=== PATIENT | female | born 1940 | race Two or more races ===

== ENCOUNTER 2017-09-11 16:42 | Inpatient (IN) | payer MEDICARE, MEDICAID ==
[~2017-09-11] VITALS: Ht 162.6 cm; Wt 35.4 kg
[2017-09-11] VITALS (7 sets, daily range): BP systolic 103–128; BP diastolic 43–58
[~2017-09-11 16:42] MED LIST: ATENOLOL50 MG ORAL; DOK100 M1 PO; FOLIC ACID1 MG ORAL; FOSAMAX70 MG ORAL; GLUCOSAMINE SU500 M2 PO; LOSARTAN POTAS100 MG ORAL; MAPAP500 M2 PO; METHOTREXATE2.5 MG PO; OMEPRAZOLE20 M2 ORAL; OYSTER SHELL C1 EA11 PO; PLAQUENIL200 MG ORAL; TRAMADOL HCL50 MG ORAL; VITAMIN B-12250 MCG PO; VITAMIN D1000 UNI1 ORAL
[2017-09-11] MEDS ORDERED: Nitroglycerin 2% oint pkt TOPIC ONE (17:00)
[2017-09-11 17:10] LABS: HEMATOCRIT 25.5 % (37.0-47.0); HEMOGLOBIN 8.4 G/DL (12.0-16.0); MEAN CORPUSCULAR VOLUME 99 FL (80-99); MONOCYTES % (AUTO) 6.6 % (1.0-10.0); NEUTROPHILS % (AUTO) 90.1 % (45.0-75.0); PLATELET COUNT 198 K/UL (150-450); RED BLOOD COUNT 2.56 M/UL (4.20-5.40); RED CELL DISTRIBUTION WIDTH 12.4 % (11.6-14.8); WHITE BLOOD COUNT 17.8 K/UL (4.8-10.8)
[2017-09-11 17:11] LABS: BASOPHILS % (AUTO) 0.3 % (0.0-2.0)
[2017-09-11 17:20] LABS: INR 1.1 (0.9-1.1)
[2017-09-11 17:24] LABS: ANION GAP 8 mmol/L (5-15); BLOOD UREA NITROGEN 38 mg/dL (7-18); CALCIUM 9.3 MG/DL (8.5-10.1); CARBON DIOXIDE 23 MMOL/L (21-32); CHLORIDE 98 MMOL/L (98-107); CREATININE 1.1 MG/DL (0.55-1.30); POTASSIUM 4.8 MMOL/L (3.5-5.1); SODIUM 129 MMOL/L (136-145)
[2017-09-11 17:35] LABS: ALANINE AMINOTRANSFERASE 122 U/L (12-78); ALBUMIN 2.4 G/DL (3.4-5.0); ALBUMIN/GLOBULIN RATIO 0.5 (1.0-2.7); ALKALINE PHOSPHATASE 547 U/L (46-116); ASPARTATE AMINO TRANSFERASE 118 U/L (15-37); BILIRUBIN,TOTAL 0.8 MG/DL (0.2-1.0); CKMB 3.4 NG/ML (0.0-3.6); CREATINE KINASE 45 U/L (26-308)
[2017-09-11 23:06] LABS: APPEARANCE,URINE SLIGHTLY CLOUDY; BILIRUBIN, URINE NEGATIVE (NEGATIVE); GLUCOSE, URINE (UA) NEGATIVE (NEGATIVE); KETONES,URINE NEGATIVE (NEGATIVE); LEUKOCYTE ESTERASE ,URINE 2+ (NEGATIVE); NITRITE,URINE POSITIVE (NEGATIVE); PH,URINE 5 (4.5-8.0); PROTEIN,URINE 1+ (NEGATIVE); UROBILINOGEN,URINE NORMAL MG/DL (0.0-1.0)
[2017-09-11 23:07] LABS: COLOR,URINE YELLOW
[2017-09-11] MEDS: Albuterol/Ipratropium 3ml neb HHN SCH (23:15)
[2017-09-11] MEDS ORDERED: Vancomycin 1 GM in D5W 275 ML IVPB ONE (23:15)
[2017-09-11] MEDS ORDERED: Albuterol/Ipratropium 3ml neb HHN PRN (23:15)
[2017-09-12] VITALS (24 sets, daily range): BP systolic 95–145; BP diastolic 41–68
--- NOTE | 2017-09-12 00:12 | Emergency Room Report ---
History of Present Illness General Chief Complaint: Dyspnea/Respdistress Source: Patient, EMS Present Illness HPI This patient presents with shortness of breath. She states that her symptoms started this morning. She denies chest pain. She denies abdominal pain. She denies recent illness. She denies cough or congestion. She had a recently been started on different psychiatric medications for some auditory hallucinations and depression. She has been seen at [facility] for this and underwent a thorough evaluation. She also had some recent development of swelling in her skin. She denies fever or chills. She denies nausea or vomiting. She denies headache or neck pain. She is brought in by EMS and per report she had oxygen saturations in the mid-80s in the field. She did have improvement on nonrebreather mask. She has no other complaints. Allergies: Coded Allergies: No Known Allergies (Verified , 11/18/08) Patient History Past Medical History: see triage record, HTN, GERD, psych hx, other - arthritis Social History: Denies: smoking, alcohol use, drug use Reviewed Nursing Documentation: PMH: Agreed, PSxH: Agreed Nursing Documentation-PMH Past Medical History: No History, Except For Hx Cardiac Problems: Yes Hx Hypertension: Yes Hx Diabetes: Yes Hx Cancer: No Hx Gastrointestinal Problems: Yes History Of Psychiatric Problem: Yes Hx Neurological Problems: No Review of Systems All Other Systems: negative except mentioned in HPI Physical Exam Vital Signs Date Time Temp Pulse Resp B/P (MAP) Pulse Ox O2 Delivery O2 Flow Rate FiO2 09/11/17 16:40 96.4 65 24 118/57 94 Non-Rebreather 15.0 96.4 09/11/17 17:06 97 Sp02 EP Interpretation: reviewed, abnormal General Appearance: no apparent distress, alert, GCS 15, non-toxic Head: normocephalic, atraumatic Eyes: bilateral eye normal inspection, bilateral eye PERRL ENT: hearing grossly normal, normal pharynx, no angioedema, normal voice Neck: full range of motion, supple/symm/no masses Respiratory: no accessory muscle use, respiratory distress, rales, rhonchi, speaking full sentences Cardiovascular #1: regular rate, rhythm, no edema Gastrointestinal: normal bowel sounds, non tender, soft, non-distended, no guarding, no rebound Rectal: deferred Musculoskeletal: back normal, normal range of motion, non-tender Neurologic: alert, responsive, motor strength/tone normal, sensory intact, speech normal Psychiatric: judgement/insight normal, memory normal, mood/affect normal, no suicidal/homicidal ideation Skin: normal color, no rash, warm/dry, well hydrated Medical Decision Making Diagnostic Impression: Primary Impression: ARDS (adult respiratory distress syndrome) Additional Impressions: Pulmonary edema Transaminitis Anemia UTI (urinary tract infection) ER Course This patient presented in respiratory distress. Chest x-ray was consistent with ARDS. She has had an elevated white blood cell count so I am concerned that she could have an underlying pneumonia. Therefore, she was given broad- spectrum antibiotics. She's also placed on BiPAP to improve her work of breathing. She had an excellent response to the BiPAP. Urinalysis is consistent with a urinary tract infection. Unsure of the etiology of the patient's ARDS. It could be influenza. The patient is admitted to the ICU. This patient is critically ill. This patient required complex medical decision- making, aggressive intervention, extensive laboratory workup and monitoring. Critical care time: 40 minutes. Laboratory Tests Test 09/11/17 16:50 09/11/17 18:06 09/11/17 22:46 White Blood Count 17.8 K/UL (4.8-10.8) H Red Blood Count 2.56 M/UL (4.20-5.40) L Hemoglobin 8.4 G/DL (12.0-16.0) L Hematocrit 25.5 % (37.0-47.0) L Mean Corpuscular Volume 99 FL (80-99) Mean Corpuscular Hemoglobin 32.8 PG (27.0-31.0) H Mean Corpuscular Hemoglobin Concent 33.0 G/DL (32.0-36.0) Red Cell Distribution Width 12.4 % (11.6-14.8) Platelet Count 198 K/UL (150-450) Mean Platelet Volume 8.5 FL (6.5-10.1) Neutrophils (%) (Auto) 90.1 % (45.0-75.0) H Lymphocytes (%) (Auto) 3.0 % (20.0-45.0) L Monocytes (%) (Auto) 6.6 % (1.0-10.0) Eosinophils (%) (Auto) 0.0 % (0.0-3.0) Basophils (%) (Auto) 0.3 % (0.0-2.0) Prothrombin Time 11.2 SEC (9.30-11.50) Prothrombin Time INR 1.1 (0.9-1.1) PTT 27 SEC (23-33) Sodium Level 129 MMOL/L (136-145) L Potassium Level 4.8 MMOL/L (3.5-5.1) Chloride Level 98 MMOL/L (98-107) Carbon Dioxide Level 23 MMOL/L (21-32) Anion Gap 8 mmol/L (5-15) Blood Urea Nitrogen 38 mg/dL (7-18) H Creatinine 1.1 MG/DL (0.55-1.30) Estimate Glomerular Filtration Rate mL/min (>60) Glucose Level 259 MG/DL (74-106) H Lactic Acid Level 1.60 mmol/L (0.66-2.22) Calcium Level 9.3 MG/DL (8.5-10.1) Total Bilirubin 0.8 MG/DL (0.2-1.0) Aspartate Amino Transferase (AST) 118 U/L (15-37) H Alanine Aminotransferase (ALT) 122 U/L (12-78) H Alkaline Phosphatase 547 U/L (46-116) H Total Creatine Kinase 45 U/L (26-308) Creatine Kinase MB 3.4 NG/ML (0.0-3.6) Creatine Kinase MB Relative Index 7.5 Troponin I 0.000 ng/mL (0.000-0.056) Pro-B-Type Natriuretic Peptide 6971 pg/mL (0-125) H Total Protein 7.0 G/DL (6.4-8.2) Albumin 2.4 G/DL (3.4-5.0) L Globulin 4.6 g/dL Albumin/Globulin Ratio 0.5 (1.0-2.7) L Arterial Blood pH 7.373 (7.350-7.450) Arterial Blood Partial Pressure CO2 35.7 mmHg (35.0-45.0) Arterial Blood Partial Pressure O2 112.0 mmHg (75.0-100.0) H Arterial Blood HCO3 20.3 mmol/L (22.0-26.0) L Arterial Blood Oxygen Saturation 97.4 % (92.0-98.0) Arterial Blood Base Excess -4.4 Luis A Test Positive Urine Color Yellow Urine Appearance Slightly cloudy Urine pH 5 (4.5-8.0) Urine Specific [place] 1.010 (1.005-1.035) Urine Protein 1+ (NEGATIVE) H Urine Glucose (UA) Negative (NEGATIVE) Urine Ketones Negative (NEGATIVE) Urine Occult Blood 3+ (NEGATIVE) H Urine Nitrite Positive (NEGATIVE) H Urine Bilirubin Negative (NEGATIVE) Urine Urobilinogen Normal MG/DL (0.0-1.0) Urine Leukocyte Esterase 2+ (NEGATIVE) H Urine RBC 2-4 /HPF (0 - 2) H Urine WBC 5-10 /HPF (0 - 2) H Urine Squamous Epithelial Cells Occasional /LPF Urine Bacteria Many /HPF (NONE) H Microbiology Date/Time Source Procedure Growth Status 09/11/17 17:30 Nasal Nares Influenza Types A,B Antigen (MOOKIE) - Final Complete EKG Diagnostic Results Rate: normal Rhythm: NSR ST Segments: no acute changes Rhythm Strip Diag. Results EP Interpretation: yes Rate: 60's Rhythm: NSR, no PVC's, no ectopy Chest X-Ray Diagnostic Results Chest X-Ray Diagnostic Results : Chest X-Ray Ordered: Yes # of Views/Limited/Complete: 1 View Indication: Shortness of Breath EP Interpretation: Yes Interpretation: other - diffuse opacities Last Vital Signs Date Time Temp Pulse Resp B/P (MAP) Pulse Ox O2 Delivery O2 Flow Rate FiO2 09/11/17 23:35 96.9 69 20 128/48 96 Bi-pap 15.0 100 96.9 Disposition: ADMITTED INPATIENT Condition: Critical Referrals: PRABHU BULL (PCP) CHRISTY SANCHEZ D.O. Sep 12, 2017 00:12
[2017-09-12] MEDS ORDERED: Vancomycin 1gm inj IVPB ONE (00:48)
[2017-09-12] MEDS ORDERED: Zosyn 3.375gm inj ONE (00:48)
[2017-09-12] MEDS: Piperacillin/Tazobactam 3.375 GM in NS 110 ML IVPB SCH ×3 (01:04→15:04)
[2017-09-12] MEDS: D5NS 1,000 ML IV SCH ×3 (01:04→20:00)
[2017-09-12 05:28] LABS: HEMATOCRIT 24.7 % (37.0-47.0); HEMOGLOBIN 8.5 G/DL (12.0-16.0); MEAN CORPUSCULAR VOLUME 100 FL (80-99); PLATELET COUNT 164 K/UL (150-450); RED BLOOD COUNT 2.47 M/UL (4.20-5.40); RED CELL DISTRIBUTION WIDTH 12.1 % (11.6-14.8); WHITE BLOOD COUNT 21.5 K/UL (4.8-10.8)
[2017-09-12] MEDS ORDERED: Heparin 5000 units/ml inj SUBQ SCH (06:00)
[2017-09-12 06:18] LABS: ALANINE AMINOTRANSFERASE 91 U/L (12-78); ALBUMIN 2.1 G/DL (3.4-5.0); ALBUMIN/GLOBULIN RATIO 0.5 (1.0-2.7); ALKALINE PHOSPHATASE 427 U/L (46-116); ANION GAP 13 mmol/L (5-15); ASPARTATE AMINO TRANSFERASE 62 U/L (15-37); BILIRUBIN,TOTAL 0.6 MG/DL (0.2-1.0); BLOOD UREA NITROGEN 33 mg/dL (7-18); CALCIUM 9.1 MG/DL (8.5-10.1); CARBON DIOXIDE 20 MMOL/L (21-32); CHLORIDE 101 MMOL/L (98-107); PHOSPHORUS 4.6 MG/DL (2.5-4.9); POTASSIUM 4.8 MMOL/L (3.5-5.1); SODIUM 134 MMOL/L (136-145)
[2017-09-12] MEDS: Albuterol/Ipratropium 3ml neb HHN SCH ×3 (07:48→22:36)
[2017-09-12] MEDS: Heparin 5000 units/ml inj SUBQ SCH ×2 (08:12→17:00)
--- NOTE | 2017-09-12 10:14 | History & Physical ---
History and Physical History & Physicial Jesus Barahona MD Sep 12, 2017 10:14
--- NOTE | 2017-09-12 10:18 | Cardiac Electrophysiology PN ---
Subjective Subjective [id number]. Cardiology Consult dictated and DW CHIEF INFORMATICS OFFICER and Jun Objective Last 24 Hour Vital Signs Date Time Temp Pulse Resp B/P (MAP) Pulse Ox O2 Delivery O2 Flow Rate FiO2 09/12/17 09:00 69 09/12/17 09:00 72 35 107/52 95 Bi-pap 100 09/12/17 08:00 100 09/12/17 08:00 98.8 71 33 114/42 97 Bi-pap 100 98.8 09/12/17 07:51 68 35 97 Bi-pap 100 09/12/17 07:01 72 34 96 Facial 100 09/12/17 07:00 68 33 108/46 98 Bi-pap 100 09/12/17 06:00 68 33 118/42 98 Bi-pap 100 09/12/17 05:30 64 39 99 Facial 100 09/12/17 05:00 65 32 98/55 99 Bi-pap 100 09/12/17 04:00 98.1 67 25 95/55 97 Bi-pap 100 98.1 09/12/17 04:00 69 09/12/17 03:31 66 40 99 Facial 100 09/12/17 03:00 68 27 100/54 98 Bi-pap 100 09/12/17 02:00 67 27 116/44 100 Bi-pap 100 09/12/17 01:23 67 38 97 Facial 100 09/12/17 01:00 97.9 67 32 123/49 99 Bi-pap 100 97.9 09/12/17 01:00 100 09/12/17 01:00 100 09/12/17 00:35 96.9 63 20 113/68 95 Bi-pap 15.0 100 96.9 09/12/17 00:31 96.9 63 20 113/68 95 Bi-pap 15.0 100 96.9 09/12/17 00:30 70 09/11/17 23:35 96.9 69 20 128/48 96 Bi-pap 15.0 100 96.9 09/11/17 23:01 60 40 100 Facial 100 09/11/17 22:18 96.9 62 33 117/58 98 Bi-pap 15.0 100 96.9 09/11/17 21:30 96.9 62 31 126/45 100 Bi-pap 15.0 100 96.9 09/11/17 21:30 62 30 100 Facial 100 09/11/17 20:30 96.9 62 33 125/45 99 Bi-pap 15.0 100 96.9 09/11/17 19:30 15.0 100 09/11/17 19:29 96.9 60 31 122/53 100 Bi-pap 15.0 100 96.9 09/11/17 18:32 60 25 100 Facial 100 09/11/17 18:29 96.4 61 24 103/48 99 Bi-pap 15.0 100 96.4 09/11/17 17:06 96.4 71 35 121/43 97 Non-Rebreather 15.0 96.4 09/11/17 17:06 71 35 Non-Rebreather 15.0 97 09/11/17 16:40 96.4 65 24 118/57 94 Non-Rebreather 15.0 96.4 Intake and Output 09/11/17 09/12/17 19:00 07:00 Intake Total 532.5 ml Balance 532.5 ml Intake IV Total 532.5 ml # Voids 1 Laboratory Tests Test 09/11/17 16:50 09/11/17 18:06 09/11/17 22:46 09/12/17 04:45 White Blood Count 17.8 K/UL (4.8-10.8) H 21.5 K/UL (4.8-10.8) H Red Blood Count 2.56 M/UL (4.20-5.40) L 2.47 M/UL (4.20-5.40) L Hemoglobin 8.4 G/DL (12.0-16.0) L 8.5 G/DL (12.0-16.0) L Hematocrit 25.5 % (37.0-47.0) L 24.7 % (37.0-47.0) L Mean Corpuscular Volume 99 FL (80-99) 100 FL (80-99) H Mean Corpuscular Hemoglobin 32.8 PG (27.0-31.0) H 34.4 PG (27.0-31.0) H Mean Corpuscular Hemoglobin Concent 33.0 G/DL (32.0-36.0) 34.4 G/DL (32.0-36.0) Red Cell Distribution Width 12.4 % (11.6-14.8) 12.1 % (11.6-14.8) Platelet Count 198 K/UL (150-450) 164 K/UL (150-450) Mean Platelet Volume 8.5 FL (6.5-10.1) 8.8 FL (6.5-10.1) Neutrophils (%) (Auto) 90.1 % (45.0-75.0) H % (45.0-75.0) Lymphocytes (%) (Auto) 3.0 % (20.0-45.0) L % (20.0-45.0) Monocytes (%) (Auto) 6.6 % (1.0-10.0) % (1.0-10.0) Eosinophils (%) (Auto) 0.0 % (0.0-3.0) % (0.0-3.0) Basophils (%) (Auto) 0.3 % (0.0-2.0) % (0.0-2.0) Prothrombin Time 11.2 SEC (9.30-11.50) Prothromb Time International Ratio 1.1 (0.9-1.1) Activated Partial Thromboplast Time 27 SEC (23-33) Sodium Level 129 MMOL/L (136-145) L 134 MMOL/L (136-145) L Potassium Level 4.8 MMOL/L (3.5-5.1) 4.8 MMOL/L (3.5-5.1) Chloride Level 98 MMOL/L (98-107) 101 MMOL/L (98-107) Carbon Dioxide Level 23 MMOL/L (21-32) 20 MMOL/L (21-32) L Anion Gap 8 mmol/L (5-15) 13 mmol/L (5-15) Blood Urea Nitrogen 38 mg/dL (7-18) H 33 mg/dL (7-18) H Creatinine 1.1 MG/DL (0.55-1.30) 1.0 MG/DL (0.55-1.30) Estimat Glomerular Filtration Rate mL/min (>60) mL/min (>60) Glucose Level 259 MG/DL (74-106) H 153 MG/DL (74-106) #H Lactic Acid Level 1.60 mmol/L (0.66-2.22) Calcium Level 9.3 MG/DL (8.5-10.1) 9.1 MG/DL (8.5-10.1) Total Bilirubin 0.8 MG/DL (0.2-1.0) 0.6 MG/DL (0.2-1.0) Aspartate Amino Transf (AST/SGOT) 118 U/L (15-37) H 62 U/L (15-37) H Alanine Aminotransferase (ALT/SGPT) 122 U/L (12-78) H 91 U/L (12-78) H Alkaline Phosphatase 547 U/L (46-116) H 427 U/L (46-116) H Total Creatine Kinase 45 U/L (26-308) Creatine Kinase MB 3.4 NG/ML (0.0-3.6) Creatine Kinase MB Relative Index 7.5 Troponin I 0.000 ng/mL (0.000-0.056) 0.000 ng/mL (0.000-0.056) Pro-B-Type Natriuretic Peptide 6971 pg/mL (0-125) H Total Protein 7.0 G/DL (6.4-8.2) 6.4 G/DL (6.4-8.2) Albumin 2.4 G/DL (3.4-5.0) L 2.1 G/DL (3.4-5.0) L Globulin 4.6 g/dL 4.3 g/dL Albumin/Globulin Ratio 0.5 (1.0-2.7) L 0.5 (1.0-2.7) L Arterial Blood pH 7.373 (7.350-7.450) Arterial Blood Partial Pressure CO2 35.7 mmHg (35.0-45.0) Arterial Blood Partial Pressure O2 112.0 mmHg (75.0-100.0) H Arterial Blood HCO3 20.3 mmol/L (22.0-26.0) L Arterial Blood Oxygen Saturation 97.4 % (92.0-98.0) Arterial Blood Base Excess -4.4 Luis A Test Positive Urine Color Yellow Urine Appearance Slightly cloudy Urine pH 5 (4.5-8.0) Urine Specific [place] 1.010 (1.005-1.035) Urine Protein 1+ (NEGATIVE) H Urine Glucose (UA) Negative (NEGATIVE) Urine Ketones Negative (NEGATIVE) Urine Occult Blood 3+ (NEGATIVE) H Urine Nitrite Positive (NEGATIVE) H Urine Bilirubin Negative (NEGATIVE) Urine Urobilinogen Normal MG/DL (0.0-1.0) Urine Leukocyte Esterase 2+ (NEGATIVE) H Urine RBC 2-4 /HPF (0 - 2) H Urine WBC 5-10 /HPF (0 - 2) H Urine Squamous Epithelial Cells Occasional /LPF Urine Bacteria Many /HPF (NONE) H Differential Total Cells Counted 100 Neutrophils % (Manual) 94 % (45-75) H Lymphocytes % (Manual) 2 % (20-45) L Monocytes % (Manual) 4 % (1-10) Eosinophils % (Manual) 0 % (0-3) Basophils % (Manual) 0 % (0-2) Band Neutrophils 0 % (0-8) Platelet Estimate Adequate Platelet Morphology Normal Hypochromasia 1+ Macrocytosis 1+ Phosphorus Level 4.6 MG/DL (2.5-4.9) Magnesium Level 1.8 MG/DL (1.8-2.4) Test 09/12/17 06:00 Arterial Blood pH 7.374 (7.350-7.450) Arterial Blood Partial Pressure CO2 35.5 mmHg (35.0-45.0) Arterial Blood Partial Pressure O2 72.5 mmHg (75.0-100.0) L Arterial Blood HCO3 20.2 mmol/L (22.0-26.0) L Arterial Blood Oxygen Saturation 93.4 % (92.0-98.0) Arterial Blood Base Excess -4.4 Luis A Test Positive Microbiology Date/Time Source Procedure Growth Status 09/11/17 17:30 Nasal Nares Influenza Types A,B Antigen (MOOKIE) - Final Complete 09/11/17 22:46 Urine,Clean Catch Urine Culture - Preliminary Gram Negative Bacillus 1 Resulted ROLF OLIVIA Sep 12, 2017 10:18
--- NOTE | 2017-09-12 10:40 | Pulmonolgy Critical Care Note ---
Critical Care - Asmt/Plan Problems: (1) ARDS (adult respiratory distress syndrome) (2) Aspiration pneumonia (3) Protein-calorie malnutrition, severe (4) Diabetes mellitus (5) Anemia Respiratory: monitor respiratory rate, adjust FIO2, CXR, other - titrate bipap Cardiac: continue to monitor HR/BP Renal: F/U I&O, check electrolytes Infectious Disease: check cultures, continue antibiotics Gastrointestinal: hold feedings, other - NGtube feeding, Nutrition consult Endocrine: monitor blood sugar, continue sliding scale insulin Hematologic: monitor H/H, transfuse if hgb<8.5 Neurologic: PRN Ativan Affect: PRN ativan Prophylaxis: Protonix Time Spent (Minutes): 40 Notes Reviewed: tax intern Discussed with: nurses, consultants, complex case managerrecreation facility manager - Objective Last 24 Hour Vital Signs Date Time Temp Pulse Resp B/P (MAP) Pulse Ox O2 Delivery O2 Flow Rate FiO2 09/12/17 09:00 69 09/12/17 09:00 72 35 107/52 95 Bi-pap 100 09/12/17 08:00 100 09/12/17 08:00 98.8 71 33 114/42 97 Bi-pap 100 98.8 09/12/17 07:51 68 35 97 Bi-pap 100 09/12/17 07:01 72 34 96 Facial 100 09/12/17 07:00 68 33 108/46 98 Bi-pap 100 09/12/17 06:00 68 33 118/42 98 Bi-pap 100 09/12/17 05:30 64 39 99 Facial 100 09/12/17 05:00 65 32 98/55 99 Bi-pap 100 09/12/17 04:00 98.1 67 25 95/55 97 Bi-pap 100 98.1 09/12/17 04:00 69 09/12/17 03:31 66 40 99 Facial 100 09/12/17 03:00 68 27 100/54 98 Bi-pap 100 09/12/17 02:00 67 27 116/44 100 Bi-pap 100 09/12/17 01:23 67 38 97 Facial 100 09/12/17 01:00 97.9 67 32 123/49 99 Bi-pap 100 97.9 09/12/17 01:00 100 09/12/17 01:00 100 09/12/17 00:35 96.9 63 20 113/68 95 Bi-pap 15.0 100 96.9 09/12/17 00:31 96.9 63 20 113/68 95 Bi-pap 15.0 100 96.9 09/12/17 00:30 70 09/11/17 23:35 96.9 69 20 128/48 96 Bi-pap 15.0 100 96.9 09/11/17 23:01 60 40 100 Facial 100 09/11/17 22:18 96.9 62 33 117/58 98 Bi-pap 15.0 100 96.9 09/11/17 21:30 96.9 62 31 126/45 100 Bi-pap 15.0 100 96.9 09/11/17 21:30 62 30 100 Facial 100 09/11/17 20:30 96.9 62 33 125/45 99 Bi-pap 15.0 100 96.9 09/11/17 19:30 15.0 100 09/11/17 19:29 96.9 60 31 122/53 100 Bi-pap 15.0 100 96.9 09/11/17 18:32 60 25 100 Facial 100 09/11/17 18:29 96.4 61 24 103/48 99 Bi-pap 15.0 100 96.4 09/11/17 17:06 96.4 71 35 121/43 97 Non-Rebreather 15.0 96.4 09/11/17 17:06 71 35 Non-Rebreather 15.0 97 09/11/17 16:40 96.4 65 24 118/57 94 Non-Rebreather 15.0 96.4 Status: awake Condition: critical HEENT: atraumatic Lungs: clear Heart: HR/BP stable Abdomen: soft, active bowel sounds Extremities: no C/C/E, edema Decubiti: location Micro: Microbiology Date/Time Source Procedure Growth Status 09/11/17 17:30 Nasal Nares Influenza Types A,B Antigen (MOOKIE) - Final Complete 09/11/17 22:46 Urine,Clean Catch Urine Culture - Preliminary Gram Negative Bacillus 1 Resulted Critical Care - Subjective ROS Limited/Unobtainable: Yes ICU Day: 1 Interval Events: 76 year old female with hx of DM, presented from home with shortness of breath. She states that her symptoms started this morning. She denies cough or congestion. She had a recently been started on different psychiatric medications for some auditory hallucinations and depression. She is brought in by EMS and per report she had oxygen saturations in the mid-80s in the field. She did have improvement on nonrebreather mask. Her CXR in er showed extensive infiltrate. She was put on BIPAP and sent to ICU. Condition: critical EKG Rhythm: Sinus Rhythm FI02: 100 Vent Support Mode: BiLevel Fluids: d5 NS 75 cc/hour I&O: Intake and Output 09/11/17 09/12/17 19:00 07:00 Intake Total 532.5 ml Balance 532.5 ml Intake IV Total 532.5 ml # Voids 1 CXR: extensive patchy multi-nodular infiltrate Labs: Laboratory Tests Test 09/11/17 16:50 09/11/17 18:06 09/11/17 22:46 09/12/17 04:45 White Blood Count 17.8 K/UL (4.8-10.8) H 21.5 K/UL (4.8-10.8) H Red Blood Count 2.56 M/UL (4.20-5.40) L 2.47 M/UL (4.20-5.40) L Hemoglobin 8.4 G/DL (12.0-16.0) L 8.5 G/DL (12.0-16.0) L Hematocrit 25.5 % (37.0-47.0) L 24.7 % (37.0-47.0) L Mean Corpuscular Volume 99 FL (80-99) 100 FL (80-99) H Mean Corpuscular Hemoglobin 32.8 PG (27.0-31.0) H 34.4 PG (27.0-31.0) H Mean Corpuscular Hemoglobin Concent 33.0 G/DL (32.0-36.0) 34.4 G/DL (32.0-36.0) Red Cell Distribution Width 12.4 % (11.6-14.8) 12.1 % (11.6-14.8) Platelet Count 198 K/UL (150-450) 164 K/UL (150-450) Mean Platelet Volume 8.5 FL (6.5-10.1) 8.8 FL (6.5-10.1) Neutrophils (%) (Auto) 90.1 % (45.0-75.0) H % (45.0-75.0) Lymphocytes (%) (Auto) 3.0 % (20.0-45.0) L % (20.0-45.0) Monocytes (%) (Auto) 6.6 % (1.0-10.0) % (1.0-10.0) Eosinophils (%) (Auto) 0.0 % (0.0-3.0) % (0.0-3.0) Basophils (%) (Auto) 0.3 % (0.0-2.0) % (0.0-2.0) Prothrombin Time 11.2 SEC (9.30-11.50) Prothromb Time International Ratio 1.1 (0.9-1.1) Activated Partial Thromboplast Time 27 SEC (23-33) Sodium Level 129 MMOL/L (136-145) L 134 MMOL/L (136-145) L Potassium Level 4.8 MMOL/L (3.5-5.1) 4.8 MMOL/L (3.5-5.1) Chloride Level 98 MMOL/L (98-107) 101 MMOL/L (98-107) Carbon Dioxide Level 23 MMOL/L (21-32) 20 MMOL/L (21-32) L Anion Gap 8 mmol/L (5-15) 13 mmol/L (5-15) Blood Urea Nitrogen 38 mg/dL (7-18) H 33 mg/dL (7-18) H Creatinine 1.1 MG/DL (0.55-1.30) 1.0 MG/DL (0.55-1.30) Estimat Glomerular Filtration Rate mL/min (>60) mL/min (>60) Glucose Level 259 MG/DL (74-106) H 153 MG/DL (74-106) #H Lactic Acid Level 1.60 mmol/L (0.66-2.22) Calcium Level 9.3 MG/DL (8.5-10.1) 9.1 MG/DL (8.5-10.1) Total Bilirubin 0.8 MG/DL (0.2-1.0) 0.6 MG/DL (0.2-1.0) Aspartate Amino Transf (AST/SGOT) 118 U/L (15-37) H 62 U/L (15-37) H Alanine Aminotransferase (ALT/SGPT) 122 U/L (12-78) H 91 U/L (12-78) H Alkaline Phosphatase 547 U/L (46-116) H 427 U/L (46-116) H Total Creatine Kinase 45 U/L (26-308) Creatine Kinase MB 3.4 NG/ML (0.0-3.6) Creatine Kinase MB Relative Index 7.5 Troponin I 0.000 ng/mL (0.000-0.056) 0.000 ng/mL (0.000-0.056) Pro-B-Type Natriuretic Peptide 6971 pg/mL (0-125) H Total Protein 7.0 G/DL (6.4-8.2) 6.4 G/DL (6.4-8.2) Albumin 2.4 G/DL (3.4-5.0) L 2.1 G/DL (3.4-5.0) L Globulin 4.6 g/dL 4.3 g/dL Albumin/Globulin Ratio 0.5 (1.0-2.7) L 0.5 (1.0-2.7) L Arterial Blood pH 7.373 (7.350-7.450) Arterial Blood Partial Pressure CO2 35.7 mmHg (35.0-45.0) Arterial Blood Partial Pressure O2 112.0 mmHg (75.0-100.0) H Arterial Blood HCO3 20.3 mmol/L (22.0-26.0) L Arterial Blood Oxygen Saturation 97.4 % (92.0-98.0) Arterial Blood Base Excess -4.4 Luis A Test Positive Urine Color Yellow Urine Appearance Slightly cloudy Urine pH 5 (4.5-8.0) Urine Specific [place] 1.010 (1.005-1.035) Urine Protein 1+ (NEGATIVE) H Urine Glucose (UA) Negative (NEGATIVE) Urine Ketones Negative (NEGATIVE) Urine Occult Blood 3+ (NEGATIVE) H Urine Nitrite Positive (NEGATIVE) H Urine Bilirubin Negative (NEGATIVE) Urine Urobilinogen Normal MG/DL (0.0-1.0) Urine Leukocyte Esterase 2+ (NEGATIVE) H Urine RBC 2-4 /HPF (0 - 2) H Urine WBC 5-10 /HPF (0 - 2) H Urine Squamous Epithelial Cells Occasional /LPF Urine Bacteria Many /HPF (NONE) H Differential Total Cells Counted 100 Neutrophils % (Manual) 94 % (45-75) H Lymphocytes % (Manual) 2 % (20-45) L Monocytes % (Manual) 4 % (1-10) Eosinophils % (Manual) 0 % (0-3) Basophils % (Manual) 0 % (0-2) Band Neutrophils 0 % (0-8) Platelet Estimate Adequate Platelet Morphology Normal Hypochromasia 1+ Macrocytosis 1+ Phosphorus Level 4.6 MG/DL (2.5-4.9) Magnesium Level 1.8 MG/DL (1.8-2.4) Test 09/12/17 06:00 Arterial Blood pH 7.374 (7.350-7.450) Arterial Blood Partial Pressure CO2 35.5 mmHg (35.0-45.0) Arterial Blood Partial Pressure O2 72.5 mmHg (75.0-100.0) L Arterial Blood HCO3 20.2 mmol/L (22.0-26.0) L Arterial Blood Oxygen Saturation 93.4 % (92.0-98.0) Arterial Blood Base Excess -4.4 Luis A Test Positive ARUNA VANEGAS Sep 12, 2017 10:40
[2017-09-12] MEDS ORDERED: LORazepam Inj 2mg/ml 1ml IV PRN (10:45)
--- NOTE | 2017-09-12 11:15 | Diagnostic Imaging Report ---
Indication: Dyspnea Comparison: 11/08/2008 A single view chest radiograph was obtained. Findings: Extensive airspace disease demonstrated within the lungs bilaterally with air bronchograms. Heart is enlarged. Bones are osteopenic. No pleural effusion identified. IMPRESSION: Extensive bilateral airspace disease. Pulmonary edema versus infiltrates. Please correlate clinically.
--- NOTE | 2017-09-12 11:55 | Diagnostic Imaging Report ---
Indication: Dyspnea Comparison: 09/11/2017 A single view chest radiograph was obtained. Findings: Extensive bilateral infiltrates versus pulmonary edema demonstrated. Heart is mildly enlarged. The bones are slightly osteopenic. IMPRESSION: No significant global climate change researcher one day
--- NOTE | 2017-09-12 13:21 | Diagnostic Imaging Report ---
Indication: NG tube placement Comparison: None Single view of the abdomen obtained Findings: NG tube is in good position well situated in the stomach. There is relative absence of bowel gas. Extensive opacities within the lungs demonstrated bilaterally. Bones are osteopenic. There is abnormality of the right ilium not well characterized on this examination but probably fundraising sale representative of an old fracture. IMPRESSION: NG tube in good position. Other findings as above
--- NOTE | 2017-09-12 14:47 | General Progress Note ---
Assessment/Plan Assessment/Plan Assessment - Resp failure / ARDS - Abnormal LFT - Anemia - Malnutrition Recommendations - Begin NGT feeds, advance slowly - check abd u/s - check CPK - Elevate HOB - Vent care - Monitor H&H - PPI - Check OB Thank You Yair Encinas MD Subjective Allergies: Coded Allergies: No Known Allergies (Verified , 11/18/08) Objective Last 24 Hour Vital Signs Date Time Temp Pulse Resp B/P (MAP) Pulse Ox O2 Delivery O2 Flow Rate FiO2 09/12/17 13:11 72 34 97 Facial 90 09/12/17 12:00 98.6 70 26 110/44 97 Bi-pap 100 98.6 09/12/17 12:00 100 09/12/17 11:00 71 29 118/41 97 Bi-pap 100 09/12/17 10:48 76 33 99 Facial 100 09/12/17 10:00 72 31 110/60 96 Bi-pap 100 09/12/17 09:00 69 09/12/17 09:00 72 35 107/52 95 Bi-pap 100 09/12/17 08:00 100 09/12/17 08:00 98.8 71 33 114/42 97 Bi-pap 100 98.8 09/12/17 07:51 68 35 97 Bi-pap 100 09/12/17 07:01 72 34 96 Facial 100 09/12/17 07:00 68 33 108/46 98 Bi-pap 100 09/12/17 06:00 68 33 118/42 98 Bi-pap 100 09/12/17 05:30 64 39 99 Facial 100 09/12/17 05:00 65 32 98/55 99 Bi-pap 100 09/12/17 04:00 98.1 67 25 95/55 97 Bi-pap 100 98.1 09/12/17 04:00 69 09/12/17 03:31 66 40 99 Facial 100 09/12/17 03:00 68 27 100/54 98 Bi-pap 100 09/12/17 02:00 67 27 116/44 100 Bi-pap 100 09/12/17 01:23 67 38 97 Facial 100 09/12/17 01:00 97.9 67 32 123/49 99 Bi-pap 100 97.9 09/12/17 01:00 100 09/12/17 01:00 100 09/12/17 00:35 96.9 63 20 113/68 95 Bi-pap 15.0 100 96.9 09/12/17 00:31 96.9 63 20 113/68 95 Bi-pap 15.0 100 96.9 09/12/17 00:30 70 09/11/17 23:35 96.9 69 20 128/48 96 Bi-pap 15.0 100 96.9 09/11/17 23:01 60 40 100 Facial 100 09/11/17 22:18 96.9 62 33 117/58 98 Bi-pap 15.0 100 96.9 09/11/17 21:30 96.9 62 31 126/45 100 Bi-pap 15.0 100 96.9 09/11/17 21:30 62 30 100 Facial 100 09/11/17 20:30 96.9 62 33 125/45 99 Bi-pap 15.0 100 96.9 09/11/17 19:30 15.0 100 09/11/17 19:29 96.9 60 31 122/53 100 Bi-pap 15.0 100 96.9 09/11/17 18:32 60 25 100 Facial 100 09/11/17 18:29 96.4 61 24 103/48 99 Bi-pap 15.0 100 96.4 09/11/17 17:06 96.4 71 35 121/43 97 Non-Rebreather 15.0 96.4 09/11/17 17:06 71 35 Non-Rebreather 15.0 97 09/11/17 16:40 96.4 65 24 118/57 94 Non-Rebreather 15.0 96.4 Intake and Output 09/11/17 09/12/17 19:00 07:00 Intake Total 532.5 ml Balance 532.5 ml Intake IV Total 532.5 ml # Voids 1 Laboratory Tests 09/11/17 16:50: White Blood Count 17.8H, Red Blood Count 2.56L, Hemoglobin 8.4L, Hematocrit 25.5L, Mean Corpuscular Volume 99, Mean Corpuscular Hemoglobin 32.8H, Mean Corpuscular Hemoglobin Concent 33.0, Red Cell Distribution Width 12.4, Platelet Count 198, Mean Platelet Volume 8.5, Neutrophils (%) (Auto) 90.1H, Lymphocytes ( %) (Auto) 3.0L, Monocytes (%) (Auto) 6.6, Eosinophils (%) (Auto) 0.0, Basophils (%) (Auto) 0.3, Prothrombin Time 11.2, Prothromb Time International Ratio 1.1, Activated Partial Thromboplast Time 27, Sodium Level 129L, Potassium Level 4.8, Chloride Level 98, Carbon Dioxide Level 23, Anion Gap 8, Blood Urea Nitrogen 38H , Creatinine 1.1, Estimat Glomerular Filtration Rate , Glucose Level 259H, Lactic Acid Level 1.60, Calcium Level 9.3, Total Bilirubin 0.8, Aspartate Amino Transf (AST/SGOT) 118H, Alanine Aminotransferase (ALT/SGPT) 122H, Alkaline Phosphatase 547H, Total Creatine Kinase 45, Creatine Kinase MB 3.4, Creatine Kinase MB Relative Index 7.5, Troponin I 0.000, Pro-B-Type Natriuretic Peptide 6971H, Total Protein 7.0, Albumin 2.4L, Globulin 4.6, Albumin/Globulin Ratio 0.5L 09/11/17 18:06: Arterial Blood pH 7.373, Arterial Blood Partial Pressure CO2 35.7, Arterial Blood Partial Pressure O2 112.0H, Arterial Blood HCO3 20.3L, Arterial Blood Oxygen Saturation 97.4, Arterial Blood Base Excess -4.4, Luis A Test Positive 09/11/17 22:46: Urine Color Yellow, Urine Appearance Slightly cloudy, Urine pH 5, Urine Specific Lesage 1.010, Urine Protein 1+H, Urine Glucose (UA) Negative, Urine Ketones Negative, Urine Occult Blood 3+H, Urine Nitrite PositiveH, Urine Bilirubin Negative, Urine Urobilinogen Normal, Urine Leukocyte Esterase 2+H, Urine RBC 2-4H, Urine WBC 5-10H, Urine Squamous Epithelial Cells Occasional, Urine Bacteria ManyH 09/12/17 04:45: White Blood Count 21.5H, Red Blood Count 2.47L, Hemoglobin 8.5L, Hematocrit 24.7L, Mean Corpuscular Volume 100H, Mean Corpuscular Hemoglobin 34.4H, Mean Corpuscular Hemoglobin Concent 34.4, Red Cell Distribution Width 12.1, Platelet Count 164, Mean Platelet Volume 8.8, Neutrophils (%) (Auto) , Lymphocytes (%) ( Auto) , Monocytes (%) (Auto) , Eosinophils (%) (Auto) , Basophils (%) (Auto) , Sodium Level 134L, Potassium Level 4.8, Chloride Level 101, Carbon Dioxide Level 20L, Anion Gap 13, Blood Urea Nitrogen 33H, Creatinine 1.0, Estimat Glomerular Filtration Rate , Glucose Level 153#H, Calcium Level 9.1, Total Bilirubin 0.6, Aspartate Amino Transf (AST/SGOT) 62H, Alanine Aminotransferase ( ALT/SGPT) 91H, Alkaline Phosphatase 427H, Troponin I 0.000, Total Protein 6.4, Albumin 2.1L, Globulin 4.3, Albumin/Globulin Ratio 0.5L, Differential Total Cells Counted 100, Neutrophils % (Manual) 94H, Lymphocytes % (Manual) 2L, Monocytes % (Manual) 4, Eosinophils % (Manual) 0, Basophils % (Manual) 0, Band Neutrophils 0, Platelet Estimate Adequate, Platelet Morphology Normal, Hypochromasia 1+, Macrocytosis 1+, Phosphorus Level 4.6, Magnesium Level 1.8 09/12/17 06:00: Arterial Blood pH 7.374, Arterial Blood Partial Pressure CO2 35.5, Arterial Blood Partial Pressure O2 72.5L, Arterial Blood HCO3 20.2L, Arterial Blood Oxygen Saturation 93.4, Arterial Blood Base Excess -4.4, Luis A Test Positive Height (Feet): 5 Height (Inches): 0.00 Weight (Pounds): 77 YAIR ENCINAS Sep 12, 2017 14:47
--- NOTE | 2017-09-12 17:45 | History and Physical Report ---
DATE OF ADMISSION: 09/11/2017 CHIEF COMPLAINT: Respiratory distress, failure. HISTORY OF PRESENT ILLNESS: This is a 76-year-old, very delightful Slov[place] female with past medical history significant for rheumatoid arthritis, osteoporosis, hypertension, Anaplastic anemia, depression, and Parkinson disease, who was presented to the hospital from home after it was noted to have shortness of breath progressively worsening over the past 24 hours. The patient was recently residing at the half-way prior to that was at [facility] due to the hallucination, was started on the medication and she was stable for the hallucination. She denies any chest pain or abdominal pain, occasional cough, complained about chest congestion. Denies any suicidal or homicidal ideation. She had a history of auditory hallucination and depression. Shortly after initial evaluation in the emergency, the patient was noted in the respiratory failure and BiPAP was started. The patient was noted to have oxygen saturation of 80% on the field and improving with non-rebreather mask. After initial evaluation in the ER, the patient was admitted to the ICU with acute hypoxemic respiratory failure. PAST MEDICAL HISTORY AND PAST SURGICAL HISTORY: As above, history of hypertension, GERD, history of auditory hallucination with depression, Anaplastic anemia and rheumatoid arthritis. MEDICATIONS: Medications at home, please refer to medication reconciliation list including acetaminophen, Fosamax, atenolol, calcium with vitamin D, vitamin B12, docusate, folic acid, glucosamine, Plaquenil, losartan, methotrexate, omeprazole and tramadol. ALLERGIES: No known drug allergies. SOCIAL HISTORY: Denies any smoking, alcohol, or drugs. She lives with a sister and a brother very hands-on involved with the care of the patient. FAMILY HISTORY: Noncontributory. REVIEW OF SYSTEMS: Mostly as above. Denies any dysuria, frequency, or hematuria. Denies any hemoptysis or hematochezia. Denies any suicidal or homicidal ideation. Occasional auditory hallucination. Denies any loss of consciousness. Denies any double vision. Denies any hemoptysis. Denies any bright red blood per rectum. PHYSICAL EXAMINATION: VITAL SIGNS: On admission, temperature 96.4 degrees, pulse of 65, respirations 24, and blood pressure 118/57. GENERAL: The patient is awake, responsive, no acute distress on the BiPAP. HEENT: Pupils are reactive to light. Anicteric. NECK: Supple. No JVD. LUNGS: Good air entry. No wheezing or rales, but the patient has crackles on the lower baseline. ABDOMEN: Soft, nondistended, and nontender. Positive bowel sounds. EXTREMITIES: No cyanosis or clubbing. There is 1+ edema of bilateral lower extremity. NEUROLOGIC: Cranial nerves II through XII grossly intact. Motor is 5/5 in all extremities. Gait was not assessed due to the patient's status. LABORATORY AND DIAGNOSTIC DATA: On admission from ER is significant for WBC of 17.8, hemoglobin 8.4, hematocrit 25 and platelet is 198,000. ABG, pH 7.37, pCO2 of 35, pO2 of 112, bicarbonate is 20, and saturation is 97%. Sodium 129, potassium 4.8, chloride 98, bicarbonate 23, BUN 38, creatinine 1.1, and glucose is 259. Calcium is 9.3. Total bilirubin of 0.8. AST of 118, ALT of 122 and alkaline phosphatase is 547. Total creatinine is 45. First troponin less than 0.00. BNP of 6971. Total protein is 7.0. Albumin is 2.4. Globulin is 4.6. PT of 11, INR 1.1 and PTT of 27. UA is +1 protein, +3 occult blood, positive nitrate, +2 leukocytes, 5 to 10 WBC, and many bacteria. The patient's urine culture shows gram-negative bacilli. Chest x-ray, still pending official report. EKG shows a sinus rhythm with premature supraventricular complex, ventricular rate of 68, low voltage QRS, and left bundle branch block. ASSESSMENT: 1. Acute respiratory failure, possible early acute respiratory distress syndrome. 2. Sepsis secondary to respiratory failure as well as gram-negative bacilli urinary tract infection. 3. Hyponatremia. 4. Fluid overload. 5. History of hypertension. 6. Rheumatoid arthritis. 7. Osteoporosis. 8. Anaplastic anemia. 9. Depression. 10. Abnormal liver function. PLAN: Admit the patient to ICU. We will follow up laboratory, ABG and 2D echo. Follow up with chest x-ray. Monitor culture. Broad-spectrum antibiotic with vancomycin and Zosyn. Discussed with the family member, brother at the bedside. We will monitor laboratory closely as well as culture. Discussed with Dr. Liu, Pulmonary Critical Care, Dr. Darnell from Cardiology Electrophysiology, Dr. Yair Encinas from Gastroenterology and Dr. Edis Hunter from ID. We will follow up with the nephew, who is the physician as well. Jesus Barahona M.D. DR: AUGUSTINE JOB#: [id number] CC: ROMEO
--- NOTE | 2017-09-12 17:45 | Consultation ---
DATE OF CONSULTATION: 09/12/2017 CARDIOLOGY CONSULTATION REFERRING PHYSICIAN: Jesus Barahona M.D. REASON FOR CONSULTATION: hypertension and possible congestive heart failure in a patient with left bundle-branch block. HISTORY OF PRESENT ILLNESS: The patient is a 76-year-old Kos[place] lady with history of hypertension, gastroesophageal reflux disease as well as arthritis, who was brought to the emergency room for her increasing shortness of breath. The patient did not have any chest pain or any recent illnesses or cough. The patient has been on different psychiatric medications recently for auditory hallucination and depression and was recently at [facility], had evaluation. The patient also had recent in her skin. The patient was brought to the EMS and noted that saturation was in the 80s in the field and so had some improvement under nonrebreather mask. Her EKG showed sinus tachycardia with left bundle-branch block. Cardiology consultation was obtained for further evaluation and management. PAST MEDICAL HISTORY: 1. Hypertension. 2. Diabetes. 3. History of cardiac problem, it is not clear at this time. 4. Psychiatric issue. SOCIAL HISTORY: Does not smoke or drink alcohol. FAMILY HISTORY: Noncontributory. REVIEW OF SYSTEMS: Review of systems was negative other than what was mentioned in history of present illness, even though it is limited, as the patient is on BiPAP in ICU, but she can answer yes or no to questions. PHYSICAL EXAMINATION: VITAL SIGNS: Blood pressure of 107/52, pulse 69, and respiration is 35. HEAD AND NECK: No JVD. LUNGS: Coarse rhonchi bilaterally, is on BiPAP. CARDIOVASCULAR: Regular S1 and S2. Not tachycardic. ABDOMEN: Soft. EXTREMITIES: There is 1+ pitting edema. LABORATORY AND DIAGNOSTIC DATA: White count of 21.5, hemoglobin 8.5, hematocrit 24.7, and platelet count of 164,000. Sodium 134, potassium 4.8, BUN of 32, creatinine 1, and glucose of 153. AST, ALT and alkaline phosphatase is elevated. Troponin negative x2. BNP is 7000. ASSESSMENT AND PLAN: 1. Acute shortness of breath, this is likely due to underlying acute respiratory distress syndrome versus pneumonia, even though the BNP is elevated at almost 7000, I do not think this is clinically congestive heart failure, but we will get an echocardiogram to rule out for ejection fraction and wall motion abnormality. She already ruled out for myocardial infarction which troponins that are negative. 2. Left bundle-branch block. We will watch the patient on telemetry. No evidence of advanced heart block. 3. History of psychiatric disorder. 4. Hyponatremia. 5. Pneumonia and sepsis. The patient is on IV antibiotics. Further evaluation by Dr. Hunter. Thank you very much, Dr. Barahona, for allowing me to participate in the care of this patient. Please do not hesitate to contact me for any questions regarding my evaluation. The case was discussed with the patient's brother at bedside. Charlie Darnell M.D. DR: OLE JOB#: [id number] CC:
--- NOTE | 2017-09-12 19:21 | Consultation ---
Consult Note Consult Note [id number] DEBBIE MURRY M.D. Sep 12, 2017 19:20
[2017-09-12] MEDS ORDERED: Dyna-Hex 2% Top Sol 2oz TOPIC SCH (20:00)
--- NOTE | 2017-09-12 20:45 | Consultation ---
DATE OF CONSULTATION: 09/12/2017 CONSULTING PHYSICIAN: Dary Nixon M.D. HISTORY OF PRESENT ILLNESS: This is a 76-year-old female with a history of multiple medical problems including hypertension, gastroesophageal reflux disease, and arthritis, who has been admitted to the hospital due to shortness of breath. The patient also had a history of depression and agitation as well as auditory hallucinations. The patient is well known to me. I have been seeing the patient in the senior care. I was unable to participate during the evaluation. The patient was asleep, BiPAP on, having hallucinations, and was a poor historian. PAST PSYCHIATRIC HISTORY: Has a psychotic disorder, auditory hallucination, and agitation. PAST MEDICAL HISTORY: Diabetic mellitus, shortness of breath, and chronic obstructive pulmonary disease on BiPAP. ALLERGIES: No known drug allergies. SUBSTANCE ABUSE HISTORY: No history of illicit drug use or alcohol. MENTAL STATUS EXAMINATION: The patient is asleep and at times agitated. There is cognitive impairment. Insight and judgment non-existent. Cognition is impaired. ASSESSMENT: Buckley I Encephalopathy, agitation, psychotic disorder. Buckley II Deferred. Buckley III Shortness of breath. Buckley IV Low. Buckley V Global assessment of functioning is 20. PLAN: 1. The patient will be continued on lorazepam intravenous q.4 hours as needed for anxiety and agitation. 2. We will continue to follow and readjust the medications. Dary Nixon M.D. DR: SINDY JOB#: [id number] CC:
--- NOTE | 2017-09-12 21:51 | Emergency Room Report ---
History of Present Illness General Chief Complaint: Dyspnea/Respdistress Source: Patient, EMS Present Illness Allergies: Coded Allergies: No Known Allergies (Verified , 11/18/08) Nursing Documentation-[facility] Past Medical History: No History, Except For Hx Cardiac Problems: Yes Hx Hypertension: Yes Hx Diabetes: Yes Hx Cancer: No Hx Gastrointestinal Problems: Yes History Of Psychiatric Problem: Yes Hx Neurological Problems: No Procedures Intubation Intubation : Consent: Emergent Intubation Method: orotracheal Tube Size (cm): 7.5 Medications: Etomidate, Rocuronium Breath Sounds after Intubation: equal Intubation Complications: no complications Attempts: Other - 2 Patient Tolerated: Well Complications: None Medical Decision Making Diagnostic Impression: Primary Impression: ARDS (adult respiratory distress syndrome) Additional Impressions: Anemia Transaminitis Pulmonary edema UTI (urinary tract infection) ER Course I was asked to evaluate the patient by ICU physician Dr. Liu. I arrived to find the patient tachypnea Tachycardic and showing evidence of respiratory distress. Patient was on a BiPAP but did not appear to be improving. Patient appeared as if she will tired and go into respiratory failure. I listened patient's lungs and dose decreased breath sounds bilaterally. Mild respiratory wheezing. Therefore I decided to intubate the patient. I discussed this case briefly with patient's nephew who was also a physician and consented to the intubation. I informed Dr. Liu who is going to intubate the patient. Then I proceeded to intubate the patient. Patient was intubated without difficulty. O2 saturation improved to 100%. Patient tolerated the procedure without difficulty. Case was signed out back to Dr. Liu for further disposition and treatment. Last Vital Signs Date Time Temp Pulse Resp B/P (MAP) Pulse Ox O2 Delivery O2 Flow Rate FiO2 09/12/17 21:05 86 34 91 Facial 100 09/12/17 20:00 98.3 130/47 98.3 09/12/17 00:35 15.0 Disposition: ADMITTED INPATIENT Condition: Critical Referrals: PRABHU BULL (PCP) CRISTIANO MONTANO M.D. Sep 12, 2017 21:51
[2017-09-12] MEDS ORDERED: Vancomycin 1gm in D5W 275ml IVPB SCH (23:00)
[2017-09-13] VITALS (24 sets, daily range): BP systolic 85–168; BP diastolic 35–69
--- NOTE | 2017-09-13 00:30 | Consultation ---
DATE OF CONSULTATION: 09/12/2017 INFECTIOUS DISEASES CONSULTATION REQUESTING PHYSICIAN: Jesus Barahona M.D. REASON FOR CONSULTATION: Evaluation of the patient for pneumonia and antibiotic management. HISTORY OF PRESENT ILLNESS: The patient is a 76-year-old female with multiple medical problems as listed below, who was admitted to this medical center due to progressive shortness of breath. The patient has been admitted to ICU and was on BiPAP. Infectious Disease consultation has been requested for evaluation of the patient for antibiotic management. PAST MEDICAL HISTORY: 1. Hypertension. 2. GERD. 3. History of auditory hallucination. 4. Depression. 5. Anemia. 6. Rheumatoid arthritis. 7. History of gastritis. ALLERGIES: No known drug allergies. SOCIAL HISTORY: Negative for alcohol, drug abuse, or smoking. REVIEW OF SYSTEMS: Difficult to obtain detailed information since the patient is on BiPAP, however, the patient mentioned that the patient has been coughing recently with some sputum production. PHYSICAL EXAMINATION: VITAL SIGNS: Temperature 98 degrees, blood pressure 125/50, pulse 86, and respiratory rate 18. HEENT: No pale conjunctivae. No icterus. NECK: No lymphadenopathy. CHEST: Clear. HEART: S1 and S2. ABDOMEN: Soft and nontender. EXTREMITIES: No cyanosis at this time. NEUROLOGIC: Awake and alert. LABORATORY AND DIAGNOSTIC DATA: WBC of 21, hemoglobin 8.5 and platelets 164,000. UA overall unremarkable. BUN 33 and creatinine 1. ALT and AST elevated 52 and 91. Alkaline phosphatase 427. Urine culture is growing gram-negative rods, more than 100,000 colonies. Rapid influenza A/B negative. Abdominal x-ray unremarkable. Chest x-ray, extensive bilateral infiltrates versus pulmonary edema. ASSESSMENT: The patient is a 76-year-old female who came to the hospital with progressive shortness of breath and pneumonia. The patient has: 1. Community-acquired/healthcare-associated pneumonia (the patient has been recently hospitalized in [facility]). 2. Probable influenza despite of negative influenza screening test. 3. Abnormal liver function tests, rule out biliary disease. 4. Probable urinary tract infection. Urine culture is growing gram-negative rods. PLAN: 1. We will continue the patient on vancomycin, add Levaquin and Tamiflu, hold Zosyn. 2. Monitor CBC. 3. Monitor BMP. 4. Monitor cultures (blood, urine and sputum). 5. Monitor chest x-ray. 6. Ultrasound of the abdomen. 7. Based on the patient's clinical course and laboratories, we will do further recommendations. Thank you, Dr. Barahona, for allowing me to participate in the care of this patient. I will follow the patient with you during this hospitalization. Edis Hunter M.D. DR: Estefany JOB#: [id number] CC:
[2017-09-13] MEDS: Heparin 5000 units/ml inj SUBQ SCH ×3 (01:00→17:56)
[2017-09-13] MEDS: Vancomycin 500mg in D5W 275ml IVPB SCH (01:02)
--- NOTE | 2017-09-13 02:15 | Consultation ---
DATE OF CONSULTATION: 09/12/2017 GASTROENTEROLOGY CONSULTATION CONSULTING PHYSICIAN: Yair Encinas M.D. CHIEF COMPLAINT: I was asked this patient by Dr. Jesus Barahona for evaluation of her feeding and abnormal liver tests. HISTORY OF PRESENT ILLNESS: The patient is an unfortunate 76-year-old white woman, who was admitted to the hospital with respiratory failure and shortness of breath. She is on a BiPAP mask. It is difficult for her to communicate. She lives in a senior care and previous to that she was in [facility] due to altered mental status and hallucination. She is unable to continue her BiPAP mask, but she does have a nasogastric tube placed. There have been no reports of nausea and vomiting, but her chest x-ray showed ARDS with poor oxygen saturation. PAST MEDICAL HISTORY: History of hypertension, gastroesophageal reflux disease, auditory hallucinations, depression, rheumatoid arthritis, Parkinson disease, and osteoporosis. MEDICATIONS: See the chart list for details. ALLERGIES: None. FAMILY HISTORY: Noncontributory. SOCIAL HISTORY: The patient does not smoke, drink alcohol, or use drugs. She lives in a senior care and she also has a sister and a brother who are very involved with her care. REVIEW OF SYSTEMS: Otherwise negative. PHYSICAL EXAMINATION: GENERAL: Debilitated, thin white woman, seen in the intensive care unit. HEENT: Normocephalic and atraumatic. There is some temporal wasting. BiPAP mask and nasogastric tubes were in. NECK: Supple. CHEST: Reveals scattered rhonchi and wheezes. CARDIOVASCULAR: Revealed regular rate. ABDOMEN: Soft and flat. Good bowel sounds. EXTREMITIES: Revealed no edema. LABORATORY DATA: Laboratory data were noted. ASSESSMENT: This patient presents with respiratory failure due to acute respiratory distress syndrome, which is being appropriately treated. The patient is unable to eat for some time, therefore nasogastric tube feeding was started and advanced slowly. Residulals should be checked frequently. The patient does have a significant degree of anemia of unclear etiology. I will check stool occult blood to see if there is any blood in the stools. The patient does have some abnormal liver function and subsequent measurements appear slightly decline in the interim. I will continue evaluation since total CPK is normal and therefore imaging studies, abdominal ultrasound should be done to evaluate the liver. RECOMMENDATIONS: Per above discussion and per orders written in the chart. Thank you for asking me to participate in the care of this patient. Yair Encinas M.D. DR: BRENDA JOB#: [id number] CC: ROMEO
[2017-09-13] MEDS: LORazepam Inj 2mg/ml 1ml IV PRN (02:29)
[2017-09-13] MEDS: D5NS 1,000 ML IV SCH ×2 (03:01→15:24)
[2017-09-13 04:15] LABS: HEMATOCRIT 23.7 % (37.0-47.0); HEMOGLOBIN 7.7 G/DL (12.0-16.0); MEAN CORPUSCULAR VOLUME 101 FL (80-99); PLATELET COUNT 138 K/UL (150-450); RED BLOOD COUNT 2.35 M/UL (4.20-5.40); RED CELL DISTRIBUTION WIDTH 12.5 % (11.6-14.8); WHITE BLOOD COUNT 12.2 K/UL (4.8-10.8)
[2017-09-13 04:55] LABS: ALANINE AMINOTRANSFERASE 52 U/L (12-78); ALBUMIN 1.7 G/DL (3.4-5.0); ALBUMIN/GLOBULIN RATIO 0.4 (1.0-2.7); ALKALINE PHOSPHATASE 284 U/L (46-116); ANION GAP 11 mmol/L (5-15); ASPARTATE AMINO TRANSFERASE 34 U/L (15-37); BILIRUBIN,TOTAL 0.5 MG/DL (0.2-1.0); BLOOD UREA NITROGEN 28 mg/dL (7-18); CALCIUM 8.2 MG/DL (8.5-10.1); CARBON DIOXIDE 20 MMOL/L (21-32); CHLORIDE 103 MMOL/L (98-107); POTASSIUM 3.7 MMOL/L (3.5-5.1); SODIUM 134 MMOL/L (136-145)
[2017-09-13 05:17] LABS: PHOSPHORUS 2.6 MG/DL (2.5-4.9)
[2017-09-13] MEDS: Albuterol/Ipratropium 3ml neb HHN SCH ×3 (07:02→23:54)
--- NOTE | 2017-09-13 07:07 | Pulmonolgy Critical Care Note ---
Critical Care - Asmt/Plan Assessment/Plan: ASSESSMENT Acute hypoxemic RF requiring intubation ARDS severe sepsis Aspiration PNA UTI with GNB hypo Na Abnormal LFT anemia HTN moderate AI moderate pulmonary HTN RA LBBB severe protein calorie malnutrition PLAN OF CARE ICU vent support, pulm toilet daily CXR and ABG , titrate settings as needed AC decreased to 18 cardio follows per cardio not clinically in CHF ECHO with EF 55 and RVSP of 49, moderate AI Abx urine cx+ GNB ,influenza negative droplet precautions empiric Tamiflu cooling measures NGT feeding strict aspiration precautions DVT GI prophylaxis Na better, monitor lytes and correct as needed anemia w/up , montior counts transfuse today discussed with noah Guaman over the phone the patient condition case discussed and evaluated by supervising physician Critical Care - Objective Last 24 Hour Vital Signs Date Time Temp Pulse Resp B/P (MAP) Pulse Ox O2 Delivery O2 Flow Rate FiO2 09/13/17 07:06 91 28 99 Mechanical Ventilator 80 09/13/17 07:03 92 28 80 09/13/17 07:00 77 20 100 Mechanical Ventilator 100 09/13/17 06:00 79 22 119/43 97 Mechanical Ventilator 80 09/13/17 05:30 77 23 80 09/13/17 05:00 78 24 121/50 98 Mechanical Ventilator 80 09/13/17 04:00 79 09/13/17 04:00 98.4 77 18 115/43 97 Mechanical Ventilator 80 98.4 09/13/17 04:00 80 09/13/17 03:05 81 24 80 09/13/17 03:00 79 21 122/49 97 Mechanical Ventilator 80 09/13/17 02:00 75 23 115/43 97 Mechanical Ventilator 80 09/13/17 01:24 84 21 80 09/13/17 01:00 75 20 121/49 97 Mechanical Ventilator 80 09/13/17 00:00 85 09/13/17 00:00 98.3 84 18 131/57 95 Mechanical Ventilator 80 98.3 09/13/17 00:00 80 09/12/17 23:00 81 20 145/58 96 Mechanical Ventilator 80 09/12/17 22:47 73 20 80 09/12/17 22:47 73 20 100 Mechanical Ventilator 80 09/12/17 22:36 69 20 100 Mechanical Ventilator 100 09/12/17 22:00 73 20 128/50 100 Mechanical Ventilator 100 09/12/17 21:56 84 20 100 09/12/17 21:05 86 34 91 Facial 100 09/12/17 21:00 88 33 127/51 90 Bi-pap 100 09/12/17 20:00 98.3 83 36 130/47 92 Bi-pap 100 98.3 09/12/17 20:00 77 09/12/17 20:00 100 09/12/17 19:10 82 38 93 Facial 90 09/12/17 19:00 77 34 127/51 92 Bi-pap 100 09/12/17 18:00 92 31 128/51 93 Bi-pap 90 09/12/17 17:00 72 36 122/50 93 Bi-pap 90 09/12/17 16:56 73 37 92 Facial 90 09/12/17 16:00 80 09/12/17 16:00 98.6 73 33 122/50 97 Bi-pap 80 98.6 09/12/17 16:00 75 09/12/17 15:16 76 36 94 Bi-pap 80 09/12/17 15:16 80 09/12/17 15:06 76 36 94 Bi-pap 80 09/12/17 15:05 76 36 94 Facial 80 09/12/17 15:00 74 34 132/51 97 Bi-pap 80 09/12/17 14:00 74 33 127/48 97 Bi-pap 100 09/12/17 13:11 72 34 97 Facial 90 09/12/17 13:00 73 36 127/49 97 Bi-pap 100 09/12/17 12:00 98.6 70 26 110/44 97 Bi-pap 100 98.6 09/12/17 12:00 100 09/12/17 12:00 72 09/12/17 11:00 71 29 118/41 97 Bi-pap 100 09/12/17 10:48 76 33 99 Facial 100 09/12/17 10:00 72 31 110/60 96 Bi-pap 100 09/12/17 09:00 69 09/12/17 09:00 72 35 107/52 95 Bi-pap 100 09/12/17 08:00 100 09/12/17 08:00 98.8 71 33 114/42 97 Bi-pap 100 98.8 09/12/17 07:51 68 35 97 Bi-pap 100 Status: sedated Condition: critical HEENT: atraumatic, normocephalic, other - OP with ET in place, intact, NGT Lungs: rhonchi - scattered Heart: HR/BP stable Abdomen: soft Extremities: no C/C/E Micro: Microbiology Date/Time Source Procedure Growth Status 09/11/17 17:30 Nasal Nares Influenza Types A,B Antigen (MOOKIE) - Final Complete 09/11/17 22:46 Urine,Clean Catch Urine Culture - Preliminary Gram Negative Bacillus 1 Resulted Critical Care - Subjective ROS Limited/Unobtainable: Yes Interval Events: intubated last night leucocytosis trending down, febrile 102.8 tachycardic, ST on tele anemic, worse Condition: critical IV Access: peripheral EKG Rhythm: Sinus Tachycardia FI02: 80 Vent Support Breath Rate: 20 Vent Support Mode: AC Vent Tidal Volume: 500 Sputum Amount: Scant PEEP: 5.0 PIP: 33 Fluids: D54NS at 75 Tube Feeding Amount: 35 I&O: Intake and Output 09/12/17 09/13/17 19:00 07:00 Intake Total 1155.0 ml 1360 ml Output Total 350 ml 415 ml Balance 805.0 ml 945 ml Intake Free Water 50 ml IV Total 1065.0 ml 1050 ml Tube Feeding 90 ml 260 ml Output Urine Total 350 ml 415 ml # Voids 2 ET-Tube: 7.5 ET Position: 21 [place] (MercedesHuma isaacs NP Sep 13, 2017 07:07
[2017-09-13] MEDS: Pantoprazole Inj IV SCH (10:12)
[2017-09-13] MEDS: Morphine Sulfate 4mg/ml Inj IVP PRN (10:17)
--- NOTE | 2017-09-13 11:11 | Diagnostic Imaging Report ---
Indication: Dyspnea. COMPARISON: 09/12/2017 22:12 FINDINGS: Single view chest obtained. Endotracheal tube and nasogastric tubes are in good position. There are extensive bilateral infiltrates versus edema. Borderline cardiomegaly noted. IMPRESSION: No significant change from the earlier film.
--- NOTE | 2017-09-13 11:13 | Diagnostic Imaging Report ---
Indication: Abnormal breath sounds Comparison: 07:19 A single view chest radiograph was obtained. Findings: Study done 22:12. Endotracheal tube is 3 cm above the ludmila in good position. Nasogastric tube is well situated in the stomach. Mixed interstitial and alveolar infiltrates are present bilaterally, quite extensive in degree but may be slightly improved since the previous study. The heart is borderline enlarged. IMPRESSION: Extensive lung disease, marginally improved. Endotracheal tube and nasogastric tubes satisfactory in position
[2017-09-13 12:23] LABS: FERRITIN 507 NG/ML (8-388)
[2017-09-13 13:12] LABS: % IRON SATURATION 11 % (15-50); IRON 14 ug/dL (50-175); TOTAL IRON BINDING CAPACITY 129 ug/dL (250-450)
--- NOTE | 2017-09-13 14:17 | Internal Med Progress Note ---
Subjective Date of Service: Sep 13, 2017 Physician Name Sina Bowens Attending Physician Jesus Barahona MD Current Medications Medications (Trade) Dose Ordered Sig/Hermes Route PRN Reason Start Time Stop Time Status Last Admin Dose Admin Albuterol/ Ipratropium (Albuterol/ Ipratropium) 3 ml Q4H PRN HHN Shortness of Breath 09/11/17 23:15 09/16/17 23:14 Albuterol/ Ipratropium (Albuterol/ Ipratropium) 3 ml Q8HR HHN 09/11/17 23:15 09/16/17 23:14 09/13/17 07:02 Dextrose/Sodium Chloride 1,000 ml @ 75 mls/hr [id number] IV 09/11/17 23:15 10/11/17 23:14 09/13/17 03:01 Heparin Sodium (Porcine) (Heparin 5000 units/ml) 5,000 units Q8H SUBQ 09/12/17 09:00 10/12/17 08:59 09/13/17 01:00 Levofloxacin 100 ml @ 100 mls/hr Q24H IVPB 09/12/17 20:00 09/19/17 19:59 09/12/17 20:27 Lorazepam (Ativan 2mg/ml 1ml) 2 mg Q2HR PRN IV For Anxiety 09/12/17 22:00 09/19/17 21:59 09/13/17 02:29 Morphine Sulfate (Morphine Sulfate) 4 mg Q4H PRN IVP For Pain 09/12/17 10:45 09/19/17 10:44 09/13/17 10:17 Oseltamivir Phosphate (Tamiflu) 30 mg BID ORAL 09/12/17 20:00 09/17/17 19:59 09/13/17 10:12 Pantoprazole (Protonix) 40 mg DAILY IV 09/13/17 09:00 10/13/17 08:59 09/13/17 10:12 Vancomycin HCl (Vanco rx to dose) 1 ea DAILY PRN MISC Per rx protocol 09/11/17 23:15 10/11/17 23:14 Vancomycin HCl 500 mg/Dextrose 275 ml @ 275 mls/hr Q24H IVPB 09/13/17 01:00 09/18/17 00:59 09/13/17 01:02 Allergies: Coded Allergies: No Known Allergies (Verified , 11/18/08) Objective Last Vital Signs Date Time Temp Pulse Resp B/P (MAP) Pulse Ox O2 Delivery O2 Flow Rate FiO2 09/13/17 12:51 79 24 80 09/13/17 10:17 102.8 09/13/17 07:06 99 Mechanical Ventilator 09/13/17 07:00 145/53 09/12/17 00:35 15.0 Laboratory Tests Test 09/12/17 22:21 09/13/17 04:00 Arterial Blood pH 7.438 (7.350-7.450) 7.449 (7.350-7.450) Arterial Blood Partial Pressure CO2 30.1 mmHg (35.0-45.0) L 28.2 mmHg (35.0-45.0) L Arterial Blood Partial Pressure O2 183.1 mmHg (75.0-100.0) H 70.2 mmHg (75.0-100.0) L Arterial Blood HCO3 19.9 mmol/L (22.0-26.0) L 19.1 mmol/L (22.0-26.0) L Arterial Blood Oxygen Saturation 98.9 % (92.0-98.0) H 95.2 % (92.0-98.0) Arterial Blood Base Excess -3.6 -4.5 Luis A Test Positive Positive White Blood Count 12.2 K/UL (4.8-10.8) H Red Blood Count 2.35 M/UL (4.20-5.40) L Hemoglobin 7.7 G/DL (12.0-16.0) L Hematocrit 23.7 % (37.0-47.0) L Mean Corpuscular Volume 101 FL (80-99) H Mean Corpuscular Hemoglobin 32.9 PG (27.0-31.0) H Mean Corpuscular Hemoglobin Concent 32.6 G/DL (32.0-36.0) Red Cell Distribution Width 12.5 % (11.6-14.8) Platelet Count 138 K/UL (150-450) L Mean Platelet Volume 8.2 FL (6.5-10.1) Neutrophils (%) (Auto) % (45.0-75.0) Lymphocytes (%) (Auto) % (20.0-45.0) Monocytes (%) (Auto) % (1.0-10.0) Eosinophils (%) (Auto) % (0.0-3.0) Basophils (%) (Auto) % (0.0-2.0) Differential Total Cells Counted 100 Neutrophils % (Manual) 90 % (45-75) H Lymphocytes % (Manual) 5 % (20-45) L Monocytes % (Manual) 5 % (1-10) Eosinophils % (Manual) 0 % (0-3) Basophils % (Manual) 0 % (0-2) Band Neutrophils 0 % (0-8) Platelet Estimate Decreased L Platelet Morphology Normal Hypochromasia 3+ Anisocytosis 1+ Macrocytosis 1+ Spherocytes 2+ Sodium Level 134 MMOL/L (136-145) L Potassium Level 3.7 MMOL/L (3.5-5.1) Chloride Level 103 MMOL/L (98-107) Carbon Dioxide Level 20 MMOL/L (21-32) L Anion Gap 11 mmol/L (5-15) Blood Urea Nitrogen 28 mg/dL (7-18) H Creatinine 1.0 MG/DL (0.55-1.30) Estimat Glomerular Filtration Rate mL/min (>60) Glucose Level 354 MG/DL (74-106) #H Hemoglobin A1c 6.3 % (4.3-6.0) H Calcium Level 8.2 MG/DL (8.5-10.1) L Phosphorus Level 2.6 MG/DL (2.5-4.9) Magnesium Level 1.9 MG/DL (1.8-2.4) Iron Level 14 ug/dL (50-175) L Total Iron Binding Capacity 129 ug/dL (250-450) L Percent Iron Saturation 11 % (15-50) L Unsaturated Iron Binding 115 ug/dL (112-346) Ferritin 507 NG/ML (8-388) H Total Bilirubin 0.5 MG/DL (0.2-1.0) Aspartate Amino Transf (AST/SGOT) 34 U/L (15-37) Alanine Aminotransferase (ALT/SGPT) 52 U/L (12-78) Alkaline Phosphatase 284 U/L (46-116) H Troponin I 0.000 ng/mL (0.000-0.056) Pro-B-Type Natriuretic Peptide 4346 pg/mL (0-125) H Total Protein 5.7 G/DL (6.4-8.2) L Albumin 1.7 G/DL (3.4-5.0) L Globulin 4.0 g/dL Albumin/Globulin Ratio 0.4 (1.0-2.7) L Vitamin B12 Level > 2000 PG/ML (193-986) H RBC Folate Hemolysate Pending Red Blood Cell Folate Pending Free Thyroxine 1.25 NG/DL (0.76-1.46) Hepatitis A IgM Antibody Pending Hepatitis B Surface Antigen Pending Hepatitis B Core IgM Antibody Pending Hepatitis C Antibody Pending Microbiology Date/Time Source Procedure Growth Status 09/11/17 16:50 Blood Blood Culture - Preliminary NO GROWTH AFTER 24 HOURS Resulted 09/11/17 16:40 Blood Blood Culture - Preliminary NO GROWTH AFTER 24 HOURS Resulted 09/11/17 17:30 Nasal Nares Influenza Types A,B Antigen (MOOKIE) - Final Complete 09/11/17 22:46 Urine,Clean Catch Urine Culture - Final Escherichia Coli Complete Intake and Output 09/12/17 09/13/17 19:00 07:00 Intake Total 1155.0 ml 1470 ml Output Total 350 ml 440 ml Balance 805.0 ml 1030 ml Intake Free Water 50 ml IV Total 1065.0 ml 1125 ml Tube Feeding 90 ml 295 ml Output Urine Total 350 ml 440 ml # Voids 2 SINA BOWENS Sep 13, 2017 14:17
--- NOTE | 2017-09-13 14:46 | Cardiac Electrophysiology PN ---
Assessment/Plan Assessment/Plan 1. Respiratory failure, likely due to underlying acute respiratory distress syndrome versus pneumonia, even though the BNP is elevated at almost 7000. Now intubated on the vent. She already ruled out for myocardial infarction. 2. Left bundle-branch block. No evidence of advanced heart block. 3. History of psychiatric disorder. 4. Hyponatremia. 5. Pneumonia and sepsis on IV antibiotics by Dr. Hunter. Subjective Subjective Intubated overnight. On Vent in ICU. Did not need pressors. Objective Last 24 Hour Vital Signs Date Time Temp Pulse Resp B/P (MAP) Pulse Ox O2 Delivery O2 Flow Rate FiO2 09/13/17 14:00 91 122/55 98 Mechanical Ventilator 09/13/17 13:00 83 23 96/42 99 Mechanical Ventilator 09/13/17 12:51 79 24 80 09/13/17 12:00 87 09/13/17 12:00 80 09/13/17 12:00 84 22 95/35 100 Mechanical Ventilator 09/13/17 11:08 96 25 80 09/13/17 11:00 90 24 89/36 100 Mechanical Ventilator 09/13/17 10:47 102.3 09/13/17 10:17 102.8 09/13/17 10:00 126 31 168/69 98 Mechanical Ventilator 09/13/17 09:29 112 33 80 09/13/17 09:00 125 33 160/61 99 Mechanical Ventilator 09/13/17 08:00 112 31 149/60 99 Mechanical Ventilator 09/13/17 08:00 80 09/13/17 08:00 96 09/13/17 07:06 91 28 99 Mechanical Ventilator 80 09/13/17 07:03 92 28 80 09/13/17 07:00 99 21 145/53 97 Mechanical Ventilator 80 09/13/17 07:00 77 20 100 Mechanical Ventilator 100 09/13/17 06:00 79 22 119/43 97 Mechanical Ventilator 80 09/13/17 05:30 77 23 80 09/13/17 05:00 78 24 121/50 98 Mechanical Ventilator 80 09/13/17 04:00 79 09/13/17 04:00 98.4 77 18 115/43 97 Mechanical Ventilator 80 98.4 09/13/17 04:00 80 09/13/17 03:05 81 24 80 09/13/17 03:00 79 21 122/49 97 Mechanical Ventilator 80 09/13/17 02:00 75 23 115/43 97 Mechanical Ventilator 80 09/13/17 01:24 84 21 80 09/13/17 01:00 75 20 121/49 97 Mechanical Ventilator 80 09/13/17 00:00 85 09/13/17 00:00 98.3 84 18 131/57 95 Mechanical Ventilator 80 98.3 09/13/17 00:00 80 09/12/17 23:00 81 20 145/58 96 Mechanical Ventilator 80 09/12/17 22:47 73 20 80 09/12/17 22:47 73 20 100 Mechanical Ventilator 80 09/12/17 22:36 69 20 100 Mechanical Ventilator 100 09/12/17 22:00 73 20 128/50 100 Mechanical Ventilator 100 09/12/17 21:56 84 20 100 09/12/17 21:05 86 34 91 Facial 100 09/12/17 21:00 88 33 127/51 90 Bi-pap 100 09/12/17 20:00 98.3 83 36 130/47 92 Bi-pap 100 98.3 09/12/17 20:00 77 09/12/17 20:00 100 09/12/17 19:10 82 38 93 Facial 90 09/12/17 19:00 77 34 127/51 92 Bi-pap 100 09/12/17 18:00 92 31 128/51 93 Bi-pap 90 09/12/17 17:00 72 36 122/50 93 Bi-pap 90 09/12/17 16:56 73 37 92 Facial 90 09/12/17 16:00 80 09/12/17 16:00 98.6 73 33 122/50 97 Bi-pap 80 98.6 09/12/17 16:00 75 09/12/17 15:16 76 36 94 Bi-pap 80 09/12/17 15:16 80 09/12/17 15:06 76 36 94 Bi-pap 80 09/12/17 15:05 76 36 94 Facial 80 09/12/17 15:00 74 34 132/51 97 Bi-pap 80 Intake and Output 09/12/17 09/13/17 19:00 07:00 Intake Total 1155.0 ml 1470 ml Output Total 350 ml 440 ml Balance 805.0 ml 1030 ml Intake Free Water 50 ml IV Total 1065.0 ml 1125 ml Tube Feeding 90 ml 295 ml Output Urine Total 350 ml 440 ml # Voids 2 Laboratory Tests Test 09/12/17 22:21 09/13/17 04:00 Arterial Blood pH 7.438 (7.350-7.450) 7.449 (7.350-7.450) Arterial Blood Partial Pressure CO2 30.1 mmHg (35.0-45.0) L 28.2 mmHg (35.0-45.0) L Arterial Blood Partial Pressure O2 183.1 mmHg (75.0-100.0) H 70.2 mmHg (75.0-100.0) L Arterial Blood HCO3 19.9 mmol/L (22.0-26.0) L 19.1 mmol/L (22.0-26.0) L Arterial Blood Oxygen Saturation 98.9 % (92.0-98.0) H 95.2 % (92.0-98.0) Arterial Blood Base Excess -3.6 -4.5 Luis A Test Positive Positive White Blood Count 12.2 K/UL (4.8-10.8) H Red Blood Count 2.35 M/UL (4.20-5.40) L Hemoglobin 7.7 G/DL (12.0-16.0) L Hematocrit 23.7 % (37.0-47.0) L Mean Corpuscular Volume 101 FL (80-99) H Mean Corpuscular Hemoglobin 32.9 PG (27.0-31.0) H Mean Corpuscular Hemoglobin Concent 32.6 G/DL (32.0-36.0) Red Cell Distribution Width 12.5 % (11.6-14.8) Platelet Count 138 K/UL (150-450) L Mean Platelet Volume 8.2 FL (6.5-10.1) Neutrophils (%) (Auto) % (45.0-75.0) Lymphocytes (%) (Auto) % (20.0-45.0) Monocytes (%) (Auto) % (1.0-10.0) Eosinophils (%) (Auto) % (0.0-3.0) Basophils (%) (Auto) % (0.0-2.0) Differential Total Cells Counted 100 Neutrophils % (Manual) 90 % (45-75) H Lymphocytes % (Manual) 5 % (20-45) L Monocytes % (Manual) 5 % (1-10) Eosinophils % (Manual) 0 % (0-3) Basophils % (Manual) 0 % (0-2) Band Neutrophils 0 % (0-8) Platelet Estimate Decreased L Platelet Morphology Normal Hypochromasia 3+ Anisocytosis 1+ Macrocytosis 1+ Spherocytes 2+ Sodium Level 134 MMOL/L (136-145) L Potassium Level 3.7 MMOL/L (3.5-5.1) Chloride Level 103 MMOL/L (98-107) Carbon Dioxide Level 20 MMOL/L (21-32) L Anion Gap 11 mmol/L (5-15) Blood Urea Nitrogen 28 mg/dL (7-18) H Creatinine 1.0 MG/DL (0.55-1.30) Estimat Glomerular Filtration Rate mL/min (>60) Glucose Level 354 MG/DL (74-106) #H Hemoglobin A1c 6.3 % (4.3-6.0) H Calcium Level 8.2 MG/DL (8.5-10.1) L Phosphorus Level 2.6 MG/DL (2.5-4.9) Magnesium Level 1.9 MG/DL (1.8-2.4) Iron Level 14 ug/dL (50-175) L Total Iron Binding Capacity 129 ug/dL (250-450) L Percent Iron Saturation 11 % (15-50) L Unsaturated Iron Binding 115 ug/dL (112-346) Ferritin 507 NG/ML (8-388) H Total Bilirubin 0.5 MG/DL (0.2-1.0) Aspartate Amino Transf (AST/SGOT) 34 U/L (15-37) Alanine Aminotransferase (ALT/SGPT) 52 U/L (12-78) Alkaline Phosphatase 284 U/L (46-116) H Troponin I 0.000 ng/mL (0.000-0.056) Pro-B-Type Natriuretic Peptide 4346 pg/mL (0-125) H Total Protein 5.7 G/DL (6.4-8.2) L Albumin 1.7 G/DL (3.4-5.0) L Globulin 4.0 g/dL Albumin/Globulin Ratio 0.4 (1.0-2.7) L Vitamin B12 Level > 2000 PG/ML (193-986) H RBC Folate Hemolysate Pending Red Blood Cell Folate Pending Free Thyroxine 1.25 NG/DL (0.76-1.46) Hepatitis A IgM Antibody Pending Hepatitis B Surface Antigen Pending Hepatitis B Core IgM Antibody Pending Hepatitis C Antibody Pending Microbiology Date/Time Source Procedure Growth Status 09/11/17 16:50 Blood Blood Culture - Preliminary NO GROWTH AFTER 24 HOURS Resulted 09/11/17 16:40 Blood Blood Culture - Preliminary NO GROWTH AFTER 24 HOURS Resulted 09/11/17 17:30 Nasal Nares Influenza Types A,B Antigen (MOOKIE) - Final Complete 09/11/17 22:46 Urine,Clean Catch Urine Culture - Final Escherichia Coli Complete Objective HEAD AND NECK: No JVD. Orally intubated. LUNGS: Coarse rhonchi bilaterally, is on BiPAP. CARDIOVASCULAR: Regular S1 and S2. Not tachycardic. ABDOMEN: Soft. EXTREMITIES: 1+ pitting edema. ROLF OLIVIA Sep 13, 2017 14:45
--- NOTE | 2017-09-13 14:48 | General Progress Note ---
Assessment/Plan Problem List: (1) Transaminitis ICD Codes: R74.0 - Nonspecific elevation of levels of transaminase and lactic acid dehydrogenase [LDH] SNOMED: 266825290, 880029430 (2) Anemia ICD Codes: D64.9 - Anemia, unspecified SNOMED: 051857753 (3) Diabetes mellitus ICD Codes: E11.9 - Type 2 diabetes mellitus without complications SNOMED: 52931800 (4) Respiratory failure ICD Codes: J96.90 - Respiratory failure, unspecified, unspecified whether with hypoxia or hypercapnia SNOMED: 859909355 Assessment/Plan TF iv iron ppi fu labs supportive care Subjective ROS Limited/Unobtainable: No Allergies: Coded Allergies: No Known Allergies (Verified , 11/18/08) Subjective intubated in the ICU Objective Last 24 Hour Vital Signs Date Time Temp Pulse Resp B/P (MAP) Pulse Ox O2 Delivery O2 Flow Rate FiO2 09/13/17 14:43 93 22 98 Mechanical Ventilator 80 09/13/17 14:37 85 18 80 09/13/17 14:36 83 18 97 Mechanical Ventilator 80 09/13/17 14:00 91 122/55 98 Mechanical Ventilator 09/13/17 13:00 83 23 96/42 99 Mechanical Ventilator 09/13/17 12:51 79 24 80 09/13/17 12:00 87 09/13/17 12:00 80 09/13/17 12:00 84 22 95/35 100 Mechanical Ventilator 09/13/17 11:08 96 25 80 09/13/17 11:00 90 24 89/36 100 Mechanical Ventilator 09/13/17 10:47 102.3 09/13/17 10:17 102.8 09/13/17 10:00 126 31 168/69 98 Mechanical Ventilator 09/13/17 09:29 112 33 80 09/13/17 09:00 125 33 160/61 99 Mechanical Ventilator 09/13/17 08:00 112 31 149/60 99 Mechanical Ventilator 09/13/17 08:00 80 09/13/17 08:00 96 09/13/17 07:06 91 28 99 Mechanical Ventilator 80 09/13/17 07:03 92 28 80 09/13/17 07:00 99 21 145/53 97 Mechanical Ventilator 80 09/13/17 07:00 77 20 100 Mechanical Ventilator 100 09/13/17 06:00 79 22 119/43 97 Mechanical Ventilator 80 09/13/17 05:30 77 23 80 09/13/17 05:00 78 24 121/50 98 Mechanical Ventilator 80 09/13/17 04:00 79 09/13/17 04:00 98.4 77 18 115/43 97 Mechanical Ventilator 80 98.4 09/13/17 04:00 80 09/13/17 03:05 81 24 80 09/13/17 03:00 79 21 122/49 97 Mechanical Ventilator 80 09/13/17 02:00 75 23 115/43 97 Mechanical Ventilator 80 09/13/17 01:24 84 21 80 09/13/17 01:00 75 20 121/49 97 Mechanical Ventilator 80 09/13/17 00:00 85 09/13/17 00:00 98.3 84 18 131/57 95 Mechanical Ventilator 80 98.3 09/13/17 00:00 80 09/12/17 23:00 81 20 145/58 96 Mechanical Ventilator 80 09/12/17 22:47 73 20 80 09/12/17 22:47 73 20 100 Mechanical Ventilator 80 09/12/17 22:36 69 20 100 Mechanical Ventilator 100 09/12/17 22:00 73 20 128/50 100 Mechanical Ventilator 100 09/12/17 21:56 84 20 100 09/12/17 21:05 86 34 91 Facial 100 09/12/17 21:00 88 33 127/51 90 Bi-pap 100 09/12/17 20:00 98.3 83 36 130/47 92 Bi-pap 100 98.3 09/12/17 20:00 77 09/12/17 20:00 100 09/12/17 19:10 82 38 93 Facial 90 09/12/17 19:00 77 34 127/51 92 Bi-pap 100 18 18:00 92 31 128/51 93 Bi-pap 90 18 17:00 72 36 122/50 93 Bi-pap 90 18 16:56 73 37 92 Facial 90 18 16:00 80 18 16:00 98.6 73 33 122/50 97 Bi-pap 80 98.6 18 16:00 75 09/12/17 15:16 76 36 94 Bi-pap 80 18 15:16 80 09/12/17 15:06 76 36 94 Bi-pap 80 09/12/17 15:05 76 36 94 Facial 80 09/12/17 15:00 74 34 132/51 97 Bi-pap 80 Intake and Output 09/12/17 09/13/17 19:00 07:00 Intake Total 1155.0 ml 1470 ml Output Total 350 ml 440 ml Balance 805.0 ml 1030 ml Intake Free Water 50 ml IV Total 1065.0 ml 1125 ml Tube Feeding 90 ml 295 ml Output Urine Total 350 ml 440 ml # Voids 2 Laboratory Tests 09/12/17 22:21: Arterial Blood pH 7.438, Arterial Blood Partial Pressure CO2 30.1L, Arterial Blood Partial Pressure O2 183.1H, Arterial Blood HCO3 19.9L, Arterial Blood Oxygen Saturation 98.9H, Arterial Blood Base Excess -3.6, Luis A Test Positive 09/13/17 04:00: Arterial Blood pH 7.449, Arterial Blood Partial Pressure CO2 28.2L, Arterial Blood Partial Pressure O2 70.2L, Arterial Blood HCO3 19.1L, Arterial Blood Oxygen Saturation 95.2, Arterial Blood Base Excess -4.5, Luis A Test Positive, White Blood Count 12.2H, Red Blood Count 2.35L, Hemoglobin 7.7L, Hematocrit 23.7L, Mean Corpuscular Volume 101H, Mean Corpuscular Hemoglobin 32.9H, Mean Corpuscular Hemoglobin Concent 32.6, Red Cell Distribution Width 12.5, Platelet Count 138L, Mean Platelet Volume 8.2, Neutrophils (%) (Auto) , Lymphocytes (%) ( Auto) , Monocytes (%) (Auto) , Eosinophils (%) (Auto) , Basophils (%) (Auto) , Differential Total Cells Counted 100, Neutrophils % (Manual) 90H, Lymphocytes % (Manual) 5L, Monocytes % (Manual) 5, Eosinophils % (Manual) 0, Basophils % ( Manual) 0, Band Neutrophils 0, Platelet Estimate DecreasedL, Platelet Morphology Normal, Hypochromasia 3+, Anisocytosis 1+, Macrocytosis 1+, Spherocytes 2+, Sodium Level 134L, Potassium Level 3.7, Chloride Level 103, Carbon Dioxide Level 20L, Anion Gap 11, Blood Urea Nitrogen 28H, Creatinine 1.0 , Estimat Glomerular Filtration Rate , Glucose Level 354#H, Hemoglobin A1c 6.3H , Calcium Level 8.2L, Phosphorus Level 2.6, Magnesium Level 1.9, Iron Level 14L , Total Iron Binding Capacity 129L, Percent Iron Saturation 11L, Unsaturated Iron Binding 115, Ferritin 507H, Total Bilirubin 0.5, Aspartate Amino Transf ( AST/SGOT) 34, Alanine Aminotransferase (ALT/SGPT) 52, Alkaline Phosphatase 284H , Troponin I 0.000, Pro-B-Type Natriuretic Peptide 4346H, Total Protein 5.7L, Albumin 1.7L, Globulin 4.0, Albumin/Globulin Ratio 0.4L, Vitamin B12 Level > 2000H, RBC Folate Hemolysate [Pending], Red Blood Cell Folate [Pending], Free Thyroxine 1.25, Hepatitis A IgM Antibody [Pending], Hepatitis B Surface Antigen [Pending], Hepatitis B Core IgM Antibody [Pending], Hepatitis C Antibody [ Pending] Height (Feet): 5 Height (Inches): 0.00 Weight (Pounds): 84 General Appearance: no apparent distress EENT: normal ENT inspection Neck: supple Cardiovascular: normal rate Respiratory/Chest: decreased breath sounds Abdomen: normal bowel sounds, non tender, soft Extremities: non-tender KIT GONZALEZ Sep 13, 2017 14:48
--- NOTE | 2017-09-13 14:51 | Internal Med Progress Note ---
Subjective Date of Service: Sep 13, 2017 Physician Name Sina Bowens Attending Physician Jesus Barahona MD Current Medications Medications (Trade) Dose Ordered Sig/Hermes Route PRN Reason Start Time Stop Time Status Last Admin Dose Admin Albuterol/ Ipratropium (Albuterol/ Ipratropium) 3 ml Q4H PRN HHN Shortness of Breath 09/11/17 23:15 09/16/17 23:14 Albuterol/ Ipratropium (Albuterol/ Ipratropium) 3 ml Q8HR HHN 09/11/17 23:15 09/16/17 23:14 09/13/17 07:02 Dextrose/Sodium Chloride 1,000 ml @ 75 mls/hr [id number] IV 09/11/17 23:15 10/11/17 23:14 09/13/17 03:01 Heparin Sodium (Porcine) (Heparin 5000 units/ml) 5,000 units Q8H SUBQ 09/12/17 09:00 10/12/17 08:59 09/13/17 01:00 Levofloxacin 100 ml @ 100 mls/hr Q24H IVPB 09/12/17 20:00 09/19/17 19:59 09/12/17 20:27 Lorazepam (Ativan 2mg/ml 1ml) 2 mg Q2HR PRN IV For Anxiety 09/12/17 22:00 09/19/17 21:59 09/13/17 02:29 Morphine Sulfate (Morphine Sulfate) 4 mg Q4H PRN IVP For Pain 09/12/17 10:45 09/19/17 10:44 09/13/17 10:17 Oseltamivir Phosphate (Tamiflu) 30 mg BID ORAL 09/12/17 20:00 09/17/17 19:59 09/13/17 10:12 Pantoprazole (Protonix) 40 mg DAILY IV 09/13/17 09:00 10/13/17 08:59 09/13/17 10:12 Vancomycin HCl (Vanco rx to dose) 1 ea DAILY PRN MISC Per rx protocol 09/11/17 23:15 10/11/17 23:14 Vancomycin HCl 500 mg/Dextrose 275 ml @ 275 mls/hr Q24H IVPB 09/13/17 01:00 09/18/17 00:59 09/13/17 01:02 Allergies: Coded Allergies: No Known Allergies (Verified , 11/18/08) ROS Limited/Unobtainable: Yes Subjective 76 YO F admitted with Shortness of breath, now respiratory failure. Intubated and sedated. Cover for Internal Med-Dr. Barahona. ICU Objective Last Vital Signs Date Time Temp Pulse Resp B/P (MAP) Pulse Ox O2 Delivery O2 Flow Rate FiO2 09/13/17 12:51 79 24 80 09/13/17 10:17 102.8 09/13/17 07:06 99 Mechanical Ventilator 09/13/17 07:00 145/53 09/12/17 00:35 15.0 General Appearance: WD/WN, moderate distress EENT: PERRL/EOMI, normal ENT inspection Neck: non-tender, normal alignment, supple, normal inspection Cardiovascular: normal peripheral pulses, normal rate, regular rhythm, no gallop/murmur, no JVD Respiratory/Chest: respiratory distress, crackles/rales, rhonchi - bilaterally , expiratory wheezing Abdomen: normal bowel sounds, non tender, soft, no organomegaly, no mass Extremities: normal range of motion, non-tender Skin: normal pigmentation, warm/dry Laboratory Tests Test 09/12/17 22:21 09/13/17 04:00 Arterial Blood pH 7.438 (7.350-7.450) 7.449 (7.350-7.450) Arterial Blood Partial Pressure CO2 30.1 mmHg (35.0-45.0) L 28.2 mmHg (35.0-45.0) L Arterial Blood Partial Pressure O2 183.1 mmHg (75.0-100.0) H 70.2 mmHg (75.0-100.0) L Arterial Blood HCO3 19.9 mmol/L (22.0-26.0) L 19.1 mmol/L (22.0-26.0) L Arterial Blood Oxygen Saturation 98.9 % (92.0-98.0) H 95.2 % (92.0-98.0) Arterial Blood Base Excess -3.6 -4.5 Luis A Test Positive Positive White Blood Count 12.2 K/UL (4.8-10.8) H Red Blood Count 2.35 M/UL (4.20-5.40) L Hemoglobin 7.7 G/DL (12.0-16.0) L Hematocrit 23.7 % (37.0-47.0) L Mean Corpuscular Volume 101 FL (80-99) H Mean Corpuscular Hemoglobin 32.9 PG (27.0-31.0) H Mean Corpuscular Hemoglobin Concent 32.6 G/DL (32.0-36.0) Red Cell Distribution Width 12.5 % (11.6-14.8) Platelet Count 138 K/UL (150-450) L Mean Platelet Volume 8.2 FL (6.5-10.1) Neutrophils (%) (Auto) % (45.0-75.0) Lymphocytes (%) (Auto) % (20.0-45.0) Monocytes (%) (Auto) % (1.0-10.0) Eosinophils (%) (Auto) % (0.0-3.0) Basophils (%) (Auto) % (0.0-2.0) Differential Total Cells Counted 100 Neutrophils % (Manual) 90 % (45-75) H Lymphocytes % (Manual) 5 % (20-45) L Monocytes % (Manual) 5 % (1-10) Eosinophils % (Manual) 0 % (0-3) Basophils % (Manual) 0 % (0-2) Band Neutrophils 0 % (0-8) Platelet Estimate Decreased L Platelet Morphology Normal Hypochromasia 3+ Anisocytosis 1+ Macrocytosis 1+ Spherocytes 2+ Sodium Level 134 MMOL/L (136-145) L Potassium Level 3.7 MMOL/L (3.5-5.1) Chloride Level 103 MMOL/L (98-107) Carbon Dioxide Level 20 MMOL/L (21-32) L Anion Gap 11 mmol/L (5-15) Blood Urea Nitrogen 28 mg/dL (7-18) H Creatinine 1.0 MG/DL (0.55-1.30) Estimat Glomerular Filtration Rate mL/min (>60) Glucose Level 354 MG/DL (74-106) #H Hemoglobin A1c 6.3 % (4.3-6.0) H Calcium Level 8.2 MG/DL (8.5-10.1) L Phosphorus Level 2.6 MG/DL (2.5-4.9) Magnesium Level 1.9 MG/DL (1.8-2.4) Iron Level 14 ug/dL (50-175) L Total Iron Binding Capacity 129 ug/dL (250-450) L Percent Iron Saturation 11 % (15-50) L Unsaturated Iron Binding 115 ug/dL (112-346) Ferritin 507 NG/ML (8-388) H Total Bilirubin 0.5 MG/DL (0.2-1.0) Aspartate Amino Transf (AST/SGOT) 34 U/L (15-37) Alanine Aminotransferase (ALT/SGPT) 52 U/L (12-78) Alkaline Phosphatase 284 U/L (46-116) H Troponin I 0.000 ng/mL (0.000-0.056) Pro-B-Type Natriuretic Peptide 4346 pg/mL (0-125) H Total Protein 5.7 G/DL (6.4-8.2) L Albumin 1.7 G/DL (3.4-5.0) L Globulin 4.0 g/dL Albumin/Globulin Ratio 0.4 (1.0-2.7) L Vitamin B12 Level > 2000 PG/ML (193-986) H RBC Folate Hemolysate Pending Red Blood Cell Folate Pending Free Thyroxine 1.25 NG/DL (0.76-1.46) Hepatitis A IgM Antibody Pending Hepatitis B Surface Antigen Pending Hepatitis B Core IgM Antibody Pending Hepatitis C Antibody Pending Microbiology Date/Time Source Procedure Growth Status 09/11/17 16:50 Blood Blood Culture - Preliminary NO GROWTH AFTER 24 HOURS Resulted 09/11/17 16:40 Blood Blood Culture - Preliminary NO GROWTH AFTER 24 HOURS Resulted 09/11/17 17:30 Nasal Nares Influenza Types A,B Antigen (MOOKIE) - Final Complete 09/11/17 22:46 Urine,Clean Catch Urine Culture - Final Escherichia Coli Complete Intake and Output 09/12/17 09/13/17 19:00 07:00 Intake Total 1155.0 ml 1470 ml Output Total 350 ml 440 ml Balance 805.0 ml 1030 ml Intake Free Water 50 ml IV Total 1065.0 ml 1125 ml Tube Feeding 90 ml 295 ml Output Urine Total 350 ml 440 ml # Voids 2 Assessment/Plan Problem List: (1) HTN (hypertension) Assessment & Plan: Currently hypotensive. (2) Arthritis, rheumatoid (3) Parkinsons disease (4) Aplastic anemia (5) GERD (gastroesophageal reflux disease) (6) Respiratory failure Assessment & Plan: Cont vent per pulmonary (7) Pneumonia (8) Dyspnea (9) Sepsis Assessment & Plan: Blood culture neg. Continue antibiotics per ID (10) ARDS (adult respiratory distress syndrome) (11) UTI (urinary tract infection) Assessment & Plan: E.Coli. Continue zosyn Status: not improved Assessment/Plan Discussed with To Hernandez MD nephew at bedside. SINA BOWENS Sep 13, 2017 14:51
[2017-09-13] MEDS: NovoLOG Insulin Flexpen SUBQ SCH (18:40)
[2017-09-13] MEDS: Iron Sucrose 100 MG in NS 55 ML IV SCH (20:41)
[2017-09-13] MEDS: Acetaminophen 650mg/20.3ml NG PRN (20:48)
[2017-09-14] VITALS (27 sets, daily range): BP systolic 75–129; BP diastolic 37–60
[2017-09-14] MEDS: NovoLOG Insulin Flexpen SUBQ SCH ×5 (00:18→23:48)
[2017-09-14] MEDS: Vancomycin 500mg in D5W 275ml IVPB SCH (01:29)
[2017-09-14] MEDS: Heparin 5000 units/ml inj SUBQ SCH ×2 (05:50→18:00)
[2017-09-14] MEDS: Albuterol/Ipratropium 3ml neb HHN SCH ×3 (06:47→23:07)
[2017-09-14 07:05] LABS: HEMATOCRIT 19.1 % (37.0-47.0); MEAN CORPUSCULAR VOLUME 102 FL (80-99); PLATELET COUNT 120 K/UL (150-450); RED BLOOD COUNT 1.88 M/UL (4.20-5.40); RED CELL DISTRIBUTION WIDTH 12.6 % (11.6-14.8); WHITE BLOOD COUNT 10.2 K/UL (4.8-10.8)
[2017-09-14 07:14] LABS: HEMOGLOBIN 6.3 G/DL (12.0-16.0)
[2017-09-14 07:16] LABS: ANION GAP 8 mmol/L (5-15); BLOOD UREA NITROGEN 34 mg/dL (7-18); CALCIUM 7.8 MG/DL (8.5-10.1); CARBON DIOXIDE 21 MMOL/L (21-32); CHLORIDE 111 MMOL/L (98-107); CREATININE 1.1 MG/DL (0.55-1.30); POTASSIUM 3.5 MMOL/L (3.5-5.1); SODIUM 140 MMOL/L (136-145)
[2017-09-14] MEDS: Pantoprazole Inj IV SCH (08:53)
--- NOTE | 2017-09-14 10:19 | General Progress Note ---
Assessment/Plan Problem List: (1) Transaminitis ICD Codes: R74.0 - Nonspecific elevation of levels of transaminase and lactic acid dehydrogenase [LDH] SNOMED: 538479495, 555997937 (2) Anemia ICD Codes: D64.9 - Anemia, unspecified SNOMED: 761498291 (3) Diabetes mellitus ICD Codes: E11.9 - Type 2 diabetes mellitus without complications SNOMED: 74994993 (4) Respiratory failure ICD Codes: J96.90 - Respiratory failure, unspecified, unspecified whether with hypoxia or hypercapnia SNOMED: 020386198 Assessment/Plan TF iv iron ppi fu labs add colace and miralax supportive care Subjective ROS Limited/Unobtainable: No Allergies: Coded Allergies: No Known Allergies (Verified , 11/18/08) Subjective intubated in the ICU Objective Last 24 Hour Vital Signs Date Time Temp Pulse Resp B/P (MAP) Pulse Ox O2 Delivery O2 Flow Rate FiO2 09/14/17 09:26 93 28 100 09/14/17 07:05 100 09/14/17 07:05 81 18 100 Mechanical Ventilator 100 09/14/17 07:00 81 18 103/40 100 Mechanical Ventilator 100 09/14/17 06:47 79 23 100 09/14/17 06:47 79 24 100 Mechanical Ventilator 100 09/14/17 06:00 82 23 109/38 100 Mechanical Ventilator 100 09/14/17 05:00 89 29 122/54 97 Mechanical Ventilator 100 09/14/17 04:55 80 26 100 09/14/17 04:00 98.1 80 26 109/54 99 Mechanical Ventilator 100 98.1 09/14/17 04:00 100 09/14/17 04:00 80 09/14/17 03:01 83 28 100 09/14/17 03:00 85 28 97/42 95 Mechanical Ventilator 100 09/14/17 02:30 82 27 92/46 97 Mechanical Ventilator 100 09/14/17 02:00 99.2 82 31 90/45 81 Mechanical Ventilator 100 99.2 09/14/17 01:30 84 27 94/42 97 Mechanical Ventilator 100 09/14/17 01:00 83 25 88/45 100 Mechanical Ventilator 100 09/14/17 00:46 82 23 100 09/14/17 00:30 82 22 84/40 98 Mechanical Ventilator 100 3/4/18 00:13 85 26 97 Mechanical Ventilator 80 09/14/17 00:00 99.8 79 18 75/37 100 Mechanical Ventilator 100 99.8 09/14/17 00:00 100 09/13/17 23:55 100 09/13/17 23:55 83 26 97 Mechanical Ventilator 100 09/13/17 23:23 85 09/13/17 23:00 87 27 85/41 97 Mechanical Ventilator 100 09/13/17 22:56 88 28 100 09/13/17 22:00 100.6 105 30 92/36 97 Mechanical Ventilator 100 100.6 09/13/17 21:18 100.9 09/13/17 21:16 129 34 100 09/13/17 21:00 134 29 115/50 89 Mechanical Ventilator 100 09/13/17 20:48 100.9 09/13/17 20:00 100.9 134 31 148/53 81 Mechanical Ventilator 80 100.9 09/13/17 20:00 80 09/13/17 19:26 130 34 80 09/13/17 19:18 129 09/13/17 19:00 90 30 122/47 99 Mechanical Ventilator 09/13/17 18:00 82 28 112/40 97 Mechanical Ventilator 09/13/17 17:00 84 27 120/47 97 Mechanical Ventilator 09/13/17 16:45 80 26 80 09/13/17 16:00 81 25 104/50 97 Mechanical Ventilator 09/13/17 16:00 80 09/13/17 16:00 87 09/13/17 15:00 82 23 99/40 95 Mechanical Ventilator 09/13/17 14:43 93 22 98 Mechanical Ventilator 80 09/13/17 14:37 85 18 80 09/13/17 14:36 83 18 97 Mechanical Ventilator 80 09/13/17 14:00 91 23 122/55 98 Mechanical Ventilator 09/13/17 13:00 83 23 96/42 99 Mechanical Ventilator 09/13/17 12:51 79 24 80 09/13/17 12:00 87 09/13/17 12:00 80 09/13/17 12:00 84 22 95/35 100 Mechanical Ventilator 09/13/17 11:08 96 25 80 09/13/17 11:00 90 24 89/36 100 Mechanical Ventilator 09/13/17 10:47 102.3 Intake and Output 09/13/17 09/14/17 19:00 07:00 Intake Total 1207.5 ml 1755 ml Output Total 310 ml 345 ml Balance 897.5 ml 1410 ml IV Total 787.5 ml 1335 ml Tube Feeding 420 ml 420 ml Output Urine Total 310 ml 345 ml Laboratory Tests 09/14/17 04:00: Arterial Blood pH 7.385, Arterial Blood Partial Pressure CO2 31.4L, Arterial Blood Partial Pressure O2 212.2H, Arterial Blood HCO3 18.4L, Arterial Blood Oxygen Saturation 99.0H, Arterial Blood Base Excess -6.1, Luis A Test Positive 09/14/17 04:40: White Blood Count 10.2, Red Blood Count 1.88L, Hemoglobin 6.3*L, Hematocrit 19.1L, Mean Corpuscular Volume 102H, Mean Corpuscular Hemoglobin 33.6H, Mean Corpuscular Hemoglobin Concent 33.0, Red Cell Distribution Width 12.6, Platelet Count 120L, Mean Platelet Volume 7.9, Neutrophils (%) (Auto) , Lymphocytes (%) ( Auto) , Monocytes (%) (Auto) , Eosinophils (%) (Auto) , Basophils (%) (Auto) , Differential Total Cells Counted 100, Neutrophils % (Manual) 86H, Lymphocytes % (Manual) 9L, Monocytes % (Manual) 5, Eosinophils % (Manual) 0, Basophils % ( Manual) 0, Band Neutrophils 0, Platelet Estimate DecreasedL, Platelet Morphology Normal, Polychromasia 1+, Hypochromasia 1+, Macrocytosis 1+, Sodium Level 140, Potassium Level 3.5, Chloride Level 111H, Carbon Dioxide Level 21, Anion Gap 8, Blood Urea Nitrogen 34H, Creatinine 1.1, Estimat Glomerular Filtration Rate , Glucose Level 152#H, Calcium Level 7.8L Height (Feet): 5 Height (Inches): 0.00 Weight (Pounds): 91 General Appearance: no apparent distress EENT: normal ENT inspection Neck: supple Cardiovascular: normal rate Respiratory/Chest: decreased breath sounds Abdomen: normal bowel sounds, non tender, soft Extremities: non-tender KIT GONZALEZ Sep 14, 2017 10:19
--- NOTE | 2017-09-14 11:07 | Pulmonolgy Critical Care Note ---
Critical Care - Asmt/Plan Assessment/Plan: ASSESSMENT Acute hypoxemic RF requiring intubation ARDS severe sepsis Aspiration PNA UTI with GNB hypo Na Abnormal LFT anemia of chronci disese HTN moderate AI moderate pulmonary HTN RA LBBB severe protein calorie malnutrition PLAN OF CARE ICU vent support, pulm toilet daily CXR and ABG , titrate settings as needed stable ABG this am cardio follows per cardio not clinically in CHF ECHO with EF 55 and RVSP of 49, moderate AI Abx urine cx+ E coli ,influenza negative droplet precautions empiric Tamiflu cooling measures NGT feeding strict aspiration precautions DVT GI prophylaxis monitor lytes and correct as needed anemia w/up c/w anemia of chronci disease transfuse today stool OB + GI follows , monitor counts case discussed and evaluated by supervising physician Critical Care - Objective Last 24 Hour Vital Signs Date Time Temp Pulse Resp B/P (MAP) Pulse Ox O2 Delivery O2 Flow Rate FiO2 09/14/17 10:39 95 27 100 09/14/17 09:26 93 28 100 09/14/17 07:05 100 09/14/17 07:05 81 18 100 Mechanical Ventilator 100 09/14/17 07:00 81 18 103/40 100 Mechanical Ventilator 100 09/14/17 06:47 79 23 100 09/14/17 06:47 79 24 100 Mechanical Ventilator 100 09/14/17 06:00 82 23 109/38 100 Mechanical Ventilator 100 09/14/17 05:00 89 29 122/54 97 Mechanical Ventilator 100 09/14/17 04:55 80 26 100 09/14/17 04:00 98.1 80 26 109/54 99 Mechanical Ventilator 100 98.1 09/14/17 04:00 100 09/14/17 04:00 80 09/14/17 03:01 83 28 100 09/14/17 03:00 85 28 97/42 95 Mechanical Ventilator 100 09/14/17 02:30 82 27 92/46 97 Mechanical Ventilator 100 09/14/17 02:00 99.2 82 31 90/45 81 Mechanical Ventilator 100 99.2 09/14/17 01:30 84 27 94/42 97 Mechanical Ventilator 100 09/14/17 01:00 83 25 88/45 100 Mechanical Ventilator 100 09/14/17 00:46 82 23 100 09/14/17 00:30 82 22 84/40 98 Mechanical Ventilator 100 09/14/17 00:13 85 26 97 Mechanical Ventilator 80 09/14/17 00:00 99.8 79 18 75/37 100 Mechanical Ventilator 100 99.8 09/14/17 00:00 100 09/13/17 23:55 100 09/13/17 23:55 83 26 97 Mechanical Ventilator 100 09/13/17 23:23 85 09/13/17 23:00 87 27 85/41 97 Mechanical Ventilator 100 09/13/17 22:56 88 28 100 09/13/17 22:00 100.6 105 30 92/36 97 Mechanical Ventilator 100 100.6 09/13/17 21:18 100.9 09/13/17 21:16 129 34 100 09/13/17 21:00 134 29 115/50 89 Mechanical Ventilator 100 09/13/17 20:48 100.9 09/13/17 20:00 100.9 134 31 148/53 81 Mechanical Ventilator 80 100.9 09/13/17 20:00 80 09/13/17 19:26 130 34 80 09/13/17 19:18 129 09/13/17 19:00 90 30 122/47 99 Mechanical Ventilator 09/13/17 18:00 82 28 112/40 97 Mechanical Ventilator 09/13/17 17:00 84 27 120/47 97 Mechanical Ventilator 09/13/17 16:45 80 26 80 09/13/17 16:00 81 25 104/50 97 Mechanical Ventilator 09/13/17 16:00 80 09/13/17 16:00 87 09/13/17 15:00 82 23 99/40 95 Mechanical Ventilator 09/13/17 14:43 93 22 98 Mechanical Ventilator 80 09/13/17 14:37 85 18 80 09/13/17 14:36 83 18 97 Mechanical Ventilator 80 09/13/17 14:00 91 23 122/55 98 Mechanical Ventilator 09/13/17 13:00 83 23 96/42 99 Mechanical Ventilator 09/13/17 12:51 79 24 80 09/13/17 12:00 87 09/13/17 12:00 80 09/13/17 12:00 84 22 95/35 100 Mechanical Ventilator 09/13/17 11:08 96 25 80 Objective: Status: sedated Condition: critical HEENT: atraumatic, normocephalic, other - OP with ET in place, intact, NGT Lungs: few scattered rhonchi Heart: HR/BP stable Abdomen: soft Extremities: no C/C/E Micro: Microbiology Date/Time Source Procedure Growth Status 09/11/17 16:50 Blood Blood Culture - Preliminary NO GROWTH AFTER 48 HOURS Resulted 09/11/17 16:40 Blood Blood Culture - Preliminary NO GROWTH AFTER 48 HOURS Resulted 09/13/17 01:30 Sputum Gram Stain - Final Resulted 09/13/17 01:30 Sputum Sputum Culture - Preliminary Resulted 09/11/17 20:00 Nasal Nares MRSA Culture - Final NO METHICILLIN RESISTANT STAPH AUREUS... Complete 09/11/17 17:30 Nasal Nares Influenza Types A,B Antigen (MOOKIE) - Final Complete 09/11/17 22:46 Urine,Clean Catch Urine Culture - Final Escherichia Coli Complete 09/11/17 20:00 Rectum VRE Culture - Final NO VANCOMYCIN RESISTANT ENTEROCOCCUS ... Complete Accucheck: 195 Critical Care - Subjective Interval Events: remains intubated no signs of resp distress on current settings, ABG stable leuk and fever resolved today HH down, Hgb-6.3 Condition: critical IV Access: peripheral EKG Rhythm: Sinus Rhythm FI02: 100 Vent Support Breath Rate: 18 Vent Support Mode: AC Vent Tidal Volume: 500 Sputum Amount: Small PEEP: 5.0 PIP: 45 Fluids: NS at 75 Tube Feeding Amount: 35 I&O: Intake and Output 09/13/17 09/14/17 19:00 07:00 Intake Total 1207.5 ml 1755 ml Output Total 310 ml 345 ml Balance 897.5 ml 1410 ml IV Total 787.5 ml 1335 ml Tube Feeding 420 ml 420 ml Output Urine Total 310 ml 345 ml CXR: Extensive bilateral infiltrates versus edema again noted unchanged. ET-Tube: 7.5 ET Position: 21 [place] (MercedesHuma isaacs NP Sep 14, 2017 11:07
--- NOTE | 2017-09-14 12:13 | Diagnostic Imaging Report ---
Indication: Dyspnea Comparison: 09/13/2017 A single view chest radiograph was obtained. Findings: Extensive bilateral infiltrates versus edema again noted unchanged. IMPRESSION: No change
--- NOTE | 2017-09-14 14:34 | Internal Med Progress Note ---
Subjective Date of Service: Sep 14, 2017 Physician Name Sina Bowens Attending Physician Jesus Barahona MD Current Medications Medications (Trade) Dose Ordered Sig/Hermes Route PRN Reason Start Time Stop Time Status Last Admin Dose Admin Acetaminophen (Tylenol) 650 mg EVERY 6 HOURS PRN NG Fever/Headache/Mild Pain 09/13/17 20:45 10/13/17 20:44 09/13/17 20:48 Albuterol/ Ipratropium (Albuterol/ Ipratropium) 3 ml Q4H PRN HHN Shortness of Breath 09/11/17 23:15 09/16/17 23:14 Albuterol/ Ipratropium (Albuterol/ Ipratropium) 3 ml Q8HR HHN 09/11/17 23:15 09/16/17 23:14 09/14/17 06:47 Dextrose (Dextrose 50%) STAT PRN IV Hypoglycemia 09/13/17 15:00 10/13/17 14:59 Docusate Sodium (Colace) 100 mg TWICE A DAY ORAL 09/14/17 18:00 10/14/17 17:59 Heparin Sodium (Porcine) (Heparin 5000 units/ml) 5,000 units Q12H SUBQ 09/13/17 18:00 10/13/17 17:59 Insulin Aspart (NovoLOG) EVERY 6 HOURS SUBQ 09/13/17 18:00 10/13/17 17:59 09/14/17 11:16 Iron Sucrose 100 mg/Sodium Chloride 60 ml @ 240 mls/hr BEDTIME IV 09/13/17 21:00 09/17/17 21:14 09/13/17 20:41 Levofloxacin 100 ml @ 100 mls/hr Q24H IVPB 09/12/17 20:00 09/19/17 19:59 09/13/17 20:06 Lorazepam (Ativan 2mg/ml 1ml) 2 mg Q2HR PRN IV For Anxiety 09/12/17 22:00 09/19/17 21:59 09/13/17 02:29 Morphine Sulfate (Morphine Sulfate) 4 mg Q4H PRN IVP For Pain 09/12/17 10:45 09/19/17 10:44 09/13/17 10:17 Oseltamivir Phosphate (Tamiflu) 30 mg BID ORAL 09/12/17 20:00 09/17/17 19:59 09/14/17 08:53 Pantoprazole (Protonix) 40 mg DAILY IV 09/13/17 09:00 10/13/17 08:59 09/14/17 08:53 Polyethylene Glycol (Miralax) 17 gm BEDTIME ORAL 09/14/17 21:00 10/14/17 20:59 Sodium Chloride 1,000 ml @ 75 mls/hr [id number] IV 09/13/17 19:50 10/13/17 19:49 09/14/17 11:08 Vancomycin HCl (Vanco rx to dose) 1 ea DAILY PRN MISC Per rx protocol 09/11/17 23:15 10/11/17 23:14 Vancomycin HCl 500 mg/Dextrose 275 ml @ 275 mls/hr Q24H IVPB 09/13/17 01:00 09/18/17 00:59 09/14/17 01:29 Allergies: Coded Allergies: No Known Allergies (Verified , 11/18/08) ROS Limited/Unobtainable: Yes Subjective 76 YO F admitted with Shortness of breath, now respiratory failure. Intubated and sedated. Cover for Internal Med-Dr. Barahona. ICU Objective Last Vital Signs Date Time Temp Pulse Resp B/P (MAP) Pulse Ox O2 Delivery O2 Flow Rate FiO2 09/14/17 14:00 85 23 120/60 100 Mechanical Ventilator 100 09/14/17 12:00 98.8 98.8 09/12/17 00:35 15.0 General Appearance: lethargic, thin EENT: normal ENT inspection Neck: non-tender, normal alignment, supple Cardiovascular: normal peripheral pulses, normal rate, regular rhythm, no gallop/murmur, no JVD Respiratory/Chest: respiratory distress, crackles/rales, rhonchi - bilaterally , expiratory wheezing Abdomen: normal bowel sounds, non tender, soft, no organomegaly, no mass Skin: normal pigmentation, warm/dry Laboratory Tests Test 09/14/17 04:00 09/14/17 04:40 Arterial Blood pH 7.385 (7.350-7.450) Arterial Blood Partial Pressure CO2 31.4 mmHg (35.0-45.0) L Arterial Blood Partial Pressure O2 212.2 mmHg (75.0-100.0) H Arterial Blood HCO3 18.4 mmol/L (22.0-26.0) L Arterial Blood Oxygen Saturation 99.0 % (92.0-98.0) H Arterial Blood Base Excess -6.1 Luis A Test Positive White Blood Count 10.2 K/UL (4.8-10.8) Red Blood Count 1.88 M/UL (4.20-5.40) L Hemoglobin 6.3 G/DL (12.0-16.0) *L Hematocrit 19.1 % (37.0-47.0) L Mean Corpuscular Volume 102 FL (80-99) H Mean Corpuscular Hemoglobin 33.6 PG (27.0-31.0) H Mean Corpuscular Hemoglobin Concent 33.0 G/DL (32.0-36.0) Red Cell Distribution Width 12.6 % (11.6-14.8) Platelet Count 120 K/UL (150-450) L Mean Platelet Volume 7.9 FL (6.5-10.1) Neutrophils (%) (Auto) % (45.0-75.0) Lymphocytes (%) (Auto) % (20.0-45.0) Monocytes (%) (Auto) % (1.0-10.0) Eosinophils (%) (Auto) % (0.0-3.0) Basophils (%) (Auto) % (0.0-2.0) Differential Total Cells Counted 100 Neutrophils % (Manual) 86 % (45-75) H Lymphocytes % (Manual) 9 % (20-45) L Monocytes % (Manual) 5 % (1-10) Eosinophils % (Manual) 0 % (0-3) Basophils % (Manual) 0 % (0-2) Band Neutrophils 0 % (0-8) Platelet Estimate Decreased L Platelet Morphology Normal Polychromasia 1+ Hypochromasia 1+ Macrocytosis 1+ Sodium Level 140 MMOL/L (136-145) Potassium Level 3.5 MMOL/L (3.5-5.1) Chloride Level 111 MMOL/L (98-107) H Carbon Dioxide Level 21 MMOL/L (21-32) Anion Gap 8 mmol/L (5-15) Blood Urea Nitrogen 34 mg/dL (7-18) H Creatinine 1.1 MG/DL (0.55-1.30) Estimat Glomerular Filtration Rate mL/min (>60) Glucose Level 152 MG/DL (74-106) #H Calcium Level 7.8 MG/DL (8.5-10.1) L Microbiology Date/Time Source Procedure Growth Status 09/11/17 16:50 Blood Blood Culture - Preliminary NO GROWTH AFTER 48 HOURS Resulted 09/11/17 16:40 Blood Blood Culture - Preliminary NO GROWTH AFTER 48 HOURS Resulted 09/13/17 01:30 Sputum Gram Stain - Final Resulted 09/13/17 01:30 Sputum Sputum Culture - Preliminary Resulted 09/11/17 20:00 Nasal Nares MRSA Culture - Final NO METHICILLIN RESISTANT STAPH AUREUS... Complete 09/11/17 17:30 Nasal Nares Influenza Types A,B Antigen (MOOKIE) - Final Complete 09/11/17 22:46 Urine,Clean Catch Urine Culture - Final Escherichia Coli Complete 09/11/17 20:00 Rectum VRE Culture - Final NO VANCOMYCIN RESISTANT ENTEROCOCCUS ... Complete Intake and Output 09/13/17 09/14/17 19:00 07:00 Intake Total 1207.5 ml 1755 ml Output Total 310 ml 345 ml Balance 897.5 ml 1410 ml IV Total 787.5 ml 1335 ml Tube Feeding 420 ml 420 ml Output Urine Total 310 ml 345 ml Assessment/Plan Problem List: (1) HTN (hypertension) Assessment & Plan: Currently hypotensive. (2) Arthritis, rheumatoid (3) Parkinsons disease (4) Aplastic anemia (5) GERD (gastroesophageal reflux disease) (6) Respiratory failure Assessment & Plan: Cont vent per pulmonary (7) Pneumonia (8) Dyspnea (9) Sepsis Assessment & Plan: Blood culture neg. Continue antibiotics per ID (10) ARDS (adult respiratory distress syndrome) (11) UTI (urinary tract infection) Assessment & Plan: E.Coli. Continue zosyn (12) Anemia Assessment & Plan: Transfuse 2 units PRBC today Status: not improved Assessment/Plan Discussed with To Hernandez MD nephew at bedside. SINA BOWENS Sep 14, 2017 14:34
--- NOTE | 2017-09-14 15:00 | Cardiology Report ---
APPROVED REPORT EXAM: Two-dimensional and M-mode echocardiogram with Doppler and color Doppler. INDICATION Congestive Heart Failure M-Mode DIMENSIONS IVSd1.0 (0.7-1.1cm)Left Atrium (MM)2.9 (1.6-4.0cm) LVDd3.5 (3.5-5.6cm)Aortic Root2.7 (2.0-3.7cm) PWd0.9 (0.7-1.1cm)Aortic Cusp Exc.1.9 (1.5-2.0cm) LVDs2.4 (2.5-4.0cm) PWs1.3 cm Technically difficult study due to patient on ventilator. Study quality precludes accurate assessment of regional wall motion. Normal left ventricular chamber size, systolic function and wall motion. Left ventricular ejection fraction estimated to be 55 %. No evidence of left ventricular hypertrophy. Trivial pericardial effusion. All other cardiac chamber sizes are within normal limits. Focal aortic valve sclerosis with adequate cusp excursion. Thickened mitral valve leaflets with normal excursion. Mild mitral annulus and aortic root calcification. Pulmonic valve not visualized. Normal tricuspid valve structure. IVC is normal in size with physiological collapase. A color flow and spectral Doppler study was performed and revealed: Moderate aortic insufficiency. Trace mitral regurgitation. reduced left ventricular relaxation c/w impaired relaxation diastolic dysfunction. Mild tricuspid regurgitation. Tricuspid systolic velocities suggests peak right ventricular systolic pressure of 49 mmHg, consistent with moderate pulmonary hypertension.
[2017-09-14] MEDS: LORazepam Inj 2mg/ml 1ml IV PRN (15:24)
--- NOTE | 2017-09-14 16:12 | Cardiology Report ---
APPROVED REPORT EKG Measurement Heart [id number] Sinus rhythm with premature supraventricular complexes Low voltage QRS Septal infarct, age undetermined Abnormal ECG
[2017-09-14 16:13] LABS: HEMATOCRIT 30.3 % (37.0-47.0); HEMOGLOBIN 10.1 G/DL (12.0-16.0); MEAN CORPUSCULAR VOLUME 97 FL (80-99); PLATELET COUNT 146 K/UL (150-450); RED BLOOD COUNT 3.12 M/UL (4.20-5.40); RED CELL DISTRIBUTION WIDTH 14.2 % (11.6-14.8)
[2017-09-14] MEDS ORDERED: Tubing Blood Filter IV ONE (16:51)
[2017-09-14] MEDS ORDERED: NS 275ml ONE (16:51)
[2017-09-14] MEDS ORDERED: Tubing IV Secondary IV ONE ×4 (16:51→18:31)
--- NOTE | 2017-09-14 17:07 | Infectious Diseases Prog Note ---
Assessment/Plan Assessment/Plan ASSESSMENT: The patient is a 76-year-old female w Leukocytosis Community-acquired vs healthcare-associated pneumonia (the patient has been recently hospitalized in [facility]). Probable influenza despite of negative influenza screening test. Abnormal liver function tests, rule out biliary disease Hep panel : neg Probable UCx : E coli Chest x-ray, extensive bilateral infiltrates versus pulmonary edema. HTN GERD History of auditory hallucination. Depression. Anemia. Rheumatoid arthritis. History of gastritis. PLAN: continue the patient on vancomycin and Levaquin and Tamiflu d# 3 Monitor CBC. Monitor BMP. Monitor cultures (blood, urine and sputum). Monitor chest x-ray. Ultrasound of the abdomen. Subjective Allergies: Coded Allergies: No Known Allergies (Verified , 11/18/08) Subjective afebrile Objective Vital Signs Last 24 Hour Vital Signs Date Time Temp Pulse Resp B/P (MAP) Pulse Ox O2 Delivery O2 Flow Rate FiO2 09/14/17 16:00 80 09/14/17 16:00 100 09/14/17 16:00 97.8 81 26 97/58 100 Mechanical Ventilator 100 97.8 09/14/17 15:20 85 26 97 Mechanical Ventilator 80 09/14/17 15:20 100 09/14/17 15:01 93 22 100 Mechanical Ventilator 100 09/14/17 15:00 97 29 129/50 100 Mechanical Ventilator 100 09/14/17 14:58 93 22 100 09/14/17 14:00 85 23 120/60 100 Mechanical Ventilator 100 09/14/17 13:37 77 21 100 09/14/17 13:00 82 24 121/60 100 Mechanical Ventilator 100 09/14/17 12:00 98.8 86 24 116/42 100 Mechanical Ventilator 100 98.8 09/14/17 12:00 100 09/14/17 12:00 80 09/14/17 11:00 86 25 121/51 100 Mechanical Ventilator 100 09/14/17 10:39 95 27 100 09/14/17 10:00 94 25 123/47 100 Mechanical Ventilator 100 09/14/17 09:26 93 28 100 09/14/17 09:00 89 25 121/44 100 Mechanical Ventilator 100 09/14/17 08:00 80 09/14/17 08:00 99.3 81 25 128/44 100 Mechanical Ventilator 100 99.3 09/14/17 08:00 100 09/14/17 07:05 100 09/14/17 07:05 81 18 100 Mechanical Ventilator 100 09/14/17 07:00 81 18 103/40 100 Mechanical Ventilator 100 09/14/17 06:47 79 23 100 09/14/17 06:47 79 24 100 Mechanical Ventilator 100 09/14/17 06:00 82 23 109/38 100 Mechanical Ventilator 100 09/14/17 05:00 89 29 122/54 97 Mechanical Ventilator 100 09/14/17 04:55 80 26 100 09/14/17 04:00 98.1 80 26 109/54 99 Mechanical Ventilator 100 98.1 09/14/17 04:00 100 09/14/17 04:00 80 09/14/17 03:01 83 28 100 09/14/17 03:00 85 28 97/42 95 Mechanical Ventilator 100 09/14/17 02:30 82 27 92/46 97 Mechanical Ventilator 100 09/14/17 02:00 99.2 82 31 90/45 81 Mechanical Ventilator 100 99.2 09/14/17 01:30 84 27 94/42 97 Mechanical Ventilator 100 09/14/17 01:00 83 25 88/45 100 Mechanical Ventilator 100 09/14/17 00:46 82 23 100 09/14/17 00:30 82 22 84/40 98 Mechanical Ventilator 100 09/14/17 00:13 85 26 97 Mechanical Ventilator 80 09/14/17 00:00 99.8 79 18 75/37 100 Mechanical Ventilator 100 99.8 09/14/17 00:00 100 09/13/17 23:55 100 09/13/17 23:55 83 26 97 Mechanical Ventilator 100 09/13/17 23:23 85 09/13/17 23:00 87 27 85/41 97 Mechanical Ventilator 100 09/13/17 22:56 88 28 100 09/13/17 22:00 100.6 105 30 92/36 97 Mechanical Ventilator 100 100.6 09/13/17 21:18 100.9 09/13/17 21:16 129 34 100 09/13/17 21:00 134 29 115/50 89 Mechanical Ventilator 100 09/13/17 20:48 100.9 09/13/17 20:00 100.9 134 31 148/53 81 Mechanical Ventilator 80 100.9 09/13/17 20:00 80 09/13/17 19:26 130 34 80 3/3/18 19:18 129 09/13/17 19:00 90 30 122/47 99 Mechanical Ventilator 09/13/17 18:00 82 28 112/40 97 Mechanical Ventilator 09/13/17 17:00 84 27 120/47 97 Mechanical Ventilator Height (Feet): 5 Height (Inches): 0.00 Weight (Pounds): 91 HEENT: anicteric Respiratory/Chest: normal breath sounds, rhonchi - bilaterally Cardiovascular: regular rhythm Abdomen: no organomegaly Microbiology Date/Time Source Procedure Growth Status 09/13/17 01:30 Sputum Gram Stain - Final Resulted 09/13/17 01:30 Sputum Sputum Culture - Preliminary Resulted 09/11/17 20:00 Nasal Nares MRSA Culture - Final NO METHICILLIN RESISTANT STAPH AUREUS... Complete 09/11/17 17:30 Nasal Nares Influenza Types A,B Antigen (MOOKIE) - Final Complete 09/11/17 22:46 Urine,Clean Catch Urine Culture - Final Escherichia Coli Complete 09/11/17 20:00 Rectum VRE Culture - Final NO VANCOMYCIN RESISTANT ENTEROCOCCUS ... Complete Laboratory Tests Test 09/14/17 04:00 09/14/17 04:40 09/14/17 11:00 09/14/17 15:48 Arterial Blood pH 7.385 (7.350-7.450) Arterial Blood Partial Pressure CO2 31.4 mmHg (35.0-45.0) L Arterial Blood Partial Pressure O2 212.2 mmHg (75.0-100.0) H Arterial Blood HCO3 18.4 mmol/L (22.0-26.0) L Arterial Blood Oxygen Saturation 99.0 % (92.0-98.0) H Arterial Blood Base Excess -6.1 Luis A Test Positive White Blood Count 10.2 K/UL (4.8-10.8) 17.0 K/UL (4.8-10.8) #H Red Blood Count 1.88 M/UL (4.20-5.40) L 3.12 M/UL (4.20-5.40) L Hemoglobin 6.3 G/DL (12.0-16.0) *L 10.1 G/DL (12.0-16.0) #L Hematocrit 19.1 % (37.0-47.0) L 30.3 % (37.0-47.0) #L Mean Corpuscular Volume 102 FL (80-99) H 97 FL (80-99) Mean Corpuscular Hemoglobin 33.6 PG (27.0-31.0) H 32.3 PG (27.0-31.0) H Mean Corpuscular Hemoglobin Concent 33.0 G/DL (32.0-36.0) 33.3 G/DL (32.0-36.0) Red Cell Distribution Width 12.6 % (11.6-14.8) 14.2 % (11.6-14.8) Platelet Count 120 K/UL (150-450) L 146 K/UL (150-450) L Mean Platelet Volume 7.9 FL (6.5-10.1) 8.5 FL (6.5-10.1) Neutrophils (%) (Auto) % (45.0-75.0) % (45.0-75.0) Lymphocytes (%) (Auto) % (20.0-45.0) % (20.0-45.0) Monocytes (%) (Auto) % (1.0-10.0) % (1.0-10.0) Eosinophils (%) (Auto) % (0.0-3.0) % (0.0-3.0) Basophils (%) (Auto) % (0.0-2.0) % (0.0-2.0) Differential Total Cells Counted 100 Neutrophils % (Manual) 86 % (45-75) H Pending Lymphocytes % (Manual) 9 % (20-45) L Pending Monocytes % (Manual) 5 % (1-10) Eosinophils % (Manual) 0 % (0-3) Basophils % (Manual) 0 % (0-2) Band Neutrophils 0 % (0-8) Platelet Estimate Decreased L Pending Platelet Morphology Normal Pending Polychromasia 1+ Hypochromasia 1+ Macrocytosis 1+ Sodium Level 140 MMOL/L (136-145) Potassium Level 3.5 MMOL/L (3.5-5.1) Chloride Level 111 MMOL/L (98-107) H Carbon Dioxide Level 21 MMOL/L (21-32) Anion Gap 8 mmol/L (5-15) Blood Urea Nitrogen 34 mg/dL (7-18) H Creatinine 1.1 MG/DL (0.55-1.30) Estimat Glomerular Filtration Rate mL/min (>60) Glucose Level 152 MG/DL (74-106) #H Calcium Level 7.8 MG/DL (8.5-10.1) L Stool Occult Blood Pending Current Medications Medications (Trade) Dose Ordered Sig/Hermes Route PRN Reason Start Time Stop Time Status Last Admin Dose Admin Acetaminophen (Tylenol) 650 mg EVERY 6 HOURS PRN NG Fever/Headache/Mild Pain 09/13/17 20:45 10/13/17 20:44 09/13/17 20:48 Albuterol/ Ipratropium (Albuterol/ Ipratropium) 3 ml Q4H PRN HHN Shortness of Breath 09/11/17 23:15 09/16/17 23:14 Albuterol/ Ipratropium (Albuterol/ Ipratropium) 3 ml Q8HR HHN 09/11/17 23:15 09/16/17 23:14 09/14/17 15:01 Dextrose (Dextrose 50%) STAT PRN IV Hypoglycemia 09/13/17 15:00 10/13/17 14:59 Docusate Sodium (Colace) 100 mg TWICE A DAY ORAL 09/14/17 18:00 10/14/17 17:59 Heparin Sodium (Porcine) (Heparin 5000 units/ml) 5,000 units Q12H SUBQ 09/13/17 18:00 10/13/17 17:59 Insulin Aspart (NovoLOG) EVERY 6 HOURS SUBQ 09/13/17 18:00 10/13/17 17:59 09/14/17 11:16 Iron Sucrose 100 mg/Sodium Chloride 60 ml @ 240 mls/hr BEDTIME IV 09/13/17 21:00 09/17/17 21:14 09/13/17 20:41 Levofloxacin 100 ml @ 100 mls/hr Q24H IVPB 09/12/17 20:00 09/19/17 19:59 09/13/17 20:06 Lorazepam (Ativan 2mg/ml 1ml) 2 mg Q2HR PRN IV For Anxiety 09/12/17 22:00 09/19/17 21:59 09/14/17 15:24 Morphine Sulfate (Morphine Sulfate) 4 mg Q4H PRN IVP For Pain 09/12/17 10:45 09/19/17 10:44 09/13/17 10:17 Oseltamivir Phosphate (Tamiflu) 30 mg BID ORAL 09/12/17 20:00 09/17/17 19:59 09/14/17 08:53 Pantoprazole (Protonix) 40 mg DAILY IV 09/13/17 09:00 10/13/17 08:59 09/14/17 08:53 Polyethylene Glycol (Miralax) 17 gm BEDTIME ORAL 09/14/17 21:00 10/14/17 20:59 Sodium Chloride 1,000 ml @ 75 mls/hr [id number] IV 09/13/17 19:50 10/13/17 19:49 09/14/17 11:08 Vancomycin HCl (Vanco rx to dose) 1 ea DAILY PRN MISC Per rx protocol 09/11/17 23:15 10/11/17 23:14 Vancomycin HCl 500 mg/Dextrose 275 ml @ 275 mls/hr Q24H IVPB 09/13/17 01:00 09/18/17 00:59 09/14/17 01:29 DEBBIE MURRY M.D. Sep 14, 2017 17:07
[2017-09-14] MEDS ORDERED: D5NS 1000ml IV ONE ×2 (17:17→18:23)
[2017-09-14] MEDS ORDERED: D5W 275ml ONE (17:17)
[2017-09-14] MEDS: Docusate 100mg cap ORAL SCH (18:00)
[2017-09-14] MEDS: Miralax 17gm pkt ORAL SCH (21:21)
[2017-09-14] MEDS: Iron Sucrose 100 MG in NS 55 ML IV SCH (21:22)
[2017-09-15] VITALS (24 sets, daily range): BP systolic 101–176; BP diastolic 43–74
[2017-09-15] MEDS: Acetaminophen 650mg/20.3ml NG PRN ×4 (00:06→20:53)
[2017-09-15] MEDS: Vancomycin 500mg in D5W 275ml IVPB SCH ×2 (02:37→13:23)
[2017-09-15] MEDS: NovoLOG Insulin Flexpen SUBQ SCH ×4 (05:44→23:50)
[2017-09-15] MEDS: Heparin 5000 units/ml inj SUBQ SCH ×2 (05:44→17:17)
[2017-09-15 07:49] LABS: HEMATOCRIT 26.5 % (37.0-47.0); HEMOGLOBIN 8.7 G/DL (12.0-16.0); MEAN CORPUSCULAR VOLUME 97 FL (80-99); PLATELET COUNT 105 K/UL (150-450); RED BLOOD COUNT 2.73 M/UL (4.20-5.40); RED CELL DISTRIBUTION WIDTH 14.9 % (11.6-14.8); WHITE BLOOD COUNT 12.6 K/UL (4.8-10.8)
[2017-09-15] MEDS: Albuterol/Ipratropium 3ml neb HHN SCH ×3 (08:06→22:00)
[2017-09-15 08:25] LABS: ANION GAP 12 mmol/L (5-15); BLOOD UREA NITROGEN 29 mg/dL (7-18); CALCIUM 7.7 MG/DL (8.5-10.1); CARBON DIOXIDE 19 MMOL/L (21-32); CHLORIDE 112 MMOL/L (98-107); POTASSIUM 3.2 MMOL/L (3.5-5.1); SODIUM 143 MMOL/L (136-145)
[2017-09-15] MEDS: Docusate 100mg cap ORAL SCH ×2 (09:00→19:23)
[2017-09-15] MEDS: Pantoprazole Inj IV SCH (09:28)
--- NOTE | 2017-09-15 10:40 | Pulmonolgy Critical Care Note ---
Critical Care - Asmt/Plan Problems: (1) ARDS (adult respiratory distress syndrome) (2) Aspiration pneumonia (3) Protein-calorie malnutrition, severe (4) Diabetes mellitus (5) Anemia Respiratory: monitor respiratory rate, adjust FIO2, CXR Cardiac: continue to monitor HR/BP Renal: F/U I&O, keep IV fluid Infectious Disease: check cultures Gastrointestinal: continue feedings/current rate Endocrine: monitor blood sugar, check TSH, check HgA1C, continue sliding scale insulin Hematologic: monitor H/H, transfuse if hgb<8.5 Neurologic: PRN Ativan, PRN Morphine, keep patient comfortable Affect: PRN ativan Prophylaxis: Protonix, Heparin Notes Reviewed: core inspector, cardio Discussed with: nurses, consultants, bilingual patient support caseworker, family member Critical Care - Objective Last 24 Hour Vital Signs Date Time Temp Pulse Resp B/P (MAP) Pulse Ox O2 Delivery O2 Flow Rate FiO2 09/15/17 10:00 98 26 129/53 100 Mechanical Ventilator 90 09/15/17 09:00 102 23 120/45 100 Mechanical Ventilator 90 09/15/17 08:16 116 31 99 Mechanical Ventilator 09/15/17 08:06 117 31 98 Mechanical Ventilator 90 09/15/17 08:00 100.1 106 24 137/56 100 Mechanical Ventilator 90 100.1 09/15/17 08:00 69 09/15/17 08:00 90 09/15/17 07:06 117 31 90 09/15/17 07:00 120 33 139/55 99 Mechanical Ventilator 80 09/15/17 06:00 119 32 140/58 98 Mechanical Ventilator 80 09/15/17 05:30 106 28 90 09/15/17 05:00 100 28 139/61 98 Mechanical Ventilator 80 09/15/17 04:00 80 09/15/17 04:00 98.6 102 29 123/43 96 Mechanical Ventilator 80 98.6 09/15/17 03:36 89 09/15/17 03:04 87 22 90 09/15/17 03:00 87 28 112/52 96 Mechanical Ventilator 80 09/15/17 02:00 98.4 87 28 109/45 98 Mechanical Ventilator 80 98.4 09/15/17 01:23 95 29 80 09/15/17 01:00 96 29 116/50 98 Mechanical Ventilator 80 09/15/17 00:36 100.8 3/5/18 00:06 101.0 18 00:00 80 318 00:00 101.0 119 33 131/55 98 Mechanical Ventilator 80 101.0 18 23:54 119 /18 23:30 105 28 99 Mechanical Ventilator 80 3//18 23:10 80 3//18 23:09 103 27 99 Mechanical Ventilator 90 18 23:07 103 27 80 3//18 23:00 104 26 125/48 99 Mechanical Ventilator 80 318 22:00 99 30 124/56 99 Mechanical Ventilator 80 3/18 21:00 84 28 109/48 99 Mechanical Ventilator 90 18 20:57 85 28 90 18 20:04 81 18 20:00 100 18 20:00 79 27 116/56 100 Mechanical Ventilator 100 18 19:10 82 27 100 18 19:00 72 24 105/42 100 Mechanical Ventilator 100 18 18:00 80 23 117/52 100 Mechanical Ventilator 100 18 17:25 85 23 100 09/14/18 17:00 82 23 118/51 100 Mechanical Ventilator 100 18 16:00 80 18 16:00 100 18 16:00 97.8 81 26 97/58 100 Mechanical Ventilator 100 97.8 18 15:20 85 26 97 Mechanical Ventilator 80 18 15:20 100 //18 15:01 93 22 100 Mechanical Ventilator 100 18 15:00 97 29 129/50 100 Mechanical Ventilator 100 18 14:58 93 22 100 //18 14:00 85 23 120/60 100 Mechanical Ventilator 100 09/14/18 13:37 77 21 100 3//18 13:00 82 24 121/60 100 Mechanical Ventilator 100 18 12:00 98.8 86 24 116/42 100 Mechanical Ventilator 100 98.8 //18 12:00 100 3//18 12:00 80 3//18 11:00 86 25 121/51 100 Mechanical Ventilator 100 18 10:39 95 27 100 Status: awake Condition: critical HEENT: atraumatic, normocephalic Lungs: clear Heart: HR/BP stable, HR/BP unstable Abdomen: non-tender, active bowel sounds, feeding tube Extremities: no C/C/E Decubiti: location Micro: Microbiology Date/Time Source Procedure Growth Status 09/13/17 01:30 Sputum Gram Stain - Final Complete 09/13/17 01:30 Sputum Culture - Final Laila Albicans Usual Upper Respiratory Sapphire Complete Accucheck: 264 Critical Care - Subjective ROS Limited/Unobtainable: Yes ICU Day: 4 Intubation Day: 4 Condition: critical EKG Rhythm: Sinus Rhythm FI02: 90 Vent Support Breath Rate: 18 Vent Support Mode: AC Vent Tidal Volume: 500 Sputum Amount: Scant PEEP: 5.0 PIP: 32 Tube Feeding Amount: 35 I&O: Intake and Output 09/14/17 09/15/17 19:00 07:00 Intake Total 1545 ml 1655 ml Output Total 735 ml 470 ml Balance 810 ml 1185 ml Intake Free Water 50 ml 0 ml IV Total 825 ml 1135 ml Tube Feeding 420 ml 420 ml Blood Product 250 ml Other 100 ml Output Urine Total 735 ml 470 ml # Bowel Movements 2 4 CXR: extensive infiltrate, ET in good position ET-Tube: 7.0 ET Position: 21 Labs: Laboratory Tests Test 09/14/17 11:00 09/14/17 15:48 09/15/17 00:35 09/15/17 05:30 Stool Occult Blood Positive (NEGATIVE) White Blood Count 17.0 K/UL (4.8-10.8) #H 12.6 K/UL (4.8-10.8) H Red Blood Count 3.12 M/UL (4.20-5.40) L 2.73 M/UL (4.20-5.40) L Hemoglobin 10.1 G/DL (12.0-16.0) #L 8.7 G/DL (12.0-16.0) L Hematocrit 30.3 % (37.0-47.0) #L 26.5 % (37.0-47.0) L Mean Corpuscular Volume 97 FL (80-99) 97 FL (80-99) Mean Corpuscular Hemoglobin 32.3 PG (27.0-31.0) H 31.8 PG (27.0-31.0) H Mean Corpuscular Hemoglobin Concent 33.3 G/DL (32.0-36.0) 32.9 G/DL (32.0-36.0) Red Cell Distribution Width 14.2 % (11.6-14.8) 14.9 % (11.6-14.8) H Platelet Count 146 K/UL (150-450) L 105 K/UL (150-450) L Mean Platelet Volume 8.5 FL (6.5-10.1) 8.3 FL (6.5-10.1) Neutrophils (%) (Auto) % (45.0-75.0) % (45.0-75.0) Lymphocytes (%) (Auto) % (20.0-45.0) % (20.0-45.0) Monocytes (%) (Auto) % (1.0-10.0) % (1.0-10.0) Eosinophils (%) (Auto) % (0.0-3.0) % (0.0-3.0) Basophils (%) (Auto) % (0.0-2.0) % (0.0-2.0) Differential Total Cells Counted 100 100 Neutrophils % (Manual) 85 % (45-75) H 87 % (45-75) H Lymphocytes % (Manual) 10 % (20-45) L 7 % (20-45) L Monocytes % (Manual) 5 % (1-10) 6 % (1-10) Eosinophils % (Manual) 0 % (0-3) 0 % (0-3) Basophils % (Manual) 0 % (0-2) 0 % (0-2) Band Neutrophils 0 % (0-8) 0 % (0-8) Platelet Estimate Adequate Decreased L Platelet Morphology Normal Normal Polychromasia Occasional Vancomycin Level Trough 5.3 ug/mL (5.0-12.0) Anisocytosis 1+ Sodium Level 143 MMOL/L (136-145) Potassium Level 3.2 MMOL/L (3.5-5.1) L Chloride Level 112 MMOL/L (98-107) H Carbon Dioxide Level 19 MMOL/L (21-32) L Anion Gap 12 mmol/L (5-15) Blood Urea Nitrogen 29 mg/dL (7-18) H Creatinine 1.0 MG/DL (0.55-1.30) Estimat Glomerular Filtration Rate mL/min (>60) Glucose Level 254 MG/DL (74-106) #H Calcium Level 7.7 MG/DL (8.5-10.1) L Test 09/15/17 08:16 Arterial Blood pH 7.380 (7.350-7.450) Arterial Blood Partial Pressure CO2 31.8 mmHg (35.0-45.0) L Arterial Blood Partial Pressure O2 104.8 mmHg (75.0-100.0) H Arterial Blood HCO3 18.4 mmol/L (22.0-26.0) L Arterial Blood Oxygen Saturation 96.9 % (92.0-98.0) Arterial Blood Base Excess -5.9 Luis A Test Positive ARUNA VANEGAS Sep 15, 2017 10:40
--- NOTE | 2017-09-15 11:15 | Diagnostic Imaging Report ---
Indication: Shortness of breath Technique: One view of the chest Comparison: 09/14/2017 Findings: Again demonstrated is extensive bilateral diffuse interstitial and airspace disease. Stable satisfactory positions of endotracheal and nasogastric tube. There may be decreased pleural fluid on the right. Impression: Decreased possibly decreased right pleural fluid, over one day. Otherwise stable, with extensive diffuse bilateral parenchymal disease as described
[2017-09-15] MEDS: LORazepam Inj 2mg/ml 1ml IV PRN (11:22)
--- NOTE | 2017-09-15 12:47 | Internal Med Progress Note ---
Subjective Date of Service: Sep 15, 2017 Physician Name Sina Bowens Attending Physician Jesus Barahona MD Current Medications Medications (Trade) Dose Ordered Sig/Hermes Route PRN Reason Start Time Stop Time Status Last Admin Dose Admin Acetaminophen (Tylenol) 650 mg EVERY 6 HOURS PRN NG Fever/Headache/Mild Pain 09/13/17 20:45 10/13/17 20:44 09/15/17 11:22 Albuterol/ Ipratropium (Albuterol/ Ipratropium) 3 ml Q4H PRN HHN Shortness of Breath 09/11/17 23:15 09/16/17 23:14 Albuterol/ Ipratropium (Albuterol/ Ipratropium) 3 ml Q8HR HHN 09/11/17 23:15 09/16/17 23:14 09/15/17 08:06 Dextrose (Dextrose 50%) STAT PRN IV Hypoglycemia 09/13/17 15:00 10/13/17 14:59 Docusate Sodium (Colace) 100 mg TWICE A DAY ORAL 09/14/17 18:00 10/14/17 17:59 Heparin Sodium (Porcine) (Heparin 5000 units/ml) 5,000 units Q12H SUBQ 09/13/17 18:00 10/13/17 17:59 Insulin Aspart (NovoLOG) EVERY 6 HOURS SUBQ 09/13/17 18:00 10/13/17 17:59 09/15/17 11:30 Iron Sucrose 100 mg/Sodium Chloride 60 ml @ 240 mls/hr BEDTIME IV 09/13/17 21:00 09/17/17 21:14 09/14/17 21:22 Levofloxacin 100 ml @ 100 mls/hr Q24H IVPB 09/12/17 20:00 09/19/17 19:59 09/14/17 19:38 Lorazepam (Ativan 2mg/ml 1ml) 2 mg Q2HR PRN IV For Anxiety 09/12/17 22:00 09/19/17 21:59 09/15/17 11:22 Morphine Sulfate (Morphine Sulfate) 4 mg Q4H PRN IVP For Pain 09/12/17 10:45 09/19/17 10:44 09/13/17 10:17 Oseltamivir Phosphate (Tamiflu) 30 mg BID ORAL 09/12/17 20:00 09/17/17 19:59 09/15/17 09:29 Pantoprazole (Protonix) 40 mg DAILY IV 09/13/17 09:00 10/13/17 08:59 09/15/17 09:28 Polyethylene Glycol (Miralax) 17 gm BEDTIME ORAL 09/14/17 21:00 10/14/17 20:59 09/14/17 21:21 Sodium Chloride 1,000 ml @ 75 mls/hr [id number] IV 09/13/17 19:50 10/13/17 19:49 09/15/17 11:28 Vancomycin HCl (Vanco rx to dose) 1 ea DAILY PRN MISC Per rx protocol 09/11/17 23:15 10/11/17 23:14 Vancomycin HCl 500 mg/Dextrose 275 ml @ 275 mls/hr Q12H IVPB 09/15/17 13:00 09/20/17 12:59 Allergies: Coded Allergies: No Known Allergies (Verified , 11/18/08) ROS Limited/Unobtainable: Yes Subjective 76 YO F admitted with Shortness of breath, now respiratory failure. Intubated and sedated. Cover for Internal Med-Dr. Barahona. ICU Low Grade fever overnight Objective Last Vital Signs Date Time Temp Pulse Resp B/P (MAP) Pulse Ox O2 Delivery O2 Flow Rate FiO2 09/15/17 12:00 113 25 149/66 99 Mechanical Ventilator 80 09/15/17 11:52 99.9 09/12/17 00:35 15.0 Laboratory Tests Test 09/14/17 15:48 09/15/17 00:35 09/15/17 05:30 09/15/17 08:16 White Blood Count 17.0 K/UL (4.8-10.8) #H 12.6 K/UL (4.8-10.8) H Red Blood Count 3.12 M/UL (4.20-5.40) L 2.73 M/UL (4.20-5.40) L Hemoglobin 10.1 G/DL (12.0-16.0) #L 8.7 G/DL (12.0-16.0) L Hematocrit 30.3 % (37.0-47.0) #L 26.5 % (37.0-47.0) L Mean Corpuscular Volume 97 FL (80-99) 97 FL (80-99) Mean Corpuscular Hemoglobin 32.3 PG (27.0-31.0) H 31.8 PG (27.0-31.0) H Mean Corpuscular Hemoglobin Concent 33.3 G/DL (32.0-36.0) 32.9 G/DL (32.0-36.0) Red Cell Distribution Width 14.2 % (11.6-14.8) 14.9 % (11.6-14.8) H Platelet Count 146 K/UL (150-450) L 105 K/UL (150-450) L Mean Platelet Volume 8.5 FL (6.5-10.1) 8.3 FL (6.5-10.1) Neutrophils (%) (Auto) % (45.0-75.0) % (45.0-75.0) Lymphocytes (%) (Auto) % (20.0-45.0) % (20.0-45.0) Monocytes (%) (Auto) % (1.0-10.0) % (1.0-10.0) Eosinophils (%) (Auto) % (0.0-3.0) % (0.0-3.0) Basophils (%) (Auto) % (0.0-2.0) % (0.0-2.0) Differential Total Cells Counted 100 100 Neutrophils % (Manual) 85 % (45-75) H 87 % (45-75) H Lymphocytes % (Manual) 10 % (20-45) L 7 % (20-45) L Monocytes % (Manual) 5 % (1-10) 6 % (1-10) Eosinophils % (Manual) 0 % (0-3) 0 % (0-3) Basophils % (Manual) 0 % (0-2) 0 % (0-2) Band Neutrophils 0 % (0-8) 0 % (0-8) Platelet Estimate Adequate Decreased L Platelet Morphology Normal Normal Polychromasia Occasional Vancomycin Level Trough 5.3 ug/mL (5.0-12.0) Anisocytosis 1+ Sodium Level 143 MMOL/L (136-145) Potassium Level 3.2 MMOL/L (3.5-5.1) L Chloride Level 112 MMOL/L (98-107) H Carbon Dioxide Level 19 MMOL/L (21-32) L Anion Gap 12 mmol/L (5-15) Blood Urea Nitrogen 29 mg/dL (7-18) H Creatinine 1.0 MG/DL (0.55-1.30) Estimat Glomerular Filtration Rate mL/min (>60) Glucose Level 254 MG/DL (74-106) #H Calcium Level 7.7 MG/DL (8.5-10.1) L Arterial Blood pH 7.380 (7.350-7.450) Arterial Blood Partial Pressure CO2 31.8 mmHg (35.0-45.0) L Arterial Blood Partial Pressure O2 104.8 mmHg (75.0-100.0) H Arterial Blood HCO3 18.4 mmol/L (22.0-26.0) L Arterial Blood Oxygen Saturation 96.9 % (92.0-98.0) Arterial Blood Base Excess -5.9 Luis A Test Positive Microbiology Date/Time Source Procedure Growth Status 09/13/17 01:30 Sputum Gram Stain - Final Complete 09/13/17 01:30 Sputum Culture - Final Laila Albicans Usual Upper Respiratory Sapphire Complete Intake and Output 09/14/17 09/15/17 19:00 07:00 Intake Total 1545 ml 1655 ml Output Total 735 ml 470 ml Balance 810 ml 1185 ml Intake Free Water 50 ml 0 ml IV Total 825 ml 1135 ml Tube Feeding 420 ml 420 ml Blood Product 250 ml Other 100 ml Output Urine Total 735 ml 470 ml # Bowel Movements 2 4 Objective General Appearance: lethargic, thin EENT: normal ENT inspection Neck: non-tender, normal alignment, supple Cardiovascular: normal peripheral pulses, normal rate, regular rhythm, no gallop/murmur, no JVD Respiratory/Chest: Mechanical vent; respiratory distress, crackles/rales, rhonchi - bilaterally, expiratory wheezing Abdomen: normal bowel sounds, non tender, soft, no organomegaly, no mass Skin: normal pigmentation, warm/dry Assessment/Plan Problem List: (1) HTN (hypertension) Assessment & Plan: Currently hypotensive. (2) Arthritis, rheumatoid (3) Parkinsons disease (4) Aplastic anemia (5) GERD (gastroesophageal reflux disease) (6) Respiratory failure Assessment & Plan: Cont vent per pulmonary (7) Pneumonia (8) Dyspnea (9) Sepsis Assessment & Plan: Blood culture neg. Continue vanco and levaquin per ID (10) ARDS (adult respiratory distress syndrome) (11) UTI (urinary tract infection) Assessment & Plan: E.Coli. Continue levaquin (12) Anemia Assessment & Plan: S/P Transfusion 2 units PRBC Status: not improved SINA BOWENS Sep 15, 2017 12:47
--- NOTE | 2017-09-15 14:57 | Cardiac Electrophysiology PN ---
Assessment/Plan Assessment/Plan 1. Respiratory failure, likely due to underlying acute respiratory distress syndrome versus pneumonia, even though the BNP is elevated at almost 7000. Intubated on the vent. She already ruled out for myocardial infarction. 2. Left bundle-branch block. No evidence of advanced heart block. 3. HTN Add Norvasc 5 and Hydralazine iv prn 3. History of psychiatric disorder. 4. Hyponatremia. 5. Pneumonia and sepsis on IV antibiotics by Dr. Hunter. Subjective Subjective Intubated on Vent in ICU unresponsive. Never started on pressors. Objective Last 24 Hour Vital Signs Date Time Temp Pulse Resp B/P (MAP) Pulse Ox O2 Delivery O2 Flow Rate FiO2 09/15/17 13:00 99.9 120 30 152/66 99 Mechanical Ventilator 80 99.9 09/15/17 12:00 113 25 149/66 99 Mechanical Ventilator 80 09/15/17 12:00 123 09/15/17 11:52 99.9 09/15/17 11:36 80 09/15/17 11:34 80 09/15/17 11:22 100.1 09/15/17 11:16 114 30 90 09/15/17 11:00 118 30 157/69 99 Mechanical Ventilator 90 09/15/17 10:00 98 26 129/53 100 Mechanical Ventilator 90 09/15/17 09:12 102 25 90 09/15/17 09:00 102 23 120/45 100 Mechanical Ventilator 90 09/15/17 08:16 116 31 99 Mechanical Ventilator 09/15/17 08:06 117 31 98 Mechanical Ventilator 90 09/15/17 08:00 100.1 106 24 137/56 100 Mechanical Ventilator 90 100.1 09/15/17 08:00 69 09/15/17 08:00 90 09/15/17 07:06 117 31 90 09/15/17 07:00 120 33 139/55 99 Mechanical Ventilator 80 09/15/17 06:00 119 32 140/58 98 Mechanical Ventilator 80 09/15/17 05:30 106 28 90 09/15/17 05:00 100 28 139/61 98 Mechanical Ventilator 80 09/15/17 04:00 80 09/15/17 04:00 98.6 102 29 123/43 96 Mechanical Ventilator 80 98.6 09/15/17 03:36 89 09/15/17 03:04 87 22 90 09/15/17 03:00 87 28 112/52 96 Mechanical Ventilator 80 09/15/17 02:00 98.4 87 28 109/45 98 Mechanical Ventilator 80 98.4 09/15/17 01:23 95 29 80 09/15/17 01:00 96 29 116/50 98 Mechanical Ventilator 80 09/15/17 00:06 101.0 09/15/17 00:00 80 09/15/17 00:00 101.0 119 33 131/55 98 Mechanical Ventilator 80 101.0 09/14/17 23:54 119 09/14/17 23:30 105 28 99 Mechanical Ventilator 80 09/14/17 23:10 80 09/14/17 23:09 103 27 99 Mechanical Ventilator 90 09/14/17 23:07 103 27 80 09/14/17 23:00 104 26 125/48 99 Mechanical Ventilator 80 09/14/17 22:00 99 30 124/56 99 Mechanical Ventilator 80 09/14/17 21:00 84 28 109/48 99 Mechanical Ventilator 90 09/14/17 20:57 85 28 90 09/14/17 20:04 81 09/14/17 20:00 100 09/14/17 20:00 79 27 116/56 100 Mechanical Ventilator 100 09/14/17 19:10 82 27 100 09/14/17 19:00 72 24 105/42 100 Mechanical Ventilator 100 09/14/17 18:00 80 23 117/52 100 Mechanical Ventilator 100 09/14/17 17:25 85 23 100 09/14/17 17:00 82 23 118/51 100 Mechanical Ventilator 100 09/14/17 16:00 80 09/14/17 16:00 100 09/14/17 16:00 97.8 81 26 97/58 100 Mechanical Ventilator 100 97.8 09/14/17 15:20 85 26 97 Mechanical Ventilator 80 09/14/17 15:20 100 09/14/17 15:01 93 22 100 Mechanical Ventilator 100 09/14/17 15:00 97 29 129/50 100 Mechanical Ventilator 100 09/14/17 14:58 93 22 100 Intake and Output 18 09/15/17 19:00 07:00 Intake Total 1545 ml 1655 ml Output Total 735 ml 470 ml Balance 810 ml 1185 ml Intake Free Water 50 ml 0 ml IV Total 825 ml 1135 ml Tube Feeding 420 ml 420 ml Blood Product 250 ml Other 100 ml Output Urine Total 735 ml 470 ml # Bowel Movements 2 4 Laboratory Tests Test 09/14/17 15:48 09/15/17 00:35 09/15/17 05:30 09/15/17 08:16 White Blood Count 17.0 K/UL (4.8-10.8) #H 12.6 K/UL (4.8-10.8) H Red Blood Count 3.12 M/UL (4.20-5.40) L 2.73 M/UL (4.20-5.40) L Hemoglobin 10.1 G/DL (12.0-16.0) #L 8.7 G/DL (12.0-16.0) L Hematocrit 30.3 % (37.0-47.0) #L 26.5 % (37.0-47.0) L Mean Corpuscular Volume 97 FL (80-99) 97 FL (80-99) Mean Corpuscular Hemoglobin 32.3 PG (27.0-31.0) H 31.8 PG (27.0-31.0) H Mean Corpuscular Hemoglobin Concent 33.3 G/DL (32.0-36.0) 32.9 G/DL (32.0-36.0) Red Cell Distribution Width 14.2 % (11.6-14.8) 14.9 % (11.6-14.8) H Platelet Count 146 K/UL (150-450) L 105 K/UL (150-450) L Mean Platelet Volume 8.5 FL (6.5-10.1) 8.3 FL (6.5-10.1) Neutrophils (%) (Auto) % (45.0-75.0) % (45.0-75.0) Lymphocytes (%) (Auto) % (20.0-45.0) % (20.0-45.0) Monocytes (%) (Auto) % (1.0-10.0) % (1.0-10.0) Eosinophils (%) (Auto) % (0.0-3.0) % (0.0-3.0) Basophils (%) (Auto) % (0.0-2.0) % (0.0-2.0) Differential Total Cells Counted 100 100 Neutrophils % (Manual) 85 % (45-75) H 87 % (45-75) H Lymphocytes % (Manual) 10 % (20-45) L 7 % (20-45) L Monocytes % (Manual) 5 % (1-10) 6 % (1-10) Eosinophils % (Manual) 0 % (0-3) 0 % (0-3) Basophils % (Manual) 0 % (0-2) 0 % (0-2) Band Neutrophils 0 % (0-8) 0 % (0-8) Platelet Estimate Adequate Decreased L Platelet Morphology Normal Normal Polychromasia Occasional Vancomycin Level Trough 5.3 ug/mL (5.0-12.0) Anisocytosis 1+ Sodium Level 143 MMOL/L (136-145) Potassium Level 3.2 MMOL/L (3.5-5.1) L Chloride Level 112 MMOL/L (98-107) H Carbon Dioxide Level 19 MMOL/L (21-32) L Anion Gap 12 mmol/L (5-15) Blood Urea Nitrogen 29 mg/dL (7-18) H Creatinine 1.0 MG/DL (0.55-1.30) Estimat Glomerular Filtration Rate mL/min (>60) Glucose Level 254 MG/DL (74-106) #H Calcium Level 7.7 MG/DL (8.5-10.1) L Arterial Blood pH 7.380 (7.350-7.450) Arterial Blood Partial Pressure CO2 31.8 mmHg (35.0-45.0) L Arterial Blood Partial Pressure O2 104.8 mmHg (75.0-100.0) H Arterial Blood HCO3 18.4 mmol/L (22.0-26.0) L Arterial Blood Oxygen Saturation 96.9 % (92.0-98.0) Arterial Blood Base Excess -5.9 Luis A Test Positive Microbiology Date/Time Source Procedure Growth Status 09/13/17 01:30 Sputum Gram Stain - Final Complete 09/13/17 01:30 Sputum Culture - Final Laila Albicans Usual Upper Respiratory Sapphire Complete Objective HEAD AND NECK: No JVD. Orally intubated. LUNGS: Coarse rhonchi bilaterally, is on BiPAP. CARDIOVASCULAR: Regular S1 and S2. Not tachycardic. ABDOMEN: Soft. EXTREMITIES: 1+ pitting edema. ROLF OLIVIA Sep 15, 2017 14:57
[2017-09-15] MEDS: Morphine Sulfate 4mg/ml Inj IVP PRN (15:41)
[2017-09-15] MEDS: Iron Sucrose 100 MG in NS 55 ML IV SCH (20:53)
[2017-09-15] MEDS: Miralax 17gm pkt ORAL SCH (21:00)
--- NOTE | 2017-09-15 22:12 | Infectious Diseases Prog Note ---
Assessment/Plan Assessment/Plan ASSESSMENT: The patient is a 76-year-old female w Fever Leukocytosis improving Community-acquired vs healthcare-associated pneumonia (the patient has been recently hospitalized in [facility]). Probable influenza despite of negative influenza screening test. Abnormal liver function tests, rule out biliary disease Hep panel : neg Probable UCx : E coli Chest x-ray, extensive bilateral infiltrates versus pulmonary edema. HTN GERD History of auditory hallucination. Depression. Anemia. Rheumatoid arthritis. History of gastritis. PLAN: continue the patient on vancomycin and Levaquin and Tamiflu d# 4 Monitor CBC. Monitor BMP. Monitor cultures (blood, urine and sputum). Monitor chest x-ray. Ultrasound of the abdomen. Subjective Constitutional: Denies: no symptoms, fever, chills, fatigue, anorexia, drenching sweats, other Allergies: Coded Allergies: No Known Allergies (Verified , 11/18/08) Subjective febrile Objective Vital Signs Last 24 Hour Vital Signs Date Time Temp Pulse Resp B/P (MAP) Pulse Ox O2 Delivery O2 Flow Rate FiO2 09/15/17 21:37 102.5 09/15/17 21:09 128 35 90 09/15/17 20:53 103.0 09/15/17 19:21 145 34 90 09/15/17 19:00 138 30 151/50 98 Mechanical Ventilator 80 09/15/17 18:00 100.1 149 30 153/54 98 Mechanical Ventilator 90 100.1 09/15/17 17:16 90 09/15/17 17:12 124 35 90 09/15/17 17:00 140 147/62 09/15/17 17:00 150 30 140/51 98 Mechanical Ventilator 80 09/15/17 16:00 125 09/15/17 16:00 80 09/15/17 16:00 154 34 176/70 98 Mechanical Ventilator 80 09/15/17 15:41 171/74 09/15/17 15:03 Mechanical Ventilator 09/15/17 15:01 Mechanical Ventilator 09/15/17 15:00 126 34 171/74 99 Mechanical Ventilator 80 09/15/17 14:42 126 34 80 09/15/17 14:00 121 32 163/69 99 Mechanical Ventilator 80 09/15/17 13:00 99.9 120 30 152/66 99 Mechanical Ventilator 80 99.9 09/15/17 12:58 128 34 80 09/15/17 12:00 113 25 149/66 99 Mechanical Ventilator 80 09/15/17 12:00 123 09/15/17 11:36 80 09/15/17 11:34 80 09/15/17 11:22 100.1 09/15/17 11:16 114 30 90 09/15/17 11:00 118 30 157/69 99 Mechanical Ventilator 90 09/15/17 10:00 98 26 129/53 100 Mechanical Ventilator 90 09/15/17 09:12 102 25 90 09/15/17 09:00 102 23 120/45 100 Mechanical Ventilator 90 09/15/17 08:16 116 31 99 Mechanical Ventilator 09/15/17 08:06 117 31 98 Mechanical Ventilator 90 09/15/17 08:00 100.1 106 24 137/56 100 Mechanical Ventilator 90 100.1 09/15/17 08:00 69 09/15/17 08:00 90 09/15/17 07:06 117 31 90 09/15/17 07:00 120 33 139/55 99 Mechanical Ventilator 80 09/15/17 06:00 119 32 140/58 98 Mechanical Ventilator 80 09/15/17 05:30 106 28 90 09/15/17 05:00 100 28 139/61 98 Mechanical Ventilator 80 09/15/17 04:00 80 09/15/17 04:00 98.6 102 29 123/43 96 Mechanical Ventilator 80 98.6 09/15/17 03:36 89 09/15/17 03:04 87 22 90 09/15/17 03:00 87 28 112/52 96 Mechanical Ventilator 80 09/15/17 02:00 98.4 87 28 109/45 98 Mechanical Ventilator 80 98.4 09/15/17 01:23 95 29 80 09/15/17 01:00 96 29 116/50 98 Mechanical Ventilator 80 09/15/17 00:06 101.0 09/15/17 00:00 80 09/15/17 00:00 101.0 119 33 131/55 98 Mechanical Ventilator 80 101.0 09/14/17 23:54 119 09/14/17 23:30 105 28 99 Mechanical Ventilator 80 09/14/17 23:10 80 09/14/17 23:09 103 27 99 Mechanical Ventilator 90 09/14/17 23:07 103 27 80 09/14/17 23:00 104 26 125/48 99 Mechanical Ventilator 80 Height (Feet): 5 Height (Inches): 0.00 Weight (Pounds): 90 HEENT: mucous membranes moist Respiratory/Chest: no accessory muscle use Cardiovascular: no gallop/murmur Microbiology Date/Time Source Procedure Growth Status 09/13/17 01:30 Sputum Gram Stain - Final Complete 09/13/17 01:30 Sputum Culture - Final Laila Albicans Usual Upper Respiratory Sapphire Complete Laboratory Tests Test 09/15/17 00:35 09/15/17 05:30 09/15/17 08:16 Vancomycin Level Trough 5.3 ug/mL (5.0-12.0) White Blood Count 12.6 K/UL (4.8-10.8) H Red Blood Count 2.73 M/UL (4.20-5.40) L Hemoglobin 8.7 G/DL (12.0-16.0) L Hematocrit 26.5 % (37.0-47.0) L Mean Corpuscular Volume 97 FL (80-99) Mean Corpuscular Hemoglobin 31.8 PG (27.0-31.0) H Mean Corpuscular Hemoglobin Concent 32.9 G/DL (32.0-36.0) Red Cell Distribution Width 14.9 % (11.6-14.8) H Platelet Count 105 K/UL (150-450) L Mean Platelet Volume 8.3 FL (6.5-10.1) Neutrophils (%) (Auto) % (45.0-75.0) Lymphocytes (%) (Auto) % (20.0-45.0) Monocytes (%) (Auto) % (1.0-10.0) Eosinophils (%) (Auto) % (0.0-3.0) Basophils (%) (Auto) % (0.0-2.0) Differential Total Cells Counted 100 Neutrophils % (Manual) 87 % (45-75) H Lymphocytes % (Manual) 7 % (20-45) L Monocytes % (Manual) 6 % (1-10) Eosinophils % (Manual) 0 % (0-3) Basophils % (Manual) 0 % (0-2) Band Neutrophils 0 % (0-8) Platelet Estimate Decreased L Platelet Morphology Normal Anisocytosis 1+ Sodium Level 143 MMOL/L (136-145) Potassium Level 3.2 MMOL/L (3.5-5.1) L Chloride Level 112 MMOL/L (98-107) H Carbon Dioxide Level 19 MMOL/L (21-32) L Anion Gap 12 mmol/L (5-15) Blood Urea Nitrogen 29 mg/dL (7-18) H Creatinine 1.0 MG/DL (0.55-1.30) Estimat Glomerular Filtration Rate mL/min (>60) Glucose Level 254 MG/DL (74-106) #H Calcium Level 7.7 MG/DL (8.5-10.1) L Arterial Blood pH 7.380 (7.350-7.450) Arterial Blood Partial Pressure CO2 31.8 mmHg (35.0-45.0) L Arterial Blood Partial Pressure O2 104.8 mmHg (75.0-100.0) H Arterial Blood HCO3 18.4 mmol/L (22.0-26.0) L Arterial Blood Oxygen Saturation 96.9 % (92.0-98.0) Arterial Blood Base Excess -5.9 Lius A Test Positive Current Medications Medications (Trade) Dose Ordered Sig/Hermes Route PRN Reason Start Time Stop Time Status Last Admin Dose Admin Acetaminophen (Tylenol) 650 mg EVERY 6 HOURS PRN NG Fever/Headache/Mild Pain 09/13/17 20:45 10/13/17 20:44 09/15/17 20:53 Albuterol/ Ipratropium (Albuterol/ Ipratropium) 3 ml Q4H PRN HHN Shortness of Breath 09/11/17 23:15 09/16/17 23:14 Albuterol/ Ipratropium (Albuterol/ Ipratropium) 3 ml Q8HR HHN 09/11/17 23:15 09/16/17 23:14 09/15/17 08:06 Amlodipine Besylate (Norvasc) 5 mg DAILY ORAL 09/16/17 09:00 10/16/17 08:59 Clonidine HCl (Catapres Tab) 0.1 mg Q2H PRN ORAL SBP > 170 09/15/17 17:15 10/15/17 16:59 Dextrose (Dextrose 50%) STAT PRN IV Hypoglycemia 09/13/17 15:00 10/13/17 14:59 Docusate Sodium (Colace) 100 mg TWICE A DAY ORAL 09/14/17 18:00 10/14/17 17:59 09/15/17 19:23 Heparin Sodium (Porcine) (Heparin 5000 units/ml) 5,000 units Q12H SUBQ 09/13/17 18:00 10/13/17 17:59 Hydralazine HCl (Apresoline) 10 mg Q2H PRN IV SBP > 170 09/15/17 15:00 10/15/17 14:59 Future hold 09/15/17 15:41 Insulin Aspart (NovoLOG) EVERY 6 HOURS SUBQ 09/13/17 18:00 10/13/17 17:59 09/15/17 19:25 Iron Sucrose 100 mg/Sodium Chloride 60 ml @ 240 mls/hr BEDTIME IV 09/13/17 21:00 09/17/17 21:14 09/15/17 20:53 Levofloxacin 100 ml @ 100 mls/hr Q24H IVPB 09/12/17 20:00 09/19/17 19:59 09/15/17 19:57 Lorazepam (Ativan 2mg/ml 1ml) 2 mg Q2HR PRN IV For Anxiety 09/12/17 22:00 09/19/17 21:59 09/15/17 11:22 Morphine Sulfate (Morphine Sulfate) 4 mg Q4H PRN IVP For Pain 09/12/17 10:45 09/19/17 10:44 09/15/17 15:41 Oseltamivir Phosphate (Tamiflu) 30 mg BID ORAL 09/12/17 20:00 09/17/17 19:59 09/15/17 19:23 Pantoprazole (Protonix) 40 mg DAILY IV 09/13/17 09:00 10/13/17 08:59 09/15/17 09:28 Polyethylene Glycol (Miralax) 17 gm BEDTIME ORAL 09/14/17 21:00 10/14/17 20:59 09/14/17 21:21 Sodium Chloride 1,000 ml @ 75 mls/hr [id number] IV 09/13/17 19:50 10/13/17 19:49 09/15/17 11:28 Vancomycin HCl (Vanco rx to dose) 1 ea DAILY PRN MISC Per rx protocol 09/11/17 23:15 10/11/17 23:14 Vancomycin HCl 500 mg/Dextrose 275 ml @ 275 mls/hr Q12H IVPB 09/15/17 13:00 09/20/17 12:59 09/15/17 13:23 DEBBIE MURRY M.D. Sep 15, 2017 22:12
--- NOTE | 2017-09-15 22:15 | General Progress Note ---
Assessment/Plan Assessment/Plan Assessment - Resp failure / ARDS - Abnormal LFT with rapid resolution - Anemia with OB (+) stools - Malnutrition Recommendations - NGT feeds - check abd u/s - pending - Elevate HOB - Vent care - Monitor H&H - PPI Subjective Allergies: Coded Allergies: No Known Allergies (Verified , 11/18/08) Objective Last 24 Hour Vital Signs Date Time Temp Pulse Resp B/P (MAP) Pulse Ox O2 Delivery O2 Flow Rate FiO2 09/15/17 21:37 102.5 09/15/17 21:09 128 35 90 09/15/17 20:53 103.0 09/15/17 19:21 145 34 90 09/15/17 19:00 138 30 151/50 98 Mechanical Ventilator 80 09/15/17 18:00 100.1 149 30 153/54 98 Mechanical Ventilator 90 100.1 09/15/17 17:16 90 09/15/17 17:12 124 35 90 09/15/17 17:00 140 147/62 09/15/17 17:00 150 30 140/51 98 Mechanical Ventilator 80 09/15/17 16:00 125 09/15/17 16:00 80 09/15/17 16:00 154 34 176/70 98 Mechanical Ventilator 80 09/15/17 15:41 171/74 09/15/17 15:03 Mechanical Ventilator 09/15/17 15:01 Mechanical Ventilator 09/15/17 15:00 126 34 171/74 99 Mechanical Ventilator 80 09/15/17 14:42 126 34 80 09/15/17 14:00 121 32 163/69 99 Mechanical Ventilator 80 09/15/17 13:00 99.9 120 30 152/66 99 Mechanical Ventilator 80 99.9 09/15/17 12:58 128 34 80 09/15/17 12:00 113 25 149/66 99 Mechanical Ventilator 80 09/15/17 12:00 123 09/15/17 11:36 80 09/15/17 11:34 80 09/15/17 11:22 100.1 09/15/17 11:16 114 30 90 09/15/17 11:00 118 30 157/69 99 Mechanical Ventilator 90 09/15/17 10:00 98 26 129/53 100 Mechanical Ventilator 90 09/15/17 09:12 102 25 90 09/15/17 09:00 102 23 120/45 100 Mechanical Ventilator 90 09/15/17 08:16 116 31 99 Mechanical Ventilator 09/15/17 08:06 117 31 98 Mechanical Ventilator 90 09/15/17 08:00 100.1 106 24 137/56 100 Mechanical Ventilator 90 100.1 09/15/17 08:00 69 09/15/17 08:00 90 09/15/17 07:06 117 31 90 09/15/17 07:00 120 33 139/55 99 Mechanical Ventilator 80 09/15/17 06:00 119 32 140/58 98 Mechanical Ventilator 80 09/15/17 05:30 106 28 90 09/15/17 05:00 100 28 139/61 98 Mechanical Ventilator 80 09/15/17 04:00 80 09/15/17 04:00 98.6 102 29 123/43 96 Mechanical Ventilator 80 98.6 09/15/17 03:36 89 09/15/17 03:04 87 22 90 09/15/17 03:00 87 28 112/52 96 Mechanical Ventilator 80 09/15/17 02:00 98.4 87 28 109/45 98 Mechanical Ventilator 80 98.4 09/15/17 01:23 95 29 80 09/15/17 01:00 96 29 116/50 98 Mechanical Ventilator 80 09/15/17 00:06 101.0 09/15/17 00:00 80 09/15/17 00:00 101.0 119 33 131/55 98 Mechanical Ventilator 80 101.0 09/14/17 23:54 119 09/14/17 23:30 105 28 99 Mechanical Ventilator 80 09/14/17 23:10 80 09/14/17 23:09 103 27 99 Mechanical Ventilator 90 09/14/17 23:07 103 27 80 09/14/17 23:00 104 26 125/48 99 Mechanical Ventilator 80 Intake and Output 09/14/17 09/15/17 19:00 07:00 Intake Total 1545 ml 1655 ml Output Total 735 ml 470 ml Balance 810 ml 1185 ml Intake Free Water 50 ml 0 ml IV Total 825 ml 1135 ml Tube Feeding 420 ml 420 ml Blood Product 250 ml Other 100 ml Output Urine Total 735 ml 470 ml # Bowel Movements 2 4 Laboratory Tests 09/15/17 00:35: Vancomycin Level Trough 5.3 09/15/17 05:30: White Blood Count 12.6H, Red Blood Count 2.73L, Hemoglobin 8.7L, Hematocrit 26.5L, Mean Corpuscular Volume 97, Mean Corpuscular Hemoglobin 31.8H, Mean Corpuscular Hemoglobin Concent 32.9, Red Cell Distribution Width 14.9H, Platelet Count 105L, Mean Platelet Volume 8.3, Neutrophils (%) (Auto) , Lymphocytes (%) (Auto) , Monocytes (%) (Auto) , Eosinophils (%) (Auto) , Basophils (%) (Auto) , Differential Total Cells Counted 100, Neutrophils % ( Manual) 87H, Lymphocytes % (Manual) 7L, Monocytes % (Manual) 6, Eosinophils % ( Manual) 0, Basophils % (Manual) 0, Band Neutrophils 0, Platelet Estimate DecreasedL, Platelet Morphology Normal, Anisocytosis 1+, Sodium Level 143, Potassium Level 3.2L, Chloride Level 112H, Carbon Dioxide Level 19L, Anion Gap 12, Blood Urea Nitrogen 29H, Creatinine 1.0, Estimat Glomerular Filtration Rate , Glucose Level 254#H, Calcium Level 7.7L 09/15/17 08:16: Arterial Blood pH 7.380, Arterial Blood Partial Pressure CO2 31.8L, Arterial Blood Partial Pressure O2 104.8H, Arterial Blood HCO3 18.4L, Arterial Blood Oxygen Saturation 96.9, Arterial Blood Base Excess -5.9, Luis A Test Positive Height (Feet): 5 Height (Inches): 0.00 Weight (Pounds): 90 KEKEARNULFO FOFANA Sep 15, 2017 22:14
[2017-09-16] VITALS (24 sets, daily range): BP systolic 112–152; BP diastolic 45–74
[2017-09-16] MEDS: Vancomycin 500mg in D5W 275ml IVPB SCH ×2 (00:43→13:10)
[2017-09-16 04:53] LABS: HEMATOCRIT 29.5 % (37.0-47.0); HEMOGLOBIN 9.6 G/DL (12.0-16.0); MEAN CORPUSCULAR VOLUME 99 FL (80-99); PLATELET COUNT 68 K/UL (150-450); RED BLOOD COUNT 2.97 M/UL (4.20-5.40); RED CELL DISTRIBUTION WIDTH 15.5 % (11.6-14.8); WHITE BLOOD COUNT 17.7 K/UL (4.8-10.8)
[2017-09-16 05:13] LABS: ALANINE AMINOTRANSFERASE 75 U/L (12-78); ALBUMIN 1.4 G/DL (3.4-5.0); ALBUMIN/GLOBULIN RATIO 0.4 (1.0-2.7); ALKALINE PHOSPHATASE 460 U/L (46-116); ANION GAP 16 mmol/L (5-15); ASPARTATE AMINO TRANSFERASE 94 U/L (15-37); BILIRUBIN,TOTAL 1.1 MG/DL (0.2-1.0); BLOOD UREA NITROGEN 28 mg/dL (7-18); CALCIUM 7.2 MG/DL (8.5-10.1); CARBON DIOXIDE 16 MMOL/L (21-32); CHLORIDE 116 MMOL/L (98-107); CREATININE 0.6 MG/DL (0.55-1.30); PHOSPHORUS 1.8 MG/DL (2.5-4.9); POTASSIUM 3.3 MMOL/L (3.5-5.1); SODIUM 148 MMOL/L (136-145)
[2017-09-16] MEDS: NovoLOG Insulin Flexpen SUBQ SCH ×3 (05:36→18:23)
[2017-09-16] MEDS: Heparin 5000 units/ml inj SUBQ SCH ×2 (05:37→16:29)
[2017-09-16 05:40] LABS: BILIRUBIN,DIRECT 0.6 MG/DL (0.0-0.3)
--- NOTE | 2017-09-16 06:38 | Pulmonolgy Critical Care Note ---
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 cleanermanager bar - Objective Last 24 Hour Vital Signs Date Time Temp Pulse Resp B/P (MAP) Pulse Ox O2 Delivery O2 Flow Rate FiO2 09/16/17 06:00 118 27 145/56 99 Mechanical Ventilator 100 09/16/17 05:00 116 27 139/57 93 Mechanical Ventilator 100 09/16/17 04:46 110 26 100 09/16/17 04:00 113 09/16/17 04:00 98.7 114 27 136/54 93 Mechanical Ventilator 100 98.7 09/16/17 04:00 100 09/16/17 03:28 114 29 100 09/16/17 03:00 115 29 129/54 92 Mechanical Ventilator 100 09/16/17 02:00 100 09/16/17 02:00 114 29 125/53 90 Mechanical Ventilator 100 09/16/17 01:28 112 28 100 09/16/17 01:00 97.5 112 29 127/52 90 Mechanical Ventilator 90 97.5 09/16/17 00:00 97.8 112 29 129/74 95 Mechanical Ventilator 90 97.8 09/16/17 00:00 111 09/16/17 00:00 90 09/15/17 23:24 112 30 90 09/15/17 23:05 Mechanical Ventilator 90 09/15/17 23:05 Mechanical Ventilator 90 09/15/17 23:00 98.8 112 29 124/50 95 Mechanical Ventilator 90 98.8 09/15/17 22:00 100.0 113 28 107/46 97 Mechanical Ventilator 90 100.0 09/15/17 21:37 102.5 09/15/17 21:09 128 35 90 09/15/17 21:00 103.0 125 31 101/44 98 Mechanical Ventilator 90 103.0 09/15/17 20:53 103.0 09/15/17 20:00 143 09/15/17 20:00 90 09/15/17 20:00 102.0 143 33 146/48 99 Mechanical Ventilator 90 102.0 09/15/17 19:21 145 34 90 09/15/17 19:00 138 30 151/50 98 Mechanical Ventilator 80 09/15/17 18:00 100.1 149 30 153/54 98 Mechanical Ventilator 90 100.1 09/15/17 17:16 90 09/15/17 17:12 124 35 90 09/15/17 17:00 140 147/62 09/15/17 17:00 150 30 140/51 98 Mechanical Ventilator 80 09/15/17 16:00 125 09/15/17 16:00 80 09/15/17 16:00 154 34 176/70 98 Mechanical Ventilator 80 09/15/17 15:41 171/74 09/15/17 15:03 Mechanical Ventilator 09/15/17 15:01 Mechanical Ventilator 09/15/17 15:00 126 34 171/74 99 Mechanical Ventilator 80 09/15/17 14:42 126 34 80 09/15/17 14:00 121 32 163/69 99 Mechanical Ventilator 80 09/15/17 13:00 99.9 120 30 152/66 99 Mechanical Ventilator 80 99.9 09/15/17 12:58 128 34 80 09/15/17 12:00 113 25 149/66 99 Mechanical Ventilator 80 09/15/17 12:00 123 09/15/17 11:36 80 09/15/17 11:34 80 09/15/17 11:22 100.1 09/15/17 11:16 114 30 90 09/15/17 11:00 118 30 157/69 99 Mechanical Ventilator 90 09/15/17 10:00 98 26 129/53 100 Mechanical Ventilator 90 09/15/17 09:12 102 25 90 09/15/17 09:00 102 23 120/45 100 Mechanical Ventilator 90 09/15/17 08:16 116 31 99 Mechanical Ventilator 09/15/17 08:06 117 31 98 Mechanical Ventilator 90 09/15/17 08:00 100.1 106 24 137/56 100 Mechanical Ventilator 90 100.1 09/15/17 08:00 69 09/15/17 08:00 90 09/15/17 07:06 117 31 90 09/15/17 07:00 120 33 139/55 99 Mechanical Ventilator 80 Status: awake Condition: critical HEENT: atraumatic Neck: full ROM Lungs: clear Heart: HR/BP stable, HR/BP unstable Abdomen: soft, non-tender, active bowel sounds, feeding tube Extremities: no C/C/E, edema Decubiti: location Accucheck: 219 Critical Care - Subjective ROS Limited/Unobtainable: Yes ICU Day: 5 Intubation Day: 5 Condition: critical EKG Rhythm: Sinus Rhythm FI02: 100 Vent Support Breath Rate: 18 Vent Support Mode: AC Vent Tidal Volume: 500 Sputum Amount: Scant PEEP: 5.0 PIP: 36 Tube Feeding Amount: 45 I&O: Intake and Output 09/15/17 09/16/17 19:00 07:00 Intake Total 1520 ml 1825 ml Output Total 570 ml 610 ml Balance 950 ml 1215 ml Intake Free Water 50 ml IV Total 1100 ml 1260 ml Tube Feeding 420 ml 465 ml Other 50 ml Output Urine Total 570 ml 610 ml # Bowel Movements 9 2 CXR: slight improvement ET-Tube: 7.5 ET Position: 21 Labs: Laboratory Tests Test 09/15/17 08:16 09/16/17 03:35 Arterial Blood pH 7.380 (7.350-7.450) Arterial Blood Partial Pressure CO2 31.8 mmHg (35.0-45.0) L Arterial Blood Partial Pressure O2 104.8 mmHg (75.0-100.0) H Arterial Blood HCO3 18.4 mmol/L (22.0-26.0) L Arterial Blood Oxygen Saturation 96.9 % (92.0-98.0) Arterial Blood Base Excess -5.9 Luis A Test Positive White Blood Count 17.7 K/UL (4.8-10.8) H Red Blood Count 2.97 M/UL (4.20-5.40) L Hemoglobin 9.6 G/DL (12.0-16.0) L Hematocrit 29.5 % (37.0-47.0) L Mean Corpuscular Volume 99 FL (80-99) Mean Corpuscular Hemoglobin 32.3 PG (27.0-31.0) H Mean Corpuscular Hemoglobin Concent 32.5 G/DL (32.0-36.0) Red Cell Distribution Width 15.5 % (11.6-14.8) H Platelet Count 68 K/UL (150-450) L Mean Platelet Volume 9.3 FL (6.5-10.1) Neutrophils (%) (Auto) % (45.0-75.0) Lymphocytes (%) (Auto) % (20.0-45.0) Monocytes (%) (Auto) % (1.0-10.0) Eosinophils (%) (Auto) % (0.0-3.0) Basophils (%) (Auto) % (0.0-2.0) Neutrophils % (Manual) Pending Lymphocytes % (Manual) Pending Platelet Estimate Pending Platelet Morphology Pending Sodium Level 148 MMOL/L (136-145) H Potassium Level 3.3 MMOL/L (3.5-5.1) L Chloride Level 116 MMOL/L (98-107) H Carbon Dioxide Level 16 MMOL/L (21-32) L Anion Gap 16 mmol/L (5-15) H Blood Urea Nitrogen 28 mg/dL (7-18) H Creatinine 0.6 MG/DL (0.55-1.30) Estimat Glomerular Filtration Rate mL/min (>60) Glucose Level 239 MG/DL (74-106) H Calcium Level 7.2 MG/DL (8.5-10.1) L Phosphorus Level 1.8 MG/DL (2.5-4.9) L Magnesium Level 2.0 MG/DL (1.8-2.4) Total Bilirubin 1.1 MG/DL (0.2-1.0) H Direct Bilirubin 0.6 MG/DL (0.0-0.3) H Aspartate Amino Transf (AST/SGOT) 94 U/L (15-37) H Alanine Aminotransferase (ALT/SGPT) 75 U/L (12-78) Alkaline Phosphatase 460 U/L (46-116) H Total Protein 5.1 G/DL (6.4-8.2) L Albumin 1.4 G/DL (3.4-5.0) L Globulin 3.7 g/dL Albumin/Globulin Ratio 0.4 (1.0-2.7) L ARUNA VANEGAS Sep 16, 2017 06:38
[2017-09-16] MEDS: Albuterol/Ipratropium 3ml neb HHN SCH ×3 (07:11→22:00)
[2017-09-16] MEDS ORDERED: Potassium Phosphate 30 MM in Sodium Chloride 500ML 550 ML IV ONE ×3 (07:45→09:00)
[2017-09-16] MEDS: Docusate 100mg cap ORAL SCH ×2 (08:15→17:55)
[2017-09-16] MEDS: Pantoprazole Inj IV SCH (09:05)
--- NOTE | 2017-09-16 11:24 | Diagnostic Imaging Report ---
Indication: Dyspnea Comparison: 09/15/2017 A single view chest radiograph was obtained. Findings: Tubes and lines are stable. Extensive lung disease with mixed interstitial and alveolar opacities throughout both lung plata demonstrated once again without change. Heart is enlarged but stable. IMPRESSION: Stable appearance over the last 24 hours
--- NOTE | 2017-09-16 12:01 | Infectious Diseases Prog Note ---
Assessment/Plan Assessment/Plan ASSESSMENT: The patient is a 76-year-old female w Fever, low grade Leukocytosis improving Community-acquired vs healthcare-associated pneumonia (the patient has been recently hospitalized in [facility]). Probable influenza despite of negative influenza screening test. Abnormal liver function tests, improving rule out biliary disease Hep panel : neg Probable UCx : E coli Chest x-ray, extensive bilateral infiltrates versus pulmonary edema. HTN GERD History of auditory hallucination. Depression. Anemia. Rheumatoid arthritis. History of gastritis. PLAN: continue the patient on vancomycin and Levaquin and Tamiflu d# 5/ Monitor CBC. Monitor BMP. Monitor cultures (blood, urine and sputum). Monitor chest x-ray. Ultrasound of the abdomen. Subjective Constitutional: Denies: no symptoms, fever, chills, fatigue, anorexia, drenching sweats, other Allergies: Coded Allergies: No Known Allergies (Verified , 11/18/08) Subjective febrile Objective Vital Signs Last 24 Hour Vital Signs Date Time Temp Pulse Resp B/P (MAP) Pulse Ox O2 Delivery O2 Flow Rate FiO2 09/16/17 11:10 98.3 116 26 117/54 100 Mechanical Ventilator 90 98.3 09/16/17 11:04 114 22 80 09/16/17 10:00 99.0 117 28 145/50 100 Mechanical Ventilator 90 99.0 09/16/17 09:06 117 135/57 09/16/17 09:00 99.8 117 28 139/55 99 Mechanical Ventilator 90 99.8 09/16/17 08:42 119 25 80 09/16/17 08:00 90 09/16/17 08:00 100.2 119 25 139/58 99 Mechanical Ventilator 90 100.2 09/16/17 08:00 118 09/16/17 07:20 90 09/16/17 07:20 124 27 97 Mechanical Ventilator 90 09/16/17 07:15 118 25 98 Mechanical Ventilator 90 09/16/17 07:11 122 26 90 09/16/17 07:00 123 27 139/57 97 Mechanical Ventilator 100 09/16/17 06:00 118 27 145/56 99 Mechanical Ventilator 100 09/16/17 05:00 116 27 139/57 93 Mechanical Ventilator 100 09/16/17 04:46 110 26 100 09/16/17 04:00 113 09/16/17 04:00 98.7 114 27 136/54 93 Mechanical Ventilator 100 98.7 09/16/17 04:00 100 09/16/17 03:28 114 29 100 09/16/17 03:00 115 29 129/54 92 Mechanical Ventilator 100 09/16/17 02:00 100 09/16/17 02:00 114 29 125/53 90 Mechanical Ventilator 100 09/16/17 01:28 112 28 100 09/16/17 01:00 97.5 112 29 127/52 90 Mechanical Ventilator 90 97.5 09/16/17 00:00 97.8 112 29 129/74 95 Mechanical Ventilator 90 97.8 09/16/17 00:00 111 09/16/17 00:00 90 09/15/17 23:24 112 30 90 09/15/17 23:05 Mechanical Ventilator 90 09/15/17 23:05 Mechanical Ventilator 90 09/15/17 23:00 98.8 112 29 124/50 95 Mechanical Ventilator 90 98.8 09/15/17 22:00 100.0 113 28 107/46 97 Mechanical Ventilator 90 100.0 09/15/17 21:37 102.5 09/15/17 21:09 128 35 90 09/15/17 21:00 103.0 125 31 101/44 98 Mechanical Ventilator 90 103.0 09/15/17 20:53 103.0 09/15/17 20:00 143 09/15/17 20:00 90 09/15/17 20:00 102.0 143 33 146/48 99 Mechanical Ventilator 90 102.0 09/15/17 19:21 145 34 90 09/15/17 19:00 138 30 151/50 98 Mechanical Ventilator 80 09/15/17 18:00 100.1 149 30 153/54 98 Mechanical Ventilator 90 100.1 09/15/17 17:16 90 09/15/17 17:12 124 35 90 09/15/17 17:00 140 147/62 09/15/17 17:00 150 30 140/51 98 Mechanical Ventilator 80 09/15/17 16:00 125 09/15/17 16:00 80 09/15/17 16:00 154 34 176/70 98 Mechanical Ventilator 80 09/15/17 15:41 171/74 09/15/17 15:03 Mechanical Ventilator 09/15/17 15:01 Mechanical Ventilator 09/15/17 15:00 126 34 171/74 99 Mechanical Ventilator 80 09/15/17 14:42 126 34 80 09/15/17 14:00 121 32 163/69 99 Mechanical Ventilator 80 09/15/17 13:00 99.9 120 30 152/66 99 Mechanical Ventilator 80 99.9 09/15/17 12:58 128 34 80 09/15/17 12:00 113 25 149/66 99 Mechanical Ventilator 80 09/15/17 12:00 123 Height (Feet): 5 Height (Inches): 0.00 Weight (Pounds): 96 HEENT: anicteric Respiratory/Chest: no respiratory distress Cardiovascular: regular rhythm Abdomen: no organomegaly Laboratory Tests Test 09/16/17 03:35 White Blood Count 17.7 K/UL (4.8-10.8) H Red Blood Count 2.97 M/UL (4.20-5.40) L Hemoglobin 9.6 G/DL (12.0-16.0) L Hematocrit 29.5 % (37.0-47.0) L Mean Corpuscular Volume 99 FL (80-99) Mean Corpuscular Hemoglobin 32.3 PG (27.0-31.0) H Mean Corpuscular Hemoglobin Concent 32.5 G/DL (32.0-36.0) Red Cell Distribution Width 15.5 % (11.6-14.8) H Platelet Count 68 K/UL (150-450) L Mean Platelet Volume 9.3 FL (6.5-10.1) Neutrophils (%) (Auto) % (45.0-75.0) Lymphocytes (%) (Auto) % (20.0-45.0) Monocytes (%) (Auto) % (1.0-10.0) Eosinophils (%) (Auto) % (0.0-3.0) Basophils (%) (Auto) % (0.0-2.0) Differential Total Cells Counted 100 Neutrophils % (Manual) 90 % (45-75) H Lymphocytes % (Manual) 6 % (20-45) L Monocytes % (Manual) 3 % (1-10) Eosinophils % (Manual) 0 % (0-3) Basophils % (Manual) 0 % (0-2) Metamyelocytes % 1 % (0-0) H Band Neutrophils 0 % (0-8) Platelet Estimate Decreased L Platelet Morphology Normal Hypochromasia 2+ Anisocytosis 1+ Spherocytes 1+ Sodium Level 148 MMOL/L (136-145) H Potassium Level 3.3 MMOL/L (3.5-5.1) L Chloride Level 116 MMOL/L (98-107) H Carbon Dioxide Level 16 MMOL/L (21-32) L Anion Gap 16 mmol/L (5-15) H Blood Urea Nitrogen 28 mg/dL (7-18) H Creatinine 0.6 MG/DL (0.55-1.30) Estimat Glomerular Filtration Rate mL/min (>60) Glucose Level 239 MG/DL (74-106) H Calcium Level 7.2 MG/DL (8.5-10.1) L Phosphorus Level 1.8 MG/DL (2.5-4.9) L Magnesium Level 2.0 MG/DL (1.8-2.4) Total Bilirubin 1.1 MG/DL (0.2-1.0) H Direct Bilirubin 0.6 MG/DL (0.0-0.3) H Aspartate Amino Transf (AST/SGOT) 94 U/L (15-37) H Alanine Aminotransferase (ALT/SGPT) 75 U/L (12-78) Alkaline Phosphatase 460 U/L (46-116) H Total Protein 5.1 G/DL (6.4-8.2) L Albumin 1.4 G/DL (3.4-5.0) L Globulin 3.7 g/dL Albumin/Globulin Ratio 0.4 (1.0-2.7) L Current Medications Medications (Trade) Dose Ordered Sig/Hermes Route PRN Reason Start Time Stop Time Status Last Admin Dose Admin Acetaminophen (Tylenol) 650 mg EVERY 6 HOURS PRN NG Fever/Headache/Mild Pain 09/13/17 20:45 10/13/17 20:44 09/15/17 20:53 Albuterol/ Ipratropium (Albuterol/ Ipratropium) 3 ml Q4H PRN HHN Shortness of Breath 09/11/17 23:15 09/16/17 23:14 Albuterol/ Ipratropium (Albuterol/ Ipratropium) 3 ml Q8HR HHN 09/11/17 23:15 09/16/17 23:14 3/6/18 07:11 Amlodipine Besylate (Norvasc) 5 mg DAILY ORAL 09/16/17 09:00 10/16/17 08:59 09/16/17 09:06 Clonidine HCl (Catapres Tab) 0.1 mg Q2H PRN ORAL SBP > 170 09/15/17 17:15 10/15/17 16:59 Dextrose (Dextrose 50%) STAT PRN IV Hypoglycemia 09/13/17 15:00 10/13/17 14:59 Docusate Sodium (Colace) 100 mg TWICE A DAY ORAL 09/14/17 18:00 10/14/17 17:59 09/15/17 19:23 Heparin Sodium (Porcine) (Heparin 5000 units/ml) 5,000 units Q12H SUBQ 09/13/17 18:00 10/13/17 17:59 Hydralazine HCl (Apresoline) 10 mg Q2H PRN IV SBP > 170 09/15/17 15:00 10/15/17 14:59 Future hold 09/15/17 15:41 Insulin Aspart (NovoLOG) EVERY 6 HOURS SUBQ 09/13/17 18:00 10/13/17 17:59 09/16/17 05:36 Iron Sucrose 100 mg/Sodium Chloride 60 ml @ 240 mls/hr BEDTIME IV 09/13/17 21:00 09/17/17 21:14 09/15/17 20:53 Levofloxacin 100 ml @ 100 mls/hr Q24H IVPB 09/12/17 20:00 09/19/17 19:59 09/15/17 19:57 Lorazepam (Ativan 2mg/ml 1ml) 2 mg Q2HR PRN IV For Anxiety 09/12/17 22:00 09/19/17 21:59 09/15/17 11:22 Morphine Sulfate (Morphine Sulfate) 4 mg Q4H PRN IVP For Pain 09/12/17 10:45 09/19/17 10:44 09/15/17 15:41 Oseltamivir Phosphate (Tamiflu) 30 mg BID ORAL 09/12/17 20:00 09/17/17 19:59 09/16/17 09:05 Pantoprazole (Protonix) 40 mg DAILY IV 09/13/17 09:00 10/13/17 08:59 09/16/17 09:05 Polyethylene Glycol (Miralax) 17 gm BEDTIME ORAL 09/14/17 21:00 10/14/17 20:59 09/14/17 21:21 Potassium Phosphate 30 mm/ Sodium Chloride 560 ml @ 93.3 mls/hr ONCE ONCE IV 09/16/17 09:00 09/16/17 15:00 09/16/17 08:59 Vancomycin HCl (Vanco rx to dose) 1 ea DAILY PRN MISC Per rx protocol 09/11/17 23:15 10/11/17 23:14 Vancomycin HCl 500 mg/Dextrose 275 ml @ 275 mls/hr Q12H IVPB 09/15/17 13:00 09/20/17 12:59 09/16/17 00:43 DEBBIE MURRY M.D. Sep 16, 2017 12:01
--- NOTE | 2017-09-16 15:32 | Cardiac Electrophysiology PN ---
Assessment/Plan Assessment/Plan 1. Respiratory failure, due to underlying acute respiratory distress syndrome versus pneumonia,. Intubated on the vent. Already ruled out for myocardial infarction. 2. Left bundle-branch block. No evidence of advanced heart block. 3. HTN and diastolic dysfunction. On Norvasc 5 mg daily 4. Hyponatremia. 5. Pneumonia and sepsis on IV antibiotics by Dr. Hunter. 6. History of psychiatric disorder. Subjective Subjective Intubated on Vent in ICU unresponsive. Sinus tach but no SVT or VT. Being weaned off Vent 100% Fio2 now down to 60% Objective Last 24 Hour Vital Signs Date Time Temp Pulse Resp B/P (MAP) Pulse Ox O2 Delivery O2 Flow Rate FiO2 09/16/17 14:00 98.7 116 29 135/57 100 Mechanical Ventilator 70 98.7 09/16/17 13:16 117 26 60 09/16/17 13:00 99.2 115 27 125/56 100 Mechanical Ventilator 70 99.2 09/16/17 12:00 70 09/16/17 12:00 98.1 112 25 122/55 100 Mechanical Ventilator 70 98.1 09/16/17 12:00 117 09/16/17 11:10 98.3 116 26 117/54 100 Mechanical Ventilator 90 98.3 09/16/17 11:04 114 22 80 09/16/17 11:00 70 09/16/17 10:00 80 09/16/17 10:00 99.0 117 28 145/50 100 Mechanical Ventilator 90 99.0 09/16/17 09:06 117 135/57 09/16/17 09:00 99.8 117 28 139/55 99 Mechanical Ventilator 90 99.8 09/16/17 08:42 119 25 80 09/16/17 08:00 90 09/16/17 08:00 100.2 119 25 139/58 99 Mechanical Ventilator 90 100.2 09/16/17 08:00 118 09/16/17 07:20 90 09/16/17 07:20 124 27 97 Mechanical Ventilator 90 09/16/17 07:15 118 25 98 Mechanical Ventilator 90 09/16/17 07:11 122 26 90 09/16/17 07:00 123 27 139/57 97 Mechanical Ventilator 100 09/16/17 06:00 118 27 145/56 99 Mechanical Ventilator 100 09/16/17 05:00 116 27 139/57 93 Mechanical Ventilator 100 09/16/17 04:46 110 26 100 09/16/17 04:00 113 09/16/17 04:00 98.7 114 27 136/54 93 Mechanical Ventilator 100 98.7 09/16/17 04:00 100 09/16/17 03:28 114 29 100 09/16/17 03:00 115 29 129/54 92 Mechanical Ventilator 100 09/16/17 02:00 100 09/16/17 02:00 114 29 125/53 90 Mechanical Ventilator 100 09/16/17 01:28 112 28 100 09/16/17 01:00 97.5 112 29 127/52 90 Mechanical Ventilator 90 97.5 09/16/17 00:00 97.8 112 29 129/74 95 Mechanical Ventilator 90 97.8 09/16/17 00:00 111 09/16/17 00:00 90 09/15/17 23:24 112 30 90 09/15/17 23:05 Mechanical Ventilator 90 09/15/17 23:05 Mechanical Ventilator 90 09/15/17 23:00 98.8 112 29 124/50 95 Mechanical Ventilator 90 98.8 09/15/17 22:00 100.0 113 28 107/46 97 Mechanical Ventilator 90 100.0 09/15/17 21:37 102.5 09/15/17 21:09 128 35 90 09/15/17 21:00 103.0 125 31 101/44 98 Mechanical Ventilator 90 103.0 09/15/17 20:53 103.0 09/15/17 20:00 143 09/15/17 20:00 90 09/15/17 20:00 102.0 143 33 146/48 99 Mechanical Ventilator 90 102.0 09/15/17 19:21 145 34 90 09/15/17 19:00 138 30 151/50 98 Mechanical Ventilator 80 09/15/17 18:00 100.1 149 30 153/54 98 Mechanical Ventilator 90 100.1 09/15/17 17:16 90 09/15/17 17:12 124 35 90 09/15/17 17:00 140 147/62 09/15/17 17:00 150 30 140/51 98 Mechanical Ventilator 80 09/15/17 16:00 125 09/15/17 16:00 80 09/15/17 16:00 154 34 176/70 98 Mechanical Ventilator 80 09/15/17 15:41 171/74 Intake and Output 09/15/17 09/16/17 19:00 07:00 Intake Total 1520 ml 1945 ml Output Total 570 ml 710 ml Balance 950 ml 1235 ml Intake Free Water 50 ml IV Total 1100 ml 1335 ml Tube Feeding 420 ml 510 ml Other 50 ml Output Urine Total 570 ml 710 ml # Bowel Movements 9 2 Laboratory Tests Test 09/16/17 03:35 09/16/17 12:30 White Blood Count 17.7 K/UL (4.8-10.8) H Red Blood Count 2.97 M/UL (4.20-5.40) L Hemoglobin 9.6 G/DL (12.0-16.0) L Hematocrit 29.5 % (37.0-47.0) L Mean Corpuscular Volume 99 FL (80-99) Mean Corpuscular Hemoglobin 32.3 PG (27.0-31.0) H Mean Corpuscular Hemoglobin Concent 32.5 G/DL (32.0-36.0) Red Cell Distribution Width 15.5 % (11.6-14.8) H Platelet Count 68 K/UL (150-450) L Mean Platelet Volume 9.3 FL (6.5-10.1) Neutrophils (%) (Auto) % (45.0-75.0) Lymphocytes (%) (Auto) % (20.0-45.0) Monocytes (%) (Auto) % (1.0-10.0) Eosinophils (%) (Auto) % (0.0-3.0) Basophils (%) (Auto) % (0.0-2.0) Differential Total Cells Counted 100 Neutrophils % (Manual) 90 % (45-75) H Lymphocytes % (Manual) 6 % (20-45) L Monocytes % (Manual) 3 % (1-10) Eosinophils % (Manual) 0 % (0-3) Basophils % (Manual) 0 % (0-2) Metamyelocytes % 1 % (0-0) H Band Neutrophils 0 % (0-8) Platelet Estimate Decreased L Platelet Morphology Normal Hypochromasia 2+ Anisocytosis 1+ Spherocytes 1+ Sodium Level 148 MMOL/L (136-145) H Potassium Level 3.3 MMOL/L (3.5-5.1) L Chloride Level 116 MMOL/L (98-107) H Carbon Dioxide Level 16 MMOL/L (21-32) L Anion Gap 16 mmol/L (5-15) H Blood Urea Nitrogen 28 mg/dL (7-18) H Creatinine 0.6 MG/DL (0.55-1.30) Estimat Glomerular Filtration Rate mL/min (>60) Glucose Level 239 MG/DL (74-106) H Calcium Level 7.2 MG/DL (8.5-10.1) L Phosphorus Level 1.8 MG/DL (2.5-4.9) L Magnesium Level 2.0 MG/DL (1.8-2.4) Total Bilirubin 1.1 MG/DL (0.2-1.0) H Direct Bilirubin 0.6 MG/DL (0.0-0.3) H Aspartate Amino Transf (AST/SGOT) 94 U/L (15-37) H Alanine Aminotransferase (ALT/SGPT) 75 U/L (12-78) Alkaline Phosphatase 460 U/L (46-116) H Total Protein 5.1 G/DL (6.4-8.2) L Albumin 1.4 G/DL (3.4-5.0) L Globulin 3.7 g/dL Albumin/Globulin Ratio 0.4 (1.0-2.7) L Vancomycin Level Trough 12.0 ug/mL (5.0-12.0) Objective HEAD AND NECK: No JVD. Orally intubated. LUNGS: Coarse rhonchi bilaterally, is on BiPAP. CARDIOVASCULAR: Regular S1 and S2. Not tachycardic. ABDOMEN: Soft. EXTREMITIES: 1+ pitting edema. ROLF OLIVIA Sep 16, 2017 15:32
--- NOTE | 2017-09-16 16:39 | Consultation ---
Consult Note Consult Note asked to eval for electrolyte imbalance and decrease urine out put admitted 4 days ago in ICU and intubated Examined Discussed with RN Data reviewed Assessment/Plan (1) ARDS (adult respiratory distress syndrome) (2) Aspiration pneumonia (3) Protein-calorie malnutrition, severe (4) Diabetes mellitus (5) Anemia , aplastic by history (6) DM (7) UTI (8) Electrolyte imbalance (9) HTN (10) Depression (11) RA Left ventricular ejection fraction estimated to be 55 %. Plan: Adjust BP meds K and Phos supplement Monitor renal parameters and urine output avoid nephrotoxics per orders YAEL HANSEN Sep 16, 2017 16:39
--- NOTE | 2017-09-16 18:39 | General Progress Note ---
Assessment/Plan Status: stable Subjective Date patient seen: Sep 16, 2017 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: Reports: anxiety, depressed, emotional problems Allergies: Coded Allergies: No Known Allergies (Verified , 11/18/08) Objective Last 24 Hour Vital Signs Date Time Temp Pulse Resp B/P (MAP) Pulse Ox O2 Delivery O2 Flow Rate FiO2 09/16/17 18:00 98.7 121 32 146/57 93 Mechanical Ventilator 60 98.7 09/16/17 17:00 99.2 119 29 130/45 93 Mechanical Ventilator 60 99.2 09/16/17 16:46 112 29 50 09/16/17 16:00 98.7 109 28 131/47 93 Mechanical Ventilator 60 98.7 09/16/17 16:00 116 09/16/17 16:00 60 09/16/17 15:35 113 29 93 Mechanical Ventilator 50 09/16/17 15:35 50 09/16/17 15:25 116 26 100 Mechanical Ventilator 60 09/16/17 15:25 116 26 60 09/16/17 15:00 98.1 113 22 138/52 100 Mechanical Ventilator 60 98.1 09/16/17 14:00 98.7 116 29 135/57 100 Mechanical Ventilator 60 98.7 09/16/17 13:16 117 26 60 09/16/17 13:00 60 09/16/17 13:00 99.2 115 27 125/56 100 Mechanical Ventilator 60 99.2 09/16/17 12:00 70 09/16/17 12:00 98.1 112 25 122/55 100 Mechanical Ventilator 70 98.1 09/16/17 12:00 117 09/16/17 11:10 98.3 116 26 117/54 100 Mechanical Ventilator 90 98.3 09/16/17 11:04 114 22 80 09/16/17 11:00 70 09/16/17 10:00 80 09/16/17 10:00 99.0 117 28 145/50 100 Mechanical Ventilator 90 99.0 09/16/17 09:06 117 135/57 09/16/17 09:00 99.8 117 28 139/55 99 Mechanical Ventilator 90 99.8 09/16/17 08:42 119 25 80 09/16/17 08:00 90 09/16/17 08:00 100.2 119 25 139/58 99 Mechanical Ventilator 90 100.2 09/16/17 08:00 118 3/6/18 07:20 90 09/16/17 07:20 124 27 97 Mechanical Ventilator 90 09/16/17 07:15 118 25 98 Mechanical Ventilator 90 09/16/17 07:11 122 26 90 09/16/17 07:00 123 27 139/57 97 Mechanical Ventilator 100 09/16/17 06:00 118 27 145/56 99 Mechanical Ventilator 100 09/16/17 05:00 116 27 139/57 93 Mechanical Ventilator 100 09/16/17 04:46 110 26 100 09/16/17 04:00 113 09/16/17 04:00 98.7 114 27 136/54 93 Mechanical Ventilator 100 98.7 09/16/17 04:00 100 09/16/17 03:28 114 29 100 09/16/17 03:00 115 29 129/54 92 Mechanical Ventilator 100 09/16/17 02:00 100 09/16/17 02:00 114 29 125/53 90 Mechanical Ventilator 100 09/16/17 01:28 112 28 100 09/16/17 01:00 97.5 112 29 127/52 90 Mechanical Ventilator 90 97.5 09/16/17 00:00 97.8 112 29 129/74 95 Mechanical Ventilator 90 97.8 09/16/17 00:00 111 09/16/17 00:00 90 09/15/17 23:24 112 30 90 09/15/17 23:05 Mechanical Ventilator 90 09/15/17 23:05 Mechanical Ventilator 90 09/15/17 23:00 98.8 112 29 124/50 95 Mechanical Ventilator 90 98.8 09/15/17 22:00 100.0 113 28 107/46 97 Mechanical Ventilator 90 100.0 09/15/17 21:37 102.5 09/15/17 21:09 128 35 90 09/15/17 21:00 103.0 125 31 101/44 98 Mechanical Ventilator 90 103.0 09/15/17 20:53 103.0 09/15/17 20:00 143 09/15/17 20:00 90 09/15/17 20:00 102.0 143 33 146/48 99 Mechanical Ventilator 90 102.0 09/15/17 19:21 145 34 90 09/15/17 19:00 138 30 151/50 98 Mechanical Ventilator 80 Intake and Output 09/15/17 09/16/17 19:00 07:00 Intake Total 1520 ml 1945 ml Output Total 570 ml 710 ml Balance 950 ml 1235 ml Intake Free Water 50 ml IV Total 1100 ml 1335 ml Tube Feeding 420 ml 510 ml Other 50 ml Output Urine Total 570 ml 710 ml # Bowel Movements 9 2 Laboratory Tests 09/16/17 03:35: White Blood Count 17.7H, Red Blood Count 2.97L, Hemoglobin 9.6L, Hematocrit 29.5L, Mean Corpuscular Volume 99, Mean Corpuscular Hemoglobin 32.3H, Mean Corpuscular Hemoglobin Concent 32.5, Red Cell Distribution Width 15.5H, Platelet Count 68L, Mean Platelet Volume 9.3, Neutrophils (%) (Auto) , Lymphocytes (%) (Auto) , Monocytes (%) (Auto) , Eosinophils (%) (Auto) , Basophils (%) (Auto) , Differential Total Cells Counted 100, Neutrophils % ( Manual) 90H, Lymphocytes % (Manual) 6L, Monocytes % (Manual) 3, Eosinophils % ( Manual) 0, Basophils % (Manual) 0, Metamyelocytes % 1H, Band Neutrophils 0, Platelet Estimate DecreasedL, Platelet Morphology Normal, Hypochromasia 2+, Anisocytosis 1+, Spherocytes 1+, Sodium Level 148H, Potassium Level 3.3L, Chloride Level 116H, Carbon Dioxide Level 16L, Anion Gap 16H, Blood Urea Nitrogen 28H, Creatinine 0.6, Estimat Glomerular Filtration Rate , Glucose Level 239H, Calcium Level 7.2L, Phosphorus Level 1.8L, Magnesium Level 2.0, Total Bilirubin 1.1H, Direct Bilirubin 0.6H, Aspartate Amino Transf (AST/SGOT) 94H, Alanine Aminotransferase (ALT/SGPT) 75, Alkaline Phosphatase 460H, Total Protein 5.1L, Albumin 1.4L, Globulin 3.7, Albumin/Globulin Ratio 0.4L 09/16/17 12:30: Vancomycin Level Trough 12.0 Height (Feet): 5 Height (Inches): 0.00 Weight (Pounds): 96 General Appearance: no apparent distress, lethargic, confused, agitated Dary Nixon M.D. Sep 16, 2017 18:39
--- NOTE | 2017-09-16 18:41 | Psych Consult Progress Note ---
Psych Consult Progress Note Consult 09/15/17 Vital Signs Last 24 Hour Vital Signs Date Time Temp Pulse Resp B/P (MAP) Pulse Ox O2 Delivery O2 Flow Rate FiO2 09/16/17 18:00 98.7 121 32 146/57 93 Mechanical Ventilator 60 98.7 09/16/17 17:00 99.2 119 29 130/45 93 Mechanical Ventilator 60 99.2 09/16/17 16:46 112 29 50 09/16/17 16:00 98.7 109 28 131/47 93 Mechanical Ventilator 60 98.7 09/16/17 16:00 116 09/16/17 16:00 60 09/16/17 15:35 113 29 93 Mechanical Ventilator 50 09/16/17 15:35 50 09/16/17 15:25 116 26 100 Mechanical Ventilator 60 09/16/17 15:25 116 26 60 09/16/17 15:00 98.1 113 22 138/52 100 Mechanical Ventilator 60 98.1 09/16/17 14:00 98.7 116 29 135/57 100 Mechanical Ventilator 60 98.7 09/16/17 13:16 117 26 60 09/16/17 13:00 60 09/16/17 13:00 99.2 115 27 125/56 100 Mechanical Ventilator 60 99.2 09/16/17 12:00 70 09/16/17 12:00 98.1 112 25 122/55 100 Mechanical Ventilator 70 98.1 09/16/17 12:00 117 09/16/17 11:10 98.3 116 26 117/54 100 Mechanical Ventilator 90 98.3 09/16/17 11:04 114 22 80 09/16/17 11:00 70 09/16/17 10:00 80 09/16/17 10:00 99.0 117 28 145/50 100 Mechanical Ventilator 90 99.0 09/16/17 09:06 117 135/57 09/16/17 09:00 99.8 117 28 139/55 99 Mechanical Ventilator 90 99.8 09/16/17 08:42 119 25 80 09/16/17 08:00 90 09/16/17 08:00 100.2 119 25 139/58 99 Mechanical Ventilator 90 100.2 09/16/17 08:00 118 09/16/17 07:20 90 09/16/17 07:20 124 27 97 Mechanical Ventilator 90 09/16/17 07:15 118 25 98 Mechanical Ventilator 90 09/16/17 07:11 122 26 90 09/16/17 07:00 123 27 139/57 97 Mechanical Ventilator 100 09/16/17 06:00 118 27 145/56 99 Mechanical Ventilator 100 09/16/17 05:00 116 27 139/57 93 Mechanical Ventilator 100 09/16/17 04:46 110 26 100 09/16/17 04:00 113 09/16/17 04:00 98.7 114 27 136/54 93 Mechanical Ventilator 100 98.7 09/16/17 04:00 100 09/16/17 03:28 114 29 100 09/16/17 03:00 115 29 129/54 92 Mechanical Ventilator 100 09/16/17 02:00 100 09/16/17 02:00 114 29 125/53 90 Mechanical Ventilator 100 09/16/17 01:28 112 28 100 09/16/17 01:00 97.5 112 29 127/52 90 Mechanical Ventilator 90 97.5 09/16/17 00:00 97.8 112 29 129/74 95 Mechanical Ventilator 90 97.8 09/16/17 00:00 111 09/16/17 00:00 90 09/15/17 23:24 112 30 90 09/15/17 23:05 Mechanical Ventilator 90 09/15/17 23:05 Mechanical Ventilator 90 09/15/17 23:00 98.8 112 29 124/50 95 Mechanical Ventilator 90 98.8 09/15/17 22:00 100.0 113 28 107/46 97 Mechanical Ventilator 90 100.0 09/15/17 21:37 102.5 09/15/17 21:09 128 35 90 09/15/17 21:00 103.0 125 31 101/44 98 Mechanical Ventilator 90 103.0 09/15/17 20:53 103.0 09/15/17 20:00 143 09/15/17 20:00 90 09/15/17 20:00 102.0 143 33 146/48 99 Mechanical Ventilator 90 102.0 09/15/17 19:21 145 34 90 09/15/17 19:00 138 30 151/50 98 Mechanical Ventilator 80 Labs Laboratory Tests Test 09/16/17 03:35 09/16/17 12:30 White Blood Count 17.7 K/UL (4.8-10.8) H Red Blood Count 2.97 M/UL (4.20-5.40) L Hemoglobin 9.6 G/DL (12.0-16.0) L Hematocrit 29.5 % (37.0-47.0) L Mean Corpuscular Volume 99 FL (80-99) Mean Corpuscular Hemoglobin 32.3 PG (27.0-31.0) H Mean Corpuscular Hemoglobin Concent 32.5 G/DL (32.0-36.0) Red Cell Distribution Width 15.5 % (11.6-14.8) H Platelet Count 68 K/UL (150-450) L Mean Platelet Volume 9.3 FL (6.5-10.1) Neutrophils (%) (Auto) % (45.0-75.0) Lymphocytes (%) (Auto) % (20.0-45.0) Monocytes (%) (Auto) % (1.0-10.0) Eosinophils (%) (Auto) % (0.0-3.0) Basophils (%) (Auto) % (0.0-2.0) Differential Total Cells Counted 100 Neutrophils % (Manual) 90 % (45-75) H Lymphocytes % (Manual) 6 % (20-45) L Monocytes % (Manual) 3 % (1-10) Eosinophils % (Manual) 0 % (0-3) Basophils % (Manual) 0 % (0-2) Metamyelocytes % 1 % (0-0) H Band Neutrophils 0 % (0-8) Platelet Estimate Decreased L Platelet Morphology Normal Hypochromasia 2+ Anisocytosis 1+ Spherocytes 1+ Sodium Level 148 MMOL/L (136-145) H Potassium Level 3.3 MMOL/L (3.5-5.1) L Chloride Level 116 MMOL/L (98-107) H Carbon Dioxide Level 16 MMOL/L (21-32) L Anion Gap 16 mmol/L (5-15) H Blood Urea Nitrogen 28 mg/dL (7-18) H Creatinine 0.6 MG/DL (0.55-1.30) Estimat Glomerular Filtration Rate mL/min (>60) Glucose Level 239 MG/DL (74-106) H Calcium Level 7.2 MG/DL (8.5-10.1) L Phosphorus Level 1.8 MG/DL (2.5-4.9) L Magnesium Level 2.0 MG/DL (1.8-2.4) Total Bilirubin 1.1 MG/DL (0.2-1.0) H Direct Bilirubin 0.6 MG/DL (0.0-0.3) H Aspartate Amino Transf (AST/SGOT) 94 U/L (15-37) H Alanine Aminotransferase (ALT/SGPT) 75 U/L (12-78) Alkaline Phosphatase 460 U/L (46-116) H Total Protein 5.1 G/DL (6.4-8.2) L Albumin 1.4 G/DL (3.4-5.0) L Globulin 3.7 g/dL Albumin/Globulin Ratio 0.4 (1.0-2.7) L Vancomycin Level Trough 12.0 ug/mL (5.0-12.0) Medications Current Medications Medications (Trade) Dose Ordered Sig/Hermes Route PRN Reason Start Time Stop Time Status Last Admin Dose Admin Acetaminophen (Tylenol) 650 mg EVERY 6 HOURS PRN NG Fever/Headache/Mild Pain 09/13/17 20:45 10/13/17 20:44 09/15/17 20:53 Albuterol/ Ipratropium (Albuterol/ Ipratropium) 3 ml Q4H PRN HHN Shortness of Breath 09/11/17 23:15 09/16/17 23:14 Albuterol/ Ipratropium (Albuterol/ Ipratropium) 3 ml Q8HR HHN 09/11/17 23:15 09/16/17 23:14 09/16/17 15:24 Amlodipine Besylate (Norvasc) 5 mg DAILY ORAL 09/16/17 09:00 10/16/17 08:59 09/16/17 09:06 Clonidine HCl (Catapres Tab) 0.1 mg Q4H PRN ORAL SBP>160 UNRELIEVED BY HYDRALAZ 09/16/17 16:45 10/15/17 16:59 Dextrose (Dextrose 50%) STAT PRN IV Hypoglycemia 09/13/17 15:00 10/13/17 14:59 Docusate Sodium (Colace) 100 mg TWICE A DAY ORAL 09/14/17 18:00 10/14/17 17:59 09/15/17 19:23 Heparin Sodium (Porcine) (Heparin 5000 units/ml) 5,000 units Q12H SUBQ 09/13/17 18:00 10/13/17 17:59 Insulin Aspart (NovoLOG) EVERY 6 HOURS SUBQ 09/13/17 18:00 10/13/17 17:59 09/16/17 18:23 Iron Sucrose 100 mg/Sodium Chloride 60 ml @ 240 mls/hr BEDTIME IV 09/13/17 21:00 09/17/17 21:14 09/15/17 20:53 Levofloxacin 100 ml @ 100 mls/hr Q24H IVPB 09/12/17 20:00 09/19/17 19:59 09/15/17 19:57 Lorazepam (Ativan 2mg/ml 1ml) 2 mg Q2HR PRN IV For Anxiety 09/12/17 22:00 09/19/17 21:59 09/15/17 11:22 Morphine Sulfate (Morphine Sulfate) 4 mg Q4H PRN IVP For Pain 09/12/17 10:45 09/19/17 10:44 09/15/17 15:41 Oseltamivir Phosphate (Tamiflu) 30 mg BID ORAL 09/12/17 20:00 09/17/17 19:59 09/16/17 18:20 Pantoprazole (Protonix) 40 mg DAILY IV 09/13/17 09:00 10/13/17 08:59 09/16/17 09:05 Polyethylene Glycol (Miralax) 17 gm BEDTIME ORAL 09/14/17 21:00 10/14/17 20:59 09/14/17 21:21 Vancomycin HCl (Vanco rx to dose) 1 ea DAILY PRN MISC Per rx protocol 09/11/17 23:15 10/11/17 23:14 Vancomycin/Sodium Chloride 250 ml @ 166.667 mls/hr Q12HR@0100,1300 IVPB 09/17/17 01:00 09/22/17 00:59 Problems: (1) Aspiration pneumonia (2) Protein-calorie malnutrition, severe (3) Diabetes mellitus (4) ARDS (adult respiratory distress syndrome) (5) Anemia Status: Acute (6) Pulmonary edema (7) UTI (urinary tract infection) Status: Acute (8) Transaminitis Status: Acute (9) Respiratory failure (10) Arthritis, rheumatoid (11) Dyspnea (12) Parkinsons disease (13) Sepsis (14) GERD (gastroesophageal reflux disease) (15) Aplastic anemia (16) Pneumonia (17) HTN (hypertension) Assessment/Plan Status: stable Assessment/Plan Encephalopathy, agitation, psychotic disorder. PLAN: 1. The patient will be continued on lorazepam intravenous q.4 hours as needed for anxiety and agitation. 2. We will continue to follow and readjust the medications. Dary Nixon M.D. Sep 16, 2017 18:41
--- NOTE | 2017-09-16 20:01 | Internal Med Progress Note ---
Subjective Date of Service: Sep 16, 2017 Physician Name Noah Bowens Attending Physician Jesus Barahona MD Current Medications Medications (Trade) Dose Ordered Sig/Hermes Route PRN Reason Start Time Stop Time Status Last Admin Dose Admin Acetaminophen (Tylenol) 650 mg EVERY 6 HOURS PRN NG Fever/Headache/Mild Pain 09/13/17 20:45 10/13/17 20:44 09/15/17 20:53 Albuterol/ Ipratropium (Albuterol/ Ipratropium) 3 ml Q4H PRN HHN Shortness of Breath 09/11/17 23:15 09/16/17 23:14 Albuterol/ Ipratropium (Albuterol/ Ipratropium) 3 ml Q8HR HHN 09/11/17 23:15 09/16/17 23:14 09/16/17 15:24 Amlodipine Besylate (Norvasc) 5 mg DAILY ORAL 09/16/17 09:00 10/16/17 08:59 09/16/17 09:06 Clonidine HCl (Catapres Tab) 0.1 mg Q4H PRN ORAL SBP>160 UNRELIEVED BY HYDRALAZ 09/16/17 16:45 10/15/17 16:59 Dextrose (Dextrose 50%) STAT PRN IV Hypoglycemia 09/13/17 15:00 10/13/17 14:59 Docusate Sodium (Colace) 100 mg TWICE A DAY ORAL 09/14/17 18:00 10/14/17 17:59 09/15/17 19:23 Heparin Sodium (Porcine) (Heparin 5000 units/ml) 5,000 units Q12H SUBQ 09/13/17 18:00 10/13/17 17:59 Insulin Aspart (NovoLOG) EVERY 6 HOURS SUBQ 09/13/17 18:00 10/13/17 17:59 09/16/17 18:23 Iron Sucrose 100 mg/Sodium Chloride 60 ml @ 240 mls/hr BEDTIME IV 09/13/17 21:00 09/17/17 21:14 09/15/17 20:53 Levofloxacin 100 ml @ 100 mls/hr Q24H IVPB 09/12/17 20:00 09/19/17 19:59 09/15/17 19:57 Lorazepam (Ativan 2mg/ml 1ml) 2 mg Q2HR PRN IV For Anxiety 09/12/17 22:00 09/19/17 21:59 09/15/17 11:22 Morphine Sulfate (Morphine Sulfate) 4 mg Q4H PRN IVP For Pain 09/12/17 10:45 09/19/17 10:44 09/15/17 15:41 Oseltamivir Phosphate (Tamiflu) 30 mg BID ORAL 09/12/17 20:00 09/17/17 19:59 09/16/17 18:20 Pantoprazole (Protonix) 40 mg DAILY IV 09/13/17 09:00 10/13/17 08:59 09/16/17 09:05 Polyethylene Glycol (Miralax) 17 gm BEDTIME ORAL 09/14/17 21:00 10/14/17 20:59 09/14/17 21:21 Vancomycin HCl (Vanco rx to dose) 1 ea DAILY PRN MISC Per rx protocol 09/11/17 23:15 10/11/17 23:14 Vancomycin/Sodium Chloride 250 ml @ 166.667 mls/hr Q12HR@0100,1300 IVPB 09/17/17 01:00 09/22/17 00:59 Allergies: Coded Allergies: No Known Allergies (Verified , 11/18/08) ROS Limited/Unobtainable: Yes Subjective 76 YO F admitted with Shortness of breath, now respiratory failure. Intubated and sedated. Cover for Internal Med-Dr. Barahona. ICU Low Grade fever overnight Objective Last Vital Signs Date Time Temp Pulse Resp B/P (MAP) Pulse Ox O2 Delivery O2 Flow Rate FiO2 09/16/17 19:00 120 31 152/61 93 Mechanical Ventilator 60 09/16/17 18:00 98.7 98.7 09/12/17 00:35 15.0 Laboratory Tests Test 09/16/17 03:35 09/16/17 12:30 White Blood Count 17.7 K/UL (4.8-10.8) H Red Blood Count 2.97 M/UL (4.20-5.40) L Hemoglobin 9.6 G/DL (12.0-16.0) L Hematocrit 29.5 % (37.0-47.0) L Mean Corpuscular Volume 99 FL (80-99) Mean Corpuscular Hemoglobin 32.3 PG (27.0-31.0) H Mean Corpuscular Hemoglobin Concent 32.5 G/DL (32.0-36.0) Red Cell Distribution Width 15.5 % (11.6-14.8) H Platelet Count 68 K/UL (150-450) L Mean Platelet Volume 9.3 FL (6.5-10.1) Neutrophils (%) (Auto) % (45.0-75.0) Lymphocytes (%) (Auto) % (20.0-45.0) Monocytes (%) (Auto) % (1.0-10.0) Eosinophils (%) (Auto) % (0.0-3.0) Basophils (%) (Auto) % (0.0-2.0) Differential Total Cells Counted 100 Neutrophils % (Manual) 90 % (45-75) H Lymphocytes % (Manual) 6 % (20-45) L Monocytes % (Manual) 3 % (1-10) Eosinophils % (Manual) 0 % (0-3) Basophils % (Manual) 0 % (0-2) Metamyelocytes % 1 % (0-0) H Band Neutrophils 0 % (0-8) Platelet Estimate Decreased L Platelet Morphology Normal Hypochromasia 2+ Anisocytosis 1+ Spherocytes 1+ Sodium Level 148 MMOL/L (136-145) H Potassium Level 3.3 MMOL/L (3.5-5.1) L Chloride Level 116 MMOL/L (98-107) H Carbon Dioxide Level 16 MMOL/L (21-32) L Anion Gap 16 mmol/L (5-15) H Blood Urea Nitrogen 28 mg/dL (7-18) H Creatinine 0.6 MG/DL (0.55-1.30) Estimat Glomerular Filtration Rate mL/min (>60) Glucose Level 239 MG/DL (74-106) H Calcium Level 7.2 MG/DL (8.5-10.1) L Phosphorus Level 1.8 MG/DL (2.5-4.9) L Magnesium Level 2.0 MG/DL (1.8-2.4) Total Bilirubin 1.1 MG/DL (0.2-1.0) H Direct Bilirubin 0.6 MG/DL (0.0-0.3) H Aspartate Amino Transf (AST/SGOT) 94 U/L (15-37) H Alanine Aminotransferase (ALT/SGPT) 75 U/L (12-78) Alkaline Phosphatase 460 U/L (46-116) H Total Protein 5.1 G/DL (6.4-8.2) L Albumin 1.4 G/DL (3.4-5.0) L Globulin 3.7 g/dL Albumin/Globulin Ratio 0.4 (1.0-2.7) L C-Reactive Protein, Quantitative > 70.0 mg/dL (0.00-0.90) H Vancomycin Level Trough 12.0 ug/mL (5.0-12.0) Intake and Output 09/15/17 09/16/17 19:00 07:00 Intake Total 1520 ml 1945 ml Output Total 570 ml 710 ml Balance 950 ml 1235 ml Intake Free Water 50 ml IV Total 1100 ml 1335 ml Tube Feeding 420 ml 510 ml Other 50 ml Output Urine Total 570 ml 710 ml # Bowel Movements 9 2 Objective General Appearance: lethargic, thin EENT: normal ENT inspection Neck: non-tender, normal alignment, supple Cardiovascular: normal peripheral pulses, normal rate, regular rhythm, no gallop/murmur, no JVD Respiratory/Chest: Mechanical vent; respiratory distress, crackles/rales, rhonchi - bilaterally, expiratory wheezing Abdomen: normal bowel sounds, non tender, soft, no organomegaly, no mass Skin: normal pigmentation, warm/dry Assessment/Plan Problem List: (1) HTN (hypertension) Assessment & Plan: Currently hypotensive. (2) Arthritis, rheumatoid (3) Parkinsons disease (4) Aplastic anemia (5) GERD (gastroesophageal reflux disease) (6) Respiratory failure Assessment & Plan: Cont vent per pulmonary (7) Pneumonia (8) Dyspnea (9) Sepsis Assessment & Plan: Blood culture neg. Continue vanco and levaquin per ID (10) ARDS (adult respiratory distress syndrome) (11) UTI (urinary tract infection) Assessment & Plan: E.Coli. Continue levaquin (12) Anemia Assessment & Plan: S/P Transfusion 2 units PRBC Status: not improved NOAH BOWENS Sep 16, 2017 20:01
[2017-09-16] MEDS ORDERED: Sterile Water Irrig 1000ml IRRIG ONE (20:24)
[2017-09-16] MEDS ORDERED: NS 275ml ONE (20:24)
[2017-09-16] MEDS: Miralax 17gm pkt ORAL SCH (21:00)
[2017-09-16] MEDS: Iron Sucrose 100 MG in NS 55 ML IV SCH (21:26)
--- NOTE | 2017-09-16 22:16 | General Progress Note ---
Assessment/Plan Assessment/Plan Assessment - Resp failure / ARDS - Abnormal LFT with rapid resolution - Anemia with OB (+) stools - Malnutrition Recommendations - NGT feeds - check abd u/s - pending - Elevate HOB - Vent care - Monitor H&H - PPI Subjective Allergies: Coded Allergies: No Known Allergies (Verified , 11/18/08) Subjective on Vent in ICU poorly communicative feeds d/w staff counsel Objective Last 24 Hour Vital Signs Date Time Temp Pulse Resp B/P (MAP) Pulse Ox O2 Delivery O2 Flow Rate FiO2 09/16/17 20:43 120 39 60 09/16/17 20:00 98.8 125 28 121/48 94 Mechanical Ventilator 60 98.8 09/16/17 20:00 60 09/16/17 19:30 122 30 60 09/16/17 19:00 120 31 152/61 93 Mechanical Ventilator 60 09/16/17 18:00 98.7 121 32 146/57 93 Mechanical Ventilator 60 98.7 09/16/17 17:00 99.2 119 29 130/45 93 Mechanical Ventilator 60 99.2 09/16/17 16:46 112 29 50 09/16/17 16:00 98.7 109 28 131/47 93 Mechanical Ventilator 60 98.7 09/16/17 16:00 116 09/16/17 16:00 60 09/16/17 15:35 113 29 93 Mechanical Ventilator 50 09/16/17 15:35 50 09/16/17 15:25 116 26 100 Mechanical Ventilator 60 09/16/17 15:25 116 26 60 09/16/17 15:00 98.1 113 22 138/52 100 Mechanical Ventilator 60 98.1 09/16/17 14:00 98.7 116 29 135/57 100 Mechanical Ventilator 60 98.7 09/16/17 13:16 117 26 60 09/16/17 13:00 60 09/16/17 13:00 99.2 115 27 125/56 100 Mechanical Ventilator 60 99.2 09/16/17 12:00 70 09/16/17 12:00 98.1 112 25 122/55 100 Mechanical Ventilator 70 98.1 09/16/17 12:00 117 09/16/17 11:10 98.3 116 26 117/54 100 Mechanical Ventilator 90 98.3 09/16/17 11:04 114 22 80 09/16/17 11:00 70 09/16/17 10:00 80 09/16/17 10:00 99.0 117 28 145/50 100 Mechanical Ventilator 90 99.0 09/16/17 09:06 117 135/57 09/16/17 09:00 99.8 117 28 139/55 99 Mechanical Ventilator 90 99.8 09/16/17 08:42 119 25 80 09/16/17 08:00 90 09/16/17 08:00 100.2 119 25 139/58 99 Mechanical Ventilator 90 100.2 09/16/17 08:00 118 09/16/17 07:20 90 09/16/17 07:20 124 27 97 Mechanical Ventilator 90 09/16/17 07:15 118 25 98 Mechanical Ventilator 90 09/16/17 07:11 122 26 90 09/16/17 07:00 123 27 139/57 97 Mechanical Ventilator 100 09/16/17 06:00 118 27 145/56 99 Mechanical Ventilator 100 09/16/17 05:00 116 27 139/57 93 Mechanical Ventilator 100 09/16/17 04:46 110 26 100 09/16/17 04:00 113 09/16/17 04:00 98.7 114 27 136/54 93 Mechanical Ventilator 100 98.7 09/16/17 04:00 100 09/16/17 03:28 114 29 100 09/16/17 03:00 115 29 129/54 92 Mechanical Ventilator 100 09/16/17 02:00 100 09/16/17 02:00 114 29 125/53 90 Mechanical Ventilator 100 09/16/17 01:28 112 28 100 09/16/17 01:00 97.5 112 29 127/52 90 Mechanical Ventilator 90 97.5 09/16/17 00:00 97.8 112 29 129/74 95 Mechanical Ventilator 90 97.8 09/16/17 00:00 111 09/16/17 00:00 90 09/15/17 23:24 112 30 90 09/15/17 23:05 Mechanical Ventilator 90 09/15/17 23:05 Mechanical Ventilator 90 09/15/17 23:00 98.8 112 29 124/50 95 Mechanical Ventilator 90 98.8 Intake and Output 09/15/17 09/16/17 19:00 07:00 Intake Total 1520 ml 1945 ml Output Total 570 ml 710 ml Balance 950 ml 1235 ml Intake Free Water 50 ml IV Total 1100 ml 1335 ml Tube Feeding 420 ml 510 ml Other 50 ml Output Urine Total 570 ml 710 ml # Bowel Movements 9 2 Laboratory Tests 09/16/17 03:35: White Blood Count 17.7H, Red Blood Count 2.97L, Hemoglobin 9.6L, Hematocrit 29.5L, Mean Corpuscular Volume 99, Mean Corpuscular Hemoglobin 32.3H, Mean Corpuscular Hemoglobin Concent 32.5, Red Cell Distribution Width 15.5H, Platelet Count 68L, Mean Platelet Volume 9.3, Neutrophils (%) (Auto) , Lymphocytes (%) (Auto) , Monocytes (%) (Auto) , Eosinophils (%) (Auto) , Basophils (%) (Auto) , Differential Total Cells Counted 100, Neutrophils % ( Manual) 90H, Lymphocytes % (Manual) 6L, Monocytes % (Manual) 3, Eosinophils % ( Manual) 0, Basophils % (Manual) 0, Metamyelocytes % 1H, Band Neutrophils 0, Platelet Estimate DecreasedL, Platelet Morphology Normal, Hypochromasia 2+, Anisocytosis 1+, Spherocytes 1+, Sodium Level 148H, Potassium Level 3.3L, Chloride Level 116H, Carbon Dioxide Level 16L, Anion Gap 16H, Blood Urea Nitrogen 28H, Creatinine 0.6, Estimat Glomerular Filtration Rate , Glucose Level 239H, Calcium Level 7.2L, Phosphorus Level 1.8L, Magnesium Level 2.0, Total Bilirubin 1.1H, Direct Bilirubin 0.6H, Aspartate Amino Transf (AST/SGOT) 94H, Alanine Aminotransferase (ALT/SGPT) 75, Alkaline Phosphatase 460H, Total Protein 5.1L, Albumin 1.4L, Globulin 3.7, Albumin/Globulin Ratio 0.4L 09/16/17 12:30: C-Reactive Protein, Quantitative > 70.0H, Vancomycin Level Trough 12.0 Height (Feet): 5 Height (Inches): 0.00 Weight (Pounds): 96 Objective WDWN NCAT supple CTA RRR abd soft confused KEKECTARNULFO Sep 16, 2017 22:16
[2017-09-17] VITALS (24 sets, daily range): BP systolic 109–145; BP diastolic 49–125
[2017-09-17] MEDS: NovoLOG Insulin Flexpen SUBQ SCH ×5 (00:09→23:57)
[2017-09-17] MEDS ORDERED: Vancomycin 1.5gm/D5W 250ml 250 ML IVPB SCH (01:00)
[2017-09-17] MEDS: Vancomycin 750mg/NS 250ml 250 ML IVPB SCH ×2 (01:09→14:10)
[2017-09-17] MEDS: Heparin 5000 units/ml inj SUBQ SCH ×2 (06:00→17:20)
--- NOTE | 2017-09-17 06:48 | Pulmonolgy Critical Care Note ---
Critical Care - Asmt/Plan Problems: (1) ARDS (adult respiratory distress syndrome) (2) Aspiration pneumonia (3) Protein-calorie malnutrition, severe (4) Diabetes mellitus (5) Anemia Respiratory: monitor respiratory rate, adjust FIO2, CXR Cardiac: continue pressors Renal: F/U I&O, keep IV fluid Infectious Disease: check cultures Gastrointestinal: continue feedings/current rate Endocrine: check TSH, check HgA1C, continue sliding scale insulin Hematologic: transfuse if hgb<8.5 Neurologic: PRN Ativan, keep patient comfortable Affect: PRN ativan Prophylaxis: Protonix Disposition: keep in ICU Time Spent (Minutes): 30 Notes Reviewed: cardio, renal Discussed with: nurses, consultants, case assistantcasino cashier manager - Objective Last 24 Hour Vital Signs Date Time Temp Pulse Resp B/P (MAP) Pulse Ox O2 Delivery O2 Flow Rate FiO2 09/17/17 06:19 90 09/17/17 05:27 135 26 100 09/17/17 04:25 100 09/17/17 04:00 98.1 127 29 128/60 93 Mechanical Ventilator 80 98.1 09/17/17 04:00 80 09/17/17 03:11 121 25 80 09/17/17 03:00 124 29 138/64 93 Mechanical Ventilator 80 09/17/17 02:00 116 30 126/61 93 Mechanical Ventilator 80 09/17/17 01:00 131 30 141/58 95 Mechanical Ventilator 80 09/17/17 00:59 126 29 80 09/17/17 00:00 138 09/17/17 00:00 80 09/17/17 00:00 99.8 135 30 135/54 97 Mechanical Ventilator 80 99.8 09/16/17 23:21 130 33 60 09/16/17 23:17 Mechanical Ventilator 09/16/17 23:16 130 Mechanical Ventilator 09/16/17 23:00 133 30 142/56 94 Mechanical Ventilator 60 09/16/17 22:00 121 30 120/53 94 Mechanical Ventilator 60 09/16/17 21:00 128 31 112/48 94 Mechanical Ventilator 60 09/16/17 20:43 120 39 60 09/16/17 20:00 98.8 125 28 121/48 94 Mechanical Ventilator 60 98.8 09/16/17 20:00 60 09/16/17 20:00 121 09/16/17 19:30 122 30 60 09/16/17 19:00 120 31 152/61 93 Mechanical Ventilator 60 09/16/17 18:00 98.7 121 32 146/57 93 Mechanical Ventilator 60 98.7 09/16/17 17:00 99.2 119 29 130/45 93 Mechanical Ventilator 60 99.2 09/16/17 16:46 112 29 50 09/16/17 16:00 98.7 109 28 131/47 93 Mechanical Ventilator 60 98.7 09/16/17 16:00 116 09/16/17 16:00 60 09/16/17 15:35 113 29 93 Mechanical Ventilator 50 09/16/17 15:35 50 09/16/17 15:25 116 26 100 Mechanical Ventilator 60 09/16/17 15:25 116 26 60 09/16/17 15:00 98.1 113 22 138/52 100 Mechanical Ventilator 60 98.1 09/16/17 14:00 98.7 116 29 135/57 100 Mechanical Ventilator 60 98.7 09/16/17 13:16 117 26 60 09/16/17 13:00 60 09/16/17 13:00 99.2 115 27 125/56 100 Mechanical Ventilator 60 99.2 09/16/17 12:00 70 09/16/17 12:00 98.1 112 25 122/55 100 Mechanical Ventilator 70 98.1 09/16/17 12:00 117 09/16/17 11:10 98.3 116 26 117/54 100 Mechanical Ventilator 90 98.3 09/16/17 11:04 114 22 80 09/16/17 11:00 70 09/16/17 10:00 80 09/16/17 10:00 99.0 117 28 145/50 100 Mechanical Ventilator 90 99.0 09/16/17 09:06 117 135/57 09/16/17 09:00 99.8 117 28 139/55 99 Mechanical Ventilator 90 99.8 09/16/17 08:42 119 25 80 09/16/17 08:00 90 09/16/17 08:00 100.2 119 25 139/58 99 Mechanical Ventilator 90 100.2 09/16/17 08:00 118 09/16/17 07:20 90 09/16/17 07:20 124 27 97 Mechanical Ventilator 90 09/16/17 07:15 118 25 98 Mechanical Ventilator 90 09/16/17 07:11 122 26 90 3/6/18 07:00 123 27 139/57 97 Mechanical Ventilator 100 Status: awake Condition: critical HEENT: atraumatic Neck: full ROM Lungs: chest wall tender Heart: HR/BP stable, HR/BP unstable, regular Abdomen: non-tender, active bowel sounds Extremities: no C/C/E, edema Decubiti: stage Accucheck: 217 Critical Care - Subjective ROS Limited/Unobtainable: No ICU Day: 6 Intubation Day: 6 Condition: critical EKG Rhythm: Sinus Rhythm FI02: 90 Vent Support Breath Rate: 18 Vent Support Mode: AC Vent Tidal Volume: 500 Sputum Amount: Small PEEP: 7.0 PIP: 48 Tube Feeding Amount: 45 I&O: Intake and Output 09/16/17 09/17/17 19:00 07:00 Intake Total 1568.1 ml 955.000 ml Output Total 795 ml 570 ml Balance 773.1 ml 385.000 ml Intake Free Water 50 ml IV Total 928.1 ml 410.000 ml Tube Feeding 540 ml 495 ml Other 100 ml Output Urine Total 795 ml 570 ml # Bowel Movements 1 3 CXR: extensive infiltrate, ET in good position ET-Tube: 7.5 ET Position: 21 Labs: Laboratory Tests Test 09/16/17 12:30 09/17/17 06:00 C-Reactive Protein, Quantitative > 70.0 mg/dL (0.00-0.90) H Vancomycin Level Trough 12.0 ug/mL (5.0-12.0) White Blood Count Pending Red Blood Count Pending Hemoglobin Pending Hematocrit Pending Mean Corpuscular Volume Pending Mean Corpuscular Hemoglobin Pending Mean Corpuscular Hemoglobin Concent Pending Red Cell Distribution Width Pending Platelet Count Pending Mean Platelet Volume Pending Neutrophils (%) (Auto) Pending Lymphocytes (%) (Auto) Pending Monocytes (%) (Auto) Pending Eosinophils (%) (Auto) Pending Basophils (%) (Auto) Pending Sodium Level Pending Potassium Level Pending Chloride Level Pending Carbon Dioxide Level Pending Blood Urea Nitrogen Pending Creatinine Pending Estimat Glomerular Filtration Rate Pending Glucose Level Pending Hemoglobin A1c Pending Uric Acid Pending Calcium Level Pending Phosphorus Level Pending Magnesium Level Pending Total Bilirubin Pending Gamma Glutamyl Transpeptidase Pending Aspartate Amino Transf (AST/SGOT) Pending Alanine Aminotransferase (ALT/SGPT) Pending Alkaline Phosphatase Pending Total Creatine Kinase Pending Troponin I Pending Pro-B-Type Natriuretic Peptide Pending Total Protein Pending Albumin Pending Globulin Pending Triglycerides Level Pending Cholesterol Level Pending LDL Cholesterol Pending HDL Cholesterol Pending Cholesterol/HDL Ratio Pending Thyroid Stimulating Hormone (TSH) Pending ARUNA VANEGAS Sep 17, 2017 06:48
[2017-09-17 07:01] LABS: HEMATOCRIT 30.1 % (37.0-47.0); HEMOGLOBIN 9.8 G/DL (12.0-16.0); MEAN CORPUSCULAR VOLUME 99 FL (80-99); PLATELET COUNT 32 K/UL (150-450); RED BLOOD COUNT 3.04 M/UL (4.20-5.40); RED CELL DISTRIBUTION WIDTH 15.6 % (11.6-14.8)
[2017-09-17 07:10] LABS: WHITE BLOOD COUNT 22.3 K/UL (4.8-10.8)
[2017-09-17 07:24] LABS: CREATINE KINASE 51 U/L (26-308); GAMMA GLUTAMYL TRANSPEPTIDASE 387 U/L (5-85)
[2017-09-17 08:14] LABS: ALANINE AMINOTRANSFERASE 74 U/L (12-78); ALBUMIN 1.3 G/DL (3.4-5.0); ALBUMIN/GLOBULIN RATIO 0.3 (1.0-2.7); ALKALINE PHOSPHATASE 422 U/L (46-116); ANION GAP 15 mmol/L (5-15); ASPARTATE AMINO TRANSFERASE 74 U/L (15-37); BILIRUBIN,TOTAL 0.9 MG/DL (0.2-1.0); BLOOD UREA NITROGEN 37 mg/dL (7-18); CALCIUM 7.5 MG/DL (8.5-10.1); CARBON DIOXIDE 18 MMOL/L (21-32); CHLORIDE 120 MMOL/L (98-107); CHOLESTEROL 127 MG/DL (< 200); CREATININE 0.8 MG/DL (0.55-1.30); HDL CHOLESTEROL 23 MG/DL (40-60); PHOSPHORUS 2.6 MG/DL (2.5-4.9); POTASSIUM 3.6 MMOL/L (3.5-5.1); SODIUM 153 MMOL/L (136-145); TRIGLYCERIDES 87 MG/DL (30-150)
[2017-09-17] MEDS: Docusate 100mg cap ORAL SCH (08:15)
[2017-09-17] MEDS: Pantoprazole Inj IV SCH (08:15)
--- NOTE | 2017-09-17 09:54 | Nephrology Progress Note ---
Assessment/Plan Problem List: (1) ARDS (adult respiratory distress syndrome) (2) Electrolyte imbalance Assessment (1) ARDS (adult respiratory distress syndrome) (2) Aspiration pneumonia (3) Protein-calorie malnutrition, severe (4) Diabetes mellitus (5) Anemia , aplastic by history (6) DM (7) UTI (8) Electrolyte imbalance (9) HTN (10) Depression (11) RA Plan change Norvasc to cardiazem 1000 cc D5w Adjust BP meds K and Phos supplement as needed Monitor renal parameters and urine output avoid nephrotoxics per orders discussed with RN Left ventricular ejection fraction estimated to be 55 %. Objective Objective Last 24 Hour Vital Signs Date Time Temp Pulse Resp B/P (MAP) Pulse Ox O2 Delivery O2 Flow Rate FiO2 09/17/17 08:55 126 32 90 09/17/17 08:15 131 131/68 09/17/17 08:00 90 09/17/17 08:00 97.9 124 32 136/67 99 Mechanical Ventilator 90 97.9 09/17/17 07:28 132 27 90 09/17/17 07:00 90 09/17/17 07:00 133 29 139/67 94 Mechanical Ventilator 90 09/17/17 06:19 90 09/17/17 06:00 100 09/17/17 06:00 133 29 145/63 94 Mechanical Ventilator 100 09/17/17 05:27 135 26 100 09/17/17 05:00 133 29 137/65 95 Mechanical Ventilator 80 09/17/17 04:25 100 09/17/17 04:00 125 09/17/17 04:00 98.1 127 29 128/60 93 Mechanical Ventilator 80 98.1 09/17/17 04:00 80 09/17/17 03:11 121 25 80 09/17/17 03:00 124 29 138/64 93 Mechanical Ventilator 80 09/17/17 02:00 116 30 126/61 93 Mechanical Ventilator 80 09/17/17 01:00 131 30 141/58 95 Mechanical Ventilator 80 09/17/17 00:59 126 29 80 09/17/17 00:00 138 09/17/17 00:00 80 09/17/17 00:00 99.8 135 30 135/54 97 Mechanical Ventilator 80 99.8 09/16/17 23:21 130 33 60 09/16/17 23:17 Mechanical Ventilator 09/16/17 23:16 130 Mechanical Ventilator 09/16/17 23:00 133 30 142/56 94 Mechanical Ventilator 60 09/16/17 22:00 121 30 120/53 94 Mechanical Ventilator 60 09/16/17 21:00 128 31 112/48 94 Mechanical Ventilator 60 09/16/17 20:43 120 39 60 09/16/17 20:00 98.8 125 28 121/48 94 Mechanical Ventilator 60 98.8 09/16/17 20:00 60 09/16/17 20:00 121 09/16/17 19:30 122 30 60 09/16/17 19:00 120 31 152/61 93 Mechanical Ventilator 60 09/16/17 18:00 98.7 121 32 146/57 93 Mechanical Ventilator 60 98.7 09/16/17 17:00 99.2 119 29 130/45 93 Mechanical Ventilator 60 99.2 09/16/17 16:46 112 29 50 09/16/17 16:00 98.7 109 28 131/47 93 Mechanical Ventilator 60 98.7 09/16/17 16:00 116 09/16/17 16:00 60 09/16/17 15:35 113 29 93 Mechanical Ventilator 50 09/16/17 15:35 50 09/16/17 15:25 116 26 100 Mechanical Ventilator 60 09/16/17 15:25 116 26 60 09/16/17 15:00 98.1 113 22 138/52 100 Mechanical Ventilator 60 98.1 09/16/17 14:00 98.7 116 29 135/57 100 Mechanical Ventilator 60 98.7 09/16/17 13:16 117 26 60 09/16/17 13:00 60 09/16/17 13:00 99.2 115 27 125/56 100 Mechanical Ventilator 60 99.2 09/16/17 12:00 70 09/16/17 12:00 98.1 112 25 122/55 100 Mechanical Ventilator 70 98.1 09/16/17 12:00 117 09/16/17 11:10 98.3 116 26 117/54 100 Mechanical Ventilator 90 98.3 09/16/17 11:04 114 22 80 09/16/17 11:00 70 09/16/17 10:00 80 09/16/17 10:00 99.0 117 28 145/50 100 Mechanical Ventilator 90 99.0 Intake and Output 09/16/17 09/17/17 19:00 07:00 Intake Total 1568.1 ml 1000.000 ml Output Total 795 ml 620 ml Balance 773.1 ml 380.000 ml Intake Free Water 50 ml IV Total 928.1 ml 410.000 ml Tube Feeding 540 ml 540 ml Other 100 ml Output Urine Total 795 ml 620 ml # Bowel Movements 1 3 Laboratory Tests 09/16/17 12:30: C-Reactive Protein, Quantitative > 70.0H, Vancomycin Level Trough 12.0 09/17/17 06:00: White Blood Count 22.3*H, Red Blood Count 3.04L, Hemoglobin 9.8L, Hematocrit 30.1L, Mean Corpuscular Volume 99, Mean Corpuscular Hemoglobin 32.3H, Mean Corpuscular Hemoglobin Concent 32.7, Red Cell Distribution Width 15.6H, Platelet Count 32#L, Mean Platelet Volume 9.5, Neutrophils (%) (Auto) , Lymphocytes (%) (Auto) , Monocytes (%) (Auto) , Eosinophils (%) (Auto) , Basophils (%) (Auto) , Differential Total Cells Counted 100, Neutrophils % ( Manual) 85H, Lymphocytes % (Manual) 3L, Monocytes % (Manual) 12H, Eosinophils % (Manual) 0, Basophils % (Manual) 0, Band Neutrophils 0, Platelet Estimate DecreasedL, Platelet Morphology Normal, Hypochromasia 2+, Anisocytosis 1+, Spherocytes 1+, Sodium Level 153H, Potassium Level 3.6, Chloride Level 120H, Carbon Dioxide Level 18L, Anion Gap 15, Blood Urea Nitrogen 37H, Creatinine 0.8 , Estimat Glomerular Filtration Rate , Glucose Level 220H, Hemoglobin A1c 5.4, Uric Acid 3.5, Calcium Level 7.5L, Phosphorus Level 2.6, Magnesium Level 2.0, Total Bilirubin 0.9, Gamma Glutamyl Transpeptidase 387H, Aspartate Amino Transf (AST/SGOT) 74H, Alanine Aminotransferase (ALT/SGPT) 74, Alkaline Phosphatase 422H, Total Creatine Kinase 51, Troponin I 0.132H, Pro-B-Type Natriuretic Peptide 28144G, Total Protein 5.9L, Albumin 1.3L, Globulin 4.6, Albumin/ Globulin Ratio 0.3L, Triglycerides Level 87, Cholesterol Level 127, LDL Cholesterol 51, HDL Cholesterol 23L, Cholesterol/HDL Ratio 5.5H, Thyroid Stimulating Hormone (TSH) 0.802 09/17/17 09:10: Arterial Blood pH 7.315L, Arterial Blood Partial Pressure CO2 39.6, Arterial Blood Partial Pressure O2 76.6, Arterial Blood HCO3 19.7L, Arterial Blood Oxygen Saturation 94.3, Arterial Blood Base Excess -6.0, Luis A Test Positive Height (Feet): 5 Height (Inches): 0.00 Weight (Pounds): 96 General Appearance: other - nad EENT: other - on vent Cardiovascular: tachycardia Respiratory/Chest: decreased breath sounds Abdomen: distended YAEL HANSEN Sep 17, 2017 09:54
--- NOTE | 2017-09-17 11:14 | Diagnostic Imaging Report ---
Indication: Dyspnea Comparison: 09/16/2017 A single view chest radiograph was obtained. Findings: Fairly extensive patchy airspace disease noted bilaterally. Findings relatively stable. Tubes and lines are stable. IMPRESSION: No pattern changer and repairer the last day
--- NOTE | 2017-09-17 12:28 | Internal Med Progress Note ---
Subjective Date of Service: Sep 17, 2017 Physician Name Sina Bowens Attending Physician Jesus Barahona MD Current Medications Medications (Trade) Dose Ordered Sig/Hermes Route PRN Reason Start Time Stop Time Status Last Admin Dose Admin Acetaminophen (Tylenol) 650 mg EVERY 6 HOURS PRN NG Fever/Headache/Mild Pain 09/13/17 20:45 10/13/17 20:44 09/15/17 20:53 Clonidine HCl (Catapres Tab) 0.1 mg Q4H PRN ORAL SBP>160 UNRELIEVED BY HYDRALAZ 09/16/17 16:45 10/15/17 16:59 Dextrose 1,000 ml @ 100 mls/hr Q10H ONCE IV 09/17/17 10:00 09/17/17 19:59 09/17/17 10:19 Dextrose (Dextrose 50%) STAT PRN IV Hypoglycemia 09/13/17 15:00 10/13/17 14:59 Diltiazem HCl (Cardizem) 30 mg EVERY 8 HOURS NG 09/17/17 14:00 10/17/17 13:59 Heparin Sodium (Porcine) (Heparin 5000 units/ml) 5,000 units Q12H SUBQ 09/13/17 18:00 10/13/17 17:59 Insulin Aspart (NovoLOG) EVERY 6 HOURS SUBQ 09/17/17 12:00 10/17/17 11:59 Iron Sucrose 100 mg/Sodium Chloride 60 ml @ 240 mls/hr BEDTIME IV 09/13/17 21:00 09/17/17 21:14 09/16/17 21:26 Levofloxacin 100 ml @ 100 mls/hr Q24H IVPB 09/12/17 20:00 09/19/17 19:59 09/16/17 20:13 Lorazepam (Ativan 2mg/ml 1ml) 2 mg Q2HR PRN IV For Anxiety 09/12/17 22:00 09/19/17 21:59 09/15/17 11:22 Morphine Sulfate (Morphine Sulfate) 4 mg Q4H PRN IVP For Pain 09/12/17 10:45 09/19/17 10:44 09/15/17 15:41 Oseltamivir Phosphate (Tamiflu) 30 mg BID ORAL 09/12/17 20:00 09/17/17 19:59 09/17/17 08:15 Pantoprazole (Protonix) 40 mg DAILY IV 09/13/17 09:00 10/13/17 08:59 09/17/17 08:15 Polyethylene Glycol (Miralax) 17 gm BEDTIME ORAL 09/14/17 21:00 10/14/17 20:59 09/14/17 21:21 Vancomycin HCl (Vanco rx to dose) 1 ea DAILY PRN MISC Per rx protocol 09/11/17 23:15 10/11/17 23:14 Vancomycin/Sodium Chloride 250 ml @ 166.667 mls/hr Q12HR@0100,1300 IVPB 09/17/17 01:00 09/22/17 00:59 09/17/17 01:09 Allergies: Coded Allergies: No Known Allergies (Verified , 11/18/08) ROS Limited/Unobtainable: Yes Subjective 76 YO F admitted with Shortness of breath, now respiratory failure. Intubated and sedated. Cover for Internal Med-Dr. Barahona. ICU Objective Last Vital Signs Date Time Temp Pulse Resp B/P (MAP) Pulse Ox O2 Delivery O2 Flow Rate FiO2 09/17/17 11:29 131 29 90 09/17/17 11:00 129/56 100 Mechanical Ventilator 09/17/17 08:00 97.9 97.9 09/12/17 00:35 15.0 Laboratory Tests Test 09/16/17 12:30 09/17/17 06:00 09/17/17 09:10 C-Reactive Protein, Quantitative > 70.0 mg/dL (0.00-0.90) H Vancomycin Level Trough 12.0 ug/mL (5.0-12.0) White Blood Count 22.3 K/UL (4.8-10.8) *H Red Blood Count 3.04 M/UL (4.20-5.40) L Hemoglobin 9.8 G/DL (12.0-16.0) L Hematocrit 30.1 % (37.0-47.0) L Mean Corpuscular Volume 99 FL (80-99) Mean Corpuscular Hemoglobin 32.3 PG (27.0-31.0) H Mean Corpuscular Hemoglobin Concent 32.7 G/DL (32.0-36.0) Red Cell Distribution Width 15.6 % (11.6-14.8) H Platelet Count 32 K/UL (150-450) #L Mean Platelet Volume 9.5 FL (6.5-10.1) Neutrophils (%) (Auto) % (45.0-75.0) Lymphocytes (%) (Auto) % (20.0-45.0) Monocytes (%) (Auto) % (1.0-10.0) Eosinophils (%) (Auto) % (0.0-3.0) Basophils (%) (Auto) % (0.0-2.0) Differential Total Cells Counted 100 Neutrophils % (Manual) 85 % (45-75) H Lymphocytes % (Manual) 3 % (20-45) L Monocytes % (Manual) 12 % (1-10) H Eosinophils % (Manual) 0 % (0-3) Basophils % (Manual) 0 % (0-2) Band Neutrophils 0 % (0-8) Platelet Estimate Decreased L Platelet Morphology Normal Hypochromasia 2+ Anisocytosis 1+ Spherocytes 1+ Sodium Level 153 MMOL/L (136-145) H Potassium Level 3.6 MMOL/L (3.5-5.1) Chloride Level 120 MMOL/L (98-107) H Carbon Dioxide Level 18 MMOL/L (21-32) L Anion Gap 15 mmol/L (5-15) Blood Urea Nitrogen 37 mg/dL (7-18) H Creatinine 0.8 MG/DL (0.55-1.30) Estimat Glomerular Filtration Rate mL/min (>60) Glucose Level 220 MG/DL (74-106) H Hemoglobin A1c 5.4 % (4.3-6.0) Uric Acid 3.5 MG/DL (2.6-7.2) Calcium Level 7.5 MG/DL (8.5-10.1) L Phosphorus Level 2.6 MG/DL (2.5-4.9) Magnesium Level 2.0 MG/DL (1.8-2.4) Total Bilirubin 0.9 MG/DL (0.2-1.0) Gamma Glutamyl Transpeptidase 387 U/L (5-85) H Aspartate Amino Transf (AST/SGOT) 74 U/L (15-37) H Alanine Aminotransferase (ALT/SGPT) 74 U/L (12-78) Alkaline Phosphatase 422 U/L (46-116) H Total Creatine Kinase 51 U/L (26-308) Troponin I 0.132 ng/mL (0.000-0.056) Pro-B-Type Natriuretic Peptide 14370 pg/mL (0-125) H Total Protein 5.9 G/DL (6.4-8.2) L Albumin 1.3 G/DL (3.4-5.0) L Globulin 4.6 g/dL Albumin/Globulin Ratio 0.3 (1.0-2.7) L Triglycerides Level 87 MG/DL (30-150) Cholesterol Level 127 MG/DL (< 200) LDL Cholesterol 51 mg/dL (<100) HDL Cholesterol 23 MG/DL (40-60) L Cholesterol/HDL Ratio 5.5 (3.3-4.4) H Thyroid Stimulating Hormone (TSH) 0.802 uiU/mL (0.358-3.740) Arterial Blood pH 7.315 (7.350-7.450) Arterial Blood Partial Pressure CO2 39.6 mmHg (35.0-45.0) Arterial Blood Partial Pressure O2 76.6 mmHg (75.0-100.0) Arterial Blood HCO3 19.7 mmol/L (22.0-26.0) L Arterial Blood Oxygen Saturation 94.3 % (92.0-98.0) Arterial Blood Base Excess -6.0 Luis A Test Positive Intake and Output 09/16/17 09/17/17 19:00 07:00 Intake Total 1568.1 ml 1000.000 ml Output Total 795 ml 620 ml Balance 773.1 ml 380.000 ml Intake Free Water 50 ml IV Total 928.1 ml 410.000 ml Tube Feeding 540 ml 540 ml Other 100 ml Output Urine Total 795 ml 620 ml # Bowel Movements 1 3 Objective General Appearance: lethargic, thin EENT: normal ENT inspection Neck: non-tender, normal alignment, supple Cardiovascular: normal peripheral pulses, normal rate, regular rhythm, no gallop/murmur, no JVD Respiratory/Chest: Mechanical vent; respiratory distress, crackles/rales, rhonchi - bilaterally, expiratory wheezing Abdomen: normal bowel sounds, non tender, soft, no organomegaly, no mass Skin: normal pigmentation, warm/dry Assessment/Plan Problem List: (1) HTN (hypertension) Assessment & Plan: Currently hypotensive. (2) Arthritis, rheumatoid (3) Parkinsons disease (4) Aplastic anemia (5) GERD (gastroesophageal reflux disease) (6) Respiratory failure Assessment & Plan: Cont vent per pulmonary (7) Pneumonia (8) Dyspnea (9) Sepsis Assessment & Plan: Blood culture neg. Continue vanco and levaquin per ID (10) ARDS (adult respiratory distress syndrome) Assessment & Plan: See pulmonary note (11) UTI (urinary tract infection) Assessment & Plan: E.Coli. Continue levaquin (12) Anemia Assessment & Plan: S/P Transfusion 2 units PRBC Status: not improved SINA BOWENS Sep 17, 2017 12:28
[2017-09-17] MEDS: dilTIAZem HCl 30mg tab NG SCH ×2 (14:10→22:15)
[2017-09-17] MEDS ORDERED: NS 275ml ONE (17:17)
--- NOTE | 2017-09-17 18:16 | Cardiac Electrophysiology PN ---
Assessment/Plan Assessment/Plan 1. Respiratory failure, due to underlying acute respiratory distress syndrome versus pneumonia,. Intubated on the vent. Already ruled out for myocardial infarction. 2. Left bundle-branch block. No evidence of advanced heart block. 3. HTN and diastolic dysfunction.Change Norvasc to Cardizem. Add Lasix 20 iv bid 4. Hyponatremia. 5. Pneumonia and sepsis on IV antibiotics by Dr. Hunter. 6. History of psychiatric disorder. 7. Anasarca. Add Missy MARTINEZ RN Subjective Subjective Intubated on Vent in ICU unresponsive. Sinus tach but no SVT or VT. Still on 85 % Fio2 Objective Last 24 Hour Vital Signs Date Time Temp Pulse Resp B/P (MAP) Pulse Ox O2 Delivery O2 Flow Rate FiO2 09/17/17 18:00 113 35 126/51 98 Mechanical Ventilator 85 09/17/17 17:24 115 28 85 09/17/17 17:00 109 30 119/59 100 Mechanical Ventilator 85 09/17/17 16:00 85 09/17/17 16:00 112 09/17/17 16:00 98.4 114 31 114/49 99 Mechanical Ventilator 85 98.4 09/17/17 15:28 109 27 85 09/17/17 15:00 114 30 132/59 100 Mechanical Ventilator 85 09/17/17 14:10 121 139/60 09/17/17 14:00 122 32 139/60 100 Mechanical Ventilator 90 09/17/17 13:22 126 33 85 09/17/17 13:00 126 31 131/52 100 Mechanical Ventilator 90 09/17/17 12:00 98.7 128 31 127/55 100 Mechanical Ventilator 90 98.7 09/17/17 12:00 90 09/17/17 12:00 131 09/17/17 11:29 131 29 90 09/17/17 11:00 128 27 129/56 100 Mechanical Ventilator 90 09/17/17 10:00 133 31 141/125 100 Mechanical Ventilator 90 09/17/17 09:00 122 27 123/65 100 Mechanical Ventilator 90 09/17/17 08:55 126 32 90 09/17/17 08:15 131 131/68 09/17/17 08:00 129 09/17/17 08:00 90 09/17/17 08:00 97.9 124 32 136/67 99 Mechanical Ventilator 90 97.9 09/17/17 07:28 132 27 90 09/17/17 07:00 90 09/17/17 07:00 133 29 139/67 94 Mechanical Ventilator 90 09/17/17 06:19 90 09/17/17 06:00 100 09/17/17 06:00 133 29 145/63 94 Mechanical Ventilator 100 09/17/17 05:27 135 26 100 09/17/17 05:00 133 29 137/65 95 Mechanical Ventilator 80 09/17/17 04:25 100 09/17/17 04:00 125 09/17/17 04:00 98.1 127 29 128/60 93 Mechanical Ventilator 80 98.1 09/17/17 04:00 80 09/17/17 03:11 121 25 80 09/17/17 03:00 124 29 138/64 93 Mechanical Ventilator 80 09/17/17 02:00 116 30 126/61 93 Mechanical Ventilator 80 09/17/17 01:00 131 30 141/58 95 Mechanical Ventilator 80 09/17/17 00:59 126 29 80 09/17/17 00:00 138 09/17/17 00:00 80 09/17/17 00:00 99.8 135 30 135/54 97 Mechanical Ventilator 80 99.8 09/16/17 23:21 130 33 60 09/16/17 23:17 Mechanical Ventilator 09/16/17 23:16 130 Mechanical Ventilator 09/16/17 23:00 133 30 142/56 94 Mechanical Ventilator 60 09/16/17 22:00 121 30 120/53 94 Mechanical Ventilator 60 09/16/17 21:00 128 31 112/48 94 Mechanical Ventilator 60 09/16/17 20:43 120 39 60 09/16/17 20:00 98.8 125 28 121/48 94 Mechanical Ventilator 60 98.8 09/16/17 20:00 60 09/16/17 20:00 121 09/16/17 19:30 122 30 60 09/16/17 19:00 120 31 152/61 93 Mechanical Ventilator 60 Intake and Output 09/16/17 09/17/17 19:00 07:00 Intake Total 1568.1 ml 1000.000 ml Output Total 795 ml 620 ml Balance 773.1 ml 380.000 ml Intake Free Water 50 ml IV Total 928.1 ml 410.000 ml Tube Feeding 540 ml 540 ml Other 100 ml Output Urine Total 795 ml 620 ml # Bowel Movements 1 3 Laboratory Tests Test 09/17/17 06:00 09/17/17 09:10 White Blood Count 22.3 K/UL (4.8-10.8) *H Red Blood Count 3.04 M/UL (4.20-5.40) L Hemoglobin 9.8 G/DL (12.0-16.0) L Hematocrit 30.1 % (37.0-47.0) L Mean Corpuscular Volume 99 FL (80-99) Mean Corpuscular Hemoglobin 32.3 PG (27.0-31.0) H Mean Corpuscular Hemoglobin Concent 32.7 G/DL (32.0-36.0) Red Cell Distribution Width 15.6 % (11.6-14.8) H Platelet Count 32 K/UL (150-450) #L Mean Platelet Volume 9.5 FL (6.5-10.1) Neutrophils (%) (Auto) % (45.0-75.0) Lymphocytes (%) (Auto) % (20.0-45.0) Monocytes (%) (Auto) % (1.0-10.0) Eosinophils (%) (Auto) % (0.0-3.0) Basophils (%) (Auto) % (0.0-2.0) Differential Total Cells Counted 100 Neutrophils % (Manual) 85 % (45-75) H Lymphocytes % (Manual) 3 % (20-45) L Monocytes % (Manual) 12 % (1-10) H Eosinophils % (Manual) 0 % (0-3) Basophils % (Manual) 0 % (0-2) Band Neutrophils 0 % (0-8) Platelet Estimate Decreased L Platelet Morphology Normal Hypochromasia 2+ Anisocytosis 1+ Spherocytes 1+ Sodium Level 153 MMOL/L (136-145) H Potassium Level 3.6 MMOL/L (3.5-5.1) Chloride Level 120 MMOL/L (98-107) H Carbon Dioxide Level 18 MMOL/L (21-32) L Anion Gap 15 mmol/L (5-15) Blood Urea Nitrogen 37 mg/dL (7-18) H Creatinine 0.8 MG/DL (0.55-1.30) Estimat Glomerular Filtration Rate mL/min (>60) Glucose Level 220 MG/DL (74-106) H Hemoglobin A1c 5.4 % (4.3-6.0) Uric Acid 3.5 MG/DL (2.6-7.2) Calcium Level 7.5 MG/DL (8.5-10.1) L Phosphorus Level 2.6 MG/DL (2.5-4.9) Magnesium Level 2.0 MG/DL (1.8-2.4) Total Bilirubin 0.9 MG/DL (0.2-1.0) Gamma Glutamyl Transpeptidase 387 U/L (5-85) H Aspartate Amino Transf (AST/SGOT) 74 U/L (15-37) H Alanine Aminotransferase (ALT/SGPT) 74 U/L (12-78) Alkaline Phosphatase 422 U/L (46-116) H Total Creatine Kinase 51 U/L (26-308) Troponin I 0.132 ng/mL (0.000-0.056) Pro-B-Type Natriuretic Peptide 10987 pg/mL (0-125) H Total Protein 5.9 G/DL (6.4-8.2) L Albumin 1.3 G/DL (3.4-5.0) L Globulin 4.6 g/dL Albumin/Globulin Ratio 0.3 (1.0-2.7) L Triglycerides Level 87 MG/DL (30-150) Cholesterol Level 127 MG/DL (< 200) LDL Cholesterol 51 mg/dL (<100) HDL Cholesterol 23 MG/DL (40-60) L Cholesterol/HDL Ratio 5.5 (3.3-4.4) H Thyroid Stimulating Hormone (TSH) 0.802 uiU/mL (0.358-3.740) Arterial Blood pH 7.315 (7.350-7.450) Arterial Blood Partial Pressure CO2 39.6 mmHg (35.0-45.0) Arterial Blood Partial Pressure O2 76.6 mmHg (75.0-100.0) Arterial Blood HCO3 19.7 mmol/L (22.0-26.0) L Arterial Blood Oxygen Saturation 94.3 % (92.0-98.0) Arterial Blood Base Excess -6.0 Luis A Test Positive Objective HEAD AND NECK: No JVD. Orally intubated. LUNGS: Coarse rhonchi bilaterally, is on BiPAP. CARDIOVASCULAR: Regular S1 and S2. Not tachycardic. ABDOMEN: Soft. EXTREMITIES: 1+ pitting edema. ROLF OLIVIA Sep 17, 2017 18:16
--- NOTE | 2017-09-17 18:37 | Infectious Diseases Prog Note ---
Assessment/Plan Assessment/Plan ASSESSMENT: The patient is a 76-year-old female w Fever, low grade Leukocytosis improving Community-acquired vs healthcare-associated pneumonia (the patient has been recently hospitalized in [facility]). Probable influenza despite of negative influenza screening test. Abnormal liver function tests, improving rule out biliary disease Hep panel : neg Probable UCx : E coli Chest x-ray, Fairly extensive patchy airspace disease noted bilaterally. HTN GERD History of auditory hallucination. Depression. Anemia. Rheumatoid arthritis. History of gastritis. PLAN: continue the patient on vancomycin and Levaquin and Tamiflu d# - Monitor CBC. Monitor BMP. Monitor chest x-ray. Ultrasound of the abdomen. Subjective Allergies: Coded Allergies: No Known Allergies (Verified , 11/18/08) Subjective afebrile Objective Vital Signs Last 24 Hour Vital Signs Date Time Temp Pulse Resp B/P (MAP) Pulse Ox O2 Delivery O2 Flow Rate FiO2 09/17/17 18:00 113 35 126/51 98 Mechanical Ventilator 85 09/17/17 17:24 115 28 85 09/17/17 17:00 109 30 119/59 100 Mechanical Ventilator 85 09/17/17 16:00 85 09/17/17 16:00 112 09/17/17 16:00 98.4 114 31 114/49 99 Mechanical Ventilator 85 98.4 09/17/17 15:28 109 27 85 09/17/17 15:00 114 30 132/59 100 Mechanical Ventilator 85 09/17/17 14:10 121 139/60 09/17/17 14:00 122 32 139/60 100 Mechanical Ventilator 90 09/17/17 13:22 126 33 85 09/17/17 13:00 126 31 131/52 100 Mechanical Ventilator 90 09/17/17 12:00 98.7 128 31 127/55 100 Mechanical Ventilator 90 98.7 09/17/17 12:00 90 09/17/17 12:00 131 09/17/17 11:29 131 29 90 09/17/17 11:00 128 27 129/56 100 Mechanical Ventilator 90 09/17/17 10:00 133 31 141/125 100 Mechanical Ventilator 90 09/17/17 09:00 122 27 123/65 100 Mechanical Ventilator 90 09/17/17 08:55 126 32 90 09/17/17 08:15 131 131/68 09/17/17 08:00 129 3/7/18 08:00 90 09/17/17 08:00 97.9 124 32 136/67 99 Mechanical Ventilator 90 97.9 09/17/17 07:28 132 27 90 09/17/17 07:00 90 09/17/17 07:00 133 29 139/67 94 Mechanical Ventilator 90 09/17/17 06:19 90 09/17/17 06:00 100 09/17/17 06:00 133 29 145/63 94 Mechanical Ventilator 100 09/17/17 05:27 135 26 100 09/17/17 05:00 133 29 137/65 95 Mechanical Ventilator 80 09/17/17 04:25 100 09/17/17 04:00 125 09/17/17 04:00 98.1 127 29 128/60 93 Mechanical Ventilator 80 98.1 09/17/17 04:00 80 09/17/17 03:11 121 25 80 09/17/17 03:00 124 29 138/64 93 Mechanical Ventilator 80 09/17/17 02:00 116 30 126/61 93 Mechanical Ventilator 80 09/17/17 01:00 131 30 141/58 95 Mechanical Ventilator 80 09/17/17 00:59 126 29 80 09/17/17 00:00 138 09/17/17 00:00 80 09/17/17 00:00 99.8 135 30 135/54 97 Mechanical Ventilator 80 99.8 09/16/17 23:21 130 33 60 09/16/17 23:17 Mechanical Ventilator 09/16/17 23:16 130 Mechanical Ventilator 09/16/17 23:00 133 30 142/56 94 Mechanical Ventilator 60 09/16/17 22:00 121 30 120/53 94 Mechanical Ventilator 60 09/16/17 21:00 128 31 112/48 94 Mechanical Ventilator 60 09/16/17 20:43 120 39 60 09/16/17 20:00 98.8 125 28 121/48 94 Mechanical Ventilator 60 98.8 09/16/17 20:00 60 09/16/17 20:00 121 09/16/17 19:30 122 30 60 09/16/17 19:00 120 31 152/61 93 Mechanical Ventilator 60 Height (Feet): 5 Height (Inches): 0.00 Weight (Pounds): 96 HEENT: atraumatic Respiratory/Chest: respiratory distress Cardiovascular: regular rhythm Abdomen: no organomegaly Laboratory Tests Test 09/17/17 06:00 09/17/17 09:10 White Blood Count 22.3 K/UL (4.8-10.8) *H Red Blood Count 3.04 M/UL (4.20-5.40) L Hemoglobin 9.8 G/DL (12.0-16.0) L Hematocrit 30.1 % (37.0-47.0) L Mean Corpuscular Volume 99 FL (80-99) Mean Corpuscular Hemoglobin 32.3 PG (27.0-31.0) H Mean Corpuscular Hemoglobin Concent 32.7 G/DL (32.0-36.0) Red Cell Distribution Width 15.6 % (11.6-14.8) H Platelet Count 32 K/UL (150-450) #L Mean Platelet Volume 9.5 FL (6.5-10.1) Neutrophils (%) (Auto) % (45.0-75.0) Lymphocytes (%) (Auto) % (20.0-45.0) Monocytes (%) (Auto) % (1.0-10.0) Eosinophils (%) (Auto) % (0.0-3.0) Basophils (%) (Auto) % (0.0-2.0) Differential Total Cells Counted 100 Neutrophils % (Manual) 85 % (45-75) H Lymphocytes % (Manual) 3 % (20-45) L Monocytes % (Manual) 12 % (1-10) H Eosinophils % (Manual) 0 % (0-3) Basophils % (Manual) 0 % (0-2) Band Neutrophils 0 % (0-8) Platelet Estimate Decreased L Platelet Morphology Normal Hypochromasia 2+ Anisocytosis 1+ Spherocytes 1+ Sodium Level 153 MMOL/L (136-145) H Potassium Level 3.6 MMOL/L (3.5-5.1) Chloride Level 120 MMOL/L (98-107) H Carbon Dioxide Level 18 MMOL/L (21-32) L Anion Gap 15 mmol/L (5-15) Blood Urea Nitrogen 37 mg/dL (7-18) H Creatinine 0.8 MG/DL (0.55-1.30) Estimat Glomerular Filtration Rate mL/min (>60) Glucose Level 220 MG/DL (74-106) H Hemoglobin A1c 5.4 % (4.3-6.0) Uric Acid 3.5 MG/DL (2.6-7.2) Calcium Level 7.5 MG/DL (8.5-10.1) L Phosphorus Level 2.6 MG/DL (2.5-4.9) Magnesium Level 2.0 MG/DL (1.8-2.4) Total Bilirubin 0.9 MG/DL (0.2-1.0) Gamma Glutamyl Transpeptidase 387 U/L (5-85) H Aspartate Amino Transf (AST/SGOT) 74 U/L (15-37) H Alanine Aminotransferase (ALT/SGPT) 74 U/L (12-78) Alkaline Phosphatase 422 U/L (46-116) H Total Creatine Kinase 51 U/L (26-308) Troponin I 0.132 ng/mL (0.000-0.056) Pro-B-Type Natriuretic Peptide 40580 pg/mL (0-125) H Total Protein 5.9 G/DL (6.4-8.2) L Albumin 1.3 G/DL (3.4-5.0) L Globulin 4.6 g/dL Albumin/Globulin Ratio 0.3 (1.0-2.7) L Triglycerides Level 87 MG/DL (30-150) Cholesterol Level 127 MG/DL (< 200) LDL Cholesterol 51 mg/dL (<100) HDL Cholesterol 23 MG/DL (40-60) L Cholesterol/HDL Ratio 5.5 (3.3-4.4) H Thyroid Stimulating Hormone (TSH) 0.802 uiU/mL (0.358-3.740) Arterial Blood pH 7.315 (7.350-7.450) Arterial Blood Partial Pressure CO2 39.6 mmHg (35.0-45.0) Arterial Blood Partial Pressure O2 76.6 mmHg (75.0-100.0) Arterial Blood HCO3 19.7 mmol/L (22.0-26.0) L Arterial Blood Oxygen Saturation 94.3 % (92.0-98.0) Arterial Blood Base Excess -6.0 Luis A Test Positive Current Medications Medications (Trade) Dose Ordered Sig/Hermes Route PRN Reason Start Time Stop Time Status Last Admin Dose Admin Acetaminophen (Tylenol) 650 mg EVERY 6 HOURS PRN NG Fever/Headache/Mild Pain 09/13/17 20:45 4/2/18 20:44 09/15/17 20:53 Clonidine HCl (Catapres Tab) 0.1 mg Q4H PRN ORAL SBP>160 UNRELIEVED BY HYDRALAZ 09/16/17 16:45 10/15/17 16:59 Dextrose 1,000 ml @ 100 mls/hr Q10H ONCE IV 09/17/17 10:00 09/17/17 19:59 09/17/17 10:19 Dextrose (Dextrose 50%) STAT PRN IV Hypoglycemia 09/13/17 15:00 10/13/17 14:59 Diltiazem HCl (Cardizem) 30 mg EVERY 8 HOURS NG 09/17/17 14:00 10/17/17 13:59 09/17/17 14:10 Furosemide (Lasix) 20 mg EVERY 12 HOURS IV 09/17/17 21:00 10/17/17 20:59 Heparin Sodium (Porcine) (Heparin 5000 units/ml) 5,000 units Q12H SUBQ 09/13/17 18:00 10/13/17 17:59 Insulin Aspart (NovoLOG) EVERY 6 HOURS SUBQ 09/17/17 12:00 10/17/17 11:59 09/17/17 18:11 Iron Sucrose 100 mg/Sodium Chloride 60 ml @ 240 mls/hr BEDTIME IV 09/13/17 21:00 09/17/17 21:14 09/16/17 21:26 Levofloxacin 100 ml @ 100 mls/hr Q24H IVPB 09/12/17 20:00 09/19/17 19:59 09/16/17 20:13 Lorazepam (Ativan 2mg/ml 1ml) 2 mg Q2HR PRN IV For Anxiety 09/12/17 22:00 09/19/17 21:59 09/15/17 11:22 Morphine Sulfate (Morphine Sulfate) 4 mg Q4H PRN IVP For Pain 09/12/17 10:45 09/19/17 10:44 09/15/17 15:41 Pantoprazole (Protonix) 40 mg DAILY IV 09/13/17 09:00 10/13/17 08:59 09/17/17 08:15 Polyethylene Glycol (Miralax) 17 gm BEDTIME ORAL 09/14/17 21:00 10/14/17 20:59 09/14/17 21:21 Vancomycin HCl (Vanco rx to dose) 1 ea DAILY PRN MISC Per rx protocol 09/11/17 23:15 10/11/17 23:14 Vancomycin/Sodium Chloride 250 ml @ 166.667 mls/hr Q12HR@0100,1300 IVPB 09/17/17 01:00 09/22/17 00:59 09/17/17 14:10 DEBBIE MURRY M.D. Sep 17, 2017 18:37
--- NOTE | 2017-09-17 19:23 | General Progress Note ---
Assessment/Plan Problem List: (1) Aspiration pneumonia ICD Codes: J69.0 - Pneumonitis due to inhalation of food and vomit SNOMED: 416056426 (2) Protein-calorie malnutrition, severe ICD Codes: E43 - Unspecified severe protein-calorie malnutrition SNOMED: 513619844 (3) Diabetes mellitus ICD Codes: E11.9 - Type 2 diabetes mellitus without complications SNOMED: 86455710 (4) ARDS (adult respiratory distress syndrome) ICD Codes: J80 - Acute respiratory distress syndrome SNOMED: 37012081 (5) Anemia ICD Codes: D64.9 - Anemia, unspecified SNOMED: 494745755 (6) Pulmonary edema ICD Codes: J81.1 - Chronic pulmonary edema SNOMED: 42018981 (7) UTI (urinary tract infection) ICD Codes: N39.0 - Urinary tract infection, site not specified SNOMED: 80627684, 946023047 (8) Transaminitis ICD Codes: R74.0 - Nonspecific elevation of levels of transaminase and lactic acid dehydrogenase [LDH] SNOMED: 841196396, 197218174 (9) Respiratory failure ICD Codes: J96.90 - Respiratory failure, unspecified, unspecified whether with hypoxia or hypercapnia SNOMED: 222189050 (10) Arthritis, rheumatoid ICD Codes: M06.9 - Rheumatoid arthritis, unspecified SNOMED: 56179568 (11) Dyspnea ICD Codes: R06.00 - Dyspnea, unspecified SNOMED: 185335132 (12) Parkinsons disease ICD Codes: G20 - Parkinson's disease SNOMED: 94281093 (13) Sepsis ICD Codes: A41.9 - Sepsis, unspecified organism SNOMED: 84554360 (14) GERD (gastroesophageal reflux disease) ICD Codes: K21.9 - Gastro-esophageal reflux disease without esophagitis SNOMED: 190852877 (15) Aplastic anemia ICD Codes: D61.9 - Aplastic anemia, unspecified SNOMED: 806616937 (16) Pneumonia ICD Codes: J18.9 - Pneumonia, unspecified organism SNOMED: 521477460 (17) HTN (hypertension) ICD Codes: I10 - Essential (primary) hypertension SNOMED: 87325264 Status: stable Subjective Date patient seen: Sep 17, 2017 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: Reports: anxiety, depressed Allergies: Coded Allergies: No Known Allergies (Verified , 11/18/08) Objective Last 24 Hour Vital Signs Date Time Temp Pulse Resp B/P (MAP) Pulse Ox O2 Delivery O2 Flow Rate FiO2 09/17/17 19:10 112 32 80 09/17/17 19:00 112 31 125/61 100 Mechanical Ventilator 85 09/17/17 18:00 113 35 126/51 98 Mechanical Ventilator 85 09/17/17 17:24 115 28 85 09/17/17 17:00 109 30 119/59 100 Mechanical Ventilator 85 09/17/17 16:00 85 09/17/17 16:00 112 09/17/17 16:00 98.4 114 31 114/49 99 Mechanical Ventilator 85 98.4 09/17/17 15:28 109 27 85 09/17/17 15:00 114 30 132/59 100 Mechanical Ventilator 85 09/17/17 14:10 121 139/60 09/17/17 14:00 122 32 139/60 100 Mechanical Ventilator 90 09/17/17 13:22 126 33 85 09/17/17 13:00 126 31 131/52 100 Mechanical Ventilator 90 09/17/17 12:00 98.7 128 31 127/55 100 Mechanical Ventilator 90 98.7 09/17/17 12:00 90 09/17/17 12:00 131 09/17/17 11:29 131 29 90 09/17/17 11:00 128 27 129/56 100 Mechanical Ventilator 90 09/17/17 10:00 133 31 141/125 100 Mechanical Ventilator 90 09/17/17 09:00 122 27 123/65 100 Mechanical Ventilator 90 09/17/17 08:55 126 32 90 09/17/17 08:15 131 131/68 09/17/17 08:00 129 09/17/17 08:00 90 09/17/17 08:00 97.9 124 32 136/67 99 Mechanical Ventilator 90 97.9 09/17/17 07:28 132 27 90 09/17/17 07:00 90 09/17/17 07:00 133 29 139/67 94 Mechanical Ventilator 90 09/17/17 06:19 90 09/17/17 06:00 100 09/17/17 06:00 133 29 145/63 94 Mechanical Ventilator 100 09/17/17 05:27 135 26 100 09/17/17 05:00 133 29 137/65 95 Mechanical Ventilator 80 09/17/17 04:25 100 3/7/18 04:00 125 09/17/17 04:00 98.1 127 29 128/60 93 Mechanical Ventilator 80 98.1 09/17/17 04:00 80 09/17/17 03:11 121 25 80 09/17/17 03:00 124 29 138/64 93 Mechanical Ventilator 80 09/17/17 02:00 116 30 126/61 93 Mechanical Ventilator 80 09/17/17 01:00 131 30 141/58 95 Mechanical Ventilator 80 09/17/17 00:59 126 29 80 09/17/17 00:00 138 09/17/17 00:00 80 09/17/17 00:00 99.8 135 30 135/54 97 Mechanical Ventilator 80 99.8 09/16/17 23:21 130 33 60 09/16/17 23:17 Mechanical Ventilator 09/16/17 23:16 130 Mechanical Ventilator 09/16/17 23:00 133 30 142/56 94 Mechanical Ventilator 60 09/16/17 22:00 121 30 120/53 94 Mechanical Ventilator 60 09/16/17 21:00 128 31 112/48 94 Mechanical Ventilator 60 09/16/17 20:43 120 39 60 09/16/17 20:00 98.8 125 28 121/48 94 Mechanical Ventilator 60 98.8 09/16/17 20:00 60 09/16/17 20:00 121 09/16/17 19:30 122 30 60 Intake and Output 09/16/17 09/17/17 19:00 07:00 Intake Total 1568.1 ml 1000.000 ml Output Total 795 ml 620 ml Balance 773.1 ml 380.000 ml Intake Free Water 50 ml IV Total 928.1 ml 410.000 ml Tube Feeding 540 ml 540 ml Other 100 ml Output Urine Total 795 ml 620 ml # Bowel Movements 1 3 Laboratory Tests 09/17/17 06:00: White Blood Count 22.3*H, Red Blood Count 3.04L, Hemoglobin 9.8L, Hematocrit 30.1L, Mean Corpuscular Volume 99, Mean Corpuscular Hemoglobin 32.3H, Mean Corpuscular Hemoglobin Concent 32.7, Red Cell Distribution Width 15.6H, Platelet Count 32#L, Mean Platelet Volume 9.5, Neutrophils (%) (Auto) , Lymphocytes (%) (Auto) , Monocytes (%) (Auto) , Eosinophils (%) (Auto) , Basophils (%) (Auto) , Differential Total Cells Counted 100, Neutrophils % ( Manual) 85H, Lymphocytes % (Manual) 3L, Monocytes % (Manual) 12H, Eosinophils % (Manual) 0, Basophils % (Manual) 0, Band Neutrophils 0, Platelet Estimate DecreasedL, Platelet Morphology Normal, Hypochromasia 2+, Anisocytosis 1+, Spherocytes 1+, Sodium Level 153H, Potassium Level 3.6, Chloride Level 120H, Carbon Dioxide Level 18L, Anion Gap 15, Blood Urea Nitrogen 37H, Creatinine 0.8 , Estimat Glomerular Filtration Rate , Glucose Level 220H, Hemoglobin A1c 5.4, Uric Acid 3.5, Calcium Level 7.5L, Phosphorus Level 2.6, Magnesium Level 2.0, Total Bilirubin 0.9, Gamma Glutamyl Transpeptidase 387H, Aspartate Amino Transf (AST/SGOT) 74H, Alanine Aminotransferase (ALT/SGPT) 74, Alkaline Phosphatase 422H, Total Creatine Kinase 51, Troponin I 0.132H, Pro-B-Type Natriuretic Peptide 57398D, Total Protein 5.9L, Albumin 1.3L, Globulin 4.6, Albumin/ Globulin Ratio 0.3L, Triglycerides Level 87, Cholesterol Level 127, LDL Cholesterol 51, HDL Cholesterol 23L, Cholesterol/HDL Ratio 5.5H, Thyroid Stimulating Hormone (TSH) 0.802 09/17/17 09:10: Arterial Blood pH 7.315L, Arterial Blood Partial Pressure CO2 39.6, Arterial Blood Partial Pressure O2 76.6, Arterial Blood HCO3 19.7L, Arterial Blood Oxygen Saturation 94.3, Arterial Blood Base Excess -6.0, Luis A Test Positive Height (Feet): 5 Height (Inches): 0.00 Weight (Pounds): 96 General Appearance: no apparent distress, confused, agitated Dary Nixon M.D. Sep 17, 2017 19:23
[2017-09-17] MEDS: Miralax 17gm pkt ORAL SCH (21:00)
--- NOTE | 2017-09-17 21:17 | General Progress Note ---
Assessment/Plan Assessment/Plan Assessment - Resp failure / ARDS - Abnormal LFT with rapid resolution - Anemia with OB (+) stools - Malnutrition Recommendations - NGT feeds - check abd u/s - pending - Elevate HOB - Vent care - Monitor H&H - PPI Subjective Allergies: Coded Allergies: No Known Allergies (Verified , 11/18/08) Subjective on Vent in ICU poorly communicative feeds d/w staffing manager Objective Last 24 Hour Vital Signs Date Time Temp Pulse Resp B/P (MAP) Pulse Ox O2 Delivery O2 Flow Rate FiO2 09/17/17 21:12 116 30 75 09/17/17 20:00 96.3 115 31 120/52 100 Mechanical Ventilator 80 96.3 09/17/17 20:00 80 09/17/17 19:10 112 32 80 09/17/17 19:00 112 31 125/61 100 Mechanical Ventilator 85 09/17/17 18:00 113 35 126/51 98 Mechanical Ventilator 85 09/17/17 17:24 115 28 85 09/17/17 17:00 109 30 119/59 100 Mechanical Ventilator 85 09/17/17 16:00 85 09/17/17 16:00 112 09/17/17 16:00 98.4 114 31 114/49 99 Mechanical Ventilator 85 98.4 09/17/17 15:28 109 27 85 09/17/17 15:00 114 30 132/59 100 Mechanical Ventilator 85 09/17/17 14:10 121 139/60 09/17/17 14:00 122 32 139/60 100 Mechanical Ventilator 90 09/17/17 13:22 126 33 85 09/17/17 13:00 126 31 131/52 100 Mechanical Ventilator 90 09/17/17 12:00 98.7 128 31 127/55 100 Mechanical Ventilator 90 98.7 09/17/17 12:00 90 09/17/17 12:00 131 09/17/17 11:29 131 29 90 09/17/17 11:00 128 27 129/56 100 Mechanical Ventilator 90 09/17/17 10:00 133 31 141/125 100 Mechanical Ventilator 90 09/17/17 09:00 122 27 123/65 100 Mechanical Ventilator 90 09/17/17 08:55 126 32 90 09/17/17 08:15 131 131/68 09/17/17 08:00 129 09/17/17 08:00 90 09/17/17 08:00 97.9 124 32 136/67 99 Mechanical Ventilator 90 97.9 09/17/17 07:28 132 27 90 09/17/17 07:00 90 09/17/17 07:00 133 29 139/67 94 Mechanical Ventilator 90 09/17/17 06:19 90 09/17/17 06:00 100 09/17/17 06:00 133 29 145/63 94 Mechanical Ventilator 100 09/17/17 05:27 135 26 100 09/17/17 05:00 133 29 137/65 95 Mechanical Ventilator 80 09/17/17 04:25 100 09/17/17 04:00 125 09/17/17 04:00 98.1 127 29 128/60 93 Mechanical Ventilator 80 98.1 09/17/17 04:00 80 09/17/17 03:11 121 25 80 09/17/17 03:00 124 29 138/64 93 Mechanical Ventilator 80 09/17/17 02:00 116 30 126/61 93 Mechanical Ventilator 80 09/17/17 01:00 131 30 141/58 95 Mechanical Ventilator 80 09/17/17 00:59 126 29 80 09/17/17 00:00 138 09/17/17 00:00 80 09/17/17 00:00 99.8 135 30 135/54 97 Mechanical Ventilator 80 99.8 09/16/17 23:21 130 33 60 09/16/17 23:17 Mechanical Ventilator 09/16/17 23:16 130 Mechanical Ventilator 09/16/17 23:00 133 30 142/56 94 Mechanical Ventilator 60 09/16/17 22:00 121 30 120/53 94 Mechanical Ventilator 60 Intake and Output 09/16/17 09/17/17 19:00 07:00 Intake Total 1568.1 ml 1000.000 ml Output Total 795 ml 620 ml Balance 773.1 ml 380.000 ml Intake Free Water 50 ml IV Total 928.1 ml 410.000 ml Tube Feeding 540 ml 540 ml Other 100 ml Output Urine Total 795 ml 620 ml # Bowel Movements 1 3 Laboratory Tests 09/17/17 06:00: White Blood Count 22.3*H, Red Blood Count 3.04L, Hemoglobin 9.8L, Hematocrit 30.1L, Mean Corpuscular Volume 99, Mean Corpuscular Hemoglobin 32.3H, Mean Corpuscular Hemoglobin Concent 32.7, Red Cell Distribution Width 15.6H, Platelet Count 32#L, Mean Platelet Volume 9.5, Neutrophils (%) (Auto) , Lymphocytes (%) (Auto) , Monocytes (%) (Auto) , Eosinophils (%) (Auto) , Basophils (%) (Auto) , Differential Total Cells Counted 100, Neutrophils % ( Manual) 85H, Lymphocytes % (Manual) 3L, Monocytes % (Manual) 12H, Eosinophils % (Manual) 0, Basophils % (Manual) 0, Band Neutrophils 0, Platelet Estimate DecreasedL, Platelet Morphology Normal, Hypochromasia 2+, Anisocytosis 1+, Spherocytes 1+, Sodium Level 153H, Potassium Level 3.6, Chloride Level 120H, Carbon Dioxide Level 18L, Anion Gap 15, Blood Urea Nitrogen 37H, Creatinine 0.8 , Estimat Glomerular Filtration Rate , Glucose Level 220H, Hemoglobin A1c 5.4, Uric Acid 3.5, Calcium Level 7.5L, Phosphorus Level 2.6, Magnesium Level 2.0, Total Bilirubin 0.9, Gamma Glutamyl Transpeptidase 387H, Aspartate Amino Transf (AST/SGOT) 74H, Alanine Aminotransferase (ALT/SGPT) 74, Alkaline Phosphatase 422H, Total Creatine Kinase 51, Troponin I 0.132H, Pro-B-Type Natriuretic Peptide 90074Z, Total Protein 5.9L, Albumin 1.3L, Globulin 4.6, Albumin/ Globulin Ratio 0.3L, Triglycerides Level 87, Cholesterol Level 127, LDL Cholesterol 51, HDL Cholesterol 23L, Cholesterol/HDL Ratio 5.5H, Thyroid Stimulating Hormone (TSH) 0.802 09/17/17 09:10: Arterial Blood pH 7.315L, Arterial Blood Partial Pressure CO2 39.6, Arterial Blood Partial Pressure O2 76.6, Arterial Blood HCO3 19.7L, Arterial Blood Oxygen Saturation 94.3, Arterial Blood Base Excess -6.0, Luis A Test Positive Height (Feet): 5 Height (Inches): 0.00 Weight (Pounds): 96 Objective WDWN NCAT supple CTA RRR abd soft confused ARNULFO DURON Sep 17, 2017 21:17
[2017-09-17] MEDS: Iron Sucrose 100 MG in NS 55 ML IV SCH (21:29)
[2017-09-18] VITALS (25 sets, daily range): BP systolic 96–125; BP diastolic 42–68
[2017-09-18] MEDS: Vancomycin 750mg/NS 250ml 250 ML IVPB SCH ×2 (00:49→13:54)
[2017-09-18] MEDS: Heparin 5000 units/ml inj SUBQ SCH ×2 (06:00→17:43)
[2017-09-18 06:21] LABS: HEMATOCRIT 29.2 % (37.0-47.0); HEMOGLOBIN 9.6 G/DL (12.0-16.0); MEAN CORPUSCULAR VOLUME 99 FL (80-99); PLATELET COUNT 16 K/UL (150-450); RED BLOOD COUNT 2.94 M/UL (4.20-5.40); WHITE BLOOD COUNT 20.1 K/UL (4.8-10.8)
[2017-09-18] MEDS: NovoLOG Insulin Flexpen SUBQ SCH ×3 (06:21→17:46)
[2017-09-18] MEDS: dilTIAZem HCl 30mg tab NG SCH ×3 (06:27→21:45)
[2017-09-18 07:09] LABS: ALANINE AMINOTRANSFERASE 75 U/L (12-78); ALBUMIN 1.2 G/DL (3.4-5.0); ALBUMIN/GLOBULIN RATIO 0.3 (1.0-2.7); ALKALINE PHOSPHATASE 473 U/L (46-116); ANION GAP 10 mmol/L (5-15); ASPARTATE AMINO TRANSFERASE 87 U/L (15-37); BLOOD UREA NITROGEN 41 mg/dL (7-18); CALCIUM 7.8 MG/DL (8.5-10.1); CARBON DIOXIDE 22 MMOL/L (21-32); CHLORIDE 119 MMOL/L (98-107); CREATININE 0.8 MG/DL (0.55-1.30); PHOSPHORUS 2.5 MG/DL (2.5-4.9); POTASSIUM 3.4 MMOL/L (3.5-5.1); SODIUM 151 MMOL/L (136-145)
[2017-09-18] MEDS: Pantoprazole Inj IV SCH (08:27)
[2017-09-18] MEDS ORDERED: Potassium Chloride 40 MEQ in Sodium Chloride 500ML 550 ML IVPB ONE (09:45)
--- NOTE | 2017-09-18 10:46 | Pulmonolgy Critical Care Note ---
Critical Care - Asmt/Plan Problems: (1) ARDS (adult respiratory distress syndrome) (2) Aspiration pneumonia (3) Protein-calorie malnutrition, severe (4) Diabetes mellitus (5) Anemia Respiratory: monitor respiratory rate, adjust FIO2, CXR, other Cardiac: d/c wood fuel pelletizer Renal: F/U I&O, check electrolytes Infectious Disease: check cultures, continue antibiotics Gastrointestinal: continue feedings/current rate Endocrine: monitor blood sugar, check TSH, continue sliding scale insulin Hematologic: monitor H/H, transfuse if hgb<8.5 Neurologic: PRN Ativan, keep patient comfortable Prophylaxis: Protonix, Heparin Time Spent (Minutes): 40 Notes Reviewed: cardio, renal Discussed with: nurses, consultants, casework supervisormanager research and development - Objective Last 24 Hour Vital Signs Date Time Temp Pulse Resp B/P (MAP) Pulse Ox O2 Delivery O2 Flow Rate FiO2 09/18/17 10:01 121 32 75 09/18/17 10:00 122 25 104/45 97 Mechanical Ventilator 75 09/18/17 09:00 97.1 116 25 106/48 96 Mechanical Ventilator 75 97.1 09/18/17 08:00 102 09/18/17 08:00 96.7 112 25 117/48 95 Mechanical Ventilator 75 96.7 09/18/17 08:00 75 09/18/17 07:12 105 30 75 09/18/17 07:00 102 25 114/42 92 Mechanical Ventilator 75 09/18/17 06:27 106 104/54 09/18/17 06:00 109 25 105/47 92 Mechanical Ventilator 75 09/18/17 05:22 105 36 75 09/18/17 05:00 109 24 105/52 100 Mechanical Ventilator 75 09/18/17 04:00 112 09/18/17 04:00 97.0 110 28 105/52 91 Mechanical Ventilator 75 97.0 09/18/17 04:00 75 09/18/17 03:30 107 24 125/52 100 Mechanical Ventilator 75 09/18/17 03:27 109 34 75 09/18/17 03:00 109 25 114/53 91 Mechanical Ventilator 75 09/18/17 02:00 108 28 116/55 93 Mechanical Ventilator 75 09/18/17 01:08 108 31 75 09/18/17 01:00 107 28 116/50 91 Mechanical Ventilator 75 09/18/17 00:00 75 09/18/17 00:00 109 09/18/17 00:00 96.5 107 29 111/54 92 Mechanical Ventilator 75 96.5 09/17/17 23:24 110 29 75 09/17/17 23:00 111 32 109/53 92 Mechanical Ventilator 75 09/17/17 22:15 116 134/56 09/17/17 22:00 115 29 134/56 95 75 09/17/17 21:12 116 30 75 09/17/17 21:00 114 31 127/54 95 75 09/17/17 20:00 113 09/17/17 20:00 96.3 115 31 120/52 100 Mechanical Ventilator 80 96.3 09/17/17 20:00 80 09/17/17 19:10 112 32 80 09/17/17 19:00 112 31 125/61 100 Mechanical Ventilator 85 09/17/17 18:00 113 35 126/51 98 Mechanical Ventilator 85 09/17/17 17:24 115 28 85 09/17/17 17:00 109 30 119/59 100 Mechanical Ventilator 85 09/17/17 16:00 85 09/17/17 16:00 112 09/17/17 16:00 98.4 114 31 114/49 99 Mechanical Ventilator 85 98.4 09/17/17 15:28 109 27 85 09/17/17 15:00 114 30 132/59 100 Mechanical Ventilator 85 09/17/17 14:10 121 139/60 09/17/17 14:00 122 32 139/60 100 Mechanical Ventilator 90 09/17/17 13:22 126 33 85 09/17/17 13:00 126 31 131/52 100 Mechanical Ventilator 90 09/17/17 12:00 98.7 128 31 127/55 100 Mechanical Ventilator 90 98.7 09/17/17 12:00 90 09/17/17 12:00 131 09/17/17 11:29 131 29 90 09/17/17 11:00 128 27 129/56 100 Mechanical Ventilator 90 Status: sedated Condition: critical HEENT: atraumatic, normocephalic Lungs: clear Heart: HR/BP stable, HR/BP unstable Abdomen: soft, non-tender, feeding tube Extremities: edema Decubiti: location Accucheck: 186 Critical Care - Subjective ROS Limited/Unobtainable: Yes ICU Day: 7 Intubation Day: 7 Condition: critical EKG Rhythm: Sinus Rhythm FI02: 75 Vent Support Breath Rate: 18 Vent Support Mode: AC Vent Tidal Volume: 500 Sputum Amount: Scant PEEP: 7.0 PIP: 39 Tube Feeding Amount: 45 I&O: Intake and Output 09/17/17 09/18/17 19:00 07:00 Intake Total 1670.000 ml 940.000 ml Output Total 720 ml 825 ml Balance 950.000 ml 115.000 ml Intake Free Water 30 ml 50 ml IV Total 1050.000 ml 350.000 ml Tube Feeding 540 ml 540 ml Other 50 ml Output Urine Total 720 ml 825 ml # Bowel Movements 1 1 CXR: extensive infiltrate ET-Tube: 7.5 ET Position: 21 Labs: Laboratory Tests Test 09/18/17 05:50 09/18/17 09:35 White Blood Count 20.1 K/UL (4.8-10.8) H Red Blood Count 2.94 M/UL (4.20-5.40) L Hemoglobin 9.6 G/DL (12.0-16.0) L Hematocrit 29.2 % (37.0-47.0) L Mean Corpuscular Volume 99 FL (80-99) Mean Corpuscular Hemoglobin 32.6 PG (27.0-31.0) H Mean Corpuscular Hemoglobin Concent 32.8 G/DL (32.0-36.0) Red Cell Distribution Width 16.0 % (11.6-14.8) H Platelet Count 16 K/UL (150-450) L Mean Platelet Volume FL (6.5-10.1) Neutrophils (%) (Auto) % (45.0-75.0) Lymphocytes (%) (Auto) % (20.0-45.0) Monocytes (%) (Auto) % (1.0-10.0) Eosinophils (%) (Auto) % (0.0-3.0) Basophils (%) (Auto) % (0.0-2.0) Neutrophils % (Manual) Pending Lymphocytes % (Manual) Pending Platelet Estimate Pending Platelet Morphology Pending Sodium Level 151 MMOL/L (136-145) H Potassium Level 3.4 MMOL/L (3.5-5.1) L Chloride Level 119 MMOL/L (98-107) H Carbon Dioxide Level 22 MMOL/L (21-32) Anion Gap 10 mmol/L (5-15) Blood Urea Nitrogen 41 mg/dL (7-18) H Creatinine 0.8 MG/DL (0.55-1.30) Estimat Glomerular Filtration Rate mL/min (>60) Glucose Level 182 MG/DL (74-106) H Calcium Level 7.8 MG/DL (8.5-10.1) L Phosphorus Level 2.5 MG/DL (2.5-4.9) Magnesium Level 1.9 MG/DL (1.8-2.4) Total Bilirubin 1.0 MG/DL (0.2-1.0) Aspartate Amino Transf (AST/SGOT) 87 U/L (15-37) H Alanine Aminotransferase (ALT/SGPT) 75 U/L (12-78) Alkaline Phosphatase 473 U/L (46-116) H Total Protein 5.4 G/DL (6.4-8.2) L Albumin 1.2 G/DL (3.4-5.0) L Globulin 4.2 g/dL Albumin/Globulin Ratio 0.3 (1.0-2.7) L Arterial Blood pH 7.337 (7.350-7.450) Arterial Blood Partial Pressure CO2 39.3 mmHg (35.0-45.0) Arterial Blood Partial Pressure O2 65.0 mmHg (75.0-100.0) L Arterial Blood HCO3 20.6 mmol/L (22.0-26.0) L Arterial Blood Oxygen Saturation 92.4 % (92.0-98.0) Arterial Blood Base Excess -4.8 Luis A Test Positive ARUNA VANEGAS Sep 18, 2017 10:46
--- NOTE | 2017-09-18 10:50 | Diagnostic Imaging Report ---
Indication: Dyspnea Comparison: 09/17/2017 A single view chest radiograph was obtained. 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 Tubes and lines are unchanged. IMPRESSION: Improved interstitial edema with considerable residual disease within the lungs bilaterally.
--- NOTE | 2017-09-18 11:00 | Nephrology Progress Note ---
Assessment/Plan Problem List: (1) ARDS (adult respiratory distress syndrome) (2) Electrolyte imbalance Assessment (1) ARDS (adult respiratory distress syndrome) (2) Aspiration pneumonia (3) Protein-calorie malnutrition, severe (4) Diabetes mellitus (5) Anemia , aplastic by history (6) DM (7) UTI (8) Electrolyte imbalance (9) HTN (10) Depression (11) RA Plan on cardiazem water via NGT Adjust BP meds K and Phos supplement as needed Monitor renal parameters and urine output avoid nephrotoxics per orders discussed with RN Left ventricular ejection fraction estimated to be 55 %. Subjective ROS Limited/Unobtainable: Yes Objective Objective Last 24 Hour Vital Signs Date Time Temp Pulse Resp B/P (MAP) Pulse Ox O2 Delivery O2 Flow Rate FiO2 09/18/17 10:01 121 32 75 09/18/17 10:00 122 25 104/45 97 Mechanical Ventilator 75 09/18/17 09:00 97.1 116 25 106/48 96 Mechanical Ventilator 75 97.1 09/18/17 08:00 102 09/18/17 08:00 96.7 112 25 117/48 95 Mechanical Ventilator 75 96.7 09/18/17 08:00 75 09/18/17 07:12 105 30 75 09/18/17 07:00 102 25 114/42 92 Mechanical Ventilator 75 09/18/17 06:27 106 104/54 09/18/17 06:00 109 25 105/47 92 Mechanical Ventilator 75 09/18/17 05:22 105 36 75 09/18/17 05:00 109 24 105/52 100 Mechanical Ventilator 75 09/18/17 04:00 112 09/18/17 04:00 97.0 110 28 105/52 91 Mechanical Ventilator 75 97.0 09/18/17 04:00 75 09/18/17 03:30 107 24 125/52 100 Mechanical Ventilator 75 09/18/17 03:27 109 34 75 09/18/17 03:00 109 25 114/53 91 Mechanical Ventilator 75 09/18/17 02:00 108 28 116/55 93 Mechanical Ventilator 75 09/18/17 01:08 108 31 75 09/18/17 01:00 107 28 116/50 91 Mechanical Ventilator 75 09/18/17 00:00 75 09/18/17 00:00 109 09/18/17 00:00 96.5 107 29 111/54 92 Mechanical Ventilator 75 96.5 09/17/17 23:24 110 29 75 09/17/17 23:00 111 32 109/53 92 Mechanical Ventilator 75 09/17/17 22:15 116 134/56 09/17/17 22:00 115 29 134/56 95 75 09/17/17 21:12 116 30 75 09/17/17 21:00 114 31 127/54 95 75 09/17/17 20:00 113 09/17/17 20:00 96.3 115 31 120/52 100 Mechanical Ventilator 80 96.3 09/17/17 20:00 80 09/17/17 19:10 112 32 80 09/17/17 19:00 112 31 125/61 100 Mechanical Ventilator 85 09/17/17 18:00 113 35 126/51 98 Mechanical Ventilator 85 09/17/17 17:24 115 28 85 09/17/17 17:00 109 30 119/59 100 Mechanical Ventilator 85 09/17/17 16:00 85 09/17/17 16:00 112 09/17/17 16:00 98.4 114 31 114/49 99 Mechanical Ventilator 85 98.4 09/17/17 15:28 109 27 85 09/17/17 15:00 114 30 132/59 100 Mechanical Ventilator 85 09/17/17 14:10 121 139/60 09/17/17 14:00 122 32 139/60 100 Mechanical Ventilator 90 09/17/17 13:22 126 33 85 09/17/17 13:00 126 31 131/52 100 Mechanical Ventilator 90 09/17/17 12:00 98.7 128 31 127/55 100 Mechanical Ventilator 90 98.7 09/17/17 12:00 90 09/17/17 12:00 131 09/17/17 11:29 131 29 90 09/17/17 11:00 128 27 129/56 100 Mechanical Ventilator 90 Intake and Output 09/17/17 09/18/17 19:00 07:00 Intake Total 1670.000 ml 940.000 ml Output Total 720 ml 825 ml Balance 950.000 ml 115.000 ml Intake Free Water 30 ml 50 ml IV Total 1050.000 ml 350.000 ml Tube Feeding 540 ml 540 ml Other 50 ml Output Urine Total 720 ml 825 ml # Bowel Movements 1 1 Laboratory Tests 09/18/17 05:50: White Blood Count 20.1H, Red Blood Count 2.94L, Hemoglobin 9.6L, Hematocrit 29.2L, Mean Corpuscular Volume 99, Mean Corpuscular Hemoglobin 32.6H, Mean Corpuscular Hemoglobin Concent 32.8, Red Cell Distribution Width 16.0H, Platelet Count 16L, Mean Platelet Volume , Neutrophils (%) (Auto) , Lymphocytes (%) (Auto) , Monocytes (%) (Auto) , Eosinophils (%) (Auto) , Basophils (%) (Auto ) , Neutrophils % (Manual) [Pending], Lymphocytes % (Manual) [Pending], Platelet Estimate [Pending], Platelet Morphology [Pending], Sodium Level 151H, Potassium Level 3.4L, Chloride Level 119H, Carbon Dioxide Level 22, Anion Gap 10 , Blood Urea Nitrogen 41H, Creatinine 0.8, Estimat Glomerular Filtration Rate , Glucose Level 182H, Calcium Level 7.8L, Phosphorus Level 2.5, Magnesium Level 1.9, Total Bilirubin 1.0, Aspartate Amino Transf (AST/SGOT) 87H, Alanine Aminotransferase (ALT/SGPT) 75, Alkaline Phosphatase 473H, Total Protein 5.4L, Albumin 1.2L, Globulin 4.2, Albumin/Globulin Ratio 0.3L 09/18/17 09:35: Arterial Blood pH 7.337L, Arterial Blood Partial Pressure CO2 39.3, Arterial Blood Partial Pressure O2 65.0L, Arterial Blood HCO3 20.6L, Arterial Blood Oxygen Saturation 92.4, Arterial Blood Base Excess -4.8, Luis A Test Positive Height (Feet): 5 Height (Inches): 0.00 Weight (Pounds): 94 General Appearance: no apparent distress EENT: other - remains intubated Respiratory/Chest: decreased breath sounds YAEL HANSEN Sep 18, 2017 10:59
--- NOTE | 2017-09-18 16:15 | Cardiac Electrophysiology PN ---
Assessment/Plan Assessment/Plan 1. Respiratory failure, due to underlying acute respiratory distress syndrome versus pneumonia,. Intubated on the vent. Already ruled out for myocardial infarction.on 75% Fio2 2. Left bundle-branch block. No evidence of advanced heart block. 3. HTN and diastolic dysfunction.On Cardizem 30 tid and Lasix 20 iv bid 4. Hyponatremia. 5. Pneumonia and sepsis on IV antibiotics by Dr. Hunter. 6. History of psychiatric disorder. 7. Anasarca. On LAsix DW RN Subjective Subjective Intubated on Vent in ICU unresponsive. Sinus tach. Still on 75% Fio2. RN at bedside. Objective Last 24 Hour Vital Signs Date Time Temp Pulse Resp B/P (MAP) Pulse Ox O2 Delivery O2 Flow Rate FiO2 09/18/17 15:18 130 35 75 09/18/17 15:00 130 31 115/46 96 Mechanical Ventilator 75 09/18/17 14:00 99.5 108 25 104/45 96 Mechanical Ventilator 75 99.5 09/18/17 13:33 136 100/43 09/18/17 13:00 99.4 108 25 104/45 96 Mechanical Ventilator 75 99.4 09/18/17 12:41 131 34 75 09/18/17 12:00 127 09/18/17 12:00 108 25 96/43 96 Mechanical Ventilator 75 09/18/17 12:00 75 09/18/17 11:14 127 31 75 09/18/17 11:00 98.4 108 25 106/45 96 Mechanical Ventilator 75 98.4 09/18/17 10:01 121 32 75 09/18/17 10:00 122 25 104/45 97 Mechanical Ventilator 75 09/18/17 09:00 97.1 116 25 106/48 96 Mechanical Ventilator 75 97.1 09/18/17 08:00 102 09/18/17 08:00 96.7 112 25 117/48 95 Mechanical Ventilator 75 96.7 09/18/17 08:00 75 09/18/17 07:12 105 30 75 09/18/17 07:00 102 25 114/42 92 Mechanical Ventilator 75 09/18/17 06:27 106 104/54 09/18/17 06:00 109 25 105/47 92 Mechanical Ventilator 75 09/18/17 05:22 105 36 75 09/18/17 05:00 109 24 105/52 100 Mechanical Ventilator 75 09/18/17 04:00 112 09/18/17 04:00 97.0 110 28 105/52 91 Mechanical Ventilator 75 97.0 09/18/17 04:00 75 09/18/17 03:30 107 24 125/52 100 Mechanical Ventilator 75 09/18/17 03:27 109 34 75 09/18/17 03:00 109 25 114/53 91 Mechanical Ventilator 75 09/18/17 02:00 108 28 116/55 93 Mechanical Ventilator 75 09/18/17 01:08 108 31 75 09/18/17 01:00 107 28 116/50 91 Mechanical Ventilator 75 09/18/17 00:00 75 09/18/17 00:00 109 09/18/17 00:00 96.5 107 29 111/54 92 Mechanical Ventilator 75 96.5 09/17/17 23:24 110 29 75 09/17/17 23:00 111 32 109/53 92 Mechanical Ventilator 75 09/17/17 22:15 116 134/56 09/17/17 22:00 115 29 134/56 95 75 09/17/17 21:12 116 30 75 09/17/17 21:00 114 31 127/54 95 75 09/17/17 20:00 113 09/17/17 20:00 96.3 115 31 120/52 100 Mechanical Ventilator 80 96.3 09/17/17 20:00 80 09/17/17 19:10 112 32 80 09/17/17 19:00 112 31 125/61 100 Mechanical Ventilator 85 09/17/17 18:00 113 35 126/51 98 Mechanical Ventilator 85 09/17/17 17:24 115 28 85 09/17/17 17:00 109 30 119/59 100 Mechanical Ventilator 85 Intake and Output 09/17/17 09/18/17 19:00 07:00 Intake Total 1670.000 ml 940.000 ml Output Total 720 ml 825 ml Balance 950.000 ml 115.000 ml Intake Free Water 30 ml 50 ml IV Total 1050.000 ml 350.000 ml Tube Feeding 540 ml 540 ml Other 50 ml Output Urine Total 720 ml 825 ml # Bowel Movements 1 1 Laboratory Tests Test 09/18/17 05:50 09/18/17 09:35 White Blood Count 20.1 K/UL (4.8-10.8) H Red Blood Count 2.94 M/UL (4.20-5.40) L Hemoglobin 9.6 G/DL (12.0-16.0) L Hematocrit 29.2 % (37.0-47.0) L Mean Corpuscular Volume 99 FL (80-99) Mean Corpuscular Hemoglobin 32.6 PG (27.0-31.0) H Mean Corpuscular Hemoglobin Concent 32.8 G/DL (32.0-36.0) Red Cell Distribution Width 16.0 % (11.6-14.8) H Platelet Count 16 K/UL (150-450) L Mean Platelet Volume FL (6.5-10.1) Neutrophils (%) (Auto) % (45.0-75.0) Lymphocytes (%) (Auto) % (20.0-45.0) Monocytes (%) (Auto) % (1.0-10.0) Eosinophils (%) (Auto) % (0.0-3.0) Basophils (%) (Auto) % (0.0-2.0) Differential Total Cells Counted 100 Neutrophils % (Manual) 89 % (45-75) H Lymphocytes % (Manual) 3 % (20-45) L Monocytes % (Manual) 2 % (1-10) Eosinophils % (Manual) 0 % (0-3) Basophils % (Manual) 0 % (0-2) Metamyelocytes % 1 % (0-0) H Band Neutrophils 5 % (0-8) Nucleated Red Blood Cells 2 /100 WBC Platelet Estimate Decreased L Platelet Morphology Normal Anisocytosis 1+ Macrocytosis 1+ Sodium Level 151 MMOL/L (136-145) H Potassium Level 3.4 MMOL/L (3.5-5.1) L Chloride Level 119 MMOL/L (98-107) H Carbon Dioxide Level 22 MMOL/L (21-32) Anion Gap 10 mmol/L (5-15) Blood Urea Nitrogen 41 mg/dL (7-18) H Creatinine 0.8 MG/DL (0.55-1.30) Estimat Glomerular Filtration Rate mL/min (>60) Glucose Level 182 MG/DL (74-106) H Calcium Level 7.8 MG/DL (8.5-10.1) L Phosphorus Level 2.5 MG/DL (2.5-4.9) Magnesium Level 1.9 MG/DL (1.8-2.4) Total Bilirubin 1.0 MG/DL (0.2-1.0) Aspartate Amino Transf (AST/SGOT) 87 U/L (15-37) H Alanine Aminotransferase (ALT/SGPT) 75 U/L (12-78) Alkaline Phosphatase 473 U/L (46-116) H Total Protein 5.4 G/DL (6.4-8.2) L Albumin 1.2 G/DL (3.4-5.0) L Globulin 4.2 g/dL Albumin/Globulin Ratio 0.3 (1.0-2.7) L Arterial Blood pH 7.337 (7.350-7.450) Arterial Blood Partial Pressure CO2 39.3 mmHg (35.0-45.0) Arterial Blood Partial Pressure O2 65.0 mmHg (75.0-100.0) L Arterial Blood HCO3 20.6 mmol/L (22.0-26.0) L Arterial Blood Oxygen Saturation 92.4 % (92.0-98.0) Arterial Blood Base Excess -4.8 Luis A Test Positive Objective HEAD AND NECK: No JVD. Orally intubated. LUNGS: Coarse rhonchi bilaterally on BiPAP. CARDIOVASCULAR: Tachy S1 and S2. ABDOMEN: Soft. EXTREMITIES: 1+ pitting edema. ROLF OLIVIA Sep 18, 2017 16:15
--- NOTE | 2017-09-18 16:21 | General Progress Note ---
Assessment/Plan Problem List: (1) Aspiration pneumonia ICD Codes: J69.0 - Pneumonitis due to inhalation of food and vomit SNOMED: 996876676 (2) Protein-calorie malnutrition, severe ICD Codes: E43 - Unspecified severe protein-calorie malnutrition SNOMED: 208337492 (3) Diabetes mellitus ICD Codes: E11.9 - Type 2 diabetes mellitus without complications SNOMED: 40081747 (4) ARDS (adult respiratory distress syndrome) ICD Codes: J80 - Acute respiratory distress syndrome SNOMED: 13296183 (5) Anemia ICD Codes: D64.9 - Anemia, unspecified SNOMED: 486986717 (6) Pulmonary edema ICD Codes: J81.1 - Chronic pulmonary edema SNOMED: 90037378 (7) UTI (urinary tract infection) ICD Codes: N39.0 - Urinary tract infection, site not specified SNOMED: 77263142, 933294678 (8) Transaminitis ICD Codes: R74.0 - Nonspecific elevation of levels of transaminase and lactic acid dehydrogenase [LDH] SNOMED: 309860288, 124388680 (9) Respiratory failure ICD Codes: J96.90 - Respiratory failure, unspecified, unspecified whether with hypoxia or hypercapnia SNOMED: 032161386 (10) Arthritis, rheumatoid ICD Codes: M06.9 - Rheumatoid arthritis, unspecified SNOMED: 35121145 (11) Dyspnea ICD Codes: R06.00 - Dyspnea, unspecified SNOMED: 751557045 (12) Parkinsons disease ICD Codes: G20 - Parkinson's disease SNOMED: 27570553 (13) Sepsis ICD Codes: A41.9 - Sepsis, unspecified organism SNOMED: 65290292 (14) GERD (gastroesophageal reflux disease) ICD Codes: K21.9 - Gastro-esophageal reflux disease without esophagitis SNOMED: 887992009 (15) Aplastic anemia ICD Codes: D61.9 - Aplastic anemia, unspecified SNOMED: 078535530 (16) Pneumonia ICD Codes: J18.9 - Pneumonia, unspecified organism SNOMED: 815660132 (17) HTN (hypertension) ICD Codes: I10 - Essential (primary) hypertension SNOMED: 32982928 Status: unchanged Assessment/Plan encephalopathy -cont current meds Subjective Date patient seen: Sep 18, 2017 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: Reports: anxiety, depressed, emotional problems Allergies: Coded Allergies: No Known Allergies (Verified , 11/18/08) Objective Last 24 Hour Vital Signs Date Time Temp Pulse Resp B/P (MAP) Pulse Ox O2 Delivery O2 Flow Rate FiO2 09/18/17 15:18 130 35 75 09/18/17 15:00 130 31 115/46 96 Mechanical Ventilator 75 09/18/17 14:00 99.5 108 25 104/45 96 Mechanical Ventilator 75 99.5 09/18/17 13:33 136 100/43 09/18/17 13:00 99.4 108 25 104/45 96 Mechanical Ventilator 75 99.4 09/18/17 12:41 131 34 75 09/18/17 12:00 127 09/18/17 12:00 108 25 96/43 96 Mechanical Ventilator 75 09/18/17 12:00 75 09/18/17 11:14 127 31 75 09/18/17 11:00 98.4 108 25 106/45 96 Mechanical Ventilator 75 98.4 09/18/17 10:01 121 32 75 09/18/17 10:00 122 25 104/45 97 Mechanical Ventilator 75 09/18/17 09:00 97.1 116 25 106/48 96 Mechanical Ventilator 75 97.1 09/18/17 08:00 102 09/18/17 08:00 96.7 112 25 117/48 95 Mechanical Ventilator 75 96.7 09/18/17 08:00 75 09/18/17 07:12 105 30 75 09/18/17 07:00 102 25 114/42 92 Mechanical Ventilator 75 09/18/17 06:27 106 104/54 09/18/17 06:00 109 25 105/47 92 Mechanical Ventilator 75 09/18/17 05:22 105 36 75 09/18/17 05:00 109 24 105/52 100 Mechanical Ventilator 75 09/18/17 04:00 112 09/18/17 04:00 97.0 110 28 105/52 91 Mechanical Ventilator 75 97.0 09/18/17 04:00 75 09/18/17 03:30 107 24 125/52 100 Mechanical Ventilator 75 09/18/17 03:27 109 34 75 09/18/17 03:00 109 25 114/53 91 Mechanical Ventilator 75 09/18/17 02:00 108 28 116/55 93 Mechanical Ventilator 75 09/18/17 01:08 108 31 75 09/18/17 01:00 107 28 116/50 91 Mechanical Ventilator 75 09/18/17 00:00 75 09/18/17 00:00 109 09/18/17 00:00 96.5 107 29 111/54 92 Mechanical Ventilator 75 96.5 09/17/17 23:24 110 29 75 09/17/17 23:00 111 32 109/53 92 Mechanical Ventilator 75 09/17/17 22:15 116 134/56 09/17/17 22:00 115 29 134/56 95 75 09/17/17 21:12 116 30 75 09/17/17 21:00 114 31 127/54 95 75 09/17/17 20:00 113 09/17/17 20:00 96.3 115 31 120/52 100 Mechanical Ventilator 80 96.3 09/17/17 20:00 80 09/17/17 19:10 112 32 80 09/17/17 19:00 112 31 125/61 100 Mechanical Ventilator 85 09/17/17 18:00 113 35 126/51 98 Mechanical Ventilator 85 09/17/17 17:24 115 28 85 09/17/17 17:00 109 30 119/59 100 Mechanical Ventilator 85 Intake and Output 09/17/17 09/18/17 19:00 07:00 Intake Total 1670.000 ml 940.000 ml Output Total 720 ml 825 ml Balance 950.000 ml 115.000 ml Intake Free Water 30 ml 50 ml IV Total 1050.000 ml 350.000 ml Tube Feeding 540 ml 540 ml Other 50 ml Output Urine Total 720 ml 825 ml # Bowel Movements 1 1 Laboratory Tests 09/18/17 05:50: White Blood Count 20.1H, Red Blood Count 2.94L, Hemoglobin 9.6L, Hematocrit 29.2L, Mean Corpuscular Volume 99, Mean Corpuscular Hemoglobin 32.6H, Mean Corpuscular Hemoglobin Concent 32.8, Red Cell Distribution Width 16.0H, Platelet Count 16L, Mean Platelet Volume , Neutrophils (%) (Auto) , Lymphocytes (%) (Auto) , Monocytes (%) (Auto) , Eosinophils (%) (Auto) , Basophils (%) (Auto ) , Differential Total Cells Counted 100, Neutrophils % (Manual) 89H, Lymphocytes % (Manual) 3L, Monocytes % (Manual) 2, Eosinophils % (Manual) 0, Basophils % (Manual) 0, Metamyelocytes % 1H, Band Neutrophils 5, Nucleated Red Blood Cells 2, Platelet Estimate DecreasedL, Platelet Morphology Normal, Anisocytosis 1+, Macrocytosis 1+, Sodium Level 151H, Potassium Level 3.4L, Chloride Level 119H, Carbon Dioxide Level 22, Anion Gap 10, Blood Urea Nitrogen 41H, Creatinine 0.8, Estimat Glomerular Filtration Rate , Glucose Level 182H, Calcium Level 7.8L, Phosphorus Level 2.5, Magnesium Level 1.9, Total Bilirubin 1.0, Aspartate Amino Transf (AST/SGOT) 87H, Alanine Aminotransferase (ALT/SGPT) 75, Alkaline Phosphatase 473H, Total Protein 5.4L, Albumin 1.2L, Globulin 4.2, Albumin/Globulin Ratio 0.3L 09/18/17 09:35: Arterial Blood pH 7.337L, Arterial Blood Partial Pressure CO2 39.3, Arterial Blood Partial Pressure O2 65.0L, Arterial Blood HCO3 20.6L, Arterial Blood Oxygen Saturation 92.4, Arterial Blood Base Excess -4.8, Luis A Test Positive Height (Feet): 5 Height (Inches): 0.00 Weight (Pounds): 94 General Appearance: no apparent distress, lethargic, confused Dary Nixon M.D. Sep 18, 2017 16:20
--- NOTE | 2017-09-18 19:54 | Internal Med Progress Note ---
Subjective Date of Service: Sep 18, 2017 Physician Name Sina Bowens Attending Physician Jesus Barahona MD Current Medications Medications (Trade) Dose Ordered Sig/Hermes Route PRN Reason Start Time Stop Time Status Last Admin Dose Admin Acetaminophen (Tylenol) 650 mg EVERY 6 HOURS PRN NG Fever/Headache/Mild Pain 09/13/17 20:45 10/13/17 20:44 09/15/17 20:53 Clonidine HCl (Catapres Tab) 0.1 mg Q4H PRN ORAL SBP>160 UNRELIEVED BY HYDRALAZ 09/16/17 16:45 10/15/17 16:59 Dextrose (Dextrose 50%) STAT PRN IV Hypoglycemia 09/13/17 15:00 10/13/17 14:59 Diltiazem HCl (Cardizem) 30 mg EVERY 8 HOURS NG 09/18/17 22:00 10/18/17 21:59 Furosemide (Lasix) 20 mg EVERY 12 HOURS IV 09/17/17 21:00 10/17/17 20:59 09/18/17 08:31 Insulin Aspart (NovoLOG) EVERY 6 HOURS SUBQ 09/17/17 12:00 10/17/17 11:59 09/18/17 17:46 Levofloxacin 100 ml @ 100 mls/hr Q24H IVPB 09/12/17 20:00 09/19/17 19:59 09/17/17 19:53 Lorazepam (Ativan 2mg/ml 1ml) 2 mg Q2HR PRN IV For Anxiety 09/12/17 22:00 09/19/17 21:59 09/15/17 11:22 Morphine Sulfate (Morphine Sulfate) 4 mg Q4H PRN IVP For Pain 09/12/17 10:45 09/19/17 10:44 09/15/17 15:41 Oseltamivir Phosphate (Tamiflu) 30 mg Q12HR ORAL 09/17/17 21:00 09/22/17 14:00 09/18/17 08:33 Pantoprazole (Protonix) 40 mg DAILY IV 09/13/17 09:00 10/13/17 08:59 09/18/17 08:27 Polyethylene Glycol (Miralax) 17 gm BEDTIME ORAL 09/14/17 21:00 10/14/17 20:59 09/14/17 21:21 Vancomycin HCl (Vanco rx to dose) 1 ea DAILY PRN MISC Per rx protocol 09/11/17 23:15 10/11/17 23:14 Vancomycin/Sodium Chloride 250 ml @ 166.667 mls/hr Q12HR@0100,1300 IVPB 09/17/17 01:00 09/22/17 00:59 09/18/17 13:54 Allergies: Coded Allergies: No Known Allergies (Verified , 11/18/08) ROS Limited/Unobtainable: Yes Subjective 76 YO F admitted with Shortness of breath, now respiratory failure. Intubated and sedated. Cover for Internal Med-Dr. Barahona. ICU Objective Last Vital Signs Date Time Temp Pulse Resp B/P (MAP) Pulse Ox O2 Delivery O2 Flow Rate FiO2 09/18/17 19:07 132 37 70 09/18/17 19:00 99.2 109/54 97 Mechanical Ventilator 99.2 09/12/17 00:35 15.0 Laboratory Tests Test 09/18/17 05:50 09/18/17 09:35 White Blood Count 20.1 K/UL (4.8-10.8) H Red Blood Count 2.94 M/UL (4.20-5.40) L Hemoglobin 9.6 G/DL (12.0-16.0) L Hematocrit 29.2 % (37.0-47.0) L Mean Corpuscular Volume 99 FL (80-99) Mean Corpuscular Hemoglobin 32.6 PG (27.0-31.0) H Mean Corpuscular Hemoglobin Concent 32.8 G/DL (32.0-36.0) Red Cell Distribution Width 16.0 % (11.6-14.8) H Platelet Count 16 K/UL (150-450) L Mean Platelet Volume FL (6.5-10.1) Neutrophils (%) (Auto) % (45.0-75.0) Lymphocytes (%) (Auto) % (20.0-45.0) Monocytes (%) (Auto) % (1.0-10.0) Eosinophils (%) (Auto) % (0.0-3.0) Basophils (%) (Auto) % (0.0-2.0) Differential Total Cells Counted 100 Neutrophils % (Manual) 89 % (45-75) H Lymphocytes % (Manual) 3 % (20-45) L Monocytes % (Manual) 2 % (1-10) Eosinophils % (Manual) 0 % (0-3) Basophils % (Manual) 0 % (0-2) Metamyelocytes % 1 % (0-0) H Band Neutrophils 5 % (0-8) Nucleated Red Blood Cells 2 /100 WBC Platelet Estimate Decreased L Platelet Morphology Normal Anisocytosis 1+ Macrocytosis 1+ Sodium Level 151 MMOL/L (136-145) H Potassium Level 3.4 MMOL/L (3.5-5.1) L Chloride Level 119 MMOL/L (98-107) H Carbon Dioxide Level 22 MMOL/L (21-32) Anion Gap 10 mmol/L (5-15) Blood Urea Nitrogen 41 mg/dL (7-18) H Creatinine 0.8 MG/DL (0.55-1.30) Estimat Glomerular Filtration Rate mL/min (>60) Glucose Level 182 MG/DL (74-106) H Calcium Level 7.8 MG/DL (8.5-10.1) L Phosphorus Level 2.5 MG/DL (2.5-4.9) Magnesium Level 1.9 MG/DL (1.8-2.4) Total Bilirubin 1.0 MG/DL (0.2-1.0) Aspartate Amino Transf (AST/SGOT) 87 U/L (15-37) H Alanine Aminotransferase (ALT/SGPT) 75 U/L (12-78) Alkaline Phosphatase 473 U/L (46-116) H Total Protein 5.4 G/DL (6.4-8.2) L Albumin 1.2 G/DL (3.4-5.0) L Globulin 4.2 g/dL Albumin/Globulin Ratio 0.3 (1.0-2.7) L Arterial Blood pH 7.337 (7.350-7.450) Arterial Blood Partial Pressure CO2 39.3 mmHg (35.0-45.0) Arterial Blood Partial Pressure O2 65.0 mmHg (75.0-100.0) L Arterial Blood HCO3 20.6 mmol/L (22.0-26.0) L Arterial Blood Oxygen Saturation 92.4 % (92.0-98.0) Arterial Blood Base Excess -4.8 Luis A Test Positive Intake and Output 09/17/17 09/18/17 19:00 07:00 Intake Total 1670.000 ml 940.000 ml Output Total 720 ml 825 ml Balance 950.000 ml 115.000 ml Intake Free Water 30 ml 50 ml IV Total 1050.000 ml 350.000 ml Tube Feeding 540 ml 540 ml Other 50 ml Output Urine Total 720 ml 825 ml # Bowel Movements 1 1 Objective General Appearance: lethargic, thin EENT: normal ENT inspection Neck: non-tender, normal alignment, supple Cardiovascular: normal peripheral pulses, normal rate, regular rhythm, no gallop/murmur, no JVD Respiratory/Chest: Mechanical vent; respiratory distress, crackles/rales, rhonchi - bilaterally, expiratory wheezing Abdomen: normal bowel sounds, non tender, soft, no organomegaly, no mass Skin: normal pigmentation, warm/dry Assessment/Plan Problem List: (1) HTN (hypertension) Assessment & Plan: Currently hypotensive. (2) Arthritis, rheumatoid (3) Parkinsons disease (4) Aplastic anemia (5) GERD (gastroesophageal reflux disease) (6) Respiratory failure Assessment & Plan: Cont vent per pulmonary (7) Pneumonia (8) Dyspnea (9) Sepsis Assessment & Plan: Blood culture neg. Continue vanco and levaquin per ID (10) ARDS (adult respiratory distress syndrome) Assessment & Plan: See pulmonary note (11) UTI (urinary tract infection) Assessment & Plan: E.Coli. Continue levaquin (12) Anemia Assessment & Plan: S/P Transfusion 2 units PRBC Status: not improved SINA BOWENS Sep 18, 2017 19:54
[2017-09-18] MEDS: Miralax 17gm pkt ORAL SCH (20:42)
[2017-09-18 21:31] LABS: FERRITIN 1081 NG/ML (8-388)
--- NOTE | 2017-09-18 21:44 | Infectious Diseases Prog Note ---
Assessment/Plan Assessment/Plan ASSESSMENT: The patient is a 76-year-old female w Fever, low grade Leukocytosis improving Community-acquired vs healthcare-associated pneumonia (the patient has been recently hospitalized in [facility]). Probable influenza despite of negative influenza screening test. Abnormal liver function tests, improving rule out biliary disease Hep panel : neg Probable UCx : E coli Chest x-ray, Fairly extensive patchy airspace disease noted bilaterally. HTN GERD History of auditory hallucination. Depression. Anemia. Rheumatoid arthritis. History of gastritis. PLAN: continue the patient on vancomycin and Levaquin and Tamiflu d# - Monitor CBC. Monitor BMP. Monitor chest x-ray. Ultrasound of the abdomen. Subjective Allergies: Coded Allergies: No Known Allergies (Verified , 11/18/08) Subjective afebrile Objective Vital Signs Last 24 Hour Vital Signs Date Time Temp Pulse Resp B/P (MAP) Pulse Ox O2 Delivery O2 Flow Rate FiO2 09/18/17 21:00 114 27 118/58 98 Mechanical Ventilator 75 09/18/17 20:48 126 34 70 09/18/17 20:00 115 31 108/68 97 Mechanical Ventilator 75 09/18/17 20:00 70 09/18/17 20:00 128 09/18/17 19:07 132 37 70 09/18/17 19:00 99.2 130 31 109/54 97 Mechanical Ventilator 75 99.2 09/18/17 18:00 99.1 130 31 107/52 97 Mechanical Ventilator 75 99.1 09/18/17 17:29 126 33 75 09/18/17 17:00 131 31 121/54 97 Mechanical Ventilator 75 09/18/17 16:00 129 09/18/17 16:00 75 09/18/17 16:00 98.6 124 25 107/53 96 Mechanical Ventilator 75 98.6 09/18/17 15:18 130 35 75 09/18/17 15:00 130 31 115/46 96 Mechanical Ventilator 75 09/18/17 14:00 99.5 108 25 104/45 96 Mechanical Ventilator 75 99.5 09/18/17 13:33 136 100/43 09/18/17 13:00 99.4 108 25 104/45 96 Mechanical Ventilator 75 99.4 09/18/17 12:41 131 34 75 09/18/17 12:00 127 09/18/17 12:00 108 25 96/43 96 Mechanical Ventilator 75 09/18/17 12:00 75 09/18/17 11:14 127 31 75 09/18/17 11:00 98.4 108 25 106/45 96 Mechanical Ventilator 75 98.4 09/18/17 10:01 121 32 75 09/18/17 10:00 122 25 104/45 97 Mechanical Ventilator 75 09/18/17 09:00 97.1 116 25 106/48 96 Mechanical Ventilator 75 97.1 09/18/17 08:00 102 09/18/17 08:00 96.7 112 25 117/48 95 Mechanical Ventilator 75 96.7 09/18/17 08:00 75 09/18/17 07:12 105 30 75 09/18/17 07:00 102 25 114/42 92 Mechanical Ventilator 75 09/18/17 06:27 106 104/54 09/18/17 06:00 109 25 105/47 92 Mechanical Ventilator 75 09/18/17 05:22 105 36 75 09/18/17 05:00 109 24 105/52 100 Mechanical Ventilator 75 09/18/17 04:00 112 09/18/17 04:00 97.0 110 28 105/52 91 Mechanical Ventilator 75 97.0 09/18/17 04:00 75 09/18/17 03:30 107 24 125/52 100 Mechanical Ventilator 75 09/18/17 03:27 109 34 75 09/18/17 03:00 109 25 114/53 91 Mechanical Ventilator 75 09/18/17 02:00 108 28 116/55 93 Mechanical Ventilator 75 09/18/17 01:08 108 31 75 09/18/17 01:00 107 28 116/50 91 Mechanical Ventilator 75 09/18/17 00:00 75 09/18/17 00:00 109 09/18/17 00:00 96.5 107 29 111/54 92 Mechanical Ventilator 75 96.5 09/17/17 23:24 110 29 75 09/17/17 23:00 111 32 109/53 92 Mechanical Ventilator 75 09/17/17 22:15 116 134/56 09/17/17 22:00 115 29 134/56 95 75 Height (Feet): 5 Height (Inches): 0.00 Weight (Pounds): 94 HEENT: mucous membranes moist Respiratory/Chest: no accessory muscle use Cardiovascular: regularly irregular Abdomen: no organomegaly Laboratory Tests Test 09/18/17 05:50 09/18/17 09:35 White Blood Count 20.1 K/UL (4.8-10.8) H Red Blood Count 2.94 M/UL (4.20-5.40) L Hemoglobin 9.6 G/DL (12.0-16.0) L Hematocrit 29.2 % (37.0-47.0) L Mean Corpuscular Volume 99 FL (80-99) Mean Corpuscular Hemoglobin 32.6 PG (27.0-31.0) H Mean Corpuscular Hemoglobin Concent 32.8 G/DL (32.0-36.0) Red Cell Distribution Width 16.0 % (11.6-14.8) H Platelet Count 16 K/UL (150-450) L Mean Platelet Volume FL (6.5-10.1) Neutrophils (%) (Auto) % (45.0-75.0) Lymphocytes (%) (Auto) % (20.0-45.0) Monocytes (%) (Auto) % (1.0-10.0) Eosinophils (%) (Auto) % (0.0-3.0) Basophils (%) (Auto) % (0.0-2.0) Differential Total Cells Counted 100 Neutrophils % (Manual) 89 % (45-75) H Lymphocytes % (Manual) 3 % (20-45) L Monocytes % (Manual) 2 % (1-10) Eosinophils % (Manual) 0 % (0-3) Basophils % (Manual) 0 % (0-2) Metamyelocytes % 1 % (0-0) H Band Neutrophils 5 % (0-8) Nucleated Red Blood Cells 2 /100 WBC Platelet Estimate Decreased L Platelet Morphology Normal Anisocytosis 1+ Macrocytosis 1+ Sodium Level 151 MMOL/L (136-145) H Potassium Level 3.4 MMOL/L (3.5-5.1) L Chloride Level 119 MMOL/L (98-107) H Carbon Dioxide Level 22 MMOL/L (21-32) Anion Gap 10 mmol/L (5-15) Blood Urea Nitrogen 41 mg/dL (7-18) H Creatinine 0.8 MG/DL (0.55-1.30) Estimat Glomerular Filtration Rate mL/min (>60) Glucose Level 182 MG/DL (74-106) H Calcium Level 7.8 MG/DL (8.5-10.1) L Phosphorus Level 2.5 MG/DL (2.5-4.9) Magnesium Level 1.9 MG/DL (1.8-2.4) Iron Level Pending Unsaturated Iron Binding Pending Ferritin 1081 NG/ML (8-388) H Total Bilirubin 1.0 MG/DL (0.2-1.0) Aspartate Amino Transf (AST/SGOT) 87 U/L (15-37) H Alanine Aminotransferase (ALT/SGPT) 75 U/L (12-78) Alkaline Phosphatase 473 U/L (46-116) H Total Protein 5.4 G/DL (6.4-8.2) L Albumin 1.2 G/DL (3.4-5.0) L Globulin 4.2 g/dL Albumin/Globulin Ratio 0.3 (1.0-2.7) L Vitamin B12 Level Pending Folate Pending Arterial Blood pH 7.337 (7.350-7.450) Arterial Blood Partial Pressure CO2 39.3 mmHg (35.0-45.0) Arterial Blood Partial Pressure O2 65.0 mmHg (75.0-100.0) L Arterial Blood HCO3 20.6 mmol/L (22.0-26.0) L Arterial Blood Oxygen Saturation 92.4 % (92.0-98.0) Arterial Blood Base Excess -4.8 Luis A Test Positive Current Medications Medications (Trade) Dose Ordered Sig/Hermes Route PRN Reason Start Time Stop Time Status Last Admin Dose Admin Acetaminophen (Tylenol) 650 mg EVERY 6 HOURS PRN NG Fever/Headache/Mild Pain 09/13/17 20:45 10/13/17 20:44 09/15/17 20:53 Clonidine HCl (Catapres Tab) 0.1 mg Q4H PRN ORAL SBP>160 UNRELIEVED BY HYDRALAZ 09/16/17 16:45 10/15/17 16:59 Dextrose (Dextrose 50%) STAT PRN IV Hypoglycemia 09/13/17 15:00 10/13/17 14:59 Diltiazem HCl (Cardizem) 30 mg EVERY 8 HOURS NG 09/18/17 22:00 10/18/17 21:59 Furosemide (Lasix) 20 mg EVERY 12 HOURS IV 09/17/17 21:00 10/17/17 20:59 09/18/17 20:42 Insulin Aspart (NovoLOG) EVERY 6 HOURS SUBQ 09/17/17 12:00 10/17/17 11:59 09/18/17 17:46 Levofloxacin 100 ml @ 100 mls/hr Q24H IVPB 09/12/17 20:00 09/19/17 19:59 09/18/17 20:13 Lorazepam (Ativan 2mg/ml 1ml) 2 mg Q2HR PRN IV For Anxiety 09/12/17 22:00 09/19/17 21:59 09/15/17 11:22 Morphine Sulfate (Morphine Sulfate) 4 mg Q4H PRN IVP For Pain 09/12/17 10:45 09/19/17 10:44 09/15/17 15:41 Oseltamivir Phosphate (Tamiflu) 30 mg Q12HR ORAL 09/17/17 21:00 09/22/17 14:00 09/18/17 20:42 Pantoprazole (Protonix) 40 mg DAILY IV 09/13/17 09:00 10/13/17 08:59 09/18/17 08:27 Polyethylene Glycol (Miralax) 17 gm BEDTIME ORAL 09/14/17 21:00 10/14/17 20:59 09/18/17 20:42 Vancomycin HCl (Vanco rx to dose) 1 ea DAILY PRN MISC Per rx protocol 09/11/17 23:15 10/11/17 23:14 Vancomycin/Sodium Chloride 250 ml @ 166.667 mls/hr Q12HR@0100,1300 IVPB 09/17/17 01:00 09/22/17 00:59 09/18/17 13:54 DEBBIE MURRY M.D. Sep 18, 2017 21:43
[2017-09-18 21:51] LABS: % IRON SATURATION 99 % (15-50); IRON 149 ug/dL (50-175); TOTAL IRON BINDING CAPACITY 150 ug/dL (250-450)
--- NOTE | 2017-09-18 22:45 | General Progress Note ---
Assessment/Plan Assessment/Plan Assessment - Resp failure / ARDS - Abnormal LFT with rapid resolution - Anemia with OB (+) stools - Malnutrition Recommendations - NGT feeds - check abd u/s - pending - Elevate HOB - Vent care - Monitor H&H - PPI Subjective Allergies: Coded Allergies: No Known Allergies (Verified , 11/18/08) Subjective on Vent poorly communicative feeds d/w medical staff specialist Objective Last 24 Hour Vital Signs Date Time Temp Pulse Resp B/P (MAP) Pulse Ox O2 Delivery O2 Flow Rate FiO2 09/18/17 22:00 116 26 105/48 95 Mechanical Ventilator 75 09/18/17 21:45 122 113/54 09/18/17 21:00 114 27 118/58 98 Mechanical Ventilator 75 09/18/17 20:48 126 34 70 09/18/17 20:00 115 31 108/68 97 Mechanical Ventilator 75 09/18/17 20:00 70 09/18/17 20:00 128 09/18/17 19:07 132 37 70 09/18/17 19:00 99.2 130 31 109/54 97 Mechanical Ventilator 75 99.2 09/18/17 18:00 99.1 130 31 107/52 97 Mechanical Ventilator 75 99.1 09/18/17 17:29 126 33 75 09/18/17 17:00 131 31 121/54 97 Mechanical Ventilator 75 09/18/17 16:00 129 09/18/17 16:00 75 09/18/17 16:00 98.6 124 25 107/53 96 Mechanical Ventilator 75 98.6 09/18/17 15:18 130 35 75 09/18/17 15:00 130 31 115/46 96 Mechanical Ventilator 75 09/18/17 14:00 99.5 108 25 104/45 96 Mechanical Ventilator 75 99.5 09/18/17 13:33 136 100/43 09/18/17 13:00 99.4 108 25 104/45 96 Mechanical Ventilator 75 99.4 09/18/17 12:41 131 34 75 09/18/17 12:00 127 09/18/17 12:00 108 25 96/43 96 Mechanical Ventilator 75 09/18/17 12:00 75 09/18/17 11:14 127 31 75 09/18/17 11:00 98.4 108 25 106/45 96 Mechanical Ventilator 75 98.4 09/18/17 10:01 121 32 75 3/8/18 10:00 122 25 104/45 97 Mechanical Ventilator 75 09/18/17 09:00 97.1 116 25 106/48 96 Mechanical Ventilator 75 97.1 09/18/17 08:00 102 09/18/17 08:00 96.7 112 25 117/48 95 Mechanical Ventilator 75 96.7 09/18/17 08:00 75 09/18/17 07:12 105 30 75 09/18/17 07:00 102 25 114/42 92 Mechanical Ventilator 75 09/18/17 06:27 106 104/54 09/18/17 06:00 109 25 105/47 92 Mechanical Ventilator 75 09/18/17 05:22 105 36 75 09/18/17 05:00 109 24 105/52 100 Mechanical Ventilator 75 09/18/17 04:00 112 09/18/17 04:00 97.0 110 28 105/52 91 Mechanical Ventilator 75 97.0 09/18/17 04:00 75 09/18/17 03:30 107 24 125/52 100 Mechanical Ventilator 75 09/18/17 03:27 109 34 75 09/18/17 03:00 109 25 114/53 91 Mechanical Ventilator 75 09/18/17 02:00 108 28 116/55 93 Mechanical Ventilator 75 09/18/17 01:08 108 31 75 09/18/17 01:00 107 28 116/50 91 Mechanical Ventilator 75 09/18/17 00:00 75 09/18/17 00:00 109 09/18/17 00:00 96.5 107 29 111/54 92 Mechanical Ventilator 75 96.5 09/17/17 23:24 110 29 75 09/17/17 23:00 111 32 109/53 92 Mechanical Ventilator 75 Intake and Output 09/17/17 09/18/17 19:00 07:00 Intake Total 1670.000 ml 940.000 ml Output Total 720 ml 825 ml Balance 950.000 ml 115.000 ml Intake Free Water 30 ml 50 ml IV Total 1050.000 ml 350.000 ml Tube Feeding 540 ml 540 ml Other 50 ml Output Urine Total 720 ml 825 ml # Bowel Movements 1 1 Laboratory Tests 09/18/17 05:50: White Blood Count 20.1H, Red Blood Count 2.94L, Hemoglobin 9.6L, Hematocrit 29.2L, Mean Corpuscular Volume 99, Mean Corpuscular Hemoglobin 32.6H, Mean Corpuscular Hemoglobin Concent 32.8, Red Cell Distribution Width 16.0H, Platelet Count 16L, Mean Platelet Volume , Neutrophils (%) (Auto) , Lymphocytes (%) (Auto) , Monocytes (%) (Auto) , Eosinophils (%) (Auto) , Basophils (%) (Auto ) , Differential Total Cells Counted 100, Neutrophils % (Manual) 89H, Lymphocytes % (Manual) 3L, Monocytes % (Manual) 2, Eosinophils % (Manual) 0, Basophils % (Manual) 0, Metamyelocytes % 1H, Band Neutrophils 5, Nucleated Red Blood Cells 2, Platelet Estimate DecreasedL, Platelet Morphology Normal, Anisocytosis 1+, Macrocytosis 1+, Sodium Level 151H, Potassium Level 3.4L, Chloride Level 119H, Carbon Dioxide Level 22, Anion Gap 10, Blood Urea Nitrogen 41H, Creatinine 0.8, Estimat Glomerular Filtration Rate , Glucose Level 182H, Calcium Level 7.8L, Phosphorus Level 2.5, Magnesium Level 1.9, Iron Level 149, Total Iron Binding Capacity 150L, Percent Iron Saturation 99H, Unsaturated Iron Binding 1L, Ferritin 1081H, Total Bilirubin 1.0, Aspartate Amino Transf (AST/ SGOT) 87H, Alanine Aminotransferase (ALT/SGPT) 75, Alkaline Phosphatase 473H, Total Protein 5.4L, Albumin 1.2L, Globulin 4.2, Albumin/Globulin Ratio 0.3L, Vitamin B12 Level 1642H, Folate 15.2 09/18/17 09:35: Arterial Blood pH 7.337L, Arterial Blood Partial Pressure CO2 39.3, Arterial Blood Partial Pressure O2 65.0L, Arterial Blood HCO3 20.6L, Arterial Blood Oxygen Saturation 92.4, Arterial Blood Base Excess -4.8, Luis A Test Positive 09/18/17 21:25: Haptoglobin [Pending], PTT Mixing Study [Pending], APTT Patient/Control Mix [ Pending], Mix PTT Incubation Time [Pending], Mix PTT Normal/Saline 1:1 Immediate [Pending], Thrombin Time Normal Plasma [Pending], Fibrinogen [Pending] , Homocystine [Pending], Heparin-PF4 Antibody Screen [Pending] Height (Feet): 5 Height (Inches): 0.00 Weight (Pounds): 94 Objective WDWN NCAT supple CTA RRR abd soft confused ARNULFO DURON Sep 18, 2017 22:45
[2017-09-19] VITALS (25 sets, daily range): BP systolic 94–134; BP diastolic 35–90
[2017-09-19] MEDS: NovoLOG Insulin Flexpen SUBQ SCH ×4 (00:08→18:13)
[2017-09-19] MEDS: Vancomycin 750mg/NS 250ml 250 ML IVPB SCH ×2 (00:35→13:13)
[2017-09-19] MEDS: dilTIAZem HCl 30mg tab NG SCH ×3 (05:35→21:08)
[2017-09-19 06:36] LABS: HEMATOCRIT 26.4 % (37.0-47.0); HEMOGLOBIN 8.5 G/DL (12.0-16.0); MEAN CORPUSCULAR VOLUME 99 FL (80-99); PLATELET COUNT 14 K/UL (150-450); RED BLOOD COUNT 2.66 M/UL (4.20-5.40); WHITE BLOOD COUNT 19.1 K/UL (4.8-10.8)
[2017-09-19 07:10] LABS: ALANINE AMINOTRANSFERASE 68 U/L (12-78); ALBUMIN 1.2 G/DL (3.4-5.0); ALBUMIN/GLOBULIN RATIO 0.3 (1.0-2.7); ALKALINE PHOSPHATASE 457 U/L (46-116); ANION GAP 6 mmol/L (5-15); ASPARTATE AMINO TRANSFERASE 70 U/L (15-37); BLOOD UREA NITROGEN 62 mg/dL (7-18); CARBON DIOXIDE 22 MMOL/L (21-32); CHLORIDE 122 MMOL/L (98-107); POTASSIUM 4.4 MMOL/L (3.5-5.1); SODIUM 150 MMOL/L (136-145)
[2017-09-19] MEDS: Pantoprazole Inj IV SCH (09:12)
--- NOTE | 2017-09-19 10:24 | Nephrology Progress Note ---
Assessment/Plan Problem List: (1) ARDS (adult respiratory distress syndrome) (2) Electrolyte imbalance (3) Thrombocytopenia Assessment Platelets 42016 (1) ARDS (adult respiratory distress syndrome) (2) Aspiration pneumonia (3) Protein-calorie malnutrition, severe (4) Diabetes mellitus (5) Anemia , aplastic by history (6) DM (7) UTI (8) Electrolyte imbalance (9) HTN (10) Depression (11) RA . Plan on cardiazem water via NGT Adjust BP meds K and Phos supplement as needed Monitor renal parameters and urine output avoid nephrotoxics per orders discussed with RN Left ventricular ejection fraction estimated to be 55 %. Subjective ROS Limited/Unobtainable: Yes Objective Objective Last 24 Hour Vital Signs Date Time Temp Pulse Resp B/P (MAP) Pulse Ox O2 Delivery O2 Flow Rate FiO2 09/19/17 09:15 123 33 70 09/19/17 09:00 119 31 97/37 100 Mechanical Ventilator 70 09/19/17 09:00 70 09/19/17 08:00 98.5 119 31 122/90 100 Mechanical Ventilator 70 98.5 09/19/17 07:12 111 25 70 09/19/17 07:00 109 31 101/35 98 Mechanical Ventilator 70 09/19/17 06:00 109 32 94/42 98 Mechanical Ventilator 70 09/19/17 05:35 114 111/44 09/19/17 05:20 117 30 70 09/19/17 05:00 118 32 111/44 99 Mechanical Ventilator 70 09/19/17 04:00 98.9 126 31 112/47 95 Mechanical Ventilator 70 98.9 09/19/17 04:00 127 09/19/17 04:00 70 09/19/17 03:18 127 36 70 09/19/17 03:00 128 37 103/46 96 Mechanical Ventilator 70 09/19/17 02:00 98.4 126 31 100/43 96 Mechanical Ventilator 70 98.4 09/19/17 01:20 125 35 70 09/19/17 01:00 98.4 123 31 114/50 96 Mechanical Ventilator 70 98.4 09/19/17 00:00 70 09/19/17 00:00 98.0 122 25 105/55 96 Mechanical Ventilator 70 98.0 09/19/17 00:00 111 09/18/17 23:00 120 26 109/56 95 Mechanical Ventilator 70 09/18/17 22:56 114 31 70 09/18/17 22:00 116 26 105/48 95 Mechanical Ventilator 70 09/18/17 21:45 122 113/54 09/18/17 21:00 114 27 118/58 98 Mechanical Ventilator 70 09/18/17 20:48 126 34 70 09/18/17 20:00 115 31 108/68 97 Mechanical Ventilator 70 09/18/17 20:00 70 09/18/17 20:00 128 09/18/17 19:07 132 37 70 09/18/17 19:00 99.2 130 31 109/54 97 Mechanical Ventilator 75 99.2 09/18/17 18:00 99.1 130 31 107/52 97 Mechanical Ventilator 75 99.1 09/18/17 17:29 126 33 75 09/18/17 17:00 131 31 121/54 97 Mechanical Ventilator 75 09/18/17 16:00 129 09/18/17 16:00 75 09/18/17 16:00 98.6 124 25 107/53 96 Mechanical Ventilator 75 98.6 09/18/17 15:18 130 35 75 09/18/17 15:00 130 31 115/46 96 Mechanical Ventilator 75 09/18/17 14:00 99.5 108 25 104/45 96 Mechanical Ventilator 75 99.5 09/18/17 13:33 136 100/43 09/18/17 13:00 99.4 108 25 104/45 96 Mechanical Ventilator 75 99.4 09/18/17 12:41 131 34 75 09/18/17 12:00 127 09/18/17 12:00 108 25 96/43 96 Mechanical Ventilator 75 09/18/17 12:00 75 09/18/17 11:14 127 31 75 09/18/17 11:00 98.4 108 25 106/45 96 Mechanical Ventilator 75 98.4 Intake and Output 09/18/17 09/19/17 19:00 07:00 Intake Total 1060.00 ml 1066.667 ml Output Total 495 ml 670 ml Balance 565.00 ml 396.667 ml Intake Free Water 270 ml 200 ml IV Total 250.00 ml 266.667 ml Tube Feeding 540 ml 540 ml Other 60 ml Output Urine Total 495 ml 670 ml # Bowel Movements 1 Laboratory Tests 09/18/17 21:25: Haptoglobin [Pending], PTT Mixing Study [Pending], APTT Patient/Control Mix [ Pending], Mix PTT Incubation Time [Pending], Mix PTT Normal/Saline 1:1 Immediate [Pending], Thrombin Time Normal Plasma [Pending], Fibrinogen 473H, Homocystine [Pending], Heparin-PF4 Antibody Screen [Pending] 09/19/17 04:00: Arterial Blood pH 7.287L, Arterial Blood Partial Pressure CO2 42.2, Arterial Blood Partial Pressure O2 69.8L, Arterial Blood HCO3 19.7L, Arterial Blood Oxygen Saturation 92.1, Arterial Blood Base Excess -6.5, Luis A Test Positive 09/19/17 06:10: White Blood Count 19.1H, Red Blood Count 2.66L, Hemoglobin 8.5L, Hematocrit 26.4L, Mean Corpuscular Volume 99, Mean Corpuscular Hemoglobin 32.2H, Mean Corpuscular Hemoglobin Concent 32.4, Red Cell Distribution Width 17.0H, Platelet Count 14L, Mean Platelet Volume 15.5H, Neutrophils (%) (Auto) , Lymphocytes (%) (Auto) , Monocytes (%) (Auto) , Eosinophils (%) (Auto) , Basophils (%) (Auto) , Differential Total Cells Counted 100, Neutrophils % ( Manual) 88H, Lymphocytes % (Manual) 3L, Monocytes % (Manual) 8, Eosinophils % ( Manual) 1, Basophils % (Manual) 0, Band Neutrophils 0, Nucleated Red Blood Cells 3, Platelet Estimate DecreasedL, Platelet Morphology Normal, Polychromasia 1+, Hypochromasia 1+, Anisocytosis 1+, Sodium Level 150H, Potassium Level 4.4, Chloride Level 122H, Carbon Dioxide Level 22, Anion Gap 6, Blood Urea Nitrogen 62H, Creatinine 1.0, Estimat Glomerular Filtration Rate , Glucose Level 187H, Calcium Level 8.0L, Phosphorus Level 3.0, Magnesium Level 2.1, Total Bilirubin 1.0, Aspartate Amino Transf (AST/SGOT) 70H, Alanine Aminotransferase (ALT/SGPT) 68, Alkaline Phosphatase 457H, Total Protein 5.0L, Albumin 1.2L, Globulin 3.8, Albumin/Globulin Ratio 0.3L Height (Feet): 5 Height (Inches): 0.00 Weight (Pounds): 95 General Appearance: no apparent distress Cardiovascular: tachycardia Respiratory/Chest: decreased breath sounds Abdomen: soft YAEL HANSEN Sep 19, 2017 10:24
--- NOTE | 2017-09-19 10:33 | Pulmonolgy Critical Care Note ---
Critical Care - Asmt/Plan Problems: (1) ARDS (adult respiratory distress syndrome) (2) Aspiration pneumonia (3) Protein-calorie malnutrition, severe (4) Diabetes mellitus (5) Anemia Assessment/Plan: improving overall Respiratory: monitor respiratory rate, adjust FIO2, CXR Cardiac: continue to monitor HR/BP Renal: F/U I&O, keep IV fluid Infectious Disease: check cultures Gastrointestinal: continue feedings/current rate, hold feedings Endocrine: monitor blood sugar, check TSH Hematologic: monitor H/H, transfuse if hgb<8.5 Neurologic: PRN Ativan, keep patient comfortable Prophylaxis: Protonix Disposition: keep in ICU Time Spent (Minutes): 40 Notes Reviewed: cardio Discussed with: nurses, consultants, upper caseralteration manager - Objective Last 24 Hour Vital Signs Date Time Temp Pulse Resp B/P (MAP) Pulse Ox O2 Delivery O2 Flow Rate FiO2 09/19/17 09:15 123 33 70 09/19/17 09:00 119 31 97/37 100 Mechanical Ventilator 70 09/19/17 09:00 70 09/19/17 08:00 98.5 119 31 122/90 100 Mechanical Ventilator 70 98.5 09/19/17 07:12 111 25 70 09/19/17 07:00 109 31 101/35 98 Mechanical Ventilator 70 09/19/17 06:00 109 32 94/42 98 Mechanical Ventilator 70 09/19/17 05:35 114 111/44 09/19/17 05:20 117 30 70 09/19/17 05:00 118 32 111/44 99 Mechanical Ventilator 70 09/19/17 04:00 98.9 126 31 112/47 95 Mechanical Ventilator 70 98.9 09/19/17 04:00 127 09/19/17 04:00 70 09/19/17 03:18 127 36 70 09/19/17 03:00 128 37 103/46 96 Mechanical Ventilator 70 09/19/17 02:00 98.4 126 31 100/43 96 Mechanical Ventilator 70 98.4 09/19/17 01:20 125 35 70 09/19/17 01:00 98.4 123 31 114/50 96 Mechanical Ventilator 70 98.4 09/19/17 00:00 70 09/19/17 00:00 98.0 122 25 105/55 96 Mechanical Ventilator 70 98.0 09/19/17 00:00 111 09/18/17 23:00 120 26 109/56 95 Mechanical Ventilator 70 09/18/17 22:56 114 31 70 09/18/17 22:00 116 26 105/48 95 Mechanical Ventilator 70 09/18/17 21:45 122 113/54 09/18/17 21:00 114 27 118/58 98 Mechanical Ventilator 70 09/18/17 20:48 126 34 70 09/18/17 20:00 115 31 108/68 97 Mechanical Ventilator 70 09/18/17 20:00 70 09/18/17 20:00 128 09/18/17 19:07 132 37 70 09/18/17 19:00 99.2 130 31 109/54 97 Mechanical Ventilator 75 99.2 09/18/17 18:00 99.1 130 31 107/52 97 Mechanical Ventilator 75 99.1 09/18/17 17:29 126 33 75 09/18/17 17:00 131 31 121/54 97 Mechanical Ventilator 75 09/18/17 16:00 129 09/18/17 16:00 75 09/18/17 16:00 98.6 124 25 107/53 96 Mechanical Ventilator 75 98.6 09/18/17 15:18 130 35 75 09/18/17 15:00 130 31 115/46 96 Mechanical Ventilator 75 09/18/17 14:00 99.5 108 25 104/45 96 Mechanical Ventilator 75 99.5 09/18/17 13:33 136 100/43 09/18/17 13:00 99.4 108 25 104/45 96 Mechanical Ventilator 75 99.4 09/18/17 12:41 131 34 75 09/18/17 12:00 127 09/18/17 12:00 108 25 96/43 96 Mechanical Ventilator 75 09/18/17 12:00 75 09/18/17 11:14 127 31 75 09/18/17 11:00 98.4 108 25 106/45 96 Mechanical Ventilator 75 98.4 Status: awake Condition: critical HEENT: atraumatic Neck: full ROM Lungs: chest wall tender Heart: HR/BP stable, regular Abdomen: soft, active bowel sounds, feeding tube Extremities: edema Decubiti: location Accucheck: 182 Critical Care - Subjective ROS Limited/Unobtainable: Yes ICU Day: 8 Intubation Day: 8 Condition: critical EKG Rhythm: Sinus Rhythm FI02: 70 Vent Support Breath Rate: 18 Vent Support Mode: AC Vent Tidal Volume: 500 Sputum Amount: Small PEEP: 7.0 PIP: 45 Tube Feeding Amount: 45 I&O: Intake and Output 09/18/17 09/19/17 19:00 07:00 Intake Total 1060.00 ml 1066.667 ml Output Total 495 ml 670 ml Balance 565.00 ml 396.667 ml Intake Free Water 270 ml 200 ml IV Total 250.00 ml 266.667 ml Tube Feeding 540 ml 540 ml Other 60 ml Output Urine Total 495 ml 670 ml # Bowel Movements 1 CXR: improving, ET in good place ET-Tube: 7.5 ET Position: 21 Labs: Laboratory Tests Test 09/18/17 21:25 09/19/17 04:00 09/19/17 06:10 Haptoglobin Pending PTT Mixing Study Pending APTT Patient/Control Mix Pending Mix PTT Incubation Time Pending Mix PTT Normal/Saline 1:1 Immediate Pending Thrombin Time Normal Plasma Pending Fibrinogen 473 mg/dL (200-400) H Homocystine Pending Heparin-PF4 Antibody Screen Pending Arterial Blood pH 7.287 (7.350-7.450) Arterial Blood Partial Pressure CO2 42.2 mmHg (35.0-45.0) Arterial Blood Partial Pressure O2 69.8 mmHg (75.0-100.0) L Arterial Blood HCO3 19.7 mmol/L (22.0-26.0) L Arterial Blood Oxygen Saturation 92.1 % (92.0-98.0) Arterial Blood Base Excess -6.5 Luis A Test Positive White Blood Count 19.1 K/UL (4.8-10.8) H Red Blood Count 2.66 M/UL (4.20-5.40) L Hemoglobin 8.5 G/DL (12.0-16.0) L Hematocrit 26.4 % (37.0-47.0) L Mean Corpuscular Volume 99 FL (80-99) Mean Corpuscular Hemoglobin 32.2 PG (27.0-31.0) H Mean Corpuscular Hemoglobin Concent 32.4 G/DL (32.0-36.0) Red Cell Distribution Width 17.0 % (11.6-14.8) H Platelet Count 14 K/UL (150-450) L Mean Platelet Volume 15.5 FL (6.5-10.1) H Neutrophils (%) (Auto) % (45.0-75.0) Lymphocytes (%) (Auto) % (20.0-45.0) Monocytes (%) (Auto) % (1.0-10.0) Eosinophils (%) (Auto) % (0.0-3.0) Basophils (%) (Auto) % (0.0-2.0) Differential Total Cells Counted 100 Neutrophils % (Manual) 88 % (45-75) H Lymphocytes % (Manual) 3 % (20-45) L Monocytes % (Manual) 8 % (1-10) Eosinophils % (Manual) 1 % (0-3) Basophils % (Manual) 0 % (0-2) Band Neutrophils 0 % (0-8) Nucleated Red Blood Cells 3 /100 WBC Platelet Estimate Decreased L Platelet Morphology Normal Polychromasia 1+ Hypochromasia 1+ Anisocytosis 1+ Sodium Level 150 MMOL/L (136-145) H Potassium Level 4.4 MMOL/L (3.5-5.1) Chloride Level 122 MMOL/L (98-107) H Carbon Dioxide Level 22 MMOL/L (21-32) Anion Gap 6 mmol/L (5-15) Blood Urea Nitrogen 62 mg/dL (7-18) H Creatinine 1.0 MG/DL (0.55-1.30) Estimat Glomerular Filtration Rate mL/min (>60) Glucose Level 187 MG/DL (74-106) H Calcium Level 8.0 MG/DL (8.5-10.1) L Phosphorus Level 3.0 MG/DL (2.5-4.9) Magnesium Level 2.1 MG/DL (1.8-2.4) Total Bilirubin 1.0 MG/DL (0.2-1.0) Aspartate Amino Transf (AST/SGOT) 70 U/L (15-37) H Alanine Aminotransferase (ALT/SGPT) 68 U/L (12-78) Alkaline Phosphatase 457 U/L (46-116) H Total Protein 5.0 G/DL (6.4-8.2) L Albumin 1.2 G/DL (3.4-5.0) L Globulin 3.8 g/dL Albumin/Globulin Ratio 0.3 (1.0-2.7) L ARUNA VANEGAS Sep 19, 2017 10:33
--- NOTE | 2017-09-19 11:01 | Diagnostic Imaging Report ---
Indication: Dyspnea Technique: One view of the chest Comparison: 09/18/2017 Findings: Stable satisfactory positions of endotracheal and nasogastric tubes. Bilateral diffuse interstitial and airspace disease persists, unchanged. Normal heart size. There is suggestion of new or increased bilateral pleural effusion Impression: Unchanged diffuse interstitial and airspace edema, over one day New or increased small bilateral pleural effusions
--- NOTE | 2017-09-19 11:58 | Diagnostic Imaging Report ---
APPROVED REPORT CPT Code: 63452 Present Symptoms Shortness of breath BILATERAL: Imaging reveals a patent deep venous system bilaterally. There is no evidence of thrombus within the femoral, popliteal or tibial segments. The greater saphenous veins are also within normal limits. Doppler indicates normal spontaneous flow within these segments.
--- NOTE | 2017-09-19 16:01 | Cardiac Electrophysiology PN ---
Assessment/Plan Assessment/Plan 1. Respiratory failure, due to underlying acute respiratory distress syndrome versus pneumonia,. Intubated on the vent. Already ruled out for myocardial infarction. Still on 70% Fio2 2. Left bundle-branch block. No evidence of advanced heart block. 3. HTN and diastolic dysfunction.On Cardizem 30 tid. DC Adam 4. Hyponatremia. 5. Pneumonia and sepsis on IV antibiotics by Dr. Hunter. 6. History of psychiatric disorder. 7. Anasarca. 3rd spacing 8. Azotemia. DC LAsix DW RN Subjective Subjective Intubated on Vent in ICU unresponsive in sinus tach. Still on 70% Fio2. RN at bedside. Objective Last 24 Hour Vital Signs Date Time Temp Pulse Resp B/P (MAP) Pulse Ox O2 Delivery O2 Flow Rate FiO2 09/19/17 15:00 27 119/44 100 Mechanical Ventilator 70 09/19/17 14:00 98.6 115 28 110/39 100 Mechanical Ventilator 70 98.6 09/19/17 13:16 121 100/42 09/19/17 13:00 111 22 108/43 100 Mechanical Ventilator 70 09/19/17 12:50 118 24 70 09/19/17 12:00 70 09/19/17 12:00 124 09/19/17 12:00 98.8 123 27 100/45 100 Mechanical Ventilator 70 98.8 09/19/17 11:02 124 30 70 09/19/17 11:00 121 30 96/43 100 Mechanical Ventilator 70 09/19/17 10:00 118 27 102/43 100 Mechanical Ventilator 70 09/19/17 09:15 123 33 70 09/19/17 09:00 119 31 97/37 100 Mechanical Ventilator 70 09/19/17 09:00 70 09/19/17 08:00 111 09/19/17 08:00 98.5 119 31 122/90 100 Mechanical Ventilator 70 98.5 09/19/17 07:12 111 25 70 09/19/17 07:00 109 31 101/35 98 Mechanical Ventilator 70 09/19/17 06:00 109 32 94/42 98 Mechanical Ventilator 70 09/19/17 05:35 114 111/44 09/19/17 05:20 117 30 70 09/19/17 05:00 118 32 111/44 99 Mechanical Ventilator 70 09/19/17 04:00 98.9 126 31 112/47 95 Mechanical Ventilator 70 98.9 09/19/17 04:00 127 09/19/17 04:00 70 09/19/17 03:18 127 36 70 09/19/17 03:00 128 37 103/46 96 Mechanical Ventilator 70 09/19/17 02:00 98.4 126 31 100/43 96 Mechanical Ventilator 70 98.4 09/19/17 01:20 125 35 70 09/19/17 01:00 98.4 123 31 114/50 96 Mechanical Ventilator 70 98.4 09/19/17 00:00 70 09/19/17 00:00 98.0 122 25 105/55 96 Mechanical Ventilator 70 98.0 09/19/17 00:00 111 09/18/17 23:00 120 26 109/56 95 Mechanical Ventilator 70 09/18/17 22:56 114 31 70 09/18/17 22:00 116 26 105/48 95 Mechanical Ventilator 70 09/18/17 21:45 122 113/54 09/18/17 21:00 114 27 118/58 98 Mechanical Ventilator 70 09/18/17 20:48 126 34 70 09/18/17 20:00 115 31 108/68 97 Mechanical Ventilator 70 09/18/17 20:00 70 09/18/17 20:00 128 09/18/17 19:07 132 37 70 09/18/17 19:00 99.2 130 31 109/54 97 Mechanical Ventilator 75 99.2 09/18/17 18:00 99.1 130 31 107/52 97 Mechanical Ventilator 75 99.1 09/18/17 17:29 126 33 75 09/18/17 17:00 131 31 121/54 97 Mechanical Ventilator 75 09/18/17 16:00 129 09/18/17 16:00 75 09/18/17 16:00 98.6 124 25 107/53 96 Mechanical Ventilator 75 98.6 Intake and Output 09/18/17 09/19/17 19:00 07:00 Intake Total 1060.00 ml 1066.667 ml Output Total 495 ml 670 ml Balance 565.00 ml 396.667 ml Intake Free Water 270 ml 200 ml IV Total 250.00 ml 266.667 ml Tube Feeding 540 ml 540 ml Other 60 ml Output Urine Total 495 ml 670 ml # Bowel Movements 1 Laboratory Tests Test 09/18/17 21:25 09/19/17 04:00 3/9/18 06:10 Haptoglobin Pending PTT Mixing Study Pending APTT Patient/Control Mix Pending Mix PTT Incubation Time Pending Mix PTT Normal/Saline 1:1 Immediate Pending Thrombin Time Normal Plasma Pending Fibrinogen 473 mg/dL (200-400) H Homocystine Pending Heparin-PF4 Antibody Screen Pending Arterial Blood pH 7.287 (7.350-7.450) Arterial Blood Partial Pressure CO2 42.2 mmHg (35.0-45.0) Arterial Blood Partial Pressure O2 69.8 mmHg (75.0-100.0) L Arterial Blood HCO3 19.7 mmol/L (22.0-26.0) L Arterial Blood Oxygen Saturation 92.1 % (92.0-98.0) Arterial Blood Base Excess -6.5 Luis A Test Positive White Blood Count 19.1 K/UL (4.8-10.8) H Red Blood Count 2.66 M/UL (4.20-5.40) L Hemoglobin 8.5 G/DL (12.0-16.0) L Hematocrit 26.4 % (37.0-47.0) L Mean Corpuscular Volume 99 FL (80-99) Mean Corpuscular Hemoglobin 32.2 PG (27.0-31.0) H Mean Corpuscular Hemoglobin Concent 32.4 G/DL (32.0-36.0) Red Cell Distribution Width 17.0 % (11.6-14.8) H Platelet Count 14 K/UL (150-450) L Mean Platelet Volume 15.5 FL (6.5-10.1) H Neutrophils (%) (Auto) % (45.0-75.0) Lymphocytes (%) (Auto) % (20.0-45.0) Monocytes (%) (Auto) % (1.0-10.0) Eosinophils (%) (Auto) % (0.0-3.0) Basophils (%) (Auto) % (0.0-2.0) Differential Total Cells Counted 100 Neutrophils % (Manual) 88 % (45-75) H Lymphocytes % (Manual) 3 % (20-45) L Monocytes % (Manual) 8 % (1-10) Eosinophils % (Manual) 1 % (0-3) Basophils % (Manual) 0 % (0-2) Band Neutrophils 0 % (0-8) Nucleated Red Blood Cells 3 /100 WBC Platelet Estimate Decreased L Platelet Morphology Normal Polychromasia 1+ Hypochromasia 1+ Anisocytosis 1+ Sodium Level 150 MMOL/L (136-145) H Potassium Level 4.4 MMOL/L (3.5-5.1) Chloride Level 122 MMOL/L (98-107) H Carbon Dioxide Level 22 MMOL/L (21-32) Anion Gap 6 mmol/L (5-15) Blood Urea Nitrogen 62 mg/dL (7-18) H Creatinine 1.0 MG/DL (0.55-1.30) Estimat Glomerular Filtration Rate mL/min (>60) Glucose Level 187 MG/DL (74-106) H Calcium Level 8.0 MG/DL (8.5-10.1) L Phosphorus Level 3.0 MG/DL (2.5-4.9) Magnesium Level 2.1 MG/DL (1.8-2.4) Total Bilirubin 1.0 MG/DL (0.2-1.0) Aspartate Amino Transf (AST/SGOT) 70 U/L (15-37) H Alanine Aminotransferase (ALT/SGPT) 68 U/L (12-78) Alkaline Phosphatase 457 U/L (46-116) H C-Reactive Protein, Quantitative 67.2 mg/dL (0.00-0.90) H Total Protein 5.0 G/DL (6.4-8.2) L Albumin 1.2 G/DL (3.4-5.0) L Globulin 3.8 g/dL Albumin/Globulin Ratio 0.3 (1.0-2.7) L Objective HEAD AND NECK: No JVD. Orally intubated. LUNGS: Coarse rhonchi bilaterally CARDIOVASCULAR: Tachy S1 and S2. ABDOMEN: Soft. EXTREMITIES: 1+ pitting edema. ROLF OLIVIA Sep 19, 2017 16:01
--- NOTE | 2017-09-19 18:09 | Diagnostic Imaging Report ---
Indication: Abnormal liver function tests function tests Technique: Tejeda-scale and duplex images of the upper abdomen were obtained Comparison: none Findings: There are bilateral pleural effusions Gallbladder demonstrates sludge. No definite stones or pericholecystic fluid. Gallbladder wall is thickened. Common bile duct measures 7 mm in diameter. No intrahepatic biliary ductal dilatation. Liver demonstrates coarsened echogenicity. No focal abnormality Portal vein and hepatic veins are patent. Pancreas is unremarkable. Spleen is unremarkable. Left kidney measures 9.2 cm in length. Right kidney measures 9.8 cm length. Both kidneys demonstrate normal echogenicity. There is no hydronephrosis. Left kidney demonstrates a small lower pole cyst and a small upper pole cyst . Non-aneurysmal abdominal aorta . Impression: Bilateral pleural effusions Gallbladder sludge. No definite stones. Bladder wall thickening may be edema due to whatever process is causing the bilateral pleural effusions, but acute acalculous cholecystitis is also a possibility. Correlate with clinical findings, consider nuclear medicine hepatobiliary scan if there is high clinical suspicion Negative for dilated ducts Coarsened heterogeneous hepatic echogenicity, consistent with hepatocellular disease, otherwise nonspecific Incidental finding left renal cysts
--- NOTE | 2017-09-19 19:38 | Infectious Diseases Prog Note ---
Assessment/Plan Assessment/Plan ASSESSMENT: The patient is a 76-year-old female w Fever, low grade Leukocytosis increased Community-acquired vs healthcare-associated pneumonia (the patient has been recently hospitalized in [facility]). 09/19 xray : Unchanged diffuse interstitial and airspace edema, Probable influenza despite of negative influenza screening test. Abnormal liver function tests, rule out biliary disease Ultrasound of the abdomen : Gallbladder sludge. No definite stones. Bladder wall thickening may be edema due to whatever process is causing the bilateral pleural effusions, but acute acalculous cholecystitis is also a possibilit US : Hep panel : neg Probable UTI UCx : E coli TCP VDRF / ARDS HTN GERD History of auditory hallucination. Depression. Anemia. Rheumatoid arthritis. History of gastritis. PLAN: continue the patient on Tamiflu d# 8 / 7 -10 , start Merrem d# 1 09/19 SP vancomycin and Levaquin d# 18 Monitor CBC. Monitor BMP. Monitor chest x-ray HIDA Subjective Allergies: Coded Allergies: No Known Allergies (Verified , 11/18/08) Subjective on vent Objective Vital Signs Last 24 Hour Vital Signs Date Time Temp Pulse Resp B/P (MAP) Pulse Ox O2 Delivery O2 Flow Rate FiO2 09/19/17 18:57 112 32 70 09/19/17 18:00 110 32 106/40 100 Mechanical Ventilator 70 09/19/17 17:16 111 29 70 09/19/17 17:00 110 30 124/53 100 Mechanical Ventilator 70 09/19/17 16:30 119 09/19/17 16:00 98.9 120 30 109/48 100 Mechanical Ventilator 70 98.9 09/19/17 16:00 70 09/19/17 15:22 100 24 70 09/19/17 15:00 27 119/44 100 Mechanical Ventilator 70 09/19/17 14:00 98.6 115 28 110/39 100 Mechanical Ventilator 70 98.6 09/19/17 13:16 121 100/42 09/19/17 13:00 111 22 108/43 100 Mechanical Ventilator 70 09/19/17 12:50 118 24 70 09/19/17 12:00 70 09/19/17 12:00 124 09/19/17 12:00 98.8 123 27 100/45 100 Mechanical Ventilator 70 98.8 09/19/17 11:02 124 30 70 09/19/17 11:00 121 30 96/43 100 Mechanical Ventilator 70 09/19/17 10:00 118 27 102/43 100 Mechanical Ventilator 70 09/19/17 09:15 123 33 70 09/19/17 09:00 119 31 97/37 100 Mechanical Ventilator 70 09/19/17 09:00 70 09/19/17 08:00 111 09/19/17 08:00 98.5 119 31 122/90 100 Mechanical Ventilator 70 98.5 09/19/17 07:12 111 25 70 09/19/17 07:00 109 31 101/35 98 Mechanical Ventilator 70 09/19/17 06:00 109 32 94/42 98 Mechanical Ventilator 70 09/19/17 05:35 114 111/44 09/19/17 05:20 117 30 70 09/19/17 05:00 118 32 111/44 99 Mechanical Ventilator 70 09/19/17 04:00 98.9 126 31 112/47 95 Mechanical Ventilator 70 98.9 09/19/17 04:00 127 09/19/17 04:00 70 09/19/17 03:18 127 36 70 09/19/17 03:00 128 37 103/46 96 Mechanical Ventilator 70 09/19/17 02:00 98.4 126 31 100/43 96 Mechanical Ventilator 70 98.4 09/19/17 01:20 125 35 70 09/19/17 01:00 98.4 123 31 114/50 96 Mechanical Ventilator 70 98.4 09/19/17 00:00 70 09/19/17 00:00 98.0 122 25 105/55 96 Mechanical Ventilator 70 98.0 09/19/17 00:00 111 09/18/17 23:00 120 26 109/56 95 Mechanical Ventilator 70 09/18/17 22:56 114 31 70 09/18/17 22:00 116 26 105/48 95 Mechanical Ventilator 70 09/18/17 21:45 122 113/54 09/18/17 21:00 114 27 118/58 98 Mechanical Ventilator 70 09/18/17 20:48 126 34 70 09/18/17 20:00 115 31 108/68 97 Mechanical Ventilator 70 09/18/17 20:00 70 09/18/17 20:00 128 Height (Feet): 5 Height (Inches): 0.00 Weight (Pounds): 95 HEENT: atraumatic Respiratory/Chest: accessory muscle use Cardiovascular: regularly irregular Abdomen: non distended Laboratory Tests Test 09/18/17 21:25 09/19/17 04:00 09/19/17 06:10 Haptoglobin Pending PTT Mixing Study Pending APTT Patient/Control Mix Pending Mix PTT Incubation Time Pending Mix PTT Normal/Saline 1:1 Immediate Pending Thrombin Time Normal Plasma Pending Fibrinogen 473 mg/dL (200-400) H Homocystine Pending Heparin-PF4 Antibody Screen Pending Arterial Blood pH 7.287 (7.350-7.450) Arterial Blood Partial Pressure CO2 42.2 mmHg (35.0-45.0) Arterial Blood Partial Pressure O2 69.8 mmHg (75.0-100.0) L Arterial Blood HCO3 19.7 mmol/L (22.0-26.0) L Arterial Blood Oxygen Saturation 92.1 % (92.0-98.0) Arterial Blood Base Excess -6.5 Luis A Test Positive White Blood Count 19.1 K/UL (4.8-10.8) H Red Blood Count 2.66 M/UL (4.20-5.40) L Hemoglobin 8.5 G/DL (12.0-16.0) L Hematocrit 26.4 % (37.0-47.0) L Mean Corpuscular Volume 99 FL (80-99) Mean Corpuscular Hemoglobin 32.2 PG (27.0-31.0) H Mean Corpuscular Hemoglobin Concent 32.4 G/DL (32.0-36.0) Red Cell Distribution Width 17.0 % (11.6-14.8) H Platelet Count 14 K/UL (150-450) L Mean Platelet Volume 15.5 FL (6.5-10.1) H Neutrophils (%) (Auto) % (45.0-75.0) Lymphocytes (%) (Auto) % (20.0-45.0) Monocytes (%) (Auto) % (1.0-10.0) Eosinophils (%) (Auto) % (0.0-3.0) Basophils (%) (Auto) % (0.0-2.0) Differential Total Cells Counted 100 Neutrophils % (Manual) 88 % (45-75) H Lymphocytes % (Manual) 3 % (20-45) L Monocytes % (Manual) 8 % (1-10) Eosinophils % (Manual) 1 % (0-3) Basophils % (Manual) 0 % (0-2) Band Neutrophils 0 % (0-8) Nucleated Red Blood Cells 3 /100 WBC Platelet Estimate Decreased L Platelet Morphology Normal Polychromasia 1+ Hypochromasia 1+ Anisocytosis 1+ Sodium Level 150 MMOL/L (136-145) H Potassium Level 4.4 MMOL/L (3.5-5.1) Chloride Level 122 MMOL/L (98-107) H Carbon Dioxide Level 22 MMOL/L (21-32) Anion Gap 6 mmol/L (5-15) Blood Urea Nitrogen 62 mg/dL (7-18) H Creatinine 1.0 MG/DL (0.55-1.30) Estimat Glomerular Filtration Rate mL/min (>60) Glucose Level 187 MG/DL (74-106) H Calcium Level 8.0 MG/DL (8.5-10.1) L Phosphorus Level 3.0 MG/DL (2.5-4.9) Magnesium Level 2.1 MG/DL (1.8-2.4) Total Bilirubin 1.0 MG/DL (0.2-1.0) Aspartate Amino Transf (AST/SGOT) 70 U/L (15-37) H Alanine Aminotransferase (ALT/SGPT) 68 U/L (12-78) Alkaline Phosphatase 457 U/L (46-116) H C-Reactive Protein, Quantitative 67.2 mg/dL (0.00-0.90) H Total Protein 5.0 G/DL (6.4-8.2) L Albumin 1.2 G/DL (3.4-5.0) L Globulin 3.8 g/dL Albumin/Globulin Ratio 0.3 (1.0-2.7) L Current Medications Medications (Trade) Dose Ordered Sig/Hermes Route PRN Reason Start Time Stop Time Status Last Admin Dose Admin Acetaminophen (Tylenol) 650 mg EVERY 6 HOURS PRN NG Fever/Headache/Mild Pain 09/13/17 20:45 10/13/17 20:44 09/15/17 20:53 Clonidine HCl (Catapres Tab) 0.1 mg Q4H PRN ORAL SBP>160 UNRELIEVED BY HYDRALAZ 09/16/17 16:45 10/15/17 16:59 Dextrose (Dextrose 50%) STAT PRN IV Hypoglycemia 09/13/17 15:00 10/13/17 14:59 Diltiazem HCl (Cardizem) 30 mg EVERY 8 HOURS NG 09/18/17 22:00 10/18/17 21:59 09/19/17 13:16 Insulin Aspart (NovoLOG) EVERY 6 HOURS SUBQ 09/17/17 12:00 10/17/17 11:59 09/19/17 18:13 Levofloxacin 50 ml @ 50 mls/hr QHS IVPB 09/19/17 21:00 09/21/17 21:59 Lorazepam (Ativan 2mg/ml 1ml) 2 mg Q2HR PRN IV For Anxiety 09/12/17 22:00 09/19/17 21:59 09/15/17 11:22 Oseltamivir Phosphate (Tamiflu) 30 mg Q12HR ORAL 09/17/17 21:00 09/22/17 14:00 09/19/17 09:12 Pantoprazole (Protonix) 40 mg DAILY IV 09/13/17 09:00 10/13/17 08:59 09/19/17 09:12 Polyethylene Glycol (Miralax) 17 gm BEDTIME ORAL 09/14/17 21:00 10/14/17 20:59 09/18/17 20:42 Vancomycin HCl (Vanco rx to dose) 1 ea DAILY PRN MISC Per rx protocol 09/11/17 23:15 10/11/17 23:14 Vancomycin/Sodium Chloride 250 ml @ 166.667 mls/hr Q12HR@0100,1300 IVPB 09/17/17 01:00 09/22/17 00:59 09/19/17 13:13 DEBBIE MURRY M.D. Sep 19, 2017 19:38
--- NOTE | 2017-09-19 19:42 | General Progress Note ---
Assessment/Plan Assessment/Plan Assessment - Resp failure / ARDS - Abnormal LFT with rapid resolution - Anemia with OB (+) stools - thrombocytopenia - Malnutrition Recommendations - NGT feeds - Elevate HOB - Vent care - Monitor H&H - PPI Subjective Allergies: Coded Allergies: No Known Allergies (Verified , 11/18/08) Subjective on Vent poorly communicative U/S noted no splenomegaly Objective Last 24 Hour Vital Signs Date Time Temp Pulse Resp B/P (MAP) Pulse Ox O2 Delivery O2 Flow Rate FiO2 09/19/17 18:57 112 32 70 09/19/17 18:00 110 32 106/40 100 Mechanical Ventilator 70 09/19/17 17:16 111 29 70 09/19/17 17:00 110 30 124/53 100 Mechanical Ventilator 70 09/19/17 16:30 119 09/19/17 16:00 98.9 120 30 109/48 100 Mechanical Ventilator 70 98.9 09/19/17 16:00 70 09/19/17 15:22 100 24 70 09/19/17 15:00 27 119/44 100 Mechanical Ventilator 70 09/19/17 14:00 98.6 115 28 110/39 100 Mechanical Ventilator 70 98.6 09/19/17 13:16 121 100/42 09/19/17 13:00 111 22 108/43 100 Mechanical Ventilator 70 09/19/17 12:50 118 24 70 09/19/17 12:00 70 09/19/17 12:00 124 09/19/17 12:00 98.8 123 27 100/45 100 Mechanical Ventilator 70 98.8 09/19/17 11:02 124 30 70 09/19/17 11:00 121 30 96/43 100 Mechanical Ventilator 70 09/19/17 10:00 118 27 102/43 100 Mechanical Ventilator 70 09/19/17 09:15 123 33 70 09/19/17 09:00 119 31 97/37 100 Mechanical Ventilator 70 09/19/17 09:00 70 09/19/17 08:00 111 09/19/17 08:00 98.5 119 31 122/90 100 Mechanical Ventilator 70 98.5 09/19/17 07:12 111 25 70 09/19/17 07:00 109 31 101/35 98 Mechanical Ventilator 70 09/19/17 06:00 109 32 94/42 98 Mechanical Ventilator 70 09/19/17 05:35 114 111/44 09/19/17 05:20 117 30 70 09/19/17 05:00 118 32 111/44 99 Mechanical Ventilator 70 09/19/17 04:00 98.9 126 31 112/47 95 Mechanical Ventilator 70 98.9 09/19/17 04:00 127 09/19/17 04:00 70 09/19/17 03:18 127 36 70 09/19/17 03:00 128 37 103/46 96 Mechanical Ventilator 70 09/19/17 02:00 98.4 126 31 100/43 96 Mechanical Ventilator 70 98.4 09/19/17 01:20 125 35 70 09/19/17 01:00 98.4 123 31 114/50 96 Mechanical Ventilator 70 98.4 09/19/17 00:00 70 09/19/17 00:00 98.0 122 25 105/55 96 Mechanical Ventilator 70 98.0 09/19/17 00:00 111 09/18/17 23:00 120 26 109/56 95 Mechanical Ventilator 70 09/18/17 22:56 114 31 70 09/18/17 22:00 116 26 105/48 95 Mechanical Ventilator 70 09/18/17 21:45 122 113/54 09/18/17 21:00 114 27 118/58 98 Mechanical Ventilator 70 09/18/17 20:48 126 34 70 09/18/17 20:00 115 31 108/68 97 Mechanical Ventilator 70 09/18/17 20:00 70 09/18/17 20:00 128 Intake and Output 09/18/17 09/19/17 19:00 07:00 Intake Total 1060.00 ml 1066.667 ml Output Total 495 ml 670 ml Balance 565.00 ml 396.667 ml Intake Free Water 270 ml 200 ml IV Total 250.00 ml 266.667 ml Tube Feeding 540 ml 540 ml Other 60 ml Output Urine Total 495 ml 670 ml # Bowel Movements 1 Laboratory Tests 09/18/17 21:25: Haptoglobin [Pending], PTT Mixing Study [Pending], APTT Patient/Control Mix [ Pending], Mix PTT Incubation Time [Pending], Mix PTT Normal/Saline 1:1 Immediate [Pending], Thrombin Time Normal Plasma [Pending], Fibrinogen 473H, Homocystine [Pending], Heparin-PF4 Antibody Screen [Pending] 09/19/17 04:00: Arterial Blood pH 7.287L, Arterial Blood Partial Pressure CO2 42.2, Arterial Blood Partial Pressure O2 69.8L, Arterial Blood HCO3 19.7L, Arterial Blood Oxygen Saturation 92.1, Arterial Blood Base Excess -6.5, Luis A Test Positive 09/19/17 06:10: White Blood Count 19.1H, Red Blood Count 2.66L, Hemoglobin 8.5L, Hematocrit 26.4L, Mean Corpuscular Volume 99, Mean Corpuscular Hemoglobin 32.2H, Mean Corpuscular Hemoglobin Concent 32.4, Red Cell Distribution Width 17.0H, Platelet Count 14L, Mean Platelet Volume 15.5H, Neutrophils (%) (Auto) , Lymphocytes (%) (Auto) , Monocytes (%) (Auto) , Eosinophils (%) (Auto) , Basophils (%) (Auto) , Differential Total Cells Counted 100, Neutrophils % ( Manual) 88H, Lymphocytes % (Manual) 3L, Monocytes % (Manual) 8, Eosinophils % ( Manual) 1, Basophils % (Manual) 0, Band Neutrophils 0, Nucleated Red Blood Cells 3, Platelet Estimate DecreasedL, Platelet Morphology Normal, Polychromasia 1+, Hypochromasia 1+, Anisocytosis 1+, Sodium Level 150H, Potassium Level 4.4, Chloride Level 122H, Carbon Dioxide Level 22, Anion Gap 6, Blood Urea Nitrogen 62H, Creatinine 1.0, Estimat Glomerular Filtration Rate , Glucose Level 187H, Calcium Level 8.0L, Phosphorus Level 3.0, Magnesium Level 2.1, Total Bilirubin 1.0, Aspartate Amino Transf (AST/SGOT) 70H, Alanine Aminotransferase (ALT/SGPT) 68, Alkaline Phosphatase 457H, C-Reactive Protein, Quantitative 67.2H, Total Protein 5.0L, Albumin 1.2L, Globulin 3.8, Albumin/ Globulin Ratio 0.3L Height (Feet): 5 Height (Inches): 0.00 Weight (Pounds): 95 Objective WDWN NCAT supple CTA RRR abd soft confused KEKEARNULFO FOFANA Sep 19, 2017 19:42
--- NOTE | 2017-09-19 20:01 | Internal Med Progress Note ---
Subjective Date of Service: Sep 19, 2017 Physician Name Sina Bowens Attending Physician Jesus Barahona MD Current Medications Medications (Trade) Dose Ordered Sig/Hermes Route PRN Reason Start Time Stop Time Status Last Admin Dose Admin Acetaminophen (Tylenol) 650 mg EVERY 6 HOURS PRN NG Fever/Headache/Mild Pain 09/13/17 20:45 10/13/17 20:44 09/15/17 20:53 Clonidine HCl (Catapres Tab) 0.1 mg Q4H PRN ORAL SBP>160 UNRELIEVED BY HYDRALAZ 09/16/17 16:45 10/15/17 16:59 Dextrose (Dextrose 50%) STAT PRN IV Hypoglycemia 09/13/17 15:00 10/13/17 14:59 Diltiazem HCl (Cardizem) 30 mg EVERY 8 HOURS NG 09/18/17 22:00 10/18/17 21:59 09/19/17 13:16 Insulin Aspart (NovoLOG) EVERY 6 HOURS SUBQ 09/17/17 12:00 10/17/17 11:59 09/19/17 18:13 Lorazepam (Ativan 2mg/ml 1ml) 2 mg Q2HR PRN IV For Anxiety 09/12/17 22:00 09/19/17 21:59 09/15/17 11:22 Meropenem 1 gm/ Sodium Chloride 55 ml @ 110 mls/hr Q12HR IVPB 09/19/17 21:00 09/24/17 20:59 Oseltamivir Phosphate (Tamiflu) 30 mg Q12HR ORAL 09/17/17 21:00 09/22/17 14:00 09/19/17 09:12 Pantoprazole (Protonix) 40 mg DAILY IV 09/13/17 09:00 10/13/17 08:59 09/19/17 09:12 Polyethylene Glycol (Miralax) 17 gm BEDTIME ORAL 09/14/17 21:00 10/14/17 20:59 09/18/17 20:42 Allergies: Coded Allergies: No Known Allergies (Verified , 11/18/08) ROS Limited/Unobtainable: Yes Subjective 76 YO F admitted with Shortness of breath, now respiratory failure. Intubated and sedated. Cover for Internal Med-Dr. Barahona. ICU Objective Last Vital Signs Date Time Temp Pulse Resp B/P (MAP) Pulse Ox O2 Delivery O2 Flow Rate FiO2 09/19/17 19:00 111 24 126/43 100 Mechanical Ventilator 70 09/19/17 16:00 98.9 98.9 09/12/17 00:35 15.0 Laboratory Tests Test 09/18/17 21:25 09/19/17 04:00 09/19/17 06:10 Haptoglobin Pending PTT Mixing Study Pending APTT Patient/Control Mix Pending Mix PTT Incubation Time Pending Mix PTT Normal/Saline 1:1 Immediate Pending Thrombin Time Normal Plasma Pending Fibrinogen 473 mg/dL (200-400) H Homocystine Pending Heparin-PF4 Antibody Screen Pending Arterial Blood pH 7.287 (7.350-7.450) Arterial Blood Partial Pressure CO2 42.2 mmHg (35.0-45.0) Arterial Blood Partial Pressure O2 69.8 mmHg (75.0-100.0) L Arterial Blood HCO3 19.7 mmol/L (22.0-26.0) L Arterial Blood Oxygen Saturation 92.1 % (92.0-98.0) Arterial Blood Base Excess -6.5 Luis A Test Positive White Blood Count 19.1 K/UL (4.8-10.8) H Red Blood Count 2.66 M/UL (4.20-5.40) L Hemoglobin 8.5 G/DL (12.0-16.0) L Hematocrit 26.4 % (37.0-47.0) L Mean Corpuscular Volume 99 FL (80-99) Mean Corpuscular Hemoglobin 32.2 PG (27.0-31.0) H Mean Corpuscular Hemoglobin Concent 32.4 G/DL (32.0-36.0) Red Cell Distribution Width 17.0 % (11.6-14.8) H Platelet Count 14 K/UL (150-450) L Mean Platelet Volume 15.5 FL (6.5-10.1) H Neutrophils (%) (Auto) % (45.0-75.0) Lymphocytes (%) (Auto) % (20.0-45.0) Monocytes (%) (Auto) % (1.0-10.0) Eosinophils (%) (Auto) % (0.0-3.0) Basophils (%) (Auto) % (0.0-2.0) Differential Total Cells Counted 100 Neutrophils % (Manual) 88 % (45-75) H Lymphocytes % (Manual) 3 % (20-45) L Monocytes % (Manual) 8 % (1-10) Eosinophils % (Manual) 1 % (0-3) Basophils % (Manual) 0 % (0-2) Band Neutrophils 0 % (0-8) Nucleated Red Blood Cells 3 /100 WBC Platelet Estimate Decreased L Platelet Morphology Normal Polychromasia 1+ Hypochromasia 1+ Anisocytosis 1+ Sodium Level 150 MMOL/L (136-145) H Potassium Level 4.4 MMOL/L (3.5-5.1) Chloride Level 122 MMOL/L (98-107) H Carbon Dioxide Level 22 MMOL/L (21-32) Anion Gap 6 mmol/L (5-15) Blood Urea Nitrogen 62 mg/dL (7-18) H Creatinine 1.0 MG/DL (0.55-1.30) Estimat Glomerular Filtration Rate mL/min (>60) Glucose Level 187 MG/DL (74-106) H Calcium Level 8.0 MG/DL (8.5-10.1) L Phosphorus Level 3.0 MG/DL (2.5-4.9) Magnesium Level 2.1 MG/DL (1.8-2.4) Total Bilirubin 1.0 MG/DL (0.2-1.0) Aspartate Amino Transf (AST/SGOT) 70 U/L (15-37) H Alanine Aminotransferase (ALT/SGPT) 68 U/L (12-78) Alkaline Phosphatase 457 U/L (46-116) H C-Reactive Protein, Quantitative 67.2 mg/dL (0.00-0.90) H Total Protein 5.0 G/DL (6.4-8.2) L Albumin 1.2 G/DL (3.4-5.0) L Globulin 3.8 g/dL Albumin/Globulin Ratio 0.3 (1.0-2.7) L Intake and Output 09/18/17 09/19/17 19:00 07:00 Intake Total 1060.00 ml 1066.667 ml Output Total 495 ml 670 ml Balance 565.00 ml 396.667 ml Intake Free Water 270 ml 200 ml IV Total 250.00 ml 266.667 ml Tube Feeding 540 ml 540 ml Other 60 ml Output Urine Total 495 ml 670 ml # Bowel Movements 1 Objective General Appearance: lethargic, thin EENT: normal ENT inspection Neck: non-tender, normal alignment, supple Cardiovascular: normal peripheral pulses, normal rate, regular rhythm, no gallop/murmur, no JVD Respiratory/Chest: Mechanical vent; respiratory distress, crackles/rales, rhonchi - bilaterally, expiratory wheezing Abdomen: normal bowel sounds, non tender, soft, no organomegaly, no mass Skin: normal pigmentation, warm/dry Assessment/Plan Problem List: (1) HTN (hypertension) Assessment & Plan: Currently hypotensive. (2) Arthritis, rheumatoid (3) Parkinsons disease (4) Aplastic anemia (5) GERD (gastroesophageal reflux disease) (6) Respiratory failure Assessment & Plan: Cont vent per pulmonary (7) Pneumonia (8) Dyspnea (9) Sepsis Assessment & Plan: Blood culture neg. Continue vanco and levaquin per ID (10) ARDS (adult respiratory distress syndrome) Assessment & Plan: See pulmonary note (11) UTI (urinary tract infection) Assessment & Plan: E.Coli. Continue levaquin (12) Anemia Assessment & Plan: S/P Transfusion 2 units PRBC Status: not improved SINA BOWENS Sep 19, 2017 20:00
[2017-09-19] MEDS: Miralax 17gm pkt ORAL SCH (21:00)
[2017-09-19] MEDS: Meropenem 1 GM in NS 55 ML IVPB SCH (21:07)
--- NOTE | 2017-09-19 21:54 | General Progress Note ---
Assessment/Plan Problem List: (1) Aspiration pneumonia ICD Codes: J69.0 - Pneumonitis due to inhalation of food and vomit SNOMED: 452855714 (2) Protein-calorie malnutrition, severe ICD Codes: E43 - Unspecified severe protein-calorie malnutrition SNOMED: 161598763 (3) Diabetes mellitus ICD Codes: E11.9 - Type 2 diabetes mellitus without complications SNOMED: 69420734 (4) ARDS (adult respiratory distress syndrome) ICD Codes: J80 - Acute respiratory distress syndrome SNOMED: 56900360 (5) Anemia ICD Codes: D64.9 - Anemia, unspecified SNOMED: 015251363 (6) Pulmonary edema ICD Codes: J81.1 - Chronic pulmonary edema SNOMED: 36655470 (7) UTI (urinary tract infection) ICD Codes: N39.0 - Urinary tract infection, site not specified SNOMED: 15770050, 797384236 (8) Transaminitis ICD Codes: R74.0 - Nonspecific elevation of levels of transaminase and lactic acid dehydrogenase [LDH] SNOMED: 139420940, 900311528 (9) Respiratory failure ICD Codes: J96.90 - Respiratory failure, unspecified, unspecified whether with hypoxia or hypercapnia SNOMED: 850839725 (10) Arthritis, rheumatoid ICD Codes: M06.9 - Rheumatoid arthritis, unspecified SNOMED: 13023233 (11) Dyspnea ICD Codes: R06.00 - Dyspnea, unspecified SNOMED: 191869900 (12) Parkinsons disease ICD Codes: G20 - Parkinson's disease SNOMED: 39789289 (13) Sepsis ICD Codes: A41.9 - Sepsis, unspecified organism SNOMED: 13682178 (14) GERD (gastroesophageal reflux disease) ICD Codes: K21.9 - Gastro-esophageal reflux disease without esophagitis SNOMED: 728714177 (15) Aplastic anemia ICD Codes: D61.9 - Aplastic anemia, unspecified SNOMED: 654654884 (16) Pneumonia ICD Codes: J18.9 - Pneumonia, unspecified organism SNOMED: 560233625 (17) HTN (hypertension) ICD Codes: I10 - Essential (primary) hypertension SNOMED: 48251977 Assessment/Plan encephalopathy -cont current meds Subjective Allergies: Coded Allergies: No Known Allergies (Verified , 11/18/08) Objective Last 24 Hour Vital Signs Date Time Temp Pulse Resp B/P (MAP) Pulse Ox O2 Delivery O2 Flow Rate FiO2 09/19/17 21:08 108 120/45 09/19/17 21:01 108 25 70 09/19/17 20:00 70 09/19/17 20:00 98.2 109 26 120/54 99 Mechanical Ventilator 70 98.2 09/19/17 19:00 111 24 126/43 100 Mechanical Ventilator 70 09/19/17 18:57 112 32 70 09/19/17 18:00 110 32 106/40 100 Mechanical Ventilator 70 09/19/17 17:16 111 29 70 09/19/17 17:00 110 30 124/53 100 Mechanical Ventilator 70 09/19/17 16:30 119 09/19/17 16:00 98.9 120 30 109/48 100 Mechanical Ventilator 70 98.9 09/19/17 16:00 70 09/19/17 15:22 100 24 70 09/19/17 15:00 27 119/44 100 Mechanical Ventilator 70 09/19/17 14:00 98.6 115 28 110/39 100 Mechanical Ventilator 70 98.6 09/19/17 13:16 121 100/42 09/19/17 13:00 111 22 108/43 100 Mechanical Ventilator 70 09/19/17 12:50 118 24 70 09/19/17 12:00 70 09/19/17 12:00 124 09/19/17 12:00 98.8 123 27 100/45 100 Mechanical Ventilator 70 98.8 09/19/17 11:02 124 30 70 09/19/17 11:00 121 30 96/43 100 Mechanical Ventilator 70 09/19/17 10:00 118 27 102/43 100 Mechanical Ventilator 70 09/19/17 09:15 123 33 70 09/19/17 09:00 119 31 97/37 100 Mechanical Ventilator 70 09/19/17 09:00 70 09/19/17 08:00 111 09/19/17 08:00 98.5 119 31 122/90 100 Mechanical Ventilator 70 98.5 09/19/17 07:12 111 25 70 09/19/17 07:00 109 31 101/35 98 Mechanical Ventilator 70 09/19/17 06:00 109 32 94/42 98 Mechanical Ventilator 70 09/19/17 05:35 114 111/44 09/19/17 05:20 117 30 70 09/19/17 05:00 118 32 111/44 99 Mechanical Ventilator 70 09/19/17 04:00 98.9 126 31 112/47 95 Mechanical Ventilator 70 98.9 09/19/17 04:00 127 09/19/17 04:00 70 09/19/17 03:18 127 36 70 09/19/17 03:00 128 37 103/46 96 Mechanical Ventilator 70 09/19/17 02:00 98.4 126 31 100/43 96 Mechanical Ventilator 70 98.4 09/19/17 01:20 125 35 70 09/19/17 01:00 98.4 123 31 114/50 96 Mechanical Ventilator 70 98.4 09/19/17 00:00 70 09/19/17 00:00 98.0 122 25 105/55 96 Mechanical Ventilator 70 98.0 09/19/17 00:00 111 09/18/17 23:00 120 26 109/56 95 Mechanical Ventilator 70 09/18/17 22:56 114 31 70 09/18/17 22:00 116 26 105/48 95 Mechanical Ventilator 70 Intake and Output 09/18/17 09/19/17 19:00 07:00 Intake Total 1060.00 ml 1066.667 ml Output Total 495 ml 670 ml Balance 565.00 ml 396.667 ml Intake Free Water 270 ml 200 ml IV Total 250.00 ml 266.667 ml Tube Feeding 540 ml 540 ml Other 60 ml Output Urine Total 495 ml 670 ml # Bowel Movements 1 Laboratory Tests 09/19/17 04:00: Arterial Blood pH 7.287L, Arterial Blood Partial Pressure CO2 42.2, Arterial Blood Partial Pressure O2 69.8L, Arterial Blood HCO3 19.7L, Arterial Blood Oxygen Saturation 92.1, Arterial Blood Base Excess -6.5, Luis A Test Positive 09/19/17 06:10: White Blood Count 19.1H, Red Blood Count 2.66L, Hemoglobin 8.5L, Hematocrit 26.4L, Mean Corpuscular Volume 99, Mean Corpuscular Hemoglobin 32.2H, Mean Corpuscular Hemoglobin Concent 32.4, Red Cell Distribution Width 17.0H, Platelet Count 14L, Mean Platelet Volume 15.5H, Neutrophils (%) (Auto) , Lymphocytes (%) (Auto) , Monocytes (%) (Auto) , Eosinophils (%) (Auto) , Basophils (%) (Auto) , Differential Total Cells Counted 100, Neutrophils % ( Manual) 88H, Lymphocytes % (Manual) 3L, Monocytes % (Manual) 8, Eosinophils % ( Manual) 1, Basophils % (Manual) 0, Band Neutrophils 0, Nucleated Red Blood Cells 3, Platelet Estimate DecreasedL, Platelet Morphology Normal, Polychromasia 1+, Hypochromasia 1+, Anisocytosis 1+, Sodium Level 150H, Potassium Level 4.4, Chloride Level 122H, Carbon Dioxide Level 22, Anion Gap 6, Blood Urea Nitrogen 62H, Creatinine 1.0, Estimat Glomerular Filtration Rate , Glucose Level 187H, Calcium Level 8.0L, Phosphorus Level 3.0, Magnesium Level 2.1, Total Bilirubin 1.0, Aspartate Amino Transf (AST/SGOT) 70H, Alanine Aminotransferase (ALT/SGPT) 68, Alkaline Phosphatase 457H, C-Reactive Protein, Quantitative 67.2H, Total Protein 5.0L, Albumin 1.2L, Globulin 3.8, Albumin/ Globulin Ratio 0.3L Height (Feet): 5 Height (Inches): 0.00 Weight (Pounds): 95 Dary Nixon M.D. Sep 19, 2017 21:53
[2017-09-20] VITALS (24 sets, daily range): BP systolic 96–123; BP diastolic 35–68
[2017-09-20] MEDS: NovoLOG Insulin Flexpen SUBQ SCH ×5 (00:06→23:32)
--- NOTE | 2017-09-20 00:30 | Consultation ---
DATE OF CONSULTATION: 09/19/2017 HEMATOLOGY/ONCOLOGY CONSULTATION CONSULTING PHYSICIAN: Johnny iSnha M.D. REQUESTING PHYSICIAN: Jesus Barahona M.D. and Tayler Liu M.D. REASON FOR CONSULTATION: Evaluation of severe thrombocytopenia, leukocytosis, and anemia. IDENTIFICATION DATA: Dear Dr. Barahona, The patient is a pleasant 76-year-old female with past medical history, which is significant for psychiatric disorder, auditory hallucinations, GERD, depression, rheumatoid arthritis, and gastritis, at this time presents to the hospital, admitted to the ICU with progressive shortness of breath, put on BiPAP. ID Service consulted. The patient has been on antibiotics. At this time, the patient with ARDS, monitoring respiratory rate. It has been slowly improving, however, the patient noted to have a severe thrombocytopenia that has progressed over the past several days without heparin, which has been discontinued. Hematology Service was consulted for further evaluation and underlying treatment. Hepatitis panel currently negative. HIT antibody test pending as well as duplex of lower extremities. However, duplex of the lower extremities actually resulted in patent deep vein system. No evidence of DVT. PAST MEDICAL HISTORY: Hypertension, GERD, auditory hallucinations, depression, rheumatoid arthritis, , and osteoporosis. MEDICATIONS: Reviewed. ALLERGIES: No known drug allergies. FAMILY HISTORY: Noncontributory. SOCIAL HISTORY: No alcohol, tobacco, or illicit drug use. REVIEW OF SYSTEMS: Otherwise negative. PHYSICAL EXAMINATION: GENERAL: No distress. PULMONARY: Decreased breath sounds. CARDIOVASCULAR: Regular rate. No S3 or S4. ABDOMEN: Soft, nontender, and nondistended. EXTREMITIES: No cyanosis, swelling, or edema noted. LABORATORY DATA: WBC 21,000, hemoglobin 8.5, hematocrit 26, and platelet count 14,000. Haptoglobin is pending. BUN of 62 and creatinine of 1. Ferritin 1000. Unsaturating iron binding less than 1. TIBC 150. Vitamin B12 1500. ASSESSMENT AND RECOMMENDATIONS: 1. Thrombocytopenia, severe and progressive, acute onset, likely secondary to underlying infection, aspiration pneumonia versus HIT. Antibody test is pending. Heparin has been discontinued on 09/18/2017. Duplex of the lower extremities is negative, therefore less likely HIT and other causes are more likely such as underlying infection. 2. Anemia due to underlying chronic disease. Continue to closely monitor. Hemoglobin goal is above 7. Anemia workup has been reviewed at this point. Transfuse if hemoglobin less than 7. 3. Community-acquired pneumonia versus hospital-acquired. The patient on broad-spectrum antibiotics. Urine culture growing E. coli. Continue to closely monitor. 4. transaminitis. She has been seen by GI Service. Continue to closely monitor. 5. Low-grade fever. Closely observe. I appreciate the consultation. Johnny Sinha M.D. DR: NIESHA JOB#: [id number] CC:
[2017-09-20] MEDS: dilTIAZem HCl 30mg tab NG SCH ×3 (05:14→22:16)
[2017-09-20 05:18] LABS: HEMATOCRIT 25.9 % (37.0-47.0); HEMOGLOBIN 8.4 G/DL (12.0-16.0); MEAN CORPUSCULAR VOLUME 100 FL (80-99); PLATELET COUNT 83 K/UL (150-450); RED BLOOD COUNT 2.58 M/UL (4.20-5.40); RED CELL DISTRIBUTION WIDTH 16.8 % (11.6-14.8); WHITE BLOOD COUNT 18.2 K/UL (4.8-10.8)
[2017-09-20 06:00] LABS: PHOSPHORUS 3.6 MG/DL (2.5-4.9)
[2017-09-20 06:11] LABS: ALANINE AMINOTRANSFERASE 64 U/L (12-78); ALBUMIN 1.6 G/DL (3.4-5.0); ALBUMIN/GLOBULIN RATIO 0.4 (1.0-2.7); ALKALINE PHOSPHATASE 541 U/L (46-116); ANION GAP 11 mmol/L (5-15); ASPARTATE AMINO TRANSFERASE 73 U/L (15-37); BILIRUBIN,TOTAL 1.2 MG/DL (0.2-1.0); BLOOD UREA NITROGEN 59 mg/dL (7-18); CALCIUM 8.5 MG/DL (8.5-10.1); CARBON DIOXIDE 23 MMOL/L (21-32); CHLORIDE 118 MMOL/L (98-107); CREATININE 1.1 MG/DL (0.55-1.30); POTASSIUM 4.3 MMOL/L (3.5-5.1); SODIUM 152 MMOL/L (136-145)
[2017-09-20 06:12] LABS: BILIRUBIN,DIRECT 0.7 MG/DL (0.0-0.3)
--- NOTE | 2017-09-20 07:42 | Pulmonolgy Critical Care Note ---
Critical Care - Asmt/Plan Problems: (1) ARDS (adult respiratory distress syndrome) (2) Aspiration pneumonia (3) Protein-calorie malnutrition, severe (4) Diabetes mellitus (5) Anemia Assessment/Plan: improving overall Respiratory: monitor respiratory rate, adjust FIO2, CXR Cardiac: continue to monitor HR/BP Renal: F/U I&O, keep IV fluid, check electrolytes Infectious Disease: check cultures, continue antibiotics Gastrointestinal: continue feedings/current rate Endocrine: monitor blood sugar Hematologic: monitor H/H, transfuse if hgb<8.5 Neurologic: PRN Ativan, keep patient comfortable Affect: PRN ativan Time Spent (Minutes): 40 Notes Reviewed: cardio Discussed with: nurses, consultants, employment evaluator/case managerbartender manager - Objective Last 24 Hour Vital Signs Date Time Temp Pulse Resp B/P (MAP) Pulse Ox O2 Delivery O2 Flow Rate FiO2 09/20/17 07:00 105 27 116/42 100 Mechanical Ventilator 70 09/20/17 06:56 116 27 70 09/20/17 06:00 107 26 107/37 100 Mechanical Ventilator 70 09/20/17 05:14 108 111/35 09/20/17 05:10 104 27 70 09/20/17 05:00 109 25 107/36 100 Mechanical Ventilator 70 09/20/17 04:00 70 09/20/17 04:00 104 09/20/17 04:00 96.9 102 26 105/35 100 Mechanical Ventilator 70 96.9 09/20/17 03:05 109 24 70 09/20/17 03:00 104 28 98/68 100 Mechanical Ventilator 70 09/20/17 02:00 104 26 108/62 100 Mechanical Ventilator 70 09/20/17 01:27 106 29 70 09/20/17 01:00 106 28 113/43 99 Mechanical Ventilator 70 09/20/17 00:00 115 09/20/17 00:00 70 09/20/17 00:00 98.0 110 27 120/44 100 Mechanical Ventilator 70 98.0 09/19/17 23:17 114 28 70 09/19/17 23:00 112 28 112/44 99 Mechanical Ventilator 70 09/19/17 22:00 116 30 134/50 98 Mechanical Ventilator 70 09/19/17 21:08 108 120/45 09/19/17 21:01 108 25 70 09/19/17 21:00 117 26 119/47 98 Mechanical Ventilator 70 09/19/17 20:00 70 09/19/17 20:00 116 09/19/17 20:00 98.2 109 26 120/54 99 Mechanical Ventilator 70 98.2 09/19/17 19:00 111 24 126/43 100 Mechanical Ventilator 70 09/19/17 18:57 112 32 70 09/19/17 18:00 110 32 106/40 100 Mechanical Ventilator 70 09/19/17 17:16 111 29 70 09/19/17 17:00 110 30 124/53 100 Mechanical Ventilator 70 09/19/17 16:30 119 09/19/17 16:00 98.9 120 30 109/48 100 Mechanical Ventilator 70 98.9 09/19/17 16:00 70 09/19/17 15:22 100 24 70 09/19/17 15:00 27 119/44 100 Mechanical Ventilator 70 09/19/17 14:00 98.6 115 28 110/39 100 Mechanical Ventilator 70 98.6 09/19/17 13:16 121 100/42 09/19/17 13:00 111 22 108/43 100 Mechanical Ventilator 70 09/19/17 12:50 118 24 70 09/19/17 12:00 70 09/19/17 12:00 124 09/19/17 12:00 98.8 123 27 100/45 100 Mechanical Ventilator 70 98.8 09/19/17 11:02 124 30 70 09/19/17 11:00 121 30 96/43 100 Mechanical Ventilator 70 09/19/17 10:00 118 27 102/43 100 Mechanical Ventilator 70 09/19/17 09:15 123 33 70 09/19/17 09:00 119 31 97/37 100 Mechanical Ventilator 70 09/19/17 09:00 70 09/19/17 08:00 111 09/19/17 08:00 98.5 119 31 122/90 100 Mechanical Ventilator 70 98.5 Status: awake Condition: grave HEENT: atraumatic Neck: full ROM Lungs: chest wall tender Heart: HR/BP stable, HR/BP unstable Abdomen: soft, non-tender, feeding tube Extremities: no C/C/E, edema Accucheck: 181 Critical Care - Subjective ROS Limited/Unobtainable: No Condition: critical EKG Rhythm: Sinus Rhythm FI02: 70 Vent Support Breath Rate: 18 Vent Support Mode: AC Vent Tidal Volume: 500 Sputum Amount: None PEEP: 7.0 PIP: 53 Tube Feeding Amount: 45 I&O: Intake and Output 09/19/17 09/20/17 19:00 07:00 Intake Total 525 ml 1145 ml Output Total 495 ml 660 ml Balance 30 ml 485 ml Intake Free Water 300 ml 300 ml IV Total 305 ml Tube Feeding 225 ml 540 ml Output Urine Total 495 ml 660 ml # Bowel Movements 3 3 CXR: improving, ET in good position ET-Tube: 7.5 ET Position: 21 Labs: Laboratory Tests Test 09/20/17 00:25 09/20/17 04:00 Vancomycin Level Trough 36.8 ug/mL (5.0-12.0) H White Blood Count 18.2 K/UL (4.8-10.8) H Red Blood Count 2.58 M/UL (4.20-5.40) L Hemoglobin 8.4 G/DL (12.0-16.0) L Hematocrit 25.9 % (37.0-47.0) L Mean Corpuscular Volume 100 FL (80-99) H Mean Corpuscular Hemoglobin 32.6 PG (27.0-31.0) H Mean Corpuscular Hemoglobin Concent 32.5 G/DL (32.0-36.0) Red Cell Distribution Width 16.8 % (11.6-14.8) H Platelet Count 83 K/UL (150-450) #L Mean Platelet Volume 7.3 FL (6.5-10.1) Neutrophils (%) (Auto) % (45.0-75.0) Lymphocytes (%) (Auto) % (20.0-45.0) Monocytes (%) (Auto) % (1.0-10.0) Eosinophils (%) (Auto) % (0.0-3.0) Basophils (%) (Auto) % (0.0-2.0) Neutrophils % (Manual) Pending Lymphocytes % (Manual) Pending Platelet Estimate Pending Platelet Morphology Pending Sodium Level 152 MMOL/L (136-145) H Potassium Level 4.3 MMOL/L (3.5-5.1) Chloride Level 118 MMOL/L (98-107) H Carbon Dioxide Level 23 MMOL/L (21-32) Anion Gap 11 mmol/L (5-15) Blood Urea Nitrogen 59 mg/dL (7-18) H Creatinine 1.1 MG/DL (0.55-1.30) Estimat Glomerular Filtration Rate mL/min (>60) Glucose Level 216 MG/DL (74-106) H Uric Acid 5.7 MG/DL (2.6-7.2) Calcium Level 8.5 MG/DL (8.5-10.1) Phosphorus Level 3.6 MG/DL (2.5-4.9) Magnesium Level 2.2 MG/DL (1.8-2.4) Total Bilirubin 1.2 MG/DL (0.2-1.0) H Direct Bilirubin 0.7 MG/DL (0.0-0.3) H Aspartate Amino Transf (AST/SGOT) 73 U/L (15-37) H Alanine Aminotransferase (ALT/SGPT) 64 U/L (12-78) Alkaline Phosphatase 541 U/L (46-116) H Pro-B-Type Natriuretic Peptide 8430 pg/mL (0-125) H Total Protein 5.7 G/DL (6.4-8.2) L Albumin 1.6 G/DL (3.4-5.0) L Globulin 4.1 g/dL Albumin/Globulin Ratio 0.4 (1.0-2.7) L ARUNA VANEGAS Sep 20, 2017 07:42
--- NOTE | 2017-09-20 07:49 | Nephrology Progress Note ---
Assessment/Plan Problem List: (1) ARDS (adult respiratory distress syndrome) (2) Electrolyte imbalance (3) Thrombocytopenia Assessment Na 152 Platelets [address]2825 (1) ARDS (adult respiratory distress syndrome) (2) Aspiration pneumonia (3) Protein-calorie malnutrition, severe (4) Diabetes mellitus (5) Anemia , aplastic by history (6) DM (7) UTI (8) Electrolyte imbalance (9) HTN (10) Depression (11) RA . Plan on cardiazem water via NGT Adjust BP meds K and Phos supplement as needed Monitor renal parameters and urine output avoid nephrotoxics per orders discussed with RN Left ventricular ejection fraction estimated to be 55 %. Subjective ROS Limited/Unobtainable: Yes Objective Objective Last 24 Hour Vital Signs Date Time Temp Pulse Resp B/P (MAP) Pulse Ox O2 Delivery O2 Flow Rate FiO2 09/20/17 07:00 105 27 116/42 100 Mechanical Ventilator 70 09/20/17 06:56 116 27 70 09/20/17 06:00 107 26 107/37 100 Mechanical Ventilator 70 09/20/17 05:14 108 111/35 09/20/17 05:10 104 27 70 09/20/17 05:00 109 25 107/36 100 Mechanical Ventilator 70 09/20/17 04:00 70 09/20/17 04:00 104 09/20/17 04:00 96.9 102 26 105/35 100 Mechanical Ventilator 70 96.9 09/20/17 03:05 109 24 70 09/20/17 03:00 104 28 98/68 100 Mechanical Ventilator 70 09/20/17 02:00 104 26 108/62 100 Mechanical Ventilator 70 09/20/17 01:27 106 29 70 09/20/17 01:00 106 28 113/43 99 Mechanical Ventilator 70 09/20/17 00:00 115 09/20/17 00:00 70 09/20/17 00:00 98.0 110 27 120/44 100 Mechanical Ventilator 70 98.0 09/19/17 23:17 114 28 70 09/19/17 23:00 112 28 112/44 99 Mechanical Ventilator 70 09/19/17 22:00 116 30 134/50 98 Mechanical Ventilator 70 09/19/17 21:08 108 120/45 09/19/17 21:01 108 25 70 09/19/17 21:00 117 26 119/47 98 Mechanical Ventilator 70 09/19/17 20:00 70 09/19/17 20:00 116 09/19/17 20:00 98.2 109 26 120/54 99 Mechanical Ventilator 70 98.2 09/19/17 19:00 111 24 126/43 100 Mechanical Ventilator 70 09/19/17 18:57 112 32 70 09/19/17 18:00 110 32 106/40 100 Mechanical Ventilator 70 09/19/17 17:16 111 29 70 09/19/17 17:00 110 30 124/53 100 Mechanical Ventilator 70 09/19/17 16:30 119 09/19/17 16:00 98.9 120 30 109/48 100 Mechanical Ventilator 70 98.9 09/19/17 16:00 70 09/19/17 15:22 100 24 70 09/19/17 15:00 27 119/44 100 Mechanical Ventilator 70 09/19/17 14:00 98.6 115 28 110/39 100 Mechanical Ventilator 70 98.6 09/19/17 13:16 121 100/42 09/19/17 13:00 111 22 108/43 100 Mechanical Ventilator 70 09/19/17 12:50 118 24 70 09/19/17 12:00 70 09/19/17 12:00 124 09/19/17 12:00 98.8 123 27 100/45 100 Mechanical Ventilator 70 98.8 09/19/17 11:02 124 30 70 09/19/17 11:00 121 30 96/43 100 Mechanical Ventilator 70 09/19/17 10:00 118 27 102/43 100 Mechanical Ventilator 70 09/19/17 09:15 123 33 70 09/19/17 09:00 119 31 97/37 100 Mechanical Ventilator 70 09/19/17 09:00 70 09/19/17 08:00 111 09/19/17 08:00 98.5 119 31 122/90 100 Mechanical Ventilator 70 98.5 Intake and Output 09/19/17 09/20/17 19:00 07:00 Intake Total 525 ml 1145 ml Output Total 495 ml 660 ml Balance 30 ml 485 ml Intake Free Water 300 ml 300 ml IV Total 305 ml Tube Feeding 225 ml 540 ml Output Urine Total 495 ml 660 ml # Bowel Movements 3 3 Laboratory Tests 09/20/17 00:25: Vancomycin Level Trough 36.8H 09/20/17 04:00: White Blood Count 18.2H, Red Blood Count 2.58L, Hemoglobin 8.4L, Hematocrit 25.9L, Mean Corpuscular Volume 100H, Mean Corpuscular Hemoglobin 32.6H, Mean Corpuscular Hemoglobin Concent 32.5, Red Cell Distribution Width 16.8H, Platelet Count 83#L, Mean Platelet Volume 7.3, Neutrophils (%) (Auto) , Lymphocytes (%) (Auto) , Monocytes (%) (Auto) , Eosinophils (%) (Auto) , Basophils (%) (Auto) , Neutrophils % (Manual) [Pending], Lymphocytes % (Manual) [Pending], Platelet Estimate [Pending], Platelet Morphology [Pending], Sodium Level 152H, Potassium Level 4.3, Chloride Level 118H, Carbon Dioxide Level 23, Anion Gap 11, Blood Urea Nitrogen 59H, Creatinine 1.1, Estimat Glomerular Filtration Rate , Glucose Level 216H, Uric Acid 5.7, Calcium Level 8.5, Phosphorus Level 3.6, Magnesium Level 2.2, Total Bilirubin 1.2H, Direct Bilirubin 0.7H, Aspartate Amino Transf (AST/SGOT) 73H, Alanine Aminotransferase (ALT/SGPT) 64, Alkaline Phosphatase 541H, Pro-B-Type Natriuretic Peptide 8430H, Total Protein 5.7L, Albumin 1.6L, Globulin 4.1, Albumin/Globulin Ratio 0.4L Height (Feet): 5 Height (Inches): 0.00 Weight (Pounds): 99 EENT: other - intubated Cardiovascular: tachycardia Respiratory/Chest: decreased breath sounds YAEL HANSEN Sep 20, 2017 07:49
[2017-09-20] MEDS: Pantoprazole Inj IV SCH (09:12)
[2017-09-20] MEDS: Meropenem 1 GM in NS 55 ML IVPB SCH ×2 (09:12→20:37)
--- NOTE | 2017-09-20 10:31 | Diagnostic Imaging Report ---
Indication: Shortness of breath Technique: XRAY Chest 1v Comparison: 09/19/2017 Findings: Endotracheal tube and nasogastric tube are unchanged. Cardiomediastinal silhouette is stable. Interstitial and airspace edema/infiltrates are unchanged. Impression: No significant change from 09/19/2017.
--- NOTE | 2017-09-20 15:20 | Cardiac Electrophysiology PN ---
Assessment/Plan Assessment/Plan 1. Respiratory failure, due to underlying ARDS versus pneumonia,. Intubated on the vent. Already ruled out for myocardial infarction. Still on 70% Fio2 with PEEP of 7 2. Left bundle-branch block. No evidence of advanced heart block. 3. HTN and diastolic dysfunction.On Cardizem 30 tid. 4. Hypernatremia and azotemia. Off Lasix now. 5. Pneumonia and sepsis on IV antibiotics by Dr. Hunter. 6. History of psychiatric disorder. 7. Anasarca. 3rd spacing DW RN Subjective Subjective Intubated on Vent in ICU unresponsive in sinus tach on 70% Fio2 and PEEP of 7 Objective Last 24 Hour Vital Signs Date Time Temp Pulse Resp B/P (MAP) Pulse Ox O2 Delivery O2 Flow Rate FiO2 09/20/17 14:04 103 119/38 09/20/17 13:00 103 24 119/38 100 Mechanical Ventilator 70 09/20/17 12:34 103 30 70 09/20/17 12:00 70 09/20/17 12:00 101 09/20/17 12:00 104 23 113/38 100 Mechanical Ventilator 70 09/20/17 11:00 111 25 123/43 100 Mechanical Ventilator 70 09/20/17 10:39 110 28 70 09/20/17 10:00 113 27 120/42 100 Mechanical Ventilator 70 09/20/17 09:00 116 28 109/44 100 Mechanical Ventilator 70 09/20/17 08:55 116 29 70 09/20/17 08:00 70 09/20/17 08:00 99.3 113 29 116/39 100 Mechanical Ventilator 70 99.3 09/20/17 08:00 108 09/20/17 07:00 105 27 116/42 100 Mechanical Ventilator 70 09/20/17 06:56 116 27 70 09/20/17 06:00 107 26 107/37 100 Mechanical Ventilator 70 09/20/17 05:14 108 111/35 09/20/17 05:10 104 27 70 09/20/17 05:00 109 25 107/36 100 Mechanical Ventilator 70 09/20/17 04:00 70 09/20/17 04:00 104 09/20/17 04:00 96.9 102 26 105/35 100 Mechanical Ventilator 70 96.9 09/20/17 03:05 109 24 70 09/20/17 03:00 104 28 98/68 100 Mechanical Ventilator 70 09/20/17 02:00 104 26 108/62 100 Mechanical Ventilator 70 09/20/17 01:27 106 29 70 09/20/17 01:00 106 28 113/43 99 Mechanical Ventilator 70 09/20/17 00:00 115 09/20/17 00:00 70 09/20/17 00:00 98.0 110 27 120/44 100 Mechanical Ventilator 70 98.0 09/19/17 23:17 114 28 70 09/19/17 23:00 112 28 112/44 99 Mechanical Ventilator 70 09/19/17 22:00 116 30 134/50 98 Mechanical Ventilator 70 09/19/17 21:08 108 120/45 09/19/17 21:01 108 25 70 09/19/17 21:00 117 26 119/47 98 Mechanical Ventilator 70 09/19/17 20:00 70 09/19/17 20:00 116 09/19/17 20:00 98.2 109 26 120/54 99 Mechanical Ventilator 70 98.2 09/19/17 19:00 111 24 126/43 100 Mechanical Ventilator 70 09/19/17 18:57 112 32 70 09/19/17 18:00 110 32 106/40 100 Mechanical Ventilator 70 09/19/17 17:16 111 29 70 09/19/17 17:00 110 30 124/53 100 Mechanical Ventilator 70 09/19/17 16:30 119 09/19/17 16:00 98.9 120 30 109/48 100 Mechanical Ventilator 70 98.9 09/19/17 16:00 70 09/19/17 15:22 100 24 70 Intake and Output 09/19/17 09/20/17 19:00 07:00 Intake Total 525 ml 1145 ml Output Total 495 ml 660 ml Balance 30 ml 485 ml Intake Free Water 300 ml 300 ml IV Total 305 ml Tube Feeding 225 ml 540 ml Output Urine Total 495 ml 660 ml # Bowel Movements 3 3 Laboratory Tests Test 09/20/17 00:25 09/20/17 04:00 Vancomycin Level Trough 36.8 ug/mL (5.0-12.0) H White Blood Count 18.2 K/UL (4.8-10.8) H Red Blood Count 2.58 M/UL (4.20-5.40) L Hemoglobin 8.4 G/DL (12.0-16.0) L Hematocrit 25.9 % (37.0-47.0) L Mean Corpuscular Volume 100 FL (80-99) H Mean Corpuscular Hemoglobin 32.6 PG (27.0-31.0) H Mean Corpuscular Hemoglobin Concent 32.5 G/DL (32.0-36.0) Red Cell Distribution Width 16.8 % (11.6-14.8) H Platelet Count 83 K/UL (150-450) #L Mean Platelet Volume 7.3 FL (6.5-10.1) Neutrophils (%) (Auto) % (45.0-75.0) Lymphocytes (%) (Auto) % (20.0-45.0) Monocytes (%) (Auto) % (1.0-10.0) Eosinophils (%) (Auto) % (0.0-3.0) Basophils (%) (Auto) % (0.0-2.0) Differential Total Cells Counted 100 Neutrophils % (Manual) 88 % (45-75) H Lymphocytes % (Manual) 6 % (20-45) L Monocytes % (Manual) 6 % (1-10) Eosinophils % (Manual) 0 % (0-3) Basophils % (Manual) 0 % (0-2) Band Neutrophils 0 % (0-8) Nucleated Red Blood Cells 3 /100 WBC Platelet Estimate Decreased L Platelet Morphology Normal Polychromasia 1+ Hypochromasia 1+ Anisocytosis 1+ Macrocytosis 1+ Sodium Level 152 MMOL/L (136-145) H Potassium Level 4.3 MMOL/L (3.5-5.1) Chloride Level 118 MMOL/L (98-107) H Carbon Dioxide Level 23 MMOL/L (21-32) Anion Gap 11 mmol/L (5-15) Blood Urea Nitrogen 59 mg/dL (7-18) H Creatinine 1.1 MG/DL (0.55-1.30) Estimat Glomerular Filtration Rate mL/min (>60) Glucose Level 216 MG/DL (74-106) H Uric Acid 5.7 MG/DL (2.6-7.2) Calcium Level 8.5 MG/DL (8.5-10.1) Phosphorus Level 3.6 MG/DL (2.5-4.9) Magnesium Level 2.2 MG/DL (1.8-2.4) Total Bilirubin 1.2 MG/DL (0.2-1.0) H Direct Bilirubin 0.7 MG/DL (0.0-0.3) H Aspartate Amino Transf (AST/SGOT) 73 U/L (15-37) H Alanine Aminotransferase (ALT/SGPT) 64 U/L (12-78) Alkaline Phosphatase 541 U/L (46-116) H Pro-B-Type Natriuretic Peptide 8430 pg/mL (0-125) H Total Protein 5.7 G/DL (6.4-8.2) L Albumin 1.6 G/DL (3.4-5.0) L Globulin 4.1 g/dL Albumin/Globulin Ratio 0.4 (1.0-2.7) L Objective HEAD AND NECK: Orally intubated. LUNGS: Coarse rhonchi bilaterally CARDIOVASCULAR: Tachy S1 and S2.no murmur ABDOMEN: Soft. EXTREMITIES: 1+ pitting edema. ROLF OLIVIA Sep 20, 2017 15:20
--- NOTE | 2017-09-20 16:53 | Internal Med Progress Note ---
Subjective Date of Service: Sep 20, 2017 Physician Name Noah Bowens Attending Physician Jesus Barahona MD Current Medications Medications (Trade) Dose Ordered Sig/Hermes Route PRN Reason Start Time Stop Time Status Last Admin Dose Admin Acetaminophen (Tylenol) 650 mg EVERY 6 HOURS PRN NG Fever/Headache/Mild Pain 09/13/17 20:45 10/13/17 20:44 09/15/17 20:53 Clonidine HCl (Catapres Tab) 0.1 mg Q4H PRN ORAL SBP>160 UNRELIEVED BY HYDRALAZ 09/16/17 16:45 10/15/17 16:59 Dextrose (Dextrose 50%) STAT PRN IV Hypoglycemia 09/13/17 15:00 10/13/17 14:59 Diltiazem HCl (Cardizem) 30 mg EVERY 8 HOURS NG 09/18/17 22:00 10/18/17 21:59 09/20/17 14:04 Insulin Aspart (NovoLOG) EVERY 6 HOURS SUBQ 09/17/17 12:00 10/17/17 11:59 09/20/17 11:31 Meropenem 1 gm/ Sodium Chloride 55 ml @ 110 mls/hr Q12HR IVPB 09/19/17 21:00 09/24/17 20:59 09/20/17 09:12 Oseltamivir Phosphate (Tamiflu) 30 mg Q12HR ORAL 09/17/17 21:00 09/22/17 14:00 09/20/17 09:03 Pantoprazole (Protonix) 40 mg DAILY IV 09/13/17 09:00 10/13/17 08:59 09/20/17 09:12 Polyethylene Glycol (Miralax) 17 gm BEDTIME ORAL 09/14/17 21:00 10/14/17 20:59 09/18/17 20:42 Allergies: Coded Allergies: No Known Allergies (Verified , 11/18/08) ROS Limited/Unobtainable: Yes Subjective 76 YO F admitted with Shortness of breath, now respiratory failure. Intubated and sedated. Cover for Internal Med-Dr. Barahona. ICU Objective Last Vital Signs Date Time Temp Pulse Resp B/P (MAP) Pulse Ox O2 Delivery O2 Flow Rate FiO2 09/20/17 16:00 106 09/20/17 15:17 27 70 09/20/17 15:00 117/45 100 Mechanical Ventilator 09/20/17 08:00 99.3 99.3 09/12/17 00:35 15.0 Laboratory Tests Test 09/20/17 00:25 09/20/17 04:00 Vancomycin Level Trough 36.8 ug/mL (5.0-12.0) H White Blood Count 18.2 K/UL (4.8-10.8) H Red Blood Count 2.58 M/UL (4.20-5.40) L Hemoglobin 8.4 G/DL (12.0-16.0) L Hematocrit 25.9 % (37.0-47.0) L Mean Corpuscular Volume 100 FL (80-99) H Mean Corpuscular Hemoglobin 32.6 PG (27.0-31.0) H Mean Corpuscular Hemoglobin Concent 32.5 G/DL (32.0-36.0) Red Cell Distribution Width 16.8 % (11.6-14.8) H Platelet Count 83 K/UL (150-450) #L Mean Platelet Volume 7.3 FL (6.5-10.1) Neutrophils (%) (Auto) % (45.0-75.0) Lymphocytes (%) (Auto) % (20.0-45.0) Monocytes (%) (Auto) % (1.0-10.0) Eosinophils (%) (Auto) % (0.0-3.0) Basophils (%) (Auto) % (0.0-2.0) Differential Total Cells Counted 100 Neutrophils % (Manual) 88 % (45-75) H Lymphocytes % (Manual) 6 % (20-45) L Monocytes % (Manual) 6 % (1-10) Eosinophils % (Manual) 0 % (0-3) Basophils % (Manual) 0 % (0-2) Band Neutrophils 0 % (0-8) Nucleated Red Blood Cells 3 /100 WBC Platelet Estimate Decreased L Platelet Morphology Normal Polychromasia 1+ Hypochromasia 1+ Anisocytosis 1+ Macrocytosis 1+ Sodium Level 152 MMOL/L (136-145) H Potassium Level 4.3 MMOL/L (3.5-5.1) Chloride Level 118 MMOL/L (98-107) H Carbon Dioxide Level 23 MMOL/L (21-32) Anion Gap 11 mmol/L (5-15) Blood Urea Nitrogen 59 mg/dL (7-18) H Creatinine 1.1 MG/DL (0.55-1.30) Estimat Glomerular Filtration Rate mL/min (>60) Glucose Level 216 MG/DL (74-106) H Uric Acid 5.7 MG/DL (2.6-7.2) Calcium Level 8.5 MG/DL (8.5-10.1) Phosphorus Level 3.6 MG/DL (2.5-4.9) Magnesium Level 2.2 MG/DL (1.8-2.4) Total Bilirubin 1.2 MG/DL (0.2-1.0) H Direct Bilirubin 0.7 MG/DL (0.0-0.3) H Aspartate Amino Transf (AST/SGOT) 73 U/L (15-37) H Alanine Aminotransferase (ALT/SGPT) 64 U/L (12-78) Alkaline Phosphatase 541 U/L (46-116) H Pro-B-Type Natriuretic Peptide 8430 pg/mL (0-125) H Total Protein 5.7 G/DL (6.4-8.2) L Albumin 1.6 G/DL (3.4-5.0) L Globulin 4.1 g/dL Albumin/Globulin Ratio 0.4 (1.0-2.7) L Intake and Output 09/19/17 09/20/17 19:00 07:00 Intake Total 525 ml 1145 ml Output Total 495 ml 660 ml Balance 30 ml 485 ml Intake Free Water 300 ml 300 ml IV Total 305 ml Tube Feeding 225 ml 540 ml Output Urine Total 495 ml 660 ml # Bowel Movements 3 3 Objective General Appearance: lethargic, thin EENT: normal ENT inspection Neck: non-tender, normal alignment, supple Cardiovascular: normal peripheral pulses, normal rate, regular rhythm, no gallop/murmur, no JVD Respiratory/Chest: Mechanical vent; respiratory distress, crackles/rales, rhonchi - bilaterally, expiratory wheezing Abdomen: normal bowel sounds, non tender, soft, no organomegaly, no mass Skin: normal pigmentation, warm/dry Assessment/Plan Problem List: (1) HTN (hypertension) Assessment & Plan: Currently hypotensive. (2) Arthritis, rheumatoid (3) Parkinsons disease (4) Aplastic anemia (5) GERD (gastroesophageal reflux disease) (6) Respiratory failure Assessment & Plan: Cont vent per pulmonary (7) Pneumonia (8) Dyspnea (9) Sepsis Assessment & Plan: Blood culture neg. Continue vanco and levaquin per ID (10) ARDS (adult respiratory distress syndrome) Assessment & Plan: See pulmonary note (11) UTI (urinary tract infection) Assessment & Plan: E.Coli. Continue levaquin (12) Anemia Assessment & Plan: S/P Transfusion 2 units PRBC Status: not improved NOAH BOWENS Sep 20, 2017 16:53
--- NOTE | 2017-09-20 17:31 | Infectious Diseases Prog Note ---
Assessment/Plan Assessment/Plan ASSESSMENT: The patient is a 76-year-old female w Fever, SP Leukocytosis improving Community-acquired vs healthcare-associated pneumonia (the patient has been recently hospitalized in [facility]). 09/19 xray : Unchanged diffuse interstitial and airspace edema, Probable influenza despite of negative influenza screening test. Abnormal liver function tests, rule out biliary disease Ultrasound of the abdomen : Gallbladder sludge. No definite stones. Bladder wall thickening may be edema due to whatever process is causing the bilateral pleural effusions, but acute acalculous cholecystitis is also a possibility Hep panel : neg Probable UTI UCx : E coli TCP VDRF / ARDS HTN GERD History of auditory hallucination. Depression. Anemia. Rheumatoid arthritis. History of gastritis. PLAN: continue the patient on Tamiflu d# / 7 -10 , cont Merrem d# / ( empirically ) 09/19 SP vancomycin and Levaquin d# 18 Monitor CBC. Monitor BMP. Monitor chest x-ray Sputum CX HIDA Subjective Allergies: Coded Allergies: No Known Allergies (Verified , 11/18/08) Subjective on vent Objective Vital Signs Last 24 Hour Vital Signs Date Time Temp Pulse Resp B/P (MAP) Pulse Ox O2 Delivery O2 Flow Rate FiO2 09/20/17 16:55 107 24 70 09/20/17 16:00 106 09/20/17 15:17 112 27 70 09/20/17 15:00 108 27 117/45 100 Mechanical Ventilator 70 09/20/17 14:04 103 119/38 09/20/17 14:00 112 27 119/43 100 Mechanical Ventilator 70 09/20/17 13:00 103 24 119/38 100 Mechanical Ventilator 70 09/20/17 12:34 103 30 70 09/20/17 12:00 70 09/20/17 12:00 101 09/20/17 12:00 104 23 113/38 100 Mechanical Ventilator 70 09/20/17 11:00 111 25 123/43 100 Mechanical Ventilator 70 09/20/17 10:39 110 28 70 09/20/17 10:00 113 27 120/42 100 Mechanical Ventilator 70 09/20/17 09:00 116 28 109/44 100 Mechanical Ventilator 70 09/20/17 08:55 116 29 70 09/20/17 08:00 70 09/20/17 08:00 99.3 113 29 116/39 100 Mechanical Ventilator 70 99.3 09/20/17 08:00 108 09/20/17 07:00 105 27 116/42 100 Mechanical Ventilator 70 09/20/17 06:56 116 27 70 09/20/17 06:00 107 26 107/37 100 Mechanical Ventilator 70 09/20/17 05:14 108 111/35 09/20/17 05:10 104 27 70 09/20/17 05:00 109 25 107/36 100 Mechanical Ventilator 70 09/20/17 04:00 70 09/20/17 04:00 104 09/20/17 04:00 96.9 102 26 105/35 100 Mechanical Ventilator 70 96.9 09/20/17 03:05 109 24 70 09/20/17 03:00 104 28 98/68 100 Mechanical Ventilator 70 09/20/17 02:00 104 26 108/62 100 Mechanical Ventilator 70 09/20/17 01:27 106 29 70 09/20/17 01:00 106 28 113/43 99 Mechanical Ventilator 70 09/20/17 00:00 115 09/20/17 00:00 70 09/20/17 00:00 98.0 110 27 120/44 100 Mechanical Ventilator 70 98.0 09/19/17 23:17 114 28 70 09/19/17 23:00 112 28 112/44 99 Mechanical Ventilator 70 09/19/17 22:00 116 30 134/50 98 Mechanical Ventilator 70 09/19/17 21:08 108 120/45 09/19/17 21:01 108 25 70 09/19/17 21:00 117 26 119/47 98 Mechanical Ventilator 70 09/19/17 20:00 70 09/19/17 20:00 116 09/19/17 20:00 98.2 109 26 120/54 99 Mechanical Ventilator 70 98.2 09/19/17 19:00 111 24 126/43 100 Mechanical Ventilator 70 09/19/17 18:57 112 32 70 09/19/17 18:00 110 32 106/40 100 Mechanical Ventilator 70 Height (Feet): 5 Height (Inches): 0.00 Weight (Pounds): 99 HEENT: atraumatic Respiratory/Chest: decreased breath sounds Cardiovascular: normal rate Abdomen: soft, non tender Laboratory Tests Test 09/20/17 00:25 09/20/17 04:00 Vancomycin Level Trough 36.8 ug/mL (5.0-12.0) H White Blood Count 18.2 K/UL (4.8-10.8) H Red Blood Count 2.58 M/UL (4.20-5.40) L Hemoglobin 8.4 G/DL (12.0-16.0) L Hematocrit 25.9 % (37.0-47.0) L Mean Corpuscular Volume 100 FL (80-99) H Mean Corpuscular Hemoglobin 32.6 PG (27.0-31.0) H Mean Corpuscular Hemoglobin Concent 32.5 G/DL (32.0-36.0) Red Cell Distribution Width 16.8 % (11.6-14.8) H Platelet Count 83 K/UL (150-450) #L Mean Platelet Volume 7.3 FL (6.5-10.1) Neutrophils (%) (Auto) % (45.0-75.0) Lymphocytes (%) (Auto) % (20.0-45.0) Monocytes (%) (Auto) % (1.0-10.0) Eosinophils (%) (Auto) % (0.0-3.0) Basophils (%) (Auto) % (0.0-2.0) Differential Total Cells Counted 100 Neutrophils % (Manual) 88 % (45-75) H Lymphocytes % (Manual) 6 % (20-45) L Monocytes % (Manual) 6 % (1-10) Eosinophils % (Manual) 0 % (0-3) Basophils % (Manual) 0 % (0-2) Band Neutrophils 0 % (0-8) Nucleated Red Blood Cells 3 /100 WBC Platelet Estimate Decreased L Platelet Morphology Normal Polychromasia 1+ Hypochromasia 1+ Anisocytosis 1+ Macrocytosis 1+ Sodium Level 152 MMOL/L (136-145) H Potassium Level 4.3 MMOL/L (3.5-5.1) Chloride Level 118 MMOL/L (98-107) H Carbon Dioxide Level 23 MMOL/L (21-32) Anion Gap 11 mmol/L (5-15) Blood Urea Nitrogen 59 mg/dL (7-18) H Creatinine 1.1 MG/DL (0.55-1.30) Estimat Glomerular Filtration Rate mL/min (>60) Glucose Level 216 MG/DL (74-106) H Uric Acid 5.7 MG/DL (2.6-7.2) Calcium Level 8.5 MG/DL (8.5-10.1) Phosphorus Level 3.6 MG/DL (2.5-4.9) Magnesium Level 2.2 MG/DL (1.8-2.4) Total Bilirubin 1.2 MG/DL (0.2-1.0) H Direct Bilirubin 0.7 MG/DL (0.0-0.3) H Aspartate Amino Transf (AST/SGOT) 73 U/L (15-37) H Alanine Aminotransferase (ALT/SGPT) 64 U/L (12-78) Alkaline Phosphatase 541 U/L (46-116) H Pro-B-Type Natriuretic Peptide 8430 pg/mL (0-125) H Total Protein 5.7 G/DL (6.4-8.2) L Albumin 1.6 G/DL (3.4-5.0) L Globulin 4.1 g/dL Albumin/Globulin Ratio 0.4 (1.0-2.7) L Current Medications Medications (Trade) Dose Ordered Sig/Hermes Route PRN Reason Start Time Stop Time Status Last Admin Dose Admin Acetaminophen (Tylenol) 650 mg EVERY 6 HOURS PRN NG Fever/Headache/Mild Pain 09/13/17 20:45 10/13/17 20:44 09/15/17 20:53 Clonidine HCl (Catapres Tab) 0.1 mg Q4H PRN ORAL SBP>160 UNRELIEVED BY HYDRALAZ 09/16/17 16:45 10/15/17 16:59 Dextrose (Dextrose 50%) STAT PRN IV Hypoglycemia 09/13/17 15:00 10/13/17 14:59 Diltiazem HCl (Cardizem) 30 mg EVERY 8 HOURS NG 09/18/17 22:00 10/18/17 21:59 09/20/17 14:04 Insulin Aspart (NovoLOG) EVERY 6 HOURS SUBQ 09/17/17 12:00 10/17/17 11:59 09/20/17 11:31 Meropenem 1 gm/ Sodium Chloride 55 ml @ 110 mls/hr Q12HR IVPB 09/19/17 21:00 09/24/17 20:59 09/20/17 09:12 Oseltamivir Phosphate (Tamiflu) 30 mg Q12HR ORAL 09/17/17 21:00 09/22/17 14:00 09/20/17 09:03 Pantoprazole (Protonix) 40 mg DAILY IV 09/13/17 09:00 10/13/17 08:59 09/20/17 09:12 Polyethylene Glycol (Miralax) 17 gm BEDTIME ORAL 09/14/17 21:00 10/14/17 20:59 09/18/17 20:42 DEBBIE MURRY M.D. Sep 20, 2017 17:31
--- NOTE | 2017-09-20 18:12 | General Progress Note ---
Assessment/Plan Assessment/Plan Assessment - Resp failure / ARDS - Abnormal LFT with rapid resolution - Anemia with OB (+) stools - thrombocytopenia - Malnutrition Recommendations - NGT feeds - Elevate HOB - Vent care - Monitor H&H - PPI Subjective Allergies: Coded Allergies: No Known Allergies (Verified , 11/18/08) Subjective on Vent poorly communicative Objective Last 24 Hour Vital Signs Date Time Temp Pulse Resp B/P (MAP) Pulse Ox O2 Delivery O2 Flow Rate FiO2 09/20/17 16:55 107 24 70 09/20/17 16:00 70 09/20/17 16:00 106 09/20/17 15:17 112 27 70 09/20/17 15:00 108 27 117/45 100 Mechanical Ventilator 70 09/20/17 14:04 103 119/38 09/20/17 14:00 112 27 119/43 100 Mechanical Ventilator 70 09/20/17 13:00 103 24 119/38 100 Mechanical Ventilator 70 09/20/17 12:34 103 30 70 09/20/17 12:00 70 09/20/17 12:00 101 09/20/17 12:00 104 23 113/38 100 Mechanical Ventilator 70 09/20/17 11:00 111 25 123/43 100 Mechanical Ventilator 70 09/20/17 10:39 110 28 70 09/20/17 10:00 113 27 120/42 100 Mechanical Ventilator 70 09/20/17 09:00 116 28 109/44 100 Mechanical Ventilator 70 09/20/17 08:55 116 29 70 09/20/17 08:00 70 09/20/17 08:00 99.3 113 29 116/39 100 Mechanical Ventilator 70 99.3 09/20/17 08:00 108 09/20/17 07:00 105 27 116/42 100 Mechanical Ventilator 70 09/20/17 06:56 116 27 70 09/20/17 06:00 107 26 107/37 100 Mechanical Ventilator 70 09/20/17 05:14 108 111/35 09/20/17 05:10 104 27 70 09/20/17 05:00 109 25 107/36 100 Mechanical Ventilator 70 09/20/17 04:00 70 09/20/17 04:00 104 09/20/17 04:00 96.9 102 26 105/35 100 Mechanical Ventilator 70 96.9 09/20/17 03:05 109 24 70 09/20/17 03:00 104 28 98/68 100 Mechanical Ventilator 70 09/20/17 02:00 104 26 108/62 100 Mechanical Ventilator 70 09/20/17 01:27 106 29 70 09/20/17 01:00 106 28 113/43 99 Mechanical Ventilator 70 09/20/17 00:00 115 09/20/17 00:00 70 09/20/17 00:00 98.0 110 27 120/44 100 Mechanical Ventilator 70 98.0 09/19/17 23:17 114 28 70 09/19/17 23:00 112 28 112/44 99 Mechanical Ventilator 70 09/19/17 22:00 116 30 134/50 98 Mechanical Ventilator 70 09/19/17 21:08 108 120/45 09/19/17 21:01 108 25 70 09/19/17 21:00 117 26 119/47 98 Mechanical Ventilator 70 09/19/17 20:00 70 09/19/17 20:00 116 09/19/17 20:00 98.2 109 26 120/54 99 Mechanical Ventilator 70 98.2 09/19/17 19:00 111 24 126/43 100 Mechanical Ventilator 70 09/19/17 18:57 112 32 70 Intake and Output 09/19/17 09/20/17 19:00 07:00 Intake Total 525 ml 1145 ml Output Total 495 ml 660 ml Balance 30 ml 485 ml Intake Free Water 300 ml 300 ml IV Total 305 ml Tube Feeding 225 ml 540 ml Output Urine Total 495 ml 660 ml # Bowel Movements 3 3 Laboratory Tests 09/20/17 00:25: Vancomycin Level Trough 36.8H 09/20/17 04:00: White Blood Count 18.2H, Red Blood Count 2.58L, Hemoglobin 8.4L, Hematocrit 25.9L, Mean Corpuscular Volume 100H, Mean Corpuscular Hemoglobin 32.6H, Mean Corpuscular Hemoglobin Concent 32.5, Red Cell Distribution Width 16.8H, Platelet Count 83#L, Mean Platelet Volume 7.3, Neutrophils (%) (Auto) , Lymphocytes (%) (Auto) , Monocytes (%) (Auto) , Eosinophils (%) (Auto) , Basophils (%) (Auto) , Differential Total Cells Counted 100, Neutrophils % ( Manual) 88H, Lymphocytes % (Manual) 6L, Monocytes % (Manual) 6, Eosinophils % ( Manual) 0, Basophils % (Manual) 0, Band Neutrophils 0, Nucleated Red Blood Cells 3, Platelet Estimate DecreasedL, Platelet Morphology Normal, Polychromasia 1+, Hypochromasia 1+, Anisocytosis 1+, Macrocytosis 1+, Sodium Level 152H, Potassium Level 4.3, Chloride Level 118H, Carbon Dioxide Level 23, Anion Gap 11, Blood Urea Nitrogen 59H, Creatinine 1.1, Estimat Glomerular Filtration Rate , Glucose Level 216H, Uric Acid 5.7, Calcium Level 8.5, Phosphorus Level 3.6, Magnesium Level 2.2, Total Bilirubin 1.2H, Direct Bilirubin 0.7H, Aspartate Amino Transf (AST/SGOT) 73H, Alanine Aminotransferase (ALT/SGPT) 64, Alkaline Phosphatase 541H, Pro-B-Type Natriuretic Peptide 8430H, Total Protein 5.7L, Albumin 1.6L, Globulin 4.1, Albumin/Globulin Ratio 0.4L Height (Feet): 5 Height (Inches): 0.00 Weight (Pounds): 99 Objective WDWN NCAT supple CTA RRR abd soft confused ARNULFO DURON Sep 20, 2017 18:12
[2017-09-20] MEDS: Miralax 17gm pkt ORAL SCH (20:38)
--- NOTE | 2017-09-20 23:57 | General Progress Note ---
Assessment/Plan Problem List: (1) Aspiration pneumonia ICD Codes: J69.0 - Pneumonitis due to inhalation of food and vomit SNOMED: 791475826 (2) Protein-calorie malnutrition, severe ICD Codes: E43 - Unspecified severe protein-calorie malnutrition SNOMED: 531886099 (3) Diabetes mellitus ICD Codes: E11.9 - Type 2 diabetes mellitus without complications SNOMED: 12802363 (4) ARDS (adult respiratory distress syndrome) ICD Codes: J80 - Acute respiratory distress syndrome SNOMED: 64994173 (5) Anemia ICD Codes: D64.9 - Anemia, unspecified SNOMED: 643363209 (6) Pulmonary edema ICD Codes: J81.1 - Chronic pulmonary edema SNOMED: 61526629 (7) UTI (urinary tract infection) ICD Codes: N39.0 - Urinary tract infection, site not specified SNOMED: 75292854, 307035026 (8) Transaminitis ICD Codes: R74.0 - Nonspecific elevation of levels of transaminase and lactic acid dehydrogenase [LDH] SNOMED: 969048441, 544480371 (9) Respiratory failure ICD Codes: J96.90 - Respiratory failure, unspecified, unspecified whether with hypoxia or hypercapnia SNOMED: 826655084 (10) Arthritis, rheumatoid ICD Codes: M06.9 - Rheumatoid arthritis, unspecified SNOMED: 37001790 (11) Dyspnea ICD Codes: R06.00 - Dyspnea, unspecified SNOMED: 003333849 (12) Parkinsons disease ICD Codes: G20 - Parkinson's disease SNOMED: 67060311 (13) Sepsis ICD Codes: A41.9 - Sepsis, unspecified organism SNOMED: 29213317 (14) GERD (gastroesophageal reflux disease) ICD Codes: K21.9 - Gastro-esophageal reflux disease without esophagitis SNOMED: 806893781 (15) Aplastic anemia ICD Codes: D61.9 - Aplastic anemia, unspecified SNOMED: 903644576 (16) Pneumonia ICD Codes: J18.9 - Pneumonia, unspecified organism SNOMED: 324812845 (17) HTN (hypertension) ICD Codes: I10 - Essential (primary) hypertension SNOMED: 41084247 Assessment/Plan encephalopathy -cont current meds Subjective 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: Reports: anxiety, depressed, emotional problems Allergies: Coded Allergies: No Known Allergies (Verified , 11/18/08) Objective Last 24 Hour Vital Signs Date Time Temp Pulse Resp B/P (MAP) Pulse Ox O2 Delivery O2 Flow Rate FiO2 09/20/17 23:22 109 30 70 09/20/17 22:16 113 126/50 09/20/17 21:02 104 30 70 09/20/17 19:00 106 26 96/39 100 09/20/17 18:46 114 22 70 09/20/17 18:00 101 25 109/38 100 Mechanical Ventilator 70 09/20/17 17:00 109 24 114/45 100 Mechanical Ventilator 70 09/20/17 16:55 107 24 70 09/20/17 16:00 70 09/20/17 16:00 98.6 111 26 111/50 100 Mechanical Ventilator 70 98.6 09/20/17 16:00 106 09/20/17 15:17 112 27 70 09/20/17 15:00 108 27 117/45 100 Mechanical Ventilator 70 09/20/17 14:04 103 119/38 09/20/17 14:00 112 27 119/43 100 Mechanical Ventilator 70 09/20/17 13:00 103 24 119/38 100 Mechanical Ventilator 70 09/20/17 12:34 103 30 70 09/20/17 12:00 70 09/20/17 12:00 101 09/20/17 12:00 104 23 113/38 100 Mechanical Ventilator 70 09/20/17 11:00 111 25 123/43 100 Mechanical Ventilator 70 09/20/17 10:39 110 28 70 09/20/17 10:00 113 27 120/42 100 Mechanical Ventilator 70 09/20/17 09:00 116 28 109/44 100 Mechanical Ventilator 70 09/20/17 08:55 116 29 70 09/20/17 08:00 70 09/20/17 08:00 99.3 113 29 116/39 100 Mechanical Ventilator 70 99.3 09/20/17 08:00 108 09/20/17 07:00 105 27 116/42 100 Mechanical Ventilator 70 09/20/17 06:56 116 27 70 09/20/17 06:00 107 26 107/37 100 Mechanical Ventilator 70 09/20/17 05:14 108 111/35 09/20/17 05:10 104 27 70 09/20/17 05:00 109 25 107/36 100 Mechanical Ventilator 70 09/20/17 04:00 70 09/20/17 04:00 104 09/20/17 04:00 96.9 102 26 105/35 100 Mechanical Ventilator 70 96.9 09/20/17 03:05 109 24 70 09/20/17 03:00 104 28 98/68 100 Mechanical Ventilator 70 09/20/17 02:00 104 26 108/62 100 Mechanical Ventilator 70 09/20/17 01:27 106 29 70 09/20/17 01:00 106 28 113/43 99 Mechanical Ventilator 70 09/20/17 00:00 115 09/20/17 00:00 70 09/20/17 00:00 98.0 110 27 120/44 100 Mechanical Ventilator 70 98.0 Intake and Output 09/19/17 09/20/17 19:00 07:00 Intake Total 525 ml 1145 ml Output Total 495 ml 660 ml Balance 30 ml 485 ml Intake Free Water 300 ml 300 ml IV Total 305 ml Tube Feeding 225 ml 540 ml Output Urine Total 495 ml 660 ml # Bowel Movements 3 3 Laboratory Tests 09/20/17 00:25: Vancomycin Level Trough 36.8H 09/20/17 04:00: White Blood Count 18.2H, Red Blood Count 2.58L, Hemoglobin 8.4L, Hematocrit 25.9L, Mean Corpuscular Volume 100H, Mean Corpuscular Hemoglobin 32.6H, Mean Corpuscular Hemoglobin Concent 32.5, Red Cell Distribution Width 16.8H, Platelet Count 83#L, Mean Platelet Volume 7.3, Neutrophils (%) (Auto) , Lymphocytes (%) (Auto) , Monocytes (%) (Auto) , Eosinophils (%) (Auto) , Basophils (%) (Auto) , Differential Total Cells Counted 100, Neutrophils % ( Manual) 88H, Lymphocytes % (Manual) 6L, Monocytes % (Manual) 6, Eosinophils % ( Manual) 0, Basophils % (Manual) 0, Band Neutrophils 0, Nucleated Red Blood Cells 3, Platelet Estimate DecreasedL, Platelet Morphology Normal, Polychromasia 1+, Hypochromasia 1+, Anisocytosis 1+, Macrocytosis 1+, Sodium Level 152H, Potassium Level 4.3, Chloride Level 118H, Carbon Dioxide Level 23, Anion Gap 11, Blood Urea Nitrogen 59H, Creatinine 1.1, Estimat Glomerular Filtration Rate , Glucose Level 216H, Uric Acid 5.7, Calcium Level 8.5, Phosphorus Level 3.6, Magnesium Level 2.2, Total Bilirubin 1.2H, Direct Bilirubin 0.7H, Aspartate Amino Transf (AST/SGOT) 73H, Alanine Aminotransferase (ALT/SGPT) 64, Alkaline Phosphatase 541H, Pro-B-Type Natriuretic Peptide 8430H, Total Protein 5.7L, Albumin 1.6L, Globulin 4.1, Albumin/Globulin Ratio 0.4L Height (Feet): 5 Height (Inches): 0.00 Weight (Pounds): 99 General Appearance: no apparent distress, lethargic, confused Dary Nixon M.D. Sep 20, 2017 23:57
[2017-09-21] VITALS (24 sets, daily range): BP systolic 93–138; BP diastolic 36–59
[2017-09-21 05:25] LABS: HEMATOCRIT 22.2 % (37.0-47.0); HEMOGLOBIN 7.4 G/DL (12.0-16.0); MEAN CORPUSCULAR VOLUME 101 FL (80-99); PLATELET COUNT 14 K/UL (150-450); RED BLOOD COUNT 2.21 M/UL (4.20-5.40); RED CELL DISTRIBUTION WIDTH 17.4 % (11.6-14.8); WHITE BLOOD COUNT 19.1 K/UL (4.8-10.8)
[2017-09-21] MEDS: Acetaminophen 650mg/20.3ml NG PRN (06:04)
[2017-09-21] MEDS: dilTIAZem HCl 30mg tab NG SCH ×3 (06:04→21:34)
[2017-09-21] MEDS: NovoLOG Insulin Flexpen SUBQ SCH ×3 (06:05→17:36)
[2017-09-21 06:26] LABS: ALANINE AMINOTRANSFERASE 50 U/L (12-78); ALBUMIN 1.3 G/DL (3.4-5.0); ALBUMIN/GLOBULIN RATIO 0.3 (1.0-2.7); ALKALINE PHOSPHATASE 594 U/L (46-116); ANION GAP 9 mmol/L (5-15); ASPARTATE AMINO TRANSFERASE 72 U/L (15-37); BLOOD UREA NITROGEN 60 mg/dL (7-18); CALCIUM 8.7 MG/DL (8.5-10.1); CARBON DIOXIDE 24 MMOL/L (21-32); CHLORIDE 121 MMOL/L (98-107); CREATININE 1.1 MG/DL (0.55-1.30); PHOSPHORUS 4.7 MG/DL (2.5-4.9); POTASSIUM 4.5 MMOL/L (3.5-5.1); SODIUM 154 MMOL/L (136-145)
[2017-09-21] MEDS: Pantoprazole Inj IV SCH (09:53)
[2017-09-21] MEDS: Meropenem 1 GM in NS 55 ML IVPB SCH ×2 (09:53→20:44)
--- NOTE | 2017-09-21 10:00 | Pulmonolgy Critical Care Note ---
Critical Care - Asmt/Plan Problems: (1) ARDS (adult respiratory distress syndrome) (2) Aspiration pneumonia (3) Protein-calorie malnutrition, severe (4) Diabetes mellitus (5) Anemia Assessment/Plan: improving overall Respiratory: monitor respiratory rate, adjust FIO2, CXR Cardiac: continue to monitor HR/BP Renal: F/U I&O Infectious Disease: check cultures, continue antibiotics Gastrointestinal: continue feedings/current rate Endocrine: check HgA1C Neurologic: PRN Ativan, PRN Morphine Prophylaxis: Protonix, Heparin Disposition: keep in ICU Notes Reviewed: tube bender hand Discussed with: nurses Critical Care - Objective Last 24 Hour Vital Signs Date Time Temp Pulse Resp B/P (MAP) Pulse Ox O2 Delivery O2 Flow Rate FiO2 09/21/17 09:13 97 23 70 09/21/17 08:00 70 09/21/17 08:00 99.2 101 26 109/36 100 Mechanical Ventilator 70 99.2 09/21/17 07:03 110 31 70 09/21/17 07:00 99.3 102 31 93/36 99 Mechanical Ventilator 70 99.3 09/21/17 06:34 99.3 09/21/17 06:04 106 118/49 09/21/17 06:04 100.4 09/21/17 06:00 109 31 108/37 99 Mechanical Ventilator 70 09/21/17 05:34 116 30 70 09/21/17 05:00 116 31 138/59 99 Mechanical Ventilator 70 09/21/17 04:00 123 09/21/17 04:00 100.2 123 31 135/42 99 Mechanical Ventilator 70 100.2 09/21/17 04:00 70 09/21/17 03:29 118 29 70 09/21/17 03:00 120 31 107/36 99 Mechanical Ventilator 70 09/21/17 02:00 115 31 106/50 99 Mechanical Ventilator 70 09/21/17 01:49 117 31 70 09/21/17 01:00 110 31 105/42 99 Mechanical Ventilator 70 09/21/17 00:00 99.0 111 31 111/46 99 Mechanical Ventilator 70 99.0 09/21/17 00:00 70 09/21/17 00:00 108 09/20/17 23:22 109 30 70 09/20/17 23:00 110 31 117/46 98 Mechanical Ventilator 70 09/20/17 22:16 113 126/50 09/20/17 22:00 113 31 123/48 98 Mechanical Ventilator 70 09/20/17 21:02 104 30 70 09/20/17 21:00 106 28 108/39 100 Mechanical Ventilator 70 09/20/17 20:00 70 09/20/17 20:00 98.4 107 26 108/39 100 Mechanical Ventilator 70 98.4 09/20/17 20:00 105 09/20/17 19:00 106 26 96/39 100 09/20/17 18:46 114 22 70 09/20/17 18:00 101 25 109/38 100 Mechanical Ventilator 70 09/20/17 17:00 109 24 114/45 100 Mechanical Ventilator 70 09/20/17 16:55 107 24 70 09/20/17 16:00 70 09/20/17 16:00 98.6 111 26 111/50 100 Mechanical Ventilator 70 98.6 09/20/17 16:00 106 09/20/17 15:17 112 27 70 09/20/17 15:00 108 27 117/45 100 Mechanical Ventilator 70 09/20/17 14:04 103 119/38 09/20/17 14:00 112 27 119/43 100 Mechanical Ventilator 70 09/20/17 13:00 103 24 119/38 100 Mechanical Ventilator 70 09/20/17 12:34 103 30 70 09/20/17 12:00 70 09/20/17 12:00 101 09/20/17 12:00 104 23 113/38 100 Mechanical Ventilator 70 09/20/17 11:00 111 25 123/43 100 Mechanical Ventilator 70 09/20/17 10:39 110 28 70 09/20/17 10:00 113 27 120/42 100 Mechanical Ventilator 70 Status: awake Condition: critical HEENT: atraumatic Neck: full ROM Lungs: clear Heart: HR/BP stable, HR/BP unstable Abdomen: non-tender, active bowel sounds Extremities: edema Decubiti: location, stage Accucheck: 221 Critical Care - Subjective Condition: critical EKG Rhythm: Sinus Rhythm FI02: 70 Vent Support Breath Rate: 18 Vent Support Mode: AC Vent Tidal Volume: 500 Sputum Amount: Small PEEP: 7.0 PIP: 43 Tube Feeding Amount: 45 I&O: Intake and Output 09/20/17 09/21/17 19:00 07:00 Intake Total 795 ml 750 ml Output Total 420 ml 650 ml Balance 375 ml 100 ml Intake Free Water 200 ml 210 ml IV Total 55 ml Tube Feeding 540 ml 540 ml Output Urine Total 420 ml 650 ml # Bowel Movements 2 5 CXR: improving ET-Tube: 7.5 ET Position: 21 Labs: Laboratory Tests Test 09/21/17 04:25 09/21/17 09:15 White Blood Count 19.1 K/UL (4.8-10.8) H Red Blood Count 2.21 M/UL (4.20-5.40) L Hemoglobin 7.4 G/DL (12.0-16.0) L Hematocrit 22.2 % (37.0-47.0) L Mean Corpuscular Volume 101 FL (80-99) H Mean Corpuscular Hemoglobin 33.2 PG (27.0-31.0) H Mean Corpuscular Hemoglobin Concent 33.1 G/DL (32.0-36.0) Red Cell Distribution Width 17.4 % (11.6-14.8) H Platelet Count 14 K/UL (150-450) #L Mean Platelet Volume 12.4 FL (6.5-10.1) H Neutrophils (%) (Auto) % (45.0-75.0) Lymphocytes (%) (Auto) % (20.0-45.0) Monocytes (%) (Auto) % (1.0-10.0) Eosinophils (%) (Auto) % (0.0-3.0) Basophils (%) (Auto) % (0.0-2.0) Neutrophils % (Manual) Pending Lymphocytes % (Manual) Pending Platelet Estimate Pending Platelet Morphology Pending Sodium Level 154 MMOL/L (136-145) H Potassium Level 4.5 MMOL/L (3.5-5.1) Chloride Level 121 MMOL/L (98-107) H Carbon Dioxide Level 24 MMOL/L (21-32) Anion Gap 9 mmol/L (5-15) Blood Urea Nitrogen 60 mg/dL (7-18) H Creatinine 1.1 MG/DL (0.55-1.30) Estimat Glomerular Filtration Rate mL/min (>60) Glucose Level 183 MG/DL (74-106) H Calcium Level 8.7 MG/DL (8.5-10.1) Phosphorus Level 4.7 MG/DL (2.5-4.9) Magnesium Level 2.3 MG/DL (1.8-2.4) Total Bilirubin 1.0 MG/DL (0.2-1.0) Aspartate Amino Transf (AST/SGOT) 72 U/L (15-37) H Alanine Aminotransferase (ALT/SGPT) 50 U/L (12-78) Alkaline Phosphatase 594 U/L (46-116) H Total Protein 5.2 G/DL (6.4-8.2) L Albumin 1.3 G/DL (3.4-5.0) L Globulin 3.9 g/dL Albumin/Globulin Ratio 0.3 (1.0-2.7) L Arterial Blood pH 7.385 (7.350-7.450) Arterial Blood Partial Pressure CO2 37.5 mmHg (35.0-45.0) Arterial Blood Partial Pressure O2 91.5 mmHg (75.0-100.0) Arterial Blood HCO3 21.9 mmol/L (22.0-26.0) L Arterial Blood Oxygen Saturation 96.2 % (92.0-98.0) Arterial Blood Base Excess -2.8 Luis A Test Positive ARUNA VANEGAS Sep 21, 2017 10:00
--- NOTE | 2017-09-21 10:42 | Diagnostic Imaging Report ---
Indication: Shortness of breath Technique: XRAY Chest 1v Comparison: 09/20/2017 Findings: Endotracheal tube and nasogastric tube are unchanged. Bilateral interstitial and airspace opacities are unchanged. Osseous structures are stable. Impression: No significant change from 09/20/2017.
--- NOTE | 2017-09-21 12:18 | General Progress Note ---
Assessment/Plan Assessment/Plan 1. Thrombocytopenia, severe and progressive, acute onset, likely secondary to underlying infection, aspiration pneumonia versus HIT. --> Antibody test is pending. Heparin has been discontinued on 09/18/2017. --> Duplex of the lower extremities is negative, therefore less likely HIT and other causes are more likely such as underlying infection. 2. Anemia due to underlying chronic disease. Continue to closely monitor. --> Hemoglobin goal is above 7. --> Anemia workup has been reviewed at this point. --> Transfuse if hemoglobin less than 7. 3. Community-acquired pneumonia versus hospital-acquired. --> The patient on broad-spectrum antibiotics. --> Urine culture growing E. coli. Continue to closely monitor. 4. Transaminitis. She has been seen by GI Service. Continue to closely monitor. 5. Low-grade fever. Closely observe. 6. Leukocytosis. --> On abx Subjective Date patient seen: Sep 20, 2017 Constitutional: Denies: no symptoms, chills, diaphoresis, fever, malaise, weakness, other HEENT: Denies: no symptoms, eye pain, blurred vision, tearing, double vision, ear pain, ear discharge, nose pain, nose congestion, throat pain, throat swelling, mouth pain, mouth swelling, other Cardiovascular: Denies: no symptoms, chest pain, edema, irregular heart rate, lightheadedness, palpitations, syncope, other Respiratory: Denies: no symptoms, cough, orthopnea, shortness of breath, SOB with excertion, SOB at rest, sputum, stridor, wheezing, other Gastrointestinal/Abdominal: Denies: no symptoms, abdomen distended, abdominal pain, black stools, tarry stools, blood in stool, constipated, diarrhea, difficulty swallowing, nausea, poor appetite, poor fluid intake, rectal bleeding , vomiting, other Genitourinary: Denies: no symptoms, burning, discharge, frequency, flank pain, hematuria, incontinence, pain, urgency, other 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: Denies: no symptoms, anxiety, depressed, emotional problems, headache, numbness, paresthesia, pre-existing deficit, seizure, tingling, tremors, weakness, other Hematologic/Lymphatic: Reports: anemia Allergies: Coded Allergies: No Known Allergies (Verified , 11/18/08) Subjective Leukocytosis improving. Pt in ICU. Objective VS - Last 72 Hours, by Label Date Time Temp Pulse Resp B/P (MAP) Pulse Ox O2 Delivery O2 Flow Rate FiO2 09/21/17 12:00 60 09/21/17 11:18 102 29 60 09/21/17 11:00 60 09/21/17 11:00 104 27 118/46 99 Mechanical Ventilator 70 09/21/17 10:00 97.6 104 26 115/40 100 Mechanical Ventilator 70 97.6 09/21/17 09:13 97 23 70 09/21/17 09:00 98.6 100 23 115/45 100 Mechanical Ventilator 70 98.6 09/21/17 08:00 70 09/21/17 08:00 99.2 101 26 109/36 100 Mechanical Ventilator 70 99.2 09/21/17 08:00 97 09/21/17 07:03 110 31 70 09/21/17 07:00 99.3 102 31 93/36 99 Mechanical Ventilator 70 99.3 09/21/17 06:34 99.3 09/21/17 06:04 106 118/49 09/21/17 06:04 100.4 09/21/17 06:00 109 31 108/37 99 Mechanical Ventilator 70 09/21/17 05:34 116 30 70 09/21/17 05:00 116 31 138/59 99 Mechanical Ventilator 70 09/21/17 04:00 123 09/21/17 04:00 100.2 123 31 135/42 99 Mechanical Ventilator 70 100.2 09/21/17 04:00 70 09/21/17 03:29 118 29 70 09/21/17 03:00 120 31 107/36 99 Mechanical Ventilator 70 09/21/17 02:00 115 31 106/50 99 Mechanical Ventilator 70 09/21/17 01:49 117 31 70 09/21/17 01:00 110 31 105/42 99 Mechanical Ventilator 70 09/21/17 00:00 99.0 111 31 111/46 99 Mechanical Ventilator 70 99.0 09/21/17 00:00 70 09/21/17 00:00 108 09/20/17 23:22 109 30 70 09/20/17 23:00 110 31 117/46 98 Mechanical Ventilator 70 09/20/17 22:16 113 126/50 09/20/17 22:00 113 31 123/48 98 Mechanical Ventilator 70 09/20/17 21:02 104 30 70 3/10/18 21:00 106 28 108/39 100 Mechanical Ventilator 70 09/20/17 20:00 70 09/20/17 20:00 98.4 107 26 108/39 100 Mechanical Ventilator 70 98.4 09/20/17 20:00 105 09/20/17 19:00 106 26 96/39 100 09/20/17 18:46 114 22 70 09/20/17 18:00 101 25 109/38 100 Mechanical Ventilator 70 09/20/17 17:00 109 24 114/45 100 Mechanical Ventilator 70 09/20/17 16:55 107 24 70 09/20/17 16:00 70 09/20/17 16:00 98.6 111 26 111/50 100 Mechanical Ventilator 70 98.6 09/20/17 16:00 106 09/20/17 15:17 112 27 70 09/20/17 15:00 108 27 117/45 100 Mechanical Ventilator 70 09/20/17 14:04 103 119/38 09/20/17 14:00 112 27 119/43 100 Mechanical Ventilator 70 09/20/17 13:00 103 24 119/38 100 Mechanical Ventilator 70 09/20/17 12:34 103 30 70 09/20/17 12:00 70 09/20/17 12:00 101 09/20/17 12:00 104 23 113/38 100 Mechanical Ventilator 70 09/20/17 11:00 111 25 123/43 100 Mechanical Ventilator 70 09/20/17 10:39 110 28 70 09/20/17 10:00 113 27 120/42 100 Mechanical Ventilator 70 09/20/17 09:00 116 28 109/44 100 Mechanical Ventilator 70 09/20/17 08:55 116 29 70 09/20/17 08:00 70 09/20/17 08:00 99.3 113 29 116/39 100 Mechanical Ventilator 70 99.3 09/20/17 08:00 108 09/20/17 07:00 105 27 116/42 100 Mechanical Ventilator 70 09/20/17 06:56 116 27 70 09/20/17 06:00 107 26 107/37 100 Mechanical Ventilator 70 09/20/17 05:14 108 111/35 09/20/17 05:10 104 27 70 09/20/17 05:00 109 25 107/36 100 Mechanical Ventilator 70 09/20/17 04:00 70 09/20/17 04:00 104 09/20/17 04:00 96.9 102 26 105/35 100 Mechanical Ventilator 70 96.9 09/20/17 03:05 109 24 70 09/20/17 03:00 104 28 98/68 100 Mechanical Ventilator 70 09/20/17 02:00 104 26 108/62 100 Mechanical Ventilator 70 09/20/17 01:27 106 29 70 09/20/17 01:00 106 28 113/43 99 Mechanical Ventilator 70 09/20/17 00:00 115 09/20/17 00:00 70 09/20/17 00:00 98.0 110 27 120/44 100 Mechanical Ventilator 70 98.0 09/19/17 23:17 114 28 70 09/19/17 23:00 112 28 112/44 99 Mechanical Ventilator 70 09/19/17 22:00 116 30 134/50 98 Mechanical Ventilator 70 09/19/17 21:08 108 120/45 09/19/17 21:01 108 25 70 09/19/17 21:00 117 26 119/47 98 Mechanical Ventilator 70 09/19/17 20:00 70 09/19/17 20:00 116 09/19/17 20:00 98.2 109 26 120/54 99 Mechanical Ventilator 70 98.2 09/19/17 19:00 111 24 126/43 100 Mechanical Ventilator 70 09/19/17 18:57 112 32 70 09/19/17 18:00 110 32 106/40 100 Mechanical Ventilator 70 09/19/17 17:16 111 29 70 09/19/17 17:00 110 30 124/53 100 Mechanical Ventilator 70 09/19/17 16:30 119 09/19/17 16:00 98.9 120 30 109/48 100 Mechanical Ventilator 70 98.9 09/19/17 16:00 70 09/19/17 15:22 100 24 70 09/19/17 15:00 27 119/44 100 Mechanical Ventilator 70 09/19/17 14:00 98.6 115 28 110/39 100 Mechanical Ventilator 70 98.6 09/19/17 13:16 121 100/42 09/19/17 13:00 111 22 108/43 100 Mechanical Ventilator 70 09/19/17 12:50 118 24 70 09/19/17 12:00 70 09/19/17 12:00 124 09/19/17 12:00 98.8 123 27 100/45 100 Mechanical Ventilator 70 98.8 09/19/17 11:02 124 30 70 09/19/17 11:00 121 30 96/43 100 Mechanical Ventilator 70 09/19/17 10:00 118 27 102/43 100 Mechanical Ventilator 70 09/19/17 09:15 123 33 70 09/19/17 09:00 119 31 97/37 100 Mechanical Ventilator 70 09/19/17 09:00 70 09/19/17 08:00 111 09/19/17 08:00 98.5 119 31 122/90 100 Mechanical Ventilator 70 98.5 09/19/17 07:12 111 25 70 09/19/17 07:00 109 31 101/35 98 Mechanical Ventilator 70 09/19/17 06:00 109 32 94/42 98 Mechanical Ventilator 70 09/19/17 05:35 114 111/44 09/19/17 05:20 117 30 70 09/19/17 05:00 118 32 111/44 99 Mechanical Ventilator 70 09/19/17 04:00 98.9 126 31 112/47 95 Mechanical Ventilator 70 98.9 09/19/17 04:00 127 09/19/17 04:00 70 09/19/17 03:18 127 36 70 09/19/17 03:00 128 37 103/46 96 Mechanical Ventilator 70 09/19/17 02:00 98.4 126 31 100/43 96 Mechanical Ventilator 70 98.4 09/19/17 01:20 125 35 70 09/19/17 01:00 98.4 123 31 114/50 96 Mechanical Ventilator 70 98.4 09/19/17 00:00 70 09/19/17 00:00 98.0 122 25 105/55 96 Mechanical Ventilator 70 98.0 09/19/17 00:00 111 09/18/17 23:00 120 26 109/56 95 Mechanical Ventilator 70 09/18/17 22:56 114 31 70 09/18/17 22:00 116 26 105/48 95 Mechanical Ventilator 70 09/18/17 21:45 122 113/54 09/18/17 21:00 114 27 118/58 98 Mechanical Ventilator 70 09/18/17 20:48 126 34 70 09/18/17 20:00 115 31 108/68 97 Mechanical Ventilator 70 09/18/17 20:00 70 09/18/17 20:00 128 3/8/18 19:07 132 37 70 09/18/17 19:00 99.2 130 31 109/54 97 Mechanical Ventilator 75 99.2 09/18/17 18:00 99.1 130 31 107/52 97 Mechanical Ventilator 75 99.1 09/18/17 17:29 126 33 75 09/18/17 17:00 131 31 121/54 97 Mechanical Ventilator 75 09/18/17 16:00 129 09/18/17 16:00 75 09/18/17 16:00 98.6 124 25 107/53 96 Mechanical Ventilator 75 98.6 09/18/17 15:18 130 35 75 09/18/17 15:00 130 31 115/46 96 Mechanical Ventilator 75 09/18/17 14:00 99.5 108 25 104/45 96 Mechanical Ventilator 75 99.5 09/18/17 13:33 136 100/43 09/18/17 13:00 99.4 108 25 104/45 96 Mechanical Ventilator 75 99.4 09/18/17 12:41 131 34 75 09/18/17 12:00 127 09/18/17 12:00 108 25 96/43 96 Mechanical Ventilator 75 09/18/17 12:00 75 Last 24 Hour Vital Signs Date Time Temp Pulse Resp B/P (MAP) Pulse Ox O2 Delivery O2 Flow Rate FiO2 09/21/17 12:00 60 09/21/17 11:18 102 29 60 09/21/17 11:00 60 09/21/17 11:00 104 27 118/46 99 Mechanical Ventilator 70 09/21/17 10:00 97.6 104 26 115/40 100 Mechanical Ventilator 70 97.6 09/21/17 09:13 97 23 70 09/21/17 09:00 98.6 100 23 115/45 100 Mechanical Ventilator 70 98.6 09/21/17 08:00 70 09/21/17 08:00 99.2 101 26 109/36 100 Mechanical Ventilator 70 99.2 09/21/17 08:00 97 09/21/17 07:03 110 31 70 09/21/17 07:00 99.3 102 31 93/36 99 Mechanical Ventilator 70 99.3 09/21/17 06:34 99.3 09/21/17 06:04 106 118/49 09/21/17 06:04 100.4 09/21/17 06:00 109 31 108/37 99 Mechanical Ventilator 70 09/21/17 05:34 116 30 70 09/21/17 05:00 116 31 138/59 99 Mechanical Ventilator 70 09/21/17 04:00 123 09/21/17 04:00 100.2 123 31 135/42 99 Mechanical Ventilator 70 100.2 09/21/17 04:00 70 09/21/17 03:29 118 29 70 09/21/17 03:00 120 31 107/36 99 Mechanical Ventilator 70 09/21/17 02:00 115 31 106/50 99 Mechanical Ventilator 70 09/21/17 01:49 117 31 70 09/21/17 01:00 110 31 105/42 99 Mechanical Ventilator 70 09/21/17 00:00 99.0 111 31 111/46 99 Mechanical Ventilator 70 99.0 09/21/17 00:00 70 09/21/17 00:00 108 09/20/17 23:22 109 30 70 09/20/17 23:00 110 31 117/46 98 Mechanical Ventilator 70 09/20/17 22:16 113 126/50 09/20/17 22:00 113 31 123/48 98 Mechanical Ventilator 70 09/20/17 21:02 104 30 70 09/20/17 21:00 106 28 108/39 100 Mechanical Ventilator 70 09/20/17 20:00 70 09/20/17 20:00 98.4 107 26 108/39 100 Mechanical Ventilator 70 98.4 09/20/17 20:00 105 09/20/17 19:00 106 26 96/39 100 09/20/17 18:46 114 22 70 09/20/17 18:00 101 25 109/38 100 Mechanical Ventilator 70 09/20/17 17:00 109 24 114/45 100 Mechanical Ventilator 70 09/20/17 16:55 107 24 70 09/20/17 16:00 70 09/20/17 16:00 98.6 111 26 111/50 100 Mechanical Ventilator 70 98.6 09/20/17 16:00 106 09/20/17 15:17 112 27 70 09/20/17 15:00 108 27 117/45 100 Mechanical Ventilator 70 09/20/17 14:04 103 119/38 09/20/17 14:00 112 27 119/43 100 Mechanical Ventilator 70 09/20/17 13:00 103 24 119/38 100 Mechanical Ventilator 70 09/20/17 12:34 103 30 70 09/20/17 12:00 70 09/20/17 12:00 101 09/20/17 12:00 104 23 113/38 100 Mechanical Ventilator 70 Intake and Output 09/20/17 09/21/17 20:00 08:00 Intake Total 825 ml 870 ml Output Total 450 ml 670 ml Balance 375 ml 200 ml Intake Free Water 230 ml 280 ml IV Total 55 ml Tube Feeding 540 ml 540 ml Other 50 ml Output Urine Total 450 ml 670 ml # Bowel Movements 3 4 Labs Test 09/18/17 21:25 09/19/17 04:00 09/19/17 06:10 09/20/17 00:25 Fibrinogen 473 mg/dL (200-400) Homocystine 3.9 umol/L (0.0-15.0) Arterial Blood pH 7.287 (7.350-7.450) Arterial Blood Partial Pressure CO2 42.2 mmHg (35.0-45.0) Arterial Blood Partial Pressure O2 69.8 mmHg (75.0-100.0) Arterial Blood HCO3 19.7 mmol/L (22.0-26.0) Arterial Blood Oxygen Saturation 92.1 % (92.0-98.0) Arterial Blood Base Excess -6.5 Luis A Test Positive White Blood Count 19.1 K/UL (4.8-10.8) Red Blood Count 2.66 M/UL (4.20-5.40) Hemoglobin 8.5 G/DL (12.0-16.0) Hematocrit 26.4 % (37.0-47.0) Mean Corpuscular Volume 99 FL (80-99) Mean Corpuscular Hemoglobin 32.2 PG (27.0-31.0) Mean Corpuscular Hemoglobin Concent 32.4 G/DL (32.0-36.0) Red Cell Distribution Width 17.0 % (11.6-14.8) Platelet Count 14 K/UL (150-450) Mean Platelet Volume 15.5 FL (6.5-10.1) Neutrophils (%) (Auto) % (45.0-75.0) Lymphocytes (%) (Auto) % (20.0-45.0) Monocytes (%) (Auto) % (1.0-10.0) Eosinophils (%) (Auto) % (0.0-3.0) Basophils (%) (Auto) % (0.0-2.0) Differential Total Cells Counted 100 Neutrophils % (Manual) 88 % (45-75) Lymphocytes % (Manual) 3 % (20-45) Monocytes % (Manual) 8 % (1-10) Eosinophils % (Manual) 1 % (0-3) Basophils % (Manual) 0 % (0-2) Band Neutrophils 0 % (0-8) Nucleated Red Blood Cells 3 /100 WBC Platelet Estimate Decreased Platelet Morphology Normal Polychromasia 1+ Hypochromasia 1+ Anisocytosis 1+ Sodium Level 150 MMOL/L (136-145) Potassium Level 4.4 MMOL/L (3.5-5.1) Chloride Level 122 MMOL/L (98-107) Carbon Dioxide Level 22 MMOL/L (21-32) Anion Gap 6 mmol/L (5-15) Blood Urea Nitrogen 62 mg/dL (7-18) Creatinine 1.0 MG/DL (0.55-1.30) Estimat Glomerular Filtration Rate mL/min (>60) Glucose Level 187 MG/DL (74-106) Calcium Level 8.0 MG/DL (8.5-10.1) Phosphorus Level 3.0 MG/DL (2.5-4.9) Magnesium Level 2.1 MG/DL (1.8-2.4) Total Bilirubin 1.0 MG/DL (0.2-1.0) Aspartate Amino Transf (AST/SGOT) 70 U/L (15-37) Alanine Aminotransferase (ALT/SGPT) 68 U/L (12-78) Alkaline Phosphatase 457 U/L (46-116) C-Reactive Protein, Quantitative 67.2 mg/dL (0.00-0.90) Total Protein 5.0 G/DL (6.4-8.2) Albumin 1.2 G/DL (3.4-5.0) Globulin 3.8 g/dL Albumin/Globulin Ratio 0.3 (1.0-2.7) Vancomycin Level Trough 36.8 ug/mL (5.0-12.0) Test 09/20/17 04:00 09/21/17 04:25 09/21/17 09:15 White Blood Count 18.2 K/UL (4.8-10.8) 19.1 K/UL (4.8-10.8) Red Blood Count 2.58 M/UL (4.20-5.40) 2.21 M/UL (4.20-5.40) Hemoglobin 8.4 G/DL (12.0-16.0) 7.4 G/DL (12.0-16.0) Hematocrit 25.9 % (37.0-47.0) 22.2 % (37.0-47.0) Mean Corpuscular Volume 100 FL (80-99) 101 FL (80-99) Mean Corpuscular Hemoglobin 32.6 PG (27.0-31.0) 33.2 PG (27.0-31.0) Mean Corpuscular Hemoglobin Concent 32.5 G/DL (32.0-36.0) 33.1 G/DL (32.0-36.0) Red Cell Distribution Width 16.8 % (11.6-14.8) 17.4 % (11.6-14.8) Platelet Count 83 K/UL (150-450) 14 K/UL (150-450) Mean Platelet Volume 7.3 FL (6.5-10.1) 12.4 FL (6.5-10.1) Neutrophils (%) (Auto) % (45.0-75.0) % (45.0-75.0) Lymphocytes (%) (Auto) % (20.0-45.0) % (20.0-45.0) Monocytes (%) (Auto) % (1.0-10.0) % (1.0-10.0) Eosinophils (%) (Auto) % (0.0-3.0) % (0.0-3.0) Basophils (%) (Auto) % (0.0-2.0) % (0.0-2.0) Differential Total Cells Counted 100 100 Neutrophils % (Manual) 88 % (45-75) 72 % (45-75) Lymphocytes % (Manual) 6 % (20-45) 16 % (20-45) Monocytes % (Manual) 6 % (1-10) 11 % (1-10) Eosinophils % (Manual) 0 % (0-3) 1 % (0-3) Basophils % (Manual) 0 % (0-2) 0 % (0-2) Band Neutrophils 0 % (0-8) 0 % (0-8) Nucleated Red Blood Cells 3 /100 WBC 12 /100 WBC Platelet Estimate Decreased Decreased Platelet Morphology Normal Normal Polychromasia 1+ 1+ Hypochromasia 1+ Anisocytosis 1+ 1+ Macrocytosis 1+ 1+ Sodium Level 152 MMOL/L (136-145) 154 MMOL/L (136-145) Potassium Level 4.3 MMOL/L (3.5-5.1) 4.5 MMOL/L (3.5-5.1) Chloride Level 118 MMOL/L (98-107) 121 MMOL/L (98-107) Carbon Dioxide Level 23 MMOL/L (21-32) 24 MMOL/L (21-32) Anion Gap 11 mmol/L (5-15) 9 mmol/L (5-15) Blood Urea Nitrogen 59 mg/dL (7-18) 60 mg/dL (7-18) Creatinine 1.1 MG/DL (0.55-1.30) 1.1 MG/DL (0.55-1.30) Estimat Glomerular Filtration Rate mL/min (>60) mL/min (>60) Glucose Level 216 MG/DL (74-106) 183 MG/DL (74-106) Uric Acid 5.7 MG/DL (2.6-7.2) Calcium Level 8.5 MG/DL (8.5-10.1) 8.7 MG/DL (8.5-10.1) Phosphorus Level 3.6 MG/DL (2.5-4.9) 4.7 MG/DL (2.5-4.9) Magnesium Level 2.2 MG/DL (1.8-2.4) 2.3 MG/DL (1.8-2.4) Total Bilirubin 1.2 MG/DL (0.2-1.0) 1.0 MG/DL (0.2-1.0) Direct Bilirubin 0.7 MG/DL (0.0-0.3) Aspartate Amino Transf (AST/SGOT) 73 U/L (15-37) 72 U/L (15-37) Alanine Aminotransferase (ALT/SGPT) 64 U/L (12-78) 50 U/L (12-78) Alkaline Phosphatase 541 U/L (46-116) 594 U/L (46-116) Pro-B-Type Natriuretic Peptide 8430 pg/mL (0-125) Total Protein 5.7 G/DL (6.4-8.2) 5.2 G/DL (6.4-8.2) Albumin 1.6 G/DL (3.4-5.0) 1.3 G/DL (3.4-5.0) Globulin 4.1 g/dL 3.9 g/dL Albumin/Globulin Ratio 0.4 (1.0-2.7) 0.3 (1.0-2.7) Spherocytes 1+ Arterial Blood pH 7.385 (7.350-7.450) Arterial Blood Partial Pressure CO2 37.5 mmHg (35.0-45.0) Arterial Blood Partial Pressure O2 91.5 mmHg (75.0-100.0) Arterial Blood HCO3 21.9 mmol/L (22.0-26.0) Arterial Blood Oxygen Saturation 96.2 % (92.0-98.0) Arterial Blood Base Excess -2.8 Luis A Test Positive Laboratory Tests 09/21/17 04:25: White Blood Count 19.1H, Red Blood Count 2.21L, Hemoglobin 7.4L, Hematocrit 22.2L, Mean Corpuscular Volume 101H, Mean Corpuscular Hemoglobin 33.2H, Mean Corpuscular Hemoglobin Concent 33.1, Red Cell Distribution Width 17.4H, Platelet Count 14#L, Mean Platelet Volume 12.4H, Neutrophils (%) (Auto) , Lymphocytes (%) (Auto) , Monocytes (%) (Auto) , Eosinophils (%) (Auto) , Basophils (%) (Auto) , Differential Total Cells Counted 100, Neutrophils % ( Manual) 72, Lymphocytes % (Manual) 16L, Monocytes % (Manual) 11H, Eosinophils % (Manual) 1, Basophils % (Manual) 0, Band Neutrophils 0, Nucleated Red Blood Cells 12, Platelet Estimate DecreasedL, Platelet Morphology Normal, Polychromasia 1+, Anisocytosis 1+, Macrocytosis 1+, Spherocytes 1+, Sodium Level 154H, Potassium Level 4.5, Chloride Level 121H, Carbon Dioxide Level 24, Anion Gap 9, Blood Urea Nitrogen 60H, Creatinine 1.1, Estimat Glomerular Filtration Rate , Glucose Level 183H, Calcium Level 8.7, Phosphorus Level 4.7, Magnesium Level 2.3, Total Bilirubin 1.0, Aspartate Amino Transf (AST/SGOT) 72H , Alanine Aminotransferase (ALT/SGPT) 50, Alkaline Phosphatase 594H, Total Protein 5.2L, Albumin 1.3L, Globulin 3.9, Albumin/Globulin Ratio 0.3L 09/21/17 09:15: Arterial Blood pH 7.385, Arterial Blood Partial Pressure CO2 37.5, Arterial Blood Partial Pressure O2 91.5, Arterial Blood HCO3 21.9L, Arterial Blood Oxygen Saturation 96.2, Arterial Blood Base Excess -2.8, Luis A Test Positive Height (Feet): 5 Height (Inches): 0.00 Weight (Pounds): 102 General Appearance: lethargic Respiratory/Chest: decreased breath sounds Abdomen: non tender, soft Johnny Sinha Sep 21, 2017 12:18
--- NOTE | 2017-09-21 15:29 | General Progress Note ---
Assessment/Plan Assessment/Plan Assessment - Resp failure / ARDS - Abnormal LFT with rapid resolution - Anemia with OB (+) stools - thrombocytopenia - Malnutrition - Diarrhea Recommendations - NGT feeds - Elevate HOB - Vent care - Monitor H&H - PPI - check C Diff Subjective Allergies: Coded Allergies: No Known Allergies (Verified , 11/18/08) Subjective on Vent poorly communicative d/w RN some diarrhea noted Objective Last 24 Hour Vital Signs Date Time Temp Pulse Resp B/P (MAP) Pulse Ox O2 Delivery O2 Flow Rate FiO2 09/21/17 15:11 121 112/50 09/21/17 15:00 99.4 119 34 112/50 95 Mechanical Ventilator 70 99.4 09/21/17 14:00 117 26 112/45 95 Mechanical Ventilator 70 09/21/17 13:00 97.8 110 27 110/44 99 Mechanical Ventilator 70 97.8 09/21/17 12:47 112 29 60 09/21/17 12:00 60 09/21/17 12:00 97.8 105 27 119/51 99 Mechanical Ventilator 70 97.8 09/21/17 12:00 105 09/21/17 11:18 102 29 60 09/21/17 11:00 60 09/21/17 11:00 104 27 118/46 99 Mechanical Ventilator 70 09/21/17 10:00 97.6 104 26 115/40 100 Mechanical Ventilator 70 97.6 09/21/17 09:13 97 23 70 09/21/17 09:00 98.6 100 23 115/45 100 Mechanical Ventilator 70 98.6 09/21/17 08:00 70 09/21/17 08:00 99.2 101 26 109/36 100 Mechanical Ventilator 70 99.2 09/21/17 08:00 97 09/21/17 07:03 110 31 70 09/21/17 07:00 99.3 102 31 93/36 99 Mechanical Ventilator 70 99.3 09/21/17 06:34 99.3 09/21/17 06:04 106 118/49 09/21/17 06:04 100.4 09/21/17 06:00 109 31 108/37 99 Mechanical Ventilator 70 09/21/17 05:34 116 30 70 09/21/17 05:00 116 31 138/59 99 Mechanical Ventilator 70 09/21/17 04:00 123 09/21/17 04:00 100.2 123 31 135/42 99 Mechanical Ventilator 70 100.2 09/21/17 04:00 70 09/21/17 03:29 118 29 70 09/21/17 03:00 120 31 107/36 99 Mechanical Ventilator 70 09/21/17 02:00 115 31 106/50 99 Mechanical Ventilator 70 09/21/17 01:49 117 31 70 09/21/17 01:00 110 31 105/42 99 Mechanical Ventilator 70 09/21/17 00:00 99.0 111 31 111/46 99 Mechanical Ventilator 70 99.0 09/21/17 00:00 70 09/21/17 00:00 108 09/20/17 23:22 109 30 70 09/20/17 23:00 110 31 117/46 98 Mechanical Ventilator 70 09/20/17 22:16 113 126/50 09/20/17 22:00 113 31 123/48 98 Mechanical Ventilator 70 09/20/17 21:02 104 30 70 09/20/17 21:00 106 28 108/39 100 Mechanical Ventilator 70 09/20/17 20:00 70 09/20/17 20:00 98.4 107 26 108/39 100 Mechanical Ventilator 70 98.4 09/20/17 20:00 105 09/20/17 19:00 106 26 96/39 100 09/20/17 18:46 114 22 70 09/20/17 18:00 101 25 109/38 100 Mechanical Ventilator 70 09/20/17 17:00 109 24 114/45 100 Mechanical Ventilator 70 09/20/17 16:55 107 24 70 09/20/17 16:00 70 09/20/17 16:00 98.6 111 26 111/50 100 Mechanical Ventilator 70 98.6 09/20/17 16:00 106 Intake and Output 09/20/17 09/21/17 19:00 07:00 Intake Total 795 ml 750 ml Output Total 420 ml 650 ml Balance 375 ml 100 ml Intake Free Water 200 ml 210 ml IV Total 55 ml Tube Feeding 540 ml 540 ml Output Urine Total 420 ml 650 ml # Bowel Movements 2 5 Laboratory Tests 09/21/17 04:25: White Blood Count 19.1H, Red Blood Count 2.21L, Hemoglobin 7.4L, Hematocrit 22.2L, Mean Corpuscular Volume 101H, Mean Corpuscular Hemoglobin 33.2H, Mean Corpuscular Hemoglobin Concent 33.1, Red Cell Distribution Width 17.4H, Platelet Count 14#L, Mean Platelet Volume 12.4H, Neutrophils (%) (Auto) , Lymphocytes (%) (Auto) , Monocytes (%) (Auto) , Eosinophils (%) (Auto) , Basophils (%) (Auto) , Differential Total Cells Counted 100, Neutrophils % ( Manual) 72, Lymphocytes % (Manual) 16L, Monocytes % (Manual) 11H, Eosinophils % (Manual) 1, Basophils % (Manual) 0, Band Neutrophils 0, Nucleated Red Blood Cells 12, Platelet Estimate DecreasedL, Platelet Morphology Normal, Polychromasia 1+, Anisocytosis 1+, Macrocytosis 1+, Spherocytes 1+, Sodium Level 154H, Potassium Level 4.5, Chloride Level 121H, Carbon Dioxide Level 24, Anion Gap 9, Blood Urea Nitrogen 60H, Creatinine 1.1, Estimat Glomerular Filtration Rate , Glucose Level 183H, Calcium Level 8.7, Phosphorus Level 4.7, Magnesium Level 2.3, Total Bilirubin 1.0, Aspartate Amino Transf (AST/SGOT) 72H , Alanine Aminotransferase (ALT/SGPT) 50, Alkaline Phosphatase 594H, Total Protein 5.2L, Albumin 1.3L, Globulin 3.9, Albumin/Globulin Ratio 0.3L 09/21/17 09:15: Arterial Blood pH 7.385, Arterial Blood Partial Pressure CO2 37.5, Arterial Blood Partial Pressure O2 91.5, Arterial Blood HCO3 21.9L, Arterial Blood Oxygen Saturation 96.2, Arterial Blood Base Excess -2.8, Luis A Test Positive Height (Feet): 5 Height (Inches): 0.00 Weight (Pounds): 102 Objective WDWN NCAT supple CTA RRR abd soft confused ARNULFO DURON Sep 21, 2017 15:29
--- NOTE | 2017-09-21 16:02 | Nephrology Progress Note ---
Assessment/Plan Problem List: (1) ARDS (adult respiratory distress syndrome) (2) Electrolyte imbalance (3) Thrombocytopenia Assessment Na 154 Platelets [address]809 (1) ARDS (adult respiratory distress syndrome) (2) Aspiration pneumonia (3) Protein-calorie malnutrition, severe (4) Diabetes mellitus (5) Anemia , aplastic by history (6) DM (7) UTI (8) Electrolyte imbalance (9) HTN (10) Depression (11) RA . Plan on cardiazem water via NGT Adjust BP meds K and Phos supplement as needed Monitor renal parameters and urine output avoid nephrotoxics per orders discussed with RN Left ventricular ejection fraction estimated to be 55 %. Subjective ROS Limited/Unobtainable: Yes Objective Objective Last 24 Hour Vital Signs Date Time Temp Pulse Resp B/P (MAP) Pulse Ox O2 Delivery O2 Flow Rate FiO2 09/21/17 15:31 113 32 60 09/21/17 15:11 121 112/50 09/21/17 15:00 99.4 119 34 112/50 95 Mechanical Ventilator 70 99.4 09/21/17 14:00 117 26 112/45 95 Mechanical Ventilator 70 09/21/17 13:00 97.8 110 27 110/44 99 Mechanical Ventilator 70 97.8 09/21/17 12:47 112 29 60 09/21/17 12:00 60 09/21/17 12:00 97.8 105 27 119/51 99 Mechanical Ventilator 70 97.8 09/21/17 12:00 105 09/21/17 11:18 102 29 60 09/21/17 11:00 60 09/21/17 11:00 104 27 118/46 99 Mechanical Ventilator 70 09/21/17 10:00 97.6 104 26 115/40 100 Mechanical Ventilator 70 97.6 09/21/17 09:13 97 23 70 09/21/17 09:00 98.6 100 23 115/45 100 Mechanical Ventilator 70 98.6 09/21/17 08:00 70 09/21/17 08:00 99.2 101 26 109/36 100 Mechanical Ventilator 70 99.2 09/21/17 08:00 97 09/21/17 07:03 110 31 70 09/21/17 07:00 99.3 102 31 93/36 99 Mechanical Ventilator 70 99.3 09/21/17 06:34 99.3 09/21/17 06:04 106 118/49 09/21/17 06:04 100.4 09/21/17 06:00 109 31 108/37 99 Mechanical Ventilator 70 09/21/17 05:34 116 30 70 09/21/17 05:00 116 31 138/59 99 Mechanical Ventilator 70 09/21/17 04:00 123 09/21/17 04:00 100.2 123 31 135/42 99 Mechanical Ventilator 70 100.2 09/21/17 04:00 70 09/21/17 03:29 118 29 70 09/21/17 03:00 120 31 107/36 99 Mechanical Ventilator 70 09/21/17 02:00 115 31 106/50 99 Mechanical Ventilator 70 09/21/17 01:49 117 31 70 09/21/17 01:00 110 31 105/42 99 Mechanical Ventilator 70 09/21/17 00:00 99.0 111 31 111/46 99 Mechanical Ventilator 70 99.0 09/21/17 00:00 70 09/21/17 00:00 108 09/20/17 23:22 109 30 70 09/20/17 23:00 110 31 117/46 98 Mechanical Ventilator 70 09/20/17 22:16 113 126/50 09/20/17 22:00 113 31 123/48 98 Mechanical Ventilator 70 09/20/17 21:02 104 30 70 09/20/17 21:00 106 28 108/39 100 Mechanical Ventilator 70 09/20/17 20:00 70 09/20/17 20:00 98.4 107 26 108/39 100 Mechanical Ventilator 70 98.4 09/20/17 20:00 105 09/20/17 19:00 106 26 96/39 100 09/20/17 18:46 114 22 70 09/20/17 18:00 101 25 109/38 100 Mechanical Ventilator 70 09/20/17 17:00 109 24 114/45 100 Mechanical Ventilator 70 09/20/17 16:55 107 24 70 Intake and Output 09/20/17 09/21/17 19:00 07:00 Intake Total 795 ml 750 ml Output Total 420 ml 650 ml Balance 375 ml 100 ml Intake Free Water 200 ml 210 ml IV Total 55 ml Tube Feeding 540 ml 540 ml Output Urine Total 420 ml 650 ml # Bowel Movements 2 5 Laboratory Tests 09/21/17 04:25: White Blood Count 19.1H, Red Blood Count 2.21L, Hemoglobin 7.4L, Hematocrit 22.2L, Mean Corpuscular Volume 101H, Mean Corpuscular Hemoglobin 33.2H, Mean Corpuscular Hemoglobin Concent 33.1, Red Cell Distribution Width 17.4H, Platelet Count 14#L, Mean Platelet Volume 12.4H, Neutrophils (%) (Auto) , Lymphocytes (%) (Auto) , Monocytes (%) (Auto) , Eosinophils (%) (Auto) , Basophils (%) (Auto) , Differential Total Cells Counted 100, Neutrophils % ( Manual) 72, Lymphocytes % (Manual) 16L, Monocytes % (Manual) 11H, Eosinophils % (Manual) 1, Basophils % (Manual) 0, Band Neutrophils 0, Nucleated Red Blood Cells 12, Platelet Estimate DecreasedL, Platelet Morphology Normal, Polychromasia 1+, Anisocytosis 1+, Macrocytosis 1+, Spherocytes 1+, Sodium Level 154H, Potassium Level 4.5, Chloride Level 121H, Carbon Dioxide Level 24, Anion Gap 9, Blood Urea Nitrogen 60H, Creatinine 1.1, Estimat Glomerular Filtration Rate , Glucose Level 183H, Calcium Level 8.7, Phosphorus Level 4.7, Magnesium Level 2.3, Total Bilirubin 1.0, Aspartate Amino Transf (AST/SGOT) 72H , Alanine Aminotransferase (ALT/SGPT) 50, Alkaline Phosphatase 594H, Total Protein 5.2L, Albumin 1.3L, Globulin 3.9, Albumin/Globulin Ratio 0.3L 09/21/17 09:15: Arterial Blood pH 7.385, Arterial Blood Partial Pressure CO2 37.5, Arterial Blood Partial Pressure O2 91.5, Arterial Blood HCO3 21.9L, Arterial Blood Oxygen Saturation 96.2, Arterial Blood Base Excess -2.8, Luis A Test Positive Height (Feet): 5 Height (Inches): 0.00 Weight (Pounds): 102 General Appearance: no apparent distress Cardiovascular: tachycardia Respiratory/Chest: decreased breath sounds Abdomen: distended YAEL HANSEN Sep 21, 2017 16:02
--- NOTE | 2017-09-21 17:23 | Internal Med Progress Note ---
Subjective Date of Service: Sep 21, 2017 Physician Name Sina Bowens Attending Physician Jesus Barahona MD Current Medications Medications (Trade) Dose Ordered Sig/Hermes Route PRN Reason Start Time Stop Time Status Last Admin Dose Admin Acetaminophen (Tylenol) 650 mg EVERY 6 HOURS PRN NG Fever/Headache/Mild Pain 09/13/17 20:45 10/13/17 20:44 09/21/17 06:04 Clonidine HCl (Catapres Tab) 0.1 mg Q4H PRN ORAL SBP>160 UNRELIEVED BY HYDRALAZ 09/16/17 16:45 10/15/17 16:59 Dextrose (Dextrose 50%) STAT PRN IV Hypoglycemia 09/13/17 15:00 10/13/17 14:59 Diltiazem HCl (Cardizem) 30 mg EVERY 8 HOURS NG 09/18/17 22:00 10/18/17 21:59 09/21/17 15:11 Insulin Aspart (NovoLOG) EVERY 6 HOURS SUBQ 09/17/17 12:00 10/17/17 11:59 09/21/17 12:13 Meropenem 1 gm/ Sodium Chloride 55 ml @ 110 mls/hr Q12HR IVPB 09/19/17 21:00 09/24/17 20:59 09/21/17 09:53 Oseltamivir Phosphate (Tamiflu) 30 mg Q12HR ORAL 09/17/17 21:00 09/21/17 23:59 09/21/17 09:53 Pantoprazole (Protonix) 40 mg DAILY IV 09/13/17 09:00 10/13/17 08:59 09/21/17 09:53 Polyethylene Glycol (Miralax) 17 gm BEDTIME ORAL 09/14/17 21:00 10/14/17 20:59 09/18/17 20:42 Allergies: Coded Allergies: No Known Allergies (Verified , 11/18/08) ROS Limited/Unobtainable: Yes Subjective 76 YO F admitted with Shortness of breath, now respiratory failure. Intubated and sedated. Cover for Internal Med-Dr. Barahona. ICU Objective Last Vital Signs Date Time Temp Pulse Resp B/P (MAP) Pulse Ox O2 Delivery O2 Flow Rate FiO2 09/21/17 17:00 98.6 112 30 113/40 91 Mechanical Ventilator 70 98.6 Laboratory Tests Test 09/21/17 04:25 09/21/17 09:15 White Blood Count 19.1 K/UL (4.8-10.8) H Red Blood Count 2.21 M/UL (4.20-5.40) L Hemoglobin 7.4 G/DL (12.0-16.0) L Hematocrit 22.2 % (37.0-47.0) L Mean Corpuscular Volume 101 FL (80-99) H Mean Corpuscular Hemoglobin 33.2 PG (27.0-31.0) H Mean Corpuscular Hemoglobin Concent 33.1 G/DL (32.0-36.0) Red Cell Distribution Width 17.4 % (11.6-14.8) H Platelet Count 14 K/UL (150-450) #L Mean Platelet Volume 12.4 FL (6.5-10.1) H Neutrophils (%) (Auto) % (45.0-75.0) Lymphocytes (%) (Auto) % (20.0-45.0) Monocytes (%) (Auto) % (1.0-10.0) Eosinophils (%) (Auto) % (0.0-3.0) Basophils (%) (Auto) % (0.0-2.0) Differential Total Cells Counted 100 Neutrophils % (Manual) 72 % (45-75) Lymphocytes % (Manual) 16 % (20-45) L Monocytes % (Manual) 11 % (1-10) H Eosinophils % (Manual) 1 % (0-3) Basophils % (Manual) 0 % (0-2) Band Neutrophils 0 % (0-8) Nucleated Red Blood Cells 12 /100 WBC Platelet Estimate Decreased L Platelet Morphology Normal Polychromasia 1+ Anisocytosis 1+ Macrocytosis 1+ Spherocytes 1+ Sodium Level 154 MMOL/L (136-145) H Potassium Level 4.5 MMOL/L (3.5-5.1) Chloride Level 121 MMOL/L (98-107) H Carbon Dioxide Level 24 MMOL/L (21-32) Anion Gap 9 mmol/L (5-15) Blood Urea Nitrogen 60 mg/dL (7-18) H Creatinine 1.1 MG/DL (0.55-1.30) Estimat Glomerular Filtration Rate mL/min (>60) Glucose Level 183 MG/DL (74-106) H Calcium Level 8.7 MG/DL (8.5-10.1) Phosphorus Level 4.7 MG/DL (2.5-4.9) Magnesium Level 2.3 MG/DL (1.8-2.4) Total Bilirubin 1.0 MG/DL (0.2-1.0) Aspartate Amino Transf (AST/SGOT) 72 U/L (15-37) H Alanine Aminotransferase (ALT/SGPT) 50 U/L (12-78) Alkaline Phosphatase 594 U/L (46-116) H Total Protein 5.2 G/DL (6.4-8.2) L Albumin 1.3 G/DL (3.4-5.0) L Globulin 3.9 g/dL Albumin/Globulin Ratio 0.3 (1.0-2.7) L Arterial Blood pH 7.385 (7.350-7.450) Arterial Blood Partial Pressure CO2 37.5 mmHg (35.0-45.0) Arterial Blood Partial Pressure O2 91.5 mmHg (75.0-100.0) Arterial Blood HCO3 21.9 mmol/L (22.0-26.0) L Arterial Blood Oxygen Saturation 96.2 % (92.0-98.0) Arterial Blood Base Excess -2.8 Luis A Test Positive Intake and Output 09/20/17 09/21/17 19:00 07:00 Intake Total 795 ml 750 ml Output Total 420 ml 650 ml Balance 375 ml 100 ml Intake Free Water 200 ml 210 ml IV Total 55 ml Tube Feeding 540 ml 540 ml Output Urine Total 420 ml 650 ml # Bowel Movements 2 5 Objective General Appearance: lethargic, thin EENT: normal ENT inspection Neck: non-tender, normal alignment, supple Cardiovascular: normal peripheral pulses, normal rate, regular rhythm, no gallop/murmur, no JVD Respiratory/Chest: Mechanical vent; respiratory distress, crackles/rales, rhonchi - bilaterally, expiratory wheezing Abdomen: normal bowel sounds, non tender, soft, no organomegaly, no mass Skin: normal pigmentation, warm/dry Assessment/Plan Problem List: (1) HTN (hypertension) Assessment & Plan: Currently hypotensive. (2) Arthritis, rheumatoid (3) Parkinsons disease (4) Aplastic anemia (5) GERD (gastroesophageal reflux disease) (6) Respiratory failure Assessment & Plan: Cont vent per pulmonary (7) Pneumonia (8) Dyspnea (9) Sepsis Assessment & Plan: Blood culture neg. Continue vanco and levaquin per ID (10) ARDS (adult respiratory distress syndrome) Assessment & Plan: See pulmonary note (11) UTI (urinary tract infection) Assessment & Plan: E.Coli. Continue levaquin (12) Anemia Assessment & Plan: S/P Transfusion 2 units PRBC Status: not improved SINA BOWENS Sep 21, 2017 17:23
[2017-09-21] MEDS: Miralax 17gm pkt ORAL SCH (20:44)
[2017-09-22] VITALS (24 sets, daily range): BP systolic 100–129; BP diastolic 2–59
[2017-09-22] MEDS: NovoLOG Insulin Flexpen SUBQ SCH ×4 (00:11→18:10)
[2017-09-22 06:06] LABS: HEMATOCRIT 24.4 % (37.0-47.0); HEMOGLOBIN 7.7 G/DL (12.0-16.0); MEAN CORPUSCULAR VOLUME 102 FL (80-99); RED BLOOD COUNT 2.38 M/UL (4.20-5.40); RED CELL DISTRIBUTION WIDTH 20.1 % (11.6-14.8)
[2017-09-22 06:27] LABS: PLATELET COUNT 9 K/UL (150-450); WHITE BLOOD COUNT 24.1 K/UL (4.8-10.8)
[2017-09-22] MEDS: dilTIAZem HCl 30mg tab NG SCH ×3 (06:29→21:56)
[2017-09-22 06:35] LABS: ALANINE AMINOTRANSFERASE 41 U/L (12-78); ALBUMIN 1.4 G/DL (3.4-5.0); ALBUMIN/GLOBULIN RATIO 0.3 (1.0-2.7); ALKALINE PHOSPHATASE 549 U/L (46-116); ANION GAP 10 mmol/L (5-15); ASPARTATE AMINO TRANSFERASE 70 U/L (15-37); BILIRUBIN,TOTAL 0.9 MG/DL (0.2-1.0); BLOOD UREA NITROGEN 58 mg/dL (7-18); CARBON DIOXIDE 26 MMOL/L (21-32); CHLORIDE 121 MMOL/L (98-107); CREATININE 1.1 MG/DL (0.55-1.30); PHOSPHORUS 5.1 MG/DL (2.5-4.9); POTASSIUM 3.9 MMOL/L (3.5-5.1); SODIUM 157 MMOL/L (136-145)
[2017-09-22] MEDS: Pantoprazole Inj IV SCH (08:20)
[2017-09-22] MEDS: Meropenem 1 GM in NS 55 ML IVPB SCH ×2 (09:28→20:47)
--- NOTE | 2017-09-22 10:31 | Infectious Diseases Prog Note ---
Assessment/Plan Assessment/Plan ASSESSMENT: The patient is a 76-year-old female w Fever, SP Leukocytosis worsening- r/o Cdiff, new infection, JOSETTE, bacteremia Community-acquired vs healthcare-associated pneumonia (the patient has been recently hospitalized in [facility]). 09/19 xray : Unchanged diffuse interstitial and airspace edema, Probable influenza despite of negative influenza screening test. Abnormal liver function tests, rule out biliary disease Ultrasound of the abdomen : Gallbladder sludge. No definite stones. Bladder wall thickening may be edema due to whatever process is causing the bilateral pleural effusions, but acute acalculous cholecystitis is also a possibility Hep panel : neg Probable UTI UCx : E coli TCP VDRF / ARDS HTN GERD History of auditory hallucination. Depression. Anemia. Rheumatoid arthritis. History of gastritis. PLAN: Cont Merrem d# 4 / 7 ( empirically ) and add PO Vancomcyin empiric pending Cdiff. 09/21 SP tamiflu #10 09/19 SP vancomycin and Levaquin d# 18 Repeat cultures and U./a Monitor CBC.; Trend WBC Monitor BMP.; Trend LFTs Monitor chest x-ray f/u HIDA Subjective Allergies: Coded Allergies: No Known Allergies (Verified , 11/18/08) Subjective afebrile in 24hrs leukocytosis increased Cdiff pending Objective Vital Signs Last 24 Hour Vital Signs Date Time Temp Pulse Resp B/P (MAP) Pulse Ox O2 Delivery O2 Flow Rate FiO2 09/22/17 10:00 108 31 109/35 99 Mechanical Ventilator 80 09/22/17 09:00 108 30 112/39 97 Mechanical Ventilator 80 09/22/17 08:59 111 25 80 09/22/17 08:00 90 09/22/17 08:00 110 09/22/17 08:00 98.7 113 26 124/45 94 Mechanical Ventilator 90 98.7 09/22/17 07:22 90 09/22/17 07:00 111 26 118/40 93 Mechanical Ventilator 80 09/22/17 06:42 116 27 80 09/22/17 06:29 110 108/41 09/22/17 06:00 116 26 129/51 97 Mechanical Ventilator 80 09/22/17 05:24 101 32 80 09/22/17 05:00 105 26 115/52 95 Mechanical Ventilator 80 09/22/17 04:00 111 09/22/17 04:00 80 09/22/17 04:00 97.8 110 26 127/54 98 Mechanical Ventilator 80 97.8 09/22/17 03:00 112 20 109/42 98 Mechanical Ventilator 80 09/22/17 03:00 124 32 80 09/22/17 02:00 112 20 109/42 98 Mechanical Ventilator 80 09/22/17 01:21 123 36 80 09/22/17 01:00 107 20 124/44 97 Mechanical Ventilator 80 09/22/17 00:00 97.0 102 23 113/38 96 Mechanical Ventilator 80 97.0 09/22/17 00:00 80 09/22/17 00:00 106 09/21/17 23:11 118 32 80 09/21/17 23:00 80 09/21/17 23:00 104 20 126/50 98 Mechanical Ventilator 80 09/21/17 22:00 110 18 109/38 92 Mechanical Ventilator 60 09/21/17 21:34 110 113/40 09/21/17 21:00 111 17 115/44 92 Mechanical Ventilator 60 09/21/17 20:45 111 28 60 09/21/17 20:00 114 09/21/17 20:00 98.6 115 14 116/42 90 Mechanical Ventilator 60 98.6 09/21/17 20:00 60 09/21/17 19:07 114 26 60 09/21/17 19:00 98.7 106 31 111/40 90 Mechanical Ventilator 60 98.7 09/21/17 18:00 98.0 108 29 113/41 91 Mechanical Ventilator 60 98.0 09/21/17 17:00 98.6 112 30 113/40 91 Mechanical Ventilator 60 98.6 09/21/17 17:00 110 25 60 09/21/17 16:00 112 09/21/17 16:00 99.0 110 35 110/40 91 Mechanical Ventilator 60 99.0 09/21/17 16:00 60 09/21/17 15:31 113 32 60 09/21/17 15:11 121 112/50 09/21/17 15:00 99.4 119 34 112/50 95 Mechanical Ventilator 60 99.4 09/21/17 14:00 117 26 112/45 95 Mechanical Ventilator 70 09/21/17 13:00 97.8 110 27 110/44 99 Mechanical Ventilator 60 97.8 09/21/17 12:47 112 29 60 09/21/17 12:00 60 09/21/17 12:00 97.8 105 27 119/51 99 Mechanical Ventilator 60 97.8 09/21/17 12:00 105 09/21/17 11:18 102 29 60 09/21/17 11:00 60 09/21/17 11:00 104 27 118/46 99 Mechanical Ventilator 70 Height (Feet): 5 Height (Inches): 0.00 Weight (Pounds): 105 Objective General Appearance: lethargic, thin EENT: normal ENT inspection Neck: non-tender, normal alignment, supple Cardiovascular: normal peripheral pulses, normal rate, regular rhythm, no gallop/murmur, no JVD Respiratory/Chest: Mechanical vent; respiratory distress, crackles/rales, rhonchi - bilaterally, expiratory wheezing Abdomen: normal bowel sounds, non tender, soft, no organomegaly, no mass Skin: normal pigmentation, warm/dry Laboratory Tests Test 09/22/17 04:00 09/22/17 04:30 Arterial Blood pH 7.370 (7.350-7.450) Arterial Blood Partial Pressure CO2 44.1 mmHg (35.0-45.0) Arterial Blood Partial Pressure O2 69.1 mmHg (75.0-100.0) L Arterial Blood HCO3 25.3 mmol/L (22.0-26.0) Arterial Blood Oxygen Saturation 91.2 % (92.0-98.0) L Arterial Blood Base Excess 0.1 Luis A Test Positive White Blood Count 24.1 K/UL (4.8-10.8) *H Red Blood Count 2.38 M/UL (4.20-5.40) L Hemoglobin 7.7 G/DL (12.0-16.0) L Hematocrit 24.4 % (37.0-47.0) L Mean Corpuscular Volume 102 FL (80-99) H Mean Corpuscular Hemoglobin 32.4 PG (27.0-31.0) H Mean Corpuscular Hemoglobin Concent 31.7 G/DL (32.0-36.0) L Red Cell Distribution Width 20.1 % (11.6-14.8) H Platelet Count 9 K/UL (150-450) *L Mean Platelet Volume 11.8 FL (6.5-10.1) H Neutrophils (%) (Auto) % (45.0-75.0) Lymphocytes (%) (Auto) % (20.0-45.0) Monocytes (%) (Auto) % (1.0-10.0) Eosinophils (%) (Auto) % (0.0-3.0) Basophils (%) (Auto) % (0.0-2.0) Differential Total Cells Counted 100 Neutrophils % (Manual) 76 % (45-75) H Lymphocytes % (Manual) 11 % (20-45) L Monocytes % (Manual) 9 % (1-10) Eosinophils % (Manual) 0 % (0-3) Basophils % (Manual) 0 % (0-2) Band Neutrophils 4 % (0-8) Nucleated Red Blood Cells 9 /100 WBC Platelet Estimate Decreased L Platelet Morphology Normal Polychromasia 2+ Hypochromasia 1+ Anisocytosis 1+ Sodium Level 157 MMOL/L (136-145) H Potassium Level 3.9 MMOL/L (3.5-5.1) Chloride Level 121 MMOL/L (98-107) H Carbon Dioxide Level 26 MMOL/L (21-32) Anion Gap 10 mmol/L (5-15) Blood Urea Nitrogen 58 mg/dL (7-18) H Creatinine 1.1 MG/DL (0.55-1.30) Estimat Glomerular Filtration Rate mL/min (>60) Glucose Level 128 MG/DL (74-106) H Calcium Level 9.0 MG/DL (8.5-10.1) Phosphorus Level 5.1 MG/DL (2.5-4.9) H Magnesium Level 2.2 MG/DL (1.8-2.4) Total Bilirubin 0.9 MG/DL (0.2-1.0) Aspartate Amino Transf (AST/SGOT) 70 U/L (15-37) H Alanine Aminotransferase (ALT/SGPT) 41 U/L (12-78) Alkaline Phosphatase 549 U/L (46-116) H Total Protein 5.5 G/DL (6.4-8.2) L Albumin 1.4 G/DL (3.4-5.0) L Globulin 4.1 g/dL Albumin/Globulin Ratio 0.3 (1.0-2.7) L Current Medications Medications (Trade) Dose Ordered Sig/Hermes Route PRN Reason Start Time Stop Time Status Last Admin Dose Admin Acetaminophen (Tylenol) 650 mg EVERY 6 HOURS PRN NG Fever/Headache/Mild Pain 09/13/17 20:45 10/13/17 20:44 09/21/17 06:04 Clonidine HCl (Catapres Tab) 0.1 mg Q4H PRN ORAL SBP>160 UNRELIEVED BY HYDRALAZ 09/16/17 16:45 10/15/17 16:59 Dextrose (Dextrose 50%) STAT PRN IV Hypoglycemia 09/13/17 15:00 10/13/17 14:59 Diltiazem HCl (Cardizem) 30 mg EVERY 8 HOURS NG 09/18/17 22:00 10/18/17 21:59 09/22/17 06:29 Insulin Aspart (NovoLOG) EVERY 6 HOURS SUBQ 09/17/17 12:00 10/17/17 11:59 09/22/17 06:32 Meropenem 1 gm/ Sodium Chloride 55 ml @ 110 mls/hr Q12HR IVPB 09/19/17 21:00 09/24/17 20:59 09/22/17 09:28 Pantoprazole (Protonix) 40 mg DAILY IV 09/13/17 09:00 10/13/17 08:59 09/22/17 08:20 Polyethylene Glycol (Miralax) 17 gm BEDTIME ORAL 09/14/17 21:00 10/14/17 20:59 09/18/17 20:42 Madelyn Frey M.D. Sep 22, 2017 10:31
--- NOTE | 2017-09-22 10:39 | General Progress Note ---
Assessment/Plan Assessment/Plan 1. Thrombocytopenia, severe and progressive, acute onset, likely secondary to underlying infection, aspiration pneumonia versus HIT. --> Antibody test is pending. Heparin has been discontinued on 09/18/2017. --> Duplex of the lower extremities is negative, therefore less likely HIT and other causes are more likely such as underlying infection. 2. Anemia due to underlying chronic disease. Continue to closely monitor. --> Hemoglobin goal is above 7. --> Hgb level downtrended from yesterday, will need blood if levels continue to drop. --> Anemia workup has been reviewed at this point. --> Transfuse if hemoglobin less than 7. 3. Community-acquired pneumonia versus hospital-acquired. --> The patient on broad-spectrum antibiotics. --> Urine culture growing E. coli. Continue to closely monitor. 4. Transaminitis. She has been seen by GI Service. Continue to closely monitor. 5. Low-grade fever. Closely observe. 6. Leukocytosis likely related to underlying pneumonia infection. --> On abx. --> Wbc count worsened. Subjective Date patient seen: Sep 21, 2017 Constitutional: Denies: no symptoms, chills, diaphoresis, fever, malaise, weakness, other HEENT: Denies: no symptoms, eye pain, blurred vision, tearing, double vision, ear pain, ear discharge, nose pain, nose congestion, throat pain, throat swelling, mouth pain, mouth swelling, other Cardiovascular: Denies: no symptoms, chest pain, edema, irregular heart rate, lightheadedness, palpitations, syncope, other Respiratory: Denies: no symptoms, cough, orthopnea, shortness of breath, SOB with excertion, SOB at rest, sputum, stridor, wheezing, other Gastrointestinal/Abdominal: Denies: no symptoms, abdomen distended, abdominal pain, black stools, tarry stools, blood in stool, constipated, diarrhea, difficulty swallowing, nausea, poor appetite, poor fluid intake, rectal bleeding , vomiting, other Genitourinary: Denies: no symptoms, burning, discharge, frequency, flank pain, hematuria, incontinence, pain, urgency, other 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: Denies: no symptoms, anxiety, depressed, emotional problems, headache, numbness, paresthesia, pre-existing deficit, seizure, tingling, tremors, weakness, other Hematologic/Lymphatic: Reports: anemia Allergies: Coded Allergies: No Known Allergies (Verified , 11/18/08) Subjective Leukocytosis and hemoglobin levels worsened. Nonresponsive. Objective Last 24 Hour Vital Signs Date Time Temp Pulse Resp B/P (MAP) Pulse Ox O2 Delivery O2 Flow Rate FiO2 09/22/17 10:00 108 31 109/35 99 Mechanical Ventilator 80 09/22/17 09:00 108 30 112/39 97 Mechanical Ventilator 80 09/22/17 08:59 111 25 80 09/22/17 08:00 90 09/22/17 08:00 110 09/22/17 08:00 98.7 113 26 124/45 94 Mechanical Ventilator 90 98.7 09/22/17 07:22 90 09/22/17 07:00 111 26 118/40 93 Mechanical Ventilator 80 09/22/17 06:42 116 27 80 09/22/17 06:29 110 108/41 09/22/17 06:00 116 26 129/51 97 Mechanical Ventilator 80 09/22/17 05:24 101 32 80 09/22/17 05:00 105 26 115/52 95 Mechanical Ventilator 80 09/22/17 04:00 111 09/22/17 04:00 80 09/22/17 04:00 97.8 110 26 127/54 98 Mechanical Ventilator 80 97.8 09/22/17 03:00 112 20 109/42 98 Mechanical Ventilator 80 09/22/17 03:00 124 32 80 09/22/17 02:00 112 20 109/42 98 Mechanical Ventilator 80 09/22/17 01:21 123 36 80 09/22/17 01:00 107 20 124/44 97 Mechanical Ventilator 80 09/22/17 00:00 97.0 102 23 113/38 96 Mechanical Ventilator 80 97.0 09/22/17 00:00 80 09/22/17 00:00 106 09/21/17 23:11 118 32 80 09/21/17 23:00 80 09/21/17 23:00 104 20 126/50 98 Mechanical Ventilator 80 09/21/17 22:00 110 18 109/38 92 Mechanical Ventilator 60 09/21/17 21:34 110 113/40 09/21/17 21:00 111 17 115/44 92 Mechanical Ventilator 60 09/21/17 20:45 111 28 60 3/11/18 20:00 114 09/21/17 20:00 98.6 115 14 116/42 90 Mechanical Ventilator 60 98.6 09/21/17 20:00 60 09/21/17 19:07 114 26 60 09/21/17 19:00 98.7 106 31 111/40 90 Mechanical Ventilator 60 98.7 09/21/17 18:00 98.0 108 29 113/41 91 Mechanical Ventilator 60 98.0 09/21/17 17:00 98.6 112 30 113/40 91 Mechanical Ventilator 60 98.6 09/21/17 17:00 110 25 60 09/21/17 16:00 112 09/21/17 16:00 99.0 110 35 110/40 91 Mechanical Ventilator 60 99.0 09/21/17 16:00 60 09/21/17 15:31 113 32 60 09/21/17 15:11 121 112/50 09/21/17 15:00 99.4 119 34 112/50 95 Mechanical Ventilator 60 99.4 09/21/17 14:00 117 26 112/45 95 Mechanical Ventilator 70 09/21/17 13:00 97.8 110 27 110/44 99 Mechanical Ventilator 60 97.8 09/21/17 12:47 112 29 60 09/21/17 12:00 60 09/21/17 12:00 97.8 105 27 119/51 99 Mechanical Ventilator 60 97.8 09/21/17 12:00 105 09/21/17 11:18 102 29 60 09/21/17 11:00 60 09/21/17 11:00 104 27 118/46 99 Mechanical Ventilator 70 Intake and Output 09/21/17 09/22/17 19:00 07:00 Intake Total 2095 ml 745 ml Output Total 1160 ml 700 ml Balance 935 ml 45 ml Intake Free Water 1200 ml 100 ml IV Total 55 ml 55 ml Tube Feeding 540 ml 540 ml Other 300 ml 50 ml Output Urine Total 1160 ml 700 ml # Bowel Movements 1 Laboratory Tests 09/22/17 04:00: Arterial Blood pH 7.370, Arterial Blood Partial Pressure CO2 44.1, Arterial Blood Partial Pressure O2 69.1L, Arterial Blood HCO3 25.3, Arterial Blood Oxygen Saturation 91.2L, Arterial Blood Base Excess 0.1, Luis A Test Positive 09/22/17 04:30: White Blood Count 24.1*H, Red Blood Count 2.38L, Hemoglobin 7.7L, Hematocrit 24.4L, Mean Corpuscular Volume 102H, Mean Corpuscular Hemoglobin 32.4H, Mean Corpuscular Hemoglobin Concent 31.7L, Red Cell Distribution Width 20.1H, Platelet Count 9*L, Mean Platelet Volume 11.8H, Neutrophils (%) (Auto) , Lymphocytes (%) (Auto) , Monocytes (%) (Auto) , Eosinophils (%) (Auto) , Basophils (%) (Auto) , Differential Total Cells Counted 100, Neutrophils % ( Manual) 76H, Lymphocytes % (Manual) 11L, Monocytes % (Manual) 9, Eosinophils % ( Manual) 0, Basophils % (Manual) 0, Band Neutrophils 4, Nucleated Red Blood Cells 9, Platelet Estimate DecreasedL, Platelet Morphology Normal, Polychromasia 2+, Hypochromasia 1+, Anisocytosis 1+, Sodium Level 157H, Potassium Level 3.9, Chloride Level 121H, Carbon Dioxide Level 26, Anion Gap 10 , Blood Urea Nitrogen 58H, Creatinine 1.1, Estimat Glomerular Filtration Rate , Glucose Level 128H, Calcium Level 9.0, Phosphorus Level 5.1H, Magnesium Level 2.2, Total Bilirubin 0.9, Aspartate Amino Transf (AST/SGOT) 70H, Alanine Aminotransferase (ALT/SGPT) 41, Alkaline Phosphatase 549H, Total Protein 5.5L, Albumin 1.4L, Globulin 4.1, Albumin/Globulin Ratio 0.3L Height (Feet): 5 Height (Inches): 0.00 Weight (Pounds): 105 General Appearance: confused Respiratory/Chest: decreased breath sounds Johnny Sinha Sep 22, 2017 10:39
[2017-09-22 11:09] LABS: APPEARANCE,URINE CLEAR; BILIRUBIN, URINE NEGATIVE (NEGATIVE); GLUCOSE, URINE (UA) NEGATIVE (NEGATIVE); KETONES,URINE NEGATIVE (NEGATIVE); LEUKOCYTE ESTERASE ,URINE 2+ (NEGATIVE); NITRITE,URINE NEGATIVE (NEGATIVE); PH,URINE 5 (4.5-8.0); PROTEIN,URINE 1+ (NEGATIVE); UROBILINOGEN,URINE NORMAL MG/DL (0.0-1.0)
[2017-09-22] MEDS: Vancomycin oral 125mg/2.5ml ORAL SCH ×3 (11:22→20:47)
[2017-09-22 11:29] LABS: COLOR,URINE YELLOW
--- NOTE | 2017-09-22 11:47 | Diagnostic Imaging Report ---
Indication: Dyspnea Technique: One view of the chest Comparison: 09/21/2017 Findings: Stable satisfactory positions of endotracheal and nasogastric tubes. Diffuse interstitial and airspace disease bilaterally is unchanged. There are likely bilateral pleural effusions, probably not significantly changed Impression: Unchanged, over one day, findings as above.
--- NOTE | 2017-09-22 11:48 | Pulmonolgy Critical Care Note ---
Critical Care - Asmt/Plan Problems: (1) ARDS (adult respiratory distress syndrome) (2) Aspiration pneumonia (3) Protein-calorie malnutrition, severe (4) Diabetes mellitus (5) Anemia Assessment/Plan: improving overall Respiratory: monitor respiratory rate, adjust FIO2, CXR Cardiac: continue to monitor HR/BP Renal: F/U I&O, keep IV fluid, check electrolytes Infectious Disease: check cultures, continue antibiotics Gastrointestinal: continue feedings/current rate Endocrine: monitor blood sugar, check HgA1C, continue sliding scale insulin Hematologic: transfuse if hgb<8.5 Neurologic: PRN Ativan, PRN Morphine, keep patient comfortable Disposition: keep in ICU Notes Reviewed: annual giving officer, cardio Discussed with: nurses, consultants, case management rnfood and beverage outlets manager - Objective Last 24 Hour Vital Signs Date Time Temp Pulse Resp B/P (MAP) Pulse Ox O2 Delivery O2 Flow Rate FiO2 09/22/17 11:00 114 31 109/46 95 Mechanical Ventilator 80 09/22/17 10:55 107 31 70 09/22/17 10:00 108 31 109/35 99 Mechanical Ventilator 80 09/22/17 09:00 108 30 112/39 97 Mechanical Ventilator 80 09/22/17 08:59 111 25 80 09/22/17 08:00 90 09/22/17 08:00 110 09/22/17 08:00 98.7 113 26 124/45 94 Mechanical Ventilator 90 98.7 09/22/17 07:22 90 09/22/17 07:00 111 26 118/40 93 Mechanical Ventilator 80 09/22/17 06:42 116 27 80 09/22/17 06:29 110 108/41 09/22/17 06:00 116 26 129/51 97 Mechanical Ventilator 80 09/22/17 05:24 101 32 80 09/22/17 05:00 105 26 115/52 95 Mechanical Ventilator 80 09/22/17 04:00 111 09/22/17 04:00 80 09/22/17 04:00 97.8 110 26 127/54 98 Mechanical Ventilator 80 97.8 09/22/17 03:00 112 20 109/42 98 Mechanical Ventilator 80 09/22/17 03:00 124 32 80 09/22/17 02:00 112 20 109/42 98 Mechanical Ventilator 80 09/22/17 01:21 123 36 80 09/22/17 01:00 107 20 124/44 97 Mechanical Ventilator 80 09/22/17 00:00 97.0 102 23 113/38 96 Mechanical Ventilator 80 97.0 09/22/17 00:00 80 09/22/17 00:00 106 09/21/17 23:11 118 32 80 09/21/17 23:00 80 09/21/17 23:00 104 20 126/50 98 Mechanical Ventilator 80 09/21/17 22:00 110 18 109/38 92 Mechanical Ventilator 60 09/21/17 21:34 110 113/40 09/21/17 21:00 111 17 115/44 92 Mechanical Ventilator 60 09/21/17 20:45 111 28 60 09/21/17 20:00 114 09/21/17 20:00 98.6 115 14 116/42 90 Mechanical Ventilator 60 98.6 09/21/17 20:00 60 09/21/17 19:07 114 26 60 09/21/17 19:00 98.7 106 31 111/40 90 Mechanical Ventilator 60 98.7 09/21/17 18:00 98.0 108 29 113/41 91 Mechanical Ventilator 60 98.0 09/21/17 17:00 98.6 112 30 113/40 91 Mechanical Ventilator 60 98.6 09/21/17 17:00 110 25 60 09/21/17 16:00 112 09/21/17 16:00 99.0 110 35 110/40 91 Mechanical Ventilator 60 99.0 09/21/17 16:00 60 09/21/17 15:31 113 32 60 09/21/17 15:11 121 112/50 09/21/17 15:00 99.4 119 34 112/50 95 Mechanical Ventilator 60 99.4 09/21/17 14:00 117 26 112/45 95 Mechanical Ventilator 70 09/21/17 13:00 97.8 110 27 110/44 99 Mechanical Ventilator 60 97.8 09/21/17 12:47 112 29 60 09/21/17 12:00 60 09/21/17 12:00 97.8 105 27 119/51 99 Mechanical Ventilator 60 97.8 09/21/17 12:00 105 Status: awake Condition: critical HEENT: atraumatic Neck: full ROM Lungs: rales, rhonchi Heart: HR/BP stable, regular Abdomen: soft, non-tender Extremities: no C/C/E, edema Decubiti: stage Accucheck: 217 Critical Care - Subjective ROS Limited/Unobtainable: No Condition: critical EKG Rhythm: Sinus Rhythm FI02: 80 Vent Support Breath Rate: 18 Vent Support Mode: AC Vent Tidal Volume: 500 Sputum Amount: Small PEEP: 7.0 PIP: 39 Tube Feeding Amount: 45 I&O: Intake and Output 09/21/17 09/22/17 19:00 07:00 Intake Total 2095 ml 745 ml Output Total 1160 ml 700 ml Balance 935 ml 45 ml Intake Free Water 1200 ml 100 ml IV Total 55 ml 55 ml Tube Feeding 540 ml 540 ml Other 300 ml 50 ml Output Urine Total 1160 ml 700 ml # Bowel Movements 1 CXR: slightly improving ET-Tube: 7.5 ET Position: 21 Labs: Laboratory Tests Test 09/22/17 04:00 09/22/17 04:30 09/22/17 10:30 Arterial Blood pH 7.370 (7.350-7.450) Arterial Blood Partial Pressure CO2 44.1 mmHg (35.0-45.0) Arterial Blood Partial Pressure O2 69.1 mmHg (75.0-100.0) L Arterial Blood HCO3 25.3 mmol/L (22.0-26.0) Arterial Blood Oxygen Saturation 91.2 % (92.0-98.0) L Arterial Blood Base Excess 0.1 Luis A Test Positive White Blood Count 24.1 K/UL (4.8-10.8) *H Red Blood Count 2.38 M/UL (4.20-5.40) L Hemoglobin 7.7 G/DL (12.0-16.0) L Hematocrit 24.4 % (37.0-47.0) L Mean Corpuscular Volume 102 FL (80-99) H Mean Corpuscular Hemoglobin 32.4 PG (27.0-31.0) H Mean Corpuscular Hemoglobin Concent 31.7 G/DL (32.0-36.0) L Red Cell Distribution Width 20.1 % (11.6-14.8) H Platelet Count 9 K/UL (150-450) *L Mean Platelet Volume 11.8 FL (6.5-10.1) H Neutrophils (%) (Auto) % (45.0-75.0) Lymphocytes (%) (Auto) % (20.0-45.0) Monocytes (%) (Auto) % (1.0-10.0) Eosinophils (%) (Auto) % (0.0-3.0) Basophils (%) (Auto) % (0.0-2.0) Differential Total Cells Counted 100 Neutrophils % (Manual) 76 % (45-75) H Lymphocytes % (Manual) 11 % (20-45) L Monocytes % (Manual) 9 % (1-10) Eosinophils % (Manual) 0 % (0-3) Basophils % (Manual) 0 % (0-2) Band Neutrophils 4 % (0-8) Nucleated Red Blood Cells 9 /100 WBC Platelet Estimate Decreased L Platelet Morphology Normal Polychromasia 2+ Hypochromasia 1+ Anisocytosis 1+ Sodium Level 157 MMOL/L (136-145) H Potassium Level 3.9 MMOL/L (3.5-5.1) Chloride Level 121 MMOL/L (98-107) H Carbon Dioxide Level 26 MMOL/L (21-32) Anion Gap 10 mmol/L (5-15) Blood Urea Nitrogen 58 mg/dL (7-18) H Creatinine 1.1 MG/DL (0.55-1.30) Estimat Glomerular Filtration Rate mL/min (>60) Glucose Level 128 MG/DL (74-106) H Calcium Level 9.0 MG/DL (8.5-10.1) Phosphorus Level 5.1 MG/DL (2.5-4.9) H Magnesium Level 2.2 MG/DL (1.8-2.4) Total Bilirubin 0.9 MG/DL (0.2-1.0) Aspartate Amino Transf (AST/SGOT) 70 U/L (15-37) H Alanine Aminotransferase (ALT/SGPT) 41 U/L (12-78) Alkaline Phosphatase 549 U/L (46-116) H Total Protein 5.5 G/DL (6.4-8.2) L Albumin 1.4 G/DL (3.4-5.0) L Globulin 4.1 g/dL Albumin/Globulin Ratio 0.3 (1.0-2.7) L Urine Color Yellow Urine Appearance Clear Urine pH 5 (4.5-8.0) Urine Specific [place] 1.015 (1.005-1.035) Urine Protein 1+ (NEGATIVE) H Urine Glucose (UA) Negative (NEGATIVE) Urine Ketones Negative (NEGATIVE) Urine Occult Blood 2+ (NEGATIVE) H Urine Nitrite Negative (NEGATIVE) Urine Bilirubin Negative (NEGATIVE) Urine Urobilinogen Normal MG/DL (0.0-1.0) Urine Leukocyte Esterase 2+ (NEGATIVE) H Urine RBC 2-4 /HPF (0 - 2) H Urine WBC 10-15 /HPF (0 - 2) H Urine Squamous Epithelial Cells Few /LPF (NONE/OCC) Urine Bacteria Few /HPF (NONE) ARUNA VANEGAS Sep 22, 2017 11:48
[2017-09-22 13:54] LABS: HEMATOCRIT 24.2 % (37.0-47.0); HEMOGLOBIN 7.7 G/DL (12.0-16.0); MEAN CORPUSCULAR VOLUME 103 FL (80-99); PLATELET COUNT 44 K/UL (150-450); RED BLOOD COUNT 2.35 M/UL (4.20-5.40); RED CELL DISTRIBUTION WIDTH 19.6 % (11.6-14.8)
[2017-09-22 13:55] LABS: WHITE BLOOD COUNT 26.4 K/UL (4.8-10.8)
[2017-09-22 14:16] LABS: ALANINE AMINOTRANSFERASE 40 U/L (12-78); ALBUMIN 1.6 G/DL (3.4-5.0); ALBUMIN/GLOBULIN RATIO 0.4 (1.0-2.7); ALKALINE PHOSPHATASE 490 U/L (46-116); ANION GAP 8 mmol/L (5-15); ASPARTATE AMINO TRANSFERASE 65 U/L (15-37); BLOOD UREA NITROGEN 59 mg/dL (7-18); CARBON DIOXIDE 27 MMOL/L (21-32); CHLORIDE 122 MMOL/L (98-107); POTASSIUM 4.2 MMOL/L (3.5-5.1); SODIUM 157 MMOL/L (136-145)
--- NOTE | 2017-09-22 15:13 | Cardiac Electrophysiology PN ---
Assessment/Plan Assessment/Plan 1. Respiratory failure, due to underlying ARDS , pneumonia,. Intubated on the vent. Already ruled out for myocardial infarction. Still on 70% Fio2 with PEEP of 7 2. Left bundle-branch block. No evidence of advanced heart block. 3. HTN and diastolic dysfunction.Continue Cardizem 30 q8 hr. 4. Hypernatremia and azotemia. 5. Pneumonia and sepsis on IV antibiotics by Dr. Hunter. WBC increased to 26K 6. History of psychiatric disorder. 7. Anasarca. 3rd spacing DW RN Subjective Subjective Intubated on Vent in ICU in sinus tach. Still on 70% Fio2 and PEEP of 7. Objective Last 24 Hour Vital Signs Date Time Temp Pulse Resp B/P (MAP) Pulse Ox O2 Delivery O2 Flow Rate FiO2 09/22/17 14:58 110 28 70 09/22/17 14:00 110 36 115/43 95 Mechanical Ventilator 70 09/22/17 13:25 117 116/44 09/22/17 13:00 116 30 116/44 95 Mechanical Ventilator 70 09/22/17 12:49 114 34 70 09/22/17 12:34 110 09/22/17 12:00 70 09/22/17 12:00 98.8 114 32 105/43 94 Mechanical Ventilator 70 98.8 09/22/17 12:00 115 09/22/17 11:00 114 31 109/46 95 Mechanical Ventilator 80 09/22/17 10:55 107 31 70 09/22/17 10:00 108 31 109/35 99 Mechanical Ventilator 80 09/22/17 09:00 108 30 112/39 97 Mechanical Ventilator 80 09/22/17 08:59 111 25 80 09/22/17 08:00 90 09/22/17 08:00 110 09/22/17 08:00 98.7 113 26 124/45 94 Mechanical Ventilator 90 98.7 09/22/17 07:22 90 09/22/17 07:00 111 26 118/40 93 Mechanical Ventilator 80 09/22/17 06:42 116 27 80 09/22/17 06:29 110 108/41 09/22/17 06:00 116 26 129/51 97 Mechanical Ventilator 80 09/22/17 05:24 101 32 80 09/22/17 05:00 105 26 115/52 95 Mechanical Ventilator 80 09/22/17 04:00 111 09/22/17 04:00 80 09/22/17 04:00 97.8 110 26 127/54 98 Mechanical Ventilator 80 97.8 09/22/17 03:00 112 20 109/42 98 Mechanical Ventilator 80 09/22/17 03:00 124 32 80 09/22/17 02:00 112 20 109/42 98 Mechanical Ventilator 80 09/22/17 01:21 123 36 80 09/22/17 01:00 107 20 124/44 97 Mechanical Ventilator 80 09/22/17 00:00 97.0 102 23 113/38 96 Mechanical Ventilator 80 97.0 09/22/17 00:00 80 09/22/17 00:00 106 09/21/17 23:11 118 32 80 09/21/17 23:00 80 09/21/17 23:00 104 20 126/50 98 Mechanical Ventilator 80 09/21/17 22:00 110 18 109/38 92 Mechanical Ventilator 60 09/21/17 21:34 110 113/40 09/21/17 21:00 111 17 115/44 92 Mechanical Ventilator 60 09/21/17 20:45 111 28 60 09/21/17 20:00 114 09/21/17 20:00 98.6 115 14 116/42 90 Mechanical Ventilator 60 98.6 09/21/17 20:00 60 09/21/17 19:07 114 26 60 09/21/17 19:00 98.7 106 31 111/40 90 Mechanical Ventilator 60 98.7 09/21/17 18:00 98.0 108 29 113/41 91 Mechanical Ventilator 60 98.0 09/21/17 17:00 98.6 112 30 113/40 91 Mechanical Ventilator 60 98.6 09/21/17 17:00 110 25 60 09/21/17 16:00 112 09/21/17 16:00 99.0 110 35 110/40 91 Mechanical Ventilator 60 99.0 09/21/17 16:00 60 09/21/17 15:31 113 32 60 09/21/17 15:11 121 112/50 Intake and Output 09/21/17 09/22/17 19:00 07:00 Intake Total 2095 ml 745 ml Output Total 1160 ml 700 ml Balance 935 ml 45 ml Intake Free Water 1200 ml 100 ml IV Total 55 ml 55 ml Tube Feeding 540 ml 540 ml Other 300 ml 50 ml Output Urine Total 1160 ml 700 ml # Bowel Movements 1 Laboratory Tests Test 09/22/17 04:00 09/22/17 04:30 09/22/17 10:30 09/22/17 12:45 Arterial Blood pH 7.370 (7.350-7.450) Arterial Blood Partial Pressure CO2 44.1 mmHg (35.0-45.0) Arterial Blood Partial Pressure O2 69.1 mmHg (75.0-100.0) L Arterial Blood HCO3 25.3 mmol/L (22.0-26.0) Arterial Blood Oxygen Saturation 91.2 % (92.0-98.0) L Arterial Blood Base Excess 0.1 Luis A Test Positive White Blood Count 24.1 K/UL (4.8-10.8) *H 26.4 K/UL (4.8-10.8) *H Red Blood Count 2.38 M/UL (4.20-5.40) L 2.35 M/UL (4.20-5.40) L Hemoglobin 7.7 G/DL (12.0-16.0) L 7.7 G/DL (12.0-16.0) L Hematocrit 24.4 % (37.0-47.0) L 24.2 % (37.0-47.0) L Mean Corpuscular Volume 102 FL (80-99) H 103 FL (80-99) H Mean Corpuscular Hemoglobin 32.4 PG (27.0-31.0) H 32.6 PG (27.0-31.0) H Mean Corpuscular Hemoglobin Concent 31.7 G/DL (32.0-36.0) L 31.8 G/DL (32.0-36.0) L Red Cell Distribution Width 20.1 % (11.6-14.8) H 19.6 % (11.6-14.8) H Platelet Count 9 K/UL (150-450) *L 44 K/UL (150-450) #L Mean Platelet Volume 11.8 FL (6.5-10.1) H 6.1 FL (6.5-10.1) L Neutrophils (%) (Auto) % (45.0-75.0) % (45.0-75.0) Lymphocytes (%) (Auto) % (20.0-45.0) % (20.0-45.0) Monocytes (%) (Auto) % (1.0-10.0) % (1.0-10.0) Eosinophils (%) (Auto) % (0.0-3.0) % (0.0-3.0) Basophils (%) (Auto) % (0.0-2.0) % (0.0-2.0) Differential Total Cells Counted 100 100 Neutrophils % (Manual) 76 % (45-75) H 78 % (45-75) H Lymphocytes % (Manual) 11 % (20-45) L 7 % (20-45) L Monocytes % (Manual) 9 % (1-10) 4 % (1-10) Eosinophils % (Manual) 0 % (0-3) 1 % (0-3) Basophils % (Manual) 0 % (0-2) 0 % (0-2) Band Neutrophils 4 % (0-8) 7 % (0-8) Nucleated Red Blood Cells 9 /100 WBC 9 /100 WBC Platelet Estimate Decreased L Decreased L Platelet Morphology Normal Normal Polychromasia 2+ 2+ Hypochromasia 1+ 1+ Anisocytosis 1+ 2+ Sodium Level 157 MMOL/L (136-145) H 157 MMOL/L (136-145) H Potassium Level 3.9 MMOL/L (3.5-5.1) 4.2 MMOL/L (3.5-5.1) Chloride Level 121 MMOL/L (98-107) H 122 MMOL/L (98-107) H Carbon Dioxide Level 26 MMOL/L (21-32) 27 MMOL/L (21-32) Anion Gap 10 mmol/L (5-15) 8 mmol/L (5-15) Blood Urea Nitrogen 58 mg/dL (7-18) H 59 mg/dL (7-18) H Creatinine 1.1 MG/DL (0.55-1.30) 1.0 MG/DL (0.55-1.30) Estimat Glomerular Filtration Rate mL/min (>60) mL/min (>60) Glucose Level 128 MG/DL (74-106) H 190 MG/DL (74-106) H Calcium Level 9.0 MG/DL (8.5-10.1) 9.0 MG/DL (8.5-10.1) Phosphorus Level 5.1 MG/DL (2.5-4.9) H Magnesium Level 2.2 MG/DL (1.8-2.4) Total Bilirubin 0.9 MG/DL (0.2-1.0) 1.0 MG/DL (0.2-1.0) Aspartate Amino Transf (AST/SGOT) 70 U/L (15-37) H 65 U/L (15-37) H Alanine Aminotransferase (ALT/SGPT) 41 U/L (12-78) 40 U/L (12-78) Alkaline Phosphatase 549 U/L (46-116) H 490 U/L (46-116) H Total Protein 5.5 G/DL (6.4-8.2) L 5.6 G/DL (6.4-8.2) L Albumin 1.4 G/DL (3.4-5.0) L 1.6 G/DL (3.4-5.0) L Globulin 4.1 g/dL 4.0 g/dL Albumin/Globulin Ratio 0.3 (1.0-2.7) L 0.4 (1.0-2.7) L Urine Color Yellow Urine Appearance Clear Urine pH 5 (4.5-8.0) Urine Specific [place] 1.015 (1.005-1.035) Urine Protein 1+ (NEGATIVE) H Urine Glucose (UA) Negative (NEGATIVE) Urine Ketones Negative (NEGATIVE) Urine Occult Blood 2+ (NEGATIVE) H Urine Nitrite Negative (NEGATIVE) Urine Bilirubin Negative (NEGATIVE) Urine Urobilinogen Normal MG/DL (0.0-1.0) Urine Leukocyte Esterase 2+ (NEGATIVE) H Urine RBC 2-4 /HPF (0 - 2) H Urine WBC 10-15 /HPF (0 - 2) H Urine Squamous Epithelial Cells Few /LPF (NONE/OCC) Urine Bacteria Few /HPF (NONE) Myelocytes % 3 % (0-0) H Macrocytosis 1+ C-Reactive Protein, Quantitative 30.5 mg/dL (0.00-0.90) H Objective HEAD AND NECK: Orally intubated. LUNGS: Coarse rhonchi bilaterally CARDIOVASCULAR: Tachy S1 and S2.No murmur ABDOMEN: Soft. EXTREMITIES: 1+ pitting edema. ROLF OLIVIA Sep 22, 2017 15:13
--- NOTE | 2017-09-22 16:57 | Nephrology Progress Note ---
Assessment/Plan Problem List: (1) ARDS (adult respiratory distress syndrome) (2) Electrolyte imbalance (3) Thrombocytopenia Assessment Na 155 Platelets [id number] (1) ARDS (adult respiratory distress syndrome) (2) Aspiration pneumonia (3) Protein-calorie malnutrition, severe (4) Diabetes mellitus (5) Anemia , aplastic by history (6) DM (7) UTI (8) Electrolyte imbalance (9) HTN (10) Depression (11) RA . Plan doing poorly water via NGT Adjust BP meds K and Phos supplement as needed Monitor renal parameters and urine output avoid nephrotoxics per orders discussed with RN Left ventricular ejection fraction estimated to be 55 %. Subjective ROS Limited/Unobtainable: Yes Objective Objective Last 24 Hour Vital Signs Date Time Temp Pulse Resp B/P (MAP) Pulse Ox O2 Delivery O2 Flow Rate FiO2 09/22/17 16:45 108 29 85 09/22/17 16:00 109 09/22/17 16:00 98.7 109 31 110/45 98 Mechanical Ventilator 70 98.7 09/22/17 16:00 70 09/22/17 15:00 110 27 109/42 94 Mechanical Ventilator 70 09/22/17 15:00 110 36 113/49 95 Mechanical Ventilator 70 09/22/17 14:58 110 28 70 09/22/17 14:00 110 36 115/43 95 Mechanical Ventilator 70 09/22/17 13:25 117 116/44 09/22/17 13:00 116 30 116/44 95 Mechanical Ventilator 70 09/22/17 12:49 114 34 70 09/22/17 12:34 110 09/22/17 12:00 70 09/22/17 12:00 98.8 114 32 105/43 94 Mechanical Ventilator 70 98.8 09/22/17 12:00 115 09/22/17 11:00 114 31 109/46 95 Mechanical Ventilator 80 09/22/17 10:55 107 31 70 09/22/17 10:00 108 31 109/35 99 Mechanical Ventilator 80 09/22/17 09:00 108 30 112/39 97 Mechanical Ventilator 80 09/22/17 08:59 111 25 80 09/22/17 08:00 90 09/22/17 08:00 110 09/22/17 08:00 98.7 113 26 124/45 94 Mechanical Ventilator 90 98.7 09/22/17 07:22 90 09/22/17 07:00 111 26 118/40 93 Mechanical Ventilator 80 09/22/17 06:42 116 27 80 09/22/17 06:29 110 108/41 09/22/17 06:00 116 26 129/51 97 Mechanical Ventilator 80 09/22/17 05:24 101 32 80 09/22/17 05:00 105 26 115/52 95 Mechanical Ventilator 80 09/22/17 04:00 111 09/22/17 04:00 80 09/22/17 04:00 97.8 110 26 127/54 98 Mechanical Ventilator 80 97.8 09/22/17 03:00 112 20 109/42 98 Mechanical Ventilator 80 09/22/17 03:00 124 32 80 09/22/17 02:00 112 20 109/42 98 Mechanical Ventilator 80 09/22/17 01:21 123 36 80 09/22/17 01:00 107 20 124/44 97 Mechanical Ventilator 80 09/22/17 00:00 97.0 102 23 113/38 96 Mechanical Ventilator 80 97.0 09/22/17 00:00 80 09/22/17 00:00 106 09/21/17 23:11 118 32 80 09/21/17 23:00 80 09/21/17 23:00 104 20 126/50 98 Mechanical Ventilator 80 09/21/17 22:00 110 18 109/38 92 Mechanical Ventilator 60 09/21/17 21:34 110 113/40 09/21/17 21:00 111 17 115/44 92 Mechanical Ventilator 60 09/21/17 20:45 111 28 60 09/21/17 20:00 114 09/21/17 20:00 98.6 115 14 116/42 90 Mechanical Ventilator 60 98.6 09/21/17 20:00 60 09/21/17 19:07 114 26 60 09/21/17 19:00 98.7 106 31 111/40 90 Mechanical Ventilator 60 98.7 09/21/17 18:00 98.0 108 29 113/41 91 Mechanical Ventilator 60 98.0 09/21/17 17:00 98.6 112 30 113/40 91 Mechanical Ventilator 60 98.6 09/21/17 17:00 110 25 60 Intake and Output 09/21/17 09/22/17 19:00 07:00 Intake Total 2095 ml 745 ml Output Total 1160 ml 700 ml Balance 935 ml 45 ml Intake Free Water 1200 ml 100 ml IV Total 55 ml 55 ml Tube Feeding 540 ml 540 ml Other 300 ml 50 ml Output Urine Total 1160 ml 700 ml # Bowel Movements 1 Laboratory Tests 09/22/17 04:00: Arterial Blood pH 7.370, Arterial Blood Partial Pressure CO2 44.1, Arterial Blood Partial Pressure O2 69.1L, Arterial Blood HCO3 25.3, Arterial Blood Oxygen Saturation 91.2L, Arterial Blood Base Excess 0.1, Luis A Test Positive 09/22/17 04:30: White Blood Count 24.1*H, Red Blood Count 2.38L, Hemoglobin 7.7L, Hematocrit 24.4L, Mean Corpuscular Volume 102H, Mean Corpuscular Hemoglobin 32.4H, Mean Corpuscular Hemoglobin Concent 31.7L, Red Cell Distribution Width 20.1H, Platelet Count 9*L, Mean Platelet Volume 11.8H, Neutrophils (%) (Auto) , Lymphocytes (%) (Auto) , Monocytes (%) (Auto) , Eosinophils (%) (Auto) , Basophils (%) (Auto) , Differential Total Cells Counted 100, Neutrophils % ( Manual) 76H, Lymphocytes % (Manual) 11L, Monocytes % (Manual) 9, Eosinophils % ( Manual) 0, Basophils % (Manual) 0, Band Neutrophils 4, Nucleated Red Blood Cells 9, Platelet Estimate DecreasedL, Platelet Morphology Normal, Polychromasia 2+, Hypochromasia 1+, Anisocytosis 1+, Sodium Level 157H, Potassium Level 3.9, Chloride Level 121H, Carbon Dioxide Level 26, Anion Gap 10 , Blood Urea Nitrogen 58H, Creatinine 1.1, Estimat Glomerular Filtration Rate , Glucose Level 128H, Calcium Level 9.0, Phosphorus Level 5.1H, Magnesium Level 2.2, Total Bilirubin 0.9, Aspartate Amino Transf (AST/SGOT) 70H, Alanine Aminotransferase (ALT/SGPT) 41, Alkaline Phosphatase 549H, Total Protein 5.5L, Albumin 1.4L, Globulin 4.1, Albumin/Globulin Ratio 0.3L 09/22/17 10:30: Urine Color Yellow, Urine Appearance Clear, Urine pH 5, Urine Specific [place] 1.015, Urine Protein 1+H, Urine Glucose (UA) Negative, Urine Ketones Negative, Urine Occult Blood 2+H, Urine Nitrite Negative, Urine Bilirubin Negative, Urine Urobilinogen Normal, Urine Leukocyte Esterase 2+H, Urine RBC 2-4H, Urine WBC 10- 15H, Urine Squamous Epithelial Cells Few, Urine Bacteria Few 09/22/17 12:45: White Blood Count 26.4*H, Red Blood Count 2.35L, Hemoglobin 7.7L, Hematocrit 24.2L, Mean Corpuscular Volume 103H, Mean Corpuscular Hemoglobin 32.6H, Mean Corpuscular Hemoglobin Concent 31.8L, Red Cell Distribution Width 19.6H, Platelet Count 44#L, Mean Platelet Volume 6.1L, Neutrophils (%) (Auto) , Lymphocytes (%) (Auto) , Monocytes (%) (Auto) , Eosinophils (%) (Auto) , Basophils (%) (Auto) , Differential Total Cells Counted 100, Neutrophils % ( Manual) 78H, Lymphocytes % (Manual) 7L, Monocytes % (Manual) 4, Eosinophils % ( Manual) 1, Basophils % (Manual) 0, Band Neutrophils 7, Nucleated Red Blood Cells 9, Platelet Estimate DecreasedL, Platelet Morphology Normal, Polychromasia 2+, Hypochromasia 1+, Anisocytosis 2+, Sodium Level 157H, Potassium Level 4.2, Chloride Level 122H, Carbon Dioxide Level 27, Anion Gap 8, Blood Urea Nitrogen 59H, Creatinine 1.0, Estimat Glomerular Filtration Rate , Glucose Level 190H, Calcium Level 9.0, Total Bilirubin 1.0, Aspartate Amino Transf (AST/SGOT) 65H, Alanine Aminotransferase (ALT/SGPT) 40, Alkaline Phosphatase 490H, Total Protein 5.6L, Albumin 1.6L, Globulin 4.0, Albumin/ Globulin Ratio 0.4L, Myelocytes % 3H, Macrocytosis 1+, C-Reactive Protein, Quantitative 30.5H Height (Feet): 5 Height (Inches): 0.00 Weight (Pounds): 105 General Appearance: mild distress EENT: other - intubated on Vent Cardiovascular: tachycardia Respiratory/Chest: decreased breath sounds Abdomen: distended YAEL HANSEN Sep 22, 2017 16:57
[2017-09-22] MEDS ORDERED: Morphine Sulfate 2mg/ml Inj IVP PRN (17:00)
--- NOTE | 2017-09-22 19:03 | Internal Med Progress Note ---
Subjective Date of Service: Sep 22, 2017 Physician Name Sina Bowens Attending Physician Jesus Barahona MD Current Medications Medications (Trade) Dose Ordered Sig/Hermes Route PRN Reason Start Time Stop Time Status Last Admin Dose Admin Acetaminophen (Tylenol) 650 mg EVERY 6 HOURS PRN NG Fever/Headache/Mild Pain 09/13/17 20:45 10/13/17 20:44 09/21/17 06:04 Clonidine HCl (Catapres Tab) 0.1 mg Q4H PRN ORAL SBP>160 UNRELIEVED BY HYDRALAZ 09/16/17 16:45 10/15/17 16:59 Dextrose (Dextrose 50%) STAT PRN IV Hypoglycemia 09/13/17 15:00 10/13/17 14:59 Diltiazem HCl (Cardizem) 30 mg EVERY 8 HOURS NG 09/18/17 22:00 10/18/17 21:59 09/22/17 13:25 Insulin Aspart (NovoLOG) EVERY 6 HOURS SUBQ 09/17/17 12:00 10/17/17 11:59 09/22/17 18:10 Meropenem 1 gm/ Sodium Chloride 55 ml @ 110 mls/hr Q12HR IVPB 09/19/17 21:00 09/24/17 20:59 09/22/17 09:28 Morphine Sulfate (Morphine Sulfate) 2 mg ONCE PRN IVP PRIOR TO HIDA SCAN 09/22/17 17:00 09/23/17 23:59 Pantoprazole (Protonix) 40 mg DAILY IV 09/13/17 09:00 10/13/17 08:59 09/22/17 08:20 Polyethylene Glycol (Miralax) 17 gm BEDTIME ORAL 09/14/17 21:00 10/14/17 20:59 09/18/17 20:42 Vancomycin HCl (Vancomycin) 125 mg FOUR TIMES A DAY ORAL 09/22/17 12:00 09/29/17 11:59 09/22/17 18:10 Allergies: Coded Allergies: No Known Allergies (Verified , 11/18/08) ROS Limited/Unobtainable: Yes Subjective 76 YO F admitted with Shortness of breath, now respiratory failure. Intubated and sedated. Cover for Internal Med-Dr. Barahona. ICU Objective Last Vital Signs Date Time Temp Pulse Resp B/P (MAP) Pulse Ox O2 Delivery O2 Flow Rate FiO2 09/22/17 18:00 106 31 100/59 100 Mechanical Ventilator 85 09/22/17 16:00 98.7 98.7 Laboratory Tests Test 09/22/17 04:00 09/22/17 04:30 09/22/17 10:30 09/22/17 12:45 Arterial Blood pH 7.370 (7.350-7.450) Arterial Blood Partial Pressure CO2 44.1 mmHg (35.0-45.0) Arterial Blood Partial Pressure O2 69.1 mmHg (75.0-100.0) L Arterial Blood HCO3 25.3 mmol/L (22.0-26.0) Arterial Blood Oxygen Saturation 91.2 % (92.0-98.0) L Arterial Blood Base Excess 0.1 Luis A Test Positive White Blood Count 24.1 K/UL (4.8-10.8) *H 26.4 K/UL (4.8-10.8) *H Red Blood Count 2.38 M/UL (4.20-5.40) L 2.35 M/UL (4.20-5.40) L Hemoglobin 7.7 G/DL (12.0-16.0) L 7.7 G/DL (12.0-16.0) L Hematocrit 24.4 % (37.0-47.0) L 24.2 % (37.0-47.0) L Mean Corpuscular Volume 102 FL (80-99) H 103 FL (80-99) H Mean Corpuscular Hemoglobin 32.4 PG (27.0-31.0) H 32.6 PG (27.0-31.0) H Mean Corpuscular Hemoglobin Concent 31.7 G/DL (32.0-36.0) L 31.8 G/DL (32.0-36.0) L Red Cell Distribution Width 20.1 % (11.6-14.8) H 19.6 % (11.6-14.8) H Platelet Count 9 K/UL (150-450) *L 44 K/UL (150-450) #L Mean Platelet Volume 11.8 FL (6.5-10.1) H 6.1 FL (6.5-10.1) L Neutrophils (%) (Auto) % (45.0-75.0) % (45.0-75.0) Lymphocytes (%) (Auto) % (20.0-45.0) % (20.0-45.0) Monocytes (%) (Auto) % (1.0-10.0) % (1.0-10.0) Eosinophils (%) (Auto) % (0.0-3.0) % (0.0-3.0) Basophils (%) (Auto) % (0.0-2.0) % (0.0-2.0) Differential Total Cells Counted 100 100 Neutrophils % (Manual) 76 % (45-75) H 78 % (45-75) H Lymphocytes % (Manual) 11 % (20-45) L 7 % (20-45) L Monocytes % (Manual) 9 % (1-10) 4 % (1-10) Eosinophils % (Manual) 0 % (0-3) 1 % (0-3) Basophils % (Manual) 0 % (0-2) 0 % (0-2) Band Neutrophils 4 % (0-8) 7 % (0-8) Nucleated Red Blood Cells 9 /100 WBC 9 /100 WBC Platelet Estimate Decreased L Decreased L Platelet Morphology Normal Normal Polychromasia 2+ 2+ Hypochromasia 1+ 1+ Anisocytosis 1+ 2+ Sodium Level 157 MMOL/L (136-145) H 157 MMOL/L (136-145) H Potassium Level 3.9 MMOL/L (3.5-5.1) 4.2 MMOL/L (3.5-5.1) Chloride Level 121 MMOL/L (98-107) H 122 MMOL/L (98-107) H Carbon Dioxide Level 26 MMOL/L (21-32) 27 MMOL/L (21-32) Anion Gap 10 mmol/L (5-15) 8 mmol/L (5-15) Blood Urea Nitrogen 58 mg/dL (7-18) H 59 mg/dL (7-18) H Creatinine 1.1 MG/DL (0.55-1.30) 1.0 MG/DL (0.55-1.30) Estimat Glomerular Filtration Rate mL/min (>60) mL/min (>60) Glucose Level 128 MG/DL (74-106) H 190 MG/DL (74-106) H Calcium Level 9.0 MG/DL (8.5-10.1) 9.0 MG/DL (8.5-10.1) Phosphorus Level 5.1 MG/DL (2.5-4.9) H Magnesium Level 2.2 MG/DL (1.8-2.4) Total Bilirubin 0.9 MG/DL (0.2-1.0) 1.0 MG/DL (0.2-1.0) Aspartate Amino Transf (AST/SGOT) 70 U/L (15-37) H 65 U/L (15-37) H Alanine Aminotransferase (ALT/SGPT) 41 U/L (12-78) 40 U/L (12-78) Alkaline Phosphatase 549 U/L (46-116) H 490 U/L (46-116) H Total Protein 5.5 G/DL (6.4-8.2) L 5.6 G/DL (6.4-8.2) L Albumin 1.4 G/DL (3.4-5.0) L 1.6 G/DL (3.4-5.0) L Globulin 4.1 g/dL 4.0 g/dL Albumin/Globulin Ratio 0.3 (1.0-2.7) L 0.4 (1.0-2.7) L Urine Color Yellow Urine Appearance Clear Urine pH 5 (4.5-8.0) Urine Specific [place] 1.015 (1.005-1.035) Urine Protein 1+ (NEGATIVE) H Urine Glucose (UA) Negative (NEGATIVE) Urine Ketones Negative (NEGATIVE) Urine Occult Blood 2+ (NEGATIVE) H Urine Nitrite Negative (NEGATIVE) Urine Bilirubin Negative (NEGATIVE) Urine Urobilinogen Normal MG/DL (0.0-1.0) Urine Leukocyte Esterase 2+ (NEGATIVE) H Urine RBC 2-4 /HPF (0 - 2) H Urine WBC 10-15 /HPF (0 - 2) H Urine Squamous Epithelial Cells Few /LPF (NONE/OCC) Urine Bacteria Few /HPF (NONE) Myelocytes % 3 % (0-0) H Macrocytosis 1+ C-Reactive Protein, Quantitative 30.5 mg/dL (0.00-0.90) H Intake and Output 09/21/17 09/22/17 19:00 07:00 Intake Total 2095 ml 745 ml Output Total 1160 ml 700 ml Balance 935 ml 45 ml Intake Free Water 1200 ml 100 ml IV Total 55 ml 55 ml Tube Feeding 540 ml 540 ml Other 300 ml 50 ml Output Urine Total 1160 ml 700 ml # Bowel Movements 1 Objective General Appearance: lethargic, thin EENT: normal ENT inspection Neck: non-tender, normal alignment, supple Cardiovascular: normal peripheral pulses, normal rate, regular rhythm, no gallop/murmur, no JVD Respiratory/Chest: Mechanical vent; respiratory distress, crackles/rales, rhonchi - bilaterally, expiratory wheezing Abdomen: normal bowel sounds, non tender, soft, no organomegaly, no mass Skin: normal pigmentation, warm/dry Assessment/Plan Problem List: (1) HTN (hypertension) Assessment & Plan: Currently hypotensive. (2) Arthritis, rheumatoid (3) Parkinsons disease (4) Aplastic anemia (5) GERD (gastroesophageal reflux disease) (6) Respiratory failure Assessment & Plan: Cont vent per pulmonary (7) Pneumonia (8) Dyspnea (9) Sepsis Assessment & Plan: Blood culture neg. Continue vanco and levaquin per ID (10) ARDS (adult respiratory distress syndrome) Assessment & Plan: See pulmonary note (11) UTI (urinary tract infection) Assessment & Plan: E.Coli. Continue levaquin (12) Anemia Assessment & Plan: S/P Transfusion 2 units PRBC (13) Diabetes mellitus, type II Assessment & Plan: Continue novolog sliding scale Status: not improved SINA BOWENS Sep 22, 2017 19:03
--- NOTE | 2017-09-22 19:26 | General Progress Note ---
Assessment/Plan Assessment/Plan Assessment - Resp failure / ARDS - Abnormal LFT , ? due to sepsis, ? caprice - Anemia with OB (+) stools - thrombocytopenia - Malnutrition - Diarrhea - hypernatremia Recommendations - Agree with HIDA scan - Hold feeds overnight - Elevate HOB - Vent care - Monitor H&H and WBC - PPI - check C Diff - increase free water Subjective Allergies: Coded Allergies: No Known Allergies (Verified , 11/18/08) Subjective on Vent non communicative WBC higher Stool sent for C diff by RN Objective Last 24 Hour Vital Signs Date Time Temp Pulse Resp B/P (MAP) Pulse Ox O2 Delivery O2 Flow Rate FiO2 09/22/17 19:00 105 30 112/55 100 Mechanical Ventilator 85 09/22/17 18:00 106 31 100/59 100 Mechanical Ventilator 85 09/22/17 17:00 109 30 118/42 100 Mechanical Ventilator 85 09/22/17 16:45 108 29 85 09/22/17 16:00 109 09/22/17 16:00 98.7 109 31 110/45 98 Mechanical Ventilator 70 98.7 09/22/17 16:00 70 09/22/17 15:00 110 27 109/42 94 Mechanical Ventilator 70 09/22/17 15:00 110 36 113/49 95 Mechanical Ventilator 70 09/22/17 14:58 110 28 70 09/22/17 14:00 110 36 115/43 95 Mechanical Ventilator 70 09/22/17 13:25 117 116/44 09/22/17 13:00 116 30 116/44 95 Mechanical Ventilator 70 09/22/17 12:49 114 34 70 09/22/17 12:34 110 09/22/17 12:00 70 09/22/17 12:00 98.8 114 32 105/43 94 Mechanical Ventilator 70 98.8 09/22/17 12:00 115 09/22/17 11:00 114 31 109/46 95 Mechanical Ventilator 80 09/22/17 10:55 107 31 70 09/22/17 10:00 108 31 109/35 99 Mechanical Ventilator 80 09/22/17 09:00 108 30 112/39 97 Mechanical Ventilator 80 09/22/17 08:59 111 25 80 09/22/17 08:00 90 09/22/17 08:00 110 09/22/17 08:00 98.7 113 26 124/45 94 Mechanical Ventilator 90 98.7 09/22/17 07:22 90 09/22/17 07:00 111 26 118/40 93 Mechanical Ventilator 80 09/22/17 06:42 116 27 80 09/22/17 06:29 110 108/41 09/22/17 06:00 116 26 129/51 97 Mechanical Ventilator 80 09/22/17 05:24 101 32 80 09/22/17 05:00 105 26 115/52 95 Mechanical Ventilator 80 09/22/17 04:00 111 09/22/17 04:00 80 09/22/17 04:00 97.8 110 26 127/54 98 Mechanical Ventilator 80 97.8 09/22/17 03:00 112 20 109/42 98 Mechanical Ventilator 80 09/22/17 03:00 124 32 80 09/22/17 02:00 112 20 109/42 98 Mechanical Ventilator 80 09/22/17 01:21 123 36 80 09/22/17 01:00 107 20 124/44 97 Mechanical Ventilator 80 09/22/17 00:00 97.0 102 23 113/38 96 Mechanical Ventilator 80 97.0 09/22/17 00:00 80 09/22/17 00:00 106 09/21/17 23:11 118 32 80 09/21/17 23:00 80 09/21/17 23:00 104 20 126/50 98 Mechanical Ventilator 80 09/21/17 22:00 110 18 109/38 92 Mechanical Ventilator 60 09/21/17 21:34 110 113/40 09/21/17 21:00 111 17 115/44 92 Mechanical Ventilator 60 09/21/17 20:45 111 28 60 09/21/17 20:00 114 09/21/17 20:00 98.6 115 14 116/42 90 Mechanical Ventilator 60 98.6 09/21/17 20:00 60 Intake and Output 09/21/17 09/22/17 19:00 07:00 Intake Total 2095 ml 745 ml Output Total 1160 ml 700 ml Balance 935 ml 45 ml Intake Free Water 1200 ml 100 ml IV Total 55 ml 55 ml Tube Feeding 540 ml 540 ml Other 300 ml 50 ml Output Urine Total 1160 ml 700 ml # Bowel Movements 1 Laboratory Tests 09/22/17 04:00: Arterial Blood pH 7.370, Arterial Blood Partial Pressure CO2 44.1, Arterial Blood Partial Pressure O2 69.1L, Arterial Blood HCO3 25.3, Arterial Blood Oxygen Saturation 91.2L, Arterial Blood Base Excess 0.1, Luis A Test Positive 09/22/17 04:30: White Blood Count 24.1*H, Red Blood Count 2.38L, Hemoglobin 7.7L, Hematocrit 24.4L, Mean Corpuscular Volume 102H, Mean Corpuscular Hemoglobin 32.4H, Mean Corpuscular Hemoglobin Concent 31.7L, Red Cell Distribution Width 20.1H, Platelet Count 9*L, Mean Platelet Volume 11.8H, Neutrophils (%) (Auto) , Lymphocytes (%) (Auto) , Monocytes (%) (Auto) , Eosinophils (%) (Auto) , Basophils (%) (Auto) , Differential Total Cells Counted 100, Neutrophils % ( Manual) 76H, Lymphocytes % (Manual) 11L, Monocytes % (Manual) 9, Eosinophils % ( Manual) 0, Basophils % (Manual) 0, Band Neutrophils 4, Nucleated Red Blood Cells 9, Platelet Estimate DecreasedL, Platelet Morphology Normal, Polychromasia 2+, Hypochromasia 1+, Anisocytosis 1+, Sodium Level 157H, Potassium Level 3.9, Chloride Level 121H, Carbon Dioxide Level 26, Anion Gap 10 , Blood Urea Nitrogen 58H, Creatinine 1.1, Estimat Glomerular Filtration Rate , Glucose Level 128H, Calcium Level 9.0, Phosphorus Level 5.1H, Magnesium Level 2.2, Total Bilirubin 0.9, Aspartate Amino Transf (AST/SGOT) 70H, Alanine Aminotransferase (ALT/SGPT) 41, Alkaline Phosphatase 549H, Total Protein 5.5L, Albumin 1.4L, Globulin 4.1, Albumin/Globulin Ratio 0.3L 09/22/17 10:30: Urine Color Yellow, Urine Appearance Clear, Urine pH 5, Urine Specific [place] 1.015, Urine Protein 1+H, Urine Glucose (UA) Negative, Urine Ketones Negative, Urine Occult Blood 2+H, Urine Nitrite Negative, Urine Bilirubin Negative, Urine Urobilinogen Normal, Urine Leukocyte Esterase 2+H, Urine RBC 2-4H, Urine WBC 10- 15H, Urine Squamous Epithelial Cells Few, Urine Bacteria Few 09/22/17 12:45: White Blood Count 26.4*H, Red Blood Count 2.35L, Hemoglobin 7.7L, Hematocrit 24.2L, Mean Corpuscular Volume 103H, Mean Corpuscular Hemoglobin 32.6H, Mean Corpuscular Hemoglobin Concent 31.8L, Red Cell Distribution Width 19.6H, Platelet Count 44#L, Mean Platelet Volume 6.1L, Neutrophils (%) (Auto) , Lymphocytes (%) (Auto) , Monocytes (%) (Auto) , Eosinophils (%) (Auto) , Basophils (%) (Auto) , Differential Total Cells Counted 100, Neutrophils % ( Manual) 78H, Lymphocytes % (Manual) 7L, Monocytes % (Manual) 4, Eosinophils % ( Manual) 1, Basophils % (Manual) 0, Band Neutrophils 7, Nucleated Red Blood Cells 9, Platelet Estimate DecreasedL, Platelet Morphology Normal, Polychromasia 2+, Hypochromasia 1+, Anisocytosis 2+, Sodium Level 157H, Potassium Level 4.2, Chloride Level 122H, Carbon Dioxide Level 27, Anion Gap 8, Blood Urea Nitrogen 59H, Creatinine 1.0, Estimat Glomerular Filtration Rate , Glucose Level 190H, Calcium Level 9.0, Total Bilirubin 1.0, Aspartate Amino Transf (AST/SGOT) 65H, Alanine Aminotransferase (ALT/SGPT) 40, Alkaline Phosphatase 490H, Total Protein 5.6L, Albumin 1.6L, Globulin 4.0, Albumin/ Globulin Ratio 0.4L, Myelocytes % 3H, Macrocytosis 1+, C-Reactive Protein, Quantitative 30.5H Height (Feet): 5 Height (Inches): 0.00 Weight (Pounds): 105 Objective WDWN NCAT , (+) ETT supple CTA RRR abd soft (+) trace edema non verbal ARNULFO DURON Sep 22, 2017 19:26
[2017-09-22] MEDS: D5 1/2NS w/KCL 10meq 1,000 ML IV SCH (20:46)
[2017-09-22] MEDS: Miralax 17gm pkt ORAL SCH (20:47)
--- NOTE | 2017-09-22 22:58 | General Progress Note ---
Assessment/Plan Problem List: (1) Arthritis, rheumatoid ICD Codes: M06.9 - Rheumatoid arthritis, unspecified SNOMED: 22859199 (2) Aspiration pneumonia ICD Codes: J69.0 - Pneumonitis due to inhalation of food and vomit SNOMED: 678489723 (3) Diabetes mellitus ICD Codes: E11.9 - Type 2 diabetes mellitus without complications SNOMED: 02355695 (4) ARDS (adult respiratory distress syndrome) ICD Codes: J80 - Acute respiratory distress syndrome SNOMED: 06699241 (5) Transaminitis ICD Codes: R74.0 - Nonspecific elevation of levels of transaminase and lactic acid dehydrogenase [LDH] SNOMED: 808601458, 608972375 (6) Dyspnea ICD Codes: R06.00 - Dyspnea, unspecified SNOMED: 608871132 (7) Parkinsons disease ICD Codes: G20 - Parkinson's disease SNOMED: 72931702 (8) Sepsis ICD Codes: A41.9 - Sepsis, unspecified organism SNOMED: 20551258 (9) GERD (gastroesophageal reflux disease) ICD Codes: K21.9 - Gastro-esophageal reflux disease without esophagitis SNOMED: 968467872 (10) Aplastic anemia ICD Codes: D61.9 - Aplastic anemia, unspecified SNOMED: 244283751 (11) Pneumonia ICD Codes: J18.9 - Pneumonia, unspecified organism SNOMED: 993747523 (12) HTN (hypertension) ICD Codes: I10 - Essential (primary) hypertension SNOMED: 15380759 Assessment/Plan Encephalopathy, agitation, psychotic disorder. -cont current meds -ativan prn Subjective Date patient seen: Sep 22, 2017 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: Reports: anxiety Allergies: Coded Allergies: No Known Allergies (Verified , 11/18/08) Objective Last 24 Hour Vital Signs Date Time Temp Pulse Resp B/P (MAP) Pulse Ox O2 Delivery O2 Flow Rate FiO2 09/22/17 21:56 104 113/44 09/22/17 21:28 102 30 85 09/22/17 20:00 85 09/22/17 19:22 109 32 85 09/22/17 19:00 105 30 112/55 100 Mechanical Ventilator 85 09/22/17 18:00 106 31 100/59 100 Mechanical Ventilator 85 09/22/17 17:00 109 30 118/42 100 Mechanical Ventilator 85 09/22/17 16:45 108 29 85 09/22/17 16:00 109 09/22/17 16:00 98.7 109 31 110/45 98 Mechanical Ventilator 70 98.7 09/22/17 16:00 70 09/22/17 15:00 110 27 109/42 94 Mechanical Ventilator 70 09/22/17 15:00 110 36 113/49 95 Mechanical Ventilator 70 09/22/17 14:58 110 28 70 09/22/17 14:00 110 36 115/43 95 Mechanical Ventilator 70 09/22/17 13:25 117 116/44 09/22/17 13:00 116 30 116/44 95 Mechanical Ventilator 70 09/22/17 12:49 114 34 70 09/22/17 12:34 110 09/22/17 12:00 70 09/22/17 12:00 98.8 114 32 105/43 94 Mechanical Ventilator 70 98.8 09/22/17 12:00 115 09/22/17 11:00 114 31 109/46 95 Mechanical Ventilator 80 09/22/17 10:55 107 31 70 09/22/17 10:00 108 31 109/35 99 Mechanical Ventilator 80 09/22/17 09:00 108 30 112/39 97 Mechanical Ventilator 80 09/22/17 08:59 111 25 80 09/22/17 08:00 90 09/22/17 08:00 110 09/22/17 08:00 98.7 113 26 124/45 94 Mechanical Ventilator 90 98.7 09/22/17 07:22 90 09/22/17 07:00 111 26 118/40 93 Mechanical Ventilator 80 09/22/17 06:42 116 27 80 09/22/17 06:29 110 108/41 09/22/17 06:00 116 26 129/51 97 Mechanical Ventilator 80 09/22/17 05:24 101 32 80 09/22/17 05:00 105 26 115/52 95 Mechanical Ventilator 80 09/22/17 04:00 111 09/22/17 04:00 80 09/22/17 04:00 97.8 110 26 127/54 98 Mechanical Ventilator 80 97.8 09/22/17 03:00 112 20 109/42 98 Mechanical Ventilator 80 09/22/17 03:00 124 32 80 09/22/17 02:00 112 20 109/42 98 Mechanical Ventilator 80 09/22/17 01:21 123 36 80 09/22/17 01:00 107 20 124/44 97 Mechanical Ventilator 80 09/22/17 00:00 97.0 102 23 113/38 96 Mechanical Ventilator 80 97.0 09/22/17 00:00 80 09/22/17 00:00 106 09/21/17 23:11 118 32 80 09/21/17 23:00 80 09/21/17 23:00 104 20 126/50 98 Mechanical Ventilator 80 Intake and Output 09/21/17 09/22/17 19:00 07:00 Intake Total 2095 ml 745 ml Output Total 1160 ml 700 ml Balance 935 ml 45 ml Intake Free Water 1200 ml 100 ml IV Total 55 ml 55 ml Tube Feeding 540 ml 540 ml Other 300 ml 50 ml Output Urine Total 1160 ml 700 ml # Bowel Movements 1 Laboratory Tests 09/22/17 04:00: Arterial Blood pH 7.370, Arterial Blood Partial Pressure CO2 44.1, Arterial Blood Partial Pressure O2 69.1L, Arterial Blood HCO3 25.3, Arterial Blood Oxygen Saturation 91.2L, Arterial Blood Base Excess 0.1, Luis A Test Positive 09/22/17 04:30: White Blood Count 24.1*H, Red Blood Count 2.38L, Hemoglobin 7.7L, Hematocrit 24.4L, Mean Corpuscular Volume 102H, Mean Corpuscular Hemoglobin 32.4H, Mean Corpuscular Hemoglobin Concent 31.7L, Red Cell Distribution Width 20.1H, Platelet Count 9*L, Mean Platelet Volume 11.8H, Neutrophils (%) (Auto) , Lymphocytes (%) (Auto) , Monocytes (%) (Auto) , Eosinophils (%) (Auto) , Basophils (%) (Auto) , Differential Total Cells Counted 100, Neutrophils % ( Manual) 76H, Lymphocytes % (Manual) 11L, Monocytes % (Manual) 9, Eosinophils % ( Manual) 0, Basophils % (Manual) 0, Band Neutrophils 4, Nucleated Red Blood Cells 9, Platelet Estimate DecreasedL, Platelet Morphology Normal, Polychromasia 2+, Hypochromasia 1+, Anisocytosis 1+, Sodium Level 157H, Potassium Level 3.9, Chloride Level 121H, Carbon Dioxide Level 26, Anion Gap 10 , Blood Urea Nitrogen 58H, Creatinine 1.1, Estimat Glomerular Filtration Rate , Glucose Level 128H, Calcium Level 9.0, Phosphorus Level 5.1H, Magnesium Level 2.2, Total Bilirubin 0.9, Aspartate Amino Transf (AST/SGOT) 70H, Alanine Aminotransferase (ALT/SGPT) 41, Alkaline Phosphatase 549H, Total Protein 5.5L, Albumin 1.4L, Globulin 4.1, Albumin/Globulin Ratio 0.3L 09/22/17 10:30: Urine Color Yellow, Urine Appearance Clear, Urine pH 5, Urine Specific [place] 1.015, Urine Protein 1+H, Urine Glucose (UA) Negative, Urine Ketones Negative, Urine Occult Blood 2+H, Urine Nitrite Negative, Urine Bilirubin Negative, Urine Urobilinogen Normal, Urine Leukocyte Esterase 2+H, Urine RBC 2-4H, Urine WBC 10- 15H, Urine Squamous Epithelial Cells Few, Urine Bacteria Few 09/22/17 12:45: White Blood Count 26.4*H, Red Blood Count 2.35L, Hemoglobin 7.7L, Hematocrit 24.2L, Mean Corpuscular Volume 103H, Mean Corpuscular Hemoglobin 32.6H, Mean Corpuscular Hemoglobin Concent 31.8L, Red Cell Distribution Width 19.6H, Platelet Count 44#L, Mean Platelet Volume 6.1L, Neutrophils (%) (Auto) , Lymphocytes (%) (Auto) , Monocytes (%) (Auto) , Eosinophils (%) (Auto) , Basophils (%) (Auto) , Differential Total Cells Counted 100, Neutrophils % ( Manual) 78H, Lymphocytes % (Manual) 7L, Monocytes % (Manual) 4, Eosinophils % ( Manual) 1, Basophils % (Manual) 0, Band Neutrophils 7, Nucleated Red Blood Cells 9, Platelet Estimate DecreasedL, Platelet Morphology Normal, Polychromasia 2+, Hypochromasia 1+, Anisocytosis 2+, Sodium Level 157H, Potassium Level 4.2, Chloride Level 122H, Carbon Dioxide Level 27, Anion Gap 8, Blood Urea Nitrogen 59H, Creatinine 1.0, Estimat Glomerular Filtration Rate , Glucose Level 190H, Calcium Level 9.0, Total Bilirubin 1.0, Aspartate Amino Transf (AST/SGOT) 65H, Alanine Aminotransferase (ALT/SGPT) 40, Alkaline Phosphatase 490H, Total Protein 5.6L, Albumin 1.6L, Globulin 4.0, Albumin/ Globulin Ratio 0.4L, Myelocytes % 3H, Macrocytosis 1+, C-Reactive Protein, Quantitative 30.5H Height (Feet): 5 Height (Inches): 0.00 Weight (Pounds): 105 General Appearance: WD/WN, no apparent distress, lethargic, confused, agitated Dary Nixon M.D. Sep 22, 2017 22:58
--- NOTE | 2017-09-22 22:59 | Geriatric Progress Note ---
Assessment/Plan Assessment/Plan Encephalopathy, agitation, psychotic disorder. PLAN: 1. The patient will be continued on lorazepam intravenous q.4 hours as needed for anxiety and agitation. 2. We will continue to follow and readjust the medications. Discussed with: patient, hospital staff Subjective Interval Events 09/21/17 Mood/Memory: Reports: prior hx, anxiety, depressed feelings Geriatric Geriatric Last 24 Hour Vital Signs Date Time Temp Pulse Resp B/P (MAP) Pulse Ox O2 Delivery O2 Flow Rate FiO2 09/22/17 21:56 104 113/44 09/22/17 21:28 102 30 85 09/22/17 20:00 85 09/22/17 19:22 109 32 85 09/22/17 19:00 105 30 112/55 100 Mechanical Ventilator 85 09/22/17 18:00 106 31 100/59 100 Mechanical Ventilator 85 09/22/17 17:00 109 30 118/42 100 Mechanical Ventilator 85 09/22/17 16:45 108 29 85 09/22/17 16:00 109 09/22/17 16:00 98.7 109 31 110/45 98 Mechanical Ventilator 70 98.7 09/22/17 16:00 70 09/22/17 15:00 110 27 109/42 94 Mechanical Ventilator 70 09/22/17 15:00 110 36 113/49 95 Mechanical Ventilator 70 09/22/17 14:58 110 28 70 09/22/17 14:00 110 36 115/43 95 Mechanical Ventilator 70 09/22/17 13:25 117 116/44 09/22/17 13:00 116 30 116/44 95 Mechanical Ventilator 70 09/22/17 12:49 114 34 70 09/22/17 12:34 110 09/22/17 12:00 70 09/22/17 12:00 98.8 114 32 105/43 94 Mechanical Ventilator 70 98.8 09/22/17 12:00 115 09/22/17 11:00 114 31 109/46 95 Mechanical Ventilator 80 09/22/17 10:55 107 31 70 09/22/17 10:00 108 31 109/35 99 Mechanical Ventilator 80 09/22/17 09:00 108 30 112/39 97 Mechanical Ventilator 80 09/22/17 08:59 111 25 80 09/22/17 08:00 90 09/22/17 08:00 110 09/22/17 08:00 98.7 113 26 124/45 94 Mechanical Ventilator 90 98.7 09/22/17 07:22 90 09/22/17 07:00 111 26 118/40 93 Mechanical Ventilator 80 09/22/17 06:42 116 27 80 09/22/17 06:29 110 108/41 09/22/17 06:00 116 26 129/51 97 Mechanical Ventilator 80 09/22/17 05:24 101 32 80 09/22/17 05:00 105 26 115/52 95 Mechanical Ventilator 80 09/22/17 04:00 111 09/22/17 04:00 80 09/22/17 04:00 97.8 110 26 127/54 98 Mechanical Ventilator 80 97.8 09/22/17 03:00 112 20 109/42 98 Mechanical Ventilator 80 09/22/17 03:00 124 32 80 09/22/17 02:00 112 20 109/42 98 Mechanical Ventilator 80 09/22/17 01:21 123 36 80 09/22/17 01:00 107 20 124/44 97 Mechanical Ventilator 80 09/22/17 00:00 97.0 102 23 113/38 96 Mechanical Ventilator 80 97.0 09/22/17 00:00 80 09/22/17 00:00 106 09/21/17 23:11 118 32 80 09/21/17 23:00 80 09/21/17 23:00 104 20 126/50 98 Mechanical Ventilator 80 Intake and Output 09/21/17 09/22/17 19:00 07:00 Intake Total 2095 ml 745 ml Output Total 1160 ml 700 ml Balance 935 ml 45 ml Intake Free Water 1200 ml 100 ml IV Total 55 ml 55 ml Tube Feeding 540 ml 540 ml Other 300 ml 50 ml Output Urine Total 1160 ml 700 ml # Bowel Movements 1 Laboratory Tests Test 09/22/17 04:00 09/22/17 04:30 09/22/17 10:30 09/22/17 12:45 Arterial Blood pH 7.370 (7.350-7.450) Arterial Blood Partial Pressure CO2 44.1 mmHg (35.0-45.0) Arterial Blood Partial Pressure O2 69.1 mmHg (75.0-100.0) L Arterial Blood HCO3 25.3 mmol/L (22.0-26.0) Arterial Blood Oxygen Saturation 91.2 % (92.0-98.0) L Arterial Blood Base Excess 0.1 Luis A Test Positive White Blood Count 24.1 K/UL (4.8-10.8) *H 26.4 K/UL (4.8-10.8) *H Red Blood Count 2.38 M/UL (4.20-5.40) L 2.35 M/UL (4.20-5.40) L Hemoglobin 7.7 G/DL (12.0-16.0) L 7.7 G/DL (12.0-16.0) L Hematocrit 24.4 % (37.0-47.0) L 24.2 % (37.0-47.0) L Mean Corpuscular Volume 102 FL (80-99) H 103 FL (80-99) H Mean Corpuscular Hemoglobin 32.4 PG (27.0-31.0) H 32.6 PG (27.0-31.0) H Mean Corpuscular Hemoglobin Concent 31.7 G/DL (32.0-36.0) L 31.8 G/DL (32.0-36.0) L Red Cell Distribution Width 20.1 % (11.6-14.8) H 19.6 % (11.6-14.8) H Platelet Count 9 K/UL (150-450) *L 44 K/UL (150-450) #L Mean Platelet Volume 11.8 FL (6.5-10.1) H 6.1 FL (6.5-10.1) L Neutrophils (%) (Auto) % (45.0-75.0) % (45.0-75.0) Lymphocytes (%) (Auto) % (20.0-45.0) % (20.0-45.0) Monocytes (%) (Auto) % (1.0-10.0) % (1.0-10.0) Eosinophils (%) (Auto) % (0.0-3.0) % (0.0-3.0) Basophils (%) (Auto) % (0.0-2.0) % (0.0-2.0) Differential Total Cells Counted 100 100 Neutrophils % (Manual) 76 % (45-75) H 78 % (45-75) H Lymphocytes % (Manual) 11 % (20-45) L 7 % (20-45) L Monocytes % (Manual) 9 % (1-10) 4 % (1-10) Eosinophils % (Manual) 0 % (0-3) 1 % (0-3) Basophils % (Manual) 0 % (0-2) 0 % (0-2) Band Neutrophils 4 % (0-8) 7 % (0-8) Nucleated Red Blood Cells 9 /100 WBC 9 /100 WBC Platelet Estimate Decreased L Decreased L Platelet Morphology Normal Normal Polychromasia 2+ 2+ Hypochromasia 1+ 1+ Anisocytosis 1+ 2+ Sodium Level 157 MMOL/L (136-145) H 157 MMOL/L (136-145) H Potassium Level 3.9 MMOL/L (3.5-5.1) 4.2 MMOL/L (3.5-5.1) Chloride Level 121 MMOL/L (98-107) H 122 MMOL/L (98-107) H Carbon Dioxide Level 26 MMOL/L (21-32) 27 MMOL/L (21-32) Anion Gap 10 mmol/L (5-15) 8 mmol/L (5-15) Blood Urea Nitrogen 58 mg/dL (7-18) H 59 mg/dL (7-18) H Creatinine 1.1 MG/DL (0.55-1.30) 1.0 MG/DL (0.55-1.30) Estimat Glomerular Filtration Rate mL/min (>60) mL/min (>60) Glucose Level 128 MG/DL (74-106) H 190 MG/DL (74-106) H Calcium Level 9.0 MG/DL (8.5-10.1) 9.0 MG/DL (8.5-10.1) Phosphorus Level 5.1 MG/DL (2.5-4.9) H Magnesium Level 2.2 MG/DL (1.8-2.4) Total Bilirubin 0.9 MG/DL (0.2-1.0) 1.0 MG/DL (0.2-1.0) Aspartate Amino Transf (AST/SGOT) 70 U/L (15-37) H 65 U/L (15-37) H Alanine Aminotransferase (ALT/SGPT) 41 U/L (12-78) 40 U/L (12-78) Alkaline Phosphatase 549 U/L (46-116) H 490 U/L (46-116) H Total Protein 5.5 G/DL (6.4-8.2) L 5.6 G/DL (6.4-8.2) L Albumin 1.4 G/DL (3.4-5.0) L 1.6 G/DL (3.4-5.0) L Globulin 4.1 g/dL 4.0 g/dL Albumin/Globulin Ratio 0.3 (1.0-2.7) L 0.4 (1.0-2.7) L Urine Color Yellow Urine Appearance Clear Urine pH 5 (4.5-8.0) Urine Specific [place] 1.015 (1.005-1.035) Urine Protein 1+ (NEGATIVE) H Urine Glucose (UA) Negative (NEGATIVE) Urine Ketones Negative (NEGATIVE) Urine Occult Blood 2+ (NEGATIVE) H Urine Nitrite Negative (NEGATIVE) Urine Bilirubin Negative (NEGATIVE) Urine Urobilinogen Normal MG/DL (0.0-1.0) Urine Leukocyte Esterase 2+ (NEGATIVE) H Urine RBC 2-4 /HPF (0 - 2) H Urine WBC 10-15 /HPF (0 - 2) H Urine Squamous Epithelial Cells Few /LPF (NONE/OCC) Urine Bacteria Few /HPF (NONE) Myelocytes % 3 % (0-0) H Macrocytosis 1+ C-Reactive Protein, Quantitative 30.5 mg/dL (0.00-0.90) H Current Medications Medications (Trade) Dose Ordered Sig/Hermes Route PRN Reason Start Time Stop Time Status Last Admin Dose Admin Acetaminophen (Tylenol) 650 mg EVERY 6 HOURS PRN NG Fever/Headache/Mild Pain 09/13/17 20:45 10/13/17 20:44 09/21/17 06:04 Clonidine HCl (Catapres Tab) 0.1 mg Q4H PRN ORAL SBP>160 UNRELIEVED BY HYDRALAZ 09/16/17 16:45 10/15/17 16:59 Dextrose (Dextrose 50%) STAT PRN IV Hypoglycemia 09/13/17 15:00 10/13/17 14:59 Dextrose/ Electrolytes 1,000 ml @ 125 mls/hr Q8H IV 09/22/17 20:30 10/22/17 20:29 09/22/17 20:46 Diltiazem HCl (Cardizem) 30 mg EVERY 8 HOURS NG 09/18/17 22:00 10/18/17 21:59 09/22/17 21:56 Insulin Aspart (NovoLOG) EVERY 6 HOURS SUBQ 09/17/17 12:00 10/17/17 11:59 09/22/17 18:10 Meropenem 1 gm/ Sodium Chloride 55 ml @ 110 mls/hr Q12HR IVPB 09/19/17 21:00 09/24/17 20:59 09/22/17 20:47 Morphine Sulfate (Morphine Sulfate) 2 mg ONCE PRN IVP PRIOR TO HIDA SCAN 09/22/17 17:00 09/23/17 23:59 Pantoprazole (Protonix) 40 mg DAILY IV 09/13/17 09:00 10/13/17 08:59 09/22/17 08:20 Polyethylene Glycol (Miralax) 17 gm BEDTIME ORAL 09/14/17 21:00 10/14/17 20:59 09/18/17 20:42 Vancomycin HCl (Vancomycin) 125 mg FOUR TIMES A DAY ORAL 09/22/17 12:00 09/29/17 11:59 09/22/17 20:47 Height (Feet): 5 Height (Inches): 0.00 Weight (Pounds): 105 General Appearance: no apparent distress Psychiatric Language/Speech: slow Orientation: disoriented Affect: flat Insight: Dary Hidalgo M.D. Sep 22, 2017 22:59
[2017-09-23] VITALS (24 sets, daily range): BP systolic 103–135; BP diastolic 43–100
[2017-09-23] MEDS: NovoLOG Insulin Flexpen SUBQ SCH ×4 (01:21→18:09)
[2017-09-23 04:41] LABS: HEMATOCRIT 20.9 % (37.0-47.0); MEAN CORPUSCULAR VOLUME 104 FL (80-99); PLATELET COUNT 18 K/UL (150-450); RED CELL DISTRIBUTION WIDTH 21.3 % (11.6-14.8)
[2017-09-23 04:53] LABS: HEMOGLOBIN 6.6 G/DL (12.0-16.0); WHITE BLOOD COUNT 22.5 K/UL (4.8-10.8)
[2017-09-23 04:59] LABS: ALANINE AMINOTRANSFERASE 33 U/L (12-78); ALBUMIN 1.5 G/DL (3.4-5.0); ALBUMIN/GLOBULIN RATIO 0.4 (1.0-2.7); ALKALINE PHOSPHATASE 404 U/L (46-116); ANION GAP 8 mmol/L (5-15); ASPARTATE AMINO TRANSFERASE 56 U/L (15-37); BILIRUBIN,TOTAL 0.8 MG/DL (0.2-1.0); BLOOD UREA NITROGEN 50 mg/dL (7-18); CALCIUM 8.6 MG/DL (8.5-10.1); CARBON DIOXIDE 28 MMOL/L (21-32); CHLORIDE 122 MMOL/L (98-107); POTASSIUM 3.9 MMOL/L (3.5-5.1); SODIUM 158 MMOL/L (136-145)
[2017-09-23] MEDS: D5 1/2NS w/KCL 10meq 1,000 ML IV SCH ×3 (05:55→20:42)
[2017-09-23] MEDS: dilTIAZem HCl 30mg tab NG SCH ×3 (06:25→21:45)
[2017-09-23 07:09] LABS: APTT 1:1 MIX SALINE 54.7 sec (Not Estab.); APTT 1:1 NORMAL PLASMA 26.6 sec (22.9-30.2)
--- NOTE | 2017-09-23 09:33 | General Progress Note ---
Assessment/Plan Assessment/Plan Assessment - Resp failure / ARDS - Abnormal LFT - HIDA pending - Anemia with OB (+) stools - getting transfusion - thrombocytopenia - getting transfusin - Malnutrition - TF held overnight - Diarrhea- C Diff Pending - hypernatremia - Leukocytosis / sepsis - on abx Recommendations - Await HIDA scan - will check CT abd/pelvis if HIDA neg - transfuse PRN - Elevate HOB - Vent care - Monitor H&H and WBC - PPI - f/u C Diff - IVF and follow Na Subjective Allergies: Coded Allergies: No Known Allergies (Verified , 11/18/08) Subjective on Vent d/w staffing clerk loose stools overnight Asked to re-send for C Diff HIDA scheduled for this am Objective Last 24 Hour Vital Signs Date Time Temp Pulse Resp B/P (MAP) Pulse Ox O2 Delivery O2 Flow Rate FiO2 09/23/17 09:01 85 26 85 09/23/17 07:04 87 28 85 09/23/17 07:00 90 20 114/100 100 Mechanical Ventilator 85 09/23/17 06:25 97 125/48 09/23/17 06:00 95 20 125/48 100 Mechanical Ventilator 85 09/23/17 05:18 103 36 85 09/23/17 05:00 98 25 113/48 100 Mechanical Ventilator 85 09/23/17 04:00 98 09/23/17 04:00 97.2 98 26 116/48 100 Mechanical Ventilator 85 97.2 09/23/17 04:00 85 09/23/17 03:29 99 34 85 09/23/17 03:00 98 26 111/48 100 Mechanical Ventilator 85 09/23/17 02:00 97 26 115/47 100 Mechanical Ventilator 85 09/23/17 01:23 101 34 85 09/23/17 01:00 95 27 117/44 100 Mechanical Ventilator 85 09/23/17 00:00 98 09/23/17 00:00 97.2 96 27 113/44 99 Mechanical Ventilator 85 97.2 09/23/17 00:00 85 09/22/17 23:14 97 27 85 09/22/17 23:00 96 28 110/37 100 Mechanical Ventilator 85 09/22/17 22:00 99 27 110/41 100 Mechanical Ventilator 85 09/22/17 21:56 104 113/44 09/22/17 21:28 102 30 85 09/22/17 21:00 105 27 114/42 100 Mechanical Ventilator 85 09/22/17 20:00 98.4 100 27 114/49 100 Mechanical Ventilator 85 98.4 09/22/17 20:00 85 09/22/17 20:00 106 09/22/17 19:22 109 32 85 09/22/17 19:00 105 30 112/55 100 Mechanical Ventilator 85 09/22/17 18:00 106 31 100/59 100 Mechanical Ventilator 85 09/22/17 17:00 109 30 118/42 100 Mechanical Ventilator 85 09/22/17 16:45 108 29 85 09/22/17 16:00 109 09/22/17 16:00 98.7 109 31 110/45 98 Mechanical Ventilator 70 98.7 09/22/17 16:00 70 09/22/17 15:00 110 27 109/42 94 Mechanical Ventilator 70 09/22/17 15:00 110 36 113/49 95 Mechanical Ventilator 70 09/22/17 14:58 110 28 70 09/22/17 14:00 110 36 115/43 95 Mechanical Ventilator 70 09/22/17 13:25 117 116/44 09/22/17 13:00 116 30 116/44 95 Mechanical Ventilator 70 09/22/17 12:49 114 34 70 09/22/17 12:34 110 09/22/17 12:00 70 09/22/17 12:00 98.8 114 32 105/43 94 Mechanical Ventilator 70 98.8 09/22/17 12:00 115 09/22/17 11:00 114 31 109/46 95 Mechanical Ventilator 80 09/22/17 10:55 107 31 70 09/22/17 10:00 108 31 109/35 99 Mechanical Ventilator 80 Intake and Output 09/22/17 09/23/17 19:00 07:00 Intake Total 925 ml 1270 ml Output Total 730 ml 660 ml Balance 195 ml 610 ml Intake Free Water 130 ml IV Total 55 ml 1180 ml Tube Feeding 540 ml 90 ml Blood Product 200 ml Output Urine Total 730 ml 660 ml # Bowel Movements 3 Laboratory Tests 09/22/17 10:30: Urine Color Yellow, Urine Appearance Clear, Urine pH 5, Urine Specific [place] 1.015, Urine Protein 1+H, Urine Glucose (UA) Negative, Urine Ketones Negative, Urine Occult Blood 2+H, Urine Nitrite Negative, Urine Bilirubin Negative, Urine Urobilinogen Normal, Urine Leukocyte Esterase 2+H, Urine RBC 2-4H, Urine WBC 10- 15H, Urine Squamous Epithelial Cells Few, Urine Bacteria Few 09/22/17 12:45: White Blood Count 26.4*H, Red Blood Count 2.35L, Hemoglobin 7.7L, Hematocrit 24.2L, Mean Corpuscular Volume 103H, Mean Corpuscular Hemoglobin 32.6H, Mean Corpuscular Hemoglobin Concent 31.8L, Red Cell Distribution Width 19.6H, Platelet Count 44#L, Mean Platelet Volume 6.1L, Neutrophils (%) (Auto) , Lymphocytes (%) (Auto) , Monocytes (%) (Auto) , Eosinophils (%) (Auto) , Basophils (%) (Auto) , Differential Total Cells Counted 100, Neutrophils % ( Manual) 78H, Lymphocytes % (Manual) 7L, Monocytes % (Manual) 4, Eosinophils % ( Manual) 1, Basophils % (Manual) 0, Myelocytes % 3H, Band Neutrophils 7, Nucleated Red Blood Cells 9, Platelet Estimate DecreasedL, Platelet Morphology Normal, Polychromasia 2+, Hypochromasia 1+, Anisocytosis 2+, Macrocytosis 1+, Sodium Level 157H, Potassium Level 4.2, Chloride Level 122H, Carbon Dioxide Level 27, Anion Gap 8, Blood Urea Nitrogen 59H, Creatinine 1.0, Estimat Glomerular Filtration Rate , Glucose Level 190H, Calcium Level 9.0, Total Bilirubin 1.0, Aspartate Amino Transf (AST/SGOT) 65H, Alanine Aminotransferase ( ALT/SGPT) 40, Alkaline Phosphatase 490H, C-Reactive Protein, Quantitative 30.5H , Total Protein 5.6L, Albumin 1.6L, Globulin 4.0, Albumin/Globulin Ratio 0.4L, Lipase 78 09/23/17 04:20: White Blood Count 22.5*H, Red Blood Count 2.00L, Hemoglobin 6.6*L, Hematocrit 20.9L, Mean Corpuscular Volume 104H, Mean Corpuscular Hemoglobin 33.1H, Mean Corpuscular Hemoglobin Concent 31.7L, Red Cell Distribution Width 21.3H, Platelet Count 18#L, Mean Platelet Volume 10.0, Neutrophils (%) (Auto) , Lymphocytes (%) (Auto) , Monocytes (%) (Auto) , Eosinophils (%) (Auto) , Basophils (%) (Auto) , Differential Total Cells Counted 100, Neutrophils % ( Manual) 75, Lymphocytes % (Manual) 6L, Monocytes % (Manual) 6, Eosinophils % ( Manual) 1, Basophils % (Manual) 0, Band Neutrophils 9H, Nucleated Red Blood Cells 7, Platelet Estimate DecreasedL, Platelet Morphology Normal, Polychromasia 2+, Hypochromasia 1+, Anisocytosis 2+, Macrocytosis 2+, Sodium Level 158H, Potassium Level 3.9, Chloride Level 122H, Carbon Dioxide Level 28, Anion Gap 8, Blood Urea Nitrogen 50H, Creatinine 1.0, Estimat Glomerular Filtration Rate , Glucose Level 189H, Calcium Level 8.6, Total Bilirubin 0.8, Aspartate Amino Transf (AST/SGOT) 56H, Alanine Aminotransferase (ALT/SGPT) 33, Alkaline Phosphatase 404H, Total Protein 5.5L, Albumin 1.5L, Globulin 4.0, Albumin/Globulin Ratio 0.4L, Lipase 65L, Metamyelocytes % 3H, Pro-B-Type Natriuretic Peptide 40775Q Height (Feet): 5 Height (Inches): 0.00 Weight (Pounds): 105 Objective WDWN NCAT , (+) ETT supple CTA RRR abd soft (+) edema non verbal ARNULFO DURON Sep 23, 2017 09:33
--- NOTE | 2017-09-23 10:18 | Pulmonolgy Critical Care Note ---
Critical Care - Asmt/Plan Problems: (1) ARDS (adult respiratory distress syndrome) (2) Aspiration pneumonia (3) Anemia (4) Thrombocytopenia (5) Diabetes mellitus (6) Protein-calorie malnutrition, severe Assessment/Plan: improving overall Respiratory: monitor respiratory rate, adjust FIO2, CXR, weaning trial Cardiac: continue to monitor HR/BP Renal: F/U I&O Infectious Disease: check cultures Gastrointestinal: continue feedings/current rate Endocrine: monitor blood sugar Hematologic: other - plt and prbc transfusion Neurologic: PRN Ativan, PRN Morphine Prophylaxis: Protonix Disposition: keep in ICU Time Spent (Minutes): 30 Notes Reviewed: drafter civil, cardio Critical Care - Objective Last 24 Hour Vital Signs Date Time Temp Pulse Resp B/P (MAP) Pulse Ox O2 Delivery O2 Flow Rate FiO2 09/23/17 09:01 85 26 85 09/23/17 08:00 98.2 96 22 111/52 98 Mechanical Ventilator 85 98.2 09/23/17 08:00 85 09/23/17 07:04 87 28 85 09/23/17 07:00 90 20 114/100 100 Mechanical Ventilator 85 09/23/17 06:25 97 125/48 09/23/17 06:00 95 20 125/48 100 Mechanical Ventilator 85 09/23/17 05:18 103 36 85 09/23/17 05:00 98 25 113/48 100 Mechanical Ventilator 85 09/23/17 04:00 98 09/23/17 04:00 97.2 98 26 116/48 100 Mechanical Ventilator 85 97.2 09/23/17 04:00 85 09/23/17 03:29 99 34 85 09/23/17 03:00 98 26 111/48 100 Mechanical Ventilator 85 09/23/17 02:00 97 26 115/47 100 Mechanical Ventilator 85 09/23/17 01:23 101 34 85 09/23/17 01:00 95 27 117/44 100 Mechanical Ventilator 85 09/23/17 00:00 98 09/23/17 00:00 97.2 96 27 113/44 99 Mechanical Ventilator 85 97.2 09/23/17 00:00 85 09/22/17 23:14 97 27 85 09/22/17 23:00 96 28 110/37 100 Mechanical Ventilator 85 09/22/17 22:00 99 27 110/41 100 Mechanical Ventilator 85 09/22/17 21:56 104 113/44 09/22/17 21:28 102 30 85 09/22/17 21:00 105 27 114/42 100 Mechanical Ventilator 85 09/22/17 20:00 98.4 100 27 114/49 100 Mechanical Ventilator 85 98.4 09/22/17 20:00 85 09/22/17 20:00 106 09/22/17 19:22 109 32 85 09/22/17 19:00 105 30 112/55 100 Mechanical Ventilator 85 09/22/17 18:00 106 31 100/59 100 Mechanical Ventilator 85 09/22/17 17:00 109 30 118/42 100 Mechanical Ventilator 85 09/22/17 16:45 108 29 85 09/22/17 16:00 109 09/22/17 16:00 98.7 109 31 110/45 98 Mechanical Ventilator 70 98.7 09/22/17 16:00 70 09/22/17 15:00 110 27 109/42 94 Mechanical Ventilator 70 09/22/17 15:00 110 36 113/49 95 Mechanical Ventilator 70 09/22/17 14:58 110 28 70 09/22/17 14:00 110 36 115/43 95 Mechanical Ventilator 70 09/22/17 13:25 117 116/44 09/22/17 13:00 116 30 116/44 95 Mechanical Ventilator 70 09/22/17 12:49 114 34 70 09/22/17 12:34 110 09/22/17 12:00 70 09/22/17 12:00 98.8 114 32 105/43 94 Mechanical Ventilator 70 98.8 09/22/17 12:00 115 09/22/17 11:00 114 31 109/46 95 Mechanical Ventilator 80 09/22/17 10:55 107 31 70 Status: awake Neck: full ROM Lungs: clear Heart: HR/BP stable Abdomen: soft, active bowel sounds, feeding tube Extremities: edema Decubiti: location, stage Micro: Microbiology Date/Time Source Procedure Growth Status 09/22/17 15:00 Stool Clostridium difficile Toxin Assay - Final Complete 09/22/17 10:30 Urine,Clean Catch Urine Culture - Preliminary Resulted Accucheck: 164 Critical Care - Subjective ROS Limited/Unobtainable: No ICU Day: 12 Intubation Day: 12 Condition: critical EKG Rhythm: Sinus Rhythm FI02: 85 Vent Support Breath Rate: 18 Vent Support Mode: AC Vent Tidal Volume: 500 Sputum Amount: Moderate PEEP: 7.0 PIP: 39 Tube Feeding Amount: 0 I&O: Intake and Output 09/22/17 09/23/17 19:00 07:00 Intake Total 925 ml 1270 ml Output Total 730 ml 660 ml Balance 195 ml 610 ml Intake Free Water 130 ml IV Total 55 ml 1180 ml Tube Feeding 540 ml 90 ml Blood Product 200 ml Output Urine Total 730 ml 660 ml # Bowel Movements 3 CXR: no change ET-Tube: 7.5 ET Position: 21 Labs: Laboratory Tests Test 09/22/17 10:30 09/22/17 12:45 09/23/17 04:20 Urine Color Yellow Urine Appearance Clear Urine pH 5 (4.5-8.0) Urine Specific [place] 1.015 (1.005-1.035) Urine Protein 1+ (NEGATIVE) H Urine Glucose (UA) Negative (NEGATIVE) Urine Ketones Negative (NEGATIVE) Urine Occult Blood 2+ (NEGATIVE) H Urine Nitrite Negative (NEGATIVE) Urine Bilirubin Negative (NEGATIVE) Urine Urobilinogen Normal MG/DL (0.0-1.0) Urine Leukocyte Esterase 2+ (NEGATIVE) H Urine RBC 2-4 /HPF (0 - 2) H Urine WBC 10-15 /HPF (0 - 2) H Urine Squamous Epithelial Cells Few /LPF (NONE/OCC) Urine Bacteria Few /HPF (NONE) White Blood Count 26.4 K/UL (4.8-10.8) *H 22.5 K/UL (4.8-10.8) *H Red Blood Count 2.35 M/UL (4.20-5.40) L 2.00 M/UL (4.20-5.40) L Hemoglobin 7.7 G/DL (12.0-16.0) L 6.6 G/DL (12.0-16.0) *L Hematocrit 24.2 % (37.0-47.0) L 20.9 % (37.0-47.0) L Mean Corpuscular Volume 103 FL (80-99) H 104 FL (80-99) H Mean Corpuscular Hemoglobin 32.6 PG (27.0-31.0) H 33.1 PG (27.0-31.0) H Mean Corpuscular Hemoglobin Concent 31.8 G/DL (32.0-36.0) L 31.7 G/DL (32.0-36.0) L Red Cell Distribution Width 19.6 % (11.6-14.8) H 21.3 % (11.6-14.8) H Platelet Count 44 K/UL (150-450) #L 18 K/UL (150-450) #L Mean Platelet Volume 6.1 FL (6.5-10.1) L 10.0 FL (6.5-10.1) Neutrophils (%) (Auto) % (45.0-75.0) % (45.0-75.0) Lymphocytes (%) (Auto) % (20.0-45.0) % (20.0-45.0) Monocytes (%) (Auto) % (1.0-10.0) % (1.0-10.0) Eosinophils (%) (Auto) % (0.0-3.0) % (0.0-3.0) Basophils (%) (Auto) % (0.0-2.0) % (0.0-2.0) Differential Total Cells Counted 100 100 Neutrophils % (Manual) 78 % (45-75) H 75 % (45-75) Lymphocytes % (Manual) 7 % (20-45) L 6 % (20-45) L Monocytes % (Manual) 4 % (1-10) 6 % (1-10) Eosinophils % (Manual) 1 % (0-3) 1 % (0-3) Basophils % (Manual) 0 % (0-2) 0 % (0-2) Myelocytes % 3 % (0-0) H Band Neutrophils 7 % (0-8) 9 % (0-8) H Nucleated Red Blood Cells 9 /100 WBC 7 /100 WBC Platelet Estimate Decreased L Decreased L Platelet Morphology Normal Normal Polychromasia 2+ 2+ Hypochromasia 1+ 1+ Anisocytosis 2+ 2+ Macrocytosis 1+ 2+ Sodium Level 157 MMOL/L (136-145) H 158 MMOL/L (136-145) H Potassium Level 4.2 MMOL/L (3.5-5.1) 3.9 MMOL/L (3.5-5.1) Chloride Level 122 MMOL/L (98-107) H 122 MMOL/L (98-107) H Carbon Dioxide Level 27 MMOL/L (21-32) 28 MMOL/L (21-32) Anion Gap 8 mmol/L (5-15) 8 mmol/L (5-15) Blood Urea Nitrogen 59 mg/dL (7-18) H 50 mg/dL (7-18) H Creatinine 1.0 MG/DL (0.55-1.30) 1.0 MG/DL (0.55-1.30) Estimat Glomerular Filtration Rate mL/min (>60) mL/min (>60) Glucose Level 190 MG/DL (74-106) H 189 MG/DL (74-106) H Calcium Level 9.0 MG/DL (8.5-10.1) 8.6 MG/DL (8.5-10.1) Total Bilirubin 1.0 MG/DL (0.2-1.0) 0.8 MG/DL (0.2-1.0) Aspartate Amino Transf (AST/SGOT) 65 U/L (15-37) H 56 U/L (15-37) H Alanine Aminotransferase (ALT/SGPT) 40 U/L (12-78) 33 U/L (12-78) Alkaline Phosphatase 490 U/L (46-116) H 404 U/L (46-116) H C-Reactive Protein, Quantitative 30.5 mg/dL (0.00-0.90) H Total Protein 5.6 G/DL (6.4-8.2) L 5.5 G/DL (6.4-8.2) L Albumin 1.6 G/DL (3.4-5.0) L 1.5 G/DL (3.4-5.0) L Globulin 4.0 g/dL 4.0 g/dL Albumin/Globulin Ratio 0.4 (1.0-2.7) L 0.4 (1.0-2.7) L Lipase 78 U/L (73-393) 65 U/L (73-393) L Metamyelocytes % 3 % (0-0) H Pro-B-Type Natriuretic Peptide 08052 pg/mL (0-125) H ARUNA VANEGAS Sep 23, 2017 10:18
[2017-09-23] MEDS ORDERED: Amikacin Rx to dose MISC PRN (11:45)
--- NOTE | 2017-09-23 11:47 | Diagnostic Imaging Report ---
Indications: Abnormal liver function tests, abnormal gallbladder on recent ultrasound Technique: IV administration 5.3 mCi 99 M technetium Choletec. Serial images obtained over the abdomen for 2 hrs Comparison: None Findings: Prompt tracer uptake within the liver. Extrahepatic bile ducts are seen at 13 minutes. Gallbladder visualized at 22 minutes. Prominent tracer retention in the common bile duct is noted, with duodenal activity not visualized until 120 minutes post injection. Impression: Negative for evidence of cystic duct obstruction/acute cholecystitis Common bile duct is demonstrated be patent, but emptying into the duodenum is delayed, not seen until 2 hours. Significance of this is uncertain. MRCP or CT scanning may be useful to clarify Findings discussed by phone with Dr. Encinas at the time of interpretation
--- NOTE | 2017-09-23 11:57 | Infectious Diseases Prog Note ---
Assessment/Plan Assessment/Plan ASSESSMENT: The patient is a 76-year-old female w Fever, SP Leukocytosis worsening- r/o new infection, JOSETTE, bacteremia, cholecystitis -Cdiff neg -3/ sp cx, Bcx p -u/a wbc 10-15, nit neg, leuk +2; ucx p Community-acquired vs healthcare-associated pneumonia (the patient has been recently hospitalized in [facility]). -? ARDS- r/o fungal PNA 09/19 xray : Unchanged diffuse interstitial and airspace edema, Probable influenza despite of negative influenza screening test. Abnormal liver function tests, rule out biliary disease Ultrasound of the abdomen : Gallbladder sludge. No definite stones. Bladder wall thickening may be edema due to whatever process is causing the bilateral pleural effusions, but acute acalculous cholecystitis is also a possibility Hep panel : neg Probable UTI UCx : E coli , s/p Rx TCP , worsening- probably multifactorial- suspect mainly driven by underlying infection. -R/o HIT. Abx and protonix could be also be contributors. VDRF / ARDS HTN GERD History of auditory hallucination. Depression. Anemia. Rheumatoid arthritis. History of gastritis. PLAN: -Given worsening thrombocytopenia, will switch Meropenem #5 to Amikacin for now while awaiting cx; however believed thrombocytopenia is probably multifactorial and mainly driven by underlying sepsis/infection; and add Metronidazole for anaerobic coverage -Will add empiric Fluconazole pending fungal serologies --monitor closely LFTs- if worsening, will d/c -d/c empiric PO Vancomcyin #2 / SP tamiflu #10 / SP vancomycin and Levaquin d# 18 -f/u repeat cx -f/u HIDA scan- if negative and persistent leukocytosis, will obtain CT chest/ abd/p to further evaluate given persistent leukocytosis Monitor CBC.; Trend WBC Monitor BMP.; Trend LFTs Monitor chest x-ray -Asp ag, fungitell, CrAg, Cocci ab, fungal sp cx Discussed with Dr Liu. Subjective Allergies: Coded Allergies: No Known Allergies (Verified , 11/18/08) Subjective afebrile in 48 hrs leukocytosis slightly improved worsening thrombocytopenia remains on High Fio2 Cdiff neg awaiting repeat cx Objective Vital Signs Last 24 Hour Vital Signs Date Time Temp Pulse Resp B/P (MAP) Pulse Ox O2 Delivery O2 Flow Rate FiO2 09/23/17 11:00 106 20 135/48 100 Mechanical Ventilator 85 09/23/17 10:00 90 20 116/49 100 Mechanical Ventilator 85 09/23/17 09:01 85 26 85 09/23/17 09:00 100 24 104/45 100 Mechanical Ventilator 85 09/23/17 08:00 98.2 96 22 111/52 98 Mechanical Ventilator 85 98.2 09/23/17 08:00 85 09/23/17 07:04 87 28 85 09/23/17 07:00 90 20 114/100 100 Mechanical Ventilator 85 09/23/17 06:25 97 125/48 09/23/17 06:00 95 20 125/48 100 Mechanical Ventilator 85 09/23/17 05:18 103 36 85 09/23/17 05:00 98 25 113/48 100 Mechanical Ventilator 85 09/23/17 04:00 98 09/23/17 04:00 97.2 98 26 116/48 100 Mechanical Ventilator 85 97.2 09/23/17 04:00 85 09/23/17 03:29 99 34 85 09/23/17 03:00 98 26 111/48 100 Mechanical Ventilator 85 09/23/17 02:00 97 26 115/47 100 Mechanical Ventilator 85 09/23/17 01:23 101 34 85 09/23/17 01:00 95 27 117/44 100 Mechanical Ventilator 85 09/23/17 00:00 98 09/23/17 00:00 97.2 96 27 113/44 99 Mechanical Ventilator 85 97.2 09/23/17 00:00 85 09/22/17 23:14 97 27 85 09/22/17 23:00 96 28 110/37 100 Mechanical Ventilator 85 09/22/17 22:00 99 27 110/41 100 Mechanical Ventilator 85 09/22/17 21:56 104 113/44 09/22/17 21:28 102 30 85 09/22/17 21:00 105 27 114/42 100 Mechanical Ventilator 85 09/22/17 20:00 98.4 100 27 114/49 100 Mechanical Ventilator 85 98.4 09/22/17 20:00 85 09/22/17 20:00 106 09/22/17 19:22 109 32 85 09/22/17 19:00 105 30 112/55 100 Mechanical Ventilator 85 09/22/17 18:00 106 31 100/59 100 Mechanical Ventilator 85 09/22/17 17:00 109 30 118/42 100 Mechanical Ventilator 85 09/22/17 16:45 108 29 85 09/22/17 16:00 109 09/22/17 16:00 98.7 109 31 110/45 98 Mechanical Ventilator 70 98.7 09/22/17 16:00 70 09/22/17 15:00 110 27 109/42 94 Mechanical Ventilator 70 09/22/17 15:00 110 36 113/49 95 Mechanical Ventilator 70 09/22/17 14:58 110 28 70 09/22/17 14:00 110 36 115/43 95 Mechanical Ventilator 70 09/22/17 13:25 117 116/44 09/22/17 13:00 116 30 116/44 95 Mechanical Ventilator 70 09/22/17 12:49 114 34 70 09/22/17 12:34 110 09/22/17 12:00 70 09/22/17 12:00 98.8 114 32 105/43 94 Mechanical Ventilator 70 98.8 09/22/17 12:00 115 Height (Feet): 5 Height (Inches): 0.00 Weight (Pounds): 105 Objective General Appearance: lethargic, thin EENT: normal ENT inspection Neck: non-tender, normal alignment, supple Cardiovascular: normal peripheral pulses, normal rate, regular rhythm, no gallop/murmur, no JVD Respiratory/Chest: Mechanical vent; respiratory distress, crackles/rales, rhonchi - bilaterally, expiratory wheezing Abdomen: normal bowel sounds, non tender, soft, no organomegaly, no mass Skin: normal pigmentation, warm/dry Microbiology Date/Time Source Procedure Growth Status 09/22/17 15:00 Stool Clostridium difficile Toxin Assay - Final Complete 09/22/17 10:30 Urine,Clean Catch Urine Culture - Preliminary Resulted Laboratory Tests Test 09/22/17 12:45 09/23/17 04:20 White Blood Count 26.4 K/UL (4.8-10.8) *H 22.5 K/UL (4.8-10.8) *H Red Blood Count 2.35 M/UL (4.20-5.40) L 2.00 M/UL (4.20-5.40) L Hemoglobin 7.7 G/DL (12.0-16.0) L 6.6 G/DL (12.0-16.0) *L Hematocrit 24.2 % (37.0-47.0) L 20.9 % (37.0-47.0) L Mean Corpuscular Volume 103 FL (80-99) H 104 FL (80-99) H Mean Corpuscular Hemoglobin 32.6 PG (27.0-31.0) H 33.1 PG (27.0-31.0) H Mean Corpuscular Hemoglobin Concent 31.8 G/DL (32.0-36.0) L 31.7 G/DL (32.0-36.0) L Red Cell Distribution Width 19.6 % (11.6-14.8) H 21.3 % (11.6-14.8) H Platelet Count 44 K/UL (150-450) #L 18 K/UL (150-450) #L Mean Platelet Volume 6.1 FL (6.5-10.1) L 10.0 FL (6.5-10.1) Neutrophils (%) (Auto) % (45.0-75.0) % (45.0-75.0) Lymphocytes (%) (Auto) % (20.0-45.0) % (20.0-45.0) Monocytes (%) (Auto) % (1.0-10.0) % (1.0-10.0) Eosinophils (%) (Auto) % (0.0-3.0) % (0.0-3.0) Basophils (%) (Auto) % (0.0-2.0) % (0.0-2.0) Differential Total Cells Counted 100 100 Neutrophils % (Manual) 78 % (45-75) H 75 % (45-75) Lymphocytes % (Manual) 7 % (20-45) L 6 % (20-45) L Monocytes % (Manual) 4 % (1-10) 6 % (1-10) Eosinophils % (Manual) 1 % (0-3) 1 % (0-3) Basophils % (Manual) 0 % (0-2) 0 % (0-2) Myelocytes % 3 % (0-0) H Band Neutrophils 7 % (0-8) 9 % (0-8) H Nucleated Red Blood Cells 9 /100 WBC 7 /100 WBC Platelet Estimate Decreased L Decreased L Platelet Morphology Normal Normal Polychromasia 2+ 2+ Hypochromasia 1+ 1+ Anisocytosis 2+ 2+ Macrocytosis 1+ 2+ Sodium Level 157 MMOL/L (136-145) H 158 MMOL/L (136-145) H Potassium Level 4.2 MMOL/L (3.5-5.1) 3.9 MMOL/L (3.5-5.1) Chloride Level 122 MMOL/L (98-107) H 122 MMOL/L (98-107) H Carbon Dioxide Level 27 MMOL/L (21-32) 28 MMOL/L (21-32) Anion Gap 8 mmol/L (5-15) 8 mmol/L (5-15) Blood Urea Nitrogen 59 mg/dL (7-18) H 50 mg/dL (7-18) H Creatinine 1.0 MG/DL (0.55-1.30) 1.0 MG/DL (0.55-1.30) Estimat Glomerular Filtration Rate mL/min (>60) mL/min (>60) Glucose Level 190 MG/DL (74-106) H 189 MG/DL (74-106) H Calcium Level 9.0 MG/DL (8.5-10.1) 8.6 MG/DL (8.5-10.1) Total Bilirubin 1.0 MG/DL (0.2-1.0) 0.8 MG/DL (0.2-1.0) Aspartate Amino Transf (AST/SGOT) 65 U/L (15-37) H 56 U/L (15-37) H Alanine Aminotransferase (ALT/SGPT) 40 U/L (12-78) 33 U/L (12-78) Alkaline Phosphatase 490 U/L (46-116) H 404 U/L (46-116) H C-Reactive Protein, Quantitative 30.5 mg/dL (0.00-0.90) H Total Protein 5.6 G/DL (6.4-8.2) L 5.5 G/DL (6.4-8.2) L Albumin 1.6 G/DL (3.4-5.0) L 1.5 G/DL (3.4-5.0) L Globulin 4.0 g/dL 4.0 g/dL Albumin/Globulin Ratio 0.4 (1.0-2.7) L 0.4 (1.0-2.7) L Lipase 78 U/L (73-393) 65 U/L (73-393) L Metamyelocytes % 3 % (0-0) H Pro-B-Type Natriuretic Peptide 99345 pg/mL (0-125) H Current Medications Medications (Trade) Dose Ordered Sig/Hermes Route PRN Reason Start Time Stop Time Status Last Admin Dose Admin Acetaminophen (Tylenol) 650 mg EVERY 6 HOURS PRN NG Fever/Headache/Mild Pain 09/13/17 20:45 10/13/17 20:44 09/21/17 06:04 Clonidine HCl (Catapres Tab) 0.1 mg Q4H PRN ORAL SBP>160 UNRELIEVED BY HYDRALAZ 09/16/17 16:45 10/15/17 16:59 Dextrose (Dextrose 50%) STAT PRN IV Hypoglycemia 09/13/17 15:00 10/13/17 14:59 Dextrose/ Electrolytes 1,000 ml @ 125 mls/hr Q8H IV 09/22/17 20:30 10/22/17 20:29 09/23/17 05:55 Diltiazem HCl (Cardizem) 30 mg EVERY 8 HOURS NG 09/18/17 22:00 10/18/17 21:59 09/23/17 06:25 Insulin Aspart (NovoLOG) EVERY 6 HOURS SUBQ 09/17/17 12:00 10/17/17 11:59 09/23/17 05:56 Meropenem 1 gm/ Sodium Chloride 55 ml @ 110 mls/hr Q12HR IVPB 09/19/17 21:00 09/24/17 20:59 09/22/17 20:47 Morphine Sulfate (Morphine Sulfate) 2 mg ONCE PRN IVP PRIOR TO HIDA SCAN 09/22/17 17:00 09/23/17 23:59 Pantoprazole (Protonix) 40 mg DAILY IV 09/13/17 09:00 10/13/17 08:59 09/22/17 08:20 Polyethylene Glycol (Miralax) 17 gm BEDTIME ORAL 09/14/17 21:00 10/14/17 20:59 09/18/17 20:42 Vancomycin HCl (Vancomycin) 125 mg FOUR TIMES A DAY ORAL 09/22/17 12:00 09/29/17 11:59 09/22/17 20:47 Madelyn Frey M.D. Sep 23, 2017 11:57
[2017-09-23] MEDS: Pantoprazole Inj IV SCH (12:03)
[2017-09-23] MEDS: Fluconazole 100mg tab ORAL SCH (12:10)
--- NOTE | 2017-09-23 12:13 | Diagnostic Imaging Report ---
Indication: Dyspnea Technique: One view of the chest Comparison: 09/22/2017 Findings: Bilateral diffuse interstitial and airspace disease persists, probably unchanged. Stable satisfactory positions of endotracheal and nasogastric tubes. Heart size is normal Impression: Unchanged, over one day, findings as above.
--- NOTE | 2017-09-23 12:28 | General Progress Note ---
Assessment/Plan Assessment/Plan 1. Thrombocytopenia, severe and progressive, acute onset, likely secondary to underlying infection, aspiration pneumonia versus HIT. --> Antibody test is pending. Heparin has been discontinued on 09/18/2017. --> Duplex of the lower extremities is negative, therefore less likely HIT and other causes are more likely such as underlying infection. 2. Anemia due to underlying chronic disease. Continue to closely monitor. --> Hemoglobin goal is above 7. --> Hgb level downtrended from yesterday, will need blood if levels continue to drop. --> Anemia workup has been reviewed at this point. --> Transfuse if hemoglobin less than 7. 3. Community-acquired pneumonia versus hospital-acquired. --> The patient on broad-spectrum antibiotics. --> Urine culture growing E. coli. Continue to closely monitor. 4. Transaminitis. She has been seen by GI Service. Continue to closely monitor. 5. Low-grade fever. Closely observe. 6. Leukocytosis likely related to underlying pneumonia infection. --> On abx. --> Wbc count worsened. Subjective Date patient seen: Sep 22, 2017 Constitutional: Denies: no symptoms, chills, diaphoresis, fever, malaise, weakness, other HEENT: Denies: no symptoms, eye pain, blurred vision, tearing, double vision, ear pain, ear discharge, nose pain, nose congestion, throat pain, throat swelling, mouth pain, mouth swelling, other Cardiovascular: Denies: no symptoms, chest pain, edema, irregular heart rate, lightheadedness, palpitations, syncope, other Respiratory: Denies: no symptoms, cough, orthopnea, shortness of breath, SOB with excertion, SOB at rest, sputum, stridor, wheezing, other Gastrointestinal/Abdominal: Denies: no symptoms, abdomen distended, abdominal pain, black stools, tarry stools, blood in stool, constipated, diarrhea, difficulty swallowing, nausea, poor appetite, poor fluid intake, rectal bleeding , vomiting, other Genitourinary: Denies: no symptoms, burning, discharge, frequency, flank pain, hematuria, incontinence, pain, urgency, other 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: Denies: no symptoms, anxiety, depressed, emotional problems, headache, numbness, paresthesia, pre-existing deficit, seizure, tingling, tremors, weakness, other Hematologic/Lymphatic: Reports: anemia Allergies: Coded Allergies: No Known Allergies (Verified , 11/18/08) Subjective Leukocytosis worsened. Ongoing abx treatment. Objective Last 24 Hour Vital Signs Date Time Temp Pulse Resp B/P (MAP) Pulse Ox O2 Delivery O2 Flow Rate FiO2 09/23/17 12:00 98.0 100 20 116/45 100 Mechanical Ventilator 85 98.0 09/23/17 12:00 85 09/23/17 11:29 111 24 85 09/23/17 11:00 106 20 135/48 100 Mechanical Ventilator 85 09/23/17 10:00 90 20 116/49 100 Mechanical Ventilator 85 09/23/17 09:01 85 26 85 09/23/17 09:00 100 24 104/45 100 Mechanical Ventilator 85 09/23/17 08:00 98.2 96 22 111/52 98 Mechanical Ventilator 85 98.2 09/23/17 08:00 85 09/23/17 07:04 87 28 85 09/23/17 07:00 90 20 114/100 100 Mechanical Ventilator 85 09/23/17 06:25 97 125/48 09/23/17 06:00 95 20 125/48 100 Mechanical Ventilator 85 09/23/17 05:18 103 36 85 09/23/17 05:00 98 25 113/48 100 Mechanical Ventilator 85 09/23/17 04:00 98 09/23/17 04:00 97.2 98 26 116/48 100 Mechanical Ventilator 85 97.2 09/23/17 04:00 85 09/23/17 03:29 99 34 85 09/23/17 03:00 98 26 111/48 100 Mechanical Ventilator 85 09/23/17 02:00 97 26 115/47 100 Mechanical Ventilator 85 09/23/17 01:23 101 34 85 09/23/17 01:00 95 27 117/44 100 Mechanical Ventilator 85 09/23/17 00:00 98 09/23/17 00:00 97.2 96 27 113/44 99 Mechanical Ventilator 85 97.2 09/23/17 00:00 85 09/22/17 23:14 97 27 85 09/22/17 23:00 96 28 110/37 100 Mechanical Ventilator 85 09/22/17 22:00 99 27 110/41 100 Mechanical Ventilator 85 09/22/17 21:56 104 113/44 09/22/17 21:28 102 30 85 09/22/17 21:00 105 27 114/42 100 Mechanical Ventilator 85 09/22/17 20:00 98.4 100 27 114/49 100 Mechanical Ventilator 85 98.4 09/22/17 20:00 85 09/22/17 20:00 106 09/22/17 19:22 109 32 85 09/22/17 19:00 105 30 112/55 100 Mechanical Ventilator 85 09/22/17 18:00 106 31 100/59 100 Mechanical Ventilator 85 09/22/17 17:00 109 30 118/42 100 Mechanical Ventilator 85 09/22/17 16:45 108 29 85 09/22/17 16:00 109 09/22/17 16:00 98.7 109 31 110/45 98 Mechanical Ventilator 70 98.7 09/22/17 16:00 70 09/22/17 15:00 110 27 109/42 94 Mechanical Ventilator 70 09/22/17 15:00 110 36 113/49 95 Mechanical Ventilator 70 09/22/17 14:58 110 28 70 09/22/17 14:00 110 36 115/43 95 Mechanical Ventilator 70 09/22/17 13:25 117 116/44 09/22/17 13:00 116 30 116/44 95 Mechanical Ventilator 70 09/22/17 12:49 114 34 70 09/22/17 12:34 110 Intake and Output 09/22/17 09/23/17 19:00 07:00 Intake Total 925 ml 1270 ml Output Total 730 ml 660 ml Balance 195 ml 610 ml Intake Free Water 130 ml IV Total 55 ml 1180 ml Tube Feeding 540 ml 90 ml Blood Product 200 ml Output Urine Total 730 ml 660 ml # Bowel Movements 3 Laboratory Tests 09/22/17 12:45: White Blood Count 26.4*H, Red Blood Count 2.35L, Hemoglobin 7.7L, Hematocrit 24.2L, Mean Corpuscular Volume 103H, Mean Corpuscular Hemoglobin 32.6H, Mean Corpuscular Hemoglobin Concent 31.8L, Red Cell Distribution Width 19.6H, Platelet Count 44#L, Mean Platelet Volume 6.1L, Neutrophils (%) (Auto) , Lymphocytes (%) (Auto) , Monocytes (%) (Auto) , Eosinophils (%) (Auto) , Basophils (%) (Auto) , Differential Total Cells Counted 100, Neutrophils % ( Manual) 78H, Lymphocytes % (Manual) 7L, Monocytes % (Manual) 4, Eosinophils % ( Manual) 1, Basophils % (Manual) 0, Myelocytes % 3H, Band Neutrophils 7, Nucleated Red Blood Cells 9, Platelet Estimate DecreasedL, Platelet Morphology Normal, Polychromasia 2+, Hypochromasia 1+, Anisocytosis 2+, Macrocytosis 1+, Sodium Level 157H, Potassium Level 4.2, Chloride Level 122H, Carbon Dioxide Level 27, Anion Gap 8, Blood Urea Nitrogen 59H, Creatinine 1.0, Estimat Glomerular Filtration Rate , Glucose Level 190H, Calcium Level 9.0, Total Bilirubin 1.0, Aspartate Amino Transf (AST/SGOT) 65H, Alanine Aminotransferase ( ALT/SGPT) 40, Alkaline Phosphatase 490H, C-Reactive Protein, Quantitative 30.5H , Total Protein 5.6L, Albumin 1.6L, Globulin 4.0, Albumin/Globulin Ratio 0.4L, Lipase 78 09/23/17 04:20: White Blood Count 22.5*H, Red Blood Count 2.00L, Hemoglobin 6.6*L, Hematocrit 20.9L, Mean Corpuscular Volume 104H, Mean Corpuscular Hemoglobin 33.1H, Mean Corpuscular Hemoglobin Concent 31.7L, Red Cell Distribution Width 21.3H, Platelet Count 18#L, Mean Platelet Volume 10.0, Neutrophils (%) (Auto) , Lymphocytes (%) (Auto) , Monocytes (%) (Auto) , Eosinophils (%) (Auto) , Basophils (%) (Auto) , Differential Total Cells Counted 100, Neutrophils % ( Manual) 75, Lymphocytes % (Manual) 6L, Monocytes % (Manual) 6, Eosinophils % ( Manual) 1, Basophils % (Manual) 0, Band Neutrophils 9H, Nucleated Red Blood Cells 7, Platelet Estimate DecreasedL, Platelet Morphology Normal, Polychromasia 2+, Hypochromasia 1+, Anisocytosis 2+, Macrocytosis 2+, Sodium Level 158H, Potassium Level 3.9, Chloride Level 122H, Carbon Dioxide Level 28, Anion Gap 8, Blood Urea Nitrogen 50H, Creatinine 1.0, Estimat Glomerular Filtration Rate , Glucose Level 189H, Calcium Level 8.6, Total Bilirubin 0.8, Aspartate Amino Transf (AST/SGOT) 56H, Alanine Aminotransferase (ALT/SGPT) 33, Alkaline Phosphatase 404H, Total Protein 5.5L, Albumin 1.5L, Globulin 4.0, Albumin/Globulin Ratio 0.4L, Lipase 65L, Metamyelocytes % 3H, Pro-B-Type Natriuretic Peptide 71962D Height (Feet): 5 Height (Inches): 0.00 Weight (Pounds): 105 Respiratory/Chest: decreased breath sounds Abdomen: soft Johnny Sinha Sep 23, 2017 12:28
[2017-09-23] MEDS ORDERED: Amikacin 700 MG in NS 110 ML IV ONE (14:00)
[2017-09-23] MEDS: metroNIDAZOLE 500mg tab ORAL SCH ×2 (14:59→21:45)
--- NOTE | 2017-09-23 16:01 | Cardiac Electrophysiology PN ---
Assessment/Plan Assessment/Plan 1. Respiratory failure, due to underlying ARDS , pneumonia,. Intubated on the vent. Already ruled out for myocardial infarction. Still on 70% Fio2 with PEEP of 7 2. Left bundle-branch block. No evidence of advanced heart block. 3. HTN and diastolic dysfunction. On Cardizem 30 q8 hr. 4. Hypernatremia and azotemia. 5. Pneumonia and sepsis on IV antibiotics by Dr. Hunter. 6. History of psychiatric disorder. 7. Anasarca. 3rd spacing 8. Anemia with Hb 6.[address] chest abdomen and pelvis pending 9. Severe thrombocytopenia. Getting platelet transfusion DW RN Subjective Subjective Intubated on Vent in ICU in sinus tach. Getting PRBC. Already got 2 Platelet transfusions. Objective Last 24 Hour Vital Signs Date Time Temp Pulse Resp B/P (MAP) Pulse Ox O2 Delivery O2 Flow Rate FiO2 09/23/17 15:29 101 28 85 09/23/17 14:59 107 115/71 09/23/17 13:08 96 28 85 09/23/17 13:00 98.2 95 20 106/48 100 Mechanical Ventilator 85 98.2 09/23/17 12:00 98.0 100 20 116/45 100 Mechanical Ventilator 85 98.0 09/23/17 12:00 85 09/23/17 11:29 111 24 85 09/23/17 11:00 106 20 135/48 100 Mechanical Ventilator 85 09/23/17 10:00 90 20 116/49 100 Mechanical Ventilator 85 09/23/17 09:01 85 26 85 09/23/17 09:00 100 24 104/45 100 Mechanical Ventilator 85 09/23/17 08:00 98.2 96 22 111/52 98 Mechanical Ventilator 85 98.2 09/23/17 08:00 85 09/23/17 07:04 87 28 85 09/23/17 07:00 90 20 114/100 100 Mechanical Ventilator 85 09/23/17 06:25 97 125/48 09/23/17 06:00 95 20 125/48 100 Mechanical Ventilator 85 09/23/17 05:18 103 36 85 09/23/17 05:00 98 25 113/48 100 Mechanical Ventilator 85 09/23/17 04:00 98 09/23/17 04:00 97.2 98 26 116/48 100 Mechanical Ventilator 85 97.2 09/23/17 04:00 85 09/23/17 03:29 99 34 85 09/23/17 03:00 98 26 111/48 100 Mechanical Ventilator 85 09/23/17 02:00 97 26 115/47 100 Mechanical Ventilator 85 09/23/17 01:23 101 34 85 09/23/17 01:00 95 27 117/44 100 Mechanical Ventilator 85 09/23/17 00:00 98 09/23/17 00:00 97.2 96 27 113/44 99 Mechanical Ventilator 85 97.2 09/23/17 00:00 85 09/22/17 23:14 97 27 85 09/22/17 23:00 96 28 110/37 100 Mechanical Ventilator 85 09/22/17 22:00 99 27 110/41 100 Mechanical Ventilator 85 09/22/17 21:56 104 113/44 09/22/17 21:28 102 30 85 09/22/17 21:00 105 27 114/42 100 Mechanical Ventilator 85 09/22/17 20:00 98.4 100 27 114/49 100 Mechanical Ventilator 85 98.4 09/22/17 20:00 85 09/22/17 20:00 106 09/22/17 19:22 109 32 85 09/22/17 19:00 105 30 112/55 100 Mechanical Ventilator 85 09/22/17 18:00 106 31 100/59 100 Mechanical Ventilator 85 09/22/17 17:00 109 30 118/42 100 Mechanical Ventilator 85 09/22/17 16:45 108 29 85 09/22/17 16:00 109 09/22/17 16:00 98.7 109 31 110/45 98 Mechanical Ventilator 70 98.7 09/22/17 16:00 70 Intake and Output 09/22/17 09/23/17 19:00 07:00 Intake Total 925 ml 1395 ml Output Total 730 ml 660 ml Balance 195 ml 735 ml Intake Free Water 130 ml IV Total 55 ml 1305 ml Tube Feeding 540 ml 90 ml Blood Product 200 ml Output Urine Total 730 ml 660 ml # Bowel Movements 3 Laboratory Tests Test 09/23/17 04:20 White Blood Count 22.5 K/UL (4.8-10.8) *H Red Blood Count 2.00 M/UL (4.20-5.40) L Hemoglobin 6.6 G/DL (12.0-16.0) *L Hematocrit 20.9 % (37.0-47.0) L Mean Corpuscular Volume 104 FL (80-99) H Mean Corpuscular Hemoglobin 33.1 PG (27.0-31.0) H Mean Corpuscular Hemoglobin Concent 31.7 G/DL (32.0-36.0) L Red Cell Distribution Width 21.3 % (11.6-14.8) H Platelet Count 18 K/UL (150-450) #L Mean Platelet Volume 10.0 FL (6.5-10.1) Neutrophils (%) (Auto) % (45.0-75.0) Lymphocytes (%) (Auto) % (20.0-45.0) Monocytes (%) (Auto) % (1.0-10.0) Eosinophils (%) (Auto) % (0.0-3.0) Basophils (%) (Auto) % (0.0-2.0) Differential Total Cells Counted 100 Neutrophils % (Manual) 75 % (45-75) Lymphocytes % (Manual) 6 % (20-45) L Monocytes % (Manual) 6 % (1-10) Eosinophils % (Manual) 1 % (0-3) Basophils % (Manual) 0 % (0-2) Metamyelocytes % 3 % (0-0) H Band Neutrophils 9 % (0-8) H Nucleated Red Blood Cells 7 /100 WBC Platelet Estimate Decreased L Platelet Morphology Normal Polychromasia 2+ Hypochromasia 1+ Anisocytosis 2+ Macrocytosis 2+ Sodium Level 158 MMOL/L (136-145) H Potassium Level 3.9 MMOL/L (3.5-5.1) Chloride Level 122 MMOL/L (98-107) H Carbon Dioxide Level 28 MMOL/L (21-32) Anion Gap 8 mmol/L (5-15) Blood Urea Nitrogen 50 mg/dL (7-18) H Creatinine 1.0 MG/DL (0.55-1.30) Estimat Glomerular Filtration Rate mL/min (>60) Glucose Level 189 MG/DL (74-106) H Calcium Level 8.6 MG/DL (8.5-10.1) Total Bilirubin 0.8 MG/DL (0.2-1.0) Aspartate Amino Transf (AST/SGOT) 56 U/L (15-37) H Alanine Aminotransferase (ALT/SGPT) 33 U/L (12-78) Alkaline Phosphatase 404 U/L (46-116) H Pro-B-Type Natriuretic Peptide 11377 pg/mL (0-125) H Total Protein 5.5 G/DL (6.4-8.2) L Albumin 1.5 G/DL (3.4-5.0) L Globulin 4.0 g/dL Albumin/Globulin Ratio 0.4 (1.0-2.7) L Lipase 65 U/L (73-393) L Microbiology Date/Time Source Procedure Growth Status 09/22/17 15:00 Stool Clostridium difficile Toxin Assay - Final Complete 09/22/17 10:30 Urine,Clean Catch Urine Culture - Preliminary Resulted Objective HEAD AND NECK: Orally intubated. LUNGS: Coarse rhonchi bilaterally CARDIOVASCULAR: Tachy S1 and S2.No murmur ABDOMEN: Soft. EXTREMITIES: 1+ pitting edema. ROLF OLIVIA Sep 23, 2017 16:01
--- NOTE | 2017-09-23 16:26 | Nephrology Progress Note ---
Assessment/Plan Problem List: (1) ARDS (adult respiratory distress syndrome) (2) Electrolyte imbalance (3) Thrombocytopenia Assessment Na 158 Platelets [address]95 (1) ARDS (adult respiratory distress syndrome) (2) Aspiration pneumonia (3) Protein-calorie malnutrition, severe (4) Diabetes mellitus (5) Anemia , aplastic by history (6) DM (7) UTI (8) Electrolyte imbalance (9) HTN (10) Depression (11) RA . Plan doing poorly water via NGT Adjust BP meds K and Phos supplement as needed Monitor renal parameters and urine output avoid nephrotoxics per orders discussed with RN Left ventricular ejection fraction estimated to be 55 %. Subjective ROS Limited/Unobtainable: Yes Objective Objective Last 24 Hour Vital Signs Date Time Temp Pulse Resp B/P (MAP) Pulse Ox O2 Delivery O2 Flow Rate FiO2 09/23/17 16:00 85 09/23/17 16:00 106 20 103/43 100 Mechanical Ventilator 85 09/23/17 15:29 101 28 85 09/23/17 15:00 101 20 112/45 100 Mechanical Ventilator 85 09/23/17 14:59 107 115/71 09/23/17 14:00 102 22 113/46 100 Mechanical Ventilator 85 09/23/17 13:08 96 28 85 09/23/17 13:00 98.2 95 20 106/48 100 Mechanical Ventilator 85 98.2 09/23/17 12:00 98.0 100 20 116/45 100 Mechanical Ventilator 85 98.0 09/23/17 12:00 85 09/23/17 12:00 101 09/23/17 11:29 111 24 85 09/23/17 11:00 106 20 135/48 100 Mechanical Ventilator 85 09/23/17 10:00 90 20 116/49 100 Mechanical Ventilator 85 09/23/17 09:01 85 26 85 09/23/17 09:00 100 24 104/45 100 Mechanical Ventilator 85 09/23/17 08:00 98.2 96 22 111/52 98 Mechanical Ventilator 85 98.2 09/23/17 08:00 85 09/23/17 08:00 90 09/23/17 07:04 87 28 85 09/23/17 07:00 90 20 114/100 100 Mechanical Ventilator 85 09/23/17 06:25 97 125/48 09/23/17 06:00 95 20 125/48 100 Mechanical Ventilator 85 09/23/17 05:18 103 36 85 09/23/17 05:00 98 25 113/48 100 Mechanical Ventilator 85 09/23/17 04:00 98 09/23/17 04:00 97.2 98 26 116/48 100 Mechanical Ventilator 85 97.2 09/23/17 04:00 85 09/23/17 03:29 99 34 85 09/23/17 03:00 98 26 111/48 100 Mechanical Ventilator 85 09/23/17 02:00 97 26 115/47 100 Mechanical Ventilator 85 09/23/17 01:23 101 34 85 09/23/17 01:00 95 27 117/44 100 Mechanical Ventilator 85 09/23/17 00:00 98 09/23/17 00:00 97.2 96 27 113/44 99 Mechanical Ventilator 85 97.2 09/23/17 00:00 85 09/22/17 23:14 97 27 85 09/22/17 23:00 96 28 110/37 100 Mechanical Ventilator 85 09/22/17 22:00 99 27 110/41 100 Mechanical Ventilator 85 09/22/17 21:56 104 113/44 09/22/17 21:28 102 30 85 09/22/17 21:00 105 27 114/42 100 Mechanical Ventilator 85 09/22/17 20:00 98.4 100 27 114/49 100 Mechanical Ventilator 85 98.4 09/22/17 20:00 85 09/22/17 20:00 106 09/22/17 19:22 109 32 85 09/22/17 19:00 105 30 112/55 100 Mechanical Ventilator 85 09/22/17 18:00 106 31 100/59 100 Mechanical Ventilator 85 09/22/17 17:00 109 30 118/42 100 Mechanical Ventilator 85 09/22/17 16:45 108 29 85 Intake and Output 09/22/17 09/23/17 19:00 07:00 Intake Total 925 ml 1395 ml Output Total 730 ml 660 ml Balance 195 ml 735 ml Intake Free Water 130 ml IV Total 55 ml 1305 ml Tube Feeding 540 ml 90 ml Blood Product 200 ml Output Urine Total 730 ml 660 ml # Bowel Movements 3 Laboratory Tests 09/23/17 04:20: White Blood Count 22.5*H, Red Blood Count 2.00L, Hemoglobin 6.6*L, Hematocrit 20.9L, Mean Corpuscular Volume 104H, Mean Corpuscular Hemoglobin 33.1H, Mean Corpuscular Hemoglobin Concent 31.7L, Red Cell Distribution Width 21.3H, Platelet Count 18#L, Mean Platelet Volume 10.0, Neutrophils (%) (Auto) , Lymphocytes (%) (Auto) , Monocytes (%) (Auto) , Eosinophils (%) (Auto) , Basophils (%) (Auto) , Differential Total Cells Counted 100, Neutrophils % ( Manual) 75, Lymphocytes % (Manual) 6L, Monocytes % (Manual) 6, Eosinophils % ( Manual) 1, Basophils % (Manual) 0, Metamyelocytes % 3H, Band Neutrophils 9H, Nucleated Red Blood Cells 7, Platelet Estimate DecreasedL, Platelet Morphology Normal, Polychromasia 2+, Hypochromasia 1+, Anisocytosis 2+, Macrocytosis 2+, Sodium Level 158H, Potassium Level 3.9, Chloride Level 122H, Carbon Dioxide Level 28, Anion Gap 8, Blood Urea Nitrogen 50H, Creatinine 1.0, Estimat Glomerular Filtration Rate , Glucose Level 189H, Calcium Level 8.6, Total Bilirubin 0.8, Aspartate Amino Transf (AST/SGOT) 56H, Alanine Aminotransferase ( ALT/SGPT) 33, Alkaline Phosphatase 404H, Pro-B-Type Natriuretic Peptide 62912U, Total Protein 5.5L, Albumin 1.5L, Globulin 4.0, Albumin/Globulin Ratio 0.4L, Lipase 65L Height (Feet): 5 Height (Inches): 0.00 Weight (Pounds): 105 General Appearance: no apparent distress EENT: other - intubated - on 85% FIO2 Respiratory/Chest: decreased breath sounds Abdomen: distended Objective no change YAEL HANSEN Sep 23, 2017 16:26
--- NOTE | 2017-09-23 19:23 | Internal Med Progress Note ---
Subjective Date of Service: Sep 23, 2017 Physician Name Noah Bowens Attending Physician Jesus Barahona MD Current Medications Medications (Trade) Dose Ordered Sig/Hermes Route PRN Reason Start Time Stop Time Status Last Admin Dose Admin Acetaminophen (Tylenol) 650 mg EVERY 6 HOURS PRN NG Fever/Headache/Mild Pain 09/13/17 20:45 10/13/17 20:44 09/21/17 06:04 Amikacin Protocol (Amikacin pharmacy to dose) 1 ea DAILY PRN MISC Per rx protocol 09/23/17 11:45 10/23/17 11:44 Clonidine HCl (Catapres Tab) 0.1 mg Q4H PRN ORAL SBP>160 UNRELIEVED BY HYDRALAZ 09/16/17 16:45 10/15/17 16:59 Dextrose (Dextrose 50%) STAT PRN IV Hypoglycemia 09/13/17 15:00 10/13/17 14:59 Dextrose/ Electrolytes 1,000 ml @ 125 mls/hr Q8H IV 09/22/17 20:30 10/22/17 20:29 09/23/17 12:10 Diltiazem HCl (Cardizem) 30 mg EVERY 8 HOURS NG 09/18/17 22:00 10/18/17 21:59 09/23/17 14:59 Fluconazole (Diflucan) 200 mg DAILY ORAL 09/23/17 12:30 09/30/17 12:29 09/23/17 12:10 Insulin Aspart (NovoLOG) EVERY 6 HOURS SUBQ 09/17/17 12:00 10/17/17 11:59 09/23/17 18:09 Metronidazole (Flagyl) 500 mg Q8HR ORAL 09/23/17 14:00 09/30/17 13:59 09/23/17 14:59 Morphine Sulfate (Morphine Sulfate) 2 mg ONCE PRN IVP PRIOR TO HIDA SCAN 09/22/17 17:00 09/23/17 23:59 Polyethylene Glycol (Miralax) 17 gm BEDTIME ORAL 09/14/17 21:00 10/14/17 20:59 09/18/17 20:42 Allergies: Coded Allergies: No Known Allergies (Verified , 11/18/08) ROS Limited/Unobtainable: Yes Subjective 76 YO F admitted with Shortness of breath, now respiratory failure. Intubated and sedated. Cover for Internal Med-Dr. Barahona. ICU Objective Last Vital Signs Date Time Temp Pulse Resp B/P (MAP) Pulse Ox O2 Delivery O2 Flow Rate FiO2 09/23/17 17:03 65 25 85 09/23/17 16:00 103/43 100 Mechanical Ventilator 09/23/17 13:00 98.2 98.2 Laboratory Tests Test 09/23/17 04:20 White Blood Count 22.5 K/UL (4.8-10.8) *H Red Blood Count 2.00 M/UL (4.20-5.40) L Hemoglobin 6.6 G/DL (12.0-16.0) *L Hematocrit 20.9 % (37.0-47.0) L Mean Corpuscular Volume 104 FL (80-99) H Mean Corpuscular Hemoglobin 33.1 PG (27.0-31.0) H Mean Corpuscular Hemoglobin Concent 31.7 G/DL (32.0-36.0) L Red Cell Distribution Width 21.3 % (11.6-14.8) H Platelet Count 18 K/UL (150-450) #L Mean Platelet Volume 10.0 FL (6.5-10.1) Neutrophils (%) (Auto) % (45.0-75.0) Lymphocytes (%) (Auto) % (20.0-45.0) Monocytes (%) (Auto) % (1.0-10.0) Eosinophils (%) (Auto) % (0.0-3.0) Basophils (%) (Auto) % (0.0-2.0) Differential Total Cells Counted 100 Neutrophils % (Manual) 75 % (45-75) Lymphocytes % (Manual) 6 % (20-45) L Monocytes % (Manual) 6 % (1-10) Eosinophils % (Manual) 1 % (0-3) Basophils % (Manual) 0 % (0-2) Metamyelocytes % 3 % (0-0) H Band Neutrophils 9 % (0-8) H Nucleated Red Blood Cells 7 /100 WBC Platelet Estimate Decreased L Platelet Morphology Normal Polychromasia 2+ Hypochromasia 1+ Anisocytosis 2+ Macrocytosis 2+ Sodium Level 158 MMOL/L (136-145) H Potassium Level 3.9 MMOL/L (3.5-5.1) Chloride Level 122 MMOL/L (98-107) H Carbon Dioxide Level 28 MMOL/L (21-32) Anion Gap 8 mmol/L (5-15) Blood Urea Nitrogen 50 mg/dL (7-18) H Creatinine 1.0 MG/DL (0.55-1.30) Estimat Glomerular Filtration Rate mL/min (>60) Glucose Level 189 MG/DL (74-106) H Calcium Level 8.6 MG/DL (8.5-10.1) Total Bilirubin 0.8 MG/DL (0.2-1.0) Aspartate Amino Transf (AST/SGOT) 56 U/L (15-37) H Alanine Aminotransferase (ALT/SGPT) 33 U/L (12-78) Alkaline Phosphatase 404 U/L (46-116) H Pro-B-Type Natriuretic Peptide 22220 pg/mL (0-125) H Total Protein 5.5 G/DL (6.4-8.2) L Albumin 1.5 G/DL (3.4-5.0) L Globulin 4.0 g/dL Albumin/Globulin Ratio 0.4 (1.0-2.7) L Lipase 65 U/L (73-393) L Microbiology Date/Time Source Procedure Growth Status 09/22/17 15:00 Stool Clostridium difficile Toxin Assay - Final Complete 09/22/17 10:30 Urine,Clean Catch Urine Culture - Preliminary Resulted Intake and Output 09/22/17 09/23/17 19:00 07:00 Intake Total 925 ml 1395 ml Output Total 730 ml 660 ml Balance 195 ml 735 ml Intake Free Water 130 ml IV Total 55 ml 1305 ml Tube Feeding 540 ml 90 ml Blood Product 200 ml Output Urine Total 730 ml 660 ml # Bowel Movements 3 Objective General Appearance: lethargic, thin EENT: normal ENT inspection Neck: non-tender, normal alignment, supple Cardiovascular: normal peripheral pulses, normal rate, regular rhythm, no gallop/murmur, no JVD Respiratory/Chest: Mechanical vent; respiratory distress, crackles/rales, rhonchi - bilaterally, expiratory wheezing Abdomen: normal bowel sounds, non tender, soft, no organomegaly, no mass Skin: normal pigmentation, warm/dry Assessment/Plan Problem List: (1) HTN (hypertension) Assessment & Plan: Currently hypotensive. (2) Arthritis, rheumatoid (3) Parkinsons disease (4) Aplastic anemia (5) GERD (gastroesophageal reflux disease) (6) Respiratory failure Assessment & Plan: Cont vent per pulmonary (7) Pneumonia (8) Dyspnea (9) Sepsis Assessment & Plan: Blood culture neg. Continue Amikacin and fluconazole per ID (10) ARDS (adult respiratory distress syndrome) Assessment & Plan: See pulmonary note (11) UTI (urinary tract infection) Assessment & Plan: E.Coli. Continue levaquin (12) Anemia Assessment & Plan: S/P Transfusion 2 units PRBC (13) Diabetes mellitus, type II Assessment & Plan: Continue novolog sliding scale (14) Leukocytosis Assessment & Plan: Worsening. See ID note. Start amikacin and fluconazole (15) Thrombocytopenia Status: not improved NOAH BOWENS Sep 23, 2017 19:23
[2017-09-23] MEDS: Miralax 17gm pkt ORAL SCH (20:43)
[2017-09-24] VITALS (24 sets, daily range): BP systolic 100–129; BP diastolic 47–64
[2017-09-24] MEDS: NovoLOG Insulin Flexpen SUBQ SCH ×5 (00:24→23:39)
[2017-09-24] MEDS: D5 1/2NS w/KCL 10meq 1,000 ML IV SCH ×3 (03:06→23:37)
[2017-09-24 04:16] LABS: HEMATOCRIT 27.1 % (37.0-47.0); HEMOGLOBIN 8.9 G/DL (12.0-16.0); MEAN CORPUSCULAR VOLUME 96 FL (80-99); PLATELET COUNT 25 K/UL (150-450); RED BLOOD COUNT 2.81 M/UL (4.20-5.40); WHITE BLOOD COUNT 19.7 K/UL (4.8-10.8)
[2017-09-24 04:24] LABS: INR 1.1 (0.9-1.1)
[2017-09-24 04:34] LABS: ALANINE AMINOTRANSFERASE 28 U/L (12-78); ALBUMIN 1.6 G/DL (3.4-5.0); ALBUMIN/GLOBULIN RATIO 0.4 (1.0-2.7); ALKALINE PHOSPHATASE 350 U/L (46-116); ANION GAP 10 mmol/L (5-15); ASPARTATE AMINO TRANSFERASE 55 U/L (15-37); BILIRUBIN,TOTAL 1.1 MG/DL (0.2-1.0); BLOOD UREA NITROGEN 39 mg/dL (7-18); CALCIUM 8.1 MG/DL (8.5-10.1); CARBON DIOXIDE 26 MMOL/L (21-32); CHLORIDE 119 MMOL/L (98-107); PHOSPHORUS 3.9 MG/DL (2.5-4.9); POTASSIUM 3.7 MMOL/L (3.5-5.1); SODIUM 155 MMOL/L (136-145)
[2017-09-24 04:44] LABS: BILIRUBIN,DIRECT 0.5 MG/DL (0.0-0.3)
[2017-09-24] MEDS: metroNIDAZOLE 500mg tab ORAL SCH ×3 (06:03→22:30)
[2017-09-24] MEDS: dilTIAZem HCl 30mg tab NG SCH ×3 (06:03→22:30)
--- NOTE | 2017-09-24 08:22 | Diagnostic Imaging Report ---
Indication: Altered mental status and weakness Technique: spiral acquisitions obtained through the brain. Angled axial and coronal 5 x 5 mm slices were reconstructed. No IV contrast utilized. Radiation dose was minimized using automated exposure control Total dose length product 1344.42 mGycm. CTDIvol(s) 70.38 mGy Comparison: none FINDINGS: No acute hemorrhage or edema. No mass effect or midline shift. There is age-related enlargement of the ventricles and extra axial CSF spaces. There is periventricular deep white matter ischemic change. Normal campuzano-white differentiation. There is evidence of prior bilateral cataract surgery. There is ethmoid, sphenoid, and left maxillary sinus disease. There is bilateral mastoid opacification, possibly also involving the bilateral middle ears. Intact calvarium. IMPRESSION: Chronic and age-related changes. Negative for acute intracranial bleed or mass effect Sinus disease Mastoid disease This agrees with the preliminary interpretation provided overnight by [facility] service. The CT scanner at [facility] is accredited by the [employer] and the scans are performed using protocols designed to limit radiation exposure to as low as reasonably achievable to attain images of sufficient resolution adequate for diagnostic evaluation
--- NOTE | 2017-09-24 08:34 | Diagnostic Imaging Report ---
Indication: Abdominal pain Technique: Spiral acquisitions obtained through the abdomen and pelvis. Patient given enteric contrast. No IV contrast utilized, per referring physician request.. Multiplanar reconstructions were generated. Total dose length product 1028.17 mGycm. CTDIvol(s) 12.92,14.79 mGy, inclusive of chest CT performed the same time. Dose reduction achieved using automated exposure control Comparison: None. Reference made to recent nuclear medicine hepatobiliary scan and ultrasound Findings: There is some image degradation due to motion artifact. There is anasarca, with diffuse edema of the subcutaneous and mesenteric fat, in addition to bilateral pleural effusions and pulmonary edema and trace ascites. The appendix is not definitely identified, but no findings to suggest acute appendicitis are evident. No small bowel distention or small bowel wall thickening. Contrast is seen throughout the entirety of the small bowel and throughout the entirety of the colon. There is equivocal wall thickening of the distal sigmoid, but this is probably an artifact of under distention. There is a nasogastric tube, tip in the gastric antrum. No free intraperitoneal air. Lack of IV contrast limits assessment of the solid organs. Small densities dependently in the gallbladder may reflect small gallstones, although gallstones are not identified on recent ultrasound. The gallbladder wall appears to be edematous. No definite biliary ductal dilatation. There is a small duodenal diverticulum. The liver is unremarkable. The pancreas, spleen, adrenals, kidneys are unremarkable. No retroperitoneal or mesenteric mass or adenopathy. No pelvic mass or adenopathy. The bladder contains a Davidson catheter, is nondistended. Small amount of air within the bladder presumably related to the Davidson catheterization. There is a rectal tube. Increased fat in the right hip region is noted. Uncertain as to whether this represents asymmetric fat deposition or a lipoma. Old ununited fracture deformities of the right anterior pubic ramus and the right iliac wing are noted. Dislocation, presumably chronic, of both hips is noted. Findings of the lung bases are discussed in separate chest CT report Impression: Evidence of anasarca, with diffuse edema subcutaneous and mesenteric fat, bilateral pleural effusions, possible pulmonary edema, trace ascites Nasogastric tube in good position Densities within the gallbladder, probably reflecting tiny gallstones, although these are not identifiable on recent ultrasound. Gallbladder wall edema is probably a manifestation of anasarca, as recent hepatobiliary scan was negative for acute cholecystitis Old ununited fracture deformities of the right pelvis. Bilateral chronic appearing hip dislocations Other findings as noted, include in right hip asymmetric fat or lipoma, Davidson catheter within the bladder, rectal tube. This agrees with the preliminary interpretation provided overnight by [facility]. The CT scanner at [facility] is accredited by the [employer] and the scans are performed using protocols designed to limit radiation exposure to as low as reasonably achievable to attain images of sufficient resolution adequate for diagnostic evaluation.
--- NOTE | 2017-09-24 08:42 | Diagnostic Imaging Report ---
Clinical Indication: Chest pain Technique: Spiral acquisitions obtained through the chest. No IV contrast utilized, reason not stated. Multiplanar reconstructions generated. Total dose length product 1028.17 mGycm. CTDIvol(s) 12.92,14.79 mGy. Dose reduction achieved using automated exposure control Comparison: none Findings: Extensive bilateral groundglass opacities interspersed with dense consolidation are seen throughout the entirety of both lungs. There are bilateral pleural effusions, somewhat larger on the left than on the right. There is an endotracheal tube in place, tip in good position 3 cm above the ludmila. There is a nasogastric tube in place, demonstrated on abdomen and pelvis CT to have the tip in the gastric antrum. Lack of IV contrast limits assessment of the needles final structures. Calcified prominent but not frankly enlarged mediastinal nodes are demonstrated. The heart size is upper limits of normal. No pericardial effusion. The thyroid demonstrates multiple nodules, none definitely over 1 cm diameter. No axillary or chest wall mass or adenopathy. There is diffuse edema of the subcutaneous fat, particularly more inferiorly. There are degenerative changes of both shoulders, worse on the right than on the left. There are mild degenerative changes of the thoracic spine. Impression: Diffuse extensive pulmonary parenchymal disease, with dense consolidation interspersed with groundglass opacities. Appearance nonspecific, possibilities include pulmonary edema, pneumonia, ARDS, hemorrhage Bilateral pleural effusions, left greater than right Diffuse edema of the subcutaneous fat Satisfactory endotracheal and enteric tube placement Multiple small thyroid nodules. All apparently under 1 cm, no further follow-up necessary Degenerative changes of the shoulders This agrees with the preliminary interpretation provided overnight by [facility]. The CT scanner at [facility] is accredited by the [employer] and the scans are performed using protocols designed to limit radiation exposure to as low as reasonably achievable to attain images of sufficient resolution adequate for diagnostic evaluation.
[2017-09-24] MEDS: Fluconazole 100mg tab ORAL SCH (09:21)
--- NOTE | 2017-09-24 09:37 | Infectious Diseases Prog Note ---
Assessment/Plan Assessment/Plan ASSESSMENT: The patient is a 76-year-old female w Fever, SP Leukocytosis , improving- r/o new infection, JOSETTE, bacteremia -Cdiff neg -09/22 sp cx C.a lbicans, Bcx NTD -u/a wbc 10-15, nit neg, leuk +2; ucx p -Fungal sp cx p Community-acquired vs healthcare-associated pneumonia (the patient has been recently hospitalized in [facility]). -now ARDS- r/o fungal PNA -CT chest 09/23: Diffuse extensive pulmonary parenchymal disease, with dense consolidation interspersed with groundglass opacities. Appearance nonspecific, possibilities include pulmonary edema, pneumonia, ARDS, hemorrhage. Bilateral pleural effusions, left greater than right. Diffuse edema of the subcutaneous fat, Multiple small thyroid nodules. All apparently under 1 cm, no further follow-up necessary. Degenerative changes of the shoulders 09/19 xray : Unchanged diffuse interstitial and airspace edema, Probable influenza despite of negative influenza screening test, s/p Rx Abnormal liver function tests, ALP>>> AST -?cholangitis, obstruction on CBD -HIDA scan: Negative for evidence of cystic duct obstruction/acute cholecystitis. Common bile duct is demonstrated be patent, but emptying into the duodenum is delayed, not seen until 2 hours. Significance of this is uncertain. MRCP or CT scanning may be useful to clarify -CT abd/p 09/23: Evidence of anasarca, with diffuse edema subcutaneous and mesenteric fat, bilateral pleural effusions, possible pulmonary edema, trace ascites. Densities within the gallbladder, probably reflecting tiny gallstones, although these are not identifiable on recent ultrasound. Gallbladder wall edema is probably a manifestation of anasarca, as recent hepatobiliary scan was negative for acute cholecystitis. Old ununited fracture deformities of the right pelvis. Bilateral chronic appearing hip dislocations Ultrasound of the abdomen : Gallbladder sludge. No definite stones. 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 -R/o HIT. Abx and protonix could be also be contributors. VDRF / ARDS HTN GERD History of auditory hallucination. Depression. Anemia. Rheumatoid arthritis. History of gastritis. PLAN: -Continue Amikacin #2 (abx d#6) for now while awaiting cx and flagyl #2 -Continue empiric Fluconazole #2 pending fungal serologies --monitor closely LFTs- if worsening, will d/c 09/23 SP Meropenem #5, PO Vanco #2 3/ SP tamiflu #10 09/19 SP vancomycin and Levaquin d# 18 -f/u repeat cx -f/u Asp ag, fungitell, CrAg, Cocci ab, fungal sp cx Monitor CBC.; Trend WBC Monitor BMP.; Trend LFTs Monitor chest x-ray -GI, heme onc f/u Discussed with RN Subjective Allergies: Coded Allergies: No Known Allergies (Verified , 11/18/08) Subjective Tm 99.5 Leukocytosis improving Fio2 85% repeat Bcx NTD Objective Vital Signs Last 24 Hour Vital Signs Date Time Temp Pulse Resp B/P (MAP) Pulse Ox O2 Delivery O2 Flow Rate FiO2 09/24/17 09:11 90 27 85 09/24/17 08:00 90 09/24/17 08:00 99.5 90 18 122/54 100 Mechanical Ventilator 85 99.5 09/24/17 08:00 80 09/24/17 07:29 98 31 85 09/24/17 07:00 87 18 104/56 100 Mechanical Ventilator 85 09/24/17 06:03 100 116/48 09/24/17 06:00 98 18 120/55 100 Mechanical Ventilator 85 09/24/17 05:30 88 28 85 09/24/17 05:00 94 18 116/48 100 Mechanical Ventilator 85 09/24/17 04:00 85 09/24/17 04:00 91 09/24/17 04:00 99.4 91 18 105/54 100 Mechanical Ventilator 85 99.4 09/24/17 03:30 92 22 85 09/24/17 03:00 94 19 119/56 100 Mechanical Ventilator 85 09/24/17 02:00 99 29 115/50 100 Mechanical Ventilator 85 09/24/17 01:30 101 34 85 09/24/17 01:00 104 32 124/49 100 Mechanical Ventilator 85 09/24/17 00:00 105 09/24/17 00:00 85 09/24/17 00:00 99.4 105 30 121/52 100 Mechanical Ventilator 85 99.4 09/23/17 23:10 102 27 85 3/13/18 23:00 104 25 112/50 100 Mechanical Ventilator 85 09/23/17 22:00 98 25 122/55 100 Mechanical Ventilator 85 09/23/17 21:45 96 124/52 09/23/17 21:23 94 26 85 09/23/17 21:00 96 25 124/52 100 Mechanical Ventilator 85 09/23/17 20:00 97 09/23/17 20:00 85 09/23/17 20:00 98.3 91 23 108/84 100 Mechanical Ventilator 85 98.3 09/23/17 19:30 95 22 85 09/23/17 19:00 98.2 91 22 118/61 100 Mechanical Ventilator 85 98.2 09/23/17 18:00 92 20 122/63 100 Mechanical Ventilator 85 09/23/17 17:03 65 25 85 09/23/17 17:00 98.3 95 21 123/59 100 Mechanical Ventilator 85 98.3 09/23/17 16:00 95 09/23/17 16:00 85 09/23/17 16:00 106 20 103/43 100 Mechanical Ventilator 85 09/23/17 15:29 101 28 85 09/23/17 15:00 101 20 112/45 100 Mechanical Ventilator 85 09/23/17 14:59 107 115/71 09/23/17 14:00 102 22 113/46 100 Mechanical Ventilator 85 09/23/17 13:08 96 28 85 09/23/17 13:00 98.2 95 20 106/48 100 Mechanical Ventilator 85 98.2 09/23/17 12:00 98.0 100 20 116/45 100 Mechanical Ventilator 85 98.0 09/23/17 12:00 85 09/23/17 12:00 101 09/23/17 11:29 111 24 85 09/23/17 11:00 106 20 135/48 100 Mechanical Ventilator 85 09/23/17 10:00 90 20 116/49 100 Mechanical Ventilator 85 Height (Feet): 5 Height (Inches): 0.00 Weight (Pounds): 105 Objective General Appearance: lethargic, thin EENT: normal ENT inspection Neck: non-tender, normal alignment, supple Cardiovascular: normal peripheral pulses, normal rate, regular rhythm, no gallop/murmur, no JVD Respiratory/Chest: Mechanical vent; respiratory distress, crackles/rales, rhonchi - bilaterally, expiratory wheezing Abdomen: normal bowel sounds, non tender, soft, no organomegaly, no mass Skin: normal pigmentation, warm/dry Microbiology Date/Time Source Procedure Growth Status 09/22/17 12:50 Blood Blood Culture - Preliminary NO GROWTH AFTER 24 HOURS Resulted 09/22/17 12:45 Blood Blood Culture - Preliminary NO GROWTH AFTER 24 HOURS Resulted 09/22/17 10:30 Sputum Gram Stain - Final Complete 09/22/17 10:30 Sputum Culture - Final Laila Albicans Complete 09/22/17 15:00 Stool Clostridium difficile Toxin Assay - Final Complete 09/22/17 10:30 Urine,Clean Catch Urine Culture - Preliminary YEAST Resulted Laboratory Tests Test 09/24/17 03:10 09/24/17 06:00 White Blood Count 19.7 K/UL (4.8-10.8) H Red Blood Count 2.81 M/UL (4.20-5.40) L Hemoglobin 8.9 G/DL (12.0-16.0) #L Hematocrit 27.1 % (37.0-47.0) L Mean Corpuscular Volume 96 FL (80-99) Mean Corpuscular Hemoglobin 31.8 PG (27.0-31.0) H Mean Corpuscular Hemoglobin Concent 33.1 G/DL (32.0-36.0) Red Cell Distribution Width 23.0 % (11.6-14.8) H Platelet Count 25 K/UL (150-450) L Mean Platelet Volume 10.1 FL (6.5-10.1) Neutrophils (%) (Auto) % (45.0-75.0) Lymphocytes (%) (Auto) % (20.0-45.0) Monocytes (%) (Auto) % (1.0-10.0) Eosinophils (%) (Auto) % (0.0-3.0) Basophils (%) (Auto) % (0.0-2.0) Differential Total Cells Counted 100 Neutrophils % (Manual) 83 % (45-75) H Lymphocytes % (Manual) 5 % (20-45) L Monocytes % (Manual) 12 % (1-10) H Eosinophils % (Manual) 0 % (0-3) Basophils % (Manual) 0 % (0-2) Band Neutrophils 0 % (0-8) Nucleated Red Blood Cells 5 /100 WBC Platelet Estimate Decreased L Platelet Morphology Normal Polychromasia 2+ Hypochromasia 1+ Anisocytosis 2+ Prothrombin Time 11.3 SEC (9.30-11.50) Prothromb Time International Ratio 1.1 (0.9-1.1) Sodium Level 155 MMOL/L (136-145) H Potassium Level 3.7 MMOL/L (3.5-5.1) Chloride Level 119 MMOL/L (98-107) H Carbon Dioxide Level 26 MMOL/L (21-32) Anion Gap 10 mmol/L (5-15) Blood Urea Nitrogen 39 mg/dL (7-18) H Creatinine 1.0 MG/DL (0.55-1.30) Estimat Glomerular Filtration Rate mL/min (>60) Glucose Level 144 MG/DL (74-106) H Calcium Level 8.1 MG/DL (8.5-10.1) L Phosphorus Level 3.9 MG/DL (2.5-4.9) Magnesium Level 2.0 MG/DL (1.8-2.4) Total Bilirubin 1.1 MG/DL (0.2-1.0) H Direct Bilirubin 0.5 MG/DL (0.0-0.3) H Aspartate Amino Transf (AST/SGOT) 55 U/L (15-37) H Alanine Aminotransferase (ALT/SGPT) 28 U/L (12-78) Alkaline Phosphatase 350 U/L (46-116) H Total Protein 5.6 G/DL (6.4-8.2) L Albumin 1.6 G/DL (3.4-5.0) L Globulin 4.0 g/dL Albumin/Globulin Ratio 0.4 (1.0-2.7) L Random Amikacin Level Pending Cryptococcus Antigen Pending Urine Legionella Antigen Pending Current Medications Medications (Trade) Dose Ordered Sig/Hermes Route PRN Reason Start Time Stop Time Status Last Admin Dose Admin Acetaminophen (Tylenol) 650 mg EVERY 6 HOURS PRN NG Fever/Headache/Mild Pain 09/13/17 20:45 10/13/17 20:44 09/21/17 06:04 Amikacin Protocol (Amikacin pharmacy to dose) 1 ea DAILY PRN MISC Per rx protocol 09/23/17 11:45 10/23/17 11:44 Clonidine HCl (Catapres Tab) 0.1 mg Q4H PRN ORAL SBP>160 UNRELIEVED BY HYDRALAZ 09/16/17 16:45 10/15/17 16:59 Dextrose (Dextrose 50%) STAT PRN IV Hypoglycemia 09/13/17 15:00 10/13/17 14:59 Dextrose/ Electrolytes 1,000 ml @ 125 mls/hr Q8H IV 09/22/17 20:30 10/22/17 20:29 09/24/17 03:06 Diltiazem HCl (Cardizem) 30 mg EVERY 8 HOURS NG 09/18/17 22:00 10/18/17 21:59 09/24/17 06:03 Fluconazole (Diflucan) 200 mg DAILY ORAL 09/23/17 12:30 09/30/17 12:29 09/24/17 09:21 Insulin Aspart (NovoLOG) EVERY 6 HOURS SUBQ 09/17/17 12:00 10/17/17 11:59 09/24/17 06:07 Metronidazole (Flagyl) 500 mg Q8HR ORAL 09/23/17 14:00 09/30/17 13:59 09/24/17 06:03 Polyethylene Glycol (Miralax) 17 gm BEDTIME ORAL 09/14/17 21:00 10/14/17 20:59 09/18/17 20:42 Madelyn Frey M.D. Sep 24, 2017 09:37
--- NOTE | 2017-09-24 09:48 | General Progress Note ---
Assessment/Plan Assessment/Plan 1. Thrombocytopenia, severe and progressive, acute onset, likely secondary to underlying infection, aspiration pneumonia versus HIT. --> Antibody test is pending. Heparin has been discontinued on 09/18/2017. --> Duplex of the lower extremities is negative, therefore less likely HIT and other causes are more likely such as underlying infection. 2. Anemia due to underlying chronic disease. Continue to closely monitor. --> Hemoglobin goal is above 7. --> S/P PRBC. No acute events. --> Anemia workup has been reviewed at this point. --> Transfuse if hemoglobin less than 7. 3. Community-acquired pneumonia versus hospital-acquired. --> The patient on broad-spectrum antibiotics. --> Improved. --> Urine culture growing E. coli. Continue to closely monitor. 4. Transaminitis. She has been seen by GI Service. Continue to closely monitor. 5. Low-grade fever. Closely observe. 6. Leukocytosis likely related to underlying pneumonia infection. --> On abx. --> Wbc count improving. Subjective Date patient seen: Sep 23, 2017 Constitutional: Denies: no symptoms, chills, diaphoresis, fever, malaise, weakness, other HEENT: Denies: no symptoms, eye pain, blurred vision, tearing, double vision, ear pain, ear discharge, nose pain, nose congestion, throat pain, throat swelling, mouth pain, mouth swelling, other Cardiovascular: Denies: no symptoms, chest pain, edema, irregular heart rate, lightheadedness, palpitations, syncope, other Respiratory: Denies: no symptoms, cough, orthopnea, shortness of breath, SOB with excertion, SOB at rest, sputum, stridor, wheezing, other Gastrointestinal/Abdominal: Denies: no symptoms, abdomen distended, abdominal pain, black stools, tarry stools, blood in stool, constipated, diarrhea, difficulty swallowing, nausea, poor appetite, poor fluid intake, rectal bleeding , vomiting, other Genitourinary: Denies: no symptoms, burning, discharge, frequency, flank pain, hematuria, incontinence, pain, urgency, other 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: Denies: no symptoms, anxiety, depressed, emotional problems, headache, numbness, paresthesia, pre-existing deficit, seizure, tingling, tremors, weakness, other Hematologic/Lymphatic: Reports: anemia Allergies: Coded Allergies: No Known Allergies (Verified , 11/18/08) Subjective On antibiotics. S/P blood transfusion. No acute events. Objective Last 24 Hour Vital Signs Date Time Temp Pulse Resp B/P (MAP) Pulse Ox O2 Delivery O2 Flow Rate FiO2 09/24/17 09:11 90 27 85 09/24/17 08:00 90 09/24/17 08:00 99.5 90 18 122/54 100 Mechanical Ventilator 85 99.5 09/24/17 08:00 80 09/24/17 07:29 98 31 85 09/24/17 07:00 87 18 104/56 100 Mechanical Ventilator 85 09/24/17 06:03 100 116/48 09/24/17 06:00 98 18 120/55 100 Mechanical Ventilator 85 09/24/17 05:30 88 28 85 09/24/17 05:00 94 18 116/48 100 Mechanical Ventilator 85 09/24/17 04:00 85 09/24/17 04:00 91 09/24/17 04:00 99.4 91 18 105/54 100 Mechanical Ventilator 85 99.4 09/24/17 03:30 92 22 85 09/24/17 03:00 94 19 119/56 100 Mechanical Ventilator 85 09/24/17 02:00 99 29 115/50 100 Mechanical Ventilator 85 09/24/17 01:30 101 34 85 09/24/17 01:00 104 32 124/49 100 Mechanical Ventilator 85 09/24/17 00:00 105 09/24/17 00:00 85 09/24/17 00:00 99.4 105 30 121/52 100 Mechanical Ventilator 85 99.4 09/23/17 23:10 102 27 85 09/23/17 23:00 104 25 112/50 100 Mechanical Ventilator 85 09/23/17 22:00 98 25 122/55 100 Mechanical Ventilator 85 09/23/17 21:45 96 124/52 09/23/17 21:23 94 26 85 09/23/17 21:00 96 25 124/52 100 Mechanical Ventilator 85 09/23/17 20:00 97 09/23/17 20:00 85 09/23/17 20:00 98.3 91 23 108/84 100 Mechanical Ventilator 85 98.3 09/23/17 19:30 95 22 85 09/23/17 19:00 98.2 91 22 118/61 100 Mechanical Ventilator 85 98.2 09/23/17 18:00 92 20 122/63 100 Mechanical Ventilator 85 09/23/17 17:03 65 25 85 09/23/17 17:00 98.3 95 21 123/59 100 Mechanical Ventilator 85 98.3 09/23/17 16:00 95 09/23/17 16:00 85 09/23/17 16:00 106 20 103/43 100 Mechanical Ventilator 85 09/23/17 15:29 101 28 85 09/23/17 15:00 101 20 112/45 100 Mechanical Ventilator 85 09/23/17 14:59 107 115/71 09/23/17 14:00 102 22 113/46 100 Mechanical Ventilator 85 09/23/17 13:08 96 28 85 09/23/17 13:00 98.2 95 20 106/48 100 Mechanical Ventilator 85 98.2 09/23/17 12:00 98.0 100 20 116/45 100 Mechanical Ventilator 85 98.0 09/23/17 12:00 85 09/23/17 12:00 101 09/23/17 11:29 111 24 85 09/23/17 11:00 106 20 135/48 100 Mechanical Ventilator 85 09/23/17 10:00 90 20 116/49 100 Mechanical Ventilator 85 Intake and Output 09/23/17 09/24/17 19:00 07:00 Intake Total 1629 ml 1593 ml Output Total 575 ml 610 ml Balance 1054 ml 983 ml IV Total 1125 ml 1000 ml Blood Product 504 ml 593 ml Output Urine Total 575 ml 610 ml # Bowel Movements 4 Laboratory Tests 09/24/17 03:10: White Blood Count 19.7H, Red Blood Count 2.81L, Hemoglobin 8.9#L, Hematocrit 27.1L, Mean Corpuscular Volume 96, Mean Corpuscular Hemoglobin 31.8H, Mean Corpuscular Hemoglobin Concent 33.1, Red Cell Distribution Width 23.0H, Platelet Count 25L, Mean Platelet Volume 10.1, Neutrophils (%) (Auto) , Lymphocytes (%) (Auto) , Monocytes (%) (Auto) , Eosinophils (%) (Auto) , Basophils (%) (Auto) , Differential Total Cells Counted 100, Neutrophils % ( Manual) 83H, Lymphocytes % (Manual) 5L, Monocytes % (Manual) 12H, Eosinophils % (Manual) 0, Basophils % (Manual) 0, Band Neutrophils 0, Nucleated Red Blood Cells 5, Platelet Estimate DecreasedL, Platelet Morphology Normal, Polychromasia 2+, Hypochromasia 1+, Anisocytosis 2+, Prothrombin Time 11.3, Prothromb Time International Ratio 1.1, Sodium Level 155H, Potassium Level 3.7, Chloride Level 119H, Carbon Dioxide Level 26, Anion Gap 10, Blood Urea Nitrogen 39H, Creatinine 1.0, Estimat Glomerular Filtration Rate , Glucose Level 144H, Calcium Level 8.1L, Phosphorus Level 3.9, Magnesium Level 2.0, Total Bilirubin 1.1H, Direct Bilirubin 0.5H, Aspartate Amino Transf (AST/SGOT) 55H, Alanine Aminotransferase (ALT/SGPT) 28, Alkaline Phosphatase 350H, Total Protein 5.6L, Albumin 1.6L, Globulin 4.0, Albumin/Globulin Ratio 0.4L, Random Amikacin Level [ Pending] 09/24/17 06:00: Cryptococcus Antigen [Pending], Urine Legionella Antigen [Pending] Height (Feet): 5 Height (Inches): 0.00 Weight (Pounds): 105 General Appearance: confused Respiratory/Chest: decreased breath sounds Abdomen: soft Edema: trace edema Johnny Sinha Sep 24, 2017 09:48
[2017-09-24] MEDS ORDERED: Tubing IV Secondary IV ONE ×4 (10:49→14:57)
[2017-09-24] MEDS ORDERED: NS 275ml ONE ×3 (10:49→14:57)
[2017-09-24] MEDS ORDERED: D5W 275ml ONE (10:49)
--- NOTE | 2017-09-24 11:17 | Nephrology Progress Note ---
Assessment/Plan Problem List: (1) ARDS (adult respiratory distress syndrome) (2) Electrolyte imbalance (3) Thrombocytopenia Assessment Na 155 Platelets [id number] (1) ARDS (adult respiratory distress syndrome) (2) Aspiration pneumonia (3) Protein-calorie malnutrition, severe (4) Diabetes mellitus (5) Anemia , aplastic by history (6) DM (7) UTI (8) Electrolyte imbalance (9) HTN (10) Depression (11) RA . Plan doing poorly water via NGT Adjust BP meds K and Phos supplement as needed Monitor renal parameters and urine output avoid nephrotoxics per orders discussed with RN Left ventricular ejection fraction estimated to be 55 %. Subjective ROS Limited/Unobtainable: Yes Objective Objective Last 24 Hour Vital Signs Date Time Temp Pulse Resp B/P (MAP) Pulse Ox O2 Delivery O2 Flow Rate FiO2 09/24/17 10:31 99 26 75 09/24/17 10:00 93 16 115/57 100 Mechanical Ventilator 85 09/24/17 09:11 90 27 85 09/24/17 09:00 94 25 113/48 100 Mechanical Ventilator 85 09/24/17 08:00 90 09/24/17 08:00 99.5 90 18 122/54 100 Mechanical Ventilator 85 99.5 09/24/17 08:00 80 09/24/17 07:29 98 31 85 09/24/17 07:00 87 18 104/56 100 Mechanical Ventilator 85 09/24/17 06:03 100 116/48 09/24/17 06:00 98 18 120/55 100 Mechanical Ventilator 85 09/24/17 05:30 88 28 85 09/24/17 05:00 94 18 116/48 100 Mechanical Ventilator 85 09/24/17 04:00 85 09/24/17 04:00 91 09/24/17 04:00 99.4 91 18 105/54 100 Mechanical Ventilator 85 99.4 09/24/17 03:30 92 22 85 09/24/17 03:00 94 19 119/56 100 Mechanical Ventilator 85 09/24/17 02:00 99 29 115/50 100 Mechanical Ventilator 85 09/24/17 01:30 101 34 85 09/24/17 01:00 104 32 124/49 100 Mechanical Ventilator 85 09/24/17 00:00 105 09/24/17 00:00 85 09/24/17 00:00 99.4 105 30 121/52 100 Mechanical Ventilator 85 99.4 09/23/17 23:10 102 27 85 09/23/17 23:00 104 25 112/50 100 Mechanical Ventilator 85 09/23/17 22:00 98 25 122/55 100 Mechanical Ventilator 85 09/23/17 21:45 96 124/52 09/23/17 21:23 94 26 85 09/23/17 21:00 96 25 124/52 100 Mechanical Ventilator 85 09/23/17 20:00 97 09/23/17 20:00 85 09/23/17 20:00 98.3 91 23 108/84 100 Mechanical Ventilator 85 98.3 09/23/17 19:30 95 22 85 09/23/17 19:00 98.2 91 22 118/61 100 Mechanical Ventilator 85 98.2 09/23/17 18:00 92 20 122/63 100 Mechanical Ventilator 85 09/23/17 17:03 65 25 85 09/23/17 17:00 98.3 95 21 123/59 100 Mechanical Ventilator 85 98.3 09/23/17 16:00 95 09/23/17 16:00 85 09/23/17 16:00 106 20 103/43 100 Mechanical Ventilator 85 09/23/17 15:29 101 28 85 09/23/17 15:00 101 20 112/45 100 Mechanical Ventilator 85 09/23/17 14:59 107 115/71 09/23/17 14:00 102 22 113/46 100 Mechanical Ventilator 85 09/23/17 13:08 96 28 85 09/23/17 13:00 98.2 95 20 106/48 100 Mechanical Ventilator 85 98.2 09/23/17 12:00 98.0 100 20 116/45 100 Mechanical Ventilator 85 98.0 09/23/17 12:00 85 09/23/17 12:00 101 09/23/17 11:29 111 24 85 Intake and Output 09/23/17 09/24/17 19:00 07:00 Intake Total 1629 ml 1593 ml Output Total 575 ml 610 ml Balance 1054 ml 983 ml IV Total 1125 ml 1000 ml Blood Product 504 ml 593 ml Output Urine Total 575 ml 610 ml # Bowel Movements 4 Laboratory Tests 09/24/17 03:10: White Blood Count 19.7H, Red Blood Count 2.81L, Hemoglobin 8.9#L, Hematocrit 27.1L, Mean Corpuscular Volume 96, Mean Corpuscular Hemoglobin 31.8H, Mean Corpuscular Hemoglobin Concent 33.1, Red Cell Distribution Width 23.0H, Platelet Count 25L, Mean Platelet Volume 10.1, Neutrophils (%) (Auto) , Lymphocytes (%) (Auto) , Monocytes (%) (Auto) , Eosinophils (%) (Auto) , Basophils (%) (Auto) , Differential Total Cells Counted 100, Neutrophils % ( Manual) 83H, Lymphocytes % (Manual) 5L, Monocytes % (Manual) 12H, Eosinophils % (Manual) 0, Basophils % (Manual) 0, Band Neutrophils 0, Nucleated Red Blood Cells 5, Platelet Estimate DecreasedL, Platelet Morphology Normal, Polychromasia 2+, Hypochromasia 1+, Anisocytosis 2+, Prothrombin Time 11.3, Prothromb Time International Ratio 1.1, Sodium Level 155H, Potassium Level 3.7, Chloride Level 119H, Carbon Dioxide Level 26, Anion Gap 10, Blood Urea Nitrogen 39H, Creatinine 1.0, Estimat Glomerular Filtration Rate , Glucose Level 144H, Calcium Level 8.1L, Phosphorus Level 3.9, Magnesium Level 2.0, Total Bilirubin 1.1H, Direct Bilirubin 0.5H, Aspartate Amino Transf (AST/SGOT) 55H, Alanine Aminotransferase (ALT/SGPT) 28, Alkaline Phosphatase 350H, Total Protein 5.6L, Albumin 1.6L, Globulin 4.0, Albumin/Globulin Ratio 0.4L, Random Amikacin Level [ Pending] 09/24/17 06:00: Cryptococcus Antigen [Pending], Urine Legionella Antigen [Pending] 09/24/17 09:40: Coccidioides Antibody (Comp Fix) [Pending] Height (Feet): 5 Height (Inches): 0.00 Weight (Pounds): 105 General Appearance: no apparent distress Objective no change YAEL HANSEN Sep 24, 2017 11:17
--- NOTE | 2017-09-24 13:21 | Wound Care Consultation ---
Wound Assessment Wound Assessment #1: Wound Present on Admission: No New Wound: Yes Status Change of Wound: No Wound Location Body Site: perineal area Wound Type: chemical burn Gray Test: Does not Gray Percent of Wound Milburn/Red: 100 Wound Drainage Amount: None Wound Drainage Odor: None/Absent Tissue Surrounding Wound: Erythemic Wound General Appearance: Reddened Wound Assessment #2: Wound Number: 2 Wound Present on Admission: No New Wound: Yes Status Change of Wound: No Wound Location Body Site Modif: left, plantar Wound Location Body Site: metatarsal head - 1st Wound Type: scab Gray Test: Does not Gray Wound Thickness: Full Thickness Wound Length: 0.5 Wound Width: 0.5 Wound Depth: utd Percent of Wound Bed Yellow/Wh: 100 - dry Wound Drainage Amount: None Wound Drainage Odor: None/Absent Tissue Surrounding Wound: Erythemic Wound General Appearance: Reddened Wound Comment #1 Chemical burn on perineal area #2 Left plantar 1st metatarsal head dry scab Recommendation -Local wound care per protocol -Keep clean and dry -Optimize nutrition -Heel protector on both heels -Offload both heels -Low air loss mattress -Turn and reposition -Assess and f/u accordingly for any changes TANK FRANCES RN Sep 24, 2017 13:21
--- NOTE | 2017-09-24 13:43 | Internal Med Progress Note ---
Subjective Date of Service: Sep 24, 2017 Physician Name Sina Bowens Attending Physician Jesus Barahona MD Current Medications Medications (Trade) Dose Ordered Sig/Hermes Route PRN Reason Start Time Stop Time Status Last Admin Dose Admin Acetaminophen (Tylenol) 650 mg EVERY 6 HOURS PRN NG Fever/Headache/Mild Pain 09/13/17 20:45 10/13/17 20:44 09/21/17 06:04 Amikacin Protocol (Amikacin pharmacy to dose) 1 ea DAILY PRN MISC Per rx protocol 09/23/17 11:45 10/23/17 11:44 Clonidine HCl (Catapres Tab) 0.1 mg Q4H PRN ORAL SBP>160 UNRELIEVED BY HYDRALAZ 09/16/17 16:45 10/15/17 16:59 Dextrose (Dextrose 50%) STAT PRN IV Hypoglycemia 09/13/17 15:00 10/13/17 14:59 Dextrose/ Electrolytes 1,000 ml @ 125 mls/hr Q8H IV 09/22/17 20:30 10/22/17 20:29 09/24/17 12:38 Diltiazem HCl (Cardizem) 30 mg EVERY 8 HOURS NG 09/18/17 22:00 10/18/17 21:59 09/24/17 06:03 Fluconazole (Diflucan) 200 mg DAILY ORAL 09/23/17 12:30 09/30/17 12:29 09/24/17 09:21 Insulin Aspart (NovoLOG) EVERY 6 HOURS SUBQ 09/17/17 12:00 10/17/17 11:59 09/24/17 12:39 Metronidazole (Flagyl) 500 mg Q8HR ORAL 09/23/17 14:00 09/30/17 13:59 09/24/17 06:03 Polyethylene Glycol (Miralax) 17 gm BEDTIME ORAL 09/14/17 21:00 10/14/17 20:59 09/18/17 20:42 Allergies: Coded Allergies: No Known Allergies (Verified , 11/18/08) ROS Limited/Unobtainable: Yes Subjective 76 YO F admitted with Shortness of breath, now respiratory failure. Intubated and sedated. Cover for Internal Med-Dr. Barahona. ICU Objective Last Vital Signs Date Time Temp Pulse Resp B/P (MAP) Pulse Ox O2 Delivery O2 Flow Rate FiO2 09/24/17 13:00 105 18 127/58 95 Mechanical Ventilator 65 09/24/17 12:00 98.9 98.9 Laboratory Tests Test 09/24/17 03:10 09/24/17 06:00 09/24/17 09:40 White Blood Count 19.7 K/UL (4.8-10.8) H Red Blood Count 2.81 M/UL (4.20-5.40) L Hemoglobin 8.9 G/DL (12.0-16.0) #L Hematocrit 27.1 % (37.0-47.0) L Mean Corpuscular Volume 96 FL (80-99) Mean Corpuscular Hemoglobin 31.8 PG (27.0-31.0) H Mean Corpuscular Hemoglobin Concent 33.1 G/DL (32.0-36.0) Red Cell Distribution Width 23.0 % (11.6-14.8) H Platelet Count 25 K/UL (150-450) L Mean Platelet Volume 10.1 FL (6.5-10.1) Neutrophils (%) (Auto) % (45.0-75.0) Lymphocytes (%) (Auto) % (20.0-45.0) Monocytes (%) (Auto) % (1.0-10.0) Eosinophils (%) (Auto) % (0.0-3.0) Basophils (%) (Auto) % (0.0-2.0) Differential Total Cells Counted 100 Neutrophils % (Manual) 83 % (45-75) H Lymphocytes % (Manual) 5 % (20-45) L Monocytes % (Manual) 12 % (1-10) H Eosinophils % (Manual) 0 % (0-3) Basophils % (Manual) 0 % (0-2) Band Neutrophils 0 % (0-8) Nucleated Red Blood Cells 5 /100 WBC Platelet Estimate Decreased L Platelet Morphology Normal Polychromasia 2+ Hypochromasia 1+ Anisocytosis 2+ Prothrombin Time 11.3 SEC (9.30-11.50) Prothromb Time International Ratio 1.1 (0.9-1.1) Sodium Level 155 MMOL/L (136-145) H Potassium Level 3.7 MMOL/L (3.5-5.1) Chloride Level 119 MMOL/L (98-107) H Carbon Dioxide Level 26 MMOL/L (21-32) Anion Gap 10 mmol/L (5-15) Blood Urea Nitrogen 39 mg/dL (7-18) H Creatinine 1.0 MG/DL (0.55-1.30) Estimat Glomerular Filtration Rate mL/min (>60) Glucose Level 144 MG/DL (74-106) H Calcium Level 8.1 MG/DL (8.5-10.1) L Phosphorus Level 3.9 MG/DL (2.5-4.9) Magnesium Level 2.0 MG/DL (1.8-2.4) Total Bilirubin 1.1 MG/DL (0.2-1.0) H Direct Bilirubin 0.5 MG/DL (0.0-0.3) H Aspartate Amino Transf (AST/SGOT) 55 U/L (15-37) H Alanine Aminotransferase (ALT/SGPT) 28 U/L (12-78) Alkaline Phosphatase 350 U/L (46-116) H Total Protein 5.6 G/DL (6.4-8.2) L Albumin 1.6 G/DL (3.4-5.0) L Globulin 4.0 g/dL Albumin/Globulin Ratio 0.4 (1.0-2.7) L Random Amikacin Level 16.4 MG/L Cryptococcus Antigen Pending Urine Legionella Antigen Pending Coccidioides Antibody (Comp Fix) Pending Aspergillus galactomannan Antigen Pending Microbiology Date/Time Source Procedure Growth Status 09/22/17 12:50 Blood Blood Culture - Preliminary NO GROWTH AFTER 24 HOURS Resulted 09/22/17 12:45 Blood Blood Culture - Preliminary NO GROWTH AFTER 24 HOURS Resulted 09/22/17 10:30 Sputum Gram Stain - Final Complete 09/22/17 10:30 Sputum Culture - Final Laila Albicans Complete 09/22/17 15:00 Stool Clostridium difficile Toxin Assay - Final Complete 09/22/17 10:30 Urine,Clean Catch Urine Culture - Preliminary YEAST Resulted Intake and Output 09/23/17 09/24/17 19:00 07:00 Intake Total 1629 ml 1718 ml Output Total 575 ml 610 ml Balance 1054 ml 1108 ml IV Total 1125 ml 1125 ml Blood Product 504 ml 593 ml Output Urine Total 575 ml 610 ml # Bowel Movements 4 Objective General Appearance: lethargic, thin EENT: normal ENT inspection Neck: non-tender, normal alignment, supple Cardiovascular: normal peripheral pulses, normal rate, regular rhythm, no gallop/murmur, no JVD Respiratory/Chest: Mechanical vent; respiratory distress, crackles/rales, rhonchi - bilaterally, expiratory wheezing Abdomen: normal bowel sounds, non tender, soft, no organomegaly, no mass Skin: normal pigmentation, warm/dry Assessment/Plan Problem List: (1) HTN (hypertension) Assessment & Plan: Currently hypotensive. (2) Arthritis, rheumatoid (3) Parkinsons disease (4) Aplastic anemia (5) GERD (gastroesophageal reflux disease) (6) Respiratory failure Assessment & Plan: Cont vent per pulmonary (7) Pneumonia (8) Dyspnea (9) Sepsis Assessment & Plan: Blood culture neg. Continue Amikacin and fluconazole per ID (10) ARDS (adult respiratory distress syndrome) Assessment & Plan: See pulmonary note (11) UTI (urinary tract infection) Assessment & Plan: E.Coli. Continue levaquin (12) Anemia Assessment & Plan: S/P Transfusion 2 units PRBC (13) Diabetes mellitus, type II Assessment & Plan: Continue novolog sliding scale (14) Leukocytosis Assessment & Plan: Worsening. See ID note. Start amikacin and fluconazole (15) Thrombocytopenia Status: not improved SINA BOWENS Sep 24, 2017 13:43
[2017-09-24] MEDS ORDERED: Sterile Water For Irrig 2000ml IRRIG ONE ×2 (14:23→15:03)
[2017-09-24] MEDS ORDERED: Tubing Blood Filter IV ONE ×2 (14:23→14:57)
[2017-09-24] MEDS ORDERED: D5NS 1000ml IV ONE (14:57)
[2017-09-24] MEDS ORDERED: Sterile Water Irrig 1000ml IRRIG ONE (14:57)
[2017-09-24] MEDS: Acetaminophen 650mg/20.3ml NG PRN (16:42)
--- NOTE | 2017-09-24 16:46 | Cardiology Report ---
APPROVED REPORT EKG Measurement Heart [id number] Normal sinus rhythm Left bundle branch block Abnormal ECG
[2017-09-24] MEDS: Miralax 17gm pkt ORAL SCH (21:00)
--- NOTE | 2017-09-24 22:51 | General Progress Note ---
Assessment/Plan Problem List: (1) Arthritis, rheumatoid ICD Codes: M06.9 - Rheumatoid arthritis, unspecified SNOMED: 82695800 (2) Aspiration pneumonia ICD Codes: J69.0 - Pneumonitis due to inhalation of food and vomit SNOMED: 243156190 (3) Diabetes mellitus ICD Codes: E11.9 - Type 2 diabetes mellitus without complications SNOMED: 52420530 (4) ARDS (adult respiratory distress syndrome) ICD Codes: J80 - Acute respiratory distress syndrome SNOMED: 81005447 (5) Transaminitis ICD Codes: R74.0 - Nonspecific elevation of levels of transaminase and lactic acid dehydrogenase [LDH] SNOMED: 475419335, 511870461 (6) Dyspnea ICD Codes: R06.00 - Dyspnea, unspecified SNOMED: 040388579 (7) Parkinsons disease ICD Codes: G20 - Parkinson's disease SNOMED: 00589733 (8) Sepsis ICD Codes: A41.9 - Sepsis, unspecified organism SNOMED: 49394285 (9) GERD (gastroesophageal reflux disease) ICD Codes: K21.9 - Gastro-esophageal reflux disease without esophagitis SNOMED: 276767615 (10) Aplastic anemia ICD Codes: D61.9 - Aplastic anemia, unspecified SNOMED: 374978713 (11) Pneumonia ICD Codes: J18.9 - Pneumonia, unspecified organism SNOMED: 476958600 (12) HTN (hypertension) ICD Codes: I10 - Essential (primary) hypertension SNOMED: 36027744 Assessment/Plan Encephalopathy, agitation, psychotic disorder. -cont current meds -ativan prn Subjective Date patient seen: Sep 24, 2017 Allergies: Coded Allergies: No Known Allergies (Verified , 11/18/08) Objective Last 24 Hour Vital Signs Date Time Temp Pulse Resp B/P (MAP) Pulse Ox O2 Delivery O2 Flow Rate FiO2 09/24/17 22:30 101 104/47 09/24/17 20:57 104 34 65 09/24/17 19:00 98.4 98 25 104/49 99 Mechanical Ventilator 65 98.4 09/24/17 18:50 99 28 65 09/24/17 18:00 97 25 107/55 99 Mechanical Ventilator 65 09/24/17 17:12 98.4 09/24/17 17:00 101 26 110/50 98 Mechanical Ventilator 65 3/14/18 16:57 110 30 65 18 16:42 100.0 18 16:00 100.0 110 25 129/57 97 Mechanical Ventilator 65 100.0 18 16:00 65 18 16:00 110 18 15:00 110 26 100/63 98 Mechanical Ventilator 65 09/24/18 14:57 112 32 65 18 14:32 108 128/64 09/24/17 14:00 108 18 128/64 98 Mechanical Ventilator 65 09/24/17 13:00 105 18 127/58 95 Mechanical Ventilator 65 09/24/17 12:32 103 30 65 09/24/17 12:00 98.9 96 16 119/63 98 Mechanical Ventilator 75 98.9 09/24/17 12:00 98 09/24/17 12:00 75 09/24/17 11:00 100 16 113/51 98 Mechanical Ventilator 75 09/24/17 10:31 99 26 75 09/24/17 10:00 93 16 115/57 100 Mechanical Ventilator 85 09/24/17 09:11 90 27 85 09/24/17 09:00 94 25 113/48 100 Mechanical Ventilator 85 09/24/17 08:00 90 09/24/17 08:00 99.5 90 18 122/54 100 Mechanical Ventilator 85 99.5 09/24/17 08:00 80 09/24/17 07:29 98 31 85 09/24/17 07:00 87 18 104/56 100 Mechanical Ventilator 85 09/24/17 06:03 100 116/48 09/24/17 06:00 98 18 120/55 100 Mechanical Ventilator 85 09/24/17 05:30 88 28 85 18 05:00 94 18 116/48 100 Mechanical Ventilator 85 09/24/17 04:00 85 09/24/17 04:00 91 09/24/17 04:00 99.4 91 18 105/54 100 Mechanical Ventilator 85 99.4 09/24/17 03:30 92 22 85 18 03:00 94 19 119/56 100 Mechanical Ventilator 85 09/24/17 02:00 99 29 115/50 100 Mechanical Ventilator 85 09/24/17 01:30 101 34 85 18 01:00 104 32 124/49 100 Mechanical Ventilator 85 09/24/17 00:00 105 09/24/17 00:00 85 09/24/17 00:00 99.4 105 30 121/52 100 Mechanical Ventilator 85 99.4 09/23/17 23:10 102 27 85 09/23/17 23:00 104 25 112/50 100 Mechanical Ventilator 85 Intake and Output 09/23/17 09/24/17 19:00 07:00 Intake Total 1629 ml 1718 ml Output Total 575 ml 610 ml Balance 1054 ml 1108 ml IV Total 1125 ml 1125 ml Blood Product 504 ml 593 ml Output Urine Total 575 ml 610 ml # Bowel Movements 4 Laboratory Tests 09/24/17 03:10: White Blood Count 19.7H, Red Blood Count 2.81L, Hemoglobin 8.9#L, Hematocrit 27.1L, Mean Corpuscular Volume 96, Mean Corpuscular Hemoglobin 31.8H, Mean Corpuscular Hemoglobin Concent 33.1, Red Cell Distribution Width 23.0H, Platelet Count 25L, Mean Platelet Volume 10.1, Neutrophils (%) (Auto) , Lymphocytes (%) (Auto) , Monocytes (%) (Auto) , Eosinophils (%) (Auto) , Basophils (%) (Auto) , Differential Total Cells Counted 100, Neutrophils % ( Manual) 83H, Lymphocytes % (Manual) 5L, Monocytes % (Manual) 12H, Eosinophils % (Manual) 0, Basophils % (Manual) 0, Band Neutrophils 0, Nucleated Red Blood Cells 5, Platelet Estimate DecreasedL, Platelet Morphology Normal, Polychromasia 2+, Hypochromasia 1+, Anisocytosis 2+, Prothrombin Time 11.3, Prothromb Time International Ratio 1.1, Sodium Level 155H, Potassium Level 3.7, Chloride Level 119H, Carbon Dioxide Level 26, Anion Gap 10, Blood Urea Nitrogen 39H, Creatinine 1.0, Estimat Glomerular Filtration Rate , Glucose Level 144H, Calcium Level 8.1L, Phosphorus Level 3.9, Magnesium Level 2.0, Total Bilirubin 1.1H, Direct Bilirubin 0.5H, Aspartate Amino Transf (AST/SGOT) 55H, Alanine Aminotransferase (ALT/SGPT) 28, Alkaline Phosphatase 350H, Total Protein 5.6L, Albumin 1.6L, Globulin 4.0, Albumin/Globulin Ratio 0.4L, Random Amikacin Level 16.4 09/24/17 06:00: Cryptococcus Antigen [Pending], Urine Legionella Antigen [Pending] 09/24/17 09:40: Coccidioides Antibody (Comp Fix) [Pending], Aspergillus galactomannan Antigen [ Pending] Height (Feet): 5 Height (Inches): 0.00 Weight (Pounds): 105 Dary Nixon M.D. Sep 24, 2017 22:51
--- NOTE | 2017-09-24 22:51 | General Progress Note ---
Assessment/Plan Problem List: (1) Arthritis, rheumatoid ICD Codes: M06.9 - Rheumatoid arthritis, unspecified SNOMED: 90554730 (2) Aspiration pneumonia ICD Codes: J69.0 - Pneumonitis due to inhalation of food and vomit SNOMED: 514471487 (3) Diabetes mellitus ICD Codes: E11.9 - Type 2 diabetes mellitus without complications SNOMED: 85794766 (4) ARDS (adult respiratory distress syndrome) ICD Codes: J80 - Acute respiratory distress syndrome SNOMED: 50858236 (5) Transaminitis ICD Codes: R74.0 - Nonspecific elevation of levels of transaminase and lactic acid dehydrogenase [LDH] SNOMED: 154524111, 137340220 (6) Dyspnea ICD Codes: R06.00 - Dyspnea, unspecified SNOMED: 750871070 (7) Parkinsons disease ICD Codes: G20 - Parkinson's disease SNOMED: 78874850 (8) Sepsis ICD Codes: A41.9 - Sepsis, unspecified organism SNOMED: 65417625 (9) GERD (gastroesophageal reflux disease) ICD Codes: K21.9 - Gastro-esophageal reflux disease without esophagitis SNOMED: 716597232 (10) Aplastic anemia ICD Codes: D61.9 - Aplastic anemia, unspecified SNOMED: 801107383 (11) Pneumonia ICD Codes: J18.9 - Pneumonia, unspecified organism SNOMED: 117645056 (12) HTN (hypertension) ICD Codes: I10 - Essential (primary) hypertension SNOMED: 50260808 Assessment/Plan Encephalopathy, agitation, psychotic disorder. -cont current meds -ativan prn Subjective Date patient seen: Sep 23, 2017 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: Reports: anxiety Allergies: Coded Allergies: No Known Allergies (Verified , 11/18/08) Objective Last 24 Hour Vital Signs Date Time Temp Pulse Resp B/P (MAP) Pulse Ox O2 Delivery O2 Flow Rate FiO2 09/24/17 22:30 101 104/47 09/24/17 20:57 104 34 65 09/24/17 19:00 98.4 98 25 104/49 99 Mechanical Ventilator 65 98.4 09/24/17 18:50 99 28 65 09/24/17 18:00 97 25 107/55 99 Mechanical Ventilator 65 09/24/17 17:12 98.4 09/24/17 17:00 101 26 110/50 98 Mechanical Ventilator 65 18 16:57 110 30 65 18 16:42 100.0 18 16:00 100.0 110 25 129/57 97 Mechanical Ventilator 65 100.0 18 16:00 65 18 16:00 110 09/24/17 15:00 110 26 100/63 98 Mechanical Ventilator 65 18 14:57 112 32 65 18 14:32 108 128/64 09/24/17 14:00 108 18 128/64 98 Mechanical Ventilator 65 09/24/17 13:00 105 18 127/58 95 Mechanical Ventilator 65 09/24/17 12:32 103 30 65 09/24/17 12:00 98.9 96 16 119/63 98 Mechanical Ventilator 75 98.9 09/24/17 12:00 98 09/24/17 12:00 75 09/24/17 11:00 100 16 113/51 98 Mechanical Ventilator 75 09/24/17 10:31 99 26 75 09/24/17 10:00 93 16 115/57 100 Mechanical Ventilator 85 09/24/17 09:11 90 27 85 09/24/17 09:00 94 25 113/48 100 Mechanical Ventilator 85 09/24/17 08:00 90 09/24/17 08:00 99.5 90 18 122/54 100 Mechanical Ventilator 85 99.5 09/24/17 08:00 80 09/24/17 07:29 98 31 85 09/24/17 07:00 87 18 104/56 100 Mechanical Ventilator 85 09/24/17 06:03 100 116/48 09/24/17 06:00 98 18 120/55 100 Mechanical Ventilator 85 09/24/17 05:30 88 28 85 09/24/17 05:00 94 18 116/48 100 Mechanical Ventilator 85 09/24/17 04:00 85 09/24/17 04:00 91 09/24/17 04:00 99.4 91 18 105/54 100 Mechanical Ventilator 85 99.4 09/24/17 03:30 92 22 85 18 03:00 94 19 119/56 100 Mechanical Ventilator 85 09/24/17 02:00 99 29 115/50 100 Mechanical Ventilator 85 09/24/17 01:30 101 34 85 18 01:00 104 32 124/49 100 Mechanical Ventilator 85 09/24/17 00:00 105 09/24/17 00:00 85 09/24/17 00:00 99.4 105 30 121/52 100 Mechanical Ventilator 85 99.4 09/23/17 23:10 102 27 85 09/23/17 23:00 104 25 112/50 100 Mechanical Ventilator 85 Intake and Output 09/23/17 09/24/17 19:00 07:00 Intake Total 1629 ml 1718 ml Output Total 575 ml 610 ml Balance 1054 ml 1108 ml IV Total 1125 ml 1125 ml Blood Product 504 ml 593 ml Output Urine Total 575 ml 610 ml # Bowel Movements 4 Laboratory Tests 09/24/17 03:10: White Blood Count 19.7H, Red Blood Count 2.81L, Hemoglobin 8.9#L, Hematocrit 27.1L, Mean Corpuscular Volume 96, Mean Corpuscular Hemoglobin 31.8H, Mean Corpuscular Hemoglobin Concent 33.1, Red Cell Distribution Width 23.0H, Platelet Count 25L, Mean Platelet Volume 10.1, Neutrophils (%) (Auto) , Lymphocytes (%) (Auto) , Monocytes (%) (Auto) , Eosinophils (%) (Auto) , Basophils (%) (Auto) , Differential Total Cells Counted 100, Neutrophils % ( Manual) 83H, Lymphocytes % (Manual) 5L, Monocytes % (Manual) 12H, Eosinophils % (Manual) 0, Basophils % (Manual) 0, Band Neutrophils 0, Nucleated Red Blood Cells 5, Platelet Estimate DecreasedL, Platelet Morphology Normal, Polychromasia 2+, Hypochromasia 1+, Anisocytosis 2+, Prothrombin Time 11.3, Prothromb Time International Ratio 1.1, Sodium Level 155H, Potassium Level 3.7, Chloride Level 119H, Carbon Dioxide Level 26, Anion Gap 10, Blood Urea Nitrogen 39H, Creatinine 1.0, Estimat Glomerular Filtration Rate , Glucose Level 144H, Calcium Level 8.1L, Phosphorus Level 3.9, Magnesium Level 2.0, Total Bilirubin 1.1H, Direct Bilirubin 0.5H, Aspartate Amino Transf (AST/SGOT) 55H, Alanine Aminotransferase (ALT/SGPT) 28, Alkaline Phosphatase 350H, Total Protein 5.6L, Albumin 1.6L, Globulin 4.0, Albumin/Globulin Ratio 0.4L, Random Amikacin Level 16.4 09/24/17 06:00: Cryptococcus Antigen [Pending], Urine Legionella Antigen [Pending] 09/24/17 09:40: Coccidioides Antibody (Comp Fix) [Pending], Aspergillus galactomannan Antigen [ Pending] Height (Feet): 5 Height (Inches): 0.00 Weight (Pounds): 105 Dary Nixon M.D. Sep 24, 2017 22:51
[2017-09-25] VITALS (28 sets, daily range): BP systolic 107–138; BP diastolic 43–76
[2017-09-25 04:39] LABS: HEMATOCRIT 24.4 % (37.0-47.0); MEAN CORPUSCULAR VOLUME 99 FL (80-99); PLATELET COUNT 45 K/UL (150-450); RED BLOOD COUNT 2.47 M/UL (4.20-5.40); RED CELL DISTRIBUTION WIDTH 24.3 % (11.6-14.8); WHITE BLOOD COUNT 13.5 K/UL (4.8-10.8)
[2017-09-25 05:07] LABS: ALANINE AMINOTRANSFERASE 37 U/L (12-78); ALBUMIN 1.5 G/DL (3.4-5.0); ALBUMIN/GLOBULIN RATIO 0.4 (1.0-2.7); ALKALINE PHOSPHATASE 950 U/L (46-116); ANION GAP 8 mmol/L (5-15); ASPARTATE AMINO TRANSFERASE 72 U/L (15-37); BILIRUBIN,TOTAL 1.2 MG/DL (0.2-1.0); BLOOD UREA NITROGEN 42 mg/dL (7-18); CALCIUM 7.9 MG/DL (8.5-10.1); CARBON DIOXIDE 25 MMOL/L (21-32); CHLORIDE 119 MMOL/L (98-107); PHOSPHORUS 4.4 MG/DL (2.5-4.9); POTASSIUM 4.2 MMOL/L (3.5-5.1); SODIUM 152 MMOL/L (136-145)
[2017-09-25 05:11] LABS: BILIRUBIN,DIRECT 0.5 MG/DL (0.0-0.3)
--- NOTE | 2017-09-25 06:00 | Progress Note ---
DATE: 09/24/2017 SUBJECTIVE: The patient was seen in the morning in the ICU. She remains intubated and obtunded. Imaging studies were all reviewed from yesterday with the radiologist. The results were related to the patient's physician relative, Pramod. The options for further workup were discussed. An order for MRI with MRCP was placed last night, but this morning I was notified by Radiology staff that this examination was not feasible due to the patient's poor respiratory status and inability for the respiratory therapist to hand bag the patient in the MRI scanner for that duration of time. This was explained to the patient's relative and the option of repeating the CT scan with IV contrast was offered and orders were written. The family subsequently decided not to give consent for the IV contrast study. OBJECTIVE: GENERAL: A thin elderly white woman in the ICU on the ventilator. HEENT: Normocephalic and atraumatic. Endotracheal and feeding tube were in place. CHEST: Revealed coarse breath sounds and scattered rhonchi. CARDIOVASCULAR: Revealed a regular rate. ABDOMEN: Soft and without masses. EXTREMITIES: Revealed edema in all four extremities. NEUROLOGIC: Notable for obtunded mental status. LABORATORY AND DIAGNOSTIC DATA: Laboratory data were noted. Imaging studies were noted. ASSESSMENT: 1. Respiratory failure with acute respiratory distress syndrome. 2. Mild elevation in alkaline phosphatase and AST with slightly declining pattern in the last few days. 3. Cholelithiasis seen on CT scan. 4. Anemia with heme-positive stools. 5. Thrombocytopenia. 6. Malnutrition, need for nasogastric tube feeding. 7. Diarrhea with Clostridium difficile negative stools. 8. Hypernatremia. 9. Sepsis and leukocytosis. 10. Low albumin. RECOMMENDATIONS: The possibility of choledocholithiasis was discussed with the patient's family and the option of CT with contrast was offered, which was declined. Given the near normal bilirubin level, the likelihood of cholangitis is low. At this point, I would continue current management with the IV antibiotics and resume tube feedings. Her laboratory parameters will be followed closely and the patient can be transfused as necessary. Yair Encinas M.D. DR: Drew JOB#: [id number] CC:
[2017-09-25] MEDS: D5 1/2NS w/KCL 10meq 1,000 ML IV SCH (06:12)
[2017-09-25] MEDS: metroNIDAZOLE 500mg tab ORAL SCH ×3 (06:13→22:14)
[2017-09-25] MEDS: dilTIAZem HCl 30mg tab NG SCH ×3 (06:13→22:14)
[2017-09-25] MEDS: NovoLOG Insulin Flexpen SUBQ SCH ×3 (06:14→18:30)
[2017-09-25] MEDS: Fluconazole 100mg tab ORAL SCH (08:38)
[2017-09-25] MEDS: Acetaminophen 650mg/20.3ml NG PRN (08:38)
[2017-09-25] MEDS ORDERED: Ketotifen Fumarate 0.035% 5ml BOTH EYES SCH (09:00)
--- NOTE | 2017-09-25 09:35 | Diagnostic Imaging Report ---
Indication: Dyspnea Technique: One view of the chest Comparison: 09/23/2017 Findings: Stable satisfactory positions of endotracheal and nasogastric tubes. Bilateral diffuse interstitial and airspace disease persists, unchanged Impression: Unchanged, over 2 days, findings as above.
--- NOTE | 2017-09-25 10:24 | General Progress Note ---
Assessment/Plan Assessment/Plan Assessment - Resp failure / ARDS / PNA - Abnormal LFT, r/o CBD stone and biliary infection - Anemia with OB (+) stools - thrombocytopenia - better today - Malnutrition - Diarrhea- C Diff negative - hypernatremia - Na better today - Leukocytosis / sepsis - on abx, WBC better today Recommendations - Await family decision re CT with IV contrast +/- ERCP - transfuse PRN - Elevate HOB - Vent care - Monitor H&H and WBC - Follow Na Subjective Allergies: Coded Allergies: No Known Allergies (Verified , 11/18/08) Subjective on Vent tolerating TF (+) BM, loose Alk phos and bili higher today Family declined CT with IV contrast yesterday extensively d/w Nephew, Dr. Hernandez again this am advised pt may have CBD stone, with possible biliary infection Offered CT with contrast again advised information could be used to decide on possible ERCP He will discuss with father and let me know if they agree Objective Last 24 Hour Vital Signs Date Time Temp Pulse Resp B/P (MAP) Pulse Ox O2 Delivery O2 Flow Rate FiO2 09/25/17 09:08 99.4 09/25/17 09:00 111 30 127/50 94 Mechanical Ventilator 65 09/25/17 08:38 100.3 09/25/17 08:00 115 09/25/17 08:00 65 09/25/17 08:00 100.3 118 30 131/53 96 Mechanical Ventilator 65 100.3 09/25/17 07:10 108 28 65 09/25/17 07:00 106 30 127/54 98 Mechanical Ventilator 65 09/25/17 06:20 98.6 103 34 124/58 96 Mechanical Ventilator 65 98.6 09/25/17 06:13 108 119/54 09/25/17 06:00 105 32 119/54 96 Mechanical Ventilator 65 09/25/17 05:05 104 31 65 09/25/17 05:00 100 32 118/54 96 Mechanical Ventilator 65 09/25/17 04:00 65 09/25/17 04:00 102 09/25/17 04:00 103 09/25/17 04:00 98.6 103 34 124/58 96 Mechanical Ventilator 65 98.6 09/25/17 03:11 95 31 65 09/25/17 03:00 95 30 138/61 96 Mechanical Ventilator 65 09/25/17 02:00 102 34 114/50 96 Mechanical Ventilator 65 09/25/17 01:00 96 34 108/54 96 Mechanical Ventilator 65 09/25/17 00:59 101 35 65 09/25/17 00:00 98.5 96 30 130/76 97 Mechanical Ventilator 65 98.5 09/25/17 00:00 98 09/24/17 23:00 97 32 65 09/24/17 23:00 96 30 110/51 97 Mechanical Ventilator 65 09/24/17 22:30 101 104/47 09/24/17 22:00 97 30 100/60 97 Mechanical Ventilator 65 09/24/17 21:00 99 30 104/47 97 Mechanical Ventilator 65 09/24/17 20:57 104 34 65 09/24/17 20:00 102 09/24/17 20:00 98.0 102 33 110/51 97 Mechanical Ventilator 65 98.0 09/24/17 20:00 65 09/24/17 19:00 98.4 98 25 104/49 99 Mechanical Ventilator 65 98.4 09/24/17 18:50 99 28 65 09/24/17 18:00 97 25 107/55 99 Mechanical Ventilator 65 09/24/17 17:00 101 26 110/50 98 Mechanical Ventilator 65 09/24/17 16:57 110 30 65 09/24/17 16:42 100.0 09/24/17 16:00 100.0 110 25 129/57 97 Mechanical Ventilator 65 100.0 09/24/17 16:00 65 09/24/17 16:00 110 09/24/17 15:00 110 26 100/63 98 Mechanical Ventilator 65 09/24/17 14:57 112 32 65 09/24/17 14:32 108 128/64 09/24/17 14:00 108 18 128/64 98 Mechanical Ventilator 65 09/24/17 13:00 105 18 127/58 95 Mechanical Ventilator 65 09/24/17 12:32 103 30 65 09/24/17 12:00 98.9 96 16 119/63 98 Mechanical Ventilator 75 98.9 09/24/17 12:00 98 09/24/17 12:00 75 09/24/17 11:00 100 16 113/51 98 Mechanical Ventilator 75 09/24/17 10:31 99 26 75 Intake and Output 09/24/17 09/25/17 19:00 07:00 Intake Total 2225 ml 2440 ml Output Total 710 ml 550 ml Balance 1515 ml 1890 ml Intake Free Water 150 ml 160 ml IV Total 1375 ml 1500 ml Tube Feeding 600 ml 780 ml Other 100 ml Output Urine Total 710 ml 550 ml # Bowel Movements 2 3 Laboratory Tests 09/25/17 04:00: White Blood Count 13.5H, Red Blood Count 2.47L, Hemoglobin 8.0L, Hematocrit 24.4L, Mean Corpuscular Volume 99, Mean Corpuscular Hemoglobin 32.3H, Mean Corpuscular Hemoglobin Concent 32.6, Red Cell Distribution Width 24.3H, Platelet Count 45#L, Mean Platelet Volume 9.7, Neutrophils (%) (Auto) , Lymphocytes (%) (Auto) , Monocytes (%) (Auto) , Eosinophils (%) (Auto) , Basophils (%) (Auto) , Differential Total Cells Counted 100, Neutrophils % ( Manual) 83H, Lymphocytes % (Manual) 8L, Monocytes % (Manual) 9, Eosinophils % ( Manual) 0, Basophils % (Manual) 0, Band Neutrophils 0, Nucleated Red Blood Cells 3, Platelet Estimate DecreasedL, Platelet Morphology Normal, Polychromasia 2+, Hypochromasia 1+, Anisocytosis 2+, Sodium Level 152H, Potassium Level 4.2, Chloride Level 119H, Carbon Dioxide Level 25, Anion Gap 8, Blood Urea Nitrogen 42H, Creatinine 1.0, Estimat Glomerular Filtration Rate , Glucose Level 209H, Calcium Level 7.9L, Phosphorus Level 4.4, Magnesium Level 2.1, Total Bilirubin 1.2H, Direct Bilirubin 0.5H, Aspartate Amino Transf (AST/ SGOT) 72H, Alanine Aminotransferase (ALT/SGPT) 37, Alkaline Phosphatase 950H, Total Protein 5.4L, Albumin 1.5L, Globulin 3.9, Albumin/Globulin Ratio 0.4L 09/25/17 07:10: Arterial Blood pH 7.456H, Arterial Blood Partial Pressure CO2 30.3L, Arterial Blood Partial Pressure O2 71.1L, Arterial Blood HCO3 20.9L, Arterial Blood Oxygen Saturation 93.1, Arterial Blood Base Excess -2.4, Luis A Test Positive Height (Feet): 5 Height (Inches): 0.00 Weight (Pounds): 109 Objective WDWN NCAT , (+) ETT supple CTA RRR abd soft (+) edema non verbal ARNULFO DURON Sep 25, 2017 10:24
--- NOTE | 2017-09-25 10:59 | Pulmonolgy Critical Care Note ---
Critical Care - Asmt/Plan Problems: (1) ARDS (adult respiratory distress syndrome) (2) Aspiration pneumonia (3) Anemia (4) Thrombocytopenia (5) Diabetes mellitus (6) Protein-calorie malnutrition, severe Assessment/Plan: improving overall Respiratory: monitor respiratory rate, adjust FIO2, CXR Cardiac: continue to monitor HR/BP Renal: F/U I&O Infectious Disease: check cultures, continue antibiotics Gastrointestinal: continue feedings/current rate Endocrine: monitor blood sugar Hematologic: monitor H/H, other - PLT better Neurologic: PRN Morphine Prophylaxis: Protonix, Heparin Notes Reviewed: distance learning program coordinator, cardio, renal, ID, GI Discussed with: nurses, consultants, family member, other - pt will need a tracheostomy Critical Care - Objective Last 24 Hour Vital Signs Date Time Temp Pulse Resp B/P (MAP) Pulse Ox O2 Delivery O2 Flow Rate FiO2 09/25/17 10:00 102 30 118/52 94 Mechanical Ventilator 65 09/25/17 09:08 99.4 09/25/17 09:00 111 30 127/50 94 Mechanical Ventilator 65 09/25/17 08:38 100.3 09/25/17 08:00 115 09/25/17 08:00 65 09/25/17 08:00 100.3 118 30 131/53 96 Mechanical Ventilator 65 100.3 09/25/17 07:10 108 28 65 09/25/17 07:00 106 30 127/54 98 Mechanical Ventilator 65 09/25/17 06:20 98.6 103 34 124/58 96 Mechanical Ventilator 65 98.6 09/25/17 06:13 108 119/54 09/25/17 06:00 105 32 119/54 96 Mechanical Ventilator 65 09/25/17 05:05 104 31 65 09/25/17 05:00 100 32 118/54 96 Mechanical Ventilator 65 09/25/17 04:00 65 09/25/17 04:00 102 09/25/17 04:00 103 09/25/17 04:00 98.6 103 34 124/58 96 Mechanical Ventilator 65 98.6 09/25/17 03:11 95 31 65 09/25/17 03:00 95 30 138/61 96 Mechanical Ventilator 65 09/25/17 02:00 102 34 114/50 96 Mechanical Ventilator 65 09/25/17 01:00 96 34 108/54 96 Mechanical Ventilator 65 09/25/17 00:59 101 35 65 09/25/17 00:00 98.5 96 30 130/76 97 Mechanical Ventilator 65 98.5 09/25/17 00:00 98 09/24/17 23:00 97 32 65 09/24/17 23:00 96 30 110/51 97 Mechanical Ventilator 65 09/24/17 22:30 101 104/47 09/24/17 22:00 97 30 100/60 97 Mechanical Ventilator 65 09/24/17 21:00 99 30 104/47 97 Mechanical Ventilator 65 09/24/17 20:57 104 34 65 09/24/17 20:00 102 09/24/17 20:00 98.0 102 33 110/51 97 Mechanical Ventilator 65 98.0 09/24/17 20:00 65 09/24/17 19:00 98.4 98 25 104/49 99 Mechanical Ventilator 65 98.4 09/24/17 18:50 99 28 65 09/24/17 18:00 97 25 107/55 99 Mechanical Ventilator 65 09/24/17 17:00 101 26 110/50 98 Mechanical Ventilator 65 09/24/17 16:57 110 30 65 09/24/17 16:42 100.0 09/24/17 16:00 100.0 110 25 129/57 97 Mechanical Ventilator 65 100.0 09/24/17 16:00 65 09/24/17 16:00 110 09/24/17 15:00 110 26 100/63 98 Mechanical Ventilator 65 09/24/17 14:57 112 32 65 09/24/17 14:32 108 128/64 09/24/17 14:00 108 18 128/64 98 Mechanical Ventilator 65 09/24/17 13:00 105 18 127/58 95 Mechanical Ventilator 65 09/24/17 12:32 103 30 65 09/24/17 12:00 98.9 96 16 119/63 98 Mechanical Ventilator 75 98.9 09/24/17 12:00 98 09/24/17 12:00 75 09/24/17 11:00 100 16 113/51 98 Mechanical Ventilator 75 Status: awake Condition: critical HEENT: atraumatic Lungs: rales, rhonchi Heart: HR/BP stable, regular Abdomen: soft, active bowel sounds Extremities: no C/C/E Decubiti: location Micro: Microbiology Date/Time Source Procedure Growth Status 09/22/17 12:50 Blood Blood Culture - Preliminary NO GROWTH AFTER 48 HOURS Resulted 09/22/17 12:45 Blood Blood Culture - Preliminary NO GROWTH AFTER 48 HOURS Resulted 09/22/17 15:00 Stool Clostridium difficile Toxin Assay - Final Complete Accucheck: 219 Critical Care - Subjective ROS Limited/Unobtainable: No ICU Day: 14 Condition: critical EKG Rhythm: Sinus Rhythm FI02: 65 Vent Support Breath Rate: 18 Vent Support Mode: AC Vent Tidal Volume: 500 Sputum Amount: Small PEEP: 7.0 PIP: 41 Tube Feeding Amount: 45 I&O: Intake and Output 09/24/17 09/25/17 19:00 07:00 Intake Total 2225 ml 2440 ml Output Total 710 ml 550 ml Balance 1515 ml 1890 ml Intake Free Water 150 ml 160 ml IV Total 1375 ml 1500 ml Tube Feeding 600 ml 780 ml Other 100 ml Output Urine Total 710 ml 550 ml # Bowel Movements 2 3 CXR: no major changes ET-Tube: 7.5 ET Position: 20 Labs: Laboratory Tests Test 09/25/17 04:00 09/25/17 07:10 White Blood Count 13.5 K/UL (4.8-10.8) H Red Blood Count 2.47 M/UL (4.20-5.40) L Hemoglobin 8.0 G/DL (12.0-16.0) L Hematocrit 24.4 % (37.0-47.0) L Mean Corpuscular Volume 99 FL (80-99) Mean Corpuscular Hemoglobin 32.3 PG (27.0-31.0) H Mean Corpuscular Hemoglobin Concent 32.6 G/DL (32.0-36.0) Red Cell Distribution Width 24.3 % (11.6-14.8) H Platelet Count 45 K/UL (150-450) #L Mean Platelet Volume 9.7 FL (6.5-10.1) Neutrophils (%) (Auto) % (45.0-75.0) Lymphocytes (%) (Auto) % (20.0-45.0) Monocytes (%) (Auto) % (1.0-10.0) Eosinophils (%) (Auto) % (0.0-3.0) Basophils (%) (Auto) % (0.0-2.0) Differential Total Cells Counted 100 Neutrophils % (Manual) 83 % (45-75) H Lymphocytes % (Manual) 8 % (20-45) L Monocytes % (Manual) 9 % (1-10) Eosinophils % (Manual) 0 % (0-3) Basophils % (Manual) 0 % (0-2) Band Neutrophils 0 % (0-8) Nucleated Red Blood Cells 3 /100 WBC Platelet Estimate Decreased L Platelet Morphology Normal Polychromasia 2+ Hypochromasia 1+ Anisocytosis 2+ Sodium Level 152 MMOL/L (136-145) H Potassium Level 4.2 MMOL/L (3.5-5.1) Chloride Level 119 MMOL/L (98-107) H Carbon Dioxide Level 25 MMOL/L (21-32) Anion Gap 8 mmol/L (5-15) Blood Urea Nitrogen 42 mg/dL (7-18) H Creatinine 1.0 MG/DL (0.55-1.30) Estimat Glomerular Filtration Rate mL/min (>60) Glucose Level 209 MG/DL (74-106) H Calcium Level 7.9 MG/DL (8.5-10.1) L Phosphorus Level 4.4 MG/DL (2.5-4.9) Magnesium Level 2.1 MG/DL (1.8-2.4) Total Bilirubin 1.2 MG/DL (0.2-1.0) H Direct Bilirubin 0.5 MG/DL (0.0-0.3) H Aspartate Amino Transf (AST/SGOT) 72 U/L (15-37) H Alanine Aminotransferase (ALT/SGPT) 37 U/L (12-78) Alkaline Phosphatase 950 U/L (46-116) H Total Protein 5.4 G/DL (6.4-8.2) L Albumin 1.5 G/DL (3.4-5.0) L Globulin 3.9 g/dL Albumin/Globulin Ratio 0.4 (1.0-2.7) L Arterial Blood pH 7.456 (7.350-7.450) Arterial Blood Partial Pressure CO2 30.3 mmHg (35.0-45.0) L Arterial Blood Partial Pressure O2 71.1 mmHg (75.0-100.0) L Arterial Blood HCO3 20.9 mmol/L (22.0-26.0) L Arterial Blood Oxygen Saturation 93.1 % (92.0-98.0) Arterial Blood Base Excess -2.4 Luis A Test Positive Tayler Liu MD Sep 25, 2017 10:59
--- NOTE | 2017-09-25 11:10 | General Progress Note ---
Assessment/Plan Assessment/Plan #. Leukocytosis likely related to underlying pneumonia infection. --> On abx. --> Wbc count improving. #. Thrombocytopenia, severe and progressive, acute onset, likely secondary to underlying infection, aspiration pneumonia versus HIT. --> Antibody test is pending. Heparin has been discontinued on 09/18/2017. --> Duplex of the lower extremities is negative, therefore less likely HIT and other causes are more likely such as underlying infection. --> Platelets goal >20k, transfuse if necessary. #. Anemia due to underlying chronic disease. Continue to closely monitor. --> Hemoglobin goal is above 7. --> S/P PRBC. No acute events. --> Anemia workup has been reviewed at this point. --> Transfuse if hemoglobin less than 7. #. Community-acquired pneumonia versus hospital-acquired. --> The patient on broad-spectrum antibiotics. --> Improved. --> Urine culture growing E. coli. Continue to closely monitor. #. Transaminitis. She has been seen by GI Service. Continue to closely monitor. #. Low-grade fever. Closely observe. Subjective Date patient seen: Sep 24, 2017 Constitutional: Denies: no symptoms, chills, diaphoresis, fever, malaise, weakness, other HEENT: Denies: no symptoms, eye pain, blurred vision, tearing, double vision, ear pain, ear discharge, nose pain, nose congestion, throat pain, throat swelling, mouth pain, mouth swelling, other Cardiovascular: Denies: no symptoms, chest pain, edema, irregular heart rate, lightheadedness, palpitations, syncope, other Respiratory: Denies: no symptoms, cough, orthopnea, shortness of breath, SOB with excertion, SOB at rest, sputum, stridor, wheezing, other Gastrointestinal/Abdominal: Denies: no symptoms, abdomen distended, abdominal pain, black stools, tarry stools, blood in stool, constipated, diarrhea, difficulty swallowing, nausea, poor appetite, poor fluid intake, rectal bleeding , vomiting, other Genitourinary: Denies: no symptoms, burning, discharge, frequency, flank pain, hematuria, incontinence, pain, urgency, other 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: Denies: no symptoms, anxiety, depressed, emotional problems, headache, numbness, paresthesia, pre-existing deficit, seizure, tingling, tremors, weakness, other Hematologic/Lymphatic: Reports: anemia Allergies: Coded Allergies: No Known Allergies (Verified , 11/18/08) Subjective Platelets low, wbc improved. Objective Last 24 Hour Vital Signs Date Time Temp Pulse Resp B/P (MAP) Pulse Ox O2 Delivery O2 Flow Rate FiO2 09/25/17 10:00 102 30 118/52 94 Mechanical Ventilator 65 09/25/17 09:08 99.4 09/25/17 09:00 111 30 127/50 94 Mechanical Ventilator 65 09/25/17 08:38 100.3 09/25/17 08:00 115 09/25/17 08:00 65 09/25/17 08:00 100.3 118 30 131/53 96 Mechanical Ventilator 65 100.3 09/25/17 07:10 108 28 65 09/25/17 07:00 106 30 127/54 98 Mechanical Ventilator 65 09/25/17 06:20 98.6 103 34 124/58 96 Mechanical Ventilator 65 98.6 09/25/17 06:13 108 119/54 09/25/17 06:00 105 32 119/54 96 Mechanical Ventilator 65 09/25/17 05:05 104 31 65 09/25/17 05:00 100 32 118/54 96 Mechanical Ventilator 65 09/25/17 04:00 65 09/25/17 04:00 102 09/25/17 04:00 103 09/25/17 04:00 98.6 103 34 124/58 96 Mechanical Ventilator 65 98.6 09/25/17 03:11 95 31 65 09/25/17 03:00 95 30 138/61 96 Mechanical Ventilator 65 09/25/17 02:00 102 34 114/50 96 Mechanical Ventilator 65 09/25/17 01:00 96 34 108/54 96 Mechanical Ventilator 65 09/25/17 00:59 101 35 65 09/25/17 00:00 98.5 96 30 130/76 97 Mechanical Ventilator 65 98.5 09/25/17 00:00 98 09/24/17 23:00 97 32 65 09/24/17 23:00 96 30 110/51 97 Mechanical Ventilator 65 09/24/17 22:30 101 104/47 09/24/17 22:00 97 30 100/60 97 Mechanical Ventilator 65 09/24/17 21:00 99 30 104/47 97 Mechanical Ventilator 65 09/24/17 20:57 104 34 65 09/24/17 20:00 102 09/24/17 20:00 98.0 102 33 110/51 97 Mechanical Ventilator 65 98.0 09/24/17 20:00 65 09/24/17 19:00 98.4 98 25 104/49 99 Mechanical Ventilator 65 98.4 09/24/17 18:50 99 28 65 09/24/17 18:00 97 25 107/55 99 Mechanical Ventilator 65 09/24/17 17:00 101 26 110/50 98 Mechanical Ventilator 65 09/24/17 16:57 110 30 65 09/24/17 16:42 100.0 09/24/17 16:00 100.0 110 25 129/57 97 Mechanical Ventilator 65 100.0 09/24/17 16:00 65 09/24/17 16:00 110 09/24/17 15:00 110 26 100/63 98 Mechanical Ventilator 65 09/24/17 14:57 112 32 65 09/24/17 14:32 108 128/64 09/24/17 14:00 108 18 128/64 98 Mechanical Ventilator 65 09/24/17 13:00 105 18 127/58 95 Mechanical Ventilator 65 09/24/17 12:32 103 30 65 09/24/17 12:00 98.9 96 16 119/63 98 Mechanical Ventilator 75 98.9 09/24/17 12:00 98 09/24/17 12:00 75 09/24/17 11:00 100 16 113/51 98 Mechanical Ventilator 75 Intake and Output 09/24/17 09/25/17 19:00 07:00 Intake Total 2225 ml 2440 ml Output Total 710 ml 550 ml Balance 1515 ml 1890 ml Intake Free Water 150 ml 160 ml IV Total 1375 ml 1500 ml Tube Feeding 600 ml 780 ml Other 100 ml Output Urine Total 710 ml 550 ml # Bowel Movements 2 3 Laboratory Tests 09/25/17 04:00: White Blood Count 13.5H, Red Blood Count 2.47L, Hemoglobin 8.0L, Hematocrit 24.4L, Mean Corpuscular Volume 99, Mean Corpuscular Hemoglobin 32.3H, Mean Corpuscular Hemoglobin Concent 32.6, Red Cell Distribution Width 24.3H, Platelet Count 45#L, Mean Platelet Volume 9.7, Neutrophils (%) (Auto) , Lymphocytes (%) (Auto) , Monocytes (%) (Auto) , Eosinophils (%) (Auto) , Basophils (%) (Auto) , Differential Total Cells Counted 100, Neutrophils % ( Manual) 83H, Lymphocytes % (Manual) 8L, Monocytes % (Manual) 9, Eosinophils % ( Manual) 0, Basophils % (Manual) 0, Band Neutrophils 0, Nucleated Red Blood Cells 3, Platelet Estimate DecreasedL, Platelet Morphology Normal, Polychromasia 2+, Hypochromasia 1+, Anisocytosis 2+, Sodium Level 152H, Potassium Level 4.2, Chloride Level 119H, Carbon Dioxide Level 25, Anion Gap 8, Blood Urea Nitrogen 42H, Creatinine 1.0, Estimat Glomerular Filtration Rate , Glucose Level 209H, Calcium Level 7.9L, Phosphorus Level 4.4, Magnesium Level 2.1, Total Bilirubin 1.2H, Direct Bilirubin 0.5H, Aspartate Amino Transf (AST/ SGOT) 72H, Alanine Aminotransferase (ALT/SGPT) 37, Alkaline Phosphatase 950H, Total Protein 5.4L, Albumin 1.5L, Globulin 3.9, Albumin/Globulin Ratio 0.4L 09/25/17 07:10: Arterial Blood pH 7.456H, Arterial Blood Partial Pressure CO2 30.3L, Arterial Blood Partial Pressure O2 71.1L, Arterial Blood HCO3 20.9L, Arterial Blood Oxygen Saturation 93.1, Arterial Blood Base Excess -2.4, Luis A Test Positive Height (Feet): 5 Height (Inches): 0.00 Weight (Pounds): 109 Johnny Sinha Sep 25, 2017 11:09
--- NOTE | 2017-09-25 11:24 | Infectious Diseases Prog Note ---
Assessment/Plan Assessment/Plan ASSESSMENT: The patient is a 76-year-old female w Fever, SP Leukocytosis , improving- r/o new infection, JOSETTE, bacteremia -Cdiff neg -09/22 sp cx C.a lbicans, Bcx NTD -u/a wbc 10-15, nit neg, leuk +2; ucx >100k C. albicans -Fungal sp cx p Community-acquired vs healthcare-associated pneumonia (the patient has been recently hospitalized in [facility]). -now ARDS- r/o fungal PNA -CT chest 09/23: Diffuse extensive pulmonary parenchymal disease, with dense consolidation interspersed with groundglass opacities. Appearance nonspecific, possibilities include pulmonary edema, pneumonia, ARDS, hemorrhage. Bilateral pleural effusions, left greater than right. Diffuse edema of the subcutaneous fat, Multiple small thyroid nodules. All apparently under 1 cm, no further follow-up necessary. Degenerative changes of the shoulders 09/19 xray : Unchanged diffuse interstitial and airspace edema, Probable influenza despite of negative influenza screening test, s/p Rx Abnormal liver function tests, ALP>>> AST -?cholangitis, obstruction on CBD; AST and ALP had improved, now worsenign again -HIDA scan: Negative for evidence of cystic duct obstruction/acute cholecystitis. Common bile duct is demonstrated be patent, but emptying into the duodenum is delayed, not seen until 2 hours. Significance of this is uncertain. MRCP or CT scanning may be useful to clarify -CT abd/p 09/23: Evidence of anasarca, with diffuse edema subcutaneous and mesenteric fat, bilateral pleural effusions, possible pulmonary edema, trace ascites. Densities within the gallbladder, probably reflecting tiny gallstones, although these are not identifiable on recent ultrasound. Gallbladder wall edema is probably a manifestation of anasarca, as recent hepatobiliary scan was negative for acute cholecystitis. Old ununited fracture deformities of the right pelvis. Bilateral chronic appearing hip dislocations Ultrasound of the abdomen : Gallbladder sludge. No definite stones. 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 -R/o HIT. Abx and protonix could be also be contributors. VDRF / ARDS HTN GERD History of auditory hallucination. Depression. Anemia. Rheumatoid arthritis. History of gastritis. PLAN: -Continue Amikacin #3 (abx d#7) and flagyl #3 for now while awaiting cx and possible CT abd/w +/- ERCP- patient's WBC improving with current regimen -will hold Fluconazole #3 for now as raise in AST and ALP -f/u fungal serologies 09/23 SP Meropenem #5, PO Vanco #2 09/21 SP tamiflu #10 09/19 SP vancomycin and Levaquin d# 18 -f/u repeat cx -f/u Asp ag, fungitell, CrAg, Cocci ab, fungal sp cx Monitor CBC.; Trend WBC Monitor BMP.; Trend LFTs Monitor chest x-ray -GI, heme onc f/u Discussed with RN Subjective Allergies: Coded Allergies: No Known Allergies (Verified , 11/18/08) Subjective low grade fevers, Tm 100.3 leukocytosis improving ALP and AST increased Bcx NTD fungal serologies pending Objective Vital Signs Last 24 Hour Vital Signs Date Time Temp Pulse Resp B/P (MAP) Pulse Ox O2 Delivery O2 Flow Rate FiO2 09/25/17 11:04 98 29 65 09/25/17 10:00 102 30 118/52 94 Mechanical Ventilator 65 09/25/17 09:20 99 27 65 09/25/17 09:08 99.4 09/25/17 09:00 111 30 127/50 94 Mechanical Ventilator 65 09/25/17 08:38 100.3 09/25/17 08:00 115 09/25/17 08:00 65 09/25/17 08:00 100.3 118 30 131/53 96 Mechanical Ventilator 65 100.3 09/25/17 07:10 108 28 65 09/25/17 07:00 106 30 127/54 98 Mechanical Ventilator 65 09/25/17 06:20 98.6 103 34 124/58 96 Mechanical Ventilator 65 98.6 09/25/17 06:13 108 119/54 09/25/17 06:00 105 32 119/54 96 Mechanical Ventilator 65 09/25/17 05:05 104 31 65 09/25/17 05:00 100 32 118/54 96 Mechanical Ventilator 65 09/25/17 04:00 65 09/25/17 04:00 102 09/25/17 04:00 103 09/25/17 04:00 98.6 103 34 124/58 96 Mechanical Ventilator 65 98.6 09/25/17 03:11 95 31 65 09/25/17 03:00 95 30 138/61 96 Mechanical Ventilator 65 09/25/17 02:00 102 34 114/50 96 Mechanical Ventilator 65 09/25/17 01:00 96 34 108/54 96 Mechanical Ventilator 65 09/25/17 00:59 101 35 65 09/25/17 00:00 98.5 96 30 130/76 97 Mechanical Ventilator 65 98.5 09/25/17 00:00 98 09/24/17 23:00 97 32 65 09/24/17 23:00 96 30 110/51 97 Mechanical Ventilator 65 09/24/17 22:30 101 104/47 09/24/17 22:00 97 30 100/60 97 Mechanical Ventilator 65 09/24/17 21:00 99 30 104/47 97 Mechanical Ventilator 65 09/24/17 20:57 104 34 65 09/24/17 20:00 102 09/24/17 20:00 98.0 102 33 110/51 97 Mechanical Ventilator 65 98.0 09/24/17 20:00 65 09/24/17 19:00 98.4 98 25 104/49 99 Mechanical Ventilator 65 98.4 09/24/17 18:50 99 28 65 09/24/17 18:00 97 25 107/55 99 Mechanical Ventilator 65 09/24/17 17:00 101 26 110/50 98 Mechanical Ventilator 65 09/24/17 16:57 110 30 65 09/24/17 16:42 100.0 09/24/17 16:00 100.0 110 25 129/57 97 Mechanical Ventilator 65 100.0 09/24/17 16:00 65 18 16:00 110 09/24/17 15:00 110 26 100/63 98 Mechanical Ventilator 65 09/24/17 14:57 112 32 65 18 14:32 108 128/64 09/24/17 14:00 108 18 128/64 98 Mechanical Ventilator 65 09/24/17 13:00 105 18 127/58 95 Mechanical Ventilator 65 09/24/17 12:32 103 30 65 09/24/17 12:00 98.9 96 16 119/63 98 Mechanical Ventilator 75 98.9 09/24/17 12:00 98 09/24/17 12:00 75 Height (Feet): 5 Height (Inches): 0.00 Weight (Pounds): 109 Objective General Appearance: lethargic, thin EENT: normal ENT inspection Neck: non-tender, normal alignment, supple Cardiovascular: normal peripheral pulses, normal rate, regular rhythm, no gallop/murmur, no JVD Respiratory/Chest: Mechanical vent; respiratory distress, crackles/rales, rhonchi - bilaterally, expiratory wheezing Abdomen: normal bowel sounds, non tender, soft, no organomegaly, no mass Skin: normal pigmentation, warm/dry Microbiology Date/Time Source Procedure Growth Status 09/22/17 12:50 Blood Blood Culture - Preliminary NO GROWTH AFTER 48 HOURS Resulted 09/22/17 12:45 Blood Blood Culture - Preliminary NO GROWTH AFTER 48 HOURS Resulted 09/22/17 15:00 Stool Clostridium difficile Toxin Assay - Final Complete Laboratory Tests Test 09/25/17 04:00 09/25/17 07:10 White Blood Count 13.5 K/UL (4.8-10.8) H Red Blood Count 2.47 M/UL (4.20-5.40) L Hemoglobin 8.0 G/DL (12.0-16.0) L Hematocrit 24.4 % (37.0-47.0) L Mean Corpuscular Volume 99 FL (80-99) Mean Corpuscular Hemoglobin 32.3 PG (27.0-31.0) H Mean Corpuscular Hemoglobin Concent 32.6 G/DL (32.0-36.0) Red Cell Distribution Width 24.3 % (11.6-14.8) H Platelet Count 45 K/UL (150-450) #L Mean Platelet Volume 9.7 FL (6.5-10.1) Neutrophils (%) (Auto) % (45.0-75.0) Lymphocytes (%) (Auto) % (20.0-45.0) Monocytes (%) (Auto) % (1.0-10.0) Eosinophils (%) (Auto) % (0.0-3.0) Basophils (%) (Auto) % (0.0-2.0) Differential Total Cells Counted 100 Neutrophils % (Manual) 83 % (45-75) H Lymphocytes % (Manual) 8 % (20-45) L Monocytes % (Manual) 9 % (1-10) Eosinophils % (Manual) 0 % (0-3) Basophils % (Manual) 0 % (0-2) Band Neutrophils 0 % (0-8) Nucleated Red Blood Cells 3 /100 WBC Platelet Estimate Decreased L Platelet Morphology Normal Polychromasia 2+ Hypochromasia 1+ Anisocytosis 2+ Sodium Level 152 MMOL/L (136-145) H Potassium Level 4.2 MMOL/L (3.5-5.1) Chloride Level 119 MMOL/L (98-107) H Carbon Dioxide Level 25 MMOL/L (21-32) Anion Gap 8 mmol/L (5-15) Blood Urea Nitrogen 42 mg/dL (7-18) H Creatinine 1.0 MG/DL (0.55-1.30) Estimat Glomerular Filtration Rate mL/min (>60) Glucose Level 209 MG/DL (74-106) H Calcium Level 7.9 MG/DL (8.5-10.1) L Phosphorus Level 4.4 MG/DL (2.5-4.9) Magnesium Level 2.1 MG/DL (1.8-2.4) Total Bilirubin 1.2 MG/DL (0.2-1.0) H Direct Bilirubin 0.5 MG/DL (0.0-0.3) H Aspartate Amino Transf (AST/SGOT) 72 U/L (15-37) H Alanine Aminotransferase (ALT/SGPT) 37 U/L (12-78) Alkaline Phosphatase 950 U/L (46-116) H Total Protein 5.4 G/DL (6.4-8.2) L Albumin 1.5 G/DL (3.4-5.0) L Globulin 3.9 g/dL Albumin/Globulin Ratio 0.4 (1.0-2.7) L Arterial Blood pH 7.456 (7.350-7.450) Arterial Blood Partial Pressure CO2 30.3 mmHg (35.0-45.0) L Arterial Blood Partial Pressure O2 71.1 mmHg (75.0-100.0) L Arterial Blood HCO3 20.9 mmol/L (22.0-26.0) L Arterial Blood Oxygen Saturation 93.1 % (92.0-98.0) Arterial Blood Base Excess -2.4 Luis A Test Positive Current Medications Medications (Trade) Dose Ordered Sig/Hermes Route PRN Reason Start Time Stop Time Status Last Admin Dose Admin Acetaminophen (Tylenol) 650 mg EVERY 6 HOURS PRN NG Fever/Headache/Mild Pain 09/13/17 20:45 10/13/17 20:44 09/25/17 08:38 Amikacin Protocol (Amikacin pharmacy to dose) 1 ea DAILY PRN MISC Per rx protocol 09/23/17 11:45 10/23/17 11:44 Amikacin Sulfate 500 mg/Sodium Chloride 112 ml @ 112 mls/hr Q36H IV 09/25/17 11:30 10/02/17 11:29 Clonidine HCl (Catapres Tab) 0.1 mg Q4H PRN ORAL SBP>160 UNRELIEVED BY HYDRALAZ 09/16/17 16:45 10/15/17 16:59 Dextrose (Dextrose 50%) STAT PRN IV Hypoglycemia 09/13/17 15:00 10/13/17 14:59 Diltiazem HCl (Cardizem) 30 mg EVERY 8 HOURS NG 09/18/17 22:00 10/18/17 21:59 09/25/17 06:13 Fluconazole (Diflucan) 200 mg DAILY ORAL 09/23/17 12:30 09/30/17 12:29 09/25/17 08:38 Insulin Aspart (NovoLOG) EVERY 6 HOURS SUBQ 09/17/17 12:00 10/17/17 11:59 09/25/17 06:14 Ketotifen Fumarate (Zatidor) 1 drop DAILY BOTH EYES 09/26/17 09:00 10/25/17 08:59 Metronidazole (Flagyl) 500 mg Q8HR ORAL 09/23/17 14:00 09/30/17 13:59 09/25/17 06:13 Polyethylene Glycol (Miralax) 17 gm BEDTIME ORAL 09/14/17 21:00 10/14/17 20:59 09/18/17 20:42 Madelyn Frey M.D. Sep 25, 2017 11:24
[2017-09-25] MEDS: Amikacin 500 MG in NS 110 ML IV SCH (11:50)
--- NOTE | 2017-09-25 11:58 | Consultation ---
History of Present Illness General Date patient seen: Sep 25, 2017 Chief Complaint: Dyspnea/Respdistress Reason for Consultation: respiratory failure requiring prolonged vent Present Illness HPI 76-year-old female with past medical history significant for rheumatoid arthritis, osteoporosis, hypertension, Anaplastic anemia, depression, and Parkinson disease, who was presented to the hospital from home after it was noted to have shortness of breath progressively worsening day of admission. The patient was recently residing at the longterm prior to that was at [facility] due to the hallucination. Once stable she was discharged but then began to have SOB which prompted ED visit. Diagnosis with pneumonia and since has developed ARDS. Was previously intubated and on ventilatory support since. Prognosis is guarded but she is slowly improving with improved leukocytosis and decreased ventilatory support. Surgery called to evaluate for possible tracheostomy. patient seen, chart reviewed, case discussed. Allergies: Coded Allergies: No Known Allergies (Verified , 11/18/08) Medication History Scheduled Acetaminophen (Mapap), 500 MG PO BID, (Reported) Alendronate Sodium* (Fosamax*), 70 MG ORAL ONCE A WEEK, (Reported) Atenolol* (Tenormin*), 25 MG ORAL DAILY, (Reported) Calcium Carbonate/Vitamin D3 (Oyster Shell Calcium Tablet), 1 EACH PO DAILY, ( Reported) Cholecalciferol (Vitamin D3)* (Vitamin D*), 2,000 UNITS ORAL DAILY, (Reported) Cyanocobalamin (Vitamin B-12) (Vitamin B-12), 250 MCG PO DAILY, (Reported) Docusate Sodium (Dok), 100 MG PO BID, (Reported) Folic Acid* (Folic Acid*), 1 MG ORAL DAILY, (Reported) Glucosamine Sulfate 2KCL (Glucosamine Sulfate), 500 MG PO DAILY, (Reported) Hydroxychloroquine Sulfate* (Plaquenil*), 200 MG ORAL DAILY, (Reported) Losartan Potassium (Losartan Potassium), 100 MG ORAL BID, (Reported) Methotrexate Sodium* (Methotrexate*), 2.5 MG PO TID, (Reported) Omeprazole (Omeprazole), 20 MG ORAL DAILY, (Reported) Scheduled PRN Tramadol Hcl* (Ultram*), 50 MG ORAL BID PRN for For Pain, (Reported) Patient History Limited by: medical condition History Provided By: Family Member, Medical Record, PMD Healthcare decision maker Resuscitation status Full Code Advanced Directive on File Past Medical/Surgical History Past Medical/Surgical History: (1) Aspiration pneumonia (2) Protein-calorie malnutrition, severe (3) Diabetes mellitus (4) ARDS (adult respiratory distress syndrome) (5) Anemia (6) UTI (urinary tract infection) (7) Transaminitis (8) Respiratory failure (9) Arthritis, rheumatoid (10) Dyspnea (11) Parkinsons disease (12) Sepsis (13) GERD (gastroesophageal reflux disease) (14) Aplastic anemia (15) Pneumonia (16) HTN (hypertension) (17) Pulmonary edema (18) Electrolyte imbalance (19) Thrombocytopenia (20) Diabetes mellitus, type II (21) Leukocytosis Review of Systems ROS Narrative cannot obtain given patients current medical condition Physical Exam General Appearance: no apparent distress Lines, tubes and drains: peripheral HEENT: mucous membranes moist Neck: other - ET tube in place on vent Respiratory/Chest: on vent Cardiovascular/Chest: tachycardia Abdomen: soft, no organomegaly, no mass Extremities: normal inspection Skin Exam: warm/dry Neurologic: unresponsiveness, other - opens eyes with stimulation Last 24 Hour Vital Signs Date Time Temp Pulse Resp B/P (MAP) Pulse Ox O2 Delivery O2 Flow Rate FiO2 09/25/17 11:04 98 29 65 09/25/17 11:00 98 31 110/53 96 Mechanical Ventilator 65 09/25/17 10:00 102 30 118/52 94 Mechanical Ventilator 65 09/25/17 09:20 99 27 65 09/25/17 09:08 99.4 09/25/17 09:00 111 30 127/50 94 Mechanical Ventilator 65 09/25/17 08:38 100.3 09/25/17 08:00 115 09/25/17 08:00 65 09/25/17 08:00 100.3 118 30 131/53 96 Mechanical Ventilator 65 100.3 09/25/17 07:10 108 28 65 09/25/17 07:00 106 30 127/54 98 Mechanical Ventilator 65 09/25/17 06:20 98.6 103 34 124/58 96 Mechanical Ventilator 65 98.6 09/25/17 06:13 108 119/54 09/25/17 06:00 105 32 119/54 96 Mechanical Ventilator 65 09/25/17 05:05 104 31 65 09/25/17 05:00 100 32 118/54 96 Mechanical Ventilator 65 09/25/17 04:00 65 09/25/17 04:00 102 09/25/17 04:00 103 09/25/17 04:00 98.6 103 34 124/58 96 Mechanical Ventilator 65 98.6 09/25/17 03:11 95 31 65 18 03:00 95 30 138/61 96 Mechanical Ventilator 65 09/25/17 02:00 102 34 114/50 96 Mechanical Ventilator 65 09/25/17 01:00 96 34 108/54 96 Mechanical Ventilator 65 09/25/17 00:59 101 35 65 09/25/17 00:00 98.5 96 30 130/76 97 Mechanical Ventilator 65 98.5 09/25/17 00:00 98 09/24/17 23:00 97 32 65 09/24/17 23:00 96 30 110/51 97 Mechanical Ventilator 65 09/24/17 22:30 101 104/47 09/24/17 22:00 97 30 100/60 97 Mechanical Ventilator 65 09/24/17 21:00 99 30 104/47 97 Mechanical Ventilator 65 09/24/17 20:57 104 34 65 09/24/17 20:00 102 09/24/17 20:00 98.0 102 33 110/51 97 Mechanical Ventilator 65 98.0 09/24/17 20:00 65 09/24/17 19:00 98.4 98 25 104/49 99 Mechanical Ventilator 65 98.4 18 18:50 99 28 65 09/24/17 18:00 97 25 107/55 99 Mechanical Ventilator 65 09/24/17 17:00 101 26 110/50 98 Mechanical Ventilator 65 09/24/17 16:57 110 30 65 18 16:42 100.0 18 16:00 100.0 110 25 129/57 97 Mechanical Ventilator 65 100.0 18 16:00 65 18 16:00 110 18 15:00 110 26 100/63 98 Mechanical Ventilator 65 18 14:57 112 32 65 14/18 14:32 108 128/64 18 14:00 108 18 128/64 98 Mechanical Ventilator 65 09/24/18 13:00 105 18 127/58 95 Mechanical Ventilator 65 09/24/18 12:32 103 30 65 3/14/18 12:00 98.9 96 16 119/63 98 Mechanical Ventilator 75 98.9 09/24/17 12:00 98 09/24/17 12:00 75 Intake and Output 09/24/17 09/25/17 19:00 07:00 Intake Total 2225 ml 2440 ml Output Total 710 ml 550 ml Balance 1515 ml 1890 ml Intake Free Water 150 ml 160 ml IV Total 1375 ml 1500 ml Tube Feeding 600 ml 780 ml Other 100 ml Output Urine Total 710 ml 550 ml # Bowel Movements 2 3 Laboratory Tests Test 09/25/17 04:00 09/25/17 07:10 White Blood Count 13.5 K/UL (4.8-10.8) H Red Blood Count 2.47 M/UL (4.20-5.40) L Hemoglobin 8.0 G/DL (12.0-16.0) L Hematocrit 24.4 % (37.0-47.0) L Mean Corpuscular Volume 99 FL (80-99) Mean Corpuscular Hemoglobin 32.3 PG (27.0-31.0) H Mean Corpuscular Hemoglobin Concent 32.6 G/DL (32.0-36.0) Red Cell Distribution Width 24.3 % (11.6-14.8) H Platelet Count 45 K/UL (150-450) #L Mean Platelet Volume 9.7 FL (6.5-10.1) Neutrophils (%) (Auto) % (45.0-75.0) Lymphocytes (%) (Auto) % (20.0-45.0) Monocytes (%) (Auto) % (1.0-10.0) Eosinophils (%) (Auto) % (0.0-3.0) Basophils (%) (Auto) % (0.0-2.0) Differential Total Cells Counted 100 Neutrophils % (Manual) 83 % (45-75) H Lymphocytes % (Manual) 8 % (20-45) L Monocytes % (Manual) 9 % (1-10) Eosinophils % (Manual) 0 % (0-3) Basophils % (Manual) 0 % (0-2) Band Neutrophils 0 % (0-8) Nucleated Red Blood Cells 3 /100 WBC Platelet Estimate Decreased L Platelet Morphology Normal Polychromasia 2+ Hypochromasia 1+ Anisocytosis 2+ Sodium Level 152 MMOL/L (136-145) H Potassium Level 4.2 MMOL/L (3.5-5.1) Chloride Level 119 MMOL/L (98-107) H Carbon Dioxide Level 25 MMOL/L (21-32) Anion Gap 8 mmol/L (5-15) Blood Urea Nitrogen 42 mg/dL (7-18) H Creatinine 1.0 MG/DL (0.55-1.30) Estimat Glomerular Filtration Rate mL/min (>60) Glucose Level 209 MG/DL (74-106) H Calcium Level 7.9 MG/DL (8.5-10.1) L Phosphorus Level 4.4 MG/DL (2.5-4.9) Magnesium Level 2.1 MG/DL (1.8-2.4) Total Bilirubin 1.2 MG/DL (0.2-1.0) H Direct Bilirubin 0.5 MG/DL (0.0-0.3) H Aspartate Amino Transf (AST/SGOT) 72 U/L (15-37) H Alanine Aminotransferase (ALT/SGPT) 37 U/L (12-78) Alkaline Phosphatase 950 U/L (46-116) H Total Protein 5.4 G/DL (6.4-8.2) L Albumin 1.5 G/DL (3.4-5.0) L Globulin 3.9 g/dL Albumin/Globulin Ratio 0.4 (1.0-2.7) L Arterial Blood pH 7.456 (7.350-7.450) Arterial Blood Partial Pressure CO2 30.3 mmHg (35.0-45.0) L Arterial Blood Partial Pressure O2 71.1 mmHg (75.0-100.0) L Arterial Blood HCO3 20.9 mmol/L (22.0-26.0) L Arterial Blood Oxygen Saturation 93.1 % (92.0-98.0) Arterial Blood Base Excess -2.4 Luis A Test Positive Height (Feet): 5 Height (Inches): 0.00 Weight (Pounds): 109 Medications Current Medications Medications (Trade) Dose Ordered Sig/Hermes Route PRN Reason Start Time Stop Time Status Last Admin Dose Admin Acetaminophen (Tylenol) 650 mg EVERY 6 HOURS PRN NG Fever/Headache/Mild Pain 09/13/17 20:45 10/13/17 20:44 09/25/17 08:38 Amikacin Protocol (Amikacin pharmacy to dose) 1 ea DAILY PRN MISC Per rx protocol 09/23/17 11:45 10/23/17 11:44 Amikacin Sulfate 500 mg/Sodium Chloride 112 ml @ 112 mls/hr Q36H IV 09/25/17 11:30 10/02/17 11:29 Clonidine HCl (Catapres Tab) 0.1 mg Q4H PRN ORAL SBP>160 UNRELIEVED BY HYDRALAZ 09/16/17 16:45 10/15/17 16:59 Dextrose (Dextrose 50%) STAT PRN IV Hypoglycemia 09/13/17 15:00 10/13/17 14:59 Diltiazem HCl (Cardizem) 30 mg EVERY 8 HOURS NG 09/18/17 22:00 10/18/17 21:59 09/25/17 06:13 Insulin Aspart (NovoLOG) EVERY 6 HOURS SUBQ 09/17/17 12:00 10/17/17 11:59 09/25/17 06:14 Ketotifen Fumarate (Zatidor) 1 drop DAILY BOTH EYES 09/26/17 09:00 10/25/17 08:59 Metronidazole (Flagyl) 500 mg Q8HR ORAL 09/23/17 14:00 09/30/17 13:59 09/25/17 06:13 Polyethylene Glycol (Miralax) 17 gm BEDTIME ORAL 09/14/17 21:00 10/14/17 20:59 09/18/17 20:42 Assessment/Plan Problem List: (1) Respiratory failure Assessment & Plan: 76F multiple medical problems currently under care for suspected pneumonia/ARDS. respiratory failure with likely prolonged ventilatory requirement. she is candidate for trach. seems like she is turning the corner with improving leukocytosis, opening eyes, labs improved. CT/US/HIDA reviewed as well. Vent settings and ABG reviewed. will monitor for a few days. if continues to show signs of improvement would recommend trach given likely needing vent support for some time. thank you and will follow with recs. ICD Codes: J96.90 - Respiratory failure, unspecified, unspecified whether with hypoxia or hypercapnia SNOMED: [id number] Qualifiers: Qualified Codes: J96.00 - Acute respiratory failure, unspecified whether with hypoxia or hypercapnia Status: unchanged Adryan Echevarria Sep 25, 2017 11:57
--- NOTE | 2017-09-25 12:14 | Nephrology Progress Note ---
Assessment/Plan Problem List: (1) ARDS (adult respiratory distress syndrome) (2) Electrolyte imbalance (3) Thrombocytopenia Assessment Na 152 Platelets 45 K (1) ARDS (adult respiratory distress syndrome) (2) Aspiration pneumonia (3) Protein-calorie malnutrition, severe (4) Diabetes mellitus (5) Anemia , aplastic by history (6) DM (7) UTI (8) Electrolyte imbalance (9) HTN (10) Depression (11) RA . Plan doing poorly water via NGT Adjust BP meds K and Phos supplement as needed Monitor renal parameters and urine output avoid nephrotoxics per orders discussed with RN Left ventricular ejection fraction estimated to be 55 %. Subjective ROS Limited/Unobtainable: Yes Objective Objective Last 24 Hour Vital Signs Date Time Temp Pulse Resp B/P (MAP) Pulse Ox O2 Delivery O2 Flow Rate FiO2 09/25/17 12:00 98.9 96 31 116/52 95 Mechanical Ventilator 65 98.9 09/25/17 11:04 98 29 65 09/25/17 11:00 98 31 110/53 96 Mechanical Ventilator 65 09/25/17 10:00 102 30 118/52 94 Mechanical Ventilator 65 09/25/17 09:20 99 27 65 09/25/17 09:08 99.4 09/25/17 09:00 111 30 127/50 94 Mechanical Ventilator 65 09/25/17 08:38 100.3 09/25/17 08:00 115 09/25/17 08:00 65 09/25/17 08:00 100.3 118 30 131/53 96 Mechanical Ventilator 65 100.3 09/25/17 07:10 108 28 65 09/25/17 07:00 106 30 127/54 98 Mechanical Ventilator 65 09/25/17 06:20 98.6 103 34 124/58 96 Mechanical Ventilator 65 98.6 09/25/17 06:13 108 119/54 09/25/17 06:00 105 32 119/54 96 Mechanical Ventilator 65 09/25/17 05:05 104 31 65 09/25/17 05:00 100 32 118/54 96 Mechanical Ventilator 65 09/25/17 04:00 65 09/25/17 04:00 102 09/25/17 04:00 103 09/25/17 04:00 98.6 103 34 124/58 96 Mechanical Ventilator 65 98.6 09/25/17 03:11 95 31 65 09/25/17 03:00 95 30 138/61 96 Mechanical Ventilator 65 09/25/17 02:00 102 34 114/50 96 Mechanical Ventilator 65 09/25/17 01:00 96 34 108/54 96 Mechanical Ventilator 65 09/25/17 00:59 101 35 65 09/25/17 00:00 98.5 96 30 130/76 97 Mechanical Ventilator 65 98.5 09/25/17 00:00 98 09/24/17 23:00 97 32 65 09/24/17 23:00 96 30 110/51 97 Mechanical Ventilator 65 09/24/17 22:30 101 104/47 09/24/17 22:00 97 30 100/60 97 Mechanical Ventilator 65 09/24/17 21:00 99 30 104/47 97 Mechanical Ventilator 65 09/24/17 20:57 104 34 65 09/24/17 20:00 102 09/24/17 20:00 98.0 102 33 110/51 97 Mechanical Ventilator 65 98.0 09/24/17 20:00 65 09/24/17 19:00 98.4 98 25 104/49 99 Mechanical Ventilator 65 98.4 09/24/17 18:50 99 28 65 09/24/17 18:00 97 25 107/55 99 Mechanical Ventilator 65 09/24/17 17:00 101 26 110/50 98 Mechanical Ventilator 65 09/24/17 16:57 110 30 65 09/24/17 16:42 100.0 09/24/17 16:00 100.0 110 25 129/57 97 Mechanical Ventilator 65 100.0 09/24/17 16:00 65 09/24/17 16:00 110 09/24/17 15:00 110 26 100/63 98 Mechanical Ventilator 65 09/24/17 14:57 112 32 65 09/24/17 14:32 108 128/64 09/24/17 14:00 108 18 128/64 98 Mechanical Ventilator 65 09/24/17 13:00 105 18 127/58 95 Mechanical Ventilator 65 09/24/17 12:32 103 30 65 Intake and Output 09/24/17 09/25/17 19:00 07:00 Intake Total 2225 ml 2440 ml Output Total 710 ml 550 ml Balance 1515 ml 1890 ml Intake Free Water 150 ml 160 ml IV Total 1375 ml 1500 ml Tube Feeding 600 ml 780 ml Other 100 ml Output Urine Total 710 ml 550 ml # Bowel Movements 2 3 Laboratory Tests 09/25/17 04:00: White Blood Count 13.5H, Red Blood Count 2.47L, Hemoglobin 8.0L, Hematocrit 24.4L, Mean Corpuscular Volume 99, Mean Corpuscular Hemoglobin 32.3H, Mean Corpuscular Hemoglobin Concent 32.6, Red Cell Distribution Width 24.3H, Platelet Count 45#L, Mean Platelet Volume 9.7, Neutrophils (%) (Auto) , Lymphocytes (%) (Auto) , Monocytes (%) (Auto) , Eosinophils (%) (Auto) , Basophils (%) (Auto) , Differential Total Cells Counted 100, Neutrophils % ( Manual) 83H, Lymphocytes % (Manual) 8L, Monocytes % (Manual) 9, Eosinophils % ( Manual) 0, Basophils % (Manual) 0, Band Neutrophils 0, Nucleated Red Blood Cells 3, Platelet Estimate DecreasedL, Platelet Morphology Normal, Polychromasia 2+, Hypochromasia 1+, Anisocytosis 2+, Sodium Level 152H, Potassium Level 4.2, Chloride Level 119H, Carbon Dioxide Level 25, Anion Gap 8, Blood Urea Nitrogen 42H, Creatinine 1.0, Estimat Glomerular Filtration Rate , Glucose Level 209H, Calcium Level 7.9L, Phosphorus Level 4.4, Magnesium Level 2.1, Total Bilirubin 1.2H, Direct Bilirubin 0.5H, Aspartate Amino Transf (AST/ SGOT) 72H, Alanine Aminotransferase (ALT/SGPT) 37, Alkaline Phosphatase 950H, Total Protein 5.4L, Albumin 1.5L, Globulin 3.9, Albumin/Globulin Ratio 0.4L 09/25/17 07:10: Arterial Blood pH 7.456H, Arterial Blood Partial Pressure CO2 30.3L, Arterial Blood Partial Pressure O2 71.1L, Arterial Blood HCO3 20.9L, Arterial Blood Oxygen Saturation 93.1, Arterial Blood Base Excess -2.4, Luis A Test Positive Height (Feet): 5 Height (Inches): 0.00 Weight (Pounds): 109 General Appearance: lethargic, mild distress Cardiovascular: tachycardia Respiratory/Chest: decreased breath sounds Abdomen: distended Objective no change YAEL HANSEN Sep 25, 2017 12:14
--- NOTE | 2017-09-25 15:21 | Cardiac Electrophysiology PN ---
Assessment/Plan Assessment/Plan 1. Respiratory failure, due to underlying ARDS , pneumonia,. Intubated on the vent. Already ruled out for myocardial infarction. Now on 60% Fio2 with PEEP of 5 Possible tracheostomy on Friday 2. Left bundle-branch block. No evidence of advanced heart block. 3. HTN and diastolic dysfunction. On Cardizem 30 q8 hr. Echo EF 55% 4. Hypernatremia and azotemia. Off Lasix. Fluids per Dr Mayer 5. Pneumonia and sepsis on IV antibiotics by Dr. Hunter. 6. Psychiatric disorder. 7. Anasarca. 3rd spacing. Lasix when OK with Dr Mayer 8. Anemia with Hb 6.6 s/p PRBC. CT chest abdomen and pelvis without contrast no acute finding 9. Severe thrombocytopenia. S/P platelet transfusion DW RN Subjective Subjective Intubated on Vent in ICU in sinus tach. Got @ platelet and One PRBC 2 days ago. On 60% Fio2 and PEEP of 5 Objective Last 24 Hour Vital Signs Date Time Temp Pulse Resp B/P (MAP) Pulse Ox O2 Delivery O2 Flow Rate FiO2 09/25/17 14:27 104 127/54 09/25/17 14:00 104 32 127/54 93 Mechanical Ventilator 60 09/25/17 13:06 97 31 65 09/25/17 13:00 94 31 124/54 93 Mechanical Ventilator 60 09/25/17 12:00 65 09/25/17 12:00 98 09/25/17 12:00 98.9 96 31 116/52 95 Mechanical Ventilator 65 98.9 09/25/17 11:04 98 29 65 09/25/17 11:00 98 31 110/53 96 Mechanical Ventilator 65 09/25/17 10:00 102 30 118/52 94 Mechanical Ventilator 65 09/25/17 09:20 99 27 65 09/25/17 09:08 99.4 09/25/17 09:00 111 30 127/50 94 Mechanical Ventilator 65 09/25/17 08:38 100.3 09/25/17 08:00 115 09/25/17 08:00 65 09/25/17 08:00 100.3 118 30 131/53 96 Mechanical Ventilator 65 100.3 09/25/17 07:10 108 28 65 09/25/17 07:00 106 30 127/54 98 Mechanical Ventilator 65 09/25/17 06:20 98.6 103 34 124/58 96 Mechanical Ventilator 65 98.6 09/25/17 06:13 108 119/54 09/25/17 06:00 105 32 119/54 96 Mechanical Ventilator 65 09/25/17 05:05 104 31 65 09/25/17 05:00 100 32 118/54 96 Mechanical Ventilator 65 09/25/17 04:00 65 09/25/17 04:00 102 09/25/17 04:00 103 09/25/17 04:00 98.6 103 34 124/58 96 Mechanical Ventilator 65 98.6 09/25/17 03:11 95 31 65 09/25/17 03:00 95 30 138/61 96 Mechanical Ventilator 65 09/25/17 02:00 102 34 114/50 96 Mechanical Ventilator 65 09/25/17 01:00 96 34 108/54 96 Mechanical Ventilator 65 09/25/17 00:59 101 35 65 09/25/17 00:00 98.5 96 30 130/76 97 Mechanical Ventilator 65 98.5 09/25/17 00:00 98 09/24/17 23:00 97 32 65 09/24/17 23:00 96 30 110/51 97 Mechanical Ventilator 65 09/24/17 22:30 101 104/47 09/24/17 22:00 97 30 100/60 97 Mechanical Ventilator 65 09/24/17 21:00 99 30 104/47 97 Mechanical Ventilator 65 09/24/17 20:57 104 34 65 09/24/17 20:00 102 09/24/17 20:00 98.0 102 33 110/51 97 Mechanical Ventilator 65 98.0 09/24/17 20:00 65 09/24/17 19:00 98.4 98 25 104/49 99 Mechanical Ventilator 65 98.4 09/24/17 18:50 99 28 65 09/24/17 18:00 97 25 107/55 99 Mechanical Ventilator 65 09/24/17 17:00 101 26 110/50 98 Mechanical Ventilator 65 09/24/17 16:57 110 30 65 09/24/17 16:42 100.0 09/24/17 16:00 100.0 110 25 129/57 97 Mechanical Ventilator 65 100.0 09/24/17 16:00 65 09/24/17 16:00 110 Intake and Output 09/24/17 09/25/17 19:00 07:00 Intake Total 2225 ml 2440 ml Output Total 710 ml 550 ml Balance 1515 ml 1890 ml Intake Free Water 150 ml 160 ml IV Total 1375 ml 1500 ml Tube Feeding 600 ml 780 ml Other 100 ml Output Urine Total 710 ml 550 ml # Bowel Movements 2 3 Laboratory Tests Test 09/25/17 04:00 09/25/17 07:10 White Blood Count 13.5 K/UL (4.8-10.8) H Red Blood Count 2.47 M/UL (4.20-5.40) L Hemoglobin 8.0 G/DL (12.0-16.0) L Hematocrit 24.4 % (37.0-47.0) L Mean Corpuscular Volume 99 FL (80-99) Mean Corpuscular Hemoglobin 32.3 PG (27.0-31.0) H Mean Corpuscular Hemoglobin Concent 32.6 G/DL (32.0-36.0) Red Cell Distribution Width 24.3 % (11.6-14.8) H Platelet Count 45 K/UL (150-450) #L Mean Platelet Volume 9.7 FL (6.5-10.1) Neutrophils (%) (Auto) % (45.0-75.0) Lymphocytes (%) (Auto) % (20.0-45.0) Monocytes (%) (Auto) % (1.0-10.0) Eosinophils (%) (Auto) % (0.0-3.0) Basophils (%) (Auto) % (0.0-2.0) Differential Total Cells Counted 100 Neutrophils % (Manual) 83 % (45-75) H Lymphocytes % (Manual) 8 % (20-45) L Monocytes % (Manual) 9 % (1-10) Eosinophils % (Manual) 0 % (0-3) Basophils % (Manual) 0 % (0-2) Band Neutrophils 0 % (0-8) Nucleated Red Blood Cells 3 /100 WBC Platelet Estimate Decreased L Platelet Morphology Normal Polychromasia 2+ Hypochromasia 1+ Anisocytosis 2+ Sodium Level 152 MMOL/L (136-145) H Potassium Level 4.2 MMOL/L (3.5-5.1) Chloride Level 119 MMOL/L (98-107) H Carbon Dioxide Level 25 MMOL/L (21-32) Anion Gap 8 mmol/L (5-15) Blood Urea Nitrogen 42 mg/dL (7-18) H Creatinine 1.0 MG/DL (0.55-1.30) Estimat Glomerular Filtration Rate mL/min (>60) Glucose Level 209 MG/DL (74-106) H Calcium Level 7.9 MG/DL (8.5-10.1) L Phosphorus Level 4.4 MG/DL (2.5-4.9) Magnesium Level 2.1 MG/DL (1.8-2.4) Total Bilirubin 1.2 MG/DL (0.2-1.0) H Direct Bilirubin 0.5 MG/DL (0.0-0.3) H Aspartate Amino Transf (AST/SGOT) 72 U/L (15-37) H Alanine Aminotransferase (ALT/SGPT) 37 U/L (12-78) Alkaline Phosphatase 950 U/L (46-116) H Total Protein 5.4 G/DL (6.4-8.2) L Albumin 1.5 G/DL (3.4-5.0) L Globulin 3.9 g/dL Albumin/Globulin Ratio 0.4 (1.0-2.7) L Arterial Blood pH 7.456 (7.350-7.450) Arterial Blood Partial Pressure CO2 30.3 mmHg (35.0-45.0) L Arterial Blood Partial Pressure O2 71.1 mmHg (75.0-100.0) L Arterial Blood HCO3 20.9 mmol/L (22.0-26.0) L Arterial Blood Oxygen Saturation 93.1 % (92.0-98.0) Arterial Blood Base Excess -2.4 Luis A Test Positive Objective HEAD AND NECK: Orally intubated. NG tube LUNGS: Coarse rhonchi bilaterally CARDIOVASCULAR: Tachy S1 and S2.No murmur ABDOMEN: Soft. EXTREMITIES: 1+ pitting edema. ROLF OLIVIA Sep 25, 2017 15:20
--- NOTE | 2017-09-25 17:31 | Internal Med Progress Note ---
Subjective Date of Service: Sep 25, 2017 Physician Name Sina Bowens Attending Physician Jesus Barahoan MD Current Medications Medications (Trade) Dose Ordered Sig/Hermes Route PRN Reason Start Time Stop Time Status Last Admin Dose Admin Acetaminophen (Tylenol) 650 mg EVERY 6 HOURS PRN NG Fever/Headache/Mild Pain 09/13/17 20:45 10/13/17 20:44 09/25/17 08:38 Amikacin Protocol (Amikacin pharmacy to dose) 1 ea DAILY PRN MISC Per rx protocol 09/23/17 11:45 10/23/17 11:44 Amikacin Sulfate 500 mg/Sodium Chloride 112 ml @ 112 mls/hr Q36H IV 09/25/17 11:30 10/02/17 11:29 09/25/17 11:50 Clonidine HCl (Catapres Tab) 0.1 mg Q4H PRN ORAL SBP>160 UNRELIEVED BY HYDRALAZ 09/16/17 16:45 10/15/17 16:59 Dextrose (Dextrose 50%) STAT PRN IV Hypoglycemia 09/13/17 15:00 10/13/17 14:59 Diltiazem HCl (Cardizem) 30 mg EVERY 8 HOURS NG 09/18/17 22:00 10/18/17 21:59 09/25/17 14:27 Insulin Aspart (NovoLOG) EVERY 6 HOURS SUBQ 09/17/17 12:00 10/17/17 11:59 09/25/17 12:07 Ketotifen Fumarate (Zatidor) 1 drop DAILY BOTH EYES 09/26/17 09:00 10/25/17 08:59 Metronidazole (Flagyl) 500 mg Q8HR ORAL 09/23/17 14:00 09/30/17 13:59 09/25/17 14:27 Polyethylene Glycol (Miralax) 17 gm BEDTIME ORAL 09/14/17 21:00 10/14/17 20:59 09/18/17 20:42 Allergies: Coded Allergies: No Known Allergies (Verified , 11/18/08) ROS Limited/Unobtainable: Yes Subjective 76 YO F admitted with Shortness of breath, now respiratory failure. Intubated and sedated. Cover for Internal Med-Dr. Barahona. ICU Objective Last Vital Signs Date Time Temp Pulse Resp B/P (MAP) Pulse Ox O2 Delivery O2 Flow Rate FiO2 09/25/17 17:00 98 28 108/60 96 Mechanical Ventilator 60 09/25/17 16:25 98.6 98.6 Laboratory Tests Test 09/25/17 04:00 09/25/17 07:10 White Blood Count 13.5 K/UL (4.8-10.8) H Red Blood Count 2.47 M/UL (4.20-5.40) L Hemoglobin 8.0 G/DL (12.0-16.0) L Hematocrit 24.4 % (37.0-47.0) L Mean Corpuscular Volume 99 FL (80-99) Mean Corpuscular Hemoglobin 32.3 PG (27.0-31.0) H Mean Corpuscular Hemoglobin Concent 32.6 G/DL (32.0-36.0) Red Cell Distribution Width 24.3 % (11.6-14.8) H Platelet Count 45 K/UL (150-450) #L Mean Platelet Volume 9.7 FL (6.5-10.1) Neutrophils (%) (Auto) % (45.0-75.0) Lymphocytes (%) (Auto) % (20.0-45.0) Monocytes (%) (Auto) % (1.0-10.0) Eosinophils (%) (Auto) % (0.0-3.0) Basophils (%) (Auto) % (0.0-2.0) Differential Total Cells Counted 100 Neutrophils % (Manual) 83 % (45-75) H Lymphocytes % (Manual) 8 % (20-45) L Monocytes % (Manual) 9 % (1-10) Eosinophils % (Manual) 0 % (0-3) Basophils % (Manual) 0 % (0-2) Band Neutrophils 0 % (0-8) Nucleated Red Blood Cells 3 /100 WBC Platelet Estimate Decreased L Platelet Morphology Normal Polychromasia 2+ Hypochromasia 1+ Anisocytosis 2+ Sodium Level 152 MMOL/L (136-145) H Potassium Level 4.2 MMOL/L (3.5-5.1) Chloride Level 119 MMOL/L (98-107) H Carbon Dioxide Level 25 MMOL/L (21-32) Anion Gap 8 mmol/L (5-15) Blood Urea Nitrogen 42 mg/dL (7-18) H Creatinine 1.0 MG/DL (0.55-1.30) Estimat Glomerular Filtration Rate mL/min (>60) Glucose Level 209 MG/DL (74-106) H Calcium Level 7.9 MG/DL (8.5-10.1) L Phosphorus Level 4.4 MG/DL (2.5-4.9) Magnesium Level 2.1 MG/DL (1.8-2.4) Total Bilirubin 1.2 MG/DL (0.2-1.0) H Direct Bilirubin 0.5 MG/DL (0.0-0.3) H Aspartate Amino Transf (AST/SGOT) 72 U/L (15-37) H Alanine Aminotransferase (ALT/SGPT) 37 U/L (12-78) Alkaline Phosphatase 950 U/L (46-116) H Total Protein 5.4 G/DL (6.4-8.2) L Albumin 1.5 G/DL (3.4-5.0) L Globulin 3.9 g/dL Albumin/Globulin Ratio 0.4 (1.0-2.7) L Arterial Blood pH 7.456 (7.350-7.450) Arterial Blood Partial Pressure CO2 30.3 mmHg (35.0-45.0) L Arterial Blood Partial Pressure O2 71.1 mmHg (75.0-100.0) L Arterial Blood HCO3 20.9 mmol/L (22.0-26.0) L Arterial Blood Oxygen Saturation 93.1 % (92.0-98.0) Arterial Blood Base Excess -2.4 Luis A Test Positive Intake and Output 09/24/17 09/25/17 19:00 07:00 Intake Total 2225 ml 2440 ml Output Total 710 ml 550 ml Balance 1515 ml 1890 ml Intake Free Water 150 ml 160 ml IV Total 1375 ml 1500 ml Tube Feeding 600 ml 780 ml Other 100 ml Output Urine Total 710 ml 550 ml # Bowel Movements 2 3 Objective General Appearance: lethargic, thin EENT: normal ENT inspection Neck: non-tender, normal alignment, supple Cardiovascular: normal peripheral pulses, normal rate, regular rhythm, no gallop/murmur, no JVD Respiratory/Chest: Mechanical vent; respiratory distress, crackles/rales, rhonchi - bilaterally, expiratory wheezing Abdomen: normal bowel sounds, non tender, soft, no organomegaly, no mass Skin: normal pigmentation, warm/dry Assessment/Plan Problem List: (1) HTN (hypertension) Assessment & Plan: Currently hypotensive. (2) Arthritis, rheumatoid (3) Parkinsons disease (4) Aplastic anemia (5) GERD (gastroesophageal reflux disease) (6) Respiratory failure Assessment & Plan: Cont vent per pulmonary (7) Pneumonia (8) Dyspnea (9) Sepsis Assessment & Plan: Blood culture neg. Continue Amikacin and fluconazole per ID (10) ARDS (adult respiratory distress syndrome) Assessment & Plan: See pulmonary note (11) UTI (urinary tract infection) Assessment & Plan: E.Coli. Continue levaquin (12) Anemia Assessment & Plan: S/P Transfusion 2 units PRBC (13) Diabetes mellitus, type II Assessment & Plan: Continue novolog sliding scale (14) Leukocytosis Assessment & Plan: Worsening. See ID note. Start amikacin and fluconazole (15) Thrombocytopenia Status: not improved SINA BOWENS Sep 25, 2017 17:31
[2017-09-25] MEDS: Miralax 17gm pkt ORAL SCH (20:55)
--- NOTE | 2017-09-25 22:44 | General Progress Note ---
Assessment/Plan Problem List: (1) Arthritis, rheumatoid ICD Codes: M06.9 - Rheumatoid arthritis, unspecified SNOMED: 35843834 (2) Aspiration pneumonia ICD Codes: J69.0 - Pneumonitis due to inhalation of food and vomit SNOMED: 863159986 (3) Diabetes mellitus ICD Codes: E11.9 - Type 2 diabetes mellitus without complications SNOMED: 97725428 (4) ARDS (adult respiratory distress syndrome) ICD Codes: J80 - Acute respiratory distress syndrome SNOMED: 94492069 (5) Transaminitis ICD Codes: R74.0 - Nonspecific elevation of levels of transaminase and lactic acid dehydrogenase [LDH] SNOMED: 552633510, 038071209 (6) Dyspnea ICD Codes: R06.00 - Dyspnea, unspecified SNOMED: 605294853 (7) Parkinsons disease ICD Codes: G20 - Parkinson's disease SNOMED: 35791672 (8) Sepsis ICD Codes: A41.9 - Sepsis, unspecified organism SNOMED: 74364489 (9) GERD (gastroesophageal reflux disease) ICD Codes: K21.9 - Gastro-esophageal reflux disease without esophagitis SNOMED: 955361980 (10) Aplastic anemia ICD Codes: D61.9 - Aplastic anemia, unspecified SNOMED: 631954008 (11) Pneumonia ICD Codes: J18.9 - Pneumonia, unspecified organism SNOMED: 922657522 (12) HTN (hypertension) ICD Codes: I10 - Essential (primary) hypertension SNOMED: 25220270 Assessment/Plan Encephalopathy, agitation, psychotic disorder. -cont current meds -ativan prn Subjective Date patient seen: Sep 25, 2017 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: Reports: anxiety, depressed Allergies: Coded Allergies: No Known Allergies (Verified , 11/18/08) Objective Last 24 Hour Vital Signs Date Time Temp Pulse Resp B/P (MAP) Pulse Ox O2 Delivery O2 Flow Rate FiO2 09/25/17 22:14 91 115/57 09/25/17 20:51 99 29 60 09/25/17 19:30 98 30 60 09/25/17 19:00 95 28 118/54 96 Mechanical Ventilator 60 09/25/17 18:00 96 28 127/57 96 Mechanical Ventilator 60 09/25/17 17:26 99 32 65 09/25/17 17:00 98 28 108/60 96 Mechanical Ventilator 60 09/25/17 16:25 98.6 98.6 09/25/17 16:00 95 09/25/17 16:00 65 09/25/17 16:00 98.6 95 28 112/43 94 Mechanical Ventilator 60 98.6 09/25/17 15:00 98 32 107/48 94 Mechanical Ventilator 60 09/25/17 14:27 104 127/54 09/25/17 14:00 104 32 127/54 93 Mechanical Ventilator 60 09/25/17 13:06 97 31 65 09/25/17 13:00 94 31 124/54 93 Mechanical Ventilator 60 09/25/17 12:00 65 09/25/17 12:00 98 09/25/17 12:00 98.9 96 31 116/52 95 Mechanical Ventilator 65 98.9 09/25/17 11:04 98 29 65 09/25/17 11:00 98 31 110/53 96 Mechanical Ventilator 65 09/25/17 10:00 102 30 118/52 94 Mechanical Ventilator 65 09/25/17 09:20 99 27 65 09/25/17 09:08 99.4 09/25/17 09:00 111 30 127/50 94 Mechanical Ventilator 65 09/25/17 08:38 100.3 09/25/17 08:00 115 09/25/17 08:00 65 09/25/17 08:00 100.3 118 30 131/53 96 Mechanical Ventilator 65 100.3 09/25/17 07:10 108 28 65 09/25/17 07:00 106 30 127/54 98 Mechanical Ventilator 65 09/25/17 06:20 98.6 103 34 124/58 96 Mechanical Ventilator 65 98.6 09/25/17 06:13 108 119/54 09/25/17 06:00 105 32 119/54 96 Mechanical Ventilator 65 09/25/17 05:05 104 31 65 09/25/17 05:00 100 32 118/54 96 Mechanical Ventilator 65 09/25/17 04:00 65 09/25/17 04:00 102 09/25/17 04:00 103 09/25/17 04:00 98.6 103 34 124/58 96 Mechanical Ventilator 65 98.6 09/25/17 03:11 95 31 65 09/25/17 03:00 95 30 138/61 96 Mechanical Ventilator 65 09/25/17 02:00 102 34 114/50 96 Mechanical Ventilator 65 09/25/17 01:00 96 34 108/54 96 Mechanical Ventilator 65 09/25/17 00:59 101 35 65 09/25/17 00:00 98.5 96 30 130/76 97 Mechanical Ventilator 65 98.5 09/25/17 00:00 98 09/24/17 23:00 97 32 65 09/24/17 23:00 96 30 110/51 97 Mechanical Ventilator 65 Intake and Output 09/24/17 09/25/17 19:00 07:00 Intake Total 2225 ml 2440 ml Output Total 710 ml 550 ml Balance 1515 ml 1890 ml Intake Free Water 150 ml 160 ml IV Total 1375 ml 1500 ml Tube Feeding 600 ml 780 ml Other 100 ml Output Urine Total 710 ml 550 ml # Bowel Movements 2 3 Laboratory Tests 09/25/17 04:00: White Blood Count 13.5H, Red Blood Count 2.47L, Hemoglobin 8.0L, Hematocrit 24.4L, Mean Corpuscular Volume 99, Mean Corpuscular Hemoglobin 32.3H, Mean Corpuscular Hemoglobin Concent 32.6, Red Cell Distribution Width 24.3H, Platelet Count 45#L, Mean Platelet Volume 9.7, Neutrophils (%) (Auto) , Lymphocytes (%) (Auto) , Monocytes (%) (Auto) , Eosinophils (%) (Auto) , Basophils (%) (Auto) , Differential Total Cells Counted 100, Neutrophils % ( Manual) 83H, Lymphocytes % (Manual) 8L, Monocytes % (Manual) 9, Eosinophils % ( Manual) 0, Basophils % (Manual) 0, Band Neutrophils 0, Nucleated Red Blood Cells 3, Platelet Estimate DecreasedL, Platelet Morphology Normal, Polychromasia 2+, Hypochromasia 1+, Anisocytosis 2+, Sodium Level 152H, Potassium Level 4.2, Chloride Level 119H, Carbon Dioxide Level 25, Anion Gap 8, Blood Urea Nitrogen 42H, Creatinine 1.0, Estimat Glomerular Filtration Rate , Glucose Level 209H, Calcium Level 7.9L, Phosphorus Level 4.4, Magnesium Level 2.1, Total Bilirubin 1.2H, Direct Bilirubin 0.5H, Aspartate Amino Transf (AST/ SGOT) 72H, Alanine Aminotransferase (ALT/SGPT) 37, Alkaline Phosphatase 950H, Total Protein 5.4L, Albumin 1.5L, Globulin 3.9, Albumin/Globulin Ratio 0.4L 09/25/17 07:10: Arterial Blood pH 7.456H, Arterial Blood Partial Pressure CO2 30.3L, Arterial Blood Partial Pressure O2 71.1L, Arterial Blood HCO3 20.9L, Arterial Blood Oxygen Saturation 93.1, Arterial Blood Base Excess -2.4, Luis A Test Positive Height (Feet): 5 Height (Inches): 0.00 Weight (Pounds): 109 General Appearance: no apparent distress, lethargic, confused, agitated Dary Nixon M.D. Sep 25, 2017 22:44
[2017-09-26] VITALS (25 sets, daily range): BP systolic 101–132; BP diastolic 26–63
[2017-09-26] MEDS: NovoLOG Insulin Flexpen SUBQ SCH ×4 (00:27→23:32)
[2017-09-26] MEDS: metroNIDAZOLE 500mg tab ORAL SCH ×3 (06:01→21:44)
[2017-09-26] MEDS: dilTIAZem HCl 30mg tab NG SCH ×3 (06:01→21:44)
[2017-09-26 06:02] LABS: HEMATOCRIT 26.8 % (37.0-47.0); HEMOGLOBIN 8.6 G/DL (12.0-16.0); MEAN CORPUSCULAR VOLUME 102 FL (80-99); PLATELET COUNT 26 K/UL (150-450); RED BLOOD COUNT 2.63 M/UL (4.20-5.40); RED CELL DISTRIBUTION WIDTH 24.9 % (11.6-14.8); WHITE BLOOD COUNT 13.9 K/UL (4.8-10.8)
[2017-09-26 06:29] LABS: PHOSPHORUS 5.3 MG/DL (2.5-4.9)
[2017-09-26 06:52] LABS: ALANINE AMINOTRANSFERASE 29 U/L (12-78); ALBUMIN 1.5 G/DL (3.4-5.0); ALBUMIN/GLOBULIN RATIO 0.4 (1.0-2.7); ALKALINE PHOSPHATASE 830 U/L (46-116); ANION GAP 9 mmol/L (5-15); ASPARTATE AMINO TRANSFERASE 42 U/L (15-37); BILIRUBIN,TOTAL 1.2 MG/DL (0.2-1.0); BLOOD UREA NITROGEN 45 mg/dL (7-18); CALCIUM 8.1 MG/DL (8.5-10.1); CARBON DIOXIDE 26 MMOL/L (21-32); CHLORIDE 120 MMOL/L (98-107); POTASSIUM 4.3 MMOL/L (3.5-5.1); SODIUM 155 MMOL/L (136-145)
[2017-09-26 06:54] LABS: BILIRUBIN,DIRECT 0.6 MG/DL (0.0-0.3)
[2017-09-26] MEDS: Ketotifen Fumarate 0.035% 5ml BOTH EYES SCH (09:00)
--- NOTE | 2017-09-26 11:24 | Pulmonolgy Critical Care Note ---
Critical Care - Asmt/Plan Problems: (1) ARDS (adult respiratory distress syndrome) (2) Aspiration pneumonia (3) Anemia (4) Thrombocytopenia (5) Diabetes mellitus (6) Protein-calorie malnutrition, severe Assessment/Plan: improving overall Respiratory: monitor respiratory rate, adjust FIO2, CXR, other - fio2 is down to 60% Cardiac: continue to monitor HR/BP Renal: F/U I&O, keep IV fluid Infectious Disease: check cultures Gastrointestinal: continue feedings/current rate Endocrine: monitor blood sugar, check TSH, continue sliding scale insulin Hematologic: monitor H/H, transfuse if hgb<8.5 Neurologic: PRN Morphine, keep patient comfortable Prophylaxis: Protonix Notes Reviewed: cardio Discussed with: nurses, case monitor, other - pt will need trach, Critical Care - Objective Last 24 Hour Vital Signs Date Time Temp Pulse Resp B/P (MAP) Pulse Ox O2 Delivery O2 Flow Rate FiO2 09/26/17 11:03 95 27 60 09/26/17 10:00 98.8 102 22 118/45 94 98.8 09/26/17 09:00 98 25 110/52 95 Mechanical Ventilator 60 09/26/17 08:46 100 33 60 09/26/17 08:00 95 09/26/17 08:00 98.9 104 27 119/53 93 Mechanical Ventilator 60 98.9 09/26/17 08:00 60 09/26/17 07:17 100 32 60 09/26/17 07:00 101 33 117/49 93 Mechanical Ventilator 60 09/26/17 06:01 100 122/52 09/26/17 06:00 105 33 120/60 93 Mechanical Ventilator 60 09/26/17 05:00 101 33 125/63 93 Mechanical Ventilator 60 09/26/17 04:56 100 31 60 09/26/17 04:00 60 09/26/17 04:00 95 09/26/17 04:00 99.4 97 32 107/47 96 Mechanical Ventilator 60 99.4 09/26/17 03:00 97 32 107/47 96 Mechanical Ventilator 60 09/26/17 02:57 99 28 60 09/26/17 02:00 99 34 107/47 96 Mechanical Ventilator 60 09/26/17 01:00 98 29 121/57 98 Mechanical Ventilator 60 09/26/17 00:51 97 27 60 09/26/17 00:00 96 09/26/17 00:00 98.8 95 29 112/50 98 Mechanical Ventilator 60 98.8 09/26/17 00:00 65 09/25/17 23:00 95 29 115/50 98 Mechanical Ventilator 60 09/25/17 22:47 94 30 60 09/25/17 22:14 91 115/57 09/25/17 22:00 95 29 125/57 97 Mechanical Ventilator 60 09/25/17 21:00 92 26 115/57 96 Mechanical Ventilator 60 09/25/17 20:51 99 29 60 09/25/17 20:00 65 09/25/17 20:00 99.0 96 28 116/54 96 Mechanical Ventilator 60 99.0 09/25/17 19:30 98 30 60 09/25/17 19:00 95 28 118/54 96 Mechanical Ventilator 60 09/25/17 18:00 96 28 127/57 96 Mechanical Ventilator 60 09/25/17 17:26 99 32 65 09/25/17 17:00 98 28 108/60 96 Mechanical Ventilator 60 09/25/17 16:25 98.6 98.6 09/25/17 16:00 95 09/25/17 16:00 65 09/25/17 16:00 98.6 95 28 112/43 94 Mechanical Ventilator 60 98.6 09/25/17 15:00 98 32 107/48 94 Mechanical Ventilator 60 09/25/17 14:27 104 127/54 09/25/17 14:00 104 32 127/54 93 Mechanical Ventilator 60 09/25/17 13:06 97 31 65 09/25/17 13:00 94 31 124/54 93 Mechanical Ventilator 60 09/25/17 12:00 65 09/25/17 12:00 98 09/25/17 12:00 98.9 96 31 116/52 95 Mechanical Ventilator 65 98.9 Status: awake Condition: critical HEENT: atraumatic Neck: full ROM Lungs: chest wall tender Heart: HR/BP unstable, regular Abdomen: active bowel sounds, feeding tube Extremities: edema Decubiti: location Accucheck: 106 Critical Care - Subjective ROS Limited/Unobtainable: No ICU Day: 15 Condition: critical EKG Rhythm: Sinus Rhythm FI02: 60 Vent Support Breath Rate: 18 Vent Support Mode: AC Vent Tidal Volume: 500 Sputum Amount: Small PEEP: 5.0 PIP: 42 Tube Feeding Amount: 45 I&O: Intake and Output 09/25/17 09/26/17 18:59 06:59 Intake Total 1082 ml 720 ml Output Total 490 ml 520 ml Balance 592 ml 200 ml Intake Free Water 100 ml 180 ml IV Total 237 ml Tube Feeding 645 ml 540 ml Other 100 ml Output Urine Total 490 ml 520 ml # Bowel Movements 2 6 CXR: no change ET-Tube: 7.5 ET Position: 21 Labs: Laboratory Tests Test 09/26/17 04:50 White Blood Count 13.9 K/UL (4.8-10.8) H Red Blood Count 2.63 M/UL (4.20-5.40) L Hemoglobin 8.6 G/DL (12.0-16.0) L Hematocrit 26.8 % (37.0-47.0) L Mean Corpuscular Volume 102 FL (80-99) H Mean Corpuscular Hemoglobin 32.6 PG (27.0-31.0) H Mean Corpuscular Hemoglobin Concent 31.9 G/DL (32.0-36.0) L Red Cell Distribution Width 24.9 % (11.6-14.8) H Platelet Count 26 K/UL (150-450) L Mean Platelet Volume 14.9 FL (6.5-10.1) H Neutrophils (%) (Auto) % (45.0-75.0) Lymphocytes (%) (Auto) % (20.0-45.0) Monocytes (%) (Auto) % (1.0-10.0) Eosinophils (%) (Auto) % (0.0-3.0) Basophils (%) (Auto) % (0.0-2.0) Differential Total Cells Counted 100 Neutrophils % (Manual) 90 % (45-75) H Lymphocytes % (Manual) 3 % (20-45) L Monocytes % (Manual) 4 % (1-10) Eosinophils % (Manual) 2 % (0-3) Basophils % (Manual) 0 % (0-2) Band Neutrophils 1 % (0-8) Platelet Estimate Decreased L Platelet Morphology Normal Polychromasia 1+ Hypochromasia 1+ Anisocytosis 3+ Macrocytosis 1+ Sodium Level 155 MMOL/L (136-145) H Potassium Level 4.3 MMOL/L (3.5-5.1) Chloride Level 120 MMOL/L (98-107) H Carbon Dioxide Level 26 MMOL/L (21-32) Anion Gap 9 mmol/L (5-15) Blood Urea Nitrogen 45 mg/dL (7-18) H Creatinine 1.0 MG/DL (0.55-1.30) Estimat Glomerular Filtration Rate mL/min (>60) Glucose Level 106 MG/DL (74-106) # Calcium Level 8.1 MG/DL (8.5-10.1) L Phosphorus Level 5.3 MG/DL (2.5-4.9) H Magnesium Level 2.1 MG/DL (1.8-2.4) Total Bilirubin 1.2 MG/DL (0.2-1.0) H Direct Bilirubin 0.6 MG/DL (0.0-0.3) H Aspartate Amino Transf (AST/SGOT) 42 U/L (15-37) H Alanine Aminotransferase (ALT/SGPT) 29 U/L (12-78) Alkaline Phosphatase 830 U/L (46-116) H Total Protein 5.0 G/DL (6.4-8.2) L Albumin 1.5 G/DL (3.4-5.0) L Globulin 3.5 g/dL Albumin/Globulin Ratio 0.4 (1.0-2.7) L Tayler Liu MD Sep 26, 2017 11:23
--- NOTE | 2017-09-26 11:55 | Infectious Diseases Prog Note ---
Assessment/Plan Assessment/Plan ASSESSMENT: The patient is a 76-year-old female w Fever, SP Leukocytosis , improving- r/o new infection, JOSETTE, bacteremia -Cdiff neg -09/22 sp cx C.a lbicans, Bcx NTD -u/a wbc 10-15, nit neg, leuk +2; ucx >100k C. albicans -Fungal sp cx p Community-acquired vs healthcare-associated pneumonia (the patient has been recently hospitalized in [facility]). -now ARDS- r/o fungal PNA -CT chest 09/23: Diffuse extensive pulmonary parenchymal disease, with dense consolidation interspersed with groundglass opacities. Appearance nonspecific, possibilities include pulmonary edema, pneumonia, ARDS, hemorrhage. Bilateral pleural effusions, left greater than right. Diffuse edema of the subcutaneous fat, Multiple small thyroid nodules. All apparently under 1 cm, no further follow-up necessary. Degenerative changes of the shoulders 09/19 xray : Unchanged diffuse interstitial and airspace edema, Probable influenza despite of negative influenza screening test, s/p Rx Abnormal liver function tests, ALP>>> AST -?cholangitis, obstruction on CBD; AST and ALP had improved, now worsenign again -HIDA scan: Negative for evidence of cystic duct obstruction/acute cholecystitis. Common bile duct is demonstrated be patent, but emptying into the duodenum is delayed, not seen until 2 hours. Significance of this is uncertain. MRCP or CT scanning may be useful to clarify -CT abd/p 09/23: Evidence of anasarca, with diffuse edema subcutaneous and mesenteric fat, bilateral pleural effusions, possible pulmonary edema, trace ascites. Densities within the gallbladder, probably reflecting tiny gallstones, although these are not identifiable on recent ultrasound. Gallbladder wall edema is probably a manifestation of anasarca, as recent hepatobiliary scan was negative for acute cholecystitis. Old ununited fracture deformities of the right pelvis. Bilateral chronic appearing hip dislocations Ultrasound of the abdomen : Gallbladder sludge. No definite stones. 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 -R/o HIT. Abx and protonix could be also be contributors. VDRF / ARDS HTN GERD History of auditory hallucination. Depression. Anemia. Rheumatoid arthritis. History of gastritis. PLAN: -Continue Amikacin #4 (abx d#8) and flagyl #4 for now while awaiting cx and possible CT abd/w +/- ERCP- patient's WBC improving with current regimen 09/25 sp Fluconazole #3 (held due to rise ALP) 09/23 SP Meropenem #5, PO Vanco #2 09/21 SP tamiflu #10 09/19 SP vancomycin and Levaquin d# 18 -f/u repeat cx -f/u Asp ag, fungitell, CrAg, Cocci ab, fungal sp cx Monitor CBC.; Trend WBC Monitor BMP.; Trend LFTs Monitor chest x-ray -GI, heme onc f/u Discussed with RN Subjective Allergies: Coded Allergies: No Known Allergies (Verified , 11/18/08) Subjective low grade fevers, Tm 100.3 leukocytosis improving ALP and AST increased Bcx NTD fungal serologies pending Objective Vital Signs Last 24 Hour Vital Signs Date Time Temp Pulse Resp B/P (MAP) Pulse Ox O2 Delivery O2 Flow Rate FiO2 09/26/17 11:03 95 27 60 09/26/17 10:00 98.8 102 22 118/45 94 98.8 09/26/17 09:00 98 25 110/52 95 Mechanical Ventilator 60 09/26/17 08:46 100 33 60 09/26/17 08:00 95 09/26/17 08:00 98.9 104 27 119/53 93 Mechanical Ventilator 60 98.9 09/26/17 08:00 60 09/26/17 07:17 100 32 60 09/26/17 07:00 101 33 117/49 93 Mechanical Ventilator 60 09/26/17 06:01 100 122/52 09/26/17 06:00 105 33 120/60 93 Mechanical Ventilator 60 09/26/17 05:00 101 33 125/63 93 Mechanical Ventilator 60 09/26/17 04:56 100 31 60 09/26/17 04:00 60 09/26/17 04:00 95 09/26/17 04:00 99.4 97 32 107/47 96 Mechanical Ventilator 60 99.4 09/26/17 03:00 97 32 107/47 96 Mechanical Ventilator 60 09/26/17 02:57 99 28 60 09/26/17 02:00 99 34 107/47 96 Mechanical Ventilator 60 09/26/17 01:00 98 29 121/57 98 Mechanical Ventilator 60 09/26/17 00:51 97 27 60 09/26/17 00:00 96 09/26/17 00:00 98.8 95 29 112/50 98 Mechanical Ventilator 60 98.8 09/26/17 00:00 65 09/25/17 23:00 95 29 115/50 98 Mechanical Ventilator 60 09/25/17 22:47 94 30 60 09/25/17 22:14 91 115/57 09/25/17 22:00 95 29 125/57 97 Mechanical Ventilator 60 09/25/17 21:00 92 26 115/57 96 Mechanical Ventilator 60 09/25/17 20:51 99 29 60 09/25/17 20:00 65 09/25/17 20:00 99.0 96 28 116/54 96 Mechanical Ventilator 60 99.0 09/25/17 19:30 98 30 60 09/25/17 19:00 95 28 118/54 96 Mechanical Ventilator 60 09/25/17 18:00 96 28 127/57 96 Mechanical Ventilator 60 09/25/17 17:26 99 32 65 09/25/17 17:00 98 28 108/60 96 Mechanical Ventilator 60 09/25/17 16:25 98.6 98.6 09/25/17 16:00 95 09/25/17 16:00 65 09/25/17 16:00 98.6 95 28 112/43 94 Mechanical Ventilator 60 98.6 09/25/17 15:00 98 32 107/48 94 Mechanical Ventilator 60 09/25/17 14:27 104 127/54 09/25/17 14:00 104 32 127/54 93 Mechanical Ventilator 60 09/25/17 13:06 97 31 65 09/25/17 13:00 94 31 124/54 93 Mechanical Ventilator 60 09/25/17 12:00 65 09/25/17 12:00 98 09/25/17 12:00 98.9 96 31 116/52 95 Mechanical Ventilator 65 98.9 Height (Feet): 5 Height (Inches): 0.00 Weight (Pounds): 108 Objective General Appearance: lethargic, thin EENT: normal ENT inspection Neck: non-tender, normal alignment, supple Cardiovascular: normal peripheral pulses, normal rate, regular rhythm, no gallop/murmur, no JVD Respiratory/Chest: Mechanical vent; respiratory distress, crackles/rales, rhonchi - bilaterally, expiratory wheezing Abdomen: normal bowel sounds, non tender, soft, no organomegaly, no mass Skin: normal pigmentation, warm/dry Laboratory Tests Test 09/26/17 04:50 White Blood Count 13.9 K/UL (4.8-10.8) H Red Blood Count 2.63 M/UL (4.20-5.40) L Hemoglobin 8.6 G/DL (12.0-16.0) L Hematocrit 26.8 % (37.0-47.0) L Mean Corpuscular Volume 102 FL (80-99) H Mean Corpuscular Hemoglobin 32.6 PG (27.0-31.0) H Mean Corpuscular Hemoglobin Concent 31.9 G/DL (32.0-36.0) L Red Cell Distribution Width 24.9 % (11.6-14.8) H Platelet Count 26 K/UL (150-450) L Mean Platelet Volume 14.9 FL (6.5-10.1) H Neutrophils (%) (Auto) % (45.0-75.0) Lymphocytes (%) (Auto) % (20.0-45.0) Monocytes (%) (Auto) % (1.0-10.0) Eosinophils (%) (Auto) % (0.0-3.0) Basophils (%) (Auto) % (0.0-2.0) Differential Total Cells Counted 100 Neutrophils % (Manual) 90 % (45-75) H Lymphocytes % (Manual) 3 % (20-45) L Monocytes % (Manual) 4 % (1-10) Eosinophils % (Manual) 2 % (0-3) Basophils % (Manual) 0 % (0-2) Band Neutrophils 1 % (0-8) Platelet Estimate Decreased L Platelet Morphology Normal Polychromasia 1+ Hypochromasia 1+ Anisocytosis 3+ Macrocytosis 1+ Sodium Level 155 MMOL/L (136-145) H Potassium Level 4.3 MMOL/L (3.5-5.1) Chloride Level 120 MMOL/L (98-107) H Carbon Dioxide Level 26 MMOL/L (21-32) Anion Gap 9 mmol/L (5-15) Blood Urea Nitrogen 45 mg/dL (7-18) H Creatinine 1.0 MG/DL (0.55-1.30) Estimat Glomerular Filtration Rate mL/min (>60) Glucose Level 106 MG/DL (74-106) # Calcium Level 8.1 MG/DL (8.5-10.1) L Phosphorus Level 5.3 MG/DL (2.5-4.9) H Magnesium Level 2.1 MG/DL (1.8-2.4) Total Bilirubin 1.2 MG/DL (0.2-1.0) H Direct Bilirubin 0.6 MG/DL (0.0-0.3) H Aspartate Amino Transf (AST/SGOT) 42 U/L (15-37) H Alanine Aminotransferase (ALT/SGPT) 29 U/L (12-78) Alkaline Phosphatase 830 U/L (46-116) H Total Protein 5.0 G/DL (6.4-8.2) L Albumin 1.5 G/DL (3.4-5.0) L Globulin 3.5 g/dL Albumin/Globulin Ratio 0.4 (1.0-2.7) L Current Medications Medications (Trade) Dose Ordered Sig/Hermes Route PRN Reason Start Time Stop Time Status Last Admin Dose Admin Acetaminophen (Tylenol) 650 mg EVERY 6 HOURS PRN NG Fever/Headache/Mild Pain 09/13/17 20:45 10/13/17 20:44 09/25/17 08:38 Amikacin Protocol (Amikacin pharmacy to dose) 1 ea DAILY PRN MISC Per rx protocol 09/23/17 11:45 10/23/17 11:44 Amikacin Sulfate 500 mg/Sodium Chloride 112 ml @ 112 mls/hr Q36H IV 09/25/17 11:30 10/02/17 11:29 09/25/17 11:50 Clonidine HCl (Catapres Tab) 0.1 mg Q4H PRN ORAL SBP>160 UNRELIEVED BY HYDRALAZ 09/16/17 16:45 10/15/17 16:59 Dextrose (Dextrose 50%) STAT PRN IV Hypoglycemia 09/13/17 15:00 10/13/17 14:59 Diltiazem HCl (Cardizem) 30 mg EVERY 8 HOURS NG 09/18/17 22:00 10/18/17 21:59 09/26/17 06:01 Insulin Aspart (NovoLOG) EVERY 6 HOURS SUBQ 09/17/17 12:00 10/17/17 11:59 09/26/17 00:27 Ketotifen Fumarate (Zatidor) 1 drop DAILY BOTH EYES 09/26/17 09:00 10/25/17 08:59 09/26/17 09:00 Metronidazole (Flagyl) 500 mg Q8HR ORAL 09/23/17 14:00 09/30/17 13:59 09/26/17 06:01 Polyethylene Glycol (Miralax) 17 gm BEDTIME ORAL 09/14/17 21:00 10/14/17 20:59 09/18/17 20:42 Madelyn Frey M.D. Sep 26, 2017 11:55
--- NOTE | 2017-09-26 12:06 | General Progress Note ---
Assessment/Plan Assessment/Plan #. Leukocytosis likely related to underlying pneumonia infection. --> On antibiotic treatment. --> Wbc count downtrended from yesterday. #. Thrombocytopenia, severe and progressive, acute onset, likely secondary to underlying infection, aspiration pneumonia versus HIT. --> Antibody test is pending. Heparin has been discontinued on 09/18/2017. --> Duplex of the lower extremities is negative, therefore less likely HIT and other causes are more likely such as underlying infection. --> Platelets goal >20k, transfuse if necessary. #. Anemia due to underlying chronic disease. Continue to closely monitor. --> Hemoglobin goal is above 7. --> S/P PRBC. No acute events. --> Anemia workup has been reviewed at this point. --> Transfuse if hemoglobin less than 7. Hemoglobin currently downtrended. Monitor closely. #. Community-acquired pneumonia versus hospital-acquired. --> The patient on broad-spectrum antibiotics. --> Improved. --> Urine culture growing E. coli. Continue to closely monitor. #. Transaminitis. She has been seen by GI Service. Continue to closely monitor. #. Low-grade fever. Closely observe. #. Encephalopathy. Subjective Date patient seen: Sep 25, 2017 Constitutional: Denies: no symptoms, chills, diaphoresis, fever, malaise, weakness, other HEENT: Denies: no symptoms, eye pain, blurred vision, tearing, double vision, ear pain, ear discharge, nose pain, nose congestion, throat pain, throat swelling, mouth pain, mouth swelling, other Cardiovascular: Denies: no symptoms, chest pain, edema, irregular heart rate, lightheadedness, palpitations, syncope, other Respiratory: Denies: no symptoms, cough, orthopnea, shortness of breath, SOB with excertion, SOB at rest, sputum, stridor, wheezing, other Gastrointestinal/Abdominal: Denies: no symptoms, abdomen distended, abdominal pain, black stools, tarry stools, blood in stool, constipated, diarrhea, difficulty swallowing, nausea, poor appetite, poor fluid intake, rectal bleeding , vomiting, other Genitourinary: Denies: no symptoms, burning, discharge, frequency, flank pain, hematuria, incontinence, pain, urgency, other 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: Denies: no symptoms, anxiety, depressed, emotional problems, headache, numbness, paresthesia, pre-existing deficit, seizure, tingling, tremors, weakness, other Hematologic/Lymphatic: Reports: anemia Allergies: Coded Allergies: No Known Allergies (Verified , 11/18/08) Subjective Platelets remain low. Leukocytosis improved. Encephalopathic. Objective Last 24 Hour Vital Signs Date Time Temp Pulse Resp B/P (MAP) Pulse Ox O2 Delivery O2 Flow Rate FiO2 09/26/17 11:03 95 27 60 09/26/17 11:00 105 22 115/52 94 09/26/17 10:00 98.8 102 22 118/45 94 98.8 09/26/17 09:00 98 25 110/52 95 Mechanical Ventilator 60 09/26/17 08:46 100 33 60 09/26/17 08:00 95 09/26/17 08:00 98.9 104 27 119/53 93 Mechanical Ventilator 60 98.9 09/26/17 08:00 60 09/26/17 07:17 100 32 60 09/26/17 07:00 101 33 117/49 93 Mechanical Ventilator 60 09/26/17 06:01 100 122/52 09/26/17 06:00 105 33 120/60 93 Mechanical Ventilator 60 09/26/17 05:00 101 33 125/63 93 Mechanical Ventilator 60 09/26/17 04:56 100 31 60 09/26/17 04:00 60 09/26/17 04:00 95 09/26/17 04:00 99.4 97 32 107/47 96 Mechanical Ventilator 60 99.4 09/26/17 03:00 97 32 107/47 96 Mechanical Ventilator 60 09/26/17 02:57 99 28 60 09/26/17 02:00 99 34 107/47 96 Mechanical Ventilator 60 09/26/17 01:00 98 29 121/57 98 Mechanical Ventilator 60 09/26/17 00:51 97 27 60 09/26/17 00:00 96 09/26/17 00:00 98.8 95 29 112/50 98 Mechanical Ventilator 60 98.8 09/26/17 00:00 65 09/25/17 23:00 95 29 115/50 98 Mechanical Ventilator 60 09/25/17 22:47 94 30 60 09/25/17 22:14 91 115/57 09/25/17 22:00 95 29 125/57 97 Mechanical Ventilator 60 09/25/17 21:00 92 26 115/57 96 Mechanical Ventilator 60 09/25/17 20:51 99 29 60 09/25/17 20:00 65 09/25/17 20:00 99.0 96 28 116/54 96 Mechanical Ventilator 60 99.0 09/25/17 19:30 98 30 60 09/25/17 19:00 95 28 118/54 96 Mechanical Ventilator 60 09/25/17 18:00 96 28 127/57 96 Mechanical Ventilator 60 09/25/17 17:26 99 32 65 09/25/17 17:00 98 28 108/60 96 Mechanical Ventilator 60 09/25/17 16:25 98.6 98.6 09/25/17 16:00 95 09/25/17 16:00 65 09/25/17 16:00 98.6 95 28 112/43 94 Mechanical Ventilator 60 98.6 09/25/17 15:00 98 32 107/48 94 Mechanical Ventilator 60 09/25/17 14:27 104 127/54 09/25/17 14:00 104 32 127/54 93 Mechanical Ventilator 60 09/25/17 13:06 97 31 65 09/25/17 13:00 94 31 124/54 93 Mechanical Ventilator 60 Intake and Output 09/25/17 09/26/17 19:00 07:00 Intake Total 882 ml 720 ml Output Total 450 ml 550 ml Balance 432 ml 170 ml Intake Free Water 100 ml 180 ml IV Total 112 ml Tube Feeding 570 ml 540 ml Other 100 ml Output Urine Total 450 ml 550 ml # Bowel Movements 2 6 Laboratory Tests 09/26/17 04:50: White Blood Count 13.9H, Red Blood Count 2.63L, Hemoglobin 8.6L, Hematocrit 26.8L, Mean Corpuscular Volume 102H, Mean Corpuscular Hemoglobin 32.6H, Mean Corpuscular Hemoglobin Concent 31.9L, Red Cell Distribution Width 24.9H, Platelet Count 26L, Mean Platelet Volume 14.9H, Neutrophils (%) (Auto) , Lymphocytes (%) (Auto) , Monocytes (%) (Auto) , Eosinophils (%) (Auto) , Basophils (%) (Auto) , Differential Total Cells Counted 100, Neutrophils % ( Manual) 90H, Lymphocytes % (Manual) 3L, Monocytes % (Manual) 4, Eosinophils % ( Manual) 2, Basophils % (Manual) 0, Band Neutrophils 1, Platelet Estimate DecreasedL, Platelet Morphology Normal, Polychromasia 1+, Hypochromasia 1+, Anisocytosis 3+, Macrocytosis 1+, Sodium Level 155H, Potassium Level 4.3, Chloride Level 120H, Carbon Dioxide Level 26, Anion Gap 9, Blood Urea Nitrogen 45H, Creatinine 1.0, Estimat Glomerular Filtration Rate , Glucose Level 106#, Calcium Level 8.1L, Phosphorus Level 5.3H, Magnesium Level 2.1, Total Bilirubin 1.2H, Direct Bilirubin 0.6H, Aspartate Amino Transf (AST/SGOT) 42H, Alanine Aminotransferase (ALT/SGPT) 29, Alkaline Phosphatase 830H, Total Protein 5.0L, Albumin 1.5L, Globulin 3.5, Albumin/Globulin Ratio 0.4L Height (Feet): 5 Height (Inches): 0.00 Weight (Pounds): 108 General Appearance: confused Respiratory/Chest: decreased breath sounds Abdomen: soft Johnny Sinha MD Sep 26, 2017 12:06
--- NOTE | 2017-09-26 12:12 | Nephrology Progress Note ---
Assessment/Plan Problem List: (1) ARDS (adult respiratory distress syndrome) (2) Electrolyte imbalance (3) Thrombocytopenia Assessment Na 152 Platelets 45 K (1) ARDS (adult respiratory distress syndrome) (2) Aspiration pneumonia (3) Protein-calorie malnutrition, severe (4) Diabetes mellitus (5) Anemia , aplastic by history (6) DM (7) UTI (8) Electrolyte imbalance (9) HTN (10) Depression (11) RA . Plan doing poorly water via NGT Adjust BP meds K and Phos supplement as needed Monitor renal parameters and urine output avoid nephrotoxics per orders discussed with RN Left ventricular ejection fraction estimated to be 55 %. Subjective ROS Limited/Unobtainable: Yes Objective Objective Last 24 Hour Vital Signs Date Time Temp Pulse Resp B/P (MAP) Pulse Ox O2 Delivery O2 Flow Rate FiO2 09/26/17 11:03 95 27 60 09/26/17 11:00 105 22 115/52 94 09/26/17 10:00 98.8 102 22 118/45 94 98.8 09/26/17 09:00 98 25 110/52 95 Mechanical Ventilator 60 09/26/17 08:46 100 33 60 09/26/17 08:00 95 09/26/17 08:00 98.9 104 27 119/53 93 Mechanical Ventilator 60 98.9 09/26/17 08:00 60 09/26/17 07:17 100 32 60 09/26/17 07:00 101 33 117/49 93 Mechanical Ventilator 60 09/26/17 06:01 100 122/52 09/26/17 06:00 105 33 120/60 93 Mechanical Ventilator 60 09/26/17 05:00 101 33 125/63 93 Mechanical Ventilator 60 09/26/17 04:56 100 31 60 09/26/17 04:00 60 09/26/17 04:00 95 09/26/17 04:00 99.4 97 32 107/47 96 Mechanical Ventilator 60 99.4 09/26/17 03:00 97 32 107/47 96 Mechanical Ventilator 60 09/26/17 02:57 99 28 60 09/26/17 02:00 99 34 107/47 96 Mechanical Ventilator 60 09/26/17 01:00 98 29 121/57 98 Mechanical Ventilator 60 09/26/17 00:51 97 27 60 09/26/17 00:00 96 09/26/17 00:00 98.8 95 29 112/50 98 Mechanical Ventilator 60 98.8 09/26/17 00:00 65 09/25/17 23:00 95 29 115/50 98 Mechanical Ventilator 60 09/25/17 22:47 94 30 60 09/25/17 22:14 91 115/57 09/25/17 22:00 95 29 125/57 97 Mechanical Ventilator 60 09/25/17 21:00 92 26 115/57 96 Mechanical Ventilator 60 09/25/17 20:51 99 29 60 09/25/17 20:00 65 09/25/17 20:00 99.0 96 28 116/54 96 Mechanical Ventilator 60 99.0 09/25/17 19:30 98 30 60 09/25/17 19:00 95 28 118/54 96 Mechanical Ventilator 60 09/25/17 18:00 96 28 127/57 96 Mechanical Ventilator 60 09/25/17 17:26 99 32 65 09/25/17 17:00 98 28 108/60 96 Mechanical Ventilator 60 09/25/17 16:25 98.6 98.6 09/25/17 16:00 95 09/25/17 16:00 65 09/25/17 16:00 98.6 95 28 112/43 94 Mechanical Ventilator 60 98.6 09/25/17 15:00 98 32 107/48 94 Mechanical Ventilator 60 09/25/17 14:27 104 127/54 09/25/17 14:00 104 32 127/54 93 Mechanical Ventilator 60 09/25/17 13:06 97 31 65 09/25/17 13:00 94 31 124/54 93 Mechanical Ventilator 60 Intake and Output 09/25/17 09/26/17 19:00 07:00 Intake Total 882 ml 720 ml Output Total 450 ml 550 ml Balance 432 ml 170 ml Intake Free Water 100 ml 180 ml IV Total 112 ml Tube Feeding 570 ml 540 ml Other 100 ml Output Urine Total 450 ml 550 ml # Bowel Movements 2 6 Laboratory Tests 09/26/17 04:50: White Blood Count 13.9H, Red Blood Count 2.63L, Hemoglobin 8.6L, Hematocrit 26.8L, Mean Corpuscular Volume 102H, Mean Corpuscular Hemoglobin 32.6H, Mean Corpuscular Hemoglobin Concent 31.9L, Red Cell Distribution Width 24.9H, Platelet Count 26L, Mean Platelet Volume 14.9H, Neutrophils (%) (Auto) , Lymphocytes (%) (Auto) , Monocytes (%) (Auto) , Eosinophils (%) (Auto) , Basophils (%) (Auto) , Differential Total Cells Counted 100, Neutrophils % ( Manual) 90H, Lymphocytes % (Manual) 3L, Monocytes % (Manual) 4, Eosinophils % ( Manual) 2, Basophils % (Manual) 0, Band Neutrophils 1, Platelet Estimate DecreasedL, Platelet Morphology Normal, Polychromasia 1+, Hypochromasia 1+, Anisocytosis 3+, Macrocytosis 1+, Sodium Level 155H, Potassium Level 4.3, Chloride Level 120H, Carbon Dioxide Level 26, Anion Gap 9, Blood Urea Nitrogen 45H, Creatinine 1.0, Estimat Glomerular Filtration Rate , Glucose Level 106#, Calcium Level 8.1L, Phosphorus Level 5.3H, Magnesium Level 2.1, Total Bilirubin 1.2H, Direct Bilirubin 0.6H, Aspartate Amino Transf (AST/SGOT) 42H, Alanine Aminotransferase (ALT/SGPT) 29, Alkaline Phosphatase 830H, Total Protein 5.0L, Albumin 1.5L, Globulin 3.5, Albumin/Globulin Ratio 0.4L Height (Feet): 5 Height (Inches): 0.00 Weight (Pounds): 108 EENT: other - vented Cardiovascular: tachycardia Respiratory/Chest: decreased breath sounds Abdomen: distended Objective no change YAEL HANSEN Sep 26, 2017 12:12
--- NOTE | 2017-09-26 16:08 | Cardiac Electrophysiology PN ---
Assessment/Plan Assessment/Plan 1. Respiratory failure, due to underlying ARDS , pneumonia. Intubated on the vent. Already ruled out for myocardial infarction. Now on 60% Fio2 with PEEP of 5. Possible tracheostomy on Friday 2. Left bundle-branch block. No evidence of advanced heart block. 3. HTN and diastolic dysfunction. On Cardizem 30 q8 hr. Echo EF 55% 4. Hypernatremia and azotemia. Off Lasix. Fluids per Dr Mayer 5. Pneumonia and sepsis on IV antibiotics by Dr. Hunter. 6. Psychiatric disorder. 7. Anasarca. 3rd spacing. Lasix when OK with Dr Mayer 8. Anemia with Hb 6.6 s/p PRBC. CT chest abdomen and pelvis without contrast no acute finding 9. Severe thrombocytopenia. S/P platelet transfusion DW pharmacist in charge Subjective Subjective Intubated on Vent in ICU. On 60% Fio2 and PEEP of 5. In sinus tach Objective Last 24 Hour Vital Signs Date Time Temp Pulse Resp B/P (MAP) Pulse Ox O2 Delivery O2 Flow Rate FiO2 09/26/17 14:41 101 26 60 09/26/17 14:36 104 114/26 09/26/17 14:00 102 33 117/55 96 Mechanical Ventilator 60 09/26/17 13:00 104 33 114/26 96 09/26/17 12:56 105 29 60 09/26/17 12:00 99.1 100 22 114/26 94 Mechanical Ventilator 60 99.1 09/26/17 12:00 60 09/26/17 12:00 100 09/26/17 11:03 95 27 60 09/26/17 11:00 105 22 115/52 94 09/26/17 10:00 98.8 102 22 118/45 94 98.8 09/26/17 09:00 98 25 110/52 95 Mechanical Ventilator 60 09/26/17 08:46 100 33 60 09/26/17 08:00 95 09/26/17 08:00 98.9 104 27 119/53 93 Mechanical Ventilator 60 98.9 09/26/17 08:00 60 09/26/17 07:17 100 32 60 09/26/17 07:00 101 33 117/49 93 Mechanical Ventilator 60 09/26/17 06:01 100 122/52 09/26/17 06:00 105 33 120/60 93 Mechanical Ventilator 60 09/26/17 05:00 101 33 125/63 93 Mechanical Ventilator 60 09/26/17 05:00 105 36 122/52 94 18 04:56 100 31 60 09/26/17 04:00 60 18 04:00 100 32 117/54 96 18 04:00 95 09/26/17 04:00 99.4 97 32 107/47 96 Mechanical Ventilator 60 99.4 09/26/17 03:00 97 32 107/47 96 Mechanical Ventilator 60 09/26/17 03:00 97 35 107/47 96 09/26/17 02:57 99 28 60 09/26/17 02:00 99 34 107/47 96 Mechanical Ventilator 60 09/26/17 02:00 96 34 111/53 96 09/26/17 01:00 98 29 121/57 98 Mechanical Ventilator 60 09/26/17 01:00 94 30 121/57 99 09/26/17 00:51 97 27 60 09/26/17 00:00 96 09/26/17 00:00 98.8 95 29 112/50 98 Mechanical Ventilator 60 98.8 09/26/17 00:00 65 09/26/17 00:00 96 33 117/47 94 09/25/17 23:02 94 26 115/50 96 09/25/17 23:00 95 29 115/50 98 Mechanical Ventilator 60 09/25/17 23:00 96 29 96 09/25/17 22:54 98 33 122/53 96 18 22:50 98 24 125/57 94 18 22:47 94 30 60 09/25/17 22:14 91 115/57 09/25/17 22:00 97 28 115/57 97 18 22:00 95 29 125/57 97 Mechanical Ventilator 60 09/25/17 21:00 92 26 115/57 96 Mechanical Ventilator 60 09/25/17 21:00 92 19 113/47 97 18 20:51 99 29 60 18 20:00 65 18 20:00 101 30 122/56 96 09/25/17 20:00 99.0 96 28 116/54 96 Mechanical Ventilator 60 99.0 09/25/17 19:30 98 30 60 09/25/17 19:00 95 28 118/54 96 Mechanical Ventilator 60 09/25/17 19:00 96 22 118/54 96 09/25/17 18:00 101 28 127/57 95 18 18:00 96 28 127/57 96 Mechanical Ventilator 60 09/25/17 17:26 99 32 65 09/25/17 17:00 90 27 108/60 96 09/25/17 17:00 98 28 108/60 96 Mechanical Ventilator 60 09/25/17 16:25 98.6 98.6 Intake and Output 09/25/17 09/26/17 19:00 07:00 Intake Total 882 ml 720 ml Output Total 450 ml 550 ml Balance 432 ml 170 ml Intake Free Water 100 ml 180 ml IV Total 112 ml Tube Feeding 570 ml 540 ml Other 100 ml Output Urine Total 450 ml 550 ml # Bowel Movements 2 6 Laboratory Tests Test 09/26/17 04:50 White Blood Count 13.9 K/UL (4.8-10.8) H Red Blood Count 2.63 M/UL (4.20-5.40) L Hemoglobin 8.6 G/DL (12.0-16.0) L Hematocrit 26.8 % (37.0-47.0) L Mean Corpuscular Volume 102 FL (80-99) H Mean Corpuscular Hemoglobin 32.6 PG (27.0-31.0) H Mean Corpuscular Hemoglobin Concent 31.9 G/DL (32.0-36.0) L Red Cell Distribution Width 24.9 % (11.6-14.8) H Platelet Count 26 K/UL (150-450) L Mean Platelet Volume 14.9 FL (6.5-10.1) H Neutrophils (%) (Auto) % (45.0-75.0) Lymphocytes (%) (Auto) % (20.0-45.0) Monocytes (%) (Auto) % (1.0-10.0) Eosinophils (%) (Auto) % (0.0-3.0) Basophils (%) (Auto) % (0.0-2.0) Differential Total Cells Counted 100 Neutrophils % (Manual) 90 % (45-75) H Lymphocytes % (Manual) 3 % (20-45) L Monocytes % (Manual) 4 % (1-10) Eosinophils % (Manual) 2 % (0-3) Basophils % (Manual) 0 % (0-2) Band Neutrophils 1 % (0-8) Platelet Estimate Decreased L Platelet Morphology Normal Polychromasia 1+ Hypochromasia 1+ Anisocytosis 3+ Macrocytosis 1+ Sodium Level 155 MMOL/L (136-145) H Potassium Level 4.3 MMOL/L (3.5-5.1) Chloride Level 120 MMOL/L (98-107) H Carbon Dioxide Level 26 MMOL/L (21-32) Anion Gap 9 mmol/L (5-15) Blood Urea Nitrogen 45 mg/dL (7-18) H Creatinine 1.0 MG/DL (0.55-1.30) Estimat Glomerular Filtration Rate mL/min (>60) Glucose Level 106 MG/DL (74-106) # Calcium Level 8.1 MG/DL (8.5-10.1) L Phosphorus Level 5.3 MG/DL (2.5-4.9) H Magnesium Level 2.1 MG/DL (1.8-2.4) Total Bilirubin 1.2 MG/DL (0.2-1.0) H Direct Bilirubin 0.6 MG/DL (0.0-0.3) H Aspartate Amino Transf (AST/SGOT) 42 U/L (15-37) H Alanine Aminotransferase (ALT/SGPT) 29 U/L (12-78) Alkaline Phosphatase 830 U/L (46-116) H Total Protein 5.0 G/DL (6.4-8.2) L Albumin 1.5 G/DL (3.4-5.0) L Globulin 3.5 g/dL Albumin/Globulin Ratio 0.4 (1.0-2.7) L Objective HEAD AND NECK: Orally intubated. NG tube LUNGS: Coarse rhonchi bilaterally CARDIOVASCULAR: Tachy S1 and S2.No murmur ABDOMEN: Soft. EXTREMITIES: 1+ pitting edema. ROLF OLIVIA Sep 26, 2017 16:08
--- NOTE | 2017-09-26 17:25 | Internal Med Progress Note ---
Subjective Date of Service: Sep 26, 2017 Physician Name Noah Bowens Attending Physician Jesus Barahona MD Current Medications Medications (Trade) Dose Ordered Sig/Hermes Route PRN Reason Start Time Stop Time Status Last Admin Dose Admin Acetaminophen (Tylenol) 650 mg EVERY 6 HOURS PRN NG Fever/Headache/Mild Pain 09/13/17 20:45 10/13/17 20:44 09/25/17 08:38 Amikacin Protocol (Amikacin pharmacy to dose) 1 ea DAILY PRN MISC Per rx protocol 09/23/17 11:45 10/23/17 11:44 Amikacin Sulfate 500 mg/Sodium Chloride 112 ml @ 112 mls/hr Q36H IV 09/25/17 11:30 10/02/17 11:29 09/25/17 11:50 Clonidine HCl (Catapres Tab) 0.1 mg Q4H PRN ORAL SBP>160 UNRELIEVED BY HYDRALAZ 09/16/17 16:45 10/15/17 16:59 Dextrose (Dextrose 50%) STAT PRN IV Hypoglycemia 09/13/17 15:00 10/13/17 14:59 Diltiazem HCl (Cardizem) 30 mg EVERY 8 HOURS NG 09/18/17 22:00 10/18/17 21:59 09/26/17 14:36 Insulin Aspart (NovoLOG) EVERY 6 HOURS SUBQ 09/17/17 12:00 10/17/17 11:59 09/26/17 12:46 Ketotifen Fumarate (Zatidor) 1 drop DAILY BOTH EYES 09/26/17 09:00 10/25/17 08:59 09/26/17 09:00 Metronidazole (Flagyl) 500 mg Q8HR ORAL 09/23/17 14:00 09/30/17 13:59 09/26/17 14:36 Polyethylene Glycol (Miralax) 17 gm BEDTIME ORAL 09/14/17 21:00 10/14/17 20:59 09/18/17 20:42 Allergies: Coded Allergies: No Known Allergies (Verified , 11/18/08) ROS Limited/Unobtainable: Yes Subjective 76 YO F admitted with Shortness of breath, now respiratory failure. Intubated and sedated. Cover for Internal Med-Dr. Barahona. ICU Objective Last Vital Signs Date Time Temp Pulse Resp B/P (MAP) Pulse Ox O2 Delivery O2 Flow Rate FiO2 09/26/17 17:02 99 24 60 09/26/17 17:00 98.7 109/47 94 Mechanical Ventilator 98.7 Laboratory Tests Test 09/26/17 04:50 White Blood Count 13.9 K/UL (4.8-10.8) H Red Blood Count 2.63 M/UL (4.20-5.40) L Hemoglobin 8.6 G/DL (12.0-16.0) L Hematocrit 26.8 % (37.0-47.0) L Mean Corpuscular Volume 102 FL (80-99) H Mean Corpuscular Hemoglobin 32.6 PG (27.0-31.0) H Mean Corpuscular Hemoglobin Concent 31.9 G/DL (32.0-36.0) L Red Cell Distribution Width 24.9 % (11.6-14.8) H Platelet Count 26 K/UL (150-450) L Mean Platelet Volume 14.9 FL (6.5-10.1) H Neutrophils (%) (Auto) % (45.0-75.0) Lymphocytes (%) (Auto) % (20.0-45.0) Monocytes (%) (Auto) % (1.0-10.0) Eosinophils (%) (Auto) % (0.0-3.0) Basophils (%) (Auto) % (0.0-2.0) Differential Total Cells Counted 100 Neutrophils % (Manual) 90 % (45-75) H Lymphocytes % (Manual) 3 % (20-45) L Monocytes % (Manual) 4 % (1-10) Eosinophils % (Manual) 2 % (0-3) Basophils % (Manual) 0 % (0-2) Band Neutrophils 1 % (0-8) Platelet Estimate Decreased L Platelet Morphology Normal Polychromasia 1+ Hypochromasia 1+ Anisocytosis 3+ Macrocytosis 1+ Sodium Level 155 MMOL/L (136-145) H Potassium Level 4.3 MMOL/L (3.5-5.1) Chloride Level 120 MMOL/L (98-107) H Carbon Dioxide Level 26 MMOL/L (21-32) Anion Gap 9 mmol/L (5-15) Blood Urea Nitrogen 45 mg/dL (7-18) H Creatinine 1.0 MG/DL (0.55-1.30) Estimat Glomerular Filtration Rate mL/min (>60) Glucose Level 106 MG/DL (74-106) # Calcium Level 8.1 MG/DL (8.5-10.1) L Phosphorus Level 5.3 MG/DL (2.5-4.9) H Magnesium Level 2.1 MG/DL (1.8-2.4) Total Bilirubin 1.2 MG/DL (0.2-1.0) H Direct Bilirubin 0.6 MG/DL (0.0-0.3) H Aspartate Amino Transf (AST/SGOT) 42 U/L (15-37) H Alanine Aminotransferase (ALT/SGPT) 29 U/L (12-78) Alkaline Phosphatase 830 U/L (46-116) H Total Protein 5.0 G/DL (6.4-8.2) L Albumin 1.5 G/DL (3.4-5.0) L Globulin 3.5 g/dL Albumin/Globulin Ratio 0.4 (1.0-2.7) L Intake and Output 09/25/17 09/26/17 19:00 07:00 Intake Total 882 ml 720 ml Output Total 450 ml 550 ml Balance 432 ml 170 ml Intake Free Water 100 ml 180 ml IV Total 112 ml Tube Feeding 570 ml 540 ml Other 100 ml Output Urine Total 450 ml 550 ml # Bowel Movements 2 6 Objective General Appearance: lethargic, thin EENT: normal ENT inspection Neck: non-tender, normal alignment, supple Cardiovascular: normal peripheral pulses, normal rate, regular rhythm, no gallop/murmur, no JVD Respiratory/Chest: Mechanical vent; respiratory distress, crackles/rales, rhonchi - bilaterally, expiratory wheezing Abdomen: normal bowel sounds, non tender, soft, no organomegaly, no mass Skin: normal pigmentation, warm/dry Assessment/Plan Problem List: (1) HTN (hypertension) Assessment & Plan: Currently hypotensive. (2) Arthritis, rheumatoid (3) Parkinsons disease (4) Aplastic anemia (5) GERD (gastroesophageal reflux disease) (6) Respiratory failure Assessment & Plan: Cont vent per pulmonary (7) Pneumonia (8) Dyspnea (9) Sepsis Assessment & Plan: Blood culture neg. Continue Amikacin and flagyl per ID (10) ARDS (adult respiratory distress syndrome) Assessment & Plan: See pulmonary note (11) UTI (urinary tract infection) Assessment & Plan: E.Coli. Continue levaquin (12) Anemia Assessment & Plan: S/P Transfusion 2 units PRBC (13) Diabetes mellitus, type II Assessment & Plan: Continue novolog sliding scale (14) Leukocytosis Assessment & Plan: Worsening. See ID note. Start amikacin and fluconazole (15) Thrombocytopenia Status: not improved NOAH BOWENS Sep 26, 2017 17:25
--- NOTE | 2017-09-26 17:48 | General Progress Note ---
Assessment/Plan Assessment/Plan Assessment - Resp failure / ARDS / PNA - Abnormal LFT, r/o CBD stone and biliary sepsis - Anemia with OB (+) stools - thrombocytopenia - Malnutrition - on NGT feeds - Diarrhea - C Diff negative - hypernatremia - will increase GT flushes - Leukocytosis / sepsis - on abx Recommendations - Continue supportive care, per family directive - will ask for second op GI eval re ERCP or EUS - transfuse PRN - Elevate HOB - Vent care - Monitor H&H, WBC, LFT, Na Subjective Allergies: Coded Allergies: No Known Allergies (Verified , 11/18/08) Subjective on Vent tolerating TF no significant events overnight Discussed with physician nephew again at length yesterday even had a 3 way phone call with nephew and patient's outpatient MD, Dr. Alexander advised re concern for possible CBD stone and/or cholangitis advised CT with IV contrast could potentially give info needed to decide if ERCP indicated Family still refused IV contrast CT, citing risks of potential contrast nephropathy Family want to continue current supportive only management Objective Last 24 Hour Vital Signs Date Time Temp Pulse Resp B/P (MAP) Pulse Ox O2 Delivery O2 Flow Rate FiO2 09/26/17 17:02 99 24 60 09/26/17 17:00 98.7 98 30 109/47 94 Mechanical Ventilator 60 98.7 09/26/17 16:00 98 30 110/50 94 Mechanical Ventilator 60 09/26/17 15:00 98 28 104/45 95 Mechanical Ventilator 60 09/26/17 14:41 101 26 60 09/26/17 14:36 104 114/26 09/26/17 14:00 102 33 117/55 96 Mechanical Ventilator 60 09/26/17 13:00 104 33 114/26 96 09/26/17 12:56 105 29 60 09/26/17 12:00 99.1 100 22 114/26 94 Mechanical Ventilator 60 99.1 09/26/17 12:00 60 09/26/17 12:00 100 09/26/17 11:03 95 27 60 09/26/17 11:00 105 22 115/52 94 09/26/17 10:00 98.8 102 22 118/45 94 98.8 09/26/17 09:00 98 25 110/52 95 Mechanical Ventilator 60 09/26/17 08:46 100 33 60 09/26/17 08:00 95 3/16/18 08:00 98.9 104 27 119/53 93 Mechanical Ventilator 60 98.9 09/26/17 08:00 60 09/26/17 07:17 100 32 60 09/26/17 07:00 101 33 117/49 93 Mechanical Ventilator 60 09/26/17 06:01 100 122/52 09/26/17 06:00 105 33 120/60 93 Mechanical Ventilator 60 09/26/17 05:00 101 33 125/63 93 Mechanical Ventilator 60 09/26/17 05:00 105 36 122/52 94 09/26/17 04:56 100 31 60 09/26/17 04:00 60 09/26/17 04:00 100 32 117/54 96 09/26/17 04:00 95 09/26/17 04:00 99.4 97 32 107/47 96 Mechanical Ventilator 60 99.4 09/26/17 03:00 97 32 107/47 96 Mechanical Ventilator 60 09/26/17 03:00 97 35 107/47 96 09/26/17 02:57 99 28 60 09/26/17 02:00 99 34 107/47 96 Mechanical Ventilator 60 09/26/17 02:00 96 34 111/53 96 09/26/17 01:00 98 29 121/57 98 Mechanical Ventilator 60 09/26/17 01:00 94 30 121/57 99 09/26/17 00:51 97 27 60 09/26/17 00:00 96 09/26/17 00:00 98.8 95 29 112/50 98 Mechanical Ventilator 60 98.8 09/26/17 00:00 65 09/26/17 00:00 96 33 117/47 94 09/25/17 23:02 94 26 115/50 96 09/25/17 23:00 95 29 115/50 98 Mechanical Ventilator 60 09/25/17 23:00 96 29 96 09/25/17 22:54 98 33 122/53 96 09/25/17 22:50 98 24 125/57 94 18 22:47 94 30 60 09/25/17 22:14 91 115/57 09/25/17 22:00 97 28 115/57 97 09/25/17 22:00 95 29 125/57 97 Mechanical Ventilator 60 09/25/17 21:00 92 26 115/57 96 Mechanical Ventilator 60 09/25/17 21:00 92 19 113/47 97 09/25/17 20:51 99 29 60 09/25/17 20:00 65 09/25/17 20:00 101 30 122/56 96 09/25/17 20:00 99.0 96 28 116/54 96 Mechanical Ventilator 60 99.0 09/25/17 19:30 98 30 60 09/25/17 19:00 95 28 118/54 96 Mechanical Ventilator 60 09/25/17 19:00 96 22 118/54 96 09/25/17 18:00 101 28 127/57 95 09/25/17 18:00 96 28 127/57 96 Mechanical Ventilator 60 Intake and Output 09/25/17 09/26/17 19:00 07:00 Intake Total 882 ml 720 ml Output Total 450 ml 550 ml Balance 432 ml 170 ml Intake Free Water 100 ml 180 ml IV Total 112 ml Tube Feeding 570 ml 540 ml Other 100 ml Output Urine Total 450 ml 550 ml # Bowel Movements 2 6 Laboratory Tests 09/26/17 04:50: White Blood Count 13.9H, Red Blood Count 2.63L, Hemoglobin 8.6L, Hematocrit 26.8L, Mean Corpuscular Volume 102H, Mean Corpuscular Hemoglobin 32.6H, Mean Corpuscular Hemoglobin Concent 31.9L, Red Cell Distribution Width 24.9H, Platelet Count 26L, Mean Platelet Volume 14.9H, Neutrophils (%) (Auto) , Lymphocytes (%) (Auto) , Monocytes (%) (Auto) , Eosinophils (%) (Auto) , Basophils (%) (Auto) , Differential Total Cells Counted 100, Neutrophils % ( Manual) 90H, Lymphocytes % (Manual) 3L, Monocytes % (Manual) 4, Eosinophils % ( Manual) 2, Basophils % (Manual) 0, Band Neutrophils 1, Platelet Estimate DecreasedL, Platelet Morphology Normal, Polychromasia 1+, Hypochromasia 1+, Anisocytosis 3+, Macrocytosis 1+, Sodium Level 155H, Potassium Level 4.3, Chloride Level 120H, Carbon Dioxide Level 26, Anion Gap 9, Blood Urea Nitrogen 45H, Creatinine 1.0, Estimat Glomerular Filtration Rate , Glucose Level 106#, Calcium Level 8.1L, Phosphorus Level 5.3H, Magnesium Level 2.1, Total Bilirubin 1.2H, Direct Bilirubin 0.6H, Aspartate Amino Transf (AST/SGOT) 42H, Alanine Aminotransferase (ALT/SGPT) 29, Alkaline Phosphatase 830H, Total Protein 5.0L, Albumin 1.5L, Globulin 3.5, Albumin/Globulin Ratio 0.4L Height (Feet): 5 Height (Inches): 0.00 Weight (Pounds): 108 Objective WDWN NCAT , (+) ETT supple CTA RRR abd soft (+) edema non verbal ARNULFO DURON Sep 26, 2017 17:48
--- NOTE | 2017-09-26 20:48 | General Progress Note ---
Assessment/Plan Problem List: (1) Arthritis, rheumatoid ICD Codes: M06.9 - Rheumatoid arthritis, unspecified SNOMED: 15828433 (2) Aspiration pneumonia ICD Codes: J69.0 - Pneumonitis due to inhalation of food and vomit SNOMED: 042152448 (3) Diabetes mellitus ICD Codes: E11.9 - Type 2 diabetes mellitus without complications SNOMED: 44990352 (4) ARDS (adult respiratory distress syndrome) ICD Codes: J80 - Acute respiratory distress syndrome SNOMED: 06797821 (5) Transaminitis ICD Codes: R74.0 - Nonspecific elevation of levels of transaminase and lactic acid dehydrogenase [LDH] SNOMED: 805582101, 778834768 (6) Dyspnea ICD Codes: R06.00 - Dyspnea, unspecified SNOMED: 785468187 (7) Parkinsons disease ICD Codes: G20 - Parkinson's disease SNOMED: 43072176 (8) Sepsis ICD Codes: A41.9 - Sepsis, unspecified organism SNOMED: 68766226 (9) GERD (gastroesophageal reflux disease) ICD Codes: K21.9 - Gastro-esophageal reflux disease without esophagitis SNOMED: 170958158 (10) Aplastic anemia ICD Codes: D61.9 - Aplastic anemia, unspecified SNOMED: 733389217 (11) Pneumonia ICD Codes: J18.9 - Pneumonia, unspecified organism SNOMED: 917967668 (12) HTN (hypertension) ICD Codes: I10 - Essential (primary) hypertension SNOMED: 46176314 Assessment/Plan Encephalopathy, agitation, psychotic disorder. -cont current meds -ativan prn Subjective Date patient seen: Sep 26, 2017 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: Reports: anxiety, depressed, emotional problems Allergies: Coded Allergies: No Known Allergies (Verified , 11/18/08) Objective Last 24 Hour Vital Signs Date Time Temp Pulse Resp B/P (MAP) Pulse Ox O2 Delivery O2 Flow Rate FiO2 09/26/17 19:15 92 60 09/26/17 19:00 97 26 108/49 96 Mechanical Ventilator 60 09/26/17 18:00 94 26 101/49 94 Mechanical Ventilator 60 09/26/17 17:02 99 24 60 09/26/17 17:00 98.7 98 30 109/47 94 Mechanical Ventilator 60 98.7 09/26/17 16:00 60 3/16/18 16:00 98 30 110/50 94 Mechanical Ventilator 60 16/18 16:00 97 16/18 16:00 60 1618 16:00 97 18 15:00 98 28 104/45 95 Mechanical Ventilator 60 09/26/18 14:41 101 26 60 3/16/18 14:36 104 114/26 16/18 14:00 102 33 117/55 96 Mechanical Ventilator 60 09/26/18 13:00 104 33 114/26 96 16/18 12:56 105 29 60 16/18 12:00 99.1 100 22 114/26 94 Mechanical Ventilator 60 99.1 18 12:00 60 18 12:00 100 18 11:03 95 27 60 18 11:00 105 22 115/52 94 18 10:00 98.8 102 22 118/45 94 98.8 09/26/17 09:00 98 25 110/52 95 Mechanical Ventilator 60 09/26/17 08:46 100 33 60 18 08:00 95 18 08:00 98.9 104 27 119/53 93 Mechanical Ventilator 60 98.9 18 08:00 60 18 07:17 100 32 60 18 07:00 101 33 117/49 93 Mechanical Ventilator 60 09/26/17 06:01 100 122/52 18 06:00 105 33 120/60 93 Mechanical Ventilator 60 09/26/17 05:00 101 33 125/63 93 Mechanical Ventilator 60 09/26/17 05:00 105 36 122/52 94 18 04:56 100 31 60 18 04:00 60 18 04:00 100 32 117/54 96 16/18 04:00 95 18 04:00 99.4 97 32 107/47 96 Mechanical Ventilator 60 99.4 18 03:00 97 32 107/47 96 Mechanical Ventilator 60 1618 03:00 97 35 107/47 96 16/18 02:57 99 28 60 1618 02:00 99 34 107/47 96 Mechanical Ventilator 60 18 02:00 96 34 111/53 96 09/26/17 01:00 98 29 121/57 98 Mechanical Ventilator 60 09/26/17 01:00 94 30 121/57 99 09/26/17 00:51 97 27 60 09/26/17 00:00 96 09/26/17 00:00 98.8 95 29 112/50 98 Mechanical Ventilator 60 98.8 09/26/17 00:00 65 09/26/17 00:00 96 33 117/47 94 09/25/17 23:02 94 26 115/50 96 09/25/17 23:00 95 29 115/50 98 Mechanical Ventilator 60 09/25/17 23:00 96 29 96 09/25/17 22:54 98 33 122/53 96 09/25/17 22:50 98 24 125/57 94 09/25/17 22:47 94 30 60 09/25/17 22:14 91 115/57 09/25/17 22:00 97 28 115/57 97 09/25/17 22:00 95 29 125/57 97 Mechanical Ventilator 60 09/25/17 21:00 92 26 115/57 96 Mechanical Ventilator 60 09/25/17 21:00 92 19 113/47 97 09/25/17 20:51 99 29 60 Intake and Output 09/25/17 09/26/17 19:00 07:00 Intake Total 882 ml 720 ml Output Total 450 ml 550 ml Balance 432 ml 170 ml Intake Free Water 100 ml 180 ml IV Total 112 ml Tube Feeding 570 ml 540 ml Other 100 ml Output Urine Total 450 ml 550 ml # Bowel Movements 2 6 Laboratory Tests 09/26/17 04:50: White Blood Count 13.9H, Red Blood Count 2.63L, Hemoglobin 8.6L, Hematocrit 26.8L, Mean Corpuscular Volume 102H, Mean Corpuscular Hemoglobin 32.6H, Mean Corpuscular Hemoglobin Concent 31.9L, Red Cell Distribution Width 24.9H, Platelet Count 26L, Mean Platelet Volume 14.9H, Neutrophils (%) (Auto) , Lymphocytes (%) (Auto) , Monocytes (%) (Auto) , Eosinophils (%) (Auto) , Basophils (%) (Auto) , Differential Total Cells Counted 100, Neutrophils % ( Manual) 90H, Lymphocytes % (Manual) 3L, Monocytes % (Manual) 4, Eosinophils % ( Manual) 2, Basophils % (Manual) 0, Band Neutrophils 1, Platelet Estimate DecreasedL, Platelet Morphology Normal, Polychromasia 1+, Hypochromasia 1+, Anisocytosis 3+, Macrocytosis 1+, Sodium Level 155H, Potassium Level 4.3, Chloride Level 120H, Carbon Dioxide Level 26, Anion Gap 9, Blood Urea Nitrogen 45H, Creatinine 1.0, Estimat Glomerular Filtration Rate , Glucose Level 106#, Calcium Level 8.1L, Phosphorus Level 5.3H, Magnesium Level 2.1, Total Bilirubin 1.2H, Direct Bilirubin 0.6H, Aspartate Amino Transf (AST/SGOT) 42H, Alanine Aminotransferase (ALT/SGPT) 29, Alkaline Phosphatase 830H, Total Protein 5.0L, Albumin 1.5L, Globulin 3.5, Albumin/Globulin Ratio 0.4L Height (Feet): 5 Height (Inches): 0.00 Weight (Pounds): 108 General Appearance: no apparent distress, lethargic, confused Dary Nixon M.D. Sep 26, 2017 20:48
[2017-09-26] MEDS: Miralax 17gm pkt ORAL SCH (20:53)
[2017-09-26] MEDS: Amikacin 500 MG in NS 110 ML IV SCH (23:28)
[2017-09-27] VITALS (25 sets, daily range): BP systolic 101–139; BP diastolic 45–61
[2017-09-27] MEDS: metroNIDAZOLE 500mg tab ORAL SCH ×3 (05:45→21:48)
[2017-09-27] MEDS: NovoLOG Insulin Flexpen SUBQ SCH ×3 (05:46→18:15)
[2017-09-27] MEDS: dilTIAZem HCl 30mg tab NG SCH ×3 (05:47→21:48)
[2017-09-27 06:17] LABS: MEAN CORPUSCULAR VOLUME 104 FL (80-99); PLATELET COUNT 36 K/UL (150-450); RED CELL DISTRIBUTION WIDTH 24.2 % (11.6-14.8); WHITE BLOOD COUNT 12.6 K/UL (4.8-10.8)
[2017-09-27 06:39] LABS: ALANINE AMINOTRANSFERASE 19 U/L (12-78); ALBUMIN 1.4 G/DL (3.4-5.0); ALBUMIN/GLOBULIN RATIO 0.4 (1.0-2.7); ALKALINE PHOSPHATASE 758 U/L (46-116); ANION GAP 8 mmol/L (5-15); ASPARTATE AMINO TRANSFERASE 36 U/L (15-37); BILIRUBIN,TOTAL 1.1 MG/DL (0.2-1.0); BLOOD UREA NITROGEN 58 mg/dL (7-18); CALCIUM 8.5 MG/DL (8.5-10.1); CARBON DIOXIDE 26 MMOL/L (21-32); CHLORIDE 121 MMOL/L (98-107); POTASSIUM 4.3 MMOL/L (3.5-5.1); SODIUM 155 MMOL/L (136-145)
[2017-09-27 06:41] LABS: BILIRUBIN,DIRECT 0.4 MG/DL (0.0-0.3)
--- NOTE | 2017-09-27 09:21 | Pulmonolgy Critical Care Note ---
Critical Care - Asmt/Plan Problems: (1) ARDS (adult respiratory distress syndrome) (2) Aspiration pneumonia (3) Anemia (4) Thrombocytopenia (5) Diabetes mellitus (6) Protein-calorie malnutrition, severe Assessment/Plan: improving overall Respiratory: monitor respiratory rate, adjust FIO2 Cardiac: continue pressors Renal: F/U I&O Infectious Disease: check cultures Gastrointestinal: continue feedings/current rate, hold feedings Endocrine: monitor blood sugar, check TSH, check HgA1C Neurologic: PRN Ativan Affect: PRN ativan Prophylaxis: Heparin Disposition: keep in ICU Critical Care - Objective Last 24 Hour Vital Signs Date Time Temp Pulse Resp B/P (MAP) Pulse Ox O2 Delivery O2 Flow Rate FiO2 09/27/17 09:00 100 27 116/55 95 Mechanical Ventilator 70 09/27/17 08:00 101 09/27/17 08:00 70 09/27/17 08:00 98.4 96 27 109/49 96 Mechanical Ventilator 70 98.4 09/27/17 07:17 100 24 70 09/27/17 07:00 98 27 119/59 96 Mechanical Ventilator 70 09/27/17 06:00 100 33 120/55 93 Mechanical Ventilator 70 09/27/17 05:47 95 110/55 09/27/17 05:38 93 28 110/55 94 Mechanical Ventilator 70 09/27/17 05:17 92 25 70 09/27/17 05:00 94 25 101/53 97 Mechanical Ventilator 70 09/27/17 04:00 70 09/27/17 04:00 96 29 109/48 98 Mechanical Ventilator 70 09/27/17 03:42 99 30 70 09/27/17 03:04 97 09/27/17 03:00 84 26 104/59 96 Mechanical Ventilator 70 09/27/17 02:00 97 29 112/51 95 Mechanical Ventilator 70 09/27/17 01:00 100 27 108/55 94 Mechanical Ventilator 70 09/27/17 00:49 98 28 70 09/27/17 00:49 60 09/27/17 00:00 80 09/27/17 00:00 98.2 98 23 110/51 100 Mechanical Ventilator 80 98.2 09/26/17 23:23 102 09/26/17 23:07 100 09/26/17 23:07 96 35 60 09/26/17 23:00 99 27 132/60 99 Mechanical Ventilator 60 09/26/17 22:00 101 29 126/53 98 Mechanical Ventilator 60 09/26/17 21:44 98 118/59 09/26/17 21:37 98 33 118/59 97 Mechanical Ventilator 60 09/26/17 21:07 99 25 60 09/26/17 21:00 94 29 121/59 99 Mechanical Ventilator 60 09/26/17 20:00 98.6 98 30 121/50 98 Mechanical Ventilator 60 98.6 09/26/17 20:00 60 09/26/17 19:24 103 09/26/17 19:15 92 60 09/26/17 19:00 97 26 108/49 96 Mechanical Ventilator 60 09/26/17 18:00 94 26 101/49 94 Mechanical Ventilator 60 09/26/17 17:02 99 24 60 09/26/17 17:00 98.7 98 30 109/47 94 Mechanical Ventilator 60 98.7 09/26/17 16:00 60 09/26/17 16:00 98 30 110/50 94 Mechanical Ventilator 60 09/26/17 16:00 97 09/26/17 16:00 60 09/26/17 16:00 97 09/26/17 15:00 98 28 104/45 95 Mechanical Ventilator 60 09/26/17 14:41 101 26 60 09/26/17 14:36 104 114/26 09/26/17 14:00 102 33 117/55 96 Mechanical Ventilator 60 09/26/17 13:00 104 33 114/26 96 09/26/17 12:56 105 29 60 09/26/17 12:00 99.1 100 22 114/26 94 Mechanical Ventilator 60 99.1 09/26/17 12:00 60 09/26/17 12:00 100 09/26/17 11:03 95 27 60 09/26/17 11:00 105 22 115/52 94 09/26/17 10:00 98.8 102 22 118/45 94 98.8 Status: awake Condition: critical Neck: full ROM Lungs: clear Heart: HR/BP unstable Abdomen: feeding tube Extremities: no C/C/E Decubiti: stage Accucheck: 150 Critical Care - Subjective ROS Limited/Unobtainable: Yes ICU Day: 16 Condition: critical EKG Rhythm: Sinus Rhythm FI02: 70 Vent Support Breath Rate: 18 Vent Support Mode: AC Vent Tidal Volume: 500 Sputum Amount: Small PEEP: 5.0 PIP: 38 Secretions: small Tube Feeding Amount: 45 I&O: Intake and Output 09/26/17 09/27/17 19:00 07:00 Intake Total 640 ml 1122 ml Output Total 420 ml 605 ml Balance 220 ml 517 ml Intake Free Water 100 ml 200 ml IV Total 112 ml Tube Feeding 540 ml 540 ml Other 270 ml Output Urine Total 420 ml 605 ml # Bowel Movements 3 4 CXR: no change ET-Tube: 7.5 ET Position: 20 Labs: Laboratory Tests Test 09/27/17 04:30 White Blood Count 12.6 K/UL (4.8-10.8) H Red Blood Count 2.50 M/UL (4.20-5.40) L Hemoglobin 8.0 G/DL (12.0-16.0) L Hematocrit 26.0 % (37.0-47.0) L Mean Corpuscular Volume 104 FL (80-99) H Mean Corpuscular Hemoglobin 32.0 PG (27.0-31.0) H Mean Corpuscular Hemoglobin Concent 30.8 G/DL (32.0-36.0) L Red Cell Distribution Width 24.2 % (11.6-14.8) H Platelet Count 36 K/UL (150-450) L Mean Platelet Volume 14.1 FL (6.5-10.1) H Neutrophils (%) (Auto) % (45.0-75.0) Lymphocytes (%) (Auto) % (20.0-45.0) Monocytes (%) (Auto) % (1.0-10.0) Eosinophils (%) (Auto) % (0.0-3.0) Basophils (%) (Auto) % (0.0-2.0) Differential Total Cells Counted 100 Neutrophils % (Manual) 91 % (45-75) H Lymphocytes % (Manual) 5 % (20-45) L Monocytes % (Manual) 3 % (1-10) Eosinophils % (Manual) 1 % (0-3) Basophils % (Manual) 0 % (0-2) Band Neutrophils 0 % (0-8) Platelet Estimate Decreased L Platelet Morphology Normal Polychromasia 1+ Hypochromasia 1+ Anisocytosis 2+ Macrocytosis 1+ Sodium Level 155 MMOL/L (136-145) H Potassium Level 4.3 MMOL/L (3.5-5.1) Chloride Level 121 MMOL/L (98-107) H Carbon Dioxide Level 26 MMOL/L (21-32) Anion Gap 8 mmol/L (5-15) Blood Urea Nitrogen 58 mg/dL (7-18) H Creatinine 1.0 MG/DL (0.55-1.30) Estimat Glomerular Filtration Rate mL/min (>60) Glucose Level 128 MG/DL (74-106) H Calcium Level 8.5 MG/DL (8.5-10.1) Total Bilirubin 1.1 MG/DL (0.2-1.0) H Direct Bilirubin 0.4 MG/DL (0.0-0.3) H Aspartate Amino Transf (AST/SGOT) 36 U/L (15-37) Alanine Aminotransferase (ALT/SGPT) 19 U/L (12-78) Alkaline Phosphatase 758 U/L (46-116) H Pro-B-Type Natriuretic Peptide 5207 pg/mL (0-125) H Total Protein 5.2 G/DL (6.4-8.2) L Albumin 1.4 G/DL (3.4-5.0) L Globulin 3.8 g/dL Albumin/Globulin Ratio 0.4 (1.0-2.7) L Tayler Liu MD Sep 27, 2017 09:21
[2017-09-27] MEDS: Ketotifen Fumarate 0.035% 5ml BOTH EYES SCH (09:45)
[2017-09-27] MEDS: Acetaminophen 650mg/20.3ml NG PRN ×2 (10:26→16:49)
--- NOTE | 2017-09-27 10:55 | Diagnostic Imaging Report ---
Indication: Dyspnea Technique: Portable AP view of the chest Comparison: 09/25/2017 Findings: Endotracheal and NG tube unchanged in position. Heart size and mediastinal contours are unchanged. There is persistent lateral interstitial and patchy airspace opacities. No appreciable pneumothorax. Since structures are stable Impression: Extensive interstitial and bilateral airspace opacities without significant interval change compared to exam 2 days prior.
[2017-09-27] MEDS ORDERED: Tubing Blood Filter IV ONE (11:19)
[2017-09-27] MEDS ORDERED: NS 275ml ONE (11:19)
--- NOTE | 2017-09-27 11:40 | General Progress Note ---
Assessment/Plan Assessment/Plan #. Leukocytosis likely related to underlying pneumonia infection. --> On antibiotic treatment. --> Wbc count downtrended from yesterday. #. Thrombocytopenia, severe and progressive, acute onset, likely secondary to underlying infection, aspiration pneumonia versus HIT. --> Antibody test is pending. Heparin has been discontinued on 09/18/2017. --> Duplex of the lower extremities is negative, therefore less likely HIT and other causes are more likely such as underlying infection. --> Platelets goal >20k, transfuse if necessary. --> Has Remained low past few days. On antibiotic treatment. #. Anemia due to underlying chronic disease. Continue to closely monitor. --> Hemoglobin goal is above 7. --> Transfuse as necessary --> Anemia workup has been reviewed at this point. #. Community-acquired pneumonia versus hospital-acquired. --> The patient on broad-spectrum antibiotics. --> Improved. --> Urine culture growing E. coli. Continue to closely monitor. #. Transaminitis. She has been seen by GI Service. Continue to closely monitor. #. Low-grade fever. Closely observe. #. Encephalopathy. Subjective Date patient seen: Sep 26, 2017 Constitutional: Denies: no symptoms, chills, diaphoresis, fever, malaise, weakness, other HEENT: Denies: no symptoms, eye pain, blurred vision, tearing, double vision, ear pain, ear discharge, nose pain, nose congestion, throat pain, throat swelling, mouth pain, mouth swelling, other Cardiovascular: Denies: no symptoms, chest pain, edema, irregular heart rate, lightheadedness, palpitations, syncope, other Respiratory: Denies: no symptoms, cough, orthopnea, shortness of breath, SOB with excertion, SOB at rest, sputum, stridor, wheezing, other Gastrointestinal/Abdominal: Denies: no symptoms, abdomen distended, abdominal pain, black stools, tarry stools, blood in stool, constipated, diarrhea, difficulty swallowing, nausea, poor appetite, poor fluid intake, rectal bleeding , vomiting, other Genitourinary: Denies: no symptoms, burning, discharge, frequency, flank pain, hematuria, incontinence, pain, urgency, other 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: Denies: no symptoms, anxiety, depressed, emotional problems, headache, numbness, paresthesia, pre-existing deficit, seizure, tingling, tremors, weakness, other Hematologic/Lymphatic: Reports: anemia Allergies: Coded Allergies: No Known Allergies (Verified , 11/18/08) Subjective Refused IV contrast CT. Encephalopathic. Platelets remain low. Objective Last 24 Hour Vital Signs Date Time Temp Pulse Resp B/P (MAP) Pulse Ox O2 Delivery O2 Flow Rate FiO2 09/27/17 10:45 105 29 70 09/27/17 10:26 98.4 09/27/17 10:00 106 27 128/58 96 Mechanical Ventilator 70 09/27/17 09:22 99 26 70 09/27/17 09:00 100 27 116/55 95 Mechanical Ventilator 70 09/27/17 08:00 101 09/27/17 08:00 70 09/27/17 08:00 98.4 96 27 109/49 96 Mechanical Ventilator 70 98.4 09/27/17 07:17 100 24 70 09/27/17 07:00 98 27 119/59 96 Mechanical Ventilator 70 09/27/17 06:00 100 33 120/55 93 Mechanical Ventilator 70 09/27/17 05:47 95 110/55 09/27/17 05:38 93 28 110/55 94 Mechanical Ventilator 70 09/27/17 05:17 92 25 70 09/27/17 05:00 94 25 101/53 97 Mechanical Ventilator 70 09/27/17 04:00 70 09/27/17 04:00 96 29 109/48 98 Mechanical Ventilator 70 09/27/17 03:42 99 30 70 09/27/17 03:04 97 09/27/17 03:00 84 26 104/59 96 Mechanical Ventilator 70 09/27/17 02:00 97 29 112/51 95 Mechanical Ventilator 70 09/27/17 01:00 100 27 108/55 94 Mechanical Ventilator 70 09/27/17 00:49 98 28 70 09/27/17 00:49 60 09/27/17 00:00 80 09/27/17 00:00 98.2 98 23 110/51 100 Mechanical Ventilator 80 98.2 09/26/17 23:23 102 09/26/17 23:07 100 09/26/17 23:07 96 35 60 09/26/17 23:00 99 27 132/60 99 Mechanical Ventilator 60 09/26/17 22:00 101 29 126/53 98 Mechanical Ventilator 60 09/26/17 21:44 98 118/59 09/26/17 21:37 98 33 118/59 97 Mechanical Ventilator 60 09/26/17 21:07 99 25 60 09/26/17 21:00 94 29 121/59 99 Mechanical Ventilator 60 09/26/17 20:00 98.6 98 30 121/50 98 Mechanical Ventilator 60 98.6 09/26/17 20:00 60 09/26/17 19:24 103 09/26/17 19:15 92 60 09/26/17 19:00 97 26 108/49 96 Mechanical Ventilator 60 09/26/17 18:00 94 26 101/49 94 Mechanical Ventilator 60 09/26/17 17:02 99 24 60 09/26/17 17:00 98.7 98 30 109/47 94 Mechanical Ventilator 60 98.7 09/26/17 16:00 60 09/26/17 16:00 98 30 110/50 94 Mechanical Ventilator 60 09/26/17 16:00 97 09/26/17 16:00 60 09/26/17 16:00 97 09/26/17 15:00 98 28 104/45 95 Mechanical Ventilator 60 09/26/17 14:41 101 26 60 09/26/17 14:36 104 114/26 09/26/17 14:00 102 33 117/55 96 Mechanical Ventilator 60 09/26/17 13:00 104 33 114/26 96 09/26/17 12:56 105 29 60 09/26/17 12:00 99.1 100 22 114/26 94 Mechanical Ventilator 60 99.1 09/26/17 12:00 60 09/26/17 12:00 100 Intake and Output 09/26/17 09/27/17 19:00 07:00 Intake Total 640 ml 1122 ml Output Total 420 ml 605 ml Balance 220 ml 517 ml Intake Free Water 100 ml 200 ml IV Total 112 ml Tube Feeding 540 ml 540 ml Other 270 ml Output Urine Total 420 ml 605 ml # Bowel Movements 3 4 Laboratory Tests 09/27/17 04:30: White Blood Count 12.6H, Red Blood Count 2.50L, Hemoglobin 8.0L, Hematocrit 26.0L, Mean Corpuscular Volume 104H, Mean Corpuscular Hemoglobin 32.0H, Mean Corpuscular Hemoglobin Concent 30.8L, Red Cell Distribution Width 24.2H, Platelet Count 36L, Mean Platelet Volume 14.1H, Neutrophils (%) (Auto) , Lymphocytes (%) (Auto) , Monocytes (%) (Auto) , Eosinophils (%) (Auto) , Basophils (%) (Auto) , Differential Total Cells Counted 100, Neutrophils % ( Manual) 91H, Lymphocytes % (Manual) 5L, Monocytes % (Manual) 3, Eosinophils % ( Manual) 1, Basophils % (Manual) 0, Band Neutrophils 0, Platelet Estimate DecreasedL, Platelet Morphology Normal, Polychromasia 1+, Hypochromasia 1+, Anisocytosis 2+, Macrocytosis 1+, Sodium Level 155H, Potassium Level 4.3, Chloride Level 121H, Carbon Dioxide Level 26, Anion Gap 8, Blood Urea Nitrogen 58H, Creatinine 1.0, Estimat Glomerular Filtration Rate , Glucose Level 128H, Calcium Level 8.5, Total Bilirubin 1.1H, Direct Bilirubin 0.4H, Aspartate Amino Transf (AST/SGOT) 36, Alanine Aminotransferase (ALT/SGPT) 19, Alkaline Phosphatase 758H, Pro-B-Type Natriuretic Peptide 5207H, Total Protein 5.2L, Albumin 1.4L, Globulin 3.8, Albumin/Globulin Ratio 0.4L Height (Feet): 5 Height (Inches): 0.00 Weight (Pounds): 111 General Appearance: agitated Respiratory/Chest: decreased breath sounds Abdomen: soft Johnny Sinha MD Sep 27, 2017 11:40
--- NOTE | 2017-09-27 13:07 | Infectious Diseases Prog Note ---
Assessment/Plan Assessment/Plan ASSESSMENT: The patient is a 76-year-old female w Fever, SP Leukocytosis , improving- r/o new infection, JOSETTE, bacteremia -Cdiff neg -09/22 sp cx C.a lbicans, Bcx NTD -u/a wbc 10-15, nit neg, leuk +2; ucx >100k C. albicans -Fungal sp cx p Community-acquired vs healthcare-associated pneumonia (the patient has been recently hospitalized in [facility]). -now ARDS- r/o fungal PNA - cxray 09/26 : no changes -CT chest 09/23: Diffuse extensive pulmonary parenchymal disease, with dense consolidation interspersed with groundglass opacities. Appearance nonspecific, possibilities include pulmonary edema, pneumonia, ARDS, hemorrhage. Bilateral pleural effusions, left greater than right. Diffuse edema of the subcutaneous fat, Multiple small thyroid nodules. All apparently under 1 cm, no further follow-up necessary. Degenerative changes of the shoulders 09/19 xray : Unchanged diffuse interstitial and airspace edema, Probable influenza despite of negative influenza screening test, s/p Rx Abnormal liver function tests, ALP>>> AST -?cholangitis, obstruction on CBD; AST and ALP had improved, now worsenign again -HIDA scan: Negative for evidence of cystic duct obstruction/acute cholecystitis. Common bile duct is demonstrated be patent, but emptying into the duodenum is delayed, not seen until 2 hours. Significance of this is uncertain. MRCP or CT scanning may be useful to clarify -CT abd/p 09/23: Evidence of anasarca, with diffuse edema subcutaneous and mesenteric fat, bilateral pleural effusions, possible pulmonary edema, trace ascites. Densities within the gallbladder, probably reflecting tiny gallstones, although these are not identifiable on recent ultrasound. Gallbladder wall edema is probably a manifestation of anasarca, as recent hepatobiliary scan was negative for acute cholecystitis. Old ununited fracture deformities of the right pelvis. Bilateral chronic appearing hip dislocations Ultrasound of the abdomen : Gallbladder sludge. No definite stones. 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 -R/o HIT. Abx and protonix could be also be contributors. VDRF / ARDS HTN GERD History of auditory hallucination. Depression. Anemia. Rheumatoid arthritis. History of gastritis. PLAN: -Continue Amikacin # 5 (abx d#9) and flagyl # 5 for now while awaiting cx and possible CT abd/w +/- ERCP- patient's WBC improving with current regimen 09/25 sp Fluconazole #3 (held due to rise ALP) 09/23 SP Meropenem #5, PO Vanco #2 09/21 SP tamiflu #10 09/19 SP vancomycin and Levaquin d# 18 -f/u repeat cx -f/u Asp ag, fungitell, Cocci ab, fungal sp cx Monitor CBC.; Trend WBC Monitor BMP.; Trend LFTs Monitor chest x-ray -GI, heme onc f/u Subjective Allergies: Coded Allergies: No Known Allergies (Verified , 11/18/08) Subjective afebrile Objective Vital Signs Last 24 Hour Vital Signs Date Time Temp Pulse Resp B/P (MAP) Pulse Ox O2 Delivery O2 Flow Rate FiO2 09/27/17 12:00 70 09/27/17 12:00 112 09/27/17 11:00 111 29 139/61 95 Mechanical Ventilator 70 09/27/17 10:45 105 29 70 09/27/17 10:26 98.4 09/27/17 10:00 106 27 128/58 96 Mechanical Ventilator 70 09/27/17 09:22 99 26 70 09/27/17 09:00 100 27 116/55 95 Mechanical Ventilator 70 09/27/17 08:00 101 09/27/17 08:00 70 09/27/17 08:00 98.4 96 27 109/49 96 Mechanical Ventilator 70 98.4 09/27/17 07:17 100 24 70 09/27/17 07:00 98 27 119/59 96 Mechanical Ventilator 70 09/27/17 06:00 100 33 120/55 93 Mechanical Ventilator 70 09/27/17 05:47 95 110/55 09/27/17 05:38 93 28 110/55 94 Mechanical Ventilator 70 09/27/17 05:17 92 25 70 09/27/17 05:00 94 25 101/53 97 Mechanical Ventilator 70 09/27/17 04:00 70 09/27/17 04:00 96 29 109/48 98 Mechanical Ventilator 70 09/27/17 03:42 99 30 70 18 03:04 97 18 03:00 84 26 104/59 96 Mechanical Ventilator 70 18 02:00 97 29 112/51 95 Mechanical Ventilator 70 18 01:00 100 27 108/55 94 Mechanical Ventilator 70 18 00:49 98 28 70 18 00:49 60 18 00:00 80 09/27/17 00:00 98.2 98 23 110/51 100 Mechanical Ventilator 80 98.2 18 23:23 102 18 23:07 100 18 23:07 96 35 60 18 23:00 99 27 132/60 99 Mechanical Ventilator 60 09/26/17 22:00 101 29 126/53 98 Mechanical Ventilator 60 18 21:44 98 118/59 18 21:37 98 33 118/59 97 Mechanical Ventilator 60 18 21:07 99 25 60 18 21:00 94 29 121/59 99 Mechanical Ventilator 60 18 20:00 98.6 98 30 121/50 98 Mechanical Ventilator 60 98.6 1618 20:00 60 1618 19:24 103 1618 19:15 92 60 18 19:00 97 26 108/49 96 Mechanical Ventilator 60 18 18:00 94 26 101/49 94 Mechanical Ventilator 60 18 17:02 99 24 60 18 17:00 98.7 98 30 109/47 94 Mechanical Ventilator 60 98.7 18 16:00 60 1618 16:00 98 30 110/50 94 Mechanical Ventilator 60 1618 16:00 97 16/18 16:00 60 1618 16:00 97 1618 15:00 98 28 104/45 95 Mechanical Ventilator 60 1618 14:41 101 26 60 16/18 14:36 104 114/26 16/18 14:00 102 33 117/55 96 Mechanical Ventilator 60 Height (Feet): 5 Height (Inches): 0.00 Weight (Pounds): 111 HEENT: anicteric Respiratory/Chest: lungs clear Cardiovascular: regular rhythm Abdomen: soft, non tender Laboratory Tests Test 09/27/17 04:30 White Blood Count 12.6 K/UL (4.8-10.8) H Red Blood Count 2.50 M/UL (4.20-5.40) L Hemoglobin 8.0 G/DL (12.0-16.0) L Hematocrit 26.0 % (37.0-47.0) L Mean Corpuscular Volume 104 FL (80-99) H Mean Corpuscular Hemoglobin 32.0 PG (27.0-31.0) H Mean Corpuscular Hemoglobin Concent 30.8 G/DL (32.0-36.0) L Red Cell Distribution Width 24.2 % (11.6-14.8) H Platelet Count 36 K/UL (150-450) L Mean Platelet Volume 14.1 FL (6.5-10.1) H Neutrophils (%) (Auto) % (45.0-75.0) Lymphocytes (%) (Auto) % (20.0-45.0) Monocytes (%) (Auto) % (1.0-10.0) Eosinophils (%) (Auto) % (0.0-3.0) Basophils (%) (Auto) % (0.0-2.0) Differential Total Cells Counted 100 Neutrophils % (Manual) 91 % (45-75) H Lymphocytes % (Manual) 5 % (20-45) L Monocytes % (Manual) 3 % (1-10) Eosinophils % (Manual) 1 % (0-3) Basophils % (Manual) 0 % (0-2) Band Neutrophils 0 % (0-8) Platelet Estimate Decreased L Platelet Morphology Normal Polychromasia 1+ Hypochromasia 1+ Anisocytosis 2+ Macrocytosis 1+ Sodium Level 155 MMOL/L (136-145) H Potassium Level 4.3 MMOL/L (3.5-5.1) Chloride Level 121 MMOL/L (98-107) H Carbon Dioxide Level 26 MMOL/L (21-32) Anion Gap 8 mmol/L (5-15) Blood Urea Nitrogen 58 mg/dL (7-18) H Creatinine 1.0 MG/DL (0.55-1.30) Estimat Glomerular Filtration Rate mL/min (>60) Glucose Level 128 MG/DL (74-106) H Calcium Level 8.5 MG/DL (8.5-10.1) Total Bilirubin 1.1 MG/DL (0.2-1.0) H Direct Bilirubin 0.4 MG/DL (0.0-0.3) H Aspartate Amino Transf (AST/SGOT) 36 U/L (15-37) Alanine Aminotransferase (ALT/SGPT) 19 U/L (12-78) Alkaline Phosphatase 758 U/L (46-116) H Pro-B-Type Natriuretic Peptide 5207 pg/mL (0-125) H Total Protein 5.2 G/DL (6.4-8.2) L Albumin 1.4 G/DL (3.4-5.0) L Globulin 3.8 g/dL Albumin/Globulin Ratio 0.4 (1.0-2.7) L Current Medications Medications (Trade) Dose Ordered Sig/Hermes Route PRN Reason Start Time Stop Time Status Last Admin Dose Admin Acetaminophen (Tylenol) 650 mg EVERY 6 HOURS PRN NG Fever/Headache/Mild Pain 09/13/17 20:45 10/13/17 20:44 09/27/17 10:26 Amikacin Protocol (Amikacin pharmacy to dose) 1 ea DAILY PRN MISC Per rx protocol 09/23/17 11:45 10/23/17 11:44 Amikacin Sulfate 500 mg/Sodium Chloride 112 ml @ 112 mls/hr Q36H IV 09/25/17 11:30 10/02/17 11:29 09/26/17 23:28 Clonidine HCl (Catapres Tab) 0.1 mg Q4H PRN ORAL SBP>160 UNRELIEVED BY HYDRALAZ 09/16/17 16:45 10/15/17 16:59 Dextrose (Dextrose 50%) STAT PRN IV Hypoglycemia 09/13/17 15:00 10/13/17 14:59 Diltiazem HCl (Cardizem) 30 mg EVERY 8 HOURS NG 09/18/17 22:00 10/18/17 21:59 09/27/17 05:47 Insulin Aspart (NovoLOG) EVERY 6 HOURS SUBQ 09/17/17 12:00 10/17/17 11:59 09/27/17 05:46 Ketotifen Fumarate (Zatidor) 1 drop DAILY BOTH EYES 09/26/17 09:00 10/25/17 08:59 09/27/17 09:45 Metronidazole (Flagyl) 500 mg Q8HR ORAL 09/23/17 14:00 09/30/17 13:59 09/27/17 05:45 Polyethylene Glycol (Miralax) 17 gm BEDTIME ORAL 09/14/17 21:00 10/14/17 20:59 09/26/17 20:53 DEBBIE MURRY M.D. Sep 27, 2017 13:07
--- NOTE | 2017-09-27 13:11 | Nephrology Progress Note ---
Assessment/Plan Problem List: (1) ARDS (adult respiratory distress syndrome) (2) Electrolyte imbalance (3) Thrombocytopenia Assessment Na 155 Platelets 45 K (1) ARDS (adult respiratory distress syndrome) (2) Aspiration pneumonia (3) Protein-calorie malnutrition, severe (4) Diabetes mellitus (5) Anemia , aplastic by history (6) DM (7) UTI (8) Electrolyte imbalance (9) HTN (10) Depression (11) RA . Plan doing poorly water via NGT Adjust BP meds K and Phos supplement as needed Monitor renal parameters and urine output avoid nephrotoxics per orders discussed with RN Left ventricular ejection fraction estimated to be 55 %. Subjective ROS Limited/Unobtainable: Yes Objective Objective Last 24 Hour Vital Signs Date Time Temp Pulse Resp B/P (MAP) Pulse Ox O2 Delivery O2 Flow Rate FiO2 09/27/17 12:00 70 09/27/17 12:00 112 09/27/17 11:00 111 29 139/61 95 Mechanical Ventilator 70 09/27/17 10:45 105 29 70 09/27/17 10:26 98.4 09/27/17 10:00 106 27 128/58 96 Mechanical Ventilator 70 09/27/17 09:22 99 26 70 09/27/17 09:00 100 27 116/55 95 Mechanical Ventilator 70 09/27/17 08:00 101 09/27/17 08:00 70 09/27/17 08:00 98.4 96 27 109/49 96 Mechanical Ventilator 70 98.4 09/27/17 07:17 100 24 70 09/27/17 07:00 98 27 119/59 96 Mechanical Ventilator 70 09/27/17 06:00 100 33 120/55 93 Mechanical Ventilator 70 09/27/17 05:47 95 110/55 09/27/17 05:38 93 28 110/55 94 Mechanical Ventilator 70 09/27/17 05:17 92 25 70 09/27/17 05:00 94 25 101/53 97 Mechanical Ventilator 70 09/27/17 04:00 70 09/27/17 04:00 96 29 109/48 98 Mechanical Ventilator 70 09/27/17 03:42 99 30 70 09/27/17 03:04 97 09/27/17 03:00 84 26 104/59 96 Mechanical Ventilator 70 09/27/17 02:00 97 29 112/51 95 Mechanical Ventilator 70 09/27/17 01:00 100 27 108/55 94 Mechanical Ventilator 70 09/27/17 00:49 98 28 70 09/27/17 00:49 60 09/27/17 00:00 80 09/27/17 00:00 98.2 98 23 110/51 100 Mechanical Ventilator 80 98.2 09/26/17 23:23 102 09/26/17 23:07 100 09/26/17 23:07 96 35 60 09/26/17 23:00 99 27 132/60 99 Mechanical Ventilator 60 09/26/17 22:00 101 29 126/53 98 Mechanical Ventilator 60 09/26/17 21:44 98 118/59 09/26/17 21:37 98 33 118/59 97 Mechanical Ventilator 60 09/26/17 21:07 99 25 60 09/26/17 21:00 94 29 121/59 99 Mechanical Ventilator 60 09/26/17 20:00 98.6 98 30 121/50 98 Mechanical Ventilator 60 98.6 09/26/17 20:00 60 09/26/17 19:24 103 09/26/17 19:15 92 60 09/26/17 19:00 97 26 108/49 96 Mechanical Ventilator 60 09/26/17 18:00 94 26 101/49 94 Mechanical Ventilator 60 09/26/17 17:02 99 24 60 09/26/17 17:00 98.7 98 30 109/47 94 Mechanical Ventilator 60 98.7 09/26/17 16:00 60 09/26/17 16:00 98 30 110/50 94 Mechanical Ventilator 60 09/26/17 16:00 97 09/26/17 16:00 60 09/26/17 16:00 97 09/26/17 15:00 98 28 104/45 95 Mechanical Ventilator 60 09/26/17 14:41 101 26 60 09/26/17 14:36 104 114/26 09/26/17 14:00 102 33 117/55 96 Mechanical Ventilator 60 Intake and Output 09/26/17 09/27/17 19:00 07:00 Intake Total 640 ml 1122 ml Output Total 420 ml 605 ml Balance 220 ml 517 ml Intake Free Water 100 ml 200 ml IV Total 112 ml Tube Feeding 540 ml 540 ml Other 270 ml Output Urine Total 420 ml 605 ml # Bowel Movements 3 4 Laboratory Tests 09/27/17 04:30: White Blood Count 12.6H, Red Blood Count 2.50L, Hemoglobin 8.0L, Hematocrit 26.0L, Mean Corpuscular Volume 104H, Mean Corpuscular Hemoglobin 32.0H, Mean Corpuscular Hemoglobin Concent 30.8L, Red Cell Distribution Width 24.2H, Platelet Count 36L, Mean Platelet Volume 14.1H, Neutrophils (%) (Auto) , Lymphocytes (%) (Auto) , Monocytes (%) (Auto) , Eosinophils (%) (Auto) , Basophils (%) (Auto) , Differential Total Cells Counted 100, Neutrophils % ( Manual) 91H, Lymphocytes % (Manual) 5L, Monocytes % (Manual) 3, Eosinophils % ( Manual) 1, Basophils % (Manual) 0, Band Neutrophils 0, Platelet Estimate DecreasedL, Platelet Morphology Normal, Polychromasia 1+, Hypochromasia 1+, Anisocytosis 2+, Macrocytosis 1+, Sodium Level 155H, Potassium Level 4.3, Chloride Level 121H, Carbon Dioxide Level 26, Anion Gap 8, Blood Urea Nitrogen 58H, Creatinine 1.0, Estimat Glomerular Filtration Rate , Glucose Level 128H, Calcium Level 8.5, Total Bilirubin 1.1H, Direct Bilirubin 0.4H, Aspartate Amino Transf (AST/SGOT) 36, Alanine Aminotransferase (ALT/SGPT) 19, Alkaline Phosphatase 758H, Pro-B-Type Natriuretic Peptide 5207H, Total Protein 5.2L, Albumin 1.4L, Globulin 3.8, Albumin/Globulin Ratio 0.4L Height (Feet): 5 Height (Inches): 0.00 Weight (Pounds): 111 General Appearance: no apparent distress Objective no change YAEL HANSEN Sep 27, 2017 13:11
--- NOTE | 2017-09-27 16:59 | Cardiac Electrophysiology PN ---
Assessment/Plan Assessment/Plan 1. Respiratory failure, due to underlying ARDS , pneumonia. Intubated on the vent. Already ruled out for myocardial infarction. Now on 70% Fio2 with PEEP of 5. Possible tracheostomy on Friday if Platelets OK and if family consents 2. Left bundle-branch block. No evidence of advanced heart block. 3. HTN and diastolic dysfunction. On Cardizem 30 q8 hr. Echo EF 55% 4. Hypernatremia and azotemia. Off Lasix per Dr Mayer 5. Pneumonia and sepsis on IV antibiotics by Dr. Hunter. 6. Psychiatric disorder. 7. Anasarca. 3rd spacing. Lasix when OK with Dr Mayer 8. Anemia with Hb 6.6 s/p PRBC. CT chest abdomen and pelvis without contrast no acute finding 9. Severe thrombocytopenia. 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 Back on 70% Fio2 and PEEP of 5. In sinus tach 110. RN at bedside Objective Last 24 Hour Vital Signs Date Time Temp Pulse Resp B/P (MAP) Pulse Ox O2 Delivery O2 Flow Rate FiO2 09/27/17 16:49 100.7 09/27/17 15:01 109 29 70 09/27/17 15:00 108 32 120/50 97 Mechanical Ventilator 70 09/27/17 14:00 106 33 116/60 95 Mechanical Ventilator 70 09/27/17 13:38 110 125/57 09/27/17 13:28 107 28 70 09/27/17 13:00 110 28 125/57 95 Mechanical Ventilator 70 09/27/17 12:00 98.5 111 28 127/54 96 Mechanical Ventilator 70 98.5 09/27/17 12:00 70 09/27/17 12:00 112 09/27/17 11:00 111 29 139/61 95 Mechanical Ventilator 70 09/27/17 10:45 105 29 70 09/27/17 10:26 98.4 09/27/17 10:00 106 27 128/58 96 Mechanical Ventilator 70 09/27/17 09:22 99 26 70 09/27/17 09:00 100 27 116/55 95 Mechanical Ventilator 70 09/27/17 08:00 101 09/27/17 08:00 70 09/27/17 08:00 98.4 96 27 109/49 96 Mechanical Ventilator 70 98.4 3/17/18 07:17 100 24 70 17/18 07:00 98 27 119/59 96 Mechanical Ventilator 70 17/18 06:00 100 33 120/55 93 Mechanical Ventilator 70 17/18 05:47 95 110/55 17/18 05:38 93 28 110/55 94 Mechanical Ventilator 70 17/18 05:17 92 25 70 17/18 05:00 94 25 101/53 97 Mechanical Ventilator 70 17/18 04:00 70 17/18 04:00 96 29 109/48 98 Mechanical Ventilator 70 17/18 03:42 99 30 70 17/18 03:04 97 17/18 03:00 84 26 104/59 96 Mechanical Ventilator 70 09/27/18 02:00 97 29 112/51 95 Mechanical Ventilator 70 17/18 01:00 100 27 108/55 94 Mechanical Ventilator 70 17/18 00:49 98 28 70 09/27/18 00:49 60 09/27/18 00:00 80 09/27/18 00:00 98.2 98 23 110/51 100 Mechanical Ventilator 80 98.2 16/18 23:23 102 16/18 23:07 100 16/18 23:07 96 35 60 16/18 23:00 99 27 132/60 99 Mechanical Ventilator 60 09/26/18 22:00 101 29 126/53 98 Mechanical Ventilator 60 09/26/18 21:44 98 118/59 16/18 21:37 98 33 118/59 97 Mechanical Ventilator 60 16/18 21:07 99 25 60 16/18 21:00 94 29 121/59 99 Mechanical Ventilator 60 16/18 20:00 98.6 98 30 121/50 98 Mechanical Ventilator 60 98.6 16/18 20:00 60 16/18 19:24 103 16/18 19:15 92 60 16/18 19:00 97 26 108/49 96 Mechanical Ventilator 60 16/18 18:00 94 26 101/49 94 Mechanical Ventilator 60 16/18 17:02 99 24 60 16/18 17:00 98.7 98 30 109/47 94 Mechanical Ventilator 60 98.7 Intake and Output 16/18 3/17/18 19:00 07:00 Intake Total 640 ml 1122 ml Output Total 420 ml 605 ml Balance 220 ml 517 ml Intake Free Water 100 ml 200 ml IV Total 112 ml Tube Feeding 540 ml 540 ml Other 270 ml Output Urine Total 420 ml 605 ml # Bowel Movements 3 4 Laboratory Tests Test 09/27/17 04:30 White Blood Count 12.6 K/UL (4.8-10.8) H Red Blood Count 2.50 M/UL (4.20-5.40) L Hemoglobin 8.0 G/DL (12.0-16.0) L Hematocrit 26.0 % (37.0-47.0) L Mean Corpuscular Volume 104 FL (80-99) H Mean Corpuscular Hemoglobin 32.0 PG (27.0-31.0) H Mean Corpuscular Hemoglobin Concent 30.8 G/DL (32.0-36.0) L Red Cell Distribution Width 24.2 % (11.6-14.8) H Platelet Count 36 K/UL (150-450) L Mean Platelet Volume 14.1 FL (6.5-10.1) H Neutrophils (%) (Auto) % (45.0-75.0) Lymphocytes (%) (Auto) % (20.0-45.0) Monocytes (%) (Auto) % (1.0-10.0) Eosinophils (%) (Auto) % (0.0-3.0) Basophils (%) (Auto) % (0.0-2.0) Differential Total Cells Counted 100 Neutrophils % (Manual) 91 % (45-75) H Lymphocytes % (Manual) 5 % (20-45) L Monocytes % (Manual) 3 % (1-10) Eosinophils % (Manual) 1 % (0-3) Basophils % (Manual) 0 % (0-2) Band Neutrophils 0 % (0-8) Platelet Estimate Decreased L Platelet Morphology Normal Polychromasia 1+ Hypochromasia 1+ Anisocytosis 2+ Macrocytosis 1+ Sodium Level 155 MMOL/L (136-145) H Potassium Level 4.3 MMOL/L (3.5-5.1) Chloride Level 121 MMOL/L (98-107) H Carbon Dioxide Level 26 MMOL/L (21-32) Anion Gap 8 mmol/L (5-15) Blood Urea Nitrogen 58 mg/dL (7-18) H Creatinine 1.0 MG/DL (0.55-1.30) Estimat Glomerular Filtration Rate mL/min (>60) Glucose Level 128 MG/DL (74-106) H Calcium Level 8.5 MG/DL (8.5-10.1) Total Bilirubin 1.1 MG/DL (0.2-1.0) H Direct Bilirubin 0.4 MG/DL (0.0-0.3) H Aspartate Amino Transf (AST/SGOT) 36 U/L (15-37) Alanine Aminotransferase (ALT/SGPT) 19 U/L (12-78) Alkaline Phosphatase 758 U/L (46-116) H Pro-B-Type Natriuretic Peptide 5207 pg/mL (0-125) H Total Protein 5.2 G/DL (6.4-8.2) L Albumin 1.4 G/DL (3.4-5.0) L Globulin 3.8 g/dL Albumin/Globulin Ratio 0.4 (1.0-2.7) L Objective HEAD AND NECK: Orally intubated. NG tube LUNGS: Coarse rhonchi bilaterally CARDIOVASCULAR: Tachy S1 and S2.No murmur ABDOMEN: Soft. EXTREMITIES: 1+ pitting edema. ROLF OLIVIA Sep 27, 2017 16:59
--- NOTE | 2017-09-27 17:38 | Internal Med Progress Note ---
Subjective Date of Service: Sep 27, 2017 Physician Name Sina Bowens Attending Physician Jesus Barahona MD Current Medications Medications (Trade) Dose Ordered Sig/Hermes Route PRN Reason Start Time Stop Time Status Last Admin Dose Admin Acetaminophen (Tylenol) 650 mg EVERY 6 HOURS PRN NG Fever/Headache/Mild Pain 09/13/17 20:45 10/13/17 20:44 09/27/17 16:49 Amikacin Protocol (Amikacin pharmacy to dose) 1 ea DAILY PRN MISC Per rx protocol 09/23/17 11:45 10/23/17 11:44 Amikacin Sulfate 500 mg/Sodium Chloride 112 ml @ 112 mls/hr Q36H IV 09/25/17 11:30 10/02/17 11:29 09/26/17 23:28 Clonidine HCl (Catapres Tab) 0.1 mg Q4H PRN ORAL SBP>160 UNRELIEVED BY HYDRALAZ 09/16/17 16:45 10/15/17 16:59 Dextrose (Dextrose 50%) STAT PRN IV Hypoglycemia 09/13/17 15:00 10/13/17 14:59 Diltiazem HCl (Cardizem) 30 mg EVERY 8 HOURS NG 09/18/17 22:00 10/18/17 21:59 09/27/17 13:38 Insulin Aspart (NovoLOG) EVERY 6 HOURS SUBQ 09/17/17 12:00 10/17/17 11:59 09/27/17 13:08 Ketotifen Fumarate (Zatidor) 1 drop DAILY BOTH EYES 09/26/17 09:00 10/25/17 08:59 09/27/17 09:45 Metronidazole (Flagyl) 500 mg Q8HR ORAL 09/23/17 14:00 09/30/17 13:59 09/27/17 13:38 Pantoprazole (Protonix) 40 mg DAILY ORAL 09/28/17 09:00 10/28/17 08:59 Polyethylene Glycol (Miralax) 17 gm BEDTIME ORAL 09/14/17 21:00 10/14/17 20:59 09/26/17 20:53 Allergies: Coded Allergies: No Known Allergies (Verified , 11/18/08) ROS Limited/Unobtainable: Yes Subjective 76 YO F admitted with Shortness of breath, now respiratory failure. Intubated and sedated. Cover for Internal Med-Dr. Jun. ICU . Low Grade fever Objective Last Vital Signs Date Time Temp Pulse Resp B/P (MAP) Pulse Ox O2 Delivery O2 Flow Rate FiO2 09/27/17 17:27 96 26 70 09/27/17 16:49 100.7 09/27/17 15:00 120/50 97 Mechanical Ventilator Laboratory Tests Test 09/27/17 04:30 White Blood Count 12.6 K/UL (4.8-10.8) H Red Blood Count 2.50 M/UL (4.20-5.40) L Hemoglobin 8.0 G/DL (12.0-16.0) L Hematocrit 26.0 % (37.0-47.0) L Mean Corpuscular Volume 104 FL (80-99) H Mean Corpuscular Hemoglobin 32.0 PG (27.0-31.0) H Mean Corpuscular Hemoglobin Concent 30.8 G/DL (32.0-36.0) L Red Cell Distribution Width 24.2 % (11.6-14.8) H Platelet Count 36 K/UL (150-450) L Mean Platelet Volume 14.1 FL (6.5-10.1) H Neutrophils (%) (Auto) % (45.0-75.0) Lymphocytes (%) (Auto) % (20.0-45.0) Monocytes (%) (Auto) % (1.0-10.0) Eosinophils (%) (Auto) % (0.0-3.0) Basophils (%) (Auto) % (0.0-2.0) Differential Total Cells Counted 100 Neutrophils % (Manual) 91 % (45-75) H Lymphocytes % (Manual) 5 % (20-45) L Monocytes % (Manual) 3 % (1-10) Eosinophils % (Manual) 1 % (0-3) Basophils % (Manual) 0 % (0-2) Band Neutrophils 0 % (0-8) Platelet Estimate Decreased L Platelet Morphology Normal Polychromasia 1+ Hypochromasia 1+ Anisocytosis 2+ Macrocytosis 1+ Sodium Level 155 MMOL/L (136-145) H Potassium Level 4.3 MMOL/L (3.5-5.1) Chloride Level 121 MMOL/L (98-107) H Carbon Dioxide Level 26 MMOL/L (21-32) Anion Gap 8 mmol/L (5-15) Blood Urea Nitrogen 58 mg/dL (7-18) H Creatinine 1.0 MG/DL (0.55-1.30) Estimat Glomerular Filtration Rate mL/min (>60) Glucose Level 128 MG/DL (74-106) H Calcium Level 8.5 MG/DL (8.5-10.1) Total Bilirubin 1.1 MG/DL (0.2-1.0) H Direct Bilirubin 0.4 MG/DL (0.0-0.3) H Aspartate Amino Transf (AST/SGOT) 36 U/L (15-37) Alanine Aminotransferase (ALT/SGPT) 19 U/L (12-78) Alkaline Phosphatase 758 U/L (46-116) H Pro-B-Type Natriuretic Peptide 5207 pg/mL (0-125) H Total Protein 5.2 G/DL (6.4-8.2) L Albumin 1.4 G/DL (3.4-5.0) L Globulin 3.8 g/dL Albumin/Globulin Ratio 0.4 (1.0-2.7) L Intake and Output 09/26/17 09/27/17 19:00 07:00 Intake Total 640 ml 1122 ml Output Total 420 ml 605 ml Balance 220 ml 517 ml Intake Free Water 100 ml 200 ml IV Total 112 ml Tube Feeding 540 ml 540 ml Other 270 ml Output Urine Total 420 ml 605 ml # Bowel Movements 3 4 Objective General Appearance: lethargic, thin EENT: normal ENT inspection Neck: non-tender, normal alignment, supple Cardiovascular: normal peripheral pulses, normal rate, regular rhythm, no gallop/murmur, no JVD Respiratory/Chest: Mechanical vent; respiratory distress, crackles/rales, rhonchi - bilaterally, expiratory wheezing Abdomen: normal bowel sounds, non tender, soft, no organomegaly, no mass Skin: normal pigmentation, warm/dry Assessment/Plan Problem List: (1) HTN (hypertension) Assessment & Plan: Currently hypotensive. (2) Arthritis, rheumatoid (3) Parkinsons disease (4) Aplastic anemia (5) GERD (gastroesophageal reflux disease) (6) Respiratory failure Assessment & Plan: Cont vent per pulmonary (7) Pneumonia (8) Dyspnea (9) Sepsis Assessment & Plan: Blood culture neg. Continue Amikacin and flagyl per ID (10) ARDS (adult respiratory distress syndrome) Assessment & Plan: See pulmonary note (11) UTI (urinary tract infection) Assessment & Plan: E.Coli. Continue levaquin (12) Anemia Assessment & Plan: S/P Transfusion 2 units PRBC (13) Diabetes mellitus, type II Assessment & Plan: Continue novolog sliding scale (14) Leukocytosis Assessment & Plan: Worsening. See ID note. Start amikacin and fluconazole (15) Thrombocytopenia Status: not improved SINA BOWENS Sep 27, 2017 17:38
[2017-09-27] MEDS: Miralax 17gm pkt ORAL SCH (21:00)
[2017-09-28] VITALS (24 sets, daily range): BP systolic 106–147; BP diastolic 45–57
[2017-09-28] MEDS: NovoLOG Insulin Flexpen SUBQ SCH ×4 (00:01→17:30)
[2017-09-28 04:27] LABS: HEMATOCRIT 25.8 % (37.0-47.0); MEAN CORPUSCULAR VOLUME 104 FL (80-99); PLATELET COUNT 47 K/UL (150-450); RED BLOOD COUNT 2.48 M/UL (4.20-5.40); RED CELL DISTRIBUTION WIDTH 24.3 % (11.6-14.8)
--- NOTE | 2017-09-28 04:30 | Consultation ---
DATE OF CONSULTATION: 09/27/2017 GASTROENTEROLOGY CONSULTATION CONSULTING PHYSICIAN: Franklin Walton M.D. CHIEF COMPLAINT: Abnormal liver function tests. HISTORY OF PRESENT ILLNESS: Most of history per chart. The patient is a 76-year-old Ethiopian female, intubated in ICU with ARDS. GI consult requested for further evaluation of abnormal liver function tests, stool OB positive, anemia, nutrition, and hypoalbuminemia. The patient has been admitted to the hospital and he has been here for a while. She has been admitted actually to be exactly for about 16 days now. She has respiratory failure, thrombocytopenia, hypoalbuminemia, and dysphagia. PAST MEDICAL HISTORY: 1. History of hypertension. 2. Esophagitis. 3. Gastritis. 4. History of colonic polyps. 5. GERD. 6. Arthritis. 7. Diabetes. 8. Anemia. PAST SURGICAL HISTORY: Unknown. MEDICATIONS: Please see medication reconciliation list. ALLERGIES: No known drug allergies. SOCIAL HISTORY: No history of tobacco, alcohol, or drug abuse. FAMILY HISTORY: Noncontributory. REVIEW OF SYSTEMS: Unable to obtain. PHYSICAL EXAMINATION: VITAL SIGNS: Temperature is 98.4 degrees, pulse is 112, respirations 29, and blood pressure is 139/61. HEENT: Normocephalic and atraumatic. Pale conjunctivae. NECK: Supple. No evidence of obvious lymphadenopathy. CARDIOVASCULAR: Tachy, regular rate plus S1 and S2. LUNGS: Decreased breath sounds bilaterally and diffusely. ABDOMEN: Soft and nontender. No rebound. No guarding. No peritoneal sign. EXTREMITIES: There is both upper and lower extremity anasarca. LABORATORY AND DIAGNOSTIC DATA: Sodium is 165, potassium 3.4, BUN is 41, and creatinine is 0.8. Alkaline phosphatase is 473, AST of 87, and ALT of 75. Bilirubin is 1.1 and direct bilirubin is 0.4. is 758. ASSESSMENT AND PLAN: The patient is a 76-year-old female with current gastrointestinal problems. 1. Microcytic anemia. 2. Stool OB positive. 3. Dysphagia with NG tube feeding. 4. Abnormal liver function tests. 5. Questionable gallstones. PLAN: Increase the tube feeding to 55 mL an hour. We are going to plan to increase her tube feeding to 60 mL an hour. We will give her a dose of albumin and with Lasix to diurese a little bit better because she has anasarca. We are going to start on Protonix once a day daily for GI prophylaxis. Monitor hemoglobin and hematocrit. Check stool for OB, again, another one. In terms of abnormal liver function tests, this is most probably secondary to other systemic problem including ARDS, sepsis, doubt the patient has a biliary stone. Consider repeating a liver function test on daily basis. If continues to rise, we will recommend either repeat abdominal ultrasound over endoscopic ultrasound. At this time, I doubt the patient is stable for endoscopic ultrasound. We will follow. I want to thank, Dr. Encinas, for this kind referral. Franklin Walton M.D. DR: MISTY JOB#: [id number] CC: Yair Encinas M.D.; Fax#: [phone]
[2017-09-28 04:34] LABS: INR 1.5 (0.9-1.1)
[2017-09-28 04:41] LABS: ALANINE AMINOTRANSFERASE 18 U/L (12-78); ALBUMIN/GLOBULIN RATIO 0.5 (1.0-2.7); ALKALINE PHOSPHATASE 860 U/L (46-116); ANION GAP 6 mmol/L (5-15); ASPARTATE AMINO TRANSFERASE 40 U/L (15-37); BILIRUBIN,TOTAL 1.6 MG/DL (0.2-1.0); BLOOD UREA NITROGEN 69 mg/dL (7-18); CALCIUM 9.3 MG/DL (8.5-10.1); CARBON DIOXIDE 30 MMOL/L (21-32); CHLORIDE 122 MMOL/L (98-107); CREATININE 1.1 MG/DL (0.55-1.30); PHOSPHORUS 5.2 MG/DL (2.5-4.9); POTASSIUM 4.1 MMOL/L (3.5-5.1); SODIUM 157 MMOL/L (136-145)
[2017-09-28 04:48] LABS: BILIRUBIN,DIRECT 1.1 MG/DL (0.0-0.3)
[2017-09-28] MEDS: dilTIAZem HCl 30mg tab NG SCH ×3 (05:32→22:10)
[2017-09-28] MEDS: metroNIDAZOLE 500mg tab ORAL SCH ×3 (05:32→22:10)
[2017-09-28] MEDS: Ketotifen Fumarate 0.035% 5ml BOTH EYES SCH (08:54)
--- NOTE | 2017-09-28 09:43 | General Progress Note ---
Assessment/Plan Problem List: (1) Transaminitis ICD Codes: R74.0 - Nonspecific elevation of levels of transaminase and lactic acid dehydrogenase [LDH] SNOMED: 076537548, 349944481 (2) Anemia ICD Codes: D64.9 - Anemia, unspecified SNOMED: 582856354 (3) Diabetes mellitus ICD Codes: E11.9 - Type 2 diabetes mellitus without complications SNOMED: 90956755 (4) Respiratory failure ICD Codes: J96.90 - Respiratory failure, unspecified, unspecified whether with hypoxia or hypercapnia SNOMED: 347124753 Qualifiers: Qualified Codes: J96.00 - Acute respiratory failure, unspecified whether with hypoxia or hypercapnia Assessment/Plan TF tolerated at 60 cc fu LFTS +/- EUS when patient is more stable albumin with lasix derek repeat labs in am Subjective ROS Limited/Unobtainable: No Allergies: Coded Allergies: No Known Allergies (Verified , 11/18/08) Subjective intubated in the ICU Objective Last 24 Hour Vital Signs Date Time Temp Pulse Resp B/P (MAP) Pulse Ox O2 Delivery O2 Flow Rate FiO2 09/28/17 08:36 89 22 70 09/28/17 08:00 70 09/28/17 08:00 99.0 95 26 122/51 98 Mechanical Ventilator 70 99.0 09/28/17 07:00 100 17 118/48 96 Mechanical Ventilator 70 09/28/17 06:58 92 21 70 09/28/17 06:00 103 24 110/48 98 Mechanical Ventilator 70 09/28/17 05:34 95 25 70 09/28/17 05:32 112 112/50 09/28/17 05:00 99 24 112/50 98 Mechanical Ventilator 70 09/28/17 04:09 95 25 70 09/28/17 04:00 98.1 101 17 123/55 98 Mechanical Ventilator 70 98.1 09/28/17 04:00 70 09/28/17 03:24 99 09/28/17 03:00 95 25 110/50 99 Mechanical Ventilator 70 09/28/17 02:00 98 26 111/50 100 Mechanical Ventilator 70 09/28/17 01:00 104 29 124/53 96 Mechanical Ventilator 70 09/28/17 00:40 97 35 70 09/28/17 00:00 70 09/28/17 00:00 98.6 100 35 110/55 93 Mechanical Ventilator 70 98.6 317/18 23:05 97 3/17/18 23:00 97 34 112/54 95 Mechanical Ventilator 70 3/17/18 22:08 94 23 70 3/17/18 22:00 97 34 115/54 98 Mechanical Ventilator 70 3/17/18 21:48 94 111/56 3/17/18 21:00 92 23 110/45 100 Mechanical Ventilator 70 3/17/18 20:00 98.1 93 8 111/55 100 Mechanical Ventilator 70 98.1 317/18 20:00 70 3/17/18 19:08 94 317/18 19:00 92 22 111/53 98 Mechanical Ventilator 70 317/18 18:49 95 26 70 3/17/18 18:00 95 22 106/50 98 Mechanical Ventilator 70 317/18 17:53 70 317/18 17:27 96 26 70 317/18 17:19 97.9 317/18 17:00 97.9 97.9 317/18 17:00 94 22 130/57 98 Mechanical Ventilator 70 317/18 16:49 100.7 3/17/18 16:00 100.7 110 28 125/56 96 Mechanical Ventilator 70 100.7 317/18 16:00 112 17/18 15:01 109 29 70 317/18 15:00 108 32 120/50 97 Mechanical Ventilator 70 317/18 14:00 106 33 116/60 95 Mechanical Ventilator 70 317/18 13:38 110 125/57 317/18 13:28 107 28 70 317/18 13:00 110 28 125/57 95 Mechanical Ventilator 70 317/18 12:00 98.5 111 28 127/54 96 Mechanical Ventilator 70 98.5 17/18 12:00 70 317/18 12:00 112 17/18 11:00 111 29 139/61 95 Mechanical Ventilator 70 317/18 10:45 105 29 70 317/18 10:26 98.4 317/18 10:00 106 27 128/58 96 Mechanical Ventilator 70 Intake and Output 317/18 3/18/18 19:00 07:00 Intake Total 1085 ml 1220 ml Output Total 1410 ml 1455 ml Balance -325 ml -235 ml Intake Free Water 450 ml 300 ml Tube Feeding 635 ml 720 ml Other 200 ml Output Urine Total 1410 ml 1455 ml # Bowel Movements 1 3 Laboratory Tests 09/27/17 17:00: Stool Occult Blood [Pending] 09/28/17 03:55: White Blood Count 15.0H, Red Blood Count 2.48L, Hemoglobin 8.0L, Hematocrit 25.8L, Mean Corpuscular Volume 104H, Mean Corpuscular Hemoglobin 32.4H, Mean Corpuscular Hemoglobin Concent 31.0L, Red Cell Distribution Width 24.3H, Platelet Count 47L, Mean Platelet Volume 11.3H, Neutrophils (%) (Auto) , Lymphocytes (%) (Auto) , Monocytes (%) (Auto) , Eosinophils (%) (Auto) , Basophils (%) (Auto) , Differential Total Cells Counted 100, Neutrophils % ( Manual) 80H, Lymphocytes % (Manual) 7L, Monocytes % (Manual) 10, Eosinophils % ( Manual) 3, Basophils % (Manual) 0, Band Neutrophils 0, Platelet Estimate DecreasedL, Platelet Morphology Normal, Polychromasia 2+, Hypochromasia 1+, Anisocytosis 2+, Macrocytosis 2+, Prothrombin Time 15.8H, Prothromb Time International Ratio 1.5H, Sodium Level 157H, Potassium Level 4.1, Chloride Level 122H, Carbon Dioxide Level 30, Anion Gap 6, Blood Urea Nitrogen 69H, Creatinine 1.1, Estimat Glomerular Filtration Rate , Glucose Level 150H, Calcium Level 9.3, Phosphorus Level 5.2H, Magnesium Level 2.3, Total Bilirubin 1.6H, Direct Bilirubin 1.1H, Aspartate Amino Transf (AST/SGOT) 40H, Alanine Aminotransferase (ALT/SGPT) 18, Alkaline Phosphatase 860H, Total Protein 5.7L, Albumin 2.0L, Globulin 3.7, Albumin/Globulin Ratio 0.5L 09/28/17 07:02: Arterial Blood pH 7.470H, Arterial Blood Partial Pressure CO2 38.0, Arterial Blood Partial Pressure O2 77.9, Arterial Blood HCO3 27.5H, Arterial Blood Oxygen Saturation 94.2, Arterial Blood Base Excess 3.7, Luis A Test Positive Height (Feet): 5 Height (Inches): 0.00 Weight (Pounds): 109 General Appearance: lethargic EENT: normal ENT inspection Neck: supple Cardiovascular: tachycardia Respiratory/Chest: accessory muscle use Abdomen: non tender, soft Extremities: swelling KIT GONZALEZ Sep 28, 2017 09:43
[2017-09-28] MEDS ORDERED: Albuterol/Ipratropium 3ml neb HHN PRN (10:15)
--- NOTE | 2017-09-28 11:15 | Pulmonolgy Critical Care Note ---
Critical Care - Asmt/Plan Problems: (1) ARDS (adult respiratory distress syndrome) (2) Aspiration pneumonia (3) Anemia (4) Thrombocytopenia (5) Diabetes mellitus (6) Protein-calorie malnutrition, severe Assessment/Plan: improving overall, still on fio2 70%. Once the fio2 is less than 40 we start weaning. Respiratory: monitor respiratory rate, adjust FIO2, CXR Cardiac: continue to monitor HR/BP Renal: F/U I&O Infectious Disease: check cultures Gastrointestinal: continue feedings/current rate, hold feedings Endocrine: monitor blood sugar, check TSH Prophylaxis: Protonix Notes Reviewed: hosiery operator Discussed with: nurses, consultants, telephonic case managermultimedia project manager - Objective Last 24 Hour Vital Signs Date Time Temp Pulse Resp B/P (MAP) Pulse Ox O2 Delivery O2 Flow Rate FiO2 09/28/17 10:00 86 28 115/45 99 Mechanical Ventilator 70 09/28/17 09:00 98.9 102 26 121/52 98 Mechanical Ventilator 70 98.9 09/28/17 08:36 89 22 70 09/28/17 08:00 70 09/28/17 08:00 99.0 95 26 122/51 98 Mechanical Ventilator 70 99.0 09/28/17 08:00 92 09/28/17 07:00 100 17 118/48 96 Mechanical Ventilator 70 09/28/17 06:58 92 21 70 09/28/17 06:00 103 24 110/48 98 Mechanical Ventilator 70 09/28/17 05:34 95 25 70 09/28/17 05:32 112 112/50 09/28/17 05:00 99 24 112/50 98 Mechanical Ventilator 70 09/28/17 04:09 95 25 70 09/28/17 04:00 98.1 101 17 123/55 98 Mechanical Ventilator 70 98.1 09/28/17 04:00 70 09/28/17 03:24 99 09/28/17 03:00 95 25 110/50 99 Mechanical Ventilator 70 09/28/17 02:00 98 26 111/50 100 Mechanical Ventilator 70 09/28/17 01:00 104 29 124/53 96 Mechanical Ventilator 70 09/28/17 00:40 97 35 70 09/28/17 00:00 70 09/28/17 00:00 98.6 100 35 110/55 93 Mechanical Ventilator 70 98.6 09/27/17 23:05 97 09/27/17 23:00 97 34 112/54 95 Mechanical Ventilator 70 18 22:08 94 23 70 18 22:00 97 34 115/54 98 Mechanical Ventilator 70 18 21:48 94 111/56 18 21:00 92 23 110/45 100 Mechanical Ventilator 70 18 20:00 98.1 93 8 111/55 100 Mechanical Ventilator 70 98.1 09/27/17 20:00 70 18 19:08 94 18 19:00 92 22 111/53 98 Mechanical Ventilator 70 18 18:49 95 26 70 18 18:00 95 22 106/50 98 Mechanical Ventilator 70 09/27/17 17:53 70 09/27/17 17:27 96 26 70 18 17:19 97.9 09/27/17 17:00 97.9 97.9 09/27/17 17:00 94 22 130/57 98 Mechanical Ventilator 70 09/27/17 16:49 100.7 18 16:00 100.7 110 28 125/56 96 Mechanical Ventilator 70 100.7 18 16:00 112 18 15:01 109 29 70 18 15:00 108 32 120/50 97 Mechanical Ventilator 70 09/27/17 14:00 106 33 116/60 95 Mechanical Ventilator 70 18 13:38 110 125/57 18 13:28 107 28 70 18 13:00 110 28 125/57 95 Mechanical Ventilator 70 09/27/17 12:00 98.5 111 28 127/54 96 Mechanical Ventilator 70 98.5 09/27/17 12:00 70 09/27/17 12:00 112 Status: awake Condition: critical Neck: full ROM Lungs: chest wall tender Heart: HR/BP unstable Abdomen: active bowel sounds Extremities: no C/C/E, edema Decubiti: stage Accucheck: 169 Critical Care - Subjective ROS Limited/Unobtainable: No FI02: 70 Vent Support Breath Rate: 18 Vent Support Mode: AC Vent Tidal Volume: 500 Sputum Amount: Small PEEP: 5.0 PIP: 49 Tube Feeding Amount: 60 I&O: Intake and Output 09/27/17 09/28/17 19:00 07:00 Intake Total 1085 ml 1220 ml Output Total 1410 ml 1455 ml Balance -325 ml -235 ml Intake Free Water 450 ml 300 ml Tube Feeding 635 ml 720 ml Other 200 ml Output Urine Total 1410 ml 1455 ml # Bowel Movements 1 3 CXR: slight improvement ET-Tube: 7.5 ET Position: 20 Labs: Laboratory Tests Test 09/27/17 17:00 09/28/17 03:55 09/28/17 07:02 Stool Occult Blood Pending White Blood Count 15.0 K/UL (4.8-10.8) H Red Blood Count 2.48 M/UL (4.20-5.40) L Hemoglobin 8.0 G/DL (12.0-16.0) L Hematocrit 25.8 % (37.0-47.0) L Mean Corpuscular Volume 104 FL (80-99) H Mean Corpuscular Hemoglobin 32.4 PG (27.0-31.0) H Mean Corpuscular Hemoglobin Concent 31.0 G/DL (32.0-36.0) L Red Cell Distribution Width 24.3 % (11.6-14.8) H Platelet Count 47 K/UL (150-450) L Mean Platelet Volume 11.3 FL (6.5-10.1) H Neutrophils (%) (Auto) % (45.0-75.0) Lymphocytes (%) (Auto) % (20.0-45.0) Monocytes (%) (Auto) % (1.0-10.0) Eosinophils (%) (Auto) % (0.0-3.0) Basophils (%) (Auto) % (0.0-2.0) Differential Total Cells Counted 100 Neutrophils % (Manual) 80 % (45-75) H Lymphocytes % (Manual) 7 % (20-45) L Monocytes % (Manual) 10 % (1-10) Eosinophils % (Manual) 3 % (0-3) Basophils % (Manual) 0 % (0-2) Band Neutrophils 0 % (0-8) Platelet Estimate Decreased L Platelet Morphology Normal Polychromasia 2+ Hypochromasia 1+ Anisocytosis 2+ Macrocytosis 2+ Prothrombin Time 15.8 SEC (9.30-11.50) H Prothromb Time International Ratio 1.5 (0.9-1.1) H Sodium Level 157 MMOL/L (136-145) H Potassium Level 4.1 MMOL/L (3.5-5.1) Chloride Level 122 MMOL/L (98-107) H Carbon Dioxide Level 30 MMOL/L (21-32) Anion Gap 6 mmol/L (5-15) Blood Urea Nitrogen 69 mg/dL (7-18) H Creatinine 1.1 MG/DL (0.55-1.30) Estimat Glomerular Filtration Rate mL/min (>60) Glucose Level 150 MG/DL (74-106) H Calcium Level 9.3 MG/DL (8.5-10.1) Phosphorus Level 5.2 MG/DL (2.5-4.9) H Magnesium Level 2.3 MG/DL (1.8-2.4) Total Bilirubin 1.6 MG/DL (0.2-1.0) H Direct Bilirubin 1.1 MG/DL (0.0-0.3) H Aspartate Amino Transf (AST/SGOT) 40 U/L (15-37) H Alanine Aminotransferase (ALT/SGPT) 18 U/L (12-78) Alkaline Phosphatase 860 U/L (46-116) H Total Protein 5.7 G/DL (6.4-8.2) L Albumin 2.0 G/DL (3.4-5.0) L Globulin 3.7 g/dL Albumin/Globulin Ratio 0.5 (1.0-2.7) L Arterial Blood pH 7.470 (7.350-7.450) Arterial Blood Partial Pressure CO2 38.0 mmHg (35.0-45.0) Arterial Blood Partial Pressure O2 77.9 mmHg (75.0-100.0) Arterial Blood HCO3 27.5 mmol/L (22.0-26.0) H Arterial Blood Oxygen Saturation 94.2 % (92.0-98.0) Arterial Blood Base Excess 3.7 Luis A Test Positive Tayler Liu MD Sep 28, 2017 11:15
[2017-09-28] MEDS: Amikacin 500 MG in NS 110 ML IV SCH (12:04)
--- NOTE | 2017-09-28 12:15 | Diagnostic Imaging Report ---
Indication: Reason For Exam: DYSPNEA Technique: Portable AP view of the chest Comparison: 09/27/2017 Findings: Endotracheal tube tip above the level of the ludmila. Enteric tube tip in the stomach. Heart size and mediastinal contours are stable. Extensive bilateral interstitial and airspace disease without significant interval change. No appreciable pneumothorax. Osseous structures are stable. Impression: No significant interval change compared to one day prior.
--- NOTE | 2017-09-28 12:49 | General Progress Note ---
Assessment/Plan Assessment/Plan #. Leukocytosis likely related to underlying pneumonia infection. --> On antibiotic treatment. --> Wbc count downtrended from yesterday. #. Thrombocytopenia, severe and progressive, acute onset, likely secondary to underlying infection, aspiration pneumonia versus HIT. --> Antibody test is pending. Heparin has been discontinued on 09/18/2017. --> Duplex of the lower extremities is negative, therefore less likely HIT and other causes are more likely such as underlying infection. --> Platelets goal >20k, transfuse if necessary. --> Has Remained low past few days. On antibiotic treatment. #. Anemia due to underlying chronic disease. Continue to closely monitor. --> Hemoglobin goal is above 7. --> Transfuse as necessary --> Anemia workup has been reviewed at this point. --> hemoglobin levels downtrended from yesterday. Remains above goal, but monitor closely. #. Community-acquired pneumonia versus hospital-acquired. --> The patient on broad-spectrum antibiotics. --> Improved. --> Urine culture growing E. coli. Continue to closely monitor. #. Transaminitis. She has been seen by GI Service. Continue to closely monitor. #. Low-grade fever. Closely observe. #. Encephalopathy. Subjective Date patient seen: Sep 27, 2017 Constitutional: Denies: no symptoms, chills, diaphoresis, fever, malaise, weakness, other HEENT: Denies: no symptoms, eye pain, blurred vision, tearing, double vision, ear pain, ear discharge, nose pain, nose congestion, throat pain, throat swelling, mouth pain, mouth swelling, other Cardiovascular: Denies: no symptoms, chest pain, edema, irregular heart rate, lightheadedness, palpitations, syncope, other Respiratory: Denies: no symptoms, cough, orthopnea, shortness of breath, SOB with excertion, SOB at rest, sputum, stridor, wheezing, other Gastrointestinal/Abdominal: Denies: no symptoms, abdomen distended, abdominal pain, black stools, tarry stools, blood in stool, constipated, diarrhea, difficulty swallowing, nausea, poor appetite, poor fluid intake, rectal bleeding , vomiting, other Genitourinary: Denies: no symptoms, burning, discharge, frequency, flank pain, hematuria, incontinence, pain, urgency, other 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: Denies: no symptoms, anxiety, depressed, emotional problems, headache, numbness, paresthesia, pre-existing deficit, seizure, tingling, tremors, weakness, other Hematologic/Lymphatic: Reports: anemia Allergies: Coded Allergies: No Known Allergies (Verified , 11/18/08) Subjective Intubated in ICU. Low platelets. Hemoglobin downtrended. Objective Last 24 Hour Vital Signs Date Time Temp Pulse Resp B/P (MAP) Pulse Ox O2 Delivery O2 Flow Rate FiO2 09/28/17 12:00 70 09/28/17 12:00 99.7 105 26 117/52 100 Mechanical Ventilator 70 99.7 09/28/17 11:10 102 24 70 09/28/17 11:00 105 28 114/48 100 Mechanical Ventilator 70 09/28/17 10:00 86 28 115/45 99 Mechanical Ventilator 70 09/28/17 09:00 98.9 102 26 121/52 98 Mechanical Ventilator 70 98.9 09/28/17 08:36 89 22 70 09/28/17 08:00 70 09/28/17 08:00 99.0 95 26 122/51 98 Mechanical Ventilator 70 99.0 09/28/17 08:00 92 09/28/17 07:00 100 17 118/48 96 Mechanical Ventilator 70 09/28/17 06:58 92 21 70 09/28/17 06:00 103 24 110/48 98 Mechanical Ventilator 70 09/28/17 05:34 95 25 70 09/28/17 05:32 112 112/50 09/28/17 05:00 99 24 112/50 98 Mechanical Ventilator 70 09/28/17 04:09 95 25 70 09/28/17 04:00 98.1 101 17 123/55 98 Mechanical Ventilator 70 98.1 09/28/17 04:00 70 09/28/17 03:24 99 09/28/17 03:00 95 25 110/50 99 Mechanical Ventilator 70 09/28/17 02:00 98 26 111/50 100 Mechanical Ventilator 70 09/28/17 01:00 104 29 124/53 96 Mechanical Ventilator 70 09/28/17 00:40 97 35 70 09/28/17 00:00 70 09/28/17 00:00 98.6 100 35 110/55 93 Mechanical Ventilator 70 98.6 09/27/17 23:05 97 09/27/17 23:00 97 34 112/54 95 Mechanical Ventilator 70 18 22:08 94 23 70 18 22:00 97 34 115/54 98 Mechanical Ventilator 70 18 21:48 94 111/56 18 21:00 92 23 110/45 100 Mechanical Ventilator 70 18 20:00 98.1 93 8 111/55 100 Mechanical Ventilator 70 98.1 09/27/17 20:00 70 18 19:08 94 18 19:00 92 22 111/53 98 Mechanical Ventilator 70 18 18:49 95 26 70 18 18:00 95 22 106/50 98 Mechanical Ventilator 70 18 17:53 70 18 17:27 96 26 70 18 17:19 97.9 09/27/17 17:00 97.9 97.9 09/27/17 17:00 94 22 130/57 98 Mechanical Ventilator 70 09/27/17 16:49 100.7 18 16:00 100.7 110 28 125/56 96 Mechanical Ventilator 70 100.7 18 16:00 112 18 15:01 109 29 70 18 15:00 108 32 120/50 97 Mechanical Ventilator 70 09/27/17 14:00 106 33 116/60 95 Mechanical Ventilator 70 18 13:38 110 125/57 18 13:28 107 28 70 18 13:00 110 28 125/57 95 Mechanical Ventilator 70 Intake and Output 09/27/17 09/28/17 19:00 07:00 Intake Total 1085 ml 1220 ml Output Total 1410 ml 1455 ml Balance -325 ml -235 ml Intake Free Water 450 ml 300 ml Tube Feeding 635 ml 720 ml Other 200 ml Output Urine Total 1410 ml 1455 ml # Bowel Movements 1 3 Laboratory Tests 09/27/17 17:00: Stool Occult Blood Positive 09/28/17 03:55: White Blood Count 15.0H, Red Blood Count 2.48L, Hemoglobin 8.0L, Hematocrit 25.8L, Mean Corpuscular Volume 104H, Mean Corpuscular Hemoglobin 32.4H, Mean Corpuscular Hemoglobin Concent 31.0L, Red Cell Distribution Width 24.3H, Platelet Count 47L, Mean Platelet Volume 11.3H, Neutrophils (%) (Auto) , Lymphocytes (%) (Auto) , Monocytes (%) (Auto) , Eosinophils (%) (Auto) , Basophils (%) (Auto) , Differential Total Cells Counted 100, Neutrophils % ( Manual) 80H, Lymphocytes % (Manual) 7L, Monocytes % (Manual) 10, Eosinophils % ( Manual) 3, Basophils % (Manual) 0, Band Neutrophils 0, Platelet Estimate DecreasedL, Platelet Morphology Normal, Polychromasia 2+, Hypochromasia 1+, Anisocytosis 2+, Macrocytosis 2+, Prothrombin Time 15.8H, Prothromb Time International Ratio 1.5H, Sodium Level 157H, Potassium Level 4.1, Chloride Level 122H, Carbon Dioxide Level 30, Anion Gap 6, Blood Urea Nitrogen 69H, Creatinine 1.1, Estimat Glomerular Filtration Rate , Glucose Level 150H, Calcium Level 9.3, Phosphorus Level 5.2H, Magnesium Level 2.3, Total Bilirubin 1.6H, Direct Bilirubin 1.1H, Aspartate Amino Transf (AST/SGOT) 40H, Alanine Aminotransferase (ALT/SGPT) 18, Alkaline Phosphatase 860H, Total Protein 5.7L, Albumin 2.0L, Globulin 3.7, Albumin/Globulin Ratio 0.5L 09/28/17 07:02: Arterial Blood pH 7.470H, Arterial Blood Partial Pressure CO2 38.0, Arterial Blood Partial Pressure O2 77.9, Arterial Blood HCO3 27.5H, Arterial Blood Oxygen Saturation 94.2, Arterial Blood Base Excess 3.7, Luis A Test Positive Height (Feet): 5 Height (Inches): 0.00 Weight (Pounds): 109 General Appearance: confused Respiratory/Chest: decreased breath sounds Abdomen: soft Johnny Sinha MD Sep 28, 2017 12:48
--- NOTE | 2017-09-28 15:35 | Internal Med Progress Note ---
Subjective Date of Service: Sep 28, 2017 Physician Name Sina Bowens Attending Physician Jesus Barahona MD Current Medications Medications (Trade) Dose Ordered Sig/Hermes Route PRN Reason Start Time Stop Time Status Last Admin Dose Admin Acetaminophen (Tylenol) 650 mg EVERY 6 HOURS PRN NG Fever/Headache/Mild Pain 09/13/17 20:45 10/13/17 20:44 09/27/17 16:49 Albuterol/ Ipratropium (Albuterol/ Ipratropium) 3 ml Q4H PRN HHN Shortness of Breath 09/28/17 10:15 10/03/17 10:14 09/28/17 13:00 Amikacin Protocol (Amikacin pharmacy to dose) 1 ea DAILY PRN MISC Per rx protocol 09/23/17 11:45 10/23/17 11:44 Amikacin Sulfate 500 mg/Sodium Chloride 112 ml @ 112 mls/hr Q36H IV 09/25/17 11:30 10/02/17 11:29 09/28/17 12:04 Clonidine HCl (Catapres Tab) 0.1 mg Q4H PRN ORAL SBP>160 UNRELIEVED BY HYDRALAZ 09/16/17 16:45 10/15/17 16:59 Dextrose (Dextrose 50%) STAT PRN IV Hypoglycemia 09/13/17 15:00 10/13/17 14:59 Diltiazem HCl (Cardizem) 30 mg EVERY 8 HOURS NG 09/18/17 22:00 10/18/17 21:59 09/28/17 14:53 Insulin Aspart (NovoLOG) EVERY 6 HOURS SUBQ 09/17/17 12:00 10/17/17 11:59 09/28/17 12:04 Ketotifen Fumarate (Zatidor) 1 drop DAILY BOTH EYES 09/26/17 09:00 10/25/17 08:59 09/28/17 08:54 Metronidazole (Flagyl) 500 mg Q8HR ORAL 09/23/17 14:00 09/30/17 13:59 09/28/17 14:53 Pantoprazole (Protonix) 40 mg DAILY ORAL 09/28/17 09:00 10/28/17 08:59 09/28/17 08:54 Polyethylene Glycol (Miralax) 17 gm BEDTIME ORAL 09/14/17 21:00 10/14/17 20:59 09/26/17 20:53 Allergies: Coded Allergies: No Known Allergies (Verified , 11/18/08) ROS Limited/Unobtainable: Yes Subjective 76 YO F admitted with Shortness of breath, now respiratory failure. Intubated and sedated. Cover for Internal Med-Dr. Barahona. ICU . Low Grade fever Objective Last Vital Signs Date Time Temp Pulse Resp B/P (MAP) Pulse Ox O2 Delivery O2 Flow Rate FiO2 09/28/17 15:25 94 24 70 09/28/17 14:53 110/50 09/28/17 14:00 98 Mechanical Ventilator 09/28/17 13:00 98.9 98.9 Laboratory Tests Test 09/27/17 17:00 09/28/17 03:55 09/28/17 07:02 Stool Occult Blood Positive (NEGATIVE) White Blood Count 15.0 K/UL (4.8-10.8) H Red Blood Count 2.48 M/UL (4.20-5.40) L Hemoglobin 8.0 G/DL (12.0-16.0) L Hematocrit 25.8 % (37.0-47.0) L Mean Corpuscular Volume 104 FL (80-99) H Mean Corpuscular Hemoglobin 32.4 PG (27.0-31.0) H Mean Corpuscular Hemoglobin Concent 31.0 G/DL (32.0-36.0) L Red Cell Distribution Width 24.3 % (11.6-14.8) H Platelet Count 47 K/UL (150-450) L Mean Platelet Volume 11.3 FL (6.5-10.1) H Neutrophils (%) (Auto) % (45.0-75.0) Lymphocytes (%) (Auto) % (20.0-45.0) Monocytes (%) (Auto) % (1.0-10.0) Eosinophils (%) (Auto) % (0.0-3.0) Basophils (%) (Auto) % (0.0-2.0) Differential Total Cells Counted 100 Neutrophils % (Manual) 80 % (45-75) H Lymphocytes % (Manual) 7 % (20-45) L Monocytes % (Manual) 10 % (1-10) Eosinophils % (Manual) 3 % (0-3) Basophils % (Manual) 0 % (0-2) Band Neutrophils 0 % (0-8) Platelet Estimate Decreased L Platelet Morphology Normal Polychromasia 2+ Hypochromasia 1+ Anisocytosis 2+ Macrocytosis 2+ Prothrombin Time 15.8 SEC (9.30-11.50) H Prothromb Time International Ratio 1.5 (0.9-1.1) H Sodium Level 157 MMOL/L (136-145) H Potassium Level 4.1 MMOL/L (3.5-5.1) Chloride Level 122 MMOL/L (98-107) H Carbon Dioxide Level 30 MMOL/L (21-32) Anion Gap 6 mmol/L (5-15) Blood Urea Nitrogen 69 mg/dL (7-18) H Creatinine 1.1 MG/DL (0.55-1.30) Estimat Glomerular Filtration Rate mL/min (>60) Glucose Level 150 MG/DL (74-106) H Calcium Level 9.3 MG/DL (8.5-10.1) Phosphorus Level 5.2 MG/DL (2.5-4.9) H Magnesium Level 2.3 MG/DL (1.8-2.4) Total Bilirubin 1.6 MG/DL (0.2-1.0) H Direct Bilirubin 1.1 MG/DL (0.0-0.3) H Aspartate Amino Transf (AST/SGOT) 40 U/L (15-37) H Alanine Aminotransferase (ALT/SGPT) 18 U/L (12-78) Alkaline Phosphatase 860 U/L (46-116) H Total Protein 5.7 G/DL (6.4-8.2) L Albumin 2.0 G/DL (3.4-5.0) L Globulin 3.7 g/dL Albumin/Globulin Ratio 0.5 (1.0-2.7) L Arterial Blood pH 7.470 (7.350-7.450) Arterial Blood Partial Pressure CO2 38.0 mmHg (35.0-45.0) Arterial Blood Partial Pressure O2 77.9 mmHg (75.0-100.0) Arterial Blood HCO3 27.5 mmol/L (22.0-26.0) H Arterial Blood Oxygen Saturation 94.2 % (92.0-98.0) Arterial Blood Base Excess 3.7 Luis A Test Positive Intake and Output 09/27/17 09/28/17 19:00 07:00 Intake Total 1085 ml 1220 ml Output Total 1410 ml 1455 ml Balance -325 ml -235 ml Intake Free Water 450 ml 300 ml Tube Feeding 635 ml 720 ml Other 200 ml Output Urine Total 1410 ml 1455 ml # Bowel Movements 1 3 Objective General Appearance: lethargic, thin EENT: normal ENT inspection Neck: non-tender, normal alignment, supple Cardiovascular: normal peripheral pulses, normal rate, regular rhythm, no gallop/murmur, no JVD Respiratory/Chest: Mechanical vent; respiratory distress, crackles/rales, rhonchi - bilaterally, expiratory wheezing Abdomen: normal bowel sounds, non tender, soft, no organomegaly, no mass Skin: normal pigmentation, warm/dry Assessment/Plan Problem List: (1) HTN (hypertension) Assessment & Plan: Currently hypotensive. (2) Arthritis, rheumatoid (3) Parkinsons disease (4) Aplastic anemia (5) GERD (gastroesophageal reflux disease) (6) Respiratory failure Assessment & Plan: Cont vent per pulmonary (7) Pneumonia (8) Dyspnea (9) Sepsis Assessment & Plan: Blood culture neg. Continue Amikacin and flagyl per ID (10) ARDS (adult respiratory distress syndrome) Assessment & Plan: See pulmonary note (11) UTI (urinary tract infection) Assessment & Plan: E.Coli. Continue levaquin (12) Anemia Assessment & Plan: S/P Transfusion 2 units PRBC (13) Diabetes mellitus, type II Assessment & Plan: Continue novolog sliding scale (14) Leukocytosis Assessment & Plan: Worsening. See ID note. Start amikacin and fluconazole (15) Thrombocytopenia Status: not improved SINA BOWENS Sep 28, 2017 15:35
[2017-09-28] MEDS ORDERED: Sterile Water Irrig 1000ml IRRIG ONE ×2 (16:18→16:28)
[2017-09-28] MEDS ORDERED: Tubing IV Secondary IV ONE (16:28)
[2017-09-28] MEDS ORDERED: NS 275ml ONE (16:28)
--- NOTE | 2017-09-28 16:35 | Cardiac Electrophysiology PN ---
Assessment/Plan Assessment/Plan 1. Respiratory failure, due to underlying ARDS , pneumonia. Intubated on the vent. Already ruled out for myocardial infarction. Now on 70% Fio2 with PEEP of 5. Possible tracheostomy on Friday if Platelets OK and if family consents No orders yet. Dr Zenia love. 2. Left bundle-branch block. No evidence of advanced heart block. 3. HTN and diastolic dysfunction. On Cardizem 30 q8 hr. Echo EF 55% 4. Hypernatremia and azotemia. F/U per Dr Mayer 5. Pneumonia and sepsis on IV antibiotics by Dr. Hunter. 6. Psychiatric disorder. 7. Anasarca. 3rd spacing. Lasix when OK with Dr Mayer 8. Anemia with Hb 6.6 s/p PRBC. CT chest abdomen and pelvis without contrast no acute finding 9. Severe thrombocytopenia. S/P platelet transfusion DW RN Subjective Subjective Intubated on Vent in ICU.On 70% Fio2 and PEEP of 5. In sinus tach 110. Objective Last 24 Hour Vital Signs Date Time Temp Pulse Resp B/P (MAP) Pulse Ox O2 Delivery O2 Flow Rate FiO2 09/28/17 16:00 70 09/28/17 16:00 98.9 89 22 108/45 100 Mechanical Ventilator 70 98.9 09/28/17 15:25 94 24 70 09/28/17 15:00 95 24 106/52 97 Mechanical Ventilator 70 09/28/17 14:53 97 110/50 09/28/17 14:00 99 24 110/50 98 Mechanical Ventilator 70 09/28/17 13:18 103 21 99 Mechanical Ventilator 09/28/17 13:01 103 26 100 Mechanical Ventilator 70 09/28/17 13:00 98.9 103 22 126/52 98 Mechanical Ventilator 70 98.9 09/28/17 12:51 92 22 70 09/28/17 12:00 70 09/28/17 12:00 99.7 105 26 117/52 100 Mechanical Ventilator 70 99.7 09/28/17 12:00 102 09/28/17 11:10 102 24 70 09/28/17 11:00 105 28 114/48 100 Mechanical Ventilator 70 09/28/17 10:00 86 28 115/45 99 Mechanical Ventilator 70 09/28/17 09:00 98.9 102 26 121/52 98 Mechanical Ventilator 70 98.9 3/18/18 08:36 89 22 70 3/18/18 08:00 70 3/18/18 08:00 99.0 95 26 122/51 98 Mechanical Ventilator 70 99.0 3/18/18 08:00 92 3/18/18 07:00 100 17 118/48 96 Mechanical Ventilator 70 3/18/18 06:58 92 21 70 3/18/18 06:00 103 24 110/48 98 Mechanical Ventilator 70 3/18/18 05:34 95 25 70 3/18/18 05:32 112 112/50 3/18/18 05:00 99 24 112/50 98 Mechanical Ventilator 70 3/18/18 04:09 95 25 70 3/18/18 04:00 98.1 101 17 123/55 98 Mechanical Ventilator 70 98.1 3/18/18 04:00 70 3/18/18 03:24 99 3/18/18 03:00 95 25 110/50 99 Mechanical Ventilator 70 3/18/18 02:00 98 26 111/50 100 Mechanical Ventilator 70 3/18/18 01:00 104 29 124/53 96 Mechanical Ventilator 70 3/18/18 00:40 97 35 70 3/18/18 00:00 70 3/18/18 00:00 98.6 100 35 110/55 93 Mechanical Ventilator 70 98.6 3/17/18 23:05 97 3/17/18 23:00 97 34 112/54 95 Mechanical Ventilator 70 3/17/18 22:08 94 23 70 3/17/18 22:00 97 34 115/54 98 Mechanical Ventilator 70 3/17/18 21:48 94 111/56 3/17/18 21:00 92 23 110/45 100 Mechanical Ventilator 70 3/17/18 20:00 98.1 93 8 111/55 100 Mechanical Ventilator 70 98.1 3/17/18 20:00 70 3/17/18 19:08 94 3/17/18 19:00 92 22 111/53 98 Mechanical Ventilator 70 3/17/18 18:49 95 26 70 3/17/18 18:00 95 22 106/50 98 Mechanical Ventilator 70 3/17/18 17:53 70 3/17/18 17:27 96 26 70 3/17/18 17:19 97.9 3/17/18 17:00 97.9 97.9 3/17/18 17:00 94 22 130/57 98 Mechanical Ventilator 70 09/27/17 16:49 100.7 Intake and Output 09/27/17 09/28/17 19:00 07:00 Intake Total 1085 ml 1220 ml Output Total 1410 ml 1455 ml Balance -325 ml -235 ml Intake Free Water 450 ml 300 ml Tube Feeding 635 ml 720 ml Other 200 ml Output Urine Total 1410 ml 1455 ml # Bowel Movements 1 3 Laboratory Tests Test 09/27/17 17:00 09/28/17 03:55 09/28/17 07:02 Stool Occult Blood Positive (NEGATIVE) White Blood Count 15.0 K/UL (4.8-10.8) H Red Blood Count 2.48 M/UL (4.20-5.40) L Hemoglobin 8.0 G/DL (12.0-16.0) L Hematocrit 25.8 % (37.0-47.0) L Mean Corpuscular Volume 104 FL (80-99) H Mean Corpuscular Hemoglobin 32.4 PG (27.0-31.0) H Mean Corpuscular Hemoglobin Concent 31.0 G/DL (32.0-36.0) L Red Cell Distribution Width 24.3 % (11.6-14.8) H Platelet Count 47 K/UL (150-450) L Mean Platelet Volume 11.3 FL (6.5-10.1) H Neutrophils (%) (Auto) % (45.0-75.0) Lymphocytes (%) (Auto) % (20.0-45.0) Monocytes (%) (Auto) % (1.0-10.0) Eosinophils (%) (Auto) % (0.0-3.0) Basophils (%) (Auto) % (0.0-2.0) Differential Total Cells Counted 100 Neutrophils % (Manual) 80 % (45-75) H Lymphocytes % (Manual) 7 % (20-45) L Monocytes % (Manual) 10 % (1-10) Eosinophils % (Manual) 3 % (0-3) Basophils % (Manual) 0 % (0-2) Band Neutrophils 0 % (0-8) Platelet Estimate Decreased L Platelet Morphology Normal Polychromasia 2+ Hypochromasia 1+ Anisocytosis 2+ Macrocytosis 2+ Prothrombin Time 15.8 SEC (9.30-11.50) H Prothromb Time International Ratio 1.5 (0.9-1.1) H Sodium Level 157 MMOL/L (136-145) H Potassium Level 4.1 MMOL/L (3.5-5.1) Chloride Level 122 MMOL/L (98-107) H Carbon Dioxide Level 30 MMOL/L (21-32) Anion Gap 6 mmol/L (5-15) Blood Urea Nitrogen 69 mg/dL (7-18) H Creatinine 1.1 MG/DL (0.55-1.30) Estimat Glomerular Filtration Rate mL/min (>60) Glucose Level 150 MG/DL (74-106) H Calcium Level 9.3 MG/DL (8.5-10.1) Phosphorus Level 5.2 MG/DL (2.5-4.9) H Magnesium Level 2.3 MG/DL (1.8-2.4) Total Bilirubin 1.6 MG/DL (0.2-1.0) H Direct Bilirubin 1.1 MG/DL (0.0-0.3) H Aspartate Amino Transf (AST/SGOT) 40 U/L (15-37) H Alanine Aminotransferase (ALT/SGPT) 18 U/L (12-78) Alkaline Phosphatase 860 U/L (46-116) H Total Protein 5.7 G/DL (6.4-8.2) L Albumin 2.0 G/DL (3.4-5.0) L Globulin 3.7 g/dL Albumin/Globulin Ratio 0.5 (1.0-2.7) L Arterial Blood pH 7.470 (7.350-7.450) Arterial Blood Partial Pressure CO2 38.0 mmHg (35.0-45.0) Arterial Blood Partial Pressure O2 77.9 mmHg (75.0-100.0) Arterial Blood HCO3 27.5 mmol/L (22.0-26.0) H Arterial Blood Oxygen Saturation 94.2 % (92.0-98.0) Arterial Blood Base Excess 3.7 Luis A Test Positive Objective HEAD AND NECK: Orally intubated. NG tube LUNGS: Coarse rhonchi bilaterally CARDIOVASCULAR: Tachy S1 and S2.No murmur ABDOMEN: Soft. EXTREMITIES: 1+ pitting edema. ROLF OLIVIA Sep 28, 2017 16:35
--- NOTE | 2017-09-28 18:17 | Nephrology Progress Note ---
Assessment/Plan Problem List: (1) ARDS (adult respiratory distress syndrome) (2) Electrolyte imbalance (3) Thrombocytopenia Assessment Na 155 Platelets 47 K (1) ARDS (adult respiratory distress syndrome) (2) Aspiration pneumonia (3) Protein-calorie malnutrition, severe (4) Diabetes mellitus (5) Anemia , aplastic by history (6) DM (7) UTI (8) Electrolyte imbalance (9) HTN (10) Depression (11) RA . Plan doing poorly water via NGT Adjust BP meds K and Phos supplement as needed Monitor renal parameters and urine output avoid nephrotoxics per orders discussed with RN Left ventricular ejection fraction estimated to be 55 %. Subjective ROS Limited/Unobtainable: No Constitutional: Reports: malaise Objective Objective Last 24 Hour Vital Signs Date Time Temp Pulse Resp B/P (MAP) Pulse Ox O2 Delivery O2 Flow Rate FiO2 09/28/17 17:17 95 31 70 09/28/17 17:00 93 23 117/51 100 Mechanical Ventilator 70 09/28/17 16:00 97 09/28/17 16:00 70 09/28/17 16:00 98.9 89 22 108/45 100 Mechanical Ventilator 70 98.9 09/28/17 15:25 94 24 70 09/28/17 15:00 95 24 106/52 97 Mechanical Ventilator 70 09/28/17 14:53 97 110/50 09/28/17 14:00 99 24 110/50 98 Mechanical Ventilator 70 09/28/17 13:18 103 21 99 Mechanical Ventilator 09/28/17 13:01 103 26 100 Mechanical Ventilator 70 09/28/17 13:00 98.9 103 22 126/52 98 Mechanical Ventilator 70 98.9 09/28/17 12:51 92 22 70 09/28/17 12:00 70 09/28/17 12:00 99.7 105 26 117/52 100 Mechanical Ventilator 70 99.7 09/28/17 12:00 102 09/28/17 11:10 102 24 70 09/28/17 11:00 105 28 114/48 100 Mechanical Ventilator 70 09/28/17 10:00 86 28 115/45 99 Mechanical Ventilator 70 09/28/17 09:00 98.9 102 26 121/52 98 Mechanical Ventilator 70 98.9 09/28/17 08:36 89 22 70 09/28/17 08:00 70 09/28/17 08:00 99.0 95 26 122/51 98 Mechanical Ventilator 70 99.0 09/28/17 08:00 92 18 07:00 100 17 118/48 96 Mechanical Ventilator 70 09/28/17 06:58 92 21 70 09/28/17 06:00 103 24 110/48 98 Mechanical Ventilator 70 09/28/17 05:34 95 25 70 18 05:32 112 112/50 09/28/17 05:00 99 24 112/50 98 Mechanical Ventilator 70 09/28/17 04:09 95 25 70 09/28/17 04:00 98.1 101 17 123/55 98 Mechanical Ventilator 70 98.1 09/28/17 04:00 70 09/28/17 03:24 99 09/28/17 03:00 95 25 110/50 99 Mechanical Ventilator 70 09/28/17 02:00 98 26 111/50 100 Mechanical Ventilator 70 09/28/17 01:00 104 29 124/53 96 Mechanical Ventilator 70 09/28/17 00:40 97 35 70 09/28/17 00:00 70 09/28/17 00:00 98.6 100 35 110/55 93 Mechanical Ventilator 70 98.6 09/27/17 23:05 97 09/27/17 23:00 97 34 112/54 95 Mechanical Ventilator 70 09/27/17 22:08 94 23 70 09/27/17 22:00 97 34 115/54 98 Mechanical Ventilator 70 18 21:48 94 111/56 18 21:00 92 23 110/45 100 Mechanical Ventilator 70 09/27/17 20:00 98.1 93 8 111/55 100 Mechanical Ventilator 70 98.1 18 20:00 70 18 19:08 94 18 19:00 92 22 111/53 98 Mechanical Ventilator 70 18 18:49 95 26 70 Intake and Output 09/27/17 09/28/17 19:00 07:00 Intake Total 1085 ml 1220 ml Output Total 1410 ml 1455 ml Balance -325 ml -235 ml Intake Free Water 450 ml 300 ml Tube Feeding 635 ml 720 ml Other 200 ml Output Urine Total 1410 ml 1455 ml # Bowel Movements 1 3 Laboratory Tests 09/28/17 03:55: White Blood Count 15.0H, Red Blood Count 2.48L, Hemoglobin 8.0L, Hematocrit 25.8L, Mean Corpuscular Volume 104H, Mean Corpuscular Hemoglobin 32.4H, Mean Corpuscular Hemoglobin Concent 31.0L, Red Cell Distribution Width 24.3H, Platelet Count 47L, Mean Platelet Volume 11.3H, Neutrophils (%) (Auto) , Lymphocytes (%) (Auto) , Monocytes (%) (Auto) , Eosinophils (%) (Auto) , Basophils (%) (Auto) , Differential Total Cells Counted 100, Neutrophils % ( Manual) 80H, Lymphocytes % (Manual) 7L, Monocytes % (Manual) 10, Eosinophils % ( Manual) 3, Basophils % (Manual) 0, Band Neutrophils 0, Platelet Estimate DecreasedL, Platelet Morphology Normal, Polychromasia 2+, Hypochromasia 1+, Anisocytosis 2+, Macrocytosis 2+, Prothrombin Time 15.8H, Prothromb Time International Ratio 1.5H, Sodium Level 157H, Potassium Level 4.1, Chloride Level 122H, Carbon Dioxide Level 30, Anion Gap 6, Blood Urea Nitrogen 69H, Creatinine 1.1, Estimat Glomerular Filtration Rate , Glucose Level 150H, Calcium Level 9.3, Phosphorus Level 5.2H, Magnesium Level 2.3, Total Bilirubin 1.6H, Direct Bilirubin 1.1H, Aspartate Amino Transf (AST/SGOT) 40H, Alanine Aminotransferase (ALT/SGPT) 18, Alkaline Phosphatase 860H, Total Protein 5.7L, Albumin 2.0L, Globulin 3.7, Albumin/Globulin Ratio 0.5L 09/28/17 07:02: Arterial Blood pH 7.470H, Arterial Blood Partial Pressure CO2 38.0, Arterial Blood Partial Pressure O2 77.9, Arterial Blood HCO3 27.5H, Arterial Blood Oxygen Saturation 94.2, Arterial Blood Base Excess 3.7, Luis A Test Positive Height (Feet): 5 Height (Inches): 0.00 Weight (Pounds): 109 Objective no change YAEL HANSEN 18, 2018 18:17
[2017-09-28] MEDS: Miralax 17gm pkt ORAL SCH (21:18)
--- NOTE | 2017-09-28 22:14 | General Progress Note ---
Assessment/Plan Problem List: (1) Arthritis, rheumatoid ICD Codes: M06.9 - Rheumatoid arthritis, unspecified SNOMED: 36567599 (2) Aspiration pneumonia ICD Codes: J69.0 - Pneumonitis due to inhalation of food and vomit SNOMED: 920967902 (3) Diabetes mellitus ICD Codes: E11.9 - Type 2 diabetes mellitus without complications SNOMED: 14495901 (4) ARDS (adult respiratory distress syndrome) ICD Codes: J80 - Acute respiratory distress syndrome SNOMED: 71326030 (5) Transaminitis ICD Codes: R74.0 - Nonspecific elevation of levels of transaminase and lactic acid dehydrogenase [LDH] SNOMED: 833214363, 488055295 (6) Dyspnea ICD Codes: R06.00 - Dyspnea, unspecified SNOMED: 880751183 (7) Parkinsons disease ICD Codes: G20 - Parkinson's disease SNOMED: 83428103 (8) Sepsis ICD Codes: A41.9 - Sepsis, unspecified organism SNOMED: 81668454 (9) GERD (gastroesophageal reflux disease) ICD Codes: K21.9 - Gastro-esophageal reflux disease without esophagitis SNOMED: 727155880 (10) Aplastic anemia ICD Codes: D61.9 - Aplastic anemia, unspecified SNOMED: 907613135 (11) Pneumonia ICD Codes: J18.9 - Pneumonia, unspecified organism SNOMED: 573377685 (12) HTN (hypertension) ICD Codes: I10 - Essential (primary) hypertension SNOMED: 22236168 Assessment/Plan Encephalopathy, agitation, psychotic disorder. -cont current meds -ativan prn Subjective Date patient seen: Sep 28, 2017 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: Reports: anxiety, depressed Allergies: Coded Allergies: No Known Allergies (Verified , 11/18/08) Objective Last 24 Hour Vital Signs Date Time Temp Pulse Resp B/P (MAP) Pulse Ox O2 Delivery O2 Flow Rate FiO2 09/28/17 22:10 115 125/50 09/28/17 21:21 115 25 60 09/28/17 19:00 102 24 122/50 97 Mechanical Ventilator 70 09/28/17 18:56 102 25 60 09/28/17 18:00 101 23 117/46 97 Mechanical Ventilator 70 09/28/17 17:17 95 31 70 09/28/17 17:00 93 23 117/51 100 Mechanical Ventilator 70 3/18/18 16:00 97 3/18/18 16:00 70 3/18/18 16:00 98.9 89 22 108/45 100 Mechanical Ventilator 70 98.9 3/18/18 15:25 94 24 70 3/18/18 15:00 95 24 106/52 97 Mechanical Ventilator 70 3/18/18 14:53 97 110/50 3/18/18 14:00 99 24 110/50 98 Mechanical Ventilator 70 3/18/18 13:18 103 21 99 Mechanical Ventilator 3/18/18 13:01 103 26 100 Mechanical Ventilator 70 3/18/18 13:00 98.9 103 22 126/52 98 Mechanical Ventilator 70 98.9 3/18/18 12:51 92 22 70 3/18/18 12:00 70 3/18/18 12:00 99.7 105 26 117/52 100 Mechanical Ventilator 70 99.7 3/18/18 12:00 102 3/18/18 11:10 102 24 70 3/18/18 11:00 105 28 114/48 100 Mechanical Ventilator 70 3/18/18 10:00 86 28 115/45 99 Mechanical Ventilator 70 3/18/18 09:00 98.9 102 26 121/52 98 Mechanical Ventilator 70 98.9 3/18/18 08:36 89 22 70 3/18/18 08:00 70 3/18/18 08:00 99.0 95 26 122/51 98 Mechanical Ventilator 70 99.0 3/18/18 08:00 92 3/18/18 07:00 100 17 118/48 96 Mechanical Ventilator 70 3/18/18 06:58 92 21 70 3/18/18 06:00 103 24 110/48 98 Mechanical Ventilator 70 3/18/18 05:34 95 25 70 3/18/18 05:32 112 112/50 3/18/18 05:00 99 24 112/50 98 Mechanical Ventilator 70 3/18/18 04:09 95 25 70 3/18/18 04:00 98.1 101 17 123/55 98 Mechanical Ventilator 70 98.1 3/18/18 04:00 70 3/18/18 03:24 99 3/18/18 03:00 95 25 110/50 99 Mechanical Ventilator 70 3/18/18 02:00 98 26 111/50 100 Mechanical Ventilator 70 3/18/18 01:00 104 29 124/53 96 Mechanical Ventilator 70 09/28/17 00:40 97 35 70 09/28/17 00:00 70 09/28/17 00:00 98.6 100 35 110/55 93 Mechanical Ventilator 70 98.6 09/27/17 23:05 97 09/27/17 23:00 97 34 112/54 95 Mechanical Ventilator 70 Intake and Output 09/27/17 09/28/17 19:00 07:00 Intake Total 1085 ml 1220 ml Output Total 1410 ml 1455 ml Balance -325 ml -235 ml Intake Free Water 450 ml 300 ml Tube Feeding 635 ml 720 ml Other 200 ml Output Urine Total 1410 ml 1455 ml # Bowel Movements 1 3 Laboratory Tests 09/28/17 03:55: White Blood Count 15.0H, Red Blood Count 2.48L, Hemoglobin 8.0L, Hematocrit 25.8L, Mean Corpuscular Volume 104H, Mean Corpuscular Hemoglobin 32.4H, Mean Corpuscular Hemoglobin Concent 31.0L, Red Cell Distribution Width 24.3H, Platelet Count 47L, Mean Platelet Volume 11.3H, Neutrophils (%) (Auto) , Lymphocytes (%) (Auto) , Monocytes (%) (Auto) , Eosinophils (%) (Auto) , Basophils (%) (Auto) , Differential Total Cells Counted 100, Neutrophils % ( Manual) 80H, Lymphocytes % (Manual) 7L, Monocytes % (Manual) 10, Eosinophils % ( Manual) 3, Basophils % (Manual) 0, Band Neutrophils 0, Platelet Estimate DecreasedL, Platelet Morphology Normal, Polychromasia 2+, Hypochromasia 1+, Anisocytosis 2+, Macrocytosis 2+, Prothrombin Time 15.8H, Prothromb Time International Ratio 1.5H, Sodium Level 157H, Potassium Level 4.1, Chloride Level 122H, Carbon Dioxide Level 30, Anion Gap 6, Blood Urea Nitrogen 69H, Creatinine 1.1, Estimat Glomerular Filtration Rate , Glucose Level 150H, Calcium Level 9.3, Phosphorus Level 5.2H, Magnesium Level 2.3, Total Bilirubin 1.6H, Direct Bilirubin 1.1H, Aspartate Amino Transf (AST/SGOT) 40H, Alanine Aminotransferase (ALT/SGPT) 18, Alkaline Phosphatase 860H, Total Protein 5.7L, Albumin 2.0L, Globulin 3.7, Albumin/Globulin Ratio 0.5L 09/28/17 07:02: Arterial Blood pH 7.470H, Arterial Blood Partial Pressure CO2 38.0, Arterial Blood Partial Pressure O2 77.9, Arterial Blood HCO3 27.5H, Arterial Blood Oxygen Saturation 94.2, Arterial Blood Base Excess 3.7, Luis A Test Positive Height (Feet): 5 Height (Inches): 0.00 Weight (Pounds): 109 Dary Nixon M.D. Sep 28, 2017 22:14
--- NOTE | 2017-09-28 22:15 | Psych Consult Progress Note ---
Psych Consult Progress Note Consult 09/27/17 Encephalopathy, agitation, psychotic disorder. -cont current meds -ativan prn Vital Signs Last 24 Hour Vital Signs Date Time Temp Pulse Resp B/P (MAP) Pulse Ox O2 Delivery O2 Flow Rate FiO2 09/28/17 22:10 115 125/50 09/28/17 21:21 115 25 60 09/28/17 19:00 102 24 122/50 97 Mechanical Ventilator 70 09/28/17 18:56 102 25 60 09/28/17 18:00 101 23 117/46 97 Mechanical Ventilator 70 09/28/17 17:17 95 31 70 09/28/17 17:00 93 23 117/51 100 Mechanical Ventilator 70 09/28/17 16:00 97 09/28/17 16:00 70 09/28/17 16:00 98.9 89 22 108/45 100 Mechanical Ventilator 70 98.9 09/28/17 15:25 94 24 70 09/28/17 15:00 95 24 106/52 97 Mechanical Ventilator 70 09/28/17 14:53 97 110/50 09/28/17 14:00 99 24 110/50 98 Mechanical Ventilator 70 09/28/17 13:18 103 21 99 Mechanical Ventilator 09/28/17 13:01 103 26 100 Mechanical Ventilator 70 09/28/17 13:00 98.9 103 22 126/52 98 Mechanical Ventilator 70 98.9 09/28/17 12:51 92 22 70 09/28/17 12:00 70 09/28/17 12:00 99.7 105 26 117/52 100 Mechanical Ventilator 70 99.7 09/28/17 12:00 102 09/28/17 11:10 102 24 70 09/28/17 11:00 105 28 114/48 100 Mechanical Ventilator 70 09/28/17 10:00 86 28 115/45 99 Mechanical Ventilator 70 09/28/17 09:00 98.9 102 26 121/52 98 Mechanical Ventilator 70 98.9 09/28/17 08:36 89 22 70 09/28/17 08:00 70 09/28/17 08:00 99.0 95 26 122/51 98 Mechanical Ventilator 70 99.0 09/28/17 08:00 92 09/28/17 07:00 100 17 118/48 96 Mechanical Ventilator 70 09/28/17 06:58 92 21 70 09/28/17 06:00 103 24 110/48 98 Mechanical Ventilator 70 09/28/17 05:34 95 25 70 09/28/17 05:32 112 112/50 09/28/17 05:00 99 24 112/50 98 Mechanical Ventilator 70 09/28/17 04:09 95 25 70 09/28/17 04:00 98.1 101 17 123/55 98 Mechanical Ventilator 70 98.1 09/28/17 04:00 70 09/28/17 03:24 99 09/28/17 03:00 95 25 110/50 99 Mechanical Ventilator 70 09/28/17 02:00 98 26 111/50 100 Mechanical Ventilator 70 09/28/17 01:00 104 29 124/53 96 Mechanical Ventilator 70 09/28/17 00:40 97 35 70 09/28/17 00:00 70 09/28/17 00:00 98.6 100 35 110/55 93 Mechanical Ventilator 70 98.6 09/27/17 23:05 97 09/27/17 23:00 97 34 112/54 95 Mechanical Ventilator 70 Labs Laboratory Tests Test 09/28/17 03:55 09/28/17 07:02 White Blood Count 15.0 K/UL (4.8-10.8) H Red Blood Count 2.48 M/UL (4.20-5.40) L Hemoglobin 8.0 G/DL (12.0-16.0) L Hematocrit 25.8 % (37.0-47.0) L Mean Corpuscular Volume 104 FL (80-99) H Mean Corpuscular Hemoglobin 32.4 PG (27.0-31.0) H Mean Corpuscular Hemoglobin Concent 31.0 G/DL (32.0-36.0) L Red Cell Distribution Width 24.3 % (11.6-14.8) H Platelet Count 47 K/UL (150-450) L Mean Platelet Volume 11.3 FL (6.5-10.1) H Neutrophils (%) (Auto) % (45.0-75.0) Lymphocytes (%) (Auto) % (20.0-45.0) Monocytes (%) (Auto) % (1.0-10.0) Eosinophils (%) (Auto) % (0.0-3.0) Basophils (%) (Auto) % (0.0-2.0) Differential Total Cells Counted 100 Neutrophils % (Manual) 80 % (45-75) H Lymphocytes % (Manual) 7 % (20-45) L Monocytes % (Manual) 10 % (1-10) Eosinophils % (Manual) 3 % (0-3) Basophils % (Manual) 0 % (0-2) Band Neutrophils 0 % (0-8) Platelet Estimate Decreased L Platelet Morphology Normal Polychromasia 2+ Hypochromasia 1+ Anisocytosis 2+ Macrocytosis 2+ Prothrombin Time 15.8 SEC (9.30-11.50) H Prothromb Time International Ratio 1.5 (0.9-1.1) H Sodium Level 157 MMOL/L (136-145) H Potassium Level 4.1 MMOL/L (3.5-5.1) Chloride Level 122 MMOL/L (98-107) H Carbon Dioxide Level 30 MMOL/L (21-32) Anion Gap 6 mmol/L (5-15) Blood Urea Nitrogen 69 mg/dL (7-18) H Creatinine 1.1 MG/DL (0.55-1.30) Estimat Glomerular Filtration Rate mL/min (>60) Glucose Level 150 MG/DL (74-106) H Calcium Level 9.3 MG/DL (8.5-10.1) Phosphorus Level 5.2 MG/DL (2.5-4.9) H Magnesium Level 2.3 MG/DL (1.8-2.4) Total Bilirubin 1.6 MG/DL (0.2-1.0) H Direct Bilirubin 1.1 MG/DL (0.0-0.3) H Aspartate Amino Transf (AST/SGOT) 40 U/L (15-37) H Alanine Aminotransferase (ALT/SGPT) 18 U/L (12-78) Alkaline Phosphatase 860 U/L (46-116) H Total Protein 5.7 G/DL (6.4-8.2) L Albumin 2.0 G/DL (3.4-5.0) L Globulin 3.7 g/dL Albumin/Globulin Ratio 0.5 (1.0-2.7) L Arterial Blood pH 7.470 (7.350-7.450) Arterial Blood Partial Pressure CO2 38.0 mmHg (35.0-45.0) Arterial Blood Partial Pressure O2 77.9 mmHg (75.0-100.0) Arterial Blood HCO3 27.5 mmol/L (22.0-26.0) H Arterial Blood Oxygen Saturation 94.2 % (92.0-98.0) Arterial Blood Base Excess 3.7 Luis A Test Positive Medications Current Medications Medications (Trade) Dose Ordered Sig/Hermes Route PRN Reason Start Time Stop Time Status Last Admin Dose Admin Acetaminophen (Tylenol) 650 mg EVERY 6 HOURS PRN NG Fever/Headache/Mild Pain 09/13/17 20:45 10/13/17 20:44 09/27/17 16:49 Albuterol/ Ipratropium (Albuterol/ Ipratropium) 3 ml Q4H PRN HHN Shortness of Breath 09/28/17 10:15 10/03/17 10:14 09/28/17 13:00 Amikacin Protocol (Amikacin pharmacy to dose) 1 ea DAILY PRN MISC Per rx protocol 09/23/17 11:45 10/23/17 11:44 Amikacin Sulfate 500 mg/Sodium Chloride 112 ml @ 112 mls/hr Q36H IV 09/25/17 11:30 10/02/17 11:29 09/28/17 12:04 Clonidine HCl (Catapres Tab) 0.1 mg Q4H PRN ORAL SBP>160 UNRELIEVED BY HYDRALAZ 09/16/17 16:45 10/15/17 16:59 Dextrose (Dextrose 50%) STAT PRN IV Hypoglycemia 09/13/17 15:00 10/13/17 14:59 Diltiazem HCl (Cardizem) 30 mg EVERY 8 HOURS NG 09/18/17 22:00 10/18/17 21:59 09/28/17 22:10 Insulin Aspart (NovoLOG) EVERY 6 HOURS SUBQ 09/17/17 12:00 10/17/17 11:59 09/28/17 17:30 Ketotifen Fumarate (Zatidor) 1 drop DAILY BOTH EYES 09/26/17 09:00 10/25/17 08:59 09/28/17 08:54 Metronidazole (Flagyl) 500 mg Q8HR ORAL 09/23/17 14:00 09/30/17 13:59 09/28/17 22:10 Pantoprazole (Protonix) 40 mg DAILY ORAL 09/28/17 09:00 10/28/17 08:59 09/28/17 08:54 Polyethylene Glycol (Miralax) 17 gm BEDTIME ORAL 09/14/17 21:00 10/14/17 20:59 09/28/17 21:18 Problems: (1) Arthritis, rheumatoid (2) Aspiration pneumonia (3) Diabetes mellitus (4) ARDS (adult respiratory distress syndrome) (5) Transaminitis Status: Acute (6) Dyspnea (7) Parkinsons disease (8) Sepsis (9) GERD (gastroesophageal reflux disease) (10) Aplastic anemia (11) Pneumonia (12) HTN (hypertension) Dary Nixon M.D. Sep 28, 2017 22:15
[2017-09-28] MEDS: D5 1/2NS 1,000 ML IV SCH (23:00)
--- NOTE | 2017-09-28 23:00 | General Progress Note ---
Assessment/Plan Assessment/Plan #. Leukocytosis likely related to underlying pneumonia infection. --> On antibiotic treatment. --> Wbc count worsened from yesterday. --> Cont to monitor and trend daily. #. Thrombocytopenia, severe and progressive, acute onset, likely secondary to underlying infection, aspiration pneumonia versus HIT. --> Antibody test is pending. Heparin has been discontinued on 09/18/2017. --> Duplex of the lower extremities is negative, therefore less likely HIT and other causes are more likely such as underlying infection. --> Platelets goal >20k, transfuse if necessary. --> Has Remained low past few days. On antibiotic treatment. --> Improved slightly today. #. Anemia due to underlying chronic disease. Continue to closely monitor. --> Hemoglobin goal is above 7. --> Transfuse as necessary --> Anemia workup has been reviewed at this point. --> hemoglobin levels downtrended from yesterday. Remains above goal, but monitor closely. #. Community-acquired pneumonia versus hospital-acquired. --> The patient on broad-spectrum antibiotics. --> Improved. --> Urine culture growing E. coli. Continue to closely monitor. #. Transaminitis. She has been seen by GI Service. Continue to closely monitor. #. Low-grade fever. Closely observe. #. Encephalopathy. Subjective Date patient seen: Sep 28, 2017 Constitutional: Denies: no symptoms, chills, diaphoresis, fever, malaise, weakness, other HEENT: Denies: no symptoms, eye pain, blurred vision, tearing, double vision, ear pain, ear discharge, nose pain, nose congestion, throat pain, throat swelling, mouth pain, mouth swelling, other Cardiovascular: Denies: no symptoms, chest pain, edema, irregular heart rate, lightheadedness, palpitations, syncope, other Respiratory: Denies: no symptoms, cough, orthopnea, shortness of breath, SOB with excertion, SOB at rest, sputum, stridor, wheezing, other Gastrointestinal/Abdominal: Denies: no symptoms, abdomen distended, abdominal pain, black stools, tarry stools, blood in stool, constipated, diarrhea, difficulty swallowing, nausea, poor appetite, poor fluid intake, rectal bleeding , vomiting, other Genitourinary: Denies: no symptoms, burning, discharge, frequency, flank pain, hematuria, incontinence, pain, urgency, other 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: Denies: no symptoms, anxiety, depressed, emotional problems, headache, numbness, paresthesia, pre-existing deficit, seizure, tingling, tremors, weakness, other Hematologic/Lymphatic: Reports: anemia Allergies: Coded Allergies: No Known Allergies (Verified , 11/18/08) Subjective Intubated in ICU. Platelets improving. Leukocytosis. Objective Last 24 Hour Vital Signs Date Time Temp Pulse Resp B/P (MAP) Pulse Ox O2 Delivery O2 Flow Rate FiO2 09/28/17 22:10 115 125/50 09/28/17 22:00 70 09/28/17 22:00 118 24 125/50 97 Mechanical Ventilator 70 09/28/17 21:21 115 25 60 09/28/17 21:00 121 25 147/57 97 Mechanical Ventilator 70 09/28/17 20:00 121 09/28/17 20:00 98.2 118 22 147/57 97 Mechanical Ventilator 70 98.2 09/28/17 19:00 102 24 122/50 97 Mechanical Ventilator 70 09/28/17 18:56 102 25 60 09/28/17 18:00 101 23 117/46 97 Mechanical Ventilator 70 09/28/17 17:17 95 31 70 09/28/17 17:00 93 23 117/51 100 Mechanical Ventilator 70 09/28/17 16:00 97 09/28/17 16:00 70 09/28/17 16:00 98.9 89 22 108/45 100 Mechanical Ventilator 70 98.9 09/28/17 15:25 94 24 70 09/28/17 15:00 95 24 106/52 97 Mechanical Ventilator 70 09/28/17 14:53 97 110/50 09/28/17 14:00 99 24 110/50 98 Mechanical Ventilator 70 09/28/17 13:18 103 21 99 Mechanical Ventilator 09/28/17 13:01 103 26 100 Mechanical Ventilator 70 09/28/17 13:00 98.9 103 22 126/52 98 Mechanical Ventilator 70 98.9 18 12:51 92 22 70 09/28/17 12:00 70 09/28/17 12:00 99.7 105 26 117/52 100 Mechanical Ventilator 70 99.7 09/28/17 12:00 102 09/28/17 11:10 102 24 70 09/28/17 11:00 105 28 114/48 100 Mechanical Ventilator 70 09/28/17 10:00 86 28 115/45 99 Mechanical Ventilator 70 09/28/17 09:00 98.9 102 26 121/52 98 Mechanical Ventilator 70 98.9 09/28/17 08:36 89 22 70 09/28/17 08:00 70 09/28/17 08:00 99.0 95 26 122/51 98 Mechanical Ventilator 70 99.0 09/28/17 08:00 92 09/28/17 07:00 100 17 118/48 96 Mechanical Ventilator 70 09/28/17 06:58 92 21 70 09/28/17 06:00 103 24 110/48 98 Mechanical Ventilator 70 09/28/17 05:34 95 25 70 09/28/17 05:32 112 112/50 09/28/17 05:00 99 24 112/50 98 Mechanical Ventilator 70 09/28/17 04:09 95 25 70 09/28/17 04:00 98.1 101 17 123/55 98 Mechanical Ventilator 70 98.1 09/28/17 04:00 70 09/28/17 03:24 99 09/28/17 03:00 95 25 110/50 99 Mechanical Ventilator 70 09/28/17 02:00 98 26 111/50 100 Mechanical Ventilator 70 09/28/17 01:00 104 29 124/53 96 Mechanical Ventilator 70 09/28/17 00:40 97 35 70 09/28/17 00:00 70 09/28/17 00:00 98.6 100 35 110/55 93 Mechanical Ventilator 70 98.6 09/27/17 23:05 97 09/27/17 23:00 97 34 112/54 95 Mechanical Ventilator 70 Intake and Output 09/27/17 09/28/17 19:00 07:00 Intake Total 1085 ml 1220 ml Output Total 1410 ml 1455 ml Balance -325 ml -235 ml Intake Free Water 450 ml 300 ml Tube Feeding 635 ml 720 ml Other 200 ml Output Urine Total 1410 ml 1455 ml # Bowel Movements 1 3 Laboratory Tests 09/28/17 03:55: White Blood Count 15.0H, Red Blood Count 2.48L, Hemoglobin 8.0L, Hematocrit 25.8L, Mean Corpuscular Volume 104H, Mean Corpuscular Hemoglobin 32.4H, Mean Corpuscular Hemoglobin Concent 31.0L, Red Cell Distribution Width 24.3H, Platelet Count 47L, Mean Platelet Volume 11.3H, Neutrophils (%) (Auto) , Lymphocytes (%) (Auto) , Monocytes (%) (Auto) , Eosinophils (%) (Auto) , Basophils (%) (Auto) , Differential Total Cells Counted 100, Neutrophils % ( Manual) 80H, Lymphocytes % (Manual) 7L, Monocytes % (Manual) 10, Eosinophils % ( Manual) 3, Basophils % (Manual) 0, Band Neutrophils 0, Platelet Estimate DecreasedL, Platelet Morphology Normal, Polychromasia 2+, Hypochromasia 1+, Anisocytosis 2+, Macrocytosis 2+, Prothrombin Time 15.8H, Prothromb Time International Ratio 1.5H, Sodium Level 157H, Potassium Level 4.1, Chloride Level 122H, Carbon Dioxide Level 30, Anion Gap 6, Blood Urea Nitrogen 69H, Creatinine 1.1, Estimat Glomerular Filtration Rate , Glucose Level 150H, Calcium Level 9.3, Phosphorus Level 5.2H, Magnesium Level 2.3, Total Bilirubin 1.6H, Direct Bilirubin 1.1H, Aspartate Amino Transf (AST/SGOT) 40H, Alanine Aminotransferase (ALT/SGPT) 18, Alkaline Phosphatase 860H, Total Protein 5.7L, Albumin 2.0L, Globulin 3.7, Albumin/Globulin Ratio 0.5L 09/28/17 07:02: Arterial Blood pH 7.470H, Arterial Blood Partial Pressure CO2 38.0, Arterial Blood Partial Pressure O2 77.9, Arterial Blood HCO3 27.5H, Arterial Blood Oxygen Saturation 94.2, Arterial Blood Base Excess 3.7, Luis A Test Positive Height (Feet): 5 Height (Inches): 0.00 Weight (Pounds): 109 General Appearance: confused Respiratory/Chest: decreased breath sounds Abdomen: soft Johnny Sinha MD Sep 28, 2017 23:00
[2017-09-29] VITALS (24 sets, daily range): BP systolic 111–132; BP diastolic 48–66
[2017-09-29] MEDS: NovoLOG Insulin Flexpen SUBQ SCH ×5 (00:48→23:22)
[2017-09-29 01:05] LABS: INR 1.5 (0.9-1.1)
[2017-09-29 06:01] LABS: HEMATOCRIT 23.2 % (37.0-47.0); MEAN CORPUSCULAR VOLUME 105 FL (80-99); PLATELET COUNT 52 K/UL (150-450); RED BLOOD COUNT 2.21 M/UL (4.20-5.40); RED CELL DISTRIBUTION WIDTH 22.9 % (11.6-14.8); WHITE BLOOD COUNT 11.2 K/UL (4.8-10.8)
[2017-09-29] MEDS: dilTIAZem HCl 30mg tab NG SCH ×3 (06:10→22:05)
[2017-09-29] MEDS: metroNIDAZOLE 500mg tab ORAL SCH ×3 (06:15→22:05)
[2017-09-29 06:19] LABS: PHOSPHORUS 4.5 MG/DL (2.5-4.9)
[2017-09-29 06:27] LABS: ALANINE AMINOTRANSFERASE 14 U/L (12-78); ALBUMIN 2.1 G/DL (3.4-5.0); ALBUMIN/GLOBULIN RATIO 0.6 (1.0-2.7); ALKALINE PHOSPHATASE 812 U/L (46-116); ANION GAP 4 mmol/L (5-15); ASPARTATE AMINO TRANSFERASE 35 U/L (15-37); BILIRUBIN,TOTAL 2.1 MG/DL (0.2-1.0); BLOOD UREA NITROGEN 62 mg/dL (7-18); CALCIUM 9.1 MG/DL (8.5-10.1); CARBON DIOXIDE 31 MMOL/L (21-32); CHLORIDE 121 MMOL/L (98-107); CREATININE 1.1 MG/DL (0.55-1.30); POTASSIUM 3.8 MMOL/L (3.5-5.1); SODIUM 156 MMOL/L (136-145)
[2017-09-29 06:28] LABS: BILIRUBIN,DIRECT 1.1 MG/DL (0.0-0.3)
[2017-09-29] MEDS: Ketotifen Fumarate 0.035% 5ml BOTH EYES SCH (09:06)
[2017-09-29] MEDS: D5 1/2NS 1,000 ML IV SCH ×2 (09:06→19:32)
[2017-09-29 09:56] LABS: HEMATOCRIT 23.3 % (37.0-47.0); MEAN CORPUSCULAR VOLUME 105 FL (80-99); PLATELET COUNT 59 K/UL (150-450); RED BLOOD COUNT 2.22 M/UL (4.20-5.40); RED CELL DISTRIBUTION WIDTH 23.3 % (11.6-14.8); WHITE BLOOD COUNT 11.8 K/UL (4.8-10.8)
--- NOTE | 2017-09-29 10:23 | General Progress Note ---
Assessment/Plan Assessment/Plan Assessment - Resp failure / ARDS / PNA - Abnormal LFT, Biliary dilation, r/o CBD stone and biliary sepsis - Anemia with OB (+) stools - thrombocytopenia - Malnutrition - on NGT feeds - Diarrhea - C Diff negative - hypernatremia - Leukocytosis / sepsis - on abx Recommendations - Continue supportive care, per family directive - will d/w family re EUS/ERCP - transfuse PRN - Elevate HOB - Vent care - Monitor H&H, WBC, LFT, Na Subjective Allergies: Coded Allergies: No Known Allergies (Verified , 11/18/08) Subjective on Vent Bili up to 2.1 today d/w Dr. Walton - patient poor candidate for EUS Decided to re-discuss after ultrasound results available abd u/s - Prelim: (+) gallstones, CBD 10 mm (last u/s 7 mm) Objective Last 24 Hour Vital Signs Date Time Temp Pulse Resp B/P (MAP) Pulse Ox O2 Delivery O2 Flow Rate FiO2 09/29/17 09:21 99 26 60 09/29/17 07:25 100 24 60 09/29/17 07:00 101 25 115/57 97 Mechanical Ventilator 70 09/29/17 06:10 104 129/59 09/29/17 06:00 103 25 129/59 97 Mechanical Ventilator 70 09/29/17 05:06 105 23 60 09/29/17 05:00 104 32 130/57 96 Mechanical Ventilator 70 09/29/17 04:00 70 09/29/17 04:00 99.0 103 25 115/53 97 Mechanical Ventilator 70 99.0 09/29/17 04:00 103 09/29/17 03:00 99 25 120/50 97 Mechanical Ventilator 70 09/29/17 02:41 110 25 60 09/29/17 02:00 99 24 116/48 97 Mechanical Ventilator 70 09/29/17 01:06 107 25 60 09/29/17 01:00 118 24 116/48 97 Mechanical Ventilator 70 09/29/17 00:00 70 09/29/17 00:00 124 51 124/51 97 Mechanical Ventilator 70 09/28/17 23:14 110 26 60 09/28/17 23:00 118 24 125/50 97 Mechanical Ventilator 70 09/28/17 22:10 115 125/50 09/28/17 22:00 70 09/28/17 22:00 118 24 125/50 97 Mechanical Ventilator 70 18 21:21 115 25 60 18 21:00 121 25 147/57 97 Mechanical Ventilator 70 18 20:00 121 18 20:00 70 18 20:00 98.2 118 22 147/57 97 Mechanical Ventilator 70 98.2 09/28/17 19:00 102 24 122/50 97 Mechanical Ventilator 70 18 18:56 102 25 60 18 18:00 101 23 117/46 97 Mechanical Ventilator 70 18 17:17 95 31 70 18 17:00 93 23 117/51 100 Mechanical Ventilator 70 09/28/17 16:00 97 09/28/17 16:00 70 09/28/17 16:00 98.9 89 22 108/45 100 Mechanical Ventilator 70 98.9 09/28/17 15:25 94 24 70 09/28/17 15:00 95 24 106/52 97 Mechanical Ventilator 70 09/28/17 14:53 97 110/50 09/28/17 14:00 99 24 110/50 98 Mechanical Ventilator 70 18 13:18 103 21 99 Mechanical Ventilator 18 13:01 103 26 100 Mechanical Ventilator 70 09/28/17 13:00 98.9 103 22 126/52 98 Mechanical Ventilator 70 98.9 18 12:51 92 22 70 18 12:00 70 18 12:00 99.7 105 26 117/52 100 Mechanical Ventilator 70 99.7 09/28/17 12:00 102 09/28/17 11:10 102 24 70 18 11:00 105 28 114/48 100 Mechanical Ventilator 70 Intake and Output 09/28/17 09/29/17 19:00 07:00 Intake Total 1132 ml 1060 ml Output Total 2345 ml 765 ml Balance -1213 ml 295 ml Intake Free Water 400 ml 400 ml IV Total 112 ml 500 ml Tube Feeding 620 ml 160 ml Output Urine Total 2345 ml 765 ml # Bowel Movements 1 Laboratory Tests 09/29/17 00:40: Prothrombin Time 15.7H, Prothromb Time International Ratio 1.5H, Activated Partial Thromboplast Time 33 09/29/17 04:30: White Blood Count 11.2H, Red Blood Count 2.21L, Hemoglobin 7.0L, Hematocrit 23.2L, Mean Corpuscular Volume 105H, Mean Corpuscular Hemoglobin 31.6H, Mean Corpuscular Hemoglobin Concent 30.1L, Red Cell Distribution Width 22.9H, Platelet Count 52L, Mean Platelet Volume 11.3H, Neutrophils (%) (Auto) , Lymphocytes (%) (Auto) , Monocytes (%) (Auto) , Eosinophils (%) (Auto) , Basophils (%) (Auto) , Differential Total Cells Counted 100, Neutrophils % ( Manual) 83H, Lymphocytes % (Manual) 12L, Monocytes % (Manual) 5, Eosinophils % ( Manual) 0, Basophils % (Manual) 0, Band Neutrophils 0, Platelet Estimate DecreasedL, Platelet Morphology Normal, Polychromasia 1+, Hypochromasia 1+, Anisocytosis 2+, Macrocytosis 1+, Sodium Level 156H, Potassium Level 3.8, Chloride Level 121H, Carbon Dioxide Level 31, Anion Gap 4L, Blood Urea Nitrogen 62H, Creatinine 1.1, Estimat Glomerular Filtration Rate , Glucose Level 120H, Calcium Level 9.1, Phosphorus Level 4.5, Magnesium Level 2.3, Total Bilirubin 2.1H, Direct Bilirubin 1.1H, Aspartate Amino Transf (AST/SGOT) 35, Alanine Aminotransferase (ALT/SGPT) 14, Alkaline Phosphatase 812H, Total Protein 5.4L, Albumin 2.1L, Globulin 3.3, Albumin/Globulin Ratio 0.6L 09/29/17 09:05: White Blood Count 11.8H, Red Blood Count 2.22L, Hemoglobin 7.0L, Hematocrit 23.3L, Mean Corpuscular Volume 105H, Mean Corpuscular Hemoglobin 31.5H, Mean Corpuscular Hemoglobin Concent 29.9L, Red Cell Distribution Width 23.3H, Platelet Count 59L, Mean Platelet Volume 12.2H, Neutrophils (%) (Auto) , Lymphocytes (%) (Auto) , Monocytes (%) (Auto) , Eosinophils (%) (Auto) , Basophils (%) (Auto) , Neutrophils % (Manual) [Pending], Lymphocytes % (Manual) [Pending], Platelet Estimate [Pending], Platelet Morphology [Pending] Height (Feet): 5 Height (Inches): 0.00 Weight (Pounds): 110 Objective WDWN NCAT , (+) ETT supple CTA RRR abd soft (+) edema non verbal ARNULFO DURON Sep 29, 2017 10:23
--- NOTE | 2017-09-29 10:37 | Pulmonolgy Critical Care Note ---
Critical Care - Asmt/Plan Problems: (1) ARDS (adult respiratory distress syndrome) (2) Aspiration pneumonia (3) Anemia (4) Thrombocytopenia (5) Diabetes mellitus (6) Protein-calorie malnutrition, severe Assessment/Plan: improving overall, still on fio2 70%. Once the fio2 is less than 40 we start weaning. 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 Discussed with: nurses, consultants, lead case managermanager flight - Objective Last 24 Hour Vital Signs Date Time Temp Pulse Resp B/P (MAP) Pulse Ox O2 Delivery O2 Flow Rate FiO2 09/29/17 09:21 99 26 60 09/29/17 07:25 100 24 60 09/29/17 07:00 101 25 115/57 97 Mechanical Ventilator 70 09/29/17 06:10 104 129/59 09/29/17 06:00 103 25 129/59 97 Mechanical Ventilator 70 09/29/17 05:06 105 23 60 09/29/17 05:00 104 32 130/57 96 Mechanical Ventilator 70 09/29/17 04:00 70 09/29/17 04:00 99.0 103 25 115/53 97 Mechanical Ventilator 70 99.0 09/29/17 04:00 103 09/29/17 03:00 99 25 120/50 97 Mechanical Ventilator 70 09/29/17 02:41 110 25 60 09/29/17 02:00 99 24 116/48 97 Mechanical Ventilator 70 09/29/17 01:06 107 25 60 09/29/17 01:00 118 24 116/48 97 Mechanical Ventilator 70 09/29/17 00:00 70 09/29/17 00:00 124 51 124/51 97 Mechanical Ventilator 70 09/28/17 23:14 110 26 60 09/28/17 23:00 118 24 125/50 97 Mechanical Ventilator 70 09/28/17 22:10 115 125/50 09/28/17 22:00 70 09/28/17 22:00 118 24 125/50 97 Mechanical Ventilator 70 09/28/17 21:21 115 25 60 3/18/18 21:00 121 25 147/57 97 Mechanical Ventilator 70 09/28/17 20:00 121 09/28/17 20:00 70 09/28/17 20:00 98.2 118 22 147/57 97 Mechanical Ventilator 70 98.2 09/28/17 19:00 102 24 122/50 97 Mechanical Ventilator 70 09/28/17 18:56 102 25 60 09/28/17 18:00 101 23 117/46 97 Mechanical Ventilator 70 09/28/17 17:17 95 31 70 09/28/17 17:00 93 23 117/51 100 Mechanical Ventilator 70 09/28/17 16:00 97 09/28/17 16:00 70 09/28/17 16:00 98.9 89 22 108/45 100 Mechanical Ventilator 70 98.9 09/28/17 15:25 94 24 70 09/28/17 15:00 95 24 106/52 97 Mechanical Ventilator 70 09/28/17 14:53 97 110/50 09/28/17 14:00 99 24 110/50 98 Mechanical Ventilator 70 09/28/17 13:18 103 21 99 Mechanical Ventilator 09/28/17 13:01 103 26 100 Mechanical Ventilator 70 09/28/17 13:00 98.9 103 22 126/52 98 Mechanical Ventilator 70 98.9 09/28/17 12:51 92 22 70 09/28/17 12:00 70 09/28/17 12:00 99.7 105 26 117/52 100 Mechanical Ventilator 70 99.7 09/28/17 12:00 102 09/28/17 11:10 102 24 70 09/28/17 11:00 105 28 114/48 100 Mechanical Ventilator 70 Status: awake Condition: critical HEENT: atraumatic Neck: full ROM Lungs: rales, rhonchi Heart: HR/BP stable, HR/BP unstable Abdomen: active bowel sounds, feeding tube Decubiti: location, stage Accucheck: 165 Critical Care - Subjective ROS Limited/Unobtainable: Yes ICU Day: 12 Intubation Day: 12 Condition: critical EKG Rhythm: Sinus Rhythm FI02: 60 Vent Support Breath Rate: 18 Vent Support Mode: AC Vent Tidal Volume: 500 Sputum Amount: Moderate PEEP: 5.0 PIP: 39 Tube Feeding Amount: 0 I&O: Intake and Output 09/28/17 09/29/17 19:00 07:00 Intake Total 1132 ml 1060 ml Output Total 2345 ml 765 ml Balance -1213 ml 295 ml Intake Free Water 400 ml 400 ml IV Total 112 ml 500 ml Tube Feeding 620 ml 160 ml Output Urine Total 2345 ml 765 ml # Bowel Movements 1 CXR: ARDS like infiltrate ET-Tube: 7.5 ET Position: 20 Labs: Laboratory Tests Test 09/29/17 00:40 09/29/17 04:30 09/29/17 09:05 09/29/17 10:05 Prothrombin Time 15.7 SEC (9.30-11.50) H Prothromb Time International Ratio 1.5 (0.9-1.1) H Activated Partial Thromboplast Time 33 SEC (23-33) White Blood Count 11.2 K/UL (4.8-10.8) H 11.8 K/UL (4.8-10.8) H Red Blood Count 2.21 M/UL (4.20-5.40) L 2.22 M/UL (4.20-5.40) L Hemoglobin 7.0 G/DL (12.0-16.0) L 7.0 G/DL (12.0-16.0) L Hematocrit 23.2 % (37.0-47.0) L 23.3 % (37.0-47.0) L Mean Corpuscular Volume 105 FL (80-99) H 105 FL (80-99) H Mean Corpuscular Hemoglobin 31.6 PG (27.0-31.0) H 31.5 PG (27.0-31.0) H Mean Corpuscular Hemoglobin Concent 30.1 G/DL (32.0-36.0) L 29.9 G/DL (32.0-36.0) L Red Cell Distribution Width 22.9 % (11.6-14.8) H 23.3 % (11.6-14.8) H Platelet Count 52 K/UL (150-450) L 59 K/UL (150-450) L Mean Platelet Volume 11.3 FL (6.5-10.1) H 12.2 FL (6.5-10.1) H Neutrophils (%) (Auto) % (45.0-75.0) % (45.0-75.0) Lymphocytes (%) (Auto) % (20.0-45.0) % (20.0-45.0) Monocytes (%) (Auto) % (1.0-10.0) % (1.0-10.0) Eosinophils (%) (Auto) % (0.0-3.0) % (0.0-3.0) Basophils (%) (Auto) % (0.0-2.0) % (0.0-2.0) Differential Total Cells Counted 100 Neutrophils % (Manual) 83 % (45-75) H Pending Lymphocytes % (Manual) 12 % (20-45) L Pending Monocytes % (Manual) 5 % (1-10) Eosinophils % (Manual) 0 % (0-3) Basophils % (Manual) 0 % (0-2) Band Neutrophils 0 % (0-8) Platelet Estimate Decreased L Pending Platelet Morphology Normal Pending Polychromasia 1+ Hypochromasia 1+ Anisocytosis 2+ Macrocytosis 1+ Sodium Level 156 MMOL/L (136-145) H Potassium Level 3.8 MMOL/L (3.5-5.1) Chloride Level 121 MMOL/L (98-107) H Carbon Dioxide Level 31 MMOL/L (21-32) Anion Gap 4 mmol/L (5-15) L Blood Urea Nitrogen 62 mg/dL (7-18) H Creatinine 1.1 MG/DL (0.55-1.30) Estimat Glomerular Filtration Rate mL/min (>60) Glucose Level 120 MG/DL (74-106) H Calcium Level 9.1 MG/DL (8.5-10.1) Phosphorus Level 4.5 MG/DL (2.5-4.9) Magnesium Level 2.3 MG/DL (1.8-2.4) Total Bilirubin 2.1 MG/DL (0.2-1.0) H Direct Bilirubin 1.1 MG/DL (0.0-0.3) H Aspartate Amino Transf (AST/SGOT) 35 U/L (15-37) Alanine Aminotransferase (ALT/SGPT) 14 U/L (12-78) Alkaline Phosphatase 812 U/L (46-116) H Total Protein 5.4 G/DL (6.4-8.2) L Albumin 2.1 G/DL (3.4-5.0) L Globulin 3.3 g/dL Albumin/Globulin Ratio 0.6 (1.0-2.7) L Arterial Blood pH 7.507 (7.350-7.450) Arterial Blood Partial Pressure CO2 37.8 mmHg (35.0-45.0) Arterial Blood Partial Pressure O2 111.7 mmHg (75.0-100.0) H Arterial Blood HCO3 29.3 mmol/L (22.0-26.0) H Arterial Blood Oxygen Saturation 97.3 % (92.0-98.0) Arterial Blood Base Excess 5.8 Luis A Test Positive Tayler iLu MD Sep 29, 2017 10:37
--- NOTE | 2017-09-29 11:10 | Diagnostic Imaging Report ---
Indication: Dyspnea Technique: One view of the chest Comparison: 09/28/2017 Findings: Stable satisfactory positions of endotracheal and nasogastric tube. Diffuse bilateral interstitial and airspace disease persists, unchanged on the right and perhaps minimally improved on the left. The heart size is normal Impression: Possible slight improvement of parenchymal disease on the left. Otherwise little chart changer one day, findings as described
--- NOTE | 2017-09-29 11:11 | Infectious Diseases Prog Note ---
Assessment/Plan Assessment/Plan The patient is a 76-year-old female w Fever, SP Leukocytosis , improving- r/o new infection, JOSETTE, bacteremia -Cdiff neg -09/22 sp cx C.a lbicans, Bcx NTD -u/a wbc 10-15, nit neg, leuk +2; ucx >100k C. albicans -Fungal sp cx p Community-acquired vs healthcare-associated pneumonia (the patient has been recently hospitalized in [facility]). -now ARDS- r/o fungal PNA - cxray 09/26 : no changes -CT chest 09/23: Diffuse extensive pulmonary parenchymal disease, with dense consolidation interspersed with groundglass opacities. Appearance nonspecific, possibilities include pulmonary edema, pneumonia, ARDS, hemorrhage. Bilateral pleural effusions, left greater than right. Diffuse edema of the subcutaneous fat, Multiple small thyroid nodules. All apparently under 1 cm, no further follow-up necessary. Degenerative changes of the shoulders 09/19 xray : Unchanged diffuse interstitial and airspace edema, Probable influenza despite of negative influenza screening test, s/p Rx Abnormal liver function tests, ALP>>> AST -?cholangitis, obstruction on CBD; AST and ALP had improved, now worsenign again -HIDA scan: Negative for evidence of cystic duct obstruction/acute cholecystitis. Common bile duct is demonstrated be patent, but emptying into the duodenum is delayed, not seen until 2 hours. Significance of this is uncertain. MRCP or CT scanning may be useful to clarify -CT abd/p 09/23: Evidence of anasarca, with diffuse edema subcutaneous and mesenteric fat, bilateral pleural effusions, possible pulmonary edema, trace ascites. Densities within the gallbladder, probably reflecting tiny gallstones, although these are not identifiable on recent ultrasound. Gallbladder wall edema is probably a manifestation of anasarca, as recent hepatobiliary scan was negative for acute cholecystitis. Old ununited fracture deformities of the right pelvis. Bilateral chronic appearing hip dislocations Ultrasound of the abdomen : Gallbladder sludge. No definite stones. 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 -R/o HIT. Abx and protonix could be also be contributors. VDRF / ARDS HTN GERD History of auditory hallucination. Depression. Anemia. Rheumatoid arthritis. History of gastritis. PLAN: -Continue Amikacin # 01/20- (abx d#11) and flagyl # 01/20- for now while awaiting cx and possible CT abd/w +/- ERCP- patient's WBC improving with current regimen 09/25 sp Fluconazole #3 (held due to rise ALP) 09/23 SP Meropenem #5, PO Vanco #2 09/21 SP tamiflu #10 09/19 SP vancomycin and Levaquin d# 18 -f/u repeat cx -f/u Asp ag, fungitell, Cocci ab, fungal sp cx Monitor CBC.; Trend WBC Monitor BMP.; Trend LFTs Monitor chest x-ray -GI, heme onc f/u Subjective Allergies: Coded Allergies: No Known Allergies (Verified , 11/18/08) Subjective afebrile in 36 hrs cx neg leukocytosis improved Objective Vital Signs Last 24 Hour Vital Signs Date Time Temp Pulse Resp B/P (MAP) Pulse Ox O2 Delivery O2 Flow Rate FiO2 09/29/17 10:45 107 27 60 09/29/17 09:21 99 26 60 09/29/17 07:25 100 24 60 09/29/17 07:00 101 25 115/57 97 Mechanical Ventilator 70 09/29/17 06:10 104 129/59 09/29/17 06:00 103 25 129/59 97 Mechanical Ventilator 70 09/29/17 05:06 105 23 60 09/29/17 05:00 104 32 130/57 96 Mechanical Ventilator 70 09/29/17 04:00 70 09/29/17 04:00 99.0 103 25 115/53 97 Mechanical Ventilator 70 99.0 09/29/17 04:00 103 09/29/17 03:00 99 25 120/50 97 Mechanical Ventilator 70 09/29/17 02:41 110 25 60 09/29/17 02:00 99 24 116/48 97 Mechanical Ventilator 70 09/29/17 01:06 107 25 60 09/29/17 01:00 118 24 116/48 97 Mechanical Ventilator 70 09/29/17 00:00 70 09/29/17 00:00 124 51 124/51 97 Mechanical Ventilator 70 09/28/17 23:14 110 26 60 3/18/18 23:00 118 24 125/50 97 Mechanical Ventilator 70 18 22:10 115 125/50 18 22:00 70 18 22:00 118 24 125/50 97 Mechanical Ventilator 70 18 21:21 115 25 60 18 21:00 121 25 147/57 97 Mechanical Ventilator 70 18 20:00 121 18 20:00 70 18 20:00 98.2 118 22 147/57 97 Mechanical Ventilator 70 98.2 09/28/17 19:00 102 24 122/50 97 Mechanical Ventilator 70 18 18:56 102 25 60 18 18:00 101 23 117/46 97 Mechanical Ventilator 70 18 17:17 95 31 70 18 17:00 93 23 117/51 100 Mechanical Ventilator 70 18 16:00 97 18 16:00 70 09/28/17 16:00 98.9 89 22 108/45 100 Mechanical Ventilator 70 98.9 18 15:25 94 24 70 18 15:00 95 24 106/52 97 Mechanical Ventilator 70 18 14:53 97 110/50 18 14:00 99 24 110/50 98 Mechanical Ventilator 70 18 13:18 103 21 99 Mechanical Ventilator 18 13:01 103 26 100 Mechanical Ventilator 70 18 13:00 98.9 103 22 126/52 98 Mechanical Ventilator 70 98.9 18 12:51 92 22 70 18 12:00 70 18 12:00 99.7 105 26 117/52 100 Mechanical Ventilator 70 99.7 18 12:00 102 18 11:10 102 24 70 Height (Feet): 5 Height (Inches): 0.00 Weight (Pounds): 110 Objective General Appearance: lethargic, thin EENT: normal ENT inspection Neck: non-tender, normal alignment, supple Cardiovascular: normal peripheral pulses, normal rate, regular rhythm, no gallop/murmur, no JVD Respiratory/Chest: Mechanical vent; respiratory distress, crackles/rales, rhonchi - bilaterally, expiratory wheezing Abdomen: normal bowel sounds, non tender, soft, no organomegaly, no mass Skin: normal pigmentation, warm/dry Laboratory Tests Test 09/29/17 00:40 09/29/17 04:30 09/29/17 09:05 09/29/17 10:05 Prothrombin Time 15.7 SEC (9.30-11.50) H Prothromb Time International Ratio 1.5 (0.9-1.1) H Activated Partial Thromboplast Time 33 SEC (23-33) White Blood Count 11.2 K/UL (4.8-10.8) H 11.8 K/UL (4.8-10.8) H Red Blood Count 2.21 M/UL (4.20-5.40) L 2.22 M/UL (4.20-5.40) L Hemoglobin 7.0 G/DL (12.0-16.0) L 7.0 G/DL (12.0-16.0) L Hematocrit 23.2 % (37.0-47.0) L 23.3 % (37.0-47.0) L Mean Corpuscular Volume 105 FL (80-99) H 105 FL (80-99) H Mean Corpuscular Hemoglobin 31.6 PG (27.0-31.0) H 31.5 PG (27.0-31.0) H Mean Corpuscular Hemoglobin Concent 30.1 G/DL (32.0-36.0) L 29.9 G/DL (32.0-36.0) L Red Cell Distribution Width 22.9 % (11.6-14.8) H 23.3 % (11.6-14.8) H Platelet Count 52 K/UL (150-450) L 59 K/UL (150-450) L Mean Platelet Volume 11.3 FL (6.5-10.1) H 12.2 FL (6.5-10.1) H Neutrophils (%) (Auto) % (45.0-75.0) % (45.0-75.0) Lymphocytes (%) (Auto) % (20.0-45.0) % (20.0-45.0) Monocytes (%) (Auto) % (1.0-10.0) % (1.0-10.0) Eosinophils (%) (Auto) % (0.0-3.0) % (0.0-3.0) Basophils (%) (Auto) % (0.0-2.0) % (0.0-2.0) Differential Total Cells Counted 100 100 Neutrophils % (Manual) 83 % (45-75) H 86 % (45-75) H Lymphocytes % (Manual) 12 % (20-45) L 4 % (20-45) L Monocytes % (Manual) 5 % (1-10) 9 % (1-10) Eosinophils % (Manual) 0 % (0-3) 1 % (0-3) Basophils % (Manual) 0 % (0-2) 0 % (0-2) Band Neutrophils 0 % (0-8) 0 % (0-8) Platelet Estimate Decreased L Decreased L Platelet Morphology Normal Normal Polychromasia 1+ 2+ Hypochromasia 1+ 1+ Anisocytosis 2+ 2+ Macrocytosis 1+ 1+ Sodium Level 156 MMOL/L (136-145) H Potassium Level 3.8 MMOL/L (3.5-5.1) Chloride Level 121 MMOL/L (98-107) H Carbon Dioxide Level 31 MMOL/L (21-32) Anion Gap 4 mmol/L (5-15) L Blood Urea Nitrogen 62 mg/dL (7-18) H Creatinine 1.1 MG/DL (0.55-1.30) Estimat Glomerular Filtration Rate mL/min (>60) Glucose Level 120 MG/DL (74-106) H Calcium Level 9.1 MG/DL (8.5-10.1) Phosphorus Level 4.5 MG/DL (2.5-4.9) Magnesium Level 2.3 MG/DL (1.8-2.4) Total Bilirubin 2.1 MG/DL (0.2-1.0) H Direct Bilirubin 1.1 MG/DL (0.0-0.3) H Aspartate Amino Transf (AST/SGOT) 35 U/L (15-37) Alanine Aminotransferase (ALT/SGPT) 14 U/L (12-78) Alkaline Phosphatase 812 U/L (46-116) H Total Protein 5.4 G/DL (6.4-8.2) L Albumin 2.1 G/DL (3.4-5.0) L Globulin 3.3 g/dL Albumin/Globulin Ratio 0.6 (1.0-2.7) L Arterial Blood pH 7.507 (7.350-7.450) Arterial Blood Partial Pressure CO2 37.8 mmHg (35.0-45.0) Arterial Blood Partial Pressure O2 111.7 mmHg (75.0-100.0) H Arterial Blood HCO3 29.3 mmol/L (22.0-26.0) H Arterial Blood Oxygen Saturation 97.3 % (92.0-98.0) Arterial Blood Base Excess 5.8 Luis A Test Positive Current Medications Medications (Trade) Dose Ordered Sig/Hermes Route PRN Reason Start Time Stop Time Status Last Admin Dose Admin Acetaminophen (Tylenol) 650 mg EVERY 6 HOURS PRN NG Fever/Headache/Mild Pain 09/13/17 20:45 10/13/17 20:44 09/27/17 16:49 Albuterol/ Ipratropium (Albuterol/ Ipratropium) 3 ml Q4H PRN HHN Shortness of Breath 09/28/17 10:15 10/03/17 10:14 09/28/17 13:00 Amikacin Protocol (Amikacin pharmacy to dose) 1 ea DAILY PRN MISC Per rx protocol 09/23/17 11:45 10/23/17 11:44 Amikacin Sulfate 500 mg/Sodium Chloride 112 ml @ 112 mls/hr Q36H IV 09/25/17 11:30 10/02/17 11:29 09/28/17 12:04 Clonidine HCl (Catapres Tab) 0.1 mg Q4H PRN ORAL SBP>160 UNRELIEVED BY HYDRALAZ 09/16/17 16:45 10/15/17 16:59 Dextrose (Dextrose 50%) STAT PRN IV Hypoglycemia 09/13/17 15:00 10/13/17 14:59 Dextrose/Sodium Chloride 1,000 ml @ 100 mls/hr Q10H IV 09/28/17 23:00 10/28/17 22:59 09/29/17 09:06 Diltiazem HCl (Cardizem) 30 mg EVERY 8 HOURS NG 09/18/17 22:00 10/18/17 21:59 09/29/17 06:10 Insulin Aspart (NovoLOG) EVERY 6 HOURS SUBQ 09/17/17 12:00 10/17/17 11:59 09/29/17 06:12 Ketotifen Fumarate (Zatidor) 1 drop DAILY BOTH EYES 09/26/17 09:00 10/25/17 08:59 09/29/17 09:06 Metronidazole (Flagyl) 500 mg Q8HR ORAL 09/23/17 14:00 09/30/17 13:59 09/29/17 06:15 Pantoprazole (Protonix) 40 mg DAILY ORAL 09/28/17 09:00 10/28/17 08:59 09/29/17 09:06 Polyethylene Glycol (Miralax) 17 gm BEDTIME ORAL 09/14/17 21:00 10/14/17 20:59 09/28/17 21:18 Madelyn Frey M.D. Sep 29, 2017 11:11
--- NOTE | 2017-09-29 12:04 | Internal Med Progress Note ---
Subjective Date of Service: Sep 29, 2017 Physician Name Sina Bowens Attending Physician Jesus Barahona MD Current Medications Medications (Trade) Dose Ordered Sig/Hermes Route PRN Reason Start Time Stop Time Status Last Admin Dose Admin Acetaminophen (Tylenol) 650 mg EVERY 6 HOURS PRN NG Fever/Headache/Mild Pain 09/13/17 20:45 10/13/17 20:44 09/27/17 16:49 Albuterol/ Ipratropium (Albuterol/ Ipratropium) 3 ml Q4H PRN HHN Shortness of Breath 09/28/17 10:15 10/03/17 10:14 09/28/17 13:00 Amikacin Protocol (Amikacin pharmacy to dose) 1 ea DAILY PRN MISC Per rx protocol 09/23/17 11:45 10/23/17 11:44 Amikacin Sulfate 500 mg/Sodium Chloride 112 ml @ 112 mls/hr Q36H IV 09/25/17 11:30 10/02/17 11:29 09/28/17 12:04 Clonidine HCl (Catapres Tab) 0.1 mg Q4H PRN ORAL SBP>160 UNRELIEVED BY HYDRALAZ 09/16/17 16:45 10/15/17 16:59 Dextrose (Dextrose 50%) STAT PRN IV Hypoglycemia 09/13/17 15:00 10/13/17 14:59 Dextrose/Sodium Chloride 1,000 ml @ 100 mls/hr Q10H IV 09/28/17 23:00 10/28/17 22:59 09/29/17 09:06 Diltiazem HCl (Cardizem) 30 mg EVERY 8 HOURS NG 09/18/17 22:00 10/18/17 21:59 09/29/17 06:10 Insulin Aspart (NovoLOG) EVERY 6 HOURS SUBQ 09/17/17 12:00 10/17/17 11:59 09/29/17 06:12 Ketotifen Fumarate (Zatidor) 1 drop DAILY BOTH EYES 09/26/17 09:00 10/25/17 08:59 09/29/17 09:06 Metronidazole (Flagyl) 500 mg Q8HR ORAL 09/23/17 14:00 09/30/17 13:59 09/29/17 06:15 Pantoprazole (Protonix) 40 mg DAILY ORAL 09/28/17 09:00 10/28/17 08:59 09/29/17 09:06 Polyethylene Glycol (Miralax) 17 gm BEDTIME ORAL 09/14/17 21:00 10/14/17 20:59 09/28/17 21:18 Allergies: Coded Allergies: No Known Allergies (Verified , 11/18/08) ROS Limited/Unobtainable: Yes Subjective 76 YO F admitted with Shortness of breath, now respiratory failure. Intubated and sedated. Cover for Internal Med-Dr. Barahona. ICU . Low Grade fever Objective Last Vital Signs Date Time Temp Pulse Resp B/P (MAP) Pulse Ox O2 Delivery O2 Flow Rate FiO2 09/29/17 10:45 107 27 60 09/29/17 07:00 115/57 97 Mechanical Ventilator 09/29/17 04:00 99.0 99.0 Laboratory Tests Test 09/29/17 00:40 09/29/17 04:30 09/29/17 09:05 09/29/17 10:05 Prothrombin Time 15.7 SEC (9.30-11.50) H Prothromb Time International Ratio 1.5 (0.9-1.1) H Activated Partial Thromboplast Time 33 SEC (23-33) White Blood Count 11.2 K/UL (4.8-10.8) H 11.8 K/UL (4.8-10.8) H Red Blood Count 2.21 M/UL (4.20-5.40) L 2.22 M/UL (4.20-5.40) L Hemoglobin 7.0 G/DL (12.0-16.0) L 7.0 G/DL (12.0-16.0) L Hematocrit 23.2 % (37.0-47.0) L 23.3 % (37.0-47.0) L Mean Corpuscular Volume 105 FL (80-99) H 105 FL (80-99) H Mean Corpuscular Hemoglobin 31.6 PG (27.0-31.0) H 31.5 PG (27.0-31.0) H Mean Corpuscular Hemoglobin Concent 30.1 G/DL (32.0-36.0) L 29.9 G/DL (32.0-36.0) L Red Cell Distribution Width 22.9 % (11.6-14.8) H 23.3 % (11.6-14.8) H Platelet Count 52 K/UL (150-450) L 59 K/UL (150-450) L Mean Platelet Volume 11.3 FL (6.5-10.1) H 12.2 FL (6.5-10.1) H Neutrophils (%) (Auto) % (45.0-75.0) % (45.0-75.0) Lymphocytes (%) (Auto) % (20.0-45.0) % (20.0-45.0) Monocytes (%) (Auto) % (1.0-10.0) % (1.0-10.0) Eosinophils (%) (Auto) % (0.0-3.0) % (0.0-3.0) Basophils (%) (Auto) % (0.0-2.0) % (0.0-2.0) Differential Total Cells Counted 100 100 Neutrophils % (Manual) 83 % (45-75) H 86 % (45-75) H Lymphocytes % (Manual) 12 % (20-45) L 4 % (20-45) L Monocytes % (Manual) 5 % (1-10) 9 % (1-10) Eosinophils % (Manual) 0 % (0-3) 1 % (0-3) Basophils % (Manual) 0 % (0-2) 0 % (0-2) Band Neutrophils 0 % (0-8) 0 % (0-8) Platelet Estimate Decreased L Decreased L Platelet Morphology Normal Normal Polychromasia 1+ 2+ Hypochromasia 1+ 1+ Anisocytosis 2+ 2+ Macrocytosis 1+ 1+ Sodium Level 156 MMOL/L (136-145) H Potassium Level 3.8 MMOL/L (3.5-5.1) Chloride Level 121 MMOL/L (98-107) H Carbon Dioxide Level 31 MMOL/L (21-32) Anion Gap 4 mmol/L (5-15) L Blood Urea Nitrogen 62 mg/dL (7-18) H Creatinine 1.1 MG/DL (0.55-1.30) Estimat Glomerular Filtration Rate mL/min (>60) Glucose Level 120 MG/DL (74-106) H Calcium Level 9.1 MG/DL (8.5-10.1) Phosphorus Level 4.5 MG/DL (2.5-4.9) Magnesium Level 2.3 MG/DL (1.8-2.4) Total Bilirubin 2.1 MG/DL (0.2-1.0) H Direct Bilirubin 1.1 MG/DL (0.0-0.3) H Aspartate Amino Transf (AST/SGOT) 35 U/L (15-37) Alanine Aminotransferase (ALT/SGPT) 14 U/L (12-78) Alkaline Phosphatase 812 U/L (46-116) H Total Protein 5.4 G/DL (6.4-8.2) L Albumin 2.1 G/DL (3.4-5.0) L Globulin 3.3 g/dL Albumin/Globulin Ratio 0.6 (1.0-2.7) L Arterial Blood pH 7.507 (7.350-7.450) Arterial Blood Partial Pressure CO2 37.8 mmHg (35.0-45.0) Arterial Blood Partial Pressure O2 111.7 mmHg (75.0-100.0) H Arterial Blood HCO3 29.3 mmol/L (22.0-26.0) H Arterial Blood Oxygen Saturation 97.3 % (92.0-98.0) Arterial Blood Base Excess 5.8 Luis A Test Positive Intake and Output 09/28/17 09/29/17 19:00 07:00 Intake Total 1132 ml 1060 ml Output Total 2345 ml 765 ml Balance -1213 ml 295 ml Intake Free Water 400 ml 400 ml IV Total 112 ml 500 ml Tube Feeding 620 ml 160 ml Output Urine Total 2345 ml 765 ml # Bowel Movements 1 Objective General Appearance: lethargic, thin EENT: normal ENT inspection Neck: non-tender, normal alignment, supple Cardiovascular: normal peripheral pulses, normal rate, regular rhythm, no gallop/murmur, no JVD Respiratory/Chest: Mechanical vent; respiratory distress, crackles/rales, rhonchi - bilaterally, expiratory wheezing Abdomen: normal bowel sounds, non tender, soft, no organomegaly, no mass Skin: normal pigmentation, warm/dry Assessment/Plan Problem List: (1) HTN (hypertension) Assessment & Plan: Currently hypotensive. (2) Arthritis, rheumatoid (3) Parkinsons disease (4) Aplastic anemia (5) GERD (gastroesophageal reflux disease) (6) Respiratory failure Assessment & Plan: Cont vent per pulmonary (7) Pneumonia (8) Dyspnea (9) Sepsis Assessment & Plan: Blood culture neg. Continue Amikacin and flagyl per ID (10) ARDS (adult respiratory distress syndrome) Assessment & Plan: See pulmonary note (11) UTI (urinary tract infection) Assessment & Plan: E.Coli. Continue levaquin (12) Anemia Assessment & Plan: S/P Transfusion 2 units PRBC (13) Diabetes mellitus, type II Assessment & Plan: Continue novolog sliding scale (14) Leukocytosis Assessment & Plan: Worsening. See ID note. Start amikacin and fluconazole (15) Thrombocytopenia Status: not improved SINA BOWENS Sep 29, 2017 12:04
--- NOTE | 2017-09-29 12:27 | Nephrology Progress Note ---
Assessment/Plan Problem List: (1) ARDS (adult respiratory distress syndrome) (2) Electrolyte imbalance (3) Thrombocytopenia Assessment Na 155 Platelets 47 K (1) ARDS (adult respiratory distress syndrome) (2) Aspiration pneumonia (3) Protein-calorie malnutrition, severe (4) Diabetes mellitus (5) Anemia , aplastic by history (6) DM (7) UTI (8) Electrolyte imbalance (9) HTN (10) Depression (11) RA . Plan doing poorly water via NGT Adjust BP meds K and Phos supplement as needed Monitor renal parameters and urine output avoid nephrotoxics per orders discussed with RN Left ventricular ejection fraction estimated to be 55 %. Subjective ROS Limited/Unobtainable: Yes Constitutional: Reports: malaise Objective Objective Last 24 Hour Vital Signs Date Time Temp Pulse Resp B/P (MAP) Pulse Ox O2 Delivery O2 Flow Rate FiO2 09/29/17 12:00 105 09/29/17 12:00 60 09/29/17 12:00 99.0 104 24 125/55 99 Mechanical Ventilator 60 99.0 09/29/17 11:00 101 25 120/59 97 Mechanical Ventilator 60 09/29/17 10:45 107 27 60 09/29/17 10:00 103 22 132/61 98 Mechanical Ventilator 60 09/29/17 09:21 99 26 60 09/29/17 09:00 101 25 118/60 96 Mechanical Ventilator 60 09/29/17 08:00 60 09/29/17 08:00 107 09/29/17 08:00 99.0 103 25 111/53 97 Mechanical Ventilator 60 99.0 09/29/17 07:25 100 24 60 09/29/17 07:00 101 25 115/57 97 Mechanical Ventilator 70 09/29/17 06:10 104 129/59 09/29/17 06:00 103 25 129/59 97 Mechanical Ventilator 70 09/29/17 05:06 105 23 60 09/29/17 05:00 104 32 130/57 96 Mechanical Ventilator 70 09/29/17 04:00 70 09/29/17 04:00 99.0 103 25 115/53 97 Mechanical Ventilator 70 99.0 09/29/17 04:00 103 09/29/17 03:00 99 25 120/50 97 Mechanical Ventilator 70 09/29/17 02:41 110 25 60 09/29/17 02:00 99 24 116/48 97 Mechanical Ventilator 70 18 01:06 107 25 60 09/29/18 01:00 118 24 116/48 97 Mechanical Ventilator 70 18 00:00 70 18 00:00 124 51 124/51 97 Mechanical Ventilator 70 18/18 23:14 110 26 60 18/18 23:00 118 24 125/50 97 Mechanical Ventilator 70 18 22:10 115 125/50 18 22:00 70 18 22:00 118 24 125/50 97 Mechanical Ventilator 70 1818 21:21 115 25 60 18/18 21:00 121 25 147/57 97 Mechanical Ventilator 70 18 20:00 121 18 20:00 70 18 20:00 98.2 118 22 147/57 97 Mechanical Ventilator 70 98.2 18 19:00 102 24 122/50 97 Mechanical Ventilator 70 18 18:56 102 25 60 18 18:00 101 23 117/46 97 Mechanical Ventilator 70 09/28/18 17:17 95 31 70 18 17:00 93 23 117/51 100 Mechanical Ventilator 70 18 16:00 97 18 16:00 70 18 16:00 98.9 89 22 108/45 100 Mechanical Ventilator 70 98.9 18 15:25 94 24 70 09/28/18 15:00 95 24 106/52 97 Mechanical Ventilator 70 18 14:53 97 110/50 18 14:00 99 24 110/50 98 Mechanical Ventilator 70 09/28/18 13:18 103 21 99 Mechanical Ventilator 18 13:01 103 26 100 Mechanical Ventilator 70 18 13:00 98.9 103 22 126/52 98 Mechanical Ventilator 70 98.9 18 12:51 92 22 70 Intake and Output 09/28/17 09/29/17 19:00 07:00 Intake Total 1132 ml 1060 ml Output Total 2345 ml 765 ml Balance -1213 ml 295 ml Intake Free Water 400 ml 400 ml IV Total 112 ml 500 ml Tube Feeding 620 ml 160 ml Output Urine Total 2345 ml 765 ml # Bowel Movements 1 Laboratory Tests 09/29/17 00:40: Prothrombin Time 15.7H, Prothromb Time International Ratio 1.5H, Activated Partial Thromboplast Time 33 09/29/17 04:30: White Blood Count 11.2H, Red Blood Count 2.21L, Hemoglobin 7.0L, Hematocrit 23.2L, Mean Corpuscular Volume 105H, Mean Corpuscular Hemoglobin 31.6H, Mean Corpuscular Hemoglobin Concent 30.1L, Red Cell Distribution Width 22.9H, Platelet Count 52L, Mean Platelet Volume 11.3H, Neutrophils (%) (Auto) , Lymphocytes (%) (Auto) , Monocytes (%) (Auto) , Eosinophils (%) (Auto) , Basophils (%) (Auto) , Differential Total Cells Counted 100, Neutrophils % ( Manual) 83H, Lymphocytes % (Manual) 12L, Monocytes % (Manual) 5, Eosinophils % ( Manual) 0, Basophils % (Manual) 0, Band Neutrophils 0, Platelet Estimate DecreasedL, Platelet Morphology Normal, Polychromasia 1+, Hypochromasia 1+, Anisocytosis 2+, Macrocytosis 1+, Sodium Level 156H, Potassium Level 3.8, Chloride Level 121H, Carbon Dioxide Level 31, Anion Gap 4L, Blood Urea Nitrogen 62H, Creatinine 1.1, Estimat Glomerular Filtration Rate , Glucose Level 120H, Calcium Level 9.1, Phosphorus Level 4.5, Magnesium Level 2.3, Total Bilirubin 2.1H, Direct Bilirubin 1.1H, Aspartate Amino Transf (AST/SGOT) 35, Alanine Aminotransferase (ALT/SGPT) 14, Alkaline Phosphatase 812H, Total Protein 5.4L, Albumin 2.1L, Globulin 3.3, Albumin/Globulin Ratio 0.6L 09/29/17 09:05: White Blood Count 11.8H, Red Blood Count 2.22L, Hemoglobin 7.0L, Hematocrit 23.3L, Mean Corpuscular Volume 105H, Mean Corpuscular Hemoglobin 31.5H, Mean Corpuscular Hemoglobin Concent 29.9L, Red Cell Distribution Width 23.3H, Platelet Count 59L, Mean Platelet Volume 12.2H, Neutrophils (%) (Auto) , Lymphocytes (%) (Auto) , Monocytes (%) (Auto) , Eosinophils (%) (Auto) , Basophils (%) (Auto) , Differential Total Cells Counted 100, Neutrophils % ( Manual) 86H, Lymphocytes % (Manual) 4L, Monocytes % (Manual) 9, Eosinophils % ( Manual) 1, Basophils % (Manual) 0, Band Neutrophils 0, Platelet Estimate DecreasedL, Platelet Morphology Normal, Polychromasia 2+, Hypochromasia 1+, Anisocytosis 2+, Macrocytosis 1+ 09/29/17 10:05: Arterial Blood pH 7.507H, Arterial Blood Partial Pressure CO2 37.8, Arterial Blood Partial Pressure O2 111.7H, Arterial Blood HCO3 29.3H, Arterial Blood Oxygen Saturation 97.3, Arterial Blood Base Excess 5.8, Luis A Test Positive Height (Feet): 5 Height (Inches): 0.00 Weight (Pounds): 110 General Appearance: no apparent distress Respiratory/Chest: decreased breath sounds Abdomen: distended Objective no change YAEL HANSEN Sep 29, 2017 12:27
--- NOTE | 2017-09-29 13:15 | Progress Note ---
DATE: 09/29/2017 SUBJECTIVE: The patient is lethargic, has waxing and waning consciousness. She is having episodes of anxiety. Compliant with medications. No behavior issues. MENTAL STATUS EXAMINATION: The patient has waxing and waning consciousness. Mood is neutral. Affect is flat. Thought process, there is a paucity of thought content. Thought content, no suicidal or homicidal ideations. ASSESSMENT: Encephalopathy. PLAN: 1. The patient will be continued on current medications. 2. We will continue to follow and readjust the medications. Dary Nixon M.D. DR: KAZ JOB#: [id number] CC:
--- NOTE | 2017-09-29 17:54 | Diagnostic Imaging Report ---
Indication: Abnormal liver function tests Technique: Tejeda-scale and duplex images of the upper abdomen were obtained Comparison: 09/19/2017. Reference also made to nuclear medicine hepatobiliary scan dated 09/23/2017 Findings: There is trace ascites fluid. Gallbladder more clearly demonstrates gallstones than it does on the prior study.. Gallbladder wall is thickened, measuring 5 mm thick, and there is some pericholecystic edema. This was also evident previously. Sonographic Judd's sign is negative. Common bile duct measures 7-10 mm in diameter. No intrahepatic biliary ductal dilatation. Liver demonstrates slightly coarsened echogenicity and equivocal slight surface micronodularity. No focal abnormality Portal vein and hepatic veins are patent. Pancreas is unremarkable. Spleen is unremarkable. Left kidney measures 9.2 cm in length. Right kidney measures 10 cm length. Both kidneys demonstrate normal echogenicity. There is no hydronephrosis. Left kidney demonstrates multiple cysts, also demonstrated previously . Non-aneurysmal abdominal aorta . Bilateral pleural effusions are noted Impression: Cholelithiasis, better demonstrated than on prior exam. Thickened gallbladder wall could indicate acute cholecystitis. However, gallbladder wall thickening also evident on prior study of 09/19/2017, after which a hepatobiliary scan was negative, so suspect this is more likely due to hemodynamic derangements given presence of ascites and pleural fluid. Extrahepatic biliary ductal dilatation, equivocally slightly increased from 09/19/2017. Downstream obstruction not excludable Coarsened hepatic echotexture, consistent with hepatocellular disease, nonspecific as regards etiology. Equivocal hepatic surface micronodularity, could indicate early cirrhotic changes. Incidental finding left renal cysts
[2017-09-29] MEDS: Miralax 17gm pkt ORAL SCH (20:59)
[2017-09-29] MEDS: Amikacin 500 MG in NS 110 ML IV SCH (23:16)
--- NOTE | 2017-09-29 23:54 | General Progress Note ---
Assessment/Plan Assessment/Plan #. Leukocytosis likely related to underlying pneumonia infection. --> On antibiotic treatment. --> Wbc count improved from yesterday. --> Cont to monitor and trend daily. #. Thrombocytopenia, severe and progressive, acute onset, likely secondary to underlying infection, aspiration pneumonia versus HIT. --> Antibody test is pending. Heparin has been discontinued on 09/18/2017. --> Duplex of the lower extremities is negative, therefore less likely HIT and other causes are more likely such as underlying infection. --> Platelets goal >20k, transfuse if necessary. --> Has Remained low past few days. On antibiotic treatment. --> Improved slightly today. #. Anemia due to underlying chronic disease. Continue to closely monitor. --> Hemoglobin goal is above 7. --> Transfuse as necessary --> Anemia workup has been reviewed at this point. --> hemoglobin levels downtrended from yesterday. Pending Blood transfusion. #. Community-acquired pneumonia versus hospital-acquired. --> The patient on broad-spectrum antibiotics. --> Improved. --> Urine culture growing E. coli. Continue to closely monitor. #. Transaminitis. She has been seen by GI Service. Continue to closely monitor. #. Low-grade fever. Closely observe. #. Encephalopathy. Subjective Date patient seen: Sep 29, 2017 Constitutional: Denies: no symptoms, chills, diaphoresis, fever, malaise, weakness, other HEENT: Denies: no symptoms, eye pain, blurred vision, tearing, double vision, ear pain, ear discharge, nose pain, nose congestion, throat pain, throat swelling, mouth pain, mouth swelling, other Cardiovascular: Denies: no symptoms, chest pain, edema, irregular heart rate, lightheadedness, palpitations, syncope, other Respiratory: Denies: no symptoms, cough, orthopnea, shortness of breath, SOB with excertion, SOB at rest, sputum, stridor, wheezing, other Gastrointestinal/Abdominal: Denies: no symptoms, abdomen distended, abdominal pain, black stools, tarry stools, blood in stool, constipated, diarrhea, difficulty swallowing, nausea, poor appetite, poor fluid intake, rectal bleeding , vomiting, other Genitourinary: Denies: no symptoms, burning, discharge, frequency, flank pain, hematuria, incontinence, pain, urgency, other 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: Denies: no symptoms, anxiety, depressed, emotional problems, headache, numbness, paresthesia, pre-existing deficit, seizure, tingling, tremors, weakness, other Hematologic/Lymphatic: Reports: anemia Allergies: Coded Allergies: No Known Allergies (Verified , 11/18/08) Subjective Leukocytosis improved. Hemoglobin low, pending blood transfusion. Objective Last 24 Hour Vital Signs Date Time Temp Pulse Resp B/P (MAP) Pulse Ox O2 Delivery O2 Flow Rate FiO2 09/29/17 23:28 93 28 60 09/29/17 23:00 93 28 122/55 95 Mechanical Ventilator 60 09/29/17 22:08 93 18 60 09/29/17 22:05 96 127/63 09/29/17 22:00 91 28 131/63 95 Mechanical Ventilator 60 09/29/17 21:00 95 28 127/63 95 Mechanical Ventilator 60 09/29/17 20:36 100 26 60 09/29/17 20:00 60 09/29/17 20:00 98.9 95 28 126/58 97 Mechanical Ventilator 60 98.9 09/29/17 19:00 101 28 122/65 95 Mechanical Ventilator 60 09/29/17 18:00 94 30 129/66 95 Mechanical Ventilator 60 09/29/17 17:25 99 24 60 09/29/17 16:00 98.8 102 25 122/57 97 Mechanical Ventilator 60 98.8 09/29/17 16:00 60 09/29/17 16:00 94 09/29/17 15:25 106 27 60 09/29/17 15:00 101 24 128/63 97 Mechanical Ventilator 60 09/29/17 14:00 106 125/55 09/29/17 14:00 101 16 126/61 97 Mechanical Ventilator 60 09/29/17 13:14 106 27 60 09/29/17 13:00 106 25 129/66 97 Mechanical Ventilator 60 09/29/17 12:00 105 09/29/17 12:00 60 09/29/17 12:00 99.0 104 24 125/55 99 Mechanical Ventilator 60 99.0 09/29/17 11:00 101 25 120/59 97 Mechanical Ventilator 60 09/29/17 10:45 107 27 60 09/29/17 10:00 103 22 132/61 98 Mechanical Ventilator 60 09/29/17 09:21 99 26 60 09/29/17 09:00 101 25 118/60 96 Mechanical Ventilator 60 09/29/17 08:00 60 09/29/17 08:00 107 09/29/17 08:00 99.0 103 25 111/53 97 Mechanical Ventilator 60 99.0 09/29/17 07:25 100 24 60 09/29/17 07:00 101 25 115/57 97 Mechanical Ventilator 70 09/29/17 06:10 104 129/59 09/29/17 06:00 103 25 129/59 97 Mechanical Ventilator 70 09/29/17 05:06 105 23 60 09/29/17 05:00 104 32 130/57 96 Mechanical Ventilator 70 09/29/17 04:00 70 09/29/17 04:00 99.0 103 25 115/53 97 Mechanical Ventilator 70 99.0 09/29/17 04:00 103 09/29/17 03:00 99 25 120/50 97 Mechanical Ventilator 70 09/29/17 02:41 110 25 60 09/29/17 02:00 99 24 116/48 97 Mechanical Ventilator 70 09/29/17 01:06 107 25 60 09/29/17 01:00 118 24 116/48 97 Mechanical Ventilator 70 09/29/17 00:00 70 09/29/17 00:00 124 51 124/51 97 Mechanical Ventilator 70 Intake and Output 09/28/17 09/29/17 19:00 07:00 Intake Total 1132 ml 1060 ml Output Total 2345 ml 765 ml Balance -1213 ml 295 ml Intake Free Water 400 ml 400 ml IV Total 112 ml 500 ml Tube Feeding 620 ml 160 ml Output Urine Total 2345 ml 765 ml # Bowel Movements 1 Laboratory Tests 09/29/17 00:40: Prothrombin Time 15.7H, Prothromb Time International Ratio 1.5H, Activated Partial Thromboplast Time 33 09/29/17 04:30: White Blood Count 11.2H, Red Blood Count 2.21L, Hemoglobin 7.0L, Hematocrit 23.2L, Mean Corpuscular Volume 105H, Mean Corpuscular Hemoglobin 31.6H, Mean Corpuscular Hemoglobin Concent 30.1L, Red Cell Distribution Width 22.9H, Platelet Count 52L, Mean Platelet Volume 11.3H, Neutrophils (%) (Auto) , Lymphocytes (%) (Auto) , Monocytes (%) (Auto) , Eosinophils (%) (Auto) , Basophils (%) (Auto) , Differential Total Cells Counted 100, Neutrophils % ( Manual) 83H, Lymphocytes % (Manual) 12L, Monocytes % (Manual) 5, Eosinophils % ( Manual) 0, Basophils % (Manual) 0, Band Neutrophils 0, Platelet Estimate DecreasedL, Platelet Morphology Normal, Polychromasia 1+, Hypochromasia 1+, Anisocytosis 2+, Macrocytosis 1+, Sodium Level 156H, Potassium Level 3.8, Chloride Level 121H, Carbon Dioxide Level 31, Anion Gap 4L, Blood Urea Nitrogen 62H, Creatinine 1.1, Estimat Glomerular Filtration Rate , Glucose Level 120H, Calcium Level 9.1, Phosphorus Level 4.5, Magnesium Level 2.3, Total Bilirubin 2.1H, Direct Bilirubin 1.1H, Aspartate Amino Transf (AST/SGOT) 35, Alanine Aminotransferase (ALT/SGPT) 14, Alkaline Phosphatase 812H, Total Protein 5.4L, Albumin 2.1L, Globulin 3.3, Albumin/Globulin Ratio 0.6L 09/29/17 09:05: White Blood Count 11.8H, Red Blood Count 2.22L, Hemoglobin 7.0L, Hematocrit 23.3L, Mean Corpuscular Volume 105H, Mean Corpuscular Hemoglobin 31.5H, Mean Corpuscular Hemoglobin Concent 29.9L, Red Cell Distribution Width 23.3H, Platelet Count 59L, Mean Platelet Volume 12.2H, Neutrophils (%) (Auto) , Lymphocytes (%) (Auto) , Monocytes (%) (Auto) , Eosinophils (%) (Auto) , Basophils (%) (Auto) , Differential Total Cells Counted 100, Neutrophils % ( Manual) 86H, Lymphocytes % (Manual) 4L, Monocytes % (Manual) 9, Eosinophils % ( Manual) 1, Basophils % (Manual) 0, Band Neutrophils 0, Platelet Estimate DecreasedL, Platelet Morphology Normal, Polychromasia 2+, Hypochromasia 1+, Anisocytosis 2+, Macrocytosis 1+ 09/29/17 10:05: Arterial Blood pH 7.507H, Arterial Blood Partial Pressure CO2 37.8, Arterial Blood Partial Pressure O2 111.7H, Arterial Blood HCO3 29.3H, Arterial Blood Oxygen Saturation 97.3, Arterial Blood Base Excess 5.8, Luis A Test Positive Height (Feet): 5 Height (Inches): 0.00 Weight (Pounds): 110 General Appearance: confused Respiratory/Chest: decreased breath sounds Abdomen: soft Johnny Sinha MD Sep 29, 2017 23:54
[2017-09-30] VITALS (25 sets, daily range): BP systolic 19–130; BP diastolic 42–65
[2017-09-30 05:26] LABS: HEMATOCRIT 33.4 % (37.0-47.0); MEAN CORPUSCULAR VOLUME 98 FL (80-99); PLATELET COUNT 80 K/UL (150-450); RED BLOOD COUNT 3.43 M/UL (4.20-5.40); RED CELL DISTRIBUTION WIDTH 22.2 % (11.6-14.8); WHITE BLOOD COUNT 12.5 K/UL (4.8-10.8)
[2017-09-30] MEDS: D5 1/2NS 1,000 ML IV SCH ×2 (05:34→15:00)
[2017-09-30] MEDS: dilTIAZem HCl 30mg tab NG SCH ×3 (05:35→23:01)
[2017-09-30] MEDS: metroNIDAZOLE 500mg tab ORAL SCH (05:35)
[2017-09-30] MEDS: NovoLOG Insulin Flexpen SUBQ SCH ×3 (05:36→18:00)
[2017-09-30 05:59] LABS: ALANINE AMINOTRANSFERASE 16 U/L (12-78); ALBUMIN 1.9 G/DL (3.4-5.0); ALBUMIN/GLOBULIN RATIO 0.5 (1.0-2.7); ALKALINE PHOSPHATASE 621 U/L (46-116); ANION GAP 6 mmol/L (5-15); ASPARTATE AMINO TRANSFERASE 32 U/L (15-37); BILIRUBIN,TOTAL 3.6 MG/DL (0.2-1.0); BLOOD UREA NITROGEN 47 mg/dL (7-18); CALCIUM 8.4 MG/DL (8.5-10.1); CARBON DIOXIDE 29 MMOL/L (21-32); CHLORIDE 117 MMOL/L (98-107); PHOSPHORUS 3.6 MG/DL (2.5-4.9); POTASSIUM 3.3 MMOL/L (3.5-5.1); SODIUM 152 MMOL/L (136-145)
[2017-09-30 06:12] LABS: BILIRUBIN,DIRECT 1.9 MG/DL (0.0-0.3)
[2017-09-30] MEDS: Ketotifen Fumarate 0.035% 5ml BOTH EYES SCH (09:00)
--- NOTE | 2017-09-30 10:31 | Infectious Diseases Prog Note ---
Assessment/Plan Assessment/Plan The patient is a 76-year-old female w Fever, SP Leukocytosis , improving- ?cholangitis -Cdiff neg -09/22 sp cx C.a lbicans, Bcx NTD -u/a wbc 10-15, nit neg, leuk +2; ucx >100k C. albicans -Fungal sp cx p Community-acquired vs healthcare-associated pneumonia (the patient has been recently hospitalized in [facility]). -now ARDS- r/o fungal PNA -CXR 09/29: - cxray 09/26 : no changes -CT chest 09/23: Diffuse extensive pulmonary parenchymal disease, with dense consolidation interspersed with groundglass opacities. Appearance nonspecific, possibilities include pulmonary edema, pneumonia, ARDS, hemorrhage. Bilateral pleural effusions, left greater than right. Diffuse edema of the subcutaneous fat, Multiple small thyroid nodules. All apparently under 1 cm, no further follow-up necessary. Degenerative changes of the shoulders 09/19 xray : Unchanged diffuse interstitial and airspace edema, -CrAg serum, U legionell ag neg; Asp ag, Cocci, fungitell p Probable influenza despite of negative influenza screening test, s/p Rx Abnormal liver function tests, ALP>>> AST -?cholangitis, obstruction on CBD; AST/ALT normal now, ALP improving -Abd US 09/29: Cholelithiasis, better demonstrated than on prior exam. Thickened gallbladder wall could indicate acute cholecystitis. However, gallbladder wall thickening also evident on prior study of 09/19/2017, after which a hepatobiliary scan was negative, so suspect this is more likely due to hemodynamic derangements given presence of ascites and pleural fluid. Extrahepatic biliary ductal dilatation, equivocally slightly increased from 2017. Downstream obstruction not excludable. Coarsened hepatic echotexture, consistent with hepatocellular disease, nonspecific as regards etiology. Equivocal hepatic surface micronodularity, could indicate early cirrhotic changes. -HIDA scan: Negative for evidence of cystic duct obstruction/acute cholecystitis. Common bile duct is demonstrated be patent, but emptying into the duodenum is delayed, not seen until 2 hours. Significance of this is uncertain. MRCP or CT scanning may be useful to clarify -CT abd/p 09/23: Evidence of anasarca, with diffuse edema subcutaneous and mesenteric fat, bilateral pleural effusions, possible pulmonary edema, trace ascites. Densities within the gallbladder, probably reflecting tiny gallstones, although these are not identifiable on recent ultrasound. Gallbladder wall edema is probably a manifestation of anasarca, as recent hepatobiliary scan was negative for acute cholecystitis. Old ununited fracture deformities of the right pelvis. Bilateral chronic appearing hip dislocations Ultrasound of the abdomen : Gallbladder sludge. No definite stones. 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 -R/o HIT. Abx and protonix could be also be contributors. VDRF / ARDS HTN GERD History of auditory hallucination. Depression. Anemia. Rheumatoid arthritis. History of gastritis. PLAN: -Continue Amikacin # 8/10(abx d#06/26) and flagyl # 8/10 for possible cholangitis and add IV Micafungin for fungal coverage 09/25 sp Fluconazole #3 (held due to rise ALP) 09/23 SP Meropenem #5, PO Vanco #2 09/21 SP tamiflu #10 -f/u Asp ag, fungitell, Cocci ab, fungal sp cx Monitor CBC.; Trend WBC Monitor BMP.; Trend LFTs Monitor chest x-ray -GI, heme onc f/u Subjective Allergies: Coded Allergies: No Known Allergies (Verified , 11/18/08) Subjective afebrile in 36 hrs cx neg leukocytosis improved Objective Vital Signs Last 24 Hour Vital Signs Date Time Temp Pulse Resp B/P (MAP) Pulse Ox O2 Delivery O2 Flow Rate FiO2 09/30/17 09:00 89 27 113/63 96 Mechanical Ventilator 60 09/30/17 08:46 87 27 60 09/30/17 08:00 99.0 85 28 118/60 98 Mechanical Ventilator 60 99.0 09/30/17 08:00 80 09/30/17 08:00 60 09/30/17 07:00 95 27 122/56 99 Mechanical Ventilator 60 09/30/17 06:55 80 25 60 09/30/17 06:00 88 26 108/52 97 Mechanical Ventilator 60 09/30/17 05:50 85 30 60 09/30/17 05:35 85 118/57 09/30/17 05:00 89 29 118/42 98 Mechanical Ventilator 60 2018 04:00 99.1 95 30 118/57 98 Mechanical Ventilator 60 99.1 18 04:00 92 18 04:00 60 18 03:00 93 29 19/54 98 Mechanical Ventilator 60 20/18 02:37 89 30 60 /20/18 02:00 92 29 127/58 98 Mechanical Ventilator 60 09/30/18 01:12 86 30 60 20/18 01:00 93 28 112/58 95 Mechanical Ventilator 60 20/18 00:00 93 18 00:00 98.6 95 30 117/58 98 Mechanical Ventilator 60 98.6 18 00:00 60 18 23:28 93 28 60 09/29/18 23:00 93 28 122/55 95 Mechanical Ventilator 60 //18 22:08 93 18 60 09/29/18 22:05 96 127/63 3/18 22:00 91 28 131/63 95 Mechanical Ventilator 60 18 21:00 95 28 127/63 95 Mechanical Ventilator 60 09/29/18 20:36 100 26 60 /19/18 20:00 60 19/18 20:00 98.9 95 28 126/58 97 Mechanical Ventilator 60 98.9 09/29/18 20:00 84 09/29/18 19:00 101 28 122/65 95 Mechanical Ventilator 60 //18 18:00 94 30 129/66 95 Mechanical Ventilator 60 18 17:25 99 24 60 09/29/18 16:00 98.8 102 25 122/57 97 Mechanical Ventilator 60 98.8 19/18 16:00 60 19/18 16:00 94 19/18 15:25 106 27 60 3/19/18 15:00 101 24 128/63 97 Mechanical Ventilator 60 3/19/18 14:00 106 125/55 3/18 14:00 101 16 126/61 97 Mechanical Ventilator 60 3/19/18 13:14 106 27 60 3/19/18 13:00 106 25 129/66 97 Mechanical Ventilator 60 /19/18 12:00 105 19/18 12:00 60 09/29/18 12:00 99.0 104 24 125/55 99 Mechanical Ventilator 60 99.0 09/29/17 11:00 101 25 120/59 97 Mechanical Ventilator 60 09/29/17 10:45 107 27 60 Height (Feet): 5 Height (Inches): 0.00 Weight (Pounds): 113 Objective General Appearance: lethargic, thin EENT: normal ENT inspection Neck: non-tender, normal alignment, supple Cardiovascular: normal peripheral pulses, normal rate, regular rhythm, no gallop/murmur, no JVD Respiratory/Chest: Mechanical vent; respiratory distress, crackles/rales, rhonchi - bilaterally, expiratory wheezing Abdomen: normal bowel sounds, non tender, soft, no organomegaly, no mass Skin: normal pigmentation, warm/dry Laboratory Tests Test 09/30/17 04:35 09/30/17 08:50 White Blood Count 12.5 K/UL (4.8-10.8) H Red Blood Count 3.43 M/UL (4.20-5.40) L Hemoglobin 11.0 G/DL (12.0-16.0) #L Hematocrit 33.4 % (37.0-47.0) #L Mean Corpuscular Volume 98 FL (80-99) Mean Corpuscular Hemoglobin 32.1 PG (27.0-31.0) H Mean Corpuscular Hemoglobin Concent 32.9 G/DL (32.0-36.0) Red Cell Distribution Width 22.2 % (11.6-14.8) H Platelet Count 80 K/UL (150-450) L Mean Platelet Volume 11.7 FL (6.5-10.1) H Neutrophils (%) (Auto) % (45.0-75.0) Lymphocytes (%) (Auto) % (20.0-45.0) Monocytes (%) (Auto) % (1.0-10.0) Eosinophils (%) (Auto) % (0.0-3.0) Basophils (%) (Auto) % (0.0-2.0) Differential Total Cells Counted 100 Neutrophils % (Manual) 90 % (45-75) H Lymphocytes % (Manual) 4 % (20-45) L Monocytes % (Manual) 5 % (1-10) Eosinophils % (Manual) 1 % (0-3) Basophils % (Manual) 0 % (0-2) Band Neutrophils 0 % (0-8) Platelet Estimate Decreased L Platelet Morphology Normal Polychromasia 2+ Anisocytosis 2+ Sodium Level 152 MMOL/L (136-145) H Potassium Level 3.3 MMOL/L (3.5-5.1) L Chloride Level 117 MMOL/L (98-107) H Carbon Dioxide Level 29 MMOL/L (21-32) Anion Gap 6 mmol/L (5-15) Blood Urea Nitrogen 47 mg/dL (7-18) H Creatinine 1.0 MG/DL (0.55-1.30) Estimat Glomerular Filtration Rate mL/min (>60) Glucose Level 145 MG/DL (74-106) H Calcium Level 8.4 MG/DL (8.5-10.1) L Phosphorus Level 3.6 MG/DL (2.5-4.9) Magnesium Level 2.0 MG/DL (1.8-2.4) Total Bilirubin 3.6 MG/DL (0.2-1.0) H Direct Bilirubin 1.9 MG/DL (0.0-0.3) H Aspartate Amino Transf (AST/SGOT) 32 U/L (15-37) Alanine Aminotransferase (ALT/SGPT) 16 U/L (12-78) Alkaline Phosphatase 621 U/L (46-116) H Total Protein 5.5 G/DL (6.4-8.2) L Albumin 1.9 G/DL (3.4-5.0) L Globulin 3.6 g/dL Albumin/Globulin Ratio 0.5 (1.0-2.7) L Arterial Blood pH 7.431 (7.350-7.450) Arterial Blood Partial Pressure CO2 43.7 mmHg (35.0-45.0) Arterial Blood Partial Pressure O2 110.5 mmHg (75.0-100.0) H Arterial Blood HCO3 28.4 mmol/L (22.0-26.0) H Arterial Blood Oxygen Saturation 97.5 % (92.0-98.0) Arterial Blood Base Excess 3.7 Luis A Test Positive Current Medications Medications (Trade) Dose Ordered Sig/Hermes Route PRN Reason Start Time Stop Time Status Last Admin Dose Admin Acetaminophen (Tylenol) 650 mg EVERY 6 HOURS PRN NG Fever/Headache/Mild Pain 09/13/17 20:45 10/13/17 20:44 09/27/17 16:49 Albuterol/ Ipratropium (Albuterol/ Ipratropium) 3 ml Q4H PRN HHN Shortness of Breath 09/28/17 10:15 10/03/17 10:14 09/28/17 13:00 Amikacin Protocol (Amikacin pharmacy to dose) 1 ea DAILY PRN MISC Per rx protocol 09/23/17 11:45 10/23/17 11:44 Amikacin Sulfate 500 mg/Sodium Chloride 112 ml @ 112 mls/hr Q36H IV 09/25/17 11:30 10/02/17 11:29 09/29/17 23:16 Clonidine HCl (Catapres Tab) 0.1 mg Q4H PRN ORAL SBP>160 UNRELIEVED BY HYDRALAZ 09/16/17 16:45 10/15/17 16:59 Dextrose (Dextrose 50%) STAT PRN IV Hypoglycemia 09/13/17 15:00 10/13/17 14:59 Dextrose/Sodium Chloride 1,000 ml @ 100 mls/hr Q10H IV 09/28/17 23:00 10/28/17 22:59 09/30/17 05:34 Diltiazem HCl (Cardizem) 30 mg EVERY 8 HOURS NG 09/18/17 22:00 10/18/17 21:59 09/30/17 05:35 Insulin Aspart (NovoLOG) EVERY 6 HOURS SUBQ 09/17/17 12:00 10/17/17 11:59 09/30/17 05:36 Ketotifen Fumarate (Zatidor) 1 drop DAILY BOTH EYES 09/26/17 09:00 10/25/17 08:59 09/30/17 09:00 Metronidazole (Flagyl) 500 mg Q8HR ORAL 09/23/17 14:00 09/30/17 13:59 09/30/17 05:35 Pantoprazole (Protonix) 40 mg DAILY ORAL 09/28/17 09:00 10/28/17 08:59 09/30/17 10:08 Polyethylene Glycol (Miralax) 17 gm BEDTIME ORAL 09/14/17 21:00 10/14/17 20:59 09/28/17 21:18 Madelyn Frey M.D. Sep 30, 2017 10:31
--- NOTE | 2017-09-30 10:34 | Pulmonolgy Critical Care Note ---
Critical Care - Asmt/Plan Problems: (1) ARDS (adult respiratory distress syndrome) (2) Aspiration pneumonia (3) Anemia (4) Thrombocytopenia (5) Diabetes mellitus (6) Protein-calorie malnutrition, severe Assessment/Plan: improving overall, still on fio2 50%. Once the fio2 is less than 40 we start weaning. Cardiac: continue to monitor HR/BP Renal: F/U I&O, keep IV fluid Infectious Disease: check cultures Gastrointestinal: hold feedings Endocrine: monitor blood sugar, check TSH Neurologic: PRN Ativan, PRN Morphine Affect: PRN ativan Prophylaxis: Protonix, Heparin Time Spent (Minutes): 40 Notes Reviewed: cardio, renal Discussed with: nurses, consultants Critical Care - Objective Last 24 Hour Vital Signs Date Time Temp Pulse Resp B/P (MAP) Pulse Ox O2 Delivery O2 Flow Rate FiO2 09/30/17 09:00 89 27 113/63 96 Mechanical Ventilator 60 09/30/17 08:46 87 27 60 09/30/17 08:00 99.0 85 28 118/60 98 Mechanical Ventilator 60 99.0 09/30/17 08:00 80 09/30/17 08:00 60 09/30/17 07:00 95 27 122/56 99 Mechanical Ventilator 60 09/30/17 06:55 80 25 60 09/30/17 06:00 88 26 108/52 97 Mechanical Ventilator 60 09/30/17 05:50 85 30 60 09/30/17 05:35 85 118/57 09/30/17 05:00 89 29 118/42 98 Mechanical Ventilator 60 09/30/17 04:00 99.1 95 30 118/57 98 Mechanical Ventilator 60 99.1 09/30/17 04:00 92 09/30/17 04:00 60 09/30/17 03:00 93 29 19/54 98 Mechanical Ventilator 60 09/30/17 02:37 89 30 60 09/30/17 02:00 92 29 127/58 98 Mechanical Ventilator 60 09/30/17 01:12 86 30 60 09/30/17 01:00 93 28 112/58 95 Mechanical Ventilator 60 09/30/17 00:00 93 09/30/17 00:00 98.6 95 30 117/58 98 Mechanical Ventilator 60 98.6 09/30/17 00:00 60 09/29/17 23:28 93 28 60 09/29/17 23:00 93 28 122/55 95 Mechanical Ventilator 60 09/29/17 22:08 93 18 60 09/29/17 22:05 96 127/63 09/29/17 22:00 91 28 131/63 95 Mechanical Ventilator 60 09/29/17 21:00 95 28 127/63 95 Mechanical Ventilator 60 09/29/17 20:36 100 26 60 18 20:00 60 09/29/17 20:00 98.9 95 28 126/58 97 Mechanical Ventilator 60 98.9 09/29/17 20:00 84 09/29/17 19:00 101 28 122/65 95 Mechanical Ventilator 60 09/29/17 18:00 94 30 129/66 95 Mechanical Ventilator 60 09/29/17 17:25 99 24 60 09/29/17 16:00 98.8 102 25 122/57 97 Mechanical Ventilator 60 98.8 09/29/17 16:00 60 09/29/17 16:00 94 09/29/17 15:25 106 27 60 09/29/17 15:00 101 24 128/63 97 Mechanical Ventilator 60 09/29/17 14:00 106 125/55 09/29/17 14:00 101 16 126/61 97 Mechanical Ventilator 60 09/29/17 13:14 106 27 60 09/29/17 13:00 106 25 129/66 97 Mechanical Ventilator 60 09/29/17 12:00 105 09/29/17 12:00 60 09/29/17 12:00 99.0 104 24 125/55 99 Mechanical Ventilator 60 99.0 09/29/17 11:00 101 25 120/59 97 Mechanical Ventilator 60 09/29/17 10:45 107 27 60 Status: sedated Condition: critical HEENT: atraumatic Neck: full ROM Heart: HR/BP stable, HR/BP unstable Abdomen: soft, non-tender, active bowel sounds Extremities: no C/C/E, edema Decubiti: location, stage Accucheck: 139 Critical Care - Subjective ROS Limited/Unobtainable: No ICU Day: 19 Intubation Day: 19 Condition: critical EKG Rhythm: Sinus Rhythm FI02: 60 Vent Support Breath Rate: 18 Vent Support Mode: AC Vent Tidal Volume: 500 Sputum Amount: Moderate PEEP: 5.0 PIP: 51 Tube Feeding Amount: 0 I&O: Intake and Output 09/29/17 09/30/17 19:00 07:00 Intake Total 1000 ml 1260 ml Output Total 640 ml 665 ml Balance 360 ml 595 ml IV Total 1000 ml 1200 ml Tube Feeding 0 ml 0 ml Other 60 ml Output Urine Total 640 ml 665 ml # Bowel Movements 1 1 CXR: slightly worse ET-Tube: 7.5 ET Position: 20 Labs: Laboratory Tests Test 09/30/17 04:35 09/30/17 08:50 White Blood Count 12.5 K/UL (4.8-10.8) H Red Blood Count 3.43 M/UL (4.20-5.40) L Hemoglobin 11.0 G/DL (12.0-16.0) #L Hematocrit 33.4 % (37.0-47.0) #L Mean Corpuscular Volume 98 FL (80-99) Mean Corpuscular Hemoglobin 32.1 PG (27.0-31.0) H Mean Corpuscular Hemoglobin Concent 32.9 G/DL (32.0-36.0) Red Cell Distribution Width 22.2 % (11.6-14.8) H Platelet Count 80 K/UL (150-450) L Mean Platelet Volume 11.7 FL (6.5-10.1) H Neutrophils (%) (Auto) % (45.0-75.0) Lymphocytes (%) (Auto) % (20.0-45.0) Monocytes (%) (Auto) % (1.0-10.0) Eosinophils (%) (Auto) % (0.0-3.0) Basophils (%) (Auto) % (0.0-2.0) Differential Total Cells Counted 100 Neutrophils % (Manual) 90 % (45-75) H Lymphocytes % (Manual) 4 % (20-45) L Monocytes % (Manual) 5 % (1-10) Eosinophils % (Manual) 1 % (0-3) Basophils % (Manual) 0 % (0-2) Band Neutrophils 0 % (0-8) Platelet Estimate Decreased L Platelet Morphology Normal Polychromasia 2+ Anisocytosis 2+ Sodium Level 152 MMOL/L (136-145) H Potassium Level 3.3 MMOL/L (3.5-5.1) L Chloride Level 117 MMOL/L (98-107) H Carbon Dioxide Level 29 MMOL/L (21-32) Anion Gap 6 mmol/L (5-15) Blood Urea Nitrogen 47 mg/dL (7-18) H Creatinine 1.0 MG/DL (0.55-1.30) Estimat Glomerular Filtration Rate mL/min (>60) Glucose Level 145 MG/DL (74-106) H Calcium Level 8.4 MG/DL (8.5-10.1) L Phosphorus Level 3.6 MG/DL (2.5-4.9) Magnesium Level 2.0 MG/DL (1.8-2.4) Total Bilirubin 3.6 MG/DL (0.2-1.0) H Direct Bilirubin 1.9 MG/DL (0.0-0.3) H Aspartate Amino Transf (AST/SGOT) 32 U/L (15-37) Alanine Aminotransferase (ALT/SGPT) 16 U/L (12-78) Alkaline Phosphatase 621 U/L (46-116) H Total Protein 5.5 G/DL (6.4-8.2) L Albumin 1.9 G/DL (3.4-5.0) L Globulin 3.6 g/dL Albumin/Globulin Ratio 0.5 (1.0-2.7) L Arterial Blood pH 7.431 (7.350-7.450) Arterial Blood Partial Pressure CO2 43.7 mmHg (35.0-45.0) Arterial Blood Partial Pressure O2 110.5 mmHg (75.0-100.0) H Arterial Blood HCO3 28.4 mmol/L (22.0-26.0) H Arterial Blood Oxygen Saturation 97.5 % (92.0-98.0) Arterial Blood Base Excess 3.7 Luis A Test Positive Tayler Liu MD Sep 30, 2017 10:34
--- NOTE | 2017-09-30 11:18 | Anethesia Preoperative Eval ---
Anesthesia Pre-op PMH/ROS General Date of Evaluation: Sep 30, 2017 Anesthesiologist: Yobani ASA Score: ASA 4 Mallampati Score Class I : Soft palate, uvula, fauces, pillars visible Class II: Soft palate, uvula, fauces visible Class III: Soft palate, base of uvula visible Class IV: Only hard plate visible Mallampati Classification: Class III Surgeon: Isabelle Diagnosis: Bile duct stone and biliary duct dilation Surgical Procedure: EUS Anesthesia History: none Family History: no anesthesia problems Allergies: Coded Allergies: No Known Allergies (Verified , 11/18/08) Medications: see eMAR Past Medical History Cardiovascular: Reports: HTN, Denies: CAD, OR, valve dz, arrhythmia, other Pulmonary: Reports: ARTEMIO, Denies: asthma, COPD, other Gastrointestinal/Genitourinary: Reports: GERD, other - gastritis/esophagitis, Denies: CRI, ESRD 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: Denies: dementia, CVA, depression/anxiety, TIA, other Endocrine: Reports: DM, Denies: hypothyroidism, steroids, other HEENT: Denies: cataract (L), cataract (R), glaucoma, [place] (L), [place] (R), other Hematology/Immune: Reports: anemia, Denies: DVT, bleeding disorder, other Musculoskeletal/Integumentary: Reports: OA, Denies: RA, DJD, DDD, edema, other PSxH Narrative: Bilateral cataract sx Anesthesia Pre-op Phys. Exam Physician Exam Last Vital Signs Date Time Temp Pulse Resp B/P (MAP) Pulse Ox O2 Delivery O2 Flow Rate FiO2 09/30/17 09:00 89 27 113/63 96 Mechanical Ventilator 60 09/30/17 08:00 99.0 99.0 Constitutional: NAD Cardiovascular: RRR Respiratory: CTA Airway Exam Mallampati Score: Class III MO: limited ROM: limited Anesthesia Pre-op A/P Labs Hematology Test 09/30/17 04:35 White Blood Count 12.5 K/UL (4.8-10.8) H Red Blood Count 3.43 M/UL (4.20-5.40) L Hemoglobin 11.0 G/DL (12.0-16.0) #L Hematocrit 33.4 % (37.0-47.0) #L Mean Corpuscular Volume 98 FL (80-99) Mean Corpuscular Hemoglobin 32.1 PG (27.0-31.0) H Mean Corpuscular Hemoglobin Concent 32.9 G/DL (32.0-36.0) Red Cell Distribution Width 22.2 % (11.6-14.8) H Platelet Count 80 K/UL (150-450) L Mean Platelet Volume 11.7 FL (6.5-10.1) H Neutrophils (%) (Auto) % (45.0-75.0) Lymphocytes (%) (Auto) % (20.0-45.0) Monocytes (%) (Auto) % (1.0-10.0) Eosinophils (%) (Auto) % (0.0-3.0) Basophils (%) (Auto) % (0.0-2.0) Differential Total Cells Counted 100 Neutrophils % (Manual) 90 % (45-75) H Lymphocytes % (Manual) 4 % (20-45) L Monocytes % (Manual) 5 % (1-10) Eosinophils % (Manual) 1 % (0-3) Basophils % (Manual) 0 % (0-2) Band Neutrophils 0 % (0-8) Platelet Estimate Decreased L Platelet Morphology Normal Polychromasia 2+ Anisocytosis 2+ Chemistry Test 09/30/17 04:35 Sodium Level 152 MMOL/L (136-145) H Potassium Level 3.3 MMOL/L (3.5-5.1) L Chloride Level 117 MMOL/L (98-107) H Carbon Dioxide Level 29 MMOL/L (21-32) Anion Gap 6 mmol/L (5-15) Blood Urea Nitrogen 47 mg/dL (7-18) H Creatinine 1.0 MG/DL (0.55-1.30) Estimat Glomerular Filtration Rate mL/min (>60) Glucose Level 145 MG/DL (74-106) H Calcium Level 8.4 MG/DL (8.5-10.1) L Phosphorus Level 3.6 MG/DL (2.5-4.9) Magnesium Level 2.0 MG/DL (1.8-2.4) Total Bilirubin 3.6 MG/DL (0.2-1.0) H Direct Bilirubin 1.9 MG/DL (0.0-0.3) H Aspartate Amino Transf (AST/SGOT) 32 U/L (15-37) Alanine Aminotransferase (ALT/SGPT) 16 U/L (12-78) Alkaline Phosphatase 621 U/L (46-116) H Total Protein 5.5 G/DL (6.4-8.2) L Albumin 1.9 G/DL (3.4-5.0) L Globulin 3.6 g/dL Albumin/Globulin Ratio 0.5 (1.0-2.7) L Studies Pre-op Studies: EKG Risk Assessment & Plan Assessment: ASA IV Plan: GA Status Change Before Surgery: No Pre-Antibiotics Drug: N/A EVANS ALVARADO M.D. Sep 30, 2017 11:18
--- NOTE | 2017-09-30 11:29 | Diagnostic Imaging Report ---
Indication: Dyspnea Technique: One view of the chest Comparison: 09/29/2017 Findings: Stable satisfactory position of endotracheal and nasogastric tubes. Extensive bilateral diffuse interstitial and airspace opacities persist. Degenerative changes and probable posttraumatic changes of the right shoulder again demonstrated. Impression: Unchanged, over one day, findings as above.
[2017-09-30] MEDS: Micafungin 100 MG in NS 110 ML IVPB SCH (13:59)
[2017-09-30] MEDS ORDERED: NS 500ML IV ONE (14:15)
--- NOTE | 2017-09-30 14:26 | Pre-Procedure Note/Attestation ---
Pre-Procedure Note/Attestation Complete Prior to Procedure Planned Procedure: not applicable Procedure Narrative: eus Indications for Procedure Pre-Operative Diagnosis: elevated lfts Attestation I attest that I discussed the nature of the procedure; its benefits; risks and complications; and alternatives (and the risks and benefits of such alternatives ), prior to the procedure, with the patient (or the patient's legal insurance follow up representative). I attest that, if there was a reasonable possibility of needing a blood transfusion, the patient (or the patient's legal insurance follow up representative) was given the [facility] standardized written summary, pursuant to the Tristan Linette Blood Safety Act ([place] Health and Safety Code # 1645, as amended). I attest that I re-evaluated the patient just prior to the surgery and that there has been no change in the patient's H&P, except as documented below: KIT GONZALEZ Sep 30, 2017 14:25
--- NOTE | 2017-09-30 14:31 | Immediate Post-Op Evaluation ---
Immediate Post-Op Evalulation Immediate Post-Op Evalulation Procedure: EUS Date of Evaluation: Sep 30, 2017 Time of Evaluation: 15:04 IV Fluids: 200 Blood Products: 0 Estimated Blood Loss: 0 Urinary Output: 0 Blood Pressure Systolic: 120 Blood Pressure Diastolic: 65 Pulse Rate: 86 Respiratory Rate: 18 O2 Sat by Pulse Oximetry: 96 Temperature (Fahrenheit): 97.2 Pain Score (1-10): 0 Nausea: No Vomiting: No Complications 0 Patient Status: awake, reacts, ventilated, none Hydration Status: adequate Drug: N/A EVANS ALVARADO M.D. Sep 30, 2017 14:31
[2017-09-30] MEDS ORDERED: LR 1000ml 1,000 ML IVLG SCH (14:32)
--- NOTE | 2017-09-30 14:32 | 48 Hour Post Anesthesia Eval ---
Post Anesthesia Evaluation Procedure: EUS Date of Evaluation: Oct 01, 2017 Time of Evaluation: 06:45 Blood Pressure Systolic: 120 0: 69 Pulse Rate: 84 Respiratory Rate: 21 O2 Sat by Pulse Oximetry: 95 Airway: patent Nausea: No Vomiting: No Pain Intensity: 0 Hydration Status: adequate Cardiopulmonary Status: at baseline Mental Status/LOC: patient returned to baseline Post-Anesthesia Complications: 0 Follow-up care needed: N/A - further care as per primary team EVANS ALVARADO M.D. Sep 30, 2017 14:31
[2017-09-30] MEDS ORDERED: DiphenhydrAMINE 50mg/ml Inj IVP PRN (14:45)
--- NOTE | 2017-09-30 14:51 | Endoscopy Procedure Note ---
Endoscopy Procedure Note General Indication for Procedure: elevated LFTS Procedures Performed: ERCP Operative Findings/Diagnosis: EUS Specimen: none Pt Tolerated Procedure Well: Yes Anesthesia Anesthesiologist: lyle Anesthesia: MAC Inserted Devices Implant(s) used?: No GI Core Measures 50 yrs or older w/o bx or poly: Not Applicable 10yrs. F/U not recommended: Not Applicable KIT GONZALEZ Sep 30, 2017 14:51
--- NOTE | 2017-09-30 15:17 | Nephrology Progress Note ---
Assessment/Plan Problem List: (1) ARDS (adult respiratory distress syndrome) (2) Electrolyte imbalance (3) Thrombocytopenia Assessment Na 152 Platelets 17 K (1) ARDS (adult respiratory distress syndrome) (2) Aspiration pneumonia (3) Protein-calorie malnutrition, severe (4) Diabetes mellitus (5) Anemia , aplastic by history (6) DM (7) UTI (8) Electrolyte imbalance (9) HTN (10) Depression (11) RA . Plan doing poorly water via NGT Adjust BP meds K and Phos supplement as needed Monitor renal parameters and urine output avoid nephrotoxics per orders discussed with RN Left ventricular ejection fraction estimated to be 55 %. Subjective ROS Limited/Unobtainable: No Objective Objective Last 24 Hour Vital Signs Date Time Temp Pulse Resp B/P (MAP) Pulse Ox O2 Delivery O2 Flow Rate FiO2 09/30/17 15:03 86 33 50 09/30/17 14:00 92 27 119/59 97 Mechanical Ventilator 50 09/30/17 13:29 89 113/63 09/30/17 13:00 95 27 127/62 99 Mechanical Ventilator 50 09/30/17 12:51 89 33 60 09/30/17 12:00 50 09/30/17 12:00 98.9 85 28 118/60 98 Mechanical Ventilator 50 98.9 09/30/17 12:00 82 09/30/17 11:35 87 22 60 09/30/17 11:00 89 27 130/61 99 Mechanical Ventilator 50 09/30/17 10:00 95 27 125/60 99 Mechanical Ventilator 60 09/30/17 09:00 89 27 113/63 96 Mechanical Ventilator 60 09/30/17 08:46 87 27 60 09/30/17 08:00 99.0 85 28 118/60 98 Mechanical Ventilator 60 99.0 09/30/17 08:00 80 09/30/17 08:00 60 09/30/17 07:00 95 27 122/56 99 Mechanical Ventilator 60 09/30/17 06:55 80 25 60 09/30/17 06:00 88 26 108/52 97 Mechanical Ventilator 60 09/30/17 05:50 85 30 60 09/30/17 05:35 85 118/57 09/30/17 05:00 89 29 118/42 98 Mechanical Ventilator 60 09/30/17 04:00 99.1 95 30 118/57 98 Mechanical Ventilator 60 99.1 09/30/17 04:00 92 09/30/17 04:00 60 09/30/17 03:00 93 29 19/54 98 Mechanical Ventilator 60 09/30/17 02:37 89 30 60 09/30/17 02:00 92 29 127/58 98 Mechanical Ventilator 60 09/30/17 01:12 86 30 60 09/30/17 01:00 93 28 112/58 95 Mechanical Ventilator 60 09/30/17 00:00 93 09/30/17 00:00 98.6 95 30 117/58 98 Mechanical Ventilator 60 98.6 09/30/17 00:00 60 09/29/17 23:28 93 28 60 09/29/17 23:00 93 28 122/55 95 Mechanical Ventilator 60 09/29/17 22:08 93 18 60 09/29/17 22:05 96 127/63 09/29/17 22:00 91 28 131/63 95 Mechanical Ventilator 60 09/29/17 21:00 95 28 127/63 95 Mechanical Ventilator 60 09/29/17 20:36 100 26 60 09/29/17 20:00 60 09/29/17 20:00 98.9 95 28 126/58 97 Mechanical Ventilator 60 98.9 09/29/17 20:00 84 09/29/17 19:00 101 28 122/65 95 Mechanical Ventilator 60 09/29/17 18:00 94 30 129/66 95 Mechanical Ventilator 60 09/29/17 17:25 99 24 60 09/29/17 16:00 98.8 102 25 122/57 97 Mechanical Ventilator 60 98.8 09/29/17 16:00 60 09/29/17 16:00 94 09/29/17 15:25 106 27 60 Intake and Output 09/29/17 09/30/17 19:00 07:00 Intake Total 1000 ml 1260 ml Output Total 640 ml 665 ml Balance 360 ml 595 ml IV Total 1000 ml 1200 ml Tube Feeding 0 ml 0 ml Other 60 ml Output Urine Total 640 ml 665 ml # Bowel Movements 1 1 Laboratory Tests 09/30/17 04:35: White Blood Count 12.5H, Red Blood Count 3.43L, Hemoglobin 11.0#L, Hematocrit 33.4#L, Mean Corpuscular Volume 98, Mean Corpuscular Hemoglobin 32.1H, Mean Corpuscular Hemoglobin Concent 32.9, Red Cell Distribution Width 22.2H, Platelet Count 80L, Mean Platelet Volume 11.7H, Neutrophils (%) (Auto) , Lymphocytes (%) (Auto) , Monocytes (%) (Auto) , Eosinophils (%) (Auto) , Basophils (%) (Auto) , Differential Total Cells Counted 100, Neutrophils % ( Manual) 90H, Lymphocytes % (Manual) 4L, Monocytes % (Manual) 5, Eosinophils % ( Manual) 1, Basophils % (Manual) 0, Band Neutrophils 0, Platelet Estimate DecreasedL, Platelet Morphology Normal, Polychromasia 2+, Anisocytosis 2+, Sodium Level 152H, Potassium Level 3.3L, Chloride Level 117H, Carbon Dioxide Level 29, Anion Gap 6, Blood Urea Nitrogen 47H, Creatinine 1.0, Estimat Glomerular Filtration Rate , Glucose Level 145H, Calcium Level 8.4L, Phosphorus Level 3.6, Magnesium Level 2.0, Total Bilirubin 3.6H, Direct Bilirubin 1.9H, Aspartate Amino Transf (AST/SGOT) 32, Alanine Aminotransferase (ALT/SGPT) 16, Alkaline Phosphatase 621H, Total Protein 5.5L, Albumin 1.9L, Globulin 3.6, Albumin/Globulin Ratio 0.5L 09/30/17 08:50: Arterial Blood pH 7.431, Arterial Blood Partial Pressure CO2 43.7, Arterial Blood Partial Pressure O2 110.5H, Arterial Blood HCO3 28.4H, Arterial Blood Oxygen Saturation 97.5, Arterial Blood Base Excess 3.7, Luis A Test Positive Height (Feet): 5 Height (Inches): 0.00 Weight (Pounds): 113 General Appearance: no apparent distress Objective no change YAEL HANSEN Sep 30, 2017 15:17
--- NOTE | 2017-09-30 15:56 | General Progress Note ---
Assessment/Plan Assessment/Plan Assessment - Resp failure / ARDS / PNA - Abnormal LFT, Biliary obstruction, possible cholangitis - Anemia with OB (+) stools - thrombocytopenia - better - Malnutrition - feeds on hold due to biliary process - Diarrhea - C Diff negative - hypernatremia - improving - Leukocytosis / sepsis - on abx Recommendations - Continue NPO/IVF - replace lytes - ERCP tomorrow if family agrees - transfuse PRN - Elevate HOB - Vent care - Monitor labs - abx Subjective Allergies: Coded Allergies: No Known Allergies (Verified , 11/18/08) Subjective Above noted d/w nephew re planned EUS for today possibility of ERCP also mentioned pt subsequently seen in GI lab EUS showing distal CBD slugde/stone Bili higher today Objective Last 24 Hour Vital Signs Date Time Temp Pulse Resp B/P (MAP) Pulse Ox O2 Delivery O2 Flow Rate FiO2 09/30/17 15:03 86 33 50 09/30/17 14:00 92 27 119/59 97 Mechanical Ventilator 50 09/30/17 13:29 89 113/63 09/30/17 13:00 95 27 127/62 99 Mechanical Ventilator 50 09/30/17 12:51 89 33 60 09/30/17 12:00 50 09/30/17 12:00 98.9 85 28 118/60 98 Mechanical Ventilator 50 98.9 09/30/17 12:00 82 09/30/17 11:35 87 22 60 09/30/17 11:00 89 27 130/61 99 Mechanical Ventilator 50 09/30/17 10:00 95 27 125/60 99 Mechanical Ventilator 60 09/30/17 09:00 89 27 113/63 96 Mechanical Ventilator 60 09/30/17 08:46 87 27 60 09/30/17 08:00 99.0 85 28 118/60 98 Mechanical Ventilator 60 99.0 09/30/17 08:00 80 09/30/17 08:00 60 09/30/17 07:00 95 27 122/56 99 Mechanical Ventilator 60 09/30/17 06:55 80 25 60 09/30/17 06:00 88 26 108/52 97 Mechanical Ventilator 60 09/30/17 05:50 85 30 60 09/30/17 05:35 85 118/57 09/30/17 05:00 89 29 118/42 98 Mechanical Ventilator 60 09/30/17 04:00 99.1 95 30 118/57 98 Mechanical Ventilator 60 99.1 09/30/17 04:00 92 09/30/17 04:00 60 09/30/17 03:00 93 29 19/54 98 Mechanical Ventilator 60 09/30/17 02:37 89 30 60 09/30/17 02:00 92 29 127/58 98 Mechanical Ventilator 60 09/30/17 01:12 86 30 60 09/30/17 01:00 93 28 112/58 95 Mechanical Ventilator 60 09/30/17 00:00 93 09/30/17 00:00 98.6 95 30 117/58 98 Mechanical Ventilator 60 98.6 09/30/17 00:00 60 09/29/17 23:28 93 28 60 09/29/17 23:00 93 28 122/55 95 Mechanical Ventilator 60 09/29/17 22:08 93 18 60 09/29/17 22:05 96 127/63 09/29/17 22:00 91 28 131/63 95 Mechanical Ventilator 60 09/29/17 21:00 95 28 127/63 95 Mechanical Ventilator 60 09/29/17 20:36 100 26 60 09/29/17 20:00 60 09/29/17 20:00 98.9 95 28 126/58 97 Mechanical Ventilator 60 98.9 09/29/17 20:00 84 09/29/17 19:00 101 28 122/65 95 Mechanical Ventilator 60 09/29/17 18:00 94 30 129/66 95 Mechanical Ventilator 60 09/29/17 17:25 99 24 60 09/29/17 16:00 98.8 102 25 122/57 97 Mechanical Ventilator 60 98.8 09/29/17 16:00 60 09/29/17 16:00 94 Intake and Output 09/29/17 09/30/17 19:00 07:00 Intake Total 1000 ml 1260 ml Output Total 640 ml 665 ml Balance 360 ml 595 ml IV Total 1000 ml 1200 ml Tube Feeding 0 ml 0 ml Other 60 ml Output Urine Total 640 ml 665 ml # Bowel Movements 1 1 Laboratory Tests 09/30/17 04:35: White Blood Count 12.5H, Red Blood Count 3.43L, Hemoglobin 11.0#L, Hematocrit 33.4#L, Mean Corpuscular Volume 98, Mean Corpuscular Hemoglobin 32.1H, Mean Corpuscular Hemoglobin Concent 32.9, Red Cell Distribution Width 22.2H, Platelet Count 80L, Mean Platelet Volume 11.7H, Neutrophils (%) (Auto) , Lymphocytes (%) (Auto) , Monocytes (%) (Auto) , Eosinophils (%) (Auto) , Basophils (%) (Auto) , Differential Total Cells Counted 100, Neutrophils % ( Manual) 90H, Lymphocytes % (Manual) 4L, Monocytes % (Manual) 5, Eosinophils % ( Manual) 1, Basophils % (Manual) 0, Band Neutrophils 0, Platelet Estimate DecreasedL, Platelet Morphology Normal, Polychromasia 2+, Anisocytosis 2+, Sodium Level 152H, Potassium Level 3.3L, Chloride Level 117H, Carbon Dioxide Level 29, Anion Gap 6, Blood Urea Nitrogen 47H, Creatinine 1.0, Estimat Glomerular Filtration Rate , Glucose Level 145H, Calcium Level 8.4L, Phosphorus Level 3.6, Magnesium Level 2.0, Total Bilirubin 3.6H, Direct Bilirubin 1.9H, Aspartate Amino Transf (AST/SGOT) 32, Alanine Aminotransferase (ALT/SGPT) 16, Alkaline Phosphatase 621H, Total Protein 5.5L, Albumin 1.9L, Globulin 3.6, Albumin/Globulin Ratio 0.5L 09/30/17 08:50: Arterial Blood pH 7.431, Arterial Blood Partial Pressure CO2 43.7, Arterial Blood Partial Pressure O2 110.5H, Arterial Blood HCO3 28.4H, Arterial Blood Oxygen Saturation 97.5, Arterial Blood Base Excess 3.7, Luis A Test Positive Height (Feet): 5 Height (Inches): 0.00 Weight (Pounds): 113 Objective WDWN NCAT , (+) ETT supple CTA RRR abd soft (+) edema non verbal ARNULFO DURON Sep 30, 2017 15:56
--- NOTE | 2017-09-30 16:24 | Internal Med Progress Note ---
Subjective Date of Service: Sep 30, 2017 Physician Name Bowens,Sina Attending Physician Jesus Barahona MD Current Medications Medications (Trade) Dose Ordered Sig/Hermes Route PRN Reason Start Time Stop Time Status Last Admin Dose Admin Acetaminophen (Tylenol) 650 mg EVERY 6 HOURS PRN NG Fever/Headache/Mild Pain 09/13/17 20:45 10/13/17 20:44 09/27/17 16:49 Acetaminophen (Tylenol) 650 mg Q4H PRN ORAL Mild Pain (Pain Scale 1-3) 09/30/17 14:45 09/30/17 20:30 Albuterol/ Ipratropium (Albuterol/ Ipratropium) 3 ml Q4H PRN HHN Shortness of Breath 09/28/17 10:15 10/03/17 10:14 09/28/17 13:00 Amikacin Protocol (Amikacin pharmacy to dose) 1 ea DAILY PRN MISC Per rx protocol 09/23/17 11:45 10/23/17 11:44 Amikacin Sulfate 500 mg/Sodium Chloride 112 ml @ 112 mls/hr Q36H IV 09/25/17 11:30 10/02/17 11:29 09/29/17 23:16 Clonidine HCl (Catapres Tab) 0.1 mg Q4H PRN ORAL SBP>160 UNRELIEVED BY HYDRALAZ 09/16/17 16:45 10/15/17 16:59 Dextrose (Dextrose 50%) STAT PRN IV Hypoglycemia 09/13/17 15:00 10/13/17 14:59 Diltiazem HCl (Cardizem) 30 mg EVERY 8 HOURS NG 09/18/17 22:00 10/18/17 21:59 09/30/17 13:29 Diphenhydramine HCl (Benadryl) 25 mg Q15M PRN IVP Itching 09/30/17 14:45 09/30/17 20:30 Hydralazine HCl (Apresoline) 5 mg Q30M PRN IV SBP>160 OR___/DBP>90 OR___ 09/30/17 14:45 09/30/17 20:30 Insulin Aspart (NovoLOG) EVERY 6 HOURS SUBQ 09/17/17 12:00 10/17/17 11:59 09/30/17 05:36 Ketotifen Fumarate (Zatidor) 1 drop DAILY BOTH EYES 09/26/17 09:00 10/25/17 08:59 09/30/17 09:00 Lactated Ringer's 1,000 ml @ 10 mls/hr Q24H IVLG 09/30/17 14:32 09/30/17 20:30 Micafungin Sodium 100 mg/Sodium Chloride 110 ml @ 110 mls/hr Q24H IVPB 09/30/17 13:00 10/07/17 12:59 09/30/17 13:59 Ondansetron HCl (Zofran) 4 mg Q1H PRN IVP Nausea & Vomiting 09/30/17 14:45 09/30/17 20:30 Pantoprazole (Protonix) 40 mg DAILY ORAL 09/28/17 09:00 10/28/17 08:59 09/30/17 10:08 Polyethylene Glycol (Miralax) 17 gm BEDTIME ORAL 09/14/17 21:00 10/14/17 20:59 09/28/17 21:18 Potassium Chloride 10 meq/ Dextrose/Sodium Chloride 1,005 ml @ 100 mls/hr Q10H3M IV 09/30/17 18:00 10/30/17 17:59 Allergies: Coded Allergies: No Known Allergies (Verified , 11/18/08) ROS Limited/Unobtainable: Yes Subjective 76 YO F admitted with Shortness of breath, now respiratory failure. Intubated and sedated. Cover for Internal Med-Dr. Barahona. ICU . Objective Last Vital Signs Date Time Temp Pulse Resp B/P (MAP) Pulse Ox O2 Delivery O2 Flow Rate FiO2 09/30/17 15:03 86 33 50 09/30/17 14:00 119/59 97 Mechanical Ventilator 09/30/17 12:00 98.9 98.9 Laboratory Tests Test 09/30/17 04:35 09/30/17 08:50 White Blood Count 12.5 K/UL (4.8-10.8) H Red Blood Count 3.43 M/UL (4.20-5.40) L Hemoglobin 11.0 G/DL (12.0-16.0) #L Hematocrit 33.4 % (37.0-47.0) #L Mean Corpuscular Volume 98 FL (80-99) Mean Corpuscular Hemoglobin 32.1 PG (27.0-31.0) H Mean Corpuscular Hemoglobin Concent 32.9 G/DL (32.0-36.0) Red Cell Distribution Width 22.2 % (11.6-14.8) H Platelet Count 80 K/UL (150-450) L Mean Platelet Volume 11.7 FL (6.5-10.1) H Neutrophils (%) (Auto) % (45.0-75.0) Lymphocytes (%) (Auto) % (20.0-45.0) Monocytes (%) (Auto) % (1.0-10.0) Eosinophils (%) (Auto) % (0.0-3.0) Basophils (%) (Auto) % (0.0-2.0) Differential Total Cells Counted 100 Neutrophils % (Manual) 90 % (45-75) H Lymphocytes % (Manual) 4 % (20-45) L Monocytes % (Manual) 5 % (1-10) Eosinophils % (Manual) 1 % (0-3) Basophils % (Manual) 0 % (0-2) Band Neutrophils 0 % (0-8) Platelet Estimate Decreased L Platelet Morphology Normal Polychromasia 2+ Anisocytosis 2+ Sodium Level 152 MMOL/L (136-145) H Potassium Level 3.3 MMOL/L (3.5-5.1) L Chloride Level 117 MMOL/L (98-107) H Carbon Dioxide Level 29 MMOL/L (21-32) Anion Gap 6 mmol/L (5-15) Blood Urea Nitrogen 47 mg/dL (7-18) H Creatinine 1.0 MG/DL (0.55-1.30) Estimat Glomerular Filtration Rate mL/min (>60) Glucose Level 145 MG/DL (74-106) H Calcium Level 8.4 MG/DL (8.5-10.1) L Phosphorus Level 3.6 MG/DL (2.5-4.9) Magnesium Level 2.0 MG/DL (1.8-2.4) Total Bilirubin 3.6 MG/DL (0.2-1.0) H Direct Bilirubin 1.9 MG/DL (0.0-0.3) H Aspartate Amino Transf (AST/SGOT) 32 U/L (15-37) Alanine Aminotransferase (ALT/SGPT) 16 U/L (12-78) Alkaline Phosphatase 621 U/L (46-116) H Total Protein 5.5 G/DL (6.4-8.2) L Albumin 1.9 G/DL (3.4-5.0) L Globulin 3.6 g/dL Albumin/Globulin Ratio 0.5 (1.0-2.7) L Arterial Blood pH 7.431 (7.350-7.450) Arterial Blood Partial Pressure CO2 43.7 mmHg (35.0-45.0) Arterial Blood Partial Pressure O2 110.5 mmHg (75.0-100.0) H Arterial Blood HCO3 28.4 mmol/L (22.0-26.0) H Arterial Blood Oxygen Saturation 97.5 % (92.0-98.0) Arterial Blood Base Excess 3.7 Luis A Test Positive Intake and Output 09/29/17 09/30/17 19:00 07:00 Intake Total 1000 ml 1260 ml Output Total 640 ml 665 ml Balance 360 ml 595 ml IV Total 1000 ml 1200 ml Tube Feeding 0 ml 0 ml Other 60 ml Output Urine Total 640 ml 665 ml # Bowel Movements 1 1 Objective General Appearance: lethargic, thin EENT: normal ENT inspection Neck: non-tender, normal alignment, supple Cardiovascular: normal peripheral pulses, normal rate, regular rhythm, no gallop/murmur, no JVD Respiratory/Chest: Mechanical vent; respiratory distress, crackles/rales, rhonchi - bilaterally, expiratory wheezing Abdomen: normal bowel sounds, non tender, soft, no organomegaly, no mass Skin: normal pigmentation, warm/dry Assessment/Plan Problem List: (1) HTN (hypertension) Assessment & Plan: Currently hypotensive. (2) Arthritis, rheumatoid (3) Parkinsons disease (4) Aplastic anemia (5) GERD (gastroesophageal reflux disease) (6) Respiratory failure Assessment & Plan: Cont vent per pulmonary (7) Pneumonia (8) Dyspnea (9) Sepsis Assessment & Plan: Blood culture neg. Continue Amikacin, micafungin and flagyl per ID (10) ARDS (adult respiratory distress syndrome) Assessment & Plan: See pulmonary note (11) UTI (urinary tract infection) Assessment & Plan: E.Coli. Continue abx per ID (12) Anemia Assessment & Plan: S/P Transfusion 2 units PRBC (13) Diabetes mellitus, type II Assessment & Plan: Continue novolog sliding scale (14) Leukocytosis Assessment & Plan: Worsening. See ID note. Start amikacin and fluconazole (15) Thrombocytopenia Status: not improved SINA BOWENS Sep 30, 2017 16:24
--- NOTE | 2017-09-30 16:28 | Cardiac Electrophysiology PN ---
Assessment/Plan Assessment/Plan 1. Respiratory failure, due to underlying ARDS , pneumonia. Intubated on the vent. Already ruled out for myocardial infarction. Now on 50% Fio2 with PEEP of 5. Possible tracheostomy if Platelets OK and if family consents 2. Left bundle-branch block. No evidence of advanced heart block. 3. HTN and diastolic dysfunction. On Cardizem 30 q8 hr. Echo EF 55% 4. Hypernatremia and azotemia. F/U per Dr Mayer 5. Pneumonia and sepsis on IV antibiotics by Dr. Hunter. 6. Psychiatric disorder. 7. Anasarca. 3rd spacing. Lasix when OK with Dr Mayer 8. Anemia with Hb 6.6 s/p PRBC. CT chest abdomen and pelvis without contrast no acute finding S/P EGD by Dr Walton 9. Severe thrombocytopenia. S/P platelet transfusion 10. Abnormal LFT, Biliary obstruction, possible cholangitis. ERCP tomorrow if family consents MICHELLE RN Subjective Subjective Intubated on Vent in ICU.On 50% Fio2 and PEEP of 5. In sinus tach 110.Had EGD today by Isabelle Objective Last 24 Hour Vital Signs Date Time Temp Pulse Resp B/P (MAP) Pulse Ox O2 Delivery O2 Flow Rate FiO2 09/30/17 15:03 86 33 50 09/30/17 14:00 92 27 119/59 97 Mechanical Ventilator 50 09/30/17 13:29 89 113/63 09/30/17 13:00 95 27 127/62 99 Mechanical Ventilator 50 09/30/17 12:51 89 33 60 09/30/17 12:00 50 09/30/17 12:00 98.9 85 28 118/60 98 Mechanical Ventilator 50 98.9 09/30/17 12:00 82 09/30/17 11:35 87 22 60 09/30/17 11:00 89 27 130/61 99 Mechanical Ventilator 50 09/30/17 10:00 95 27 125/60 99 Mechanical Ventilator 60 09/30/17 09:00 89 27 113/63 96 Mechanical Ventilator 60 09/30/17 08:46 87 27 60 09/30/17 08:00 99.0 85 28 118/60 98 Mechanical Ventilator 60 99.0 09/30/17 08:00 80 09/30/17 08:00 60 09/30/17 07:00 95 27 122/56 99 Mechanical Ventilator 60 09/30/17 06:55 80 25 60 09/30/17 06:00 88 26 108/52 97 Mechanical Ventilator 60 09/30/17 05:50 85 30 60 09/30/17 05:35 85 118/57 09/30/17 05:00 89 29 118/42 98 Mechanical Ventilator 60 09/30/17 04:00 99.1 95 30 118/57 98 Mechanical Ventilator 60 99.1 09/30/17 04:00 92 09/30/17 04:00 60 09/30/17 03:00 93 29 19/54 98 Mechanical Ventilator 60 09/30/17 02:37 89 30 60 09/30/17 02:00 92 29 127/58 98 Mechanical Ventilator 60 09/30/17 01:12 86 30 60 09/30/17 01:00 93 28 112/58 95 Mechanical Ventilator 60 09/30/17 00:00 93 09/30/17 00:00 98.6 95 30 117/58 98 Mechanical Ventilator 60 98.6 09/30/17 00:00 60 09/29/17 23:28 93 28 60 09/29/17 23:00 93 28 122/55 95 Mechanical Ventilator 60 09/29/17 22:08 93 18 60 09/29/17 22:05 96 127/63 09/29/17 22:00 91 28 131/63 95 Mechanical Ventilator 60 09/29/17 21:00 95 28 127/63 95 Mechanical Ventilator 60 09/29/17 20:36 100 26 60 09/29/17 20:00 60 09/29/17 20:00 98.9 95 28 126/58 97 Mechanical Ventilator 60 98.9 09/29/17 20:00 84 09/29/17 19:00 101 28 122/65 95 Mechanical Ventilator 60 09/29/17 18:00 94 30 129/66 95 Mechanical Ventilator 60 09/29/17 17:25 99 24 60 Intake and Output 09/29/17 09/30/17 19:00 07:00 Intake Total 1000 ml 1260 ml Output Total 640 ml 665 ml Balance 360 ml 595 ml IV Total 1000 ml 1200 ml Tube Feeding 0 ml 0 ml Other 60 ml Output Urine Total 640 ml 665 ml # Bowel Movements 1 1 Laboratory Tests Test 09/30/17 04:35 3/20/18 08:50 White Blood Count 12.5 K/UL (4.8-10.8) H Red Blood Count 3.43 M/UL (4.20-5.40) L Hemoglobin 11.0 G/DL (12.0-16.0) #L Hematocrit 33.4 % (37.0-47.0) #L Mean Corpuscular Volume 98 FL (80-99) Mean Corpuscular Hemoglobin 32.1 PG (27.0-31.0) H Mean Corpuscular Hemoglobin Concent 32.9 G/DL (32.0-36.0) Red Cell Distribution Width 22.2 % (11.6-14.8) H Platelet Count 80 K/UL (150-450) L Mean Platelet Volume 11.7 FL (6.5-10.1) H Neutrophils (%) (Auto) % (45.0-75.0) Lymphocytes (%) (Auto) % (20.0-45.0) Monocytes (%) (Auto) % (1.0-10.0) Eosinophils (%) (Auto) % (0.0-3.0) Basophils (%) (Auto) % (0.0-2.0) Differential Total Cells Counted 100 Neutrophils % (Manual) 90 % (45-75) H Lymphocytes % (Manual) 4 % (20-45) L Monocytes % (Manual) 5 % (1-10) Eosinophils % (Manual) 1 % (0-3) Basophils % (Manual) 0 % (0-2) Band Neutrophils 0 % (0-8) Platelet Estimate Decreased L Platelet Morphology Normal Polychromasia 2+ Anisocytosis 2+ Sodium Level 152 MMOL/L (136-145) H Potassium Level 3.3 MMOL/L (3.5-5.1) L Chloride Level 117 MMOL/L (98-107) H Carbon Dioxide Level 29 MMOL/L (21-32) Anion Gap 6 mmol/L (5-15) Blood Urea Nitrogen 47 mg/dL (7-18) H Creatinine 1.0 MG/DL (0.55-1.30) Estimat Glomerular Filtration Rate mL/min (>60) Glucose Level 145 MG/DL (74-106) H Calcium Level 8.4 MG/DL (8.5-10.1) L Phosphorus Level 3.6 MG/DL (2.5-4.9) Magnesium Level 2.0 MG/DL (1.8-2.4) Total Bilirubin 3.6 MG/DL (0.2-1.0) H Direct Bilirubin 1.9 MG/DL (0.0-0.3) H Aspartate Amino Transf (AST/SGOT) 32 U/L (15-37) Alanine Aminotransferase (ALT/SGPT) 16 U/L (12-78) Alkaline Phosphatase 621 U/L (46-116) H Total Protein 5.5 G/DL (6.4-8.2) L Albumin 1.9 G/DL (3.4-5.0) L Globulin 3.6 g/dL Albumin/Globulin Ratio 0.5 (1.0-2.7) L Arterial Blood pH 7.431 (7.350-7.450) Arterial Blood Partial Pressure CO2 43.7 mmHg (35.0-45.0) Arterial Blood Partial Pressure O2 110.5 mmHg (75.0-100.0) H Arterial Blood HCO3 28.4 mmol/L (22.0-26.0) H Arterial Blood Oxygen Saturation 97.5 % (92.0-98.0) Arterial Blood Base Excess 3.7 Luis A Test Positive Objective HEAD AND NECK: Orally intubated. NG tube in LUNGS: Coarse rhonchi bilaterally CARDIOVASCULAR: Tachy S1 and S2.No murmur ABDOMEN: Soft. EXTREMITIES: 1+ pitting edema. ROLF OLIVIA Sep 30, 2017 16:28
[2017-09-30] MEDS: Potassium Chloride 10 MEQ in D5 1/2NS 1,000 ML IV SCH (17:42)
--- NOTE | 2017-09-30 19:30 | Procedure Note ---
DATE OF PROCEDURE: 09/30/2017 SURGEON: Franklin Walton M.D. REFERRING PHYSICIAN: Jesus Barahona M.D. PROCEDURE: Endoscopic ultrasound. ANESTHESIA: Per Dr. Hilton. INSTRUMENT: Olympus EUS scope. INDICATION: Elevated LFTs, rule out common bile duct stone. The procedure, risks, benefits, and possible consequences, including hemorrhage, aspiration, perforation and infection, and alternative treatments, were explained to the patient/legal guardian by Dr. Franklin Walton and the patient/legal guardian understood and accepted these risks. PROCEDURE: After informed consent was obtained and the patient was adequately sedated, the EUS scope was advanced from mouth into the second portion of the duodenum and pancreatic parenchyma examined through the gastroduodenal mucosa. The patient has evidence of dilated common bile duct to about 8.2 cm with lots of sludge in the distal common bile duct. The patient also has evidence of large ascites. No obvious pancreatic mass was seen. SUMMARY OF FINDINGS: 1. Dilated common bile duct with lots of sludge in the distal common bile duct, most probably explanation for abnormal liver function tests. 2. Large ascites. PLAN: The patient will need an ERCP, but given low platelets, we most probably have to do an ERCP with only putting stent without any sphincterotomy. This, we will discuss with the family and the primary care physician. I want to thank Dr. Barahona for this kind referral. Franklin Walton M.D. DR: MISTY JOB#: [id number] CC: Jesus Barahona M.D.; Fax#: [phone] ARNULFO DURON M.D. ; FAX#: [phone]
[2017-09-30] MEDS: Miralax 17gm pkt ORAL SCH (20:36)
--- NOTE | 2017-09-30 20:55 | General Progress Note ---
Assessment/Plan Problem List: (1) Arthritis, rheumatoid ICD Codes: M06.9 - Rheumatoid arthritis, unspecified SNOMED: 57614110 (2) Aspiration pneumonia ICD Codes: J69.0 - Pneumonitis due to inhalation of food and vomit SNOMED: 853770171 (3) Diabetes mellitus ICD Codes: E11.9 - Type 2 diabetes mellitus without complications SNOMED: 27190511 (4) ARDS (adult respiratory distress syndrome) ICD Codes: J80 - Acute respiratory distress syndrome SNOMED: 81280640 (5) Transaminitis ICD Codes: R74.0 - Nonspecific elevation of levels of transaminase and lactic acid dehydrogenase [LDH] SNOMED: 076648657, 061791361 (6) Dyspnea ICD Codes: R06.00 - Dyspnea, unspecified SNOMED: 727353473 (7) Parkinsons disease ICD Codes: G20 - Parkinson's disease SNOMED: 08464119 (8) Sepsis ICD Codes: A41.9 - Sepsis, unspecified organism SNOMED: 06452970 (9) GERD (gastroesophageal reflux disease) ICD Codes: K21.9 - Gastro-esophageal reflux disease without esophagitis SNOMED: 473268451 (10) Aplastic anemia ICD Codes: D61.9 - Aplastic anemia, unspecified SNOMED: 547527355 (11) Pneumonia ICD Codes: J18.9 - Pneumonia, unspecified organism SNOMED: 935016905 (12) HTN (hypertension) ICD Codes: I10 - Essential (primary) hypertension SNOMED: 32059046 Assessment/Plan Encephalopathy, agitation, psychotic disorder. -cont current meds -ativan prn Subjective Date patient seen: Sep 30, 2017 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: Reports: anxiety, depressed, emotional problems Allergies: Coded Allergies: No Known Allergies (Verified , 11/18/08) Objective Last 24 Hour Vital Signs Date Time Temp Pulse Resp B/P (MAP) Pulse Ox O2 Delivery O2 Flow Rate FiO2 09/30/17 19:18 79 21 45 09/30/17 19:00 87 25 119/65 97 Mechanical Ventilator 50 09/30/17 18:00 90 27 122/63 98 Mechanical Ventilator 50 09/30/17 17:00 89 26 121/58 97 Mechanical Ventilator 50 09/30/17 16:33 84 33 50 09/30/17 16:00 80 09/30/17 16:00 50 3/20/18 16:00 98.9 85 28 118/60 98 Mechanical Ventilator 50 98.9 320/18 15:03 86 33 50 3/20/18 15:00 87 27 120/65 96 Mechanical Ventilator 50 3/20/18 14:00 92 27 119/59 97 Mechanical Ventilator 50 3/20/18 13:29 89 113/63 3/20/18 13:00 95 27 127/62 99 Mechanical Ventilator 50 3/20/18 12:51 89 33 60 3/20/18 12:00 50 320/18 12:00 98.9 85 28 118/60 98 Mechanical Ventilator 50 98.9 20/18 12:00 82 09/30/18 11:35 87 22 60 3/18 11:00 89 27 130/61 99 Mechanical Ventilator 50 09/30/18 10:00 95 27 125/60 99 Mechanical Ventilator 60 //18 09:00 89 27 113/63 96 Mechanical Ventilator 60 18 08:46 87 27 60 09/30/18 08:00 99.0 85 28 118/60 98 Mechanical Ventilator 60 99.0 18 08:00 80 320/18 08:00 60 320/18 07:00 95 27 122/56 99 Mechanical Ventilator 60 09/30/ 06:55 80 25 60 3/18 06:00 88 26 108/52 97 Mechanical Ventilator 60 18 05:50 85 30 60 20/18 05:35 85 118/57 3/18 05:00 89 29 118/42 98 Mechanical Ventilator 60 18 04:00 99.1 95 30 118/57 98 Mechanical Ventilator 60 99.1 20/18 04:00 92 18 04:00 60 20/18 03:00 93 29 19/54 98 Mechanical Ventilator 60 20/18 02:37 89 30 60 320/18 02:00 92 29 127/58 98 Mechanical Ventilator 60 3/20/18 01:12 86 30 60 3/20/18 01:00 93 28 112/58 95 Mechanical Ventilator 60 3/20/18 00:00 93 20/18 00:00 98.6 95 30 117/58 98 Mechanical Ventilator 60 98.6 20/18 00:00 60 3//18 23:28 93 28 60 09/29/17 23:00 93 28 122/55 95 Mechanical Ventilator 60 09/29/17 22:08 93 18 60 09/29/17 22:05 96 127/63 09/29/17 22:00 91 28 131/63 95 Mechanical Ventilator 60 09/29/17 21:00 95 28 127/63 95 Mechanical Ventilator 60 Intake and Output 09/29/17 09/30/17 19:00 07:00 Intake Total 1000 ml 1260 ml Output Total 640 ml 665 ml Balance 360 ml 595 ml IV Total 1000 ml 1200 ml Tube Feeding 0 ml 0 ml Other 60 ml Output Urine Total 640 ml 665 ml # Bowel Movements 1 1 Laboratory Tests 09/30/17 04:35: White Blood Count 12.5H, Red Blood Count 3.43L, Hemoglobin 11.0#L, Hematocrit 33.4#L, Mean Corpuscular Volume 98, Mean Corpuscular Hemoglobin 32.1H, Mean Corpuscular Hemoglobin Concent 32.9, Red Cell Distribution Width 22.2H, Platelet Count 80L, Mean Platelet Volume 11.7H, Neutrophils (%) (Auto) , Lymphocytes (%) (Auto) , Monocytes (%) (Auto) , Eosinophils (%) (Auto) , Basophils (%) (Auto) , Differential Total Cells Counted 100, Neutrophils % ( Manual) 90H, Lymphocytes % (Manual) 4L, Monocytes % (Manual) 5, Eosinophils % ( Manual) 1, Basophils % (Manual) 0, Band Neutrophils 0, Platelet Estimate DecreasedL, Platelet Morphology Normal, Polychromasia 2+, Anisocytosis 2+, Sodium Level 152H, Potassium Level 3.3L, Chloride Level 117H, Carbon Dioxide Level 29, Anion Gap 6, Blood Urea Nitrogen 47H, Creatinine 1.0, Estimat Glomerular Filtration Rate , Glucose Level 145H, Calcium Level 8.4L, Phosphorus Level 3.6, Magnesium Level 2.0, Total Bilirubin 3.6H, Direct Bilirubin 1.9H, Aspartate Amino Transf (AST/SGOT) 32, Alanine Aminotransferase (ALT/SGPT) 16, Alkaline Phosphatase 621H, Total Protein 5.5L, Albumin 1.9L, Globulin 3.6, Albumin/Globulin Ratio 0.5L 09/30/17 08:50: Arterial Blood pH 7.431, Arterial Blood Partial Pressure CO2 43.7, Arterial Blood Partial Pressure O2 110.5H, Arterial Blood HCO3 28.4H, Arterial Blood Oxygen Saturation 97.5, Arterial Blood Base Excess 3.7, Luis A Test Positive Height (Feet): 5 Height (Inches): 0.00 Weight (Pounds): 113 General Appearance: no apparent distress, lethargic Dary Nixon M.D. Sep 30, 2017 20:55
[2017-10-01] VITALS (23 sets, daily range): BP systolic 100–128; BP diastolic 41–69
[2017-10-01] MEDS: NovoLOG Insulin Flexpen SUBQ SCH ×5 (00:11→23:47)
[2017-10-01] MEDS: Potassium Chloride 10 MEQ in D5 1/2NS 1,000 ML IV SCH ×3 (05:13→23:48)
[2017-10-01] MEDS: dilTIAZem HCl 30mg tab NG SCH ×2 (05:50→13:06)
--- NOTE | 2017-10-01 07:11 | Anethesia Preoperative Eval ---
Anesthesia Pre-op PMH/ROS General Date of Evaluation: Oct 01, 2017 Time of Evaluation: 07:01 Anesthesiologist: shoaib ASA Score: ASA 4 Mallampati Score Class I : Soft palate, uvula, fauces, pillars visible Class II: Soft palate, uvula, fauces visible Class III: Soft palate, base of uvula visible Class IV: Only hard plate visible Mallampati Classification: Class III Surgeon: marilyn Diagnosis: common bile duct stone Surgical Procedure: ercp Anesthesia History: none Family History: no anesthesia problems Allergies: Coded Allergies: No Known Allergies (Verified , 11/18/08) Medications: see eMAR Past Medical History Cardiovascular: Reports: HTN Pulmonary: Reports: other - ventilator dependent, ards,pulmonary edema Gastrointestinal/Genitourinary: Reports: GERD, other - gi bleed Endocrine: Reports: DM HEENT: Reports: cataract (L), cataract (R) Hematology/Immune: Reports: anemia Anesthesia Pre-op Phys. Exam Physician Exam Last Vital Signs Date Time Temp Pulse Resp B/P (MAP) Pulse Ox O2 Delivery O2 Flow Rate FiO2 10/01/17 06:41 94 25 45 10/01/17 06:00 120/69 95 Mechanical Ventilator 10/01/17 04:00 98.8 98.8 Constitutional: NAD Neurologic: CN 2-12 intact Cardiovascular: RRR, other Respiratory: CTA, other - oett, vent dependent Gastrointestinal: S/NT/ND, other - ngt in place Airway Exam Mallampati Score: Class III - intubated MO: limited Neck: short TMD: 2fb ROM: limited Anesthesia Pre-op A/P Labs Labs Test 09/29/17 00:40 09/29/17 04:30 09/29/17 09:05 09/29/17 10:05 Prothrombin Time 15.7 SEC (9.30-11.50) Prothromb Time International Ratio 1.5 (0.9-1.1) Activated Partial Thromboplast Time 33 SEC (23-33) White Blood Count 11.2 K/UL (4.8-10.8) 11.8 K/UL (4.8-10.8) Red Blood Count 2.21 M/UL (4.20-5.40) 2.22 M/UL (4.20-5.40) Hemoglobin 7.0 G/DL (12.0-16.0) 7.0 G/DL (12.0-16.0) Hematocrit 23.2 % (37.0-47.0) 23.3 % (37.0-47.0) Mean Corpuscular Volume 105 FL (80-99) 105 FL (80-99) Mean Corpuscular Hemoglobin 31.6 PG (27.0-31.0) 31.5 PG (27.0-31.0) Mean Corpuscular Hemoglobin Concent 30.1 G/DL (32.0-36.0) 29.9 G/DL (32.0-36.0) Red Cell Distribution Width 22.9 % (11.6-14.8) 23.3 % (11.6-14.8) Platelet Count 52 K/UL (150-450) 59 K/UL (150-450) Mean Platelet Volume 11.3 FL (6.5-10.1) 12.2 FL (6.5-10.1) Neutrophils (%) (Auto) % (45.0-75.0) % (45.0-75.0) Lymphocytes (%) (Auto) % (20.0-45.0) % (20.0-45.0) Monocytes (%) (Auto) % (1.0-10.0) % (1.0-10.0) Eosinophils (%) (Auto) % (0.0-3.0) % (0.0-3.0) Basophils (%) (Auto) % (0.0-2.0) % (0.0-2.0) Differential Total Cells Counted 100 100 Neutrophils % (Manual) 83 % (45-75) 86 % (45-75) Lymphocytes % (Manual) 12 % (20-45) 4 % (20-45) Monocytes % (Manual) 5 % (1-10) 9 % (1-10) Eosinophils % (Manual) 0 % (0-3) 1 % (0-3) Basophils % (Manual) 0 % (0-2) 0 % (0-2) Band Neutrophils 0 % (0-8) 0 % (0-8) Platelet Estimate Decreased Decreased Platelet Morphology Normal Normal Polychromasia 1+ 2+ Hypochromasia 1+ 1+ Anisocytosis 2+ 2+ Macrocytosis 1+ 1+ Sodium Level 156 MMOL/L (136-145) Potassium Level 3.8 MMOL/L (3.5-5.1) Chloride Level 121 MMOL/L (98-107) Carbon Dioxide Level 31 MMOL/L (21-32) Anion Gap 4 mmol/L (5-15) Blood Urea Nitrogen 62 mg/dL (7-18) Creatinine 1.1 MG/DL (0.55-1.30) Estimat Glomerular Filtration Rate mL/min (>60) Glucose Level 120 MG/DL (74-106) Calcium Level 9.1 MG/DL (8.5-10.1) Phosphorus Level 4.5 MG/DL (2.5-4.9) Magnesium Level 2.3 MG/DL (1.8-2.4) Total Bilirubin 2.1 MG/DL (0.2-1.0) Direct Bilirubin 1.1 MG/DL (0.0-0.3) Aspartate Amino Transf (AST/SGOT) 35 U/L (15-37) Alanine Aminotransferase (ALT/SGPT) 14 U/L (12-78) Alkaline Phosphatase 812 U/L (46-116) Total Protein 5.4 G/DL (6.4-8.2) Albumin 2.1 G/DL (3.4-5.0) Globulin 3.3 g/dL Albumin/Globulin Ratio 0.6 (1.0-2.7) Arterial Blood pH 7.507 (7.350-7.450) Arterial Blood Partial Pressure CO2 37.8 mmHg (35.0-45.0) Arterial Blood Partial Pressure O2 111.7 mmHg (75.0-100.0) Arterial Blood HCO3 29.3 mmol/L (22.0-26.0) Arterial Blood Oxygen Saturation 97.3 % (92.0-98.0) Arterial Blood Base Excess 5.8 Luis A Test Positive Test 09/30/17 04:35 09/30/17 08:50 White Blood Count 12.5 K/UL (4.8-10.8) Red Blood Count 3.43 M/UL (4.20-5.40) Hemoglobin 11.0 G/DL (12.0-16.0) Hematocrit 33.4 % (37.0-47.0) Mean Corpuscular Volume 98 FL (80-99) Mean Corpuscular Hemoglobin 32.1 PG (27.0-31.0) Mean Corpuscular Hemoglobin Concent 32.9 G/DL (32.0-36.0) Red Cell Distribution Width 22.2 % (11.6-14.8) Platelet Count 80 K/UL (150-450) Mean Platelet Volume 11.7 FL (6.5-10.1) Neutrophils (%) (Auto) % (45.0-75.0) Lymphocytes (%) (Auto) % (20.0-45.0) Monocytes (%) (Auto) % (1.0-10.0) Eosinophils (%) (Auto) % (0.0-3.0) Basophils (%) (Auto) % (0.0-2.0) Differential Total Cells Counted 100 Neutrophils % (Manual) 90 % (45-75) Lymphocytes % (Manual) 4 % (20-45) Monocytes % (Manual) 5 % (1-10) Eosinophils % (Manual) 1 % (0-3) Basophils % (Manual) 0 % (0-2) Band Neutrophils 0 % (0-8) Platelet Estimate Decreased Platelet Morphology Normal Polychromasia 2+ Anisocytosis 2+ Sodium Level 152 MMOL/L (136-145) Potassium Level 3.3 MMOL/L (3.5-5.1) Chloride Level 117 MMOL/L (98-107) Carbon Dioxide Level 29 MMOL/L (21-32) Anion Gap 6 mmol/L (5-15) Blood Urea Nitrogen 47 mg/dL (7-18) Creatinine 1.0 MG/DL (0.55-1.30) Estimat Glomerular Filtration Rate mL/min (>60) Glucose Level 145 MG/DL (74-106) Calcium Level 8.4 MG/DL (8.5-10.1) Phosphorus Level 3.6 MG/DL (2.5-4.9) Magnesium Level 2.0 MG/DL (1.8-2.4) Total Bilirubin 3.6 MG/DL (0.2-1.0) Direct Bilirubin 1.9 MG/DL (0.0-0.3) Aspartate Amino Transf (AST/SGOT) 32 U/L (15-37) Alanine Aminotransferase (ALT/SGPT) 16 U/L (12-78) Alkaline Phosphatase 621 U/L (46-116) Total Protein 5.5 G/DL (6.4-8.2) Albumin 1.9 G/DL (3.4-5.0) Globulin 3.6 g/dL Albumin/Globulin Ratio 0.5 (1.0-2.7) Arterial Blood pH 7.431 (7.350-7.450) Arterial Blood Partial Pressure CO2 43.7 mmHg (35.0-45.0) Arterial Blood Partial Pressure O2 110.5 mmHg (75.0-100.0) Arterial Blood HCO3 28.4 mmol/L (22.0-26.0) Arterial Blood Oxygen Saturation 97.5 % (92.0-98.0) Arterial Blood Base Excess 3.7 Luis A Test Positive Risk Assessment & Plan Assessment: [email or web address] Plan: mac Status Change Before Surgery: No Pre-Antibiotics Drug: CRISTIAN Garza Oct 01, 2017 07:11
[2017-10-01 07:52] LABS: HEMOGLOBIN 11.1 G/DL (12.0-16.0); MEAN CORPUSCULAR VOLUME 99 FL (80-99); PLATELET COUNT 95 K/UL (150-450); RED BLOOD COUNT 3.41 M/UL (4.20-5.40); RED CELL DISTRIBUTION WIDTH 21.7 % (11.6-14.8); WHITE BLOOD COUNT 9.8 K/UL (4.8-10.8)
[2017-10-01] MEDS ORDERED: Propofol 200mg/20ml IV ONE (08:00)
[2017-10-01] MEDS ORDERED: Lidocaine 1% MPF 10mg/ml 5ml ONE (08:00)
[2017-10-01] MEDS ORDERED: fentaNYL 100 mcg/2 mL IV ONE (08:00)
[2017-10-01] MEDS ORDERED: Glucagon 1mg Inj ONE (08:00)
[2017-10-01] MEDS: Ketotifen Fumarate 0.035% 5ml BOTH EYES SCH (08:18)
[2017-10-01 09:21] LABS: ALANINE AMINOTRANSFERASE 14 U/L (12-78); ALBUMIN 1.7 G/DL (3.4-5.0); ALBUMIN/GLOBULIN RATIO 0.4 (1.0-2.7); ALKALINE PHOSPHATASE 513 U/L (46-116); AMYLASE 18 U/L (25-115); ANION GAP 10 mmol/L (5-15); ASPARTATE AMINO TRANSFERASE 40 U/L (15-37); BLOOD UREA NITROGEN 38 mg/dL (7-18); CALCIUM 7.7 MG/DL (8.5-10.1); CARBON DIOXIDE 26 MMOL/L (21-32); CHLORIDE 117 MMOL/L (98-107); CREATININE 0.9 MG/DL (0.55-1.30); PHOSPHORUS 3.5 MG/DL (2.5-4.9); POTASSIUM 3.3 MMOL/L (3.5-5.1); SODIUM 153 MMOL/L (136-145)
[2017-10-01 09:36] LABS: BILIRUBIN,DIRECT 0.9 MG/DL (0.0-0.3)
--- NOTE | 2017-10-01 10:21 | Pre-Procedure Note/Attestation ---
Pre-Procedure Note/Attestation Complete Prior to Procedure Planned Procedure: not applicable Procedure Narrative: ercp Indications for Procedure Pre-Operative Diagnosis: elevated lfts CBD sludge Attestation I attest that I discussed the nature of the procedure; its benefits; risks and complications; and alternatives (and the risks and benefits of such alternatives ), prior to the procedure, with the patient (or the patient's legal operations support representative). I attest that, if there was a reasonable possibility of needing a blood transfusion, the patient (or the patient's legal operations support representative) was given the [facility] standardized written summary, pursuant to the Tristan Linette Blood Safety Act ([place] Health and Safety Code # 1645, as amended). I attest that I re-evaluated the patient just prior to the surgery and that there has been no change in the patient's H&P, except as documented below: KIT GONZALEZ Oct 01, 2017 10:21
[2017-10-01] MEDS ORDERED: Iothalamate Meglumine 60% 30ML INJ ONE (10:23)
--- NOTE | 2017-10-01 11:15 | Pulmonolgy Critical Care Note ---
Critical Care - Asmt/Plan Problems: (1) ARDS (adult respiratory distress syndrome) (2) Aspiration pneumonia (3) Anemia (4) Thrombocytopenia (5) Diabetes mellitus (6) Protein-calorie malnutrition, severe Assessment/Plan: improving overall, still on fio2 50%. tracheostomy when pt more stable Upper endoscopy done yesterday. Colonoscopy to be done today. 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 - Objective Last 24 Hour Vital Signs Date Time Temp Pulse Resp B/P (MAP) Pulse Ox O2 Delivery O2 Flow Rate FiO2 10/01/17 10:55 99 21 45 10/01/17 09:00 89 19 115/62 95 Mechanical Ventilator 50 10/01/17 08:45 94 23 45 10/01/17 08:19 84 21 95 10/01/17 08:18 207.0 86 18 96 10/01/17 08:00 98.2 92 20 117/63 96 Mechanical Ventilator 50 98.2 10/01/17 08:00 89 10/01/17 08:00 50 10/01/17 07:00 93 20 115/56 95 Mechanical Ventilator 50 10/01/17 06:41 94 25 45 10/01/17 06:00 84 21 120/69 95 Mechanical Ventilator 50 10/01/17 05:50 94 128/65 10/01/17 05:02 88 19 45 10/01/17 05:00 86 22 128/65 99 Mechanical Ventilator 50 10/01/17 04:00 98.8 93 20 119/61 96 Mechanical Ventilator 50 98.8 10/01/17 04:00 93 10/01/17 04:00 50 10/01/17 03:00 92 24 108/41 96 Mechanical Ventilator 50 10/01/17 02:50 91 20 45 10/01/17 02:00 92 24 118/60 96 Mechanical Ventilator 50 10/01/17 01:03 88 23 45 10/01/17 01:00 98.8 88 21 109/63 96 Mechanical Ventilator 50 98.8 10/01/17 00:00 94 10/01/17 00:00 94 20 125/60 94 Mechanical Ventilator 50 10/01/17 00:00 50 09/30/17 23:01 92 119/59 18 23:00 93 20 124/57 94 Mechanical Ventilator 50 09/30/17 22:42 90 18 45 09/30/17 22:00 92 19 119/59 94 Mechanical Ventilator 50 09/30/17 21:29 80 20 45 09/30/17 21:00 95 18 120/61 94 Mechanical Ventilator 50 09/30/17 20:00 94 09/30/17 20:00 98.2 94 23 116/60 94 Mechanical Ventilator 50 98.2 09/30/17 20:00 50 09/30/17 19:18 79 21 45 09/30/17 19:00 87 25 119/65 97 Mechanical Ventilator 50 09/30/17 18:00 90 27 122/63 98 Mechanical Ventilator 50 09/30/17 17:00 89 26 121/58 97 Mechanical Ventilator 50 09/30/17 16:33 84 33 50 09/30/17 16:00 80 09/30/17 16:00 50 09/30/17 16:00 98.9 85 28 118/60 98 Mechanical Ventilator 50 98.9 09/30/17 15:03 86 33 50 18 15:00 87 27 120/65 96 Mechanical Ventilator 50 09/30/17 14:00 92 27 119/59 97 Mechanical Ventilator 50 09/30/17 13:29 89 113/63 18 13:00 95 27 127/62 99 Mechanical Ventilator 50 09/30/17 12:51 89 33 60 18 12:00 50 09/30/17 12:00 98.9 85 28 118/60 98 Mechanical Ventilator 50 98.9 09/30/17 12:00 82 09/30/17 11:35 87 22 60 Status: awake Condition: critical HEENT: atraumatic Lungs: clear, chest wall tender Heart: HR/BP stable, HR/BP unstable, regular Abdomen: soft Extremities: edema Decubiti: location Accucheck: 129 Critical Care - Subjective ROS Limited/Unobtainable: No ICU Day: 20 Intubation Day: 20 Condition: critical EKG Rhythm: Sinus Rhythm FI02: 45 Vent Support Breath Rate: 18 Vent Support Mode: AC Vent Tidal Volume: 500 Sputum Amount: Small PEEP: 5.0 PIP: 48 Tube Feeding Amount: 0 I&O: Intake and Output 09/30/17 10/01/17 19:00 07:00 Intake Total 910 ml 1200 ml Output Total 550 ml 360 ml Balance 360 ml 840 ml IV Total 910 ml 1200 ml Output Urine Total 550 ml 360 ml # Bowel Movements 2 4 CXR: no change ET-Tube: 7.5 ET Position: 20 Labs: Laboratory Tests Test 10/01/17 05:00 White Blood Count 9.8 K/UL (4.8-10.8) Red Blood Count 3.41 M/UL (4.20-5.40) L Hemoglobin 11.1 G/DL (12.0-16.0) L Hematocrit 34.0 % (37.0-47.0) L Mean Corpuscular Volume 99 FL (80-99) Mean Corpuscular Hemoglobin 32.5 PG (27.0-31.0) H Mean Corpuscular Hemoglobin Concent 32.7 G/DL (32.0-36.0) Red Cell Distribution Width 21.7 % (11.6-14.8) H Platelet Count 95 K/UL (150-450) L Mean Platelet Volume 12.4 FL (6.5-10.1) H Neutrophils (%) (Auto) % (45.0-75.0) Lymphocytes (%) (Auto) % (20.0-45.0) Monocytes (%) (Auto) % (1.0-10.0) Eosinophils (%) (Auto) % (0.0-3.0) Basophils (%) (Auto) % (0.0-2.0) Differential Total Cells Counted 100 Neutrophils % (Manual) 83 % (45-75) H Lymphocytes % (Manual) 12 % (20-45) L Monocytes % (Manual) 4 % (1-10) Eosinophils % (Manual) 1 % (0-3) Basophils % (Manual) 0 % (0-2) Band Neutrophils 0 % (0-8) Platelet Estimate Adequate Platelet Morphology Normal Anisocytosis 2+ Erythrocyte Sedimentation Rate Pending Sodium Level 153 MMOL/L (136-145) H Potassium Level 3.3 MMOL/L (3.5-5.1) L Chloride Level 117 MMOL/L (98-107) H Carbon Dioxide Level 26 MMOL/L (21-32) Anion Gap 10 mmol/L (5-15) Blood Urea Nitrogen 38 mg/dL (7-18) H Creatinine 0.9 MG/DL (0.55-1.30) Estimat Glomerular Filtration Rate mL/min (>60) Glucose Level 122 MG/DL (74-106) H Calcium Level 7.7 MG/DL (8.5-10.1) L Phosphorus Level 3.5 MG/DL (2.5-4.9) Magnesium Level 2.1 MG/DL (1.8-2.4) Total Bilirubin 2.0 MG/DL (0.2-1.0) H Direct Bilirubin 0.9 MG/DL (0.0-0.3) H Aspartate Amino Transf (AST/SGOT) 40 U/L (15-37) H Alanine Aminotransferase (ALT/SGPT) 14 U/L (12-78) Alkaline Phosphatase 513 U/L (46-116) H C-Reactive Protein, Quantitative 11.2 mg/dL (0.00-0.90) H Total Protein 5.7 G/DL (6.4-8.2) L Albumin 1.7 G/DL (3.4-5.0) L Globulin 4.0 g/dL Albumin/Globulin Ratio 0.4 (1.0-2.7) L Amylase Level 18 U/L (25-115) L Lipase 51 U/L (73-393) L Tayler Liu MD Oct 01, 2017 11:14
[2017-10-01] MEDS ORDERED: NS 500ML IV ONE (11:20)
[2017-10-01] MEDS ORDERED: Tubing IV Extension IV ONE (11:20)
[2017-10-01] MEDS: Amikacin 500 MG in NS 110 ML IV SCH (11:30)
--- NOTE | 2017-10-01 11:31 | General Progress Note ---
Assessment/Plan Assessment/Plan #. Anemia due to underlying chronic disease. Continue to closely monitor. --> Hemoglobin goal is above 7. --> Transfuse as necessary --> Anemia workup has been reviewed at this point. --> S/P Blood transfusion as hemoglobin levels dropped. #. Leukocytosis likely related to underlying pneumonia infection. --> On antibiotic treatment. --> Wbc count improved from yesterday. --> Cont to monitor and trend daily. #. Thrombocytopenia, severe and progressive, acute onset, likely secondary to underlying infection, aspiration pneumonia versus HIT. --> Antibody test is pending. Heparin has been discontinued on 09/18/2017. --> Duplex of the lower extremities is negative, therefore less likely HIT and other causes are more likely such as underlying infection. --> Platelets goal >20k, transfuse if necessary. --> Has Remained low past few days. On antibiotic treatment. --> Improved slightly today. #. Community-acquired pneumonia versus hospital-acquired. --> The patient on broad-spectrum antibiotics. --> Improved. --> Urine culture growing E. coli. Continue to closely monitor. #. Transaminitis. She has been seen by GI Service. Continue to closely monitor. #. Low-grade fever. Closely observe. #. Encephalopathy. Subjective Date patient seen: Sep 30, 2017 Constitutional: Denies: no symptoms, chills, diaphoresis, fever, malaise, weakness, other HEENT: Denies: no symptoms, eye pain, blurred vision, tearing, double vision, ear pain, ear discharge, nose pain, nose congestion, throat pain, throat swelling, mouth pain, mouth swelling, other Cardiovascular: Denies: no symptoms, chest pain, edema, irregular heart rate, lightheadedness, palpitations, syncope, other Respiratory: Denies: no symptoms, cough, orthopnea, shortness of breath, SOB with excertion, SOB at rest, sputum, stridor, wheezing, other Gastrointestinal/Abdominal: Denies: no symptoms, abdomen distended, abdominal pain, black stools, tarry stools, blood in stool, constipated, diarrhea, difficulty swallowing, nausea, poor appetite, poor fluid intake, rectal bleeding , vomiting, other Genitourinary: Denies: no symptoms, burning, discharge, frequency, flank pain, hematuria, incontinence, pain, urgency, other 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: Denies: no symptoms, anxiety, depressed, emotional problems, headache, numbness, paresthesia, pre-existing deficit, seizure, tingling, tremors, weakness, other Hematologic/Lymphatic: Reports: anemia Allergies: Coded Allergies: No Known Allergies (Verified , 11/18/08) Subjective S/P Blood transfusion. No adverse events. Objective Last 24 Hour Vital Signs Date Time Temp Pulse Resp B/P (MAP) Pulse Ox O2 Delivery O2 Flow Rate FiO2 10/01/17 10:55 99 21 45 10/01/17 09:00 89 19 115/62 95 Mechanical Ventilator 50 10/01/17 08:45 94 23 45 10/01/17 08:19 84 21 95 10/01/17 08:18 207.0 86 18 96 10/01/17 08:00 98.2 92 20 117/63 96 Mechanical Ventilator 50 98.2 10/01/17 08:00 89 10/01/17 08:00 50 10/01/17 07:00 93 20 115/56 95 Mechanical Ventilator 50 10/01/17 06:41 94 25 45 10/01/17 06:00 84 21 120/69 95 Mechanical Ventilator 50 10/01/17 05:50 94 128/65 10/01/17 05:02 88 19 45 10/01/17 05:00 86 22 128/65 99 Mechanical Ventilator 50 10/01/17 04:00 98.8 93 20 119/61 96 Mechanical Ventilator 50 98.8 10/01/17 04:00 93 10/01/17 04:00 50 10/01/17 03:00 92 24 108/41 96 Mechanical Ventilator 50 10/01/17 02:50 91 20 45 10/01/17 02:00 92 24 118/60 96 Mechanical Ventilator 50 10/01/17 01:03 88 23 45 10/01/17 01:00 98.8 88 21 109/63 96 Mechanical Ventilator 50 98.8 10/01/17 00:00 94 10/01/17 00:00 94 20 125/60 94 Mechanical Ventilator 50 10/01/17 00:00 50 09/30/17 23:01 92 119/59 09/30/17 23:00 93 20 124/57 94 Mechanical Ventilator 50 09/30/17 22:42 90 18 45 09/30/17 22:00 92 19 119/59 94 Mechanical Ventilator 50 09/30/17 21:29 80 20 45 09/30/17 21:00 95 18 120/61 94 Mechanical Ventilator 50 09/30/17 20:00 94 09/30/17 20:00 98.2 94 23 116/60 94 Mechanical Ventilator 50 98.2 09/30/17 20:00 50 09/30/17 19:18 79 21 45 09/30/17 19:00 87 25 119/65 97 Mechanical Ventilator 50 09/30/17 18:00 90 27 122/63 98 Mechanical Ventilator 50 09/30/17 17:00 89 26 121/58 97 Mechanical Ventilator 50 09/30/17 16:33 84 33 50 09/30/17 16:00 80 09/30/17 16:00 50 09/30/17 16:00 98.9 85 28 118/60 98 Mechanical Ventilator 50 98.9 09/30/17 15:03 86 33 50 09/30/17 15:00 87 27 120/65 96 Mechanical Ventilator 50 09/30/17 14:00 92 27 119/59 97 Mechanical Ventilator 50 09/30/17 13:29 89 113/63 09/30/17 13:00 95 27 127/62 99 Mechanical Ventilator 50 09/30/17 12:51 89 33 60 09/30/17 12:00 50 09/30/17 12:00 98.9 85 28 118/60 98 Mechanical Ventilator 50 98.9 09/30/17 12:00 82 09/30/17 11:35 87 22 60 Intake and Output 09/30/17 10/01/17 19:00 07:00 Intake Total 910 ml 1200 ml Output Total 550 ml 360 ml Balance 360 ml 840 ml IV Total 910 ml 1200 ml Output Urine Total 550 ml 360 ml # Bowel Movements 2 4 Laboratory Tests 10/01/17 05:00: White Blood Count 9.8, Red Blood Count 3.41L, Hemoglobin 11.1L, Hematocrit 34.0L , Mean Corpuscular Volume 99, Mean Corpuscular Hemoglobin 32.5H, Mean Corpuscular Hemoglobin Concent 32.7, Red Cell Distribution Width 21.7H, Platelet Count 95L, Mean Platelet Volume 12.4H, Neutrophils (%) (Auto) , Lymphocytes (%) (Auto) , Monocytes (%) (Auto) , Eosinophils (%) (Auto) , Basophils (%) (Auto) , Differential Total Cells Counted 100, Neutrophils % ( Manual) 83H, Lymphocytes % (Manual) 12L, Monocytes % (Manual) 4, Eosinophils % ( Manual) 1, Basophils % (Manual) 0, Band Neutrophils 0, Platelet Estimate Adequate, Platelet Morphology Normal, Anisocytosis 2+, Sodium Level 153H, Potassium Level 3.3L, Chloride Level 117H, Carbon Dioxide Level 26, Anion Gap 10 , Blood Urea Nitrogen 38H, Creatinine 0.9, Estimat Glomerular Filtration Rate , Glucose Level 122H, Calcium Level 7.7L, Phosphorus Level 3.5, Magnesium Level 2.1, Total Bilirubin 2.0H, Direct Bilirubin 0.9H, Aspartate Amino Transf (AST/ SGOT) 40H, Alanine Aminotransferase (ALT/SGPT) 14, Alkaline Phosphatase 513H, C- Reactive Protein, Quantitative 11.2H, Total Protein 5.7L, Albumin 1.7L, Globulin 4.0, Albumin/Globulin Ratio 0.4L, Amylase Level 18L, Lipase 51L Height (Feet): 5 Height (Inches): 0.00 Weight (Pounds): 112 General Appearance: confused Respiratory/Chest: decreased breath sounds Abdomen: soft Edema: trace edema Johnny Sinha MD Oct 01, 2017 11:31
--- NOTE | 2017-10-01 12:16 | Infectious Diseases Prog Note ---
Assessment/Plan Assessment/Plan -- The patient is a 76-year-old female w Fever, SP Leukocytosis , improving- likely cholangitis -Cdiff neg -09/22 sp cx C.a lbicans, Bcx NTD -u/a wbc 10-15, nit neg, leuk +2; ucx >100k C. albicans -Fungal sp cx p Community-acquired vs healthcare-associated pneumonia (the patient has been recently hospitalized in [facility]). -now ARDS- r/o fungal PNA -CXR 09/29: - cxray 09/26 : no changes -CT chest 09/23: Diffuse extensive pulmonary parenchymal disease, with dense consolidation interspersed with groundglass opacities. Appearance nonspecific, possibilities include pulmonary edema, pneumonia, ARDS, hemorrhage. Bilateral pleural effusions, left greater than right. Diffuse edema of the subcutaneous fat, Multiple small thyroid nodules. All apparently under 1 cm, no further follow-up necessary. Degenerative changes of the shoulders 09/19 xray : Unchanged diffuse interstitial and airspace edema, -CrAg serum, U legionell ag neg; Asp ag, Cocci, fungitell p Probable influenza despite of negative influenza screening test, s/p Rx Abnormal liver function tests, ALP>>> AST -2ry to sludged CBDcholangitis, obstruction on CBD; AST/ALT normal now, ALP improving -EUS 09/30: 1. Dilated common bile duct with lots of sludge in the distal common bile duct, most probably explanation for abnormal liver function tests. 2. Large ascites -Abd US 09/29: Cholelithiasis, better demonstrated than on prior exam. Thickened gallbladder wall could indicate acute cholecystitis. However, gallbladder wall thickening also evident on prior study of 09/19/2017, after which a hepatobiliary scan was negative, so suspect this is more likely due to hemodynamic derangements given presence of ascites and pleural fluid. Extrahepatic biliary ductal dilatation, equivocally slightly increased from 2017. Downstream obstruction not excludable. Coarsened hepatic echotexture, consistent with hepatocellular disease, nonspecific as regards etiology. Equivocal hepatic surface micronodularity, could indicate early cirrhotic changes. -HIDA scan: Negative for evidence of cystic duct obstruction/acute cholecystitis. Common bile duct is demonstrated be patent, but emptying into the duodenum is delayed, not seen until 2 hours. Significance of this is uncertain. MRCP or CT scanning may be useful to clarify -CT abd/p 09/23: Evidence of anasarca, with diffuse edema subcutaneous and mesenteric fat, bilateral pleural effusions, possible pulmonary edema, trace ascites. Densities within the gallbladder, probably reflecting tiny gallstones, although these are not identifiable on recent ultrasound. Gallbladder wall edema is probably a manifestation of anasarca, as recent hepatobiliary scan was negative for acute cholecystitis. Old ununited fracture deformities of the right pelvis. Bilateral chronic appearing hip dislocations Ultrasound of the abdomen : Gallbladder sludge. No definite stones. 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 -R/o HIT. Abx and protonix could be also be contributors. VDRF / ARDS HTN GERD History of auditory hallucination. Depression. Anemia. Rheumatoid arthritis. History of gastritis. PLAN: -Continue Amikacin # 9/10(abx d#13/14) and flagyl # 9/10 for possible cholangitis and IV Micafungin #2 for fungal coverage 09/25 sp Fluconazole #3 (held due to rise ALP) 09/23 SP Meropenem #5, PO Vanco #2 09/21 SP tamiflu #10 -f/u Asp ag, fungitell, Cocci ab, fungal sp cx -Plan for ERCP and stent placement per GI Monitor CBC.; Trend WBC Monitor BMP.; Trend LFTs Monitor chest x-ray -GI, heme onc f/u Subjective Allergies: Coded Allergies: No Known Allergies (Verified , 11/18/08) Subjective afebrile in >72hrs cx neg leukocytosis resolved s/p EUS- sludge CBD Objective Vital Signs Last 24 Hour Vital Signs Date Time Temp Pulse Resp B/P (MAP) Pulse Ox O2 Delivery O2 Flow Rate FiO2 10/01/17 10:55 99 21 45 10/01/17 09:00 89 19 115/62 95 Mechanical Ventilator 50 10/01/17 08:45 94 23 45 10/01/17 08:19 84 21 95 10/01/17 08:18 207.0 86 18 96 10/01/17 08:00 98.2 92 20 117/63 96 Mechanical Ventilator 50 98.2 10/01/17 08:00 89 10/01/17 08:00 50 10/01/17 07:00 93 20 115/56 95 Mechanical Ventilator 50 10/01/17 06:41 94 25 45 10/01/17 06:00 84 21 120/69 95 Mechanical Ventilator 50 10/01/17 05:50 94 128/65 10/01/17 05:02 88 19 45 10/01/17 05:00 86 22 128/65 99 Mechanical Ventilator 50 10/01/17 04:00 98.8 93 20 119/61 96 Mechanical Ventilator 50 98.8 10/01/17 04:00 93 10/01/17 04:00 50 10/01/17 03:00 92 24 108/41 96 Mechanical Ventilator 50 10/01/17 02:50 91 20 45 10/01/17 02:00 92 24 118/60 96 Mechanical Ventilator 50 10/01/17 01:03 88 23 45 10/01/17 01:00 98.8 88 21 109/63 96 Mechanical Ventilator 50 98.8 10/01/17 00:00 94 10/01/17 00:00 94 20 125/60 94 Mechanical Ventilator 50 10/01/17 00:00 50 09/30/17 23:01 92 119/59 09/30/17 23:00 93 20 124/57 94 Mechanical Ventilator 50 09/30/17 22:42 90 18 45 09/30/17 22:00 92 19 119/59 94 Mechanical Ventilator 50 09/30/17 21:29 80 20 45 09/30/17 21:00 95 18 120/61 94 Mechanical Ventilator 50 09/30/17 20:00 94 09/30/17 20:00 98.2 94 23 116/60 94 Mechanical Ventilator 50 98.2 09/30/17 20:00 50 09/30/17 19:18 79 21 45 09/30/17 19:00 87 25 119/65 97 Mechanical Ventilator 50 09/30/17 18:00 90 27 122/63 98 Mechanical Ventilator 50 09/30/17 17:00 89 26 121/58 97 Mechanical Ventilator 50 09/30/17 16:33 84 33 50 18 16:00 80 09/30/17 16:00 50 09/30/17 16:00 98.9 85 28 118/60 98 Mechanical Ventilator 50 98.9 09/30/17 15:03 86 33 50 09/30/17 15:00 87 27 120/65 96 Mechanical Ventilator 50 09/30/17 14:00 92 27 119/59 97 Mechanical Ventilator 50 09/30/17 13:29 89 113/63 09/30/17 13:00 95 27 127/62 99 Mechanical Ventilator 50 09/30/17 12:51 89 33 60 Height (Feet): 5 Height (Inches): 0.00 Weight (Pounds): 112 Objective General Appearance: lethargic, thin EENT: normal ENT inspection Neck: non-tender, normal alignment, supple Cardiovascular: normal peripheral pulses, normal rate, regular rhythm, no gallop/murmur, no JVD Respiratory/Chest: Mechanical vent; respiratory distress, crackles/rales, rhonchi - bilaterally, expiratory wheezing Abdomen: normal bowel sounds, non tender, soft, no organomegaly, no mass Skin: normal pigmentation, warm/dry Laboratory Tests Test 10/01/17 05:00 White Blood Count 9.8 K/UL (4.8-10.8) Red Blood Count 3.41 M/UL (4.20-5.40) L Hemoglobin 11.1 G/DL (12.0-16.0) L Hematocrit 34.0 % (37.0-47.0) L Mean Corpuscular Volume 99 FL (80-99) Mean Corpuscular Hemoglobin 32.5 PG (27.0-31.0) H Mean Corpuscular Hemoglobin Concent 32.7 G/DL (32.0-36.0) Red Cell Distribution Width 21.7 % (11.6-14.8) H Platelet Count 95 K/UL (150-450) L Mean Platelet Volume 12.4 FL (6.5-10.1) H Neutrophils (%) (Auto) % (45.0-75.0) Lymphocytes (%) (Auto) % (20.0-45.0) Monocytes (%) (Auto) % (1.0-10.0) Eosinophils (%) (Auto) % (0.0-3.0) Basophils (%) (Auto) % (0.0-2.0) Differential Total Cells Counted 100 Neutrophils % (Manual) 83 % (45-75) H Lymphocytes % (Manual) 12 % (20-45) L Monocytes % (Manual) 4 % (1-10) Eosinophils % (Manual) 1 % (0-3) Basophils % (Manual) 0 % (0-2) Band Neutrophils 0 % (0-8) Platelet Estimate Adequate Platelet Morphology Normal Anisocytosis 2+ Sodium Level 153 MMOL/L (136-145) H Potassium Level 3.3 MMOL/L (3.5-5.1) L Chloride Level 117 MMOL/L (98-107) H Carbon Dioxide Level 26 MMOL/L (21-32) Anion Gap 10 mmol/L (5-15) Blood Urea Nitrogen 38 mg/dL (7-18) H Creatinine 0.9 MG/DL (0.55-1.30) Estimat Glomerular Filtration Rate mL/min (>60) Glucose Level 122 MG/DL (74-106) H Calcium Level 7.7 MG/DL (8.5-10.1) L Phosphorus Level 3.5 MG/DL (2.5-4.9) Magnesium Level 2.1 MG/DL (1.8-2.4) Total Bilirubin 2.0 MG/DL (0.2-1.0) H Direct Bilirubin 0.9 MG/DL (0.0-0.3) H Aspartate Amino Transf (AST/SGOT) 40 U/L (15-37) H Alanine Aminotransferase (ALT/SGPT) 14 U/L (12-78) Alkaline Phosphatase 513 U/L (46-116) H C-Reactive Protein, Quantitative 11.2 mg/dL (0.00-0.90) H Total Protein 5.7 G/DL (6.4-8.2) L Albumin 1.7 G/DL (3.4-5.0) L Globulin 4.0 g/dL Albumin/Globulin Ratio 0.4 (1.0-2.7) L Amylase Level 18 U/L (25-115) L Lipase 51 U/L (73-393) L Current Medications Medications (Trade) Dose Ordered Sig/Hermes Route PRN Reason Start Time Stop Time Status Last Admin Dose Admin Acetaminophen (Tylenol) 650 mg EVERY 6 HOURS PRN NG Fever/Headache/Mild Pain 09/13/17 20:45 10/13/17 20:44 09/27/17 16:49 Albuterol/ Ipratropium (Albuterol/ Ipratropium) 3 ml Q4H PRN HHN Shortness of Breath 09/28/17 10:15 10/03/17 10:14 09/28/17 13:00 Amikacin Protocol (Amikacin pharmacy to dose) 1 ea DAILY PRN MISC Per rx protocol 09/23/17 11:45 10/23/17 11:44 Amikacin Sulfate 500 mg/Sodium Chloride 112 ml @ 112 mls/hr Q36H IV 09/25/17 11:30 10/03/17 11:29 09/29/17 23:16 Clonidine HCl (Catapres Tab) 0.1 mg Q4H PRN ORAL SBP>160 UNRELIEVED BY HYDRALAZ 09/16/17 16:45 10/15/17 16:59 Dextrose (Dextrose 50%) STAT PRN IV Hypoglycemia 09/13/17 15:00 10/13/17 14:59 Diltiazem HCl (Cardizem) 30 mg EVERY 8 HOURS NG 09/18/17 22:00 10/18/17 21:59 10/01/17 05:50 Insulin Aspart (NovoLOG) EVERY 6 HOURS SUBQ 09/17/17 12:00 10/17/17 11:59 10/01/17 05:58 Ketotifen Fumarate (Zatidor) 1 drop DAILY BOTH EYES 09/26/17 09:00 10/25/17 08:59 10/01/17 08:18 Micafungin Sodium 100 mg/Sodium Chloride 110 ml @ 110 mls/hr Q24H IVPB 09/30/17 13:00 10/07/17 12:59 09/30/17 13:59 Pantoprazole (Protonix) 40 mg DAILY ORAL 09/28/17 09:00 10/28/17 08:59 10/01/17 08:18 Polyethylene Glycol (Miralax) 17 gm BEDTIME ORAL 09/14/17 21:00 10/14/17 20:59 09/30/17 20:36 Potassium Chloride 10 meq/ Dextrose/Sodium Chloride 1,005 ml @ 100 mls/hr Q10H3M IV 09/30/17 18:00 10/30/17 17:59 10/01/17 05:13 Madelyn Frey M.D. Oct 01, 2017 12:16
--- NOTE | 2017-10-01 12:30 | Internal Med Progress Note ---
Subjective Date of Service: Oct 01, 2017 Physician Name Noah Bowens Attending Physician Jesus Barahona MD Current Medications Medications (Trade) Dose Ordered Sig/Hermes Route PRN Reason Start Time Stop Time Status Last Admin Dose Admin Acetaminophen (Tylenol) 650 mg EVERY 6 HOURS PRN NG Fever/Headache/Mild Pain 09/13/17 20:45 10/13/17 20:44 09/27/17 16:49 Albuterol/ Ipratropium (Albuterol/ Ipratropium) 3 ml Q4H PRN HHN Shortness of Breath 09/28/17 10:15 10/03/17 10:14 09/28/17 13:00 Amikacin Protocol (Amikacin pharmacy to dose) 1 ea DAILY PRN MISC Per rx protocol 09/23/17 11:45 10/23/17 11:44 Amikacin Sulfate 500 mg/Sodium Chloride 112 ml @ 112 mls/hr Q36H IV 09/25/17 11:30 10/03/17 11:29 09/29/17 23:16 Clonidine HCl (Catapres Tab) 0.1 mg Q4H PRN ORAL SBP>160 UNRELIEVED BY HYDRALAZ 09/16/17 16:45 10/15/17 16:59 Dextrose (Dextrose 50%) STAT PRN IV Hypoglycemia 09/13/17 15:00 10/13/17 14:59 Diltiazem HCl (Cardizem) 30 mg EVERY 8 HOURS NG 09/18/17 22:00 10/18/17 21:59 10/01/17 05:50 Insulin Aspart (NovoLOG) EVERY 6 HOURS SUBQ 09/17/17 12:00 10/17/17 11:59 10/01/17 05:58 Ketotifen Fumarate (Zatidor) 1 drop DAILY BOTH EYES 09/26/17 09:00 10/25/17 08:59 10/01/17 08:18 Micafungin Sodium 100 mg/Sodium Chloride 110 ml @ 110 mls/hr Q24H IVPB 09/30/17 13:00 10/07/17 12:59 09/30/17 13:59 Pantoprazole (Protonix) 40 mg DAILY ORAL 09/28/17 09:00 10/28/17 08:59 10/01/17 08:18 Polyethylene Glycol (Miralax) 17 gm BEDTIME ORAL 09/14/17 21:00 10/14/17 20:59 09/30/17 20:36 Potassium Chloride 10 meq/ Dextrose/Sodium Chloride 1,005 ml @ 100 mls/hr Q10H3M IV 09/30/17 18:00 10/30/17 17:59 10/01/17 05:13 Allergies: Coded Allergies: No Known Allergies (Verified , 11/18/08) Subjective 76 YO F admitted with Shortness of breath, now respiratory failure. Intubated and sedated. Cover for Internal Med-Dr. Barahona. ICU . Scheduled for ERCP today. Objective Last Vital Signs Date Time Temp Pulse Resp B/P (MAP) Pulse Ox O2 Delivery O2 Flow Rate FiO2 10/01/17 10:55 99 21 45 10/01/17 09:00 115/62 95 Mechanical Ventilator 10/01/17 08:18 207.0 Laboratory Tests Test 10/01/17 05:00 White Blood Count 9.8 K/UL (4.8-10.8) Red Blood Count 3.41 M/UL (4.20-5.40) L Hemoglobin 11.1 G/DL (12.0-16.0) L Hematocrit 34.0 % (37.0-47.0) L Mean Corpuscular Volume 99 FL (80-99) Mean Corpuscular Hemoglobin 32.5 PG (27.0-31.0) H Mean Corpuscular Hemoglobin Concent 32.7 G/DL (32.0-36.0) Red Cell Distribution Width 21.7 % (11.6-14.8) H Platelet Count 95 K/UL (150-450) L Mean Platelet Volume 12.4 FL (6.5-10.1) H Neutrophils (%) (Auto) % (45.0-75.0) Lymphocytes (%) (Auto) % (20.0-45.0) Monocytes (%) (Auto) % (1.0-10.0) Eosinophils (%) (Auto) % (0.0-3.0) Basophils (%) (Auto) % (0.0-2.0) Differential Total Cells Counted 100 Neutrophils % (Manual) 83 % (45-75) H Lymphocytes % (Manual) 12 % (20-45) L Monocytes % (Manual) 4 % (1-10) Eosinophils % (Manual) 1 % (0-3) Basophils % (Manual) 0 % (0-2) Band Neutrophils 0 % (0-8) Platelet Estimate Adequate Platelet Morphology Normal Anisocytosis 2+ Sodium Level 153 MMOL/L (136-145) H Potassium Level 3.3 MMOL/L (3.5-5.1) L Chloride Level 117 MMOL/L (98-107) H Carbon Dioxide Level 26 MMOL/L (21-32) Anion Gap 10 mmol/L (5-15) Blood Urea Nitrogen 38 mg/dL (7-18) H Creatinine 0.9 MG/DL (0.55-1.30) Estimat Glomerular Filtration Rate mL/min (>60) Glucose Level 122 MG/DL (74-106) H Calcium Level 7.7 MG/DL (8.5-10.1) L Phosphorus Level 3.5 MG/DL (2.5-4.9) Magnesium Level 2.1 MG/DL (1.8-2.4) Total Bilirubin 2.0 MG/DL (0.2-1.0) H Direct Bilirubin 0.9 MG/DL (0.0-0.3) H Aspartate Amino Transf (AST/SGOT) 40 U/L (15-37) H Alanine Aminotransferase (ALT/SGPT) 14 U/L (12-78) Alkaline Phosphatase 513 U/L (46-116) H C-Reactive Protein, Quantitative 11.2 mg/dL (0.00-0.90) H Total Protein 5.7 G/DL (6.4-8.2) L Albumin 1.7 G/DL (3.4-5.0) L Globulin 4.0 g/dL Albumin/Globulin Ratio 0.4 (1.0-2.7) L Amylase Level 18 U/L (25-115) L Lipase 51 U/L (73-393) L Intake and Output 09/30/17 10/01/17 19:00 07:00 Intake Total 910 ml 1200 ml Output Total 550 ml 360 ml Balance 360 ml 840 ml IV Total 910 ml 1200 ml Output Urine Total 550 ml 360 ml # Bowel Movements 2 4 Objective General Appearance: lethargic, thin EENT: normal ENT inspection Neck: non-tender, normal alignment, supple Cardiovascular: normal peripheral pulses, normal rate, regular rhythm, no gallop/murmur, no JVD Respiratory/Chest: Mechanical vent; respiratory distress, crackles/rales, rhonchi - bilaterally, expiratory wheezing Abdomen: normal bowel sounds, non tender, soft, no organomegaly, no mass Skin: normal pigmentation, warm/dry Assessment/Plan Problem List: (1) HTN (hypertension) Assessment & Plan: Currently hypotensive. (2) Arthritis, rheumatoid (3) Parkinsons disease (4) Aplastic anemia (5) GERD (gastroesophageal reflux disease) (6) Respiratory failure Assessment & Plan: May require trach. Cont vent per pulmonary (7) Pneumonia (8) Dyspnea (9) Sepsis Assessment & Plan: Blood culture neg. Continue Amikacin, micafungin and flagyl per ID (10) ARDS (adult respiratory distress syndrome) Assessment & Plan: See pulmonary note (11) UTI (urinary tract infection) Assessment & Plan: E.Coli. Continue abx per ID (12) Anemia Assessment & Plan: S/P Transfusion 2 units PRBC (13) Diabetes mellitus, type II Assessment & Plan: Continue novolog sliding scale (14) Leukocytosis Assessment & Plan: Worsening. See ID note. Start amikacin and fluconazole (15) Thrombocytopenia Status: not improved NOAH BWOENS Oct 01, 2017 12:29
--- NOTE | 2017-10-01 12:39 | General Progress Note ---
Progress Note Progress Note Surgery: had ERCP today. pending results. no acute events. seems that she is slowly improving but still prognosis guarded. platelets slowly improving. vent settings improved. cxr reviewed. if continues to improve, will plan for trach early next week. thank you Adryan Echevarria Oct 01, 2017 12:39
--- NOTE | 2017-10-01 12:39 | Endoscopy Procedure Note ---
Endoscopy Procedure Note General Indication for Procedure: cbd stones Procedures Performed: ERCP Operative Findings/Diagnosis: conrad ampullary diverticulum Specimen: none Pt Tolerated Procedure Well: Yes Estimated Blood Loss: none Anesthesia Anesthesiologist: kitty Anesthesia: MAC Inserted Devices Implant(s) used?: No GI Core Measures 50 yrs or older w/o bx or poly: Not Applicable 10yrs. F/U not recommended: Not Applicable KIT GONZALEZ Oct 01, 2017 12:39
[2017-10-01] MEDS: Micafungin 100 MG in NS 110 ML IVPB SCH (13:17)
[2017-10-01] MEDS ORDERED: fentaNYL 100 mcg/2 mL IV PRN (13:45)
[2017-10-01] MEDS ORDERED: Atropine Inj 1mg/10ml Syr IV PRN (13:45)
[2017-10-01] MEDS ORDERED: DiphenhydrAMINE 50mg/ml Inj IVP PRN (13:45)
--- NOTE | 2017-10-01 13:45 | Immediate Post-Op Evaluation ---
Immediate Post-Op Evalulation Immediate Post-Op Evalulation Procedure: ercp Date of Evaluation: Oct 01, 2017 Time of Evaluation: 13:04 IV Fluids: 500ml 0.9ns Blood Products: none Estimated Blood Loss: negligible Blood Pressure Systolic: 114 Blood Pressure Diastolic: 77 Pulse Rate: 99 Respiratory Rate: 18 O2 Sat by Pulse Oximetry: 97 Temperature (Fahrenheit): 98.7 Pain Score (1-10): 0 Nausea: No Vomiting: No Complications none Patient Status: awake, reacts, patent Hydration Status: adequate Drug: CRISTIAN Garza Oct 01, 2017 13:44
--- NOTE | 2017-10-01 13:47 | 48 Hour Post Anesthesia Eval ---
Post Anesthesia Evaluation Procedure: ercp Date of Evaluation: Oct 01, 2017 Time of Evaluation: 13:06 Blood Pressure Systolic: 111 0: 77 Pulse Rate: 99 Respiratory Rate: 18 Temperature (Fahrenheit): 97.8 O2 Sat by Pulse Oximetry: 97 Airway: patent Nausea: No Vomiting: No Pain Intensity: 0 Hydration Status: adequate Cardiopulmonary Status: stable Mental Status/LOC: patient returned to baseline Post-Anesthesia Complications: none Follow-up care needed: N/A CRISTIAN MUNOZ Oct 01, 2017 13:46
--- NOTE | 2017-10-01 17:38 | Cardiac Electrophysiology PN ---
Assessment/Plan Assessment/Plan 1. Respiratory failure, due to underlying ARDS , pneumonia. Intubated on the vent. Already ruled out for myocardial infarction. Now on 50% Fio2 with PEEP of 5. Tracheostomy on Friday 2. Left bundle-branch block. No evidence of advanced heart block. 3. HTN and diastolic dysfunction. On Cardizem 30 q8 hr. Echo EF 55% 4. Hypernatremia and azotemia. F/U per Dr Mayer 5. Pneumonia and sepsis on IV antibiotics by Dr. Hunter. 6. Psychiatric disorder. 7. Anasarca. 3rd spacing. 8. Anemia with Hb 6.6 s/p PRBC. CT chest abdomen and pelvis without contrast no acute finding S/P EGD by Dr Walton 9. Severe thrombocytopenia. S/P platelet transfusion 10. Abnormal LFT, Biliary obstruction, possible cholangitis. S/P ERCP today MICHELLE RN Subjective Subjective Intubated on Vent in ICU. In sinus tach 110.Had ERCP attempt today by Dr. Walton Objective Last 24 Hour Vital Signs Date Time Temp Pulse Resp B/P (MAP) Pulse Ox O2 Delivery O2 Flow Rate FiO2 10/01/17 17:08 85 18 60 10/01/17 16:00 98.3 90 14 109/60 94 Mechanical Ventilator 70 98.3 10/01/17 16:00 70 10/01/17 16:00 82 10/01/17 15:00 87 19 112/63 98 Mechanical Ventilator 70 10/01/17 14:56 82 18 60 10/01/17 14:00 89 19 115/65 96 Mechanical Ventilator 70 10/01/17 13:46 208.0 99 18 97 10/01/17 13:45 209.7 99 18 97 10/01/17 13:06 90 100/55 10/01/17 13:00 70 10/01/17 13:00 98.7 90 14 100/55 94 Mechanical Ventilator 70 98.7 10/01/17 12:58 70 10/01/17 12:53 91 18 60 10/01/17 12:00 87 10/01/17 11:00 90 19 112/63 96 Mechanical Ventilator 50 10/01/17 10:55 99 21 45 10/01/17 10:00 89 19 110/65 95 Mechanical Ventilator 50 10/01/17 09:00 89 19 115/62 95 Mechanical Ventilator 50 10/01/17 08:45 94 23 45 10/01/17 08:19 84 21 95 10/01/17 08:18 207.0 86 18 96 10/01/17 08:00 98.2 92 20 117/63 96 Mechanical Ventilator 50 98.2 10/01/17 08:00 89 10/01/17 08:00 50 10/01/17 07:00 93 20 115/56 95 Mechanical Ventilator 50 10/01/17 06:41 94 25 45 10/01/17 06:00 84 21 120/69 95 Mechanical Ventilator 50 10/01/17 05:50 94 128/65 10/01/17 05:02 88 19 45 10/01/17 05:00 86 22 128/65 99 Mechanical Ventilator 50 10/01/17 04:00 98.8 93 20 119/61 96 Mechanical Ventilator 50 98.8 10/01/17 04:00 93 10/01/17 04:00 50 10/01/17 03:00 92 24 108/41 96 Mechanical Ventilator 50 10/01/17 02:50 91 20 45 10/01/17 02:00 92 24 118/60 96 Mechanical Ventilator 50 10/01/17 01:03 88 23 45 10/01/17 01:00 98.8 88 21 109/63 96 Mechanical Ventilator 50 98.8 10/01/17 00:00 94 10/01/17 00:00 94 20 125/60 94 Mechanical Ventilator 50 10/01/17 00:00 50 09/30/17 23:01 92 119/59 09/30/17 23:00 93 20 124/57 94 Mechanical Ventilator 50 09/30/17 22:42 90 18 45 09/30/17 22:00 92 19 119/59 94 Mechanical Ventilator 50 09/30/17 21:29 80 20 45 09/30/17 21:00 95 18 120/61 94 Mechanical Ventilator 50 09/30/17 20:00 94 09/30/17 20:00 98.2 94 23 116/60 94 Mechanical Ventilator 50 98.2 09/30/17 20:00 50 09/30/17 19:18 79 21 45 09/30/17 19:00 87 25 119/65 97 Mechanical Ventilator 50 09/30/17 18:00 90 27 122/63 98 Mechanical Ventilator 50 Intake and Output 09/30/17 10/01/17 19:00 07:00 Intake Total 910 ml 1200 ml Output Total 550 ml 360 ml Balance 360 ml 840 ml IV Total 910 ml 1200 ml Output Urine Total 550 ml 360 ml # Bowel Movements 2 4 Laboratory Tests Test 10/01/17 05:00 White Blood Count 9.8 K/UL (4.8-10.8) Red Blood Count 3.41 M/UL (4.20-5.40) L Hemoglobin 11.1 G/DL (12.0-16.0) L Hematocrit 34.0 % (37.0-47.0) L Mean Corpuscular Volume 99 FL (80-99) Mean Corpuscular Hemoglobin 32.5 PG (27.0-31.0) H Mean Corpuscular Hemoglobin Concent 32.7 G/DL (32.0-36.0) Red Cell Distribution Width 21.7 % (11.6-14.8) H Platelet Count 95 K/UL (150-450) L Mean Platelet Volume 12.4 FL (6.5-10.1) H Neutrophils (%) (Auto) % (45.0-75.0) Lymphocytes (%) (Auto) % (20.0-45.0) Monocytes (%) (Auto) % (1.0-10.0) Eosinophils (%) (Auto) % (0.0-3.0) Basophils (%) (Auto) % (0.0-2.0) Differential Total Cells Counted 100 Neutrophils % (Manual) 83 % (45-75) H Lymphocytes % (Manual) 12 % (20-45) L Monocytes % (Manual) 4 % (1-10) Eosinophils % (Manual) 1 % (0-3) Basophils % (Manual) 0 % (0-2) Band Neutrophils 0 % (0-8) Platelet Estimate Adequate Platelet Morphology Normal Anisocytosis 2+ Sodium Level 153 MMOL/L (136-145) H Potassium Level 3.3 MMOL/L (3.5-5.1) L Chloride Level 117 MMOL/L (98-107) H Carbon Dioxide Level 26 MMOL/L (21-32) Anion Gap 10 mmol/L (5-15) Blood Urea Nitrogen 38 mg/dL (7-18) H Creatinine 0.9 MG/DL (0.55-1.30) Estimat Glomerular Filtration Rate mL/min (>60) Glucose Level 122 MG/DL (74-106) H Calcium Level 7.7 MG/DL (8.5-10.1) L Phosphorus Level 3.5 MG/DL (2.5-4.9) Magnesium Level 2.1 MG/DL (1.8-2.4) Total Bilirubin 2.0 MG/DL (0.2-1.0) H Direct Bilirubin 0.9 MG/DL (0.0-0.3) H Aspartate Amino Transf (AST/SGOT) 40 U/L (15-37) H Alanine Aminotransferase (ALT/SGPT) 14 U/L (12-78) Alkaline Phosphatase 513 U/L (46-116) H C-Reactive Protein, Quantitative 11.2 mg/dL (0.00-0.90) H Total Protein 5.7 G/DL (6.4-8.2) L Albumin 1.7 G/DL (3.4-5.0) L Globulin 4.0 g/dL Albumin/Globulin Ratio 0.4 (1.0-2.7) L Amylase Level 18 U/L (25-115) L Lipase 51 U/L (73-393) L Objective HEAD AND NECK: Orally intubated. NG tube in LUNGS: Coarse rhonchi bilaterally CARDIOVASCULAR: Tachy S1 and S2.No murmur ABDOMEN: Soft. EXTREMITIES: 1+ pitting edema. ROLF OLIVIA Oct 01, 2017 17:38
--- NOTE | 2017-10-01 19:31 | Procedure Note ---
DATE OF PROCEDURE: 10/01/2017 SURGEON: Franklin Walton M.D. REFERRING PHYSICIAN: Yair Encinas M.D. PROCEDURE: ERCP with stent placement. ANESTHESIA: Per Dr. Hilario. INSTRUMENT: Olympus ERCP scope. INDICATION: Common bile duct stone. The procedure, risks, benefits, and possible consequences, including hemorrhage, aspiration, perforation and infection, and alternative treatments, were explained to the patient/legal guardian by Dr. Franklin Walton and the patient/legal guardian understood and accepted these risks. DESCRIPTION OF PROCEDURE: After informed consent was obtained and the patient was adequately sedated, Olympus ERCP scope was advanced from mouth into the second portion of the duodenum. Ampulla was seen hiding in the duodenal diverticulum. We were able to pull the ampulla out into the lumen. This was a very challenging case because as soon as we intubated the patient with the scope, the patient had problem with breathing. Even though the patient was intubated, it was not working. So, Anesthesia was bagging the patient the whole time. Also this procedure was done in the supine given that we could not place the patient in prone position. We tried different catheters and different positions trying to get into common bile duct. We cannulated the pancreatic duct multiple times. We did not inject the pancreatic duct. At the end, we decided to put a pancreatic stent 5 cm x 5-Georgian stent was successfully placed in the pancreatic duct to protect it. Then, we attempted again to get to the common bile duct, but still was not successful. So, we decided at this time to call it a day. SUMMARY OF FINDINGS: 1. Duodenal diverticulum. 2. Difficult challenging case was done in supine and only able to cannulate the pancreatic duct and place the stent in the pancreatic duct for protection. RECOMMENDATIONS: The patient's numbers are looking a little bit better today and liver enzymes are improving. We recommend monitoring liver function tests again. Hopefully, if the liver enzymes continue to get better, we will consider doing it at a later time, but if the liver enzymes start to go up again and the patient shows signs and symptoms of cholangitis, we recommend repeat ERCP, another attempt, sooner. I want to thank Dr. Yair Encinas for this kind referral. Franklin Deniz Walton DR: MISTY JOB#: [id number] CC: Yair Encinas M.D.; Fax#: [phone] [facility]
[2017-10-01] MEDS: Miralax 17gm pkt ORAL SCH (21:00)
--- NOTE | 2017-10-01 22:39 | General Progress Note ---
Assessment/Plan Problem List: (1) Arthritis, rheumatoid ICD Codes: M06.9 - Rheumatoid arthritis, unspecified SNOMED: 10326040 (2) Aspiration pneumonia ICD Codes: J69.0 - Pneumonitis due to inhalation of food and vomit SNOMED: 073698626 (3) Diabetes mellitus ICD Codes: E11.9 - Type 2 diabetes mellitus without complications SNOMED: 52837471 (4) ARDS (adult respiratory distress syndrome) ICD Codes: J80 - Acute respiratory distress syndrome SNOMED: 45564023 (5) Transaminitis ICD Codes: R74.0 - Nonspecific elevation of levels of transaminase and lactic acid dehydrogenase [LDH] SNOMED: 642962448, 497342167 (6) Dyspnea ICD Codes: R06.00 - Dyspnea, unspecified SNOMED: 136335290 (7) Parkinsons disease ICD Codes: G20 - Parkinson's disease SNOMED: 36723723 (8) Sepsis ICD Codes: A41.9 - Sepsis, unspecified organism SNOMED: 11962696 (9) GERD (gastroesophageal reflux disease) ICD Codes: K21.9 - Gastro-esophageal reflux disease without esophagitis SNOMED: 188041300 (10) Aplastic anemia ICD Codes: D61.9 - Aplastic anemia, unspecified SNOMED: 677741840 (11) Pneumonia ICD Codes: J18.9 - Pneumonia, unspecified organism SNOMED: 776957934 (12) HTN (hypertension) ICD Codes: I10 - Essential (primary) hypertension SNOMED: 87166565 Assessment/Plan Encephalopathy, agitation, psychotic disorder. -cont current meds -ativan prn Subjective Date patient seen: Oct 01, 2017 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: Reports: anxiety Allergies: Coded Allergies: No Known Allergies (Verified , 11/18/08) Objective Last 24 Hour Vital Signs Date Time Temp Pulse Resp B/P (MAP) Pulse Ox O2 Delivery O2 Flow Rate FiO2 10/01/17 21:15 91 19 60 10/01/17 21:00 95 21 121/61 98 Mechanical Ventilator 60 10/01/17 20:00 95 10/01/17 20:00 60 10/01/17 20:00 95 20 123/64 97 Mechanical Ventilator 60 10/01/17 19:25 87 20 60 10/01/17 19:00 91 17 108/67 98 Mechanical Ventilator 60 10/01/17 18:00 87 19 110/60 97 Mechanical Ventilator 60 10/01/17 17:08 85 18 60 10/01/17 17:00 85 16 111/62 98 Mechanical Ventilator 70 10/01/17 16:00 98.3 90 14 109/60 94 Mechanical Ventilator 70 98.3 10/01/17 16:00 70 10/01/17 16:00 82 10/01/17 15:00 87 19 112/63 98 Mechanical Ventilator 70 10/01/17 14:56 82 18 60 10/01/17 14:00 89 19 115/65 96 Mechanical Ventilator 70 10/01/17 13:46 208.0 99 18 97 10/01/17 13:45 209.7 99 18 97 10/01/17 13:06 90 100/55 10/01/17 13:00 70 10/01/17 13:00 98.7 90 14 100/55 94 Mechanical Ventilator 70 98.7 10/01/17 12:58 70 10/01/17 12:53 91 18 60 10/01/17 12:00 87 10/01/17 11:00 90 19 112/63 96 Mechanical Ventilator 50 10/01/17 10:55 99 21 45 10/01/17 10:00 89 19 110/65 95 Mechanical Ventilator 50 10/01/17 09:00 89 19 115/62 95 Mechanical Ventilator 50 10/01/17 08:45 94 23 45 10/01/17 08:19 84 21 95 10/01/17 08:18 207.0 86 18 96 10/01/17 08:00 98.2 92 20 117/63 96 Mechanical Ventilator 50 98.2 10/01/17 08:00 89 10/01/17 08:00 50 10/01/17 07:00 93 20 115/56 95 Mechanical Ventilator 50 10/01/17 06:41 94 25 45 10/01/17 06:00 84 21 120/69 95 Mechanical Ventilator 50 10/01/17 05:50 94 128/65 10/01/17 05:02 88 19 45 10/01/17 05:00 86 22 128/65 99 Mechanical Ventilator 50 10/01/17 04:00 98.8 93 20 119/61 96 Mechanical Ventilator 50 98.8 10/01/17 04:00 93 10/01/17 04:00 50 10/01/17 03:00 92 24 108/41 96 Mechanical Ventilator 50 10/01/17 02:50 91 20 45 10/01/17 02:00 92 24 118/60 96 Mechanical Ventilator 50 10/01/17 01:03 88 23 45 10/01/17 01:00 98.8 88 21 109/63 96 Mechanical Ventilator 50 98.8 10/01/17 00:00 94 10/01/17 00:00 94 20 125/60 94 Mechanical Ventilator 50 10/01/17 00:00 50 09/30/17 23:01 92 119/59 09/30/17 23:00 93 20 124/57 94 Mechanical Ventilator 50 09/30/17 22:42 90 18 45 Intake and Output 09/30/17 10/01/17 19:00 07:00 Intake Total 910 ml 1200 ml Output Total 550 ml 360 ml Balance 360 ml 840 ml IV Total 910 ml 1200 ml Output Urine Total 550 ml 360 ml # Bowel Movements 2 4 Laboratory Tests 10/01/17 05:00: White Blood Count 9.8, Red Blood Count 3.41L, Hemoglobin 11.1L, Hematocrit 34.0L , Mean Corpuscular Volume 99, Mean Corpuscular Hemoglobin 32.5H, Mean Corpuscular Hemoglobin Concent 32.7, Red Cell Distribution Width 21.7H, Platelet Count 95L, Mean Platelet Volume 12.4H, Neutrophils (%) (Auto) , Lymphocytes (%) (Auto) , Monocytes (%) (Auto) , Eosinophils (%) (Auto) , Basophils (%) (Auto) , Differential Total Cells Counted 100, Neutrophils % ( Manual) 83H, Lymphocytes % (Manual) 12L, Monocytes % (Manual) 4, Eosinophils % ( Manual) 1, Basophils % (Manual) 0, Band Neutrophils 0, Platelet Estimate Adequate, Platelet Morphology Normal, Anisocytosis 2+, Sodium Level 153H, Potassium Level 3.3L, Chloride Level 117H, Carbon Dioxide Level 26, Anion Gap 10 , Blood Urea Nitrogen 38H, Creatinine 0.9, Estimat Glomerular Filtration Rate , Glucose Level 122H, Calcium Level 7.7L, Phosphorus Level 3.5, Magnesium Level 2.1, Total Bilirubin 2.0H, Direct Bilirubin 0.9H, Aspartate Amino Transf (AST/ SGOT) 40H, Alanine Aminotransferase (ALT/SGPT) 14, Alkaline Phosphatase 513H, C- Reactive Protein, Quantitative 11.2H, Total Protein 5.7L, Albumin 1.7L, Globulin 4.0, Albumin/Globulin Ratio 0.4L, Amylase Level 18L, Lipase 51L Height (Feet): 5 Height (Inches): 0.00 Weight (Pounds): 112 General Appearance: no apparent distress, lethargic, confused Dary Nixon M.D. Oct 01, 2017 22:39
--- NOTE | 2017-10-01 22:45 | General Progress Note ---
Assessment/Plan Assessment/Plan Assessment - Resp failure / ARDS / PNA - Abnormal LFT, Biliary obstruction, possible cholangitis, CBD sludge - Anemia with OB (+) stools - thrombocytopenia - Malnutrition - Diarrhea - C Diff negative - hypernatremia - improving - Leukocytosis / sepsis - on abx - AMS - followed 1 step commands today Recommendations - Retry TF - replace lytes - will consider repeat ERCP Friday - transfuse PRN - Elevate HOB - Vent care - Monitor labs - abx Subjective Allergies: Coded Allergies: No Known Allergies (Verified , 11/18/08) Subjective Above noted s/p ERCP today --> failed to cannulate / drain bile duct preventive pancreatic duct stent placed Objective Last 24 Hour Vital Signs Date Time Temp Pulse Resp B/P (MAP) Pulse Ox O2 Delivery O2 Flow Rate FiO2 10/01/17 21:15 91 19 60 10/01/17 21:00 95 21 121/61 98 Mechanical Ventilator 60 10/01/17 20:00 95 10/01/17 20:00 60 10/01/17 20:00 95 20 123/64 97 Mechanical Ventilator 60 10/01/17 19:25 87 20 60 10/01/17 19:00 91 17 108/67 98 Mechanical Ventilator 60 10/01/17 18:00 87 19 110/60 97 Mechanical Ventilator 60 10/01/17 17:08 85 18 60 10/01/17 17:00 85 16 111/62 98 Mechanical Ventilator 70 10/01/17 16:00 98.3 90 14 109/60 94 Mechanical Ventilator 70 98.3 10/01/17 16:00 70 10/01/17 16:00 82 10/01/17 15:00 87 19 112/63 98 Mechanical Ventilator 70 10/01/17 14:56 82 18 60 10/01/17 14:00 89 19 115/65 96 Mechanical Ventilator 70 10/01/17 13:46 208.0 99 18 97 10/01/17 13:45 209.7 99 18 97 10/01/17 13:06 90 100/55 10/01/17 13:00 70 10/01/17 13:00 98.7 90 14 100/55 94 Mechanical Ventilator 70 98.7 10/01/17 12:58 70 10/01/17 12:53 91 18 60 10/01/17 12:00 87 10/01/17 11:00 90 19 112/63 96 Mechanical Ventilator 50 10/01/17 10:55 99 21 45 10/01/17 10:00 89 19 110/65 95 Mechanical Ventilator 50 10/01/17 09:00 89 19 115/62 95 Mechanical Ventilator 50 10/01/17 08:45 94 23 45 10/01/17 08:19 84 21 95 10/01/17 08:18 207.0 86 18 96 10/01/17 08:00 98.2 92 20 117/63 96 Mechanical Ventilator 50 98.2 10/01/17 08:00 89 10/01/17 08:00 50 10/01/17 07:00 93 20 115/56 95 Mechanical Ventilator 50 10/01/17 06:41 94 25 45 10/01/17 06:00 84 21 120/69 95 Mechanical Ventilator 50 10/01/17 05:50 94 128/65 10/01/17 05:02 88 19 45 10/01/17 05:00 86 22 128/65 99 Mechanical Ventilator 50 10/01/17 04:00 98.8 93 20 119/61 96 Mechanical Ventilator 50 98.8 10/01/17 04:00 93 10/01/17 04:00 50 10/01/17 03:00 92 24 108/41 96 Mechanical Ventilator 50 10/01/17 02:50 91 20 45 10/01/17 02:00 92 24 118/60 96 Mechanical Ventilator 50 10/01/17 01:03 88 23 45 10/01/17 01:00 98.8 88 21 109/63 96 Mechanical Ventilator 50 98.8 10/01/17 00:00 94 10/01/17 00:00 94 20 125/60 94 Mechanical Ventilator 50 10/01/17 00:00 50 09/30/17 23:01 92 119/59 09/30/17 23:00 93 20 124/57 94 Mechanical Ventilator 50 09/30/17 22:42 90 18 45 Intake and Output 09/30/17 10/01/17 19:00 07:00 Intake Total 910 ml 1200 ml Output Total 550 ml 360 ml Balance 360 ml 840 ml IV Total 910 ml 1200 ml Output Urine Total 550 ml 360 ml # Bowel Movements 2 4 Laboratory Tests 10/01/17 05:00: White Blood Count 9.8, Red Blood Count 3.41L, Hemoglobin 11.1L, Hematocrit 34.0L , Mean Corpuscular Volume 99, Mean Corpuscular Hemoglobin 32.5H, Mean Corpuscular Hemoglobin Concent 32.7, Red Cell Distribution Width 21.7H, Platelet Count 95L, Mean Platelet Volume 12.4H, Neutrophils (%) (Auto) , Lymphocytes (%) (Auto) , Monocytes (%) (Auto) , Eosinophils (%) (Auto) , Basophils (%) (Auto) , Differential Total Cells Counted 100, Neutrophils % ( Manual) 83H, Lymphocytes % (Manual) 12L, Monocytes % (Manual) 4, Eosinophils % ( Manual) 1, Basophils % (Manual) 0, Band Neutrophils 0, Platelet Estimate Adequate, Platelet Morphology Normal, Anisocytosis 2+, Sodium Level 153H, Potassium Level 3.3L, Chloride Level 117H, Carbon Dioxide Level 26, Anion Gap 10 , Blood Urea Nitrogen 38H, Creatinine 0.9, Estimat Glomerular Filtration Rate , Glucose Level 122H, Calcium Level 7.7L, Phosphorus Level 3.5, Magnesium Level 2.1, Total Bilirubin 2.0H, Direct Bilirubin 0.9H, Aspartate Amino Transf (AST/ SGOT) 40H, Alanine Aminotransferase (ALT/SGPT) 14, Alkaline Phosphatase 513H, C- Reactive Protein, Quantitative 11.2H, Total Protein 5.7L, Albumin 1.7L, Globulin 4.0, Albumin/Globulin Ratio 0.4L, Amylase Level 18L, Lipase 51L Height (Feet): 5 Height (Inches): 0.00 Weight (Pounds): 112 Objective WDWN NCAT , (+) ETT supple CTA RRR abd soft (+) edema non verbal ARNULFO DURON Oct 01, 2017 22:45
[2017-10-01] MEDS ORDERED: D5 1/2NS 1000ml IV ONE (22:56)
[2017-10-01] MEDS ORDERED: Tubing IV Secondary IV ONE (22:56)
[2017-10-02] VITALS (24 sets, daily range): BP systolic 104–142; BP diastolic 52–87
[2017-10-02 05:27] LABS: AMYLASE 27 U/L (25-115)
[2017-10-02 05:30] LABS: ANION GAP 10 mmol/L (5-15); BLOOD UREA NITROGEN 31 mg/dL (7-18); CALCIUM 7.3 MG/DL (8.5-10.1); CARBON DIOXIDE 26 MMOL/L (21-32); CHLORIDE 116 MMOL/L (98-107); CREATININE 0.8 MG/DL (0.55-1.30); POTASSIUM 3.2 MMOL/L (3.5-5.1); SODIUM 152 MMOL/L (136-145)
[2017-10-02 05:41] LABS: ALANINE AMINOTRANSFERASE 16 U/L (12-78); ALBUMIN 1.6 G/DL (3.4-5.0); ALBUMIN/GLOBULIN RATIO 0.4 (1.0-2.7); ALKALINE PHOSPHATASE 409 U/L (46-116); ASPARTATE AMINO TRANSFERASE 32 U/L (15-37); BILIRUBIN,TOTAL 1.8 MG/DL (0.2-1.0)
[2017-10-02 05:42] LABS: BILIRUBIN,DIRECT 0.9 MG/DL (0.0-0.3)
[2017-10-02 05:51] LABS: HEMATOCRIT 32.2 % (37.0-47.0); HEMOGLOBIN 10.3 G/DL (12.0-16.0); MEAN CORPUSCULAR VOLUME 101 FL (80-99); PLATELET COUNT 81 K/UL (150-450); RED BLOOD COUNT 3.19 M/UL (4.20-5.40); RED CELL DISTRIBUTION WIDTH 20.2 % (11.6-14.8); WHITE BLOOD COUNT 7.1 K/UL (4.8-10.8)
[2017-10-02] MEDS: NovoLOG Insulin Flexpen SUBQ SCH ×4 (06:00→23:47)
[2017-10-02] MEDS: Pantoprazole Inj IVP SCH (08:25)
[2017-10-02] MEDS: dilTIAZem HCl 25mg/5ml Inj IVP SCH ×2 (08:26→20:48)
[2017-10-02] MEDS: Ketotifen Fumarate 0.035% 5ml BOTH EYES SCH (08:27)
[2017-10-02] MEDS: Potassium Chloride 10 MEQ in D5 1/2NS 1,000 ML IV SCH ×2 (10:27→20:25)
--- NOTE | 2017-10-02 11:25 | General Progress Note ---
Assessment/Plan Assessment/Plan Assessment - Resp failure / ARDS / PNA - Abnormal LFT, Biliary obstruction, possible cholangitis, CBD sludge - Family declines repeat ERCP - Anemia with OB (+) stools - thrombocytopenia - Malnutrition - hypernatremia - improving - AMS - improved Recommendations - Continue TF - replace lytes - transfuse PRN - Elevate HOB - Vent care - Monitor labs - abx - await family input re ERCP Subjective Allergies: Coded Allergies: No Known Allergies (Verified , 11/18/08) Subjective Above noted Doing better arousable tolerating TF stools more formed d/w physician nephew re LFT Family decline repeat ERCP at this time , since patient doing better Family understands this may be temporary and that risk of recurrent sepsis remains Objective Last 24 Hour Vital Signs Date Time Temp Pulse Resp B/P (MAP) Pulse Ox O2 Delivery O2 Flow Rate FiO2 10/02/17 10:41 91 19 50 10/02/17 10:00 91 18 110/63 96 Mechanical Ventilator 60 10/02/17 09:00 105 40 142/63 96 Mechanical Ventilator 60 10/02/17 08:58 100 24 50 10/02/17 08:26 104 121/59 10/02/17 08:00 60 10/02/17 08:00 98.4 105 23 121/59 95 Mechanical Ventilator 60 98.4 10/02/17 07:09 102 23 50 10/02/17 07:00 100 21 116/56 94 Mechanical Ventilator 60 10/02/17 06:00 105 22 121/58 94 Mechanical Ventilator 60 10/02/17 05:24 102 20 50 10/02/17 05:00 88 21 113/56 97 Mechanical Ventilator 60 10/02/17 04:00 98.8 91 22 118/87 95 Mechanical Ventilator 60 98.8 10/02/17 04:00 91 10/02/17 04:00 60 10/02/17 03:00 88 20 110/56 97 Mechanical Ventilator 60 10/02/17 02:19 91 19 50 10/02/17 02:00 91 21 114/58 97 Mechanical Ventilator 60 10/02/17 01:00 95 18 116/61 97 Mechanical Ventilator 60 10/02/17 00:57 92 20 50 10/02/17 00:00 98.7 94 21 120/60 95 Mechanical Ventilator 60 98.7 10/02/17 00:00 60 10/01/17 23:17 91 18 50 10/01/17 23:00 94 19 116/58 97 Mechanical Ventilator 60 10/01/17 22:00 87 18 107/61 98 Mechanical Ventilator 60 10/01/17 21:15 91 19 60 10/01/17 21:00 95 21 121/61 98 Mechanical Ventilator 60 10/01/17 20:00 95 10/01/17 20:00 60 10/01/17 20:00 95 20 123/64 97 Mechanical Ventilator 60 10/01/17 19:25 87 20 60 10/01/17 19:00 91 17 108/67 98 Mechanical Ventilator 60 10/01/17 18:00 87 19 110/60 97 Mechanical Ventilator 60 10/01/17 17:08 85 18 60 10/01/17 17:00 85 16 111/62 98 Mechanical Ventilator 70 10/01/17 16:00 98.3 90 14 109/60 94 Mechanical Ventilator 70 98.3 10/01/17 16:00 70 10/01/17 16:00 82 10/01/17 15:00 87 19 112/63 98 Mechanical Ventilator 70 10/01/17 14:56 82 18 60 10/01/17 14:00 89 19 115/65 96 Mechanical Ventilator 70 10/01/17 13:46 208.0 99 18 97 10/01/17 13:45 209.7 99 18 97 10/01/17 13:06 90 100/55 10/01/17 13:00 70 10/01/17 13:00 98.7 90 14 100/55 94 Mechanical Ventilator 70 98.7 10/01/17 12:58 70 10/01/17 12:53 91 18 60 10/01/17 12:00 87 Intake and Output 10/01/17 10/02/17 19:00 07:00 Intake Total 1122 ml 1380 ml Output Total 470 ml 420 ml Balance 652 ml 960 ml IV Total 1122 ml 1100 ml Tube Feeding 280 ml Output Urine Total 470 ml 420 ml # Bowel Movements 1 5 Laboratory Tests 10/02/17 05:00: White Blood Count 7.1, Red Blood Count 3.19L, Hemoglobin 10.3L, Hematocrit 32.2L , Mean Corpuscular Volume 101H, Mean Corpuscular Hemoglobin 32.1H, Mean Corpuscular Hemoglobin Concent 31.9L, Red Cell Distribution Width 20.2H, Platelet Count 81L, Mean Platelet Volume 11.3H, Neutrophils (%) (Auto) , Lymphocytes (%) (Auto) , Monocytes (%) (Auto) , Eosinophils (%) (Auto) , Basophils (%) (Auto) , Differential Total Cells Counted 100, Neutrophils % ( Manual) 91H, Lymphocytes % (Manual) 5L, Monocytes % (Manual) 3, Eosinophils % ( Manual) 1, Basophils % (Manual) 0, Band Neutrophils 0, Platelet Estimate DecreasedL, Platelet Morphology Normal, Anisocytosis 1+, Macrocytosis 1+, Acanthocytes 1+, Erythrocyte Sedimentation Rate 102H, Sodium Level 152H, Potassium Level 3.2L, Chloride Level 116H, Carbon Dioxide Level 26, Anion Gap 10 , Blood Urea Nitrogen 31H, Creatinine 0.8, Estimat Glomerular Filtration Rate , Glucose Level 82, Calcium Level 7.3L, Total Bilirubin 1.8H, Direct Bilirubin 0.9H, Aspartate Amino Transf (AST/SGOT) 32, Alanine Aminotransferase (ALT/SGPT) 16, Alkaline Phosphatase 409H, Total Protein 5.4L, Albumin 1.6L, Globulin 3.8, Albumin/Globulin Ratio 0.4L, Amylase Level 27, Lipase 81 Height (Feet): 5 Height (Inches): 0.00 Weight (Pounds): 114 Objective WDWN NCAT , (+) ETT supple CTA RRR abd soft (+) edema non verbal ARNULFO DURON Oct 02, 2017 11:25
--- NOTE | 2017-10-02 11:36 | Nephrology Progress Note ---
Assessment/Plan Problem List: (1) ARDS (adult respiratory distress syndrome) (2) Electrolyte imbalance (3) Thrombocytopenia Assessment Na 152 Platelets 17 K (1) ARDS (adult respiratory distress syndrome) (2) Aspiration pneumonia (3) Protein-calorie malnutrition, severe (4) Diabetes mellitus (5) Anemia , aplastic by history (6) DM (7) UTI (8) Electrolyte imbalance (9) HTN (10) Depression (11) RA . Plan k via NGT doing poorly water via NGT Adjust BP meds K and Phos supplement as needed Monitor renal parameters and urine output avoid nephrotoxics per orders discussed with RN Left ventricular ejection fraction estimated to be 55 %. Subjective ROS Limited/Unobtainable: Yes Objective Objective Last 24 Hour Vital Signs Date Time Temp Pulse Resp B/P (MAP) Pulse Ox O2 Delivery O2 Flow Rate FiO2 10/02/17 10:41 91 19 50 10/02/17 10:00 91 18 110/63 96 Mechanical Ventilator 60 10/02/17 09:00 105 40 142/63 96 Mechanical Ventilator 60 10/02/17 08:58 100 24 50 10/02/17 08:26 104 121/59 10/02/17 08:00 60 10/02/17 08:00 98.4 105 23 121/59 95 Mechanical Ventilator 60 98.4 10/02/17 07:09 102 23 50 10/02/17 07:00 100 21 116/56 94 Mechanical Ventilator 60 10/02/17 06:00 105 22 121/58 94 Mechanical Ventilator 60 10/02/17 05:24 102 20 50 10/02/17 05:00 88 21 113/56 97 Mechanical Ventilator 60 10/02/17 04:00 98.8 91 22 118/87 95 Mechanical Ventilator 60 98.8 10/02/17 04:00 91 10/02/17 04:00 60 10/02/17 03:00 88 20 110/56 97 Mechanical Ventilator 60 10/02/17 02:19 91 19 50 10/02/17 02:00 91 21 114/58 97 Mechanical Ventilator 60 10/02/17 01:00 95 18 116/61 97 Mechanical Ventilator 60 10/02/17 00:57 92 20 50 10/02/17 00:00 98.7 94 21 120/60 95 Mechanical Ventilator 60 98.7 10/02/17 00:00 60 10/01/17 23:17 91 18 50 3/21/18 23:00 94 19 116/58 97 Mechanical Ventilator 60 10/01/17 22:00 87 18 107/61 98 Mechanical Ventilator 60 10/01/17 21:15 91 19 60 10/01/17 21:00 95 21 121/61 98 Mechanical Ventilator 60 10/01/17 20:00 95 10/01/17 20:00 60 10/01/17 20:00 95 20 123/64 97 Mechanical Ventilator 60 10/01/17 19:25 87 20 60 10/01/17 19:00 91 17 108/67 98 Mechanical Ventilator 60 10/01/17 18:00 87 19 110/60 97 Mechanical Ventilator 60 10/01/17 17:08 85 18 60 10/01/17 17:00 85 16 111/62 98 Mechanical Ventilator 70 10/01/17 16:00 98.3 90 14 109/60 94 Mechanical Ventilator 70 98.3 10/01/17 16:00 70 10/01/17 16:00 82 10/01/17 15:00 87 19 112/63 98 Mechanical Ventilator 70 10/01/17 14:56 82 18 60 10/01/17 14:00 89 19 115/65 96 Mechanical Ventilator 70 10/01/17 13:46 208.0 99 18 97 10/01/17 13:45 209.7 99 18 97 10/01/17 13:06 90 100/55 10/01/17 13:00 70 10/01/17 13:00 98.7 90 14 100/55 94 Mechanical Ventilator 70 98.7 10/01/17 12:58 70 10/01/17 12:53 91 18 60 10/01/17 12:00 87 Intake and Output 10/01/17 10/02/17 19:00 07:00 Intake Total 1122 ml 1380 ml Output Total 470 ml 420 ml Balance 652 ml 960 ml IV Total 1122 ml 1100 ml Tube Feeding 280 ml Output Urine Total 470 ml 420 ml # Bowel Movements 1 5 Laboratory Tests 10/02/17 05:00: White Blood Count 7.1, Red Blood Count 3.19L, Hemoglobin 10.3L, Hematocrit 32.2L , Mean Corpuscular Volume 101H, Mean Corpuscular Hemoglobin 32.1H, Mean Corpuscular Hemoglobin Concent 31.9L, Red Cell Distribution Width 20.2H, Platelet Count 81L, Mean Platelet Volume 11.3H, Neutrophils (%) (Auto) , Lymphocytes (%) (Auto) , Monocytes (%) (Auto) , Eosinophils (%) (Auto) , Basophils (%) (Auto) , Differential Total Cells Counted 100, Neutrophils % ( Manual) 91H, Lymphocytes % (Manual) 5L, Monocytes % (Manual) 3, Eosinophils % ( Manual) 1, Basophils % (Manual) 0, Band Neutrophils 0, Platelet Estimate DecreasedL, Platelet Morphology Normal, Anisocytosis 1+, Macrocytosis 1+, Acanthocytes 1+, Erythrocyte Sedimentation Rate 102H, Sodium Level 152H, Potassium Level 3.2L, Chloride Level 116H, Carbon Dioxide Level 26, Anion Gap 10 , Blood Urea Nitrogen 31H, Creatinine 0.8, Estimat Glomerular Filtration Rate , Glucose Level 82, Calcium Level 7.3L, Total Bilirubin 1.8H, Direct Bilirubin 0.9H, Aspartate Amino Transf (AST/SGOT) 32, Alanine Aminotransferase (ALT/SGPT) 16, Alkaline Phosphatase 409H, Total Protein 5.4L, Albumin 1.6L, Globulin 3.8, Albumin/Globulin Ratio 0.4L, Amylase Level 27, Lipase 81 Height (Feet): 5 Height (Inches): 0.00 Weight (Pounds): 114 General Appearance: no apparent distress, other - more responsive Cardiovascular: tachycardia Respiratory/Chest: decreased breath sounds Abdomen: distended Objective no change YAEL HANSEN Oct 02, 2017 11:36
--- NOTE | 2017-10-02 12:04 | Pulmonolgy Critical Care Note ---
Critical Care - Asmt/Plan Problems: (1) ARDS (adult respiratory distress syndrome) (2) Aspiration pneumonia (3) Anemia (4) Thrombocytopenia (5) Diabetes mellitus (6) Protein-calorie malnutrition, severe Respiratory: monitor respiratory rate, adjust FIO2 Cardiac: continue to monitor HR/BP Renal: F/U I&O, keep IV fluid Infectious Disease: check cultures Gastrointestinal: hold feedings Endocrine: check HgA1C Neurologic: PRN Morphine Prophylaxis: Protonix, Heparin Notes Reviewed: delivery table operator, cardio, renal Discussed with: nurses, consultants, telephonic nurse case managerassistant manager quality management - Objective Last 24 Hour Vital Signs Date Time Temp Pulse Resp B/P (MAP) Pulse Ox O2 Delivery O2 Flow Rate FiO2 10/02/17 10:41 91 19 50 10/02/17 10:00 91 18 110/63 96 Mechanical Ventilator 60 10/02/17 09:00 105 40 142/63 96 Mechanical Ventilator 60 10/02/17 08:58 100 24 50 10/02/17 08:26 104 121/59 10/02/17 08:00 60 10/02/17 08:00 98.4 105 23 121/59 95 Mechanical Ventilator 60 98.4 10/02/17 07:09 102 23 50 10/02/17 07:00 100 21 116/56 94 Mechanical Ventilator 60 10/02/17 06:00 105 22 121/58 94 Mechanical Ventilator 60 10/02/17 05:24 102 20 50 10/02/17 05:00 88 21 113/56 97 Mechanical Ventilator 60 10/02/17 04:00 98.8 91 22 118/87 95 Mechanical Ventilator 60 98.8 10/02/17 04:00 91 10/02/17 04:00 60 10/02/17 03:00 88 20 110/56 97 Mechanical Ventilator 60 10/02/17 02:19 91 19 50 10/02/17 02:00 91 21 114/58 97 Mechanical Ventilator 60 10/02/17 01:00 95 18 116/61 97 Mechanical Ventilator 60 10/02/17 00:57 92 20 50 10/02/17 00:00 98.7 94 21 120/60 95 Mechanical Ventilator 60 98.7 10/02/17 00:00 60 10/01/17 23:17 91 18 50 10/01/17 23:00 94 19 116/58 97 Mechanical Ventilator 60 10/01/17 22:00 87 18 107/61 98 Mechanical Ventilator 60 10/01/17 21:15 91 19 60 10/01/17 21:00 95 21 121/61 98 Mechanical Ventilator 60 10/01/17 20:00 95 10/01/17 20:00 60 10/01/17 20:00 95 20 123/64 97 Mechanical Ventilator 60 10/01/17 19:25 87 20 60 10/01/17 19:00 91 17 108/67 98 Mechanical Ventilator 60 10/01/17 18:00 87 19 110/60 97 Mechanical Ventilator 60 10/01/17 17:08 85 18 60 10/01/17 17:00 85 16 111/62 98 Mechanical Ventilator 70 10/01/17 16:00 98.3 90 14 109/60 94 Mechanical Ventilator 70 98.3 10/01/17 16:00 70 10/01/17 16:00 82 10/01/17 15:00 87 19 112/63 98 Mechanical Ventilator 70 10/01/17 14:56 82 18 60 10/01/17 14:00 89 19 115/65 96 Mechanical Ventilator 70 10/01/17 13:46 208.0 99 18 97 10/01/17 13:45 209.7 99 18 97 10/01/17 13:06 90 100/55 10/01/17 13:00 70 10/01/17 13:00 98.7 90 14 100/55 94 Mechanical Ventilator 70 98.7 10/01/17 12:58 70 10/01/17 12:53 91 18 60 10/01/17 12:00 87 Status: sedated Condition: improving HEENT: atraumatic Lungs: clear Heart: HR/BP stable Abdomen: soft Extremities: no C/C/E, edema Decubiti: location Accucheck: 99 Critical Care - Subjective FI02: 50 Vent Support Breath Rate: 18 Vent Support Mode: AC Vent Tidal Volume: 500 Sputum Amount: Moderate PEEP: 5.0 PIP: 51 Tube Feeding Amount: 50 I&O: Intake and Output 10/01/17 10/02/17 19:00 07:00 Intake Total 1122 ml 1380 ml Output Total 470 ml 420 ml Balance 652 ml 960 ml IV Total 1122 ml 1100 ml Tube Feeding 280 ml Output Urine Total 470 ml 420 ml # Bowel Movements 1 5 CXR: no changes, ET in good position, extensive infiltrate ET-Tube: 7.5 ET Position: 20 Labs: Laboratory Tests Test 10/02/17 05:00 White Blood Count 7.1 K/UL (4.8-10.8) Red Blood Count 3.19 M/UL (4.20-5.40) L Hemoglobin 10.3 G/DL (12.0-16.0) L Hematocrit 32.2 % (37.0-47.0) L Mean Corpuscular Volume 101 FL (80-99) H Mean Corpuscular Hemoglobin 32.1 PG (27.0-31.0) H Mean Corpuscular Hemoglobin Concent 31.9 G/DL (32.0-36.0) L Red Cell Distribution Width 20.2 % (11.6-14.8) H Platelet Count 81 K/UL (150-450) L Mean Platelet Volume 11.3 FL (6.5-10.1) H Neutrophils (%) (Auto) % (45.0-75.0) Lymphocytes (%) (Auto) % (20.0-45.0) Monocytes (%) (Auto) % (1.0-10.0) Eosinophils (%) (Auto) % (0.0-3.0) Basophils (%) (Auto) % (0.0-2.0) Differential Total Cells Counted 100 Neutrophils % (Manual) 91 % (45-75) H Lymphocytes % (Manual) 5 % (20-45) L Monocytes % (Manual) 3 % (1-10) Eosinophils % (Manual) 1 % (0-3) Basophils % (Manual) 0 % (0-2) Band Neutrophils 0 % (0-8) Platelet Estimate Decreased L Platelet Morphology Normal Anisocytosis 1+ Macrocytosis 1+ Acanthocytes 1+ Erythrocyte Sedimentation Rate 102 MM/HR (0-30) H Sodium Level 152 MMOL/L (136-145) H Potassium Level 3.2 MMOL/L (3.5-5.1) L Chloride Level 116 MMOL/L (98-107) H Carbon Dioxide Level 26 MMOL/L (21-32) Anion Gap 10 mmol/L (5-15) Blood Urea Nitrogen 31 mg/dL (7-18) H Creatinine 0.8 MG/DL (0.55-1.30) Estimat Glomerular Filtration Rate mL/min (>60) Glucose Level 82 MG/DL (74-106) Calcium Level 7.3 MG/DL (8.5-10.1) L Total Bilirubin 1.8 MG/DL (0.2-1.0) H Direct Bilirubin 0.9 MG/DL (0.0-0.3) H Aspartate Amino Transf (AST/SGOT) 32 U/L (15-37) Alanine Aminotransferase (ALT/SGPT) 16 U/L (12-78) Alkaline Phosphatase 409 U/L (46-116) H Total Protein 5.4 G/DL (6.4-8.2) L Albumin 1.6 G/DL (3.4-5.0) L Globulin 3.8 g/dL Albumin/Globulin Ratio 0.4 (1.0-2.7) L Amylase Level 27 U/L (25-115) Lipase 81 U/L (73-393) Tayler Liu MD Oct 02, 2017 12:04
--- NOTE | 2017-10-02 12:20 | General Progress Note ---
Assessment/Plan Assessment/Plan #. Anemia due to underlying chronic disease. Continue to closely monitor. --> Hemoglobin goal is above 7. --> Transfuse as necessary --> Anemia workup has been reviewed at this point. --> Hemoglobin levels stable since transfusion #. Leukocytosis likely related to underlying pneumonia infection. --> On antibiotic treatment. --> Wbc count downtrended and WNL at this time. --> Cont to monitor and trend daily. #. Thrombocytopenia, severe and progressive, acute onset, likely secondary to underlying infection, aspiration pneumonia versus HIT. --> Antibody test is pending. Heparin has been discontinued on 09/18/2017. --> Duplex of the lower extremities is negative, therefore less likely HIT and other causes are more likely such as underlying infection. --> Platelets goal >20k, transfuse if necessary. --> Has Remained low past few days. On antibiotic treatment. --> Improved slightly today. #. Community-acquired pneumonia versus hospital-acquired. --> The patient on broad-spectrum antibiotics. --> Improved. --> Urine culture growing E. coli. Continue to closely monitor. #. Transaminitis. She has been seen by GI Service. Continue to closely monitor. #. Low-grade fever. Closely observe. #. Encephalopathy. Subjective Date patient seen: Oct 01, 2017 Constitutional: Denies: no symptoms, chills, diaphoresis, fever, malaise, weakness, other HEENT: Denies: no symptoms, eye pain, blurred vision, tearing, double vision, ear pain, ear discharge, nose pain, nose congestion, throat pain, throat swelling, mouth pain, mouth swelling, other Cardiovascular: Denies: no symptoms, chest pain, edema, irregular heart rate, lightheadedness, palpitations, syncope, other Respiratory: Denies: no symptoms, cough, orthopnea, shortness of breath, SOB with excertion, SOB at rest, sputum, stridor, wheezing, other Gastrointestinal/Abdominal: Denies: no symptoms, abdomen distended, abdominal pain, black stools, tarry stools, blood in stool, constipated, diarrhea, difficulty swallowing, nausea, poor appetite, poor fluid intake, rectal bleeding , vomiting, other Genitourinary: Denies: no symptoms, burning, discharge, frequency, flank pain, hematuria, incontinence, pain, urgency, other 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: Denies: no symptoms, anxiety, depressed, emotional problems, headache, numbness, paresthesia, pre-existing deficit, seizure, tingling, tremors, weakness, other Hematologic/Lymphatic: Reports: anemia Allergies: Coded Allergies: No Known Allergies (Verified , 11/18/08) Subjective Leukocytosis improved. H/H stable. NAD. Objective Last 24 Hour Vital Signs Date Time Temp Pulse Resp B/P (MAP) Pulse Ox O2 Delivery O2 Flow Rate FiO2 10/02/17 10:41 91 19 50 10/02/17 10:00 91 18 110/63 96 Mechanical Ventilator 60 10/02/17 09:00 105 40 142/63 96 Mechanical Ventilator 60 10/02/17 08:58 100 24 50 10/02/17 08:26 104 121/59 10/02/17 08:00 60 10/02/17 08:00 98.4 105 23 121/59 95 Mechanical Ventilator 60 98.4 10/02/17 07:09 102 23 50 10/02/17 07:00 100 21 116/56 94 Mechanical Ventilator 60 10/02/17 06:00 105 22 121/58 94 Mechanical Ventilator 60 10/02/17 05:24 102 20 50 10/02/17 05:00 88 21 113/56 97 Mechanical Ventilator 60 10/02/17 04:00 98.8 91 22 118/87 95 Mechanical Ventilator 60 98.8 10/02/17 04:00 91 10/02/17 04:00 60 10/02/17 03:00 88 20 110/56 97 Mechanical Ventilator 60 10/02/17 02:19 91 19 50 10/02/17 02:00 91 21 114/58 97 Mechanical Ventilator 60 10/02/17 01:00 95 18 116/61 97 Mechanical Ventilator 60 10/02/17 00:57 92 20 50 10/02/17 00:00 98.7 94 21 120/60 95 Mechanical Ventilator 60 98.7 10/02/17 00:00 60 10/01/17 23:17 91 18 50 10/01/17 23:00 94 19 116/58 97 Mechanical Ventilator 60 10/01/17 22:00 87 18 107/61 98 Mechanical Ventilator 60 10/01/17 21:15 91 19 60 10/01/17 21:00 95 21 121/61 98 Mechanical Ventilator 60 10/01/17 20:00 95 10/01/17 20:00 60 10/01/17 20:00 95 20 123/64 97 Mechanical Ventilator 60 10/01/17 19:25 87 20 60 10/01/17 19:00 91 17 108/67 98 Mechanical Ventilator 60 10/01/17 18:00 87 19 110/60 97 Mechanical Ventilator 60 10/01/17 17:08 85 18 60 10/01/17 17:00 85 16 111/62 98 Mechanical Ventilator 70 10/01/17 16:00 98.3 90 14 109/60 94 Mechanical Ventilator 70 98.3 10/01/17 16:00 70 10/01/17 16:00 82 10/01/17 15:00 87 19 112/63 98 Mechanical Ventilator 70 10/01/17 14:56 82 18 60 10/01/17 14:00 89 19 115/65 96 Mechanical Ventilator 70 10/01/17 13:46 208.0 99 18 97 10/01/17 13:45 209.7 99 18 97 10/01/17 13:06 90 100/55 10/01/17 13:00 70 10/01/17 13:00 98.7 90 14 100/55 94 Mechanical Ventilator 70 98.7 10/01/17 12:58 70 10/01/17 12:53 91 18 60 Intake and Output 10/01/17 10/02/17 19:00 07:00 Intake Total 1122 ml 1380 ml Output Total 470 ml 420 ml Balance 652 ml 960 ml IV Total 1122 ml 1100 ml Tube Feeding 280 ml Output Urine Total 470 ml 420 ml # Bowel Movements 1 5 Laboratory Tests 10/02/17 05:00: White Blood Count 7.1, Red Blood Count 3.19L, Hemoglobin 10.3L, Hematocrit 32.2L , Mean Corpuscular Volume 101H, Mean Corpuscular Hemoglobin 32.1H, Mean Corpuscular Hemoglobin Concent 31.9L, Red Cell Distribution Width 20.2H, Platelet Count 81L, Mean Platelet Volume 11.3H, Neutrophils (%) (Auto) , Lymphocytes (%) (Auto) , Monocytes (%) (Auto) , Eosinophils (%) (Auto) , Basophils (%) (Auto) , Differential Total Cells Counted 100, Neutrophils % ( Manual) 91H, Lymphocytes % (Manual) 5L, Monocytes % (Manual) 3, Eosinophils % ( Manual) 1, Basophils % (Manual) 0, Band Neutrophils 0, Platelet Estimate DecreasedL, Platelet Morphology Normal, Anisocytosis 1+, Macrocytosis 1+, Acanthocytes 1+, Erythrocyte Sedimentation Rate 102H, Sodium Level 152H, Potassium Level 3.2L, Chloride Level 116H, Carbon Dioxide Level 26, Anion Gap 10 , Blood Urea Nitrogen 31H, Creatinine 0.8, Estimat Glomerular Filtration Rate , Glucose Level 82, Calcium Level 7.3L, Total Bilirubin 1.8H, Direct Bilirubin 0.9H, Aspartate Amino Transf (AST/SGOT) 32, Alanine Aminotransferase (ALT/SGPT) 16, Alkaline Phosphatase 409H, Total Protein 5.4L, Albumin 1.6L, Globulin 3.8, Albumin/Globulin Ratio 0.4L, Amylase Level 27, Lipase 81 Height (Feet): 5 Height (Inches): 0.00 Weight (Pounds): 114 General Appearance: confused Respiratory/Chest: decreased breath sounds Abdomen: soft Johnny Sinha MD Oct 02, 2017 12:20
[2017-10-02] MEDS: Micafungin 100 MG in NS 110 ML IVPB SCH (12:34)
--- NOTE | 2017-10-02 13:32 | Infectious Diseases Prog Note ---
Assessment/Plan Assessment/Plan -- The patient is a 76-year-old female w Fever, SP Leukocytosis , resolved- likely cholangitis -Cdiff neg -09/22 sp cx C.a lbicans, Bcx Neg -u/a wbc 10-15, nit neg, leuk +2; ucx >100k C. albicans -Fungal sp cx p Community-acquired vs healthcare-associated pneumonia, s/p RX (the patient has been recently hospitalized in [facility]). -now ARDS- r/o fungal PNA -CXR 09/29: - cxray 09/26 : no changes -CT chest 09/23: Diffuse extensive pulmonary parenchymal disease, with dense consolidation interspersed with groundglass opacities. Appearance nonspecific, possibilities include pulmonary edema, pneumonia, ARDS, hemorrhage. Bilateral pleural effusions, left greater than right. Diffuse edema of the subcutaneous fat, Multiple small thyroid nodules. All apparently under 1 cm, no further follow-up necessary. Degenerative changes of the shoulders 09/19 xray : Unchanged diffuse interstitial and airspace edema, -CrAg serum, U legionell ag neg; Asp ag, Cocci, fungitell p Probable influenza despite of negative influenza screening test, s/p Rx Abnormal liver function tests, ALP>>> AST -2ry to sludged CBDcholangitis, obstruction on CBD; AST/ALT normal now, ALP improving -s/p ERCP with stent placement 10/01 -EUS 09/30: 1. Dilated common bile duct with lots of sludge in the distal common bile duct, most probably explanation for abnormal liver function tests. 2. Large ascites -Abd US 09/29: Cholelithiasis, better demonstrated than on prior exam. Thickened gallbladder wall could indicate acute cholecystitis. However, gallbladder wall thickening also evident on prior study of 09/19/2017, after which a hepatobiliary scan was negative, so suspect this is more likely due to hemodynamic derangements given presence of ascites and pleural fluid. Extrahepatic biliary ductal dilatation, equivocally slightly increased from 2017. Downstream obstruction not excludable. Coarsened hepatic echotexture, consistent with hepatocellular disease, nonspecific as regards etiology. Equivocal hepatic surface micronodularity, could indicate early cirrhotic changes. -HIDA scan: Negative for evidence of cystic duct obstruction/acute cholecystitis. Common bile duct is demonstrated be patent, but emptying into the duodenum is delayed, not seen until 2 hours. Significance of this is uncertain. MRCP or CT scanning may be useful to clarify -CT abd/p 09/23: Evidence of anasarca, with diffuse edema subcutaneous and mesenteric fat, bilateral pleural effusions, possible pulmonary edema, trace ascites. Densities within the gallbladder, probably reflecting tiny gallstones, although these are not identifiable on recent ultrasound. Gallbladder wall edema is probably a manifestation of anasarca, as recent hepatobiliary scan was negative for acute cholecystitis. Old ununited fracture deformities of the right pelvis. Bilateral chronic appearing hip dislocations Ultrasound of the abdomen : Gallbladder sludge. No definite stones. 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 -R/o HIT. Abx and protonix could be also be contributors. VDRF / ARDS HTN GERD History of auditory hallucination. Depression. Anemia. Rheumatoid arthritis. History of gastritis. PLAN: -Continue Amikacin # 10/10(abx d#/) and #3/5 for cholangitis 09/30 SP Flagyl #8 09/25 sp Fluconazole #3 (held due to rise ALP) 09/23 SP Meropenem #5, PO Vanco #2 09/21 SP tamiflu #10 -f/u Asp ag, fungitell, Cocci ab, fungal sp cx Monitor CBC.; Trend WBC Monitor BMP.; Trend LFTs Monitor chest x-ray -GI, heme onc f/u Subjective Allergies: Coded Allergies: No Known Allergies (Verified , 11/18/08) Subjective afebrile in no leukocytosis Fio2 downt o 50% s/p ERCP with stent placement yesterday Objective Vital Signs Last 24 Hour Vital Signs Date Time Temp Pulse Resp B/P (MAP) Pulse Ox O2 Delivery O2 Flow Rate FiO2 10/02/17 12:45 91 19 50 10/02/17 12:00 60 10/02/17 10:41 91 19 50 10/02/17 10:00 91 18 110/63 96 Mechanical Ventilator 60 10/02/17 09:00 105 40 142/63 96 Mechanical Ventilator 60 10/02/17 08:58 100 24 50 10/02/17 08:26 104 121/59 10/02/17 08:00 60 10/02/17 08:00 98.4 105 23 121/59 95 Mechanical Ventilator 60 98.4 10/02/17 07:09 102 23 50 10/02/17 07:00 100 21 116/56 94 Mechanical Ventilator 60 10/02/17 06:00 105 22 121/58 94 Mechanical Ventilator 60 10/02/17 05:24 102 20 50 10/02/17 05:00 88 21 113/56 97 Mechanical Ventilator 60 10/02/17 04:00 98.8 91 22 118/87 95 Mechanical Ventilator 60 98.8 10/02/17 04:00 91 10/02/17 04:00 60 10/02/17 03:00 88 20 110/56 97 Mechanical Ventilator 60 10/02/17 02:19 91 19 50 10/02/17 02:00 91 21 114/58 97 Mechanical Ventilator 60 10/02/17 01:00 95 18 116/61 97 Mechanical Ventilator 60 10/02/17 00:57 92 20 50 10/02/17 00:00 98.7 94 21 120/60 95 Mechanical Ventilator 60 98.7 10/02/17 00:00 60 10/01/17 23:17 91 18 50 10/01/17 23:00 94 19 116/58 97 Mechanical Ventilator 60 10/01/17 22:00 87 18 107/61 98 Mechanical Ventilator 60 10/01/17 21:15 91 19 60 10/01/17 21:00 95 21 121/61 98 Mechanical Ventilator 60 10/01/17 20:00 95 10/01/17 20:00 60 10/01/17 20:00 95 20 123/64 97 Mechanical Ventilator 60 10/01/17 19:25 87 20 60 10/01/17 19:00 91 17 108/67 98 Mechanical Ventilator 60 10/01/17 18:00 87 19 110/60 97 Mechanical Ventilator 60 10/01/17 17:08 85 18 60 10/01/17 17:00 85 16 111/62 98 Mechanical Ventilator 70 10/01/17 16:00 98.3 90 14 109/60 94 Mechanical Ventilator 70 98.3 10/01/17 16:00 70 10/01/17 16:00 82 10/01/17 15:00 87 19 112/63 98 Mechanical Ventilator 70 10/01/17 14:56 82 18 60 10/01/17 14:00 89 19 115/65 96 Mechanical Ventilator 70 10/01/17 13:46 208.0 99 18 97 10/01/17 13:45 209.7 99 18 97 Height (Feet): 5 Height (Inches): 0.00 Weight (Pounds): 114 Objective General Appearance: lethargic, thin EENT: normal ENT inspection Neck: non-tender, normal alignment, supple Cardiovascular: normal peripheral pulses, normal rate, regular rhythm, no gallop/murmur, no JVD Respiratory/Chest: Mechanical vent; respiratory distress, crackles/rales, rhonchi - bilaterally, expiratory wheezing Abdomen: normal bowel sounds, non tender, soft, no organomegaly, no mass Skin: normal pigmentation, warm/dry Laboratory Tests Test 10/02/17 05:00 White Blood Count 7.1 K/UL (4.8-10.8) Red Blood Count 3.19 M/UL (4.20-5.40) L Hemoglobin 10.3 G/DL (12.0-16.0) L Hematocrit 32.2 % (37.0-47.0) L Mean Corpuscular Volume 101 FL (80-99) H Mean Corpuscular Hemoglobin 32.1 PG (27.0-31.0) H Mean Corpuscular Hemoglobin Concent 31.9 G/DL (32.0-36.0) L Red Cell Distribution Width 20.2 % (11.6-14.8) H Platelet Count 81 K/UL (150-450) L Mean Platelet Volume 11.3 FL (6.5-10.1) H Neutrophils (%) (Auto) % (45.0-75.0) Lymphocytes (%) (Auto) % (20.0-45.0) Monocytes (%) (Auto) % (1.0-10.0) Eosinophils (%) (Auto) % (0.0-3.0) Basophils (%) (Auto) % (0.0-2.0) Differential Total Cells Counted 100 Neutrophils % (Manual) 91 % (45-75) H Lymphocytes % (Manual) 5 % (20-45) L Monocytes % (Manual) 3 % (1-10) Eosinophils % (Manual) 1 % (0-3) Basophils % (Manual) 0 % (0-2) Band Neutrophils 0 % (0-8) Platelet Estimate Decreased L Platelet Morphology Normal Anisocytosis 1+ Macrocytosis 1+ Acanthocytes 1+ Erythrocyte Sedimentation Rate 102 MM/HR (0-30) H Sodium Level 152 MMOL/L (136-145) H Potassium Level 3.2 MMOL/L (3.5-5.1) L Chloride Level 116 MMOL/L (98-107) H Carbon Dioxide Level 26 MMOL/L (21-32) Anion Gap 10 mmol/L (5-15) Blood Urea Nitrogen 31 mg/dL (7-18) H Creatinine 0.8 MG/DL (0.55-1.30) Estimat Glomerular Filtration Rate mL/min (>60) Glucose Level 82 MG/DL (74-106) Calcium Level 7.3 MG/DL (8.5-10.1) L Total Bilirubin 1.8 MG/DL (0.2-1.0) H Direct Bilirubin 0.9 MG/DL (0.0-0.3) H Aspartate Amino Transf (AST/SGOT) 32 U/L (15-37) Alanine Aminotransferase (ALT/SGPT) 16 U/L (12-78) Alkaline Phosphatase 409 U/L (46-116) H Total Protein 5.4 G/DL (6.4-8.2) L Albumin 1.6 G/DL (3.4-5.0) L Globulin 3.8 g/dL Albumin/Globulin Ratio 0.4 (1.0-2.7) L Amylase Level 27 U/L (25-115) Lipase 81 U/L (73-393) Current Medications Medications (Trade) Dose Ordered Sig/Hermes Route PRN Reason Start Time Stop Time Status Last Admin Dose Admin Acetaminophen (Tylenol) 650 mg EVERY 6 HOURS PRN NG Fever/Headache/Mild Pain 09/13/17 20:45 10/13/17 20:44 09/27/17 16:49 Albuterol/ Ipratropium (Albuterol/ Ipratropium) 3 ml Q4H PRN HHN Shortness of Breath 09/28/17 10:15 10/03/17 10:14 09/28/17 13:00 Amikacin Protocol (Amikacin pharmacy to dose) 1 ea DAILY PRN MISC Per rx protocol 09/23/17 11:45 10/23/17 11:44 Amikacin Sulfate 500 mg/Sodium Chloride 112 ml @ 112 mls/hr Q36H IV 09/25/17 11:30 10/03/17 11:29 10/01/17 11:30 Clonidine HCl (Catapres Tab) 0.1 mg Q4H PRN ORAL SBP>160 UNRELIEVED BY HYDRALAZ 09/16/17 16:45 10/15/17 16:59 Dextrose (Dextrose 50%) STAT PRN IV Hypoglycemia 09/13/17 15:00 10/13/17 14:59 Diltiazem HCl (Cardizem) 5 mg Q12HR IVP 10/02/17 09:00 11/01/17 08:59 10/02/17 08:26 Insulin Aspart (NovoLOG) EVERY 6 HOURS SUBQ 09/17/17 12:00 10/17/17 11:59 10/02/17 12:45 Ketotifen Fumarate (Zatidor) 1 drop DAILY BOTH EYES 09/26/17 09:00 10/25/17 08:59 10/02/17 08:27 Micafungin Sodium 100 mg/Sodium Chloride 110 ml @ 110 mls/hr Q24H IVPB 09/30/17 13:00 10/07/17 12:59 10/02/17 12:34 Pantoprazole (Protonix) 40 mg DAILY IVP 10/02/17 09:00 11/01/17 08:59 10/02/17 08:25 Polyethylene Glycol (Miralax) 17 gm BEDTIME ORAL 09/14/17 21:00 10/14/17 20:59 09/30/17 20:36 Potassium Chloride 10 meq/ Dextrose/Sodium Chloride 1,005 ml @ 100 mls/hr Q10H3M IV 09/30/17 18:00 10/30/17 17:59 10/02/17 10:27 Potassium Chloride (K-Dur) 40 meq ONCE ONCE ORAL 10/02/17 13:30 10/02/17 13:31 Madelyn Pederson M.D. Oct 02, 2017 13:32
--- NOTE | 2017-10-02 15:52 | Cardiac Electrophysiology PN ---
Assessment/Plan Assessment/Plan 1. Respiratory failure, due to underlying ARDS , pneumonia. Intubated on the vent. Already ruled out for myocardial infarction. Now on 50% Fio2 with PEEP of 5. Tracheostomy on Friday 2. Left bundle-branch block. No evidence of advanced heart block. 3. HTN and diastolic dysfunction. On Cardizem 30 q8 hr. Echo EF 55% 4. Hypernatremia and azotemia. F/U per Dr Mayer 5. Pneumonia and sepsis on IV antibiotics by Dr. Hunter. 6. Psychiatric disorder. 7. Anasarca. 3rd spacing. 8. Anemia with Hb 6.6 s/p PRBC. CT chest abdomen and pelvis without contrast no acute finding S/P EGD by Dr Walton 9. Severe thrombocytopenia. S/P platelet transfusion 10. Abnormal LFT, Biliary obstruction, possible cholangitis. S/P ERCP yesterday. CBD sludge Family declines repeat ERCP DW RN Subjective Subjective Intubated on Vent in ICU. In sinus tach 110. Off pressors. No SVt or VT Objective Last 24 Hour Vital Signs Date Time Temp Pulse Resp B/P (MAP) Pulse Ox O2 Delivery O2 Flow Rate FiO2 10/02/17 15:00 98 23 123/64 97 Mechanical Ventilator 60 10/02/17 14:54 98 24 50 10/02/17 14:00 99 23 123/64 97 Mechanical Ventilator 60 10/02/17 13:00 97 23 125/59 97 Mechanical Ventilator 60 10/02/17 12:45 91 19 50 10/02/17 12:00 88 10/02/17 12:00 60 10/02/17 12:00 98.7 95 31 125/75 97 Mechanical Ventilator 60 98.7 10/02/17 12:00 105 10/02/17 11:00 90 22 104/52 96 Mechanical Ventilator 60 10/02/17 10:41 91 19 50 10/02/17 10:00 91 18 110/63 96 Mechanical Ventilator 60 10/02/17 09:00 105 40 142/63 96 Mechanical Ventilator 60 10/02/17 08:58 100 24 50 10/02/17 08:26 104 121/59 10/02/17 08:00 105 10/02/17 08:00 60 10/02/17 08:00 98.4 105 23 121/59 95 Mechanical Ventilator 60 98.4 10/02/17 07:09 102 23 50 10/02/17 07:00 100 21 116/56 94 Mechanical Ventilator 60 10/02/17 06:00 105 22 121/58 94 Mechanical Ventilator 60 10/02/17 05:24 102 20 50 10/02/17 05:00 88 21 113/56 97 Mechanical Ventilator 60 10/02/17 04:00 98.8 91 22 118/87 95 Mechanical Ventilator 60 98.8 10/02/17 04:00 91 10/02/17 04:00 60 10/02/17 03:00 88 20 110/56 97 Mechanical Ventilator 60 10/02/17 02:19 91 19 50 10/02/17 02:00 91 21 114/58 97 Mechanical Ventilator 60 10/02/17 01:00 95 18 116/61 97 Mechanical Ventilator 60 10/02/17 00:57 92 20 50 10/02/17 00:00 98.7 94 21 120/60 95 Mechanical Ventilator 60 98.7 10/02/17 00:00 60 10/01/17 23:17 91 18 50 10/01/17 23:00 94 19 116/58 97 Mechanical Ventilator 60 10/01/17 22:00 87 18 107/61 98 Mechanical Ventilator 60 10/01/17 21:15 91 19 60 10/01/17 21:00 95 21 121/61 98 Mechanical Ventilator 60 10/01/17 20:00 95 10/01/17 20:00 60 10/01/17 20:00 95 20 123/64 97 Mechanical Ventilator 60 10/01/17 19:25 87 20 60 10/01/17 19:00 91 17 108/67 98 Mechanical Ventilator 60 10/01/17 18:00 87 19 110/60 97 Mechanical Ventilator 60 10/01/17 17:08 85 18 60 10/01/17 17:00 85 16 111/62 98 Mechanical Ventilator 70 10/01/17 16:00 98.3 90 14 109/60 94 Mechanical Ventilator 70 98.3 10/01/17 16:00 70 10/01/17 16:00 82 Intake and Output 10/01/17 10/02/17 19:00 07:00 Intake Total 1122 ml 1480 ml Output Total 470 ml 420 ml Balance 652 ml 1060 ml IV Total 1122 ml 1200 ml Tube Feeding 280 ml Output Urine Total 470 ml 420 ml # Bowel Movements 1 5 Laboratory Tests Test 10/02/17 05:00 White Blood Count 7.1 K/UL (4.8-10.8) Red Blood Count 3.19 M/UL (4.20-5.40) L Hemoglobin 10.3 G/DL (12.0-16.0) L Hematocrit 32.2 % (37.0-47.0) L Mean Corpuscular Volume 101 FL (80-99) H Mean Corpuscular Hemoglobin 32.1 PG (27.0-31.0) H Mean Corpuscular Hemoglobin Concent 31.9 G/DL (32.0-36.0) L Red Cell Distribution Width 20.2 % (11.6-14.8) H Platelet Count 81 K/UL (150-450) L Mean Platelet Volume 11.3 FL (6.5-10.1) H Neutrophils (%) (Auto) % (45.0-75.0) Lymphocytes (%) (Auto) % (20.0-45.0) Monocytes (%) (Auto) % (1.0-10.0) Eosinophils (%) (Auto) % (0.0-3.0) Basophils (%) (Auto) % (0.0-2.0) Differential Total Cells Counted 100 Neutrophils % (Manual) 91 % (45-75) H Lymphocytes % (Manual) 5 % (20-45) L Monocytes % (Manual) 3 % (1-10) Eosinophils % (Manual) 1 % (0-3) Basophils % (Manual) 0 % (0-2) Band Neutrophils 0 % (0-8) Platelet Estimate Decreased L Platelet Morphology Normal Anisocytosis 1+ Macrocytosis 1+ Acanthocytes 1+ Erythrocyte Sedimentation Rate 102 MM/HR (0-30) H Sodium Level 152 MMOL/L (136-145) H Potassium Level 3.2 MMOL/L (3.5-5.1) L Chloride Level 116 MMOL/L (98-107) H Carbon Dioxide Level 26 MMOL/L (21-32) Anion Gap 10 mmol/L (5-15) Blood Urea Nitrogen 31 mg/dL (7-18) H Creatinine 0.8 MG/DL (0.55-1.30) Estimat Glomerular Filtration Rate mL/min (>60) Glucose Level 82 MG/DL (74-106) Calcium Level 7.3 MG/DL (8.5-10.1) L Total Bilirubin 1.8 MG/DL (0.2-1.0) H Direct Bilirubin 0.9 MG/DL (0.0-0.3) H Aspartate Amino Transf (AST/SGOT) 32 U/L (15-37) Alanine Aminotransferase (ALT/SGPT) 16 U/L (12-78) Alkaline Phosphatase 409 U/L (46-116) H Total Protein 5.4 G/DL (6.4-8.2) L Albumin 1.6 G/DL (3.4-5.0) L Globulin 3.8 g/dL Albumin/Globulin Ratio 0.4 (1.0-2.7) L Amylase Level 27 U/L (25-115) Lipase 81 U/L (73-393) Objective HEAD AND NECK: Orally intubated. NG tube in LUNGS: Coarse rhonchi bilaterally CARDIOVASCULAR: Tachy S1 and S2.No murmur ABDOMEN: Soft. EXTREMITIES: 1+ pitting edema. Charlie Darnell MD Oct 02, 2017 15:52
--- NOTE | 2017-10-02 18:23 | Internal Med Progress Note ---
Subjective Date of Service: Oct 02, 2017 Physician Name Bowens,Sina Attending Physician Jesus Barahona MD Current Medications Medications (Trade) Dose Ordered Sig/Hermes Route PRN Reason Start Time Stop Time Status Last Admin Dose Admin Acetaminophen (Tylenol) 650 mg EVERY 6 HOURS PRN NG Fever/Headache/Mild Pain 09/13/17 20:45 10/13/17 20:44 09/27/17 16:49 Albuterol/ Ipratropium (Albuterol/ Ipratropium) 3 ml Q4H PRN HHN Shortness of Breath 09/28/17 10:15 10/03/17 10:14 09/28/17 13:00 Amikacin Protocol (Amikacin pharmacy to dose) 1 ea DAILY PRN MISC Per rx protocol 09/23/17 11:45 10/23/17 11:44 Amikacin Sulfate 500 mg/Sodium Chloride 112 ml @ 112 mls/hr Q36H IV 09/25/17 11:30 10/03/17 11:29 10/01/17 11:30 Clonidine HCl (Catapres Tab) 0.1 mg Q4H PRN ORAL SBP>160 UNRELIEVED BY HYDRALAZ 09/16/17 16:45 10/15/17 16:59 Dextrose (Dextrose 50%) STAT PRN IV Hypoglycemia 09/13/17 15:00 10/13/17 14:59 Diltiazem HCl (Cardizem) 5 mg Q12HR IVP 10/02/17 09:00 11/01/17 08:59 10/02/17 08:26 Insulin Aspart (NovoLOG) EVERY 6 HOURS SUBQ 09/17/17 12:00 10/17/17 11:59 10/02/17 18:12 Ketotifen Fumarate (Zatidor) 1 drop DAILY BOTH EYES 09/26/17 09:00 10/25/17 08:59 10/02/17 08:27 Micafungin Sodium 100 mg/Sodium Chloride 110 ml @ 110 mls/hr Q24H IVPB 09/30/17 13:00 10/07/17 12:59 10/02/17 12:34 Pantoprazole (Protonix) 40 mg DAILY IVP 10/02/17 09:00 11/01/17 08:59 10/02/17 08:25 Polyethylene Glycol (Miralax) 17 gm BEDTIME ORAL 09/14/17 21:00 10/14/17 20:59 09/30/17 20:36 Potassium Chloride 10 meq/ Dextrose/Sodium Chloride 1,005 ml @ 100 mls/hr Q10H3M IV 09/30/17 18:00 10/30/17 17:59 10/02/17 10:27 Allergies: Coded Allergies: No Known Allergies (Verified , 11/18/08) ROS Limited/Unobtainable: Yes Subjective 76 YO F admitted with Shortness of breath, now respiratory failure. Intubated and sedated. Cover for Internal Med-Dr. Barahona. ICU . S/P ERCP 10/01/17 Objective Last Vital Signs Date Time Temp Pulse Resp B/P (MAP) Pulse Ox O2 Delivery O2 Flow Rate FiO2 10/02/17 18:00 97 22 136/62 100 Mechanical Ventilator 60 10/02/17 17:00 98.2 98.2 Laboratory Tests Test 10/02/17 05:00 White Blood Count 7.1 K/UL (4.8-10.8) Red Blood Count 3.19 M/UL (4.20-5.40) L Hemoglobin 10.3 G/DL (12.0-16.0) L Hematocrit 32.2 % (37.0-47.0) L Mean Corpuscular Volume 101 FL (80-99) H Mean Corpuscular Hemoglobin 32.1 PG (27.0-31.0) H Mean Corpuscular Hemoglobin Concent 31.9 G/DL (32.0-36.0) L Red Cell Distribution Width 20.2 % (11.6-14.8) H Platelet Count 81 K/UL (150-450) L Mean Platelet Volume 11.3 FL (6.5-10.1) H Neutrophils (%) (Auto) % (45.0-75.0) Lymphocytes (%) (Auto) % (20.0-45.0) Monocytes (%) (Auto) % (1.0-10.0) Eosinophils (%) (Auto) % (0.0-3.0) Basophils (%) (Auto) % (0.0-2.0) Differential Total Cells Counted 100 Neutrophils % (Manual) 91 % (45-75) H Lymphocytes % (Manual) 5 % (20-45) L Monocytes % (Manual) 3 % (1-10) Eosinophils % (Manual) 1 % (0-3) Basophils % (Manual) 0 % (0-2) Band Neutrophils 0 % (0-8) Platelet Estimate Decreased L Platelet Morphology Normal Anisocytosis 1+ Macrocytosis 1+ Acanthocytes 1+ Erythrocyte Sedimentation Rate 102 MM/HR (0-30) H Sodium Level 152 MMOL/L (136-145) H Potassium Level 3.2 MMOL/L (3.5-5.1) L Chloride Level 116 MMOL/L (98-107) H Carbon Dioxide Level 26 MMOL/L (21-32) Anion Gap 10 mmol/L (5-15) Blood Urea Nitrogen 31 mg/dL (7-18) H Creatinine 0.8 MG/DL (0.55-1.30) Estimat Glomerular Filtration Rate mL/min (>60) Glucose Level 82 MG/DL (74-106) Calcium Level 7.3 MG/DL (8.5-10.1) L Total Bilirubin 1.8 MG/DL (0.2-1.0) H Direct Bilirubin 0.9 MG/DL (0.0-0.3) H Aspartate Amino Transf (AST/SGOT) 32 U/L (15-37) Alanine Aminotransferase (ALT/SGPT) 16 U/L (12-78) Alkaline Phosphatase 409 U/L (46-116) H Total Protein 5.4 G/DL (6.4-8.2) L Albumin 1.6 G/DL (3.4-5.0) L Globulin 3.8 g/dL Albumin/Globulin Ratio 0.4 (1.0-2.7) L Amylase Level 27 U/L (25-115) Lipase 81 U/L (73-393) Intake and Output 10/01/17 10/02/17 19:00 07:00 Intake Total 1122 ml 1480 ml Output Total 470 ml 420 ml Balance 652 ml 1060 ml IV Total 1122 ml 1200 ml Tube Feeding 280 ml Output Urine Total 470 ml 420 ml # Bowel Movements 1 5 Objective General Appearance: lethargic, thin EENT: normal ENT inspection Neck: non-tender, normal alignment, supple Cardiovascular: normal peripheral pulses, normal rate, regular rhythm, no gallop/murmur, no JVD Respiratory/Chest: Mechanical vent; respiratory distress, crackles/rales, rhonchi - bilaterally, expiratory wheezing Abdomen: normal bowel sounds, non tender, soft, no organomegaly, no mass Skin: normal pigmentation, warm/dry Assessment/Plan Problem List: (1) HTN (hypertension) Assessment & Plan: Currently hypotensive. (2) Arthritis, rheumatoid (3) Parkinsons disease (4) Aplastic anemia (5) GERD (gastroesophageal reflux disease) (6) Respiratory failure Assessment & Plan: Tracheostomy scheduled next week-see surgery note. Cont vent per pulmonary (7) Pneumonia (8) Dyspnea (9) Sepsis Assessment & Plan: Blood culture neg. Continue Amikacin, micafungin and flagyl per ID (10) ARDS (adult respiratory distress syndrome) Assessment & Plan: See pulmonary note (11) UTI (urinary tract infection) Assessment & Plan: E.Coli. Continue abx per ID (12) Anemia Assessment & Plan: S/P Transfusion 2 units PRBC (13) Diabetes mellitus, type II Assessment & Plan: Continue novolog sliding scale (14) Leukocytosis Assessment & Plan: Worsening. See ID note. Start amikacin and fluconazole (15) Thrombocytopenia SINA BOWENS Oct 02, 2017 18:23
--- NOTE | 2017-10-02 19:25 | Wound Care Consultation ---
Wound Assessment Wound Assessment #1: Wound Present on Admission: No New Wound: Yes Status Change of Wound: No Wound Location Body Site Modif: left, plantar Wound Location Body Site: metatarsal head - 1st Wound Type: scab Gray Test: Does not Gray Wound Thickness: Full Thickness Wound Length: 0.5 Wound Width: 0.5 Wound Depth: utd Percent of Wound Bed Yellow/Wh: 100 - dry Wound Drainage Amount: None Wound Drainage Odor: None/Absent Tissue Surrounding Wound: Erythemic Wound General Appearance: Reddened Wound Assessment #2: Wound Number: 2 Wound Present on Admission: No New Wound: Yes Status Change of Wound: No Wound Location Body Site: perineal area Wound Type: chemical burn Gray Test: Does not Gray Percent of Wound [place]/Red: 100 Wound Drainage Amount: None Wound Drainage Odor: None/Absent Tissue Surrounding Wound: Erythemic Wound General Appearance: Reddened Wound Comment #1 Chemical burn on perineal area #2 Left plantar 1st metatarsal head dry scab Reassessed this Pt no deterioration noted. will cont same wound care treatment and recommendation below Recommendation -Local wound care per protocol -Keep clean and dry -Optimize nutrition -Heel protector on both heels -Offload both heels -Low air loss mattress -Turn and reposition -Assess and f/u accordingly for any changes TANK FRACNES RN Oct 02, 2017 19:25
[2017-10-02] MEDS: Miralax 17gm pkt ORAL SCH (20:41)
--- NOTE | 2017-10-02 21:45 | General Progress Note ---
Assessment/Plan Problem List: (1) Arthritis, rheumatoid ICD Codes: M06.9 - Rheumatoid arthritis, unspecified SNOMED: 07432586 (2) Aspiration pneumonia ICD Codes: J69.0 - Pneumonitis due to inhalation of food and vomit SNOMED: 217854209 (3) Diabetes mellitus ICD Codes: E11.9 - Type 2 diabetes mellitus without complications SNOMED: 70831586 (4) ARDS (adult respiratory distress syndrome) ICD Codes: J80 - Acute respiratory distress syndrome SNOMED: 29724160 (5) Transaminitis ICD Codes: R74.0 - Nonspecific elevation of levels of transaminase and lactic acid dehydrogenase [LDH] SNOMED: 777358778, 627906402 (6) Dyspnea ICD Codes: R06.00 - Dyspnea, unspecified SNOMED: 673886559 (7) Parkinsons disease ICD Codes: G20 - Parkinson's disease SNOMED: 05651200 (8) Sepsis ICD Codes: A41.9 - Sepsis, unspecified organism SNOMED: 77228398 (9) GERD (gastroesophageal reflux disease) ICD Codes: K21.9 - Gastro-esophageal reflux disease without esophagitis SNOMED: 907847135 (10) Aplastic anemia ICD Codes: D61.9 - Aplastic anemia, unspecified SNOMED: 861753326 (11) Pneumonia ICD Codes: J18.9 - Pneumonia, unspecified organism SNOMED: 938602129 (12) HTN (hypertension) ICD Codes: I10 - Essential (primary) hypertension SNOMED: 31049424 Assessment/Plan Encephalopathy, agitation, psychotic disorder. -cont current meds -ativan prn Subjective Date patient seen: Oct 02, 2017 Allergies: Coded Allergies: No Known Allergies (Verified , 11/18/08) Objective Last 24 Hour Vital Signs Date Time Temp Pulse Resp B/P (MAP) Pulse Ox O2 Delivery O2 Flow Rate FiO2 10/02/17 21:22 99 24 45 10/02/17 20:48 101 118/58 10/02/17 19:13 100 25 45 10/02/17 19:00 101 18 109/75 100 Mechanical Ventilator 60 10/02/17 18:00 97 22 136/62 100 Mechanical Ventilator 60 10/02/17 17:00 98.2 100 22 124/62 97 Mechanical Ventilator 60 98.2 10/02/17 16:48 101 21 50 10/02/17 16:00 100 21 128/65 98 Mechanical Ventilator 60 10/02/17 16:00 60 10/02/17 16:00 99 10/02/17 15:00 98 23 123/64 97 Mechanical Ventilator 60 10/02/17 14:54 98 24 50 10/02/17 14:00 99 23 123/64 97 Mechanical Ventilator 60 10/02/17 13:00 97 23 125/59 97 Mechanical Ventilator 60 10/02/17 12:45 91 19 50 10/02/17 12:00 88 10/02/17 12:00 60 10/02/17 12:00 98.7 95 31 125/75 97 Mechanical Ventilator 60 98.7 10/02/17 12:00 105 10/02/17 11:00 90 22 104/52 96 Mechanical Ventilator 60 10/02/17 10:41 91 19 50 10/02/17 10:00 91 18 110/63 96 Mechanical Ventilator 60 10/02/17 09:00 105 40 142/63 96 Mechanical Ventilator 60 10/02/17 08:58 100 24 50 10/02/17 08:26 104 121/59 10/02/17 08:00 105 10/02/17 08:00 60 10/02/17 08:00 98.4 105 23 121/59 95 Mechanical Ventilator 60 98.4 10/02/17 07:09 102 23 50 10/02/17 07:00 100 21 116/56 94 Mechanical Ventilator 60 10/02/17 06:00 105 22 121/58 94 Mechanical Ventilator 60 10/02/17 05:24 102 20 50 10/02/17 05:00 88 21 113/56 97 Mechanical Ventilator 60 10/02/17 04:00 98.8 91 22 118/87 95 Mechanical Ventilator 60 98.8 10/02/17 04:00 91 10/02/17 04:00 60 10/02/17 03:00 88 20 110/56 97 Mechanical Ventilator 60 10/02/17 02:19 91 19 50 10/02/17 02:00 91 21 114/58 97 Mechanical Ventilator 60 10/02/17 01:00 95 18 116/61 97 Mechanical Ventilator 60 10/02/17 00:57 92 20 50 10/02/17 00:00 98.7 94 21 120/60 95 Mechanical Ventilator 60 98.7 3/22/18 00:00 60 10/01/17 23:17 91 18 50 10/01/17 23:00 94 19 116/58 97 Mechanical Ventilator 60 10/01/17 22:00 87 18 107/61 98 Mechanical Ventilator 60 Intake and Output 10/01/17 10/02/17 19:00 07:00 Intake Total 1122 ml 1480 ml Output Total 470 ml 420 ml Balance 652 ml 1060 ml IV Total 1122 ml 1200 ml Tube Feeding 280 ml Output Urine Total 470 ml 420 ml # Bowel Movements 1 5 Laboratory Tests 10/02/17 05:00: White Blood Count 7.1, Red Blood Count 3.19L, Hemoglobin 10.3L, Hematocrit 32.2L , Mean Corpuscular Volume 101H, Mean Corpuscular Hemoglobin 32.1H, Mean Corpuscular Hemoglobin Concent 31.9L, Red Cell Distribution Width 20.2H, Platelet Count 81L, Mean Platelet Volume 11.3H, Neutrophils (%) (Auto) , Lymphocytes (%) (Auto) , Monocytes (%) (Auto) , Eosinophils (%) (Auto) , Basophils (%) (Auto) , Differential Total Cells Counted 100, Neutrophils % ( Manual) 91H, Lymphocytes % (Manual) 5L, Monocytes % (Manual) 3, Eosinophils % ( Manual) 1, Basophils % (Manual) 0, Band Neutrophils 0, Platelet Estimate DecreasedL, Platelet Morphology Normal, Anisocytosis 1+, Macrocytosis 1+, Acanthocytes 1+, Erythrocyte Sedimentation Rate 102H, Sodium Level 152H, Potassium Level 3.2L, Chloride Level 116H, Carbon Dioxide Level 26, Anion Gap 10 , Blood Urea Nitrogen 31H, Creatinine 0.8, Estimat Glomerular Filtration Rate , Glucose Level 82, Calcium Level 7.3L, Total Bilirubin 1.8H, Direct Bilirubin 0.9H, Aspartate Amino Transf (AST/SGOT) 32, Alanine Aminotransferase (ALT/SGPT) 16, Alkaline Phosphatase 409H, Total Protein 5.4L, Albumin 1.6L, Globulin 3.8, Albumin/Globulin Ratio 0.4L, Amylase Level 27, Lipase 81 Height (Feet): 5 Height (Inches): 0.00 Weight (Pounds): 114 Dary Nixon M.D. Oct 02, 2017 21:45
[2017-10-02] MEDS: Amikacin 500 MG in NS 110 ML IV SCH (23:46)
[2017-10-03] VITALS (24 sets, daily range): BP systolic 117–144; BP diastolic 53–73
[2017-10-03] MEDS: Acetaminophen 650mg/20.3ml NG PRN ×2 (01:11→12:25)
[2017-10-03 03:49] LABS: HEMATOCRIT 31.2 % (37.0-47.0); MEAN CORPUSCULAR VOLUME 99 FL (80-99); PLATELET COUNT 88 K/UL (150-450); RED BLOOD COUNT 3.14 M/UL (4.20-5.40)
[2017-10-03 04:11] LABS: ALANINE AMINOTRANSFERASE 18 U/L (12-78); ALBUMIN 1.5 G/DL (3.4-5.0); ALBUMIN/GLOBULIN RATIO 0.4 (1.0-2.7); ALKALINE PHOSPHATASE 564 U/L (46-116); ANION GAP 6 mmol/L (5-15); ASPARTATE AMINO TRANSFERASE 47 U/L (15-37); BLOOD UREA NITROGEN 25 mg/dL (7-18); CALCIUM 7.4 MG/DL (8.5-10.1); CARBON DIOXIDE 26 MMOL/L (21-32); CHLORIDE 114 MMOL/L (98-107); CREATININE 0.8 MG/DL (0.55-1.30); PHOSPHORUS 3.1 MG/DL (2.5-4.9); POTASSIUM 3.6 MMOL/L (3.5-5.1); SODIUM 146 MMOL/L (136-145)
[2017-10-03 04:31] LABS: BILIRUBIN,DIRECT 5.1 MG/DL (0.0-0.3)
[2017-10-03] MEDS: NovoLOG Insulin Flexpen SUBQ SCH ×3 (05:40→18:59)
[2017-10-03] MEDS: Potassium Chloride 10 MEQ in D5 1/2NS 1,000 ML IV SCH (06:27)
[2017-10-03] MEDS: Ketotifen Fumarate 0.035% 5ml BOTH EYES SCH (08:59)
[2017-10-03] MEDS: dilTIAZem HCl 25mg/5ml Inj IVP SCH ×2 (08:59→21:50)
[2017-10-03] MEDS: Pantoprazole Inj IVP SCH (08:59)
--- NOTE | 2017-10-03 10:06 | Diagnostic Imaging Report ---
Indication: Dyspnea Technique: One view of the chest Comparison: 09/30/2017 Findings: Extensive bilateral diffuse infiltrates versus edema again demonstrated, appear equivocally slightly less dense. Stable satisfactory positions of endotracheal and nasogastric tubes. Trace bilateral pleural effusions are likely, unchanged Impression: Possible slight improvement of diffuse extensive parenchymal infiltrates versus edema, over 3 days Other stable findings as described
--- NOTE | 2017-10-03 10:14 | Pulmonolgy Critical Care Note ---
Critical Care - Asmt/Plan Problems: (1) ARDS (adult respiratory distress syndrome) (2) Aspiration pneumonia (3) Anemia (4) Thrombocytopenia (5) Diabetes mellitus (6) Protein-calorie malnutrition, severe Respiratory: monitor respiratory rate, adjust FIO2, CXR Cardiac: continue to monitor HR/BP Renal: F/U I&O, keep IV fluid, check electrolytes Infectious Disease: continue antibiotics, add antibiotics Gastrointestinal: continue feedings/current rate Endocrine: monitor blood sugar, check HgA1C, continue sliding scale insulin Hematologic: transfuse if hgb<8.5 Neurologic: PRN Ativan, PRN Morphine, keep patient comfortable Affect: PRN ativan Prophylaxis: Protonix, Heparin Notes Reviewed: ops analyst, cardio, renal Discussed with: nurses, consultants, wrapper casertitle manager - Objective Last 24 Hour Vital Signs Date Time Temp Pulse Resp B/P (MAP) Pulse Ox O2 Delivery O2 Flow Rate FiO2 10/03/17 09:00 102 29 117/57 97 Mechanical Ventilator 45 10/03/17 08:59 109 130/61 10/03/17 08:49 109 24 45 10/03/17 08:00 45 10/03/17 08:00 99 10/03/17 08:00 99.5 106 30 126/62 95 Mechanical Ventilator 45 99.5 10/03/17 07:07 110 31 45 10/03/17 07:00 100 25 125/64 96 Mechanical Ventilator 45 10/03/17 06:00 103 25 118/60 96 Mechanical Ventilator 45 10/03/17 05:26 110 26 45 10/03/17 05:00 103 25 120/58 96 Mechanical Ventilator 45 10/03/17 04:00 99.2 111 25 128/64 95 Mechanical Ventilator 45 99.2 10/03/17 04:00 110 10/03/17 04:00 45 10/03/17 03:00 111 25 130/64 95 Mechanical Ventilator 45 10/03/17 02:54 116 27 45 10/03/17 02:00 111 26 135/63 96 Mechanical Ventilator 45 10/03/17 01:00 105 29 137/63 95 Mechanical Ventilator 45 10/03/17 00:51 105 27 45 10/03/17 00:00 99.1 105 26 136/73 95 Mechanical Ventilator 45 99.1 10/03/17 00:00 45 10/03/17 00:00 100 10/02/17 23:09 103 26 45 10/02/17 23:00 105 26 128/66 95 Mechanical Ventilator 45 10/02/17 22:00 104 26 137/66 95 Mechanical Ventilator 45 10/02/17 21:22 99 24 45 10/02/17 21:00 100 26 130/60 96 Mechanical Ventilator 45 10/02/17 20:48 101 118/58 10/02/17 20:00 45 10/02/17 20:00 101 10/02/17 20:00 98.4 101 34 123/58 96 Mechanical Ventilator 45 98.4 10/02/17 20:00 45 10/02/17 19:13 100 25 45 10/02/17 19:00 101 18 109/75 100 Mechanical Ventilator 60 10/02/17 18:00 97 22 136/62 100 Mechanical Ventilator 60 10/02/17 17:00 98.2 100 22 124/62 97 Mechanical Ventilator 60 98.2 10/02/17 16:48 101 21 50 10/02/17 16:00 100 21 128/65 98 Mechanical Ventilator 60 10/02/17 16:00 60 10/02/17 16:00 99 10/02/17 15:00 98 23 123/64 97 Mechanical Ventilator 60 10/02/17 14:54 98 24 50 10/02/17 14:00 99 23 123/64 97 Mechanical Ventilator 60 10/02/17 13:00 97 23 125/59 97 Mechanical Ventilator 60 10/02/17 12:45 91 19 50 10/02/17 12:00 88 10/02/17 12:00 60 10/02/17 12:00 98.7 95 31 125/75 97 Mechanical Ventilator 60 98.7 10/02/17 12:00 105 10/02/17 11:00 90 22 104/52 96 Mechanical Ventilator 60 10/02/17 10:41 91 19 50 Status: sedated Condition: critical HEENT: atraumatic Lungs: clear Heart: HR/BP stable, HR/BP unstable Abdomen: soft, non-tender, feeding tube Extremities: no C/C/E, edema Decubiti: location Accucheck: 158 Critical Care - Subjective ROS Limited/Unobtainable: No ICU Day: 22 Intubation Day: 22 Condition: critical EKG Rhythm: Sinus Rhythm FI02: 45 Vent Support Breath Rate: 18 Vent Support Mode: AC Vent Tidal Volume: 500 Sputum Amount: Scant PEEP: 5.0 PIP: 54 Tube Feeding Amount: 50 I&O: Intake and Output 10/02/17 10/03/17 19:00 07:00 Intake Total 1760 ml 1910 ml Output Total 1165 ml 590 ml Balance 595 ml 1320 ml Intake Free Water 110 ml IV Total 1110 ml 1200 ml Tube Feeding 500 ml 600 ml Other 150 ml Output Urine Total 1165 ml 590 ml # Bowel Movements 3 4 CXR: slight improvement ET-Tube: 7.5 ET Position: 20 Labs: Laboratory Tests Test 10/03/17 03:20 White Blood Count 9.0 K/UL (4.8-10.8) Red Blood Count 3.14 M/UL (4.20-5.40) L Hemoglobin 10.0 G/DL (12.0-16.0) L Hematocrit 31.2 % (37.0-47.0) L Mean Corpuscular Volume 99 FL (80-99) Mean Corpuscular Hemoglobin 31.7 PG (27.0-31.0) H Mean Corpuscular Hemoglobin Concent 31.9 G/DL (32.0-36.0) L Red Cell Distribution Width 19.0 % (11.6-14.8) H Platelet Count 88 K/UL (150-450) L Mean Platelet Volume 9.6 FL (6.5-10.1) Neutrophils (%) (Auto) % (45.0-75.0) Lymphocytes (%) (Auto) % (20.0-45.0) Monocytes (%) (Auto) % (1.0-10.0) Eosinophils (%) (Auto) % (0.0-3.0) Basophils (%) (Auto) % (0.0-2.0) Sodium Level 146 MMOL/L (136-145) H Potassium Level 3.6 MMOL/L (3.5-5.1) Chloride Level 114 MMOL/L (98-107) H Carbon Dioxide Level 26 MMOL/L (21-32) Anion Gap 6 mmol/L (5-15) Blood Urea Nitrogen 25 mg/dL (7-18) H Creatinine 0.8 MG/DL (0.55-1.30) Estimat Glomerular Filtration Rate mL/min (>60) Glucose Level 169 MG/DL (74-106) H Calcium Level 7.4 MG/DL (8.5-10.1) L Phosphorus Level 3.1 MG/DL (2.5-4.9) Magnesium Level 1.7 MG/DL (1.8-2.4) L Total Bilirubin 6.0 MG/DL (0.2-1.0) H Direct Bilirubin 5.1 MG/DL (0.0-0.3) H Aspartate Amino Transf (AST/SGOT) 47 U/L (15-37) H Alanine Aminotransferase (ALT/SGPT) 18 U/L (12-78) Alkaline Phosphatase 564 U/L (46-116) H Total Protein 5.5 G/DL (6.4-8.2) L Albumin 1.5 G/DL (3.4-5.0) L Globulin 4.0 g/dL Albumin/Globulin Ratio 0.4 (1.0-2.7) L Tayler Liu MD Oct 03, 2017 10:14
[2017-10-03] MEDS: Micafungin 100 MG in NS 110 ML IVPB SCH (13:08)
--- NOTE | 2017-10-03 13:59 | Infectious Diseases Prog Note ---
Assessment/Plan Assessment/Plan The patient is a 76-year-old female w Fever, low grade, intermittent- r/o new infection Leukocytosis , resolved- likely cholangitis -Cdiff neg -09/22 sp cx C.a lbicans, Bcx Neg -u/a wbc 10-15, nit neg, leuk +2; ucx >100k C. albicans -Fungal sp cx p Community-acquired vs healthcare-associated pneumonia, s/p RX (the patient has been recently hospitalized in [facility]). -now ARDS- r/o fungal PNA -CXR 09/29: - cxray 09/26 : no changes -CT chest 09/23: Diffuse extensive pulmonary parenchymal disease, with dense consolidation interspersed with groundglass opacities. Appearance nonspecific, possibilities include pulmonary edema, pneumonia, ARDS, hemorrhage. Bilateral pleural effusions, left greater than right. Diffuse edema of the subcutaneous fat, Multiple small thyroid nodules. All apparently under 1 cm, no further follow-up necessary. Degenerative changes of the shoulders 09/19 xray : Unchanged diffuse interstitial and airspace edema, -CrAg serum, U legionell ag neg; Asp ag, Cocci, fungitell p Probable influenza despite of negative influenza screening test, s/p Rx Abnormal liver function tests, ALP>>> AST -2ry to sludged CBD ,cholangitis, obstruction on CBD; AST/ALT normal now, ALP improving -s/p ERCP with stent placement 10/01 -EUS 09/30: 1. Dilated common bile duct with lots of sludge in the distal common bile duct, most probably explanation for abnormal liver function tests. 2. Large ascites -Abd US 09/29: Cholelithiasis, better demonstrated than on prior exam. Thickened gallbladder wall could indicate acute cholecystitis. However, gallbladder wall thickening also evident on prior study of 09/19/2017, after which a hepatobiliary scan was negative, so suspect this is more likely due to hemodynamic derangements given presence of ascites and pleural fluid. Extrahepatic biliary ductal dilatation, equivocally slightly increased from 2017. Downstream obstruction not excludable. Coarsened hepatic echotexture, consistent with hepatocellular disease, nonspecific as regards etiology. Equivocal hepatic surface micronodularity, could indicate early cirrhotic changes. -HIDA scan: Negative for evidence of cystic duct obstruction/acute cholecystitis. Common bile duct is demonstrated be patent, but emptying into the duodenum is delayed, not seen until 2 hours. Significance of this is uncertain. MRCP or CT scanning may be useful to clarify -CT abd/p 09/23: Evidence of anasarca, with diffuse edema subcutaneous and mesenteric fat, bilateral pleural effusions, possible pulmonary edema, trace ascites. Densities within the gallbladder, probably reflecting tiny gallstones, although these are not identifiable on recent ultrasound. Gallbladder wall edema is probably a manifestation of anasarca, as recent hepatobiliary scan was negative for acute cholecystitis. Old ununited fracture deformities of the right pelvis. Bilateral chronic appearing hip dislocations Ultrasound of the abdomen : Gallbladder sludge. No definite stones. 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 -R/o HIT. Abx and protonix could be also be contributors. VDRF / ARDS HTN GERD History of auditory hallucination. Depression. Anemia. Rheumatoid arthritis. History of gastritis. PLAN: -Continue Micafungin #4/5-7 for cholangitis 10/02 SP Amikacin #10 09/30 SP Flagyl #8 09/25 sp Fluconazole #3 (held due to rise ALP) 09/23 SP Meropenem #5, PO Vanco #2 09/21 SP tamiflu #10 -Repeat cultures -f/u Asp ag, fungitell, Cocci ab, fungal sp cx Monitor CBC.; Trend WBC Monitor BMP.; Trend LFTs Monitor chest x-ray -GI, heme onc f/u Subjective Allergies: Coded Allergies: No Known Allergies (Verified , 11/18/08) Subjective low grade fever , Tm 100.1 no leukocytosis Fio2 downt o 45% CXR mildly improved Objective Vital Signs Last 24 Hour Vital Signs Date Time Temp Pulse Resp B/P (MAP) Pulse Ox O2 Delivery O2 Flow Rate FiO2 10/03/17 13:00 103 30 121/59 97 Mechanical Ventilator 45 10/03/17 12:48 112 25 45 10/03/17 12:25 100.1 10/03/17 12:00 99 10/03/17 12:00 100.1 92 30 126/60 97 Mechanical Ventilator 45 100.1 10/03/17 12:00 45 3/23/18 11:00 107 29 128/66 97 Mechanical Ventilator 45 10/03/17 10:48 101 23 45 10/03/17 10:00 106 27 144/61 97 Mechanical Ventilator 45 10/03/17 09:00 102 29 117/57 97 Mechanical Ventilator 45 10/03/17 08:59 109 130/61 10/03/17 08:49 109 24 45 10/03/17 08:00 45 10/03/17 08:00 99 10/03/17 08:00 99.5 106 30 126/62 95 Mechanical Ventilator 45 99.5 10/03/17 07:07 110 31 45 10/03/17 07:00 100 25 125/64 96 Mechanical Ventilator 45 10/03/17 06:00 103 25 118/60 96 Mechanical Ventilator 45 10/03/17 05:26 110 26 45 10/03/17 05:00 103 25 120/58 96 Mechanical Ventilator 45 10/03/17 04:00 99.2 111 25 128/64 95 Mechanical Ventilator 45 99.2 10/03/17 04:00 110 10/03/17 04:00 45 10/03/17 03:00 111 25 130/64 95 Mechanical Ventilator 45 10/03/17 02:54 116 27 45 10/03/17 02:00 111 26 135/63 96 Mechanical Ventilator 45 10/03/17 01:00 105 29 137/63 95 Mechanical Ventilator 45 10/03/17 00:51 105 27 45 10/03/17 00:00 99.1 105 26 136/73 95 Mechanical Ventilator 45 99.1 10/03/17 00:00 45 10/03/17 00:00 100 10/02/17 23:09 103 26 45 10/02/17 23:00 105 26 128/66 95 Mechanical Ventilator 45 10/02/17 22:00 104 26 137/66 95 Mechanical Ventilator 45 10/02/17 21:22 99 24 45 10/02/17 21:00 100 26 130/60 96 Mechanical Ventilator 45 10/02/17 20:48 101 118/58 10/02/17 20:00 45 10/02/17 20:00 101 10/02/17 20:00 98.4 101 34 123/58 96 Mechanical Ventilator 45 98.4 10/02/17 20:00 45 10/02/17 19:13 100 25 45 10/02/17 19:00 101 18 109/75 100 Mechanical Ventilator 60 10/02/17 18:00 97 22 136/62 100 Mechanical Ventilator 60 10/02/17 17:00 98.2 100 22 124/62 97 Mechanical Ventilator 60 98.2 10/02/17 16:48 101 21 50 10/02/17 16:00 100 21 128/65 98 Mechanical Ventilator 60 10/02/17 16:00 60 10/02/17 16:00 99 10/02/17 15:00 98 23 123/64 97 Mechanical Ventilator 60 10/02/17 14:54 98 24 50 10/02/17 14:00 99 23 123/64 97 Mechanical Ventilator 60 Height (Feet): 5 Height (Inches): 0.00 Weight (Pounds): 109 Objective General Appearance: lethargic, thin EENT: normal ENT inspection Neck: non-tender, normal alignment, supple Cardiovascular: normal peripheral pulses, normal rate, regular rhythm, no gallop/murmur, no JVD Respiratory/Chest: Mechanical vent; respiratory distress, crackles/rales, rhonchi - bilaterally, expiratory wheezing Abdomen: normal bowel sounds, non tender, soft, no organomegaly, no mass Skin: normal pigmentation, warm/dry Laboratory Tests Test 10/03/17 03:20 10/03/17 10:03 White Blood Count 9.0 K/UL (4.8-10.8) Red Blood Count 3.14 M/UL (4.20-5.40) L Hemoglobin 10.0 G/DL (12.0-16.0) L Hematocrit 31.2 % (37.0-47.0) L Mean Corpuscular Volume 99 FL (80-99) Mean Corpuscular Hemoglobin 31.7 PG (27.0-31.0) H Mean Corpuscular Hemoglobin Concent 31.9 G/DL (32.0-36.0) L Red Cell Distribution Width 19.0 % (11.6-14.8) H Platelet Count 88 K/UL (150-450) L Mean Platelet Volume 9.6 FL (6.5-10.1) Neutrophils (%) (Auto) % (45.0-75.0) Lymphocytes (%) (Auto) % (20.0-45.0) Monocytes (%) (Auto) % (1.0-10.0) Eosinophils (%) (Auto) % (0.0-3.0) Basophils (%) (Auto) % (0.0-2.0) Sodium Level 146 MMOL/L (136-145) H Potassium Level 3.6 MMOL/L (3.5-5.1) Chloride Level 114 MMOL/L (98-107) H Carbon Dioxide Level 26 MMOL/L (21-32) Anion Gap 6 mmol/L (5-15) Blood Urea Nitrogen 25 mg/dL (7-18) H Creatinine 0.8 MG/DL (0.55-1.30) Estimat Glomerular Filtration Rate mL/min (>60) Glucose Level 169 MG/DL (74-106) H Calcium Level 7.4 MG/DL (8.5-10.1) L Phosphorus Level 3.1 MG/DL (2.5-4.9) Magnesium Level 1.7 MG/DL (1.8-2.4) L Total Bilirubin 6.0 MG/DL (0.2-1.0) H Direct Bilirubin 5.1 MG/DL (0.0-0.3) H Aspartate Amino Transf (AST/SGOT) 47 U/L (15-37) H Alanine Aminotransferase (ALT/SGPT) 18 U/L (12-78) Alkaline Phosphatase 564 U/L (46-116) H Total Protein 5.5 G/DL (6.4-8.2) L Albumin 1.5 G/DL (3.4-5.0) L Globulin 4.0 g/dL Albumin/Globulin Ratio 0.4 (1.0-2.7) L Arterial Blood pH 7.420 (7.350-7.450) Arterial Blood Partial Pressure CO2 32.4 mmHg (35.0-45.0) L Arterial Blood Partial Pressure O2 70.6 mmHg (75.0-100.0) L Arterial Blood HCO3 21.0 mmol/L (22.0-26.0) L Arterial Blood Oxygen Saturation 94.3 % (92.0-98.0) Arterial Blood Base Excess -2.6 Luis A Test Positive Current Medications Medications (Trade) Dose Ordered Sig/Hermes Route PRN Reason Start Time Stop Time Status Last Admin Dose Admin Acetaminophen (Tylenol) 650 mg EVERY 6 HOURS PRN NG Fever/Headache/Mild Pain 09/13/17 20:45 10/13/17 20:44 10/03/17 12:25 Clonidine HCl (Catapres Tab) 0.1 mg Q4H PRN ORAL SBP>160 UNRELIEVED BY HYDRALAZ 09/16/17 16:45 10/15/17 16:59 Dextrose (Dextrose 50%) STAT PRN IV Hypoglycemia 09/13/17 15:00 10/13/17 14:59 Diltiazem HCl (Cardizem) 5 mg Q12HR IVP 10/02/17 09:00 11/01/17 08:59 10/03/17 08:59 Insulin Aspart (NovoLOG) EVERY 6 HOURS SUBQ 09/17/17 12:00 10/17/17 11:59 10/03/17 11:42 Ketotifen Fumarate (Zatidor) 1 drop DAILY BOTH EYES 09/26/17 09:00 10/25/17 08:59 10/03/17 08:59 Micafungin Sodium 100 mg/Sodium Chloride 110 ml @ 110 mls/hr Q24H IVPB 09/30/17 13:00 10/07/17 12:59 10/03/17 13:08 Pantoprazole (Protonix) 40 mg DAILY IVP 10/02/17 09:00 11/01/17 08:59 10/03/17 08:59 Polyethylene Glycol (Miralax) 17 gm BEDTIME ORAL 09/14/17 21:00 10/14/17 20:59 09/30/17 20:36 Madelyn Frey M.D. Oct 03, 2017 13:58
--- NOTE | 2017-10-03 14:57 | General Progress Note ---
Assessment/Plan Problem List: (1) Arthritis, rheumatoid ICD Codes: M06.9 - Rheumatoid arthritis, unspecified SNOMED: 33737736 (2) Aspiration pneumonia ICD Codes: J69.0 - Pneumonitis due to inhalation of food and vomit SNOMED: 172627680 (3) Diabetes mellitus ICD Codes: E11.9 - Type 2 diabetes mellitus without complications SNOMED: 93747679 (4) ARDS (adult respiratory distress syndrome) ICD Codes: J80 - Acute respiratory distress syndrome SNOMED: 59352016 (5) Transaminitis ICD Codes: R74.0 - Nonspecific elevation of levels of transaminase and lactic acid dehydrogenase [LDH] SNOMED: 945975107, 272432061 (6) Dyspnea ICD Codes: R06.00 - Dyspnea, unspecified SNOMED: 836761886 (7) Parkinsons disease ICD Codes: G20 - Parkinson's disease SNOMED: 95435982 (8) Sepsis ICD Codes: A41.9 - Sepsis, unspecified organism SNOMED: 88851646 (9) GERD (gastroesophageal reflux disease) ICD Codes: K21.9 - Gastro-esophageal reflux disease without esophagitis SNOMED: 720299363 (10) Aplastic anemia ICD Codes: D61.9 - Aplastic anemia, unspecified SNOMED: 057585789 (11) Pneumonia ICD Codes: J18.9 - Pneumonia, unspecified organism SNOMED: 591480199 (12) HTN (hypertension) ICD Codes: I10 - Essential (primary) hypertension SNOMED: 71129143 Assessment/Plan Encephalopathy, agitation, psychotic disorder. -cont current meds -ativan prn Subjective Date patient seen: Oct 03, 2017 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: Reports: anxiety, depressed Allergies: Coded Allergies: No Known Allergies (Verified , 11/18/08) Objective Last 24 Hour Vital Signs Date Time Temp Pulse Resp B/P (MAP) Pulse Ox O2 Delivery O2 Flow Rate FiO2 10/03/17 13:00 103 30 121/59 97 Mechanical Ventilator 45 10/03/17 12:55 99.8 10/03/17 12:48 112 25 45 10/03/17 12:25 100.1 10/03/17 12:00 99 10/03/17 12:00 100.1 92 30 126/60 97 Mechanical Ventilator 45 100.1 10/03/17 12:00 45 10/03/17 11:00 107 29 128/66 97 Mechanical Ventilator 45 10/03/17 10:48 101 23 45 10/03/17 10:00 106 27 144/61 97 Mechanical Ventilator 45 10/03/17 09:00 102 29 117/57 97 Mechanical Ventilator 45 10/03/17 08:59 109 130/61 10/03/17 08:49 109 24 45 10/03/17 08:00 45 10/03/17 08:00 99 10/03/17 08:00 99.5 106 30 126/62 95 Mechanical Ventilator 45 99.5 10/03/17 07:07 110 31 45 10/03/17 07:00 100 25 125/64 96 Mechanical Ventilator 45 10/03/17 06:00 103 25 118/60 96 Mechanical Ventilator 45 10/03/17 05:26 110 26 45 10/03/17 05:00 103 25 120/58 96 Mechanical Ventilator 45 10/03/17 04:00 99.2 111 25 128/64 95 Mechanical Ventilator 45 99.2 10/03/17 04:00 110 10/03/17 04:00 45 10/03/17 03:00 111 25 130/64 95 Mechanical Ventilator 45 10/03/17 02:54 116 27 45 10/03/17 02:00 111 26 135/63 96 Mechanical Ventilator 45 10/03/17 01:00 105 29 137/63 95 Mechanical Ventilator 45 10/03/17 00:51 105 27 45 10/03/17 00:00 99.1 105 26 136/73 95 Mechanical Ventilator 45 99.1 10/03/17 00:00 45 10/03/17 00:00 100 10/02/17 23:09 103 26 45 10/02/17 23:00 105 26 128/66 95 Mechanical Ventilator 45 10/02/17 22:00 104 26 137/66 95 Mechanical Ventilator 45 10/02/17 21:22 99 24 45 10/02/17 21:00 100 26 130/60 96 Mechanical Ventilator 45 10/02/17 20:48 101 118/58 10/02/17 20:00 45 10/02/17 20:00 101 10/02/17 20:00 98.4 101 34 123/58 96 Mechanical Ventilator 45 98.4 10/02/17 20:00 45 10/02/17 19:13 100 25 45 10/02/17 19:00 101 18 109/75 100 Mechanical Ventilator 60 10/02/17 18:00 97 22 136/62 100 Mechanical Ventilator 60 10/02/17 17:00 98.2 100 22 124/62 97 Mechanical Ventilator 60 98.2 10/02/17 16:48 101 21 50 10/02/17 16:00 100 21 128/65 98 Mechanical Ventilator 60 10/02/17 16:00 60 10/02/17 16:00 99 10/02/17 15:00 98 23 123/64 97 Mechanical Ventilator 60 Intake and Output 10/02/17 10/03/17 19:00 07:00 Intake Total 1760 ml 1910 ml Output Total 1165 ml 590 ml Balance 595 ml 1320 ml Intake Free Water 110 ml IV Total 1110 ml 1200 ml Tube Feeding 500 ml 600 ml Other 150 ml Output Urine Total 1165 ml 590 ml # Bowel Movements 3 4 Laboratory Tests 10/03/17 03:20: White Blood Count 9.0, Red Blood Count 3.14L, Hemoglobin 10.0L, Hematocrit 31.2L , Mean Corpuscular Volume 99, Mean Corpuscular Hemoglobin 31.7H, Mean Corpuscular Hemoglobin Concent 31.9L, Red Cell Distribution Width 19.0H, Platelet Count 88L, Mean Platelet Volume 9.6, Neutrophils (%) (Auto) , Lymphocytes (%) (Auto) , Monocytes (%) (Auto) , Eosinophils (%) (Auto) , Basophils (%) (Auto) , Sodium Level 146H, Potassium Level 3.6, Chloride Level 114H, Carbon Dioxide Level 26, Anion Gap 6, Blood Urea Nitrogen 25H, Creatinine 0.8, Estimat Glomerular Filtration Rate , Glucose Level 169H, Calcium Level 7.4L , Phosphorus Level 3.1, Magnesium Level 1.7L, Total Bilirubin 6.0H, Direct Bilirubin 5.1H, Aspartate Amino Transf (AST/SGOT) 47H, Alanine Aminotransferase (ALT/SGPT) 18, Alkaline Phosphatase 564H, Total Protein 5.5L, Albumin 1.5L, Globulin 4.0, Albumin/Globulin Ratio 0.4L 10/03/17 10:03: Arterial Blood pH 7.420, Arterial Blood Partial Pressure CO2 32.4L, Arterial Blood Partial Pressure O2 70.6L, Arterial Blood HCO3 21.0L, Arterial Blood Oxygen Saturation 94.3, Arterial Blood Base Excess -2.6, Luis A Test Positive Height (Feet): 5 Height (Inches): 0.00 Weight (Pounds): 109 Dary Nixon M.D. Oct 03, 2017 14:57
--- NOTE | 2017-10-03 15:25 | Nephrology Progress Note ---
Assessment/Plan Problem List: (1) ARDS (adult respiratory distress syndrome) (2) Electrolyte imbalance (3) Thrombocytopenia Assessment Na 152 Platelets 17 K (1) ARDS (adult respiratory distress syndrome) (2) Aspiration pneumonia (3) Protein-calorie malnutrition, severe (4) Diabetes mellitus (5) Anemia , aplastic by history (6) DM (7) UTI (8) Electrolyte imbalance (9) HTN (10) Depression (11) RA . Plan k via NGT doing poorly water via NGT Adjust BP meds K and Phos supplement as needed Monitor renal parameters and urine output avoid nephrotoxics per orders discussed with RN Left ventricular ejection fraction estimated to be 55 %. Subjective ROS Limited/Unobtainable: Yes Objective Objective Last 24 Hour Vital Signs Date Time Temp Pulse Resp B/P (MAP) Pulse Ox O2 Delivery O2 Flow Rate FiO2 10/03/17 15:13 99 24 45 10/03/17 13:00 103 30 121/59 97 Mechanical Ventilator 45 10/03/17 12:55 99.8 10/03/17 12:48 112 25 45 10/03/17 12:25 100.1 10/03/17 12:00 99 10/03/17 12:00 100.1 92 30 126/60 97 Mechanical Ventilator 45 100.1 10/03/17 12:00 45 10/03/17 11:00 107 29 128/66 97 Mechanical Ventilator 45 10/03/17 10:48 101 23 45 10/03/17 10:00 106 27 144/61 97 Mechanical Ventilator 45 10/03/17 09:00 102 29 117/57 97 Mechanical Ventilator 45 10/03/17 08:59 109 130/61 10/03/17 08:49 109 24 45 10/03/17 08:00 45 10/03/17 08:00 99 10/03/17 08:00 99.5 106 30 126/62 95 Mechanical Ventilator 45 99.5 10/03/17 07:07 110 31 45 10/03/17 07:00 100 25 125/64 96 Mechanical Ventilator 45 10/03/17 06:00 103 25 118/60 96 Mechanical Ventilator 45 10/03/17 05:26 110 26 45 10/03/17 05:00 103 25 120/58 96 Mechanical Ventilator 45 10/03/17 04:00 99.2 111 25 128/64 95 Mechanical Ventilator 45 99.2 10/03/17 04:00 110 10/03/17 04:00 45 10/03/17 03:00 111 25 130/64 95 Mechanical Ventilator 45 10/03/17 02:54 116 27 45 10/03/17 02:00 111 26 135/63 96 Mechanical Ventilator 45 10/03/17 01:00 105 29 137/63 95 Mechanical Ventilator 45 10/03/17 00:51 105 27 45 10/03/17 00:00 99.1 105 26 136/73 95 Mechanical Ventilator 45 99.1 10/03/17 00:00 45 10/03/17 00:00 100 10/02/17 23:09 103 26 45 10/02/17 23:00 105 26 128/66 95 Mechanical Ventilator 45 10/02/17 22:00 104 26 137/66 95 Mechanical Ventilator 45 10/02/17 21:22 99 24 45 10/02/17 21:00 100 26 130/60 96 Mechanical Ventilator 45 10/02/17 20:48 101 118/58 10/02/17 20:00 45 10/02/17 20:00 101 10/02/17 20:00 98.4 101 34 123/58 96 Mechanical Ventilator 45 98.4 10/02/17 20:00 45 10/02/17 19:13 100 25 45 10/02/17 19:00 101 18 109/75 100 Mechanical Ventilator 60 10/02/17 18:00 97 22 136/62 100 Mechanical Ventilator 60 10/02/17 17:00 98.2 100 22 124/62 97 Mechanical Ventilator 60 98.2 10/02/17 16:48 101 21 50 10/02/17 16:00 100 21 128/65 98 Mechanical Ventilator 60 10/02/17 16:00 60 10/02/17 16:00 99 Intake and Output 10/02/17 10/03/17 19:00 07:00 Intake Total 1760 ml 1910 ml Output Total 1165 ml 590 ml Balance 595 ml 1320 ml Intake Free Water 110 ml IV Total 1110 ml 1200 ml Tube Feeding 500 ml 600 ml Other 150 ml Output Urine Total 1165 ml 590 ml # Bowel Movements 3 4 Laboratory Tests 10/03/17 03:20: White Blood Count 9.0, Red Blood Count 3.14L, Hemoglobin 10.0L, Hematocrit 31.2L , Mean Corpuscular Volume 99, Mean Corpuscular Hemoglobin 31.7H, Mean Corpuscular Hemoglobin Concent 31.9L, Red Cell Distribution Width 19.0H, Platelet Count 88L, Mean Platelet Volume 9.6, Neutrophils (%) (Auto) , Lymphocytes (%) (Auto) , Monocytes (%) (Auto) , Eosinophils (%) (Auto) , Basophils (%) (Auto) , Sodium Level 146H, Potassium Level 3.6, Chloride Level 114H, Carbon Dioxide Level 26, Anion Gap 6, Blood Urea Nitrogen 25H, Creatinine 0.8, Estimat Glomerular Filtration Rate , Glucose Level 169H, Calcium Level 7.4L , Phosphorus Level 3.1, Magnesium Level 1.7L, Total Bilirubin 6.0H, Direct Bilirubin 5.1H, Aspartate Amino Transf (AST/SGOT) 47H, Alanine Aminotransferase (ALT/SGPT) 18, Alkaline Phosphatase 564H, Total Protein 5.5L, Albumin 1.5L, Globulin 4.0, Albumin/Globulin Ratio 0.4L 10/03/17 10:03: Arterial Blood pH 7.420, Arterial Blood Partial Pressure CO2 32.4L, Arterial Blood Partial Pressure O2 70.6L, Arterial Blood HCO3 21.0L, Arterial Blood Oxygen Saturation 94.3, Arterial Blood Base Excess -2.6, Luis A Test Positive Height (Feet): 5 Height (Inches): 0.00 Weight (Pounds): 109 General Appearance: no apparent distress Objective no change YAEL HANSEN Oct 03, 2017 15:25
--- NOTE | 2017-10-03 16:27 | Cardiac Electrophysiology PN ---
Assessment/Plan Assessment/Plan 1. Respiratory failure, due to underlying ARDS , pneumonia. Intubated on the vent. Already ruled out for myocardial infarction. Now on 45% Fio2 with PEEP of 5. Tracheostomy on Friday if family consents 2. Left bundle-branch block. No evidence of advanced heart block. 3. HTN and diastolic dysfunction. On Cardizem 30 q8 hr. Echo EF 55% 4. Hypernatremia and Azotemia. F/U per Dr Mayer 5. Pneumonia and sepsis on IV antibiotics by Dr. Hunter. 6. Psychiatric disorder. 7. Anasarca. 3rd spacing. 8. Anemia with Hb 6.6 s/p PRBC. CT chest abdomen and pelvis without contrast no acute finding S/P EGD by Dr Walton 9. Severe thrombocytopenia. S/P platelet transfusion 10. Abnormal LFT, Biliary obstruction, possible cholangitis. S/P ERCP. CBD sludge Family undecided about repeat ERCP DW RN Subjective Subjective Intubated on Vent in ICU. In sinus tach less than 105. Off pressors. No SVT or VT Objective Last 24 Hour Vital Signs Date Time Temp Pulse Resp B/P (MAP) Pulse Ox O2 Delivery O2 Flow Rate FiO2 10/03/17 16:00 45 10/03/17 16:00 99.8 101 31 136/61 100 Mechanical Ventilator 45 99.8 10/03/17 15:13 99 24 45 10/03/17 15:00 101 31 136/61 98 Mechanical Ventilator 45 10/03/17 15:00 111 30 136/61 97 10/03/17 15:00 103 30 121/59 97 Mechanical Ventilator 45 10/03/17 14:00 101 27 125/56 97 Mechanical Ventilator 45 10/03/17 13:00 103 30 121/59 97 Mechanical Ventilator 45 10/03/17 12:55 99.8 10/03/17 12:48 112 25 45 10/03/17 12:25 100.1 10/03/17 12:00 99 10/03/17 12:00 100.1 92 30 126/60 97 Mechanical Ventilator 45 100.1 10/03/17 12:00 45 10/03/17 11:00 107 29 128/66 97 Mechanical Ventilator 45 10/03/17 10:48 101 23 45 10/03/17 10:00 106 27 144/61 97 Mechanical Ventilator 45 10/03/17 09:00 102 29 117/57 97 Mechanical Ventilator 45 10/03/17 08:59 109 130/61 10/03/17 08:49 109 24 45 10/03/17 08:00 45 10/03/17 08:00 99 10/03/17 08:00 99.5 106 30 126/62 95 Mechanical Ventilator 45 99.5 10/03/17 07:07 110 31 45 10/03/17 07:00 100 25 125/64 96 Mechanical Ventilator 45 10/03/17 06:00 103 25 118/60 96 Mechanical Ventilator 45 10/03/17 05:26 110 26 45 10/03/17 05:00 103 25 120/58 96 Mechanical Ventilator 45 10/03/17 04:00 99.2 111 25 128/64 95 Mechanical Ventilator 45 99.2 10/03/17 04:00 110 10/03/17 04:00 45 10/03/17 03:00 111 25 130/64 95 Mechanical Ventilator 45 10/03/17 02:54 116 27 45 10/03/17 02:00 111 26 135/63 96 Mechanical Ventilator 45 10/03/17 01:00 105 29 137/63 95 Mechanical Ventilator 45 10/03/17 00:51 105 27 45 10/03/17 00:00 99.1 105 26 136/73 95 Mechanical Ventilator 45 99.1 10/03/17 00:00 45 10/03/17 00:00 100 10/02/17 23:09 103 26 45 10/02/17 23:00 105 26 128/66 95 Mechanical Ventilator 45 10/02/17 22:00 104 26 137/66 95 Mechanical Ventilator 45 10/02/17 21:22 99 24 45 10/02/17 21:00 100 26 130/60 96 Mechanical Ventilator 45 10/02/17 20:48 101 118/58 10/02/17 20:00 45 10/02/17 20:00 101 10/02/17 20:00 98.4 101 34 123/58 96 Mechanical Ventilator 45 98.4 10/02/17 20:00 45 10/02/17 19:13 100 25 45 10/02/17 19:00 101 18 109/75 100 Mechanical Ventilator 60 10/02/17 18:00 97 22 136/62 100 Mechanical Ventilator 60 3/22/18 17:00 98.2 100 22 124/62 97 Mechanical Ventilator 60 98.2 10/02/17 16:48 101 21 50 Intake and Output 10/02/17 10/03/17 19:00 07:00 Intake Total 1760 ml 1910 ml Output Total 1165 ml 590 ml Balance 595 ml 1320 ml Intake Free Water 110 ml IV Total 1110 ml 1200 ml Tube Feeding 500 ml 600 ml Other 150 ml Output Urine Total 1165 ml 590 ml # Bowel Movements 3 4 Laboratory Tests Test 10/03/17 03:20 10/03/17 10:03 White Blood Count 9.0 K/UL (4.8-10.8) Red Blood Count 3.14 M/UL (4.20-5.40) L Hemoglobin 10.0 G/DL (12.0-16.0) L Hematocrit 31.2 % (37.0-47.0) L Mean Corpuscular Volume 99 FL (80-99) Mean Corpuscular Hemoglobin 31.7 PG (27.0-31.0) H Mean Corpuscular Hemoglobin Concent 31.9 G/DL (32.0-36.0) L Red Cell Distribution Width 19.0 % (11.6-14.8) H Platelet Count 88 K/UL (150-450) L Mean Platelet Volume 9.6 FL (6.5-10.1) Neutrophils (%) (Auto) % (45.0-75.0) Lymphocytes (%) (Auto) % (20.0-45.0) Monocytes (%) (Auto) % (1.0-10.0) Eosinophils (%) (Auto) % (0.0-3.0) Basophils (%) (Auto) % (0.0-2.0) Sodium Level 146 MMOL/L (136-145) H Potassium Level 3.6 MMOL/L (3.5-5.1) Chloride Level 114 MMOL/L (98-107) H Carbon Dioxide Level 26 MMOL/L (21-32) Anion Gap 6 mmol/L (5-15) Blood Urea Nitrogen 25 mg/dL (7-18) H Creatinine 0.8 MG/DL (0.55-1.30) Estimat Glomerular Filtration Rate mL/min (>60) Glucose Level 169 MG/DL (74-106) H Calcium Level 7.4 MG/DL (8.5-10.1) L Phosphorus Level 3.1 MG/DL (2.5-4.9) Magnesium Level 1.7 MG/DL (1.8-2.4) L Total Bilirubin 6.0 MG/DL (0.2-1.0) H Direct Bilirubin 5.1 MG/DL (0.0-0.3) H Aspartate Amino Transf (AST/SGOT) 47 U/L (15-37) H Alanine Aminotransferase (ALT/SGPT) 18 U/L (12-78) Alkaline Phosphatase 564 U/L (46-116) H Total Protein 5.5 G/DL (6.4-8.2) L Albumin 1.5 G/DL (3.4-5.0) L Globulin 4.0 g/dL Albumin/Globulin Ratio 0.4 (1.0-2.7) L Arterial Blood pH 7.420 (7.350-7.450) Arterial Blood Partial Pressure CO2 32.4 mmHg (35.0-45.0) L Arterial Blood Partial Pressure O2 70.6 mmHg (75.0-100.0) L Arterial Blood HCO3 21.0 mmol/L (22.0-26.0) L Arterial Blood Oxygen Saturation 94.3 % (92.0-98.0) Arterial Blood Base Excess -2.6 Luis A Test Positive Objective HEAD AND NECK: Orally intubated. NG tube in LUNGS: Coarse rhonchi bilaterally CARDIOVASCULAR: Tachy S1 and S2.No murmur ABDOMEN: Soft. EXTREMITIES: 1+ pitting edema. Charlie Darnell MD Oct 03, 2017 16:26
--- NOTE | 2017-10-03 17:20 | Internal Med Progress Note ---
Subjective Date of Service: Oct 03, 2017 Physician Name Sina Bowens Attending Physician Jesus Barahona MD Current Medications Medications (Trade) Dose Ordered Sig/Hermes Route PRN Reason Start Time Stop Time Status Last Admin Dose Admin Acetaminophen (Tylenol) 650 mg EVERY 6 HOURS PRN NG Fever/Headache/Mild Pain 09/13/17 20:45 10/13/17 20:44 10/03/17 12:25 Clonidine HCl (Catapres Tab) 0.1 mg Q4H PRN ORAL SBP>160 UNRELIEVED BY HYDRALAZ 09/16/17 16:45 10/15/17 16:59 Dextrose (Dextrose 50%) STAT PRN IV Hypoglycemia 09/13/17 15:00 10/13/17 14:59 Diltiazem HCl (Cardizem) 5 mg Q12HR IVP 10/02/17 09:00 11/01/17 08:59 10/03/17 08:59 Insulin Aspart (NovoLOG) EVERY 6 HOURS SUBQ 09/17/17 12:00 10/17/17 11:59 10/03/17 11:42 Ketotifen Fumarate (Zatidor) 1 drop DAILY BOTH EYES 09/26/17 09:00 10/25/17 08:59 10/03/17 08:59 Micafungin Sodium 100 mg/Sodium Chloride 110 ml @ 110 mls/hr Q24H IVPB 09/30/17 13:00 10/07/17 12:59 10/03/17 13:08 Pantoprazole (Protonix) 40 mg DAILY IVP 10/02/17 09:00 11/01/17 08:59 10/03/17 08:59 Polyethylene Glycol (Miralax) 17 gm BEDTIME ORAL 09/14/17 21:00 10/14/17 20:59 09/30/17 20:36 Allergies: Coded Allergies: No Known Allergies (Verified , 11/18/08) ROS Limited/Unobtainable: Yes Subjective 76 YO F admitted with Shortness of breath, now respiratory failure. Intubated and sedated. Cover for Internal Med-Dr. Barahona. ICU . S/P ERCP 10/01/17 Objective Last Vital Signs Date Time Temp Pulse Resp B/P (MAP) Pulse Ox O2 Delivery O2 Flow Rate FiO2 10/03/17 17:00 98 25 118/54 96 Mechanical Ventilator 45 10/03/17 16:00 99.8 99.8 Laboratory Tests Test 10/03/17 03:20 10/03/17 10:03 White Blood Count 9.0 K/UL (4.8-10.8) Red Blood Count 3.14 M/UL (4.20-5.40) L Hemoglobin 10.0 G/DL (12.0-16.0) L Hematocrit 31.2 % (37.0-47.0) L Mean Corpuscular Volume 99 FL (80-99) Mean Corpuscular Hemoglobin 31.7 PG (27.0-31.0) H Mean Corpuscular Hemoglobin Concent 31.9 G/DL (32.0-36.0) L Red Cell Distribution Width 19.0 % (11.6-14.8) H Platelet Count 88 K/UL (150-450) L Mean Platelet Volume 9.6 FL (6.5-10.1) Neutrophils (%) (Auto) % (45.0-75.0) Lymphocytes (%) (Auto) % (20.0-45.0) Monocytes (%) (Auto) % (1.0-10.0) Eosinophils (%) (Auto) % (0.0-3.0) Basophils (%) (Auto) % (0.0-2.0) Sodium Level 146 MMOL/L (136-145) H Potassium Level 3.6 MMOL/L (3.5-5.1) Chloride Level 114 MMOL/L (98-107) H Carbon Dioxide Level 26 MMOL/L (21-32) Anion Gap 6 mmol/L (5-15) Blood Urea Nitrogen 25 mg/dL (7-18) H Creatinine 0.8 MG/DL (0.55-1.30) Estimat Glomerular Filtration Rate mL/min (>60) Glucose Level 169 MG/DL (74-106) H Calcium Level 7.4 MG/DL (8.5-10.1) L Phosphorus Level 3.1 MG/DL (2.5-4.9) Magnesium Level 1.7 MG/DL (1.8-2.4) L Total Bilirubin 6.0 MG/DL (0.2-1.0) H Direct Bilirubin 5.1 MG/DL (0.0-0.3) H Aspartate Amino Transf (AST/SGOT) 47 U/L (15-37) H Alanine Aminotransferase (ALT/SGPT) 18 U/L (12-78) Alkaline Phosphatase 564 U/L (46-116) H Total Protein 5.5 G/DL (6.4-8.2) L Albumin 1.5 G/DL (3.4-5.0) L Globulin 4.0 g/dL Albumin/Globulin Ratio 0.4 (1.0-2.7) L Arterial Blood pH 7.420 (7.350-7.450) Arterial Blood Partial Pressure CO2 32.4 mmHg (35.0-45.0) L Arterial Blood Partial Pressure O2 70.6 mmHg (75.0-100.0) L Arterial Blood HCO3 21.0 mmol/L (22.0-26.0) L Arterial Blood Oxygen Saturation 94.3 % (92.0-98.0) Arterial Blood Base Excess -2.6 Luis A Test Positive Intake and Output 10/02/17 10/03/17 19:00 07:00 Intake Total 1760 ml 1910 ml Output Total 1165 ml 590 ml Balance 595 ml 1320 ml Intake Free Water 110 ml IV Total 1110 ml 1200 ml Tube Feeding 500 ml 600 ml Other 150 ml Output Urine Total 1165 ml 590 ml # Bowel Movements 3 4 Objective General Appearance: lethargic, thin EENT: normal ENT inspection Neck: non-tender, normal alignment, supple Cardiovascular: normal peripheral pulses, normal rate, regular rhythm, no gallop/murmur, no JVD Respiratory/Chest: Mechanical vent; respiratory distress, crackles/rales, rhonchi - bilaterally, expiratory wheezing Abdomen: normal bowel sounds, non tender, soft, no organomegaly, no mass Skin: normal pigmentation, warm/dry Assessment/Plan Problem List: (1) HTN (hypertension) Assessment & Plan: Currently hypotensive. (2) Arthritis, rheumatoid (3) Parkinsons disease (4) Aplastic anemia (5) GERD (gastroesophageal reflux disease) (6) Respiratory failure Assessment & Plan: Tracheostomy scheduled next week-see surgery note. Cont vent per pulmonary (7) Pneumonia (8) Dyspnea (9) Sepsis Assessment & Plan: Blood culture neg. Continue Amikacin, micafungin and flagyl per ID (10) ARDS (adult respiratory distress syndrome) Assessment & Plan: See pulmonary note (11) UTI (urinary tract infection) Assessment & Plan: E.Coli. Continue abx per ID (12) Anemia Assessment & Plan: S/P Transfusion 2 units PRBC (13) Diabetes mellitus, type II Assessment & Plan: Continue novolog sliding scale (14) Leukocytosis Assessment & Plan: Worsening. See ID note. Start amikacin and fluconazole (15) Thrombocytopenia Status: not improved SINA BOWENS Oct 03, 2017 17:20
[2017-10-03 17:43] LABS: BILIRUBIN, URINE 2+ (NEGATIVE); COLOR,URINE BROWN; GLUCOSE, URINE (UA) NEGATIVE (NEGATIVE); KETONES,URINE NEGATIVE (NEGATIVE); LEUKOCYTE ESTERASE ,URINE 2+ (NEGATIVE); NITRITE,URINE POSITIVE (NEGATIVE); PH,URINE 5 (4.5-8.0); PROTEIN,URINE 2+ (NEGATIVE); UROBILINOGEN,URINE 1 MG/DL (0.0-1.0)
[2017-10-03 17:48] LABS: APPEARANCE,URINE SLIGHTLY CLOUDY
[2017-10-03] MEDS: Miralax 17gm pkt ORAL SCH (21:49)
--- NOTE | 2017-10-03 23:27 | General Progress Note ---
Assessment/Plan Assessment/Plan Assessment - Resp failure / ARDS / PNA - Abnormal LFT, Biliary obstruction, possible cholangitis, CBD sludge - bili high again today - Family declines repeat ERCP - Anemia with OB (+) stools - thrombocytopenia - Malnutrition - hypernatremia - improving - AMS - improved Recommendations - Continue TF - replace lytes - transfuse PRN - Elevate HOB - Vent care - Monitor labs - abx - ? ERCP Mon (Duplicate progress note for today) Subjective Allergies: Coded Allergies: No Known Allergies (Verified , 11/18/08) Subjective Above noted Doing better arousable did not follow commands tolerating TF Objective Last 24 Hour Vital Signs Date Time Temp Pulse Resp B/P (MAP) Pulse Ox O2 Delivery O2 Flow Rate FiO2 10/03/17 22:32 111 22 45 10/03/17 21:50 114 130/58 10/03/17 21:37 111 26 45 10/03/17 20:00 98.4 104 30 129/56 96 Mechanical Ventilator 45 98.4 10/03/17 20:00 45 10/03/17 19:32 105 22 45 10/03/17 19:00 102 28 122/53 96 Mechanical Ventilator 45 10/03/17 18:00 98 26 121/58 97 Mechanical Ventilator 45 10/03/17 17:29 100 23 45 10/03/17 17:00 98 25 118/54 96 Mechanical Ventilator 45 10/03/17 16:00 45 10/03/17 16:00 99.8 101 31 136/61 100 Mechanical Ventilator 45 99.8 10/03/17 16:00 100 10/03/17 15:13 99 24 45 10/03/17 15:00 101 31 136/61 98 Mechanical Ventilator 45 10/03/17 15:00 111 30 136/61 97 10/03/17 15:00 103 30 121/59 97 Mechanical Ventilator 45 10/03/17 14:00 101 27 125/56 97 Mechanical Ventilator 45 10/03/17 13:00 103 30 121/59 97 Mechanical Ventilator 45 10/03/17 12:55 99.8 10/03/17 12:48 112 25 45 10/03/17 12:25 100.1 10/03/17 12:00 99 10/03/17 12:00 100.1 92 30 126/60 97 Mechanical Ventilator 45 100.1 3/23/18 12:00 45 10/03/17 11:00 107 29 128/66 97 Mechanical Ventilator 45 10/03/17 10:48 101 23 45 10/03/17 10:00 106 27 144/61 97 Mechanical Ventilator 45 10/03/17 09:00 102 29 117/57 97 Mechanical Ventilator 45 10/03/17 08:59 109 130/61 10/03/17 08:49 109 24 45 10/03/17 08:00 45 10/03/17 08:00 99 10/03/17 08:00 99.5 106 30 126/62 95 Mechanical Ventilator 45 99.5 10/03/17 07:07 110 31 45 10/03/17 07:00 100 25 125/64 96 Mechanical Ventilator 45 10/03/17 06:00 103 25 118/60 96 Mechanical Ventilator 45 10/03/17 05:26 110 26 45 10/03/17 05:00 103 25 120/58 96 Mechanical Ventilator 45 10/03/17 04:00 99.2 111 25 128/64 95 Mechanical Ventilator 45 99.2 10/03/17 04:00 110 10/03/17 04:00 45 10/03/17 03:00 111 25 130/64 95 Mechanical Ventilator 45 10/03/17 02:54 116 27 45 10/03/17 02:00 111 26 135/63 96 Mechanical Ventilator 45 10/03/17 01:00 105 29 137/63 95 Mechanical Ventilator 45 10/03/17 00:51 105 27 45 10/03/17 00:00 99.1 105 26 136/73 95 Mechanical Ventilator 45 99.1 10/03/17 00:00 45 10/03/17 00:00 100 Intake and Output 10/02/17 10/03/17 19:00 07:00 Intake Total 1760 ml 1910 ml Output Total 1165 ml 590 ml Balance 595 ml 1320 ml Intake Free Water 110 ml IV Total 1110 ml 1200 ml Tube Feeding 500 ml 600 ml Other 150 ml Output Urine Total 1165 ml 590 ml # Bowel Movements 3 4 Laboratory Tests 10/03/17 03:20: White Blood Count 9.0, Red Blood Count 3.14L, Hemoglobin 10.0L, Hematocrit 31.2L , Mean Corpuscular Volume 99, Mean Corpuscular Hemoglobin 31.7H, Mean Corpuscular Hemoglobin Concent 31.9L, Red Cell Distribution Width 19.0H, Platelet Count 88L, Mean Platelet Volume 9.6, Neutrophils (%) (Auto) , Lymphocytes (%) (Auto) , Monocytes (%) (Auto) , Eosinophils (%) (Auto) , Basophils (%) (Auto) , Sodium Level 146H, Potassium Level 3.6, Chloride Level 114H, Carbon Dioxide Level 26, Anion Gap 6, Blood Urea Nitrogen 25H, Creatinine 0.8, Estimat Glomerular Filtration Rate , Glucose Level 169H, Calcium Level 7.4L , Phosphorus Level 3.1, Magnesium Level 1.7L, Total Bilirubin 6.0H, Direct Bilirubin 5.1H, Aspartate Amino Transf (AST/SGOT) 47H, Alanine Aminotransferase (ALT/SGPT) 18, Alkaline Phosphatase 564H, Total Protein 5.5L, Albumin 1.5L, Globulin 4.0, Albumin/Globulin Ratio 0.4L 10/03/17 10:03: Arterial Blood pH 7.420, Arterial Blood Partial Pressure CO2 32.4L, Arterial Blood Partial Pressure O2 70.6L, Arterial Blood HCO3 21.0L, Arterial Blood Oxygen Saturation 94.3, Arterial Blood Base Excess -2.6, Luis A Test Positive 10/03/17 16:00: Urine Color Brown, Urine Appearance Slightly cloudy, Urine pH 5, Urine Specific [place] 1.020, Urine Protein 2+H, Urine Glucose (UA) Negative, Urine Ketones Negative, Urine Occult Blood 5+H, Urine Nitrite PositiveH, Urine Bilirubin 2+H, Urine Ictotest Positive, Urine Urobilinogen 1H, Urine Leukocyte Esterase 2+H, Urine RBC 5-10H, Urine WBC 2-4, Urine Squamous Epithelial Cells Few, Urine Bacteria ModerateH Height (Feet): 5 Height (Inches): 0.00 Weight (Pounds): 109 Objective WDWN NCAT , (+) ETT supple CTA RRR abd soft (+) edema non verbal ARNULFO DURON Oct 03, 2017 23:27
--- NOTE | 2017-10-03 23:30 | General Progress Note ---
Assessment/Plan Assessment/Plan #. Anemia due to underlying chronic disease. Continue to closely monitor. --> Hemoglobin goal is above 7. --> Transfuse as necessary --> Anemia workup has been reviewed at this point. --> Hemoglobin levels stable and anemia mild at this time #. Leukocytosis likely related to underlying pneumonia infection. --> On antibiotic treatment. --> Wbc count downtrended and WNL at this time. --> Cont to monitor and trend daily. #. Thrombocytopenia, severe and progressive, acute onset, likely secondary to underlying infection, aspiration pneumonia versus HIT. --> Antibody test is pending. Heparin has been discontinued on 09/18/2017. --> Duplex of the lower extremities is negative, therefore less likely HIT and other causes are more likely such as underlying infection. --> Platelets goal >20k, transfuse if necessary. --> Has Remained low past few days. On antibiotic treatment. --> Improved slightly today. #. Community-acquired pneumonia versus hospital-acquired. --> The patient on broad-spectrum antibiotics. --> Improved. --> Urine culture growing E. coli. Continue to closely monitor. #. Transaminitis. She has been seen by GI Service. Continue to closely monitor. #. Low-grade fever. Closely observe. #. Encephalopathy. Subjective Date patient seen: Oct 02, 2017 Constitutional: Denies: no symptoms, chills, diaphoresis, fever, malaise, weakness, other HEENT: Denies: no symptoms, eye pain, blurred vision, tearing, double vision, ear pain, ear discharge, nose pain, nose congestion, throat pain, throat swelling, mouth pain, mouth swelling, other Cardiovascular: Denies: no symptoms, chest pain, edema, irregular heart rate, lightheadedness, palpitations, syncope, other Respiratory: Denies: no symptoms, cough, orthopnea, shortness of breath, SOB with excertion, SOB at rest, sputum, stridor, wheezing, other Gastrointestinal/Abdominal: Denies: no symptoms, abdomen distended, abdominal pain, black stools, tarry stools, blood in stool, constipated, diarrhea, difficulty swallowing, nausea, poor appetite, poor fluid intake, rectal bleeding , vomiting, other Genitourinary: Denies: no symptoms, burning, discharge, frequency, flank pain, hematuria, incontinence, pain, urgency, other 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: Denies: no symptoms, anxiety, depressed, emotional problems, headache, numbness, paresthesia, pre-existing deficit, seizure, tingling, tremors, weakness, other Endocrine: Denies: no symptoms, excessive sweating, flushing, intolerance to cold, intolerance to heat, increased hunger, increased thirst, increased urine, unexplained weight gain, unexplained weight loss, other Hematologic/Lymphatic: Reports: anemia Allergies: Coded Allergies: No Known Allergies (Verified , 11/18/08) Subjective No events overnight. H/H stable Objective Last 24 Hour Vital Signs Date Time Temp Pulse Resp B/P (MAP) Pulse Ox O2 Delivery O2 Flow Rate FiO2 10/03/17 22:32 111 22 45 10/03/17 21:50 114 130/58 10/03/17 21:37 111 26 45 10/03/17 20:00 98.4 104 30 129/56 96 Mechanical Ventilator 45 98.4 10/03/17 20:00 45 10/03/17 19:32 105 22 45 10/03/17 19:00 102 28 122/53 96 Mechanical Ventilator 45 10/03/17 18:00 98 26 121/58 97 Mechanical Ventilator 45 10/03/17 17:29 100 23 45 10/03/17 17:00 98 25 118/54 96 Mechanical Ventilator 45 10/03/17 16:00 45 10/03/17 16:00 99.8 101 31 136/61 100 Mechanical Ventilator 45 99.8 10/03/17 16:00 100 10/03/17 15:13 99 24 45 10/03/17 15:00 101 31 136/61 98 Mechanical Ventilator 45 10/03/17 15:00 111 30 136/61 97 10/03/17 15:00 103 30 121/59 97 Mechanical Ventilator 45 10/03/17 14:00 101 27 125/56 97 Mechanical Ventilator 45 10/03/17 13:00 103 30 121/59 97 Mechanical Ventilator 45 10/03/17 12:55 99.8 10/03/17 12:48 112 25 45 10/03/17 12:25 100.1 10/03/17 12:00 99 10/03/17 12:00 100.1 92 30 126/60 97 Mechanical Ventilator 45 100.1 10/03/17 12:00 45 10/03/17 11:00 107 29 128/66 97 Mechanical Ventilator 45 10/03/17 10:48 101 23 45 10/03/17 10:00 106 27 144/61 97 Mechanical Ventilator 45 10/03/17 09:00 102 29 117/57 97 Mechanical Ventilator 45 10/03/17 08:59 109 130/61 10/03/17 08:49 109 24 45 10/03/17 08:00 45 10/03/17 08:00 99 10/03/17 08:00 99.5 106 30 126/62 95 Mechanical Ventilator 45 99.5 10/03/17 07:07 110 31 45 10/03/17 07:00 100 25 125/64 96 Mechanical Ventilator 45 10/03/17 06:00 103 25 118/60 96 Mechanical Ventilator 45 10/03/17 05:26 110 26 45 10/03/17 05:00 103 25 120/58 96 Mechanical Ventilator 45 10/03/17 04:00 99.2 111 25 128/64 95 Mechanical Ventilator 45 99.2 10/03/17 04:00 110 10/03/17 04:00 45 10/03/17 03:00 111 25 130/64 95 Mechanical Ventilator 45 10/03/17 02:54 116 27 45 10/03/17 02:00 111 26 135/63 96 Mechanical Ventilator 45 10/03/17 01:00 105 29 137/63 95 Mechanical Ventilator 45 10/03/17 00:51 105 27 45 10/03/17 00:00 99.1 105 26 136/73 95 Mechanical Ventilator 45 99.1 10/03/17 00:00 45 10/03/17 00:00 100 Intake and Output 10/02/17 10/03/17 19:00 07:00 Intake Total 1760 ml 1910 ml Output Total 1165 ml 590 ml Balance 595 ml 1320 ml Intake Free Water 110 ml IV Total 1110 ml 1200 ml Tube Feeding 500 ml 600 ml Other 150 ml Output Urine Total 1165 ml 590 ml # Bowel Movements 3 4 Laboratory Tests 10/03/17 03:20: White Blood Count 9.0, Red Blood Count 3.14L, Hemoglobin 10.0L, Hematocrit 31.2L , Mean Corpuscular Volume 99, Mean Corpuscular Hemoglobin 31.7H, Mean Corpuscular Hemoglobin Concent 31.9L, Red Cell Distribution Width 19.0H, Platelet Count 88L, Mean Platelet Volume 9.6, Neutrophils (%) (Auto) , Lymphocytes (%) (Auto) , Monocytes (%) (Auto) , Eosinophils (%) (Auto) , Basophils (%) (Auto) , Sodium Level 146H, Potassium Level 3.6, Chloride Level 114H, Carbon Dioxide Level 26, Anion Gap 6, Blood Urea Nitrogen 25H, Creatinine 0.8, Estimat Glomerular Filtration Rate , Glucose Level 169H, Calcium Level 7.4L , Phosphorus Level 3.1, Magnesium Level 1.7L, Total Bilirubin 6.0H, Direct Bilirubin 5.1H, Aspartate Amino Transf (AST/SGOT) 47H, Alanine Aminotransferase (ALT/SGPT) 18, Alkaline Phosphatase 564H, Total Protein 5.5L, Albumin 1.5L, Globulin 4.0, Albumin/Globulin Ratio 0.4L 10/03/17 10:03: Arterial Blood pH 7.420, Arterial Blood Partial Pressure CO2 32.4L, Arterial Blood Partial Pressure O2 70.6L, Arterial Blood HCO3 21.0L, Arterial Blood Oxygen Saturation 94.3, Arterial Blood Base Excess -2.6, Luis A Test Positive 10/03/17 16:00: Urine Color Brown, Urine Appearance Slightly cloudy, Urine pH 5, Urine Specific [place] 1.020, Urine Protein 2+H, Urine Glucose (UA) Negative, Urine Ketones Negative, Urine Occult Blood 5+H, Urine Nitrite PositiveH, Urine Bilirubin 2+H, Urine Ictotest Positive, Urine Urobilinogen 1H, Urine Leukocyte Esterase 2+H, Urine RBC 5-10H, Urine WBC 2-4, Urine Squamous Epithelial Cells Few, Urine Bacteria ModerateH Height (Feet): 5 Height (Inches): 0.00 Weight (Pounds): 109 General Appearance: confused Respiratory/Chest: decreased breath sounds Abdomen: soft Johnny Sinha MD Oct 03, 2017 23:30
[2017-10-04] VITALS (24 sets, daily range): BP systolic 121–149; BP diastolic 50–92
[2017-10-04 04:31] LABS: HEMATOCRIT 32.3 % (37.0-47.0); HEMOGLOBIN 10.2 G/DL (12.0-16.0); MEAN CORPUSCULAR VOLUME 100 FL (80-99); PLATELET COUNT 99 K/UL (150-450); RED BLOOD COUNT 3.23 M/UL (4.20-5.40); RED CELL DISTRIBUTION WIDTH 19.4 % (11.6-14.8)
[2017-10-04 05:23] LABS: ALANINE AMINOTRANSFERASE 26 U/L (12-78); ALBUMIN 1.5 G/DL (3.4-5.0); ALBUMIN/GLOBULIN RATIO 0.4 (1.0-2.7); ALKALINE PHOSPHATASE 957 U/L (46-116); ANION GAP 7 mmol/L (5-15); ASPARTATE AMINO TRANSFERASE 62 U/L (15-37); BILIRUBIN,TOTAL 9.2 MG/DL (0.2-1.0); BLOOD UREA NITROGEN 26 mg/dL (7-18); CALCIUM 8.1 MG/DL (8.5-10.1); CARBON DIOXIDE 26 MMOL/L (21-32); CHLORIDE 113 MMOL/L (98-107); CREATININE 0.7 MG/DL (0.55-1.30); PHOSPHORUS 3.9 MG/DL (2.5-4.9); POTASSIUM 3.9 MMOL/L (3.5-5.1); SODIUM 146 MMOL/L (136-145)
[2017-10-04 05:28] LABS: BILIRUBIN,DIRECT 7.4 MG/DL (0.0-0.3)
[2017-10-04] MEDS: NovoLOG Insulin Flexpen SUBQ SCH ×4 (05:46→18:06)
--- NOTE | 2017-10-04 07:24 | Pulmonolgy Critical Care Note ---
Critical Care - Asmt/Plan Assessment/Plan: ASSESSMENT Acute hypoxemic RF requiring intubation ARDS failure to wean severe sepsis Aspiration PNA , s/p Rx UTI with E coli, s/p Rx LBBB Diastolic dysfunction anemia of chronic disease s/p blood transfusion thrombocytopenia encephalopathy e/lyte imbalance transaminitis biliary obstruction possible cholangitis CBD sludge periampullary diverticulum HTN moderate AI moderate pulmonary HTN RA severe protein calorie malnutrition PLAN OF CARE ICU vent support, pulm toilet daily CXR and ABG , titrate settings as needed Failure to wean need trach, planned for Friday if family consent ( no consent eyt) cardio follows ECHO with EF 55 and RVSP of 49, moderate AI No evidence of advanced heart block BP management with Cardizem s/p abx Rx for PNA and UTI, ID follows, on Mycamine urine cx+ E coli ,influenza negative s/p empiric Tamiflu OP tube feeding with nutritional recs strict aspiration precautions GI prophylaxis monitor lytes and correct as needed, avoid nephrotoxics anemia w/up c/w anemia of chronic disease s/p blood transfusion PLT low but improved with trend up, hep Ab 0.07 negative for HIT, heme follows r/o HIT stool OB + GI follows , CT A/P no acute findings HIDA negative but delayed emptying to duodenum s/p ERCP 09/30 with findings of periampullary diverticulum LFT initially were trending down , today up AST and Alk phosphatase Family declined to repeat ERCP BS management with SS insulin bowel regimen case discussed and evaluated by supervising physician Critical Care - Objective Last 24 Hour Vital Signs Date Time Temp Pulse Resp B/P (MAP) Pulse Ox O2 Delivery O2 Flow Rate FiO2 10/04/17 07:00 108 35 123/53 97 Mechanical Ventilator 45 10/04/17 06:40 108 22 45 10/04/17 06:00 114 33 139/61 91 Mechanical Ventilator 45 10/04/17 05:09 118 29 45 10/04/17 05:00 117 143/67 95 Mechanical Ventilator 45 10/04/17 04:00 118 10/04/17 04:00 45 10/04/17 04:00 99.9 118 27 140/64 95 Mechanical Ventilator 45 99.9 10/04/17 03:31 105 22 45 10/04/17 03:00 119 27 145/63 95 Mechanical Ventilator 45 10/04/17 02:00 120 28 149/67 95 Mechanical Ventilator 45 10/04/17 01:23 116 24 45 18 01:00 118 18 137/65 96 Mechanical Ventilator 45 10/04/17 00:00 113 29 141/59 95 Mechanical Ventilator 45 10/04/17 00:00 45 10/04/17 00:00 99.7 113 29 141/59 95 Mechanical Ventilator 45 99.7 10/04/17 00:00 112 10/03/17 23:00 112 31 142/58 95 Mechanical Ventilator 45 10/03/17 22:32 111 22 45 10/03/17 22:00 114 28 135/61 95 Mechanical Ventilator 45 10/03/17 21:50 114 130/58 18 21:37 111 26 45 10/03/17 21:00 110 32 130/58 96 Mechanical Ventilator 45 10/03/17 20:00 98.4 104 30 129/56 96 Mechanical Ventilator 45 98.4 10/03/17 20:00 105 10/03/17 20:00 45 10/03/17 19:32 105 22 45 10/03/17 19:00 102 28 122/53 96 Mechanical Ventilator 45 10/03/17 18:00 98 26 121/58 97 Mechanical Ventilator 45 10/03/17 17:29 100 23 45 10/03/17 17:00 98 25 118/54 96 Mechanical Ventilator 45 10/03/17 16:00 45 10/03/17 16:00 99.8 101 31 136/61 100 Mechanical Ventilator 45 99.8 10/03/17 16:00 100 10/03/17 15:13 99 24 45 10/03/17 15:00 101 31 136/61 98 Mechanical Ventilator 45 10/03/17 15:00 111 30 136/61 97 18 15:00 103 30 121/59 97 Mechanical Ventilator 45 18 14:00 101 27 125/56 97 Mechanical Ventilator 45 10/03/17 13:00 103 30 121/59 97 Mechanical Ventilator 45 10/03/17 12:55 99.8 18 12:48 112 25 45 18 12:25 100.1 18 12:00 99 18 12:00 100.1 92 30 126/60 97 Mechanical Ventilator 45 100.1 10/03/17 12:00 45 10/03/17 11:00 107 29 128/66 97 Mechanical Ventilator 45 10/03/17 10:48 101 23 45 10/03/17 10:00 106 27 144/61 97 Mechanical Ventilator 45 10/03/17 09:00 102 29 117/57 97 Mechanical Ventilator 45 10/03/17 08:59 109 130/61 10/03/17 08:49 109 24 45 10/03/17 08:00 45 10/03/17 08:00 99 10/03/17 08:00 99.5 106 30 126/62 95 Mechanical Ventilator 45 99.5 Objective: Condition: critical HEENT: atraumatic, normocephalic, OP with ET in place, intact, NGT Lungs: few scattered crackles at bases Heart: HR/BP stable Abdomen: soft Extremities: no C/C/E Micro: Microbiology Date/Time Source Procedure Growth Status 10/03/17 16:00 Urine,Clean Catch Urine Culture - Preliminary NO GROWTH Resulted Accucheck: 146 Critical Care - Subjective ROS Limited/Unobtainable: Yes Interval Events: No leukocytosis, low grade fever no signs of respiratory distress remains intubated with failure to wean AST and Alk phos up again IV Access: peripheral EKG Rhythm: Sinus Tachycardia FI02: 45 Vent Support Breath Rate: 18 Vent Support Mode: AC Vent Tidal Volume: 500 Sputum Amount: Small PEEP: 5.0 PIP: 49 Tube Feeding Amount: 50 I&O: Intake and Output 10/03/17 10/04/17 19:00 07:00 Intake Total 800 ml 600 ml Output Total 380 ml 430 ml Balance 420 ml 170 ml IV Total 200 ml Tube Feeding 600 ml 600 ml Output Urine Total 380 ml 430 ml # Bowel Movements 1 CXR: 10/03 -Possible slight improvement of diffuse extensive parenchymal infiltrates versus edema, over 3 days ET-Tube: 7.5 ET Position: 20 [place] [facility] Chinchilla NP Oct 04, 2017 07:24
[2017-10-04] MEDS: Ketotifen Fumarate 0.035% 5ml BOTH EYES SCH (08:39)
[2017-10-04] MEDS: Pantoprazole Inj IVP SCH (08:40)
[2017-10-04] MEDS: dilTIAZem HCl 25mg/5ml Inj IVP SCH (08:40)
--- NOTE | 2017-10-04 09:52 | Cardiac Electrophysiology PN ---
Assessment/Plan Assessment/Plan 1. Respiratory failure, due to underlying ARDS , pneumonia. Intubated on the vent. Already ruled out for myocardial infarction. Now on 45% Fio2 with PEEP of 5. Tracheostomy on Friday if family consents 2. Left bundle-branch block. No evidence of advanced heart block. 3. HTN and diastolic dysfunction. Change Cardizem to 30 NG q8 hr. Echo EF 55% 4. Hypernatremia and Azotemia. F/U per Dr Mayer 5. Pneumonia and sepsis on IV antibiotics by Dr. Hunter. 6. Psychiatric disorder. 7. Anasarca. 3rd spacing. 8. Anemia with Hb 6.6 s/p PRBC. CT chest abdomen and pelvis without contrast no acute finding S/P EGD by Dr Walton 9. Severe thrombocytopenia. S/P platelet transfusion 10. Abnormal LFT, Biliary obstruction, possible cholangitis. S/P ERCP. CBD sludge Family undecided about repeat ERCP DW RN Subjective Subjective Intubated on Vent in ICU. Off pressors. No SVT or VT. RN at bedside Objective Last 24 Hour Vital Signs Date Time Temp Pulse Resp B/P (MAP) Pulse Ox O2 Delivery O2 Flow Rate FiO2 10/04/17 09:00 108 35 124/53 97 Mechanical Ventilator 45 10/04/17 08:40 106 123/64 10/04/17 08:00 106 10/04/17 08:00 98.9 106 33 124/53 98 Mechanical Ventilator 45 98.9 10/04/17 08:00 45 10/04/17 07:00 108 35 123/53 97 Mechanical Ventilator 45 10/04/17 06:40 108 22 45 10/04/17 06:00 114 33 139/61 91 Mechanical Ventilator 45 10/04/17 05:09 118 29 45 10/04/17 05:00 117 143/67 95 Mechanical Ventilator 45 10/04/17 04:00 118 10/04/17 04:00 45 10/04/17 04:00 99.9 118 27 140/64 95 Mechanical Ventilator 45 99.9 10/04/17 03:31 105 22 45 10/04/17 03:00 119 27 145/63 95 Mechanical Ventilator 45 10/04/17 02:00 120 28 149/67 95 Mechanical Ventilator 45 10/04/17 01:23 116 24 45 10/04/17 01:00 118 18 137/65 96 Mechanical Ventilator 45 10/04/17 00:00 113 29 141/59 95 Mechanical Ventilator 45 10/04/17 00:00 45 10/04/17 00:00 99.7 113 29 141/59 95 Mechanical Ventilator 45 99.7 10/04/17 00:00 112 10/03/17 23:00 112 31 142/58 95 Mechanical Ventilator 45 10/03/17 22:32 111 22 45 10/03/17 22:00 114 28 135/61 95 Mechanical Ventilator 45 10/03/17 21:50 114 130/58 10/03/17 21:37 111 26 45 10/03/17 21:00 110 32 130/58 96 Mechanical Ventilator 45 10/03/17 20:00 98.4 104 30 129/56 96 Mechanical Ventilator 45 98.4 10/03/17 20:00 105 10/03/17 20:00 45 10/03/17 19:32 105 22 45 10/03/17 19:00 102 28 122/53 96 Mechanical Ventilator 45 10/03/17 18:00 98 26 121/58 97 Mechanical Ventilator 45 10/03/17 17:29 100 23 45 10/03/17 17:00 98 25 118/54 96 Mechanical Ventilator 45 10/03/17 16:00 45 10/03/17 16:00 99.8 101 31 136/61 100 Mechanical Ventilator 45 99.8 10/03/17 16:00 100 10/03/17 15:13 99 24 45 10/03/17 15:00 101 31 136/61 98 Mechanical Ventilator 45 10/03/17 15:00 111 30 136/61 97 10/03/17 15:00 103 30 121/59 97 Mechanical Ventilator 45 10/03/17 14:00 101 27 125/56 97 Mechanical Ventilator 45 10/03/17 13:00 103 30 121/59 97 Mechanical Ventilator 45 10/03/17 12:55 99.8 10/03/17 12:48 112 25 45 10/03/17 12:25 100.1 10/03/17 12:00 99 10/03/17 12:00 100.1 92 30 126/60 97 Mechanical Ventilator 45 100.1 10/03/17 12:00 45 10/03/17 11:00 107 29 128/66 97 Mechanical Ventilator 45 10/03/17 10:48 101 23 45 10/03/17 10:00 106 27 144/61 97 Mechanical Ventilator 45 Intake and Output 10/03/17 10/04/17 19:00 07:00 Intake Total 800 ml 600 ml Output Total 380 ml 430 ml Balance 420 ml 170 ml IV Total 200 ml Tube Feeding 600 ml 600 ml Output Urine Total 380 ml 430 ml # Bowel Movements 1 Laboratory Tests Test 10/03/17 10:03 10/03/17 16:00 10/04/17 04:20 10/04/17 08:44 Arterial Blood pH 7.420 (7.350-7.450) 7.468 (7.350-7.450) Arterial Blood Partial Pressure CO2 32.4 mmHg (35.0-45.0) L 32.5 mmHg (35.0-45.0) L Arterial Blood Partial Pressure O2 70.6 mmHg (75.0-100.0) L 66.3 mmHg (75.0-100.0) L Arterial Blood HCO3 21.0 mmol/L (22.0-26.0) L 23.0 mmol/L (22.0-26.0) Arterial Blood Oxygen Saturation 94.3 % (92.0-98.0) 92.9 % (92.0-98.0) Arterial Blood Base Excess -2.6 -0.2 Luis A Test Positive Positive Urine Color Brown Urine Appearance Slightly cloudy Urine pH 5 (4.5-8.0) Urine Specific [place] 1.020 (1.005-1.035) Urine Protein 2+ (NEGATIVE) H Urine Glucose (UA) Negative (NEGATIVE) Urine Ketones Negative (NEGATIVE) Urine Occult Blood 5+ (NEGATIVE) H Urine Nitrite Positive (NEGATIVE) H Urine Bilirubin 2+ (NEGATIVE) H Urine Ictotest Positive Urine Urobilinogen 1 MG/DL (0.0-1.0) H Urine Leukocyte Esterase 2+ (NEGATIVE) H Urine RBC 5-10 /HPF (0 - 2) H Urine WBC 2-4 /HPF (0 - 2) Urine Squamous Epithelial Cells Few /LPF (NONE/OCC) Urine Bacteria Moderate /HPF (NONE) H White Blood Count 10.0 K/UL (4.8-10.8) Red Blood Count 3.23 M/UL (4.20-5.40) L Hemoglobin 10.2 G/DL (12.0-16.0) L Hematocrit 32.3 % (37.0-47.0) L Mean Corpuscular Volume 100 FL (80-99) H Mean Corpuscular Hemoglobin 31.7 PG (27.0-31.0) H Mean Corpuscular Hemoglobin Concent 31.7 G/DL (32.0-36.0) L Red Cell Distribution Width 19.4 % (11.6-14.8) H Platelet Count 99 K/UL (150-450) L Mean Platelet Volume 9.8 FL (6.5-10.1) Neutrophils (%) (Auto) % (45.0-75.0) Lymphocytes (%) (Auto) % (20.0-45.0) Monocytes (%) (Auto) % (1.0-10.0) Eosinophils (%) (Auto) % (0.0-3.0) Basophils (%) (Auto) % (0.0-2.0) Sodium Level 146 MMOL/L (136-145) H Potassium Level 3.9 MMOL/L (3.5-5.1) Chloride Level 113 MMOL/L (98-107) H Carbon Dioxide Level 26 MMOL/L (21-32) Anion Gap 7 mmol/L (5-15) Blood Urea Nitrogen 26 mg/dL (7-18) H Creatinine 0.7 MG/DL (0.55-1.30) Estimat Glomerular Filtration Rate mL/min (>60) Glucose Level 144 MG/DL (74-106) H Calcium Level 8.1 MG/DL (8.5-10.1) L Phosphorus Level 3.9 MG/DL (2.5-4.9) Magnesium Level 2.1 MG/DL (1.8-2.4) Total Bilirubin 9.2 MG/DL (0.2-1.0) H Direct Bilirubin 7.4 MG/DL (0.0-0.3) H Aspartate Amino Transf (AST/SGOT) 62 U/L (15-37) H Alanine Aminotransferase (ALT/SGPT) 26 U/L (12-78) Alkaline Phosphatase 957 U/L (46-116) H Total Protein 5.7 G/DL (6.4-8.2) L Albumin 1.5 G/DL (3.4-5.0) L Globulin 4.2 g/dL Albumin/Globulin Ratio 0.4 (1.0-2.7) L Microbiology Date/Time Source Procedure Growth Status 10/03/17 16:00 Urine,Clean Catch Urine Culture - Preliminary NO GROWTH Resulted Objective HEAD AND NECK: Orally intubated. NG tube in LUNGS: Coarse rhonchi bilaterally CARDIOVASCULAR: Tachy S1 and S2.No murmur ABDOMEN: Soft. EXTREMITIES: 1+ pitting edema. Charlie Darnell MD Oct 04, 2017 09:51
[2017-10-04] MEDS ORDERED: Albuterol/Ipratropium 3ml neb HHN PRN (10:00)
--- NOTE | 2017-10-04 10:20 | Diagnostic Imaging Report ---
Indication: Dyspnea Technique: XRAY Chest 1v Comparison: 10/03/2017 Findings: Endotracheal tube and nasogastric tube are unchanged. Cardiomediastinal silhouette is stable. Interstitial and airspace opacities are again present. Osseous structures are stable. Impression: No significant change from 10/03/2017.
--- NOTE | 2017-10-04 10:39 | Infectious Diseases Prog Note ---
Assessment/Plan Assessment/Plan The patient is a 76-year-old female w Fever, low grade, intermittent- r/o new infection- ? persistent cholangitis as increased LFts again -u.a no pyuria, ucx NTD -CXR 10/04 : Interstitial and airspace opacities are again present -Bcx 10/03 p Leukocytosis , resolved- likely cholangitis -Cdiff neg -09/22 sp cx C.a lbicans, Bcx Neg -u/a wbc 10-15, nit neg, leuk +2; ucx >100k C. albicans -Fungal sp cx p Community-acquired vs healthcare-associated pneumonia, s/p RX (the patient has been recently hospitalized in [facility]). -now ARDS- r/o fungal PNA -CXR 09/29: - cxray 09/26 : no changes -CT chest 09/23: Diffuse extensive pulmonary parenchymal disease, with dense consolidation interspersed with groundglass opacities. Appearance nonspecific, possibilities include pulmonary edema, pneumonia, ARDS, hemorrhage. Bilateral pleural effusions, left greater than right. Diffuse edema of the subcutaneous fat, Multiple small thyroid nodules. All apparently under 1 cm, no further follow-up necessary. Degenerative changes of the shoulders 09/19 xray : Unchanged diffuse interstitial and airspace edema, -CrAg serum, U legionell ag neg; Asp ag, Cocci, fungitell p Probable influenza despite of negative influenza screening test, s/p Rx Abnormal liver function tests, ALP>>> AST -2ry to sludged CBD ,cholangitis, obstruction on CBD; AST/ALT normal now, ALP improved but now worsening again -s/p ERCP with stent placement 10/01 -EUS 09/30: 1. Dilated common bile duct with lots of sludge in the distal common bile duct, most probably explanation for abnormal liver function tests. 2. Large ascites -Abd US 09/29: Cholelithiasis, better demonstrated than on prior exam. Thickened gallbladder wall could indicate acute cholecystitis. However, gallbladder wall thickening also evident on prior study of 09/19/2017, after which a hepatobiliary scan was negative, so suspect this is more likely due to hemodynamic derangements given presence of ascites and pleural fluid. Extrahepatic biliary ductal dilatation, equivocally slightly increased from 2017. Downstream obstruction not excludable. Coarsened hepatic echotexture, consistent with hepatocellular disease, nonspecific as regards etiology. Equivocal hepatic surface micronodularity, could indicate early cirrhotic changes. -HIDA scan: Negative for evidence of cystic duct obstruction/acute cholecystitis. Common bile duct is demonstrated be patent, but emptying into the duodenum is delayed, not seen until 2 hours. Significance of this is uncertain. MRCP or CT scanning may be useful to clarify -CT abd/p 09/23: Evidence of anasarca, with diffuse edema subcutaneous and mesenteric fat, bilateral pleural effusions, possible pulmonary edema, trace ascites. Densities within the gallbladder, probably reflecting tiny gallstones, although these are not identifiable on recent ultrasound. Gallbladder wall edema is probably a manifestation of anasarca, as recent hepatobiliary scan was negative for acute cholecystitis. Old ununited fracture deformities of the right pelvis. Bilateral chronic appearing hip dislocations Ultrasound of the abdomen : Gallbladder sludge. No definite stones. 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 -R/o HIT. Abx and protonix could be also be contributors. VDRF / ARDS HTN GERD History of auditory hallucination. Depression. Anemia. Rheumatoid arthritis. History of gastritis. PLAN: -Continue Micafungin #5/-10 for cholangitis and start Ertapenem given low grade fevers and rise in LFts, concern for persistent cholangitis. 10/02 SP Amikacin #10 09/30 SP Flagyl #8 09/25 sp Fluconazole #3 (held due to rise ALP) 09/23 SP Meropenem #5, PO Vanco #2 09/21 SP tamiflu #10 -f/u Repeat cultures -f/u Asp ag, fungitell, Cocci ab, fungal sp cx Monitor CBC.; Trend WBC Monitor BMP.; Trend LFTs Monitor chest x-ray -GI, heme onc f/u Subjective Allergies: Coded Allergies: No Known Allergies (Verified , 11/18/08) Subjective afebrile ~24hrs no leukocytosis ALP worsening possible ERCP on Friday if family agrees Objective Vital Signs Last 24 Hour Vital Signs Date Time Temp Pulse Resp B/P (MAP) Pulse Ox O2 Delivery O2 Flow Rate FiO2 10/04/17 09:00 108 35 124/53 97 Mechanical Ventilator 45 10/04/17 08:45 105 30 45 10/04/17 08:40 106 123/64 10/04/17 08:00 106 10/04/17 08:00 98.9 106 33 124/53 98 Mechanical Ventilator 45 98.9 10/04/17 08:00 45 10/04/17 07:00 108 35 123/53 97 Mechanical Ventilator 45 10/04/17 06:40 108 22 45 10/04/17 06:00 114 33 139/61 91 Mechanical Ventilator 45 10/04/17 05:09 118 29 45 10/04/17 05:00 117 143/67 95 Mechanical Ventilator 45 10/04/17 04:00 118 10/04/17 04:00 45 10/04/17 04:00 99.9 118 27 140/64 95 Mechanical Ventilator 45 99.9 10/04/17 03:31 105 22 45 10/04/17 03:00 119 27 145/63 95 Mechanical Ventilator 45 10/04/17 02:00 120 28 149/67 95 Mechanical Ventilator 45 10/04/17 01:23 116 24 45 10/04/17 01:00 118 18 137/65 96 Mechanical Ventilator 45 10/04/17 00:00 113 29 141/59 95 Mechanical Ventilator 45 10/04/17 00:00 45 10/04/17 00:00 99.7 113 29 141/59 95 Mechanical Ventilator 45 99.7 10/04/17 00:00 112 10/03/17 23:00 112 31 142/58 95 Mechanical Ventilator 45 10/03/17 22:32 111 22 45 10/03/17 22:00 114 28 135/61 95 Mechanical Ventilator 45 10/03/17 21:50 114 130/58 10/03/17 21:37 111 26 45 10/03/17 21:00 110 32 130/58 96 Mechanical Ventilator 45 10/03/17 20:00 98.4 104 30 129/56 96 Mechanical Ventilator 45 98.4 10/03/17 20:00 105 10/03/17 20:00 45 10/03/17 19:32 105 22 45 10/03/17 19:00 102 28 122/53 96 Mechanical Ventilator 45 10/03/17 18:00 98 26 121/58 97 Mechanical Ventilator 45 10/03/17 17:29 100 23 45 10/03/17 17:00 98 25 118/54 96 Mechanical Ventilator 45 10/03/17 16:00 45 10/03/17 16:00 99.8 101 31 136/61 100 Mechanical Ventilator 45 99.8 10/03/17 16:00 100 10/03/17 15:13 99 24 45 10/03/17 15:00 101 31 136/61 98 Mechanical Ventilator 45 10/03/17 15:00 111 30 136/61 97 10/03/17 15:00 103 30 121/59 97 Mechanical Ventilator 45 10/03/17 14:00 101 27 125/56 97 Mechanical Ventilator 45 10/03/17 13:00 103 30 121/59 97 Mechanical Ventilator 45 10/03/17 12:55 99.8 10/03/17 12:48 112 25 45 10/03/17 12:25 100.1 10/03/17 12:00 99 10/03/17 12:00 100.1 92 30 126/60 97 Mechanical Ventilator 45 100.1 10/03/17 12:00 45 10/03/17 11:00 107 29 128/66 97 Mechanical Ventilator 45 10/03/17 10:48 101 23 45 Height (Feet): 5 Height (Inches): 0.00 Weight (Pounds): 125 Objective General Appearance: lethargic, thin EENT: normal ENT inspection Neck: non-tender, normal alignment, supple Cardiovascular: normal peripheral pulses, normal rate, regular rhythm, no gallop/murmur, no JVD Respiratory/Chest: Mechanical vent; respiratory distress, crackles/rales, rhonchi - bilaterally, expiratory wheezing Abdomen: normal bowel sounds, non tender, soft, no organomegaly, no mass Skin: normal pigmentation, warm/dry Microbiology Date/Time Source Procedure Growth Status 10/03/17 16:00 Urine,Clean Catch Urine Culture - Preliminary NO GROWTH Resulted Laboratory Tests Test 10/03/17 16:00 10/04/17 04:20 10/04/17 08:44 Urine Color Brown Urine Appearance Slightly cloudy Urine pH 5 (4.5-8.0) Urine Specific [place] 1.020 (1.005-1.035) Urine Protein 2+ (NEGATIVE) H Urine Glucose (UA) Negative (NEGATIVE) Urine Ketones Negative (NEGATIVE) Urine Occult Blood 5+ (NEGATIVE) H Urine Nitrite Positive (NEGATIVE) H Urine Bilirubin 2+ (NEGATIVE) H Urine Ictotest Positive Urine Urobilinogen 1 MG/DL (0.0-1.0) H Urine Leukocyte Esterase 2+ (NEGATIVE) H Urine RBC 5-10 /HPF (0 - 2) H Urine WBC 2-4 /HPF (0 - 2) Urine Squamous Epithelial Cells Few /LPF (NONE/OCC) Urine Bacteria Moderate /HPF (NONE) H White Blood Count 10.0 K/UL (4.8-10.8) Red Blood Count 3.23 M/UL (4.20-5.40) L Hemoglobin 10.2 G/DL (12.0-16.0) L Hematocrit 32.3 % (37.0-47.0) L Mean Corpuscular Volume 100 FL (80-99) H Mean Corpuscular Hemoglobin 31.7 PG (27.0-31.0) H Mean Corpuscular Hemoglobin Concent 31.7 G/DL (32.0-36.0) L Red Cell Distribution Width 19.4 % (11.6-14.8) H Platelet Count 99 K/UL (150-450) L Mean Platelet Volume 9.8 FL (6.5-10.1) Neutrophils (%) (Auto) % (45.0-75.0) Lymphocytes (%) (Auto) % (20.0-45.0) Monocytes (%) (Auto) % (1.0-10.0) Eosinophils (%) (Auto) % (0.0-3.0) Basophils (%) (Auto) % (0.0-2.0) Sodium Level 146 MMOL/L (136-145) H Potassium Level 3.9 MMOL/L (3.5-5.1) Chloride Level 113 MMOL/L (98-107) H Carbon Dioxide Level 26 MMOL/L (21-32) Anion Gap 7 mmol/L (5-15) Blood Urea Nitrogen 26 mg/dL (7-18) H Creatinine 0.7 MG/DL (0.55-1.30) Estimat Glomerular Filtration Rate mL/min (>60) Glucose Level 144 MG/DL (74-106) H Calcium Level 8.1 MG/DL (8.5-10.1) L Phosphorus Level 3.9 MG/DL (2.5-4.9) Magnesium Level 2.1 MG/DL (1.8-2.4) Total Bilirubin 9.2 MG/DL (0.2-1.0) H Direct Bilirubin 7.4 MG/DL (0.0-0.3) H Aspartate Amino Transf (AST/SGOT) 62 U/L (15-37) H Alanine Aminotransferase (ALT/SGPT) 26 U/L (12-78) Alkaline Phosphatase 957 U/L (46-116) H Total Protein 5.7 G/DL (6.4-8.2) L Albumin 1.5 G/DL (3.4-5.0) L Globulin 4.2 g/dL Albumin/Globulin Ratio 0.4 (1.0-2.7) L Arterial Blood pH 7.468 (7.350-7.450) Arterial Blood Partial Pressure CO2 32.5 mmHg (35.0-45.0) L Arterial Blood Partial Pressure O2 66.3 mmHg (75.0-100.0) L Arterial Blood HCO3 23.0 mmol/L (22.0-26.0) Arterial Blood Oxygen Saturation 92.9 % (92.0-98.0) Arterial Blood Base Excess -0.2 Luis A Test Positive Current Medications Medications (Trade) Dose Ordered Sig/Hermes Route PRN Reason Start Time Stop Time Status Last Admin Dose Admin Acetaminophen (Tylenol) 650 mg EVERY 6 HOURS PRN NG Fever/Headache/Mild Pain 09/13/17 20:45 10/13/17 20:44 10/03/17 12:25 Albuterol/ Ipratropium (Albuterol/ Ipratropium) 3 ml Q4H PRN HHN SHORTNESS OF BREATH 10/04/17 10:00 10/09/17 09:59 Clonidine HCl (Catapres Tab) 0.1 mg Q4H PRN ORAL SBP>160 UNRELIEVED BY HYDRALAZ 09/16/17 16:45 10/15/17 16:59 Dextrose (Dextrose 50%) STAT PRN IV Hypoglycemia 09/13/17 15:00 10/13/17 14:59 Diltiazem HCl (Cardizem) 30 mg EVERY 8 HOURS NG 10/04/17 14:00 11/03/17 13:59 Insulin Aspart (NovoLOG) EVERY 6 HOURS SUBQ 09/17/17 12:00 10/17/17 11:59 10/04/17 05:46 Ketotifen Fumarate (Zatidor) 1 drop DAILY BOTH EYES 09/26/17 09:00 10/25/17 08:59 10/04/17 08:39 Micafungin Sodium 100 mg/Sodium Chloride 110 ml @ 110 mls/hr Q24H IVPB 09/30/17 13:00 10/07/17 12:59 10/03/17 13:08 Pantoprazole (Protonix) 40 mg DAILY IVP 10/02/17 09:00 11/01/17 08:59 10/04/17 08:40 Polyethylene Glycol (Miralax) 17 gm BEDTIME ORAL 09/14/17 21:00 10/14/17 20:59 10/03/17 21:49 Madelyn Frey M.D. Oct 04, 2017 10:39
[2017-10-04] MEDS: Ertapenem 1 GM in NS 110 ML IVPB SCH (12:34)
[2017-10-04] MEDS: Micafungin 100 MG in NS 110 ML IVPB SCH (12:38)
--- NOTE | 2017-10-04 13:16 | Nephrology Progress Note ---
Assessment/Plan Problem List: (1) ARDS (adult respiratory distress syndrome) (2) Electrolyte imbalance (3) Thrombocytopenia Assessment Na wnl Platelets wnl (1) ARDS (adult respiratory distress syndrome) (2) Aspiration pneumonia (3) Protein-calorie malnutrition, severe (4) Diabetes mellitus (5) Anemia , aplastic by history (6) DM (7) UTI (8) Electrolyte imbalance (9) HTN (10) Depression (11) RA . Plan due trach on 10/07 k via NGT as needed water via NGT Adjust BP meds K and Phos supplement as needed Monitor renal parameters and urine output avoid nephrotoxics per orders discussed with RN Left ventricular ejection fraction estimated to be 55 %. Subjective ROS Limited/Unobtainable: Yes Objective Objective Last 24 Hour Vital Signs Date Time Temp Pulse Resp B/P (MAP) Pulse Ox O2 Delivery O2 Flow Rate FiO2 10/04/17 11:00 104 33 124/54 97 Mechanical Ventilator 45 10/04/17 10:35 103 28 45 10/04/17 10:00 106 33 129/60 97 Mechanical Ventilator 45 10/04/17 09:00 108 35 124/53 97 Mechanical Ventilator 45 10/04/17 08:45 105 30 45 10/04/17 08:40 106 123/64 10/04/17 08:00 106 10/04/17 08:00 98.9 106 33 124/53 98 Mechanical Ventilator 45 98.9 10/04/17 08:00 45 10/04/17 07:00 108 35 123/53 97 Mechanical Ventilator 45 10/04/17 06:40 108 22 45 10/04/17 06:00 114 33 139/61 91 Mechanical Ventilator 45 10/04/17 05:09 118 29 45 10/04/17 05:00 117 143/67 95 Mechanical Ventilator 45 10/04/17 04:00 118 10/04/17 04:00 45 10/04/17 04:00 99.9 118 27 140/64 95 Mechanical Ventilator 45 99.9 10/04/17 03:31 105 22 45 10/04/17 03:00 119 27 145/63 95 Mechanical Ventilator 45 10/04/17 02:00 120 28 149/67 95 Mechanical Ventilator 45 10/04/17 01:23 116 24 45 10/04/17 01:00 118 18 137/65 96 Mechanical Ventilator 45 10/04/17 00:00 113 29 141/59 95 Mechanical Ventilator 45 10/04/17 00:00 45 10/04/17 00:00 99.7 113 29 141/59 95 Mechanical Ventilator 45 99.7 10/04/17 00:00 112 10/03/17 23:00 112 31 142/58 95 Mechanical Ventilator 45 10/03/17 22:32 111 22 45 10/03/17 22:00 114 28 135/61 95 Mechanical Ventilator 45 10/03/17 21:50 114 130/58 10/03/17 21:37 111 26 45 10/03/17 21:00 110 32 130/58 96 Mechanical Ventilator 45 10/03/17 20:00 98.4 104 30 129/56 96 Mechanical Ventilator 45 98.4 10/03/17 20:00 105 10/03/17 20:00 45 10/03/17 19:32 105 22 45 10/03/17 19:00 102 28 122/53 96 Mechanical Ventilator 45 10/03/17 18:00 98 26 121/58 97 Mechanical Ventilator 45 10/03/17 17:29 100 23 45 10/03/17 17:00 98 25 118/54 96 Mechanical Ventilator 45 10/03/17 16:00 45 10/03/17 16:00 99.8 101 31 136/61 100 Mechanical Ventilator 45 99.8 10/03/17 16:00 100 10/03/17 15:13 99 24 45 10/03/17 15:00 101 31 136/61 98 Mechanical Ventilator 45 10/03/17 15:00 111 30 136/61 97 10/03/17 15:00 103 30 121/59 97 Mechanical Ventilator 45 10/03/17 14:00 101 27 125/56 97 Mechanical Ventilator 45 Intake and Output 10/03/17 10/04/17 19:00 07:00 Intake Total 800 ml 600 ml Output Total 380 ml 430 ml Balance 420 ml 170 ml IV Total 200 ml Tube Feeding 600 ml 600 ml Output Urine Total 380 ml 430 ml # Bowel Movements 1 Laboratory Tests 10/03/17 16:00: Urine Color Brown, Urine Appearance Slightly cloudy, Urine pH 5, Urine Specific [place] 1.020, Urine Protein 2+H, Urine Glucose (UA) Negative, Urine Ketones Negative, Urine Occult Blood 5+H, Urine Nitrite PositiveH, Urine Bilirubin 2+H, Urine Ictotest Positive, Urine Urobilinogen 1H, Urine Leukocyte Esterase 2+H, Urine RBC 5-10H, Urine WBC 2-4, Urine Squamous Epithelial Cells Few, Urine Bacteria ModerateH 10/04/17 04:20: White Blood Count 10.0, Red Blood Count 3.23L, Hemoglobin 10.2L, Hematocrit 32.3L, Mean Corpuscular Volume 100H, Mean Corpuscular Hemoglobin 31.7H, Mean Corpuscular Hemoglobin Concent 31.7L, Red Cell Distribution Width 19.4H, Platelet Count 99L, Mean Platelet Volume 9.8, Neutrophils (%) (Auto) , Lymphocytes (%) (Auto) , Monocytes (%) (Auto) , Eosinophils (%) (Auto) , Basophils (%) (Auto) , Sodium Level 146H, Potassium Level 3.9, Chloride Level 113H, Carbon Dioxide Level 26, Anion Gap 7, Blood Urea Nitrogen 26H, Creatinine 0.7, Estimat Glomerular Filtration Rate , Glucose Level 144H, Calcium Level 8.1L , Phosphorus Level 3.9, Magnesium Level 2.1, Total Bilirubin 9.2H, Direct Bilirubin 7.4H, Aspartate Amino Transf (AST/SGOT) 62H, Alanine Aminotransferase (ALT/SGPT) 26, Alkaline Phosphatase 957H, Total Protein 5.7L, Albumin 1.5L, Globulin 4.2, Albumin/Globulin Ratio 0.4L 10/04/17 08:44: Arterial Blood pH 7.468H, Arterial Blood Partial Pressure CO2 32.5L, Arterial Blood Partial Pressure O2 66.3L, Arterial Blood HCO3 23.0, Arterial Blood Oxygen Saturation 92.9, Arterial Blood Base Excess -0.2, Luis A Test Positive Height (Feet): 5 Height (Inches): 0.00 Weight (Pounds): 125 General Appearance: no apparent distress EENT: other - on vent Respiratory/Chest: decreased breath sounds Abdomen: distended Objective no change YAEL HANSEN Oct 04, 2017 13:16
[2017-10-04] MEDS: dilTIAZem HCl 30mg tab NG SCH ×2 (13:52→22:15)
--- NOTE | 2017-10-04 15:38 | Internal Med Progress Note ---
Subjective Date of Service: Oct 04, 2017 Physician Name Sina Bowens Attending Physician Jesus Barahona MD Current Medications Medications (Trade) Dose Ordered Sig/Hermes Route PRN Reason Start Time Stop Time Status Last Admin Dose Admin Acetaminophen (Tylenol) 650 mg EVERY 6 HOURS PRN NG Fever/Headache/Mild Pain 09/13/17 20:45 10/13/17 20:44 10/03/17 12:25 Albuterol/ Ipratropium (Albuterol/ Ipratropium) 3 ml Q4H PRN HHN SHORTNESS OF BREATH 10/04/17 10:00 10/09/17 09:59 Clonidine HCl (Catapres Tab) 0.1 mg Q4H PRN ORAL SBP>160 UNRELIEVED BY HYDRALAZ 09/16/17 16:45 10/15/17 16:59 Dextrose (Dextrose 50%) STAT PRN IV Hypoglycemia 09/13/17 15:00 10/13/17 14:59 Diltiazem HCl (Cardizem) 30 mg EVERY 8 HOURS NG 10/04/17 14:00 11/03/17 13:59 10/04/17 13:52 Ertapenem 1 gm/ Sodium Chloride 110 ml @ 220 mls/hr Q24H IVPB 10/04/17 12:00 10/09/17 11:59 10/04/17 12:34 Insulin Aspart (NovoLOG) EVERY 6 HOURS SUBQ 09/17/17 12:00 10/17/17 11:59 10/04/17 12:37 Ketotifen Fumarate (Zatidor) 1 drop DAILY BOTH EYES 09/26/17 09:00 10/25/17 08:59 10/04/17 08:39 Micafungin Sodium 100 mg/Sodium Chloride 110 ml @ 110 mls/hr Q24H IVPB 09/30/17 13:00 10/07/17 12:59 10/04/17 12:38 Pantoprazole (Protonix) 40 mg DAILY IVP 10/02/17 09:00 11/01/17 08:59 10/04/17 08:40 Polyethylene Glycol (Miralax) 17 gm BEDTIME ORAL 09/14/17 21:00 10/14/17 20:59 10/03/17 21:49 Allergies: Coded Allergies: No Known Allergies (Verified , 5/8/09) ROS Limited/Unobtainable: Yes Subjective 76 YO F admitted with Shortness of breath, now respiratory failure. Intubated and sedated. Cover for Internal Med-Dr. Barahona. ICU . S/P ERCP 10/01/17 Objective Last Vital Signs Date Time Temp Pulse Resp B/P (MAP) Pulse Ox O2 Delivery O2 Flow Rate FiO2 10/04/17 13:52 106 131/65 10/04/17 12:35 27 45 10/04/17 11:00 97 Mechanical Ventilator 10/04/17 08:00 98.9 98.9 10/04/17 04:00 Laboratory Tests Test 10/03/17 16:00 10/04/17 04:20 10/04/17 08:44 Urine Color Brown Urine Appearance Slightly cloudy Urine pH 5 (4.5-8.0) Urine Specific [place] 1.020 (1.005-1.035) Urine Protein 2+ (NEGATIVE) H Urine Glucose (UA) Negative (NEGATIVE) Urine Ketones Negative (NEGATIVE) Urine Occult Blood 5+ (NEGATIVE) H Urine Nitrite Positive (NEGATIVE) H Urine Bilirubin 2+ (NEGATIVE) H Urine Ictotest Positive Urine Urobilinogen 1 MG/DL (0.0-1.0) H Urine Leukocyte Esterase 2+ (NEGATIVE) H Urine RBC 5-10 /HPF (0 - 2) H Urine WBC 2-4 /HPF (0 - 2) Urine Squamous Epithelial Cells Few /LPF (NONE/OCC) Urine Bacteria Moderate /HPF (NONE) H White Blood Count 10.0 K/UL (4.8-10.8) Red Blood Count 3.23 M/UL (4.20-5.40) L Hemoglobin 10.2 G/DL (12.0-16.0) L Hematocrit 32.3 % (37.0-47.0) L Mean Corpuscular Volume 100 FL (80-99) H Mean Corpuscular Hemoglobin 31.7 PG (27.0-31.0) H Mean Corpuscular Hemoglobin Concent 31.7 G/DL (32.0-36.0) L Red Cell Distribution Width 19.4 % (11.6-14.8) H Platelet Count 99 K/UL (150-450) L Mean Platelet Volume 9.8 FL (6.5-10.1) Neutrophils (%) (Auto) % (45.0-75.0) Lymphocytes (%) (Auto) % (20.0-45.0) Monocytes (%) (Auto) % (1.0-10.0) Eosinophils (%) (Auto) % (0.0-3.0) Basophils (%) (Auto) % (0.0-2.0) Sodium Level 146 MMOL/L (136-145) H Potassium Level 3.9 MMOL/L (3.5-5.1) Chloride Level 113 MMOL/L (98-107) H Carbon Dioxide Level 26 MMOL/L (21-32) Anion Gap 7 mmol/L (5-15) Blood Urea Nitrogen 26 mg/dL (7-18) H Creatinine 0.7 MG/DL (0.55-1.30) Estimat Glomerular Filtration Rate mL/min (>60) Glucose Level 144 MG/DL (74-106) H Calcium Level 8.1 MG/DL (8.5-10.1) L Phosphorus Level 3.9 MG/DL (2.5-4.9) Magnesium Level 2.1 MG/DL (1.8-2.4) Total Bilirubin 9.2 MG/DL (0.2-1.0) H Direct Bilirubin 7.4 MG/DL (0.0-0.3) H Aspartate Amino Transf (AST/SGOT) 62 U/L (15-37) H Alanine Aminotransferase (ALT/SGPT) 26 U/L (12-78) Alkaline Phosphatase 957 U/L (46-116) H Total Protein 5.7 G/DL (6.4-8.2) L Albumin 1.5 G/DL (3.4-5.0) L Globulin 4.2 g/dL Albumin/Globulin Ratio 0.4 (1.0-2.7) L Arterial Blood pH 7.468 (7.350-7.450) Arterial Blood Partial Pressure CO2 32.5 mmHg (35.0-45.0) L Arterial Blood Partial Pressure O2 66.3 mmHg (75.0-100.0) L Arterial Blood HCO3 23.0 mmol/L (22.0-26.0) Arterial Blood Oxygen Saturation 92.9 % (92.0-98.0) Arterial Blood Base Excess -0.2 Luis A Test Positive Microbiology Date/Time Source Procedure Growth Status 10/03/17 16:00 Urine,Clean Catch Urine Culture - Preliminary NO GROWTH Resulted Intake and Output 10/03/17 10/04/17 19:00 07:00 Intake Total 800 ml 600 ml Output Total 380 ml 430 ml Balance 420 ml 170 ml IV Total 200 ml Tube Feeding 600 ml 600 ml Output Urine Total 380 ml 430 ml # Bowel Movements 1 Objective General Appearance: lethargic, thin EENT: normal ENT inspection Neck: non-tender, normal alignment, supple Cardiovascular: normal peripheral pulses, normal rate, regular rhythm, no gallop/murmur, no JVD Respiratory/Chest: Mechanical vent; respiratory distress, crackles/rales, rhonchi - bilaterally, expiratory wheezing Abdomen: normal bowel sounds, non tender, soft, no organomegaly, no mass Skin: normal pigmentation, warm/dry Assessment/Plan Problem List: (1) HTN (hypertension) Assessment & Plan: Currently hypotensive. (2) Arthritis, rheumatoid (3) Parkinsons disease (4) Aplastic anemia (5) GERD (gastroesophageal reflux disease) (6) Respiratory failure Assessment & Plan: Tracheostomy scheduled next week-see surgery note. Cont vent per pulmonary (7) Pneumonia (8) Dyspnea (9) Sepsis Assessment & Plan: Blood culture neg. Continue Amikacin, micafungin and flagyl per ID (10) ARDS (adult respiratory distress syndrome) Assessment & Plan: See pulmonary note (11) UTI (urinary tract infection) Assessment & Plan: E.Coli. Continue abx per ID (12) Anemia Assessment & Plan: S/P Transfusion 2 units PRBC (13) Diabetes mellitus, type II Assessment & Plan: Continue novolog sliding scale (14) Leukocytosis Assessment & Plan: Worsening. See ID note. Start amikacin and fluconazole (15) Thrombocytopenia Status: not improved SINA BOWENS Oct 04, 2017 15:38
--- NOTE | 2017-10-04 19:00 | General Progress Note ---
Assessment/Plan Assessment/Plan Assessment - Resp failure / ARDS / PNA - Abnormal LFT, Biliary obstruction, possible cholangitis, CBD sludge - bili higher again today - Family declined repeat ERCP - Anemia with OB (+) stools - thrombocytopenia - Malnutrition - hypernatremia - improving - AMS - improved Recommendations - Continue TF - replace lytes - transfuse PRN - Elevate HOB - Vent care - Monitor labs - abx - ? ERCP Mon - will d/w family and Dr. Walton Subjective Allergies: Coded Allergies: No Known Allergies (Verified , 11/18/08) Subjective Above noted arousable but does not follow commands tolerating TF LFT higher Objective Last 24 Hour Vital Signs Date Time Temp Pulse Resp B/P (MAP) Pulse Ox O2 Delivery O2 Flow Rate FiO2 10/04/17 18:00 104 33 140/65 98 Mechanical Ventilator 45 10/04/17 17:00 102 33 129/61 98 Mechanical Ventilator 45 10/04/17 16:00 45 10/04/17 16:00 106 10/04/17 16:00 98.5 104 33 141/66 96 Mechanical Ventilator 45 98.5 10/04/17 15:29 93 20 45 10/04/17 15:00 104 33 129/61 98 Mechanical Ventilator 45 10/04/17 14:00 104 32 128/60 95 Mechanical Ventilator 45 10/04/17 13:52 106 131/65 10/04/17 13:00 104 33 130/64 96 Mechanical Ventilator 45 10/04/17 12:35 106 27 45 10/04/17 12:00 98.7 104 33 131/65 97 Mechanical Ventilator 45 98.7 10/04/17 12:00 104 10/04/17 12:00 45 10/04/17 11:00 104 33 124/54 97 Mechanical Ventilator 45 10/04/17 10:35 103 28 45 10/04/17 10:00 106 33 129/60 97 Mechanical Ventilator 45 10/04/17 09:00 108 35 124/53 97 Mechanical Ventilator 45 10/04/17 08:45 105 30 45 10/04/17 08:40 106 123/64 10/04/17 08:00 106 10/04/17 08:00 98.9 106 33 124/53 98 Mechanical Ventilator 45 98.9 10/04/17 08:00 45 10/04/17 07:00 108 35 123/53 97 Mechanical Ventilator 45 10/04/17 06:40 108 22 45 10/04/17 06:00 114 33 139/61 91 Mechanical Ventilator 45 10/04/17 05:09 118 29 45 10/04/17 05:00 117 143/67 95 Mechanical Ventilator 45 10/04/17 04:00 118 10/04/17 04:00 45 10/04/17 04:00 99.9 118 27 140/64 95 Mechanical Ventilator 45 99.9 10/04/17 03:31 105 22 45 10/04/17 03:00 119 27 145/63 95 Mechanical Ventilator 45 10/04/17 02:00 120 28 149/67 95 Mechanical Ventilator 45 10/04/17 01:23 116 24 45 10/04/17 01:00 118 18 137/65 96 Mechanical Ventilator 45 10/04/17 00:00 113 29 141/59 95 Mechanical Ventilator 45 10/04/17 00:00 45 10/04/17 00:00 99.7 113 29 141/59 95 Mechanical Ventilator 45 99.7 10/04/17 00:00 112 10/03/17 23:00 112 31 142/58 95 Mechanical Ventilator 45 10/03/17 22:32 111 22 45 10/03/17 22:00 114 28 135/61 95 Mechanical Ventilator 45 10/03/17 21:50 114 130/58 10/03/17 21:37 111 26 45 10/03/17 21:00 110 32 130/58 96 Mechanical Ventilator 45 10/03/17 20:00 98.4 104 30 129/56 96 Mechanical Ventilator 45 98.4 10/03/17 20:00 105 10/03/17 20:00 45 10/03/17 19:32 105 22 45 10/03/17 19:00 102 28 122/53 96 Mechanical Ventilator 45 Intake and Output 10/03/17 10/04/17 19:00 07:00 Intake Total 800 ml 600 ml Output Total 380 ml 430 ml Balance 420 ml 170 ml IV Total 200 ml Tube Feeding 600 ml 600 ml Output Urine Total 380 ml 430 ml # Bowel Movements 1 Laboratory Tests 10/04/17 04:20: White Blood Count 10.0, Red Blood Count 3.23L, Hemoglobin 10.2L, Hematocrit 32.3L, Mean Corpuscular Volume 100H, Mean Corpuscular Hemoglobin 31.7H, Mean Corpuscular Hemoglobin Concent 31.7L, Red Cell Distribution Width 19.4H, Platelet Count 99L, Mean Platelet Volume 9.8, Neutrophils (%) (Auto) , Lymphocytes (%) (Auto) , Monocytes (%) (Auto) , Eosinophils (%) (Auto) , Basophils (%) (Auto) , Sodium Level 146H, Potassium Level 3.9, Chloride Level 113H, Carbon Dioxide Level 26, Anion Gap 7, Blood Urea Nitrogen 26H, Creatinine 0.7, Estimat Glomerular Filtration Rate , Glucose Level 144H, Calcium Level 8.1L , Phosphorus Level 3.9, Magnesium Level 2.1, Total Bilirubin 9.2H, Direct Bilirubin 7.4H, Aspartate Amino Transf (AST/SGOT) 62H, Alanine Aminotransferase (ALT/SGPT) 26, Alkaline Phosphatase 957H, Total Protein 5.7L, Albumin 1.5L, Globulin 4.2, Albumin/Globulin Ratio 0.4L 10/04/17 08:44: Arterial Blood pH 7.468H, Arterial Blood Partial Pressure CO2 32.5L, Arterial Blood Partial Pressure O2 66.3L, Arterial Blood HCO3 23.0, Arterial Blood Oxygen Saturation 92.9, Arterial Blood Base Excess -0.2, Luis A Test Positive Height (Feet): 5 Height (Inches): 0.00 Weight (Pounds): 125 Objective WDWN NCAT , (+) ETT supple CTA RRR abd soft (+) edema non verbal ARNULFO DURON Oct 04, 2017 19:00
[2017-10-04] MEDS: Miralax 17gm pkt ORAL SCH (20:42)
--- NOTE | 2017-10-04 22:58 | General Progress Note ---
Assessment/Plan Assessment/Plan #. Anemia due to underlying chronic disease. Continue to closely monitor. --> Hemoglobin goal is above 7. --> Transfuse as necessary --> Anemia workup has been reviewed at this point. --> Hemoglobin levels stable and anemia mild at this time --> Blood transfusion not required #. Leukocytosis likely related to underlying pneumonia infection. --> On antibiotic treatment. --> Wbc count downtrended and WNL at this time. --> Cont to monitor and trend daily. #. Thrombocytopenia, severe and progressive, acute onset, likely secondary to underlying infection, aspiration pneumonia versus HIT. --> Antibody test reviewed. Heparin has been discontinued on 09/18/2017. --> Duplex of the lower extremities is negative, therefore less likely HIT and other causes are more likely such as underlying infection. --> Platelets goal >20k, transfuse if necessary. --> Has Remained low past few days. On antibiotic treatment. --> Improved slightly today. #. Community-acquired pneumonia versus hospital-acquired. --> The patient on broad-spectrum antibiotics. --> Improved. --> Urine culture growing E. coli. Continue to closely monitor. #. Transaminitis. She has been seen by GI Service. Continue to closely monitor. #. Low-grade fever. Closely observe. #. Encephalopathy. Subjective Date patient seen: Oct 04, 2017 Constitutional: Denies: no symptoms, chills, diaphoresis, fever, malaise, weakness, other HEENT: Denies: no symptoms, eye pain, blurred vision, tearing, double vision, ear pain, ear discharge, nose pain, nose congestion, throat pain, throat swelling, mouth pain, mouth swelling, other Cardiovascular: Denies: no symptoms, chest pain, edema, irregular heart rate, lightheadedness, palpitations, syncope, other Respiratory: Denies: no symptoms, cough, orthopnea, shortness of breath, SOB with excertion, SOB at rest, sputum, stridor, wheezing, other Gastrointestinal/Abdominal: Denies: no symptoms, abdomen distended, abdominal pain, black stools, tarry stools, blood in stool, constipated, diarrhea, difficulty swallowing, nausea, poor appetite, poor fluid intake, rectal bleeding , vomiting, other Genitourinary: Denies: no symptoms, burning, discharge, frequency, flank pain, hematuria, incontinence, pain, urgency, other 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: Denies: no symptoms, anxiety, depressed, emotional problems, headache, numbness, paresthesia, pre-existing deficit, seizure, tingling, tremors, weakness, other Hematologic/Lymphatic: Reports: anemia Allergies: Coded Allergies: No Known Allergies (Verified , 11/18/08) Subjective No major events overnight. H/H remains stable. Objective Last 24 Hour Vital Signs Date Time Temp Pulse Resp B/P (MAP) Pulse Ox O2 Delivery O2 Flow Rate FiO2 10/04/17 22:15 93 121/93 10/04/17 21:20 101 27 45 10/04/17 19:30 96 21 45 10/04/17 19:00 95 33 129/50 98 Mechanical Ventilator 45 10/04/17 18:00 104 33 140/65 98 Mechanical Ventilator 45 10/04/17 17:00 102 33 129/61 98 Mechanical Ventilator 45 10/04/17 16:00 45 10/04/17 16:00 106 10/04/17 16:00 98.5 104 33 141/66 96 Mechanical Ventilator 45 98.5 10/04/17 15:29 93 20 45 10/04/17 15:00 104 33 129/61 98 Mechanical Ventilator 45 10/04/17 14:00 104 32 128/60 95 Mechanical Ventilator 45 10/04/17 13:52 106 131/65 10/04/17 13:00 104 33 130/64 96 Mechanical Ventilator 45 10/04/17 12:35 106 27 45 10/04/17 12:00 98.7 104 33 131/65 97 Mechanical Ventilator 45 98.7 10/04/17 12:00 104 10/04/17 12:00 45 10/04/17 11:00 104 33 124/54 97 Mechanical Ventilator 45 10/04/17 10:35 103 28 45 10/04/17 10:00 106 33 129/60 97 Mechanical Ventilator 45 10/04/17 09:00 108 35 124/53 97 Mechanical Ventilator 45 10/04/17 08:45 105 30 45 10/04/17 08:40 106 123/64 10/04/17 08:00 106 10/04/17 08:00 98.9 106 33 124/53 98 Mechanical Ventilator 45 98.9 10/04/17 08:00 45 10/04/17 07:00 108 35 123/53 97 Mechanical Ventilator 45 10/04/17 06:40 108 22 45 10/04/17 06:00 114 33 139/61 91 Mechanical Ventilator 45 10/04/17 05:09 118 29 45 10/04/17 05:00 117 143/67 95 Mechanical Ventilator 45 10/04/17 04:00 118 10/04/17 04:00 45 10/04/17 04:00 99.9 118 27 140/64 95 Mechanical Ventilator 45 99.9 10/04/17 03:31 105 22 45 10/04/17 03:00 119 27 145/63 95 Mechanical Ventilator 45 10/04/17 02:00 120 28 149/67 95 Mechanical Ventilator 45 10/04/17 01:23 116 24 45 10/04/17 01:00 118 18 137/65 96 Mechanical Ventilator 45 10/04/17 00:00 113 29 141/59 95 Mechanical Ventilator 45 10/04/17 00:00 45 10/04/17 00:00 99.7 113 29 141/59 95 Mechanical Ventilator 45 99.7 10/04/17 00:00 112 10/03/17 23:00 112 31 142/58 95 Mechanical Ventilator 45 Intake and Output 10/03/17 10/04/17 19:00 07:00 Intake Total 800 ml 600 ml Output Total 380 ml 430 ml Balance 420 ml 170 ml IV Total 200 ml Tube Feeding 600 ml 600 ml Output Urine Total 380 ml 430 ml # Bowel Movements 1 Laboratory Tests 10/04/17 04:20: White Blood Count 10.0, Red Blood Count 3.23L, Hemoglobin 10.2L, Hematocrit 32.3L, Mean Corpuscular Volume 100H, Mean Corpuscular Hemoglobin 31.7H, Mean Corpuscular Hemoglobin Concent 31.7L, Red Cell Distribution Width 19.4H, Platelet Count 99L, Mean Platelet Volume 9.8, Neutrophils (%) (Auto) , Lymphocytes (%) (Auto) , Monocytes (%) (Auto) , Eosinophils (%) (Auto) , Basophils (%) (Auto) , Sodium Level 146H, Potassium Level 3.9, Chloride Level 113H, Carbon Dioxide Level 26, Anion Gap 7, Blood Urea Nitrogen 26H, Creatinine 0.7, Estimat Glomerular Filtration Rate , Glucose Level 144H, Calcium Level 8.1L , Phosphorus Level 3.9, Magnesium Level 2.1, Total Bilirubin 9.2H, Direct Bilirubin 7.4H, Aspartate Amino Transf (AST/SGOT) 62H, Alanine Aminotransferase (ALT/SGPT) 26, Alkaline Phosphatase 957H, Total Protein 5.7L, Albumin 1.5L, Globulin 4.2, Albumin/Globulin Ratio 0.4L 10/04/17 08:44: Arterial Blood pH 7.468H, Arterial Blood Partial Pressure CO2 32.5L, Arterial Blood Partial Pressure O2 66.3L, Arterial Blood HCO3 23.0, Arterial Blood Oxygen Saturation 92.9, Arterial Blood Base Excess -0.2, Luis A Test Positive Height (Feet): 5 Height (Inches): 0.00 Weight (Pounds): 125 Johnny Sinha MD Oct 04, 2017 22:58
[2017-10-05] VITALS (24 sets, daily range): BP systolic 114–133; BP diastolic 50–65
[2017-10-05] MEDS: NovoLOG Insulin Flexpen SUBQ SCH ×4 (00:01→17:21)
[2017-10-05 05:24] LABS: BASOPHILS % (AUTO) 0.8 % (0.0-2.0); EOSINOPHILS % (AUTO) 2.7 % (0.0-3.0); HEMATOCRIT 30.7 % (37.0-47.0); HEMOGLOBIN 9.5 G/DL (12.0-16.0); LYMPHOCYTES % (AUTO) 7.3 % (20.0-45.0); MEAN CORPUSCULAR VOLUME 103 FL (80-99); NEUTROPHILS % (AUTO) 83.3 % (45.0-75.0); PLATELET COUNT 103 K/UL (150-450); RED BLOOD COUNT 2.98 M/UL (4.20-5.40); RED CELL DISTRIBUTION WIDTH 18.8 % (11.6-14.8); WHITE BLOOD COUNT 7.9 K/UL (4.8-10.8)
[2017-10-05 05:46] LABS: ANION GAP 8 mmol/L (5-15); BLOOD UREA NITROGEN 24 mg/dL (7-18); CALCIUM 7.7 MG/DL (8.5-10.1); CARBON DIOXIDE 26 MMOL/L (21-32); CHLORIDE 114 MMOL/L (98-107); CREATININE 0.7 MG/DL (0.55-1.30); POTASSIUM 3.6 MMOL/L (3.5-5.1); SODIUM 148 MMOL/L (136-145)
[2017-10-05] MEDS: dilTIAZem HCl 30mg tab NG SCH ×3 (06:33→22:12)
--- NOTE | 2017-10-05 07:45 | Pulmonolgy Critical Care Note ---
Critical Care - Asmt/Plan Assessment/Plan: ASSESSMENT Acute hypoxemic RF requiring intubation ARDS failure to wean severe sepsis Aspiration PNA , s/p Rx UTI with E coli, s/p Rx LBBB Diastolic dysfunction anemia of chronic disease s/p blood transfusion thrombocytopenia encephalopathy e/lyte imbalance transaminitis biliary obstruction possible cholangitis CBD sludge periampullary diverticulum HTN moderate AI moderate pulmonary HTN RA severe protein calorie malnutrition PLAN OF CARE ICU status vent support, pulm toilet daily CXR and ABG , titrate settings as needed Failure to wean need trach, planned for Friday if family consent ( no consent yet) cardio follows ECHO with EF 55 and RVSP of 49, moderate AI No evidence of advanced heart block BP management with Cardizem s/p abx Rx for PNA and UTI, ID follows, on Mycamine urine cx+ E coli ,influenza negative s/p empiric Tamiflu OP tube feeding with nutritional recs strict aspiration precautions GI prophylaxis monitor lytes and correct as needed, avoid nephrotoxics anemia w/up c/w anemia of chronic disease s/p blood transfusion PLT low but improved with trend up, hep Ab- 0.07 negative for HIT, heme follows, stool OB + GI follows CT A/P no acute findings HIDA negative but delayed emptying to duodenum s/p ERCP 09/30 with findings of periampullary diverticulum LFT initially were trending down , today up AST and Alk phosphatase Family declined to repeat ERCP BS management with SS insulin bowel regimen case discussed and evaluated by supervising physician Critical Care - Objective Last 24 Hour Vital Signs Date Time Temp Pulse Resp B/P (MAP) Pulse Ox O2 Delivery O2 Flow Rate FiO2 10/05/17 07:04 102 20 45 10/05/17 06:33 103 125/59 10/05/17 06:00 95 23 125/59 95 Mechanical Ventilator 45 10/05/17 05:19 99 24 45 10/05/17 05:00 96 23 124/59 95 Mechanical Ventilator 45 10/05/17 04:00 98.6 98 22 133/60 95 Mechanical Ventilator 45 98.6 10/05/17 04:00 98 10/05/17 04:00 45 10/05/17 03:39 96 20 45 10/05/17 03:00 96 22 120/60 95 Mechanical Ventilator 45 10/05/17 02:00 94 23 122/56 95 Mechanical Ventilator 45 10/05/17 01:06 95 24 45 10/05/17 01:00 91 27 120/58 93 Mechanical Ventilator 45 10/05/17 00:00 45 10/05/17 00:00 99.0 91 27 122/57 95 Mechanical Ventilator 45 99.0 10/05/17 00:00 45 10/05/17 00:00 94 10/04/17 23:24 98 26 45 10/04/17 23:00 99 27 134/69 96 Mechanical Ventilator 45 10/04/17 22:15 93 121/93 10/04/17 22:00 98 27 130/69 96 Mechanical Ventilator 45 10/04/17 21:20 101 27 45 10/04/17 21:00 92 30 121/92 96 Mechanical Ventilator 45 10/04/17 20:00 45 10/04/17 20:00 98.6 95 29 132/62 96 Mechanical Ventilator 45 98.6 10/04/17 19:30 96 21 45 10/04/17 19:00 95 33 129/50 98 Mechanical Ventilator 45 10/04/17 18:00 104 33 140/65 98 Mechanical Ventilator 45 10/04/17 17:00 102 33 129/61 98 Mechanical Ventilator 45 10/04/17 16:00 45 10/04/17 16:00 106 10/04/17 16:00 98.5 104 33 141/66 96 Mechanical Ventilator 45 98.5 10/04/17 15:29 93 20 45 10/04/17 15:00 104 33 129/61 98 Mechanical Ventilator 45 10/04/17 14:00 104 32 128/60 95 Mechanical Ventilator 45 10/04/17 13:52 106 131/65 10/04/17 13:00 104 33 130/64 96 Mechanical Ventilator 45 10/04/17 12:35 106 27 45 10/04/17 12:00 98.7 104 33 131/65 97 Mechanical Ventilator 45 98.7 10/04/17 12:00 104 10/04/17 12:00 45 10/04/17 11:00 104 33 124/54 97 Mechanical Ventilator 45 10/04/17 10:35 103 28 45 10/04/17 10:00 106 33 129/60 97 Mechanical Ventilator 45 10/04/17 09:00 108 35 124/53 97 Mechanical Ventilator 45 10/04/17 08:45 105 30 45 10/04/17 08:40 106 123/64 10/04/17 08:00 106 10/04/17 08:00 98.9 106 33 124/53 98 Mechanical Ventilator 45 98.9 10/04/17 08:00 45 Objective: Condition: critical HEENT: atraumatic, normocephalic, OP with ET in place, intact, NGT Lungs: few scattered crackles at bases Heart: HR/BP stable Abdomen: soft Extremities: no C/C/E Micro: Microbiology Date/Time Source Procedure Growth Status 10/03/17 15:00 Blood Blood Culture - Preliminary NO GROWTH AFTER 24 HOURS Resulted 10/03/17 16:00 Urine,Clean Catch Urine Culture - Final Laila Albicans Complete Accucheck: 142 Critical Care - Subjective ROS Limited/Unobtainable: Yes Interval Events: afebrile, no leucocytosis, CXR without significant change still no consent for trach Condition: critical IV Access: peripheral EKG Rhythm: Sinus Rhythm FI02: 45 Vent Support Breath Rate: 18 Vent Support Mode: AC Vent Tidal Volume: 500 Sputum Amount: Small PEEP: 5.0 PIP: 50 Tube Feeding Amount: 50 I&O: Intake and Output 10/04/17 10/05/17 19:00 07:00 Intake Total 920 ml 740 ml Output Total 340 ml 580 ml Balance 580 ml 160 ml Intake Free Water 100 ml 140 ml IV Total 220 ml Tube Feeding 600 ml 600 ml Output Urine Total 340 ml 580 ml # Bowel Movements 5 CXR: 10/04 Endotracheal tube and nasogastric tube are unchanged. Cardiomediastinal silhouette is stable. Interstitial and airspace opacities are again present. Osseous structures are stable. ET-Tube: 7.5 ET Position: 20 [place] ([facility])Huma NP Oct 05, 2017 07:45
[2017-10-05] MEDS: Pantoprazole Inj IVP SCH (08:38)
[2017-10-05] MEDS: Ketotifen Fumarate 0.035% 5ml BOTH EYES SCH (08:38)
--- NOTE | 2017-10-05 09:52 | Nephrology Progress Note ---
Assessment/Plan Problem List: (1) ARDS (adult respiratory distress syndrome) (2) Electrolyte imbalance (3) Thrombocytopenia Assessment Na wnl Platelets wnl (1) ARDS (adult respiratory distress syndrome) (2) Aspiration pneumonia (3) Protein-calorie malnutrition, severe (4) Diabetes mellitus (5) Anemia , aplastic by history (6) DM (7) UTI (8) Electrolyte imbalance (9) HTN (10) Depression (11) RA . Plan stable due trach on 10/07 k via NGT as needed water via NGT Adjust BP meds K and Phos supplement as needed Monitor renal parameters and urine output avoid nephrotoxics per orders discussed with RN Left ventricular ejection fraction estimated to be 55 %. Subjective ROS Limited/Unobtainable: Yes Objective Objective Last 24 Hour Vital Signs Date Time Temp Pulse Resp B/P (MAP) Pulse Ox O2 Delivery O2 Flow Rate FiO2 10/05/17 09:05 95 21 45 10/05/17 08:00 45 10/05/17 08:00 92 10/05/17 08:00 98.7 93 21 119/50 97 Mechanical Ventilator 45 98.7 10/05/17 07:30 95 20 133/57 97 Mechanical Ventilator 45 10/05/17 07:04 102 20 45 10/05/17 06:33 103 125/59 10/05/17 06:00 95 23 125/59 95 Mechanical Ventilator 45 10/05/17 05:19 99 24 45 10/05/17 05:00 96 23 124/59 95 Mechanical Ventilator 45 10/05/17 04:00 98.6 98 22 133/60 95 Mechanical Ventilator 45 98.6 10/05/17 04:00 98 10/05/17 04:00 45 10/05/17 03:39 96 20 45 10/05/17 03:00 96 22 120/60 95 Mechanical Ventilator 45 10/05/17 02:00 94 23 122/56 95 Mechanical Ventilator 45 10/05/17 01:06 95 24 45 10/05/17 01:00 91 27 120/58 93 Mechanical Ventilator 45 10/05/17 00:00 45 10/05/17 00:00 99.0 91 27 122/57 95 Mechanical Ventilator 45 99.0 10/05/17 00:00 45 10/05/17 00:00 94 10/04/17 23:24 98 26 45 10/04/17 23:00 99 27 134/69 96 Mechanical Ventilator 45 10/04/17 22:15 93 121/93 10/04/17 22:00 98 27 130/69 96 Mechanical Ventilator 45 10/04/17 21:20 101 27 45 10/04/17 21:00 92 30 121/92 96 Mechanical Ventilator 45 10/04/17 20:00 45 10/04/17 20:00 98.6 95 29 132/62 96 Mechanical Ventilator 45 98.6 10/04/17 19:30 96 21 45 10/04/17 19:00 95 33 129/50 98 Mechanical Ventilator 45 10/04/17 18:00 104 33 140/65 98 Mechanical Ventilator 45 10/04/17 17:00 102 33 129/61 98 Mechanical Ventilator 45 10/04/17 16:00 45 10/04/17 16:00 106 10/04/17 16:00 98.5 104 33 141/66 96 Mechanical Ventilator 45 98.5 10/04/17 15:29 93 20 45 10/04/17 15:00 104 33 129/61 98 Mechanical Ventilator 45 10/04/17 14:00 104 32 128/60 95 Mechanical Ventilator 45 10/04/17 13:52 106 131/65 10/04/17 13:00 104 33 130/64 96 Mechanical Ventilator 45 10/04/17 12:35 106 27 45 10/04/17 12:00 98.7 104 33 131/65 97 Mechanical Ventilator 45 98.7 10/04/17 12:00 104 10/04/17 12:00 45 10/04/17 11:00 104 33 124/54 97 Mechanical Ventilator 45 10/04/17 10:35 103 28 45 10/04/17 10:00 106 33 129/60 97 Mechanical Ventilator 45 Intake and Output 10/04/17 10/05/17 19:00 07:00 Intake Total 920 ml 740 ml Output Total 340 ml 580 ml Balance 580 ml 160 ml Intake Free Water 100 ml 140 ml IV Total 220 ml Tube Feeding 600 ml 600 ml Output Urine Total 340 ml 580 ml # Bowel Movements 5 Laboratory Tests 10/05/17 04:10: White Blood Count 7.9, Red Blood Count 2.98L, Hemoglobin 9.5L, Hematocrit 30.7L , Mean Corpuscular Volume 103H, Mean Corpuscular Hemoglobin 31.8H, Mean Corpuscular Hemoglobin Concent 30.9L, Red Cell Distribution Width 18.8H, Platelet Count 103L, Mean Platelet Volume 10.4H, Neutrophils (%) (Auto) 83.3H, Lymphocytes (%) (Auto) 7.3L, Monocytes (%) (Auto) 6.0, Eosinophils (%) (Auto) 2.7, Basophils (%) (Auto) 0.8, Sodium Level 148H, Potassium Level 3.6, Chloride Level 114H, Carbon Dioxide Level 26, Anion Gap 8, Blood Urea Nitrogen 24H, Creatinine 0.7, Estimat Glomerular Filtration Rate , Glucose Level 149H, Calcium Level 7.7L Height (Feet): 5 Height (Inches): 0.00 Weight (Pounds): 114 General Appearance: no apparent distress Respiratory/Chest: decreased breath sounds Abdomen: distended Objective no change YAEL HANSEN 25, 2018 09:52
--- NOTE | 2017-10-05 10:28 | Diagnostic Imaging Report ---
Indication: Shortness of breath Technique: XRAY Chest 1v Comparison: 10/04/2017 Findings: Endotracheal and nasogastric tubes are unchanged. Extensive bilateral interstitial and airspace opacities are seen. Osseous structures are stable. Impression: No significant change from 10/03/2017.
[2017-10-05] MEDS ORDERED: NS 275ml ONE (10:57)
[2017-10-05] MEDS ORDERED: Tubing IV Secondary IV ONE (10:57)
[2017-10-05] MEDS: Ertapenem 1 GM in NS 110 ML IVPB SCH (11:52)
--- NOTE | 2017-10-05 13:27 | Internal Med Progress Note ---
Subjective Date of Service: Oct 05, 2017 Physician Name Sina Bowens Attending Physician Jesus Barahona MD Current Medications Medications (Trade) Dose Ordered Sig/Hermes Route PRN Reason Start Time Stop Time Status Last Admin Dose Admin Acetaminophen (Tylenol) 650 mg EVERY 6 HOURS PRN NG Fever/Headache/Mild Pain 09/13/17 20:45 10/13/17 20:44 10/03/17 12:25 Albuterol/ Ipratropium (Albuterol/ Ipratropium) 3 ml Q4H PRN HHN SHORTNESS OF BREATH 10/04/17 10:00 10/09/17 09:59 Clonidine HCl (Catapres Tab) 0.1 mg Q4H PRN ORAL SBP>160 UNRELIEVED BY HYDRALAZ 09/16/17 16:45 10/15/17 16:59 Dextrose (Dextrose 50%) STAT PRN IV Hypoglycemia 09/13/17 15:00 10/13/17 14:59 Diltiazem HCl (Cardizem) 30 mg EVERY 8 HOURS NG 10/04/17 14:00 11/03/17 13:59 10/05/17 06:33 Ertapenem 1 gm/ Sodium Chloride 110 ml @ 220 mls/hr Q24H IVPB 10/04/17 12:00 10/09/17 11:59 10/05/17 11:52 Insulin Aspart (NovoLOG) EVERY 6 HOURS SUBQ 09/17/17 12:00 10/17/17 11:59 10/05/17 11:54 Ketotifen Fumarate (Zatidor) 1 drop DAILY BOTH EYES 09/26/17 09:00 10/25/17 08:59 10/05/17 08:38 Micafungin Sodium 100 mg/Sodium Chloride 110 ml @ 110 mls/hr Q24H IVPB 09/30/17 13:00 10/07/17 12:59 10/04/17 12:38 Pantoprazole (Protonix) 40 mg DAILY IVP 10/02/17 09:00 11/01/17 08:59 10/05/17 08:38 Polyethylene Glycol (Miralax) 17 gm BEDTIME ORAL 09/14/17 21:00 10/14/17 20:59 10/03/17 21:49 Allergies: Coded Allergies: No Known Allergies (Verified , 5/8/09) ROS Limited/Unobtainable: Yes Subjective 76 YO F admitted with Shortness of breath, now respiratory failure. Intubated and sedated. Cover for Internal Med-Dr. Barahona. ICU . S/P ERCP 10/01/17 Objective Last Vital Signs Date Time Temp Pulse Resp B/P (MAP) Pulse Ox O2 Delivery O2 Flow Rate FiO2 10/05/17 13:10 104 23 45 10/05/17 11:00 118/53 97 Mechanical Ventilator 10/05/17 08:00 98.7 98.7 10/04/17 04:00 Laboratory Tests Test 10/05/17 04:10 White Blood Count 7.9 K/UL (4.8-10.8) Red Blood Count 2.98 M/UL (4.20-5.40) L Hemoglobin 9.5 G/DL (12.0-16.0) L Hematocrit 30.7 % (37.0-47.0) L Mean Corpuscular Volume 103 FL (80-99) H Mean Corpuscular Hemoglobin 31.8 PG (27.0-31.0) H Mean Corpuscular Hemoglobin Concent 30.9 G/DL (32.0-36.0) L Red Cell Distribution Width 18.8 % (11.6-14.8) H Platelet Count 103 K/UL (150-450) L Mean Platelet Volume 10.4 FL (6.5-10.1) H Neutrophils (%) (Auto) 83.3 % (45.0-75.0) H Lymphocytes (%) (Auto) 7.3 % (20.0-45.0) L Monocytes (%) (Auto) 6.0 % (1.0-10.0) Eosinophils (%) (Auto) 2.7 % (0.0-3.0) Basophils (%) (Auto) 0.8 % (0.0-2.0) Sodium Level 148 MMOL/L (136-145) H Potassium Level 3.6 MMOL/L (3.5-5.1) Chloride Level 114 MMOL/L (98-107) H Carbon Dioxide Level 26 MMOL/L (21-32) Anion Gap 8 mmol/L (5-15) Blood Urea Nitrogen 24 mg/dL (7-18) H Creatinine 0.7 MG/DL (0.55-1.30) Estimat Glomerular Filtration Rate mL/min (>60) Glucose Level 149 MG/DL (74-106) H Calcium Level 7.7 MG/DL (8.5-10.1) L Microbiology Date/Time Source Procedure Growth Status 10/03/17 15:00 Blood Blood Culture - Preliminary NO GROWTH AFTER 24 HOURS Resulted 10/03/17 16:00 Urine,Clean Catch Urine Culture - Final Laila Albicans Complete Intake and Output 10/04/17 10/05/17 19:00 07:00 Intake Total 920 ml 740 ml Output Total 340 ml 580 ml Balance 580 ml 160 ml Intake Free Water 100 ml 140 ml IV Total 220 ml Tube Feeding 600 ml 600 ml Output Urine Total 340 ml 580 ml # Bowel Movements 5 Objective General Appearance: lethargic, thin EENT: normal ENT inspection Neck: non-tender, normal alignment, supple Cardiovascular: normal peripheral pulses, normal rate, regular rhythm, no gallop/murmur, no JVD Respiratory/Chest: Mechanical vent; respiratory distress, crackles/rales, rhonchi - bilaterally, expiratory wheezing Abdomen: normal bowel sounds, non tender, soft, no organomegaly, no mass Skin: normal pigmentation, warm/dry Assessment/Plan Problem List: (1) HTN (hypertension) Assessment & Plan: Currently hypotensive. (2) Arthritis, rheumatoid (3) Parkinsons disease (4) Aplastic anemia (5) GERD (gastroesophageal reflux disease) (6) Respiratory failure Assessment & Plan: Tracheostomy scheduled next week-see surgery note. Cont vent per pulmonary (7) Pneumonia (8) Dyspnea (9) Sepsis Assessment & Plan: Blood culture neg. Continue Amikacin, micafungin and flagyl per ID (10) ARDS (adult respiratory distress syndrome) Assessment & Plan: See pulmonary note (11) UTI (urinary tract infection) Assessment & Plan: E.Coli. Continue abx per ID (12) Anemia Assessment & Plan: S/P Transfusion 2 units PRBC (13) Diabetes mellitus, type II Assessment & Plan: Continue novolog sliding scale (14) Leukocytosis Assessment & Plan: Worsening. See ID note. Start amikacin and fluconazole (15) Thrombocytopenia Status: not improved SINA BOWENS Oct 05, 2017 13:27
[2017-10-05] MEDS: Micafungin 100 MG in NS 110 ML IVPB SCH (13:40)
[2017-10-05] MEDS ORDERED: D5 1/2NS 1000ml IV ONE (17:38)
--- NOTE | 2017-10-05 17:45 | General Progress Note ---
Assessment/Plan Assessment/Plan Assessment - Resp failure / ARDS / PNA - Abnormal LFT, Biliary obstruction, possible cholangitis, CBD sludge - bili higher - Family now accepting repeat ERCP - Anemia with OB (+) stools - thrombocytopenia - Malnutrition - hypernatremia - improving - AMS - improved Recommendations - Continue TF - replace lytes - transfuse PRN - Elevate HOB - Vent care - Monitor labs - abx - Repeat ERCP in am Subjective Allergies: Coded Allergies: No Known Allergies (Verified , 11/18/08) Subjective Above noted arousable but does not follow commands tolerating TF d/w Nephew re labs Family now agreeable to repeat ERCP Objective Last 24 Hour Vital Signs Date Time Temp Pulse Resp B/P (MAP) Pulse Ox O2 Delivery O2 Flow Rate FiO2 10/05/17 17:05 95 20 45 10/05/17 17:00 94 28 121/54 96 Mechanical Ventilator 45 10/05/17 16:00 98.5 92 26 128/55 98 Mechanical Ventilator 45 98.5 10/05/17 16:00 93 10/05/17 16:00 45 10/05/17 15:14 96 24 45 10/05/17 15:00 95 28 123/55 98 Mechanical Ventilator 45 10/05/17 14:00 98 30 124/54 97 Mechanical Ventilator 45 10/05/17 13:41 103 126/55 10/05/17 13:10 104 23 45 10/05/17 13:00 103 30 119/54 97 Mechanical Ventilator 45 10/05/17 12:00 96 10/05/17 12:00 45 10/05/17 12:00 98.6 102 33 120/55 97 Mechanical Ventilator 45 98.6 10/05/17 11:22 98 20 45 10/05/17 11:00 98 37 118/53 97 Mechanical Ventilator 45 10/05/17 10:00 97 32 117/53 97 Mechanical Ventilator 45 10/05/17 09:05 95 21 45 10/05/17 09:00 96 33 118/50 97 Mechanical Ventilator 45 10/05/17 08:00 45 10/05/17 08:00 92 10/05/17 08:00 98.7 93 21 119/50 97 Mechanical Ventilator 45 98.7 10/05/17 07:30 95 20 133/57 97 Mechanical Ventilator 45 10/05/17 07:04 102 20 45 10/05/17 06:33 103 125/59 10/05/17 06:00 95 23 125/59 95 Mechanical Ventilator 45 10/05/17 05:19 99 24 45 10/05/17 05:00 96 23 124/59 95 Mechanical Ventilator 45 10/05/17 04:00 98.6 98 22 133/60 95 Mechanical Ventilator 45 98.6 10/05/17 04:00 98 10/05/17 04:00 45 10/05/17 03:39 96 20 45 10/05/17 03:00 96 22 120/60 95 Mechanical Ventilator 45 10/05/17 02:00 94 23 122/56 95 Mechanical Ventilator 45 10/05/17 01:06 95 24 45 10/05/17 01:00 91 27 120/58 93 Mechanical Ventilator 45 10/05/17 00:00 45 10/05/17 00:00 99.0 91 27 122/57 95 Mechanical Ventilator 45 99.0 10/05/17 00:00 45 10/05/17 00:00 94 10/04/17 23:24 98 26 45 10/04/17 23:00 99 27 134/69 96 Mechanical Ventilator 45 10/04/17 22:15 93 121/93 10/04/17 22:00 98 27 130/69 96 Mechanical Ventilator 45 10/04/17 21:20 101 27 45 10/04/17 21:00 92 30 121/92 96 Mechanical Ventilator 45 10/04/17 20:00 45 10/04/17 20:00 98.6 95 29 132/62 96 Mechanical Ventilator 45 98.6 10/04/17 19:30 96 21 45 10/04/17 19:00 95 33 129/50 98 Mechanical Ventilator 45 10/04/17 18:00 104 33 140/65 98 Mechanical Ventilator 45 Intake and Output 10/04/17 10/05/17 19:00 07:00 Intake Total 920 ml 740 ml Output Total 340 ml 580 ml Balance 580 ml 160 ml Intake Free Water 100 ml 140 ml IV Total 220 ml Tube Feeding 600 ml 600 ml Output Urine Total 340 ml 580 ml # Bowel Movements 5 Laboratory Tests 10/05/17 04:10: White Blood Count 7.9, Red Blood Count 2.98L, Hemoglobin 9.5L, Hematocrit 30.7L , Mean Corpuscular Volume 103H, Mean Corpuscular Hemoglobin 31.8H, Mean Corpuscular Hemoglobin Concent 30.9L, Red Cell Distribution Width 18.8H, Platelet Count 103L, Mean Platelet Volume 10.4H, Neutrophils (%) (Auto) 83.3H, Lymphocytes (%) (Auto) 7.3L, Monocytes (%) (Auto) 6.0, Eosinophils (%) (Auto) 2.7, Basophils (%) (Auto) 0.8, Sodium Level 148H, Potassium Level 3.6, Chloride Level 114H, Carbon Dioxide Level 26, Anion Gap 8, Blood Urea Nitrogen 24H, Creatinine 0.7, Estimat Glomerular Filtration Rate , Glucose Level 149H, Calcium Level 7.7L Height (Feet): 5 Height (Inches): 0.00 Weight (Pounds): 114 Objective WDWN NCAT , (+) ETT supple CTA RRR abd soft (+) edema non verbal ARNULFO DURON Oct 05, 2017 17:45
[2017-10-05] MEDS: Miralax 17gm pkt ORAL SCH (21:00)
--- NOTE | 2017-10-05 23:49 | General Progress Note ---
Assessment/Plan Assessment/Plan #. Anemia due to underlying chronic disease. Continue to closely monitor. --> Hemoglobin goal is above 7. --> Transfuse as necessary --> Anemia workup has been reviewed at this point. --> Hemoglobin levels stable and anemia mild at this time --> Blood transfusion not required #. Leukocytosis likely related to underlying pneumonia infection. --> On antibiotic treatment. --> Wbc count downtrended and WNL at this time. --> Cont to monitor and trend daily. #. Thrombocytopenia, severe and progressive, acute onset, likely secondary to underlying infection, aspiration pneumonia versus HIT. --> Antibody test reviewed. Heparin has been discontinued on 09/18/2017. --> Duplex of the lower extremities is negative, therefore less likely HIT and other causes are more likely such as underlying infection. --> Platelets goal >20k, transfuse if necessary. --> Has Remained low past few days. On antibiotic treatment. --> Improved slightly today. #. Community-acquired pneumonia versus hospital-acquired. --> The patient on broad-spectrum antibiotics. --> Improved. --> Urine culture growing E. coli. Continue to closely monitor. #. Transaminitis. She has been seen by GI Service. Continue to closely monitor. #. Low-grade fever. Closely observe. #. Encephalopathy. Subjective Date patient seen: Oct 05, 2017 Constitutional: Denies: no symptoms, chills, diaphoresis, fever, malaise, weakness, other HEENT: Denies: no symptoms, eye pain, blurred vision, tearing, double vision, ear pain, ear discharge, nose pain, nose congestion, throat pain, throat swelling, mouth pain, mouth swelling, other Cardiovascular: Denies: no symptoms, chest pain, edema, irregular heart rate, lightheadedness, palpitations, syncope, other Respiratory: Denies: no symptoms, cough, orthopnea, shortness of breath, SOB with excertion, SOB at rest, sputum, stridor, wheezing, other Gastrointestinal/Abdominal: Denies: no symptoms, abdomen distended, abdominal pain, black stools, tarry stools, blood in stool, constipated, diarrhea, difficulty swallowing, nausea, poor appetite, poor fluid intake, rectal bleeding , vomiting, other Genitourinary: Denies: no symptoms, burning, discharge, frequency, flank pain, hematuria, incontinence, pain, urgency, other 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: Denies: no symptoms, anxiety, depressed, emotional problems, headache, numbness, paresthesia, pre-existing deficit, seizure, tingling, tremors, weakness, other Hematologic/Lymphatic: Reports: anemia Allergies: Coded Allergies: No Known Allergies (Verified , 11/18/08) Subjective No major events overnight. No fever or chills. Objective Last 24 Hour Vital Signs Date Time Temp Pulse Resp B/P (MAP) Pulse Ox O2 Delivery O2 Flow Rate FiO2 10/05/17 22:52 97 19 45 10/05/17 22:12 94 128/65 10/05/17 21:30 94 18 45 10/05/17 19:30 91 20 45 10/05/17 19:00 95 28 114/57 96 Mechanical Ventilator 45 10/05/17 18:00 95 28 115/57 96 Mechanical Ventilator 45 10/05/17 17:05 95 20 45 10/05/17 17:00 94 28 121/54 96 Mechanical Ventilator 45 10/05/17 16:00 98.5 92 26 128/55 98 Mechanical Ventilator 45 98.5 10/05/17 16:00 93 10/05/17 16:00 45 10/05/17 15:14 96 24 45 10/05/17 15:00 95 28 123/55 98 Mechanical Ventilator 45 10/05/17 14:00 98 30 124/54 97 Mechanical Ventilator 45 10/05/17 13:41 103 126/55 10/05/17 13:10 104 23 45 10/05/17 13:00 103 30 119/54 97 Mechanical Ventilator 45 10/05/17 12:00 96 10/05/17 12:00 45 10/05/17 12:00 98.6 102 33 120/55 97 Mechanical Ventilator 45 98.6 10/05/17 11:22 98 20 45 10/05/17 11:00 98 37 118/53 97 Mechanical Ventilator 45 10/05/17 10:00 97 32 117/53 97 Mechanical Ventilator 45 10/05/17 09:05 95 21 45 10/05/17 09:00 96 33 118/50 97 Mechanical Ventilator 45 10/05/17 08:00 45 10/05/17 08:00 92 10/05/17 08:00 98.7 93 21 119/50 97 Mechanical Ventilator 45 98.7 10/05/17 07:30 95 20 133/57 97 Mechanical Ventilator 45 10/05/17 07:04 102 20 45 10/05/17 06:33 103 125/59 10/05/17 06:00 95 23 125/59 95 Mechanical Ventilator 45 10/05/17 05:19 99 24 45 10/05/17 05:00 96 23 124/59 95 Mechanical Ventilator 45 10/05/17 04:00 98.6 98 22 133/60 95 Mechanical Ventilator 45 98.6 10/05/17 04:00 98 10/05/17 04:00 45 10/05/17 03:39 96 20 45 10/05/17 03:00 96 22 120/60 95 Mechanical Ventilator 45 10/05/17 02:00 94 23 122/56 95 Mechanical Ventilator 45 10/05/17 01:06 95 24 45 10/05/17 01:00 91 27 120/58 93 Mechanical Ventilator 45 10/05/17 00:00 45 10/05/17 00:00 99.0 91 27 122/57 95 Mechanical Ventilator 45 99.0 10/05/17 00:00 45 10/05/17 00:00 94 Intake and Output 10/04/17 10/05/17 19:00 07:00 Intake Total 920 ml 740 ml Output Total 340 ml 580 ml Balance 580 ml 160 ml Intake Free Water 100 ml 140 ml IV Total 220 ml Tube Feeding 600 ml 600 ml Output Urine Total 340 ml 580 ml # Bowel Movements 5 Laboratory Tests 10/05/17 04:10: White Blood Count 7.9, Red Blood Count 2.98L, Hemoglobin 9.5L, Hematocrit 30.7L , Mean Corpuscular Volume 103H, Mean Corpuscular Hemoglobin 31.8H, Mean Corpuscular Hemoglobin Concent 30.9L, Red Cell Distribution Width 18.8H, Platelet Count 103L, Mean Platelet Volume 10.4H, Neutrophils (%) (Auto) 83.3H, Lymphocytes (%) (Auto) 7.3L, Monocytes (%) (Auto) 6.0, Eosinophils (%) (Auto) 2.7, Basophils (%) (Auto) 0.8, Sodium Level 148H, Potassium Level 3.6, Chloride Level 114H, Carbon Dioxide Level 26, Anion Gap 8, Blood Urea Nitrogen 24H, Creatinine 0.7, Estimat Glomerular Filtration Rate , Glucose Level 149H, Calcium Level 7.7L Height (Feet): 5 Height (Inches): 0.00 Weight (Pounds): 114 General Appearance: no apparent distress Respiratory/Chest: decreased breath sounds Abdomen: soft Johnny Sinha MD Oct 05, 2017 23:49
[2017-10-06] VITALS (24 sets, daily range): BP systolic 79–184; BP diastolic 41–118
[2017-10-06] MEDS: NovoLOG Insulin Flexpen SUBQ SCH ×5 (00:08→23:36)
[2017-10-06] MEDS: dilTIAZem HCl 30mg tab NG SCH ×3 (05:41→22:11)
[2017-10-06 05:57] LABS: BASOPHILS % (AUTO) 1.4 % (0.0-2.0); EOSINOPHILS % (AUTO) 3.7 % (0.0-3.0); HEMATOCRIT 29.1 % (37.0-47.0); HEMOGLOBIN 9.3 G/DL (12.0-16.0); MEAN CORPUSCULAR VOLUME 102 FL (80-99); MONOCYTES % (AUTO) 9.2 % (1.0-10.0); NEUTROPHILS % (AUTO) 79.7 % (45.0-75.0); PLATELET COUNT 123 K/UL (150-450); RED BLOOD COUNT 2.86 M/UL (4.20-5.40); RED CELL DISTRIBUTION WIDTH 18.7 % (11.6-14.8); WHITE BLOOD COUNT 8.6 K/UL (4.8-10.8)
[2017-10-06 06:16] LABS: INR 1.4 (0.9-1.1)
[2017-10-06 06:23] LABS: ALANINE AMINOTRANSFERASE 28 U/L (12-78); ALBUMIN 1.4 G/DL (3.4-5.0); ALBUMIN/GLOBULIN RATIO 0.3 (1.0-2.7); ALKALINE PHOSPHATASE 1207 U/L (46-116); ANION GAP 6 mmol/L (5-15); ASPARTATE AMINO TRANSFERASE 58 U/L (15-37); BLOOD UREA NITROGEN 26 mg/dL (7-18); CALCIUM 7.6 MG/DL (8.5-10.1); CARBON DIOXIDE 27 MMOL/L (21-32); CHLORIDE 116 MMOL/L (98-107); CREATININE 0.6 MG/DL (0.55-1.30); POTASSIUM 3.7 MMOL/L (3.5-5.1); SODIUM 149 MMOL/L (136-145)
[2017-10-06 06:24] LABS: BILIRUBIN,DIRECT 7.6 MG/DL (0.0-0.3)
--- NOTE | 2017-10-06 08:10 | Pulmonolgy Critical Care Note ---
Critical Care - Asmt/Plan Problems: (1) Abnormal LFTs (2) Aspiration pneumonia (3) ARDS (adult respiratory distress syndrome) (4) Protein-calorie malnutrition, severe (5) UTI (urinary tract infection) (6) Respiratory failure (7) Sepsis (8) Parkinsons disease (9) GERD (gastroesophageal reflux disease) (10) Thrombocytopenia (11) Electrolyte imbalance (12) Leukocytosis Respiratory: adjust FIO2 - Titrate down FiO2 and PEEP to keep SaO2 > 90%, other - Optimize pulmonary hygiene/mobilize as tolerated, awaiting consent for trach Cardiac: continue to monitor HR/BP, other - F.U repeat TTE Renal: F/U I&O, other - Check TTE to assess filling pressures Infectious Disease: check cultures, continue antibiotics, other - Check CT CAP Gastrointestinal: continue feedings/current rate, other - F/U GI recs , F/U LFT 's, OCTO ERCP today Endocrine: monitor blood sugar Hematologic: monitor H/H Neurologic: keep patient comfortable Prophylaxis: Protonix, SCDs Disposition: keep in ICU Time Spent (Minutes): 40 Notes Reviewed: mule driver, cardio, renal, ID, GI Discussed with: nurses, consultants Critical Care - Objective Last 24 Hour Vital Signs Date Time Temp Pulse Resp B/P (MAP) Pulse Ox O2 Delivery O2 Flow Rate FiO2 10/06/17 07:32 84 18 45 10/06/17 07:00 88 33 95/56 98 Mechanical Ventilator 45 10/06/17 06:00 85 33 99/45 98 Mechanical Ventilator 45 10/06/17 05:41 90 128/61 10/06/17 05:30 92 19 45 10/06/17 05:00 90 33 102/45 98 Mechanical Ventilator 45 10/06/17 04:00 99.1 93 33 126/51 98 Mechanical Ventilator 45 99.1 10/06/17 04:00 95 10/06/17 04:00 45 10/06/17 03:30 97 21 45 10/06/17 03:00 98 33 120/63 98 Mechanical Ventilator 45 10/06/17 02:00 100 33 135/63 98 Mechanical Ventilator 45 10/06/17 01:46 45 10/06/17 01:30 74 18 45 10/06/17 01:00 91 33 120/58 97 Mechanical Ventilator 45 10/06/17 00:00 98.8 91 34 126/58 97 Mechanical Ventilator 45 98.8 10/06/17 00:00 91 10/05/17 23:00 90 34 127/57 97 Mechanical Ventilator 45 10/05/17 22:52 97 19 45 10/05/17 22:12 94 128/65 10/05/17 22:00 96 33 126/55 96 Mechanical Ventilator 45 10/05/17 21:30 94 18 45 10/05/17 21:00 97 37 128/65 97 Mechanical Ventilator 45 10/05/17 20:00 99.0 94 36 130/59 97 Mechanical Ventilator 45 99.0 10/05/17 20:00 94 10/05/17 19:30 91 20 45 10/05/17 19:00 95 28 114/57 96 Mechanical Ventilator 45 10/05/17 18:00 95 28 115/57 96 Mechanical Ventilator 45 10/05/17 17:05 95 20 45 10/05/17 17:00 94 28 121/54 96 Mechanical Ventilator 45 10/05/17 16:00 98.5 92 26 128/55 98 Mechanical Ventilator 45 98.5 10/05/17 16:00 93 10/05/17 16:00 45 10/05/17 15:14 96 24 45 10/05/17 15:00 95 28 123/55 98 Mechanical Ventilator 45 10/05/17 14:00 98 30 124/54 97 Mechanical Ventilator 45 10/05/17 13:41 103 126/55 10/05/17 13:10 104 23 45 10/05/17 13:00 103 30 119/54 97 Mechanical Ventilator 45 10/05/17 12:00 96 10/05/17 12:00 45 10/05/17 12:00 98.6 102 33 120/55 97 Mechanical Ventilator 45 98.6 10/05/17 11:22 98 20 45 10/05/17 11:00 98 37 118/53 97 Mechanical Ventilator 45 10/05/17 10:00 97 32 117/53 97 Mechanical Ventilator 45 10/05/17 09:05 95 21 45 10/05/17 09:00 96 33 118/50 97 Mechanical Ventilator 45 Status: somnolent Condition: critical HEENT: atraumatic Neck: full ROM Lungs: rhonchi - scattered Heart: HR/BP stable Abdomen: soft, non-tender, active bowel sounds Extremities: no C/C/E Micro: Microbiology Date/Time Source Procedure Growth Status 10/03/17 15:00 Blood Blood Culture - Preliminary NO GROWTH AFTER 48 HOURS Resulted 10/03/17 16:00 Urine,Clean Catch Urine Culture - Final Laila Albicans Complete Accucheck: 81 Critical Care - Subjective ROS Limited/Unobtainable: Yes ICU Day: 25 Intubation Day: 25 Condition: critical IV Access: peripheral EKG Rhythm: Sinus Rhythm FI02: 45 Vent Support Breath Rate: 18 Vent Support Mode: AC Vent Tidal Volume: 500 Sputum Amount: Small PEEP: 5.0 PIP: 51 Secretions: Minimal blood tinged, + oral blood tigned as well Fluids: TKO Tube Feeding Amount: 50 Residuals: Help for ERCP I&O: Intake and Output 10/05/17 10/06/17 19:00 07:00 Intake Total 870 ml 330 ml Output Total 350 ml 530 ml Balance 520 ml -200 ml Intake Free Water 50 ml 80 ml IV Total 220 ml Tube Feeding 600 ml 250 ml Output Urine Total 350 ml 530 ml # Bowel Movements 3 5 Subjective: Sedated but follow some commands CXR: Extensive b airspace and interstitial opacities ET-Tube: 7.5 ET Position: 20 Labs: Laboratory Tests Test 10/06/17 05:00 White Blood Count 8.6 K/UL (4.8-10.8) Red Blood Count 2.86 M/UL (4.20-5.40) L Hemoglobin 9.3 G/DL (12.0-16.0) L Hematocrit 29.1 % (37.0-47.0) L Mean Corpuscular Volume 102 FL (80-99) H Mean Corpuscular Hemoglobin 32.5 PG (27.0-31.0) H Mean Corpuscular Hemoglobin Concent 32.0 G/DL (32.0-36.0) Red Cell Distribution Width 18.7 % (11.6-14.8) H Platelet Count 123 K/UL (150-450) L Mean Platelet Volume 10.1 FL (6.5-10.1) Neutrophils (%) (Auto) 79.7 % (45.0-75.0) H Lymphocytes (%) (Auto) 6.0 % (20.0-45.0) L Monocytes (%) (Auto) 9.2 % (1.0-10.0) Eosinophils (%) (Auto) 3.7 % (0.0-3.0) H Basophils (%) (Auto) 1.4 % (0.0-2.0) Prothrombin Time 14.8 SEC (9.30-11.50) H Prothromb Time International Ratio 1.4 (0.9-1.1) H Sodium Level 149 MMOL/L (136-145) H Potassium Level 3.7 MMOL/L (3.5-5.1) Chloride Level 116 MMOL/L (98-107) H Carbon Dioxide Level 27 MMOL/L (21-32) Anion Gap 6 mmol/L (5-15) Blood Urea Nitrogen 26 mg/dL (7-18) H Creatinine 0.6 MG/DL (0.55-1.30) Estimat Glomerular Filtration Rate mL/min (>60) Glucose Level 81 MG/DL (74-106) Calcium Level 7.6 MG/DL (8.5-10.1) L Total Bilirubin 9.0 MG/DL (0.2-1.0) H Direct Bilirubin 7.6 MG/DL (0.0-0.3) H Aspartate Amino Transf (AST/SGOT) 58 U/L (15-37) H Alanine Aminotransferase (ALT/SGPT) 28 U/L (12-78) Alkaline Phosphatase 1207 U/L (46-116) H Total Protein 5.6 G/DL (6.4-8.2) L Albumin 1.4 G/DL (3.4-5.0) L Globulin 4.2 g/dL Albumin/Globulin Ratio 0.3 (1.0-2.7) L DEYA CHRISTINE M.D. Oct 06, 2017 08:10
--- NOTE | 2017-10-06 08:10 | Diagnostic Imaging Report ---
Indication: Pain, intraoperative imaging Technique: Intraoperative images Comparison: none Findings: 2 intraoperative images demonstrate an endoscope. No opacified ducts are demonstrated Impression: Limited intraoperative imaging, as described
[2017-10-06] MEDS: Ketotifen Fumarate 0.035% 5ml BOTH EYES SCH (09:00)
[2017-10-06] MEDS: Pantoprazole Inj IVP SCH (10:01)
--- NOTE | 2017-10-06 10:49 | Diagnostic Imaging Report ---
Indication: Shortness of breath Technique: One view of the chest Comparison: 10/05/2017 Findings: Again demonstrated are extensive diffuse bilateral interstitial and airspace infiltrates versus edema, unchanged. Stable satisfactory positions of endotracheal and nasogastric tubes Impression: Unchanged, over one day, findings as above.
--- NOTE | 2017-10-06 10:53 | Infectious Diseases Prog Note ---
Assessment/Plan Assessment/Plan The patient is a 76-year-old female w Fever, low grade, intermittent; improving ? persistent cholangitis as increased LFTs again -u.a no pyuria, ucx NTD -CXR 10/04 : Interstitial and airspace opacities are again present -Bcx 10/03 NTD Leukocytosis , resolved- likely cholangitis -Cdiff neg -09/22 sp cx C.a lbicans, Bcx Neg -u/a wbc 10-15, nit neg, leuk +2; ucx >100k C. albicans -Fungal sp cx p Community-acquired vs healthcare-associated pneumonia, s/p RX (the patient has been recently hospitalized in [facility]). -now ARDS- r/o fungal PNA -CXR 09/29: - cxray 09/26 : no changes -CT chest 09/23: Diffuse extensive pulmonary parenchymal disease, with dense consolidation interspersed with groundglass opacities. Appearance nonspecific, possibilities include pulmonary edema, pneumonia, ARDS, hemorrhage. Bilateral pleural effusions, left greater than right. Diffuse edema of the subcutaneous fat, Multiple small thyroid nodules. All apparently under 1 cm, no further follow-up necessary. Degenerative changes of the shoulders 09/19 xray : Unchanged diffuse interstitial and airspace edema, -CrAg serum, U legionell ag neg; Asp ag, Cocci, fungitell p Probable influenza despite of negative influenza screening test, s/p Rx Abnormal liver function tests, ALP>>> AST -2ry to sludged CBD ,cholangitis, obstruction on CBD; AST/ALT normal now, ALP improved but now worsening again -s/p ERCP with stent placement 10/01 -EUS 09/30: 1. Dilated common bile duct with lots of sludge in the distal common bile duct, most probably explanation for abnormal liver function tests. 2. Large ascites -Abd US 09/29: Cholelithiasis, better demonstrated than on prior exam. Thickened gallbladder wall could indicate acute cholecystitis. However, gallbladder wall thickening also evident on prior study of 09/19/2017, after which a hepatobiliary scan was negative, so suspect this is more likely due to hemodynamic derangements given presence of ascites and pleural fluid. Extrahepatic biliary ductal dilatation, equivocally slightly increased from 2017. Downstream obstruction not excludable. Coarsened hepatic echotexture, consistent with hepatocellular disease, nonspecific as regards etiology. Equivocal hepatic surface micronodularity, could indicate early cirrhotic changes. -HIDA scan: Negative for evidence of cystic duct obstruction/acute cholecystitis. Common bile duct is demonstrated be patent, but emptying into the duodenum is delayed, not seen until 2 hours. Significance of this is uncertain. MRCP or CT scanning may be useful to clarify -CT abd/p 09/23: Evidence of anasarca, with diffuse edema subcutaneous and mesenteric fat, bilateral pleural effusions, possible pulmonary edema, trace ascites. Densities within the gallbladder, probably reflecting tiny gallstones, although these are not identifiable on recent ultrasound. Gallbladder wall edema is probably a manifestation of anasarca, as recent hepatobiliary scan was negative for acute cholecystitis. Old ununited fracture deformities of the right pelvis. Bilateral chronic appearing hip dislocations Ultrasound of the abdomen : Gallbladder sludge. No definite stones. 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 -R/o HIT. Abx and protonix could be also be contributors. VDRF / ARDS HTN GERD History of auditory hallucination. Depression. Anemia. Rheumatoid arthritis. History of gastritis. PLAN: -Continue Micafungin #/ for cholangitis and Ertapenem #3/5-7 given low grade fevers and rise in LFts, concern for persistent cholangitis. 10/02 SP Amikacin #10 09/30 SP Flagyl #8 09/25 sp Fluconazole #3 (held due to rise ALP) 09/23 SP Meropenem #5, PO Vanco #2 09/21 SP tamiflu #10 -f/u Repeat cultures -f/u Asp ag, fungitell, Cocci ab, fungal sp cx -For ECRP today Monitor CBC.; Trend WBC Monitor BMP.; Trend LFTs Monitor chest x-ray -GI, heme onc f/u Subjective Allergies: Coded Allergies: No Known Allergies (Verified , 11/18/08) Subjective afebrile in 72hrs no leukocytosis ALP worsening; for ERCP today Objective Vital Signs Last 24 Hour Vital Signs Date Time Temp Pulse Resp B/P (MAP) Pulse Ox O2 Delivery O2 Flow Rate FiO2 10/06/17 09:12 101 20 45 10/06/17 08:00 98.6 102 27 134/65 96 Mechanical Ventilator 45 98.6 10/06/17 08:00 45 10/06/17 07:32 84 18 45 10/06/17 07:00 88 33 95/56 98 Mechanical Ventilator 45 10/06/17 06:00 85 33 99/45 98 Mechanical Ventilator 45 10/06/17 05:41 90 128/61 10/06/17 05:30 92 19 45 10/06/17 05:00 90 33 102/45 98 Mechanical Ventilator 45 10/06/17 04:00 99.1 93 33 126/51 98 Mechanical Ventilator 45 99.1 10/06/17 04:00 95 10/06/17 04:00 45 10/06/17 03:30 97 21 45 10/06/17 03:00 98 33 120/63 98 Mechanical Ventilator 45 10/06/17 02:00 100 33 135/63 98 Mechanical Ventilator 45 10/06/17 01:46 45 10/06/17 01:30 74 18 45 10/06/17 01:00 91 33 120/58 97 Mechanical Ventilator 45 10/06/17 00:00 98.8 91 34 126/58 97 Mechanical Ventilator 45 98.8 10/06/17 00:00 91 10/05/17 23:00 90 34 127/57 97 Mechanical Ventilator 45 10/05/17 22:52 97 19 45 10/05/17 22:12 94 128/65 10/05/17 22:00 96 33 126/55 96 Mechanical Ventilator 45 10/05/17 21:30 94 18 45 10/05/17 21:00 97 37 128/65 97 Mechanical Ventilator 45 10/05/17 20:00 99.0 94 36 130/59 97 Mechanical Ventilator 45 99.0 10/05/17 20:00 94 10/05/17 19:30 91 20 45 10/05/17 19:00 95 28 114/57 96 Mechanical Ventilator 45 10/05/17 18:00 95 28 115/57 96 Mechanical Ventilator 45 10/05/17 17:05 95 20 45 10/05/17 17:00 94 28 121/54 96 Mechanical Ventilator 45 10/05/17 16:00 98.5 92 26 128/55 98 Mechanical Ventilator 45 98.5 10/05/17 16:00 93 10/05/17 16:00 45 10/05/17 15:14 96 24 45 10/05/17 15:00 95 28 123/55 98 Mechanical Ventilator 45 10/05/17 14:00 98 30 124/54 97 Mechanical Ventilator 45 10/05/17 13:41 103 126/55 10/05/17 13:10 104 23 45 10/05/17 13:00 103 30 119/54 97 Mechanical Ventilator 45 10/05/17 12:00 96 10/05/17 12:00 45 10/05/17 12:00 98.6 102 33 120/55 97 Mechanical Ventilator 45 98.6 10/05/17 11:22 98 20 45 10/05/17 11:00 98 37 118/53 97 Mechanical Ventilator 45 Height (Feet): 5 Height (Inches): 0.00 Weight (Pounds): 108 Objective General Appearance: lethargic, thin EENT: normal ENT inspection Neck: non-tender, normal alignment, supple Cardiovascular: normal peripheral pulses, normal rate, regular rhythm, no gallop/murmur, no JVD Respiratory/Chest: Mechanical vent; respiratory distress, crackles/rales, rhonchi - bilaterally, expiratory wheezing Abdomen: normal bowel sounds, non tender, soft, no organomegaly, no mass Skin: normal pigmentation, warm/dry Microbiology Date/Time Source Procedure Growth Status 10/03/17 15:00 Blood Blood Culture - Preliminary NO GROWTH AFTER 48 HOURS Resulted 10/03/17 16:00 Urine,Clean Catch Urine Culture - Final Laila Albicans Complete Laboratory Tests Test 10/06/17 04:00 10/06/17 05:00 Arterial Blood pH 7.440 (7.350-7.450) Arterial Blood Partial Pressure CO2 31.7 mmHg (35.0-45.0) L Arterial Blood Partial Pressure O2 73.8 mmHg (75.0-100.0) L Arterial Blood HCO3 21.0 mmol/L (22.0-26.0) L Arterial Blood Oxygen Saturation 94.2 % (92.0-98.0) Arterial Blood Base Excess -2.5 Luis A Test Positive White Blood Count 8.6 K/UL (4.8-10.8) Red Blood Count 2.86 M/UL (4.20-5.40) L Hemoglobin 9.3 G/DL (12.0-16.0) L Hematocrit 29.1 % (37.0-47.0) L Mean Corpuscular Volume 102 FL (80-99) H Mean Corpuscular Hemoglobin 32.5 PG (27.0-31.0) H Mean Corpuscular Hemoglobin Concent 32.0 G/DL (32.0-36.0) Red Cell Distribution Width 18.7 % (11.6-14.8) H Platelet Count 123 K/UL (150-450) L Mean Platelet Volume 10.1 FL (6.5-10.1) Neutrophils (%) (Auto) 79.7 % (45.0-75.0) H Lymphocytes (%) (Auto) 6.0 % (20.0-45.0) L Monocytes (%) (Auto) 9.2 % (1.0-10.0) Eosinophils (%) (Auto) 3.7 % (0.0-3.0) H Basophils (%) (Auto) 1.4 % (0.0-2.0) Prothrombin Time 14.8 SEC (9.30-11.50) H Prothromb Time International Ratio 1.4 (0.9-1.1) H Sodium Level 149 MMOL/L (136-145) H Potassium Level 3.7 MMOL/L (3.5-5.1) Chloride Level 116 MMOL/L (98-107) H Carbon Dioxide Level 27 MMOL/L (21-32) Anion Gap 6 mmol/L (5-15) Blood Urea Nitrogen 26 mg/dL (7-18) H Creatinine 0.6 MG/DL (0.55-1.30) Estimat Glomerular Filtration Rate mL/min (>60) Glucose Level 81 MG/DL (74-106) Calcium Level 7.6 MG/DL (8.5-10.1) L Total Bilirubin 9.0 MG/DL (0.2-1.0) H Direct Bilirubin 7.6 MG/DL (0.0-0.3) H Aspartate Amino Transf (AST/SGOT) 58 U/L (15-37) H Alanine Aminotransferase (ALT/SGPT) 28 U/L (12-78) Alkaline Phosphatase 1207 U/L (46-116) H Total Protein 5.6 G/DL (6.4-8.2) L Albumin 1.4 G/DL (3.4-5.0) L Globulin 4.2 g/dL Albumin/Globulin Ratio 0.3 (1.0-2.7) L Current Medications Medications (Trade) Dose Ordered Sig/Hermes Route PRN Reason Start Time Stop Time Status Last Admin Dose Admin Acetaminophen (Tylenol) 650 mg EVERY 6 HOURS PRN NG Fever/Headache/Mild Pain 09/13/17 20:45 10/13/17 20:44 10/03/17 12:25 Albuterol/ Ipratropium (Albuterol/ Ipratropium) 3 ml Q4H PRN HHN SHORTNESS OF BREATH 10/04/17 10:00 10/09/17 09:59 Clonidine HCl (Catapres Tab) 0.1 mg Q4H PRN ORAL SBP>160 UNRELIEVED BY HYDRALAZ 09/16/17 16:45 10/15/17 16:59 Dextrose (Dextrose 50%) STAT PRN IV Hypoglycemia 09/13/17 15:00 10/13/17 14:59 Diltiazem HCl (Cardizem) 30 mg EVERY 8 HOURS NG 10/04/17 14:00 11/03/17 13:59 10/05/17 22:12 Ertapenem 1 gm/ Sodium Chloride 110 ml @ 220 mls/hr Q24H IVPB 10/04/17 12:00 10/09/17 11:59 10/05/17 11:52 Insulin Aspart (NovoLOG) EVERY 6 HOURS SUBQ 09/17/17 12:00 10/17/17 11:59 10/06/17 00:08 Ketotifen Fumarate (Zatidor) 1 drop DAILY BOTH EYES 09/26/17 09:00 10/25/17 08:59 10/06/17 09:00 Micafungin Sodium 100 mg/Sodium Chloride 110 ml @ 110 mls/hr Q24H IVPB 09/30/17 13:00 10/07/17 12:59 10/05/17 13:40 Pantoprazole (Protonix) 40 mg DAILY IVP 10/02/17 09:00 11/01/17 08:59 10/06/17 10:01 Polyethylene Glycol (Miralax) 17 gm BEDTIME ORAL 09/14/17 21:00 10/14/17 20:59 10/03/17 21:49 Madelyn Frey M.D. Oct 06, 2017 10:53
[2017-10-06] MEDS: Ertapenem 1 GM in NS 110 ML IVPB SCH (11:51)
[2017-10-06] MEDS: Micafungin 100 MG in NS 110 ML IVPB SCH (12:42)
--- NOTE | 2017-10-06 17:01 | Cardiac Electrophysiology PN ---
Assessment/Plan Assessment/Plan 1. Respiratory failure, due to underlying ARDS , pneumonia. Intubated on the vent. Already ruled out for myocardial infarction. Now on 45% Fio2 with PEEP of 5. Tracheostomy postponed as now getting ERCP tomorrow 2. Left bundle-branch block. No evidence of advanced heart block. 3. HTN and diastolic dysfunction. Change Cardizem to 30 NG q8 hr. Echo EF 55% 4. Hypernatremia and Azotemia. F/U per Dr Mayer 5. Pneumonia and sepsis on IV antibiotics by Dr. Hunter. 6. Psychiatric disorder. 7. Anasarca. 3rd spacing. 8. Anemia with Hb 6.6 s/p PRBC. CT chest abdomen and pelvis without contrast no acute finding S/P EGD by Dr Walton 9. Severe thrombocytopenia. S/P platelet transfusion 10. Abnormal LFT, Biliary obstruction, possible cholangitis. S/P ERCP. CBD sludge. Rrepeat ERCP tomorrow as Bilirubin 9 DW RN Subjective Subjective Intubated on Vent in ICU. No SVT or VT overnight. RN at bedside. Objective Last 24 Hour Vital Signs Date Time Temp Pulse Resp B/P (MAP) Pulse Ox O2 Delivery O2 Flow Rate FiO2 10/06/17 16:00 98.6 105 21 127/58 95 Mechanical Ventilator 45 98.6 10/06/17 16:00 45 10/06/17 15:14 99 18 45 10/06/17 15:00 99 21 127/58 95 Mechanical Ventilator 45 10/06/17 15:00 95 119/55 10/06/17 14:00 93 22 109/51 97 Mechanical Ventilator 45 10/06/17 13:08 113 22 45 10/06/17 13:00 111 21 152/72 97 Mechanical Ventilator 45 10/06/17 12:00 98.9 95 22 116/54 97 Mechanical Ventilator 45 98.9 10/06/17 12:00 99 10/06/17 12:00 45 10/06/17 11:00 98 21 129/57 95 Mechanical Ventilator 45 10/06/17 10:53 105 20 45 10/06/17 10:00 100 28 119/55 95 Mechanical Ventilator 45 10/06/17 09:12 101 20 45 10/06/17 09:00 107 22 132/54 94 Mechanical Ventilator 45 10/06/17 08:00 98.6 102 27 134/65 96 Mechanical Ventilator 45 98.6 10/06/17 08:00 102 10/06/17 08:00 45 10/06/17 07:32 84 18 45 10/06/17 07:00 88 33 95/56 98 Mechanical Ventilator 45 10/06/17 06:00 85 33 99/45 98 Mechanical Ventilator 45 10/06/17 05:41 90 128/61 10/06/17 05:30 92 19 45 10/06/17 05:00 90 33 102/45 98 Mechanical Ventilator 45 10/06/17 04:00 99.1 93 33 126/51 98 Mechanical Ventilator 45 99.1 10/06/17 04:00 95 10/06/17 04:00 45 10/06/17 03:30 97 21 45 10/06/17 03:00 98 33 120/63 98 Mechanical Ventilator 45 10/06/17 02:00 100 33 135/63 98 Mechanical Ventilator 45 10/06/17 01:46 45 10/06/17 01:30 74 18 45 10/06/17 01:00 91 33 120/58 97 Mechanical Ventilator 45 10/06/17 00:00 98.8 91 34 126/58 97 Mechanical Ventilator 45 98.8 10/06/17 00:00 91 10/05/17 23:00 90 34 127/57 97 Mechanical Ventilator 45 10/05/17 22:52 97 19 45 10/05/17 22:12 94 128/65 10/05/17 22:00 96 33 126/55 96 Mechanical Ventilator 45 10/05/17 21:30 94 18 45 10/05/17 21:00 97 37 128/65 97 Mechanical Ventilator 45 10/05/17 20:00 99.0 94 36 130/59 97 Mechanical Ventilator 45 99.0 10/05/17 20:00 94 10/05/17 19:30 91 20 45 10/05/17 19:00 95 28 114/57 96 Mechanical Ventilator 45 10/05/17 18:00 95 28 115/57 96 Mechanical Ventilator 45 10/05/17 17:05 95 20 45 10/05/17 17:00 94 28 121/54 96 Mechanical Ventilator 45 Intake and Output 10/05/17 10/06/17 19:00 07:00 Intake Total 870 ml 330 ml Output Total 350 ml 530 ml Balance 520 ml -200 ml Intake Free Water 50 ml 80 ml IV Total 220 ml Tube Feeding 600 ml 250 ml Output Urine Total 350 ml 530 ml # Bowel Movements 3 5 Laboratory Tests Test 10/06/17 04:00 10/06/17 05:00 Arterial Blood pH 7.440 (7.350-7.450) Arterial Blood Partial Pressure CO2 31.7 mmHg (35.0-45.0) L Arterial Blood Partial Pressure O2 73.8 mmHg (75.0-100.0) L Arterial Blood HCO3 21.0 mmol/L (22.0-26.0) L Arterial Blood Oxygen Saturation 94.2 % (92.0-98.0) Arterial Blood Base Excess -2.5 Luis A Test Positive White Blood Count 8.6 K/UL (4.8-10.8) Red Blood Count 2.86 M/UL (4.20-5.40) L Hemoglobin 9.3 G/DL (12.0-16.0) L Hematocrit 29.1 % (37.0-47.0) L Mean Corpuscular Volume 102 FL (80-99) H Mean Corpuscular Hemoglobin 32.5 PG (27.0-31.0) H Mean Corpuscular Hemoglobin Concent 32.0 G/DL (32.0-36.0) Red Cell Distribution Width 18.7 % (11.6-14.8) H Platelet Count 123 K/UL (150-450) L Mean Platelet Volume 10.1 FL (6.5-10.1) Neutrophils (%) (Auto) 79.7 % (45.0-75.0) H Lymphocytes (%) (Auto) 6.0 % (20.0-45.0) L Monocytes (%) (Auto) 9.2 % (1.0-10.0) Eosinophils (%) (Auto) 3.7 % (0.0-3.0) H Basophils (%) (Auto) 1.4 % (0.0-2.0) Prothrombin Time 14.8 SEC (9.30-11.50) H Prothromb Time International Ratio 1.4 (0.9-1.1) H Sodium Level 149 MMOL/L (136-145) H Potassium Level 3.7 MMOL/L (3.5-5.1) Chloride Level 116 MMOL/L (98-107) H Carbon Dioxide Level 27 MMOL/L (21-32) Anion Gap 6 mmol/L (5-15) Blood Urea Nitrogen 26 mg/dL (7-18) H Creatinine 0.6 MG/DL (0.55-1.30) Estimat Glomerular Filtration Rate mL/min (>60) Glucose Level 81 MG/DL (74-106) Calcium Level 7.6 MG/DL (8.5-10.1) L Total Bilirubin 9.0 MG/DL (0.2-1.0) H Direct Bilirubin 7.6 MG/DL (0.0-0.3) H Aspartate Amino Transf (AST/SGOT) 58 U/L (15-37) H Alanine Aminotransferase (ALT/SGPT) 28 U/L (12-78) Alkaline Phosphatase 1207 U/L (46-116) H Total Protein 5.6 G/DL (6.4-8.2) L Albumin 1.4 G/DL (3.4-5.0) L Globulin 4.2 g/dL Albumin/Globulin Ratio 0.3 (1.0-2.7) L Objective HEAD AND NECK: Orally intubated. NG tube in LUNGS: Coarse rhonchi bilaterally CARDIOVASCULAR: Tachy S1 and S2.No murmur ABDOMEN: Soft. EXTREMITIES: 1+ pitting edema. Charlie Darnell MD Oct 06, 2017 17:01
--- NOTE | 2017-10-06 17:07 | Nephrology Progress Note ---
Assessment/Plan Problem List: (1) ARDS (adult respiratory distress syndrome) (2) Electrolyte imbalance (3) Thrombocytopenia Assessment Na wnl Platelets wnl (1) ARDS (adult respiratory distress syndrome) (2) Aspiration pneumonia (3) Protein-calorie malnutrition, severe (4) Diabetes mellitus (5) Anemia , aplastic by history (6) DM (7) UTI (8) Electrolyte imbalance (9) HTN (10) Depression (11) RA . Plan stable due trach on 10/07 k via NGT as needed water via NGT Adjust BP meds K and Phos supplement as needed Monitor renal parameters and urine output avoid nephrotoxics per orders discussed with RN Left ventricular ejection fraction estimated to be 55 %. Subjective ROS Limited/Unobtainable: Yes Objective Objective Last 24 Hour Vital Signs Date Time Temp Pulse Resp B/P (MAP) Pulse Ox O2 Delivery O2 Flow Rate FiO2 10/06/17 16:00 98.6 105 21 127/58 95 Mechanical Ventilator 45 98.6 10/06/17 16:00 45 10/06/17 15:14 99 18 45 10/06/17 15:00 99 21 127/58 95 Mechanical Ventilator 45 10/06/17 15:00 95 119/55 10/06/17 14:00 93 22 109/51 97 Mechanical Ventilator 45 10/06/17 13:08 113 22 45 10/06/17 13:00 111 21 152/72 97 Mechanical Ventilator 45 10/06/17 12:00 98.9 95 22 116/54 97 Mechanical Ventilator 45 98.9 10/06/17 12:00 99 10/06/17 12:00 45 10/06/17 11:00 98 21 129/57 95 Mechanical Ventilator 45 10/06/17 10:53 105 20 45 10/06/17 10:00 100 28 119/55 95 Mechanical Ventilator 45 10/06/17 09:12 101 20 45 10/06/17 09:00 107 22 132/54 94 Mechanical Ventilator 45 10/06/17 08:00 98.6 102 27 134/65 96 Mechanical Ventilator 45 98.6 10/06/17 08:00 102 10/06/17 08:00 45 10/06/17 07:32 84 18 45 10/06/17 07:00 88 33 95/56 98 Mechanical Ventilator 45 10/06/17 06:00 85 33 99/45 98 Mechanical Ventilator 45 10/06/17 05:41 90 128/61 10/06/17 05:30 92 19 45 10/06/17 05:00 90 33 102/45 98 Mechanical Ventilator 45 10/06/17 04:00 99.1 93 33 126/51 98 Mechanical Ventilator 45 99.1 10/06/17 04:00 95 10/06/17 04:00 45 10/06/17 03:30 97 21 45 10/06/17 03:00 98 33 120/63 98 Mechanical Ventilator 45 10/06/17 02:00 100 33 135/63 98 Mechanical Ventilator 45 10/06/17 01:46 45 10/06/17 01:30 74 18 45 10/06/17 01:00 91 33 120/58 97 Mechanical Ventilator 45 10/06/17 00:00 98.8 91 34 126/58 97 Mechanical Ventilator 45 98.8 10/06/17 00:00 91 10/05/17 23:00 90 34 127/57 97 Mechanical Ventilator 45 10/05/17 22:52 97 19 45 10/05/17 22:12 94 128/65 10/05/17 22:00 96 33 126/55 96 Mechanical Ventilator 45 10/05/17 21:30 94 18 45 10/05/17 21:00 97 37 128/65 97 Mechanical Ventilator 45 10/05/17 20:00 99.0 94 36 130/59 97 Mechanical Ventilator 45 99.0 10/05/17 20:00 94 10/05/17 19:30 91 20 45 10/05/17 19:00 95 28 114/57 96 Mechanical Ventilator 45 10/05/17 18:00 95 28 115/57 96 Mechanical Ventilator 45 Intake and Output 10/05/17 10/06/17 19:00 07:00 Intake Total 870 ml 330 ml Output Total 350 ml 530 ml Balance 520 ml -200 ml Intake Free Water 50 ml 80 ml IV Total 220 ml Tube Feeding 600 ml 250 ml Output Urine Total 350 ml 530 ml # Bowel Movements 3 5 Laboratory Tests 10/06/17 04:00: Arterial Blood pH 7.440, Arterial Blood Partial Pressure CO2 31.7L, Arterial Blood Partial Pressure O2 73.8L, Arterial Blood HCO3 21.0L, Arterial Blood Oxygen Saturation 94.2, Arterial Blood Base Excess -2.5, Luis A Test Positive 10/06/17 05:00: White Blood Count 8.6, Red Blood Count 2.86L, Hemoglobin 9.3L, Hematocrit 29.1L , Mean Corpuscular Volume 102H, Mean Corpuscular Hemoglobin 32.5H, Mean Corpuscular Hemoglobin Concent 32.0, Red Cell Distribution Width 18.7H, Platelet Count 123L, Mean Platelet Volume 10.1, Neutrophils (%) (Auto) 79.7H, Lymphocytes (%) (Auto) 6.0L, Monocytes (%) (Auto) 9.2, Eosinophils (%) (Auto) 3.7H, Basophils (%) (Auto) 1.4, Prothrombin Time 14.8H, Prothromb Time International Ratio 1.4H, Sodium Level 149H, Potassium Level 3.7, Chloride Level 116H, Carbon Dioxide Level 27, Anion Gap 6, Blood Urea Nitrogen 26H, Creatinine 0.6, Estimat Glomerular Filtration Rate , Glucose Level 81, Calcium Level 7.6L, Total Bilirubin 9.0H, Direct Bilirubin 7.6H, Aspartate Amino Transf (AST/SGOT) 58H, Alanine Aminotransferase (ALT/SGPT) 28, Alkaline Phosphatase 1207H, Total Protein 5.6L, Albumin 1.4L, Globulin 4.2, Albumin/Globulin Ratio 0.3L Height (Feet): 5 Height (Inches): 0.00 Weight (Pounds): 108 General Appearance: no apparent distress Objective no change YAEL HANSEN Oct 06, 2017 17:07
--- NOTE | 2017-10-06 17:48 | Internal Med Progress Note ---
Subjective Date of Service: Oct 06, 2017 Physician Name Sina Bowens Attending Physician Jesus Barahona MD Current Medications Medications (Trade) Dose Ordered Sig/Hermes Route PRN Reason Start Time Stop Time Status Last Admin Dose Admin Acetaminophen (Tylenol) 650 mg EVERY 6 HOURS PRN NG Fever/Headache/Mild Pain 09/13/17 20:45 10/13/17 20:44 10/03/17 12:25 Albuterol/ Ipratropium (Albuterol/ Ipratropium) 3 ml Q4H PRN HHN SHORTNESS OF BREATH 10/04/17 10:00 10/09/17 09:59 Clonidine HCl (Catapres Tab) 0.1 mg Q4H PRN ORAL SBP>160 UNRELIEVED BY HYDRALAZ 09/16/17 16:45 10/15/17 16:59 Dextrose (Dextrose 50%) STAT PRN IV Hypoglycemia 09/13/17 15:00 10/13/17 14:59 Diltiazem HCl (Cardizem) 30 mg EVERY 8 HOURS NG 10/04/17 14:00 11/03/17 13:59 10/06/17 15:00 Ertapenem 1 gm/ Sodium Chloride 110 ml @ 220 mls/hr Q24H IVPB 10/04/17 12:00 10/09/17 11:59 10/06/17 11:51 Insulin Aspart (NovoLOG) EVERY 6 HOURS SUBQ 09/17/17 12:00 10/17/17 11:59 10/06/17 00:08 Ketotifen Fumarate (Zatidor) 1 drop DAILY BOTH EYES 09/26/17 09:00 10/25/17 08:59 10/06/17 09:00 Micafungin Sodium 100 mg/Sodium Chloride 110 ml @ 110 mls/hr Q24H IVPB 09/30/17 13:00 10/09/17 23:59 10/06/17 12:42 Pantoprazole (Protonix) 40 mg DAILY IVP 10/02/17 09:00 11/01/17 08:59 10/06/17 10:01 Polyethylene Glycol (Miralax) 17 gm BEDTIME ORAL 09/14/17 21:00 10/14/17 20:59 10/03/17 21:49 Allergies: Coded Allergies: No Known Allergies (Verified , 5/8/09) ROS Limited/Unobtainable: Yes Subjective 76 YO F admitted with Shortness of breath, now respiratory failure. Intubated and sedated. Cover for Internal Med-Dr. Barahona. ICU . S/P ERCP 10/01/17 Objective Last Vital Signs Date Time Temp Pulse Resp B/P (MAP) Pulse Ox O2 Delivery O2 Flow Rate FiO2 10/06/17 17:12 96 19 45 10/06/17 17:00 117/53 95 Mechanical Ventilator 10/06/17 16:00 98.6 98.6 10/04/17 04:00 Laboratory Tests Test 10/06/17 04:00 10/06/17 05:00 Arterial Blood pH 7.440 (7.350-7.450) Arterial Blood Partial Pressure CO2 31.7 mmHg (35.0-45.0) L Arterial Blood Partial Pressure O2 73.8 mmHg (75.0-100.0) L Arterial Blood HCO3 21.0 mmol/L (22.0-26.0) L Arterial Blood Oxygen Saturation 94.2 % (92.0-98.0) Arterial Blood Base Excess -2.5 Luis A Test Positive White Blood Count 8.6 K/UL (4.8-10.8) Red Blood Count 2.86 M/UL (4.20-5.40) L Hemoglobin 9.3 G/DL (12.0-16.0) L Hematocrit 29.1 % (37.0-47.0) L Mean Corpuscular Volume 102 FL (80-99) H Mean Corpuscular Hemoglobin 32.5 PG (27.0-31.0) H Mean Corpuscular Hemoglobin Concent 32.0 G/DL (32.0-36.0) Red Cell Distribution Width 18.7 % (11.6-14.8) H Platelet Count 123 K/UL (150-450) L Mean Platelet Volume 10.1 FL (6.5-10.1) Neutrophils (%) (Auto) 79.7 % (45.0-75.0) H Lymphocytes (%) (Auto) 6.0 % (20.0-45.0) L Monocytes (%) (Auto) 9.2 % (1.0-10.0) Eosinophils (%) (Auto) 3.7 % (0.0-3.0) H Basophils (%) (Auto) 1.4 % (0.0-2.0) Prothrombin Time 14.8 SEC (9.30-11.50) H Prothromb Time International Ratio 1.4 (0.9-1.1) H Sodium Level 149 MMOL/L (136-145) H Potassium Level 3.7 MMOL/L (3.5-5.1) Chloride Level 116 MMOL/L (98-107) H Carbon Dioxide Level 27 MMOL/L (21-32) Anion Gap 6 mmol/L (5-15) Blood Urea Nitrogen 26 mg/dL (7-18) H Creatinine 0.6 MG/DL (0.55-1.30) Estimat Glomerular Filtration Rate mL/min (>60) Glucose Level 81 MG/DL (74-106) Calcium Level 7.6 MG/DL (8.5-10.1) L Total Bilirubin 9.0 MG/DL (0.2-1.0) H Direct Bilirubin 7.6 MG/DL (0.0-0.3) H Aspartate Amino Transf (AST/SGOT) 58 U/L (15-37) H Alanine Aminotransferase (ALT/SGPT) 28 U/L (12-78) Alkaline Phosphatase 1207 U/L (46-116) H Total Protein 5.6 G/DL (6.4-8.2) L Albumin 1.4 G/DL (3.4-5.0) L Globulin 4.2 g/dL Albumin/Globulin Ratio 0.3 (1.0-2.7) L Intake and Output 10/05/17 10/06/17 19:00 07:00 Intake Total 870 ml 330 ml Output Total 350 ml 530 ml Balance 520 ml -200 ml Intake Free Water 50 ml 80 ml IV Total 220 ml Tube Feeding 600 ml 250 ml Output Urine Total 350 ml 530 ml # Bowel Movements 3 5 Objective General Appearance: lethargic, thin EENT: normal ENT inspection Neck: non-tender, normal alignment, supple Cardiovascular: normal peripheral pulses, normal rate, regular rhythm, no gallop/murmur, no JVD Respiratory/Chest: Mechanical vent; respiratory distress, crackles/rales, rhonchi - bilaterally, expiratory wheezing Abdomen: normal bowel sounds, non tender, soft, no organomegaly, no mass Skin: normal pigmentation, warm/dry Assessment/Plan Problem List: (1) HTN (hypertension) Assessment & Plan: Currently hypotensive. (2) Arthritis, rheumatoid (3) Parkinsons disease (4) Aplastic anemia (5) GERD (gastroesophageal reflux disease) (6) Respiratory failure Assessment & Plan: Tracheostomy scheduled this week-see surgery note. Cont vent per pulmonary (7) Pneumonia (8) Dyspnea (9) Sepsis Assessment & Plan: Blood culture neg. Continue Amikacin, micafungin and flagyl per ID (10) ARDS (adult respiratory distress syndrome) Assessment & Plan: See pulmonary note (11) UTI (urinary tract infection) Assessment & Plan: E.Coli. Continue abx per ID (12) Anemia Assessment & Plan: S/P Transfusion 2 units PRBC (13) Diabetes mellitus, type II Assessment & Plan: Continue novolog sliding scale (14) Leukocytosis Assessment & Plan: Worsening. See ID note. Start amikacin and fluconazole (15) Thrombocytopenia Status: not improved SINA BOWENS Oct 06, 2017 17:48
--- NOTE | 2017-10-06 18:08 | Cardiology Report ---
APPROVED REPORT EXAM: Two-dimensional and M-mode echocardiogram with Doppler and color Doppler. INDICATION Ejection Fraction/ Follow up exam M-Mode DIMENSIONS IVSd1.0 (0.7-1.1cm)Left Atrium (MM)3.2 (1.6-4.0cm) LVDd3.5 (3.5-5.6cm)Aortic Root2.7 (2.0-3.7cm) PWd0.7 (0.7-1.1cm)Aortic Cusp Exc.1.9 (1.5-2.0cm) LVDs2.5 (2.5-4.0cm) PWs1.2 cm Technically difficult and limited study due to patient on ventilator. Study quality precludes accurate assessment of regional wall motion. Normal left ventricular chamber size. Borderline left ventricular systolic function. Left ventricular ejection fraction estimated to be 50%. No evidence of left ventricular hypertrophy. Anterior Echo-free space, may be due to pericardial fat or effusion. All other cardiac chamber sizes are within normal limits. Focal aortic valve sclerosis with adequate cusp excursion. Mildly thickened mitral valve leaflets with normal excursion. Mild mitral annulus and aortic root calcification. Pulmonic valve not visualized. Normal tricuspid valve structure. IVC measures at 1.8 c.m. without physiological collapse. A color flow and spectral Doppler study was performed and revealed: Mild to moderate aortic insufficiency. Trace mitral regurgitation. Mitral diastolic velocities suggest mild left ventricular diastolic dysfunction (Grade I). Mild tricuspid regurgitation. Tricuspid systolic velocities suggests peak right ventricular systolic pressure of 53 mmHg, consistent with moderate pulmonary hypertension. No pulmonic regurgitation present.
--- NOTE | 2017-10-06 18:39 | General Progress Note ---
Assessment/Plan Problem List: (1) Arthritis, rheumatoid ICD Codes: M06.9 - Rheumatoid arthritis, unspecified SNOMED: 02151459 (2) Aspiration pneumonia ICD Codes: J69.0 - Pneumonitis due to inhalation of food and vomit SNOMED: 826664843 (3) Diabetes mellitus ICD Codes: E11.9 - Type 2 diabetes mellitus without complications SNOMED: 16510989 (4) ARDS (adult respiratory distress syndrome) ICD Codes: J80 - Acute respiratory distress syndrome SNOMED: 63848560 (5) Transaminitis ICD Codes: R74.0 - Nonspecific elevation of levels of transaminase and lactic acid dehydrogenase [LDH] SNOMED: 176579785, 780805099 (6) Dyspnea ICD Codes: R06.00 - Dyspnea, unspecified SNOMED: 181814200 (7) Parkinsons disease ICD Codes: G20 - Parkinson's disease SNOMED: 92030511 (8) Sepsis ICD Codes: A41.9 - Sepsis, unspecified organism SNOMED: 66071045 (9) GERD (gastroesophageal reflux disease) ICD Codes: K21.9 - Gastro-esophageal reflux disease without esophagitis SNOMED: 022487227 (10) Aplastic anemia ICD Codes: D61.9 - Aplastic anemia, unspecified SNOMED: 095082057 (11) Pneumonia ICD Codes: J18.9 - Pneumonia, unspecified organism SNOMED: 998422004 (12) HTN (hypertension) ICD Codes: I10 - Essential (primary) hypertension SNOMED: 53038670 Assessment/Plan Encephalopathy, agitation, psychotic disorder. -cont current meds -ativan prn Subjective Date patient seen: Oct 06, 2017 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: Reports: anxiety, depressed Allergies: Coded Allergies: No Known Allergies (Verified , 11/18/08) Subjective the pt is more alert Objective Last 24 Hour Vital Signs Date Time Temp Pulse Resp B/P (MAP) Pulse Ox O2 Delivery O2 Flow Rate FiO2 10/06/17 18:00 92 21 120/53 96 Mechanical Ventilator 45 10/06/17 17:12 96 19 45 10/06/17 17:00 92 18 117/53 95 Mechanical Ventilator 45 10/06/17 16:00 98.6 105 21 127/58 95 Mechanical Ventilator 45 98.6 10/06/17 16:00 96 10/06/17 16:00 45 10/06/17 15:14 99 18 45 10/06/17 15:00 99 21 127/58 95 Mechanical Ventilator 45 10/06/17 15:00 95 119/55 10/06/17 14:00 93 22 109/51 97 Mechanical Ventilator 45 10/06/17 13:08 113 22 45 10/06/17 13:00 111 21 152/72 97 Mechanical Ventilator 45 10/06/17 12:00 98.9 95 22 116/54 97 Mechanical Ventilator 45 98.9 10/06/17 12:00 99 10/06/17 12:00 45 10/06/17 11:00 98 21 129/57 95 Mechanical Ventilator 45 10/06/17 10:53 105 20 45 10/06/17 10:00 100 28 119/55 95 Mechanical Ventilator 45 10/06/17 09:12 101 20 45 10/06/17 09:00 107 22 132/54 94 Mechanical Ventilator 45 10/06/17 08:00 98.6 102 27 134/65 96 Mechanical Ventilator 45 98.6 10/06/17 08:00 102 10/06/17 08:00 45 10/06/17 07:32 84 18 45 10/06/17 07:00 88 33 95/56 98 Mechanical Ventilator 45 10/06/17 06:00 85 33 99/45 98 Mechanical Ventilator 45 10/06/17 05:41 90 128/61 10/06/17 05:30 92 19 45 10/06/17 05:00 90 33 102/45 98 Mechanical Ventilator 45 10/06/17 04:00 99.1 93 33 126/51 98 Mechanical Ventilator 45 99.1 10/06/17 04:00 95 10/06/17 04:00 45 10/06/17 03:30 97 21 45 10/06/17 03:00 98 33 120/63 98 Mechanical Ventilator 45 10/06/17 02:00 100 33 135/63 98 Mechanical Ventilator 45 10/06/17 01:46 45 10/06/17 01:30 74 18 45 10/06/17 01:00 91 33 120/58 97 Mechanical Ventilator 45 10/06/17 00:00 98.8 91 34 126/58 97 Mechanical Ventilator 45 98.8 10/06/17 00:00 91 10/05/17 23:00 90 34 127/57 97 Mechanical Ventilator 45 10/05/17 22:52 97 19 45 10/05/17 22:12 94 128/65 10/05/17 22:00 96 33 126/55 96 Mechanical Ventilator 45 10/05/17 21:30 94 18 45 10/05/17 21:00 97 37 128/65 97 Mechanical Ventilator 45 10/05/17 20:00 99.0 94 36 130/59 97 Mechanical Ventilator 45 99.0 10/05/17 20:00 94 10/05/17 19:30 91 20 45 10/05/17 19:00 95 28 114/57 96 Mechanical Ventilator 45 Intake and Output 10/05/17 10/06/17 19:00 07:00 Intake Total 870 ml 330 ml Output Total 350 ml 530 ml Balance 520 ml -200 ml Intake Free Water 50 ml 80 ml IV Total 220 ml Tube Feeding 600 ml 250 ml Output Urine Total 350 ml 530 ml # Bowel Movements 3 5 Laboratory Tests 10/06/17 04:00: Arterial Blood pH 7.440, Arterial Blood Partial Pressure CO2 31.7L, Arterial Blood Partial Pressure O2 73.8L, Arterial Blood HCO3 21.0L, Arterial Blood Oxygen Saturation 94.2, Arterial Blood Base Excess -2.5, Luis A Test Positive 10/06/17 05:00: White Blood Count 8.6, Red Blood Count 2.86L, Hemoglobin 9.3L, Hematocrit 29.1L , Mean Corpuscular Volume 102H, Mean Corpuscular Hemoglobin 32.5H, Mean Corpuscular Hemoglobin Concent 32.0, Red Cell Distribution Width 18.7H, Platelet Count 123L, Mean Platelet Volume 10.1, Neutrophils (%) (Auto) 79.7H, Lymphocytes (%) (Auto) 6.0L, Monocytes (%) (Auto) 9.2, Eosinophils (%) (Auto) 3.7H, Basophils (%) (Auto) 1.4, Prothrombin Time 14.8H, Prothromb Time International Ratio 1.4H, Sodium Level 149H, Potassium Level 3.7, Chloride Level 116H, Carbon Dioxide Level 27, Anion Gap 6, Blood Urea Nitrogen 26H, Creatinine 0.6, Estimat Glomerular Filtration Rate , Glucose Level 81, Calcium Level 7.6L, Total Bilirubin 9.0H, Direct Bilirubin 7.6H, Aspartate Amino Transf (AST/SGOT) 58H, Alanine Aminotransferase (ALT/SGPT) 28, Alkaline Phosphatase 1207H, Total Protein 5.6L, Albumin 1.4L, Globulin 4.2, Albumin/Globulin Ratio 0.3L Height (Feet): 5 Height (Inches): 0.00 Weight (Pounds): 108 General Appearance: no apparent distress, alert, confused Dary Nixon M.D. Oct 06, 2017 18:39
--- NOTE | 2017-10-06 18:44 | Psych Consult Progress Note ---
Psych Consult Progress Note Consult 10/04/17 encephalopathy agitation Vital Signs Last 24 Hour Vital Signs Date Time Temp Pulse Resp B/P (MAP) Pulse Ox O2 Delivery O2 Flow Rate FiO2 10/06/17 18:00 92 21 120/53 96 Mechanical Ventilator 45 10/06/17 17:12 96 19 45 10/06/17 17:00 92 18 117/53 95 Mechanical Ventilator 45 10/06/17 16:00 98.6 105 21 127/58 95 Mechanical Ventilator 45 98.6 10/06/17 16:00 96 10/06/17 16:00 45 10/06/17 15:14 99 18 45 10/06/17 15:00 99 21 127/58 95 Mechanical Ventilator 45 10/06/17 15:00 95 119/55 10/06/17 14:00 93 22 109/51 97 Mechanical Ventilator 45 10/06/17 13:08 113 22 45 10/06/17 13:00 111 21 152/72 97 Mechanical Ventilator 45 10/06/17 12:00 98.9 95 22 116/54 97 Mechanical Ventilator 45 98.9 10/06/17 12:00 99 10/06/17 12:00 45 10/06/17 11:00 98 21 129/57 95 Mechanical Ventilator 45 10/06/17 10:53 105 20 45 10/06/17 10:00 100 28 119/55 95 Mechanical Ventilator 45 10/06/17 09:12 101 20 45 10/06/17 09:00 107 22 132/54 94 Mechanical Ventilator 45 10/06/17 08:00 98.6 102 27 134/65 96 Mechanical Ventilator 45 98.6 10/06/17 08:00 102 10/06/17 08:00 45 10/06/17 07:32 84 18 45 10/06/17 07:00 88 33 95/56 98 Mechanical Ventilator 45 10/06/17 06:00 85 33 99/45 98 Mechanical Ventilator 45 10/06/17 05:41 90 128/61 10/06/17 05:30 92 19 45 10/06/17 05:00 90 33 102/45 98 Mechanical Ventilator 45 10/06/17 04:00 99.1 93 33 126/51 98 Mechanical Ventilator 45 99.1 10/06/17 04:00 95 10/06/17 04:00 45 10/06/17 03:30 97 21 45 10/06/17 03:00 98 33 120/63 98 Mechanical Ventilator 45 10/06/17 02:00 100 33 135/63 98 Mechanical Ventilator 45 10/06/17 01:46 45 10/06/17 01:30 74 18 45 10/06/17 01:00 91 33 120/58 97 Mechanical Ventilator 45 10/06/17 00:00 98.8 91 34 126/58 97 Mechanical Ventilator 45 98.8 10/06/17 00:00 91 10/05/17 23:00 90 34 127/57 97 Mechanical Ventilator 45 10/05/17 22:52 97 19 45 10/05/17 22:12 94 128/65 10/05/17 22:00 96 33 126/55 96 Mechanical Ventilator 45 10/05/17 21:30 94 18 45 10/05/17 21:00 97 37 128/65 97 Mechanical Ventilator 45 10/05/17 20:00 99.0 94 36 130/59 97 Mechanical Ventilator 45 99.0 10/05/17 20:00 94 10/05/17 19:30 91 20 45 10/05/17 19:00 95 28 114/57 96 Mechanical Ventilator 45 Labs Laboratory Tests Test 10/06/17 04:00 10/06/17 05:00 Arterial Blood pH 7.440 (7.350-7.450) Arterial Blood Partial Pressure CO2 31.7 mmHg (35.0-45.0) L Arterial Blood Partial Pressure O2 73.8 mmHg (75.0-100.0) L Arterial Blood HCO3 21.0 mmol/L (22.0-26.0) L Arterial Blood Oxygen Saturation 94.2 % (92.0-98.0) Arterial Blood Base Excess -2.5 Luis A Test Positive White Blood Count 8.6 K/UL (4.8-10.8) Red Blood Count 2.86 M/UL (4.20-5.40) L Hemoglobin 9.3 G/DL (12.0-16.0) L Hematocrit 29.1 % (37.0-47.0) L Mean Corpuscular Volume 102 FL (80-99) H Mean Corpuscular Hemoglobin 32.5 PG (27.0-31.0) H Mean Corpuscular Hemoglobin Concent 32.0 G/DL (32.0-36.0) Red Cell Distribution Width 18.7 % (11.6-14.8) H Platelet Count 123 K/UL (150-450) L Mean Platelet Volume 10.1 FL (6.5-10.1) Neutrophils (%) (Auto) 79.7 % (45.0-75.0) H Lymphocytes (%) (Auto) 6.0 % (20.0-45.0) L Monocytes (%) (Auto) 9.2 % (1.0-10.0) Eosinophils (%) (Auto) 3.7 % (0.0-3.0) H Basophils (%) (Auto) 1.4 % (0.0-2.0) Prothrombin Time 14.8 SEC (9.30-11.50) H Prothromb Time International Ratio 1.4 (0.9-1.1) H Sodium Level 149 MMOL/L (136-145) H Potassium Level 3.7 MMOL/L (3.5-5.1) Chloride Level 116 MMOL/L (98-107) H Carbon Dioxide Level 27 MMOL/L (21-32) Anion Gap 6 mmol/L (5-15) Blood Urea Nitrogen 26 mg/dL (7-18) H Creatinine 0.6 MG/DL (0.55-1.30) Estimat Glomerular Filtration Rate mL/min (>60) Glucose Level 81 MG/DL (74-106) Calcium Level 7.6 MG/DL (8.5-10.1) L Total Bilirubin 9.0 MG/DL (0.2-1.0) H Direct Bilirubin 7.6 MG/DL (0.0-0.3) H Aspartate Amino Transf (AST/SGOT) 58 U/L (15-37) H Alanine Aminotransferase (ALT/SGPT) 28 U/L (12-78) Alkaline Phosphatase 1207 U/L (46-116) H Total Protein 5.6 G/DL (6.4-8.2) L Albumin 1.4 G/DL (3.4-5.0) L Globulin 4.2 g/dL Albumin/Globulin Ratio 0.3 (1.0-2.7) L Medications Current Medications Medications (Trade) Dose Ordered Sig/Hermes Route PRN Reason Start Time Stop Time Status Last Admin Dose Admin Acetaminophen (Tylenol) 650 mg EVERY 6 HOURS PRN NG Fever/Headache/Mild Pain 09/13/17 20:45 10/13/17 20:44 10/03/17 12:25 Albuterol/ Ipratropium (Albuterol/ Ipratropium) 3 ml Q4H PRN HHN SHORTNESS OF BREATH 10/04/17 10:00 10/09/17 09:59 Clonidine HCl (Catapres Tab) 0.1 mg Q4H PRN ORAL SBP>160 UNRELIEVED BY HYDRALAZ 09/16/17 16:45 10/15/17 16:59 Dextrose (Dextrose 50%) STAT PRN IV Hypoglycemia 09/13/17 15:00 10/13/17 14:59 Diltiazem HCl (Cardizem) 30 mg EVERY 8 HOURS NG 10/04/17 14:00 11/03/17 13:59 10/06/17 15:00 Ertapenem 1 gm/ Sodium Chloride 110 ml @ 220 mls/hr Q24H IVPB 10/04/17 12:00 10/09/17 11:59 10/06/17 11:51 Insulin Aspart (NovoLOG) EVERY 6 HOURS SUBQ 09/17/17 12:00 10/17/17 11:59 10/06/17 00:08 Ketotifen Fumarate (Zatidor) 1 drop DAILY BOTH EYES 09/26/17 09:00 10/25/17 08:59 10/06/17 09:00 Micafungin Sodium 100 mg/Dextrose 110 ml @ 110 mls/hr Q24H IVPB 10/07/17 13:00 10/14/17 12:59 Micafungin Sodium 100 mg/Sodium Chloride 110 ml @ 110 mls/hr Q24H IVPB 09/30/17 13:00 10/07/17 00:00 10/06/17 12:42 Pantoprazole (Protonix) 40 mg DAILY IVP 10/02/17 09:00 11/01/17 08:59 10/06/17 10:01 Polyethylene Glycol (Miralax) 17 gm BEDTIME ORAL 09/14/17 21:00 10/14/17 20:59 10/03/17 21:49 Problems: (1) Arthritis, rheumatoid (2) Aspiration pneumonia (3) Diabetes mellitus (4) ARDS (adult respiratory distress syndrome) (5) Transaminitis Status: Acute (6) Dyspnea (7) Parkinsons disease (8) Sepsis (9) GERD (gastroesophageal reflux disease) (10) Aplastic anemia (11) Pneumonia (12) HTN (hypertension) Dary Nixon M.D. Oct 06, 2017 18:44
[2017-10-06] MEDS: Miralax 17gm pkt ORAL SCH (21:22)
[2017-10-06] MEDS: D5 1/2NS w/KCL 10meq 1,000 ML IV SCH (21:23)
--- NOTE | 2017-10-06 22:46 | General Progress Note ---
Assessment/Plan Assessment/Plan Assessment - Resp failure / ARDS / PNA - Abnormal LFT, Biliary obstruction, possible cholangitis, CBD sludge - bili higher - Family now accepting repeat ERCP - Anemia with OB (+) stools - thrombocytopenia - Malnutrition - hypernatremia - improving - AMS - improved Recommendations - replace lytes - transfuse PRN - Elevate HOB - Vent care - Monitor labs - abx - ERCP in am Subjective Allergies: Coded Allergies: No Known Allergies (Verified , 11/18/08) Subjective Above noted more sedate today but does not follow commands unable to schedule ERCP today - planned for Friday Objective Last 24 Hour Vital Signs Date Time Temp Pulse Resp B/P (MAP) Pulse Ox O2 Delivery O2 Flow Rate FiO2 10/06/17 22:11 95 112/47 10/06/17 20:59 101 19 45 10/06/17 19:10 103 19 45 10/06/17 19:00 105 28 127/61 96 Mechanical Ventilator 45 10/06/17 18:00 92 21 120/53 96 Mechanical Ventilator 45 10/06/17 17:12 96 19 45 10/06/17 17:00 92 18 117/53 95 Mechanical Ventilator 45 10/06/17 16:00 98.6 105 21 127/58 95 Mechanical Ventilator 45 98.6 10/06/17 16:00 96 10/06/17 16:00 45 10/06/17 15:14 99 18 45 10/06/17 15:00 99 21 127/58 95 Mechanical Ventilator 45 10/06/17 15:00 95 119/55 10/06/17 14:00 93 22 109/51 97 Mechanical Ventilator 45 10/06/17 13:08 113 22 45 10/06/17 13:00 111 21 152/72 97 Mechanical Ventilator 45 10/06/17 12:00 98.9 95 22 116/54 97 Mechanical Ventilator 45 98.9 10/06/17 12:00 99 10/06/17 12:00 45 10/06/17 11:00 98 21 129/57 95 Mechanical Ventilator 45 10/06/17 10:53 105 20 45 10/06/17 10:00 100 28 119/55 95 Mechanical Ventilator 45 10/06/17 09:12 101 20 45 10/06/17 09:00 107 22 132/54 94 Mechanical Ventilator 45 10/06/17 08:00 98.6 102 27 134/65 96 Mechanical Ventilator 45 98.6 10/06/17 08:00 102 10/06/17 08:00 45 10/06/17 07:32 84 18 45 10/06/17 07:00 88 33 95/56 98 Mechanical Ventilator 45 10/06/17 06:00 85 33 99/45 98 Mechanical Ventilator 45 10/06/17 05:41 90 128/61 10/06/17 05:30 92 19 45 10/06/17 05:00 90 33 102/45 98 Mechanical Ventilator 45 10/06/17 04:00 99.1 93 33 126/51 98 Mechanical Ventilator 45 99.1 10/06/17 04:00 95 10/06/17 04:00 45 10/06/17 03:30 97 21 45 10/06/17 03:00 98 33 120/63 98 Mechanical Ventilator 45 10/06/17 02:00 100 33 135/63 98 Mechanical Ventilator 45 10/06/17 01:46 45 10/06/17 01:30 74 18 45 10/06/17 01:00 91 33 120/58 97 Mechanical Ventilator 45 10/06/17 00:00 98.8 91 34 126/58 97 Mechanical Ventilator 45 98.8 10/06/17 00:00 91 10/05/17 23:00 90 34 127/57 97 Mechanical Ventilator 45 10/05/17 22:52 97 19 45 Intake and Output 10/05/17 10/06/17 19:00 07:00 Intake Total 870 ml 330 ml Output Total 350 ml 530 ml Balance 520 ml -200 ml Intake Free Water 50 ml 80 ml IV Total 220 ml Tube Feeding 600 ml 250 ml Output Urine Total 350 ml 530 ml # Bowel Movements 3 5 Laboratory Tests 10/06/17 04:00: Arterial Blood pH 7.440, Arterial Blood Partial Pressure CO2 31.7L, Arterial Blood Partial Pressure O2 73.8L, Arterial Blood HCO3 21.0L, Arterial Blood Oxygen Saturation 94.2, Arterial Blood Base Excess -2.5, Luis A Test Positive 10/06/17 05:00: White Blood Count 8.6, Red Blood Count 2.86L, Hemoglobin 9.3L, Hematocrit 29.1L , Mean Corpuscular Volume 102H, Mean Corpuscular Hemoglobin 32.5H, Mean Corpuscular Hemoglobin Concent 32.0, Red Cell Distribution Width 18.7H, Platelet Count 123L, Mean Platelet Volume 10.1, Neutrophils (%) (Auto) 79.7H, Lymphocytes (%) (Auto) 6.0L, Monocytes (%) (Auto) 9.2, Eosinophils (%) (Auto) 3.7H, Basophils (%) (Auto) 1.4, Prothrombin Time 14.8H, Prothromb Time International Ratio 1.4H, Sodium Level 149H, Potassium Level 3.7, Chloride Level 116H, Carbon Dioxide Level 27, Anion Gap 6, Blood Urea Nitrogen 26H, Creatinine 0.6, Estimat Glomerular Filtration Rate , Glucose Level 81, Calcium Level 7.6L, Total Bilirubin 9.0H, Direct Bilirubin 7.6H, Aspartate Amino Transf (AST/SGOT) 58H, Alanine Aminotransferase (ALT/SGPT) 28, Alkaline Phosphatase 1207H, Total Protein 5.6L, Albumin 1.4L, Globulin 4.2, Albumin/Globulin Ratio 0.3L 10/06/17 05:30: Erythrocyte Sedimentation Rate 118H, C-Reactive Protein, Quantitative 10.5H, Rheumatoid Factor Screen [Pending], Cyclic Citrullinated Peptide IgG Ab [Pending ], Anti-Nuclear Antibody Screen [Pending], c-ANCA Titer [Pending], p-ANCA Titer [Pending] Height (Feet): 5 Height (Inches): 0.00 Weight (Pounds): 108 Objective WDWN NCAT , (+) ETT supple CTA RRR abd soft (+) edema non verbal ARNULFO DURON Oct 06, 2017 22:46
--- NOTE | 2017-10-06 23:39 | General Progress Note ---
Assessment/Plan Assessment/Plan #. Anemia due to underlying chronic disease. Continue to closely monitor. --> Hemoglobin goal is above 7. --> Transfuse as necessary --> Anemia workup has been reviewed at this point. --> Hemoglobin levels stable and anemia mild at this time --> Blood transfusion not required unless symptomatic or hgb below goal. #. Leukocytosis likely related to underlying pneumonia infection. --> Resolved on antibiotic treatment. #. Thrombocytopenia, severe and progressive, acute onset, likely secondary to underlying infection, aspiration pneumonia versus HIT. --> Antibody test reviewed. Heparin has been discontinued on 09/18/2017. --> Duplex of the lower extremities is negative, therefore less likely HIT and other causes are more likely such as underlying infection. --> Platelets goal >20k, transfuse if necessary. --> Has Remained low past few days. On antibiotic treatment. --> Improved slightly today. #. Community-acquired pneumonia versus hospital-acquired. --> The patient on broad-spectrum antibiotics. --> Improved. --> Urine culture growing E. coli. Continue to closely monitor. #. Transaminitis. She has been seen by GI Service. Continue to closely monitor. #. Low-grade fever. Closely observe. #. Encephalopathy. Subjective Date patient seen: Oct 06, 2017 Constitutional: Denies: no symptoms, chills, diaphoresis, fever, malaise, weakness, other HEENT: Denies: no symptoms, eye pain, blurred vision, tearing, double vision, ear pain, ear discharge, nose pain, nose congestion, throat pain, throat swelling, mouth pain, mouth swelling, other Cardiovascular: Denies: no symptoms, chest pain, edema, irregular heart rate, lightheadedness, palpitations, syncope, other Respiratory: Denies: no symptoms, cough, orthopnea, shortness of breath, SOB with excertion, SOB at rest, sputum, stridor, wheezing, other Gastrointestinal/Abdominal: Denies: no symptoms, abdomen distended, abdominal pain, black stools, tarry stools, blood in stool, constipated, diarrhea, difficulty swallowing, nausea, poor appetite, poor fluid intake, rectal bleeding , vomiting, other Genitourinary: Denies: no symptoms, burning, discharge, frequency, flank pain, hematuria, incontinence, pain, urgency, other 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: Denies: no symptoms, anxiety, depressed, emotional problems, headache, numbness, paresthesia, pre-existing deficit, seizure, tingling, tremors, weakness, other Hematologic/Lymphatic: Reports: anemia Allergies: Coded Allergies: No Known Allergies (Verified , 11/18/08) Subjective Nonverbal. Tachycardic. No active bleeding. Objective Last 24 Hour Vital Signs Date Time Temp Pulse Resp B/P (MAP) Pulse Ox O2 Delivery O2 Flow Rate FiO2 10/06/17 23:16 95 20 45 10/06/17 22:11 95 112/47 10/06/17 20:59 101 19 45 10/06/17 19:10 103 19 45 10/06/17 19:00 105 28 127/61 96 Mechanical Ventilator 45 10/06/17 18:00 92 21 120/53 96 Mechanical Ventilator 45 10/06/17 17:12 96 19 45 10/06/17 17:00 92 18 117/53 95 Mechanical Ventilator 45 10/06/17 16:00 98.6 105 21 127/58 95 Mechanical Ventilator 45 98.6 10/06/17 16:00 96 10/06/17 16:00 45 10/06/17 15:14 99 18 45 10/06/17 15:00 99 21 127/58 95 Mechanical Ventilator 45 10/06/17 15:00 95 119/55 10/06/17 14:00 93 22 109/51 97 Mechanical Ventilator 45 10/06/17 13:08 113 22 45 10/06/17 13:00 111 21 152/72 97 Mechanical Ventilator 45 10/06/17 12:00 98.9 95 22 116/54 97 Mechanical Ventilator 45 98.9 10/06/17 12:00 99 10/06/17 12:00 45 10/06/17 11:00 98 21 129/57 95 Mechanical Ventilator 45 10/06/17 10:53 105 20 45 10/06/17 10:00 100 28 119/55 95 Mechanical Ventilator 45 10/06/17 09:12 101 20 45 10/06/17 09:00 107 22 132/54 94 Mechanical Ventilator 45 10/06/17 08:00 98.6 102 27 134/65 96 Mechanical Ventilator 45 98.6 10/06/17 08:00 102 10/06/17 08:00 45 10/06/17 07:32 84 18 45 10/06/17 07:00 88 33 95/56 98 Mechanical Ventilator 45 10/06/17 06:00 85 33 99/45 98 Mechanical Ventilator 45 10/06/17 05:41 90 128/61 10/06/17 05:30 92 19 45 10/06/17 05:00 90 33 102/45 98 Mechanical Ventilator 45 10/06/17 04:00 99.1 93 33 126/51 98 Mechanical Ventilator 45 99.1 10/06/17 04:00 95 10/06/17 04:00 45 10/06/17 03:30 97 21 45 10/06/17 03:00 98 33 120/63 98 Mechanical Ventilator 45 10/06/17 02:00 100 33 135/63 98 Mechanical Ventilator 45 10/06/17 01:46 45 10/06/17 01:30 74 18 45 10/06/17 01:00 91 33 120/58 97 Mechanical Ventilator 45 10/06/17 00:00 98.8 91 34 126/58 97 Mechanical Ventilator 45 98.8 10/06/17 00:00 91 Intake and Output 10/05/17 10/06/17 19:00 07:00 Intake Total 870 ml 330 ml Output Total 350 ml 530 ml Balance 520 ml -200 ml Intake Free Water 50 ml 80 ml IV Total 220 ml Tube Feeding 600 ml 250 ml Output Urine Total 350 ml 530 ml # Bowel Movements 3 5 Laboratory Tests 10/06/17 04:00: Arterial Blood pH 7.440, Arterial Blood Partial Pressure CO2 31.7L, Arterial Blood Partial Pressure O2 73.8L, Arterial Blood HCO3 21.0L, Arterial Blood Oxygen Saturation 94.2, Arterial Blood Base Excess -2.5, Luis A Test Positive 10/06/17 05:00: White Blood Count 8.6, Red Blood Count 2.86L, Hemoglobin 9.3L, Hematocrit 29.1L , Mean Corpuscular Volume 102H, Mean Corpuscular Hemoglobin 32.5H, Mean Corpuscular Hemoglobin Concent 32.0, Red Cell Distribution Width 18.7H, Platelet Count 123L, Mean Platelet Volume 10.1, Neutrophils (%) (Auto) 79.7H, Lymphocytes (%) (Auto) 6.0L, Monocytes (%) (Auto) 9.2, Eosinophils (%) (Auto) 3.7H, Basophils (%) (Auto) 1.4, Prothrombin Time 14.8H, Prothromb Time International Ratio 1.4H, Sodium Level 149H, Potassium Level 3.7, Chloride Level 116H, Carbon Dioxide Level 27, Anion Gap 6, Blood Urea Nitrogen 26H, Creatinine 0.6, Estimat Glomerular Filtration Rate , Glucose Level 81, Calcium Level 7.6L, Total Bilirubin 9.0H, Direct Bilirubin 7.6H, Aspartate Amino Transf (AST/SGOT) 58H, Alanine Aminotransferase (ALT/SGPT) 28, Alkaline Phosphatase 1207H, Total Protein 5.6L, Albumin 1.4L, Globulin 4.2, Albumin/Globulin Ratio 0.3L 10/06/17 05:30: Erythrocyte Sedimentation Rate 118H, C-Reactive Protein, Quantitative 10.5H, Rheumatoid Factor Screen [Pending], Cyclic Citrullinated Peptide IgG Ab [Pending ], Anti-Nuclear Antibody Screen [Pending], c-ANCA Titer [Pending], p-ANCA Titer [Pending] Height (Feet): 5 Height (Inches): 0.00 Weight (Pounds): 108 General Appearance: no apparent distress Respiratory/Chest: decreased breath sounds Abdomen: soft Johnny Sinha MD Oct 06, 2017 23:39
[2017-10-07] VITALS (24 sets, daily range): BP systolic 108–135; BP diastolic 44–69
[2017-10-07] MEDS: D5 1/2NS w/KCL 10meq 1,000 ML IV SCH ×3 (05:36→21:10)
[2017-10-07] MEDS: dilTIAZem HCl 30mg tab NG SCH ×3 (05:37→22:13)
[2017-10-07] MEDS: NovoLOG Insulin Flexpen SUBQ SCH ×3 (05:38→17:13)
[2017-10-07 05:47] LABS: BASOPHILS % (AUTO) 1.5 % (0.0-2.0); EOSINOPHILS % (AUTO) 3.4 % (0.0-3.0); HEMATOCRIT 27.7 % (37.0-47.0); HEMOGLOBIN 8.7 G/DL (12.0-16.0); LYMPHOCYTES % (AUTO) 7.8 % (20.0-45.0); MEAN CORPUSCULAR VOLUME 102 FL (80-99); MONOCYTES % (AUTO) 9.6 % (1.0-10.0); NEUTROPHILS % (AUTO) 77.8 % (45.0-75.0); PLATELET COUNT 144 K/UL (150-450); RED BLOOD COUNT 2.72 M/UL (4.20-5.40); RED CELL DISTRIBUTION WIDTH 18.3 % (11.6-14.8); WHITE BLOOD COUNT 6.3 K/UL (4.8-10.8)
[2017-10-07 05:55] LABS: ANION GAP 5 mmol/L (5-15); BLOOD UREA NITROGEN 28 mg/dL (7-18); CALCIUM 7.7 MG/DL (8.5-10.1); CARBON DIOXIDE 28 MMOL/L (21-32); CHLORIDE 114 MMOL/L (98-107); CREATININE 0.7 MG/DL (0.55-1.30); POTASSIUM 3.7 MMOL/L (3.5-5.1); SODIUM 147 MMOL/L (136-145)
[2017-10-07] MEDS ORDERED: fentaNYL 100 mcg/2 mL IV PRN (06:30)
[2017-10-07] MEDS ORDERED: Atropine Inj 1mg/10ml Syr IV PRN (06:30)
[2017-10-07] MEDS ORDERED: DiphenhydrAMINE 50mg/ml Inj IVP PRN (06:30)
--- NOTE | 2017-10-07 06:34 | Anethesia Preoperative Eval ---
Anesthesia Pre-op PMH/ROS General Date of Evaluation: Oct 07, 2017 Time of Evaluation: 06:30 Anesthesiologist: shoaib ASA Score: ASA 4 Mallampati Score Class I : Soft palate, uvula, fauces, pillars visible Class II: Soft palate, uvula, fauces visible Class III: Soft palate, base of uvula visible Class IV: Only hard plate visible Mallampati Classification: Class III Surgeon: marilyn Diagnosis: biliary obstruction Surgical Procedure: ercp Anesthesia History: none Social History: smoking - nonsmoker Family History: no anesthesia problems Allergies: Coded Allergies: No Known Allergies (Verified , 11/18/08) Medications: see eMAR Past Medical History Cardiovascular: Reports: HTN Pulmonary: Reports: other - pulmonary edema, respiratory failure, bipap use, ards Gastrointestinal/Genitourinary: Reports: GERD, other - uti, elevated lft's Endocrine: Reports: DM Musculoskeletal/Integumentary: Reports: OA Anesthesia Pre-op Phys. Exam Physician Exam Last Vital Signs Date Time Temp Pulse Resp B/P (MAP) Pulse Ox O2 Delivery O2 Flow Rate FiO2 10/07/17 05:16 83 19 40 10/07/17 05:00 117/57 96 Mechanical Ventilator 10/07/17 04:00 98.1 98.1 10/04/17 04:00 Constitutional: NAD Neurologic: other - obtunded Cardiovascular: other Respiratory: other - ventilator dependent, respiratory failure, rapid respiratory rate greater than 25 Airway Exam Mallampati Score: Class III - intubated MO: limited - oett Neck: short TMD: intubated ROM: limited Teeth: missing Anesthesia Pre-op A/P Labs Hematology Test 10/07/17 05:05 White Blood Count 6.3 K/UL (4.8-10.8) Red Blood Count 2.72 M/UL (4.20-5.40) L Hemoglobin 8.7 G/DL (12.0-16.0) L Hematocrit 27.7 % (37.0-47.0) L Mean Corpuscular Volume 102 FL (80-99) H Mean Corpuscular Hemoglobin 32.1 PG (27.0-31.0) H Mean Corpuscular Hemoglobin Concent 31.5 G/DL (32.0-36.0) L Red Cell Distribution Width 18.3 % (11.6-14.8) H Platelet Count 144 K/UL (150-450) L Mean Platelet Volume 9.3 FL (6.5-10.1) Neutrophils (%) (Auto) 77.8 % (45.0-75.0) H Lymphocytes (%) (Auto) 7.8 % (20.0-45.0) L Monocytes (%) (Auto) 9.6 % (1.0-10.0) Eosinophils (%) (Auto) 3.4 % (0.0-3.0) H Basophils (%) (Auto) 1.5 % (0.0-2.0) Chemistry Test 10/07/17 05:05 Sodium Level 147 MMOL/L (136-145) H Potassium Level 3.7 MMOL/L (3.5-5.1) Chloride Level 114 MMOL/L (98-107) H Carbon Dioxide Level 28 MMOL/L (21-32) Anion Gap 5 mmol/L (5-15) Blood Urea Nitrogen 28 mg/dL (7-18) H Creatinine 0.7 MG/DL (0.55-1.30) Estimat Glomerular Filtration Rate mL/min (>60) Glucose Level 122 MG/DL (74-106) H Calcium Level 7.7 MG/DL (8.5-10.1) L Risk Assessment & Plan Assessment: asa4 Plan: optimize respiratory status prior to procedure. mac Status Change Before Surgery: No Pre-Antibiotics Drug: CRISTIAN Garza Oct 07, 2017 06:34
[2017-10-07] MEDS ORDERED: Iothalamate Meglumine 60% 30ML INJ ONE (06:46)
--- NOTE | 2017-10-07 07:00 | Pre-Procedure Note/Attestation ---
Pre-Procedure Note/Attestation Complete Prior to Procedure Planned Procedure: not applicable Procedure Narrative: ercp Indications for Procedure Pre-Operative Diagnosis: elevated lfts CBD sludge Attestation I attest that I discussed the nature of the procedure; its benefits; risks and complications; and alternatives (and the risks and benefits of such alternatives ), prior to the procedure, with the patient (or the patient's legal rental sales representative). I attest that, if there was a reasonable possibility of needing a blood transfusion, the patient (or the patient's legal rental sales representative) was given the [facility] standardized written summary, pursuant to the Tristan Linette Blood Safety Act ([place] Health and Safety Code # 1645, as amended). I attest that I re-evaluated the patient just prior to the surgery and that there has been no change in the patient's H&P, except as documented below: KIT GONZALEZ Oct 07, 2017 07:00
[2017-10-07] MEDS: Ketotifen Fumarate 0.035% 5ml BOTH EYES SCH (08:45)
[2017-10-07] MEDS: Pantoprazole Inj IVP SCH (08:45)
--- NOTE | 2017-10-07 11:01 | Infectious Diseases Prog Note ---
Assessment/Plan Assessment/Plan The patient is a 76-year-old female w Fever, low grade, intermittent; resolved- ? persistent cholangitis as increased LFTs again -u.a no pyuria, ucx NTD -CXR 10/04 : Interstitial and airspace opacities are again present -Bcx 10/03 NTD Leukocytosis , resolved- likely cholangitis -Cdiff neg -09/22 sp cx C.a lbicans, Bcx Neg -u/a wbc 10-15, nit neg, leuk +2; ucx >100k C. albicans -Fungal sp cx p Community-acquired vs healthcare-associated pneumonia, s/p RX (the patient has been recently hospitalized in [facility]). -now ARDS- r/o fungal PNA -CXR 09/29: - cxray 09/26 : no changes -CT chest 09/23: Diffuse extensive pulmonary parenchymal disease, with dense consolidation interspersed with groundglass opacities. Appearance nonspecific, possibilities include pulmonary edema, pneumonia, ARDS, hemorrhage. Bilateral pleural effusions, left greater than right. Diffuse edema of the subcutaneous fat, Multiple small thyroid nodules. All apparently under 1 cm, no further follow-up necessary. Degenerative changes of the shoulders 09/19 xray : Unchanged diffuse interstitial and airspace edema, -CrAg serum, U legionell ag neg; Asp ag, Cocci, fungitell p Probable influenza despite of negative influenza screening test, s/p Rx Abnormal liver function tests, ALP>>> AST -2ry to sludged CBD ,cholangitis, obstruction on CBD; AST/ALT normal now, ALP improved but now worsening again -s/p ERCP with stent placement 10/01 -EUS 09/30: 1. Dilated common bile duct with lots of sludge in the distal common bile duct, most probably explanation for abnormal liver function tests. 2. Large ascites -Abd US 09/29: Cholelithiasis, better demonstrated than on prior exam. Thickened gallbladder wall could indicate acute cholecystitis. However, gallbladder wall thickening also evident on prior study of 09/19/2017, after which a hepatobiliary scan was negative, so suspect this is more likely due to hemodynamic derangements given presence of ascites and pleural fluid. Extrahepatic biliary ductal dilatation, equivocally slightly increased from 2017. Downstream obstruction not excludable. Coarsened hepatic echotexture, consistent with hepatocellular disease, nonspecific as regards etiology. Equivocal hepatic surface micronodularity, could indicate early cirrhotic changes. -HIDA scan: Negative for evidence of cystic duct obstruction/acute cholecystitis. Common bile duct is demonstrated be patent, but emptying into the duodenum is delayed, not seen until 2 hours. Significance of this is uncertain. MRCP or CT scanning may be useful to clarify -CT abd/p 09/23: Evidence of anasarca, with diffuse edema subcutaneous and mesenteric fat, bilateral pleural effusions, possible pulmonary edema, trace ascites. Densities within the gallbladder, probably reflecting tiny gallstones, although these are not identifiable on recent ultrasound. Gallbladder wall edema is probably a manifestation of anasarca, as recent hepatobiliary scan was negative for acute cholecystitis. Old ununited fracture deformities of the right pelvis. Bilateral chronic appearing hip dislocations Ultrasound of the abdomen : Gallbladder sludge. No definite stones. 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 -R/o HIT. Abx and protonix could be also be contributors. VDRF / ARDS HTN GERD History of auditory hallucination. Depression. Anemia. Rheumatoid arthritis. History of gastritis. PLAN: -Continue Micafungin #8/10 for cholangitis and Ertapenem #4/5-7 given low grade fevers and rise in LFts, concern for persistent cholangitis. 10/02 SP Amikacin #10 09/30 SP Flagyl #8 09/25 sp Fluconazole #3 (held due to rise ALP) 09/23 SP Meropenem #5, PO Vanco #2 09/21 SP tamiflu #10 -f/u Repeat cultures -f/u Asp ag, fungitell, Cocci ab, fungal sp cx -For ECRP today Monitor CBC.; Trend WBC Monitor BMP.; Trend LFTs Monitor chest x-ray -GI, heme onc f/u Subjective Allergies: Coded Allergies: No Known Allergies (Verified , 11/18/08) Subjective afebrile no leukocytosis for ERCP today Objective Vital Signs Last 24 Hour Vital Signs Date Time Temp Pulse Resp B/P (MAP) Pulse Ox O2 Delivery O2 Flow Rate FiO2 10/07/17 10:00 91 20 131/58 94 Mechanical Ventilator 45 10/07/17 09:00 81 25 112/53 95 Mechanical Ventilator 45 10/07/17 08:58 77 18 40 10/07/17 08:00 78 24 112/52 96 Mechanical Ventilator 45 10/07/17 08:00 45 10/07/17 08:00 98.5 98.5 10/07/17 07:26 83 10/07/17 07:00 86 20 127/57 100 Mechanical Ventilator 45 10/07/17 06:58 88 18 40 10/07/17 06:00 82 35 115/55 96 Mechanical Ventilator 45 10/07/17 05:16 83 19 40 10/07/17 05:00 83 33 117/57 96 Mechanical Ventilator 45 10/07/17 04:00 45 10/07/17 04:00 98.1 90 25 127/56 95 Mechanical Ventilator 45 98.1 10/07/17 03:17 87 10/07/17 03:17 90 18 40 10/07/17 03:00 87 21 113/48 97 Mechanical Ventilator 45 10/07/17 02:00 84 21 111/44 96 Mechanical Ventilator 45 10/07/17 01:10 93 19 40 10/07/17 01:00 95 29 124/55 98 Mechanical Ventilator 45 10/07/17 00:23 94 10/07/17 00:00 99.1 85 30 108/47 97 Mechanical Ventilator 45 99.1 10/07/17 00:00 45 10/06/17 23:16 95 20 45 10/06/17 23:00 95 20 123/50 97 Mechanical Ventilator 45 10/06/17 22:11 95 112/47 10/06/17 22:00 93 19 112/47 98 Mechanical Ventilator 45 10/06/17 21:00 100 24 121/61 99 Mechanical Ventilator 45 10/06/17 20:59 101 19 45 10/06/17 20:00 98.5 96 21 113/53 97 Mechanical Ventilator 45 98.5 10/06/17 20:00 45 10/06/17 19:10 103 19 45 10/06/17 19:07 105 10/06/17 19:00 105 28 127/61 96 Mechanical Ventilator 45 10/06/17 18:00 92 21 120/53 96 Mechanical Ventilator 45 10/06/17 17:12 96 19 45 10/06/17 17:00 92 18 117/53 95 Mechanical Ventilator 45 10/06/17 16:00 98.6 105 21 127/58 95 Mechanical Ventilator 45 98.6 10/06/17 16:00 96 10/06/17 16:00 45 10/06/17 15:14 99 18 45 10/06/17 15:00 99 21 127/58 95 Mechanical Ventilator 45 10/06/17 15:00 95 119/55 10/06/17 14:00 93 22 109/51 97 Mechanical Ventilator 45 10/06/17 13:08 113 22 45 10/06/17 13:00 111 21 152/72 97 Mechanical Ventilator 45 10/06/17 12:00 98.9 95 22 116/54 97 Mechanical Ventilator 45 98.9 10/06/17 12:00 99 10/06/17 12:00 45 10/06/17 11:00 98 21 129/57 95 Mechanical Ventilator 45 Height (Feet): 5 Height (Inches): 5.00 Weight (Pounds): 114 Objective General Appearance: lethargic, thin EENT: normal ENT inspection Neck: non-tender, normal alignment, supple Cardiovascular: normal peripheral pulses, normal rate, regular rhythm, no gallop/murmur, no JVD Respiratory/Chest: Mechanical vent; respiratory distress, crackles/rales, rhonchi - bilaterally, expiratory wheezing Abdomen: normal bowel sounds, non tender, soft, no organomegaly, no mass Skin: normal pigmentation, warm/dry Laboratory Tests Test 10/07/17 05:05 White Blood Count 6.3 K/UL (4.8-10.8) Red Blood Count 2.72 M/UL (4.20-5.40) L Hemoglobin 8.7 G/DL (12.0-16.0) L Hematocrit 27.7 % (37.0-47.0) L Mean Corpuscular Volume 102 FL (80-99) H Mean Corpuscular Hemoglobin 32.1 PG (27.0-31.0) H Mean Corpuscular Hemoglobin Concent 31.5 G/DL (32.0-36.0) L Red Cell Distribution Width 18.3 % (11.6-14.8) H Platelet Count 144 K/UL (150-450) L Mean Platelet Volume 9.3 FL (6.5-10.1) Neutrophils (%) (Auto) 77.8 % (45.0-75.0) H Lymphocytes (%) (Auto) 7.8 % (20.0-45.0) L Monocytes (%) (Auto) 9.6 % (1.0-10.0) Eosinophils (%) (Auto) 3.4 % (0.0-3.0) H Basophils (%) (Auto) 1.5 % (0.0-2.0) Sodium Level 147 MMOL/L (136-145) H Potassium Level 3.7 MMOL/L (3.5-5.1) Chloride Level 114 MMOL/L (98-107) H Carbon Dioxide Level 28 MMOL/L (21-32) Anion Gap 5 mmol/L (5-15) Blood Urea Nitrogen 28 mg/dL (7-18) H Creatinine 0.7 MG/DL (0.55-1.30) Estimat Glomerular Filtration Rate mL/min (>60) Glucose Level 122 MG/DL (74-106) H Calcium Level 7.7 MG/DL (8.5-10.1) L Current Medications Medications (Trade) Dose Ordered Sig/Hermes Route PRN Reason Start Time Stop Time Status Last Admin Dose Admin Acetaminophen (Tylenol) 650 mg EVERY 6 HOURS PRN NG Fever/Headache/Mild Pain 09/13/17 20:45 10/13/17 20:44 10/03/17 12:25 Al Hydroxide/Mg Hydroxide (Mylanta) 15 ml Q1H PRN ORAL gi upset 10/07/17 06:30 10/07/17 12:00 Albuterol/ Ipratropium (Albuterol/ Ipratropium) 3 ml Q4H PRN HHN SHORTNESS OF BREATH 10/04/17 10:00 10/09/17 09:59 Atropine Sulfate (Atropine) 0.5 mg Q5M PRN IV HR less than 45 BPM 10/07/17 06:30 10/07/17 12:00 Clonidine HCl (Catapres Tab) 0.1 mg Q4H PRN ORAL SBP>160 UNRELIEVED BY HYDRALAZ 09/16/17 16:45 10/15/17 16:59 Dextrose (Dextrose 50%) STAT PRN IV Hypoglycemia 09/13/17 15:00 10/13/17 14:59 Dextrose/ Electrolytes 1,000 ml @ 125 mls/hr Q8H IV 10/06/17 21:00 11/05/17 20:59 10/07/17 05:36 Diltiazem HCl (Cardizem) 30 mg EVERY 8 HOURS NG 10/04/17 14:00 11/03/17 13:59 10/06/17 22:11 Diphenhydramine HCl (Benadryl) 25 mg Q15M PRN IVP Itching 10/07/17 06:30 10/07/17 12:00 Ertapenem 1 gm/ Sodium Chloride 110 ml @ 220 mls/hr Q24H IVPB 10/04/17 12:00 10/09/17 11:59 10/06/17 11:51 Fentanyl Citrate (Sublimaze 100 mcg/2 mL) 25 mcg Q10M PRN IV Moderate Pain (Pain Scale 4-6) 10/07/17 06:30 10/07/17 12:00 Hydralazine HCl (Apresoline) 5 mg Q30M PRN IV SBP>160 /DBP>90 10/07/17 06:30 10/07/17 12:00 Insulin Aspart (NovoLOG) EVERY 6 HOURS SUBQ 09/17/17 12:00 10/17/17 11:59 10/06/17 00:08 Ketotifen Fumarate (Zatidor) 1 drop DAILY BOTH EYES 09/26/17 09:00 10/25/17 08:59 10/07/17 08:45 Micafungin Sodium 100 mg/Dextrose 110 ml @ 110 mls/hr Q24H IVPB 10/07/17 13:00 10/14/17 12:59 Ondansetron HCl (Zofran) 4 mg Q1H PRN IVP Nausea & Vomiting 10/07/17 06:30 10/07/17 12:00 Pantoprazole (Protonix) 40 mg DAILY IVP 10/02/17 09:00 11/01/17 08:59 10/07/17 08:45 Polyethylene Glycol (Miralax) 17 gm BEDTIME ORAL 09/14/17 21:00 10/14/17 20:59 10/06/17 21:22 Madelyn Frey M.D. Oct 07, 2017 11:01
[2017-10-07] MEDS: Ertapenem 1 GM in NS 110 ML IVPB SCH (11:31)
--- NOTE | 2017-10-07 12:00 | Nephrology Progress Note ---
Assessment/Plan Problem List: (1) ARDS (adult respiratory distress syndrome) (2) Electrolyte imbalance (3) Thrombocytopenia Assessment Na wnl Platelets wnl (1) ARDS (adult respiratory distress syndrome) (2) Aspiration pneumonia (3) Protein-calorie malnutrition, severe (4) Diabetes mellitus (5) Anemia , aplastic by history (6) DM (7) UTI (8) Electrolyte imbalance (9) HTN (10) Depression (11) RA . Plan stable due trach no st date k via NGT as needed water via NGT Adjust BP meds K and Phos supplement as needed Monitor renal parameters and urine output avoid nephrotoxics per orders discussed with RN Left ventricular ejection fraction estimated to be 55 %. Subjective ROS Limited/Unobtainable: Yes Objective Objective Last 24 Hour Vital Signs Date Time Temp Pulse Resp B/P (MAP) Pulse Ox O2 Delivery O2 Flow Rate FiO2 10/07/17 11:06 94 19 40 10/07/17 11:00 93 25 127/57 96 Mechanical Ventilator 45 10/07/17 10:00 91 20 131/58 94 Mechanical Ventilator 45 10/07/17 09:00 81 25 112/53 95 Mechanical Ventilator 45 10/07/17 08:58 77 18 40 10/07/17 08:00 78 24 112/52 96 Mechanical Ventilator 45 10/07/17 08:00 45 10/07/17 08:00 98.5 98.5 10/07/17 07:26 83 10/07/17 07:00 86 20 127/57 100 Mechanical Ventilator 45 10/07/17 06:58 88 18 40 10/07/17 06:00 82 35 115/55 96 Mechanical Ventilator 45 10/07/17 05:16 83 19 40 10/07/17 05:00 83 33 117/57 96 Mechanical Ventilator 45 10/07/17 04:00 45 10/07/17 04:00 98.1 90 25 127/56 95 Mechanical Ventilator 45 98.1 10/07/17 03:17 87 10/07/17 03:17 90 18 40 10/07/17 03:00 87 21 113/48 97 Mechanical Ventilator 45 10/07/17 02:00 84 21 111/44 96 Mechanical Ventilator 45 10/07/17 01:10 93 19 40 10/07/17 01:00 95 29 124/55 98 Mechanical Ventilator 45 10/07/17 00:23 94 10/07/17 00:00 99.1 85 30 108/47 97 Mechanical Ventilator 45 99.1 10/07/17 00:00 45 10/06/17 23:16 95 20 45 10/06/17 23:00 95 20 123/50 97 Mechanical Ventilator 45 10/06/17 22:11 95 112/47 10/06/17 22:00 93 19 112/47 98 Mechanical Ventilator 45 10/06/17 21:00 100 24 121/61 99 Mechanical Ventilator 45 10/06/17 20:59 101 19 45 10/06/17 20:00 98.5 96 21 113/53 97 Mechanical Ventilator 45 98.5 10/06/17 20:00 45 10/06/17 19:10 103 19 45 10/06/17 19:07 105 10/06/17 19:00 105 28 127/61 96 Mechanical Ventilator 45 10/06/17 18:00 92 21 120/53 96 Mechanical Ventilator 45 10/06/17 17:12 96 19 45 10/06/17 17:00 92 18 117/53 95 Mechanical Ventilator 45 10/06/17 16:00 98.6 105 21 127/58 95 Mechanical Ventilator 45 98.6 10/06/17 16:00 96 10/06/17 16:00 45 10/06/17 15:14 99 18 45 10/06/17 15:00 99 21 127/58 95 Mechanical Ventilator 45 10/06/17 15:00 95 119/55 10/06/17 14:00 93 22 109/51 97 Mechanical Ventilator 45 10/06/17 13:08 113 22 45 10/06/17 13:00 111 21 152/72 97 Mechanical Ventilator 45 10/06/17 12:00 98.9 95 22 116/54 97 Mechanical Ventilator 45 98.9 10/06/17 12:00 99 10/06/17 12:00 45 Intake and Output 10/06/17 10/07/17 19:00 07:00 Intake Total 220 ml 1282 ml Output Total 440 ml 545 ml Balance -220 ml 737 ml IV Total 220 ml 1192 ml Other 90 ml Output Urine Total 440 ml 545 ml # Bowel Movements 1 Laboratory Tests 10/07/17 05:05: White Blood Count 6.3, Red Blood Count 2.72L, Hemoglobin 8.7L, Hematocrit 27.7L , Mean Corpuscular Volume 102H, Mean Corpuscular Hemoglobin 32.1H, Mean Corpuscular Hemoglobin Concent 31.5L, Red Cell Distribution Width 18.3H, Platelet Count 144L, Mean Platelet Volume 9.3, Neutrophils (%) (Auto) 77.8H, Lymphocytes (%) (Auto) 7.8L, Monocytes (%) (Auto) 9.6, Eosinophils (%) (Auto) 3.4H, Basophils (%) (Auto) 1.5, Sodium Level 147H, Potassium Level 3.7, Chloride Level 114H, Carbon Dioxide Level 28, Anion Gap 5, Blood Urea Nitrogen 28H, Creatinine 0.7, Estimat Glomerular Filtration Rate , Glucose Level 122H, Calcium Level 7.7L Height (Feet): 5 Height (Inches): 5.00 Weight (Pounds): 114 Cardiovascular: tachycardia Respiratory/Chest: decreased breath sounds Abdomen: distended Objective no change YAEL HANSEN Oct 07, 2017 12:00
--- NOTE | 2017-10-07 12:02 | Pulmonolgy Critical Care Note ---
Critical Care - Asmt/Plan Problems: (1) Abnormal LFTs (2) Aspiration pneumonia (3) ARDS (adult respiratory distress syndrome) (4) Protein-calorie malnutrition, severe (5) UTI (urinary tract infection) (6) Respiratory failure (7) Sepsis (8) Parkinsons disease (9) GERD (gastroesophageal reflux disease) (10) Thrombocytopenia (11) Electrolyte imbalance (12) Leukocytosis Respiratory: other - Continue ventilatory support, titrate down FiO2 to keep SaO2 > 90%, F/u CT CAP. D/W Dr. Echevarria I will broch at time of trach Cardiac: continue to monitor HR/BP Renal: F/U I&O, keep IV fluid, check electrolytes, other - F/U renal recs Infectious Disease: continue antibiotics - per ID Gastrointestinal: start feedings - would resume TF's if pt not going for ERCP, other - F/U GI recs Re: timing of ERCT Endocrine: monitor blood sugar Hematologic: monitor H/H Neurologic: keep patient comfortable Prophylaxis: Protonix, SCDs Disposition: keep in ICU Time Spent (Minutes): 40 Notes Reviewed: flow worker, cardio, renal, ID, GI Discussed with: nurses, consultants, family member Critical Care - Objective Last 24 Hour Vital Signs Date Time Temp Pulse Resp B/P (MAP) Pulse Ox O2 Delivery O2 Flow Rate FiO2 10/07/17 11:06 94 19 40 10/07/17 11:00 93 25 127/57 96 Mechanical Ventilator 45 10/07/17 10:00 91 20 131/58 94 Mechanical Ventilator 45 10/07/17 09:00 81 25 112/53 95 Mechanical Ventilator 45 10/07/17 08:58 77 18 40 10/07/17 08:00 78 24 112/52 96 Mechanical Ventilator 45 10/07/17 08:00 45 10/07/17 08:00 98.5 98.5 10/07/17 07:26 83 10/07/17 07:00 86 20 127/57 100 Mechanical Ventilator 45 10/07/17 06:58 88 18 40 10/07/17 06:00 82 35 115/55 96 Mechanical Ventilator 45 10/07/17 05:16 83 19 40 10/07/17 05:00 83 33 117/57 96 Mechanical Ventilator 45 10/07/17 04:00 45 10/07/17 04:00 98.1 90 25 127/56 95 Mechanical Ventilator 45 98.1 10/07/17 03:17 87 10/07/17 03:17 90 18 40 10/07/17 03:00 87 21 113/48 97 Mechanical Ventilator 45 10/07/17 02:00 84 21 111/44 96 Mechanical Ventilator 45 10/07/17 01:10 93 19 40 10/07/17 01:00 95 29 124/55 98 Mechanical Ventilator 45 10/07/17 00:23 94 10/07/17 00:00 99.1 85 30 108/47 97 Mechanical Ventilator 45 99.1 10/07/17 00:00 45 10/06/17 23:16 95 20 45 10/06/17 23:00 95 20 123/50 97 Mechanical Ventilator 45 10/06/17 22:11 95 112/47 10/06/17 22:00 93 19 112/47 98 Mechanical Ventilator 45 10/06/17 21:00 100 24 121/61 99 Mechanical Ventilator 45 10/06/17 20:59 101 19 45 10/06/17 20:00 98.5 96 21 113/53 97 Mechanical Ventilator 45 98.5 10/06/17 20:00 45 10/06/17 19:10 103 19 45 10/06/17 19:07 105 10/06/17 19:00 105 28 127/61 96 Mechanical Ventilator 45 10/06/17 18:00 92 21 120/53 96 Mechanical Ventilator 45 10/06/17 17:12 96 19 45 10/06/17 17:00 92 18 117/53 95 Mechanical Ventilator 45 10/06/17 16:00 98.6 105 21 127/58 95 Mechanical Ventilator 45 98.6 10/06/17 16:00 96 10/06/17 16:00 45 10/06/17 15:14 99 18 45 10/06/17 15:00 99 21 127/58 95 Mechanical Ventilator 45 10/06/17 15:00 95 119/55 10/06/17 14:00 93 22 109/51 97 Mechanical Ventilator 45 10/06/17 13:08 113 22 45 10/06/17 13:00 111 21 152/72 97 Mechanical Ventilator 45 10/06/17 12:00 98.9 95 22 116/54 97 Mechanical Ventilator 45 98.9 10/06/17 12:00 99 3/26/18 12:00 45 Status: somnolent, other - intubated, jaundiced Condition: critical HEENT: atraumatic, normocephalic Lungs: rhonchi Heart: HR/BP stable Abdomen: soft, non-tender, active bowel sounds Extremities: no C/C/E Accucheck: 136 Blood Sugars: BS controlled Critical Care - Subjective ROS Limited/Unobtainable: Yes ICU Day: 26 Intubation Day: 26 Interval Events: ERCP cancelled AFVSS, stable O2 needs TTE noted, CT's not done Condition: critical IV Access: peripheral EKG Rhythm: Sinus Rhythm FI02: 40 Vent Support Breath Rate: 18 Vent Support Mode: AC Vent Tidal Volume: 500 Sputum Amount: Small PEEP: 5.0 PIP: 50 Secretions: minimal Fluids: D51/2NS+10KCl Tube Feeding Amount: 0 Residuals: held for ERCT I&O: Intake and Output 10/06/17 10/07/17 19:00 07:00 Intake Total 220 ml 1282 ml Output Total 440 ml 545 ml Balance -220 ml 737 ml IV Total 220 ml 1192 ml Other 90 ml Output Urine Total 440 ml 545 ml # Bowel Movements 1 Subjective: Sedated but follow some commands ET-Tube: 7.5 ET Position: 20 Labs: Laboratory Tests Test 10/07/17 05:05 White Blood Count 6.3 K/UL (4.8-10.8) Red Blood Count 2.72 M/UL (4.20-5.40) L Hemoglobin 8.7 G/DL (12.0-16.0) L Hematocrit 27.7 % (37.0-47.0) L Mean Corpuscular Volume 102 FL (80-99) H Mean Corpuscular Hemoglobin 32.1 PG (27.0-31.0) H Mean Corpuscular Hemoglobin Concent 31.5 G/DL (32.0-36.0) L Red Cell Distribution Width 18.3 % (11.6-14.8) H Platelet Count 144 K/UL (150-450) L Mean Platelet Volume 9.3 FL (6.5-10.1) Neutrophils (%) (Auto) 77.8 % (45.0-75.0) H Lymphocytes (%) (Auto) 7.8 % (20.0-45.0) L Monocytes (%) (Auto) 9.6 % (1.0-10.0) Eosinophils (%) (Auto) 3.4 % (0.0-3.0) H Basophils (%) (Auto) 1.5 % (0.0-2.0) Sodium Level 147 MMOL/L (136-145) H Potassium Level 3.7 MMOL/L (3.5-5.1) Chloride Level 114 MMOL/L (98-107) H Carbon Dioxide Level 28 MMOL/L (21-32) Anion Gap 5 mmol/L (5-15) Blood Urea Nitrogen 28 mg/dL (7-18) H Creatinine 0.7 MG/DL (0.55-1.30) Estimat Glomerular Filtration Rate mL/min (>60) Glucose Level 122 MG/DL (74-106) H Calcium Level 7.7 MG/DL (8.5-10.1) L DEYA CHRISTINE M.D. Oct 07, 2017 12:02
--- NOTE | 2017-10-07 12:53 | General Progress Note ---
Assessment/Plan Problem List: (1) Arthritis, rheumatoid ICD Codes: M06.9 - Rheumatoid arthritis, unspecified SNOMED: 14977077 (2) Aspiration pneumonia ICD Codes: J69.0 - Pneumonitis due to inhalation of food and vomit SNOMED: 610194401 (3) Diabetes mellitus ICD Codes: E11.9 - Type 2 diabetes mellitus without complications SNOMED: 29333568 (4) ARDS (adult respiratory distress syndrome) ICD Codes: J80 - Acute respiratory distress syndrome SNOMED: 16201609 (5) Transaminitis ICD Codes: R74.0 - Nonspecific elevation of levels of transaminase and lactic acid dehydrogenase [LDH] SNOMED: 688610284, 142142081 (6) Dyspnea ICD Codes: R06.00 - Dyspnea, unspecified SNOMED: 506985116 (7) Parkinsons disease ICD Codes: G20 - Parkinson's disease SNOMED: 07585281 (8) Sepsis ICD Codes: A41.9 - Sepsis, unspecified organism SNOMED: 67988141 (9) GERD (gastroesophageal reflux disease) ICD Codes: K21.9 - Gastro-esophageal reflux disease without esophagitis SNOMED: 930459336 (10) Aplastic anemia ICD Codes: D61.9 - Aplastic anemia, unspecified SNOMED: 824613816 (11) Pneumonia ICD Codes: J18.9 - Pneumonia, unspecified organism SNOMED: 529625561 (12) HTN (hypertension) ICD Codes: I10 - Essential (primary) hypertension SNOMED: 45561507 Assessment/Plan Encephalopathy, agitation, psychotic disorder. -cont current meds -ativan prn Subjective Date patient seen: Oct 07, 2017 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: Reports: anxiety, depressed, emotional problems Allergies: Coded Allergies: No Known Allergies (Verified , 11/18/08) Subjective the pt is more alert Objective Last 24 Hour Vital Signs Date Time Temp Pulse Resp B/P (MAP) Pulse Ox O2 Delivery O2 Flow Rate FiO2 10/07/17 12:00 45 10/07/17 12:00 79 10/07/17 12:00 98.2 92 30 121/60 97 Mechanical Ventilator 45 98.2 10/07/17 11:06 94 19 40 10/07/17 11:00 93 25 127/57 96 Mechanical Ventilator 45 10/07/17 10:00 91 20 131/58 94 Mechanical Ventilator 45 10/07/17 09:00 81 25 112/53 95 Mechanical Ventilator 45 10/07/17 08:58 77 18 40 10/07/17 08:00 78 24 112/52 96 Mechanical Ventilator 45 10/07/17 08:00 45 10/07/17 08:00 98.5 98.5 10/07/17 07:26 83 10/07/17 07:00 86 20 127/57 100 Mechanical Ventilator 45 10/07/17 06:58 88 18 40 10/07/17 06:00 82 35 115/55 96 Mechanical Ventilator 45 10/07/17 05:16 83 19 40 10/07/17 05:00 83 33 117/57 96 Mechanical Ventilator 45 10/07/17 04:00 45 10/07/17 04:00 98.1 90 25 127/56 95 Mechanical Ventilator 45 98.1 10/07/17 03:17 87 10/07/17 03:17 90 18 40 10/07/17 03:00 87 21 113/48 97 Mechanical Ventilator 45 10/07/17 02:00 84 21 111/44 96 Mechanical Ventilator 45 10/07/17 01:10 93 19 40 10/07/17 01:00 95 29 124/55 98 Mechanical Ventilator 45 10/07/17 00:23 94 10/07/17 00:00 99.1 85 30 108/47 97 Mechanical Ventilator 45 99.1 10/07/17 00:00 45 10/06/17 23:16 95 20 45 10/06/17 23:00 95 20 123/50 97 Mechanical Ventilator 45 10/06/17 22:11 95 112/47 10/06/17 22:00 93 19 112/47 98 Mechanical Ventilator 45 10/06/17 21:00 100 24 121/61 99 Mechanical Ventilator 45 10/06/17 20:59 101 19 45 10/06/17 20:00 98.5 96 21 113/53 97 Mechanical Ventilator 45 98.5 10/06/17 20:00 45 10/06/17 19:10 103 19 45 10/06/17 19:07 105 10/06/17 19:00 105 28 127/61 96 Mechanical Ventilator 45 10/06/17 18:00 92 21 120/53 96 Mechanical Ventilator 45 10/06/17 17:12 96 19 45 10/06/17 17:00 92 18 117/53 95 Mechanical Ventilator 45 10/06/17 16:00 98.6 105 21 127/58 95 Mechanical Ventilator 45 98.6 10/06/17 16:00 96 10/06/17 16:00 45 10/06/17 15:14 99 18 45 10/06/17 15:00 99 21 127/58 95 Mechanical Ventilator 45 10/06/17 15:00 95 119/55 10/06/17 14:00 93 22 109/51 97 Mechanical Ventilator 45 10/06/17 13:08 113 22 45 10/06/17 13:00 111 21 152/72 97 Mechanical Ventilator 45 Intake and Output 10/06/17 10/07/17 19:00 07:00 Intake Total 220 ml 1282 ml Output Total 440 ml 545 ml Balance -220 ml 737 ml IV Total 220 ml 1192 ml Other 90 ml Output Urine Total 440 ml 545 ml # Bowel Movements 1 Laboratory Tests 10/07/17 05:05: White Blood Count 6.3, Red Blood Count 2.72L, Hemoglobin 8.7L, Hematocrit 27.7L , Mean Corpuscular Volume 102H, Mean Corpuscular Hemoglobin 32.1H, Mean Corpuscular Hemoglobin Concent 31.5L, Red Cell Distribution Width 18.3H, Platelet Count 144L, Mean Platelet Volume 9.3, Neutrophils (%) (Auto) 77.8H, Lymphocytes (%) (Auto) 7.8L, Monocytes (%) (Auto) 9.6, Eosinophils (%) (Auto) 3.4H, Basophils (%) (Auto) 1.5, Sodium Level 147H, Potassium Level 3.7, Chloride Level 114H, Carbon Dioxide Level 28, Anion Gap 5, Blood Urea Nitrogen 28H, Creatinine 0.7, Estimat Glomerular Filtration Rate , Glucose Level 122H, Calcium Level 7.7L Height (Feet): 5 Height (Inches): 5.00 Weight (Pounds): 114 Dary Nixon M.D. Oct 07, 2017 12:53
[2017-10-07] MEDS: Micafungin 100 MG in D5W 110 ML IVPB SCH (12:58)
--- NOTE | 2017-10-07 16:32 | Cardiac Electrophysiology PN ---
Assessment/Plan Assessment/Plan 1. Respiratory failure, due to underlying ARDS , pneumonia. Intubated on the vent. Already ruled out for myocardial infarction. Now on 45% Fio2 with PEEP of 5. Tracheostomy and Bronchoscopy postponed to after ERCP 2. Left bundle-branch block. No evidence of advanced heart block. 3. HTN and diastolic dysfunction. On Cardizem 30 NG q8 hr. Echo EF 55% 4. Hypernatremia and Azotemia. F/U per Dr. Mayer 5. Pneumonia and sepsis on IV antibiotics by Dr. Hunter. 6. Psychiatric disorder. 7. Anasarca. 3rd spacing. 8. Anemia with Hb 6.6 s/p PRBC. CT chest abdomen and pelvis without contrast no acute finding S/P EGD by Dr Walton 9. Severe thrombocytopenia. S/P platelet transfusion 10. Abnormal LFT, Biliary obstruction, possible cholangitis. S/P ERCP. CBD sludge. Repeat ERCP rescheduled tomorrow as Bilirubin 9 DW RN Subjective Subjective Intubated on Vent in ICU. No SVT or VT overnight. RN at bedside.ERCP was rescheduled again to tomorrow. Objective Last 24 Hour Vital Signs Date Time Temp Pulse Resp B/P (MAP) Pulse Ox O2 Delivery O2 Flow Rate FiO2 10/07/17 16:00 98.4 88 26 135/62 93 Mechanical Ventilator 45 98.4 10/07/17 16:00 45 10/07/17 15:00 89 24 135/67 95 Mechanical Ventilator 45 10/07/17 14:52 95 20 40 10/07/17 14:04 79 123/61 10/07/17 14:00 81 25 126/63 96 Mechanical Ventilator 45 10/07/17 13:20 81 19 40 10/07/17 13:00 83 28 123/61 95 Mechanical Ventilator 45 10/07/17 12:00 45 10/07/17 12:00 79 10/07/17 12:00 98.2 92 30 121/60 97 Mechanical Ventilator 45 98.2 10/07/17 11:06 94 19 40 10/07/17 11:00 93 25 127/57 96 Mechanical Ventilator 45 10/07/17 10:00 91 20 131/58 94 Mechanical Ventilator 45 10/07/17 09:00 81 25 112/53 95 Mechanical Ventilator 45 10/07/17 08:58 77 18 40 10/07/17 08:00 78 24 112/52 96 Mechanical Ventilator 45 10/07/17 08:00 45 10/07/17 08:00 98.5 98.5 10/07/17 07:26 83 10/07/17 07:00 86 20 127/57 100 Mechanical Ventilator 45 10/07/17 06:58 88 18 40 10/07/17 06:00 82 35 115/55 96 Mechanical Ventilator 45 10/07/17 05:16 83 19 40 10/07/17 05:00 83 33 117/57 96 Mechanical Ventilator 45 10/07/17 04:00 45 10/07/17 04:00 98.1 90 25 127/56 95 Mechanical Ventilator 45 98.1 10/07/17 03:17 87 10/07/17 03:17 90 18 40 10/07/17 03:00 87 21 113/48 97 Mechanical Ventilator 45 10/07/17 02:00 84 21 111/44 96 Mechanical Ventilator 45 10/07/17 01:10 93 19 40 10/07/17 01:00 95 29 124/55 98 Mechanical Ventilator 45 10/07/17 00:23 94 10/07/17 00:00 99.1 85 30 108/47 97 Mechanical Ventilator 45 99.1 10/07/17 00:00 45 10/06/17 23:16 95 20 45 10/06/17 23:00 95 20 123/50 97 Mechanical Ventilator 45 10/06/17 22:11 95 112/47 10/06/17 22:00 93 19 112/47 98 Mechanical Ventilator 45 10/06/17 21:00 100 24 121/61 99 Mechanical Ventilator 45 10/06/17 20:59 101 19 45 10/06/17 20:00 98.5 96 21 113/53 97 Mechanical Ventilator 45 98.5 10/06/17 20:00 45 10/06/17 19:10 103 19 45 10/06/17 19:07 105 10/06/17 19:00 105 28 127/61 96 Mechanical Ventilator 45 10/06/17 18:00 92 21 120/53 96 Mechanical Ventilator 45 10/06/17 17:12 96 19 45 10/06/17 17:00 92 18 117/53 95 Mechanical Ventilator 45 Intake and Output 10/06/17 10/07/17 19:00 07:00 Intake Total 220 ml 1282 ml Output Total 440 ml 545 ml Balance -220 ml 737 ml IV Total 220 ml 1192 ml Other 90 ml Output Urine Total 440 ml 545 ml # Bowel Movements 1 Laboratory Tests Test 10/07/17 05:05 White Blood Count 6.3 K/UL (4.8-10.8) Red Blood Count 2.72 M/UL (4.20-5.40) L Hemoglobin 8.7 G/DL (12.0-16.0) L Hematocrit 27.7 % (37.0-47.0) L Mean Corpuscular Volume 102 FL (80-99) H Mean Corpuscular Hemoglobin 32.1 PG (27.0-31.0) H Mean Corpuscular Hemoglobin Concent 31.5 G/DL (32.0-36.0) L Red Cell Distribution Width 18.3 % (11.6-14.8) H Platelet Count 144 K/UL (150-450) L Mean Platelet Volume 9.3 FL (6.5-10.1) Neutrophils (%) (Auto) 77.8 % (45.0-75.0) H Lymphocytes (%) (Auto) 7.8 % (20.0-45.0) L Monocytes (%) (Auto) 9.6 % (1.0-10.0) Eosinophils (%) (Auto) 3.4 % (0.0-3.0) H Basophils (%) (Auto) 1.5 % (0.0-2.0) Sodium Level 147 MMOL/L (136-145) H Potassium Level 3.7 MMOL/L (3.5-5.1) Chloride Level 114 MMOL/L (98-107) H Carbon Dioxide Level 28 MMOL/L (21-32) Anion Gap 5 mmol/L (5-15) Blood Urea Nitrogen 28 mg/dL (7-18) H Creatinine 0.7 MG/DL (0.55-1.30) Estimat Glomerular Filtration Rate mL/min (>60) Glucose Level 122 MG/DL (74-106) H Calcium Level 7.7 MG/DL (8.5-10.1) L Objective HEAD AND NECK: Orally intubated. NG tube in LUNGS: Coarse rhonchi bilaterally CARDIOVASCULAR: Tachy S1 and S2.No murmur ABDOMEN: Soft. EXTREMITIES: 1+ pitting edema. Toluie,Charlie MD Oct 07, 2017 16:32
--- NOTE | 2017-10-07 17:22 | Internal Med Progress Note ---
Subjective Date of Service: Oct 07, 2017 Physician Name Noah Bowens Attending Physician Jesus Barahona MD Current Medications Medications (Trade) Dose Ordered Sig/Hermes Route PRN Reason Start Time Stop Time Status Last Admin Dose Admin Acetaminophen (Tylenol) 650 mg EVERY 6 HOURS PRN NG Fever/Headache/Mild Pain 09/13/17 20:45 10/13/17 20:44 10/03/17 12:25 Albuterol/ Ipratropium (Albuterol/ Ipratropium) 3 ml Q4H PRN HHN SHORTNESS OF BREATH 10/04/17 10:00 10/09/17 09:59 Clonidine HCl (Catapres Tab) 0.1 mg Q4H PRN ORAL SBP>160 UNRELIEVED BY HYDRALAZ 09/16/17 16:45 10/15/17 16:59 Dextrose (Dextrose 50%) STAT PRN IV Hypoglycemia 09/13/17 15:00 10/13/17 14:59 Dextrose/ Electrolytes 1,000 ml @ 125 mls/hr Q8H IV 10/06/17 21:00 11/05/17 20:59 10/07/17 12:58 Diltiazem HCl (Cardizem) 30 mg EVERY 8 HOURS NG 10/04/17 14:00 11/03/17 13:59 10/07/17 14:04 Ertapenem 1 gm/ Sodium Chloride 110 ml @ 220 mls/hr Q24H IVPB 10/04/17 12:00 10/09/17 11:59 10/07/17 11:31 Insulin Aspart (NovoLOG) EVERY 6 HOURS SUBQ 09/17/17 12:00 10/17/17 11:59 10/07/17 17:13 Ketotifen Fumarate (Zatidor) 1 drop DAILY BOTH EYES 09/26/17 09:00 10/25/17 08:59 10/07/17 08:45 Micafungin Sodium 100 mg/Dextrose 110 ml @ 110 mls/hr Q24H IVPB 10/07/17 13:00 10/14/17 12:59 10/07/17 12:58 Pantoprazole (Protonix) 40 mg DAILY IVP 10/02/17 09:00 11/01/17 08:59 10/07/17 08:45 Polyethylene Glycol (Miralax) 17 gm BEDTIME ORAL 09/14/17 21:00 4/3/18 20:59 10/06/17 21:22 Allergies: Coded Allergies: No Known Allergies (Verified , 11/18/08) ROS Limited/Unobtainable: Yes Subjective 76 YO F admitted with Shortness of breath, now respiratory failure. Intubated and sedated. Cover for Internal Med-Dr. Barahona. ICU . S/P ERCP 10/07/17 Objective Last Vital Signs Date Time Temp Pulse Resp B/P (MAP) Pulse Ox O2 Delivery O2 Flow Rate FiO2 10/07/17 17:00 85 21 132/61 95 Mechanical Ventilator 45 10/07/17 16:00 98.4 98.4 10/04/17 04:00 Laboratory Tests Test 10/07/17 05:05 White Blood Count 6.3 K/UL (4.8-10.8) Red Blood Count 2.72 M/UL (4.20-5.40) L Hemoglobin 8.7 G/DL (12.0-16.0) L Hematocrit 27.7 % (37.0-47.0) L Mean Corpuscular Volume 102 FL (80-99) H Mean Corpuscular Hemoglobin 32.1 PG (27.0-31.0) H Mean Corpuscular Hemoglobin Concent 31.5 G/DL (32.0-36.0) L Red Cell Distribution Width 18.3 % (11.6-14.8) H Platelet Count 144 K/UL (150-450) L Mean Platelet Volume 9.3 FL (6.5-10.1) Neutrophils (%) (Auto) 77.8 % (45.0-75.0) H Lymphocytes (%) (Auto) 7.8 % (20.0-45.0) L Monocytes (%) (Auto) 9.6 % (1.0-10.0) Eosinophils (%) (Auto) 3.4 % (0.0-3.0) H Basophils (%) (Auto) 1.5 % (0.0-2.0) Sodium Level 147 MMOL/L (136-145) H Potassium Level 3.7 MMOL/L (3.5-5.1) Chloride Level 114 MMOL/L (98-107) H Carbon Dioxide Level 28 MMOL/L (21-32) Anion Gap 5 mmol/L (5-15) Blood Urea Nitrogen 28 mg/dL (7-18) H Creatinine 0.7 MG/DL (0.55-1.30) Estimat Glomerular Filtration Rate mL/min (>60) Glucose Level 122 MG/DL (74-106) H Calcium Level 7.7 MG/DL (8.5-10.1) L Intake and Output 10/06/17 10/07/17 19:00 07:00 Intake Total 220 ml 1282 ml Output Total 440 ml 545 ml Balance -220 ml 737 ml IV Total 220 ml 1192 ml Other 90 ml Output Urine Total 440 ml 545 ml # Bowel Movements 1 Objective General Appearance: lethargic, thin EENT: normal ENT inspection Neck: non-tender, normal alignment, supple Cardiovascular: normal peripheral pulses, normal rate, regular rhythm, no gallop/murmur, no JVD Respiratory/Chest: Mechanical vent; respiratory distress, crackles/rales, rhonchi - bilaterally, expiratory wheezing Abdomen: normal bowel sounds, non tender, soft, no organomegaly, no mass Skin: normal pigmentation, warm/dry Assessment/Plan Problem List: (1) HTN (hypertension) Assessment & Plan: Currently hypotensive. (2) Arthritis, rheumatoid (3) Parkinsons disease (4) Aplastic anemia (5) GERD (gastroesophageal reflux disease) (6) Respiratory failure Assessment & Plan: Tracheostomy scheduled this week-see surgery note. Cont vent per pulmonary (7) Pneumonia (8) Dyspnea (9) Sepsis Assessment & Plan: Blood culture neg. Continue Amikacin, micafungin and flagyl per ID (10) ARDS (adult respiratory distress syndrome) Assessment & Plan: See pulmonary note (11) UTI (urinary tract infection) Assessment & Plan: E.Coli. Continue abx per ID (12) Anemia Assessment & Plan: S/P Transfusion 2 units PRBC (13) Diabetes mellitus, type II Assessment & Plan: Continue novolog sliding scale (14) Leukocytosis Assessment & Plan: Worsening. See ID note. Start amikacin and fluconazole (15) Thrombocytopenia (16) Gallbladder sludge Assessment & Plan: s/P ERCP 10/01 & 10/07/17. Status: not improved NOAH BOWENS Oct 07, 2017 17:22
[2017-10-07] MEDS ORDERED: Tubing IV Secondary IV ONE (17:39)
[2017-10-07] MEDS ORDERED: NS 500ML ONE (17:39)
[2017-10-07] MEDS ORDERED: NS 275ml ONE (17:39)
[2017-10-07] MEDS ORDERED: D5NS 1000ml IV ONE (17:39)
--- NOTE | 2017-10-07 17:50 | Diagnostic Imaging Report ---
Clinical Indication: Shortness of breath, respiratory failure Technique: Spiral acquisitions obtained through the chest. No IV contrast utilized, reason not stated. Multiplanar reconstructions generated. Total dose length product 1247.68 mGycm. CTDIvol(s) 17.67,15.23 mGy. Dose reduction achieved using automated exposure control Comparison: 09/23/2017 Findings:Exam is limited due to respiratory motion artifact Diffuse extensive mostly alveolar opacities occupying essentially entirely both lungs, appearing denser and more extensive than on the previous exam. Endotracheal tube is again demonstrated, tip terminating approximately 3 cm above the ludmila, in good position. Again demonstrated are bilateral moderate to large pleural effusions, larger on the left than on the right, and slightly larger on both sides and on the previous study. There is diffuse edema of the subcutaneous fat. A nasogastric tube is again demonstrated. No mediastinal or hilar mass or adenopathy. The heart size is normal. No definite pericardial effusion. No axillary or chest wall mass or adenopathy. The previously demonstrated right lobe thyroid nodule is not definitely visualized on this exam, probably excluded from imaging volume. Previously demonstrated left neck catheter is no longer visualized The bones demonstrate degenerative spondylosis changes. Impression: Extensive diffuse bilateral pulmonary parenchymal disease, slightly worse than on prior exam of 09/23/2017. Main differential considerations include pneumonia, ARDS, pulmonary edema, among multiple other possibilities. Bilateral moderate to large pleural effusions, slightly increased in size from 09/23/2017 Nasogastric and endotracheal tubes in good position Evidence of generalized anasarca, with diffuse subcutaneous soft tissue edema. The CT scanner at [facility] is accredited by the [employer] and the scans are performed using protocols designed to limit radiation exposure to as low as reasonably achievable to attain images of sufficient resolution adequate for diagnostic evaluation.
--- NOTE | 2017-10-07 18:01 | Diagnostic Imaging Report ---
Indication: Abdominal pain Technique: Spiral acquisitions obtained through the abdomen and pelvis. Patient given enteric contrast No IV contrast utilized, per referring physician request.. Multiplanar reconstructions were generated. Total dose length product 1247.68 mGycm. CTDIvol(s) 17.67,15.23 mGy. Dose reduction achieved using automated exposure control Comparison: 09/23/2017 Findings: There is again demonstrated is anasarca, with diffuse edema of the bilateral subcutaneous fat, ascites fluid, and pleural effusions. No definite evidence of diverticulosis or diverticulitis. The appendix is not definitely demonstrated, but no findings to suggest acute appendicitis are evident. Contrast is seen all the way through the small bowel into the proximal colon. Some contrast is seen in the rectum but this is probably from the earlier study. No definite small bowel wall thickening. No free intraperitoneal gas. There is a nasogastric tube, tip terminating in the gastric antrum. Previously demonstrated rectal catheter has been removed Interim placement of an endobiliary stent, tip projecting at the level of the duodenum, proximal in just below the level of the hepatic duct confluence. There is mild intrahepatic ductal dilatation despite this. The gallbladder wall is diffusely edematous, similar to previous. Lack of IV contrast limits assessment of the solid organs. The liver is grossly unremarkable. The pancreas is unremarkable. The spleen demonstrates an area of low attenuation in the anterior upper pole which measures 4.5 cm diameter, and a smaller 1.4 cm low-attenuation area in the interpolar region. In retrospect, these were possibly evident previously but were obscured by artifact from the patient's arms. Much more evident currently. The adrenals are unremarkable. The kidneys are unremarkable. The bladder is empty, contains a Davidson catheter. The uterus and adnexal structures are unremarkable. No pelvic mass or adenopathy. 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 Again demonstrated are chronic dislocations of both hips with surrounding inflammatory change, as well as old ununited fractures of the right iliac bone and of the right medial pubic bone. Extensive deformities of the femoral heads are noted, as well as prominent trabecular pattern of the pelvic bones. Impression: Anasarca, also previously described, currently similar except for increased size of bilateral pleural fluid described on chest CT. Gallbladder wall edema, probably a manifestation of anasarca, although acute cholecystitis not excludable. Note that similar findings were seen on the previous study, which was followed by a negative HIDA scan. Endometrial biliary stent now present. Mild central intrahepatic biliary ductal dilatation despite this. Low-attenuation areas in the spleen, as described. Equivocal clinically evident previously in retrospect that much more conspicuous currently, probably due to less image artifact on the current study. 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 Nonspecific inflammatory changes surrounding the hips Right hip region lipoma The CT scanner at [facility] is accredited by the [employer] and the scans are performed using protocols designed to limit radiation exposure to as low as reasonably achievable to attain images of sufficient resolution adequate for diagnostic evaluation.
[2017-10-07] MEDS: Miralax 17gm pkt ORAL SCH (21:00)
--- NOTE | 2017-10-07 22:54 | General Progress Note ---
Assessment/Plan Assessment/Plan Assessment - Resp failure / ARDS / PNA - Abnormal LFT, Biliary obstruction, possible cholangitis, CBD sludge - bili higher - Family now accepting repeat ERCP - Anemia with OB (+) stools - thrombocytopenia - Malnutrition - hypernatremia - improving - AMS - improved Recommendations - replace lytes - transfuse PRN - Elevate HOB - Vent care - Monitor labs - abx - ERCP in am Subjective Allergies: Coded Allergies: No Known Allergies (Verified , 11/18/08) Subjective Above noted more sedate today but does not follow commands unable to schedule ERCP today - planned for Wed Objective Last 24 Hour Vital Signs Date Time Temp Pulse Resp B/P (MAP) Pulse Ox O2 Delivery O2 Flow Rate FiO2 10/07/17 22:13 83 151/104 10/07/17 21:30 80 20 40 10/07/17 21:00 83 32 135/60 96 Mechanical Ventilator 45 10/07/17 20:00 45 10/07/17 20:00 99.1 83 32 129/60 96 Mechanical Ventilator 45 99.1 10/07/17 20:00 83 10/07/17 19:45 83 19 Mechanical Ventilator 40 10/07/17 19:30 81 19 40 10/07/17 19:00 79 20 130/64 97 Mechanical Ventilator 45 10/07/17 18:00 80 19 133/69 97 Mechanical Ventilator 45 10/07/17 17:21 88 22 40 10/07/17 17:00 85 21 132/61 95 Mechanical Ventilator 45 10/07/17 16:00 98.4 88 26 135/62 93 Mechanical Ventilator 45 98.4 10/07/17 16:00 85 10/07/17 16:00 45 10/07/17 15:00 89 24 135/67 95 Mechanical Ventilator 45 10/07/17 14:52 95 20 40 10/07/17 14:04 79 123/61 10/07/17 14:00 81 25 126/63 96 Mechanical Ventilator 45 10/07/17 13:20 81 19 40 10/07/17 13:00 83 28 123/61 95 Mechanical Ventilator 45 10/07/17 12:00 45 10/07/17 12:00 79 10/07/17 12:00 98.2 92 30 121/60 97 Mechanical Ventilator 45 98.2 10/07/17 11:06 94 19 40 10/07/17 11:00 93 25 127/57 96 Mechanical Ventilator 45 10/07/17 10:00 91 20 131/58 94 Mechanical Ventilator 45 10/07/17 09:00 81 25 112/53 95 Mechanical Ventilator 45 10/07/17 08:58 77 18 40 10/07/17 08:00 78 24 112/52 96 Mechanical Ventilator 45 10/07/17 08:00 45 10/07/17 08:00 98.5 98.5 10/07/17 07:26 83 10/07/17 07:00 86 20 127/57 100 Mechanical Ventilator 45 10/07/17 06:58 88 18 40 10/07/17 06:00 82 35 115/55 96 Mechanical Ventilator 45 10/07/17 05:16 83 19 40 10/07/17 05:00 83 33 117/57 96 Mechanical Ventilator 45 10/07/17 04:00 45 10/07/17 04:00 98.1 90 25 127/56 95 Mechanical Ventilator 45 98.1 10/07/17 03:17 87 10/07/17 03:17 90 18 40 10/07/17 03:00 87 21 113/48 97 Mechanical Ventilator 45 10/07/17 02:00 84 21 111/44 96 Mechanical Ventilator 45 10/07/17 01:10 93 19 40 10/07/17 01:00 95 29 124/55 98 Mechanical Ventilator 45 10/07/17 00:23 94 10/07/17 00:00 99.1 85 30 108/47 97 Mechanical Ventilator 45 99.1 10/07/17 00:00 45 10/06/17 23:16 95 20 45 10/06/17 23:00 95 20 123/50 97 Mechanical Ventilator 45 Intake and Output 10/06/17 10/07/17 19:00 07:00 Intake Total 220 ml 1282 ml Output Total 440 ml 545 ml Balance -220 ml 737 ml IV Total 220 ml 1192 ml Other 90 ml Output Urine Total 440 ml 545 ml # Bowel Movements 1 Laboratory Tests 10/07/17 05:05: White Blood Count 6.3, Red Blood Count 2.72L, Hemoglobin 8.7L, Hematocrit 27.7L , Mean Corpuscular Volume 102H, Mean Corpuscular Hemoglobin 32.1H, Mean Corpuscular Hemoglobin Concent 31.5L, Red Cell Distribution Width 18.3H, Platelet Count 144L, Mean Platelet Volume 9.3, Neutrophils (%) (Auto) 77.8H, Lymphocytes (%) (Auto) 7.8L, Monocytes (%) (Auto) 9.6, Eosinophils (%) (Auto) 3.4H, Basophils (%) (Auto) 1.5, Sodium Level 147H, Potassium Level 3.7, Chloride Level 114H, Carbon Dioxide Level 28, Anion Gap 5, Blood Urea Nitrogen 28H, Creatinine 0.7, Estimat Glomerular Filtration Rate , Glucose Level 122H, Calcium Level 7.7L Height (Feet): 5 Height (Inches): 5.00 Weight (Pounds): 114 Objective WDWN NCAT , (+) ETT supple CTA RRR abd soft (+) edema non verbal ARNULFO DURON Oct 07, 2017 22:54
[2017-10-08] VITALS (23 sets, daily range): BP systolic 111–149; BP diastolic 5–72
[2017-10-08 04:41] LABS: BASOPHILS % (AUTO) 1.3 % (0.0-2.0); EOSINOPHILS % (AUTO) 3.8 % (0.0-3.0); HEMATOCRIT 29.5 % (37.0-47.0); HEMOGLOBIN 9.2 G/DL (12.0-16.0); LYMPHOCYTES % (AUTO) 6.8 % (20.0-45.0); MEAN CORPUSCULAR VOLUME 101 FL (80-99); MONOCYTES % (AUTO) 11.6 % (1.0-10.0); NEUTROPHILS % (AUTO) 76.6 % (45.0-75.0); PLATELET COUNT 150 K/UL (150-450); RED BLOOD COUNT 2.92 M/UL (4.20-5.40); RED CELL DISTRIBUTION WIDTH 17.6 % (11.6-14.8); WHITE BLOOD COUNT 6.8 K/UL (4.8-10.8)
[2017-10-08 04:52] LABS: ALANINE AMINOTRANSFERASE 31 U/L (12-78); ALBUMIN 1.4 G/DL (3.4-5.0); ALBUMIN/GLOBULIN RATIO 0.3 (1.0-2.7); ALKALINE PHOSPHATASE 854 U/L (46-116); ANION GAP 6 mmol/L (5-15); ASPARTATE AMINO TRANSFERASE 60 U/L (15-37); BILIRUBIN,TOTAL 9.1 MG/DL (0.2-1.0); BLOOD UREA NITROGEN 20 mg/dL (7-18); CALCIUM 7.7 MG/DL (8.5-10.1); CARBON DIOXIDE 27 MMOL/L (21-32); CHLORIDE 110 MMOL/L (98-107); CREATININE 0.5 MG/DL (0.55-1.30); POTASSIUM 3.5 MMOL/L (3.5-5.1); SODIUM 143 MMOL/L (136-145)
[2017-10-08 05:02] LABS: BILIRUBIN,DIRECT 7.3 MG/DL (0.0-0.3)
[2017-10-08] MEDS: dilTIAZem HCl 30mg tab NG SCH ×3 (06:00→22:28)
[2017-10-08] MEDS: NovoLOG Insulin Flexpen SUBQ SCH ×5 (06:00→23:31)
[2017-10-08] MEDS: D5 1/2NS w/KCL 10meq 1,000 ML IV SCH (06:26)
--- NOTE | 2017-10-08 08:25 | Pulmonolgy Critical Care Note ---
Critical Care - Asmt/Plan Problems: (1) Abnormal LFTs (2) Aspiration pneumonia (3) ARDS (adult respiratory distress syndrome) (4) Protein-calorie malnutrition, severe (5) UTI (urinary tract infection) (6) Respiratory failure (7) Sepsis (8) Parkinsons disease (9) GERD (gastroesophageal reflux disease) (10) Thrombocytopenia (11) Electrolyte imbalance (12) Leukocytosis Respiratory: other - Optimize pulmonary hygiene/mobilzie as tolerated, continue current ventilatory support, weaning after ERCP, will need trach, will bronch at the same time Cardiac: continue to monitor HR/BP, other - D/C IVF, start lasix, F/U cards recs Renal: other - D/C IVF, IV lasix +/- albumin Infectious Disease: continue antibiotics - per ID Gastrointestinal: other - OCTO ERCP today, trend LFT's Endocrine: monitor blood sugar, check TSH Hematologic: monitor H/H Neurologic: other - Check ammonia, TSH, CT head, hold sedative, monitor MS Prophylaxis: Protonix, Heparin Disposition: keep in ICU Time Spent (Minutes): 60 Notes 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, 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, 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, ID, GI Critical Care - Objective Last 24 Hour Vital Signs Date Time Temp Pulse Resp B/P (MAP) Pulse Ox O2 Delivery O2 Flow Rate FiO2 10/08/17 07:11 82 20 40 10/08/17 07:00 82 30 136/61 96 Mechanical Ventilator 45 10/08/17 06:00 80 31 134/5 96 Mechanical Ventilator 45 10/08/17 06:00 84 134/58 10/08/17 05:08 91 26 40 10/08/17 05:00 87 31 144/61 96 Mechanical Ventilator 45 10/08/17 04:00 99.0 87 31 132/58 97 Mechanical Ventilator 45 99.0 10/08/17 04:00 45 10/08/17 04:00 85 10/08/17 03:29 90 20 40 10/08/17 03:00 88 32 130/60 97 Mechanical Ventilator 45 10/08/17 02:00 87 32 134/62 97 Mechanical Ventilator 45 10/08/17 01:30 84 20 40 10/08/17 01:00 85 31 132/59 97 Mechanical Ventilator 45 10/08/17 00:00 99.2 83 31 137/59 97 Mechanical Ventilator 45 99.2 3/28/18 00:00 45 10/07/17 23:30 88 21 40 10/07/17 23:00 83 31 125/58 97 Mechanical Ventilator 45 10/07/17 22:13 83 151/104 10/07/17 22:00 84 31 121/63 97 Mechanical Ventilator 45 10/07/17 21:30 80 20 40 10/07/17 21:00 83 32 135/60 96 Mechanical Ventilator 45 10/07/17 20:00 45 10/07/17 20:00 99.1 83 32 129/60 96 Mechanical Ventilator 45 99.1 10/07/17 20:00 83 10/07/17 19:45 83 19 Mechanical Ventilator 40 10/07/17 19:30 81 19 40 10/07/17 19:00 79 20 130/64 97 Mechanical Ventilator 45 10/07/17 18:00 80 19 133/69 97 Mechanical Ventilator 45 10/07/17 17:21 88 22 40 10/07/17 17:00 85 21 132/61 95 Mechanical Ventilator 45 10/07/17 16:00 98.4 88 26 135/62 93 Mechanical Ventilator 45 98.4 10/07/17 16:00 85 10/07/17 16:00 45 10/07/17 15:00 89 24 135/67 95 Mechanical Ventilator 45 10/07/17 14:52 95 20 40 10/07/17 14:04 79 123/61 10/07/17 14:00 81 25 126/63 96 Mechanical Ventilator 45 10/07/17 13:20 81 19 40 10/07/17 13:00 83 28 123/61 95 Mechanical Ventilator 45 10/07/17 12:00 45 10/07/17 12:00 79 10/07/17 12:00 98.2 92 30 121/60 97 Mechanical Ventilator 45 98.2 10/07/17 11:06 94 19 40 10/07/17 11:00 93 25 127/57 96 Mechanical Ventilator 45 10/07/17 10:00 91 20 131/58 94 Mechanical Ventilator 45 10/07/17 09:00 81 25 112/53 95 Mechanical Ventilator 45 10/07/17 08:58 77 18 40 Status: obtunded Condition: critical HEENT: atraumatic, normocephalic Lungs: rales - scattered at the bases Heart: HR/BP stable Abdomen: soft, non-tender, active bowel sounds Extremities: edema - 2+ Accucheck: 79 Blood Sugars: BS controlled Critical Care - Subjective ROS Limited/Unobtainable: Yes ICU Day: 27 Intubation Day: 27 Interval Events: CT's reviewed ---> CT chest with diffuse alveolar opacities +/- edema and b effusions, CT AP with anasarca TTE: LVEF 50% with mild DD and elevated filling pressures Condition: critical IV Access: peripheral EKG Rhythm: Sinus Rhythm FI02: 40 Vent Support Breath Rate: 18 Vent Support Mode: AC Vent Tidal Volume: 500 Sputum Amount: Small PEEP: 5.0 PIP: 51 Fluids: D51/2@125 Tube Feeding Amount: 0 I&O: Intake and Output 10/07/17 10/08/17 19:00 07:00 Intake Total 1600 ml 1500 ml Output Total 400 ml 421 ml Balance 1200 ml 1079 ml Intake Free Water 80 ml IV Total 1470 ml 1500 ml Tube Feeding 0 ml Other 50 ml Output Urine Total 400 ml 420 ml Stool Total 1 ml # Bowel Movements 1 5 Subjective: Sedated but follow some commands ET-Tube: 7.5 ET Position: 20 Labs: Laboratory Tests Test 10/08/17 04:00 White Blood Count 6.8 K/UL (4.8-10.8) Red Blood Count 2.92 M/UL (4.20-5.40) L Hemoglobin 9.2 G/DL (12.0-16.0) L Hematocrit 29.5 % (37.0-47.0) L Mean Corpuscular Volume 101 FL (80-99) H Mean Corpuscular Hemoglobin 31.7 PG (27.0-31.0) H Mean Corpuscular Hemoglobin Concent 31.4 G/DL (32.0-36.0) L Red Cell Distribution Width 17.6 % (11.6-14.8) H Platelet Count 150 K/UL (150-450) Mean Platelet Volume 9.4 FL (6.5-10.1) Neutrophils (%) (Auto) 76.6 % (45.0-75.0) H Lymphocytes (%) (Auto) 6.8 % (20.0-45.0) L Monocytes (%) (Auto) 11.6 % (1.0-10.0) H Eosinophils (%) (Auto) 3.8 % (0.0-3.0) H Basophils (%) (Auto) 1.3 % (0.0-2.0) Sodium Level 143 MMOL/L (136-145) Potassium Level 3.5 MMOL/L (3.5-5.1) Chloride Level 110 MMOL/L (98-107) H Carbon Dioxide Level 27 MMOL/L (21-32) Anion Gap 6 mmol/L (5-15) Blood Urea Nitrogen 20 mg/dL (7-18) H Creatinine 0.5 MG/DL (0.55-1.30) L Estimat Glomerular Filtration Rate mL/min (>60) Glucose Level 86 MG/DL (74-106) Calcium Level 7.7 MG/DL (8.5-10.1) L Total Bilirubin 9.1 MG/DL (0.2-1.0) H Direct Bilirubin 7.3 MG/DL (0.0-0.3) H Aspartate Amino Transf (AST/SGOT) 60 U/L (15-37) H Alanine Aminotransferase (ALT/SGPT) 31 U/L (12-78) Alkaline Phosphatase 854 U/L (46-116) H Total Protein 5.8 G/DL (6.4-8.2) L Albumin 1.4 G/DL (3.4-5.0) L Globulin 4.4 g/dL Albumin/Globulin Ratio 0.3 (1.0-2.7) L DEYA CHRISTINE M.D. Oct 08, 2017 08:25
[2017-10-08] MEDS ORDERED: Heparin 5000 units/ml inj SUBQ SCH (09:00)
[2017-10-08 09:20] LABS: INR 2.5 (0.9-1.1)
[2017-10-08] MEDS: Pantoprazole Inj IVP SCH (09:29)
[2017-10-08] MEDS: Ketotifen Fumarate 0.035% 5ml BOTH EYES SCH (09:29)
[2017-10-08] MEDS ORDERED: Iothalamate Meglumine 60% 30ML INJ ONE (10:42)
--- NOTE | 2017-10-08 10:54 | Pre-Procedure Note/Attestation ---
Pre-Procedure Note/Attestation Complete Prior to Procedure Planned Procedure: not applicable Procedure Narrative: ercp Indications for Procedure Pre-Operative Diagnosis: elevated lfts CBD sludge Attestation I attest that I discussed the nature of the procedure; its benefits; risks and complications; and alternatives (and the risks and benefits of such alternatives ), prior to the procedure, with the patient (or the patient's legal tax representative). I attest that, if there was a reasonable possibility of needing a blood transfusion, the patient (or the patient's legal tax representative) was given the [facility] standardized written summary, pursuant to the Tristan Linette Blood Safety Act ([place] Health and Safety Code # 1645, as amended). I attest that I re-evaluated the patient just prior to the surgery and that there has been no change in the patient's H&P, except as documented below: KIT GONZALEZ Oct 08, 2017 10:54
--- NOTE | 2017-10-08 11:01 | Nephrology Progress Note ---
Assessment/Plan Problem List: (1) ARDS (adult respiratory distress syndrome) (2) Electrolyte imbalance (3) Thrombocytopenia Assessment Na wnl Platelets wnl (1) ARDS (adult respiratory distress syndrome) (2) Aspiration pneumonia (3) Protein-calorie malnutrition, severe (4) Diabetes mellitus (5) Anemia , aplastic by history (6) DM (7) UTI (8) Electrolyte imbalance (9) HTN (10) Depression (11) RA . Plan stable agree with diuresis due trach no set date k via NGT as needed water via NGT Adjust BP meds K and Phos supplement as needed Monitor renal parameters and urine output avoid nephrotoxics per orders discussed with RN Left ventricular ejection fraction estimated to be 55 %. Subjective ROS Limited/Unobtainable: Yes Objective Objective Last 24 Hour Vital Signs Date Time Temp Pulse Resp B/P (MAP) Pulse Ox O2 Delivery O2 Flow Rate FiO2 10/08/17 10:55 86 19 98 Mechanical Ventilator 40 10/08/17 10:46 84 21 98 Mechanical Ventilator 40 10/08/17 10:43 84 21 Mechanical Ventilator 40 10/08/17 10:30 90 28 40 10/08/17 10:00 89 33 127/61 97 Mechanical Ventilator 45 10/08/17 09:01 86 20 40 10/08/17 09:00 84 32 124/56 98 Mechanical Ventilator 45 10/08/17 08:00 45 10/08/17 08:00 98.5 81 32 124/57 97 Mechanical Ventilator 45 98.5 10/08/17 07:37 87 10/08/17 07:11 82 20 40 10/08/17 07:00 82 30 136/61 96 Mechanical Ventilator 45 10/08/17 06:00 80 31 134/5 96 Mechanical Ventilator 45 10/08/17 06:00 84 134/58 10/08/17 05:08 91 26 40 10/08/17 05:00 87 31 144/61 96 Mechanical Ventilator 45 10/08/17 04:00 99.0 87 31 132/58 97 Mechanical Ventilator 45 99.0 10/08/17 04:00 45 10/08/17 04:00 85 10/08/17 03:29 90 20 40 10/08/17 03:00 88 32 130/60 97 Mechanical Ventilator 45 10/08/17 02:00 87 32 134/62 97 Mechanical Ventilator 45 10/08/17 01:30 84 20 40 10/08/17 01:00 85 31 132/59 97 Mechanical Ventilator 45 10/08/17 00:00 99.2 83 31 137/59 97 Mechanical Ventilator 45 99.2 10/08/17 00:00 45 10/07/17 23:30 88 21 40 10/07/17 23:00 83 31 125/58 97 Mechanical Ventilator 45 10/07/17 22:13 83 151/104 10/07/17 22:00 84 31 121/63 97 Mechanical Ventilator 45 10/07/17 21:30 80 20 40 10/07/17 21:00 83 32 135/60 96 Mechanical Ventilator 45 10/07/17 20:00 45 10/07/17 20:00 99.1 83 32 129/60 96 Mechanical Ventilator 45 99.1 10/07/17 20:00 83 10/07/17 19:45 83 19 Mechanical Ventilator 40 10/07/17 19:30 81 19 40 10/07/17 19:00 79 20 130/64 97 Mechanical Ventilator 45 10/07/17 18:00 80 19 133/69 97 Mechanical Ventilator 45 10/07/17 17:21 88 22 40 10/07/17 17:00 85 21 132/61 95 Mechanical Ventilator 45 10/07/17 16:00 98.4 88 26 135/62 93 Mechanical Ventilator 45 98.4 10/07/17 16:00 85 10/07/17 16:00 45 10/07/17 15:00 89 24 135/67 95 Mechanical Ventilator 45 10/07/17 14:52 95 20 40 10/07/17 14:04 79 123/61 10/07/17 14:00 81 25 126/63 96 Mechanical Ventilator 45 10/07/17 13:20 81 19 40 10/07/17 13:00 83 28 123/61 95 Mechanical Ventilator 45 10/07/17 12:00 45 10/07/17 12:00 79 10/07/17 12:00 98.2 92 30 121/60 97 Mechanical Ventilator 45 98.2 10/07/17 11:06 94 19 40 Intake and Output 10/07/17 10/08/17 19:00 07:00 Intake Total 1600 ml 1500 ml Output Total 400 ml 421 ml Balance 1200 ml 1079 ml Intake Free Water 80 ml IV Total 1470 ml 1500 ml Tube Feeding 0 ml Other 50 ml Output Urine Total 400 ml 420 ml Stool Total 1 ml # Bowel Movements 1 5 Laboratory Tests 10/08/17 04:00: White Blood Count 6.8, Red Blood Count 2.92L, Hemoglobin 9.2L, Hematocrit 29.5L , Mean Corpuscular Volume 101H, Mean Corpuscular Hemoglobin 31.7H, Mean Corpuscular Hemoglobin Concent 31.4L, Red Cell Distribution Width 17.6H, Platelet Count 150, Mean Platelet Volume 9.4, Neutrophils (%) (Auto) 76.6H, Lymphocytes (%) (Auto) 6.8L, Monocytes (%) (Auto) 11.6H, Eosinophils (%) (Auto) 3.8H, Basophils (%) (Auto) 1.3, Sodium Level 143, Potassium Level 3.5, Chloride Level 110H, Carbon Dioxide Level 27, Anion Gap 6, Blood Urea Nitrogen 20H, Creatinine 0.5L, Estimat Glomerular Filtration Rate , Glucose Level 86, Calcium Level 7.7L, Total Bilirubin 9.1H, Direct Bilirubin 7.3H, Aspartate Amino Transf (AST/SGOT) 60H, Alanine Aminotransferase (ALT/SGPT) 31, Alkaline Phosphatase 854H, Total Protein 5.8L, Albumin 1.4L, Globulin 4.4, Albumin/Globulin Ratio 0.3L 10/08/17 08:15: Prothrombin Time 26.8H, Prothromb Time International Ratio 2.5H, Activated Partial Thromboplast Time 41H 10/08/17 09:50: Ammonia 32, Thyroid Stimulating Hormone (TSH) 3.486 Height (Feet): 5 Height (Inches): 5.00 Weight (Pounds): 115 General Appearance: no apparent distress Respiratory/Chest: decreased breath sounds Abdomen: distended Objective no change YAEL HANSEN Oct 08, 2017 11:01
[2017-10-08] MEDS ORDERED: NS 500ML IV ONE (11:05)
[2017-10-08] MEDS ORDERED: Albuterol ud Inhalation ONE (11:32)
--- NOTE | 2017-10-08 11:32 | Infectious Diseases Prog Note ---
Assessment/Plan Assessment/Plan The patient is a 76-year-old female w Fever, low grade, intermittent; resolved- ? persistent cholangitis as increased LFTs again -u.a no pyuria, ucx 20-30k C. albicans (colonizer) -CXR 10/04 : Interstitial and airspace opacities are again present -Bcx 10/03 NTD Leukocytosis , resolved- likely cholangitis -Cdiff neg -09/22 sp cx C.a lbicans, Bcx Neg -u/a wbc 10-15, nit neg, leuk +2; ucx >100k C. albicans -Fungal sp cx p Community-acquired vs healthcare-associated pneumonia, s/p RX (the patient has been recently hospitalized in [facility]). -now ARDS- r/o fungal PNA; worsening infiltrates- ?etiology - has received prolonged abx tx and empiric fungal tx; fungal serologies and cx pending to date -CT chest 10/07: Extensive diffuse bilateral pulmonary parenchymal disease, slightly worse than on prior exam of 09/23/2017. Main differential considerations include pneumonia, ARDS, pulmonary edema, among multiple other possibilities. Bilateral moderate to large pleural effusions, slightly increased in size from 09/23/2017. Nasogastric and endotracheal tubes in good position. Evidence of generalized anasarca, with diffuse subcutaneous soft tissue edema. - cxray 09/26 : no changes -CT chest 09/23: Diffuse extensive pulmonary parenchymal disease, with dense consolidation interspersed with groundglass opacities. Appearance nonspecific, possibilities include pulmonary edema, pneumonia, ARDS, hemorrhage. Bilateral pleural effusions, left greater than right. Diffuse edema of the subcutaneous fat, Multiple small thyroid nodules. All apparently under 1 cm, no further follow-up necessary. Degenerative changes of the shoulders 09/19 xray : Unchanged diffuse interstitial and airspace edema, -CrAg serum, U legionell ag neg; Asp ag, Cocci, fungitell p Probable influenza despite of negative influenza screening test, s/p Rx Abnormal liver function tests, ALP>>> AST -2ry to sludged CBD ,cholangitis, obstruction on CBD; AST/ALT normal now, ALP improved but now worsening again -CT abd/p 10/07: Anasarca, also previously described, currently similar except for increased size of bilateral pleural fluid described on chest CT. Gallbladder wall edema, probably a manifestation of anasarca, although acute cholecystitis not excludable. Note that similar findings were seen on the previous study, which was followed by a negative HIDA scan. Endometrial biliary stent now present. Mild central intrahepatic biliary ductal dilatation despite this. Low-attenuation areas in the spleen, as described. Equivocal clinically evident previously in retrospect that much more conspicuous currently, probably due to less image artifact on the current study. These are nonspecific, could represent cysts, infarcts, areas of inflammation, much less likely neoplasm. Satisfactory position of nasogastric tube. 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 Nonspecific inflammatory changes surrounding the hips. Right hip region lipoma -s/p ERCP with stent placement 10/01 -EUS 09/30: 1. Dilated common bile duct with lots of sludge in the distal common bile duct, most probably explanation for abnormal liver function tests. 2. Large ascites -Abd US 09/29: Cholelithiasis, better demonstrated than on prior exam. Thickened gallbladder wall could indicate acute cholecystitis. However, gallbladder wall thickening also evident on prior study of 09/19/2017, after which a hepatobiliary scan was negative, so suspect this is more likely due to hemodynamic derangements given presence of ascites and pleural fluid. Extrahepatic biliary ductal dilatation, equivocally slightly increased from 2017. Downstream obstruction not excludable. Coarsened hepatic echotexture, consistent with hepatocellular disease, nonspecific as regards etiology. Equivocal hepatic surface micronodularity, could indicate early cirrhotic changes. -HIDA scan: Negative for evidence of cystic duct obstruction/acute cholecystitis. Common bile duct is demonstrated be patent, but emptying into the duodenum is delayed, not seen until 2 hours. Significance of this is uncertain. MRCP or CT scanning may be useful to clarify -CT abd/p 09/23: Evidence of anasarca, with diffuse edema subcutaneous and mesenteric fat, bilateral pleural effusions, possible pulmonary edema, trace ascites. Densities within the gallbladder, probably reflecting tiny gallstones, although these are not identifiable on recent ultrasound. Gallbladder wall edema is probably a manifestation of anasarca, as recent hepatobiliary scan was negative for acute cholecystitis. Old ununited fracture deformities of the right pelvis. Bilateral chronic appearing hip dislocations Ultrasound of the abdomen : Gallbladder sludge. No definite stones. 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 -R/o HIT. Abx and protonix could be also be contributors. VDRF / ARDS HTN GERD History of auditory hallucination. Depression. Anemia. Rheumatoid arthritis. History of gastritis. PLAN: -Continue Micafungin #9/10 for cholangitis and Ertapenem #5/7 given low grade fevers and rise in LFts, concern for persistent cholangitis. 10/02 SP Amikacin #10 09/30 SP Flagyl #8 09/25 sp Fluconazole #3 (held due to rise ALP) 09/23 SP Meropenem #5, PO Vanco #2 09/21 SP tamiflu #10 -f/u Repeat cultures -f/u Asp ag, fungitell, Cocci ab, fungal sp cx (called lab for f/u on these tests; was told they are still pending and they will call [facility] for an update ). -For ECRP today Monitor CBC.; Trend WBC Monitor BMP.; Trend LFTs Monitor chest x-ray -GI, heme onc f/u Subjective Allergies: Coded Allergies: No Known Allergies (Verified , 11/18/08) Subjective afebrile no leukocytosis for ERCP today Objective Vital Signs Last 24 Hour Vital Signs Date Time Temp Pulse Resp B/P (MAP) Pulse Ox O2 Delivery O2 Flow Rate FiO2 10/08/17 10:55 86 19 98 Mechanical Ventilator 40 10/08/17 10:46 84 21 98 Mechanical Ventilator 40 10/08/17 10:43 84 21 Mechanical Ventilator 40 10/08/17 10:30 90 28 40 10/08/17 10:00 89 33 127/61 97 Mechanical Ventilator 45 10/08/17 09:01 86 20 40 10/08/17 09:00 84 32 124/56 98 Mechanical Ventilator 45 10/08/17 08:00 45 10/08/17 08:00 98.5 81 32 124/57 97 Mechanical Ventilator 45 98.5 10/08/17 07:37 87 10/08/17 07:11 82 20 40 10/08/17 07:00 82 30 136/61 96 Mechanical Ventilator 45 10/08/17 06:00 80 31 134/5 96 Mechanical Ventilator 45 10/08/17 06:00 84 134/58 10/08/17 05:08 91 26 40 10/08/17 05:00 87 31 144/61 96 Mechanical Ventilator 45 10/08/17 04:00 99.0 87 31 132/58 97 Mechanical Ventilator 45 99.0 10/08/17 04:00 45 10/08/17 04:00 85 10/08/17 03:29 90 20 40 10/08/17 03:00 88 32 130/60 97 Mechanical Ventilator 45 10/08/17 02:00 87 32 134/62 97 Mechanical Ventilator 45 10/08/17 01:30 84 20 40 10/08/17 01:00 85 31 132/59 97 Mechanical Ventilator 45 10/08/17 00:00 99.2 83 31 137/59 97 Mechanical Ventilator 45 99.2 10/08/17 00:00 45 10/07/17 23:30 88 21 40 10/07/17 23:00 83 31 125/58 97 Mechanical Ventilator 45 10/07/17 22:13 83 151/104 10/07/17 22:00 84 31 121/63 97 Mechanical Ventilator 45 10/07/17 21:30 80 20 40 10/07/17 21:00 83 32 135/60 96 Mechanical Ventilator 45 10/07/17 20:00 45 10/07/17 20:00 99.1 83 32 129/60 96 Mechanical Ventilator 45 99.1 10/07/17 20:00 83 10/07/17 19:45 83 19 Mechanical Ventilator 40 10/07/17 19:30 81 19 40 10/07/17 19:00 79 20 130/64 97 Mechanical Ventilator 45 10/07/17 18:00 80 19 133/69 97 Mechanical Ventilator 45 10/07/17 17:21 88 22 40 10/07/17 17:00 85 21 132/61 95 Mechanical Ventilator 45 10/07/17 16:00 98.4 88 26 135/62 93 Mechanical Ventilator 45 98.4 10/07/17 16:00 85 10/07/17 16:00 45 10/07/17 15:00 89 24 135/67 95 Mechanical Ventilator 45 10/07/17 14:52 95 20 40 10/07/17 14:04 79 123/61 10/07/17 14:00 81 25 126/63 96 Mechanical Ventilator 45 10/07/17 13:20 81 19 40 10/07/17 13:00 83 28 123/61 95 Mechanical Ventilator 45 10/07/17 12:00 45 10/07/17 12:00 79 10/07/17 12:00 98.2 92 30 121/60 97 Mechanical Ventilator 45 98.2 Height (Feet): 5 Height (Inches): 5.00 Weight (Pounds): 115 Objective General Appearance: lethargic, thin EENT: normal ENT inspection Neck: non-tender, normal alignment, supple Cardiovascular: normal peripheral pulses, normal rate, regular rhythm, no gallop/murmur, no JVD Respiratory/Chest: Mechanical vent; respiratory distress, crackles/rales, rhonchi - bilaterally, expiratory wheezing Abdomen: normal bowel sounds, non tender, soft, no organomegaly, no mass Skin: normal pigmentation, warm/dry Laboratory Tests Test 10/08/17 04:00 10/08/17 08:15 10/08/17 09:50 White Blood Count 6.8 K/UL (4.8-10.8) Red Blood Count 2.92 M/UL (4.20-5.40) L Hemoglobin 9.2 G/DL (12.0-16.0) L Hematocrit 29.5 % (37.0-47.0) L Mean Corpuscular Volume 101 FL (80-99) H Mean Corpuscular Hemoglobin 31.7 PG (27.0-31.0) H Mean Corpuscular Hemoglobin Concent 31.4 G/DL (32.0-36.0) L Red Cell Distribution Width 17.6 % (11.6-14.8) H Platelet Count 150 K/UL (150-450) Mean Platelet Volume 9.4 FL (6.5-10.1) Neutrophils (%) (Auto) 76.6 % (45.0-75.0) H Lymphocytes (%) (Auto) 6.8 % (20.0-45.0) L Monocytes (%) (Auto) 11.6 % (1.0-10.0) H Eosinophils (%) (Auto) 3.8 % (0.0-3.0) H Basophils (%) (Auto) 1.3 % (0.0-2.0) Sodium Level 143 MMOL/L (136-145) Potassium Level 3.5 MMOL/L (3.5-5.1) Chloride Level 110 MMOL/L (98-107) H Carbon Dioxide Level 27 MMOL/L (21-32) Anion Gap 6 mmol/L (5-15) Blood Urea Nitrogen 20 mg/dL (7-18) H Creatinine 0.5 MG/DL (0.55-1.30) L Estimat Glomerular Filtration Rate mL/min (>60) Glucose Level 86 MG/DL (74-106) Calcium Level 7.7 MG/DL (8.5-10.1) L Total Bilirubin 9.1 MG/DL (0.2-1.0) H Direct Bilirubin 7.3 MG/DL (0.0-0.3) H Aspartate Amino Transf (AST/SGOT) 60 U/L (15-37) H Alanine Aminotransferase (ALT/SGPT) 31 U/L (12-78) Alkaline Phosphatase 854 U/L (46-116) H Total Protein 5.8 G/DL (6.4-8.2) L Albumin 1.4 G/DL (3.4-5.0) L Globulin 4.4 g/dL Albumin/Globulin Ratio 0.3 (1.0-2.7) L Prothrombin Time 26.8 SEC (9.30-11.50) H Prothromb Time International Ratio 2.5 (0.9-1.1) H Activated Partial Thromboplast Time 41 SEC (23-33) H Ammonia 32 umol/L (11-32) C-Reactive Protein, Quantitative 9.1 mg/dL (0.00-0.90) H Thyroid Stimulating Hormone (TSH) 3.486 uiU/mL (0.358-3.740) Current Medications Medications (Trade) Dose Ordered Sig/Hermes Route PRN Reason Start Time Stop Time Status Last Admin Dose Admin Acetaminophen (Tylenol) 650 mg EVERY 6 HOURS PRN NG Fever/Headache/Mild Pain 09/13/17 20:45 10/13/17 20:44 10/03/17 12:25 Albuterol/ Ipratropium (Albuterol/ Ipratropium) 3 ml Q4H PRN HHN SHORTNESS OF BREATH 10/04/17 10:00 10/09/17 09:59 10/08/17 10:38 Clonidine HCl (Catapres Tab) 0.1 mg Q4H PRN ORAL SBP>160 UNRELIEVED BY HYDRALAZ 09/16/17 16:45 10/15/17 16:59 Dextrose (Dextrose 50%) STAT PRN IV Hypoglycemia 09/13/17 15:00 10/13/17 14:59 Diltiazem HCl (Cardizem) 30 mg EVERY 8 HOURS NG 10/04/17 14:00 11/03/17 13:59 10/07/17 22:13 Ertapenem 1 gm/ Sodium Chloride 110 ml @ 220 mls/hr Q24H IVPB 10/04/17 12:00 10/11/17 11:59 10/07/17 11:31 Furosemide (Lasix) 40 mg EVERY 12 HOURS IV 10/08/17 09:00 11/07/17 08:59 10/08/17 09:29 Heparin Sodium (Porcine) (Heparin 5000 units/ml) 5,000 units EVERY 12 HOURS SUBQ 10/08/17 09:00 11/07/17 08:59 Insulin Aspart (NovoLOG) EVERY 6 HOURS SUBQ 09/17/17 12:00 10/17/17 11:59 10/07/17 17:13 Ketotifen Fumarate (Zatidor) 1 drop DAILY BOTH EYES 09/26/17 09:00 10/25/17 08:59 10/08/17 09:29 Micafungin Sodium 100 mg/Dextrose 110 ml @ 110 mls/hr Q24H IVPB 10/07/17 13:00 10/14/17 12:59 10/07/17 12:58 Pantoprazole (Protonix) 40 mg DAILY IVP 10/02/17 09:00 11/01/17 08:59 10/08/17 09:29 Polyethylene Glycol (Miralax) 17 gm BEDTIME ORAL 09/14/17 21:00 10/14/17 20:59 10/06/17 21:22 Madelyn Frey M.D. Oct 08, 2017 11:32
[2017-10-08] MEDS ORDERED: Albuterol 90mcg Inhaler 8gm INH ONE (11:34)
--- NOTE | 2017-10-08 12:09 | Internal Med Progress Note ---
Subjective Date of Service: Oct 08, 2017 Physician Name Noah Bowens Attending Physician Jesus Barahona MD Current Medications Medications (Trade) Dose Ordered Sig/Hermes Route PRN Reason Start Time Stop Time Status Last Admin Dose Admin Acetaminophen (Tylenol) 650 mg EVERY 6 HOURS PRN NG Fever/Headache/Mild Pain 09/13/17 20:45 10/13/17 20:44 10/03/17 12:25 Albuterol/ Ipratropium (Albuterol/ Ipratropium) 3 ml Q4H PRN HHN SHORTNESS OF BREATH 10/04/17 10:00 10/09/17 09:59 10/08/17 10:38 Clonidine HCl (Catapres Tab) 0.1 mg Q4H PRN ORAL SBP>160 UNRELIEVED BY HYDRALAZ 09/16/17 16:45 10/15/17 16:59 Dextrose (Dextrose 50%) STAT PRN IV Hypoglycemia 09/13/17 15:00 10/13/17 14:59 Diltiazem HCl (Cardizem) 30 mg EVERY 8 HOURS NG 10/04/17 14:00 11/03/17 13:59 10/07/17 22:13 Ertapenem 1 gm/ Sodium Chloride 110 ml @ 220 mls/hr Q24H IVPB 10/04/17 12:00 10/11/17 11:59 10/07/17 11:31 Furosemide (Lasix) 40 mg EVERY 12 HOURS IV 10/08/17 09:00 11/07/17 08:59 10/08/17 09:29 Heparin Sodium (Porcine) (Heparin 5000 units/ml) 5,000 units EVERY 12 HOURS SUBQ 10/08/17 09:00 11/07/17 08:59 Insulin Aspart (NovoLOG) EVERY 6 HOURS SUBQ 09/17/17 12:00 10/17/17 11:59 10/07/17 17:13 Ketotifen Fumarate (Zatidor) 1 drop DAILY BOTH EYES 09/26/17 09:00 10/25/17 08:59 10/08/17 09:29 Micafungin Sodium 100 mg/Dextrose 110 ml @ 110 mls/hr Q24H IVPB 10/07/17 13:00 10/14/17 12:59 10/07/17 12:58 Pantoprazole (Protonix) 40 mg DAILY IVP 10/02/17 09:00 11/01/17 08:59 10/08/17 09:29 Polyethylene Glycol (Miralax) 17 gm BEDTIME ORAL 09/14/17 21:00 10/14/17 20:59 10/06/17 21:22 Allergies: Coded Allergies: No Known Allergies (Verified , 11/18/08) ROS Limited/Unobtainable: Yes Subjective 76 YO F admitted with Shortness of breath, now respiratory failure. Intubated and sedated. Cover for Internal Med-Dr. aBrahona. ICU . S/P ERCP 10/07/17 Objective Last Vital Signs Date Time Temp Pulse Resp B/P (MAP) Pulse Ox O2 Delivery O2 Flow Rate FiO2 10/08/17 10:55 86 19 98 Mechanical Ventilator 40 10/08/17 10:00 127/61 10/08/17 08:00 98.5 98.5 10/04/17 04:00 Laboratory Tests Test 10/08/17 04:00 10/08/17 08:15 10/08/17 09:50 White Blood Count 6.8 K/UL (4.8-10.8) Red Blood Count 2.92 M/UL (4.20-5.40) L Hemoglobin 9.2 G/DL (12.0-16.0) L Hematocrit 29.5 % (37.0-47.0) L Mean Corpuscular Volume 101 FL (80-99) H Mean Corpuscular Hemoglobin 31.7 PG (27.0-31.0) H Mean Corpuscular Hemoglobin Concent 31.4 G/DL (32.0-36.0) L Red Cell Distribution Width 17.6 % (11.6-14.8) H Platelet Count 150 K/UL (150-450) Mean Platelet Volume 9.4 FL (6.5-10.1) Neutrophils (%) (Auto) 76.6 % (45.0-75.0) H Lymphocytes (%) (Auto) 6.8 % (20.0-45.0) L Monocytes (%) (Auto) 11.6 % (1.0-10.0) H Eosinophils (%) (Auto) 3.8 % (0.0-3.0) H Basophils (%) (Auto) 1.3 % (0.0-2.0) Sodium Level 143 MMOL/L (136-145) Potassium Level 3.5 MMOL/L (3.5-5.1) Chloride Level 110 MMOL/L (98-107) H Carbon Dioxide Level 27 MMOL/L (21-32) Anion Gap 6 mmol/L (5-15) Blood Urea Nitrogen 20 mg/dL (7-18) H Creatinine 0.5 MG/DL (0.55-1.30) L Estimat Glomerular Filtration Rate mL/min (>60) Glucose Level 86 MG/DL (74-106) Calcium Level 7.7 MG/DL (8.5-10.1) L Total Bilirubin 9.1 MG/DL (0.2-1.0) H Direct Bilirubin 7.3 MG/DL (0.0-0.3) H Aspartate Amino Transf (AST/SGOT) 60 U/L (15-37) H Alanine Aminotransferase (ALT/SGPT) 31 U/L (12-78) Alkaline Phosphatase 854 U/L (46-116) H Total Protein 5.8 G/DL (6.4-8.2) L Albumin 1.4 G/DL (3.4-5.0) L Globulin 4.4 g/dL Albumin/Globulin Ratio 0.3 (1.0-2.7) L Prothrombin Time 26.8 SEC (9.30-11.50) H Prothromb Time International Ratio 2.5 (0.9-1.1) H Activated Partial Thromboplast Time 41 SEC (23-33) H Ammonia 32 umol/L (11-32) C-Reactive Protein, Quantitative 9.1 mg/dL (0.00-0.90) H Thyroid Stimulating Hormone (TSH) 3.486 uiU/mL (0.358-3.740) Intake and Output 10/07/17 10/08/17 19:00 07:00 Intake Total 1600 ml 1500 ml Output Total 400 ml 421 ml Balance 1200 ml 1079 ml Intake Free Water 80 ml IV Total 1470 ml 1500 ml Tube Feeding 0 ml Other 50 ml Output Urine Total 400 ml 420 ml Stool Total 1 ml # Bowel Movements 1 5 Objective General Appearance: lethargic, thin EENT: normal ENT inspection Neck: non-tender, normal alignment, supple Cardiovascular: normal peripheral pulses, normal rate, regular rhythm, no gallop/murmur, no JVD Respiratory/Chest: Mechanical vent; respiratory distress, crackles/rales, rhonchi - bilaterally, expiratory wheezing Abdomen: normal bowel sounds, non tender, soft, no organomegaly, no mass Skin: normal pigmentation, warm/dry Assessment/Plan Problem List: (1) HTN (hypertension) Assessment & Plan: Currently hypotensive. (2) Arthritis, rheumatoid (3) Parkinsons disease (4) Aplastic anemia (5) GERD (gastroesophageal reflux disease) (6) Respiratory failure Assessment & Plan: Tracheostomy and broncholsopy scheduled this week-see surgery note. Cont vent per pulmonary (7) Pneumonia (8) Dyspnea (9) Sepsis Assessment & Plan: Blood culture neg. Continue Amikacin, micafungin and flagyl per ID (10) ARDS (adult respiratory distress syndrome) Assessment & Plan: See pulmonary note (11) UTI (urinary tract infection) Assessment & Plan: E.Coli. Continue abx per ID (12) Anemia Assessment & Plan: S/P Transfusion 2 units PRBC (13) Diabetes mellitus, type II Assessment & Plan: Continue novolog sliding scale (14) Leukocytosis Assessment & Plan: Worsening. See ID note. Start amikacin and fluconazole (15) Thrombocytopenia (16) Gallbladder sludge Assessment & Plan: s/P ERCP 10/01 & 10/07/17. Status: not improved NOAH BOWENS Oct 08, 2017 12:08
--- NOTE | 2017-10-08 12:14 | Endoscopy Procedure Note ---
Endoscopy Procedure Note General Indication for Procedure: juandice Procedures Performed: ERCP Operative Findings/Diagnosis: stent placement Specimen: none Pt Tolerated Procedure Well: Yes Estimated Blood Loss: none Anesthesia Anesthesiologist: carlee Anesthesia: general Inserted Devices Implant(s) used?: No GI Core Measures 50 yrs or older w/o bx or poly: Not Applicable 10yrs. F/U not recommended: Not Applicable KIT GONZALEZ Oct 08, 2017 12:14
--- NOTE | 2017-10-08 12:30 | Immediate Post-Op Evaluation ---
Immediate Post-Op Evalulation Immediate Post-Op Evalulation Procedure: ercp Date of Evaluation: Oct 08, 2017 Time of Evaluation: 12:28 IV Fluids: 300 Blood Pressure Systolic: 145 Blood Pressure Diastolic: 80 Pulse Rate: 110 Respiratory Rate: 20 O2 Sat by Pulse Oximetry: 100 Nausea: No Vomiting: No Complications none Patient Status: reacts, ventilated - pt is on 100% fio2 18 tv Hydration Status: adequate Drug: none RACHNA LOEPZ CRNA Oct 08, 2017 12:30
--- NOTE | 2017-10-08 12:35 | Diagnostic Imaging Report ---
Indication: Abnormal liver function Technique: Intraoperative images during ERCP Comparison: none Findings: Intraoperative images demonstrate faint opacification of the common bile duct, and placement of a new plastic endobiliary stent. What may be a previous malpositioned biliary stent is seen to the left of the endoscope Impression: Intraoperative imaging, as described
--- NOTE | 2017-10-08 12:50 | Diagnostic Imaging Report ---
Indication: Dyspnea post ERCP Technique: One view of the chest Comparison: 10/06/2017 Findings: Stable satisfactory position of endotracheal tube. Nasogastric tube has been removed. Extensive bilateral interstitial and alveolar parenchymal disease persists and is unchanged. Normal cardiomediastinal silhouette Impression: Interim nasogastric tube removal. Otherwise unchanged over 2 days, findings as above
[2017-10-08] MEDS: Ertapenem 1 GM in NS 110 ML IVPB SCH (13:36)
[2017-10-08] MEDS: Micafungin 100 MG in D5W 110 ML IVPB SCH (14:40)
--- NOTE | 2017-10-08 15:39 | Cardiac Electrophysiology PN ---
Assessment/Plan Assessment/Plan 1. Respiratory failure, due to underlying ARDS , pneumonia. Intubated on the vent. Already ruled out for myocardial infarction. Now on 45% Fio2 with PEEP of 5. Tracheostomy and Bronchoscopy pending family consent 2. Left bundle-branch block. No evidence of advanced heart block. 3. HTN and diastolic dysfunction. On Cardizem 30 NG q8 hr. Echo EF 55% 4. Hypernatremia and Azotemia. F/U per Dr. Mayer 5. Pneumonia and sepsis on IV antibiotics by Dr. Hunter. 6. Psychiatric disorder. 7. Anasarca. 3rd spacing. 8. Anemia with Hb 6.6 s/p PRBC. CT chest abdomen and pelvis without contrast no acute finding S/P EGD by Dr Walton 9. Severe thrombocytopenia. S/P platelet transfusion 10. Abnormal LFT, Biliary obstruction, possible cholangitis. S/P ERCP. CBD sludge. S/P repeat ERCP and stent by Dr Isabelle MARTINEZ RN Subjective Subjective Intubated on Vent in ICU. No SVT or VT overnight. RN at bedside.Had repeat ERCP and stent by Dr Walton Objective Last 24 Hour Vital Signs Date Time Temp Pulse Resp B/P (MAP) Pulse Ox O2 Delivery O2 Flow Rate FiO2 10/08/17 15:00 83 19 60 10/08/17 15:00 84 18 117/56 100 Mechanical Ventilator 60 10/08/17 14:00 85 18 119/48 99 Mechanical Ventilator 60 10/08/17 13:10 60 10/08/17 13:00 97.8 92 26 133/66 98 Mechanical Ventilator 60 97.8 10/08/17 12:40 110 20 100 10/08/17 12:38 110 27 100 10/08/17 12:10 112 16 149/58 99 Mechanical Ventilator 40 10/08/17 12:05 111 10/08/17 12:00 40 10/08/17 10:55 86 19 98 Mechanical Ventilator 40 10/08/17 10:46 84 21 98 Mechanical Ventilator 40 10/08/17 10:43 84 21 Mechanical Ventilator 40 10/08/17 10:30 90 28 40 10/08/17 10:00 89 33 127/61 97 Mechanical Ventilator 45 10/08/17 09:01 86 20 40 10/08/17 09:00 84 32 124/56 98 Mechanical Ventilator 45 10/08/17 08:00 45 10/08/17 08:00 98.5 81 32 124/57 97 Mechanical Ventilator 45 98.5 10/08/17 07:37 87 10/08/17 07:11 82 20 40 10/08/17 07:00 82 30 136/61 96 Mechanical Ventilator 45 10/08/17 06:00 80 31 134/5 96 Mechanical Ventilator 45 10/08/17 06:00 84 134/58 10/08/17 05:08 91 26 40 10/08/17 05:00 87 31 144/61 96 Mechanical Ventilator 45 10/08/17 04:00 99.0 87 31 132/58 97 Mechanical Ventilator 45 99.0 10/08/17 04:00 45 10/08/17 04:00 85 10/08/17 03:29 90 20 40 10/08/17 03:00 88 32 130/60 97 Mechanical Ventilator 45 10/08/17 02:00 87 32 134/62 97 Mechanical Ventilator 45 10/08/17 01:30 84 20 40 10/08/17 01:00 85 31 132/59 97 Mechanical Ventilator 45 10/08/17 00:00 99.2 83 31 137/59 97 Mechanical Ventilator 45 99.2 10/08/17 00:00 45 10/07/17 23:30 88 21 40 10/07/17 23:00 83 31 125/58 97 Mechanical Ventilator 45 10/07/17 22:13 83 151/104 10/07/17 22:00 84 31 121/63 97 Mechanical Ventilator 45 10/07/17 21:30 80 20 40 10/07/17 21:00 83 32 135/60 96 Mechanical Ventilator 45 10/07/17 20:00 45 10/07/17 20:00 99.1 83 32 129/60 96 Mechanical Ventilator 45 99.1 10/07/17 20:00 83 10/07/17 19:45 83 19 Mechanical Ventilator 40 10/07/17 19:30 81 19 40 10/07/17 19:00 79 20 130/64 97 Mechanical Ventilator 45 10/07/17 18:00 80 19 133/69 97 Mechanical Ventilator 45 10/07/17 17:21 88 22 40 10/07/17 17:00 85 21 132/61 95 Mechanical Ventilator 45 10/07/17 16:00 98.4 88 26 135/62 93 Mechanical Ventilator 45 98.4 10/07/17 16:00 85 10/07/17 16:00 45 Intake and Output 10/07/17 10/08/17 19:00 07:00 Intake Total 1600 ml 1500 ml Output Total 400 ml 421 ml Balance 1200 ml 1079 ml Intake Free Water 80 ml IV Total 1470 ml 1500 ml Tube Feeding 0 ml Other 50 ml Output Urine Total 400 ml 420 ml Stool Total 1 ml # Bowel Movements 1 5 Laboratory Tests Test 10/08/17 04:00 10/08/17 08:15 10/08/17 09:50 White Blood Count 6.8 K/UL (4.8-10.8) Red Blood Count 2.92 M/UL (4.20-5.40) L Hemoglobin 9.2 G/DL (12.0-16.0) L Hematocrit 29.5 % (37.0-47.0) L Mean Corpuscular Volume 101 FL (80-99) H Mean Corpuscular Hemoglobin 31.7 PG (27.0-31.0) H Mean Corpuscular Hemoglobin Concent 31.4 G/DL (32.0-36.0) L Red Cell Distribution Width 17.6 % (11.6-14.8) H Platelet Count 150 K/UL (150-450) Mean Platelet Volume 9.4 FL (6.5-10.1) Neutrophils (%) (Auto) 76.6 % (45.0-75.0) H Lymphocytes (%) (Auto) 6.8 % (20.0-45.0) L Monocytes (%) (Auto) 11.6 % (1.0-10.0) H Eosinophils (%) (Auto) 3.8 % (0.0-3.0) H Basophils (%) (Auto) 1.3 % (0.0-2.0) Sodium Level 143 MMOL/L (136-145) Potassium Level 3.5 MMOL/L (3.5-5.1) Chloride Level 110 MMOL/L (98-107) H Carbon Dioxide Level 27 MMOL/L (21-32) Anion Gap 6 mmol/L (5-15) Blood Urea Nitrogen 20 mg/dL (7-18) H Creatinine 0.5 MG/DL (0.55-1.30) L Estimat Glomerular Filtration Rate mL/min (>60) Glucose Level 86 MG/DL (74-106) Calcium Level 7.7 MG/DL (8.5-10.1) L Total Bilirubin 9.1 MG/DL (0.2-1.0) H Direct Bilirubin 7.3 MG/DL (0.0-0.3) H Aspartate Amino Transf (AST/SGOT) 60 U/L (15-37) H Alanine Aminotransferase (ALT/SGPT) 31 U/L (12-78) Alkaline Phosphatase 854 U/L (46-116) H Total Protein 5.8 G/DL (6.4-8.2) L Albumin 1.4 G/DL (3.4-5.0) L Globulin 4.4 g/dL Albumin/Globulin Ratio 0.3 (1.0-2.7) L Prothrombin Time 26.8 SEC (9.30-11.50) H Prothromb Time International Ratio 2.5 (0.9-1.1) H Activated Partial Thromboplast Time 41 SEC (23-33) H Ammonia 32 umol/L (11-32) C-Reactive Protein, Quantitative 9.1 mg/dL (0.00-0.90) H Thyroid Stimulating Hormone (TSH) 3.486 uiU/mL (0.358-3.740) Objective HEAD AND NECK: Orally intubated. LUNGS: Coarse rhonchi bilaterally CARDIOVASCULAR: Tachy S1 and S2.No murmur ABDOMEN: Soft. EXTREMITIES: 1+ pitting edema. Charlie Darnell MD Oct 08, 2017 15:39
--- NOTE | 2017-10-08 17:10 | Diagnostic Imaging Report ---
. Indication: Status post nasogastric tube placement Technique: Supine view of the abdomen Comparison: 09/12/2017 Findings: There is a nasogastric tube in place, tip projected at expected level of the gastric antrum. There is an endobiliary stent now present. Marked pelvic and hip deformities are again noted. Bowel gas pattern is unremarkable. Central position of small bowel loops may be related to the mild ascites demonstrated on recent CT. No gaseous distention of large or small bowel. Extensive pulmonary parenchymal disease is demonstrated Impression: Satisfactory nasogastric intubation. Patient's nurse notified at the time of interpretation Other findings as noted
--- NOTE | 2017-10-08 19:45 | Procedure Note ---
DATE OF PROCEDURE: 10/08/2017 SURGEON: Franklin Walton M.D. REFERRING PHYSICIAN: Yair Encinas M.D. PROCEDURE: ERCP with stent placement. ANESTHESIA: Per [employer]OLES[employer] ACCOUNT EXECUTIVE, Tory Lobato. INSTRUMENT: Olympus ERCP scope. INDICATION: Choledocholithiasis, jaundice, and cholangitis. The procedure, risks, benefits, and possible consequences, including hemorrhage, aspiration, perforation and infection, and alternative treatments, were explained to the patient/legal guardian by Dr. Franklin Walton and the patient/legal guardian understood and accepted these risks. DESCRIPTION OF PROCEDURE: After informed consent was obtained and the patient was adequately sedated, the ERCP scope was advanced from mouth into the second portion of duodenum. The procedure was done in the supine position given the patient was unstable to be in the prone position. Pancreatic stent was seen in place. Then, using a catheter, we tried to cannulate the common bile duct, which was not successful. During this time, the patient desaturated. We had to take the scope out. The patient was resuscitated with anesthesiologist giving breathing treatments and then when the patient was more stable, we went back again. At this time, we used a MiniTome. We were able to cannulate the common bile duct using a MiniTome. Initial cholangiogram showed common bile duct approximately about maybe 6 to 7 mm. Given the patient had elevated INR, we could not perform sphincterotomy. Then, over a guidewire, a 7-Mohawk 7 cm stent was successfully placed in the distal common bile duct. At this time, the scope was retrieved and procedure was terminated. SUMMARY OF FINDINGS: 1. Choledocholithiasis. 2. Status post endoscopic retrograde cholangiopancreatography and stent placement. RECOMMENDATIONS: The patient to be transferred back to the intensive care unit, monitor labs, place an NG tube, and start feeding later today. I want to thank Dr. Encinas for this kind referral. Franklin Walton M.D. DR: ROCHELLE JOB#: [id number] CC: Yair Encinas M.D.; Fax#: [phone]
--- NOTE | 2017-10-08 20:07 | General Progress Note ---
Assessment/Plan Problem List: (1) Arthritis, rheumatoid ICD Codes: M06.9 - Rheumatoid arthritis, unspecified SNOMED: 88253958 (2) Aspiration pneumonia ICD Codes: J69.0 - Pneumonitis due to inhalation of food and vomit SNOMED: 017319073 (3) Diabetes mellitus ICD Codes: E11.9 - Type 2 diabetes mellitus without complications SNOMED: 45622704 (4) ARDS (adult respiratory distress syndrome) ICD Codes: J80 - Acute respiratory distress syndrome SNOMED: 46487537 (5) Transaminitis ICD Codes: R74.0 - Nonspecific elevation of levels of transaminase and lactic acid dehydrogenase [LDH] SNOMED: 812476802, 127460448 (6) Dyspnea ICD Codes: R06.00 - Dyspnea, unspecified SNOMED: 423157238 (7) Parkinsons disease ICD Codes: G20 - Parkinson's disease SNOMED: 66954800 (8) Sepsis ICD Codes: A41.9 - Sepsis, unspecified organism SNOMED: 92669462 (9) GERD (gastroesophageal reflux disease) ICD Codes: K21.9 - Gastro-esophageal reflux disease without esophagitis SNOMED: 155865163 (10) Aplastic anemia ICD Codes: D61.9 - Aplastic anemia, unspecified SNOMED: 428979635 (11) Pneumonia ICD Codes: J18.9 - Pneumonia, unspecified organism SNOMED: 241703062 (12) HTN (hypertension) ICD Codes: I10 - Essential (primary) hypertension SNOMED: 17065959 Assessment/Plan Encephalopathy, agitation, psychotic disorder. -cont current meds -ativan prn Subjective Date patient seen: Oct 08, 2017 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: Reports: anxiety, depressed Allergies: Coded Allergies: No Known Allergies (Verified , 11/18/08) Subjective the pt is more alert Objective Last 24 Hour Vital Signs Date Time Temp Pulse Resp B/P (MAP) Pulse Ox O2 Delivery O2 Flow Rate FiO2 10/08/17 19:00 80 20 111/56 97 Mechanical Ventilator 40 10/08/17 18:00 78 19 113/64 95 Mechanical Ventilator 40 10/08/17 17:40 40 10/08/17 17:21 78 124/59 10/08/17 17:11 78 18 40 10/08/17 17:00 79 19 134/72 94 Mechanical Ventilator 40 10/08/17 16:32 81 10/08/17 16:00 97.8 75 18 124/59 100 Mechanical Ventilator 60 97.8 10/08/17 15:00 83 19 60 10/08/17 15:00 84 18 117/56 100 Mechanical Ventilator 60 10/08/17 14:00 85 18 119/48 99 Mechanical Ventilator 60 10/08/17 13:10 60 10/08/17 13:00 97.8 92 26 133/66 98 Mechanical Ventilator 60 97.8 10/08/17 12:40 110 20 100 10/08/17 12:38 110 27 100 10/08/17 12:10 112 16 149/58 99 Mechanical Ventilator 40 10/08/17 12:05 111 10/08/17 12:00 40 10/08/17 10:55 86 19 98 Mechanical Ventilator 40 10/08/17 10:46 84 21 98 Mechanical Ventilator 40 10/08/17 10:43 84 21 Mechanical Ventilator 40 10/08/17 10:30 90 28 40 10/08/17 10:00 89 33 127/61 97 Mechanical Ventilator 45 10/08/17 09:01 86 20 40 10/08/17 09:00 84 32 124/56 98 Mechanical Ventilator 45 10/08/17 08:00 45 10/08/17 08:00 98.5 81 32 124/57 97 Mechanical Ventilator 45 98.5 10/08/17 07:37 87 10/08/17 07:11 82 20 40 10/08/17 07:00 82 30 136/61 96 Mechanical Ventilator 45 10/08/17 06:00 80 31 134/5 96 Mechanical Ventilator 45 10/08/17 06:00 84 134/58 10/08/17 05:08 91 26 40 10/08/17 05:00 87 31 144/61 96 Mechanical Ventilator 45 10/08/17 04:00 99.0 87 31 132/58 97 Mechanical Ventilator 45 99.0 10/08/17 04:00 45 10/08/17 04:00 85 10/08/17 03:29 90 20 40 10/08/17 03:00 88 32 130/60 97 Mechanical Ventilator 45 10/08/17 02:00 87 32 134/62 97 Mechanical Ventilator 45 10/08/17 01:30 84 20 40 10/08/17 01:00 85 31 132/59 97 Mechanical Ventilator 45 10/08/17 00:00 99.2 83 31 137/59 97 Mechanical Ventilator 45 99.2 10/08/17 00:00 45 10/07/17 23:30 88 21 40 10/07/17 23:00 83 31 125/58 97 Mechanical Ventilator 45 10/07/17 22:13 83 151/104 10/07/17 22:00 84 31 121/63 97 Mechanical Ventilator 45 10/07/17 21:30 80 20 40 10/07/17 21:00 83 32 135/60 96 Mechanical Ventilator 45 Intake and Output 10/07/17 10/08/17 19:00 07:00 Intake Total 1600 ml 1500 ml Output Total 400 ml 421 ml Balance 1200 ml 1079 ml Intake Free Water 80 ml IV Total 1470 ml 1500 ml Tube Feeding 0 ml Other 50 ml Output Urine Total 400 ml 420 ml Stool Total 1 ml # Bowel Movements 1 5 Laboratory Tests 10/08/17 04:00: White Blood Count 6.8, Red Blood Count 2.92L, Hemoglobin 9.2L, Hematocrit 29.5L , Mean Corpuscular Volume 101H, Mean Corpuscular Hemoglobin 31.7H, Mean Corpuscular Hemoglobin Concent 31.4L, Red Cell Distribution Width 17.6H, Platelet Count 150, Mean Platelet Volume 9.4, Neutrophils (%) (Auto) 76.6H, Lymphocytes (%) (Auto) 6.8L, Monocytes (%) (Auto) 11.6H, Eosinophils (%) (Auto) 3.8H, Basophils (%) (Auto) 1.3, Sodium Level 143, Potassium Level 3.5, Chloride Level 110H, Carbon Dioxide Level 27, Anion Gap 6, Blood Urea Nitrogen 20H, Creatinine 0.5L, Estimat Glomerular Filtration Rate , Glucose Level 86, Calcium Level 7.7L, Total Bilirubin 9.1H, Direct Bilirubin 7.3H, Aspartate Amino Transf (AST/SGOT) 60H, Alanine Aminotransferase (ALT/SGPT) 31, Alkaline Phosphatase 854H, Total Protein 5.8L, Albumin 1.4L, Globulin 4.4, Albumin/Globulin Ratio 0.3L 10/08/17 08:15: Prothrombin Time 26.8H, Prothromb Time International Ratio 2.5H, Activated Partial Thromboplast Time 41H 10/08/17 09:50: Ammonia 32, C-Reactive Protein, Quantitative 9.1H, Thyroid Stimulating Hormone ( TSH) 3.486 Height (Feet): 5 Height (Inches): 5.00 Weight (Pounds): 115 Dary Nixon M.D. Oct 08, 2017 20:07
[2017-10-08] MEDS: Miralax 17gm pkt ORAL SCH (20:59)
--- NOTE | 2017-10-08 21:49 | General Progress Note ---
Assessment/Plan Assessment/Plan Assessment - Resp failure / ARDS / PNA - Abnormal LFT, Biliary obstruction - s/p biliary and pancreatic stent - Anemia with OB (+) stools - coagulopathy - Malnutrition - hypernatremia - AMS Recommendations - replace lytes - transfuse PRN - Elevate HOB - Vent care - Monitor labs - abx -follow LFT after stent Subjective Allergies: Coded Allergies: No Known Allergies (Verified , 11/18/08) Subjective Above noted seen earlier today s/p ERCP and stent placement Sphincterotomy and stone extraction not possible due to elevated INR Objective Last 24 Hour Vital Signs Date Time Temp Pulse Resp B/P (MAP) Pulse Ox O2 Delivery O2 Flow Rate FiO2 10/08/17 19:00 80 20 111/56 97 Mechanical Ventilator 40 10/08/17 18:00 78 19 113/64 95 Mechanical Ventilator 40 10/08/17 17:40 40 10/08/17 17:21 78 124/59 10/08/17 17:11 78 18 40 10/08/17 17:00 79 19 134/72 94 Mechanical Ventilator 40 10/08/17 16:32 81 10/08/17 16:00 97.8 75 18 124/59 100 Mechanical Ventilator 60 97.8 10/08/17 15:00 83 19 60 10/08/17 15:00 84 18 117/56 100 Mechanical Ventilator 60 10/08/17 14:00 85 18 119/48 99 Mechanical Ventilator 60 10/08/17 13:10 60 10/08/17 13:00 97.8 92 26 133/66 98 Mechanical Ventilator 60 97.8 10/08/17 12:40 110 20 100 10/08/17 12:38 110 27 100 10/08/17 12:10 112 16 149/58 99 Mechanical Ventilator 40 10/08/17 12:05 111 10/08/17 12:00 40 10/08/17 10:55 86 19 98 Mechanical Ventilator 40 10/08/17 10:46 84 21 98 Mechanical Ventilator 40 10/08/17 10:43 84 21 Mechanical Ventilator 40 10/08/17 10:30 90 28 40 10/08/17 10:00 89 33 127/61 97 Mechanical Ventilator 45 10/08/17 09:01 86 20 40 10/08/17 09:00 84 32 124/56 98 Mechanical Ventilator 45 10/08/17 08:00 45 10/08/17 08:00 98.5 81 32 124/57 97 Mechanical Ventilator 45 98.5 10/08/17 07:37 87 10/08/17 07:11 82 20 40 10/08/17 07:00 82 30 136/61 96 Mechanical Ventilator 45 10/08/17 06:00 80 31 134/5 96 Mechanical Ventilator 45 10/08/17 06:00 84 134/58 10/08/17 05:08 91 26 40 10/08/17 05:00 87 31 144/61 96 Mechanical Ventilator 45 10/08/17 04:00 99.0 87 31 132/58 97 Mechanical Ventilator 45 99.0 10/08/17 04:00 45 10/08/17 04:00 85 10/08/17 03:29 90 20 40 10/08/17 03:00 88 32 130/60 97 Mechanical Ventilator 45 10/08/17 02:00 87 32 134/62 97 Mechanical Ventilator 45 10/08/17 01:30 84 20 40 10/08/17 01:00 85 31 132/59 97 Mechanical Ventilator 45 10/08/17 00:00 99.2 83 31 137/59 97 Mechanical Ventilator 45 99.2 10/08/17 00:00 45 10/07/17 23:30 88 21 40 10/07/17 23:00 83 31 125/58 97 Mechanical Ventilator 45 10/07/17 22:13 83 151/104 10/07/17 22:00 84 31 121/63 97 Mechanical Ventilator 45 Intake and Output 10/07/17 10/08/17 19:00 07:00 Intake Total 1600 ml 1500 ml Output Total 400 ml 421 ml Balance 1200 ml 1079 ml Intake Free Water 80 ml IV Total 1470 ml 1500 ml Tube Feeding 0 ml Other 50 ml Output Urine Total 400 ml 420 ml Stool Total 1 ml # Bowel Movements 1 5 Laboratory Tests 10/08/17 04:00: White Blood Count 6.8, Red Blood Count 2.92L, Hemoglobin 9.2L, Hematocrit 29.5L , Mean Corpuscular Volume 101H, Mean Corpuscular Hemoglobin 31.7H, Mean Corpuscular Hemoglobin Concent 31.4L, Red Cell Distribution Width 17.6H, Platelet Count 150, Mean Platelet Volume 9.4, Neutrophils (%) (Auto) 76.6H, Lymphocytes (%) (Auto) 6.8L, Monocytes (%) (Auto) 11.6H, Eosinophils (%) (Auto) 3.8H, Basophils (%) (Auto) 1.3, Sodium Level 143, Potassium Level 3.5, Chloride Level 110H, Carbon Dioxide Level 27, Anion Gap 6, Blood Urea Nitrogen 20H, Creatinine 0.5L, Estimat Glomerular Filtration Rate , Glucose Level 86, Calcium Level 7.7L, Total Bilirubin 9.1H, Direct Bilirubin 7.3H, Aspartate Amino Transf (AST/SGOT) 60H, Alanine Aminotransferase (ALT/SGPT) 31, Alkaline Phosphatase 854H, Total Protein 5.8L, Albumin 1.4L, Globulin 4.4, Albumin/Globulin Ratio 0.3L 10/08/17 08:15: Prothrombin Time 26.8H, Prothromb Time International Ratio 2.5H, Activated Partial Thromboplast Time 41H 10/08/17 09:50: Ammonia 32, C-Reactive Protein, Quantitative 9.1H, Thyroid Stimulating Hormone ( TSH) 3.486 Height (Feet): 5 Height (Inches): 5.00 Weight (Pounds): 115 Objective WDWN NCAT , (+) ETT supple CTA RRR abd soft (+) edema non verbal ARNULFO DURON Oct 08, 2017 21:49
[2017-10-08] MEDS ORDERED: Phytonadione 10 mg/mL 1ml amp SUBQ ONE (22:00)
--- NOTE | 2017-10-08 22:39 | General Progress Note ---
Assessment/Plan Assessment/Plan #. Anemia due to underlying chronic disease. Continue to closely monitor. --> Hemoglobin goal is above 7. --> Occult blood detected. Consider GI recs. --> Transfuse as necessary --> Anemia workup has been reviewed at this point. --> Hemoglobin levels stable and anemia mild at this time --> Blood transfusion not required unless symptomatic or hgb below goal. #. Leukocytosis likely related to underlying pneumonia infection. --> Resolved on antibiotic treatment. #. Thrombocytopenia, severe and progressive, acute onset, likely secondary to underlying infection, aspiration pneumonia versus HIT. --> Antibody test reviewed. Heparin has been discontinued on 09/18/2017. --> Duplex of the lower extremities is negative, therefore less likely HIT and other causes are more likely such as underlying infection. --> Platelets goal >20k, transfuse if necessary. --> Has Remained low past few days. On antibiotic treatment. --> Improved slightly today. #. Community-acquired pneumonia versus hospital-acquired. --> The patient on broad-spectrum antibiotics. --> Improved. --> Urine culture growing E. coli. Continue to closely monitor. #. Transaminitis. She has been seen by GI Service. Continue to closely monitor. #. Low-grade fever. Closely observe. #. Encephalopathy. Subjective Date patient seen: Oct 07, 2017 Constitutional: Denies: no symptoms, chills, diaphoresis, fever, malaise, weakness, other HEENT: Denies: no symptoms, eye pain, blurred vision, tearing, double vision, ear pain, ear discharge, nose pain, nose congestion, throat pain, throat swelling, mouth pain, mouth swelling, other Cardiovascular: Denies: no symptoms, chest pain, edema, irregular heart rate, lightheadedness, palpitations, syncope, other Respiratory: Denies: no symptoms, cough, orthopnea, shortness of breath, SOB with excertion, SOB at rest, sputum, stridor, wheezing, other Gastrointestinal/Abdominal: Denies: no symptoms, abdomen distended, abdominal pain, black stools, tarry stools, blood in stool, constipated, diarrhea, difficulty swallowing, nausea, poor appetite, poor fluid intake, rectal bleeding , vomiting, other Genitourinary: Denies: no symptoms, burning, discharge, frequency, flank pain, hematuria, incontinence, pain, urgency, other Hematologic/Lymphatic: Reports: anemia Allergies: Coded Allergies: No Known Allergies (Verified , 11/18/08) Subjective Confused. NAD. No fever or chills. Objective Last 24 Hour Vital Signs Date Time Temp Pulse Resp B/P (MAP) Pulse Ox O2 Delivery O2 Flow Rate FiO2 10/08/17 22:28 67 112/55 10/08/17 22:00 68 18 112/55 100 Mechanical Ventilator 40 10/08/17 21:30 66 17 40 10/08/17 21:00 68 18 112/70 94 Mechanical Ventilator 40 10/08/17 20:00 98.0 75 22 114/59 97 Mechanical Ventilator 60 98.0 10/08/17 19:30 62 18 40 10/08/17 19:00 80 20 111/56 97 Mechanical Ventilator 40 10/08/17 18:00 78 19 113/64 95 Mechanical Ventilator 40 10/08/17 17:40 40 10/08/17 17:21 78 124/59 10/08/17 17:11 78 18 40 10/08/17 17:00 79 19 134/72 94 Mechanical Ventilator 40 10/08/17 16:32 81 10/08/17 16:00 97.8 75 18 124/59 100 Mechanical Ventilator 60 97.8 10/08/17 15:00 83 19 60 10/08/17 15:00 84 18 117/56 100 Mechanical Ventilator 60 10/08/17 14:00 85 18 119/48 99 Mechanical Ventilator 60 10/08/17 13:10 60 10/08/17 13:00 97.8 92 26 133/66 98 Mechanical Ventilator 60 97.8 10/08/17 12:40 110 20 100 10/08/17 12:38 110 27 100 10/08/17 12:10 112 16 149/58 99 Mechanical Ventilator 40 10/08/17 12:05 111 10/08/17 12:00 40 10/08/17 10:55 86 19 98 Mechanical Ventilator 40 10/08/17 10:46 84 21 98 Mechanical Ventilator 40 10/08/17 10:43 84 21 Mechanical Ventilator 40 10/08/17 10:30 90 28 40 10/08/17 10:00 89 33 127/61 97 Mechanical Ventilator 45 10/08/17 09:01 86 20 40 10/08/17 09:00 84 32 124/56 98 Mechanical Ventilator 45 10/08/17 08:00 45 10/08/17 08:00 98.5 81 32 124/57 97 Mechanical Ventilator 45 98.5 10/08/17 07:37 87 10/08/17 07:11 82 20 40 10/08/17 07:00 82 30 136/61 96 Mechanical Ventilator 45 10/08/17 06:00 80 31 134/5 96 Mechanical Ventilator 45 10/08/17 06:00 84 134/58 10/08/17 05:08 91 26 40 10/08/17 05:00 87 31 144/61 96 Mechanical Ventilator 45 10/08/17 04:00 99.0 87 31 132/58 97 Mechanical Ventilator 45 99.0 10/08/17 04:00 45 10/08/17 04:00 85 10/08/17 03:29 90 20 40 10/08/17 03:00 88 32 130/60 97 Mechanical Ventilator 45 10/08/17 02:00 87 32 134/62 97 Mechanical Ventilator 45 10/08/17 01:30 84 20 40 10/08/17 01:00 85 31 132/59 97 Mechanical Ventilator 45 10/08/17 00:00 99.2 83 31 137/59 97 Mechanical Ventilator 45 99.2 10/08/17 00:00 45 10/07/17 23:30 88 21 40 10/07/17 23:00 83 31 125/58 97 Mechanical Ventilator 45 Intake and Output 10/07/17 10/08/17 19:00 07:00 Intake Total 1600 ml 1500 ml Output Total 400 ml 421 ml Balance 1200 ml 1079 ml Intake Free Water 80 ml IV Total 1470 ml 1500 ml Tube Feeding 0 ml Other 50 ml Output Urine Total 400 ml 420 ml Stool Total 1 ml # Bowel Movements 1 5 Laboratory Tests 10/08/17 04:00: White Blood Count 6.8, Red Blood Count 2.92L, Hemoglobin 9.2L, Hematocrit 29.5L , Mean Corpuscular Volume 101H, Mean Corpuscular Hemoglobin 31.7H, Mean Corpuscular Hemoglobin Concent 31.4L, Red Cell Distribution Width 17.6H, Platelet Count 150, Mean Platelet Volume 9.4, Neutrophils (%) (Auto) 76.6H, Lymphocytes (%) (Auto) 6.8L, Monocytes (%) (Auto) 11.6H, Eosinophils (%) (Auto) 3.8H, Basophils (%) (Auto) 1.3, Sodium Level 143, Potassium Level 3.5, Chloride Level 110H, Carbon Dioxide Level 27, Anion Gap 6, Blood Urea Nitrogen 20H, Creatinine 0.5L, Estimat Glomerular Filtration Rate , Glucose Level 86, Calcium Level 7.7L, Total Bilirubin 9.1H, Direct Bilirubin 7.3H, Aspartate Amino Transf (AST/SGOT) 60H, Alanine Aminotransferase (ALT/SGPT) 31, Alkaline Phosphatase 854H, Total Protein 5.8L, Albumin 1.4L, Globulin 4.4, Albumin/Globulin Ratio 0.3L 10/08/17 08:15: Prothrombin Time 26.8H, Prothromb Time International Ratio 2.5H, Activated Partial Thromboplast Time 41H 10/08/17 09:50: Ammonia 32, C-Reactive Protein, Quantitative 9.1H, Thyroid Stimulating Hormone ( TSH) 3.486 Height (Feet): 5 Height (Inches): 5.00 Weight (Pounds): 115 General Appearance: confused Respiratory/Chest: decreased breath sounds Abdomen: soft Johnny Sinha MD Oct 08, 2017 22:39
--- NOTE | 2017-10-08 22:42 | General Progress Note ---
Assessment/Plan Assessment/Plan #. Coagulopathy - potentially related to DIC early onset, will obtain hapto, inr repeat, fibrinogen, DIC panel --> administer FFP 4 units and vitamin k repeat prior to procedure --> [facility]HEL[facility] pulm Dr. Parekh --> Likely related to infection versus other cause #. Anemia due to underlying chronic disease. Continue to closely monitor. --> Hemoglobin goal is above 7. --> Occult blood detected. Consider GI recs. --> Transfuse as necessary --> Blood transfusion not required unless symptomatic or hgb below goal. #. Leukocytosis likely related to underlying pneumonia infection. --> Resolved on antibiotic treatment. #. Thrombocytopenia, severe and progressive, acute onset, likely secondary to underlying infection, aspiration, hit was negative --> Duplex of the lower extremities is negative, therefore less likely HIT and other causes are more likely such as underlying infection. --> Platelets goal >20k, transfuse if necessary. --> On antibiotics as per ID #. Community-acquired pneumonia versus hospital-acquired. --> The patient on broad-spectrum antibiotics. --> Improved. --> Urine culture growing E. coli. Continue to closely monitor. #. Transaminitis. She has been seen by GI Service. Continue to closely monitor. #. Low-grade fever. Closely observe. #. Encephalopathy. Subjective Date patient seen: Oct 08, 2017 Constitutional: Denies: no symptoms, chills, diaphoresis, fever, malaise, weakness, other HEENT: Denies: no symptoms, eye pain, blurred vision, tearing, double vision, ear pain, ear discharge, nose pain, nose congestion, throat pain, throat swelling, mouth pain, mouth swelling, other Cardiovascular: Denies: no symptoms, chest pain, edema, irregular heart rate, lightheadedness, palpitations, syncope, other Respiratory: Denies: no symptoms, cough, orthopnea, shortness of breath, SOB with excertion, SOB at rest, sputum, stridor, wheezing, other Gastrointestinal/Abdominal: Denies: no symptoms, abdomen distended, abdominal pain, black stools, tarry stools, blood in stool, constipated, diarrhea, difficulty swallowing, nausea, poor appetite, poor fluid intake, rectal bleeding , vomiting, other Genitourinary: Denies: no symptoms, burning, discharge, frequency, flank pain, hematuria, incontinence, pain, urgency, other 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: Denies: no symptoms, anxiety, depressed, emotional problems, headache, numbness, paresthesia, pre-existing deficit, seizure, tingling, tremors, weakness, other Hematologic/Lymphatic: Reports: anemia Allergies: Coded Allergies: No Known Allergies (Verified , 11/18/08) Subjective On vent in ICU. NAD. No fever or chills. H/H improved. Objective Last 24 Hour Vital Signs Date Time Temp Pulse Resp B/P (MAP) Pulse Ox O2 Delivery O2 Flow Rate FiO2 10/08/17 22:28 67 112/55 10/08/17 22:00 68 18 112/55 100 Mechanical Ventilator 40 10/08/17 21:30 66 17 40 10/08/17 21:00 68 18 112/70 94 Mechanical Ventilator 40 10/08/17 20:00 98.0 75 22 114/59 97 Mechanical Ventilator 60 98.0 10/08/17 19:30 62 18 40 10/08/17 19:00 80 20 111/56 97 Mechanical Ventilator 40 10/08/17 18:00 78 19 113/64 95 Mechanical Ventilator 40 10/08/17 17:40 40 10/08/17 17:21 78 124/59 10/08/17 17:11 78 18 40 10/08/17 17:00 79 19 134/72 94 Mechanical Ventilator 40 10/08/17 16:32 81 10/08/17 16:00 97.8 75 18 124/59 100 Mechanical Ventilator 60 97.8 10/08/17 15:00 83 19 60 10/08/17 15:00 84 18 117/56 100 Mechanical Ventilator 60 10/08/17 14:00 85 18 119/48 99 Mechanical Ventilator 60 10/08/17 13:10 60 10/08/17 13:00 97.8 92 26 133/66 98 Mechanical Ventilator 60 97.8 10/08/17 12:40 110 20 100 10/08/17 12:38 110 27 100 10/08/17 12:10 112 16 149/58 99 Mechanical Ventilator 40 10/08/17 12:05 111 10/08/17 12:00 40 10/08/17 10:55 86 19 98 Mechanical Ventilator 40 10/08/17 10:46 84 21 98 Mechanical Ventilator 40 10/08/17 10:43 84 21 Mechanical Ventilator 40 10/08/17 10:30 90 28 40 10/08/17 10:00 89 33 127/61 97 Mechanical Ventilator 45 10/08/17 09:01 86 20 40 10/08/17 09:00 84 32 124/56 98 Mechanical Ventilator 45 10/08/17 08:00 45 10/08/17 08:00 98.5 81 32 124/57 97 Mechanical Ventilator 45 98.5 10/08/17 07:37 87 10/08/17 07:11 82 20 40 10/08/17 07:00 82 30 136/61 96 Mechanical Ventilator 45 10/08/17 06:00 80 31 134/5 96 Mechanical Ventilator 45 10/08/17 06:00 84 134/58 10/08/17 05:08 91 26 40 10/08/17 05:00 87 31 144/61 96 Mechanical Ventilator 45 10/08/17 04:00 99.0 87 31 132/58 97 Mechanical Ventilator 45 99.0 10/08/17 04:00 45 10/08/17 04:00 85 10/08/17 03:29 90 20 40 10/08/17 03:00 88 32 130/60 97 Mechanical Ventilator 45 10/08/17 02:00 87 32 134/62 97 Mechanical Ventilator 45 10/08/17 01:30 84 20 40 10/08/17 01:00 85 31 132/59 97 Mechanical Ventilator 45 10/08/17 00:00 99.2 83 31 137/59 97 Mechanical Ventilator 45 99.2 10/08/17 00:00 45 10/07/17 23:30 88 21 40 10/07/17 23:00 83 31 125/58 97 Mechanical Ventilator 45 Intake and Output 10/07/17 10/08/17 19:00 07:00 Intake Total 1600 ml 1500 ml Output Total 400 ml 421 ml Balance 1200 ml 1079 ml Intake Free Water 80 ml IV Total 1470 ml 1500 ml Tube Feeding 0 ml Other 50 ml Output Urine Total 400 ml 420 ml Stool Total 1 ml # Bowel Movements 1 5 Laboratory Tests 10/08/17 04:00: White Blood Count 6.8, Red Blood Count 2.92L, Hemoglobin 9.2L, Hematocrit 29.5L , Mean Corpuscular Volume 101H, Mean Corpuscular Hemoglobin 31.7H, Mean Corpuscular Hemoglobin Concent 31.4L, Red Cell Distribution Width 17.6H, Platelet Count 150, Mean Platelet Volume 9.4, Neutrophils (%) (Auto) 76.6H, Lymphocytes (%) (Auto) 6.8L, Monocytes (%) (Auto) 11.6H, Eosinophils (%) (Auto) 3.8H, Basophils (%) (Auto) 1.3, Sodium Level 143, Potassium Level 3.5, Chloride Level 110H, Carbon Dioxide Level 27, Anion Gap 6, Blood Urea Nitrogen 20H, Creatinine 0.5L, Estimat Glomerular Filtration Rate , Glucose Level 86, Calcium Level 7.7L, Total Bilirubin 9.1H, Direct Bilirubin 7.3H, Aspartate Amino Transf (AST/SGOT) 60H, Alanine Aminotransferase (ALT/SGPT) 31, Alkaline Phosphatase 854H, Total Protein 5.8L, Albumin 1.4L, Globulin 4.4, Albumin/Globulin Ratio 0.3L 10/08/17 08:15: Prothrombin Time 26.8H, Prothromb Time International Ratio 2.5H, Activated Partial Thromboplast Time 41H 10/08/17 09:50: Ammonia 32, C-Reactive Protein, Quantitative 9.1H, Thyroid Stimulating Hormone ( TSH) 3.486 Height (Feet): 5 Height (Inches): 5.00 Weight (Pounds): 115 General Appearance: confused Respiratory/Chest: decreased breath sounds Abdomen: soft Edema: trace edema Johnny Sinha MD Oct 08, 2017 22:42
[2017-10-09] VITALS (24 sets, daily range): BP systolic 92–119; BP diastolic 40–60
[2017-10-09 05:22] LABS: INR 3.5 (0.9-1.1)
[2017-10-09 05:25] LABS: ALANINE AMINOTRANSFERASE 39 U/L (12-78); ALBUMIN 1.5 G/DL (3.4-5.0); ALBUMIN/GLOBULIN RATIO 0.4 (1.0-2.7); ALKALINE PHOSPHATASE 923 U/L (46-116); ANION GAP 9 mmol/L (5-15); ASPARTATE AMINO TRANSFERASE 75 U/L (15-37); BILIRUBIN,TOTAL 10.4 MG/DL (0.2-1.0); BLOOD UREA NITROGEN 21 mg/dL (7-18); CALCIUM 7.5 MG/DL (8.5-10.1); CARBON DIOXIDE 25 MMOL/L (21-32); CHLORIDE 108 MMOL/L (98-107); CREATININE 0.6 MG/DL (0.55-1.30); GAMMA GLUTAMYL TRANSPEPTIDASE 542 U/L (5-85); PHOSPHORUS 3.7 MG/DL (2.5-4.9); POTASSIUM 3.2 MMOL/L (3.5-5.1); SODIUM 142 MMOL/L (136-145)
[2017-10-09 05:36] LABS: BILIRUBIN,DIRECT 8.6 MG/DL (0.0-0.3)
[2017-10-09 05:40] LABS: HEMATOCRIT 27.3 % (37.0-47.0); HEMOGLOBIN 8.4 G/DL (12.0-16.0); MEAN CORPUSCULAR VOLUME 101 FL (80-99); PLATELET COUNT 121 K/UL (150-450); RED BLOOD COUNT 2.71 M/UL (4.20-5.40); RED CELL DISTRIBUTION WIDTH 17.4 % (11.6-14.8); WHITE BLOOD COUNT 3.3 K/UL (4.8-10.8)
[2017-10-09] MEDS: dilTIAZem HCl 30mg tab NG SCH ×3 (05:54→22:32)
[2017-10-09] MEDS: NovoLOG Insulin Flexpen SUBQ SCH ×3 (05:55→18:05)
--- NOTE | 2017-10-09 08:04 | Pulmonolgy Critical Care Note ---
Critical Care - Asmt/Plan Problems: (1) Abnormal LFTs (2) Aspiration pneumonia (3) ARDS (adult respiratory distress syndrome) (4) Protein-calorie malnutrition, severe (5) UTI (urinary tract infection) (6) Respiratory failure (7) Sepsis (8) Parkinsons disease (9) GERD (gastroesophageal reflux disease) (10) Thrombocytopenia (11) Electrolyte imbalance (12) Leukocytosis (13) Coagulopathy (14) Cholangitis Respiratory: other - Trach and bronch tomm if INR improved, continue ventilatory support, PRN HHN's Cardiac: continue to monitor HR/BP, other - Continue diuresis as tolerated Renal: F/U I&O, check electrolytes, other - replete K, continue diuresis, F/U renal recs Infectious Disease: continue antibiotics - per ID Gastrointestinal: continue feedings/current rate, other - Trend LFT's, F/U GI recs Endocrine: monitor blood sugar Hematologic: monitor H/H, other - 2U FFP, check DIC labs, F/U hematology recs Neurologic: keep patient comfortable - Hold sedative, F/U CT brain Prophylaxis: Protonix, Heparin - SQ Disposition: keep in ICU Time Spent (Minutes): 50 Notes Reviewed: roll filler, cardio, renal, ID, GI Discussed with: nurses, consultants Critical Care - Objective Last 24 Hour Vital Signs Date Time Temp Pulse Resp B/P (MAP) Pulse Ox O2 Delivery O2 Flow Rate FiO2 10/09/17 07:03 73 21 40 10/09/17 07:00 81 24 101/41 93 Mechanical Ventilator 40 10/09/17 06:00 68 22 101/41 100 Mechanical Ventilator 40 10/09/17 05:54 69 108/46 10/09/17 05:02 63 19 40 10/09/17 05:00 68 24 101/41 100 Mechanical Ventilator 40 10/09/17 04:00 40 10/09/17 04:00 70 10/09/17 04:00 98.1 70 44 104/43 100 Mechanical Ventilator 40 98.1 10/09/17 03:16 67 18 40 10/09/17 03:00 71 17 105/48 96 Mechanical Ventilator 40 10/09/17 02:00 66 29 108/45 96 Mechanical Ventilator 40 10/09/17 01:00 98.4 66 29 109/54 95 Mechanical Ventilator 40 98.4 10/09/17 00:37 69 21 40 10/09/17 00:00 98.4 75 20 115/55 100 Mechanical Ventilator 40 98.4 10/09/17 00:00 70 10/09/17 00:00 40 10/08/17 23:00 75 20 115/55 100 Mechanical Ventilator 40 10/08/17 23:00 68 18 40 10/08/17 22:28 67 112/55 10/08/17 22:00 68 18 112/55 100 Mechanical Ventilator 40 10/08/17 21:30 66 17 40 10/08/17 21:00 68 18 112/70 94 Mechanical Ventilator 40 10/08/17 20:00 98.0 75 22 114/59 97 Mechanical Ventilator 60 98.0 10/08/17 20:00 73 10/08/17 19:30 62 18 40 10/08/17 19:00 80 20 111/56 97 Mechanical Ventilator 40 10/08/17 18:00 78 19 113/64 95 Mechanical Ventilator 40 10/08/17 17:40 40 10/08/17 17:21 78 124/59 10/08/17 17:11 78 18 40 10/08/17 17:00 79 19 134/72 94 Mechanical Ventilator 40 10/08/17 16:32 81 10/08/17 16:00 97.8 75 18 124/59 100 Mechanical Ventilator 60 97.8 10/08/17 15:00 83 19 60 10/08/17 15:00 84 18 117/56 100 Mechanical Ventilator 60 10/08/17 14:00 85 18 119/48 99 Mechanical Ventilator 60 10/08/17 13:10 60 10/08/17 13:00 97.8 92 26 133/66 98 Mechanical Ventilator 60 97.8 10/08/17 12:40 110 20 100 10/08/17 12:38 110 27 100 10/08/17 12:10 112 16 149/58 99 Mechanical Ventilator 40 10/08/17 12:05 111 10/08/17 12:00 40 10/08/17 10:55 86 19 98 Mechanical Ventilator 40 10/08/17 10:46 84 21 98 Mechanical Ventilator 40 10/08/17 10:43 84 21 Mechanical Ventilator 40 10/08/17 10:30 90 28 40 10/08/17 10:00 89 33 127/61 97 Mechanical Ventilator 45 10/08/17 09:01 86 20 40 10/08/17 09:00 84 32 124/56 98 Mechanical Ventilator 45 10/08/17 08:00 45 10/08/17 08:00 98.5 81 32 124/57 97 Mechanical Ventilator 45 98.5 Status: obtunded Condition: critical HEENT: atraumatic, normocephalic Lungs: rhonchi - scattered Heart: HR/BP stable Abdomen: soft, non-tender, active bowel sounds Extremities: edema - 1+ Accucheck: 159 Blood Sugars: BS controlled Critical Care - Subjective ROS Limited/Unobtainable: Yes ICU Day: 28 Intubation Day: 28 Interval Events: -2.2L, AFVSS, stable O2 needs, stable on vent, not radha PS S/P ERCP with stent, sphincterotomy not done 2/2 elevated INR Today INR 3.5, FOBT + no other bleeding, no sig secretions LFT's worse CT head not done Condition: critical IV Access: peripheral EKG Rhythm: Sinus Rhythm FI02: 40 Vent Support Breath Rate: 18 Vent Support Mode: AC Vent Tidal Volume: 500 Sputum Amount: Small PEEP: 5.0 PIP: 45 Secretions: white oral, scant ETT Fluids: SLIV Tube Feeding Amount: 30 I&O: Intake and Output 10/08/17 10/09/17 19:00 07:00 Intake Total 426 ml 240 ml Output Total 1516 ml 1420 ml Balance -1090 ml -1180 ml Intake Free Water 50 ml IV Total 426 ml Tube Feeding 190 ml Output Urine Total 1515 ml 1420 ml Stool Total 1 ml # Bowel Movements 1 4 Subjective: More alert today but still obtunded ET-Tube: 7.5 ET Position: 20 Labs: Laboratory Tests Test 10/08/17 08:15 10/08/17 09:50 10/09/17 04:00 Prothrombin Time 26.8 SEC (9.30-11.50) H 36.7 SEC (9.30-11.50) H Prothromb Time International Ratio 2.5 (0.9-1.1) H 3.5 (0.9-1.1) H Activated Partial Thromboplast Time 41 SEC (23-33) H Ammonia 32 umol/L (11-32) C-Reactive Protein, Quantitative 9.1 mg/dL (0.00-0.90) H Thyroid Stimulating Hormone (TSH) 3.486 uiU/mL (0.358-3.740) White Blood Count 3.3 K/UL (4.8-10.8) #L Red Blood Count 2.71 M/UL (4.20-5.40) L Hemoglobin 8.4 G/DL (12.0-16.0) L Hematocrit 27.3 % (37.0-47.0) L Mean Corpuscular Volume 101 FL (80-99) H Mean Corpuscular Hemoglobin 30.8 PG (27.0-31.0) Mean Corpuscular Hemoglobin Concent 30.6 G/DL (32.0-36.0) L Red Cell Distribution Width 17.4 % (11.6-14.8) H Platelet Count 121 K/UL (150-450) L Mean Platelet Volume 10.8 FL (6.5-10.1) H Neutrophils (%) (Auto) % (45.0-75.0) Lymphocytes (%) (Auto) % (20.0-45.0) Monocytes (%) (Auto) % (1.0-10.0) Eosinophils (%) (Auto) % (0.0-3.0) Basophils (%) (Auto) % (0.0-2.0) Neutrophils % (Manual) Pending Lymphocytes % (Manual) Pending Platelet Estimate Pending Platelet Morphology Pending Sodium Level 142 MMOL/L (136-145) Potassium Level 3.2 MMOL/L (3.5-5.1) L Chloride Level 108 MMOL/L (98-107) H Carbon Dioxide Level 25 MMOL/L (21-32) Anion Gap 9 mmol/L (5-15) Blood Urea Nitrogen 21 mg/dL (7-18) H Creatinine 0.6 MG/DL (0.55-1.30) Estimat Glomerular Filtration Rate mL/min (>60) Glucose Level 129 MG/DL (74-106) H Uric Acid 5.1 MG/DL (2.6-7.2) Calcium Level 7.5 MG/DL (8.5-10.1) L Phosphorus Level 3.7 MG/DL (2.5-4.9) Magnesium Level 1.7 MG/DL (1.8-2.4) L Total Bilirubin 10.4 MG/DL (0.2-1.0) H Direct Bilirubin 8.6 MG/DL (0.0-0.3) H Gamma Glutamyl Transpeptidase 542 U/L (5-85) H Aspartate Amino Transf (AST/SGOT) 75 U/L (15-37) H Alanine Aminotransferase (ALT/SGPT) 39 U/L (12-78) Alkaline Phosphatase 923 U/L (46-116) H Pro-B-Type Natriuretic Peptide 3206 pg/mL (0-125) H Total Protein 5.6 G/DL (6.4-8.2) L Albumin 1.5 G/DL (3.4-5.0) L Globulin 4.1 g/dL Albumin/Globulin Ratio 0.4 (1.0-2.7) L DEYA CHRISTINE M.D. Oct 09, 2017 08:04
[2017-10-09] MEDS: Ketotifen Fumarate 0.035% 5ml BOTH EYES SCH (09:00)
--- NOTE | 2017-10-09 09:19 | Nephrology Progress Note ---
Assessment/Plan Problem List: (1) ARDS (adult respiratory distress syndrome) (2) Electrolyte imbalance (3) Thrombocytopenia Assessment (1) ARDS (adult respiratory distress syndrome) (2) Aspiration pneumonia (3) Protein-calorie malnutrition, severe (4) Diabetes mellitus (5) Anemia , aplastic by history (6) DM (7) UTI (8) Electrolyte imbalance (9) HTN (10) Depression (11) RA . Plan stable agree with diuresis and K supplement due trach no set date k via NGT as needed water via NGT Adjust BP meds K and Phos supplement as needed Monitor renal parameters and urine output avoid nephrotoxics per orders discussed with RN Left ventricular ejection fraction estimated to be 55 %. Subjective ROS Limited/Unobtainable: Yes Objective Objective Last 24 Hour Vital Signs Date Time Temp Pulse Resp B/P (MAP) Pulse Ox O2 Delivery O2 Flow Rate FiO2 10/09/17 08:00 75 10/09/17 08:00 40 10/09/17 08:00 98.2 75 25 105/45 100 Mechanical Ventilator 40 98.2 10/09/17 07:03 73 21 40 10/09/17 07:00 81 24 101/41 93 Mechanical Ventilator 40 10/09/17 06:00 68 22 101/41 100 Mechanical Ventilator 40 10/09/17 05:54 69 108/46 10/09/17 05:02 63 19 40 10/09/17 05:00 68 24 101/41 100 Mechanical Ventilator 40 10/09/17 04:00 40 10/09/17 04:00 70 10/09/17 04:00 98.1 70 44 104/43 100 Mechanical Ventilator 40 98.1 10/09/17 03:16 67 18 40 10/09/17 03:00 71 17 105/48 96 Mechanical Ventilator 40 10/09/17 02:00 66 29 108/45 96 Mechanical Ventilator 40 10/09/17 01:00 98.4 66 29 109/54 95 Mechanical Ventilator 40 98.4 10/09/17 00:37 69 21 40 10/09/17 00:00 98.4 75 20 115/55 100 Mechanical Ventilator 40 98.4 10/09/17 00:00 70 10/09/17 00:00 40 10/08/17 23:00 75 20 115/55 100 Mechanical Ventilator 40 10/08/17 23:00 68 18 40 10/08/17 22:28 67 112/55 10/08/17 22:00 68 18 112/55 100 Mechanical Ventilator 40 10/08/17 21:30 66 17 40 10/08/17 21:00 68 18 112/70 94 Mechanical Ventilator 40 10/08/17 20:00 98.0 75 22 114/59 97 Mechanical Ventilator 60 98.0 10/08/17 20:00 73 10/08/17 19:30 62 18 40 10/08/17 19:00 80 20 111/56 97 Mechanical Ventilator 40 10/08/17 18:00 78 19 113/64 95 Mechanical Ventilator 40 10/08/17 17:40 40 10/08/17 17:21 78 124/59 10/08/17 17:11 78 18 40 10/08/17 17:00 79 19 134/72 94 Mechanical Ventilator 40 10/08/17 16:32 81 10/08/17 16:00 97.8 75 18 124/59 100 Mechanical Ventilator 60 97.8 10/08/17 15:00 83 19 60 10/08/17 15:00 84 18 117/56 100 Mechanical Ventilator 60 10/08/17 14:00 85 18 119/48 99 Mechanical Ventilator 60 10/08/17 13:10 60 10/08/17 13:00 97.8 92 26 133/66 98 Mechanical Ventilator 60 97.8 10/08/17 12:40 110 20 100 10/08/17 12:38 110 27 100 10/08/17 12:10 112 16 149/58 99 Mechanical Ventilator 40 10/08/17 12:05 111 10/08/17 12:00 40 10/08/17 10:55 86 19 98 Mechanical Ventilator 40 10/08/17 10:46 84 21 98 Mechanical Ventilator 40 10/08/17 10:43 84 21 Mechanical Ventilator 40 10/08/17 10:30 90 28 40 10/08/17 10:00 89 33 127/61 97 Mechanical Ventilator 45 Intake and Output 10/08/17 10/09/17 19:00 07:00 Intake Total 426 ml 240 ml Output Total 1516 ml 1420 ml Balance -1090 ml -1180 ml Intake Free Water 50 ml IV Total 426 ml Tube Feeding 190 ml Output Urine Total 1515 ml 1420 ml Stool Total 1 ml # Bowel Movements 1 4 Laboratory Tests 10/08/17 09:50: Ammonia 32, C-Reactive Protein, Quantitative 9.1H, Thyroid Stimulating Hormone ( TSH) 3.486 10/09/17 04:00: White Blood Count 3.3#L, Red Blood Count 2.71L, Hemoglobin 8.4L, Hematocrit 27.3L, Mean Corpuscular Volume 101H, Mean Corpuscular Hemoglobin 30.8, Mean Corpuscular Hemoglobin Concent 30.6L, Red Cell Distribution Width 17.4H, Platelet Count 121L, Mean Platelet Volume 10.8H, Neutrophils (%) (Auto) , Lymphocytes (%) (Auto) , Monocytes (%) (Auto) , Eosinophils (%) (Auto) , Basophils (%) (Auto) , Differential Total Cells Counted 100, Neutrophils % ( Manual) 83H, Lymphocytes % (Manual) 9L, Monocytes % (Manual) 7, Eosinophils % ( Manual) 1, Basophils % (Manual) 0, Band Neutrophils 0, Platelet Estimate DecreasedL, Platelet Morphology Normal, Hypochromasia 1+, Anisocytosis 1+, Macrocytosis 1+, Haptoglobin [Pending], Prothrombin Time 36.7H, Prothromb Time International Ratio 3.5H, Fibrinogen [Pending], Fibrin Degradation Products, Quant [Pending], D-Dimer [Pending], Sodium Level 142, Potassium Level 3.2L, Chloride Level 108H, Carbon Dioxide Level 25, Anion Gap 9, Blood Urea Nitrogen 21H, Creatinine 0.6, Estimat Glomerular Filtration Rate , Glucose Level 129H, Uric Acid 5.1, Calcium Level 7.5L, Phosphorus Level 3.7, Magnesium Level 1.7L, Total Bilirubin 10.4H, Direct Bilirubin 8.6H, Gamma Glutamyl Transpeptidase 542H , Aspartate Amino Transf (AST/SGOT) 75H, Alanine Aminotransferase (ALT/SGPT) 39 , Alkaline Phosphatase 923H, Lactate Dehydrogenase 547H, Pro-B-Type Natriuretic Peptide 3206H, Total Protein 5.6L, Albumin 1.5L, Globulin 4.1, Albumin/Globulin Ratio 0.4L Height (Feet): 5 Height (Inches): 5.00 Weight (Pounds): 108 General Appearance: no apparent distress Cardiovascular: normal rate Respiratory/Chest: decreased breath sounds Abdomen: distended Objective no change YAEL HANSEN Oct 09, 2017 09:19
[2017-10-09] MEDS: Pantoprazole Inj IVP SCH (09:51)
--- NOTE | 2017-10-09 11:01 | 48 Hour Post Anesthesia Eval ---
Post Anesthesia Evaluation Procedure: ercp Date of Evaluation: Oct 09, 2017 Time of Evaluation: 11:00 Blood Pressure Systolic: 97 0: 50 Pulse Rate: 74 Respiratory Rate: 18 Temperature (Fahrenheit): 98 O2 Sat by Pulse Oximetry: 100 Airway: other - mechanically ventilated at 40% = stable at this time; see vitals rcord Nausea: No Vomiting: No Hydration Status: other - see primary care team note Cardiopulmonary Status: stable at this time Mental Status/LOC: patient returned to baseline Follow-up Care/Observations: by primary team Post-Anesthesia Complications: none Follow-up care needed: N/A RACHNA LOPEZ CRNA Oct 09, 2017 11:01
[2017-10-09] MEDS: Ertapenem 1 GM in NS 110 ML IVPB SCH (13:18)
[2017-10-09] MEDS: Micafungin 100 MG in D5W 110 ML IVPB SCH (13:18)
--- NOTE | 2017-10-09 13:40 | General Progress Note ---
Assessment/Plan Problem List: (1) Arthritis, rheumatoid ICD Codes: M06.9 - Rheumatoid arthritis, unspecified SNOMED: 97038027 (2) Aspiration pneumonia ICD Codes: J69.0 - Pneumonitis due to inhalation of food and vomit SNOMED: 569073686 (3) Diabetes mellitus ICD Codes: E11.9 - Type 2 diabetes mellitus without complications SNOMED: 65052073 (4) ARDS (adult respiratory distress syndrome) ICD Codes: J80 - Acute respiratory distress syndrome SNOMED: 90724319 (5) Transaminitis ICD Codes: R74.0 - Nonspecific elevation of levels of transaminase and lactic acid dehydrogenase [LDH] SNOMED: 048302899, 642474222 (6) Dyspnea ICD Codes: R06.00 - Dyspnea, unspecified SNOMED: 242038451 (7) Parkinsons disease ICD Codes: G20 - Parkinson's disease SNOMED: 19660183 (8) Sepsis ICD Codes: A41.9 - Sepsis, unspecified organism SNOMED: 49058119 (9) GERD (gastroesophageal reflux disease) ICD Codes: K21.9 - Gastro-esophageal reflux disease without esophagitis SNOMED: 539597518 (10) Aplastic anemia ICD Codes: D61.9 - Aplastic anemia, unspecified SNOMED: 769273182 (11) Pneumonia ICD Codes: J18.9 - Pneumonia, unspecified organism SNOMED: 201857752 (12) HTN (hypertension) ICD Codes: I10 - Essential (primary) hypertension SNOMED: 21300222 Assessment/Plan Encephalopathy, agitation, psychotic disorder. -cont current meds -ativan prn Subjective Date patient seen: Oct 09, 2017 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: Reports: anxiety Allergies: Coded Allergies: No Known Allergies (Verified , 11/18/08) Subjective the pt is calm nad Objective Last 24 Hour Vital Signs Date Time Temp Pulse Resp B/P (MAP) Pulse Ox O2 Delivery O2 Flow Rate FiO2 10/09/17 13:01 69 23 40 10/09/17 11:01 208.4 74 18 100 10/09/17 10:59 70 20 40 10/09/17 10:00 71 22 95/41 98 Mechanical Ventilator 40 10/09/17 09:20 67 20 40 10/09/17 09:00 67 24 92/42 98 Mechanical Ventilator 40 10/09/17 08:00 75 10/09/17 08:00 40 10/09/17 08:00 98.2 75 25 105/45 100 Mechanical Ventilator 40 98.2 10/09/17 07:03 73 21 40 10/09/17 07:00 81 24 101/41 93 Mechanical Ventilator 40 10/09/17 06:00 68 22 101/41 100 Mechanical Ventilator 40 10/09/17 05:54 69 108/46 10/09/17 05:02 63 19 40 10/09/17 05:00 68 24 101/41 100 Mechanical Ventilator 40 10/09/17 04:00 40 10/09/17 04:00 70 10/09/17 04:00 98.1 70 44 104/43 100 Mechanical Ventilator 40 98.1 10/09/17 03:16 67 18 40 10/09/17 03:00 71 17 105/48 96 Mechanical Ventilator 40 10/09/17 02:00 66 29 108/45 96 Mechanical Ventilator 40 10/09/17 01:00 98.4 66 29 109/54 95 Mechanical Ventilator 40 98.4 10/09/17 00:37 69 21 40 10/09/17 00:00 98.4 75 20 115/55 100 Mechanical Ventilator 40 98.4 10/09/17 00:00 70 10/09/17 00:00 40 10/08/17 23:00 75 20 115/55 100 Mechanical Ventilator 40 10/08/17 23:00 68 18 40 10/08/17 22:28 67 112/55 10/08/17 22:00 68 18 112/55 100 Mechanical Ventilator 40 10/08/17 21:30 66 17 40 10/08/17 21:00 68 18 112/70 94 Mechanical Ventilator 40 10/08/17 20:00 98.0 75 22 114/59 97 Mechanical Ventilator 60 98.0 10/08/17 20:00 73 10/08/17 19:30 62 18 40 10/08/17 19:00 80 20 111/56 97 Mechanical Ventilator 40 10/08/17 18:00 78 19 113/64 95 Mechanical Ventilator 40 10/08/17 17:40 40 10/08/17 17:21 78 124/59 10/08/17 17:11 78 18 40 10/08/17 17:00 79 19 134/72 94 Mechanical Ventilator 40 10/08/17 16:32 81 10/08/17 16:00 97.8 75 18 124/59 100 Mechanical Ventilator 60 97.8 10/08/17 15:00 83 19 60 10/08/17 15:00 84 18 117/56 100 Mechanical Ventilator 60 10/08/17 14:00 85 18 119/48 99 Mechanical Ventilator 60 Intake and Output 10/08/17 10/09/17 19:00 07:00 Intake Total 426 ml 240 ml Output Total 1516 ml 1420 ml Balance -1090 ml -1180 ml Intake Free Water 50 ml IV Total 426 ml Tube Feeding 190 ml Output Urine Total 1515 ml 1420 ml Stool Total 1 ml # Bowel Movements 1 4 Laboratory Tests 10/09/17 04:00: White Blood Count 3.3#L, Red Blood Count 2.71L, Hemoglobin 8.4L, Hematocrit 27.3L, Mean Corpuscular Volume 101H, Mean Corpuscular Hemoglobin 30.8, Mean Corpuscular Hemoglobin Concent 30.6L, Red Cell Distribution Width 17.4H, Platelet Count 121L, Mean Platelet Volume 10.8H, Neutrophils (%) (Auto) , Lymphocytes (%) (Auto) , Monocytes (%) (Auto) , Eosinophils (%) (Auto) , Basophils (%) (Auto) , Differential Total Cells Counted 100, Neutrophils % ( Manual) 83H, Lymphocytes % (Manual) 9L, Monocytes % (Manual) 7, Eosinophils % ( Manual) 1, Basophils % (Manual) 0, Band Neutrophils 0, Platelet Estimate DecreasedL, Platelet Morphology Normal, Hypochromasia 1+, Anisocytosis 1+, Macrocytosis 1+, Prothrombin Time 36.7H, Prothromb Time International Ratio 3.5H , Sodium Level 142, Potassium Level 3.2L, Chloride Level 108H, Carbon Dioxide Level 25, Anion Gap 9, Blood Urea Nitrogen 21H, Creatinine 0.6, Estimat Glomerular Filtration Rate , Glucose Level 129H, Uric Acid 5.1, Calcium Level 7.5L, Phosphorus Level 3.7, Magnesium Level 1.7L, Total Bilirubin 10.4H, Direct Bilirubin 8.6H, Gamma Glutamyl Transpeptidase 542H, Aspartate Amino Transf (AST/ SGOT) 75H, Alanine Aminotransferase (ALT/SGPT) 39, Alkaline Phosphatase 923H, Lactate Dehydrogenase 547H, Pro-B-Type Natriuretic Peptide 3206H, Total Protein 5.6L, Albumin 1.5L, Globulin 4.1, Albumin/Globulin Ratio 0.4L 10/09/17 09:40: Haptoglobin [Pending], Fibrinogen 460H, Fibrin Degradation Products, Quant [ Pending], D-Dimer 2.96H Height (Feet): 5 Height (Inches): 5.00 Weight (Pounds): 108 Dary Nixon M.D. Oct 09, 2017 13:40
--- NOTE | 2017-10-09 14:52 | Cardiac Electrophysiology PN ---
Assessment/Plan Assessment/Plan 1. Vent dependent Respiratory failure, due to underlying ARDS , pneumonia. Already ruled out for myocardial infarction. Now on 45% Fio2 with PEEP of 5. Tracheostomy and Bronchoscopy pending INR optimization tomorrow 2. Left bundle-branch block. No evidence of advanced heart block. 3. HTN and diastolic dysfunction. On Cardizem 30 NG q8 hr. Echo EF 55% 4. Hypernatremia and Azotemia. F/U per Dr. Mayer 5. Pneumonia and sepsis on IV antibiotics by Dr. Hunter. 6. Psychiatric disorder. 7. Anasarca. 3rd spacing. 8. Anemia with Hb 6.6 s/p PRBC. CT chest abdomen and pelvis without contrast no acute finding S/P EGD by Dr Walton 9. Severe thrombocytopenia. S/P platelet transfusion 10. Abnormal LFT, Biliary obstruction, possible cholangitis. S/P ERCP. CBD sludge. S/P repeat ERCP and stent by Dr Walton 11. High INR 3.5 likely due to hepatic failure. Getting FFP and Vit K DW RN and Dr Barahona Subjective Subjective Intubated on Vent in ICU. No SVT or VT overnight. RN at bedside.Had repeat ERCP and stent by Dr Walton yesterday. Bronchoscopy and Tracheostomy postponed due to high INR. Objective Last 24 Hour Vital Signs Date Time Temp Pulse Resp B/P (MAP) Pulse Ox O2 Delivery O2 Flow Rate FiO2 10/09/17 14:00 69 97/50 10/09/17 13:01 69 23 40 10/09/17 11:01 208.4 74 18 100 10/09/17 10:59 70 20 40 10/09/17 10:00 71 22 95/41 98 Mechanical Ventilator 40 10/09/17 09:20 67 20 40 10/09/17 09:00 67 24 92/42 98 Mechanical Ventilator 40 10/09/17 08:00 75 10/09/17 08:00 40 10/09/17 08:00 98.2 75 25 105/45 100 Mechanical Ventilator 40 98.2 10/09/17 07:03 73 21 40 10/09/17 07:00 81 24 101/41 93 Mechanical Ventilator 40 10/09/17 06:00 68 22 101/41 100 Mechanical Ventilator 40 10/09/17 05:54 69 108/46 10/09/17 05:02 63 19 40 10/09/17 05:00 68 24 101/41 100 Mechanical Ventilator 40 10/09/17 04:00 40 10/09/17 04:00 70 10/09/17 04:00 98.1 70 44 104/43 100 Mechanical Ventilator 40 98.1 10/09/17 03:16 67 18 40 10/09/17 03:00 71 17 105/48 96 Mechanical Ventilator 40 10/09/17 02:00 66 29 108/45 96 Mechanical Ventilator 40 10/09/17 01:00 98.4 66 29 109/54 95 Mechanical Ventilator 40 98.4 10/09/17 00:37 69 21 40 10/09/17 00:00 98.4 75 20 115/55 100 Mechanical Ventilator 40 98.4 10/09/17 00:00 70 10/09/17 00:00 40 10/08/17 23:00 75 20 115/55 100 Mechanical Ventilator 40 10/08/17 23:00 68 18 40 10/08/17 22:28 67 112/55 10/08/17 22:00 68 18 112/55 100 Mechanical Ventilator 40 10/08/17 21:30 66 17 40 10/08/17 21:00 68 18 112/70 94 Mechanical Ventilator 40 10/08/17 20:00 98.0 75 22 114/59 97 Mechanical Ventilator 60 98.0 10/08/17 20:00 73 10/08/17 19:30 62 18 40 10/08/17 19:00 80 20 111/56 97 Mechanical Ventilator 40 10/08/17 18:00 78 19 113/64 95 Mechanical Ventilator 40 10/08/17 17:40 40 10/08/17 17:21 78 124/59 10/08/17 17:11 78 18 40 10/08/17 17:00 79 19 134/72 94 Mechanical Ventilator 40 10/08/17 16:32 81 10/08/17 16:00 97.8 75 18 124/59 100 Mechanical Ventilator 60 97.8 10/08/17 15:00 83 19 60 10/08/17 15:00 84 18 117/56 100 Mechanical Ventilator 60 Intake and Output 10/08/17 10/09/17 19:00 07:00 Intake Total 426 ml 240 ml Output Total 1516 ml 1420 ml Balance -1090 ml -1180 ml Intake Free Water 50 ml IV Total 426 ml Tube Feeding 190 ml Output Urine Total 1515 ml 1420 ml Stool Total 1 ml # Bowel Movements 1 4 Laboratory Tests Test 10/09/17 04:00 10/09/17 09:40 White Blood Count 3.3 K/UL (4.8-10.8) #L Red Blood Count 2.71 M/UL (4.20-5.40) L Hemoglobin 8.4 G/DL (12.0-16.0) L Hematocrit 27.3 % (37.0-47.0) L Mean Corpuscular Volume 101 FL (80-99) H Mean Corpuscular Hemoglobin 30.8 PG (27.0-31.0) Mean Corpuscular Hemoglobin Concent 30.6 G/DL (32.0-36.0) L Red Cell Distribution Width 17.4 % (11.6-14.8) H Platelet Count 121 K/UL (150-450) L Mean Platelet Volume 10.8 FL (6.5-10.1) H Neutrophils (%) (Auto) % (45.0-75.0) Lymphocytes (%) (Auto) % (20.0-45.0) Monocytes (%) (Auto) % (1.0-10.0) Eosinophils (%) (Auto) % (0.0-3.0) Basophils (%) (Auto) % (0.0-2.0) Differential Total Cells Counted 100 Neutrophils % (Manual) 83 % (45-75) H Lymphocytes % (Manual) 9 % (20-45) L Monocytes % (Manual) 7 % (1-10) Eosinophils % (Manual) 1 % (0-3) Basophils % (Manual) 0 % (0-2) Band Neutrophils 0 % (0-8) Platelet Estimate Decreased L Platelet Morphology Normal Hypochromasia 1+ Anisocytosis 1+ Macrocytosis 1+ Prothrombin Time 36.7 SEC (9.30-11.50) H Prothromb Time International Ratio 3.5 (0.9-1.1) H Sodium Level 142 MMOL/L (136-145) Potassium Level 3.2 MMOL/L (3.5-5.1) L Chloride Level 108 MMOL/L (98-107) H Carbon Dioxide Level 25 MMOL/L (21-32) Anion Gap 9 mmol/L (5-15) Blood Urea Nitrogen 21 mg/dL (7-18) H Creatinine 0.6 MG/DL (0.55-1.30) Estimat Glomerular Filtration Rate mL/min (>60) Glucose Level 129 MG/DL (74-106) H Uric Acid 5.1 MG/DL (2.6-7.2) Calcium Level 7.5 MG/DL (8.5-10.1) L Phosphorus Level 3.7 MG/DL (2.5-4.9) Magnesium Level 1.7 MG/DL (1.8-2.4) L Total Bilirubin 10.4 MG/DL (0.2-1.0) H Direct Bilirubin 8.6 MG/DL (0.0-0.3) H Gamma Glutamyl Transpeptidase 542 U/L (5-85) H Aspartate Amino Transf (AST/SGOT) 75 U/L (15-37) H Alanine Aminotransferase (ALT/SGPT) 39 U/L (12-78) Alkaline Phosphatase 923 U/L (46-116) H Lactate Dehydrogenase 547 U/L (81-234) H Pro-B-Type Natriuretic Peptide 3206 pg/mL (0-125) H Total Protein 5.6 G/DL (6.4-8.2) L Albumin 1.5 G/DL (3.4-5.0) L Globulin 4.1 g/dL Albumin/Globulin Ratio 0.4 (1.0-2.7) L Haptoglobin Pending Fibrinogen 460 mg/dL (200-400) H Fibrin Degradation Products, Quant Pending D-Dimer 2.96 mg/L FEU (0.00-0.49) H Objective HEAD AND NECK: Orally intubated. Jaundiced LUNGS: Coarse rhonchi bilaterally CARDIOVASCULAR: Tachy S1 and S2.No murmur ABDOMEN: Soft. EXTREMITIES: 1+ pitting edema. Charlie Darnell MD Oct 09, 2017 14:52
--- NOTE | 2017-10-09 15:13 | Infectious Diseases Prog Note ---
Assessment/Plan Assessment/Plan The patient is a 76-year-old female w Fever, low grade, intermittent; resolved- ? persistent cholangitis as increased LFTs again -u.a no pyuria, ucx 20-30k C. albicans (colonizer) -CXR 10/04 : Interstitial and airspace opacities are again present -Bcx 10/03 NTD Leukocytosis , resolved- likely cholangitis -Cdiff neg -09/22 sp cx C.a lbicans, Bcx Neg -u/a wbc 10-15, nit neg, leuk +2; ucx >100k C. albicans -Fungal sp cx p Community-acquired vs healthcare-associated pneumonia, s/p RX (the patient has been recently hospitalized in [facility]). -now ARDS- r/o fungal PNA; worsening infiltrates- ?etiology - has received prolonged abx tx and empiric fungal tx; fungal serologies and cx pending to date -CT chest 10/07: Extensive diffuse bilateral pulmonary parenchymal disease, slightly worse than on prior exam of 09/23/2017. Main differential considerations include pneumonia, ARDS, pulmonary edema, among multiple other possibilities. Bilateral moderate to large pleural effusions, slightly increased in size from 09/23/2017. Nasogastric and endotracheal tubes in good position. Evidence of generalized anasarca, with diffuse subcutaneous soft tissue edema. - cxray 09/26 : no changes -CT chest 09/23: Diffuse extensive pulmonary parenchymal disease, with dense consolidation interspersed with groundglass opacities. Appearance nonspecific, possibilities include pulmonary edema, pneumonia, ARDS, hemorrhage. Bilateral pleural effusions, left greater than right. Diffuse edema of the subcutaneous fat, Multiple small thyroid nodules. All apparently under 1 cm, no further follow-up necessary. Degenerative changes of the shoulders 09/19 xray : Unchanged diffuse interstitial and airspace edema, -CrAg serum, U legionell ag neg; Asp ag, Cocci, fungitell p Probable influenza despite of negative influenza screening test, s/p Rx Abnormal liver function tests, ALP>>> AST -2ry to sludged CBD ,cholangitis, obstruction on CBD; AST/ALT normal now, ALP improved but now worsening again -s/p ERCP 10/08: Intraoperative images demonstrate faint opacification of the common bile duct, and placement of a new plastic endobiliary stent. What may be a previous malpositioned biliary stent is seen to the left of the endoscope -CT abd/p 10/07: Anasarca, also previously described, currently similar except for increased size of bilateral pleural fluid described on chest CT. Gallbladder wall edema, probably a manifestation of anasarca, although acute cholecystitis not excludable. Note that similar findings were seen on the previous study, which was followed by a negative HIDA scan. Endometrial biliary stent now present. Mild central intrahepatic biliary ductal dilatation despite this. Low-attenuation areas in the spleen, as described. Equivocal clinically evident previously in retrospect that much more conspicuous currently, probably due to less image artifact on the current study. These are nonspecific, could represent cysts, infarcts, areas of inflammation, much less likely neoplasm. Satisfactory position of nasogastric tube. 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 Nonspecific inflammatory changes surrounding the hips. Right hip region lipoma -s/p ERCP with stent placement 10/01 -EUS 09/30: 1. Dilated common bile duct with lots of sludge in the distal common bile duct, most probably explanation for abnormal liver function tests. 2. Large ascites -Abd US 09/29: Cholelithiasis, better demonstrated than on prior exam. Thickened gallbladder wall could indicate acute cholecystitis. However, gallbladder wall thickening also evident on prior study of 09/19/2017, after which a hepatobiliary scan was negative, so suspect this is more likely due to hemodynamic derangements given presence of ascites and pleural fluid. Extrahepatic biliary ductal dilatation, equivocally slightly increased from 2017. Downstream obstruction not excludable. Coarsened hepatic echotexture, consistent with hepatocellular disease, nonspecific as regards etiology. Equivocal hepatic surface micronodularity, could indicate early cirrhotic changes. -HIDA scan: Negative for evidence of cystic duct obstruction/acute cholecystitis. Common bile duct is demonstrated be patent, but emptying into the duodenum is delayed, not seen until 2 hours. Significance of this is uncertain. MRCP or CT scanning may be useful to clarify -CT abd/p 09/23: Evidence of anasarca, with diffuse edema subcutaneous and mesenteric fat, bilateral pleural effusions, possible pulmonary edema, trace ascites. Densities within the gallbladder, probably reflecting tiny gallstones, although these are not identifiable on recent ultrasound. Gallbladder wall edema is probably a manifestation of anasarca, as recent hepatobiliary scan was negative for acute cholecystitis. Old ununited fracture deformities of the right pelvis. Bilateral chronic appearing hip dislocations Ultrasound of the abdomen : Gallbladder sludge. No definite stones. 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 Depression. Anemia. Rheumatoid arthritis. History of gastritis. PLAN: -Continue Micafungin #10/10 for cholangitis and Ertapenem #6/7 given low grade fevers and rise in LFts, concern for persistent cholangitis. 10/02 SP Amikacin #10 09/30 SP Flagyl #8 09/25 sp Fluconazole #3 (held due to rise ALP) 09/23 SP Meropenem #5, PO Vanco #2 09/21 SP tamiflu #10 -f/u Repeat cultures -f/u Asp ag, fungitell, Cocci ab, fungal sp cx (called lab for f/u on these tests; was told they are still pending and they will call [facility] for an update ). Monitor CBC.; Trend WBC Monitor BMP.; Trend LFTs Monitor chest x-ray -GI, heme onc f/u Subjective Allergies: Coded Allergies: No Known Allergies (Verified , 11/18/08) Subjective afebrile no leukocytosis; mild leukopenia Objective Vital Signs Last 24 Hour Vital Signs Date Time Temp Pulse Resp B/P (MAP) Pulse Ox O2 Delivery O2 Flow Rate FiO2 10/09/17 14:00 69 97/50 10/09/17 14:00 82 22 99/41 100 Mechanical Ventilator 40 10/09/17 13:01 69 23 40 10/09/17 13:00 80 21 102/45 98 Mechanical Ventilator 40 10/09/17 12:00 98.4 73 22 98/42 97 Mechanical Ventilator 40 98.4 10/09/17 12:00 40 10/09/17 12:00 72 10/09/17 11:01 208.4 74 18 100 10/09/17 11:00 75 20 100/45 98 Mechanical Ventilator 40 10/09/17 10:59 70 20 40 10/09/17 10:00 71 22 95/41 98 Mechanical Ventilator 40 10/09/17 09:20 67 20 40 10/09/17 09:00 67 24 92/42 98 Mechanical Ventilator 40 10/09/17 08:00 75 10/09/17 08:00 40 10/09/17 08:00 98.2 75 25 105/45 100 Mechanical Ventilator 40 98.2 10/09/17 07:03 73 21 40 10/09/17 07:00 81 24 101/41 93 Mechanical Ventilator 40 10/09/17 06:00 68 22 101/41 100 Mechanical Ventilator 40 10/09/17 05:54 69 108/46 10/09/17 05:02 63 19 40 10/09/17 05:00 68 24 101/41 100 Mechanical Ventilator 40 10/09/17 04:00 40 10/09/17 04:00 70 10/09/17 04:00 98.1 70 44 104/43 100 Mechanical Ventilator 40 98.1 10/09/17 03:16 67 18 40 10/09/17 03:00 71 17 105/48 96 Mechanical Ventilator 40 10/09/17 02:00 66 29 108/45 96 Mechanical Ventilator 40 10/09/17 01:00 98.4 66 29 109/54 95 Mechanical Ventilator 40 98.4 10/09/17 00:37 69 21 40 10/09/17 00:00 98.4 75 20 115/55 100 Mechanical Ventilator 40 98.4 10/09/17 00:00 70 10/09/17 00:00 40 10/08/17 23:00 75 20 115/55 100 Mechanical Ventilator 40 10/08/17 23:00 68 18 40 10/08/17 22:28 67 112/55 10/08/17 22:00 68 18 112/55 100 Mechanical Ventilator 40 10/08/17 21:30 66 17 40 10/08/17 21:00 68 18 112/70 94 Mechanical Ventilator 40 10/08/17 20:00 98.0 75 22 114/59 97 Mechanical Ventilator 60 98.0 10/08/17 20:00 73 10/08/17 19:30 62 18 40 10/08/17 19:00 80 20 111/56 97 Mechanical Ventilator 40 10/08/17 18:00 78 19 113/64 95 Mechanical Ventilator 40 10/08/17 17:40 40 10/08/17 17:21 78 124/59 10/08/17 17:11 78 18 40 10/08/17 17:00 79 19 134/72 94 Mechanical Ventilator 40 10/08/17 16:32 81 10/08/17 16:00 97.8 75 18 124/59 100 Mechanical Ventilator 60 97.8 Height (Feet): 5 Height (Inches): 5.00 Weight (Pounds): 108 Objective General Appearance: lethargic, thin EENT: normal ENT inspection Neck: non-tender, normal alignment, supple Cardiovascular: normal peripheral pulses, normal rate, regular rhythm, no gallop/murmur, no JVD Respiratory/Chest: Mechanical vent; respiratory distress, crackles/rales, rhonchi - bilaterally, expiratory wheezing Abdomen: normal bowel sounds, non tender, soft, no organomegaly, no mass Skin: normal pigmentation, warm/dry Laboratory Tests Test 10/09/17 04:00 10/09/17 09:40 White Blood Count 3.3 K/UL (4.8-10.8) #L Red Blood Count 2.71 M/UL (4.20-5.40) L Hemoglobin 8.4 G/DL (12.0-16.0) L Hematocrit 27.3 % (37.0-47.0) L Mean Corpuscular Volume 101 FL (80-99) H Mean Corpuscular Hemoglobin 30.8 PG (27.0-31.0) Mean Corpuscular Hemoglobin Concent 30.6 G/DL (32.0-36.0) L Red Cell Distribution Width 17.4 % (11.6-14.8) H Platelet Count 121 K/UL (150-450) L Mean Platelet Volume 10.8 FL (6.5-10.1) H Neutrophils (%) (Auto) % (45.0-75.0) Lymphocytes (%) (Auto) % (20.0-45.0) Monocytes (%) (Auto) % (1.0-10.0) Eosinophils (%) (Auto) % (0.0-3.0) Basophils (%) (Auto) % (0.0-2.0) Differential Total Cells Counted 100 Neutrophils % (Manual) 83 % (45-75) H Lymphocytes % (Manual) 9 % (20-45) L Monocytes % (Manual) 7 % (1-10) Eosinophils % (Manual) 1 % (0-3) Basophils % (Manual) 0 % (0-2) Band Neutrophils 0 % (0-8) Platelet Estimate Decreased L Platelet Morphology Normal Hypochromasia 1+ Anisocytosis 1+ Macrocytosis 1+ Prothrombin Time 36.7 SEC (9.30-11.50) H Prothromb Time International Ratio 3.5 (0.9-1.1) H Sodium Level 142 MMOL/L (136-145) Potassium Level 3.2 MMOL/L (3.5-5.1) L Chloride Level 108 MMOL/L (98-107) H Carbon Dioxide Level 25 MMOL/L (21-32) Anion Gap 9 mmol/L (5-15) Blood Urea Nitrogen 21 mg/dL (7-18) H Creatinine 0.6 MG/DL (0.55-1.30) Estimat Glomerular Filtration Rate mL/min (>60) Glucose Level 129 MG/DL (74-106) H Uric Acid 5.1 MG/DL (2.6-7.2) Calcium Level 7.5 MG/DL (8.5-10.1) L Phosphorus Level 3.7 MG/DL (2.5-4.9) Magnesium Level 1.7 MG/DL (1.8-2.4) L Total Bilirubin 10.4 MG/DL (0.2-1.0) H Direct Bilirubin 8.6 MG/DL (0.0-0.3) H Gamma Glutamyl Transpeptidase 542 U/L (5-85) H Aspartate Amino Transf (AST/SGOT) 75 U/L (15-37) H Alanine Aminotransferase (ALT/SGPT) 39 U/L (12-78) Alkaline Phosphatase 923 U/L (46-116) H Lactate Dehydrogenase 547 U/L (81-234) H Pro-B-Type Natriuretic Peptide 3206 pg/mL (0-125) H Total Protein 5.6 G/DL (6.4-8.2) L Albumin 1.5 G/DL (3.4-5.0) L Globulin 4.1 g/dL Albumin/Globulin Ratio 0.4 (1.0-2.7) L Haptoglobin Pending Fibrinogen 460 mg/dL (200-400) H Fibrin Degradation Products, Quant Pending D-Dimer 2.96 mg/L FEU (0.00-0.49) H Current Medications Medications (Trade) Dose Ordered Sig/Hermes Route PRN Reason Start Time Stop Time Status Last Admin Dose Admin Acetaminophen (Tylenol) 650 mg EVERY 6 HOURS PRN NG Fever/Headache/Mild Pain 09/13/17 20:45 10/13/17 20:44 10/03/17 12:25 Clonidine HCl (Catapres Tab) 0.1 mg Q4H PRN ORAL SBP>160 UNRELIEVED BY HYDRALAZ 09/16/17 16:45 10/15/17 16:59 Dextrose (Dextrose 50%) STAT PRN IV Hypoglycemia 09/13/17 15:00 10/13/17 14:59 Diltiazem HCl (Cardizem) 30 mg EVERY 8 HOURS NG 10/04/17 14:00 11/03/17 13:59 10/09/17 05:54 Ertapenem 1 gm/ Sodium Chloride 110 ml @ 220 mls/hr Q24H IVPB 10/04/17 12:00 10/11/17 11:59 10/09/17 13:18 Furosemide (Lasix) 40 mg EVERY 12 HOURS IV 10/08/17 09:00 11/07/17 08:59 10/09/17 09:50 Insulin Aspart (NovoLOG) EVERY 6 HOURS SUBQ 09/17/17 12:00 10/17/17 11:59 10/09/17 05:55 Ketotifen Fumarate (Zatidor) 1 drop DAILY BOTH EYES 09/26/17 09:00 10/25/17 08:59 10/09/17 09:00 Micafungin Sodium 100 mg/Dextrose 110 ml @ 110 mls/hr Q24H IVPB 10/07/17 13:00 10/14/17 12:59 10/09/17 13:18 Pantoprazole (Protonix) 40 mg DAILY IVP 10/02/17 09:00 11/01/17 08:59 10/09/17 09:51 Polyethylene Glycol (Miralax) 17 gm BEDTIME ORAL 09/14/17 21:00 10/14/17 20:59 10/06/17 21:22 Madelyn Frey M.D. Oct 09, 2017 15:13
--- NOTE | 2017-10-09 15:13 | Internal Med Progress Note ---
Subjective Physician Name Jesus Barahona Attending Physician Jesus Barahona MD Current Medications Medications (Trade) Dose Ordered Sig/Hermes Route PRN Reason Start Time Stop Time Status Last Admin Dose Admin Acetaminophen (Tylenol) 650 mg EVERY 6 HOURS PRN NG Fever/Headache/Mild Pain 09/13/17 20:45 10/13/17 20:44 10/03/17 12:25 Clonidine HCl (Catapres Tab) 0.1 mg Q4H PRN ORAL SBP>160 UNRELIEVED BY HYDRALAZ 09/16/17 16:45 10/15/17 16:59 Dextrose (Dextrose 50%) STAT PRN IV Hypoglycemia 09/13/17 15:00 10/13/17 14:59 Diltiazem HCl (Cardizem) 30 mg EVERY 8 HOURS NG 10/04/17 14:00 11/03/17 13:59 10/09/17 05:54 Ertapenem 1 gm/ Sodium Chloride 110 ml @ 220 mls/hr Q24H IVPB 10/04/17 12:00 10/11/17 11:59 10/09/17 13:18 Furosemide (Lasix) 40 mg EVERY 12 HOURS IV 10/08/17 09:00 11/07/17 08:59 10/09/17 09:50 Insulin Aspart (NovoLOG) EVERY 6 HOURS SUBQ 09/17/17 12:00 10/17/17 11:59 10/09/17 05:55 Ketotifen Fumarate (Zatidor) 1 drop DAILY BOTH EYES 09/26/17 09:00 10/25/17 08:59 10/09/17 09:00 Micafungin Sodium 100 mg/Dextrose 110 ml @ 110 mls/hr Q24H IVPB 10/07/17 13:00 10/14/17 12:59 10/09/17 13:18 Pantoprazole (Protonix) 40 mg DAILY IVP 10/02/17 09:00 11/01/17 08:59 10/09/17 09:51 Polyethylene Glycol (Miralax) 17 gm BEDTIME ORAL 09/14/17 21:00 10/14/17 20:59 10/06/17 21:22 Allergies: Coded Allergies: No Known Allergies (Verified , 11/18/08) Subjective awake, responsive , in ICU, intubated on Vent, WBC: 3.3 Objective Last Vital Signs Date Time Temp Pulse Resp B/P (MAP) Pulse Ox O2 Delivery O2 Flow Rate FiO2 10/09/17 14:00 69 97/50 10/09/17 14:00 22 100 Mechanical Ventilator 40 10/09/17 12:00 98.4 98.4 10/04/17 04:00 Laboratory Tests Test 10/09/17 04:00 10/09/17 09:40 White Blood Count 3.3 K/UL (4.8-10.8) #L Red Blood Count 2.71 M/UL (4.20-5.40) L Hemoglobin 8.4 G/DL (12.0-16.0) L Hematocrit 27.3 % (37.0-47.0) L Mean Corpuscular Volume 101 FL (80-99) H Mean Corpuscular Hemoglobin 30.8 PG (27.0-31.0) Mean Corpuscular Hemoglobin Concent 30.6 G/DL (32.0-36.0) L Red Cell Distribution Width 17.4 % (11.6-14.8) H Platelet Count 121 K/UL (150-450) L Mean Platelet Volume 10.8 FL (6.5-10.1) H Neutrophils (%) (Auto) % (45.0-75.0) Lymphocytes (%) (Auto) % (20.0-45.0) Monocytes (%) (Auto) % (1.0-10.0) Eosinophils (%) (Auto) % (0.0-3.0) Basophils (%) (Auto) % (0.0-2.0) Differential Total Cells Counted 100 Neutrophils % (Manual) 83 % (45-75) H Lymphocytes % (Manual) 9 % (20-45) L Monocytes % (Manual) 7 % (1-10) Eosinophils % (Manual) 1 % (0-3) Basophils % (Manual) 0 % (0-2) Band Neutrophils 0 % (0-8) Platelet Estimate Decreased L Platelet Morphology Normal Hypochromasia 1+ Anisocytosis 1+ Macrocytosis 1+ Prothrombin Time 36.7 SEC (9.30-11.50) H Prothromb Time International Ratio 3.5 (0.9-1.1) H Sodium Level 142 MMOL/L (136-145) Potassium Level 3.2 MMOL/L (3.5-5.1) L Chloride Level 108 MMOL/L (98-107) H Carbon Dioxide Level 25 MMOL/L (21-32) Anion Gap 9 mmol/L (5-15) Blood Urea Nitrogen 21 mg/dL (7-18) H Creatinine 0.6 MG/DL (0.55-1.30) Estimat Glomerular Filtration Rate mL/min (>60) Glucose Level 129 MG/DL (74-106) H Uric Acid 5.1 MG/DL (2.6-7.2) Calcium Level 7.5 MG/DL (8.5-10.1) L Phosphorus Level 3.7 MG/DL (2.5-4.9) Magnesium Level 1.7 MG/DL (1.8-2.4) L Total Bilirubin 10.4 MG/DL (0.2-1.0) H Direct Bilirubin 8.6 MG/DL (0.0-0.3) H Gamma Glutamyl Transpeptidase 542 U/L (5-85) H Aspartate Amino Transf (AST/SGOT) 75 U/L (15-37) H Alanine Aminotransferase (ALT/SGPT) 39 U/L (12-78) Alkaline Phosphatase 923 U/L (46-116) H Lactate Dehydrogenase 547 U/L (81-234) H Pro-B-Type Natriuretic Peptide 3206 pg/mL (0-125) H Total Protein 5.6 G/DL (6.4-8.2) L Albumin 1.5 G/DL (3.4-5.0) L Globulin 4.1 g/dL Albumin/Globulin Ratio 0.4 (1.0-2.7) L Haptoglobin Pending Fibrinogen 460 mg/dL (200-400) H Fibrin Degradation Products, Quant Pending D-Dimer 2.96 mg/L FEU (0.00-0.49) H Intake and Output 10/08/17 10/09/17 19:00 07:00 Intake Total 426 ml 240 ml Output Total 1516 ml 1420 ml Balance -1090 ml -1180 ml Intake Free Water 50 ml IV Total 426 ml Tube Feeding 190 ml Output Urine Total 1515 ml 1420 ml Stool Total 1 ml # Bowel Movements 1 4 Objective General: No acute distress, awake and responsive, intubated. HEENT: NCAT, sclera anicteric, PERRL, EOMI, ET Tube, NG tube. Neck: Supple, no significant jugular venous distention, Lungs: Mechanical breath sound, clear to auscultation bilaterally, no Wheeze. Heart: Regular rate and rhythm, normal S1/S2, no murmurs. Abdomen: soft, less tender, nondistended. Normoactive bowel sounds. : Davidson cath. Extremities: No Cyanosis , clubbing or edema. Neuro:, Able to move all extremities Skin: warm, no rashes .. Assessment/Plan Assessment/Plan (1) Abnormal LFTs with gallbladder sludge (2) Aspiration pneumonia (3) ARDS (adult respiratory distress syndrome) (4) Protein-calorie malnutrition, severe (5) UTI (urinary tract infection) (6) Respiratory failure (7) Sepsis (8) Parkinson disease (9) GERD (gastroesophageal reflux disease) (10) Thrombocytopenia (11) Electrolyte imbalance (12) Leukocytosis (13) Coagulopathy (14) Cholangitis (15) Acute Respiratory Failure. Plan: postpone trach and bronchoscopy due to coagulopathy FFP and Vit K Abx: Micafungin and Ertapenem monitor labs and Cultures F/U with Dr. Parekh recommendations. Tube feeding @ 40 cc/hr Jesus Barahona MD Oct 09, 2017 15:13
[2017-10-09] MEDS ORDERED: Phytonadione 10 mg/mL 1ml amp SUBQ ONE (16:00)
[2017-10-09] MEDS ORDERED: Magnesium Sulfate 2,000 MG in D5W 100 ML IV ONE (17:00)
--- NOTE | 2017-10-09 20:17 | General Progress Note ---
Assessment/Plan Assessment/Plan Assessment - Resp failure / ARDS / PNA - Abnormal LFT, Biliary obstruction - s/p biliary and pancreatic stent - Persistent jaundice and worsening INR - ? DIC - Anemia with OB (+) stools - coagulopathy - Malnutrition - hypernatremia - AMS Recommendations - replace lytes - transfuse PRN - Elevate HOB - Vent care - Monitor labs - abx -follow LFT after stent - vitamin K Subjective Allergies: Coded Allergies: No Known Allergies (Verified , 11/18/08) Subjective Above noted seen earlier today s/p ERCP and stent placement Bilirubin and INR both higher today Trach postponed Objective Last 24 Hour Vital Signs Date Time Temp Pulse Resp B/P (MAP) Pulse Ox O2 Delivery O2 Flow Rate FiO2 10/09/17 19:26 77 25 40 10/09/17 19:00 75 25 105/44 99 Mechanical Ventilator 40 10/09/17 18:00 76 27 110/43 100 Mechanical Ventilator 40 10/09/17 17:07 70 23 40 10/09/17 17:00 77 27 114/60 100 Mechanical Ventilator 40 10/09/17 16:00 40 10/09/17 16:00 77 10/09/17 16:00 98.4 71 29 109/43 99 Mechanical Ventilator 40 98.4 10/09/17 15:09 74 22 40 10/09/17 15:00 69 22 105/40 99 Mechanical Ventilator 40 10/09/17 14:00 69 97/50 10/09/17 14:00 82 22 99/41 100 Mechanical Ventilator 40 10/09/17 13:01 69 23 40 10/09/17 13:00 80 21 102/45 98 Mechanical Ventilator 40 10/09/17 12:00 98.4 73 22 98/42 97 Mechanical Ventilator 40 98.4 10/09/17 12:00 40 10/09/17 12:00 72 10/09/17 11:01 208.4 74 18 100 10/09/17 11:00 75 20 100/45 98 Mechanical Ventilator 40 10/09/17 10:59 70 20 40 10/09/17 10:00 71 22 95/41 98 Mechanical Ventilator 40 10/09/17 09:20 67 20 40 10/09/17 09:00 67 24 92/42 98 Mechanical Ventilator 40 10/09/17 08:00 75 10/09/17 08:00 40 10/09/17 08:00 98.2 75 25 105/45 100 Mechanical Ventilator 40 98.2 10/09/17 07:03 73 21 40 10/09/17 07:00 81 24 101/41 93 Mechanical Ventilator 40 10/09/17 06:00 68 22 101/41 100 Mechanical Ventilator 40 10/09/17 05:54 69 108/46 10/09/17 05:02 63 19 40 10/09/17 05:00 68 24 101/41 100 Mechanical Ventilator 40 10/09/17 04:00 40 10/09/17 04:00 70 10/09/17 04:00 98.1 70 44 104/43 100 Mechanical Ventilator 40 98.1 10/09/17 03:16 67 18 40 10/09/17 03:00 71 17 105/48 96 Mechanical Ventilator 40 10/09/17 02:00 66 29 108/45 96 Mechanical Ventilator 40 10/09/17 01:00 98.4 66 29 109/54 95 Mechanical Ventilator 40 98.4 10/09/17 00:37 69 21 40 10/09/17 00:00 98.4 75 20 115/55 100 Mechanical Ventilator 40 98.4 10/09/17 00:00 70 10/09/17 00:00 40 10/08/17 23:00 75 20 115/55 100 Mechanical Ventilator 40 10/08/17 23:00 68 18 40 10/08/17 22:28 67 112/55 10/08/17 22:00 68 18 112/55 100 Mechanical Ventilator 40 10/08/17 21:30 66 17 40 10/08/17 21:00 68 18 112/70 94 Mechanical Ventilator 40 Intake and Output 10/08/17 10/09/17 19:00 07:00 Intake Total 426 ml 240 ml Output Total 1516 ml 1420 ml Balance -1090 ml -1180 ml Intake Free Water 50 ml IV Total 426 ml Tube Feeding 190 ml Output Urine Total 1515 ml 1420 ml Stool Total 1 ml # Bowel Movements 1 4 Laboratory Tests 10/09/17 04:00: White Blood Count 3.3#L, Red Blood Count 2.71L, Hemoglobin 8.4L, Hematocrit 27.3L, Mean Corpuscular Volume 101H, Mean Corpuscular Hemoglobin 30.8, Mean Corpuscular Hemoglobin Concent 30.6L, Red Cell Distribution Width 17.4H, Platelet Count 121L, Mean Platelet Volume 10.8H, Neutrophils (%) (Auto) , Lymphocytes (%) (Auto) , Monocytes (%) (Auto) , Eosinophils (%) (Auto) , Basophils (%) (Auto) , Differential Total Cells Counted 100, Neutrophils % ( Manual) 83H, Lymphocytes % (Manual) 9L, Monocytes % (Manual) 7, Eosinophils % ( Manual) 1, Basophils % (Manual) 0, Band Neutrophils 0, Platelet Estimate DecreasedL, Platelet Morphology Normal, Hypochromasia 1+, Anisocytosis 1+, Macrocytosis 1+, Prothrombin Time 36.7H, Prothromb Time International Ratio 3.5H , Sodium Level 142, Potassium Level 3.2L, Chloride Level 108H, Carbon Dioxide Level 25, Anion Gap 9, Blood Urea Nitrogen 21H, Creatinine 0.6, Estimat Glomerular Filtration Rate , Glucose Level 129H, Uric Acid 5.1, Calcium Level 7.5L, Phosphorus Level 3.7, Magnesium Level 1.7L, Total Bilirubin 10.4H, Direct Bilirubin 8.6H, Gamma Glutamyl Transpeptidase 542H, Aspartate Amino Transf (AST/ SGOT) 75H, Alanine Aminotransferase (ALT/SGPT) 39, Alkaline Phosphatase 923H, Lactate Dehydrogenase 547H, Pro-B-Type Natriuretic Peptide 3206H, Total Protein 5.6L, Albumin 1.5L, Globulin 4.1, Albumin/Globulin Ratio 0.4L 10/09/17 09:40: Haptoglobin [Pending], Fibrinogen 460H, Fibrin Degradation Products, Quant [ Pending], D-Dimer 2.96H Height (Feet): 5 Height (Inches): 5.00 Weight (Pounds): 108 Objective WDWN NCAT , (+) ETT supple CTA RRR abd soft (+) edema non verbal DOMIDONITAYANIRA Oct 09, 2017 20:17
[2017-10-09] MEDS: Miralax 17gm pkt ORAL SCH (20:52)
--- NOTE | 2017-10-09 23:38 | General Progress Note ---
Assessment/Plan Assessment/Plan #. Coagulopathy - potentially related to DIC early onset, will obtain hapto, inr repeat, fibrinogen, DIC panel --> administer FFP 4 units and vitamin k repeat prior to procedure --> MICHELLE pulsalomon Parekh --> Likely related to infection versus other cause #. Pancytopenia --> WBC count and platelet counts have been low --> Transfuse platelets if <20k --> Monitor and trend cbc daily. #. Anemia due to underlying chronic disease. Continue to closely monitor. --> Hemoglobin goal is above 7. --> Occult blood detected. Consider GI recs. --> Transfuse as necessary --> Blood transfusion not required unless symptomatic or hgb below goal. #. Leukocytosis likely related to underlying pneumonia infection. --> Resolved on antibiotic treatment. #. Thrombocytopenia, severe and progressive, acute onset, likely secondary to underlying infection, aspiration, hit was negative --> Duplex of the lower extremities is negative, therefore less likely HIT and other causes are more likely such as underlying infection. --> Platelets goal >20k, transfuse if necessary. --> On antibiotics as per ID #. Community-acquired pneumonia versus hospital-acquired. --> The patient on broad-spectrum antibiotics. --> Improved. --> Urine culture growing E. coli. Continue to closely monitor. #. Transaminitis. She has been seen by GI Service. Continue to closely monitor. #. Low-grade fever. Closely observe. #. Encephalopathy. Subjective Date patient seen: Oct 09, 2017 Constitutional: Denies: no symptoms, chills, diaphoresis, fever, malaise, weakness, other HEENT: Denies: no symptoms, eye pain, blurred vision, tearing, double vision, ear pain, ear discharge, nose pain, nose congestion, throat pain, throat swelling, mouth pain, mouth swelling, other Cardiovascular: Denies: no symptoms, chest pain, edema, irregular heart rate, lightheadedness, palpitations, syncope, other Respiratory: Denies: no symptoms, cough, orthopnea, shortness of breath, SOB with excertion, SOB at rest, sputum, stridor, wheezing, other Gastrointestinal/Abdominal: Denies: no symptoms, abdomen distended, abdominal pain, black stools, tarry stools, blood in stool, constipated, diarrhea, difficulty swallowing, nausea, poor appetite, poor fluid intake, rectal bleeding , vomiting, other Genitourinary: Denies: no symptoms, burning, discharge, frequency, flank pain, hematuria, incontinence, pain, urgency, other 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: Denies: no symptoms, anxiety, depressed, emotional problems, headache, numbness, paresthesia, pre-existing deficit, seizure, tingling, tremors, weakness, other Hematologic/Lymphatic: Reports: anemia Allergies: Coded Allergies: No Known Allergies (Verified , 11/18/08) Subjective On vent in ICU. Low wbc and platelets. Objective Last 24 Hour Vital Signs Date Time Temp Pulse Resp B/P (MAP) Pulse Ox O2 Delivery O2 Flow Rate FiO2 10/09/17 23:00 70 21 40 10/09/17 22:32 74 119/53 10/09/17 21:01 74 23 40 10/09/17 19:26 77 25 40 10/09/17 19:00 75 25 105/44 99 Mechanical Ventilator 40 10/09/17 18:00 76 27 110/43 100 Mechanical Ventilator 40 10/09/17 17:07 70 23 40 10/09/17 17:00 77 27 114/60 100 Mechanical Ventilator 40 10/09/17 16:00 40 10/09/17 16:00 77 10/09/17 16:00 98.4 71 29 109/43 99 Mechanical Ventilator 40 98.4 10/09/17 15:09 74 22 40 10/09/17 15:00 69 22 105/40 99 Mechanical Ventilator 40 10/09/17 14:00 69 97/50 10/09/17 14:00 82 22 99/41 100 Mechanical Ventilator 40 10/09/17 13:01 69 23 40 10/09/17 13:00 80 21 102/45 98 Mechanical Ventilator 40 10/09/17 12:00 98.4 73 22 98/42 97 Mechanical Ventilator 40 98.4 10/09/17 12:00 40 10/09/17 12:00 72 10/09/17 11:01 208.4 74 18 100 10/09/17 11:00 75 20 100/45 98 Mechanical Ventilator 40 10/09/17 10:59 70 20 40 10/09/17 10:00 71 22 95/41 98 Mechanical Ventilator 40 10/09/17 09:20 67 20 40 3/29/18 09:00 67 24 92/42 98 Mechanical Ventilator 40 10/09/17 08:00 75 10/09/17 08:00 40 10/09/17 08:00 98.2 75 25 105/45 100 Mechanical Ventilator 40 98.2 10/09/17 07:03 73 21 40 10/09/17 07:00 81 24 101/41 93 Mechanical Ventilator 40 10/09/17 06:00 68 22 101/41 100 Mechanical Ventilator 40 10/09/17 05:54 69 108/46 10/09/17 05:02 63 19 40 10/09/17 05:00 68 24 101/41 100 Mechanical Ventilator 40 10/09/17 04:00 40 10/09/17 04:00 70 10/09/17 04:00 98.1 70 44 104/43 100 Mechanical Ventilator 40 98.1 10/09/17 03:16 67 18 40 10/09/17 03:00 71 17 105/48 96 Mechanical Ventilator 40 10/09/17 02:00 66 29 108/45 96 Mechanical Ventilator 40 10/09/17 01:00 98.4 66 29 109/54 95 Mechanical Ventilator 40 98.4 10/09/17 00:37 69 21 40 10/09/17 00:00 98.4 75 20 115/55 100 Mechanical Ventilator 40 98.4 10/09/17 00:00 70 10/09/17 00:00 40 Intake and Output 10/08/17 10/09/17 19:00 07:00 Intake Total 426 ml 240 ml Output Total 1516 ml 1420 ml Balance -1090 ml -1180 ml Intake Free Water 50 ml IV Total 426 ml Tube Feeding 190 ml Output Urine Total 1515 ml 1420 ml Stool Total 1 ml # Bowel Movements 1 4 Laboratory Tests 10/09/17 04:00: White Blood Count 3.3#L, Red Blood Count 2.71L, Hemoglobin 8.4L, Hematocrit 27.3L, Mean Corpuscular Volume 101H, Mean Corpuscular Hemoglobin 30.8, Mean Corpuscular Hemoglobin Concent 30.6L, Red Cell Distribution Width 17.4H, Platelet Count 121L, Mean Platelet Volume 10.8H, Neutrophils (%) (Auto) , Lymphocytes (%) (Auto) , Monocytes (%) (Auto) , Eosinophils (%) (Auto) , Basophils (%) (Auto) , Differential Total Cells Counted 100, Neutrophils % ( Manual) 83H, Lymphocytes % (Manual) 9L, Monocytes % (Manual) 7, Eosinophils % ( Manual) 1, Basophils % (Manual) 0, Band Neutrophils 0, Platelet Estimate DecreasedL, Platelet Morphology Normal, Hypochromasia 1+, Anisocytosis 1+, Macrocytosis 1+, Prothrombin Time 36.7H, Prothromb Time International Ratio 3.5H , Sodium Level 142, Potassium Level 3.2L, Chloride Level 108H, Carbon Dioxide Level 25, Anion Gap 9, Blood Urea Nitrogen 21H, Creatinine 0.6, Estimat Glomerular Filtration Rate , Glucose Level 129H, Uric Acid 5.1, Calcium Level 7.5L, Phosphorus Level 3.7, Magnesium Level 1.7L, Total Bilirubin 10.4H, Direct Bilirubin 8.6H, Gamma Glutamyl Transpeptidase 542H, Aspartate Amino Transf (AST/ SGOT) 75H, Alanine Aminotransferase (ALT/SGPT) 39, Alkaline Phosphatase 923H, Lactate Dehydrogenase 547H, Pro-B-Type Natriuretic Peptide 3206H, Total Protein 5.6L, Albumin 1.5L, Globulin 4.1, Albumin/Globulin Ratio 0.4L 10/09/17 09:40: Haptoglobin [Pending], Fibrinogen 460H, Fibrin Degradation Products, Quant [ Pending], D-Dimer 2.96H Height (Feet): 5 Height (Inches): 5.00 Weight (Pounds): 108 General Appearance: confused Respiratory/Chest: decreased breath sounds Abdomen: soft Edema: trace edema Johnny Sinha MD Oct 09, 2017 23:38
[2017-10-10] VITALS (24 sets, daily range): BP systolic 107–141; BP diastolic 45–75
[2017-10-10] MEDS: NovoLOG Insulin Flexpen SUBQ SCH ×5 (00:12→23:33)
[2017-10-10 01:37] LABS: INR 1.1 (0.9-1.1)
[2017-10-10 05:19] LABS: BASOPHILS % (AUTO) 0.9 % (0.0-2.0); EOSINOPHILS % (AUTO) 0.1 % (0.0-3.0); HEMOGLOBIN 8.8 G/DL (12.0-16.0); LYMPHOCYTES % (AUTO) 6.4 % (20.0-45.0); MEAN CORPUSCULAR VOLUME 100 FL (80-99); MONOCYTES % (AUTO) 8.4 % (1.0-10.0); NEUTROPHILS % (AUTO) 84.2 % (45.0-75.0); PLATELET COUNT 152 K/UL (150-450); RED CELL DISTRIBUTION WIDTH 17.5 % (11.6-14.8); WHITE BLOOD COUNT 7.6 K/UL (4.8-10.8)
[2017-10-10 05:51] LABS: ALANINE AMINOTRANSFERASE 57 U/L (12-78); ALBUMIN 1.9 G/DL (3.4-5.0); ALBUMIN/GLOBULIN RATIO 0.5 (1.0-2.7); ALKALINE PHOSPHATASE 1120 U/L (46-116); ANION GAP 9 mmol/L (5-15); ASPARTATE AMINO TRANSFERASE 82 U/L (15-37); BLOOD UREA NITROGEN 29 mg/dL (7-18); CALCIUM 7.8 MG/DL (8.5-10.1); CARBON DIOXIDE 27 MMOL/L (21-32); CHLORIDE 107 MMOL/L (98-107); CREATININE 0.8 MG/DL (0.55-1.30); PHOSPHORUS 2.8 MG/DL (2.5-4.9); POTASSIUM 2.9 MMOL/L (3.5-5.1); SODIUM 143 MMOL/L (136-145)
[2017-10-10 05:55] LABS: BILIRUBIN,DIRECT 6.6 MG/DL (0.0-0.3)
[2017-10-10] MEDS: dilTIAZem HCl 30mg tab NG SCH ×2 (06:00→13:39)
--- NOTE | 2017-10-10 08:16 | Pulmonolgy Critical Care Note ---
Critical Care - Asmt/Plan Problems: (1) Abnormal LFTs (2) Aspiration pneumonia (3) ARDS (adult respiratory distress syndrome) (4) Protein-calorie malnutrition, severe (5) UTI (urinary tract infection) (6) Respiratory failure (7) Sepsis (8) Parkinsons disease (9) GERD (gastroesophageal reflux disease) (10) Thrombocytopenia (11) Electrolyte imbalance (12) Leukocytosis (13) Coagulopathy (14) Cholangitis Respiratory: other - Awaiting consent for bronch and trach, RTC and PRN HHN's, pulmonary hygiene/mobilzie as tolerated Cardiac: continue to monitor HR/BP, other - F/U cardiology recs Renal: F/U I&O, check electrolytes, other - continue diuresis as tolerated Infectious Disease: continue antibiotics - per ID Gastrointestinal: other - Monitor LFT's, TF's held for trach/bronch, F/U GI recs Endocrine: monitor blood sugar Hematologic: monitor H/H Neurologic: keep patient comfortable Prophylaxis: Protonix, Heparin Disposition: keep in ICU Time Spent (Minutes): 60 Notes Reviewed: hr business partner, cardio, renal, ID, GI Discussed with: nurses, consultants, family member Critical Care - Objective Last 24 Hour Vital Signs Date Time Temp Pulse Resp B/P (MAP) Pulse Ox O2 Delivery O2 Flow Rate FiO2 10/10/17 08:00 40 10/10/17 07:00 61 23 125/50 100 Mechanical Ventilator 40 10/10/17 06:00 62 24 116/48 98 Mechanical Ventilator 40 10/10/17 06:00 68 116/48 10/10/17 05:01 72 20 40 10/10/17 05:00 74 24 120/45 98 Mechanical Ventilator 40 10/10/17 04:00 75 10/10/17 04:00 98.0 75 26 122/51 98 Mechanical Ventilator 40 98.0 10/10/17 04:00 40 10/10/17 03:23 75 23 40 10/10/17 03:00 75 31 126/54 98 Mechanical Ventilator 40 10/10/17 02:00 71 31 126/54 98 Mechanical Ventilator 40 10/10/17 01:00 73 22 40 10/10/17 01:00 74 27 123/50 98 Mechanical Ventilator 40 10/10/17 00:00 98.2 77 23 112/49 99 Mechanical Ventilator 40 98.2 10/10/17 00:00 40 10/10/17 00:00 76 10/09/17 23:00 70 21 40 10/09/17 23:00 70 23 110/46 99 Mechanical Ventilator 40 10/09/17 22:32 74 119/53 10/09/17 22:00 75 23 119/53 99 Mechanical Ventilator 40 10/09/17 21:01 74 23 40 10/09/17 21:00 74 28 115/44 99 Mechanical Ventilator 40 10/09/17 20:00 72 10/09/17 20:00 98.0 72 29 106/47 99 Mechanical Ventilator 40 98.0 10/09/17 20:00 40 10/09/17 19:26 77 25 40 10/09/17 19:00 75 25 105/44 99 Mechanical Ventilator 40 10/09/17 18:00 76 27 110/43 100 Mechanical Ventilator 40 10/09/17 17:07 70 23 40 10/09/17 17:00 77 27 114/60 100 Mechanical Ventilator 40 10/09/17 16:00 40 10/09/17 16:00 77 10/09/17 16:00 98.4 71 29 109/43 99 Mechanical Ventilator 40 98.4 10/09/17 15:09 74 22 40 10/09/17 15:00 69 22 105/40 99 Mechanical Ventilator 40 10/09/17 14:00 69 97/50 10/09/17 14:00 82 22 99/41 100 Mechanical Ventilator 40 10/09/17 13:01 69 23 40 10/09/17 13:00 80 21 102/45 98 Mechanical Ventilator 40 10/09/17 12:00 98.4 73 22 98/42 97 Mechanical Ventilator 40 98.4 10/09/17 12:00 40 10/09/17 12:00 72 10/09/17 11:01 208.4 74 18 100 10/09/17 11:00 75 20 100/45 98 Mechanical Ventilator 40 10/09/17 10:59 70 20 40 10/09/17 10:00 71 22 95/41 98 Mechanical Ventilator 40 10/09/17 09:20 67 20 40 10/09/17 09:00 67 24 92/42 98 Mechanical Ventilator 40 Status: awake Condition: improving HEENT: atraumatic, normocephalic, other - ETT and NGT Lungs: rhonchi - scattered but improved air movement Heart: HR/BP stable - x for sinus lane this am Abdomen: soft, non-tender, active bowel sounds Extremities: edema - minimal Micro: Microbiology Date/Time Source Procedure Growth Status 10/09/17 09:00 Sputum Expectorated Gram Stain - Final Resulted 10/09/17 09:00 Sputum Expectorated Sputum Culture - Preliminary NO GROWTH AFTER 24 HOURS Resulted Accucheck: 144 Blood Sugars: BS controlled Critical Care - Subjective ROS Limited/Unobtainable: Yes ICU Day: 29 Intubation Day: 28 Interval Events: S/P 2U FFP and Vit K INR 1.1 Still awaiting consent MS better No sig secretions LFT's slightly improved, remainder of AML pending FI02: 40 Vent Support Breath Rate: 18 Vent Support Mode: AC Vent Tidal Volume: 500 Sputum Amount: Small PEEP: 5.0 PIP: 41 Tube Feeding Amount: 50 I&O: Intake and Output 10/09/17 10/10/17 19:00 07:00 Intake Total 780 ml 250 ml Output Total 640 ml 1161 ml Balance 140 ml -911 ml IV Total 220 ml Tube Feeding 560 ml 250 ml Output Urine Total 640 ml 1160 ml Stool Total 1 ml # Bowel Movements 1 6 Subjective: More alert today but still obtunded ET-Tube: 7.5 ET Position: 20 Labs: Laboratory Tests Test 10/09/17 09:40 10/10/17 00:50 10/10/17 04:15 Haptoglobin Pending Fibrinogen 460 mg/dL (200-400) H Fibrin Degradation Products, Quant Pending D-Dimer 2.96 mg/L FEU (0.00-0.49) H Prothrombin Time 12.0 SEC (9.30-11.50) H Prothromb Time International Ratio 1.1 (0.9-1.1) White Blood Count 7.6 K/UL (4.8-10.8) # Red Blood Count 2.80 M/UL (4.20-5.40) L Hemoglobin 8.8 G/DL (12.0-16.0) L Hematocrit 28.0 % (37.0-47.0) L Mean Corpuscular Volume 100 FL (80-99) H Mean Corpuscular Hemoglobin 31.6 PG (27.0-31.0) H Mean Corpuscular Hemoglobin Concent 31.5 G/DL (32.0-36.0) L Red Cell Distribution Width 17.5 % (11.6-14.8) H Platelet Count 152 K/UL (150-450) Mean Platelet Volume 9.3 FL (6.5-10.1) Neutrophils (%) (Auto) 84.2 % (45.0-75.0) H Lymphocytes (%) (Auto) 6.4 % (20.0-45.0) L Monocytes (%) (Auto) 8.4 % (1.0-10.0) Eosinophils (%) (Auto) 0.1 % (0.0-3.0) Basophils (%) (Auto) 0.9 % (0.0-2.0) Activated Partial Thromboplast Time 26 SEC (23-33) Sodium Level 143 MMOL/L (136-145) Potassium Level 2.9 MMOL/L (3.5-5.1) L Chloride Level 107 MMOL/L (98-107) Carbon Dioxide Level 27 MMOL/L (21-32) Anion Gap 9 mmol/L (5-15) Blood Urea Nitrogen 29 mg/dL (7-18) H Creatinine 0.8 MG/DL (0.55-1.30) Estimat Glomerular Filtration Rate mL/min (>60) Glucose Level 145 MG/DL (74-106) H Calcium Level 7.8 MG/DL (8.5-10.1) L Phosphorus Level 2.8 MG/DL (2.5-4.9) Magnesium Level 2.3 MG/DL (1.8-2.4) Total Bilirubin 8.0 MG/DL (0.2-1.0) H Direct Bilirubin 6.6 MG/DL (0.0-0.3) H Aspartate Amino Transf (AST/SGOT) 82 U/L (15-37) H Alanine Aminotransferase (ALT/SGPT) 57 U/L (12-78) Alkaline Phosphatase 1120 U/L (46-116) H Total Protein 6.1 G/DL (6.4-8.2) L Albumin 1.9 G/DL (3.4-5.0) L Globulin 4.2 g/dL Albumin/Globulin Ratio 0.5 (1.0-2.7) L DEYA CHRISTINE M.D. Oct 10, 2017 08:16
[2017-10-10] MEDS: Pantoprazole Inj IVP SCH (09:25)
[2017-10-10] MEDS: Ketotifen Fumarate 0.035% 5ml BOTH EYES SCH (09:26)
[2017-10-10] MEDS ORDERED: Tubing Blood Filter IV ONE (10:08)
[2017-10-10] MEDS ORDERED: NS 275ml ONE (10:08)
--- NOTE | 2017-10-10 10:28 | General Progress Note ---
Progress Note Progress Note Surgery: Had repeat ERCP with Stent. initially transient increase in LFT's but now trending down and labs improving. Had elevated INR but now improving. given improvement will be able to schedule for tracheostomy. Trach scheduled for 10AM friday. will monitor and continue to reassess during the weekend for changes . consent obtained from family. plan to do bronch at same time as viki. Adryan Echevarria Oct 10, 2017 10:28
[2017-10-10] MEDS ORDERED: SODIUM CHLORIDE IVPB ONE (11:00)
[2017-10-10] MEDS ORDERED: Potassium Chloride 60 MEQ in NS 1000ml 1,000 ML IVPB ONE (11:00)
[2017-10-10] MEDS ORDERED: POTASSIUM CHLORIDE IVPB ONE (11:00)
--- NOTE | 2017-10-10 11:49 | Nephrology Progress Note ---
Assessment/Plan Problem List: (1) ARDS (adult respiratory distress syndrome) (2) Electrolyte imbalance (3) Thrombocytopenia Assessment (1) ARDS (adult respiratory distress syndrome) (2) Aspiration pneumonia (3) Protein-calorie malnutrition, severe (4) Diabetes mellitus (5) Anemia , aplastic by history (6) DM (7) UTI (8) Electrolyte imbalance (9) HTN (10) Depression (11) RA . Plan stable agree with diuresis and K supplement due trach no set date k via NGT as needed water via NGT Adjust BP meds K and Phos supplement as needed Monitor renal parameters and urine output avoid nephrotoxics per orders discussed with RN Left ventricular ejection fraction estimated to be 55 %. Subjective ROS Limited/Unobtainable: Yes Objective Objective Last 24 Hour Vital Signs Date Time Temp Pulse Resp B/P (MAP) Pulse Ox O2 Delivery O2 Flow Rate FiO2 10/10/17 11:20 73 19 40 10/10/17 10:00 68 32 128/58 97 Mechanical Ventilator 40 10/10/17 09:03 63 18 40 10/10/17 09:00 65 31 109/72 97 Mechanical Ventilator 40 10/10/17 08:00 97.4 61 28 130/51 100 Mechanical Ventilator 40 97.4 10/10/17 08:00 40 10/10/17 08:00 62 10/10/17 07:00 61 23 125/50 100 Mechanical Ventilator 40 10/10/17 06:35 61 18 40 10/10/17 06:00 62 24 116/48 98 Mechanical Ventilator 40 10/10/17 06:00 68 116/48 10/10/17 05:01 72 20 40 10/10/17 05:00 74 24 120/45 98 Mechanical Ventilator 40 10/10/17 04:00 75 10/10/17 04:00 98.0 75 26 122/51 98 Mechanical Ventilator 40 98.0 10/10/17 04:00 40 10/10/17 03:23 75 23 40 10/10/17 03:00 75 31 126/54 98 Mechanical Ventilator 40 10/10/17 02:00 71 31 126/54 98 Mechanical Ventilator 40 10/10/17 01:00 73 22 40 10/10/17 01:00 74 27 123/50 98 Mechanical Ventilator 40 10/10/17 00:00 98.2 77 23 112/49 99 Mechanical Ventilator 40 98.2 10/10/17 00:00 40 10/10/17 00:00 76 10/09/17 23:00 70 21 40 10/09/17 23:00 70 23 110/46 99 Mechanical Ventilator 40 10/09/17 22:32 74 119/53 10/09/17 22:00 75 23 119/53 99 Mechanical Ventilator 40 10/09/17 21:01 74 23 40 10/09/17 21:00 74 28 115/44 99 Mechanical Ventilator 40 10/09/17 20:00 72 10/09/17 20:00 98.0 72 29 106/47 99 Mechanical Ventilator 40 98.0 10/09/17 20:00 40 10/09/17 19:26 77 25 40 10/09/17 19:00 75 25 105/44 99 Mechanical Ventilator 40 10/09/17 18:00 76 27 110/43 100 Mechanical Ventilator 40 10/09/17 17:07 70 23 40 10/09/17 17:00 77 27 114/60 100 Mechanical Ventilator 40 10/09/17 16:00 40 10/09/17 16:00 77 10/09/17 16:00 98.4 71 29 109/43 99 Mechanical Ventilator 40 98.4 10/09/17 15:09 74 22 40 10/09/17 15:00 69 22 105/40 99 Mechanical Ventilator 40 10/09/17 14:00 69 97/50 10/09/17 14:00 82 22 99/41 100 Mechanical Ventilator 40 10/09/17 13:01 69 23 40 10/09/17 13:00 80 21 102/45 98 Mechanical Ventilator 40 10/09/17 12:00 98.4 73 22 98/42 97 Mechanical Ventilator 40 98.4 10/09/17 12:00 40 10/09/17 12:00 72 Intake and Output 10/09/17 10/10/17 18:59 06:59 Intake Total 760 ml 300 ml Output Total 615 ml 1101 ml Balance 145 ml -801 ml IV Total 220 ml Tube Feeding 540 ml 300 ml Output Urine Total 615 ml 1100 ml Stool Total 1 ml # Bowel Movements 1 6 Laboratory Tests 10/10/17 00:50: Prothrombin Time 12.0H, Prothromb Time International Ratio 1.1 10/10/17 04:15: White Blood Count 7.6#, Red Blood Count 2.80L, Hemoglobin 8.8L, Hematocrit 28.0L , Mean Corpuscular Volume 100H, Mean Corpuscular Hemoglobin 31.6H, Mean Corpuscular Hemoglobin Concent 31.5L, Red Cell Distribution Width 17.5H, Platelet Count 152, Mean Platelet Volume 9.3, Neutrophils (%) (Auto) 84.2H, Lymphocytes (%) (Auto) 6.4L, Monocytes (%) (Auto) 8.4, Eosinophils (%) (Auto) 0.1, Basophils (%) (Auto) 0.9, Activated Partial Thromboplast Time 26, Sodium Level 143, Potassium Level 2.9L, Chloride Level 107, Carbon Dioxide Level 27, Anion Gap 9, Blood Urea Nitrogen 29H, Creatinine 0.8, Estimat Glomerular Filtration Rate , Glucose Level 145H, Calcium Level 7.8L, Phosphorus Level 2.8, Magnesium Level 2.3, Total Bilirubin 8.0H, Direct Bilirubin 6.6H, Aspartate Amino Transf (AST/SGOT) 82H, Alanine Aminotransferase (ALT/SGPT) 57, Alkaline Phosphatase 1120H, Total Protein 6.1L, Albumin 1.9L, Globulin 4.2, Albumin/ Globulin Ratio 0.5L Height (Feet): 5 Height (Inches): 5.00 Weight (Pounds): 108 General Appearance: no apparent distress Respiratory/Chest: decreased breath sounds Abdomen: distended Objective no change YAEL HANSEN Oct 10, 2017 11:49
[2017-10-10] MEDS: Ertapenem 1 GM in NS 110 ML IVPB SCH (12:16)
--- NOTE | 2017-10-10 12:36 | Infectious Diseases Prog Note ---
Assessment/Plan Assessment/Plan The patient is a 76-year-old female w Fever, low grade, intermittent; resolved- ? persistent cholangitis as increased LFTs again -u.a no pyuria, ucx 20-30k C. albicans (colonizer) -CXR 10/04 : Interstitial and airspace opacities are again present -Bcx 10/03 NTD Leukocytosis , resolved- likely cholangitis -Cdiff neg -09/22 sp cx C.a lbicans, Bcx Neg -u/a wbc 10-15, nit neg, leuk +2; ucx >100k C. albicans -Fungal sp cx p Community-acquired vs healthcare-associated pneumonia, s/p RX (the patient has been recently hospitalized in [facility]). -now ARDS- r/o fungal PNA; worsening infiltrates- ?etiology - has received prolonged abx tx and empiric fungal tx; fungal serologies and cx pending to date -CT chest 10/07: Extensive diffuse bilateral pulmonary parenchymal disease, slightly worse than on prior exam of 09/23/2017. Main differential considerations include pneumonia, ARDS, pulmonary edema, among multiple other possibilities. Bilateral moderate to large pleural effusions, slightly increased in size from 09/23/2017. Nasogastric and endotracheal tubes in good position. Evidence of generalized anasarca, with diffuse subcutaneous soft tissue edema. - cxray 09/26 : no changes -CT chest 09/23: Diffuse extensive pulmonary parenchymal disease, with dense consolidation interspersed with groundglass opacities. Appearance nonspecific, possibilities include pulmonary edema, pneumonia, ARDS, hemorrhage. Bilateral pleural effusions, left greater than right. Diffuse edema of the subcutaneous fat, Multiple small thyroid nodules. All apparently under 1 cm, no further follow-up necessary. Degenerative changes of the shoulders 09/19 xray : Unchanged diffuse interstitial and airspace edema, -CrAg serum, U legionell ag neg; Asp ag, Cocci, fungitell p Probable influenza despite of negative influenza screening test, s/p Rx Abnormal liver function tests, ALP>>> AST -2ry to sludged CBD ,cholangitis, obstruction on CBD; AST/ALT normal now, ALP improved but now worsening again -s/p ERCP 10/08: Intraoperative images demonstrate faint opacification of the common bile duct, and placement of a new plastic endobiliary stent. What may be a previous malpositioned biliary stent is seen to the left of the endoscope -CT abd/p 10/07: Anasarca, also previously described, currently similar except for increased size of bilateral pleural fluid described on chest CT. Gallbladder wall edema, probably a manifestation of anasarca, although acute cholecystitis not excludable. Note that similar findings were seen on the previous study, which was followed by a negative HIDA scan. Endometrial biliary stent now present. Mild central intrahepatic biliary ductal dilatation despite this. Low-attenuation areas in the spleen, as described. Equivocal clinically evident previously in retrospect that much more conspicuous currently, probably due to less image artifact on the current study. These are nonspecific, could represent cysts, infarcts, areas of inflammation, much less likely neoplasm. Satisfactory position of nasogastric tube. 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 Nonspecific inflammatory changes surrounding the hips. Right hip region lipoma -s/p ERCP with stent placement 10/01 -EUS 09/30: 1. Dilated common bile duct with lots of sludge in the distal common bile duct, most probably explanation for abnormal liver function tests. 2. Large ascites -Abd US 09/29: Cholelithiasis, better demonstrated than on prior exam. Thickened gallbladder wall could indicate acute cholecystitis. However, gallbladder wall thickening also evident on prior study of 09/19/2017, after which a hepatobiliary scan was negative, so suspect this is more likely due to hemodynamic derangements given presence of ascites and pleural fluid. Extrahepatic biliary ductal dilatation, equivocally slightly increased from 2017. Downstream obstruction not excludable. Coarsened hepatic echotexture, consistent with hepatocellular disease, nonspecific as regards etiology. Equivocal hepatic surface micronodularity, could indicate early cirrhotic changes. -HIDA scan: Negative for evidence of cystic duct obstruction/acute cholecystitis. Common bile duct is demonstrated be patent, but emptying into the duodenum is delayed, not seen until 2 hours. Significance of this is uncertain. MRCP or CT scanning may be useful to clarify -CT abd/p 09/23: Evidence of anasarca, with diffuse edema subcutaneous and mesenteric fat, bilateral pleural effusions, possible pulmonary edema, trace ascites. Densities within the gallbladder, probably reflecting tiny gallstones, although these are not identifiable on recent ultrasound. Gallbladder wall edema is probably a manifestation of anasarca, as recent hepatobiliary scan was negative for acute cholecystitis. Old ununited fracture deformities of the right pelvis. Bilateral chronic appearing hip dislocations Ultrasound of the abdomen : Gallbladder sludge. No definite stones. 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 Depression. Anemia. Rheumatoid arthritis. History of gastritis. PLAN: -Continue Ertapenem #7/ given prior low grade fevers and rise in LFts, concern for persistent cholangitis. 10/09 SP MIcafungin #10 10/02 SP Amikacin #10 09/30 SP Flagyl #8 09/25 sp Fluconazole #3 (held due to rise ALP) 09/23 SP Meropenem #5, PO Vanco #2 09/21 SP tamiflu #10 -f/u Repeat cultures -f/u Asp ag, fungitell, Cocci ab, fungal sp cx (called lab on 10/09 for f/u on these tests; was told they are still pending and they will call [facility] for an update). Monitor CBC.; Trend WBC Monitor BMP.; Trend LFTs Monitor chest x-ray -GI, heme onc f/u Subjective Allergies: Coded Allergies: No Known Allergies (Verified , 11/18/08) Subjective afebrile no leukocytosis elevated RF and CCP ALP increasing Objective Vital Signs Last 24 Hour Vital Signs Date Time Temp Pulse Resp B/P (MAP) Pulse Ox O2 Delivery O2 Flow Rate FiO2 10/10/17 12:00 40 10/10/17 11:20 73 19 40 10/10/17 10:00 68 32 128/58 97 Mechanical Ventilator 40 10/10/17 09:03 63 18 40 10/10/17 09:00 65 31 109/72 97 Mechanical Ventilator 40 10/10/17 08:00 97.4 61 28 130/51 100 Mechanical Ventilator 40 97.4 10/10/17 08:00 40 10/10/17 08:00 62 10/10/17 07:00 61 23 125/50 100 Mechanical Ventilator 40 3/30/18 06:35 61 18 40 10/10/17 06:00 62 24 116/48 98 Mechanical Ventilator 40 10/10/17 06:00 68 116/48 10/10/17 05:01 72 20 40 10/10/17 05:00 74 24 120/45 98 Mechanical Ventilator 40 10/10/17 04:00 75 10/10/17 04:00 98.0 75 26 122/51 98 Mechanical Ventilator 40 98.0 10/10/17 04:00 40 10/10/17 03:23 75 23 40 10/10/17 03:00 75 31 126/54 98 Mechanical Ventilator 40 10/10/17 02:00 71 31 126/54 98 Mechanical Ventilator 40 10/10/17 01:00 73 22 40 10/10/17 01:00 74 27 123/50 98 Mechanical Ventilator 40 10/10/17 00:00 98.2 77 23 112/49 99 Mechanical Ventilator 40 98.2 10/10/17 00:00 40 10/10/17 00:00 76 10/09/17 23:00 70 21 40 10/09/17 23:00 70 23 110/46 99 Mechanical Ventilator 40 10/09/17 22:32 74 119/53 10/09/17 22:00 75 23 119/53 99 Mechanical Ventilator 40 10/09/17 21:01 74 23 40 10/09/17 21:00 74 28 115/44 99 Mechanical Ventilator 40 10/09/17 20:00 72 10/09/17 20:00 98.0 72 29 106/47 99 Mechanical Ventilator 40 98.0 10/09/17 20:00 40 10/09/17 19:26 77 25 40 10/09/17 19:00 75 25 105/44 99 Mechanical Ventilator 40 10/09/17 18:00 76 27 110/43 100 Mechanical Ventilator 40 10/09/17 17:07 70 23 40 10/09/17 17:00 77 27 114/60 100 Mechanical Ventilator 40 10/09/17 16:00 40 10/09/17 16:00 77 10/09/17 16:00 98.4 71 29 109/43 99 Mechanical Ventilator 40 98.4 10/09/17 15:09 74 22 40 10/09/17 15:00 69 22 105/40 99 Mechanical Ventilator 40 10/09/17 14:00 69 97/50 10/09/17 14:00 82 22 99/41 100 Mechanical Ventilator 40 10/09/17 13:01 69 23 40 10/09/17 13:00 80 21 102/45 98 Mechanical Ventilator 40 Height (Feet): 5 Height (Inches): 5.00 Weight (Pounds): 108 Objective General Appearance: lethargic, thin EENT: normal ENT inspection Neck: non-tender, normal alignment, supple Cardiovascular: normal peripheral pulses, normal rate, regular rhythm, no gallop/murmur, no JVD Respiratory/Chest: Mechanical vent; respiratory distress, crackles/rales, rhonchi - bilaterally, expiratory wheezing Abdomen: normal bowel sounds, non tender, soft, no organomegaly, no mass Skin: normal pigmentation, warm/dry Microbiology Date/Time Source Procedure Growth Status 10/09/17 09:00 Sputum Expectorated Gram Stain - Final Resulted 10/09/17 09:00 Sputum Expectorated Sputum Culture - Preliminary NO GROWTH AFTER 24 HOURS Resulted Laboratory Tests Test 10/10/17 00:50 10/10/17 04:15 Prothrombin Time 12.0 SEC (9.30-11.50) H Prothromb Time International Ratio 1.1 (0.9-1.1) White Blood Count 7.6 K/UL (4.8-10.8) # Red Blood Count 2.80 M/UL (4.20-5.40) L Hemoglobin 8.8 G/DL (12.0-16.0) L Hematocrit 28.0 % (37.0-47.0) L Mean Corpuscular Volume 100 FL (80-99) H Mean Corpuscular Hemoglobin 31.6 PG (27.0-31.0) H Mean Corpuscular Hemoglobin Concent 31.5 G/DL (32.0-36.0) L Red Cell Distribution Width 17.5 % (11.6-14.8) H Platelet Count 152 K/UL (150-450) Mean Platelet Volume 9.3 FL (6.5-10.1) Neutrophils (%) (Auto) 84.2 % (45.0-75.0) H Lymphocytes (%) (Auto) 6.4 % (20.0-45.0) L Monocytes (%) (Auto) 8.4 % (1.0-10.0) Eosinophils (%) (Auto) 0.1 % (0.0-3.0) Basophils (%) (Auto) 0.9 % (0.0-2.0) Activated Partial Thromboplast Time 26 SEC (23-33) Sodium Level 143 MMOL/L (136-145) Potassium Level 2.9 MMOL/L (3.5-5.1) L Chloride Level 107 MMOL/L (98-107) Carbon Dioxide Level 27 MMOL/L (21-32) Anion Gap 9 mmol/L (5-15) Blood Urea Nitrogen 29 mg/dL (7-18) H Creatinine 0.8 MG/DL (0.55-1.30) Estimat Glomerular Filtration Rate mL/min (>60) Glucose Level 145 MG/DL (74-106) H Calcium Level 7.8 MG/DL (8.5-10.1) L Phosphorus Level 2.8 MG/DL (2.5-4.9) Magnesium Level 2.3 MG/DL (1.8-2.4) Total Bilirubin 8.0 MG/DL (0.2-1.0) H Direct Bilirubin 6.6 MG/DL (0.0-0.3) H Aspartate Amino Transf (AST/SGOT) 82 U/L (15-37) H Alanine Aminotransferase (ALT/SGPT) 57 U/L (12-78) Alkaline Phosphatase 1120 U/L (46-116) H Total Protein 6.1 G/DL (6.4-8.2) L Albumin 1.9 G/DL (3.4-5.0) L Globulin 4.2 g/dL Albumin/Globulin Ratio 0.5 (1.0-2.7) L Current Medications Medications (Trade) Dose Ordered Sig/Hermes Route PRN Reason Start Time Stop Time Status Last Admin Dose Admin Acetaminophen (Tylenol) 650 mg EVERY 6 HOURS PRN NG Fever/Headache/Mild Pain 09/13/17 20:45 10/13/17 20:44 10/03/17 12:25 Clonidine HCl (Catapres Tab) 0.1 mg Q4H PRN ORAL SBP>160 UNRELIEVED BY HYDRALAZ 09/16/17 16:45 10/15/17 16:59 Dextrose (Dextrose 50%) STAT PRN IV Hypoglycemia 09/13/17 15:00 10/13/17 14:59 Diltiazem HCl (Cardizem) 30 mg EVERY 8 HOURS NG 10/04/17 14:00 11/03/17 13:59 10/09/17 22:32 Ertapenem 1 gm/ Sodium Chloride 110 ml @ 220 mls/hr Q24H IVPB 10/04/17 12:00 10/11/17 11:59 10/10/17 12:16 Furosemide (Lasix) 40 mg EVERY 12 HOURS IV 10/08/17 09:00 11/07/17 08:59 10/10/17 09:25 Insulin Aspart (NovoLOG) EVERY 6 HOURS SUBQ 09/17/17 12:00 10/17/17 11:59 10/10/17 12:21 Ketotifen Fumarate (Zatidor) 1 drop DAILY BOTH EYES 09/26/17 09:00 10/25/17 08:59 10/10/17 09:26 Micafungin Sodium 100 mg/Dextrose 110 ml @ 110 mls/hr Q24H IVPB 10/07/17 13:00 10/10/17 23:59 10/09/17 13:18 Pantoprazole (Protonix) 40 mg DAILY IVP 10/02/17 09:00 11/01/17 08:59 10/10/17 09:25 Polyethylene Glycol (Miralax) 17 gm BEDTIME ORAL 09/14/17 21:00 10/14/17 20:59 10/06/17 21:22 Potassium Chloride (K-Dur) 20 meq ONCE ONCE ORAL 10/10/17 13:00 10/10/17 13:01 Madelyn Frey M.D. Oct 10, 2017 12:36
--- NOTE | 2017-10-10 15:15 | General Progress Note ---
Assessment/Plan Problem List: (1) Arthritis, rheumatoid ICD Codes: M06.9 - Rheumatoid arthritis, unspecified SNOMED: 12009372 (2) Aspiration pneumonia ICD Codes: J69.0 - Pneumonitis due to inhalation of food and vomit SNOMED: 288417638 (3) Diabetes mellitus ICD Codes: E11.9 - Type 2 diabetes mellitus without complications SNOMED: 63152459 (4) ARDS (adult respiratory distress syndrome) ICD Codes: J80 - Acute respiratory distress syndrome SNOMED: 64481648 (5) Transaminitis ICD Codes: R74.0 - Nonspecific elevation of levels of transaminase and lactic acid dehydrogenase [LDH] SNOMED: 895121029, 216756528 (6) Dyspnea ICD Codes: R06.00 - Dyspnea, unspecified SNOMED: 567530802 (7) Parkinsons disease ICD Codes: G20 - Parkinson's disease SNOMED: 59321637 (8) Sepsis ICD Codes: A41.9 - Sepsis, unspecified organism SNOMED: 61957109 (9) GERD (gastroesophageal reflux disease) ICD Codes: K21.9 - Gastro-esophageal reflux disease without esophagitis SNOMED: 267865813 (10) Aplastic anemia ICD Codes: D61.9 - Aplastic anemia, unspecified SNOMED: 817429248 (11) Pneumonia ICD Codes: J18.9 - Pneumonia, unspecified organism SNOMED: 765141614 (12) HTN (hypertension) ICD Codes: I10 - Essential (primary) hypertension SNOMED: 57429688 Assessment/Plan Encephalopathy, agitation, psychotic disorder. -cont current meds -ativan prn Subjective Date patient seen: Oct 10, 2017 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: Reports: anxiety, depressed Allergies: Coded Allergies: No Known Allergies (Verified , 11/18/08) Subjective the pt is calm nad anxious at times Objective Last 24 Hour Vital Signs Date Time Temp Pulse Resp B/P (MAP) Pulse Ox O2 Delivery O2 Flow Rate FiO2 10/10/17 15:02 81 21 40 10/10/17 14:00 90 27 130/62 96 Mechanical Ventilator 40 10/10/17 13:39 73 137/62 10/10/17 13:25 80 19 40 10/10/17 13:00 74 25 137/62 95 Mechanical Ventilator 40 10/10/17 12:00 96 10/10/17 12:00 40 10/10/17 12:00 97.9 79 24 130/51 97 Mechanical Ventilator 40 97.9 10/10/17 11:20 73 19 40 10/10/17 11:00 84 25 141/67 97 Mechanical Ventilator 40 10/10/17 10:00 68 32 128/58 97 Mechanical Ventilator 40 10/10/17 09:03 63 18 40 10/10/17 09:00 65 31 109/72 97 Mechanical Ventilator 40 10/10/17 08:00 97.4 61 28 130/51 100 Mechanical Ventilator 40 97.4 10/10/17 08:00 40 10/10/17 08:00 62 10/10/17 07:00 61 23 125/50 100 Mechanical Ventilator 40 10/10/17 06:35 61 18 40 10/10/17 06:00 62 24 116/48 98 Mechanical Ventilator 40 10/10/17 06:00 68 116/48 10/10/17 05:01 72 20 40 10/10/17 05:00 74 24 120/45 98 Mechanical Ventilator 40 10/10/17 04:00 75 10/10/17 04:00 98.0 75 26 122/51 98 Mechanical Ventilator 40 98.0 10/10/17 04:00 40 10/10/17 03:23 75 23 40 10/10/17 03:00 75 31 126/54 98 Mechanical Ventilator 40 10/10/17 02:00 71 31 126/54 98 Mechanical Ventilator 40 10/10/17 01:00 73 22 40 10/10/17 01:00 74 27 123/50 98 Mechanical Ventilator 40 10/10/17 00:00 98.2 77 23 112/49 99 Mechanical Ventilator 40 98.2 10/10/17 00:00 40 10/10/17 00:00 76 10/09/17 23:00 70 21 40 10/09/17 23:00 70 23 110/46 99 Mechanical Ventilator 40 10/09/17 22:32 74 119/53 10/09/17 22:00 75 23 119/53 99 Mechanical Ventilator 40 10/09/17 21:01 74 23 40 10/09/17 21:00 74 28 115/44 99 Mechanical Ventilator 40 10/09/17 20:00 72 10/09/17 20:00 98.0 72 29 106/47 99 Mechanical Ventilator 40 98.0 10/09/17 20:00 40 10/09/17 19:26 77 25 40 10/09/17 19:00 75 25 105/44 99 Mechanical Ventilator 40 10/09/17 18:00 76 27 110/43 100 Mechanical Ventilator 40 10/09/17 17:07 70 23 40 10/09/17 17:00 77 27 114/60 100 Mechanical Ventilator 40 10/09/17 16:00 40 10/09/17 16:00 77 10/09/17 16:00 98.4 71 29 109/43 99 Mechanical Ventilator 40 98.4 Intake and Output 10/09/17 10/10/17 19:00 07:00 Intake Total 780 ml 250 ml Output Total 640 ml 1161 ml Balance 140 ml -911 ml IV Total 220 ml Tube Feeding 560 ml 250 ml Output Urine Total 640 ml 1160 ml Stool Total 1 ml # Bowel Movements 1 6 Laboratory Tests 10/10/17 00:50: Prothrombin Time 12.0H, Prothromb Time International Ratio 1.1 10/10/17 04:15: White Blood Count 7.6#, Red Blood Count 2.80L, Hemoglobin 8.8L, Hematocrit 28.0L , Mean Corpuscular Volume 100H, Mean Corpuscular Hemoglobin 31.6H, Mean Corpuscular Hemoglobin Concent 31.5L, Red Cell Distribution Width 17.5H, Platelet Count 152, Mean Platelet Volume 9.3, Neutrophils (%) (Auto) 84.2H, Lymphocytes (%) (Auto) 6.4L, Monocytes (%) (Auto) 8.4, Eosinophils (%) (Auto) 0.1, Basophils (%) (Auto) 0.9, Activated Partial Thromboplast Time 26, Sodium Level 143, Potassium Level 2.9L, Chloride Level 107, Carbon Dioxide Level 27, Anion Gap 9, Blood Urea Nitrogen 29H, Creatinine 0.8, Estimat Glomerular Filtration Rate , Glucose Level 145H, Calcium Level 7.8L, Phosphorus Level 2.8, Magnesium Level 2.3, Total Bilirubin 8.0H, Direct Bilirubin 6.6H, Aspartate Amino Transf (AST/SGOT) 82H, Alanine Aminotransferase (ALT/SGPT) 57, Alkaline Phosphatase 1120H, Total Protein 6.1L, Albumin 1.9L, Globulin 4.2, Albumin/ Globulin Ratio 0.5L Height (Feet): 5 Height (Inches): 5.00 Weight (Pounds): 108 General Appearance: no apparent distress, alert, confused Dary Nixon M.D. Oct 10, 2017 15:15
--- NOTE | 2017-10-10 15:52 | Cardiac Electrophysiology PN ---
Assessment/Plan Assessment/Plan 1. Vent dependent Respiratory failure, due to underlying ARDS , pneumonia. Already ruled out for myocardial infarction. Now on 45% Fio2 with PEEP of 5. Tracheostomy by Dr Echevarria and and Bronchoscopy by Dr Parekh Friday 10 am 2. Left bundle-branch block. No evidence of advanced heart block. 3. HTN and diastolic dysfunction. On Cardizem 30 NG q8 hr. Echo EF 55% Decrease Cardizem to 30 BID as BP was borderline and had transient lane 4. Hypernatremia and Azotemia. F/U per Dr. Mayer 5. Pneumonia and sepsis on IV antibiotics by Dr. Hunter. 6. Psychiatric disorder. 7. Anasarca. 3rd spacing. 8. Anemia with Hb 6.6 s/p PRBC. CT chest abdomen and pelvis without contrast no acute finding S/P EGD by Dr Walton 9. Severe thrombocytopenia. S/P platelet transfusion 10. Abnormal LFT, Biliary obstruction, possible cholangitis. S/P ERCP. CBD sludge. S/P repeat ERCP and stent by Dr Walton 11. High INR 3.5 likely due to hepatic failure. S/P FFP and Vit K. MICHELLE RN and Dr Barahona Subjective Subjective Intubated on Vent in ICU. No SVT or VT Had repeat ERCP and stent by Dr Walton Bronchoscopy and Tracheostomy postponed to Friday despite INR 1.1 per family consent issue Objective Last 24 Hour Vital Signs Date Time Temp Pulse Resp B/P (MAP) Pulse Ox O2 Delivery O2 Flow Rate FiO2 10/10/17 15:02 81 21 40 10/10/17 15:00 76 22 119/53 96 Mechanical Ventilator 40 10/10/17 14:00 90 27 130/62 96 Mechanical Ventilator 40 10/10/17 13:39 73 137/62 10/10/17 13:25 80 19 40 10/10/17 13:00 74 25 137/62 95 Mechanical Ventilator 40 10/10/17 12:00 96 10/10/17 12:00 40 10/10/17 12:00 97.9 79 24 130/51 97 Mechanical Ventilator 40 97.9 10/10/17 11:20 73 19 40 10/10/17 11:00 84 25 141/67 97 Mechanical Ventilator 40 10/10/17 10:00 68 32 128/58 97 Mechanical Ventilator 40 10/10/17 09:03 63 18 40 10/10/17 09:00 65 31 109/72 97 Mechanical Ventilator 40 10/10/17 08:00 97.4 61 28 130/51 100 Mechanical Ventilator 40 97.4 10/10/17 08:00 40 10/10/17 08:00 62 10/10/17 07:00 61 23 125/50 100 Mechanical Ventilator 40 10/10/17 06:35 61 18 40 10/10/17 06:00 62 24 116/48 98 Mechanical Ventilator 40 10/10/17 06:00 68 116/48 10/10/17 05:01 72 20 40 10/10/17 05:00 74 24 120/45 98 Mechanical Ventilator 40 10/10/17 04:00 75 10/10/17 04:00 98.0 75 26 122/51 98 Mechanical Ventilator 40 98.0 10/10/17 04:00 40 10/10/17 03:23 75 23 40 10/10/17 03:00 75 31 126/54 98 Mechanical Ventilator 40 10/10/17 02:00 71 31 126/54 98 Mechanical Ventilator 40 10/10/17 01:00 73 22 40 10/10/17 01:00 74 27 123/50 98 Mechanical Ventilator 40 10/10/17 00:00 98.2 77 23 112/49 99 Mechanical Ventilator 40 98.2 10/10/17 00:00 40 10/10/17 00:00 76 10/09/17 23:00 70 21 40 10/09/17 23:00 70 23 110/46 99 Mechanical Ventilator 40 10/09/17 22:32 74 119/53 10/09/17 22:00 75 23 119/53 99 Mechanical Ventilator 40 10/09/17 21:01 74 23 40 10/09/17 21:00 74 28 115/44 99 Mechanical Ventilator 40 10/09/17 20:00 72 10/09/17 20:00 98.0 72 29 106/47 99 Mechanical Ventilator 40 98.0 10/09/17 20:00 40 10/09/17 19:26 77 25 40 10/09/17 19:00 75 25 105/44 99 Mechanical Ventilator 40 10/09/17 18:00 76 27 110/43 100 Mechanical Ventilator 40 10/09/17 17:07 70 23 40 10/09/17 17:00 77 27 114/60 100 Mechanical Ventilator 40 10/09/17 16:00 40 10/09/17 16:00 77 10/09/17 16:00 98.4 71 29 109/43 99 Mechanical Ventilator 40 98.4 Intake and Output 10/09/17 10/10/17 18:59 06:59 Intake Total 760 ml 300 ml Output Total 615 ml 1101 ml Balance 145 ml -801 ml IV Total 220 ml Tube Feeding 540 ml 300 ml Output Urine Total 615 ml 1100 ml Stool Total 1 ml # Bowel Movements 1 6 Laboratory Tests Test 10/10/17 00:50 10/10/17 04:15 Prothrombin Time 12.0 SEC (9.30-11.50) H Prothromb Time International Ratio 1.1 (0.9-1.1) White Blood Count 7.6 K/UL (4.8-10.8) # Red Blood Count 2.80 M/UL (4.20-5.40) L Hemoglobin 8.8 G/DL (12.0-16.0) L Hematocrit 28.0 % (37.0-47.0) L Mean Corpuscular Volume 100 FL (80-99) H Mean Corpuscular Hemoglobin 31.6 PG (27.0-31.0) H Mean Corpuscular Hemoglobin Concent 31.5 G/DL (32.0-36.0) L Red Cell Distribution Width 17.5 % (11.6-14.8) H Platelet Count 152 K/UL (150-450) Mean Platelet Volume 9.3 FL (6.5-10.1) Neutrophils (%) (Auto) 84.2 % (45.0-75.0) H Lymphocytes (%) (Auto) 6.4 % (20.0-45.0) L Monocytes (%) (Auto) 8.4 % (1.0-10.0) Eosinophils (%) (Auto) 0.1 % (0.0-3.0) Basophils (%) (Auto) 0.9 % (0.0-2.0) Activated Partial Thromboplast Time 26 SEC (23-33) Sodium Level 143 MMOL/L (136-145) Potassium Level 2.9 MMOL/L (3.5-5.1) L Chloride Level 107 MMOL/L (98-107) Carbon Dioxide Level 27 MMOL/L (21-32) Anion Gap 9 mmol/L (5-15) Blood Urea Nitrogen 29 mg/dL (7-18) H Creatinine 0.8 MG/DL (0.55-1.30) Estimat Glomerular Filtration Rate mL/min (>60) Glucose Level 145 MG/DL (74-106) H Calcium Level 7.8 MG/DL (8.5-10.1) L Phosphorus Level 2.8 MG/DL (2.5-4.9) Magnesium Level 2.3 MG/DL (1.8-2.4) Total Bilirubin 8.0 MG/DL (0.2-1.0) H Direct Bilirubin 6.6 MG/DL (0.0-0.3) H Aspartate Amino Transf (AST/SGOT) 82 U/L (15-37) H Alanine Aminotransferase (ALT/SGPT) 57 U/L (12-78) Alkaline Phosphatase 1120 U/L (46-116) H Total Protein 6.1 G/DL (6.4-8.2) L Albumin 1.9 G/DL (3.4-5.0) L Globulin 4.2 g/dL Albumin/Globulin Ratio 0.5 (1.0-2.7) L Microbiology Date/Time Source Procedure Growth Status 10/09/17 09:00 Sputum Expectorated Gram Stain - Final Resulted 10/09/17 09:00 Sputum Expectorated Sputum Culture - Preliminary NO GROWTH AFTER 24 HOURS Resulted Objective HEAD AND NECK: Orally intubated. Jaundiced LUNGS: Coarse rhonchi bilaterally CARDIOVASCULAR: Tachy S1 and S2.No murmur ABDOMEN: Soft. EXTREMITIES: 1+ pitting edema. Charlie Darnell MD Oct 10, 2017 15:52
--- NOTE | 2017-10-10 16:57 | Internal Med Progress Note ---
Subjective Date of Service: Oct 10, 2017 Physician Name Noah Bowens Attending Physician Jesus Barahona MD Current Medications Medications (Trade) Dose Ordered Sig/Hermes Route PRN Reason Start Time Stop Time Status Last Admin Dose Admin Acetaminophen (Tylenol) 650 mg EVERY 6 HOURS PRN NG Fever/Headache/Mild Pain 09/13/17 20:45 10/13/17 20:44 10/03/17 12:25 Clonidine HCl (Catapres Tab) 0.1 mg Q4H PRN ORAL SBP>160 UNRELIEVED BY HYDRALAZ 09/16/17 16:45 10/15/17 16:59 Dextrose (Dextrose 50%) STAT PRN IV Hypoglycemia 09/13/17 15:00 10/13/17 14:59 Diltiazem HCl (Cardizem) 30 mg BID NG 10/10/17 18:00 11/03/17 13:59 Ertapenem 1 gm/ Sodium Chloride 110 ml @ 220 mls/hr Q24H IVPB 10/04/17 12:00 10/11/17 11:59 10/10/17 12:16 Furosemide (Lasix) 40 mg EVERY 12 HOURS IV 10/08/17 09:00 11/07/17 08:59 10/10/17 09:25 Insulin Aspart (NovoLOG) EVERY 6 HOURS SUBQ 09/17/17 12:00 10/17/17 11:59 10/10/17 12:21 Ketotifen Fumarate (Zatidor) 1 drop DAILY BOTH EYES 09/26/17 09:00 10/25/17 08:59 10/10/17 09:26 Pantoprazole (Protonix) 40 mg DAILY IVP 10/02/17 09:00 11/01/17 08:59 10/10/17 09:25 Polyethylene Glycol (Miralax) 17 gm BEDTIME ORAL 09/14/17 21:00 10/14/17 20:59 10/06/17 21:22 Allergies: Coded Allergies: No Known Allergies (Verified , 11/18/08) Subjective 76 YO F admitted with Shortness of breath, now respiratory failure. Intubated and sedated. Cover for Internal Med-Dr. Barahona. ICU . S/P ERCP 10/08/17. Tracheostomy postponed due to coagulopathy. Objective Last Vital Signs Date Time Temp Pulse Resp B/P (MAP) Pulse Ox O2 Delivery O2 Flow Rate FiO2 10/10/17 15:02 81 21 40 10/10/17 15:00 119/53 96 Mechanical Ventilator 10/10/17 12:00 97.9 97.9 10/04/17 04:00 Laboratory Tests Test 10/10/17 00:50 10/10/17 04:15 Prothrombin Time 12.0 SEC (9.30-11.50) H Prothromb Time International Ratio 1.1 (0.9-1.1) White Blood Count 7.6 K/UL (4.8-10.8) # Red Blood Count 2.80 M/UL (4.20-5.40) L Hemoglobin 8.8 G/DL (12.0-16.0) L Hematocrit 28.0 % (37.0-47.0) L Mean Corpuscular Volume 100 FL (80-99) H Mean Corpuscular Hemoglobin 31.6 PG (27.0-31.0) H Mean Corpuscular Hemoglobin Concent 31.5 G/DL (32.0-36.0) L Red Cell Distribution Width 17.5 % (11.6-14.8) H Platelet Count 152 K/UL (150-450) Mean Platelet Volume 9.3 FL (6.5-10.1) Neutrophils (%) (Auto) 84.2 % (45.0-75.0) H Lymphocytes (%) (Auto) 6.4 % (20.0-45.0) L Monocytes (%) (Auto) 8.4 % (1.0-10.0) Eosinophils (%) (Auto) 0.1 % (0.0-3.0) Basophils (%) (Auto) 0.9 % (0.0-2.0) Activated Partial Thromboplast Time 26 SEC (23-33) Sodium Level 143 MMOL/L (136-145) Potassium Level 2.9 MMOL/L (3.5-5.1) L Chloride Level 107 MMOL/L (98-107) Carbon Dioxide Level 27 MMOL/L (21-32) Anion Gap 9 mmol/L (5-15) Blood Urea Nitrogen 29 mg/dL (7-18) H Creatinine 0.8 MG/DL (0.55-1.30) Estimat Glomerular Filtration Rate mL/min (>60) Glucose Level 145 MG/DL (74-106) H Calcium Level 7.8 MG/DL (8.5-10.1) L Phosphorus Level 2.8 MG/DL (2.5-4.9) Magnesium Level 2.3 MG/DL (1.8-2.4) Total Bilirubin 8.0 MG/DL (0.2-1.0) H Direct Bilirubin 6.6 MG/DL (0.0-0.3) H Aspartate Amino Transf (AST/SGOT) 82 U/L (15-37) H Alanine Aminotransferase (ALT/SGPT) 57 U/L (12-78) Alkaline Phosphatase 1120 U/L (46-116) H Total Protein 6.1 G/DL (6.4-8.2) L Albumin 1.9 G/DL (3.4-5.0) L Globulin 4.2 g/dL Albumin/Globulin Ratio 0.5 (1.0-2.7) L Microbiology Date/Time Source Procedure Growth Status 10/09/17 09:00 Sputum Expectorated Gram Stain - Final Resulted 10/09/17 09:00 Sputum Expectorated Sputum Culture - Preliminary NO GROWTH AFTER 24 HOURS Resulted Intake and Output 10/09/17 10/10/17 19:00 07:00 Intake Total 780 ml 250 ml Output Total 640 ml 1161 ml Balance 140 ml -911 ml IV Total 220 ml Tube Feeding 560 ml 250 ml Output Urine Total 640 ml 1160 ml Stool Total 1 ml # Bowel Movements 1 6 Objective General Appearance: lethargic, thin EENT: normal ENT inspection Neck: non-tender, normal alignment, supple Cardiovascular: normal peripheral pulses, normal rate, regular rhythm, no gallop/murmur, no JVD Respiratory/Chest: Mechanical vent; respiratory distress, crackles/rales, rhonchi - bilaterally, expiratory wheezing Abdomen: normal bowel sounds, non tender, soft, no organomegaly, no mass Skin: normal pigmentation, warm/dry Assessment/Plan Problem List: (1) HTN (hypertension) Assessment & Plan: Currently hypotensive. (2) Arthritis, rheumatoid (3) Parkinsons disease (4) Aplastic anemia (5) GERD (gastroesophageal reflux disease) (6) Respiratory failure Assessment & Plan: Tracheostomy and broncholsopy scheduled this week postponed due to coagulopathy-see surgery note. Cont vent per pulmonary (7) Pneumonia (8) Dyspnea (9) Sepsis Assessment & Plan: Blood culture neg. Continue Amikacin, micafungin and flagyl per ID (10) ARDS (adult respiratory distress syndrome) Assessment & Plan: See pulmonary note (11) UTI (urinary tract infection) Assessment & Plan: E.Coli. Continue abx per ID (12) Anemia Assessment & Plan: S/P Transfusion 2 units PRBC (13) Diabetes mellitus, type II Assessment & Plan: Continue novolog sliding scale (14) Leukocytosis Assessment & Plan: Worsening. See ID note. Start amikacin and fluconazole (15) Thrombocytopenia (16) Gallbladder sludge Assessment & Plan: s/P ERCP 10/01 & 10/07/17. (17) Coagulopathy Assessment & Plan: S/P FFP and Vit K Status: not improved NOAH BOWENS Oct 10, 2017 16:57
--- NOTE | 2017-10-10 17:37 | General Progress Note ---
Assessment/Plan Assessment/Plan Assessment - Resp failure / ARDS / PNA - Abnormal LFT, Biliary obstruction - s/p biliary and pancreatic stent - Jaundice and coagulopathy - improved, although Alk phos higher today - Anemia with OB (+) stools - coagulopathy - Malnutrition - hypernatremia - AMS - improved Recommendations - replace lytes - transfuse PRN - Elevate HOB - Vent care - Monitor labs - abx - follow LFT after stent Subjective Allergies: Coded Allergies: No Known Allergies (Verified , 11/18/08) Subjective Above noted doing better today awake and follows commands Bili lower INR normalized (but did receive FFP) tolerating TF Objective Last 24 Hour Vital Signs Date Time Temp Pulse Resp B/P (MAP) Pulse Ox O2 Delivery O2 Flow Rate FiO2 10/10/17 17:03 79 21 40 10/10/17 15:02 81 21 40 10/10/17 15:00 76 22 119/53 96 Mechanical Ventilator 40 10/10/17 14:00 90 27 130/62 96 Mechanical Ventilator 40 10/10/17 13:39 73 137/62 10/10/17 13:25 80 19 40 10/10/17 13:00 74 25 137/62 95 Mechanical Ventilator 40 10/10/17 12:00 96 10/10/17 12:00 40 10/10/17 12:00 97.9 79 24 130/51 97 Mechanical Ventilator 40 97.9 10/10/17 11:20 73 19 40 10/10/17 11:00 84 25 141/67 97 Mechanical Ventilator 40 10/10/17 10:00 68 32 128/58 97 Mechanical Ventilator 40 10/10/17 09:03 63 18 40 10/10/17 09:00 65 31 109/72 97 Mechanical Ventilator 40 10/10/17 08:00 97.4 61 28 130/51 100 Mechanical Ventilator 40 97.4 10/10/17 08:00 40 10/10/17 08:00 62 10/10/17 07:00 61 23 125/50 100 Mechanical Ventilator 40 10/10/17 06:35 61 18 40 10/10/17 06:00 62 24 116/48 98 Mechanical Ventilator 40 10/10/17 06:00 68 116/48 10/10/17 05:01 72 20 40 10/10/17 05:00 74 24 120/45 98 Mechanical Ventilator 40 10/10/17 04:00 75 3/30/18 04:00 98.0 75 26 122/51 98 Mechanical Ventilator 40 98.0 10/10/17 04:00 40 10/10/17 03:23 75 23 40 10/10/17 03:00 75 31 126/54 98 Mechanical Ventilator 40 10/10/17 02:00 71 31 126/54 98 Mechanical Ventilator 40 10/10/17 01:00 73 22 40 10/10/17 01:00 74 27 123/50 98 Mechanical Ventilator 40 10/10/17 00:00 98.2 77 23 112/49 99 Mechanical Ventilator 40 98.2 10/10/17 00:00 40 10/10/17 00:00 76 10/09/17 23:00 70 21 40 10/09/17 23:00 70 23 110/46 99 Mechanical Ventilator 40 10/09/17 22:32 74 119/53 10/09/17 22:00 75 23 119/53 99 Mechanical Ventilator 40 10/09/17 21:01 74 23 40 10/09/17 21:00 74 28 115/44 99 Mechanical Ventilator 40 10/09/17 20:00 72 10/09/17 20:00 98.0 72 29 106/47 99 Mechanical Ventilator 40 98.0 10/09/17 20:00 40 10/09/17 19:26 77 25 40 10/09/17 19:00 75 25 105/44 99 Mechanical Ventilator 40 10/09/17 18:00 76 27 110/43 100 Mechanical Ventilator 40 Intake and Output 10/09/17 10/10/17 19:00 07:00 Intake Total 780 ml 250 ml Output Total 640 ml 1161 ml Balance 140 ml -911 ml IV Total 220 ml Tube Feeding 560 ml 250 ml Output Urine Total 640 ml 1160 ml Stool Total 1 ml # Bowel Movements 1 6 Laboratory Tests 10/10/17 00:50: Prothrombin Time 12.0H, Prothromb Time International Ratio 1.1 10/10/17 04:15: White Blood Count 7.6#, Red Blood Count 2.80L, Hemoglobin 8.8L, Hematocrit 28.0L , Mean Corpuscular Volume 100H, Mean Corpuscular Hemoglobin 31.6H, Mean Corpuscular Hemoglobin Concent 31.5L, Red Cell Distribution Width 17.5H, Platelet Count 152, Mean Platelet Volume 9.3, Neutrophils (%) (Auto) 84.2H, Lymphocytes (%) (Auto) 6.4L, Monocytes (%) (Auto) 8.4, Eosinophils (%) (Auto) 0.1, Basophils (%) (Auto) 0.9, Activated Partial Thromboplast Time 26, Sodium Level 143, Potassium Level 2.9L, Chloride Level 107, Carbon Dioxide Level 27, Anion Gap 9, Blood Urea Nitrogen 29H, Creatinine 0.8, Estimat Glomerular Filtration Rate , Glucose Level 145H, Calcium Level 7.8L, Phosphorus Level 2.8, Magnesium Level 2.3, Total Bilirubin 8.0H, Direct Bilirubin 6.6H, Aspartate Amino Transf (AST/SGOT) 82H, Alanine Aminotransferase (ALT/SGPT) 57, Alkaline Phosphatase 1120H, Total Protein 6.1L, Albumin 1.9L, Globulin 4.2, Albumin/ Globulin Ratio 0.5L Height (Feet): 5 Height (Inches): 5.00 Weight (Pounds): 108 Objective WDWN NCAT , (+) ETT supple CTA RRR abd soft (+) edema opens eyes ARNULFO DURON Oct 10, 2017 17:37
--- NOTE | 2017-10-10 17:53 | Anethesia Preoperative Eval ---
Anesthesia Pre-op PMH/ROS General Date of Evaluation: Oct 10, 2017 Time of Evaluation: 17:52 Anesthesiologist: Cheryle ASA Score: ASA 4 Mallampati Score Class I : Soft palate, uvula, fauces, pillars visible Class II: Soft palate, uvula, fauces visible Class III: Soft palate, base of uvula visible Class IV: Only hard plate visible Mallampati Classification: Class III Surgeon: Magdalena Diagnosis: Failure to Wean Surgical Procedure: Trach and bronch Anesthesia History: none Family History: no anesthesia problems Allergies: Coded Allergies: No Known Allergies (Verified , 11/18/08) Medications: see eMAR Past Medical History Cardiovascular: Reports: HTN, other - EF 55%; Denies: CAD, GA, valve dz, arrhythmia Pulmonary: Reports: other - Acute Respiratory failure with pneumonia; Developed ARDS/ Currently inbutated; Trach and bronch postponed due to coagulopathy; pleural effusion; Denies: asthma, COPD, ARTEMIO Gastrointestinal/Genitourinary: Reports: GERD; Denies: CRI, ESRD, other 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: Denies: dementia, CVA, depression/anxiety, TIA, other Endocrine: Denies: DM, hypothyroidism, steroids, other HEENT: Denies: cataract (L), cataract (R), glaucoma, SANT[place] DOMINGO (L), S[place]O (R), other Hematology/Immune: Reports: anemia, bleeding disorder; Denies: DVT, other Musculoskeletal/Integumentary: Reports: DJD; Denies: OA, RA, DDD, edema, other PMH Narrative: (1) HTN (hypertension) Assessment & Plan: Currently hypotensive. (2) Arthritis, rheumatoid (3) Parkinsons disease (4) Aplastic anemia (5) GERD (gastroesophageal reflux disease) (6) Respiratory failure Assessment & Plan: Tracheostomy and broncholsopy scheduled this week postponed due to coagulopathy-see surgery note. Cont vent per pulmonary (7) Pneumonia (8) Dyspnea (9) Sepsis Assessment & Plan: Blood culture neg. Continue Amikacin, micafungin and flagyl per ID (10) ARDS (adult respiratory distress syndrome) Assessment & Plan: See pulmonary note (11) UTI (urinary tract infection) Assessment & Plan: E.Coli. Continue abx per ID (12) Anemia Assessment & Plan: S/P Transfusion 2 units PRBC (13) Diabetes mellitus, type II Assessment & Plan: Continue novolog sliding scale (14) Leukocytosis Assessment & Plan: Worsening. See ID note. Start amikacin and fluconazole (15) Thrombocytopenia (16) Gallbladder sludge Assessment & Plan: s/P ERCP 10/01 & 10/07/17. (17) Coagulopathy Assessment & Plan: S/P FFP and Vit K PSxH Narrative: EUS/ ERCP x2 Anesthesia Pre-op Phys. Exam Physician Exam Last Vital Signs Date Time Temp Pulse Resp B/P (MAP) Pulse Ox O2 Delivery O2 Flow Rate FiO2 10/10/17 17:03 79 21 40 10/10/17 15:00 119/53 96 Mechanical Ventilator 10/10/17 12:00 97.9 97.9 10/04/17 04:00 Constitutional: other - See H&P; stable Neurologic: other - Sedated Cardiovascular: RRR, no M/R/G, other - Stable Respiratory: other - Mechanical Ventilation: AC 40% 18 500 5 Gastrointestinal: S/NT/ND Airway Exam Mallampati Classification 7.0 ETT at 20cm insitu Mallampati Score: Class III - intubated MO: limited ROM: limited Dentures: no upper, no lower Anesthesia Pre-op A/P Labs Hematology Test 10/10/17 04:15 White Blood Count 7.6 K/UL (4.8-10.8) # Red Blood Count 2.80 M/UL (4.20-5.40) L Hemoglobin 8.8 G/DL (12.0-16.0) L Hematocrit 28.0 % (37.0-47.0) L Mean Corpuscular Volume 100 FL (80-99) H Mean Corpuscular Hemoglobin 31.6 PG (27.0-31.0) H Mean Corpuscular Hemoglobin Concent 31.5 G/DL (32.0-36.0) L Red Cell Distribution Width 17.5 % (11.6-14.8) H Platelet Count 152 K/UL (150-450) Mean Platelet Volume 9.3 FL (6.5-10.1) Neutrophils (%) (Auto) 84.2 % (45.0-75.0) H Lymphocytes (%) (Auto) 6.4 % (20.0-45.0) L Monocytes (%) (Auto) 8.4 % (1.0-10.0) Eosinophils (%) (Auto) 0.1 % (0.0-3.0) Basophils (%) (Auto) 0.9 % (0.0-2.0) Coagulation Test 10/10/17 00:50 10/10/17 04:15 Prothrombin Time 12.0 SEC (9.30-11.50) H Prothromb Time International Ratio 1.1 (0.9-1.1) Activated Partial Thromboplast Time 26 SEC (23-33) Chemistry Test 10/10/17 04:15 Sodium Level 143 MMOL/L (136-145) Potassium Level 2.9 MMOL/L (3.5-5.1) L Chloride Level 107 MMOL/L (98-107) Carbon Dioxide Level 27 MMOL/L (21-32) Anion Gap 9 mmol/L (5-15) Blood Urea Nitrogen 29 mg/dL (7-18) H Creatinine 0.8 MG/DL (0.55-1.30) Estimat Glomerular Filtration Rate mL/min (>60) Glucose Level 145 MG/DL (74-106) H Calcium Level 7.8 MG/DL (8.5-10.1) L Phosphorus Level 2.8 MG/DL (2.5-4.9) Magnesium Level 2.3 MG/DL (1.8-2.4) Total Bilirubin 8.0 MG/DL (0.2-1.0) H Direct Bilirubin 6.6 MG/DL (0.0-0.3) H Aspartate Amino Transf (AST/SGOT) 82 U/L (15-37) H Alanine Aminotransferase (ALT/SGPT) 57 U/L (12-78) Alkaline Phosphatase 1120 U/L (46-116) H Total Protein 6.1 G/DL (6.4-8.2) L Albumin 1.9 G/DL (3.4-5.0) L Globulin 4.2 g/dL Albumin/Globulin Ratio 0.5 (1.0-2.7) L Studies Pre-op Studies: EKG - SR Risk Assessment & Plan Assessment: Had repeat ERCP with Stent. initially transient increase in LFT's but now trending down and labs improving. Labs are improving including INR. VSS Plan: RACHNA Fall CRNA Oct 10, 2017 17:53
[2017-10-10] MEDS ORDERED: dilTIAZem HCl 30mg tab NG SCH (18:00)
[2017-10-10] MEDS: Miralax 17gm pkt ORAL SCH (20:59)
--- NOTE | 2017-10-10 21:38 | Wound Nurse Progress Note ---
Wound RN Progress Note Wound Consult #1 Chemical burn on perineal area #2 Left plantar 1st metatarsal head dry scab Reassessed this Pt no deterioration noted. Recommendation -Local wound care per protocol -Keep clean, dry and apply Lotrimin oint on perineal area as ordered -Optimize nutrition -Heel protector on both heels -Offload both heels -Low air loss mattress -Turn and reposition -Assess and f/u accordingly for any changes TANK FRANCES RN Oct 10, 2017 21:38
[2017-10-10] MEDS: Acetaminophen 650mg/20.3ml NG PRN (22:22)
--- NOTE | 2017-10-10 22:29 | General Progress Note ---
Assessment/Plan Assessment/Plan #. Coagulopathy - potentially related to DIC early onset, will obtain hapto, inr repeat, fibrinogen, DIC panel --> administer FFP 4 units and vitamin k repeat prior to procedure --> DW pulm Dr. Parekh --> Likely related to infection versus other cause. --> Bili improved #. Pancytopenia --> WBC count and platelet counts improved from yesterday. --> Transfuse platelets if <20k --> Monitor and trend cbc daily. #. Anemia due to underlying chronic disease. Continue to closely monitor. --> Hemoglobin goal is above 7. --> Occult blood detected. Consider GI recs. --> Transfuse as necessary --> Blood transfusion not required unless symptomatic or hgb below goal. #. Leukocytosis likely related to underlying pneumonia infection. --> Resolved on antibiotic treatment. #. Thrombocytopenia, severe and progressive, acute onset, likely secondary to underlying infection, aspiration, hit was negative --> Duplex of the lower extremities is negative, therefore less likely HIT and other causes are more likely such as underlying infection. --> Platelets goal >20k, transfuse if necessary. --> On antibiotics as per ID #. Community-acquired pneumonia versus hospital-acquired. --> The patient on broad-spectrum antibiotics. --> Improved. --> Urine culture growing E. coli. Continue to closely monitor. #. Transaminitis. She has been seen by GI Service. Continue to closely monitor. #. Low-grade fever. Closely observe. #. Encephalopathy. Subjective Date patient seen: Oct 10, 2017 Constitutional: Denies: no symptoms, chills, diaphoresis, fever, malaise, weakness, other HEENT: Denies: no symptoms, eye pain, blurred vision, tearing, double vision, ear pain, ear discharge, nose pain, nose congestion, throat pain, throat swelling, mouth pain, mouth swelling, other Cardiovascular: Denies: no symptoms, chest pain, edema, irregular heart rate, lightheadedness, palpitations, syncope, other Respiratory: Denies: no symptoms, cough, orthopnea, shortness of breath, SOB with excertion, SOB at rest, sputum, stridor, wheezing, other Gastrointestinal/Abdominal: Denies: no symptoms, abdomen distended, abdominal pain, black stools, tarry stools, blood in stool, constipated, diarrhea, difficulty swallowing, nausea, poor appetite, poor fluid intake, rectal bleeding , vomiting, other Genitourinary: Denies: no symptoms, burning, discharge, frequency, flank pain, hematuria, incontinence, pain, urgency, other 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: Denies: no symptoms, anxiety, depressed, emotional problems, headache, numbness, paresthesia, pre-existing deficit, seizure, tingling, tremors, weakness, other Hematologic/Lymphatic: Reports: anemia Allergies: Coded Allergies: No Known Allergies (Verified , 11/18/08) Subjective On vent in ICU. Leukopenia and platelets improved. Bili improved. Objective Last 24 Hour Vital Signs Date Time Temp Pulse Resp B/P (MAP) Pulse Ox O2 Delivery O2 Flow Rate FiO2 10/10/17 21:24 81 28 40 10/10/17 21:00 88 25 120/59 95 Mechanical Ventilator 40 10/10/17 20:00 40 10/10/17 20:00 77 10/10/17 20:00 98.4 83 29 133/75 97 Mechanical Ventilator 40 98.4 10/10/17 19:00 72 20 40 10/10/17 19:00 78 28 108/48 98 Mechanical Ventilator 40 10/10/17 18:44 76 115/49 10/10/17 18:00 73 25 114/54 98 Mechanical Ventilator 40 10/10/17 17:03 79 21 40 10/10/17 17:00 77 20 131/56 97 Mechanical Ventilator 40 10/10/17 16:00 40 10/10/17 16:00 75 10/10/17 16:00 97.2 80 21 117/46 97 Mechanical Ventilator 40 97.2 10/10/17 15:02 81 21 40 10/10/17 15:00 76 22 119/53 96 Mechanical Ventilator 40 10/10/17 14:00 90 27 130/62 96 Mechanical Ventilator 40 10/10/17 13:39 73 137/62 10/10/17 13:25 80 19 40 10/10/17 13:00 74 25 137/62 95 Mechanical Ventilator 40 10/10/17 12:00 96 10/10/17 12:00 40 10/10/17 12:00 97.9 79 24 130/51 97 Mechanical Ventilator 40 97.9 10/10/17 11:20 73 19 40 10/10/17 11:00 84 25 141/67 97 Mechanical Ventilator 40 10/10/17 10:00 68 32 128/58 97 Mechanical Ventilator 40 10/10/17 09:03 63 18 40 10/10/17 09:00 65 31 109/72 97 Mechanical Ventilator 40 10/10/17 08:00 97.4 61 28 130/51 100 Mechanical Ventilator 40 97.4 10/10/17 08:00 40 10/10/17 08:00 62 10/10/17 07:00 61 23 125/50 100 Mechanical Ventilator 40 10/10/17 06:35 61 18 40 10/10/17 06:00 62 24 116/48 98 Mechanical Ventilator 40 10/10/17 06:00 68 116/48 10/10/17 05:01 72 20 40 10/10/17 05:00 74 24 120/45 98 Mechanical Ventilator 40 10/10/17 04:00 75 10/10/17 04:00 98.0 75 26 122/51 98 Mechanical Ventilator 40 98.0 10/10/17 04:00 40 10/10/17 03:23 75 23 40 10/10/17 03:00 75 31 126/54 98 Mechanical Ventilator 40 10/10/17 02:00 71 31 126/54 98 Mechanical Ventilator 40 10/10/17 01:00 73 22 40 10/10/17 01:00 74 27 123/50 98 Mechanical Ventilator 40 10/10/17 00:00 98.2 77 23 112/49 99 Mechanical Ventilator 40 98.2 10/10/17 00:00 40 10/10/17 00:00 76 10/09/17 23:00 70 21 40 10/09/17 23:00 70 23 110/46 99 Mechanical Ventilator 40 10/09/17 22:32 74 119/53 Intake and Output 10/09/17 10/10/17 19:00 07:00 Intake Total 780 ml 250 ml Output Total 640 ml 1161 ml Balance 140 ml -911 ml IV Total 220 ml Tube Feeding 560 ml 250 ml Output Urine Total 640 ml 1160 ml Stool Total 1 ml # Bowel Movements 1 6 Laboratory Tests 10/10/17 00:50: Prothrombin Time 12.0H, Prothromb Time International Ratio 1.1 10/10/17 04:15: White Blood Count 7.6#, Red Blood Count 2.80L, Hemoglobin 8.8L, Hematocrit 28.0L , Mean Corpuscular Volume 100H, Mean Corpuscular Hemoglobin 31.6H, Mean Corpuscular Hemoglobin Concent 31.5L, Red Cell Distribution Width 17.5H, Platelet Count 152, Mean Platelet Volume 9.3, Neutrophils (%) (Auto) 84.2H, Lymphocytes (%) (Auto) 6.4L, Monocytes (%) (Auto) 8.4, Eosinophils (%) (Auto) 0.1, Basophils (%) (Auto) 0.9, Activated Partial Thromboplast Time 26, Sodium Level 143, Potassium Level 2.9L, Chloride Level 107, Carbon Dioxide Level 27, Anion Gap 9, Blood Urea Nitrogen 29H, Creatinine 0.8, Estimat Glomerular Filtration Rate , Glucose Level 145H, Calcium Level 7.8L, Phosphorus Level 2.8, Magnesium Level 2.3, Total Bilirubin 8.0H, Direct Bilirubin 6.6H, Aspartate Amino Transf (AST/SGOT) 82H, Alanine Aminotransferase (ALT/SGPT) 57, Alkaline Phosphatase 1120H, Total Protein 6.1L, Albumin 1.9L, Globulin 4.2, Albumin/ Globulin Ratio 0.5L Height (Feet): 5 Height (Inches): 5.00 Weight (Pounds): 108 General Appearance: confused Respiratory/Chest: decreased breath sounds Abdomen: soft Johnny Sinha MD Oct 10, 2017 22:29
[2017-10-11] VITALS (24 sets, daily range): BP systolic 96–143; BP diastolic 41–71
[2017-10-11 05:53] LABS: BASOPHILS % (AUTO) 0.6 % (0.0-2.0); EOSINOPHILS % (AUTO) 1.4 % (0.0-3.0); HEMOGLOBIN 8.7 G/DL (12.0-16.0); LYMPHOCYTES % (AUTO) 7.1 % (20.0-45.0); MEAN CORPUSCULAR VOLUME 99 FL (80-99); MONOCYTES % (AUTO) 7.1 % (1.0-10.0); NEUTROPHILS % (AUTO) 83.7 % (45.0-75.0); PLATELET COUNT 146 K/UL (150-450); RED BLOOD COUNT 2.72 M/UL (4.20-5.40); RED CELL DISTRIBUTION WIDTH 16.9 % (11.6-14.8); WHITE BLOOD COUNT 6.5 K/UL (4.8-10.8)
[2017-10-11] MEDS: NovoLOG Insulin Flexpen SUBQ SCH ×4 (06:00→23:54)
[2017-10-11 06:12] LABS: ALANINE AMINOTRANSFERASE 74 U/L (12-78); ALBUMIN 1.7 G/DL (3.4-5.0); ALBUMIN/GLOBULIN RATIO 0.5 (1.0-2.7); ALKALINE PHOSPHATASE 1386 U/L (46-116); ANION GAP 6 mmol/L (5-15); ASPARTATE AMINO TRANSFERASE 121 U/L (15-37); BILIRUBIN,TOTAL 6.5 MG/DL (0.2-1.0); BLOOD UREA NITROGEN 30 mg/dL (7-18); CALCIUM 7.7 MG/DL (8.5-10.1); CARBON DIOXIDE 32 MMOL/L (21-32); CHLORIDE 109 MMOL/L (98-107); CREATININE 0.7 MG/DL (0.55-1.30); POTASSIUM 3.1 MMOL/L (3.5-5.1); SODIUM 147 MMOL/L (136-145)
[2017-10-11 06:43] LABS: BILIRUBIN,DIRECT 5.5 MG/DL (0.0-0.3)
--- NOTE | 2017-10-11 08:05 | General Progress Note ---
Assessment/Plan Problem List: (1) Transaminitis ICD Codes: R74.0 - Nonspecific elevation of levels of transaminase and lactic acid dehydrogenase [LDH] SNOMED: 582853573, 603061574 (2) Anemia ICD Codes: D64.9 - Anemia, unspecified SNOMED: 808496073 (3) Diabetes mellitus ICD Codes: E11.9 - Type 2 diabetes mellitus without complications SNOMED: 05792640 (4) Respiratory failure ICD Codes: J96.90 - Respiratory failure, unspecified, unspecified whether with hypoxia or hypercapnia SNOMED: 724035552 Qualifiers: Qualified Codes: J96.00 - Acute respiratory failure, unspecified whether with hypoxia or hypercapnia Assessment/Plan TF tolerated at 50 cc fu LFTS posible trach pending for Friday repeat labs in am Subjective ROS Limited/Unobtainable: No Allergies: Coded Allergies: No Known Allergies (Verified , 11/18/08) Subjective intubated in the ICU Objective Last 24 Hour Vital Signs Date Time Temp Pulse Resp B/P (MAP) Pulse Ox O2 Delivery O2 Flow Rate FiO2 10/11/17 07:04 86 24 40 10/11/17 07:00 75 22 123/68 100 Mechanical Ventilator 40 10/11/17 06:00 73 25 113/56 99 Mechanical Ventilator 40 10/11/17 05:43 73 23 40 10/11/17 05:00 75 28 110/52 99 Mechanical Ventilator 40 10/11/17 04:00 72 10/11/17 04:00 98.5 72 34 112/71 97 Mechanical Ventilator 40 98.5 10/11/17 04:00 40 10/11/17 03:30 74 22 40 10/11/17 03:00 72 33 108/53 97 Mechanical Ventilator 40 10/11/17 02:00 80 29 108/47 97 Mechanical Ventilator 40 10/11/17 01:47 84 29 40 10/11/17 01:00 78 25 114/54 97 Mechanical Ventilator 40 10/11/17 00:00 98.1 86 27 143/69 97 Mechanical Ventilator 40 98.1 10/11/17 00:00 91 10/10/17 23:00 86 30 107/47 99 Mechanical Ventilator 40 10/10/17 22:57 92 28 40 10/10/17 22:00 97 27 131/52 99 Mechanical Ventilator 40 3/30/18 21:24 81 28 40 10/10/17 21:00 88 25 120/59 95 Mechanical Ventilator 40 10/10/17 20:00 40 10/10/17 20:00 77 10/10/17 20:00 98.4 83 29 133/75 97 Mechanical Ventilator 40 98.4 10/10/17 19:00 72 20 40 10/10/17 19:00 78 28 108/48 98 Mechanical Ventilator 40 10/10/17 18:44 76 115/49 10/10/17 18:00 73 25 114/54 98 Mechanical Ventilator 40 10/10/17 17:03 79 21 40 10/10/17 17:00 77 20 131/56 97 Mechanical Ventilator 40 10/10/17 16:00 40 10/10/17 16:00 75 10/10/17 16:00 97.2 80 21 117/46 97 Mechanical Ventilator 40 97.2 10/10/17 15:02 81 21 40 10/10/17 15:00 76 22 119/53 96 Mechanical Ventilator 40 10/10/17 14:00 90 27 130/62 96 Mechanical Ventilator 40 10/10/17 13:39 73 137/62 10/10/17 13:25 80 19 40 10/10/17 13:00 74 25 137/62 95 Mechanical Ventilator 40 10/10/17 12:00 96 10/10/17 12:00 40 10/10/17 12:00 97.9 79 24 130/51 97 Mechanical Ventilator 40 97.9 10/10/17 11:20 73 19 40 10/10/17 11:00 84 25 141/67 97 Mechanical Ventilator 40 10/10/17 10:00 68 32 128/58 97 Mechanical Ventilator 40 10/10/17 09:03 63 18 40 10/10/17 09:00 65 31 109/72 97 Mechanical Ventilator 40 Intake and Output 10/10/17 10/11/17 19:00 07:00 Intake Total 610 ml 700 ml Output Total 1770 ml 1350 ml Balance -1160 ml -650 ml Intake Free Water 100 ml IV Total 110 ml Tube Feeding 300 ml 600 ml Other 200 ml Output Urine Total 1770 ml 1350 ml # Bowel Movements 2 2 Laboratory Tests 10/11/17 03:40: White Blood Count 6.5, Red Blood Count 2.72L, Hemoglobin 8.7L, Hematocrit 27.0L , Mean Corpuscular Volume 99, Mean Corpuscular Hemoglobin 32.1H, Mean Corpuscular Hemoglobin Concent 32.3, Red Cell Distribution Width 16.9H, Platelet Count 146L, Mean Platelet Volume 8.8, Neutrophils (%) (Auto) 83.7H, Lymphocytes (%) (Auto) 7.1L, Monocytes (%) (Auto) 7.1, Eosinophils (%) (Auto) 1.4, Basophils (%) (Auto) 0.6, Prothrombin Time 10.8, Prothromb Time International Ratio 1.0, Sodium Level 147H, Potassium Level 3.1L, Chloride Level 109H, Carbon Dioxide Level 32, Anion Gap 6, Blood Urea Nitrogen 30H, Creatinine 0.7, Estimat Glomerular Filtration Rate , Glucose Level 77, Calcium Level 7.7L, Total Bilirubin 6.5H, Direct Bilirubin 5.5H, Aspartate Amino Transf (AST/SGOT) 121H, Alanine Aminotransferase (ALT/SGPT) 74, Alkaline Phosphatase 1386H, Total Protein 5.4L, Albumin 1.7L, Globulin 3.7, Albumin/Globulin Ratio 0.5L Height (Feet): 5 Height (Inches): 5.00 Weight (Pounds): 110 General Appearance: lethargic EENT: normal ENT inspection Neck: supple Cardiovascular: normal rate Respiratory/Chest: decreased breath sounds Abdomen: normal bowel sounds, non tender, soft Extremities: non-tender KIT GONZALEZ Oct 11, 2017 08:05
[2017-10-11] MEDS ORDERED: Albuterol/Ipratropium 3ml neb HHN PRN (08:30)
[2017-10-11] MEDS: Ketotifen Fumarate 0.035% 5ml BOTH EYES SCH (09:00)
[2017-10-11] MEDS ORDERED: Potassium Chloride 40 MEQ in Sodium Chloride 500ML 550 ML IVPB ONE ×2 (09:30→10:00)
[2017-10-11] MEDS: Pantoprazole Inj IVP SCH (10:03)
[2017-10-11] MEDS: dilTIAZem HCl 30mg tab NG SCH ×2 (10:03→18:14)
--- NOTE | 2017-10-11 10:03 | Pulmonolgy Critical Care Note ---
Critical Care - Asmt/Plan Assessment/Plan: ASSESSMENT Acute hypoxemic RF requiring intubation ARDS failure to wean severe sepsis Aspiration PNA , s/p Rx UTI with E coli, s/p Rx LBBB Diastolic dysfunction anemia of chronic disease s/p blood transfusion thrombocytopenia encephalopathy e/lyte imbalance transaminitis biliary obstruction possible cholangitis CBD sludge periampullary diverticulum HTN moderate AI moderate pulmonary HTN RA severe protein calorie malnutrition PLAN OF CARE ICU status vent support, pulm toilet fup with CXR and ABG , titrate settings as needed Failure to wean need trach, CT chest - Extensive diffuse bilateral pulmonary parenchymal disease, slightly worse than on prior exam of 09/23/2017. Main differential considerations include pneumonia, ARDS, pulmonary edema, among multiple other possibilities. Bilateral moderate to large pleural effusions, slightly increased in size from started on diuresis with close monthlong of cardiorenal parameters and volumes bronch and trach on Friday cardio follows ECHO with EF 55 and RVSP of 49, moderate AI No evidence of advanced heart block BP management with Cardizem s/p abx Rx for PNA and UTI, ID follows, s/p Mycamine urine cx+ E coli ,influenza negative s/p empiric Tamiflu OP tube feeding with nutritional recs implemented, strict aspiration precautions, tolerates TF GI prophylaxis monitor lytes and correct as needed, avoid nephrotoxics anemia w/up c/w anemia of chronic disease s/p blood transfusion PLT improved, hep Ab- 0.07 negative for HIT, heme follows, stool OB + GI follows CT A/P no acute findings HIDA negative but delayed emptying to duodenum s/p ERCP 09/30 with findings of periampullary diverticulum LFT initially were trending down , then up again EUS 09/30: Dilated common bile duct with lots of sludge in the distal common bile duct family finally agreed to repeat ERCP repeated ERCP with placement of endobiliary stent 10/01 CT A/P 10/01 - Endometrial biliary stent now present. Mild central intrahepatic biliary ductal dilatation despite this monitor LFT and fup GI recs . BS management with SS insulin bowel regimen case discussed and evaluated by supervising physician Critical Care - Objective Last 24 Hour Vital Signs Date Time Temp Pulse Resp B/P (MAP) Pulse Ox O2 Delivery O2 Flow Rate FiO2 10/11/17 08:55 85 23 40 10/11/17 07:04 86 24 40 10/11/17 07:00 75 22 123/68 100 Mechanical Ventilator 40 10/11/17 06:00 73 25 113/56 99 Mechanical Ventilator 40 10/11/17 05:43 73 23 40 10/11/17 05:00 75 28 110/52 99 Mechanical Ventilator 40 10/11/17 04:00 72 10/11/17 04:00 98.5 72 34 112/71 97 Mechanical Ventilator 40 98.5 10/11/17 04:00 40 10/11/17 03:30 74 22 40 10/11/17 03:00 72 33 108/53 97 Mechanical Ventilator 40 10/11/17 02:00 80 29 108/47 97 Mechanical Ventilator 40 10/11/17 01:47 84 29 40 10/11/17 01:00 78 25 114/54 97 Mechanical Ventilator 40 10/11/17 00:00 98.1 86 27 143/69 97 Mechanical Ventilator 40 98.1 10/11/17 00:00 91 10/10/17 23:00 86 30 107/47 99 Mechanical Ventilator 40 10/10/17 22:57 92 28 40 10/10/17 22:00 97 27 131/52 99 Mechanical Ventilator 40 10/10/17 21:24 81 28 40 10/10/17 21:00 88 25 120/59 95 Mechanical Ventilator 40 10/10/17 20:00 40 10/10/17 20:00 77 10/10/17 20:00 98.4 83 29 133/75 97 Mechanical Ventilator 40 98.4 10/10/17 19:00 72 20 40 10/10/17 19:00 78 28 108/48 98 Mechanical Ventilator 40 10/10/17 18:44 76 115/49 10/10/17 18:00 73 25 114/54 98 Mechanical Ventilator 40 10/10/17 17:03 79 21 40 10/10/17 17:00 77 20 131/56 97 Mechanical Ventilator 40 10/10/17 16:00 40 10/10/17 16:00 75 10/10/17 16:00 97.2 80 21 117/46 97 Mechanical Ventilator 40 97.2 10/10/17 15:02 81 21 40 10/10/17 15:00 76 22 119/53 96 Mechanical Ventilator 40 10/10/17 14:00 90 27 130/62 96 Mechanical Ventilator 40 10/10/17 13:39 73 137/62 10/10/17 13:25 80 19 40 10/10/17 13:00 74 25 137/62 95 Mechanical Ventilator 40 10/10/17 12:00 96 10/10/17 12:00 40 10/10/17 12:00 97.9 79 24 130/51 97 Mechanical Ventilator 40 97.9 10/10/17 11:20 73 19 40 10/10/17 11:00 84 25 141/67 97 Mechanical Ventilator 40 10/10/17 10:00 68 32 128/58 97 Mechanical Ventilator 40 Objective: Condition: critical, awake, poorly but responsive HEENT: atraumatic, normocephalic, OP with ET in place, intact, NGT with TF Lungs: few scattered crackles at bases Heart: HR/BP stable Abdomen: soft Extremities: no C/C/E Micro: Microbiology Date/Time Source Procedure Growth Status 10/09/17 09:00 Sputum Expectorated Gram Stain - Final Complete 10/09/17 09:00 Sputum Expectorated Sputum Culture - Final NORMAL UPPER RESPIRATORY SUNDAY AT 48 ... Complete Accucheck: 109 Critical Care - Subjective ROS Limited/Unobtainable: Yes Interval Events: afebrile, no leucocytosis no signs of respiratory distress responding to diuresis AST with trend up, despite endobiliary stent placement K-3.1 Condition: critical IV Access: peripheral EKG Rhythm: Sinus Rhythm FI02: 40 Vent Support Breath Rate: 18 Vent Support Mode: AC Vent Tidal Volume: 500 Sputum Amount: Small PEEP: 5.0 PIP: 49 Tube Feeding Amount: 50 I&O: Intake and Output 10/10/17 10/11/17 19:00 07:00 Intake Total 610 ml 700 ml Output Total 1770 ml 1350 ml Balance -1160 ml -650 ml Intake Free Water 100 ml IV Total 110 ml Tube Feeding 300 ml 600 ml Other 200 ml Output Urine Total 1770 ml 1350 ml # Bowel Movements 2 2 CXR: 10/08 Stable satisfactory position of endotracheal tube. Nasogastric tube has been removed. Extensive bilateral interstitial and alveolar parenchymal disease persists and is unchanged. Normal cardiomediastinal silhouette ET-Tube: 7.5 ET Position: 20 Huma Granados NP ([place]te[place]) Oct 11, 2017 10:03
--- NOTE | 2017-10-11 10:36 | Nephrology Progress Note ---
Assessment/Plan Problem List: (1) ARDS (adult respiratory distress syndrome) (2) Electrolyte imbalance (3) Thrombocytopenia Assessment (1) ARDS (adult respiratory distress syndrome) (2) Aspiration pneumonia (3) Protein-calorie malnutrition, severe (4) Diabetes mellitus (5) Anemia , aplastic by history (6) DM (7) UTI (8) Electrolyte imbalance (9) HTN (10) Depression (11) RA . Plan stable agree with diuresis and K supplement due trach no set date k via NGT as needed water via NGT Adjust BP meds K and Phos supplement as needed Monitor renal parameters and urine output avoid nephrotoxics per orders discussed with RN Left ventricular ejection fraction estimated to be 55 %. Subjective ROS Limited/Unobtainable: Yes Objective Objective Last 24 Hour Vital Signs Date Time Temp Pulse Resp B/P (MAP) Pulse Ox O2 Delivery O2 Flow Rate FiO2 10/11/17 10:03 77 121/52 10/11/17 08:55 85 23 40 10/11/17 07:04 86 24 40 10/11/17 07:00 75 22 123/68 100 Mechanical Ventilator 40 10/11/17 06:00 73 25 113/56 99 Mechanical Ventilator 40 10/11/17 05:43 73 23 40 10/11/17 05:00 75 28 110/52 99 Mechanical Ventilator 40 10/11/17 04:00 72 10/11/17 04:00 98.5 72 34 112/71 97 Mechanical Ventilator 40 98.5 10/11/17 04:00 40 10/11/17 03:30 74 22 40 10/11/17 03:00 72 33 108/53 97 Mechanical Ventilator 40 10/11/17 02:00 80 29 108/47 97 Mechanical Ventilator 40 10/11/17 01:47 84 29 40 10/11/17 01:00 78 25 114/54 97 Mechanical Ventilator 40 10/11/17 00:00 98.1 86 27 143/69 97 Mechanical Ventilator 40 98.1 10/11/17 00:00 91 10/10/17 23:00 86 30 107/47 99 Mechanical Ventilator 40 10/10/17 22:57 92 28 40 10/10/17 22:00 97 27 131/52 99 Mechanical Ventilator 40 10/10/17 21:24 81 28 40 10/10/17 21:00 88 25 120/59 95 Mechanical Ventilator 40 10/10/17 20:00 40 10/10/17 20:00 77 10/10/17 20:00 98.4 83 29 133/75 97 Mechanical Ventilator 40 98.4 10/10/17 19:00 72 20 40 10/10/17 19:00 78 28 108/48 98 Mechanical Ventilator 40 10/10/17 18:44 76 115/49 10/10/17 18:00 73 25 114/54 98 Mechanical Ventilator 40 10/10/17 17:03 79 21 40 10/10/17 17:00 77 20 131/56 97 Mechanical Ventilator 40 10/10/17 16:00 40 10/10/17 16:00 75 10/10/17 16:00 97.2 80 21 117/46 97 Mechanical Ventilator 40 97.2 10/10/17 15:02 81 21 40 10/10/17 15:00 76 22 119/53 96 Mechanical Ventilator 40 10/10/17 14:00 90 27 130/62 96 Mechanical Ventilator 40 10/10/17 13:39 73 137/62 10/10/17 13:25 80 19 40 10/10/17 13:00 74 25 137/62 95 Mechanical Ventilator 40 10/10/17 12:00 96 10/10/17 12:00 40 10/10/17 12:00 97.9 79 24 130/51 97 Mechanical Ventilator 40 97.9 10/10/17 11:20 73 19 40 10/10/17 11:00 84 25 141/67 97 Mechanical Ventilator 40 Intake and Output 10/10/17 10/11/17 19:00 07:00 Intake Total 610 ml 700 ml Output Total 1770 ml 1350 ml Balance -1160 ml -650 ml Intake Free Water 100 ml IV Total 110 ml Tube Feeding 300 ml 600 ml Other 200 ml Output Urine Total 1770 ml 1350 ml # Bowel Movements 2 2 Laboratory Tests 10/11/17 03:40: White Blood Count 6.5, Red Blood Count 2.72L, Hemoglobin 8.7L, Hematocrit 27.0L , Mean Corpuscular Volume 99, Mean Corpuscular Hemoglobin 32.1H, Mean Corpuscular Hemoglobin Concent 32.3, Red Cell Distribution Width 16.9H, Platelet Count 146L, Mean Platelet Volume 8.8, Neutrophils (%) (Auto) 83.7H, Lymphocytes (%) (Auto) 7.1L, Monocytes (%) (Auto) 7.1, Eosinophils (%) (Auto) 1.4, Basophils (%) (Auto) 0.6, Prothrombin Time 10.8, Prothromb Time International Ratio 1.0, Sodium Level 147H, Potassium Level 3.1L, Chloride Level 109H, Carbon Dioxide Level 32, Anion Gap 6, Blood Urea Nitrogen 30H, Creatinine 0.7, Estimat Glomerular Filtration Rate , Glucose Level 77, Calcium Level 7.7L, Total Bilirubin 6.5H, Direct Bilirubin 5.5H, Aspartate Amino Transf (AST/SGOT) 121H, Alanine Aminotransferase (ALT/SGPT) 74, Alkaline Phosphatase 1386H, Total Protein 5.4L, Albumin 1.7L, Globulin 3.7, Albumin/Globulin Ratio 0.5L Height (Feet): 5 Height (Inches): 5.00 Weight (Pounds): 110 General Appearance: no apparent distress Cardiovascular: regular rhythm Respiratory/Chest: decreased breath sounds Abdomen: soft Objective no change YAEL HANSEN Oct 11, 2017 10:36
--- NOTE | 2017-10-11 13:38 | Cardiac Electrophysiology PN ---
Assessment/Plan Assessment/Plan 1. Vent dependent Respiratory failure, due to underlying ARDS , pneumonia. Already ruled out for myocardial infarction. Now on 45% Fio2 with PEEP of 5. Tracheostomy by Dr Echevarria and and Bronchoscopy by Dr Parekh Friday 10 am if family consents 2. Left bundle-branch block. No evidence of advanced heart block. 3. HTN and diastolic dysfunction. On Cardizem 30 NG q8 hr. Echo EF 55% Decrease Cardizem to 30 BID as BP was borderline and had transient lane 4. Hypernatremia and Azotemia. F/U per Dr. Mayer 5. Pneumonia and sepsis on IV antibiotics by Dr. Hunter. 6. Psychiatric disorder. 7. Anasarca. 3rd spacing. 8. Anemia with Hb 6.6 s/p PRBC. CT chest abdomen and pelvis without contrast no acute finding S/P EGD by Dr Walton 9. Severe thrombocytopenia. S/P platelet transfusion 10. Abnormal LFT, Biliary obstruction, possible cholangitis. S/P ERCP. CBD sludge. S/P repeat ERCP and stent by Dr Walton 11. High INR 3.5 likely due to hepatic failure. S/P FFP and Vit K. INR 1 now DW RN Subjective Subjective Intubated on Vent in ICU. No SVT or VT. Bronchoscopy and Tracheostomy Friday if family consents Objective Last 24 Hour Vital Signs Date Time Temp Pulse Resp B/P (MAP) Pulse Ox O2 Delivery O2 Flow Rate FiO2 10/11/17 13:00 81 23 128/46 100 Mechanical Ventilator 40 10/11/17 12:49 76 23 40 10/11/17 12:00 98.8 80 22 122/47 100 Mechanical Ventilator 40 98.8 10/11/17 12:00 79 10/11/17 12:00 40 10/11/17 11:00 72 22 115/47 100 Mechanical Ventilator 40 10/11/17 10:57 75 20 40 10/11/17 10:03 77 121/52 10/11/17 10:00 74 22 115/47 100 Mechanical Ventilator 40 10/11/17 09:00 73 21 113/52 100 Mechanical Ventilator 40 10/11/17 08:55 85 23 40 10/11/17 08:00 77 10/11/17 08:00 98.5 72 22 115/54 97 Mechanical Ventilator 40 98.5 10/11/17 08:00 40 10/11/17 07:04 86 24 40 10/11/17 07:00 75 22 123/68 100 Mechanical Ventilator 40 10/11/17 06:00 73 25 113/56 99 Mechanical Ventilator 40 10/11/17 05:43 73 23 40 10/11/17 05:00 75 28 110/52 99 Mechanical Ventilator 40 10/11/17 04:00 72 10/11/17 04:00 98.5 72 34 112/71 97 Mechanical Ventilator 40 98.5 10/11/17 04:00 40 10/11/17 03:30 74 22 40 10/11/17 03:00 72 33 108/53 97 Mechanical Ventilator 40 10/11/17 02:00 80 29 108/47 97 Mechanical Ventilator 40 10/11/17 01:47 84 29 40 10/11/17 01:00 78 25 114/54 97 Mechanical Ventilator 40 10/11/17 00:00 98.1 86 27 143/69 97 Mechanical Ventilator 40 98.1 10/11/17 00:00 91 10/10/17 23:00 86 30 107/47 99 Mechanical Ventilator 40 10/10/17 22:57 92 28 40 10/10/17 22:00 97 27 131/52 99 Mechanical Ventilator 40 10/10/17 21:24 81 28 40 10/10/17 21:00 88 25 120/59 95 Mechanical Ventilator 40 10/10/17 20:00 40 10/10/17 20:00 77 10/10/17 20:00 98.4 83 29 133/75 97 Mechanical Ventilator 40 98.4 10/10/17 19:00 72 20 40 10/10/17 19:00 78 28 108/48 98 Mechanical Ventilator 40 10/10/17 18:44 76 115/49 10/10/17 18:00 73 25 114/54 98 Mechanical Ventilator 40 10/10/17 17:03 79 21 40 10/10/17 17:00 77 20 131/56 97 Mechanical Ventilator 40 10/10/17 16:00 40 10/10/17 16:00 75 10/10/17 16:00 97.2 80 21 117/46 97 Mechanical Ventilator 40 97.2 10/10/17 15:02 81 21 40 10/10/17 15:00 76 22 119/53 96 Mechanical Ventilator 40 10/10/17 14:00 90 27 130/62 96 Mechanical Ventilator 40 10/10/17 13:39 73 137/62 Intake and Output 10/10/17 10/11/17 19:00 07:00 Intake Total 610 ml 700 ml Output Total 1770 ml 1350 ml Balance -1160 ml -650 ml Intake Free Water 100 ml IV Total 110 ml Tube Feeding 300 ml 600 ml Other 200 ml Output Urine Total 1770 ml 1350 ml # Bowel Movements 2 2 Laboratory Tests Test 10/11/17 03:40 White Blood Count 6.5 K/UL (4.8-10.8) Red Blood Count 2.72 M/UL (4.20-5.40) L Hemoglobin 8.7 G/DL (12.0-16.0) L Hematocrit 27.0 % (37.0-47.0) L Mean Corpuscular Volume 99 FL (80-99) Mean Corpuscular Hemoglobin 32.1 PG (27.0-31.0) H Mean Corpuscular Hemoglobin Concent 32.3 G/DL (32.0-36.0) Red Cell Distribution Width 16.9 % (11.6-14.8) H Platelet Count 146 K/UL (150-450) L Mean Platelet Volume 8.8 FL (6.5-10.1) Neutrophils (%) (Auto) 83.7 % (45.0-75.0) H Lymphocytes (%) (Auto) 7.1 % (20.0-45.0) L Monocytes (%) (Auto) 7.1 % (1.0-10.0) Eosinophils (%) (Auto) 1.4 % (0.0-3.0) Basophils (%) (Auto) 0.6 % (0.0-2.0) Prothrombin Time 10.8 SEC (9.30-11.50) Prothromb Time International Ratio 1.0 (0.9-1.1) Sodium Level 147 MMOL/L (136-145) H Potassium Level 3.1 MMOL/L (3.5-5.1) L Chloride Level 109 MMOL/L (98-107) H Carbon Dioxide Level 32 MMOL/L (21-32) Anion Gap 6 mmol/L (5-15) Blood Urea Nitrogen 30 mg/dL (7-18) H Creatinine 0.7 MG/DL (0.55-1.30) Estimat Glomerular Filtration Rate mL/min (>60) Glucose Level 77 MG/DL (74-106) Calcium Level 7.7 MG/DL (8.5-10.1) L Total Bilirubin 6.5 MG/DL (0.2-1.0) H Direct Bilirubin 5.5 MG/DL (0.0-0.3) H Aspartate Amino Transf (AST/SGOT) 121 U/L (15-37) H Alanine Aminotransferase (ALT/SGPT) 74 U/L (12-78) Alkaline Phosphatase 1386 U/L (46-116) H Total Protein 5.4 G/DL (6.4-8.2) L Albumin 1.7 G/DL (3.4-5.0) L Globulin 3.7 g/dL Albumin/Globulin Ratio 0.5 (1.0-2.7) L Microbiology Date/Time Source Procedure Growth Status 10/09/17 09:00 Sputum Expectorated Gram Stain - Final Complete 10/09/17 09:00 Sputum Expectorated Sputum Culture - Final NORMAL UPPER RESPIRATORY SUNDAY AT 48 ... Complete Objective HEAD AND NECK: Orally intubated. Jaundiced LUNGS: Coarse rhonchi bilaterally CARDIOVASCULAR: Tachy S1 and S2.No murmur ABDOMEN: Soft. EXTREMITIES: 1+ pitting edema. Charlie Darnell MD Oct 11, 2017 13:37
--- NOTE | 2017-10-11 14:54 | Internal Med Progress Note ---
Subjective Date of Service: Oct 11, 2017 Physician Name Sina Bowens Attending Physician Jesus Barahona MD Current Medications Medications (Trade) Dose Ordered Sig/Hermes Route PRN Reason Start Time Stop Time Status Last Admin Dose Admin Acetaminophen (Tylenol) 650 mg Q6H PRN NG Fever/Headache/Mild Pain 10/11/17 08:30 11/10/17 08:29 Albuterol/ Ipratropium (Albuterol/ Ipratropium) 3 ml Q4H PRN HHN shortness of breath 10/11/17 08:30 10/16/17 08:29 Clonidine HCl (Catapres Tab) 0.1 mg Q4H PRN ORAL SBP>160 UNRELIEVED BY HYDRALAZ 09/16/17 16:45 10/15/17 16:59 Clotrimazole (Lotrimin) 1 applic EVERY 12 HOURS TOPIC 10/10/17 23:00 11/09/17 22:59 10/11/17 10:03 Dextrose (Dextrose 50%) STAT PRN IV Hypoglycemia 09/13/17 15:00 10/13/17 14:59 Diltiazem HCl (Cardizem) 30 mg BID NG 10/11/17 09:00 11/10/17 08:59 10/11/17 10:03 Furosemide (Lasix) 40 mg EVERY 12 HOURS IV 10/08/17 09:00 11/07/17 08:59 10/11/17 10:03 Insulin Aspart (NovoLOG) EVERY 6 HOURS SUBQ 09/17/17 12:00 10/17/17 11:59 10/11/17 12:43 Ketotifen Fumarate (Zatidor) 1 drop DAILY BOTH EYES 09/26/17 09:00 10/25/17 08:59 10/10/17 09:26 Pantoprazole (Protonix) 40 mg DAILY IVP 10/02/17 09:00 11/01/17 08:59 10/11/17 10:03 Polyethylene Glycol (Miralax) 17 gm BEDTIME ORAL 09/14/17 21:00 10/14/17 20:59 10/10/17 20:59 Allergies: Coded Allergies: No Known Allergies (Verified , 11/18/08) ROS Limited/Unobtainable: Yes Subjective 76 YO F admitted with Shortness of breath, now respiratory failure. Intubated and sedated. Cover for Internal Med-Dr. Barahona. ICU . S/P ERCP 10/08/17. Tracheostomy postponed due to coagulopathy. Objective Last Vital Signs Date Time Temp Pulse Resp B/P (MAP) Pulse Ox O2 Delivery O2 Flow Rate FiO2 10/11/17 14:00 85 23 136/58 100 Mechanical Ventilator 40 10/11/17 12:00 98.8 98.8 10/04/17 04:00 Laboratory Tests Test 10/11/17 03:40 White Blood Count 6.5 K/UL (4.8-10.8) Red Blood Count 2.72 M/UL (4.20-5.40) L Hemoglobin 8.7 G/DL (12.0-16.0) L Hematocrit 27.0 % (37.0-47.0) L Mean Corpuscular Volume 99 FL (80-99) Mean Corpuscular Hemoglobin 32.1 PG (27.0-31.0) H Mean Corpuscular Hemoglobin Concent 32.3 G/DL (32.0-36.0) Red Cell Distribution Width 16.9 % (11.6-14.8) H Platelet Count 146 K/UL (150-450) L Mean Platelet Volume 8.8 FL (6.5-10.1) Neutrophils (%) (Auto) 83.7 % (45.0-75.0) H Lymphocytes (%) (Auto) 7.1 % (20.0-45.0) L Monocytes (%) (Auto) 7.1 % (1.0-10.0) Eosinophils (%) (Auto) 1.4 % (0.0-3.0) Basophils (%) (Auto) 0.6 % (0.0-2.0) Prothrombin Time 10.8 SEC (9.30-11.50) Prothromb Time International Ratio 1.0 (0.9-1.1) Sodium Level 147 MMOL/L (136-145) H Potassium Level 3.1 MMOL/L (3.5-5.1) L Chloride Level 109 MMOL/L (98-107) H Carbon Dioxide Level 32 MMOL/L (21-32) Anion Gap 6 mmol/L (5-15) Blood Urea Nitrogen 30 mg/dL (7-18) H Creatinine 0.7 MG/DL (0.55-1.30) Estimat Glomerular Filtration Rate mL/min (>60) Glucose Level 77 MG/DL (74-106) Calcium Level 7.7 MG/DL (8.5-10.1) L Total Bilirubin 6.5 MG/DL (0.2-1.0) H Direct Bilirubin 5.5 MG/DL (0.0-0.3) H Aspartate Amino Transf (AST/SGOT) 121 U/L (15-37) H Alanine Aminotransferase (ALT/SGPT) 74 U/L (12-78) Alkaline Phosphatase 1386 U/L (46-116) H Total Protein 5.4 G/DL (6.4-8.2) L Albumin 1.7 G/DL (3.4-5.0) L Globulin 3.7 g/dL Albumin/Globulin Ratio 0.5 (1.0-2.7) L Microbiology Date/Time Source Procedure Growth Status 10/09/17 09:00 Sputum Expectorated Gram Stain - Final Complete 10/09/17 09:00 Sputum Expectorated Sputum Culture - Final NORMAL UPPER RESPIRATORY SUNDAY AT 48 ... Complete Intake and Output 10/10/17 10/11/17 19:00 07:00 Intake Total 610 ml 700 ml Output Total 1770 ml 1350 ml Balance -1160 ml -650 ml Intake Free Water 100 ml IV Total 110 ml Tube Feeding 300 ml 600 ml Other 200 ml Output Urine Total 1770 ml 1350 ml # Bowel Movements 2 2 Objective General Appearance: lethargic, thin EENT: normal ENT inspection Neck: non-tender, normal alignment, supple Cardiovascular: normal peripheral pulses, normal rate, regular rhythm, no gallop/murmur, no JVD Respiratory/Chest: Mechanical vent; respiratory distress, crackles/rales, rhonchi - bilaterally, expiratory wheezing Abdomen: normal bowel sounds, non tender, soft, no organomegaly, no mass Skin: normal pigmentation, warm/dry Assessment/Plan Problem List: (1) HTN (hypertension) Assessment & Plan: Currently hypotensive. (2) Arthritis, rheumatoid (3) Parkinsons disease (4) Aplastic anemia (5) GERD (gastroesophageal reflux disease) (6) Respiratory failure Assessment & Plan: Tracheostomy and broncholsopy scheduled this week postponed due to coagulopathy-see surgery note. Cont vent per pulmonary (7) Pneumonia (8) Dyspnea (9) Sepsis Assessment & Plan: Blood culture neg. Continue Amikacin, micafungin and flagyl per ID (10) ARDS (adult respiratory distress syndrome) Assessment & Plan: See pulmonary note (11) UTI (urinary tract infection) Assessment & Plan: E.Coli. Continue abx per ID (12) Anemia Assessment & Plan: S/P Transfusion 2 units PRBC (13) Diabetes mellitus, type II Assessment & Plan: Continue novolog sliding scale (14) Leukocytosis Assessment & Plan: Worsening. See ID note. Start amikacin and fluconazole (15) Thrombocytopenia (16) Gallbladder sludge Assessment & Plan: s/P ERCP 10/01, 10/07/17 and 10/08/17 (17) Coagulopathy Assessment & Plan: S/P FFP and Vit K Status: not improved SINA BOWENS Oct 11, 2017 14:54
--- NOTE | 2017-10-11 18:56 | Infectious Diseases Prog Note ---
Assessment/Plan Assessment/Plan The patient is a 76-year-old female w Fever, low grade, intermittent; resolved- ? persistent cholangitis as increased LFTs again -u.a no pyuria, ucx 20-30k C. albicans (colonizer) -CXR 10/04 : Interstitial and airspace opacities are again present -Bcx 10/03 NTD Leukocytosis , resolved- likely cholangitis -Cdiff neg -09/22 sp cx C.a lbicans, Bcx Neg -u/a wbc 10-15, nit neg, leuk +2; ucx >100k C. albicans -Fungal sp cx p Community-acquired vs healthcare-associated pneumonia, s/p RX (the patient has been recently hospitalized in [facility]). -now ARDS- r/o fungal PNA; worsening infiltrates- ?etiology - has received prolonged abx tx and empiric fungal tx; fungal serologies and cx pending to date -CT chest 10/07: Extensive diffuse bilateral pulmonary parenchymal disease, slightly worse than on prior exam of 09/23/2017. Main differential considerations include pneumonia, ARDS, pulmonary edema, among multiple other possibilities. Bilateral moderate to large pleural effusions, slightly increased in size from 09/23/2017. Nasogastric and endotracheal tubes in good position. Evidence of generalized anasarca, with diffuse subcutaneous soft tissue edema. - cxray 09/26 : no changes -CT chest 09/23: Diffuse extensive pulmonary parenchymal disease, with dense consolidation interspersed with groundglass opacities. Appearance nonspecific, possibilities include pulmonary edema, pneumonia, ARDS, hemorrhage. Bilateral pleural effusions, left greater than right. Diffuse edema of the subcutaneous fat, Multiple small thyroid nodules. All apparently under 1 cm, no further follow-up necessary. Degenerative changes of the shoulders 09/19 xray : Unchanged diffuse interstitial and airspace edema, -CrAg serum, U legionell ag neg; Asp ag, Cocci, fungitell p Probable influenza despite of negative influenza screening test, s/p Rx Abnormal liver function tests, ALP>>> AST -2ry to sludged CBD ,cholangitis, obstruction on CBD; AST/ALT normal now, ALP improved but now worsening again -s/p ERCP 10/08: Intraoperative images demonstrate faint opacification of the common bile duct, and placement of a new plastic endobiliary stent. What may be a previous malpositioned biliary stent is seen to the left of the endoscope -CT abd/p 10/07: Anasarca, also previously described, currently similar except for increased size of bilateral pleural fluid described on chest CT. Gallbladder wall edema, probably a manifestation of anasarca, although acute cholecystitis not excludable. Note that similar findings were seen on the previous study, which was followed by a negative HIDA scan. Endometrial biliary stent now present. Mild central intrahepatic biliary ductal dilatation despite this. Low-attenuation areas in the spleen, as described. Equivocal clinically evident previously in retrospect that much more conspicuous currently, probably due to less image artifact on the current study. These are nonspecific, could represent cysts, infarcts, areas of inflammation, much less likely neoplasm. Satisfactory position of nasogastric tube. 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 Nonspecific inflammatory changes surrounding the hips. Right hip region lipoma -s/p ERCP with stent placement 10/01 -EUS 09/30: 1. Dilated common bile duct with lots of sludge in the distal common bile duct, most probably explanation for abnormal liver function tests. 2. Large ascites -Abd US 09/29: Cholelithiasis, better demonstrated than on prior exam. Thickened gallbladder wall could indicate acute cholecystitis. However, gallbladder wall thickening also evident on prior study of 09/19/2017, after which a hepatobiliary scan was negative, so suspect this is more likely due to hemodynamic derangements given presence of ascites and pleural fluid. Extrahepatic biliary ductal dilatation, equivocally slightly increased from 2017. Downstream obstruction not excludable. Coarsened hepatic echotexture, consistent with hepatocellular disease, nonspecific as regards etiology. Equivocal hepatic surface micronodularity, could indicate early cirrhotic changes. -HIDA scan: Negative for evidence of cystic duct obstruction/acute cholecystitis. Common bile duct is demonstrated be patent, but emptying into the duodenum is delayed, not seen until 2 hours. Significance of this is uncertain. MRCP or CT scanning may be useful to clarify -CT abd/p 09/23: Evidence of anasarca, with diffuse edema subcutaneous and mesenteric fat, bilateral pleural effusions, possible pulmonary edema, trace ascites. Densities within the gallbladder, probably reflecting tiny gallstones, although these are not identifiable on recent ultrasound. Gallbladder wall edema is probably a manifestation of anasarca, as recent hepatobiliary scan was negative for acute cholecystitis. Old ununited fracture deformities of the right pelvis. Bilateral chronic appearing hip dislocations Ultrasound of the abdomen : Gallbladder sludge. No definite stones. 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 Depression. Anemia. Rheumatoid arthritis. History of gastritis. PLAN: monitor pt off of Ab Rx - 10/11 SP Ertapenem #7/7 10/09 SP MIcafungin #10 10/02 SP Amikacin #10 09/30 SP Flagyl #8 09/25 sp Fluconazole #3 (held due to rise ALP) 09/23 SP Meropenem #5, PO Vanco #2 09/21 SP tamiflu #10 -f/u Repeat cultures -f/u Asp ag, fungitell, Cocci ab, fungal sp cx (called lab on 10/09 for f/u on these tests; was told they are still pending and they will call [facility] for an update). Monitor CBC.; Trend WBC Monitor BMP.; Trend LFTs Monitor chest x-ray -GI, heme onc f/u Subjective Allergies: Coded Allergies: No Known Allergies (Verified , 11/18/08) Subjective pt in ICU Objective Vital Signs Last 24 Hour Vital Signs Date Time Temp Pulse Resp B/P (MAP) Pulse Ox O2 Delivery O2 Flow Rate FiO2 10/11/17 18:14 91 131/58 10/11/17 18:00 92 25 131/58 99 Mechanical Ventilator 40 10/11/17 17:00 94 23 136/59 99 Mechanical Ventilator 40 10/11/17 16:52 88 18 40 10/11/17 16:00 98.8 82 21 136/65 24 Mechanical Ventilator 40 98.8 10/11/17 16:00 94 10/11/17 16:00 40 10/11/17 15:28 91 23 40 10/11/17 15:00 84 28 136/58 100 Mechanical Ventilator 40 10/11/17 14:00 85 23 136/58 100 Mechanical Ventilator 40 10/11/17 13:00 81 23 128/46 100 Mechanical Ventilator 40 10/11/17 12:49 76 23 40 10/11/17 12:00 98.8 80 22 122/47 100 Mechanical Ventilator 40 98.8 10/11/17 12:00 79 10/11/17 12:00 40 10/11/17 11:00 72 22 115/47 100 Mechanical Ventilator 40 10/11/17 10:57 75 20 40 10/11/17 10:03 77 121/52 10/11/17 10:00 74 22 115/47 100 Mechanical Ventilator 40 10/11/17 09:00 73 21 113/52 100 Mechanical Ventilator 40 10/11/17 08:55 85 23 40 10/11/17 08:00 77 10/11/17 08:00 98.5 72 22 115/54 97 Mechanical Ventilator 40 98.5 10/11/17 08:00 40 10/11/17 07:04 86 24 40 10/11/17 07:00 75 22 123/68 100 Mechanical Ventilator 40 10/11/17 06:00 73 25 113/56 99 Mechanical Ventilator 40 10/11/17 05:43 73 23 40 10/11/17 05:00 75 28 110/52 99 Mechanical Ventilator 40 10/11/17 04:00 72 10/11/17 04:00 98.5 72 34 112/71 97 Mechanical Ventilator 40 98.5 10/11/17 04:00 40 10/11/17 03:30 74 22 40 10/11/17 03:00 72 33 108/53 97 Mechanical Ventilator 40 10/11/17 02:00 80 29 108/47 97 Mechanical Ventilator 40 10/11/17 01:47 84 29 40 10/11/17 01:00 78 25 114/54 97 Mechanical Ventilator 40 10/11/17 00:00 98.1 86 27 143/69 97 Mechanical Ventilator 40 98.1 10/11/17 00:00 91 10/10/17 23:00 86 30 107/47 99 Mechanical Ventilator 40 10/10/17 22:57 92 28 40 10/10/17 22:00 97 27 131/52 99 Mechanical Ventilator 40 10/10/17 21:24 81 28 40 10/10/17 21:00 88 25 120/59 95 Mechanical Ventilator 40 10/10/17 20:00 40 10/10/17 20:00 77 10/10/17 20:00 98.4 83 29 133/75 97 Mechanical Ventilator 40 98.4 10/10/17 19:00 72 20 40 10/10/17 19:00 78 28 108/48 98 Mechanical Ventilator 40 Height (Feet): 5 Height (Inches): 5.00 Weight (Pounds): 110 HEENT: anicteric Respiratory/Chest: no respiratory distress Cardiovascular: regular rhythm Abdomen: non distended Microbiology Date/Time Source Procedure Growth Status 10/09/17 09:00 Sputum Expectorated Gram Stain - Final Complete 10/09/17 09:00 Sputum Expectorated Sputum Culture - Final NORMAL UPPER RESPIRATORY SUNDAY AT 48 ... Complete Laboratory Tests Test 10/11/17 03:40 White Blood Count 6.5 K/UL (4.8-10.8) Red Blood Count 2.72 M/UL (4.20-5.40) L Hemoglobin 8.7 G/DL (12.0-16.0) L Hematocrit 27.0 % (37.0-47.0) L Mean Corpuscular Volume 99 FL (80-99) Mean Corpuscular Hemoglobin 32.1 PG (27.0-31.0) H Mean Corpuscular Hemoglobin Concent 32.3 G/DL (32.0-36.0) Red Cell Distribution Width 16.9 % (11.6-14.8) H Platelet Count 146 K/UL (150-450) L Mean Platelet Volume 8.8 FL (6.5-10.1) Neutrophils (%) (Auto) 83.7 % (45.0-75.0) H Lymphocytes (%) (Auto) 7.1 % (20.0-45.0) L Monocytes (%) (Auto) 7.1 % (1.0-10.0) Eosinophils (%) (Auto) 1.4 % (0.0-3.0) Basophils (%) (Auto) 0.6 % (0.0-2.0) Prothrombin Time 10.8 SEC (9.30-11.50) Prothromb Time International Ratio 1.0 (0.9-1.1) Sodium Level 147 MMOL/L (136-145) H Potassium Level 3.1 MMOL/L (3.5-5.1) L Chloride Level 109 MMOL/L (98-107) H Carbon Dioxide Level 32 MMOL/L (21-32) Anion Gap 6 mmol/L (5-15) Blood Urea Nitrogen 30 mg/dL (7-18) H Creatinine 0.7 MG/DL (0.55-1.30) Estimat Glomerular Filtration Rate mL/min (>60) Glucose Level 77 MG/DL (74-106) Calcium Level 7.7 MG/DL (8.5-10.1) L Total Bilirubin 6.5 MG/DL (0.2-1.0) H Direct Bilirubin 5.5 MG/DL (0.0-0.3) H Aspartate Amino Transf (AST/SGOT) 121 U/L (15-37) H Alanine Aminotransferase (ALT/SGPT) 74 U/L (12-78) Alkaline Phosphatase 1386 U/L (46-116) H Total Protein 5.4 G/DL (6.4-8.2) L Albumin 1.7 G/DL (3.4-5.0) L Globulin 3.7 g/dL Albumin/Globulin Ratio 0.5 (1.0-2.7) L Current Medications Medications (Trade) Dose Ordered Sig/Hermes Route PRN Reason Start Time Stop Time Status Last Admin Dose Admin Acetaminophen (Tylenol) 650 mg Q6H PRN NG Fever/Headache/Mild Pain 10/11/17 08:30 11/10/17 08:29 Albuterol/ Ipratropium (Albuterol/ Ipratropium) 3 ml Q4H PRN HHN shortness of breath 10/11/17 08:30 10/16/17 08:29 Clonidine HCl (Catapres Tab) 0.1 mg Q4H PRN ORAL SBP>160 UNRELIEVED BY HYDRALAZ 09/16/17 16:45 10/15/17 16:59 Clotrimazole (Lotrimin) 1 applic EVERY 12 HOURS TOPIC 10/10/17 23:00 11/09/17 22:59 10/11/17 10:03 Dextrose (Dextrose 50%) STAT PRN IV Hypoglycemia 09/13/17 15:00 10/13/17 14:59 Diltiazem HCl (Cardizem) 30 mg BID NG 10/11/17 09:00 11/10/17 08:59 10/11/17 18:14 Furosemide (Lasix) 40 mg EVERY 12 HOURS IV 10/08/17 09:00 11/07/17 08:59 10/11/17 10:03 Insulin Aspart (NovoLOG) EVERY 6 HOURS SUBQ 09/17/17 12:00 10/17/17 11:59 10/11/17 18:18 Ketotifen Fumarate (Zatidor) 1 drop DAILY BOTH EYES 09/26/17 09:00 10/25/17 08:59 10/10/17 09:26 Pantoprazole (Protonix) 40 mg DAILY IVP 10/02/17 09:00 11/01/17 08:59 10/11/17 10:03 Polyethylene Glycol (Miralax) 17 gm BEDTIME ORAL 09/14/17 21:00 10/14/17 20:59 10/10/17 20:59 Edis Hunter MD Oct 11, 2017 18:55
[2017-10-11] MEDS: Miralax 17gm pkt ORAL SCH (21:44)
[2017-10-11] MEDS: Acetaminophen 650mg/20.3ml NG PRN (22:36)
[2017-10-12] VITALS (24 sets, daily range): BP systolic 90–153; BP diastolic 39–77
--- NOTE | 2017-10-12 01:03 | General Progress Note ---
Assessment/Plan Assessment/Plan #. Coagulopathy - potentially related to DIC early onset, will obtain hapto, inr repeat, fibrinogen, DIC panel --> administer FFP 4 units and vitamin k repeat prior to procedure --> DW pulm Dr. Parekh --> Likely related to infection versus other cause. --> Bili improved #. Pancytopenia --> WBC count and platelet counts improved from yesterday. --> Transfuse platelets if <20k --> Monitor and trend cbc daily. #. Anemia due to underlying chronic disease. Continue to closely monitor. --> Hemoglobin goal is above 7. --> Occult blood detected. Consider GI recs. --> Transfuse as necessary --> Blood transfusion not required unless symptomatic or hgb below goal. #. Leukocytosis likely related to underlying pneumonia infection. --> Resolved on antibiotic treatment. #. Thrombocytopenia, severe and progressive, acute onset, likely secondary to underlying infection, aspiration, hit was negative --> Duplex of the lower extremities is negative, therefore less likely HIT and other causes are more likely such as underlying infection. --> Platelets goal >20k, transfuse if necessary. --> On antibiotics as per ID #. Community-acquired pneumonia versus hospital-acquired. --> The patient on broad-spectrum antibiotics. --> Improved. --> Urine culture growing E. coli. Continue to closely monitor. #. Transaminitis. She has been seen by GI Service. Continue to closely monitor. #. Low-grade fever. Closely observe. #. Encephalopathy. Subjective Date patient seen: Oct 11, 2017 Constitutional: Denies: no symptoms, chills, diaphoresis, fever, malaise, weakness, other HEENT: Denies: no symptoms, eye pain, blurred vision, tearing, double vision, ear pain, ear discharge, nose pain, nose congestion, throat pain, throat swelling, mouth pain, mouth swelling, other Cardiovascular: Denies: no symptoms, chest pain, edema, irregular heart rate, lightheadedness, palpitations, syncope, other Respiratory: Denies: no symptoms, cough, orthopnea, shortness of breath, SOB with excertion, SOB at rest, sputum, stridor, wheezing, other Gastrointestinal/Abdominal: Denies: no symptoms, abdomen distended, abdominal pain, black stools, tarry stools, blood in stool, constipated, diarrhea, difficulty swallowing, nausea, poor appetite, poor fluid intake, rectal bleeding , vomiting, other Genitourinary: Denies: no symptoms, burning, discharge, frequency, flank pain, hematuria, incontinence, pain, urgency, other 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: Denies: no symptoms, anxiety, depressed, emotional problems, headache, numbness, paresthesia, pre-existing deficit, seizure, tingling, tremors, weakness, other Hematologic/Lymphatic: Reports: anemia Allergies: Coded Allergies: No Known Allergies (Verified , 11/18/08) Subjective Intubated in ICU. No fever. Objective Last 24 Hour Vital Signs Date Time Temp Pulse Resp B/P (MAP) Pulse Ox O2 Delivery O2 Flow Rate FiO2 10/12/17 00:00 40 10/11/17 23:23 82 19 40 10/11/17 23:06 99.5 10/11/17 23:00 79 21 96/41 98 Mechanical Ventilator 40 10/11/17 22:36 99.7 10/11/17 22:00 99.7 90 31 129/58 98 Mechanical Ventilator 40 99.7 10/11/17 21:00 91 18 127/62 98 Mechanical Ventilator 40 10/11/17 20:48 98 21 40 10/11/17 20:00 40 10/11/17 20:00 99.2 100 24 127/59 99 Mechanical Ventilator 40 99.2 10/11/17 20:00 79 10/11/17 19:36 98 20 40 10/11/17 19:00 96 24 125/58 98 Mechanical Ventilator 40 10/11/17 18:14 91 131/58 10/11/17 18:00 92 25 131/58 99 Mechanical Ventilator 40 10/11/17 17:00 94 23 136/59 99 Mechanical Ventilator 40 10/11/17 16:52 88 18 40 10/11/17 16:00 98.8 82 21 136/65 24 Mechanical Ventilator 40 98.8 10/11/17 16:00 94 10/11/17 16:00 40 10/11/17 15:28 91 23 40 10/11/17 15:00 84 28 136/58 100 Mechanical Ventilator 40 10/11/17 14:00 85 23 136/58 100 Mechanical Ventilator 40 10/11/17 13:00 81 23 128/46 100 Mechanical Ventilator 40 10/11/17 12:49 76 23 40 10/11/17 12:00 98.8 80 22 122/47 100 Mechanical Ventilator 40 98.8 10/11/17 12:00 79 10/11/17 12:00 40 10/11/17 11:00 72 22 115/47 100 Mechanical Ventilator 40 10/11/17 10:57 75 20 40 10/11/17 10:03 77 121/52 10/11/17 10:00 74 22 115/47 100 Mechanical Ventilator 40 10/11/17 09:00 73 21 113/52 100 Mechanical Ventilator 40 10/11/17 08:55 85 23 40 10/11/17 08:00 77 10/11/17 08:00 98.5 72 22 115/54 97 Mechanical Ventilator 40 98.5 10/11/17 08:00 40 10/11/17 07:04 86 24 40 10/11/17 07:00 75 22 123/68 100 Mechanical Ventilator 40 10/11/17 06:00 73 25 113/56 99 Mechanical Ventilator 40 10/11/17 05:43 73 23 40 10/11/17 05:00 75 28 110/52 99 Mechanical Ventilator 40 10/11/17 04:00 72 10/11/17 04:00 98.5 72 34 112/71 97 Mechanical Ventilator 40 98.5 10/11/17 04:00 40 10/11/17 03:30 74 22 40 10/11/17 03:00 72 33 108/53 97 Mechanical Ventilator 40 10/11/17 02:00 80 29 108/47 97 Mechanical Ventilator 40 10/11/17 01:47 84 29 40 10/11/17 01:00 78 25 114/54 97 Mechanical Ventilator 40 Intake and Output 10/11/17 10/12/17 19:00 07:00 Intake Total 1326.5 ml 250 ml Output Total 2895 ml 725 ml Balance -1568.5 ml -475 ml IV Total 676.5 ml Tube Feeding 600 ml 250 ml Blood Product 50 ml Output Urine Total 2895 ml 725 ml # Bowel Movements 3 1 Laboratory Tests 10/11/17 03:40: White Blood Count 6.5, Red Blood Count 2.72L, Hemoglobin 8.7L, Hematocrit 27.0L , Mean Corpuscular Volume 99, Mean Corpuscular Hemoglobin 32.1H, Mean Corpuscular Hemoglobin Concent 32.3, Red Cell Distribution Width 16.9H, Platelet Count 146L, Mean Platelet Volume 8.8, Neutrophils (%) (Auto) 83.7H, Lymphocytes (%) (Auto) 7.1L, Monocytes (%) (Auto) 7.1, Eosinophils (%) (Auto) 1.4, Basophils (%) (Auto) 0.6, Prothrombin Time 10.8, Prothromb Time International Ratio 1.0, Sodium Level 147H, Potassium Level 3.1L, Chloride Level 109H, Carbon Dioxide Level 32, Anion Gap 6, Blood Urea Nitrogen 30H, Creatinine 0.7, Estimat Glomerular Filtration Rate , Glucose Level 77, Calcium Level 7.7L, Total Bilirubin 6.5H, Direct Bilirubin 5.5H, Aspartate Amino Transf (AST/SGOT) 121H, Alanine Aminotransferase (ALT/SGPT) 74, Alkaline Phosphatase 1386H, Total Protein 5.4L, Albumin 1.7L, Globulin 3.7, Albumin/Globulin Ratio 0.5L Height (Feet): 5 Height (Inches): 5.00 Weight (Pounds): 110 General Appearance: lethargic Respiratory/Chest: decreased breath sounds Abdomen: soft Johnny Sinha MD Oct 12, 2017 01:03
[2017-10-12] MEDS: NovoLOG Insulin Flexpen SUBQ SCH ×4 (05:37→23:59)
[2017-10-12 08:10] LABS: EOSINOPHILS % (AUTO) 4.5 % (0.0-3.0); HEMATOCRIT 26.9 % (37.0-47.0); HEMOGLOBIN 8.7 G/DL (12.0-16.0); LYMPHOCYTES % (AUTO) 13.3 % (20.0-45.0); MEAN CORPUSCULAR VOLUME 99 FL (80-99); MONOCYTES % (AUTO) 7.1 % (1.0-10.0); NEUTROPHILS % (AUTO) 74.1 % (45.0-75.0); PLATELET COUNT 136 K/UL (150-450); RED BLOOD COUNT 2.72 M/UL (4.20-5.40); RED CELL DISTRIBUTION WIDTH 17.5 % (11.6-14.8); WHITE BLOOD COUNT 6.4 K/UL (4.8-10.8)
--- NOTE | 2017-10-12 08:13 | General Progress Note ---
Assessment/Plan Problem List: (1) Transaminitis ICD Codes: R74.0 - Nonspecific elevation of levels of transaminase and lactic acid dehydrogenase [LDH] SNOMED: 758469909, 692957096 (2) Anemia ICD Codes: D64.9 - Anemia, unspecified SNOMED: 411180820 (3) Diabetes mellitus ICD Codes: E11.9 - Type 2 diabetes mellitus without complications SNOMED: 14746174 (4) Respiratory failure ICD Codes: J96.90 - Respiratory failure, unspecified, unspecified whether with hypoxia or hypercapnia SNOMED: 283441817 Qualifiers: Qualified Codes: J96.00 - Acute respiratory failure, unspecified whether with hypoxia or hypercapnia Assessment/Plan TF tolerated fu LFTS possible trach pending for Friday repeat labs in am Subjective ROS Limited/Unobtainable: No Allergies: Coded Allergies: No Known Allergies (Verified , 11/18/08) Subjective intubated in the ICU Objective Last 24 Hour Vital Signs Date Time Temp Pulse Resp B/P (MAP) Pulse Ox O2 Delivery O2 Flow Rate FiO2 10/12/17 07:00 73 19 95/41 99 Mechanical Ventilator 40 10/12/17 06:51 78 20 40 10/12/17 06:00 87 18 111/47 99 Mechanical Ventilator 40 10/12/17 05:21 80 18 40 10/12/17 05:00 75 22 129/58 99 Mechanical Ventilator 40 10/12/17 04:00 75 10/12/17 04:00 98.9 78 20 121/61 97 Mechanical Ventilator 40 98.9 10/12/17 04:00 40 10/12/17 03:16 74 18 40 10/12/17 03:00 78 16 120/54 98 Mechanical Ventilator 40 10/12/17 02:00 76 18 120/53 97 Mechanical Ventilator 40 10/12/17 01:41 73 18 40 10/12/17 01:00 76 22 107/53 98 Mechanical Ventilator 40 10/12/17 00:00 77 39 110/52 97 Mechanical Ventilator 40 10/12/17 00:00 40 10/12/17 00:00 87 10/11/17 23:23 82 19 40 10/11/17 23:06 99.5 10/11/17 23:00 79 21 96/41 98 Mechanical Ventilator 40 10/11/17 22:36 99.7 10/11/17 22:00 99.7 90 31 129/58 98 Mechanical Ventilator 40 99.7 10/11/17 21:00 91 18 127/62 98 Mechanical Ventilator 40 10/11/17 20:48 98 21 40 10/11/17 20:00 40 10/11/17 20:00 99.2 100 24 127/59 99 Mechanical Ventilator 40 99.2 10/11/17 20:00 79 10/11/17 19:36 98 20 40 10/11/17 19:00 96 24 125/58 98 Mechanical Ventilator 40 10/11/17 18:14 91 131/58 10/11/17 18:00 92 25 131/58 99 Mechanical Ventilator 40 10/11/17 17:00 94 23 136/59 99 Mechanical Ventilator 40 10/11/17 16:52 88 18 40 10/11/17 16:00 98.8 82 21 136/65 24 Mechanical Ventilator 40 98.8 10/11/17 16:00 94 10/11/17 16:00 40 10/11/17 15:28 91 23 40 10/11/17 15:00 84 28 136/58 100 Mechanical Ventilator 40 10/11/17 14:00 85 23 136/58 100 Mechanical Ventilator 40 10/11/17 13:00 81 23 128/46 100 Mechanical Ventilator 40 10/11/17 12:49 76 23 40 10/11/17 12:00 98.8 80 22 122/47 100 Mechanical Ventilator 40 98.8 10/11/17 12:00 79 10/11/17 12:00 40 10/11/17 11:00 72 22 115/47 100 Mechanical Ventilator 40 10/11/17 10:57 75 20 40 10/11/17 10:03 77 121/52 10/11/17 10:00 74 22 115/47 100 Mechanical Ventilator 40 10/11/17 09:00 73 21 113/52 100 Mechanical Ventilator 40 10/11/17 08:55 85 23 40 Intake and Output 10/11/17 10/12/17 19:00 07:00 Intake Total 1326.5 ml 700 ml Output Total 2895 ml 1845 ml Balance -1568.5 ml -1145 ml Intake Free Water 100 ml IV Total 676.5 ml Tube Feeding 600 ml 600 ml Blood Product 50 ml Output Urine Total 2895 ml 1845 ml # Bowel Movements 3 2 Laboratory Tests 10/12/17 07:20: White Blood Count [Pending], Red Blood Count [Pending], Hemoglobin [Pending], Hematocrit [Pending], Mean Corpuscular Volume [Pending], Mean Corpuscular Hemoglobin [Pending], Mean Corpuscular Hemoglobin Concent [Pending], Red Cell Distribution Width [Pending], Platelet Count [Pending], Mean Platelet Volume [ Pending], Neutrophils (%) (Auto) [Pending], Lymphocytes (%) (Auto) [Pending], Monocytes (%) (Auto) [Pending], Eosinophils (%) (Auto) [Pending], Basophils (%) (Auto) [Pending], Sodium Level [Pending], Potassium Level [Pending], Chloride Level [Pending], Carbon Dioxide Level [Pending], Blood Urea Nitrogen [Pending], Creatinine [Pending], Estimat Glomerular Filtration Rate [Pending], Glucose Level [Pending], Calcium Level [Pending], Magnesium Level [Pending], Total Bilirubin [Pending], Aspartate Amino Transf (AST/SGOT) [Pending], Alanine Aminotransferase (ALT/SGPT) [Pending], Alkaline Phosphatase [Pending], Total Protein [Pending], Albumin [Pending], Globulin [Pending] Height (Feet): 5 Height (Inches): 5.00 Weight (Pounds): 93 General Appearance: mild distress EENT: normal ENT inspection Neck: supple Cardiovascular: normal rate Respiratory/Chest: decreased breath sounds Abdomen: normal bowel sounds, non tender, soft Extremities: non-tender KIT GONZALEZ Oct 12, 2017 08:13
[2017-10-12 08:40] LABS: ALANINE AMINOTRANSFERASE 75 U/L (12-78); ALBUMIN 1.6 G/DL (3.4-5.0); ALBUMIN/GLOBULIN RATIO 0.4 (1.0-2.7); ALKALINE PHOSPHATASE 1390 U/L (46-116); ANION GAP 1 mmol/L (5-15); ASPARTATE AMINO TRANSFERASE 109 U/L (15-37); BILIRUBIN,TOTAL 5.1 MG/DL (0.2-1.0); BLOOD UREA NITROGEN 31 mg/dL (7-18); CALCIUM 7.7 MG/DL (8.5-10.1); CARBON DIOXIDE 39 MMOL/L (21-32); CHLORIDE 107 MMOL/L (98-107); CREATININE 0.7 MG/DL (0.55-1.30); POTASSIUM 3.3 MMOL/L (3.5-5.1); SODIUM 147 MMOL/L (136-145)
[2017-10-12 08:57] LABS: BILIRUBIN,DIRECT 4.4 MG/DL (0.0-0.3)
[2017-10-12] MEDS: Pantoprazole Inj IVP SCH (09:16)
[2017-10-12] MEDS: Ketotifen Fumarate 0.035% 5ml BOTH EYES SCH (09:16)
[2017-10-12] MEDS: dilTIAZem HCl 30mg tab NG SCH ×2 (09:40→17:59)
[2017-10-12 10:24] LABS: INR 1.1 (0.9-1.1)
[2017-10-12] MEDS ORDERED: NS 275ml ONE (10:29)
--- NOTE | 2017-10-12 10:41 | Internal Med Progress Note ---
Subjective Date of Service: Oct 12, 2017 Physician Name Noah Bowens Attending Physician Jesus Barahona MD Current Medications Medications (Trade) Dose Ordered Sig/Hermes Route PRN Reason Start Time Stop Time Status Last Admin Dose Admin Acetaminophen (Tylenol) 650 mg Q6H PRN NG Fever/Headache/Mild Pain 10/11/17 08:30 11/10/17 08:29 10/11/17 22:36 Albuterol/ Ipratropium (Albuterol/ Ipratropium) 3 ml Q4H PRN HHN shortness of breath 10/11/17 08:30 10/16/17 08:29 Clonidine HCl (Catapres Tab) 0.1 mg Q4H PRN ORAL SBP>160 UNRELIEVED BY HYDRALAZ 09/16/17 16:45 10/15/17 16:59 Clotrimazole (Lotrimin) 1 applic EVERY 12 HOURS TOPIC 10/10/17 23:00 11/09/17 22:59 10/12/17 09:16 Dextrose (Dextrose 50%) STAT PRN IV Hypoglycemia 09/13/17 15:00 10/13/17 14:59 Diltiazem HCl (Cardizem) 30 mg BID NG 10/11/17 09:00 11/10/17 08:59 10/11/17 18:14 Furosemide (Lasix) 40 mg EVERY 12 HOURS IV 10/08/17 09:00 11/07/17 08:59 10/12/17 09:58 Insulin Aspart (NovoLOG) EVERY 6 HOURS SUBQ 09/17/17 12:00 10/17/17 11:59 10/12/17 05:37 Ketotifen Fumarate (Zatidor) 1 drop DAILY BOTH EYES 09/26/17 09:00 10/25/17 08:59 10/12/17 09:16 Pantoprazole (Protonix) 40 mg DAILY IVP 10/02/17 09:00 11/01/17 08:59 10/12/17 09:16 Polyethylene Glycol (Miralax) 17 gm BEDTIME ORAL 09/14/17 21:00 10/14/17 20:59 10/11/17 21:44 Allergies: Coded Allergies: No Known Allergies (Verified , 11/18/08) ROS Limited/Unobtainable: No Subjective 76 YO F admitted with Shortness of breath, now respiratory failure. Intubated and sedated. Cover for Internal Med-Dr. Barahona. ICU . S/P ERCP 10/08/17. Scheduled for Tracheostomy and bronchoscopy 10/13/17 Objective Last Vital Signs Date Time Temp Pulse Resp B/P (MAP) Pulse Ox O2 Delivery O2 Flow Rate FiO2 10/12/17 10:00 75 18 121/52 99 Mechanical Ventilator 40 10/12/17 08:00 98.3 98.3 10/04/17 04:00 Laboratory Tests Test 10/12/17 07:20 10/12/17 09:40 White Blood Count 6.4 K/UL (4.8-10.8) Red Blood Count 2.72 M/UL (4.20-5.40) L Hemoglobin 8.7 G/DL (12.0-16.0) L Hematocrit 26.9 % (37.0-47.0) L Mean Corpuscular Volume 99 FL (80-99) Mean Corpuscular Hemoglobin 32.1 PG (27.0-31.0) H Mean Corpuscular Hemoglobin Concent 32.4 G/DL (32.0-36.0) Red Cell Distribution Width 17.5 % (11.6-14.8) H Platelet Count 136 K/UL (150-450) L Mean Platelet Volume 8.5 FL (6.5-10.1) Neutrophils (%) (Auto) 74.1 % (45.0-75.0) Lymphocytes (%) (Auto) 13.3 % (20.0-45.0) L Monocytes (%) (Auto) 7.1 % (1.0-10.0) Eosinophils (%) (Auto) 4.5 % (0.0-3.0) H Basophils (%) (Auto) 1.0 % (0.0-2.0) Sodium Level 147 MMOL/L (136-145) H Potassium Level 3.3 MMOL/L (3.5-5.1) L Chloride Level 107 MMOL/L (98-107) Carbon Dioxide Level 39 MMOL/L (21-32) H Anion Gap 1 mmol/L (5-15) L Blood Urea Nitrogen 31 mg/dL (7-18) H Creatinine 0.7 MG/DL (0.55-1.30) Estimat Glomerular Filtration Rate mL/min (>60) Glucose Level 94 MG/DL (74-106) Calcium Level 7.7 MG/DL (8.5-10.1) L Magnesium Level 1.9 MG/DL (1.8-2.4) Total Bilirubin 5.1 MG/DL (0.2-1.0) H Direct Bilirubin 4.4 MG/DL (0.0-0.3) H Aspartate Amino Transf (AST/SGOT) 109 U/L (15-37) H Alanine Aminotransferase (ALT/SGPT) 75 U/L (12-78) Alkaline Phosphatase 1390 U/L (46-116) H Total Protein 5.4 G/DL (6.4-8.2) L Albumin 1.6 G/DL (3.4-5.0) L Globulin 3.8 g/dL Albumin/Globulin Ratio 0.4 (1.0-2.7) L Prothrombin Time 11.3 SEC (9.30-11.50) Prothromb Time International Ratio 1.1 (0.9-1.1) Activated Partial Thromboplast Time 28 SEC (23-33) Intake and Output 10/11/17 10/12/17 19:00 07:00 Intake Total 1326.5 ml 700 ml Output Total 2895 ml 1845 ml Balance -1568.5 ml -1145 ml Intake Free Water 100 ml IV Total 676.5 ml Tube Feeding 600 ml 600 ml Blood Product 50 ml Output Urine Total 2895 ml 1845 ml # Bowel Movements 3 2 Objective General Appearance: lethargic, thin EENT: normal ENT inspection Neck: non-tender, normal alignment, supple Cardiovascular: normal peripheral pulses, normal rate, regular rhythm, no gallop/murmur, no JVD Respiratory/Chest: Mechanical vent; respiratory distress, crackles/rales, rhonchi - bilaterally, expiratory wheezing Abdomen: normal bowel sounds, non tender, soft, no organomegaly, no mass Skin: normal pigmentation, warm/dry Assessment/Plan Problem List: (1) HTN (hypertension) Assessment & Plan: Currently hypotensive. (2) Arthritis, rheumatoid (3) Parkinsons disease (4) Aplastic anemia (5) GERD (gastroesophageal reflux disease) (6) Respiratory failure Assessment & Plan: Tracheostomy and broncholsopy scheduled Friday10/13/17. Cont vent per pulmonary (7) Pneumonia (8) Dyspnea (9) Sepsis Assessment & Plan: Blood culture neg. Continue Amikacin, micafungin and flagyl per ID (10) ARDS (adult respiratory distress syndrome) Assessment & Plan: See pulmonary note (11) UTI (urinary tract infection) Assessment & Plan: E.Coli. Continue abx per ID (12) Anemia Assessment & Plan: S/P Transfusion 2 units PRBC (13) Diabetes mellitus, type II Assessment & Plan: Continue novolog sliding scale (14) Leukocytosis Assessment & Plan: Worsening. See ID note. Start amikacin and fluconazole (15) Thrombocytopenia (16) Gallbladder sludge Assessment & Plan: s/P ERCP 10/01, 10/07/17 and 10/08/17 (17) Coagulopathy Assessment & Plan: S/P FFP and Vit K Status: not improved NOAH BOWENS Oct 12, 2017 10:41
--- NOTE | 2017-10-12 11:28 | Pulmonolgy Critical Care Note ---
Critical Care - Asmt/Plan Problems: (1) ARDS (adult respiratory distress syndrome) (2) Aspiration pneumonia (3) Anemia (4) Thrombocytopenia (5) Diabetes mellitus (6) Protein-calorie malnutrition, severe Respiratory: monitor respiratory rate, adjust FIO2, CXR Cardiac: continue to monitor HR/BP Renal: F/U I&O, keep IV fluid Infectious Disease: check cultures Gastrointestinal: continue feedings/current rate Endocrine: monitor blood sugar, continue sliding scale insulin Hematologic: monitor H/H, transfuse if hgb<8.5 Neurologic: PRN Ativan, keep patient comfortable Disposition: keep in ICU Notes Reviewed: cardio, renal Discussed with: nurses, consultants, showcase makermanager consumer - Objective Last 24 Hour Vital Signs Date Time Temp Pulse Resp B/P (MAP) Pulse Ox O2 Delivery O2 Flow Rate FiO2 10/12/17 11:05 75 20 40 10/12/17 10:00 75 18 121/52 99 Mechanical Ventilator 40 10/12/17 09:40 71 101/50 10/12/17 09:18 78 20 40 10/12/17 09:00 73 31 118/51 99 Mechanical Ventilator 40 10/12/17 08:00 40 10/12/17 08:00 81 10/12/17 08:00 98.3 71 37 90/39 99 Mechanical Ventilator 40 98.3 10/12/17 07:00 73 19 95/41 99 Mechanical Ventilator 40 10/12/17 06:51 78 20 40 10/12/17 06:00 87 18 111/47 99 Mechanical Ventilator 40 10/12/17 05:21 80 18 40 10/12/17 05:00 75 22 129/58 99 Mechanical Ventilator 40 10/12/17 04:00 75 10/12/17 04:00 98.9 78 20 121/61 97 Mechanical Ventilator 40 98.9 10/12/17 04:00 40 10/12/17 03:16 74 18 40 10/12/17 03:00 78 16 120/54 98 Mechanical Ventilator 40 10/12/17 02:00 76 18 120/53 97 Mechanical Ventilator 40 10/12/17 01:41 73 18 40 10/12/17 01:00 76 22 107/53 98 Mechanical Ventilator 40 10/12/17 00:00 77 39 110/52 97 Mechanical Ventilator 40 10/12/17 00:00 40 10/12/17 00:00 87 3/18 23:23 82 19 40 10/11/17 23:06 99.5 10/11/17 23:00 79 21 96/41 98 Mechanical Ventilator 40 10/11/17 22:36 99.7 10/11/17 22:00 99.7 90 31 129/58 98 Mechanical Ventilator 40 99.7 10/11/17 21:00 91 18 127/62 98 Mechanical Ventilator 40 10/11/17 20:48 98 21 40 10/11/17 20:00 40 10/11/17 20:00 99.2 100 24 127/59 99 Mechanical Ventilator 40 99.2 10/11/17 20:00 79 10/11/17 19:36 98 20 40 10/11/17 19:00 96 24 125/58 98 Mechanical Ventilator 40 10/11/17 18:14 91 131/58 10/11/17 18:00 92 25 131/58 99 Mechanical Ventilator 40 10/11/17 17:00 94 23 136/59 99 Mechanical Ventilator 40 10/11/17 16:52 88 18 40 10/11/17 16:00 98.8 82 21 136/65 24 Mechanical Ventilator 40 98.8 10/11/17 16:00 94 10/11/17 16:00 40 10/11/17 15:28 91 23 40 10/11/17 15:00 84 28 136/58 100 Mechanical Ventilator 40 10/11/17 14:00 85 23 136/58 100 Mechanical Ventilator 40 10/11/17 13:00 81 23 128/46 100 Mechanical Ventilator 40 10/11/17 12:49 76 23 40 10/11/17 12:00 98.8 80 22 122/47 100 Mechanical Ventilator 40 98.8 10/11/17 12:00 79 10/11/17 12:00 40 Status: awake Condition: critical HEENT: atraumatic Neck: full ROM Heart: HR/BP stable Abdomen: soft, feeding tube Extremities: edema Decubiti: location Accucheck: 171 Critical Care - Subjective ROS Limited/Unobtainable: Yes ICU Day: 31 Condition: critical FI02: 40 Vent Support Breath Rate: 18 Vent Support Mode: AC Vent Tidal Volume: 500 Sputum Amount: Small PEEP: 5.0 PIP: 50 Tube Feeding Amount: 50 I&O: Intake and Output 10/11/17 10/12/17 19:00 07:00 Intake Total 1326.5 ml 700 ml Output Total 2895 ml 1845 ml Balance -1568.5 ml -1145 ml Intake Free Water 100 ml IV Total 676.5 ml Tube Feeding 600 ml 600 ml Blood Product 50 ml Output Urine Total 2895 ml 1845 ml # Bowel Movements 3 2 CXR: minimal improvement ET-Tube: 7.5 ET Position: 20 Labs: Laboratory Tests Test 10/12/17 07:20 10/12/17 09:40 White Blood Count 6.4 K/UL (4.8-10.8) Red Blood Count 2.72 M/UL (4.20-5.40) L Hemoglobin 8.7 G/DL (12.0-16.0) L Hematocrit 26.9 % (37.0-47.0) L Mean Corpuscular Volume 99 FL (80-99) Mean Corpuscular Hemoglobin 32.1 PG (27.0-31.0) H Mean Corpuscular Hemoglobin Concent 32.4 G/DL (32.0-36.0) Red Cell Distribution Width 17.5 % (11.6-14.8) H Platelet Count 136 K/UL (150-450) L Mean Platelet Volume 8.5 FL (6.5-10.1) Neutrophils (%) (Auto) 74.1 % (45.0-75.0) Lymphocytes (%) (Auto) 13.3 % (20.0-45.0) L Monocytes (%) (Auto) 7.1 % (1.0-10.0) Eosinophils (%) (Auto) 4.5 % (0.0-3.0) H Basophils (%) (Auto) 1.0 % (0.0-2.0) Sodium Level 147 MMOL/L (136-145) H Potassium Level 3.3 MMOL/L (3.5-5.1) L Chloride Level 107 MMOL/L (98-107) Carbon Dioxide Level 39 MMOL/L (21-32) H Anion Gap 1 mmol/L (5-15) L Blood Urea Nitrogen 31 mg/dL (7-18) H Creatinine 0.7 MG/DL (0.55-1.30) Estimat Glomerular Filtration Rate mL/min (>60) Glucose Level 94 MG/DL (74-106) Calcium Level 7.7 MG/DL (8.5-10.1) L Magnesium Level 1.9 MG/DL (1.8-2.4) Total Bilirubin 5.1 MG/DL (0.2-1.0) H Direct Bilirubin 4.4 MG/DL (0.0-0.3) H Aspartate Amino Transf (AST/SGOT) 109 U/L (15-37) H Alanine Aminotransferase (ALT/SGPT) 75 U/L (12-78) Alkaline Phosphatase 1390 U/L (46-116) H Total Protein 5.4 G/DL (6.4-8.2) L Albumin 1.6 G/DL (3.4-5.0) L Globulin 3.8 g/dL Albumin/Globulin Ratio 0.4 (1.0-2.7) L Prothrombin Time 11.3 SEC (9.30-11.50) Prothromb Time International Ratio 1.1 (0.9-1.1) Activated Partial Thromboplast Time 28 SEC (23-33) Tayler Liu MD Oct 12, 2017 11:28
[2017-10-12] MEDS ORDERED: Tubing IV Secondary IV ONE ×2 (13:57→13:59)
--- NOTE | 2017-10-12 14:00 | Nephrology Progress Note ---
Assessment/Plan Problem List: (1) ARDS (adult respiratory distress syndrome) (2) Electrolyte imbalance (3) Thrombocytopenia Assessment (1) ARDS (adult respiratory distress syndrome) (2) Aspiration pneumonia (3) Protein-calorie malnutrition, severe (4) Diabetes mellitus (5) Anemia , aplastic by history (6) DM (7) UTI (8) Electrolyte imbalance (9) HTN (10) Depression (11) RA . Plan stable agree with diuresis and K supplement due trach ? in am k via NGT as needed water via NGT Adjust BP meds K and Phos supplement as needed Monitor renal parameters and urine output avoid nephrotoxics per orders discussed with RN Left ventricular ejection fraction estimated to be 55 %. Subjective ROS Limited/Unobtainable: Yes Objective Objective Last 24 Hour Vital Signs Date Time Temp Pulse Resp B/P (MAP) Pulse Ox O2 Delivery O2 Flow Rate FiO2 10/12/17 13:18 77 19 40 10/12/17 13:00 83 20 133/50 99 Mechanical Ventilator 40 10/12/17 12:00 77 10/12/17 12:00 98.1 76 23 107/77 99 Mechanical Ventilator 40 98.1 10/12/17 12:00 40 10/12/17 11:05 75 20 40 10/12/17 11:00 72 18 135/50 99 Mechanical Ventilator 40 10/12/17 10:00 75 18 121/52 99 Mechanical Ventilator 40 10/12/17 09:40 71 101/50 10/12/17 09:18 78 20 40 10/12/17 09:00 73 31 118/51 99 Mechanical Ventilator 40 10/12/17 08:00 40 10/12/17 08:00 81 10/12/17 08:00 98.3 71 37 90/39 99 Mechanical Ventilator 40 98.3 10/12/17 07:00 73 19 95/41 99 Mechanical Ventilator 40 10/12/17 06:51 78 20 40 10/12/17 06:00 87 18 111/47 99 Mechanical Ventilator 40 10/12/17 05:21 80 18 40 10/12/17 05:00 75 22 129/58 99 Mechanical Ventilator 40 10/12/17 04:00 75 10/12/17 04:00 98.9 78 20 121/61 97 Mechanical Ventilator 40 98.9 10/12/17 04:00 40 4/1/18 03:16 74 18 40 10/12/17 03:00 78 16 120/54 98 Mechanical Ventilator 40 10/12/17 02:00 76 18 120/53 97 Mechanical Ventilator 40 10/12/17 01:41 73 18 40 10/12/17 01:00 76 22 107/53 98 Mechanical Ventilator 40 10/12/17 00:00 77 39 110/52 97 Mechanical Ventilator 40 10/12/17 00:00 40 10/12/17 00:00 87 10/11/17 23:23 82 19 40 10/11/17 23:06 99.5 10/11/17 23:00 79 21 96/41 98 Mechanical Ventilator 40 10/11/17 22:36 99.7 10/11/17 22:00 99.7 90 31 129/58 98 Mechanical Ventilator 40 99.7 10/11/17 21:00 91 18 127/62 98 Mechanical Ventilator 40 10/11/17 20:48 98 21 40 10/11/17 20:00 40 10/11/17 20:00 99.2 100 24 127/59 99 Mechanical Ventilator 40 99.2 10/11/17 20:00 79 10/11/17 19:36 98 20 40 10/11/17 19:00 96 24 125/58 98 Mechanical Ventilator 40 10/11/17 18:14 91 131/58 10/11/17 18:00 92 25 131/58 99 Mechanical Ventilator 40 10/11/17 17:00 94 23 136/59 99 Mechanical Ventilator 40 10/11/17 16:52 88 18 40 10/11/17 16:00 98.8 82 21 136/65 24 Mechanical Ventilator 40 98.8 10/11/17 16:00 94 10/11/17 16:00 40 10/11/17 15:28 91 23 40 10/11/17 15:00 84 28 136/58 100 Mechanical Ventilator 40 10/11/17 14:00 85 23 136/58 100 Mechanical Ventilator 40 Intake and Output 10/11/17 10/12/17 19:00 07:00 Intake Total 1326.5 ml 700 ml Output Total 2895 ml 1845 ml Balance -1568.5 ml -1145 ml Intake Free Water 100 ml IV Total 676.5 ml Tube Feeding 600 ml 600 ml Blood Product 50 ml Output Urine Total 2895 ml 1845 ml # Bowel Movements 3 2 Laboratory Tests 10/12/17 07:20: White Blood Count 6.4, Red Blood Count 2.72L, Hemoglobin 8.7L, Hematocrit 26.9L , Mean Corpuscular Volume 99, Mean Corpuscular Hemoglobin 32.1H, Mean Corpuscular Hemoglobin Concent 32.4, Red Cell Distribution Width 17.5H, Platelet Count 136L, Mean Platelet Volume 8.5, Neutrophils (%) (Auto) 74.1, Lymphocytes (%) (Auto) 13.3L, Monocytes (%) (Auto) 7.1, Eosinophils (%) (Auto) 4.5H, Basophils (%) (Auto) 1.0, Sodium Level 147H, Potassium Level 3.3L, Chloride Level 107, Carbon Dioxide Level 39H, Anion Gap 1L, Blood Urea Nitrogen 31H, Creatinine 0.7, Estimat Glomerular Filtration Rate , Glucose Level 94, Calcium Level 7.7L, Magnesium Level 1.9, Total Bilirubin 5.1H, Direct Bilirubin 4.4H, Aspartate Amino Transf (AST/SGOT) 109H, Alanine Aminotransferase (ALT/SGPT ) 75, Alkaline Phosphatase 1390H, Total Protein 5.4L, Albumin 1.6L, Globulin 3.8 , Albumin/Globulin Ratio 0.4L 10/12/17 09:40: Prothrombin Time 11.3, Prothromb Time International Ratio 1.1, Activated Partial Thromboplast Time 28 Height (Feet): 5 Height (Inches): 5.00 Weight (Pounds): 93 General Appearance: no apparent distress Objective no change YAEL HANSEN Oct 12, 2017 14:00
--- NOTE | 2017-10-12 17:16 | Diagnostic Imaging Report ---
. Indication: Reason For Exam: SOB Technique: XRAY Chest 1v. Comparison: 03/10/2018 Findings: The heart remains normal in size. Diffuse bilateral mixed alveolar and interstitial infiltrates remain. Endotracheal tube remains. A nasogastric tube has been placed with the tip in the stomach. Impression: Placement of nasogastric tube with the tip in the stomach. Endotracheal tube remains. No other significant change from prior examination.
[2017-10-12] MEDS: Miralax 17gm pkt ORAL SCH (21:00)
--- NOTE | 2017-10-12 23:26 | General Progress Note ---
Assessment/Plan Assessment/Plan #. Coagulopathy - potentially related to DIC early onset, review hapto, inr repeat, fibrinogen, DIC panel --> administer FFP 4 units and vitamin k repeat prior to procedure --> DW pulm Dr. Parekh --> Likely related to infection versus other cause. On antibiotics. #. Pancytopenia --> WBC count and platelet counts improved from yesterday. --> Transfuse platelets if <20k --> Monitor and trend cbc daily. #. Anemia due to underlying chronic disease. Continue to closely monitor. --> Hemoglobin goal is above 7. --> Occult blood detected. Consider GI recs. --> Transfuse as necessary --> Blood transfusion not required unless symptomatic or hgb below goal. #. Leukocytosis likely related to underlying pneumonia infection. --> Resolved on antibiotic treatment. #. Thrombocytopenia, severe and progressive, acute onset, likely secondary to underlying infection, aspiration, hit was negative --> Duplex of the lower extremities is negative, therefore less likely HIT and other causes are more likely such as underlying infection. --> Platelets goal >20k, transfuse if necessary. --> On antibiotics as per ID --> Platelet count has been downtrending, monitor closely. #. Community-acquired pneumonia versus hospital-acquired. --> The patient on broad-spectrum antibiotics. --> Improved. --> Urine culture growing E. coli. Continue to closely monitor. #. Transaminitis. She has been seen by GI Service. Continue to closely monitor. #. Low-grade fever. Closely observe. #. Encephalopathy. Subjective Date patient seen: Oct 12, 2017 Constitutional: Denies: no symptoms, chills, diaphoresis, fever, malaise, weakness, other HEENT: Denies: no symptoms, eye pain, blurred vision, tearing, double vision, ear pain, ear discharge, nose pain, nose congestion, throat pain, throat swelling, mouth pain, mouth swelling, other Cardiovascular: Denies: no symptoms, chest pain, edema, irregular heart rate, lightheadedness, palpitations, syncope, other Respiratory: Denies: no symptoms, cough, orthopnea, shortness of breath, SOB with excertion, SOB at rest, sputum, stridor, wheezing, other Gastrointestinal/Abdominal: Denies: no symptoms, abdomen distended, abdominal pain, black stools, tarry stools, blood in stool, constipated, diarrhea, difficulty swallowing, nausea, poor appetite, poor fluid intake, rectal bleeding , vomiting, other Genitourinary: Denies: no symptoms, burning, discharge, frequency, flank pain, hematuria, incontinence, pain, urgency, other 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: Denies: no symptoms, anxiety, depressed, emotional problems, headache, numbness, paresthesia, pre-existing deficit, seizure, tingling, tremors, weakness, other Hematologic/Lymphatic: Reports: anemia Allergies: Coded Allergies: No Known Allergies (Verified , 11/18/08) Subjective Intubated in ICU. On antibiotics. No fever. Objective Last 24 Hour Vital Signs Date Time Temp Pulse Resp B/P (MAP) Pulse Ox O2 Delivery O2 Flow Rate FiO2 10/12/17 22:00 71 19 131/51 100 Mechanical Ventilator 40 10/12/17 21:12 77 22 40 10/12/17 21:00 73 21 112/66 100 Mechanical Ventilator 40 10/12/17 20:00 40 10/12/17 20:00 71 10/12/17 20:00 98.5 73 18 119/47 100 Mechanical Ventilator 40 98.5 10/12/17 19:51 73 22 Mechanical Ventilator 40 10/12/17 19:00 73 22 110/49 100 Mechanical Ventilator 40 10/12/17 18:45 85 30 40 10/12/17 18:00 85 30 153/57 100 Mechanical Ventilator 40 10/12/17 17:59 69 147/65 10/12/17 17:23 75 18 40 10/12/17 17:00 70 18 138/59 100 Mechanical Ventilator 40 10/12/17 16:00 98.2 72 22 103/57 100 Mechanical Ventilator 40 98.2 10/12/17 16:00 40 10/12/17 16:00 79 10/12/17 15:11 73 19 40 10/12/17 15:00 76 26 111/48 100 Mechanical Ventilator 40 10/12/17 14:00 74 22 112/49 100 Mechanical Ventilator 40 10/12/17 13:18 77 19 40 10/12/17 13:00 83 20 133/50 99 Mechanical Ventilator 40 10/12/17 12:00 77 10/12/17 12:00 98.1 76 23 107/77 99 Mechanical Ventilator 40 98.1 10/12/17 12:00 40 10/12/17 11:05 75 20 40 10/12/17 11:00 72 18 135/50 99 Mechanical Ventilator 40 10/12/17 10:00 75 18 121/52 99 Mechanical Ventilator 40 10/12/17 09:40 71 101/50 10/12/17 09:18 78 20 40 10/12/17 09:00 73 31 118/51 99 Mechanical Ventilator 40 10/12/17 08:00 40 10/12/17 08:00 81 10/12/17 08:00 98.3 71 37 90/39 99 Mechanical Ventilator 40 98.3 10/12/17 07:00 73 19 95/41 99 Mechanical Ventilator 40 10/12/17 06:51 78 20 40 10/12/17 06:00 87 18 111/47 99 Mechanical Ventilator 40 10/12/17 05:21 80 18 40 10/12/17 05:00 75 22 129/58 99 Mechanical Ventilator 40 10/12/17 04:00 75 10/12/17 04:00 98.9 78 20 121/61 97 Mechanical Ventilator 40 98.9 10/12/17 04:00 40 10/12/17 03:16 74 18 40 10/12/17 03:00 78 16 120/54 98 Mechanical Ventilator 40 10/12/17 02:00 76 18 120/53 97 Mechanical Ventilator 40 10/12/17 01:41 73 18 40 10/12/17 01:00 76 22 107/53 98 Mechanical Ventilator 40 10/12/17 00:00 77 39 110/52 97 Mechanical Ventilator 40 10/12/17 00:00 40 10/12/17 00:00 87 10/11/17 23:23 82 19 40 Intake and Output 10/11/17 10/12/17 19:00 07:00 Intake Total 1326.5 ml 700 ml Output Total 2895 ml 1845 ml Balance -1568.5 ml -1145 ml Intake Free Water 100 ml IV Total 676.5 ml Tube Feeding 600 ml 600 ml Blood Product 50 ml Output Urine Total 2895 ml 1845 ml # Bowel Movements 3 2 Laboratory Tests 10/12/17 07:20: White Blood Count 6.4, Red Blood Count 2.72L, Hemoglobin 8.7L, Hematocrit 26.9L , Mean Corpuscular Volume 99, Mean Corpuscular Hemoglobin 32.1H, Mean Corpuscular Hemoglobin Concent 32.4, Red Cell Distribution Width 17.5H, Platelet Count 136L, Mean Platelet Volume 8.5, Neutrophils (%) (Auto) 74.1, Lymphocytes (%) (Auto) 13.3L, Monocytes (%) (Auto) 7.1, Eosinophils (%) (Auto) 4.5H, Basophils (%) (Auto) 1.0, Sodium Level 147H, Potassium Level 3.3L, Chloride Level 107, Carbon Dioxide Level 39H, Anion Gap 1L, Blood Urea Nitrogen 31H, Creatinine 0.7, Estimat Glomerular Filtration Rate , Glucose Level 94, Calcium Level 7.7L, Magnesium Level 1.9, Total Bilirubin 5.1H, Direct Bilirubin 4.4H, Aspartate Amino Transf (AST/SGOT) 109H, Alanine Aminotransferase (ALT/SGPT ) 75, Alkaline Phosphatase 1390H, Total Protein 5.4L, Albumin 1.6L, Globulin 3.8 , Albumin/Globulin Ratio 0.4L 10/12/17 09:40: Prothrombin Time 11.3, Prothromb Time International Ratio 1.1, Activated Partial Thromboplast Time 28 Height (Feet): 5 Height (Inches): 5.00 Weight (Pounds): 93 General Appearance: lethargic Respiratory/Chest: decreased breath sounds Abdomen: soft Johnny Sinha MD Oct 12, 2017 23:26
[2017-10-13] VITALS (23 sets, daily range): BP systolic 100–160; BP diastolic 44–83
[2017-10-13 04:51] LABS: BASOPHILS % (AUTO) 0.4 % (0.0-2.0); HEMATOCRIT 27.2 % (37.0-47.0); HEMOGLOBIN 8.6 G/DL (12.0-16.0); LYMPHOCYTES % (AUTO) 15.7 % (20.0-45.0); MEAN CORPUSCULAR VOLUME 98 FL (80-99); NEUTROPHILS % (AUTO) 73.9 % (45.0-75.0); PLATELET COUNT 170 K/UL (150-450); RED BLOOD COUNT 2.78 M/UL (4.20-5.40); RED CELL DISTRIBUTION WIDTH 17.2 % (11.6-14.8); WHITE BLOOD COUNT 9.1 K/UL (4.8-10.8)
[2017-10-13 05:33] LABS: ALANINE AMINOTRANSFERASE 71 U/L (12-78); ALBUMIN 1.6 G/DL (3.4-5.0); ALBUMIN/GLOBULIN RATIO 0.4 (1.0-2.7); ALKALINE PHOSPHATASE 1450 U/L (46-116); ASPARTATE AMINO TRANSFERASE 95 U/L (15-37); BILIRUBIN,TOTAL 4.4 MG/DL (0.2-1.0); BLOOD UREA NITROGEN 31 mg/dL (7-18); CARBON DIOXIDE 38 MMOL/L (21-32); CREATININE 0.7 MG/DL (0.55-1.30)
[2017-10-13 05:40] LABS: BILIRUBIN,DIRECT 3.5 MG/DL (0.0-0.3)
[2017-10-13] MEDS: NovoLOG Insulin Flexpen SUBQ SCH ×3 (05:56→18:41)
[2017-10-13 07:20] LABS: CHLORIDE 104 MMOL/L (98-107); SODIUM 145 MMOL/L (136-145)
[2017-10-13 07:21] LABS: ANION GAP 3 mmol/L (5-15)
[2017-10-13] MEDS: dilTIAZem HCl 30mg tab NG SCH ×2 (08:18→18:38)
[2017-10-13] MEDS: Pantoprazole Inj IVP SCH (08:18)
[2017-10-13] MEDS: Ketotifen Fumarate 0.035% 5ml BOTH EYES SCH (08:28)
[2017-10-13] MEDS ORDERED: Lidocaine 1% 10mg/ml/Epi 0.005mg/ml 30ml vial INJ ONE (09:20)
--- NOTE | 2017-10-13 09:41 | Pre-Procedure Note/Attestation ---
Pre-Procedure Note/Attestation Complete Prior to Procedure Planned Procedure: not applicable Procedure Narrative: tracheostomy Indications for Procedure Pre-Operative Diagnosis: sepsis, respiratory distress requiring prolonged ventilatory support Attestation I attest that I discussed the nature of the procedure; its benefits; risks and complications; and alternatives (and the risks and benefits of such alternatives ), prior to the procedure, with the patient (or the patient's legal customer service representative). I attest that, if there was a reasonable possibility of needing a blood transfusion, the patient (or the patient's legal customer service representative) was given the [facility] standardized written summary, pursuant to the Tristan Linette Blood Safety Act ([place] Health and Safety Code # 1645, as amended). I attest that I re-evaluated the patient just prior to the surgery and that there has been no change in the patient's H&P, except as documented below: Adryan Echevarria Oct 13, 2017 09:41
--- NOTE | 2017-10-13 09:57 | Nephrology Progress Note ---
Assessment/Plan Problem List: (1) ARDS (adult respiratory distress syndrome) (2) Electrolyte imbalance (3) Thrombocytopenia Assessment (1) ARDS (adult respiratory distress syndrome) (2) Aspiration pneumonia (3) Protein-calorie malnutrition, severe (4) Diabetes mellitus (5) Anemia , aplastic by history (6) DM (7) UTI (8) Electrolyte imbalance (9) HTN (10) Depression (11) RA . Plan stable agree with diuresis and K supplement due trach ? in am k via NGT as needed water via NGT Adjust BP meds K and Phos supplement as needed Monitor renal parameters and urine output avoid nephrotoxics per orders discussed with RN Left ventricular ejection fraction estimated to be 55 %. Subjective ROS Limited/Unobtainable: Yes Objective Objective Last 24 Hour Vital Signs Date Time Temp Pulse Resp B/P (MAP) Pulse Ox O2 Delivery O2 Flow Rate FiO2 10/13/17 09:07 68 19 40 10/13/17 09:00 71 20 112/49 99 Mechanical Ventilator 40 10/13/17 08:18 74 130/72 10/13/17 08:00 98.2 74 20 128/55 100 Mechanical Ventilator 40 98.2 10/13/17 08:00 40 10/13/17 08:00 72 10/13/17 07:13 75 20 40 10/13/17 07:00 71 25 133/56 100 Mechanical Ventilator 40 10/13/17 06:00 72 23 131/61 100 Mechanical Ventilator 40 10/13/17 05:02 84 16 40 10/13/17 05:00 75 18 135/60 99 Mechanical Ventilator 40 10/13/17 04:00 83 22 118/66 97 Mechanical Ventilator 40 10/13/17 04:00 84 10/13/17 04:00 40 10/13/17 03:15 84 16 40 10/13/17 03:00 79 22 123/50 97 Mechanical Ventilator 40 10/13/17 02:00 80 16 101/44 99 Mechanical Ventilator 40 10/13/17 01:37 79 18 40 10/13/17 01:00 73 18 126/49 100 Mechanical Ventilator 40 10/13/17 00:00 77 10/13/17 00:00 40 10/13/17 00:00 98.7 78 16 124/51 100 Mechanical Ventilator 40 98.7 10/12/17 23:16 78 19 40 10/12/17 23:00 70 18 138/59 100 Mechanical Ventilator 40 10/12/17 22:00 71 19 131/51 100 Mechanical Ventilator 40 10/12/17 21:12 77 22 40 10/12/17 21:00 73 21 112/66 100 Mechanical Ventilator 40 10/12/17 20:00 40 10/12/17 20:00 71 10/12/17 20:00 98.5 73 18 119/47 100 Mechanical Ventilator 40 98.5 10/12/17 19:51 73 22 Mechanical Ventilator 40 10/12/17 19:00 73 22 110/49 100 Mechanical Ventilator 40 10/12/17 18:45 85 30 40 10/12/17 18:00 85 30 153/57 100 Mechanical Ventilator 40 10/12/17 17:59 69 147/65 10/12/17 17:23 75 18 40 10/12/17 17:00 70 18 138/59 100 Mechanical Ventilator 40 10/12/17 16:00 98.2 72 22 103/57 100 Mechanical Ventilator 40 98.2 10/12/17 16:00 40 10/12/17 16:00 79 10/12/17 15:11 73 19 40 10/12/17 15:00 76 26 111/48 100 Mechanical Ventilator 40 10/12/17 14:00 74 22 112/49 100 Mechanical Ventilator 40 10/12/17 13:18 77 19 40 10/12/17 13:00 83 20 133/50 99 Mechanical Ventilator 40 10/12/17 12:00 77 10/12/17 12:00 98.1 76 23 107/77 99 Mechanical Ventilator 40 98.1 10/12/17 12:00 40 10/12/17 11:05 75 20 40 10/12/17 11:00 72 18 135/50 99 Mechanical Ventilator 40 10/12/17 10:00 75 18 121/52 99 Mechanical Ventilator 40 Intake and Output 10/12/17 10/13/17 19:00 07:00 Intake Total 800 ml 600 ml Output Total 1770 ml 875 ml Balance -970 ml -275 ml Intake Free Water 100 ml Tube Feeding 600 ml 500 ml Other 200 ml Output Urine Total 1770 ml 875 ml # Bowel Movements 8 2 Laboratory Tests 10/13/17 04:15: White Blood Count 9.1, Red Blood Count 2.78L, Hemoglobin 8.6L, Hematocrit 27.2L , Mean Corpuscular Volume 98, Mean Corpuscular Hemoglobin 31.0, Mean Corpuscular Hemoglobin Concent 31.7L, Red Cell Distribution Width 17.2H, Platelet Count 170, Mean Platelet Volume 8.5, Neutrophils (%) (Auto) 73.9, Lymphocytes (%) (Auto) 15.7L, Monocytes (%) (Auto) 6.0, Eosinophils (%) (Auto) 4.0H, Basophils (%) (Auto) 0.4, Sodium Level 145, Potassium Level 4.0, Chloride Level 104, Carbon Dioxide Level 38H, Anion Gap 3L, Blood Urea Nitrogen 31H, Creatinine 0.7, Estimat Glomerular Filtration Rate , Glucose Level 135H, Calcium Level 8.0L, Phosphorus Level 4.0, Magnesium Level 1.8, Total Bilirubin 4.4H, Direct Bilirubin 3.5H, Aspartate Amino Transf (AST/SGOT) 95H, Alanine Aminotransferase (ALT/SGPT) 71, Alkaline Phosphatase 1450H, Total Protein 5.7L, Albumin 1.6L, Globulin 4.1, Albumin/Globulin Ratio 0.4L 10/13/17 09:10: Arterial Blood pH 7.630*H, Arterial Blood Partial Pressure CO2 30.4L, Arterial Blood Partial Pressure O2 91.2, Arterial Blood HCO3 31.4H, Arterial Blood Oxygen Saturation 97.1, Arterial Blood Base Excess 10.0, Luis A Test Positive Height (Feet): 5 Height (Inches): 4.00 Weight (Pounds): 93 General Appearance: no apparent distress Objective no change YAEL HANSEN Oct 13, 2017 09:57
[2017-10-13] MEDS ORDERED: Zemuron 50mg/5ml Inj IV ONE (10:00)
[2017-10-13] MEDS ORDERED: fentaNYL 100 mcg/2 mL IV ONE (10:00)
[2017-10-13] MEDS ORDERED: Propofol 200mg/20ml IV ONE (10:00)
--- NOTE | 2017-10-13 10:04 | Pulmonolgy Critical Care Note ---
Critical Care - Asmt/Plan Problems: (1) ARDS (adult respiratory distress syndrome) (2) Aspiration pneumonia (3) Anemia (4) Thrombocytopenia (5) Diabetes mellitus (6) Protein-calorie malnutrition, severe Respiratory: monitor respiratory rate, adjust FIO2, CXR, other - trach and bronchoscopy Cardiac: continue to monitor HR/BP Renal: F/U I&O, keep IV fluid Infectious Disease: check cultures Gastrointestinal: continue feedings/current rate, abdominal imaging Endocrine: monitor blood sugar, continue sliding scale insulin Hematologic: monitor H/H, transfuse if hgb<8.5 Neurologic: PRN Ativan, keep patient comfortable Prophylaxis: Protonix, Heparin Notes Reviewed: inspector hairspring truing Discussed with: nurses, consultants, case repairermanager commission - Objective Last 24 Hour Vital Signs Date Time Temp Pulse Resp B/P (MAP) Pulse Ox O2 Delivery O2 Flow Rate FiO2 10/13/17 09:07 68 19 40 10/13/17 09:00 71 20 112/49 99 Mechanical Ventilator 40 10/13/17 08:18 74 130/72 10/13/17 08:00 98.2 74 20 128/55 100 Mechanical Ventilator 40 98.2 10/13/17 08:00 40 10/13/17 08:00 72 10/13/17 07:13 75 20 40 10/13/17 07:00 71 25 133/56 100 Mechanical Ventilator 40 10/13/17 06:00 72 23 131/61 100 Mechanical Ventilator 40 10/13/17 05:02 84 16 40 10/13/17 05:00 75 18 135/60 99 Mechanical Ventilator 40 10/13/17 04:00 83 22 118/66 97 Mechanical Ventilator 40 10/13/17 04:00 84 10/13/17 04:00 40 10/13/17 03:15 84 16 40 10/13/17 03:00 79 22 123/50 97 Mechanical Ventilator 40 10/13/17 02:00 80 16 101/44 99 Mechanical Ventilator 40 10/13/17 01:37 79 18 40 10/13/17 01:00 73 18 126/49 100 Mechanical Ventilator 40 10/13/17 00:00 77 10/13/17 00:00 40 10/13/17 00:00 98.7 78 16 124/51 100 Mechanical Ventilator 40 98.7 10/12/17 23:16 78 19 40 10/12/17 23:00 70 18 138/59 100 Mechanical Ventilator 40 10/12/17 22:00 71 19 131/51 100 Mechanical Ventilator 40 10/12/17 21:12 77 22 40 10/12/17 21:00 73 21 112/66 100 Mechanical Ventilator 40 10/12/17 20:00 40 10/12/17 20:00 71 10/12/17 20:00 98.5 73 18 119/47 100 Mechanical Ventilator 40 98.5 10/12/17 19:51 73 22 Mechanical Ventilator 40 10/12/17 19:00 73 22 110/49 100 Mechanical Ventilator 40 10/12/17 18:45 85 30 40 10/12/17 18:00 85 30 153/57 100 Mechanical Ventilator 40 10/12/17 17:59 69 147/65 10/12/17 17:23 75 18 40 10/12/17 17:00 70 18 138/59 100 Mechanical Ventilator 40 10/12/17 16:00 98.2 72 22 103/57 100 Mechanical Ventilator 40 98.2 10/12/17 16:00 40 10/12/17 16:00 79 10/12/17 15:11 73 19 40 10/12/17 15:00 76 26 111/48 100 Mechanical Ventilator 40 10/12/17 14:00 74 22 112/49 100 Mechanical Ventilator 40 10/12/17 13:18 77 19 40 10/12/17 13:00 83 20 133/50 99 Mechanical Ventilator 40 10/12/17 12:00 77 10/12/17 12:00 98.1 76 23 107/77 99 Mechanical Ventilator 40 98.1 10/12/17 12:00 40 10/12/17 11:05 75 20 40 10/12/17 11:00 72 18 135/50 99 Mechanical Ventilator 40 Status: awake Condition: critical, improving HEENT: atraumatic, normocephalic Heart: HR/BP stable Abdomen: soft, active bowel sounds, feeding tube Extremities: edema Decubiti: location Accucheck: 167 Critical Care - Subjective ROS Limited/Unobtainable: Yes ICU Day: 32 Intubation Day: 32 Condition: critical EKG Rhythm: Sinus Rhythm FI02: 40 Vent Support Breath Rate: 18 Vent Support Mode: AC Vent Tidal Volume: 500 Sputum Amount: Small PEEP: 5.0 PIP: 47 Tube Feeding Amount: 50 I&O: Intake and Output 10/12/17 10/13/17 19:00 07:00 Intake Total 800 ml 600 ml Output Total 1770 ml 875 ml Balance -970 ml -275 ml Intake Free Water 100 ml Tube Feeding 600 ml 500 ml Other 200 ml Output Urine Total 1770 ml 875 ml # Bowel Movements 8 2 CXR: diffuse interstitial infiltrate ET-Tube: 7.5 ET Position: 21 Labs: Laboratory Tests Test 10/13/17 04:15 10/13/17 09:10 White Blood Count 9.1 K/UL (4.8-10.8) Red Blood Count 2.78 M/UL (4.20-5.40) L Hemoglobin 8.6 G/DL (12.0-16.0) L Hematocrit 27.2 % (37.0-47.0) L Mean Corpuscular Volume 98 FL (80-99) Mean Corpuscular Hemoglobin 31.0 PG (27.0-31.0) Mean Corpuscular Hemoglobin Concent 31.7 G/DL (32.0-36.0) L Red Cell Distribution Width 17.2 % (11.6-14.8) H Platelet Count 170 K/UL (150-450) Mean Platelet Volume 8.5 FL (6.5-10.1) Neutrophils (%) (Auto) 73.9 % (45.0-75.0) Lymphocytes (%) (Auto) 15.7 % (20.0-45.0) L Monocytes (%) (Auto) 6.0 % (1.0-10.0) Eosinophils (%) (Auto) 4.0 % (0.0-3.0) H Basophils (%) (Auto) 0.4 % (0.0-2.0) Sodium Level 145 MMOL/L (136-145) Potassium Level 4.0 MMOL/L (3.5-5.1) Chloride Level 104 MMOL/L (98-107) Carbon Dioxide Level 38 MMOL/L (21-32) H Anion Gap 3 mmol/L (5-15) L Blood Urea Nitrogen 31 mg/dL (7-18) H Creatinine 0.7 MG/DL (0.55-1.30) Estimat Glomerular Filtration Rate mL/min (>60) Glucose Level 135 MG/DL (74-106) H Calcium Level 8.0 MG/DL (8.5-10.1) L Phosphorus Level 4.0 MG/DL (2.5-4.9) Magnesium Level 1.8 MG/DL (1.8-2.4) Total Bilirubin 4.4 MG/DL (0.2-1.0) H Direct Bilirubin 3.5 MG/DL (0.0-0.3) H Aspartate Amino Transf (AST/SGOT) 95 U/L (15-37) H Alanine Aminotransferase (ALT/SGPT) 71 U/L (12-78) Alkaline Phosphatase 1450 U/L (46-116) H Total Protein 5.7 G/DL (6.4-8.2) L Albumin 1.6 G/DL (3.4-5.0) L Globulin 4.1 g/dL Albumin/Globulin Ratio 0.4 (1.0-2.7) L Arterial Blood pH 7.630 (7.350-7.450) Arterial Blood Partial Pressure CO2 30.4 mmHg (35.0-45.0) L Arterial Blood Partial Pressure O2 91.2 mmHg (75.0-100.0) Arterial Blood HCO3 31.4 mmol/L (22.0-26.0) H Arterial Blood Oxygen Saturation 97.1 % (92.0-98.0) Arterial Blood Base Excess 10.0 Luis A Test Positive Tayler Liu MD Oct 13, 2017 10:04
--- NOTE | 2017-10-13 10:38 | Diagnostic Imaging Report ---
Indication: Dyspnea Technique: One view of the chest Comparison: 10/12/2017 Findings: Allowing for technical differences, stable or perhaps slightly improved bilateral diffuse interstitial and airspace disease. Single satisfactory positions of endotracheal and nasogastric tubes. Impression: Possible slight improvement of bilateral interstitial airspace disease, over one day.
--- NOTE | 2017-10-13 11:08 | Operative Note - PDOC ---
Operative Note Operative Note Date of Operation/Procedure: Oct 13, 2017 Chief Complaint: DICT # [id number] Pre-op Diagnosis: VDRF Procedure: Fiberoptic bronchoscopy, bronchoalveolar lavage, upper airway endoscopy for percutaneous tracheostomy, bronchoscopy through tracheostomy Post-op Diagnosis: VDRF S/P tracheostomy Post-op Diagnosis: same as pre-op Operative Findings: consistent w/pre-op dx studies Surgeon: (bronchoscopist) Miguel Angel Parekh MD Additional Surgeons: (tracheotomy) JEMAL Echevarria MD Anesthesiologist: carlee Anesthesia: general Specimen: yes - RUL BAL Complications: none Condition: stable Estimated Blood Loss: none Implant(s) used?: No Description of Procedure OP report dictated MIGUEL ANGEL PAREKH M.D. Oct 13, 2017 11:08
--- NOTE | 2017-10-13 11:17 | Brief Operative Note ---
Immediate Post Operative Note Operative Note Pre-op Diagnosis: sepsis, respiratory distress requiring prolonged ventilatory support Procedure: percutaneous tracheostomy Post-op Diagnosis: same as pre-op Surgeon: darlene Anesthesiologist: jessica Anesthesia: general, local Specimen: none Complications: none Condition: stable Fluids: see records Estimated Blood Loss: minimal Drains: none Implant(s) used?: Yes - 6f trach Adryan Echevarria Oct 13, 2017 11:17
--- NOTE | 2017-10-13 11:24 | Immediate Post-Op Evaluation ---
Immediate Post-Op Evalulation Immediate Post-Op Evalulation Procedure: Tracheostomy, bronchoscopy Date of Evaluation: Oct 13, 2017 Time of Evaluation: 11:23 IV Fluids: 300 Blood Products: none Estimated Blood Loss: min Urinary Output: 30 Blood Pressure Systolic: 106 Blood Pressure Diastolic: 62 Pulse Rate: 84 Respiratory Rate: 16 O2 Sat by Pulse Oximetry: 99 Temperature (Fahrenheit): 97.6 Pain Score (1-10): 1 Nausea: No Vomiting: No Complications none Patient Status: no response, ventilated, none Hydration Status: adequate WOOD ALAN M.D. Oct 13, 2017 11:24
--- NOTE | 2017-10-13 12:41 | Diagnostic Imaging Report ---
Indication: Follow-up status post bronchoscopy Technique: One view of the chest Comparison: 4 hours earlier Findings: Interim replacement of the endotracheal tube with a tracheostomy. No pneumothorax or pneumomediastinum demonstrated. Interim placement of nasogastric tube with a weighted nasogastric feeding tube, tip apparently coiled in the gastric body. 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 And a biliary stent is again demonstrated Impression: Interim tracheostomy placement. No radiographically evident complication Interim nasogastric tube exchange, tip in good position Stable bilateral parenchymal disease
--- NOTE | 2017-10-13 12:52 | Infectious Diseases Prog Note ---
Assessment/Plan Assessment/Plan The patient is a 76-year-old female w Fever, SP Leukocytosis, resolved- likely cholangitis Community-acquired vs healthcare-associated pneumonia, s/p RX (the patient has been recently hospitalized in [facility]). -now ARDS- -CT chest 10/07: Extensive diffuse bilateral pulmonary parenchymal disease, slightly worse than on prior exam of 09/23/2017. Main differential considerations include pneumonia, ARDS, pulmonary edema, among multiple other possibilities. Bilateral moderate to large pleural effusions, slightly increased in size from 09/23/2017. Nasogastric and endotracheal tubes in good position. Evidence of generalized anasarca, with diffuse subcutaneous soft tissue edema. Probable influenza despite of negative influenza screening test, s/p Rx Abnormal liver function tests, ALP>>> AST -2ry to sludged CBD ,cholangitis, obstruction on CBD; AST/ALT normal now, ALP improved but now worsening again -s/p ERCP 10/08: Intraoperative images demonstrate faint opacification of the common bile duct, and placement of a new plastic endobiliary stent. What may be a previous malpositioned biliary stent is seen to the left of the endoscope -CT abd/p 10/07: Anasarca, also previously described, currently similar except for increased size of bilateral pleural fluid described on chest CT. Gallbladder wall edema, probably a manifestation of anasarca, although acute cholecystitis not excludable. Note that similar findings were seen on the previous study, which was followed by a negative HIDA scan. Endometrial biliary stent now present. Mild central intrahepatic biliary ductal dilatation despite this. Low-attenuation areas in the spleen, as described. Equivocal clinically evident previously in retrospect that much more conspicuous currently, probably due to less image artifact on the current study. These are nonspecific, could represent cysts, infarcts, areas of inflammation, much less likely neoplasm. Satisfactory position of nasogastric tube. 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 Nonspecific inflammatory changes surrounding the hips. Right hip region lipoma -s/p ERCP with stent placement 10/01 -EUS 09/30: 1. Dilated common bile duct with lots of sludge in the distal common bile duct, most probably explanation for abnormal liver function tests. 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 Depression. Anemia. Rheumatoid arthritis. History of gastritis. PLAN: monitor pt off of Ab Rx - 10/11 SP Ertapenem #7/7 10/09 SP MIcafungin #10 10/02 SP Amikacin #10 09/30 SP Flagyl #8 09/25 sp Fluconazole #3 (held due to rise ALP) 09/23 SP Meropenem #5, PO Vanco #2 09/21 SP tamiflu #10 -f/u Repeat cultures -f/u Asp ag, fungitell, Cocci ab, fungal sp cx (called lab on 10/09 for f/u on these tests; was told they are still pending and they will call [facility] for an update). Monitor CBC.; Trend WBC Monitor BMP.; Trend LFTs Monitor chest x-ray -GI, heme onc f/u Subjective Allergies: Coded Allergies: No Known Allergies (Verified , 11/18/08) Subjective SP Fiberoptic bronchoscopy, bronchoalveolar lavage, upper airway endoscopy for percutaneous tracheostomy, bronchoscopy through tracheostomy Objective Vital Signs Last 24 Hour Vital Signs Date Time Temp Pulse Resp B/P (MAP) Pulse Ox O2 Delivery O2 Flow Rate FiO2 10/13/17 12:00 69 10/13/17 11:24 81 18 40 10/13/17 11:24 207.7 84 16 99 10/13/17 11:00 63 18 148/67 100 Trach Collar 40 10/13/17 09:07 68 19 40 10/13/17 09:00 71 20 112/49 99 Mechanical Ventilator 40 10/13/17 08:18 74 130/72 10/13/17 08:00 98.2 74 20 128/55 100 Mechanical Ventilator 40 98.2 10/13/17 08:00 40 10/13/17 08:00 72 10/13/17 07:13 75 20 40 10/13/17 07:00 71 25 133/56 100 Mechanical Ventilator 40 10/13/17 06:00 72 23 131/61 100 Mechanical Ventilator 40 10/13/17 05:02 84 16 40 10/13/17 05:00 75 18 135/60 99 Mechanical Ventilator 40 10/13/17 04:00 83 22 118/66 97 Mechanical Ventilator 40 10/13/17 04:00 84 10/13/17 04:00 40 10/13/17 03:15 84 16 40 10/13/17 03:00 79 22 123/50 97 Mechanical Ventilator 40 10/13/17 02:00 80 16 101/44 99 Mechanical Ventilator 40 10/13/17 01:37 79 18 40 10/13/17 01:00 73 18 126/49 100 Mechanical Ventilator 40 10/13/17 00:00 77 10/13/17 00:00 40 10/13/17 00:00 98.7 78 16 124/51 100 Mechanical Ventilator 40 98.7 10/12/17 23:16 78 19 40 10/12/17 23:00 70 18 138/59 100 Mechanical Ventilator 40 10/12/17 22:00 71 19 131/51 100 Mechanical Ventilator 40 10/12/17 21:12 77 22 40 10/12/17 21:00 73 21 112/66 100 Mechanical Ventilator 40 10/12/17 20:00 40 10/12/17 20:00 71 10/12/17 20:00 98.5 73 18 119/47 100 Mechanical Ventilator 40 98.5 10/12/17 19:51 73 22 Mechanical Ventilator 40 10/12/17 19:00 73 22 110/49 100 Mechanical Ventilator 40 10/12/17 18:45 85 30 40 10/12/17 18:00 85 30 153/57 100 Mechanical Ventilator 40 10/12/17 17:59 69 147/65 10/12/17 17:23 75 18 40 10/12/17 17:00 70 18 138/59 100 Mechanical Ventilator 40 10/12/17 16:00 98.2 72 22 103/57 100 Mechanical Ventilator 40 98.2 10/12/17 16:00 40 10/12/17 16:00 79 10/12/17 15:11 73 19 40 10/12/17 15:00 76 26 111/48 100 Mechanical Ventilator 40 10/12/17 14:00 74 22 112/49 100 Mechanical Ventilator 40 10/12/17 13:18 77 19 40 10/12/17 13:00 83 20 133/50 99 Mechanical Ventilator 40 Height (Feet): 5 Height (Inches): 4.00 Weight (Pounds): 93 HEENT: anicteric Respiratory/Chest: no accessory muscle use Cardiovascular: no JVD Laboratory Tests Test 10/13/17 04:15 10/13/17 09:10 White Blood Count 9.1 K/UL (4.8-10.8) Red Blood Count 2.78 M/UL (4.20-5.40) L Hemoglobin 8.6 G/DL (12.0-16.0) L Hematocrit 27.2 % (37.0-47.0) L Mean Corpuscular Volume 98 FL (80-99) Mean Corpuscular Hemoglobin 31.0 PG (27.0-31.0) Mean Corpuscular Hemoglobin Concent 31.7 G/DL (32.0-36.0) L Red Cell Distribution Width 17.2 % (11.6-14.8) H Platelet Count 170 K/UL (150-450) Mean Platelet Volume 8.5 FL (6.5-10.1) Neutrophils (%) (Auto) 73.9 % (45.0-75.0) Lymphocytes (%) (Auto) 15.7 % (20.0-45.0) L Monocytes (%) (Auto) 6.0 % (1.0-10.0) Eosinophils (%) (Auto) 4.0 % (0.0-3.0) H Basophils (%) (Auto) 0.4 % (0.0-2.0) Sodium Level 145 MMOL/L (136-145) Potassium Level 4.0 MMOL/L (3.5-5.1) Chloride Level 104 MMOL/L (98-107) Carbon Dioxide Level 38 MMOL/L (21-32) H Anion Gap 3 mmol/L (5-15) L Blood Urea Nitrogen 31 mg/dL (7-18) H Creatinine 0.7 MG/DL (0.55-1.30) Estimat Glomerular Filtration Rate mL/min (>60) Glucose Level 135 MG/DL (74-106) H Calcium Level 8.0 MG/DL (8.5-10.1) L Phosphorus Level 4.0 MG/DL (2.5-4.9) Magnesium Level 1.8 MG/DL (1.8-2.4) Total Bilirubin 4.4 MG/DL (0.2-1.0) H Direct Bilirubin 3.5 MG/DL (0.0-0.3) H Aspartate Amino Transf (AST/SGOT) 95 U/L (15-37) H Alanine Aminotransferase (ALT/SGPT) 71 U/L (12-78) Alkaline Phosphatase 1450 U/L (46-116) H Total Protein 5.7 G/DL (6.4-8.2) L Albumin 1.6 G/DL (3.4-5.0) L Globulin 4.1 g/dL Albumin/Globulin Ratio 0.4 (1.0-2.7) L Arterial Blood pH 7.630 (7.350-7.450) Arterial Blood Partial Pressure CO2 30.4 mmHg (35.0-45.0) L Arterial Blood Partial Pressure O2 91.2 mmHg (75.0-100.0) Arterial Blood HCO3 31.4 mmol/L (22.0-26.0) H Arterial Blood Oxygen Saturation 97.1 % (92.0-98.0) Arterial Blood Base Excess 10.0 Luis A Test Positive Current Medications Medications (Trade) Dose Ordered Sig/Hermes Route PRN Reason Start Time Stop Time Status Last Admin Dose Admin Acetaminophen (Tylenol) 650 mg Q6H PRN NG Fever/Headache/Mild Pain 10/11/17 08:30 11/10/17 08:29 10/11/17 22:36 Albuterol/ Ipratropium (Albuterol/ Ipratropium) 3 ml Q4H PRN HHN shortness of breath 10/11/17 08:30 10/16/17 08:29 Clonidine HCl (Catapres Tab) 0.1 mg Q4H PRN ORAL SBP>160 UNRELIEVED BY HYDRALAZ 09/16/17 16:45 10/15/17 16:59 Clotrimazole (Lotrimin) 1 applic EVERY 12 HOURS TOPIC 10/10/17 23:00 11/09/17 22:59 10/13/17 08:28 Dextrose (Dextrose 50%) STAT PRN IV Hypoglycemia 09/13/17 15:00 10/13/17 14:59 Diltiazem HCl (Cardizem) 30 mg BID NG 10/11/17 09:00 11/10/17 08:59 10/13/17 08:18 Furosemide (Lasix) 40 mg DAILY IV 10/13/17 09:00 11/12/17 08:59 10/13/17 08:18 Insulin Aspart (NovoLOG) EVERY 6 HOURS SUBQ 09/17/17 12:00 10/17/17 11:59 10/13/17 05:56 Ketotifen Fumarate (Zatidor) 1 drop DAILY BOTH EYES 09/26/17 09:00 10/25/17 08:59 10/13/17 08:28 Pantoprazole (Protonix) 40 mg DAILY IVP 10/02/17 09:00 11/01/17 08:59 10/13/17 08:18 Polyethylene Glycol (Miralax) 17 gm BEDTIME ORAL 09/14/17 21:00 10/14/17 20:59 10/11/17 21:44 Potassium Chloride (K-Dur) 20 meq DAILY ORAL 10/13/17 09:00 11/12/17 08:59 10/13/17 08:18 Edis Hunter MD Oct 13, 2017 12:52
--- NOTE | 2017-10-13 12:52 | Internal Med Progress Note ---
Subjective Date of Service: Oct 13, 2017 Physician Name Sina Bowens Attending Physician Jesus Barahona MD Current Medications Medications (Trade) Dose Ordered Sig/Hermes Route PRN Reason Start Time Stop Time Status Last Admin Dose Admin Acetaminophen (Tylenol) 650 mg Q6H PRN NG Fever/Headache/Mild Pain 10/11/17 08:30 11/10/17 08:29 10/11/17 22:36 Albuterol/ Ipratropium (Albuterol/ Ipratropium) 3 ml Q4H PRN HHN shortness of breath 10/11/17 08:30 10/16/17 08:29 Clonidine HCl (Catapres Tab) 0.1 mg Q4H PRN ORAL SBP>160 UNRELIEVED BY HYDRALAZ 09/16/17 16:45 10/15/17 16:59 Clotrimazole (Lotrimin) 1 applic EVERY 12 HOURS TOPIC 10/10/17 23:00 11/09/17 22:59 10/13/17 08:28 Dextrose (Dextrose 50%) STAT PRN IV Hypoglycemia 09/13/17 15:00 10/13/17 14:59 Diltiazem HCl (Cardizem) 30 mg BID NG 10/11/17 09:00 11/10/17 08:59 10/13/17 08:18 Furosemide (Lasix) 40 mg DAILY IV 10/13/17 09:00 11/12/17 08:59 10/13/17 08:18 Insulin Aspart (NovoLOG) EVERY 6 HOURS SUBQ 09/17/17 12:00 10/17/17 11:59 10/13/17 05:56 Ketotifen Fumarate (Zatidor) 1 drop DAILY BOTH EYES 09/26/17 09:00 10/25/17 08:59 10/13/17 08:28 Pantoprazole (Protonix) 40 mg DAILY IVP 10/02/17 09:00 11/01/17 08:59 10/13/17 08:18 Polyethylene Glycol (Miralax) 17 gm BEDTIME ORAL 09/14/17 21:00 10/14/17 20:59 10/11/17 21:44 Potassium Chloride (K-Dur) 20 meq DAILY ORAL 10/13/17 09:00 11/12/17 08:59 10/13/17 08:18 Allergies: Coded Allergies: No Known Allergies (Verified , 11/18/08) ROS Limited/Unobtainable: Yes Subjective 76 YO F admitted with Shortness of breath, now respiratory failure. Intubated and sedated. Cover for Internal Med-Dr. Barahona. ICU . S/P ERCP 10/08/17. S/P Tracheostomy and bronchoscopy 10/13/17 Objective Last Vital Signs Date Time Temp Pulse Resp B/P (MAP) Pulse Ox O2 Delivery O2 Flow Rate FiO2 10/13/17 12:00 69 10/13/17 11:24 18 40 10/13/17 11:24 207.7 99 10/13/17 11:00 148/67 Trach Collar Laboratory Tests Test 10/13/17 04:15 10/13/17 09:10 White Blood Count 9.1 K/UL (4.8-10.8) Red Blood Count 2.78 M/UL (4.20-5.40) L Hemoglobin 8.6 G/DL (12.0-16.0) L Hematocrit 27.2 % (37.0-47.0) L Mean Corpuscular Volume 98 FL (80-99) Mean Corpuscular Hemoglobin 31.0 PG (27.0-31.0) Mean Corpuscular Hemoglobin Concent 31.7 G/DL (32.0-36.0) L Red Cell Distribution Width 17.2 % (11.6-14.8) H Platelet Count 170 K/UL (150-450) Mean Platelet Volume 8.5 FL (6.5-10.1) Neutrophils (%) (Auto) 73.9 % (45.0-75.0) Lymphocytes (%) (Auto) 15.7 % (20.0-45.0) L Monocytes (%) (Auto) 6.0 % (1.0-10.0) Eosinophils (%) (Auto) 4.0 % (0.0-3.0) H Basophils (%) (Auto) 0.4 % (0.0-2.0) Sodium Level 145 MMOL/L (136-145) Potassium Level 4.0 MMOL/L (3.5-5.1) Chloride Level 104 MMOL/L (98-107) Carbon Dioxide Level 38 MMOL/L (21-32) H Anion Gap 3 mmol/L (5-15) L Blood Urea Nitrogen 31 mg/dL (7-18) H Creatinine 0.7 MG/DL (0.55-1.30) Estimat Glomerular Filtration Rate mL/min (>60) Glucose Level 135 MG/DL (74-106) H Calcium Level 8.0 MG/DL (8.5-10.1) L Phosphorus Level 4.0 MG/DL (2.5-4.9) Magnesium Level 1.8 MG/DL (1.8-2.4) Total Bilirubin 4.4 MG/DL (0.2-1.0) H Direct Bilirubin 3.5 MG/DL (0.0-0.3) H Aspartate Amino Transf (AST/SGOT) 95 U/L (15-37) H Alanine Aminotransferase (ALT/SGPT) 71 U/L (12-78) Alkaline Phosphatase 1450 U/L (46-116) H Total Protein 5.7 G/DL (6.4-8.2) L Albumin 1.6 G/DL (3.4-5.0) L Globulin 4.1 g/dL Albumin/Globulin Ratio 0.4 (1.0-2.7) L Arterial Blood pH 7.630 (7.350-7.450) Arterial Blood Partial Pressure CO2 30.4 mmHg (35.0-45.0) L Arterial Blood Partial Pressure O2 91.2 mmHg (75.0-100.0) Arterial Blood HCO3 31.4 mmol/L (22.0-26.0) H Arterial Blood Oxygen Saturation 97.1 % (92.0-98.0) Arterial Blood Base Excess 10.0 Luis A Test Positive Intake and Output 10/12/17 10/13/17 19:00 07:00 Intake Total 800 ml 600 ml Output Total 1770 ml 875 ml Balance -970 ml -275 ml Intake Free Water 100 ml Tube Feeding 600 ml 500 ml Other 200 ml Output Urine Total 1770 ml 875 ml # Bowel Movements 8 2 Objective General Appearance: lethargic, thin EENT: normal ENT inspection Neck: Trach; non-tender, normal alignment, supple Cardiovascular: normal peripheral pulses, normal rate, regular rhythm, no gallop/murmur, no JVD Respiratory/Chest: Mechanical vent; respiratory distress, crackles/rales, rhonchi - bilaterally, expiratory wheezing Abdomen: normal bowel sounds, non tender, soft, no organomegaly, no mass Skin: normal pigmentation, warm/dry Assessment/Plan Problem List: (1) HTN (hypertension) Assessment & Plan: Currently hypotensive. (2) Arthritis, rheumatoid (3) Parkinsons disease (4) Aplastic anemia (5) GERD (gastroesophageal reflux disease) (6) Respiratory failure Assessment & Plan: S/P Tracheostomy and broncholsopy 10/13/17. Cont vent per pulmonary (7) Pneumonia (8) Dyspnea (9) Sepsis Assessment & Plan: Blood culture neg. Continue Amikacin, micafungin and flagyl per ID (10) ARDS (adult respiratory distress syndrome) Assessment & Plan: See pulmonary note (11) UTI (urinary tract infection) Assessment & Plan: E.Coli. Continue abx per ID (12) Anemia Assessment & Plan: S/P Transfusion 2 units PRBC (13) Diabetes mellitus, type II Assessment & Plan: Continue novolog sliding scale (14) Leukocytosis Assessment & Plan: Worsening. See ID note. Start amikacin and fluconazole (15) Thrombocytopenia (16) Gallbladder sludge Assessment & Plan: s/P ERCP 10/01, 10/07/17 and 10/08/17 (17) Coagulopathy Assessment & Plan: S/P FFP and Vit K Status: not improved SINA BOWENS Oct 13, 2017 12:52
--- NOTE | 2017-10-13 12:54 | General Progress Note ---
Assessment/Plan Problem List: (1) Arthritis, rheumatoid ICD Codes: M06.9 - Rheumatoid arthritis, unspecified SNOMED: 16695289 (2) Aspiration pneumonia ICD Codes: J69.0 - Pneumonitis due to inhalation of food and vomit SNOMED: 319960200 (3) Diabetes mellitus ICD Codes: E11.9 - Type 2 diabetes mellitus without complications SNOMED: 57379649 (4) ARDS (adult respiratory distress syndrome) ICD Codes: J80 - Acute respiratory distress syndrome SNOMED: 97757987 (5) Transaminitis ICD Codes: R74.0 - Nonspecific elevation of levels of transaminase and lactic acid dehydrogenase [LDH] SNOMED: 846533648, 975967131 (6) Dyspnea ICD Codes: R06.00 - Dyspnea, unspecified SNOMED: 941469050 (7) Parkinsons disease ICD Codes: G20 - Parkinson's disease SNOMED: 72494235 (8) Sepsis ICD Codes: A41.9 - Sepsis, unspecified organism SNOMED: 44957888 (9) GERD (gastroesophageal reflux disease) ICD Codes: K21.9 - Gastro-esophageal reflux disease without esophagitis SNOMED: 530622526 (10) Aplastic anemia ICD Codes: D61.9 - Aplastic anemia, unspecified SNOMED: 086267608 (11) Pneumonia ICD Codes: J18.9 - Pneumonia, unspecified organism SNOMED: 799294317 (12) HTN (hypertension) ICD Codes: I10 - Essential (primary) hypertension SNOMED: 09790491 Assessment/Plan Encephalopathy, agitation, psychotic disorder. -cont current meds -ativan prn Subjective Date patient seen: Oct 12, 2017 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: Reports: anxiety, emotional problems Allergies: Coded Allergies: No Known Allergies (Verified , 11/18/08) Subjective the pt is calm nad anxious at times Objective Last 24 Hour Vital Signs Date Time Temp Pulse Resp B/P (MAP) Pulse Ox O2 Delivery O2 Flow Rate FiO2 10/13/17 12:00 69 10/13/17 12:00 40 10/13/17 11:24 81 18 40 10/13/17 11:24 207.7 84 16 99 10/13/17 11:00 63 18 148/67 100 Trach Collar 40 10/13/17 09:07 68 19 40 10/13/17 09:00 71 20 112/49 99 Mechanical Ventilator 40 10/13/17 08:18 74 130/72 10/13/17 08:00 98.2 74 20 128/55 100 Mechanical Ventilator 40 98.2 10/13/17 08:00 40 10/13/17 08:00 72 10/13/17 07:13 75 20 40 10/13/17 07:00 71 25 133/56 100 Mechanical Ventilator 40 10/13/17 06:00 72 23 131/61 100 Mechanical Ventilator 40 10/13/17 05:02 84 16 40 10/13/17 05:00 75 18 135/60 99 Mechanical Ventilator 40 10/13/17 04:00 83 22 118/66 97 Mechanical Ventilator 40 10/13/17 04:00 84 10/13/17 04:00 40 10/13/17 03:15 84 16 40 10/13/17 03:00 79 22 123/50 97 Mechanical Ventilator 40 10/13/17 02:00 80 16 101/44 99 Mechanical Ventilator 40 10/13/17 01:37 79 18 40 10/13/17 01:00 73 18 126/49 100 Mechanical Ventilator 40 10/13/17 00:00 77 10/13/17 00:00 40 10/13/17 00:00 98.7 78 16 124/51 100 Mechanical Ventilator 40 98.7 10/12/17 23:16 78 19 40 10/12/17 23:00 70 18 138/59 100 Mechanical Ventilator 40 10/12/17 22:00 71 19 131/51 100 Mechanical Ventilator 40 10/12/17 21:12 77 22 40 10/12/17 21:00 73 21 112/66 100 Mechanical Ventilator 40 10/12/17 20:00 40 10/12/17 20:00 71 10/12/17 20:00 98.5 73 18 119/47 100 Mechanical Ventilator 40 98.5 10/12/17 19:51 73 22 Mechanical Ventilator 40 10/12/17 19:00 73 22 110/49 100 Mechanical Ventilator 40 10/12/17 18:45 85 30 40 10/12/17 18:00 85 30 153/57 100 Mechanical Ventilator 40 10/12/17 17:59 69 147/65 10/12/17 17:23 75 18 40 10/12/17 17:00 70 18 138/59 100 Mechanical Ventilator 40 10/12/17 16:00 98.2 72 22 103/57 100 Mechanical Ventilator 40 98.2 10/12/17 16:00 40 10/12/17 16:00 79 10/12/17 15:11 73 19 40 10/12/17 15:00 76 26 111/48 100 Mechanical Ventilator 40 10/12/17 14:00 74 22 112/49 100 Mechanical Ventilator 40 10/12/17 13:18 77 19 40 10/12/17 13:00 83 20 133/50 99 Mechanical Ventilator 40 Intake and Output 10/12/17 10/13/17 19:00 07:00 Intake Total 800 ml 600 ml Output Total 1770 ml 875 ml Balance -970 ml -275 ml Intake Free Water 100 ml Tube Feeding 600 ml 500 ml Other 200 ml Output Urine Total 1770 ml 875 ml # Bowel Movements 8 2 Laboratory Tests 10/13/17 04:15: White Blood Count 9.1, Red Blood Count 2.78L, Hemoglobin 8.6L, Hematocrit 27.2L , Mean Corpuscular Volume 98, Mean Corpuscular Hemoglobin 31.0, Mean Corpuscular Hemoglobin Concent 31.7L, Red Cell Distribution Width 17.2H, Platelet Count 170, Mean Platelet Volume 8.5, Neutrophils (%) (Auto) 73.9, Lymphocytes (%) (Auto) 15.7L, Monocytes (%) (Auto) 6.0, Eosinophils (%) (Auto) 4.0H, Basophils (%) (Auto) 0.4, Sodium Level 145, Potassium Level 4.0, Chloride Level 104, Carbon Dioxide Level 38H, Anion Gap 3L, Blood Urea Nitrogen 31H, Creatinine 0.7, Estimat Glomerular Filtration Rate , Glucose Level 135H, Calcium Level 8.0L, Phosphorus Level 4.0, Magnesium Level 1.8, Total Bilirubin 4.4H, Direct Bilirubin 3.5H, Aspartate Amino Transf (AST/SGOT) 95H, Alanine Aminotransferase (ALT/SGPT) 71, Alkaline Phosphatase 1450H, Total Protein 5.7L, Albumin 1.6L, Globulin 4.1, Albumin/Globulin Ratio 0.4L 10/13/17 09:10: Arterial Blood pH 7.630*H, Arterial Blood Partial Pressure CO2 30.4L, Arterial Blood Partial Pressure O2 91.2, Arterial Blood HCO3 31.4H, Arterial Blood Oxygen Saturation 97.1, Arterial Blood Base Excess 10.0, Luis A Test Positive Height (Feet): 5 Height (Inches): 4.00 Weight (Pounds): 93 Dary Nixon M.D. Oct 13, 2017 12:54
--- NOTE | 2017-10-13 14:54 | Cardiac Electrophysiology PN ---
Assessment/Plan Assessment/Plan 1. Vent dependent Respiratory failure, due to underlying ARDS , pneumonia. Already ruled out for myocardial infarction. Now on 45% Fio2 with PEEP of 5. S/P Tracheostomy by Dr Echevarria and and Bronchoscopy by Dr Parekh today 2. Left bundle-branch block. No evidence of advanced heart block. 3. HTN and diastolic dysfunction. Echo EF 55% On Cardizem 30 BID 4. Hypernatremia and Azotemia. F/U per Dr. Mayer 5. Pneumonia and sepsis on IV antibiotics by Dr. Hunter. 6. Psychiatric disorder. 7. Anasarca. 3rd spacing. 8. Anemia with Hb 6.6 s/p PRBC. CT chest abdomen and pelvis without contrast no acute finding S/P EGD by Dr Walton 9. Severe thrombocytopenia. S/P platelet transfusion 10. Abnormal LFT, Biliary obstruction, possible cholangitis. S/P ERCP. CBD sludge. S/P repeat ERCP and stent by Dr Walton Billirubin down to 4 11. High INR 3.5 likely due to hepatic failure. S/P FFP and Vit K. INR 1 now DW RN Subjective Subjective Intubated on Vent via tracheostomy that was placed in today in ICU. No SVT or VT. Also had Bronchostomy today. Objective Last 24 Hour Vital Signs Date Time Temp Pulse Resp B/P (MAP) Pulse Ox O2 Delivery O2 Flow Rate FiO2 10/13/17 14:00 63 22 152/69 99 Trach Collar 40 10/13/17 13:15 65 18 40 10/13/17 13:00 64 29 141/56 99 Trach Collar 40 10/13/17 12:00 97.6 69 29 160/62 99 Trach Collar 40 97.6 10/13/17 12:00 69 10/13/17 12:00 40 10/13/17 11:24 81 18 40 10/13/17 11:24 207.7 84 16 99 10/13/17 11:00 63 18 148/67 100 Trach Collar 40 10/13/17 09:07 68 19 40 10/13/17 09:00 71 20 112/49 99 Mechanical Ventilator 40 10/13/17 08:18 74 130/72 10/13/17 08:00 98.2 74 20 128/55 100 Mechanical Ventilator 40 98.2 10/13/17 08:00 40 10/13/17 08:00 72 10/13/17 07:13 75 20 40 10/13/17 07:00 71 25 133/56 100 Mechanical Ventilator 40 10/13/17 06:00 72 23 131/61 100 Mechanical Ventilator 40 10/13/17 05:02 84 16 40 10/13/17 05:00 75 18 135/60 99 Mechanical Ventilator 40 10/13/17 04:00 83 22 118/66 97 Mechanical Ventilator 40 10/13/17 04:00 84 10/13/17 04:00 40 10/13/17 03:15 84 16 40 10/13/17 03:00 79 22 123/50 97 Mechanical Ventilator 40 10/13/17 02:00 80 16 101/44 99 Mechanical Ventilator 40 10/13/17 01:37 79 18 40 10/13/17 01:00 73 18 126/49 100 Mechanical Ventilator 40 10/13/17 00:00 77 10/13/17 00:00 40 10/13/17 00:00 98.7 78 16 124/51 100 Mechanical Ventilator 40 98.7 10/12/17 23:16 78 19 40 10/12/17 23:00 70 18 138/59 100 Mechanical Ventilator 40 10/12/17 22:00 71 19 131/51 100 Mechanical Ventilator 40 10/12/17 21:12 77 22 40 10/12/17 21:00 73 21 112/66 100 Mechanical Ventilator 40 10/12/17 20:00 40 10/12/17 20:00 71 10/12/17 20:00 98.5 73 18 119/47 100 Mechanical Ventilator 40 98.5 10/12/17 19:51 73 22 Mechanical Ventilator 40 10/12/17 19:00 73 22 110/49 100 Mechanical Ventilator 40 10/12/17 18:45 85 30 40 10/12/17 18:00 85 30 153/57 100 Mechanical Ventilator 40 10/12/17 17:59 69 147/65 10/12/17 17:23 75 18 40 10/12/17 17:00 70 18 138/59 100 Mechanical Ventilator 40 10/12/17 16:00 98.2 72 22 103/57 100 Mechanical Ventilator 40 98.2 10/12/17 16:00 40 10/12/17 16:00 79 10/12/17 15:11 73 19 40 10/12/17 15:00 76 26 111/48 100 Mechanical Ventilator 40 Intake and Output 10/12/17 10/13/17 19:00 07:00 Intake Total 800 ml 600 ml Output Total 1770 ml 875 ml Balance -970 ml -275 ml Intake Free Water 100 ml Tube Feeding 600 ml 500 ml Other 200 ml Output Urine Total 1770 ml 875 ml # Bowel Movements 8 2 Laboratory Tests Test 10/13/17 04:15 10/13/17 09:10 10/13/17 13:00 White Blood Count 9.1 K/UL (4.8-10.8) Red Blood Count 2.78 M/UL (4.20-5.40) L Hemoglobin 8.6 G/DL (12.0-16.0) L Hematocrit 27.2 % (37.0-47.0) L Mean Corpuscular Volume 98 FL (80-99) Mean Corpuscular Hemoglobin 31.0 PG (27.0-31.0) Mean Corpuscular Hemoglobin Concent 31.7 G/DL (32.0-36.0) L Red Cell Distribution Width 17.2 % (11.6-14.8) H Platelet Count 170 K/UL (150-450) Mean Platelet Volume 8.5 FL (6.5-10.1) Neutrophils (%) (Auto) 73.9 % (45.0-75.0) Lymphocytes (%) (Auto) 15.7 % (20.0-45.0) L Monocytes (%) (Auto) 6.0 % (1.0-10.0) Eosinophils (%) (Auto) 4.0 % (0.0-3.0) H Basophils (%) (Auto) 0.4 % (0.0-2.0) Sodium Level 145 MMOL/L (136-145) Potassium Level 4.0 MMOL/L (3.5-5.1) Chloride Level 104 MMOL/L (98-107) Carbon Dioxide Level 38 MMOL/L (21-32) H Anion Gap 3 mmol/L (5-15) L Blood Urea Nitrogen 31 mg/dL (7-18) H Creatinine 0.7 MG/DL (0.55-1.30) Estimat Glomerular Filtration Rate mL/min (>60) Glucose Level 135 MG/DL (74-106) H Calcium Level 8.0 MG/DL (8.5-10.1) L Phosphorus Level 4.0 MG/DL (2.5-4.9) Magnesium Level 1.8 MG/DL (1.8-2.4) Total Bilirubin 4.4 MG/DL (0.2-1.0) H Direct Bilirubin 3.5 MG/DL (0.0-0.3) H Aspartate Amino Transf (AST/SGOT) 95 U/L (15-37) H Alanine Aminotransferase (ALT/SGPT) 71 U/L (12-78) Alkaline Phosphatase 1450 U/L (46-116) H Total Protein 5.7 G/DL (6.4-8.2) L Albumin 1.6 G/DL (3.4-5.0) L Globulin 4.1 g/dL Albumin/Globulin Ratio 0.4 (1.0-2.7) L Arterial Blood pH 7.630 (7.350-7.450) Arterial Blood Partial Pressure CO2 30.4 mmHg (35.0-45.0) L Arterial Blood Partial Pressure O2 91.2 mmHg (75.0-100.0) Arterial Blood HCO3 31.4 mmol/L (22.0-26.0) H Arterial Blood Oxygen Saturation 97.1 % (92.0-98.0) Arterial Blood Base Excess 10.0 Luis A Test Positive M. tuberculosis Complex DNA (PCR) Pending Objective HEAD AND NECK: Tracheostomy in place. Jaundiced LUNGS: Coarse rhonchi bilaterally CARDIOVASCULAR: Tachy S1 and S2.No murmur ABDOMEN: Soft. EXTREMITIES: 1+ pitting edema. Charlie Darnell MD Oct 13, 2017 14:54
--- NOTE | 2017-10-13 15:57 | Diagnostic Imaging Report ---
Indication: Post nasogastric tube placement Technique: Supine view of the upper abdomen Comparison: 10/08/2017 Findings: Previously demonstrated nasogastric tube has been replaced by a weighted nasogastric feeding tube which is coiled in the expected region of the gastric body. This is also evident on a chest radiograph performed the same time. An endobiliary stent is noted. Visualized bowel gas appears unremarkable. Extensive pulmonary parenchymal disease is detailed on reports of earlier chest radiographs Impression: Satisfactory position of weighted nasogastric feeding tube
--- NOTE | 2017-10-13 17:30 | Operative Note - Dictated ---
DATE OF OPERATION: 10/13/2017 PROCEDURE: Flexible bronchoscopy for BAL lavage, also upper airway endoscopy for percutaneous tracheostomy. SURGEON: Dr. Gissell Echevarria. BRONCHOSCOPIST: Miguel Angel Parekh M.D. PREOPERATIVE DIAGNOSIS: Respiratory failure. POSTOPERATIVE DIAGNOSIS: Respiratory failure, status post tracheostomy. ANESTHESIA: General endotracheal anesthesia. DESCRIPTION OF PROCEDURE: After consent was obtained and verified, the patient was identified in the operating room. A time-out was taken. The patient underwent general anesthesia. Thereafter, I placed the bronchoscope through the endotracheal tube. I verified position of the endotracheal tube, 3 cm above the ludmila. I then did a surveillance bronchoscopy of the entire tracheobronchial tree. There was slight increased mucoid secretions coming from the right middle lobe. BAL lavage was done of the right middle lobe. All other segments were patent. There were no endobronchial lesions. There was no obstruction. There was no excessive friability, and there were no excessive secretions. Thereafter, I went through the bronchoscope. I Dr. Echevarria to set up the tracheostomy portion. I then advanced the bronchoscope back through the ET tube just up to the tip in the trachea. I verified placement of the Blue Rhino catheter. Blue Rhino was advanced. The tracheostomy was then placed in a modified Seldinger technique over the Blue Rhino by Dr. Echevarria. I then did a repeat bronchoscopy through the tracheotomy, which once again verified the tracheotomy in good position. I then withdrew the bronchoscope and orally extubated the patient. Dr. Echevarria completed the tracheostomy portion. The patient tolerated the procedure well and was taken to the PACU afterwards. Dr. Echevarria will dictate a separate tracheostomy operation report. COMPLICATIONS: None. ESTIMATED BLOOD LOSS: None. DISPOSITION: PACU and then ICU. Miguel Angel Parekh M.D. DR: HUGO JOB#: [id number] CC:
--- NOTE | 2017-10-13 18:00 | Operative Note - Dictated ---
DATE OF OPERATION: 10/13/2017 PREOPERATIVE DIAGNOSES: 1. Sepsis. 2. Respiratory failure requiring prolonged ventilatory support. POSTOPERATIVE DIAGNOSES: 1. Sepsis. 2. Respiratory failure requiring prolonged ventilatory support. PROCEDURE: Percutaneous tracheostomy. ATTENDING SURGEON: Adryan Echevarria M.D. SUPERVISORY CLERK: None. ANESTHESIOLOGIST: Hieu Chavez M.D. ANESTHESIA: General WIC SITE COORDINATOR. BRONCHOSCOPIST: Miguel Angel Parekh M.D. ESTIMATED BLOOD LOSS: Minimal. IV FLUIDS: Please see anesthesia records. COMPLICATIONS: None. WOUND CLASSIFICATION: Class 2. SPECIMENS: None. COUNTS: Sponge and needle count correct x2. IMPLANTS: A 6-Angolan Shiley cuffed tracheostomy tube. ANTIBIOTICS: The patient was on scheduled IV antibiotics prior to entering the operating room for acute active inflammatory/infectious process. INDICATIONS FOR PROCEDURE: This is a 77-year-old female, who upon presentation to the hospital went into respiratory failure requiring intubation and ventilatory support. Initially significant ventilator requirement, but fortunately has since been able to wean requirements, but unfortunately still requires ventilator support. She has been intubated for almost approximately three to four weeks with unlikely ability to extubate in the near future. Given these findings, tracheostomy was indicated and recommended. Risks, benefits, and alternatives were discussed with the patient's family, who consented the procedure that was performed today, 10/13/2017. OPERATIVE NOTE: The patient was taken to the operating room directly from the intensive care unit and placed on the operative table in supine position with bilateral arms tucked. All bony prominences were well padded. Prior to entering the operating room, the patient already had a Davidson catheter, ET tube, and NG tube in place. The patient was already on scheduled IV antibiotics for acute active inflammatory/infectious process. Preoperative time-out was taken identifying the patient, procedure, operative staff, and surgical staff. A shoulder roll was placed and the neck was hyperextended. At this time, Dr. Parekh began with performing a full bronchoscopy and taking samples as well as clearing out the lung plata. Once this was complete, he was kind enough to assist with the percutaneous tracheostomy, which was performed under direct visualization. The ET tube was slowly withdrawn to just below the vocal cords. The neck was prepped and draped in standard surgical fashion. A fresh #15 scalpel was used to make an incision approximately 1 to 2 fingerbreadths above the sternal notch. Incision was carried down to the trachea using blunt dissection and electrocautery as necessary. No significant bleeding identified during this portion of the procedure. Once the trachea was identified, it was gently palpated and seen under direct bronchoscopy. The ET tube was in appropriate positioning and a finder needle with a sheath was inserted under direct visualization into the trachea. It was noted under direct visualization beginning anteriorly at approximately the second and third tracheal ring. The sheath was then advanced over the needle and the needle was removed. A guidewire was then placed through the sheath and under direct visualization identified going down into the base of the lung plata. The sheath was then removed, and with the guidewire in place, a Baby Blue Rhino was used to slowly dilate the tracheal tract for percutaneous tracheostomy. Following the Baby Blue Rhino, the Blue Rhino dilator was then used and using Seldinger technique, dilated to the appropriate size. A 6-Angolan tracheostomy was then inserted over the wire after dilation without complication. This was all visualized under direct visualization. The balloon was inflated and tracheostomy was placed to ventilatory support and good end-tidal CO2 and volumes were identified. Following this, local anesthetic was infiltrated as necessary. The trach was then sutured to the skin in two points using 2-0 Prolene sutures. The wound was then cleansed and dressings were applied. A final bronchoscopy was performed and evacuated lung plata and otherwise noted to be clear. At this time, we began the conclusion of our procedure. The patient was then taken directly to the intensive care unit in stable condition. Adryan Echevarria M.D. DR: CYNDY JOB#: [id number] CC:
[2017-10-13] MEDS: Miralax 17gm pkt ORAL SCH (21:00)
--- NOTE | 2017-10-13 22:13 | General Progress Note ---
Assessment/Plan Assessment/Plan Assessment - Resp failure / ARDS / PNA - Abnormal LFT, Biliary obstruction - s/p biliary and pancreatic stent - Jaundice - bili improved, but Alk phos higher today - Anemia with OB (+) stools - coagulopathy - improved - Malnutrition - hypernatremia - AMS - improved Recommendations - replace lytes - transfuse PRN - Elevate HOB - Vent care - Monitor labs - abx - follow LFT - PEG later this week Subjective Allergies: Coded Allergies: No Known Allergies (Verified , 11/18/08) Subjective Above noted doing better today s/p trach Objective Last 24 Hour Vital Signs Date Time Temp Pulse Resp B/P (MAP) Pulse Ox O2 Delivery O2 Flow Rate FiO2 10/13/17 21:07 70 19 40 10/13/17 20:00 40 10/13/17 20:00 98.4 68 22 100/46 30 Mechanical Ventilator 40 98.4 10/13/17 20:00 70 10/13/17 19:30 75 18 40 10/13/17 19:00 68 22 120/56 30 Trach Collar 40 10/13/17 18:38 68 151/62 10/13/17 18:00 74 19 150/60 30 Trach Collar 40 10/13/17 17:06 73 18 40 10/13/17 17:00 79 19 135/83 30 Trach Collar 40 10/13/17 16:00 40 10/13/17 16:00 97.4 73 19 144/63 99 Trach Collar 40 97.4 10/13/17 16:00 67 10/13/17 15:00 63 26 132/63 99 Trach Collar 40 10/13/17 14:59 72 19 40 10/13/17 14:00 63 22 152/69 99 Trach Collar 40 10/13/17 13:15 65 18 40 10/13/17 13:00 64 29 141/56 99 Trach Collar 40 10/13/17 12:00 97.6 69 29 160/62 99 Trach Collar 40 97.6 10/13/17 12:00 69 10/13/17 12:00 40 10/13/17 11:24 81 18 40 10/13/17 11:24 207.7 84 16 99 10/13/17 11:00 63 18 148/67 100 Trach Collar 40 10/13/17 09:07 68 19 40 10/13/17 09:00 71 20 112/49 99 Mechanical Ventilator 40 10/13/17 08:18 74 130/72 10/13/17 08:00 98.2 74 20 128/55 100 Mechanical Ventilator 40 98.2 10/13/17 08:00 40 10/13/17 08:00 72 10/13/17 07:13 75 20 40 10/13/17 07:00 71 25 133/56 100 Mechanical Ventilator 40 10/13/17 06:00 72 23 131/61 100 Mechanical Ventilator 40 10/13/17 05:02 84 16 40 10/13/17 05:00 75 18 135/60 99 Mechanical Ventilator 40 10/13/17 04:00 83 22 118/66 97 Mechanical Ventilator 40 10/13/17 04:00 84 10/13/17 04:00 40 10/13/17 03:15 84 16 40 10/13/17 03:00 79 22 123/50 97 Mechanical Ventilator 40 10/13/17 02:00 80 16 101/44 99 Mechanical Ventilator 40 10/13/17 01:37 79 18 40 10/13/17 01:00 73 18 126/49 100 Mechanical Ventilator 40 10/13/17 00:00 77 10/13/17 00:00 40 10/13/17 00:00 98.7 78 16 124/51 100 Mechanical Ventilator 40 98.7 10/12/17 23:16 78 19 40 10/12/17 23:00 70 18 138/59 100 Mechanical Ventilator 40 Intake and Output 10/12/17 10/13/17 19:00 07:00 Intake Total 800 ml 600 ml Output Total 1770 ml 875 ml Balance -970 ml -275 ml Intake Free Water 100 ml Tube Feeding 600 ml 500 ml Other 200 ml Output Urine Total 1770 ml 875 ml # Bowel Movements 8 2 Laboratory Tests 10/13/17 04:15: White Blood Count 9.1, Red Blood Count 2.78L, Hemoglobin 8.6L, Hematocrit 27.2L , Mean Corpuscular Volume 98, Mean Corpuscular Hemoglobin 31.0, Mean Corpuscular Hemoglobin Concent 31.7L, Red Cell Distribution Width 17.2H, Platelet Count 170, Mean Platelet Volume 8.5, Neutrophils (%) (Auto) 73.9, Lymphocytes (%) (Auto) 15.7L, Monocytes (%) (Auto) 6.0, Eosinophils (%) (Auto) 4.0H, Basophils (%) (Auto) 0.4, Sodium Level 145, Potassium Level 4.0, Chloride Level 104, Carbon Dioxide Level 38H, Anion Gap 3L, Blood Urea Nitrogen 31H, Creatinine 0.7, Estimat Glomerular Filtration Rate , Glucose Level 135H, Calcium Level 8.0L, Phosphorus Level 4.0, Magnesium Level 1.8, Total Bilirubin 4.4H, Direct Bilirubin 3.5H, Aspartate Amino Transf (AST/SGOT) 95H, Alanine Aminotransferase (ALT/SGPT) 71, Alkaline Phosphatase 1450H, Total Protein 5.7L, Albumin 1.6L, Globulin 4.1, Albumin/Globulin Ratio 0.4L 10/13/17 09:10: Arterial Blood pH 7.630*H, Arterial Blood Partial Pressure CO2 30.4L, Arterial Blood Partial Pressure O2 91.2, Arterial Blood HCO3 31.4H, Arterial Blood Oxygen Saturation 97.1, Arterial Blood Base Excess 10.0, Luis A Test Positive 10/13/17 13:00: M. tuberculosis Complex DNA (PCR) [Pending] Height (Feet): 5 Height (Inches): 4.00 Weight (Pounds): 93 Objective WDWN NCAT supple CTA RRR abd soft (+) edema opens eyes ARNULFO DURON Oct 13, 2017 22:13
[2017-10-14] VITALS (20 sets, daily range): BP systolic 82–133; BP diastolic 39–74
[2017-10-14] MEDS: NovoLOG Insulin Flexpen SUBQ SCH ×4 (00:52→18:09)
[2017-10-14] MEDS: Acetaminophen 650mg/20.3ml NG PRN (01:09)
[2017-10-14 06:45] LABS: BASOPHILS % (AUTO) 0.5 % (0.0-2.0); HEMATOCRIT 26.4 % (37.0-47.0); HEMOGLOBIN 8.5 G/DL (12.0-16.0); LYMPHOCYTES % (AUTO) 15.5 % (20.0-45.0); MEAN CORPUSCULAR VOLUME 98 FL (80-99); PLATELET COUNT 173 K/UL (150-450); RED BLOOD COUNT 2.68 M/UL (4.20-5.40); WHITE BLOOD COUNT 8.9 K/UL (4.8-10.8)
[2017-10-14 07:16] LABS: ALANINE AMINOTRANSFERASE 62 U/L (12-78); ALBUMIN 1.6 G/DL (3.4-5.0); ALBUMIN/GLOBULIN RATIO 0.4 (1.0-2.7); ALKALINE PHOSPHATASE 1659 U/L (46-116); ANION GAP 5 mmol/L (5-15); ASPARTATE AMINO TRANSFERASE 99 U/L (15-37); BILIRUBIN,DIRECT 3.3 MG/DL (0.0-0.3); BILIRUBIN,TOTAL 4.1 MG/DL (0.2-1.0); BLOOD UREA NITROGEN 30 mg/dL (7-18); CALCIUM 7.9 MG/DL (8.5-10.1); CARBON DIOXIDE 37 MMOL/L (21-32); CHLORIDE 101 MMOL/L (98-107); CREATININE 0.7 MG/DL (0.55-1.30); PHOSPHORUS 4.2 MG/DL (2.5-4.9); POTASSIUM 3.4 MMOL/L (3.5-5.1); SODIUM 143 MMOL/L (136-145)
[2017-10-14 07:29] LABS: INR 1.1 (0.9-1.1)
[2017-10-14] MEDS: dilTIAZem HCl 30mg tab NG SCH ×2 (09:00→18:21)
[2017-10-14] MEDS: Pantoprazole Inj IVP SCH (09:20)
[2017-10-14] MEDS: Ketotifen Fumarate 0.035% 5ml BOTH EYES SCH (09:21)
--- NOTE | 2017-10-14 09:33 | Pulmonolgy Critical Care Note ---
Critical Care - Asmt/Plan Problems: (1) ARDS (adult respiratory distress syndrome) (2) Aspiration pneumonia (3) Anemia (4) Thrombocytopenia (5) Diabetes mellitus (6) Protein-calorie malnutrition, severe Respiratory: monitor respiratory rate, adjust FIO2, CXR Cardiac: continue to monitor HR/BP Renal: F/U I&O, keep IV fluid Infectious Disease: check cultures Gastrointestinal: continue feedings/current rate Endocrine: monitor blood sugar, check TSH, check HgA1C, continue sliding scale insulin Hematologic: monitor H/H, transfuse if hgb<8.5 Neurologic: PRN Morphine, keep patient comfortable Affect: PRN ativan Prophylaxis: Protonix, Heparin Notes Reviewed: merchandise supervisor, cardio, renal Discussed with: nurses, consultants, case coordinatorrecreation manager - Objective Last 24 Hour Vital Signs Date Time Temp Pulse Resp B/P (MAP) Pulse Ox O2 Delivery O2 Flow Rate FiO2 10/14/17 09:00 77 102/48 10/14/17 08:42 77 18 40 10/14/17 08:00 98.5 74 25 108/42 98 Mechanical Ventilator 40 98.5 10/14/17 07:00 70 21 102/48 99 Mechanical Ventilator 40 10/14/17 06:48 78 18 40 10/14/17 06:00 92 21 91/55 99 Mechanical Ventilator 40 10/14/17 05:22 78 18 40 10/14/17 05:00 74 26 94/62 99 Mechanical Ventilator 40 10/14/17 04:00 99.5 80 30 82/39 99 Mechanical Ventilator 40 99.5 10/14/17 04:00 77 10/14/17 04:00 40 10/14/17 03:30 82 18 40 10/14/17 03:00 87 22 103/45 99 Mechanical Ventilator 40 10/14/17 02:00 88 26 100/52 99 Mechanical Ventilator 40 10/14/17 01:30 72 18 40 10/14/17 01:00 75 23 104/42 99 Mechanical Ventilator 40 10/14/17 00:00 40 10/14/17 00:00 73 10/14/17 00:00 99.2 80 45 100/44 99 Mechanical Ventilator 40 99.2 10/13/17 23:00 75 45 107/46 99 Mechanical Ventilator 40 10/13/17 22:54 73 18 40 10/13/17 22:00 71 43 112/50 99 Mechanical Ventilator 40 10/13/17 21:07 70 19 40 10/13/17 21:00 70 39 112/50 99 Mechanical Ventilator 40 10/13/17 20:00 40 10/13/17 20:00 99.4 68 22 100/46 30 Mechanical Ventilator 40 99.4 10/13/17 20:00 70 10/13/17 19:30 75 18 40 10/13/17 19:00 68 22 120/56 30 Trach Collar 40 10/13/17 18:38 68 151/62 10/13/17 18:00 74 19 150/60 30 Trach Collar 40 10/13/17 17:06 73 18 40 10/13/17 17:00 79 19 135/83 30 Trach Collar 40 10/13/17 16:00 40 10/13/17 16:00 97.4 73 19 144/63 99 Trach Collar 40 97.4 10/13/17 16:00 67 10/13/17 15:00 63 26 132/63 99 Trach Collar 40 10/13/17 14:59 72 19 40 10/13/17 14:00 63 22 152/69 99 Trach Collar 40 10/13/17 13:15 65 18 40 10/13/17 13:00 64 29 141/56 99 Trach Collar 40 10/13/17 12:00 97.6 69 29 160/62 99 Trach Collar 40 97.6 10/13/17 12:00 69 10/13/17 12:00 40 10/13/17 11:24 81 18 40 10/13/17 11:24 207.7 84 16 99 10/13/17 11:00 63 18 148/67 100 Trach Collar 40 Status: awake Condition: critical Neck: full ROM Lungs: clear Heart: HR/BP stable Abdomen: soft, non-tender, active bowel sounds Extremities: edema Accucheck: 95 Critical Care - Subjective ROS Limited/Unobtainable: No ICU Day: 33 Condition: critical EKG Rhythm: Sinus Rhythm FI02: 40 Vent Support Breath Rate: 18 Vent Support Mode: AC Vent Tidal Volume: 500 Sputum Amount: Small PEEP: 5.0 PIP: 42 Fluids: think secretions Tube Feeding Amount: 50 I&O: Intake and Output 10/13/17 10/14/17 19:00 07:00 Intake Total 140 ml 540 ml Output Total 1740 ml 605 ml Balance -1600 ml -65 ml Intake Free Water 70 ml Tube Feeding 90 ml 470 ml Other 50 ml Output Urine Total 1740 ml 605 ml # Bowel Movements 1 3 CXR: improved ET-Tube: 7.5 ET Position: 21 Labs: Laboratory Tests Test 10/13/17 13:00 10/14/17 03:00 10/14/17 08:20 10/14/17 08:31 M. tuberculosis Complex DNA (PCR) Pending White Blood Count 8.9 K/UL (4.8-10.8) Red Blood Count 2.68 M/UL (4.20-5.40) L Hemoglobin 8.5 G/DL (12.0-16.0) L Hematocrit 26.4 % (37.0-47.0) L Mean Corpuscular Volume 98 FL (80-99) Mean Corpuscular Hemoglobin 31.7 PG (27.0-31.0) H Mean Corpuscular Hemoglobin Concent 32.1 G/DL (32.0-36.0) Red Cell Distribution Width 17.0 % (11.6-14.8) H Platelet Count 173 K/UL (150-450) Mean Platelet Volume 8.7 FL (6.5-10.1) Neutrophils (%) (Auto) 75.0 % (45.0-75.0) Lymphocytes (%) (Auto) 15.5 % (20.0-45.0) L Monocytes (%) (Auto) 7.0 % (1.0-10.0) Eosinophils (%) (Auto) 2.0 % (0.0-3.0) Basophils (%) (Auto) 0.5 % (0.0-2.0) Prothrombin Time 11.3 SEC (9.30-11.50) Prothromb Time International Ratio 1.1 (0.9-1.1) Sodium Level 143 MMOL/L (136-145) Potassium Level 3.4 MMOL/L (3.5-5.1) L Chloride Level 101 MMOL/L (98-107) Carbon Dioxide Level 37 MMOL/L (21-32) H Anion Gap 5 mmol/L (5-15) Blood Urea Nitrogen 30 mg/dL (7-18) H Creatinine 0.7 MG/DL (0.55-1.30) Estimat Glomerular Filtration Rate mL/min (>60) Glucose Level 120 MG/DL (74-106) H Calcium Level 7.9 MG/DL (8.5-10.1) L Phosphorus Level 4.2 MG/DL (2.5-4.9) Magnesium Level 2.0 MG/DL (1.8-2.4) Total Bilirubin 4.1 MG/DL (0.2-1.0) H Direct Bilirubin 3.3 MG/DL (0.0-0.3) H Aspartate Amino Transf (AST/SGOT) 99 U/L (15-37) H Alanine Aminotransferase (ALT/SGPT) 62 U/L (12-78) Alkaline Phosphatase 1659 U/L (46-116) H Total Protein 5.6 G/DL (6.4-8.2) L Albumin 1.6 G/DL (3.4-5.0) L Globulin 4.0 g/dL Albumin/Globulin Ratio 0.4 (1.0-2.7) L Cytomegalovirus DNA Qual (PCR) Pending Cytomegalovirus DNA PCR copies/ml Pending Cytomegalovirus DNA PCR log10 Pending Varicella-Zoster IgG Antibody Pending Varicella-Zoster IgM Antibody Pending Arterial Blood pH 7.619 (7.350-7.450) Arterial Blood Partial Pressure CO2 35.8 mmHg (35.0-45.0) Arterial Blood Partial Pressure O2 376.1 mmHg (75.0-100.0) H Arterial Blood HCO3 35.7 mmol/L (22.0-26.0) H Arterial Blood Oxygen Saturation 99.3 % (92.0-98.0) H Arterial Blood Base Excess 13.5 Luis A Test Positive Tayler Liu MD Oct 14, 2017 09:33
--- NOTE | 2017-10-14 10:29 | Diagnostic Imaging Report ---
Indication: Dyspnea Technique: One view of the chest Comparison: 10/13/2017 Findings: Weighted enteric feeding tube, tracheostomy remain. Bilateral diffuse interstitial and airspace disease appears unchanged. Impression: Unchanged, over one day, findings as above.
--- NOTE | 2017-10-14 12:21 | General Progress Note ---
Progress Note Progress Note Surgery: POD #1 s/p trach. recovering. looks much better today. eyes open. responsive to commands. smiles. trach clean and functional. no issues. wean vent as tolerated. thank you Adryan Echevarria Oct 14, 2017 12:21
--- NOTE | 2017-10-14 12:55 | Infectious Diseases Prog Note ---
Assessment/Plan Assessment/Plan The patient is a 76-year-old female w Fever, SP Leukocytosis, resolved- likely cholangitis Community-acquired vs healthcare-associated pneumonia, s/p RX (the patient has been recently hospitalized in [facility]). -now ARDS- -CT chest 10/07: Extensive diffuse bilateral pulmonary parenchymal disease, slightly worse than on prior exam of 09/23/2017. Main differential considerations include pneumonia, ARDS, pulmonary edema, among multiple other possibilities. Bilateral moderate to large pleural effusions, slightly increased in size from 09/23/2017. Nasogastric and endotracheal tubes in good position. Evidence of generalized anasarca, with diffuse subcutaneous soft tissue edema. Probable influenza despite of negative influenza screening test, s/p Rx Abnormal liver function tests, ALP>>> AST -2ry to sludged CBD ,cholangitis, obstruction on CBD; AST/ALT normal now, ALP improved but now worsening again -s/p ERCP 10/08: Intraoperative images demonstrate faint opacification of the common bile duct, and placement of a new plastic endobiliary stent. What may be a previous malpositioned biliary stent is seen to the left of the endoscope -CT abd/p 10/07: Anasarca, also previously described, currently similar except for increased size of bilateral pleural fluid described on chest CT. Gallbladder wall edema, probably a manifestation of anasarca, although acute cholecystitis not excludable. Note that similar findings were seen on the previous study, which was followed by a negative HIDA scan. Endometrial biliary stent now present. Mild central intrahepatic biliary ductal dilatation despite this. Low-attenuation areas in the spleen, as described. Equivocal clinically evident previously in retrospect that much more conspicuous currently, probably due to less image artifact on the current study. These are nonspecific, could represent cysts, infarcts, areas of inflammation, much less likely neoplasm. Satisfactory position of nasogastric tube. 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 Nonspecific inflammatory changes surrounding the hips. Right hip region lipoma -s/p ERCP with stent placement 10/01 -EUS 09/30: 1. Dilated common bile duct with lots of sludge in the distal common bile duct, most probably explanation for abnormal liver function tests. 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 Depression. Anemia. Rheumatoid arthritis. History of gastritis. PLAN: monitor pt off of Ab Rx - 10/11 SP Ertapenem #7/7 10/09 SP MIcafungin #10 10/02 SP Amikacin #10 09/30 SP Flagyl #8 09/25 sp Fluconazole #3 (held due to rise ALP) 09/23 SP Meropenem #5, PO Vanco #2 09/21 SP tamiflu #10 -f/u Repeat cultures -f/u Asp ag, fungitell, Cocci ab, fungal sp cx (called lab on 10/09 for f/u on these tests; was told they are still pending and they will call [facility] for an update). Monitor CBC.; Trend WBC Monitor BMP.; Trend LFTs Monitor chest x-ray -GI, heme onc f/u Subjective Allergies: Coded Allergies: No Known Allergies (Verified , 11/18/08) Subjective SP Fiberoptic bronchoscopy, bronchoalveolar lavage, upper airway endoscopy for percutaneous tracheostomy, bronchoscopy through tracheostomy Objective Vital Signs Last 24 Hour Vital Signs Date Time Temp Pulse Resp B/P (MAP) Pulse Ox O2 Delivery O2 Flow Rate FiO2 10/14/17 12:31 77 18 40 10/14/17 11:04 78 18 40 10/14/17 09:00 79 23 107/45 99 Mechanical Ventilator 40 10/14/17 09:00 77 102/48 10/14/17 08:42 77 18 40 10/14/17 08:00 40 10/14/17 08:00 98.5 74 25 108/42 98 Mechanical Ventilator 40 98.5 10/14/17 08:00 79 10/14/17 07:00 70 21 102/48 99 Mechanical Ventilator 40 10/14/17 06:48 78 18 40 10/14/17 06:00 92 21 91/55 99 Mechanical Ventilator 40 10/14/17 05:22 78 18 40 10/14/17 05:00 74 26 94/62 99 Mechanical Ventilator 40 10/14/17 04:00 99.5 80 30 82/39 99 Mechanical Ventilator 40 99.5 10/14/17 04:00 77 10/14/17 04:00 40 10/14/17 03:30 82 18 40 10/14/17 03:00 87 22 103/45 99 Mechanical Ventilator 40 10/14/17 02:00 88 26 100/52 99 Mechanical Ventilator 40 10/14/17 01:30 72 18 40 10/14/17 01:00 75 23 104/42 99 Mechanical Ventilator 40 10/14/17 00:00 40 10/14/17 00:00 73 10/14/17 00:00 99.2 80 45 100/44 99 Mechanical Ventilator 40 99.2 10/13/17 23:00 75 45 107/46 99 Mechanical Ventilator 40 10/13/17 22:54 73 18 40 10/13/17 22:00 71 43 112/50 99 Mechanical Ventilator 40 10/13/17 21:07 70 19 40 10/13/17 21:00 70 39 112/50 99 Mechanical Ventilator 40 10/13/17 20:00 40 10/13/17 20:00 99.4 68 22 100/46 30 Mechanical Ventilator 40 99.4 10/13/17 20:00 70 10/13/17 19:30 75 18 40 10/13/17 19:00 68 22 120/56 30 Trach Collar 40 10/13/17 18:38 68 151/62 10/13/17 18:00 74 19 150/60 30 Trach Collar 40 10/13/17 17:06 73 18 40 10/13/17 17:00 79 19 135/83 30 Trach Collar 40 10/13/17 16:00 40 10/13/17 16:00 97.4 73 19 144/63 99 Trach Collar 40 97.4 10/13/17 16:00 67 10/13/17 15:00 63 26 132/63 99 Trach Collar 40 10/13/17 14:59 72 19 40 10/13/17 14:00 63 22 152/69 99 Trach Collar 40 10/13/17 13:15 65 18 40 10/13/17 13:00 64 29 141/56 99 Trach Collar 40 Height (Feet): 5 Height (Inches): 4.00 Weight (Pounds): 93 Microbiology Date/Time Source Procedure Growth Status 10/13/17 13:00 Bronchial Brushings Gram Stain - Final Resulted 10/13/17 13:00 Bronchial Brushings Aerobic Culture Pending Resulted 10/13/17 13:00 Bronchial Brushings Anaerobic Culture Pending Resulted Laboratory Tests Test 10/13/17 13:00 10/14/17 03:00 10/14/17 08:20 10/14/17 08:31 M. tuberculosis Complex DNA (PCR) Pending White Blood Count 8.9 K/UL (4.8-10.8) Red Blood Count 2.68 M/UL (4.20-5.40) L Hemoglobin 8.5 G/DL (12.0-16.0) L Hematocrit 26.4 % (37.0-47.0) L Mean Corpuscular Volume 98 FL (80-99) Mean Corpuscular Hemoglobin 31.7 PG (27.0-31.0) H Mean Corpuscular Hemoglobin Concent 32.1 G/DL (32.0-36.0) Red Cell Distribution Width 17.0 % (11.6-14.8) H Platelet Count 173 K/UL (150-450) Mean Platelet Volume 8.7 FL (6.5-10.1) Neutrophils (%) (Auto) 75.0 % (45.0-75.0) Lymphocytes (%) (Auto) 15.5 % (20.0-45.0) L Monocytes (%) (Auto) 7.0 % (1.0-10.0) Eosinophils (%) (Auto) 2.0 % (0.0-3.0) Basophils (%) (Auto) 0.5 % (0.0-2.0) Prothrombin Time 11.3 SEC (9.30-11.50) Prothromb Time International Ratio 1.1 (0.9-1.1) Sodium Level 143 MMOL/L (136-145) Potassium Level 3.4 MMOL/L (3.5-5.1) L Chloride Level 101 MMOL/L (98-107) Carbon Dioxide Level 37 MMOL/L (21-32) H Anion Gap 5 mmol/L (5-15) Blood Urea Nitrogen 30 mg/dL (7-18) H Creatinine 0.7 MG/DL (0.55-1.30) Estimat Glomerular Filtration Rate mL/min (>60) Glucose Level 120 MG/DL (74-106) H Calcium Level 7.9 MG/DL (8.5-10.1) L Phosphorus Level 4.2 MG/DL (2.5-4.9) Magnesium Level 2.0 MG/DL (1.8-2.4) Total Bilirubin 4.1 MG/DL (0.2-1.0) H Direct Bilirubin 3.3 MG/DL (0.0-0.3) H Aspartate Amino Transf (AST/SGOT) 99 U/L (15-37) H Alanine Aminotransferase (ALT/SGPT) 62 U/L (12-78) Alkaline Phosphatase 1659 U/L (46-116) H Total Protein 5.6 G/DL (6.4-8.2) L Albumin 1.6 G/DL (3.4-5.0) L Globulin 4.0 g/dL Albumin/Globulin Ratio 0.4 (1.0-2.7) L Cytomegalovirus DNA Qual (PCR) Pending Cytomegalovirus DNA PCR copies/ml Pending Cytomegalovirus DNA PCR log10 Pending Varicella-Zoster IgG Antibody Pending Varicella-Zoster IgM Antibody Pending Arterial Blood pH 7.619 (7.350-7.450) Arterial Blood Partial Pressure CO2 35.8 mmHg (35.0-45.0) Arterial Blood Partial Pressure O2 376.1 mmHg (75.0-100.0) H Arterial Blood HCO3 35.7 mmol/L (22.0-26.0) H Arterial Blood Oxygen Saturation 99.3 % (92.0-98.0) H Arterial Blood Base Excess 13.5 Luis A Test Positive Current Medications Medications (Trade) Dose Ordered Sig/Hermes Route PRN Reason Start Time Stop Time Status Last Admin Dose Admin Acetaminophen (Tylenol) 650 mg Q6H PRN NG Fever/Headache/Mild Pain 10/11/17 08:30 11/10/17 08:29 10/14/17 01:09 Albuterol/ Ipratropium (Albuterol/ Ipratropium) 3 ml Q4H PRN HHN shortness of breath 10/11/17 08:30 10/16/17 08:29 Clonidine HCl (Catapres Tab) 0.1 mg Q4H PRN ORAL SBP>160 UNRELIEVED BY HYDRALAZ 09/16/17 16:45 10/15/17 16:59 Clotrimazole (Lotrimin) 1 applic EVERY 12 HOURS TOPIC 10/10/17 23:00 11/09/17 22:59 10/14/17 09:21 Diltiazem HCl (Cardizem) 30 mg BID NG 10/11/17 09:00 11/10/17 08:59 10/13/17 18:38 Furosemide (Lasix) 40 mg DAILY IV 10/13/17 09:00 11/12/17 08:59 10/14/17 09:21 Insulin Aspart (NovoLOG) EVERY 6 HOURS SUBQ 09/17/17 12:00 10/17/17 11:59 10/14/17 00:52 Ketotifen Fumarate (Zatidor) 1 drop DAILY BOTH EYES 09/26/17 09:00 10/25/17 08:59 10/14/17 09:21 Pantoprazole (Protonix) 40 mg DAILY IVP 10/02/17 09:00 11/01/17 08:59 10/14/17 09:20 Polyethylene Glycol (Miralax) 17 gm BEDTIME ORAL 09/14/17 21:00 10/14/17 20:59 10/11/17 21:44 Potassium Chloride (K-Dur) 20 meq DAILY ORAL 10/13/17 09:00 11/12/17 08:59 10/14/17 09:21 Edis Hunter MD Oct 14, 2017 12:55
--- NOTE | 2017-10-14 15:12 | Cardiac Electrophysiology PN ---
Assessment/Plan Assessment/Plan 1. Vent dependent Respiratory failure, due to underlying ARDS , pneumonia. Already ruled out for myocardial infarction. Now on 45% Fio2 with PEEP of 5. S/P Tracheostomy by Dr Echevarria and Bronchoscopy by Dr Parekh 2. Left bundle-branch block. No evidence of advanced heart block. 3. HTN and diastolic dysfunction. Echo EF 55% On Cardizem 30 BID 4. Hypernatremia and Azotemia. F/U per Dr. Mayer 5. Pneumonia and sepsis on IV antibiotics by Dr. Hunter. 6. Psychiatric disorder. 7. Anasarca. 3rd spacing. 8. Anemia with Hb 6.6 s/p PRBC. CT chest abdomen and pelvis without contrast no acute finding S/P EGD by Dr Walton. PEG by Dr. Encinas 9. Severe thrombocytopenia. S/P platelet transfusion 10. Abnormal LFT, Biliary obstruction, possible cholangitis. S/P ERCP. CBD sludge. S/P repeat ERCP and stent by Dr Walton Bilirubin down to 4 11. High INR 3.5 likely due to hepatic failure. S/P FFP and Vit K. INR 1 now DW RN Subjective Subjective Intubated on vent via tracheostomy in ICU. No SVT or VT. Objective Last 24 Hour Vital Signs Date Time Temp Pulse Resp B/P (MAP) Pulse Ox O2 Delivery O2 Flow Rate FiO2 10/14/17 14:41 81 18 40 10/14/17 12:31 77 18 40 10/14/17 11:04 78 18 40 10/14/17 09:00 79 23 107/45 99 Mechanical Ventilator 40 10/14/17 09:00 77 102/48 10/14/17 08:42 77 18 40 10/14/17 08:00 40 10/14/17 08:00 98.5 74 25 108/42 98 Mechanical Ventilator 40 98.5 10/14/17 08:00 79 10/14/17 07:00 70 21 102/48 99 Mechanical Ventilator 40 10/14/17 06:48 78 18 40 10/14/17 06:00 92 21 91/55 99 Mechanical Ventilator 40 10/14/17 05:22 78 18 40 10/14/17 05:00 74 26 94/62 99 Mechanical Ventilator 40 10/14/17 04:00 99.5 80 30 82/39 99 Mechanical Ventilator 40 99.5 10/14/17 04:00 77 10/14/17 04:00 40 10/14/17 03:30 82 18 40 10/14/17 03:00 87 22 103/45 99 Mechanical Ventilator 40 10/14/17 02:00 88 26 100/52 99 Mechanical Ventilator 40 10/14/17 01:30 72 18 40 10/14/17 01:00 75 23 104/42 99 Mechanical Ventilator 40 10/14/17 00:00 40 10/14/17 00:00 73 10/14/17 00:00 99.2 80 45 100/44 99 Mechanical Ventilator 40 99.2 10/13/17 23:00 75 45 107/46 99 Mechanical Ventilator 40 10/13/17 22:54 73 18 40 10/13/17 22:00 71 43 112/50 99 Mechanical Ventilator 40 10/13/17 21:07 70 19 40 10/13/17 21:00 70 39 112/50 99 Mechanical Ventilator 40 10/13/17 20:00 40 10/13/17 20:00 99.4 68 22 100/46 30 Mechanical Ventilator 40 99.4 10/13/17 20:00 70 10/13/17 19:30 75 18 40 10/13/17 19:00 68 22 120/56 30 Trach Collar 40 10/13/17 18:38 68 151/62 10/13/17 18:00 74 19 150/60 30 Trach Collar 40 10/13/17 17:06 73 18 40 10/13/17 17:00 79 19 135/83 30 Trach Collar 40 10/13/17 16:00 40 10/13/17 16:00 97.4 73 19 144/63 99 Trach Collar 40 97.4 10/13/17 16:00 67 Intake and Output 10/13/17 10/14/17 19:00 07:00 Intake Total 140 ml 540 ml Output Total 1740 ml 605 ml Balance -1600 ml -65 ml Intake Free Water 70 ml Tube Feeding 90 ml 470 ml Other 50 ml Output Urine Total 1740 ml 605 ml # Bowel Movements 1 3 Laboratory Tests Test 10/14/17 03:00 10/14/17 08:20 10/14/17 08:31 White Blood Count 8.9 K/UL (4.8-10.8) Red Blood Count 2.68 M/UL (4.20-5.40) L Hemoglobin 8.5 G/DL (12.0-16.0) L Hematocrit 26.4 % (37.0-47.0) L Mean Corpuscular Volume 98 FL (80-99) Mean Corpuscular Hemoglobin 31.7 PG (27.0-31.0) H Mean Corpuscular Hemoglobin Concent 32.1 G/DL (32.0-36.0) Red Cell Distribution Width 17.0 % (11.6-14.8) H Platelet Count 173 K/UL (150-450) Mean Platelet Volume 8.7 FL (6.5-10.1) Neutrophils (%) (Auto) 75.0 % (45.0-75.0) Lymphocytes (%) (Auto) 15.5 % (20.0-45.0) L Monocytes (%) (Auto) 7.0 % (1.0-10.0) Eosinophils (%) (Auto) 2.0 % (0.0-3.0) Basophils (%) (Auto) 0.5 % (0.0-2.0) Prothrombin Time 11.3 SEC (9.30-11.50) Prothromb Time International Ratio 1.1 (0.9-1.1) Sodium Level 143 MMOL/L (136-145) Potassium Level 3.4 MMOL/L (3.5-5.1) L Chloride Level 101 MMOL/L (98-107) Carbon Dioxide Level 37 MMOL/L (21-32) H Anion Gap 5 mmol/L (5-15) Blood Urea Nitrogen 30 mg/dL (7-18) H Creatinine 0.7 MG/DL (0.55-1.30) Estimat Glomerular Filtration Rate mL/min (>60) Glucose Level 120 MG/DL (74-106) H Calcium Level 7.9 MG/DL (8.5-10.1) L Phosphorus Level 4.2 MG/DL (2.5-4.9) Magnesium Level 2.0 MG/DL (1.8-2.4) Total Bilirubin 4.1 MG/DL (0.2-1.0) H Direct Bilirubin 3.3 MG/DL (0.0-0.3) H Aspartate Amino Transf (AST/SGOT) 99 U/L (15-37) H Alanine Aminotransferase (ALT/SGPT) 62 U/L (12-78) Alkaline Phosphatase 1659 U/L (46-116) H Total Protein 5.6 G/DL (6.4-8.2) L Albumin 1.6 G/DL (3.4-5.0) L Globulin 4.0 g/dL Albumin/Globulin Ratio 0.4 (1.0-2.7) L Cytomegalovirus DNA Qual (PCR) Pending Cytomegalovirus DNA PCR copies/ml Pending Cytomegalovirus DNA PCR log10 Pending Varicella-Zoster IgG Antibody Pending Varicella-Zoster IgM Antibody Pending Arterial Blood pH 7.619 (7.350-7.450) Arterial Blood Partial Pressure CO2 35.8 mmHg (35.0-45.0) Arterial Blood Partial Pressure O2 376.1 mmHg (75.0-100.0) H Arterial Blood HCO3 35.7 mmol/L (22.0-26.0) H Arterial Blood Oxygen Saturation 99.3 % (92.0-98.0) H Arterial Blood Base Excess 13.5 Luis A Test Positive Microbiology Date/Time Source Procedure Growth Status 10/13/17 13:00 Body Fluid AFB Specimen Processing Tissue - Final Resulted 10/13/17 13:00 Body Fluid Acid Fast Bacilli Smear - Final Resulted 10/13/17 13:00 Body Fluid Acid Fast Bacilli Culture Pending Resulted 10/13/17 13:00 Bronchial Brushings Gram Stain - Final Resulted 10/13/17 13:00 Bronchial Brushings Aerobic Culture Pending Resulted 10/13/17 13:00 Bronchial Brushings Anaerobic Culture Pending Resulted Objective HEAD AND NECK: Tracheostomy in place. LUNGS: Coarse rhonchi bilaterally CARDIOVASCULAR: Tachy S1 and S2.No murmur ABDOMEN: Soft. EXTREMITIES: No edema. Charlie Darnell MD Oct 14, 2017 15:12
--- NOTE | 2017-10-14 16:53 | Nephrology Progress Note ---
Assessment/Plan Problem List: (1) ARDS (adult respiratory distress syndrome) (2) Electrolyte imbalance (3) Thrombocytopenia Assessment (1) ARDS (adult respiratory distress syndrome) (2) Aspiration pneumonia (3) Protein-calorie malnutrition, severe (4) Diabetes mellitus (5) Anemia , aplastic by history (6) DM (7) UTI (8) Electrolyte imbalance (9) HTN (10) Depression (11) RA . Plan stable agree with diuresis and K supplement due trach ? in am k via NGT as needed water via NGT Adjust BP meds K and Phos supplement as needed Monitor renal parameters and urine output avoid nephrotoxics per orders discussed with RN Left ventricular ejection fraction estimated to be 55 %. Subjective ROS Limited/Unobtainable: Yes Objective Objective Last 24 Hour Vital Signs Date Time Temp Pulse Resp B/P (MAP) Pulse Ox O2 Delivery O2 Flow Rate FiO2 10/14/17 16:00 78 10/14/17 16:00 40 10/14/17 16:00 98.7 74 25 109/42 98 Mechanical Ventilator 40 98.7 10/14/17 15:00 82 22 107/45 99 Mechanical Ventilator 40 10/14/17 14:41 81 18 40 10/14/17 14:00 79 23 112/45 100 Mechanical Ventilator 40 10/14/17 13:00 77 24 107/45 99 Mechanical Ventilator 40 10/14/17 12:31 77 18 40 10/14/17 12:00 82 10/14/17 12:00 40 10/14/17 12:00 98.2 75 25 110/46 98 Mechanical Ventilator 40 98.2 10/14/17 11:04 78 18 40 10/14/17 11:00 79 22 107/45 99 Mechanical Ventilator 40 10/14/17 10:00 80 23 108/50 98 Mechanical Ventilator 40 10/14/17 09:00 79 23 107/45 99 Mechanical Ventilator 40 10/14/17 09:00 77 102/48 10/14/17 08:42 77 18 40 10/14/17 08:00 40 10/14/17 08:00 98.5 74 25 108/42 98 Mechanical Ventilator 40 98.5 10/14/17 08:00 79 10/14/17 07:00 70 21 102/48 99 Mechanical Ventilator 40 10/14/17 06:48 78 18 40 4/3/18 06:00 92 21 91/55 99 Mechanical Ventilator 40 10/14/17 05:22 78 18 40 10/14/17 05:00 74 26 94/62 99 Mechanical Ventilator 40 10/14/17 04:00 99.5 80 30 82/39 99 Mechanical Ventilator 40 99.5 10/14/17 04:00 77 10/14/17 04:00 40 10/14/17 03:30 82 18 40 10/14/17 03:00 87 22 103/45 99 Mechanical Ventilator 40 10/14/17 02:00 88 26 100/52 99 Mechanical Ventilator 40 10/14/17 01:30 72 18 40 10/14/17 01:00 75 23 104/42 99 Mechanical Ventilator 40 10/14/17 00:00 40 10/14/17 00:00 73 10/14/17 00:00 99.2 80 45 100/44 99 Mechanical Ventilator 40 99.2 10/13/17 23:00 75 45 107/46 99 Mechanical Ventilator 40 10/13/17 22:54 73 18 40 10/13/17 22:00 71 43 112/50 99 Mechanical Ventilator 40 10/13/17 21:07 70 19 40 10/13/17 21:00 70 39 112/50 99 Mechanical Ventilator 40 10/13/17 20:00 40 10/13/17 20:00 99.4 68 22 100/46 30 Mechanical Ventilator 40 99.4 10/13/17 20:00 70 10/13/17 19:30 75 18 40 10/13/17 19:00 68 22 120/56 30 Trach Collar 40 10/13/17 18:38 68 151/62 10/13/17 18:00 74 19 150/60 30 Trach Collar 40 10/13/17 17:06 73 18 40 10/13/17 17:00 79 19 135/83 30 Trach Collar 40 Intake and Output 10/13/17 10/14/17 19:00 07:00 Intake Total 140 ml 540 ml Output Total 1740 ml 605 ml Balance -1600 ml -65 ml Intake Free Water 70 ml Tube Feeding 90 ml 470 ml Other 50 ml Output Urine Total 1740 ml 605 ml # Bowel Movements 1 3 Laboratory Tests 10/14/17 03:00: White Blood Count 8.9, Red Blood Count 2.68L, Hemoglobin 8.5L, Hematocrit 26.4L , Mean Corpuscular Volume 98, Mean Corpuscular Hemoglobin 31.7H, Mean Corpuscular Hemoglobin Concent 32.1, Red Cell Distribution Width 17.0H, Platelet Count 173, Mean Platelet Volume 8.7, Neutrophils (%) (Auto) 75.0, Lymphocytes (%) (Auto) 15.5L, Monocytes (%) (Auto) 7.0, Eosinophils (%) (Auto) 2.0, Basophils (%) (Auto) 0.5, Prothrombin Time 11.3, Prothromb Time International Ratio 1.1, Sodium Level 143, Potassium Level 3.4L, Chloride Level 101, Carbon Dioxide Level 37H, Anion Gap 5, Blood Urea Nitrogen 30H, Creatinine 0.7, Estimat Glomerular Filtration Rate , Glucose Level 120H, Calcium Level 7.9L , Phosphorus Level 4.2, Magnesium Level 2.0, Total Bilirubin 4.1H, Direct Bilirubin 3.3H, Aspartate Amino Transf (AST/SGOT) 99H, Alanine Aminotransferase (ALT/SGPT) 62, Alkaline Phosphatase 1659H, Total Protein 5.6L, Albumin 1.6L, Globulin 4.0, Albumin/Globulin Ratio 0.4L 10/14/17 08:20: Cytomegalovirus DNA Qual (PCR) [Pending], Cytomegalovirus DNA PCR copies/ml [ Pending], Cytomegalovirus DNA PCR log10 [Pending], Varicella-Zoster IgG Antibody [Pending], Varicella-Zoster IgM Antibody [Pending] 10/14/17 08:31: Arterial Blood pH 7.619*H, Arterial Blood Partial Pressure CO2 35.8, Arterial Blood Partial Pressure O2 376.1H, Arterial Blood HCO3 35.7H, Arterial Blood Oxygen Saturation 99.3H, Arterial Blood Base Excess 13.5, Luis A Test Positive Height (Feet): 5 Height (Inches): 4.00 Weight (Pounds): 93 General Appearance: no apparent distress Neck: other - trached Cardiovascular: normal rate Respiratory/Chest: decreased breath sounds Abdomen: distended Objective no change YAEL HANSEN Oct 14, 2017 16:53
[2017-10-14] MEDS ORDERED: Albuterol/Ipratropium 3ml neb HHN PRN (17:00)
--- NOTE | 2017-10-14 17:47 | Internal Med Progress Note ---
Subjective Date of Service: Oct 14, 2017 Physician Name Sina Bowens Attending Physician Jesus Barahona MD Current Medications Medications (Trade) Dose Ordered Sig/Hermes Route PRN Reason Start Time Stop Time Status Last Admin Dose Admin Acetaminophen (Tylenol) 650 mg Q6H PRN NG Fever/Headache/Mild Pain 10/14/17 17:00 11/10/17 16:59 Albuterol/ Ipratropium (Albuterol/ Ipratropium) 3 ml Q4H PRN HHN shortness of breath 10/14/17 17:00 10/16/17 16:59 Clonidine HCl (Catapres Tab) 0.1 mg Q4H PRN ORAL SBP>160 UNRELIEVED BY HYDRALAZ 10/14/17 17:00 10/15/17 16:59 Clotrimazole (Lotrimin) 1 applic EVERY 12 HOURS TOPIC 10/14/17 21:00 11/09/17 22:59 Diltiazem HCl (Cardizem) 30 mg BID NG 10/14/17 18:00 11/10/17 08:59 Furosemide (Lasix) 40 mg DAILY IV 10/15/17 09:00 11/12/17 08:59 Insulin Aspart (NovoLOG) EVERY 6 HOURS SUBQ 10/14/17 18:00 10/17/17 11:59 Ketotifen Fumarate (Zatidor) 1 drop DAILY BOTH EYES 10/15/17 09:00 10/25/17 08:59 Pantoprazole (Protonix) 40 mg DAILY IVP 10/15/17 09:00 11/01/17 08:59 Polyethylene Glycol (Miralax) 17 gm BEDTIME ORAL 10/14/17 21:00 10/14/17 21:30 Potassium Chloride (K-Dur) 20 meq DAILY ORAL 10/15/17 09:00 11/12/17 08:59 Allergies: Coded Allergies: No Known Allergies (Verified , 11/18/08) ROS Limited/Unobtainable: Yes Subjective 76 YO F admitted with Shortness of breath, now respiratory failure. Intubated and sedated. Cover for Internal Med-Dr. Barahona. ICU . S/P ERCP 10/08/17. S/P Tracheostomy and bronchoscopy 10/13/17 Objective Last Vital Signs Date Time Temp Pulse Resp B/P (MAP) Pulse Ox O2 Delivery O2 Flow Rate FiO2 10/14/17 17:11 82 20 40 10/14/17 17:00 110/50 99 Mechanical Ventilator 10/14/17 16:00 98.7 98.7 Laboratory Tests Test 10/14/17 03:00 10/14/17 08:20 10/14/17 08:31 White Blood Count 8.9 K/UL (4.8-10.8) Red Blood Count 2.68 M/UL (4.20-5.40) L Hemoglobin 8.5 G/DL (12.0-16.0) L Hematocrit 26.4 % (37.0-47.0) L Mean Corpuscular Volume 98 FL (80-99) Mean Corpuscular Hemoglobin 31.7 PG (27.0-31.0) H Mean Corpuscular Hemoglobin Concent 32.1 G/DL (32.0-36.0) Red Cell Distribution Width 17.0 % (11.6-14.8) H Platelet Count 173 K/UL (150-450) Mean Platelet Volume 8.7 FL (6.5-10.1) Neutrophils (%) (Auto) 75.0 % (45.0-75.0) Lymphocytes (%) (Auto) 15.5 % (20.0-45.0) L Monocytes (%) (Auto) 7.0 % (1.0-10.0) Eosinophils (%) (Auto) 2.0 % (0.0-3.0) Basophils (%) (Auto) 0.5 % (0.0-2.0) Prothrombin Time 11.3 SEC (9.30-11.50) Prothromb Time International Ratio 1.1 (0.9-1.1) Sodium Level 143 MMOL/L (136-145) Potassium Level 3.4 MMOL/L (3.5-5.1) L Chloride Level 101 MMOL/L (98-107) Carbon Dioxide Level 37 MMOL/L (21-32) H Anion Gap 5 mmol/L (5-15) Blood Urea Nitrogen 30 mg/dL (7-18) H Creatinine 0.7 MG/DL (0.55-1.30) Estimat Glomerular Filtration Rate mL/min (>60) Glucose Level 120 MG/DL (74-106) H Calcium Level 7.9 MG/DL (8.5-10.1) L Phosphorus Level 4.2 MG/DL (2.5-4.9) Magnesium Level 2.0 MG/DL (1.8-2.4) Total Bilirubin 4.1 MG/DL (0.2-1.0) H Direct Bilirubin 3.3 MG/DL (0.0-0.3) H Aspartate Amino Transf (AST/SGOT) 99 U/L (15-37) H Alanine Aminotransferase (ALT/SGPT) 62 U/L (12-78) Alkaline Phosphatase 1659 U/L (46-116) H Total Protein 5.6 G/DL (6.4-8.2) L Albumin 1.6 G/DL (3.4-5.0) L Globulin 4.0 g/dL Albumin/Globulin Ratio 0.4 (1.0-2.7) L Cytomegalovirus DNA Qual (PCR) Pending Cytomegalovirus DNA PCR copies/ml Pending Cytomegalovirus DNA PCR log10 Pending Varicella-Zoster IgG Antibody Pending Varicella-Zoster IgM Antibody Pending Arterial Blood pH 7.619 (7.350-7.450) Arterial Blood Partial Pressure CO2 35.8 mmHg (35.0-45.0) Arterial Blood Partial Pressure O2 376.1 mmHg (75.0-100.0) H Arterial Blood HCO3 35.7 mmol/L (22.0-26.0) H Arterial Blood Oxygen Saturation 99.3 % (92.0-98.0) H Arterial Blood Base Excess 13.5 Luis A Test Positive Microbiology Date/Time Source Procedure Growth Status 10/13/17 13:00 Body Fluid AFB Specimen Processing Tissue - Final Resulted 10/13/17 13:00 Body Fluid Acid Fast Bacilli Smear - Final Resulted 10/13/17 13:00 Body Fluid Acid Fast Bacilli Culture Pending Resulted 10/13/17 13:00 Bronchial Brushings Gram Stain - Final Resulted 10/13/17 13:00 Bronchial Brushings Aerobic Culture Pending Resulted 10/13/17 13:00 Bronchial Brushings Anaerobic Culture Pending Resulted Intake and Output 10/13/17 10/14/17 19:00 07:00 Intake Total 140 ml 540 ml Output Total 1740 ml 605 ml Balance -1600 ml -65 ml Intake Free Water 70 ml Tube Feeding 90 ml 470 ml Other 50 ml Output Urine Total 1740 ml 605 ml # Bowel Movements 1 3 Objective General Appearance: lethargic, thin EENT: normal ENT inspection Neck: Trach; non-tender, normal alignment, supple Cardiovascular: normal peripheral pulses, normal rate, regular rhythm, no gallop/murmur, no JVD Respiratory/Chest: Mechanical vent; respiratory distress, crackles/rales, rhonchi - bilaterally, expiratory wheezing Abdomen: normal bowel sounds, non tender, soft, no organomegaly, no mass Skin: normal pigmentation, warm/dry Assessment/Plan Problem List: (1) HTN (hypertension) Assessment & Plan: Currently hypotensive. (2) Arthritis, rheumatoid (3) Parkinsons disease (4) Aplastic anemia (5) GERD (gastroesophageal reflux disease) (6) Respiratory failure Assessment & Plan: S/P Tracheostomy and broncholsopy 10/13/17. Cont vent per pulmonary (7) Pneumonia (8) Dyspnea (9) Sepsis Assessment & Plan: Blood culture neg. Continue Amikacin, micafungin and flagyl per ID (10) ARDS (adult respiratory distress syndrome) Assessment & Plan: See pulmonary note (11) UTI (urinary tract infection) Assessment & Plan: E.Coli. Continue abx per ID (12) Anemia Assessment & Plan: S/P Transfusion 2 units PRBC (13) Diabetes mellitus, type II Assessment & Plan: Continue novolog sliding scale (14) Leukocytosis Assessment & Plan: Worsening. See ID note. Start amikacin and fluconazole (15) Thrombocytopenia (16) Gallbladder sludge Assessment & Plan: s/P ERCP 10/01, 10/07/17 and 10/08/17 (17) Coagulopathy Assessment & Plan: S/P FFP and Vit K Status: progressing Assessment/Plan Transfer to [facility] today SINA BOWENS Oct 14, 2017 17:47
--- NOTE | 2017-10-14 19:13 | General Progress Note ---
Assessment/Plan Assessment/Plan #. Pancytopenia --> WBC count and platelet counts are within normal levels now. Hemoglobin low but remains above goal. --> Transfuse platelets if <20k --> Monitor and trend cbc daily. #. Coagulopathy - potentially related to DIC early onset, review hapto, inr repeat, fibrinogen, DIC panel --> administer FFP 4 units and vitamin k repeat prior to procedure --> DW pulm Dr. Parekh --> Likely related to infection versus other cause. On antibiotics. #. Anemia due to underlying chronic disease. Continue to closely monitor. --> Hemoglobin goal is above 7. --> Occult blood detected. Consider GI recs. --> Transfuse as necessary --> Blood transfusion not required unless symptomatic or hgb below goal. #. Leukocytosis likely related to underlying pneumonia infection. --> Resolved on antibiotic treatment. #. Thrombocytopenia, severe and progressive, acute onset, likely secondary to underlying infection, aspiration, hit was negative --> Duplex of the lower extremities is negative, therefore less likely HIT and other causes are more likely such as underlying infection. --> Platelets goal >20k, transfuse if necessary. --> On antibiotics as per ID --> Platelet count has been downtrending, monitor closely. #. Community-acquired pneumonia versus hospital-acquired. --> The patient on broad-spectrum antibiotics. --> Improved. --> Urine culture growing E. coli. Continue to closely monitor. #. Transaminitis. She has been seen by GI Service. Continue to closely monitor. #. Low-grade fever. Closely observe. #. Encephalopathy. Subjective Date patient seen: Oct 13, 2017 Constitutional: Denies: no symptoms, chills, diaphoresis, fever, malaise, weakness, other HEENT: Denies: no symptoms, eye pain, blurred vision, tearing, double vision, ear pain, ear discharge, nose pain, nose congestion, throat pain, throat swelling, mouth pain, mouth swelling, other Cardiovascular: Denies: no symptoms, chest pain, edema, irregular heart rate, lightheadedness, palpitations, syncope, other Respiratory: Denies: no symptoms, cough, orthopnea, shortness of breath, SOB with excertion, SOB at rest, sputum, stridor, wheezing, other Gastrointestinal/Abdominal: Denies: no symptoms, abdomen distended, abdominal pain, black stools, tarry stools, blood in stool, constipated, diarrhea, difficulty swallowing, nausea, poor appetite, poor fluid intake, rectal bleeding , vomiting, other Genitourinary: Denies: no symptoms, burning, discharge, frequency, flank pain, hematuria, incontinence, pain, urgency, other 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: Denies: no symptoms, anxiety, depressed, emotional problems, headache, numbness, paresthesia, pre-existing deficit, seizure, tingling, tremors, weakness, other Endocrine: Denies: no symptoms, excessive sweating, flushing, intolerance to cold, intolerance to heat, increased hunger, increased thirst, increased urine, unexplained weight gain, unexplained weight loss, other Hematologic/Lymphatic: Reports: anemia Allergies: Coded Allergies: No Known Allergies (Verified , 11/18/08) Subjective Intubated in ICU. No new events overnight. On pain control. Objective Last 24 Hour Vital Signs Date Time Temp Pulse Resp B/P (MAP) Pulse Ox O2 Delivery O2 Flow Rate FiO2 10/14/17 18:21 80 133/74 10/14/17 18:00 80 133/74 10/14/17 17:11 82 20 40 10/14/17 17:00 81 23 110/50 99 Mechanical Ventilator 40 10/14/17 16:00 78 10/14/17 16:00 40 10/14/17 16:00 98.7 74 25 109/42 98 Mechanical Ventilator 40 98.7 10/14/17 15:00 82 22 107/45 99 Mechanical Ventilator 40 10/14/17 14:41 81 18 40 10/14/17 14:00 79 23 112/45 100 Mechanical Ventilator 40 10/14/17 13:00 77 24 107/45 99 Mechanical Ventilator 40 10/14/17 12:31 77 18 40 10/14/17 12:00 82 10/14/17 12:00 40 10/14/17 12:00 98.2 75 25 110/46 98 Mechanical Ventilator 40 98.2 10/14/17 11:04 78 18 40 10/14/17 11:00 79 22 107/45 99 Mechanical Ventilator 40 10/14/17 10:00 80 23 108/50 98 Mechanical Ventilator 40 10/14/17 09:00 79 23 107/45 99 Mechanical Ventilator 40 10/14/17 09:00 77 102/48 4/3/18 08:42 77 18 40 10/14/17 08:00 40 10/14/17 08:00 98.5 74 25 108/42 98 Mechanical Ventilator 40 98.5 10/14/17 08:00 79 10/14/17 07:00 70 21 102/48 99 Mechanical Ventilator 40 10/14/17 06:48 78 18 40 10/14/17 06:00 92 21 91/55 99 Mechanical Ventilator 40 10/14/17 05:22 78 18 40 10/14/17 05:00 74 26 94/62 99 Mechanical Ventilator 40 10/14/17 04:00 99.5 80 30 82/39 99 Mechanical Ventilator 40 99.5 10/14/17 04:00 77 10/14/17 04:00 40 10/14/17 03:30 82 18 40 10/14/17 03:00 87 22 103/45 99 Mechanical Ventilator 40 10/14/17 02:00 88 26 100/52 99 Mechanical Ventilator 40 10/14/17 01:30 72 18 40 10/14/17 01:00 75 23 104/42 99 Mechanical Ventilator 40 10/14/17 00:00 40 10/14/17 00:00 73 10/14/17 00:00 99.2 80 45 100/44 99 Mechanical Ventilator 40 99.2 10/13/17 23:00 75 45 107/46 99 Mechanical Ventilator 40 10/13/17 22:54 73 18 40 10/13/17 22:00 71 43 112/50 99 Mechanical Ventilator 40 10/13/17 21:07 70 19 40 10/13/17 21:00 70 39 112/50 99 Mechanical Ventilator 40 10/13/17 20:00 40 10/13/17 20:00 99.4 68 22 100/46 30 Mechanical Ventilator 40 99.4 10/13/17 20:00 70 10/13/17 19:30 75 18 40 Intake and Output 10/13/17 10/14/17 19:00 07:00 Intake Total 140 ml 540 ml Output Total 1740 ml 605 ml Balance -1600 ml -65 ml Intake Free Water 70 ml Tube Feeding 90 ml 470 ml Other 50 ml Output Urine Total 1740 ml 605 ml # Bowel Movements 1 3 Laboratory Tests 10/14/17 03:00: White Blood Count 8.9, Red Blood Count 2.68L, Hemoglobin 8.5L, Hematocrit 26.4L , Mean Corpuscular Volume 98, Mean Corpuscular Hemoglobin 31.7H, Mean Corpuscular Hemoglobin Concent 32.1, Red Cell Distribution Width 17.0H, Platelet Count 173, Mean Platelet Volume 8.7, Neutrophils (%) (Auto) 75.0, Lymphocytes (%) (Auto) 15.5L, Monocytes (%) (Auto) 7.0, Eosinophils (%) (Auto) 2.0, Basophils (%) (Auto) 0.5, Prothrombin Time 11.3, Prothromb Time International Ratio 1.1, Sodium Level 143, Potassium Level 3.4L, Chloride Level 101, Carbon Dioxide Level 37H, Anion Gap 5, Blood Urea Nitrogen 30H, Creatinine 0.7, Estimat Glomerular Filtration Rate , Glucose Level 120H, Calcium Level 7.9L , Phosphorus Level 4.2, Magnesium Level 2.0, Total Bilirubin 4.1H, Direct Bilirubin 3.3H, Aspartate Amino Transf (AST/SGOT) 99H, Alanine Aminotransferase (ALT/SGPT) 62, Alkaline Phosphatase 1659H, Total Protein 5.6L, Albumin 1.6L, Globulin 4.0, Albumin/Globulin Ratio 0.4L 10/14/17 08:20: Cytomegalovirus DNA Qual (PCR) [Pending], Cytomegalovirus DNA PCR copies/ml [ Pending], Cytomegalovirus DNA PCR log10 [Pending], Varicella-Zoster IgG Antibody [Pending], Varicella-Zoster IgM Antibody [Pending] 10/14/17 08:31: Arterial Blood pH 7.619*H, Arterial Blood Partial Pressure CO2 35.8, Arterial Blood Partial Pressure O2 376.1H, Arterial Blood HCO3 35.7H, Arterial Blood Oxygen Saturation 99.3H, Arterial Blood Base Excess 13.5, Luis A Test Positive Height (Feet): 5 Height (Inches): 4.00 Weight (Pounds): 93 General Appearance: confused Respiratory/Chest: decreased breath sounds Edema: trace edema Johnny Sinha MD Oct 14, 2017 19:13
[2017-10-14] MEDS ORDERED: Miralax 17gm pkt ORAL SCH (21:00)
--- NOTE | 2017-10-14 21:44 | General Progress Note ---
Assessment/Plan Assessment/Plan Assessment - Resp failure / ARDS / PNA - s/p trach - Abnormal LFT, Biliary obstruction - s/p stent - Jaundice - bili improved, but Alk phos higher today - Anemia with OB (+) stools - coagulopathy - improved - Malnutrition - hypernatremia - AMS - improved Recommendations - follow labs - transfuse PRN - Elevate HOB - Vent care - Monitor labs - abx - follow LFT - PEG , if family agrees Subjective Allergies: Coded Allergies: No Known Allergies (Verified , 11/18/08) Subjective Above noted doing better today s/p trach discussed with brother re PEG placement message left with nephew re PEG LFT noted - alk phos still rising Objective Last 24 Hour Vital Signs Date Time Temp Pulse Resp B/P (MAP) Pulse Ox O2 Delivery O2 Flow Rate FiO2 10/14/17 19:04 88 33 40 10/14/17 18:21 80 133/74 10/14/17 18:00 80 133/74 10/14/17 17:11 82 20 40 10/14/17 17:00 81 23 110/50 99 Mechanical Ventilator 40 10/14/17 16:00 78 10/14/17 16:00 40 10/14/17 16:00 98.7 74 25 109/42 98 Mechanical Ventilator 40 98.7 10/14/17 15:00 82 22 107/45 99 Mechanical Ventilator 40 10/14/17 14:41 81 18 40 10/14/17 14:00 79 23 112/45 100 Mechanical Ventilator 40 10/14/17 13:00 77 24 107/45 99 Mechanical Ventilator 40 10/14/17 12:31 77 18 40 10/14/17 12:00 82 10/14/17 12:00 40 10/14/17 12:00 98.2 75 25 110/46 98 Mechanical Ventilator 40 98.2 10/14/17 11:04 78 18 40 10/14/17 11:00 79 22 107/45 99 Mechanical Ventilator 40 10/14/17 10:00 80 23 108/50 98 Mechanical Ventilator 40 10/14/17 09:00 79 23 107/45 99 Mechanical Ventilator 40 10/14/17 09:00 77 102/48 10/14/17 08:42 77 18 40 10/14/17 08:00 40 10/14/17 08:00 98.5 74 25 108/42 98 Mechanical Ventilator 40 98.5 10/14/17 08:00 79 10/14/17 07:00 70 21 102/48 99 Mechanical Ventilator 40 10/14/17 06:48 78 18 40 10/14/17 06:00 92 21 91/55 99 Mechanical Ventilator 40 10/14/17 05:22 78 18 40 10/14/17 05:00 74 26 94/62 99 Mechanical Ventilator 40 10/14/17 04:00 99.5 80 30 82/39 99 Mechanical Ventilator 40 99.5 10/14/17 04:00 77 10/14/17 04:00 40 10/14/17 03:30 82 18 40 10/14/17 03:00 87 22 103/45 99 Mechanical Ventilator 40 10/14/17 02:00 88 26 100/52 99 Mechanical Ventilator 40 10/14/17 01:30 72 18 40 10/14/17 01:00 75 23 104/42 99 Mechanical Ventilator 40 10/14/17 00:00 40 10/14/17 00:00 73 10/14/17 00:00 99.2 80 45 100/44 99 Mechanical Ventilator 40 99.2 10/13/17 23:00 75 45 107/46 99 Mechanical Ventilator 40 10/13/17 22:54 73 18 40 10/13/17 22:00 71 43 112/50 99 Mechanical Ventilator 40 Intake and Output 10/13/17 10/14/17 19:00 07:00 Intake Total 140 ml 540 ml Output Total 1740 ml 605 ml Balance -1600 ml -65 ml Intake Free Water 70 ml Tube Feeding 90 ml 470 ml Other 50 ml Output Urine Total 1740 ml 605 ml # Bowel Movements 1 3 Laboratory Tests 10/14/17 03:00: White Blood Count 8.9, Red Blood Count 2.68L, Hemoglobin 8.5L, Hematocrit 26.4L , Mean Corpuscular Volume 98, Mean Corpuscular Hemoglobin 31.7H, Mean Corpuscular Hemoglobin Concent 32.1, Red Cell Distribution Width 17.0H, Platelet Count 173, Mean Platelet Volume 8.7, Neutrophils (%) (Auto) 75.0, Lymphocytes (%) (Auto) 15.5L, Monocytes (%) (Auto) 7.0, Eosinophils (%) (Auto) 2.0, Basophils (%) (Auto) 0.5, Prothrombin Time 11.3, Prothromb Time International Ratio 1.1, Sodium Level 143, Potassium Level 3.4L, Chloride Level 101, Carbon Dioxide Level 37H, Anion Gap 5, Blood Urea Nitrogen 30H, Creatinine 0.7, Estimat Glomerular Filtration Rate , Glucose Level 120H, Calcium Level 7.9L , Phosphorus Level 4.2, Magnesium Level 2.0, Total Bilirubin 4.1H, Direct Bilirubin 3.3H, Aspartate Amino Transf (AST/SGOT) 99H, Alanine Aminotransferase (ALT/SGPT) 62, Alkaline Phosphatase 1659H, Total Protein 5.6L, Albumin 1.6L, Globulin 4.0, Albumin/Globulin Ratio 0.4L 10/14/17 08:20: Cytomegalovirus DNA Qual (PCR) [Pending], Cytomegalovirus DNA PCR copies/ml [ Pending], Cytomegalovirus DNA PCR log10 [Pending], Varicella-Zoster IgG Antibody [Pending], Varicella-Zoster IgM Antibody [Pending] 10/14/17 08:31: Arterial Blood pH 7.619*H, Arterial Blood Partial Pressure CO2 35.8, Arterial Blood Partial Pressure O2 376.1H, Arterial Blood HCO3 35.7H, Arterial Blood Oxygen Saturation 99.3H, Arterial Blood Base Excess 13.5, Luis A Test Positive Height (Feet): 5 Height (Inches): 4.00 Weight (Pounds): 93 Objective WDWN NCAT supple CTA RRR abd soft (+) edema opens eyes ARNULFO DURON Oct 14, 2017 21:44
--- NOTE | 2017-10-14 23:03 | General Progress Note ---
Assessment/Plan Problem List: (1) Arthritis, rheumatoid ICD Codes: M06.9 - Rheumatoid arthritis, unspecified SNOMED: 11797948 (2) Aspiration pneumonia ICD Codes: J69.0 - Pneumonitis due to inhalation of food and vomit SNOMED: 599673115 (3) Diabetes mellitus ICD Codes: E11.9 - Type 2 diabetes mellitus without complications SNOMED: 45717662 (4) ARDS (adult respiratory distress syndrome) ICD Codes: J80 - Acute respiratory distress syndrome SNOMED: 18423545 (5) Transaminitis ICD Codes: R74.0 - Nonspecific elevation of levels of transaminase and lactic acid dehydrogenase [LDH] SNOMED: 600650287, 135948561 (6) Dyspnea ICD Codes: R06.00 - Dyspnea, unspecified SNOMED: 536835512 (7) Parkinsons disease ICD Codes: G20 - Parkinson's disease SNOMED: 07109612 (8) Sepsis ICD Codes: A41.9 - Sepsis, unspecified organism SNOMED: 57159216 (9) GERD (gastroesophageal reflux disease) ICD Codes: K21.9 - Gastro-esophageal reflux disease without esophagitis SNOMED: 364006251 (10) Aplastic anemia ICD Codes: D61.9 - Aplastic anemia, unspecified SNOMED: 059103809 (11) Pneumonia ICD Codes: J18.9 - Pneumonia, unspecified organism SNOMED: 216148770 (12) HTN (hypertension) ICD Codes: I10 - Essential (primary) hypertension SNOMED: 73336085 Assessment/Plan Encephalopathy, agitation, psychotic disorder. -cont current meds -ativan prn Subjective Date patient seen: Oct 14, 2017 Allergies: Coded Allergies: No Known Allergies (Verified , 11/18/08) Subjective the pt is calm nad anxious at times Objective Last 24 Hour Vital Signs Date Time Temp Pulse Resp B/P (MAP) Pulse Ox O2 Delivery O2 Flow Rate FiO2 10/14/17 21:08 84 30 40 10/14/17 20:00 97.7 81 18 119/56 98 Mechanical Ventilator 40 97.7 10/14/17 20:00 40 10/14/17 20:00 86 10/14/17 19:04 88 33 40 10/14/17 18:21 80 133/74 10/14/17 18:00 80 133/74 4/3/18 17:11 82 20 40 10/14/17 17:00 81 23 110/50 99 Mechanical Ventilator 40 10/14/17 16:00 78 10/14/17 16:00 40 10/14/17 16:00 98.7 74 25 109/42 98 Mechanical Ventilator 40 98.7 10/14/17 15:00 82 22 107/45 99 Mechanical Ventilator 40 10/14/17 14:41 81 18 40 10/14/17 14:00 79 23 112/45 100 Mechanical Ventilator 40 10/14/17 13:00 77 24 107/45 99 Mechanical Ventilator 40 10/14/17 12:31 77 18 40 10/14/17 12:00 82 10/14/17 12:00 40 10/14/17 12:00 98.2 75 25 110/46 98 Mechanical Ventilator 40 98.2 10/14/17 11:04 78 18 40 10/14/17 11:00 79 22 107/45 99 Mechanical Ventilator 40 10/14/17 10:00 80 23 108/50 98 Mechanical Ventilator 40 10/14/17 09:00 79 23 107/45 99 Mechanical Ventilator 40 10/14/17 09:00 77 102/48 10/14/17 08:42 77 18 40 10/14/17 08:00 40 10/14/17 08:00 98.5 74 25 108/42 98 Mechanical Ventilator 40 98.5 10/14/17 08:00 79 10/14/17 07:00 70 21 102/48 99 Mechanical Ventilator 40 10/14/17 06:48 78 18 40 10/14/17 06:00 92 21 91/55 99 Mechanical Ventilator 40 10/14/17 05:22 78 18 40 10/14/17 05:00 74 26 94/62 99 Mechanical Ventilator 40 10/14/17 04:00 99.5 80 30 82/39 99 Mechanical Ventilator 40 99.5 10/14/17 04:00 77 10/14/17 04:00 40 10/14/17 03:30 82 18 40 10/14/17 03:00 87 22 103/45 99 Mechanical Ventilator 40 10/14/17 02:00 88 26 100/52 99 Mechanical Ventilator 40 10/14/17 01:30 72 18 40 10/14/17 01:00 75 23 104/42 99 Mechanical Ventilator 40 10/14/17 00:00 40 10/14/17 00:00 73 10/14/17 00:00 99.2 80 45 100/44 99 Mechanical Ventilator 40 99.2 Intake and Output 10/13/17 10/14/17 19:00 07:00 Intake Total 140 ml 540 ml Output Total 1740 ml 605 ml Balance -1600 ml -65 ml Intake Free Water 70 ml Tube Feeding 90 ml 470 ml Other 50 ml Output Urine Total 1740 ml 605 ml # Bowel Movements 1 3 Laboratory Tests 10/14/17 03:00: White Blood Count 8.9, Red Blood Count 2.68L, Hemoglobin 8.5L, Hematocrit 26.4L , Mean Corpuscular Volume 98, Mean Corpuscular Hemoglobin 31.7H, Mean Corpuscular Hemoglobin Concent 32.1, Red Cell Distribution Width 17.0H, Platelet Count 173, Mean Platelet Volume 8.7, Neutrophils (%) (Auto) 75.0, Lymphocytes (%) (Auto) 15.5L, Monocytes (%) (Auto) 7.0, Eosinophils (%) (Auto) 2.0, Basophils (%) (Auto) 0.5, Prothrombin Time 11.3, Prothromb Time International Ratio 1.1, Sodium Level 143, Potassium Level 3.4L, Chloride Level 101, Carbon Dioxide Level 37H, Anion Gap 5, Blood Urea Nitrogen 30H, Creatinine 0.7, Estimat Glomerular Filtration Rate , Glucose Level 120H, Calcium Level 7.9L , Phosphorus Level 4.2, Magnesium Level 2.0, Total Bilirubin 4.1H, Direct Bilirubin 3.3H, Aspartate Amino Transf (AST/SGOT) 99H, Alanine Aminotransferase (ALT/SGPT) 62, Alkaline Phosphatase 1659H, Total Protein 5.6L, Albumin 1.6L, Globulin 4.0, Albumin/Globulin Ratio 0.4L 10/14/17 08:20: Cytomegalovirus DNA Qual (PCR) [Pending], Cytomegalovirus DNA PCR copies/ml [ Pending], Cytomegalovirus DNA PCR log10 [Pending], Varicella-Zoster IgG Antibody [Pending], Varicella-Zoster IgM Antibody [Pending] 10/14/17 08:31: Arterial Blood pH 7.619*H, Arterial Blood Partial Pressure CO2 35.8, Arterial Blood Partial Pressure O2 376.1H, Arterial Blood HCO3 35.7H, Arterial Blood Oxygen Saturation 99.3H, Arterial Blood Base Excess 13.5, Luis A Test Positive Height (Feet): 5 Height (Inches): 4.00 Weight (Pounds): 93 Dary Nixon M.D. Oct 14, 2017 23:03
[2017-10-15] VITALS: BP 127/66
[2017-10-15] MEDS: NovoLOG Insulin Flexpen SUBQ SCH ×5 (00:14→23:34)
[2017-10-15 04:00] VITALS: BP 121/53
[2017-10-15 05:17] LABS: BASOPHILS % (AUTO) 0.8 % (0.0-2.0); EOSINOPHILS % (AUTO) 2.5 % (0.0-3.0); HEMATOCRIT 25.7 % (37.0-47.0); HEMOGLOBIN 8.1 G/DL (12.0-16.0); LYMPHOCYTES % (AUTO) 15.8 % (20.0-45.0); MEAN CORPUSCULAR VOLUME 98 FL (80-99); MONOCYTES % (AUTO) 5.9 % (1.0-10.0); PLATELET COUNT 157 K/UL (150-450); RED BLOOD COUNT 2.62 M/UL (4.20-5.40); RED CELL DISTRIBUTION WIDTH 17.2 % (11.6-14.8); WHITE BLOOD COUNT 10.3 K/UL (4.8-10.8)
[2017-10-15 05:53] LABS: ALANINE AMINOTRANSFERASE 80 U/L (12-78); ALBUMIN 1.7 G/DL (3.4-5.0); ALBUMIN/GLOBULIN RATIO 0.4 (1.0-2.7); ALKALINE PHOSPHATASE 2055 U/L (46-116); ANION GAP 2 mmol/L (5-15); ASPARTATE AMINO TRANSFERASE 140 U/L (15-37); BILIRUBIN,TOTAL 3.6 MG/DL (0.2-1.0); BLOOD UREA NITROGEN 30 mg/dL (7-18); CALCIUM 7.8 MG/DL (8.5-10.1); CARBON DIOXIDE 37 MMOL/L (21-32); CHLORIDE 102 MMOL/L (98-107); CREATININE 0.7 MG/DL (0.55-1.30); POTASSIUM 3.8 MMOL/L (3.5-5.1); SODIUM 141 MMOL/L (136-145)
[2017-10-15 08:00] VITALS: BP 107/56
[2017-10-15] MEDS: Pantoprazole Inj IVP SCH (08:46)
[2017-10-15] MEDS: dilTIAZem HCl 30mg tab NG SCH ×2 (08:47→17:22)
[2017-10-15] MEDS: Ketotifen Fumarate 0.035% 5ml BOTH EYES SCH ×2 (09:00→13:43)
--- NOTE | 2017-10-15 10:45 | Pulmonolgy Critical Care Note ---
Critical Care - Asmt/Plan Problems: (1) ARDS (adult respiratory distress syndrome) (2) Aspiration pneumonia (3) Anemia (4) Thrombocytopenia (5) Diabetes mellitus (6) Protein-calorie malnutrition, severe Respiratory: monitor respiratory rate, adjust FIO2, CXR Cardiac: continue to monitor HR/BP Renal: F/U I&O Infectious Disease: check cultures Gastrointestinal: continue feedings/current rate, hold feedings, other - gtube insertion scheduled. 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 Discussed with: nurses Critical Care - Objective Last 24 Hour Vital Signs Date Time Temp Pulse Resp B/P (MAP) Pulse Ox O2 Delivery O2 Flow Rate FiO2 10/15/17 09:00 40 10/15/17 08:47 88 107/56 10/15/17 08:32 93 20 40 10/15/17 08:00 99.3 88 18 107/56 100 Mechanical Ventilator 40 99.3 10/15/17 08:00 95 10/15/17 06:33 96 22 40 10/15/17 05:22 92 20 40 10/15/17 04:00 88 10/15/17 04:00 40 10/15/17 04:00 98.9 88 18 121/53 100 Mechanical Ventilator 40 98.9 10/15/17 03:04 91 32 40 10/15/17 01:08 86 30 40 10/15/17 00:00 40 10/15/17 00:00 91 10/15/17 00:00 98.2 86 22 127/66 97 Mechanical Ventilator 40 98.2 10/14/17 23:01 78 32 40 10/14/17 21:08 84 30 40 10/14/17 20:00 97.7 81 18 119/56 98 Mechanical Ventilator 40 97.7 10/14/17 20:00 40 10/14/17 20:00 86 10/14/17 19:04 88 33 40 10/14/17 18:21 80 133/74 10/14/17 18:00 80 133/74 10/14/17 17:11 82 20 40 10/14/17 17:00 81 23 110/50 99 Mechanical Ventilator 40 10/14/17 16:00 78 10/14/17 16:00 40 10/14/17 16:00 98.7 74 25 109/42 98 Mechanical Ventilator 40 98.7 10/14/17 15:00 82 22 107/45 99 Mechanical Ventilator 40 10/14/17 14:41 81 18 40 10/14/17 14:00 79 23 112/45 100 Mechanical Ventilator 40 10/14/17 13:00 77 24 107/45 99 Mechanical Ventilator 40 10/14/17 12:31 77 18 40 10/14/17 12:00 82 10/14/17 12:00 40 10/14/17 12:00 98.2 75 25 110/46 98 Mechanical Ventilator 40 98.2 10/14/17 11:04 78 18 40 10/14/17 11:00 79 22 107/45 99 Mechanical Ventilator 40 Status: awake Condition: critical HEENT: atraumatic Lungs: chest wall tender Heart: HR/BP stable Abdomen: soft, non-tender, active bowel sounds Decubiti: location Micro: Microbiology Date/Time Source Procedure Growth Status 10/13/17 13:00 Body Fluid AFB Specimen Processing Tissue - Final Resulted 10/13/17 13:00 Body Fluid Acid Fast Bacilli Smear - Final Resulted 10/13/17 13:00 Body Fluid Acid Fast Bacilli Culture Pending Resulted 10/13/17 13:00 Bronchial Brushings Gram Stain - Final Resulted 10/13/17 13:00 Bronchial Brushings Aerobic Culture Pending Resulted 10/13/17 13:00 Bronchial Brushings Anaerobic Culture Pending Resulted Accucheck: 146 Critical Care - Subjective ROS Limited/Unobtainable: No Interval Events: opens eyes, seems to understand Condition: critical FI02: 40 Vent Support Breath Rate: 18 Vent Support Mode: AC Vent Tidal Volume: 500 Sputum Amount: Scant PEEP: 5.0 PIP: 41 Tube Feeding Amount: 50 I&O: Intake and Output 10/14/17 10/15/17 19:00 07:00 Intake Total 550 ml 700 ml Output Total 1560 ml 275 ml Balance -1010 ml 425 ml Intake Free Water 100 ml Tube Feeding 550 ml 600 ml Output Urine Total 1560 ml 275 ml # Bowel Movements 1 4 CXR: better ET-Tube: 7.5 ET Position: 21 Labs: Laboratory Tests Test 10/15/17 03:55 White Blood Count 10.3 K/UL (4.8-10.8) Red Blood Count 2.62 M/UL (4.20-5.40) L Hemoglobin 8.1 G/DL (12.0-16.0) L Hematocrit 25.7 % (37.0-47.0) L Mean Corpuscular Volume 98 FL (80-99) Mean Corpuscular Hemoglobin 31.0 PG (27.0-31.0) Mean Corpuscular Hemoglobin Concent 31.6 G/DL (32.0-36.0) L Red Cell Distribution Width 17.2 % (11.6-14.8) H Platelet Count 157 K/UL (150-450) Mean Platelet Volume 8.5 FL (6.5-10.1) Neutrophils (%) (Auto) 75.0 % (45.0-75.0) Lymphocytes (%) (Auto) 15.8 % (20.0-45.0) L Monocytes (%) (Auto) 5.9 % (1.0-10.0) Eosinophils (%) (Auto) 2.5 % (0.0-3.0) Basophils (%) (Auto) 0.8 % (0.0-2.0) Sodium Level 141 MMOL/L (136-145) Potassium Level 3.8 MMOL/L (3.5-5.1) Chloride Level 102 MMOL/L (98-107) Carbon Dioxide Level 37 MMOL/L (21-32) H Anion Gap 2 mmol/L (5-15) L Blood Urea Nitrogen 30 mg/dL (7-18) H Creatinine 0.7 MG/DL (0.55-1.30) Estimat Glomerular Filtration Rate mL/min (>60) Glucose Level 127 MG/DL (74-106) H Calcium Level 7.8 MG/DL (8.5-10.1) L Total Bilirubin 3.6 MG/DL (0.2-1.0) H Direct Bilirubin 3.0 MG/DL (0.0-0.3) H Aspartate Amino Transf (AST/SGOT) 140 U/L (15-37) H Alanine Aminotransferase (ALT/SGPT) 80 U/L (12-78) H Alkaline Phosphatase 2055 U/L (46-116) H Pro-B-Type Natriuretic Peptide 1691 pg/mL (0-125) H Total Protein 5.9 G/DL (6.4-8.2) L Albumin 1.7 G/DL (3.4-5.0) L Globulin 4.2 g/dL Albumin/Globulin Ratio 0.4 (1.0-2.7) L Tayler Liu MD Oct 15, 2017 10:45
[2017-10-15 12:00] VITALS: BP 114/69
--- NOTE | 2017-10-15 12:13 | Diagnostic Imaging Report ---
Indication: Dyspnea Comparison: 10/14/2017 A single view chest radiograph was obtained. Findings: Interstitial opacities are moderate and diffuse. Heart is borderline enlarged. Tracheostomy and weighted feeding tube again noted. IMPRESSION: No change from the prior day
--- NOTE | 2017-10-15 12:33 | Internal Med Progress Note ---
Subjective Date of Service: Oct 15, 2017 Physician Name Sina Bowens Attending Physician Jesus Barahona MD Current Medications Medications (Trade) Dose Ordered Sig/Hermes Route PRN Reason Start Time Stop Time Status Last Admin Dose Admin Acetaminophen (Tylenol) 650 mg Q6H PRN NG Fever/Headache/Mild Pain 10/14/17 17:00 11/10/17 16:59 Albuterol/ Ipratropium (Albuterol/ Ipratropium) 3 ml Q4H PRN HHN shortness of breath 10/14/17 17:00 10/16/17 16:59 Clonidine HCl (Catapres Tab) 0.1 mg Q4H PRN ORAL SBP>160 UNRELIEVED BY HYDRALAZ 10/14/17 17:00 10/15/17 16:59 Clotrimazole (Lotrimin) 1 applic EVERY 12 HOURS TOPIC 10/14/17 21:00 11/09/17 22:59 10/15/17 08:48 Diltiazem HCl (Cardizem) 30 mg BID NG 10/14/17 18:00 11/10/17 08:59 10/14/17 18:21 Furosemide (Lasix) 40 mg DAILY IV 10/15/17 09:00 11/12/17 08:59 10/15/17 08:46 Insulin Aspart (NovoLOG) EVERY 6 HOURS SUBQ 10/14/17 18:00 10/17/17 11:59 10/15/17 12:15 Ketotifen Fumarate (Zatidor) 1 drop DAILY BOTH EYES 10/15/17 09:00 10/25/17 08:59 Pantoprazole (Protonix) 40 mg DAILY IVP 10/15/17 09:00 11/01/17 08:59 10/15/17 08:46 Potassium Chloride (K-Dur) 20 meq DAILY ORAL 10/15/17 09:00 11/12/17 08:59 10/15/17 08:47 Allergies: Coded Allergies: No Known Allergies (Verified , 11/18/08) ROS Limited/Unobtainable: Yes Subjective 76 YO F admitted with Shortness of breath, now respiratory failure. Intubated and sedated. Cover for Internal Med-Dr. Barahona. RAJINDER . S/P ERCP 10/08/17. S/P Tracheostomy and bronchoscopy 10/13/17 Objective Last Vital Signs Date Time Temp Pulse Resp B/P (MAP) Pulse Ox O2 Delivery O2 Flow Rate FiO2 10/15/17 12:00 40 10/15/17 10:47 91 21 10/15/17 08:47 107/56 10/15/17 08:00 99.3 100 Mechanical Ventilator 99.3 Laboratory Tests Test 10/15/17 03:55 White Blood Count 10.3 K/UL (4.8-10.8) Red Blood Count 2.62 M/UL (4.20-5.40) L Hemoglobin 8.1 G/DL (12.0-16.0) L Hematocrit 25.7 % (37.0-47.0) L Mean Corpuscular Volume 98 FL (80-99) Mean Corpuscular Hemoglobin 31.0 PG (27.0-31.0) Mean Corpuscular Hemoglobin Concent 31.6 G/DL (32.0-36.0) L Red Cell Distribution Width 17.2 % (11.6-14.8) H Platelet Count 157 K/UL (150-450) Mean Platelet Volume 8.5 FL (6.5-10.1) Neutrophils (%) (Auto) 75.0 % (45.0-75.0) Lymphocytes (%) (Auto) 15.8 % (20.0-45.0) L Monocytes (%) (Auto) 5.9 % (1.0-10.0) Eosinophils (%) (Auto) 2.5 % (0.0-3.0) Basophils (%) (Auto) 0.8 % (0.0-2.0) Sodium Level 141 MMOL/L (136-145) Potassium Level 3.8 MMOL/L (3.5-5.1) Chloride Level 102 MMOL/L (98-107) Carbon Dioxide Level 37 MMOL/L (21-32) H Anion Gap 2 mmol/L (5-15) L Blood Urea Nitrogen 30 mg/dL (7-18) H Creatinine 0.7 MG/DL (0.55-1.30) Estimat Glomerular Filtration Rate mL/min (>60) Glucose Level 127 MG/DL (74-106) H Calcium Level 7.8 MG/DL (8.5-10.1) L Total Bilirubin 3.6 MG/DL (0.2-1.0) H Direct Bilirubin 3.0 MG/DL (0.0-0.3) H Aspartate Amino Transf (AST/SGOT) 140 U/L (15-37) H Alanine Aminotransferase (ALT/SGPT) 80 U/L (12-78) H Alkaline Phosphatase 2055 U/L (46-116) H Pro-B-Type Natriuretic Peptide 1691 pg/mL (0-125) H Total Protein 5.9 G/DL (6.4-8.2) L Albumin 1.7 G/DL (3.4-5.0) L Globulin 4.2 g/dL Albumin/Globulin Ratio 0.4 (1.0-2.7) L Microbiology Date/Time Source Procedure Growth Status 10/13/17 13:00 Body Fluid AFB Specimen Processing Tissue - Final Resulted 10/13/17 13:00 Body Fluid Acid Fast Bacilli Smear - Final Resulted 10/13/17 13:00 Body Fluid Acid Fast Bacilli Culture Pending Resulted 10/13/17 13:00 Bronchial Brushings Gram Stain - Final Resulted 10/13/17 13:00 Bronchial Brushings Aerobic Culture Pending Resulted 10/13/17 13:00 Bronchial Brushings Anaerobic Culture Pending Resulted Intake and Output 10/14/17 10/15/17 19:00 07:00 Intake Total 550 ml 700 ml Output Total 1560 ml 275 ml Balance -1010 ml 425 ml Intake Free Water 100 ml Tube Feeding 550 ml 600 ml Output Urine Total 1560 ml 275 ml # Bowel Movements 1 4 Objective General Appearance: lethargic, thin EENT: normal ENT inspection Neck: Trach; non-tender, normal alignment, supple Cardiovascular: normal peripheral pulses, normal rate, regular rhythm, no gallop/murmur, no JVD Respiratory/Chest: Mechanical vent; respiratory distress, crackles/rales, rhonchi - bilaterally, expiratory wheezing Abdomen: normal bowel sounds, non tender, soft, no organomegaly, no mass Skin: normal pigmentation, warm/dry Assessment/Plan Problem List: (1) HTN (hypertension) Assessment & Plan: Currently hypotensive. (2) Arthritis, rheumatoid (3) Parkinsons disease (4) Aplastic anemia (5) GERD (gastroesophageal reflux disease) (6) Respiratory failure Assessment & Plan: S/P Tracheostomy and broncholsopy 10/13/17. Cont vent per pulmonary (7) Pneumonia (8) Dyspnea (9) Sepsis Assessment & Plan: Blood culture neg. Continue Amikacin, micafungin and flagyl per ID (10) ARDS (adult respiratory distress syndrome) Assessment & Plan: See pulmonary note (11) UTI (urinary tract infection) Assessment & Plan: E.Coli. Continue abx per ID (12) Anemia Assessment & Plan: S/P Transfusion 2 units PRBC (13) Diabetes mellitus, type II Assessment & Plan: Continue novolog sliding scale (14) Leukocytosis Assessment & Plan: Worsening. See ID note. Start amikacin and fluconazole (15) Thrombocytopenia (16) Gallbladder sludge Assessment & Plan: s/P ERCP 10/01, 10/07/17 and 10/08/17 (17) Coagulopathy Assessment & Plan: S/P FFP and Vit K Status: progressing SINA BOWENS Oct 15, 2017 12:33
--- NOTE | 2017-10-15 12:34 | Nephrology Progress Note ---
Assessment/Plan Problem List: (1) ARDS (adult respiratory distress syndrome) (2) Electrolyte imbalance (3) Thrombocytopenia Assessment (1) ARDS (adult respiratory distress syndrome) (2) Aspiration pneumonia (3) Protein-calorie malnutrition, severe (4) Diabetes mellitus (5) Anemia , aplastic by history (6) DM (7) UTI (8) Electrolyte imbalance (9) HTN (10) Depression (11) RA . Plan stable water via NGT Adjust BP meds K and Phos supplement as needed Monitor renal parameters and urine output avoid nephrotoxics per orders discussed with RN Left ventricular ejection fraction estimated to be 55 %. Subjective ROS Limited/Unobtainable: Yes Objective Objective Last 24 Hour Vital Signs Date Time Temp Pulse Resp B/P (MAP) Pulse Ox O2 Delivery O2 Flow Rate FiO2 10/15/17 12:00 40 10/15/17 10:47 91 21 40 10/15/17 09:00 40 10/15/17 08:47 88 107/56 10/15/17 08:32 93 20 40 10/15/17 08:00 99.3 88 18 107/56 100 Mechanical Ventilator 40 99.3 10/15/17 08:00 95 10/15/17 06:33 96 22 40 10/15/17 05:22 92 20 40 10/15/17 04:00 88 10/15/17 04:00 40 10/15/17 04:00 98.9 88 18 121/53 100 Mechanical Ventilator 40 98.9 10/15/17 03:04 91 32 40 10/15/17 01:08 86 30 40 10/15/17 00:00 40 10/15/17 00:00 91 10/15/17 00:00 98.2 86 22 127/66 97 Mechanical Ventilator 40 98.2 10/14/17 23:01 78 32 40 10/14/17 21:08 84 30 40 10/14/17 20:00 97.7 81 18 119/56 98 Mechanical Ventilator 40 97.7 10/14/17 20:00 40 10/14/17 20:00 86 10/14/17 19:04 88 33 40 10/14/17 18:21 80 133/74 10/14/17 18:00 80 133/74 10/14/17 17:11 82 20 40 10/14/17 17:00 81 23 110/50 99 Mechanical Ventilator 40 10/14/17 16:00 78 10/14/17 16:00 40 10/14/17 16:00 98.7 74 25 109/42 98 Mechanical Ventilator 40 98.7 10/14/17 15:00 82 22 107/45 99 Mechanical Ventilator 40 10/14/17 14:41 81 18 40 10/14/17 14:00 79 23 112/45 100 Mechanical Ventilator 40 10/14/17 13:00 77 24 107/45 99 Mechanical Ventilator 40 Intake and Output 10/14/17 10/15/17 19:00 07:00 Intake Total 550 ml 700 ml Output Total 1560 ml 275 ml Balance -1010 ml 425 ml Intake Free Water 100 ml Tube Feeding 550 ml 600 ml Output Urine Total 1560 ml 275 ml # Bowel Movements 1 4 Laboratory Tests 10/15/17 03:55: White Blood Count 10.3, Red Blood Count 2.62L, Hemoglobin 8.1L, Hematocrit 25.7L , Mean Corpuscular Volume 98, Mean Corpuscular Hemoglobin 31.0, Mean Corpuscular Hemoglobin Concent 31.6L, Red Cell Distribution Width 17.2H, Platelet Count 157, Mean Platelet Volume 8.5, Neutrophils (%) (Auto) 75.0, Lymphocytes (%) (Auto) 15.8L, Monocytes (%) (Auto) 5.9, Eosinophils (%) (Auto) 2.5, Basophils (%) (Auto) 0.8, Sodium Level 141, Potassium Level 3.8, Chloride Level 102, Carbon Dioxide Level 37H, Anion Gap 2L, Blood Urea Nitrogen 30H, Creatinine 0.7, Estimat Glomerular Filtration Rate , Glucose Level 127H, Calcium Level 7.8L, Total Bilirubin 3.6H, Direct Bilirubin 3.0H, Aspartate Amino Transf (AST/SGOT) 140H, Alanine Aminotransferase (ALT/SGPT) 80H, Alkaline Phosphatase 2055H, Pro-B-Type Natriuretic Peptide 1691H, Total Protein 5.9L, Albumin 1.7L, Globulin 4.2, Albumin/Globulin Ratio 0.4L Height (Feet): 5 Height (Inches): 4.00 Weight (Pounds): 101 General Appearance: no apparent distress EENT: other - Trach Cardiovascular: tachycardia Respiratory/Chest: decreased breath sounds Abdomen: distended Objective no change YAEL HANSEN Oct 15, 2017 12:34
--- NOTE | 2017-10-15 13:44 | Infectious Diseases Prog Note ---
Assessment/Plan Assessment/Plan The patient is a 76-year-old female w Fever, SP Leukocytosis, resolved- likely cholangitis Community-acquired vs healthcare-associated pneumonia, s/p RX (the patient has been recently hospitalized in [facility]). -now ARDS- BAL : Laila an Nl devon , AFB : Neg -CT chest 10/07: Extensive diffuse bilateral pulmonary parenchymal disease, slightly worse than on prior exam of 09/23/2017. Main differential considerations include pneumonia, ARDS, pulmonary edema, among multiple other possibilities. Bilateral moderate to large pleural effusions, slightly increased in size from 09/23/2017. Nasogastric and endotracheal tubes in good position. Evidence of generalized anasarca, with diffuse subcutaneous soft tissue edema. Probable influenza despite of negative influenza screening test, s/p Rx Abnormal liver function tests, ALP>>> AST -2ry to sludged CBD ,cholangitis, obstruction on CBD; AST/ALT normal now, ALP improved but now worsening again -s/p ERCP 10/08: Intraoperative images demonstrate faint opacification of the common bile duct, and placement of a new plastic endobiliary stent. What may be a previous malpositioned biliary stent is seen to the left of the endoscope -CT abd/p 10/07: Anasarca, also previously described, currently similar except for increased size of bilateral pleural fluid described on chest CT. Gallbladder wall edema, probably a manifestation of anasarca, although acute cholecystitis not excludable. Note that similar findings were seen on the previous study, which was followed by a negative HIDA scan. Endometrial biliary stent now present. Mild central intrahepatic biliary ductal dilatation despite this. Low-attenuation areas in the spleen, as described. Equivocal clinically evident previously in retrospect that much more conspicuous currently, probably due to less image artifact on the current study. These are nonspecific, could represent cysts, infarcts, areas of inflammation, much less likely neoplasm. Satisfactory position of nasogastric tube. 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 Nonspecific inflammatory changes surrounding the hips. Right hip region lipoma -s/p ERCP with stent placement 10/01 -EUS 09/30: 1. Dilated common bile duct with lots of sludge in the distal common bile duct, most probably explanation for abnormal liver function tests. 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 Depression. Anemia. Rheumatoid arthritis. History of gastritis. PLAN: monitor pt off of Ab Rx - 10/11 SP Ertapenem #7/7 10/09 SP MIcafungin #10 10/02 SP Amikacin #10 09/30 SP Flagyl #8 09/25 sp Fluconazole #3 (held due to rise ALP) 09/23 SP Meropenem #5, PO Vanco #2 09/21 SP tamiflu #10 -f/u Repeat cultures ( BAL) -f/u Asp ag, fungitell, Cocci ab, fungal sp cx (called lab on 10/09 for f/u on these tests; was told they are still pending and they will call [facility] for an update). Monitor CBC.; Trend WBC Monitor BMP.; Trend LFTs Monitor chest x-ray -GI, heme onc f/u Subjective Constitutional: Denies: no symptoms, fever, chills, fatigue, anorexia, drenching sweats, other Allergies: Coded Allergies: No Known Allergies (Verified , 11/18/08) Subjective afebrile Objective Vital Signs Last 24 Hour Vital Signs Date Time Temp Pulse Resp B/P (MAP) Pulse Ox O2 Delivery O2 Flow Rate FiO2 10/15/17 12:55 90 18 40 10/15/17 12:00 40 10/15/17 12:00 98.9 66 13 114/69 100 Mechanical Ventilator 40 98.9 10/15/17 12:00 92 10/15/17 10:47 91 21 40 10/15/17 09:00 40 10/15/17 08:47 88 107/56 10/15/17 08:32 93 20 40 10/15/17 08:00 99.3 88 18 107/56 100 Mechanical Ventilator 40 99.3 10/15/17 08:00 95 10/15/17 06:33 96 22 40 10/15/17 05:22 92 20 40 10/15/17 04:00 88 10/15/17 04:00 40 10/15/17 04:00 98.9 88 18 121/53 100 Mechanical Ventilator 40 98.9 10/15/17 03:04 91 32 40 10/15/17 01:08 86 30 40 10/15/17 00:00 40 10/15/17 00:00 91 10/15/17 00:00 98.2 86 22 127/66 97 Mechanical Ventilator 40 98.2 10/14/17 23:01 78 32 40 10/14/17 21:08 84 30 40 10/14/17 20:00 97.7 81 18 119/56 98 Mechanical Ventilator 40 97.7 10/14/17 20:00 40 10/14/17 20:00 86 10/14/17 19:04 88 33 40 10/14/17 18:21 80 133/74 10/14/17 18:00 80 133/74 10/14/17 17:11 82 20 40 10/14/17 17:00 81 23 110/50 99 Mechanical Ventilator 40 10/14/17 16:00 78 10/14/17 16:00 40 10/14/17 16:00 98.7 74 25 109/42 98 Mechanical Ventilator 40 98.7 10/14/17 15:00 82 22 107/45 99 Mechanical Ventilator 40 10/14/17 14:41 81 18 40 10/14/17 14:00 79 23 112/45 100 Mechanical Ventilator 40 Height (Feet): 5 Height (Inches): 4.00 Weight (Pounds): 101 HEENT: mucous membranes moist Respiratory/Chest: normal breath sounds Cardiovascular: regular rhythm Abdomen: no organomegaly Microbiology Date/Time Source Procedure Growth Status 10/13/17 13:00 Body Fluid AFB Specimen Processing Tissue - Final Resulted 10/13/17 13:00 Body Fluid Acid Fast Bacilli Smear - Final Resulted 10/13/17 13:00 Body Fluid Acid Fast Bacilli Culture Pending Resulted 10/13/17 13:00 Bronchial Brushings Gram Stain - Final Resulted 10/13/17 13:00 Aerobic Culture - Preliminary Laila Albicans Usual Skin [place] Resulted 10/13/17 13:00 Bronchial Brushings Anaerobic Culture Pending Resulted Laboratory Tests Test 10/15/17 03:55 White Blood Count 10.3 K/UL (4.8-10.8) Red Blood Count 2.62 M/UL (4.20-5.40) L Hemoglobin 8.1 G/DL (12.0-16.0) L Hematocrit 25.7 % (37.0-47.0) L Mean Corpuscular Volume 98 FL (80-99) Mean Corpuscular Hemoglobin 31.0 PG (27.0-31.0) Mean Corpuscular Hemoglobin Concent 31.6 G/DL (32.0-36.0) L Red Cell Distribution Width 17.2 % (11.6-14.8) H Platelet Count 157 K/UL (150-450) Mean Platelet Volume 8.5 FL (6.5-10.1) Neutrophils (%) (Auto) 75.0 % (45.0-75.0) Lymphocytes (%) (Auto) 15.8 % (20.0-45.0) L Monocytes (%) (Auto) 5.9 % (1.0-10.0) Eosinophils (%) (Auto) 2.5 % (0.0-3.0) Basophils (%) (Auto) 0.8 % (0.0-2.0) Sodium Level 141 MMOL/L (136-145) Potassium Level 3.8 MMOL/L (3.5-5.1) Chloride Level 102 MMOL/L (98-107) Carbon Dioxide Level 37 MMOL/L (21-32) H Anion Gap 2 mmol/L (5-15) L Blood Urea Nitrogen 30 mg/dL (7-18) H Creatinine 0.7 MG/DL (0.55-1.30) Estimat Glomerular Filtration Rate mL/min (>60) Glucose Level 127 MG/DL (74-106) H Calcium Level 7.8 MG/DL (8.5-10.1) L Total Bilirubin 3.6 MG/DL (0.2-1.0) H Direct Bilirubin 3.0 MG/DL (0.0-0.3) H Aspartate Amino Transf (AST/SGOT) 140 U/L (15-37) H Alanine Aminotransferase (ALT/SGPT) 80 U/L (12-78) H Alkaline Phosphatase 2055 U/L (46-116) H Pro-B-Type Natriuretic Peptide 1691 pg/mL (0-125) H Total Protein 5.9 G/DL (6.4-8.2) L Albumin 1.7 G/DL (3.4-5.0) L Globulin 4.2 g/dL Albumin/Globulin Ratio 0.4 (1.0-2.7) L Current Medications Medications (Trade) Dose Ordered Sig/Hermes Route PRN Reason Start Time Stop Time Status Last Admin Dose Admin Acetaminophen (Tylenol) 650 mg Q6H PRN NG Fever/Headache/Mild Pain 10/14/17 17:00 11/10/17 16:59 Albuterol/ Ipratropium (Albuterol/ Ipratropium) 3 ml Q4H PRN HHN shortness of breath 10/14/17 17:00 10/16/17 16:59 Clonidine HCl (Catapres Tab) 0.1 mg Q4H PRN ORAL SBP>160 UNRELIEVED BY HYDRALAZ 10/14/17 17:00 10/15/17 16:59 Clotrimazole (Lotrimin) 1 applic EVERY 12 HOURS TOPIC 10/14/17 21:00 11/09/17 22:59 10/15/17 08:48 Diltiazem HCl (Cardizem) 30 mg BID NG 10/14/17 18:00 11/10/17 08:59 10/14/17 18:21 Furosemide (Lasix) 40 mg DAILY IV 10/15/17 09:00 11/12/17 08:59 10/15/17 08:46 Insulin Aspart (NovoLOG) EVERY 6 HOURS SUBQ 10/14/17 18:00 10/17/17 11:59 10/15/17 12:15 Ketotifen Fumarate (Zatidor) 1 drop DAILY BOTH EYES 10/15/17 09:00 10/25/17 08:59 Pantoprazole (Protonix) 40 mg DAILY IVP 10/15/17 09:00 11/01/17 08:59 10/15/17 08:46 Potassium Chloride (K-Dur) 20 meq DAILY ORAL 10/15/17 09:00 11/12/17 08:59 10/15/17 08:47 Edis Hunter MD Oct 15, 2017 13:43
[2017-10-15 16:00] VITALS: BP 113/60
--- NOTE | 2017-10-15 16:02 | Cardiac Electrophysiology PN ---
Assessment/Plan Assessment/Plan 1. Vent dependent Respiratory failure, due to underlying ARDS , pneumonia. Already ruled out for myocardial infarction. Now on 45% Fio2 with PEEP of 5. S/P Tracheostomy and Bronchoscopy by Dr. Parekh 2. Left bundle-branch block. No evidence of advanced heart block. 3. HTN and diastolic dysfunction. Echo EF 55% On Cardizem 30 BID 4. Hypernatremia and Azotemia. F/U per Dr. Mayer 5. Pneumonia and sepsis on IV antibiotics by Dr. Hunter. 6. Psychiatric disorder. 7. Anasarca. 3rd spacing. 8. Anemia with Hb 6.6 s/p PRBC. CT chest abdomen and pelvis without contrast no acute finding S/P EGD by Dr Walton. PEG tomorrow by Dr. Encinas 9. Severe thrombocytopenia. S/P platelet transfusion 10. Abnormal LFT, Biliary obstruction, possible cholangitis. S/P ERCP. CBD sludge. S/P repeat ERCP and stent by Dr. Walton Bilirubin down to 4 11. High INR 3.5 likely due to hepatic failure. S/P FFP and Vit K. INR 1 DW RN Subjective Subjective transferred out of ICU on vent via tracheostomy . No SVT or VT. Objective Last 24 Hour Vital Signs Date Time Temp Pulse Resp B/P (MAP) Pulse Ox O2 Delivery O2 Flow Rate FiO2 10/15/17 14:49 93 18 40 10/15/17 12:55 90 18 40 10/15/17 12:00 40 10/15/17 12:00 98.9 66 13 114/69 100 Mechanical Ventilator 40 98.9 10/15/17 12:00 92 10/15/17 10:47 91 21 40 10/15/17 09:00 40 10/15/17 08:47 88 107/56 10/15/17 08:32 93 20 40 10/15/17 08:00 99.3 88 18 107/56 100 Mechanical Ventilator 40 99.3 10/15/17 08:00 95 10/15/17 06:33 96 22 40 10/15/17 05:22 92 20 40 10/15/17 04:00 88 10/15/17 04:00 40 10/15/17 04:00 98.9 88 18 121/53 100 Mechanical Ventilator 40 98.9 10/15/17 03:04 91 32 40 4/4/18 01:08 86 30 40 10/15/17 00:00 40 10/15/17 00:00 91 10/15/17 00:00 98.2 86 22 127/66 97 Mechanical Ventilator 40 98.2 10/14/17 23:01 78 32 40 10/14/17 21:08 84 30 40 10/14/17 20:00 97.7 81 18 119/56 98 Mechanical Ventilator 40 97.7 10/14/17 20:00 40 10/14/17 20:00 86 10/14/17 19:04 88 33 40 10/14/17 18:21 80 133/74 10/14/17 18:00 80 133/74 10/14/17 17:11 82 20 40 10/14/17 17:00 81 23 110/50 99 Mechanical Ventilator 40 10/14/17 16:00 78 10/14/17 16:00 40 10/14/17 16:00 98.7 74 25 109/42 98 Mechanical Ventilator 40 98.7 Intake and Output 10/14/17 10/15/17 19:00 07:00 Intake Total 550 ml 700 ml Output Total 1560 ml 275 ml Balance -1010 ml 425 ml Intake Free Water 100 ml Tube Feeding 550 ml 600 ml Output Urine Total 1560 ml 275 ml # Bowel Movements 1 4 Laboratory Tests Test 10/15/17 03:55 White Blood Count 10.3 K/UL (4.8-10.8) Red Blood Count 2.62 M/UL (4.20-5.40) L Hemoglobin 8.1 G/DL (12.0-16.0) L Hematocrit 25.7 % (37.0-47.0) L Mean Corpuscular Volume 98 FL (80-99) Mean Corpuscular Hemoglobin 31.0 PG (27.0-31.0) Mean Corpuscular Hemoglobin Concent 31.6 G/DL (32.0-36.0) L Red Cell Distribution Width 17.2 % (11.6-14.8) H Platelet Count 157 K/UL (150-450) Mean Platelet Volume 8.5 FL (6.5-10.1) Neutrophils (%) (Auto) 75.0 % (45.0-75.0) Lymphocytes (%) (Auto) 15.8 % (20.0-45.0) L Monocytes (%) (Auto) 5.9 % (1.0-10.0) Eosinophils (%) (Auto) 2.5 % (0.0-3.0) Basophils (%) (Auto) 0.8 % (0.0-2.0) Sodium Level 141 MMOL/L (136-145) Potassium Level 3.8 MMOL/L (3.5-5.1) Chloride Level 102 MMOL/L (98-107) Carbon Dioxide Level 37 MMOL/L (21-32) H Anion Gap 2 mmol/L (5-15) L Blood Urea Nitrogen 30 mg/dL (7-18) H Creatinine 0.7 MG/DL (0.55-1.30) Estimat Glomerular Filtration Rate mL/min (>60) Glucose Level 127 MG/DL (74-106) H Calcium Level 7.8 MG/DL (8.5-10.1) L Total Bilirubin 3.6 MG/DL (0.2-1.0) H Direct Bilirubin 3.0 MG/DL (0.0-0.3) H Aspartate Amino Transf (AST/SGOT) 140 U/L (15-37) H Alanine Aminotransferase (ALT/SGPT) 80 U/L (12-78) H Alkaline Phosphatase 2055 U/L (46-116) H Pro-B-Type Natriuretic Peptide 1691 pg/mL (0-125) H Total Protein 5.9 G/DL (6.4-8.2) L Albumin 1.7 G/DL (3.4-5.0) L Globulin 4.2 g/dL Albumin/Globulin Ratio 0.4 (1.0-2.7) L Microbiology Date/Time Source Procedure Growth Status 10/13/17 13:00 Body Fluid AFB Specimen Processing Tissue - Final Resulted 10/13/17 13:00 Body Fluid Acid Fast Bacilli Smear - Final Resulted 10/13/17 13:00 Body Fluid Acid Fast Bacilli Culture Pending Resulted 10/13/17 13:00 Bronchial Brushings Gram Stain - Final Resulted 10/13/17 13:00 Aerobic Culture - Preliminary Laila Albicans Usual Skin Sapphire Resulted 10/13/17 13:00 Bronchial Brushings Anaerobic Culture Pending Resulted Objective HEAD AND NECK: Tracheostomy in place.NG tube is in. LUNGS: Coarse rhonchi bilaterally CARDIOVASCULAR: Tachy S1 and S2.No murmur ABDOMEN: Soft. EXTREMITIES: No edema. Charlie Darnell MD Oct 15, 2017 16:02
--- NOTE | 2017-10-15 16:09 | General Progress Note ---
Progress Note Progress Note Surgery POD #2 s/p trach. recovering. no issues. tracks with eyes. responsive to commands. smiles. trach clean and functional. no issues. wean vent as tolerated. thank you Adryan Echevarria Oct 15, 2017 16:09
--- NOTE | 2017-10-15 18:15 | General Progress Note ---
Assessment/Plan Problem List: (1) Arthritis, rheumatoid ICD Codes: M06.9 - Rheumatoid arthritis, unspecified SNOMED: 47891290 (2) Aspiration pneumonia ICD Codes: J69.0 - Pneumonitis due to inhalation of food and vomit SNOMED: 607673398 (3) Diabetes mellitus ICD Codes: E11.9 - Type 2 diabetes mellitus without complications SNOMED: 33528074 (4) ARDS (adult respiratory distress syndrome) ICD Codes: J80 - Acute respiratory distress syndrome SNOMED: 03342163 (5) Transaminitis ICD Codes: R74.0 - Nonspecific elevation of levels of transaminase and lactic acid dehydrogenase [LDH] SNOMED: 180196556, 603266768 (6) Dyspnea ICD Codes: R06.00 - Dyspnea, unspecified SNOMED: 504967002 (7) Parkinsons disease ICD Codes: G20 - Parkinson's disease SNOMED: 01124336 (8) Sepsis ICD Codes: A41.9 - Sepsis, unspecified organism SNOMED: 43545205 (9) GERD (gastroesophageal reflux disease) ICD Codes: K21.9 - Gastro-esophageal reflux disease without esophagitis SNOMED: 426460685 (10) Aplastic anemia ICD Codes: D61.9 - Aplastic anemia, unspecified SNOMED: 985232135 (11) Pneumonia ICD Codes: J18.9 - Pneumonia, unspecified organism SNOMED: 515575094 (12) HTN (hypertension) ICD Codes: I10 - Essential (primary) hypertension SNOMED: 69870462 Assessment/Plan Encephalopathy, agitation, psychotic disorder. -cont current meds -ativan prn Subjective Date patient seen: Oct 15, 2017 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: Reports: anxiety, depressed Allergies: Coded Allergies: No Known Allergies (Verified , 11/18/08) Subjective more awake the pt is calm nad anxious at times Objective Last 24 Hour Vital Signs Date Time Temp Pulse Resp B/P (MAP) Pulse Ox O2 Delivery O2 Flow Rate FiO2 10/15/17 17:22 91 113/60 10/15/17 17:01 91 20 40 10/15/17 16:00 86 10/15/17 16:00 99.1 83 18 113/60 100 Mechanical Ventilator 40 99.1 10/15/17 16:00 40 10/15/17 14:49 93 18 40 10/15/17 12:55 90 18 40 10/15/17 12:00 40 10/15/17 12:00 98.9 66 13 114/69 100 Mechanical Ventilator 40 98.9 10/15/17 12:00 92 10/15/17 10:47 91 21 40 10/15/17 09:00 40 10/15/17 08:47 88 107/56 10/15/17 08:32 93 20 40 10/15/17 08:00 99.3 88 18 107/56 100 Mechanical Ventilator 40 99.3 10/15/17 08:00 95 10/15/17 06:33 96 22 40 10/15/17 05:22 92 20 40 10/15/17 04:00 88 10/15/17 04:00 40 10/15/17 04:00 98.9 88 18 121/53 100 Mechanical Ventilator 40 98.9 10/15/17 03:04 91 32 40 10/15/17 01:08 86 30 40 10/15/17 00:00 40 10/15/17 00:00 91 10/15/17 00:00 98.2 86 22 127/66 97 Mechanical Ventilator 40 98.2 10/14/17 23:01 78 32 40 10/14/17 21:08 84 30 40 10/14/17 20:00 97.7 81 18 119/56 98 Mechanical Ventilator 40 97.7 10/14/17 20:00 40 10/14/17 20:00 86 10/14/17 19:04 88 33 40 10/14/17 18:21 80 133/74 Intake and Output 10/14/17 10/15/17 19:00 07:00 Intake Total 550 ml 700 ml Output Total 1560 ml 275 ml Balance -1010 ml 425 ml Intake Free Water 100 ml Tube Feeding 550 ml 600 ml Output Urine Total 1560 ml 275 ml # Bowel Movements 1 4 Laboratory Tests 10/15/17 03:55: White Blood Count 10.3, Red Blood Count 2.62L, Hemoglobin 8.1L, Hematocrit 25.7L , Mean Corpuscular Volume 98, Mean Corpuscular Hemoglobin 31.0, Mean Corpuscular Hemoglobin Concent 31.6L, Red Cell Distribution Width 17.2H, Platelet Count 157, Mean Platelet Volume 8.5, Neutrophils (%) (Auto) 75.0, Lymphocytes (%) (Auto) 15.8L, Monocytes (%) (Auto) 5.9, Eosinophils (%) (Auto) 2.5, Basophils (%) (Auto) 0.8, Sodium Level 141, Potassium Level 3.8, Chloride Level 102, Carbon Dioxide Level 37H, Anion Gap 2L, Blood Urea Nitrogen 30H, Creatinine 0.7, Estimat Glomerular Filtration Rate , Glucose Level 127H, Calcium Level 7.8L, Total Bilirubin 3.6H, Direct Bilirubin 3.0H, Aspartate Amino Transf (AST/SGOT) 140H, Alanine Aminotransferase (ALT/SGPT) 80H, Alkaline Phosphatase 2055H, Pro-B-Type Natriuretic Peptide 1691H, Total Protein 5.9L, Albumin 1.7L, Globulin 4.2, Albumin/Globulin Ratio 0.4L Height (Feet): 5 Height (Inches): 4.00 Weight (Pounds): 101 General Appearance: no apparent distress, alert, confused Dary Nixon M.D. Oct 15, 2017 18:15
[2017-10-15 20:00] VITALS: BP 104/60
--- NOTE | 2017-10-15 21:07 | General Progress Note ---
Assessment/Plan Assessment/Plan Assessment - Resp failure / ARDS / PNA - s/p trach - Abnormal LFT, Biliary obstruction - s/p stent - cause of rising Alk phos unclear (GGT high also), - ? biliary sludge, - ? poorly draining stent, - ? intrahepatic cholestasis, - no current suspect drugs at this time - ? infiltrative d/o - Jaundice - bili improved - Anemia with OB (+) stools - coagulopathy - improved - Malnutrition - hypernatremia - AMS - improved Recommendations - follow labs - recheck GGT - recheck abd ultrasoud - will ask Dr. Walton to evaluate for ? repeat ERCP - PEG in am if no significant ascites on ultrasouind - transfuse PRN - Elevate HOB - Vent care - Monitor labs - follow LFT Subjective Allergies: Coded Allergies: No Known Allergies (Verified , 11/18/08) Subjective Above noted s/p trach Alk phos now over 1999 but Bili lower family signed consent for PEG Objective Last 24 Hour Vital Signs Date Time Temp Pulse Resp B/P (MAP) Pulse Ox O2 Delivery O2 Flow Rate FiO2 10/15/17 18:38 108 30 40 10/15/17 17:22 91 113/60 10/15/17 17:01 91 20 40 10/15/17 16:00 86 10/15/17 16:00 99.1 83 18 113/60 100 Mechanical Ventilator 40 99.1 10/15/17 16:00 40 10/15/17 14:49 93 18 40 10/15/17 12:55 90 18 40 10/15/17 12:00 40 10/15/17 12:00 98.9 66 13 114/69 100 Mechanical Ventilator 40 98.9 10/15/17 12:00 92 10/15/17 10:47 91 21 40 10/15/17 09:00 40 10/15/17 08:47 88 107/56 10/15/17 08:32 93 20 40 10/15/17 08:00 99.3 88 18 107/56 100 Mechanical Ventilator 40 99.3 10/15/17 08:00 95 10/15/17 06:33 96 22 40 10/15/17 05:22 92 20 40 10/15/17 04:00 88 10/15/17 04:00 40 10/15/17 04:00 98.9 88 18 121/53 100 Mechanical Ventilator 40 98.9 4/4/18 03:04 91 32 40 10/15/17 01:08 86 30 40 10/15/17 00:00 40 10/15/17 00:00 91 10/15/17 00:00 98.2 86 22 127/66 97 Mechanical Ventilator 40 98.2 10/14/17 23:01 78 32 40 10/14/17 21:08 84 30 40 Intake and Output 10/14/17 10/15/17 19:00 07:00 Intake Total 550 ml 700 ml Output Total 1560 ml 275 ml Balance -1010 ml 425 ml Intake Free Water 100 ml Tube Feeding 550 ml 600 ml Output Urine Total 1560 ml 275 ml # Bowel Movements 1 4 Laboratory Tests 10/15/17 03:55: White Blood Count 10.3, Red Blood Count 2.62L, Hemoglobin 8.1L, Hematocrit 25.7L , Mean Corpuscular Volume 98, Mean Corpuscular Hemoglobin 31.0, Mean Corpuscular Hemoglobin Concent 31.6L, Red Cell Distribution Width 17.2H, Platelet Count 157, Mean Platelet Volume 8.5, Neutrophils (%) (Auto) 75.0, Lymphocytes (%) (Auto) 15.8L, Monocytes (%) (Auto) 5.9, Eosinophils (%) (Auto) 2.5, Basophils (%) (Auto) 0.8, Sodium Level 141, Potassium Level 3.8, Chloride Level 102, Carbon Dioxide Level 37H, Anion Gap 2L, Blood Urea Nitrogen 30H, Creatinine 0.7, Estimat Glomerular Filtration Rate , Glucose Level 127H, Calcium Level 7.8L, Total Bilirubin 3.6H, Direct Bilirubin 3.0H, Aspartate Amino Transf (AST/SGOT) 140H, Alanine Aminotransferase (ALT/SGPT) 80H, Alkaline Phosphatase 2055H, Pro-B-Type Natriuretic Peptide 1691H, Total Protein 5.9L, Albumin 1.7L, Globulin 4.2, Albumin/Globulin Ratio 0.4L Height (Feet): 5 Height (Inches): 4.00 Weight (Pounds): 101 Objective WDWN NCAT supple, (+) trach CTA RRR abd soft (+) LE edema opens eyes ARNULFO DURON Oct 15, 2017 21:07
--- NOTE | 2017-10-15 21:16 | General Progress Note ---
Assessment/Plan Assessment/Plan Assessment - Resp failure / ARDS / PNA - s/p trach - Abnormal LFT, Biliary obstruction - s/p stent - cause of rising Alk phos unclear (GGT high also), - ? biliary sludge, - ? poorly draining stent, - ? intrahepatic cholestasis, - no current suspect drugs at this time - ? infiltrative d/o - Jaundice - bili improved - Anemia with OB (+) stools - coagulopathy - improved - Malnutrition - hypernatremia - AMS - improved Recommendations - follow labs - recheck GGT - recheck abd ultrasoud - will ask Dr. Walton to evaluate for ? repeat ERCP - PEG in am if no significant ascites on ultrasound - transfuse PRN - Elevate HOB - Vent care - Monitor labs - follow LFT Subjective Allergies: Coded Allergies: No Known Allergies (Verified , 11/18/08) Subjective Above noted s/p trach Alk phos now over 1999 but Bili lower family signed consent for PEG Objective Last 24 Hour Vital Signs Date Time Temp Pulse Resp B/P (MAP) Pulse Ox O2 Delivery O2 Flow Rate FiO2 10/15/17 18:38 108 30 40 10/15/17 17:22 91 113/60 10/15/17 17:01 91 20 40 10/15/17 16:00 86 10/15/17 16:00 99.1 83 18 113/60 100 Mechanical Ventilator 40 99.1 10/15/17 16:00 40 10/15/17 14:49 93 18 40 10/15/17 12:55 90 18 40 10/15/17 12:00 40 10/15/17 12:00 98.9 66 13 114/69 100 Mechanical Ventilator 40 98.9 10/15/17 12:00 92 10/15/17 10:47 91 21 40 10/15/17 09:00 40 10/15/17 08:47 88 107/56 10/15/17 08:32 93 20 40 10/15/17 08:00 99.3 88 18 107/56 100 Mechanical Ventilator 40 99.3 10/15/17 08:00 95 10/15/17 06:33 96 22 40 10/15/17 05:22 92 20 40 10/15/17 04:00 88 10/15/17 04:00 40 10/15/17 04:00 98.9 88 18 121/53 100 Mechanical Ventilator 40 98.9 10/15/17 03:04 91 32 40 10/15/17 01:08 86 30 40 10/15/17 00:00 40 10/15/17 00:00 91 10/15/17 00:00 98.2 86 22 127/66 97 Mechanical Ventilator 40 98.2 10/14/17 23:01 78 32 40 Intake and Output 10/14/17 10/15/17 19:00 07:00 Intake Total 550 ml 700 ml Output Total 1560 ml 275 ml Balance -1010 ml 425 ml Intake Free Water 100 ml Tube Feeding 550 ml 600 ml Output Urine Total 1560 ml 275 ml # Bowel Movements 1 4 Laboratory Tests 10/15/17 03:55: White Blood Count 10.3, Red Blood Count 2.62L, Hemoglobin 8.1L, Hematocrit 25.7L , Mean Corpuscular Volume 98, Mean Corpuscular Hemoglobin 31.0, Mean Corpuscular Hemoglobin Concent 31.6L, Red Cell Distribution Width 17.2H, Platelet Count 157, Mean Platelet Volume 8.5, Neutrophils (%) (Auto) 75.0, Lymphocytes (%) (Auto) 15.8L, Monocytes (%) (Auto) 5.9, Eosinophils (%) (Auto) 2.5, Basophils (%) (Auto) 0.8, Sodium Level 141, Potassium Level 3.8, Chloride Level 102, Carbon Dioxide Level 37H, Anion Gap 2L, Blood Urea Nitrogen 30H, Creatinine 0.7, Estimat Glomerular Filtration Rate , Glucose Level 127H, Calcium Level 7.8L, Total Bilirubin 3.6H, Direct Bilirubin 3.0H, Aspartate Amino Transf (AST/SGOT) 140H, Alanine Aminotransferase (ALT/SGPT) 80H, Alkaline Phosphatase 2055H, Pro-B-Type Natriuretic Peptide 1691H, Total Protein 5.9L, Albumin 1.7L, Globulin 4.2, Albumin/Globulin Ratio 0.4L Height (Feet): 5 Height (Inches): 4.00 Weight (Pounds): 101 Objective WDWN NCAT supple, (+) trach CTA RRR abd soft (+) LE edema opens eyes ARNULFO DURON Oct 15, 2017 21:16
[2017-10-15] MEDS: D5 1/2NS 1,000 ML IV SCH (21:50)
[2017-10-15] MEDS ORDERED: Phytonadione 10 mg/mL 1ml amp SUBQ ONE (22:00)
--- NOTE | 2017-10-15 22:55 | General Progress Note ---
Assessment/Plan Assessment/Plan #. Pancytopenia --> WBC count and platelet counts are within normal levels now. Hemoglobin low but remains above goal. --> Transfuse platelets if <20k --> Monitor and trend cbc daily. #. Coagulopathy - potentially related to DIC early onset, review hapto, inr repeat, fibrinogen, DIC panel --> administer FFP 4 units and vitamin k repeat prior to procedure --> DW pulm Dr. Parekh --> Likely related to infection versus other cause. On antibiotics. #. Anemia due to underlying chronic disease. Continue to closely monitor. --> Hemoglobin goal is above 7. --> Hemoglobin levels have been downtrending but remain above goal. --> Occult blood detected. Consider GI recs. --> Transfuse as necessary --> Blood transfusion not required unless symptomatic or hgb below goal. #. Leukocytosis likely related to underlying pneumonia infection. --> Resolved on antibiotic treatment. #. Thrombocytopenia, severe and progressive, acute onset, likely secondary to underlying infection, aspiration, hit was negative --> Duplex of the lower extremities is negative, therefore less likely HIT and other causes are more likely such as underlying infection. --> Platelets goal >20k, transfuse if necessary. --> On antibiotics as per ID --> Platelet count has been downtrending, monitor closely. #. Community-acquired pneumonia versus hospital-acquired. --> The patient on broad-spectrum antibiotics. --> Improved. --> Urine culture growing E. coli. Continue to closely monitor. #. Transaminitis. She has been seen by GI Service. Continue to closely monitor. #. Low-grade fever. Closely observe. #. Encephalopathy. Subjective Date patient seen: Oct 14, 2017 Constitutional: Denies: no symptoms, chills, diaphoresis, fever, malaise, weakness, other HEENT: Denies: no symptoms, eye pain, blurred vision, tearing, double vision, ear pain, ear discharge, nose pain, nose congestion, throat pain, throat swelling, mouth pain, mouth swelling, other Cardiovascular: Denies: no symptoms, chest pain, edema, irregular heart rate, lightheadedness, palpitations, syncope, other Respiratory: Denies: no symptoms, cough, orthopnea, shortness of breath, SOB with excertion, SOB at rest, sputum, stridor, wheezing, other Gastrointestinal/Abdominal: Denies: no symptoms, abdomen distended, abdominal pain, black stools, tarry stools, blood in stool, constipated, diarrhea, difficulty swallowing, nausea, poor appetite, poor fluid intake, rectal bleeding , vomiting, other Genitourinary: Denies: no symptoms, burning, discharge, frequency, flank pain, hematuria, incontinence, pain, urgency, other 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: Denies: no symptoms, anxiety, depressed, emotional problems, headache, numbness, paresthesia, pre-existing deficit, seizure, tingling, tremors, weakness, other Hematologic/Lymphatic: Reports: anemia Allergies: Coded Allergies: No Known Allergies (Verified , 11/18/08) Subjective Intubated in ICU. Encephalopathic. No new events overnight. Objective Last 24 Hour Vital Signs Date Time Temp Pulse Resp B/P (MAP) Pulse Ox O2 Delivery O2 Flow Rate FiO2 10/15/17 21:04 82 18 40 10/15/17 18:38 108 30 40 10/15/17 17:22 91 113/60 10/15/17 17:01 91 20 40 10/15/17 16:00 86 10/15/17 16:00 99.1 83 18 113/60 100 Mechanical Ventilator 40 99.1 10/15/17 16:00 40 10/15/17 14:49 93 18 40 10/15/17 12:55 90 18 40 10/15/17 12:00 40 10/15/17 12:00 98.9 66 13 114/69 100 Mechanical Ventilator 40 98.9 10/15/17 12:00 92 10/15/17 10:47 91 21 40 10/15/17 09:00 40 10/15/17 08:47 88 107/56 10/15/17 08:32 93 20 40 10/15/17 08:00 99.3 88 18 107/56 100 Mechanical Ventilator 40 99.3 10/15/17 08:00 95 10/15/17 06:33 96 22 40 10/15/17 05:22 92 20 40 10/15/17 04:00 88 10/15/17 04:00 40 10/15/17 04:00 98.9 88 18 121/53 100 Mechanical Ventilator 40 98.9 10/15/17 03:04 91 32 40 10/15/17 01:08 86 30 40 10/15/17 00:00 40 10/15/17 00:00 91 10/15/17 00:00 98.2 86 22 127/66 97 Mechanical Ventilator 40 98.2 10/14/17 23:01 78 32 40 Intake and Output 10/14/17 10/15/17 19:00 07:00 Intake Total 550 ml 700 ml Output Total 1560 ml 275 ml Balance -1010 ml 425 ml Intake Free Water 100 ml Tube Feeding 550 ml 600 ml Output Urine Total 1560 ml 275 ml # Bowel Movements 1 4 Laboratory Tests 10/15/17 03:55: White Blood Count 10.3, Red Blood Count 2.62L, Hemoglobin 8.1L, Hematocrit 25.7L , Mean Corpuscular Volume 98, Mean Corpuscular Hemoglobin 31.0, Mean Corpuscular Hemoglobin Concent 31.6L, Red Cell Distribution Width 17.2H, Platelet Count 157, Mean Platelet Volume 8.5, Neutrophils (%) (Auto) 75.0, Lymphocytes (%) (Auto) 15.8L, Monocytes (%) (Auto) 5.9, Eosinophils (%) (Auto) 2.5, Basophils (%) (Auto) 0.8, Sodium Level 141, Potassium Level 3.8, Chloride Level 102, Carbon Dioxide Level 37H, Anion Gap 2L, Blood Urea Nitrogen 30H, Creatinine 0.7, Estimat Glomerular Filtration Rate , Glucose Level 127H, Calcium Level 7.8L, Total Bilirubin 3.6H, Direct Bilirubin 3.0H, Aspartate Amino Transf (AST/SGOT) 140H, Alanine Aminotransferase (ALT/SGPT) 80H, Alkaline Phosphatase 2055H, Pro-B-Type Natriuretic Peptide 1691H, Total Protein 5.9L, Albumin 1.7L, Globulin 4.2, Albumin/Globulin Ratio 0.4L Height (Feet): 5 Height (Inches): 4.00 Weight (Pounds): 101 General Appearance: confused Respiratory/Chest: decreased breath sounds Abdomen: soft Johnny Sinha MD Oct 15, 2017 22:55
[2017-10-16] VITALS: BP 130/71
[2017-10-16 04:00] VITALS: BP 137/66
[2017-10-16] MEDS: NovoLOG Insulin Flexpen SUBQ SCH ×4 (06:02→23:52)
[2017-10-16] MEDS ORDERED: DiphenhydrAMINE 50mg/ml Inj IVP PRN (06:30)
[2017-10-16] MEDS ORDERED: fentaNYL 100 mcg/2 mL IV PRN (06:30)
[2017-10-16] MEDS ORDERED: Atropine Inj 1mg/10ml Syr IV PRN (06:30)
--- NOTE | 2017-10-16 06:30 | Anethesia Preoperative Eval ---
Anesthesia Pre-op PMH/ROS General Date of Evaluation: Oct 16, 2017 Time of Evaluation: 06:27 Anesthesiologist: shoaib ASA Score: ASA 4 Mallampati Score Class I : Soft palate, uvula, fauces, pillars visible Class II: Soft palate, uvula, fauces visible Class III: Soft palate, base of uvula visible Class IV: Only hard plate visible Mallampati Classification: Class III Surgeon: orquidea Diagnosis: protein calorie malnutrition Surgical Procedure: egd/peg Anesthesia History: none Family History: no anesthesia problems Allergies: Coded Allergies: No Known Allergies (Verified , 11/18/08) Medications: see eMAR Past Medical History Cardiovascular: Reports: HTN Pulmonary: Reports: other - ards, aspiration pneumonia, respiratory failure s/ p tracheostomy Gastrointestinal/Genitourinary: Reports: GERD, other - malnutrition Endocrine: Reports: DM Anesthesia Pre-op Phys. Exam Physician Exam Last Vital Signs Date Time Temp Pulse Resp B/P (MAP) Pulse Ox O2 Delivery O2 Flow Rate FiO2 10/16/17 04:51 80 20 40 10/16/17 04:00 97.9 137/66 99 Mechanical Ventilator 97.9 Constitutional: NAD Neurologic: CN 2-12 intact Cardiovascular: RRR Respiratory: CTA Gastrointestinal: S/NT/ND Airway Exam Mallampati Score: Class II MO: full Neck: tracheostomy TMD: 2fb ROM: limited Teeth: missing Anesthesia Pre-op A/P Labs Labs Test 10/14/17 03:00 10/14/17 08:20 10/14/17 08:31 10/15/17 03:55 White Blood Count 8.9 K/UL (4.8-10.8) 10.3 K/UL (4.8-10.8) Red Blood Count 2.68 M/UL (4.20-5.40) 2.62 M/UL (4.20-5.40) Hemoglobin 8.5 G/DL (12.0-16.0) 8.1 G/DL (12.0-16.0) Hematocrit 26.4 % (37.0-47.0) 25.7 % (37.0-47.0) Mean Corpuscular Volume 98 FL (80-99) 98 FL (80-99) Mean Corpuscular Hemoglobin 31.7 PG (27.0-31.0) 31.0 PG (27.0-31.0) Mean Corpuscular Hemoglobin Concent 32.1 G/DL (32.0-36.0) 31.6 G/DL (32.0-36.0) Red Cell Distribution Width 17.0 % (11.6-14.8) 17.2 % (11.6-14.8) Platelet Count 173 K/UL (150-450) 157 K/UL (150-450) Mean Platelet Volume 8.7 FL (6.5-10.1) 8.5 FL (6.5-10.1) Neutrophils (%) (Auto) 75.0 % (45.0-75.0) 75.0 % (45.0-75.0) Lymphocytes (%) (Auto) 15.5 % (20.0-45.0) 15.8 % (20.0-45.0) Monocytes (%) (Auto) 7.0 % (1.0-10.0) 5.9 % (1.0-10.0) Eosinophils (%) (Auto) 2.0 % (0.0-3.0) 2.5 % (0.0-3.0) Basophils (%) (Auto) 0.5 % (0.0-2.0) 0.8 % (0.0-2.0) Prothrombin Time 11.3 SEC (9.30-11.50) Prothromb Time International Ratio 1.1 (0.9-1.1) Sodium Level 143 MMOL/L (136-145) 141 MMOL/L (136-145) Potassium Level 3.4 MMOL/L (3.5-5.1) 3.8 MMOL/L (3.5-5.1) Chloride Level 101 MMOL/L (98-107) 102 MMOL/L (98-107) Carbon Dioxide Level 37 MMOL/L (21-32) 37 MMOL/L (21-32) Anion Gap 5 mmol/L (5-15) 2 mmol/L (5-15) Blood Urea Nitrogen 30 mg/dL (7-18) 30 mg/dL (7-18) Creatinine 0.7 MG/DL (0.55-1.30) 0.7 MG/DL (0.55-1.30) Estimat Glomerular Filtration Rate mL/min (>60) mL/min (>60) Glucose Level 120 MG/DL (74-106) 127 MG/DL (74-106) Calcium Level 7.9 MG/DL (8.5-10.1) 7.8 MG/DL (8.5-10.1) Phosphorus Level 4.2 MG/DL (2.5-4.9) Magnesium Level 2.0 MG/DL (1.8-2.4) Total Bilirubin 4.1 MG/DL (0.2-1.0) 3.6 MG/DL (0.2-1.0) Direct Bilirubin 3.3 MG/DL (0.0-0.3) 3.0 MG/DL (0.0-0.3) Aspartate Amino Transf (AST/SGOT) 99 U/L (15-37) 140 U/L (15-37) Alanine Aminotransferase (ALT/SGPT) 62 U/L (12-78) 80 U/L (12-78) Alkaline Phosphatase 1659 U/L (46-116) 2055 U/L (46-116) Total Protein 5.6 G/DL (6.4-8.2) 5.9 G/DL (6.4-8.2) Albumin 1.6 G/DL (3.4-5.0) 1.7 G/DL (3.4-5.0) Globulin 4.0 g/dL 4.2 g/dL Albumin/Globulin Ratio 0.4 (1.0-2.7) 0.4 (1.0-2.7) Cytomegalovirus DNA PCR copies/ml 8820 IU/mL (Negative) Cytomegalovirus DNA PCR log10 3.945 (.) Varicella-Zoster IgG Antibody 2253 index (Immune >165) Varicella-Zoster IgM Antibody <0.91 index (0.00-0.90) Arterial Blood pH 7.619 (7.350-7.450) Arterial Blood Partial Pressure CO2 35.8 mmHg (35.0-45.0) Arterial Blood Partial Pressure O2 376.1 mmHg (75.0-100.0) Arterial Blood HCO3 35.7 mmol/L (22.0-26.0) Arterial Blood Oxygen Saturation 99.3 % (92.0-98.0) Arterial Blood Base Excess 13.5 Luis A Test Positive Pro-B-Type Natriuretic Peptide 1691 pg/mL (0-125) Test 10/16/17 05:45 White Blood Count 9.9 K/UL (4.8-10.8) Red Blood Count 2.55 M/UL (4.70-6.10) Hemoglobin 7.9 G/DL (14.2-18.0) Hematocrit 25.1 % (42.0-52.0) Mean Corpuscular Volume 98 FL (80-99) Mean Corpuscular Hemoglobin 31.0 PG (27.0-31.0) Mean Corpuscular Hemoglobin Concent 31.5 G/DL (32.0-36.0) Red Cell Distribution Width 16.7 % (11.6-14.8) Platelet Count 146 K/UL (150-450) Mean Platelet Volume 8.6 FL (6.5-10.1) Neutrophils (%) (Auto) % (45.0-75.0) Lymphocytes (%) (Auto) % (20.0-45.0) Monocytes (%) (Auto) % (1.0-10.0) Eosinophils (%) (Auto) % (0.0-3.0) Basophils (%) (Auto) % (0.0-2.0) Differential Total Cells Counted 100 Neutrophils % (Manual) 75 % (45-75) Lymphocytes % (Manual) 15 % (20-45) Monocytes % (Manual) 10 % (1-10) Eosinophils % (Manual) 0 % (0-3) Basophils % (Manual) 0 % (0-2) Band Neutrophils 0 % (0-8) Platelet Estimate Decreased Platelet Morphology Normal Anisocytosis 1+ Prothrombin Time 10.7 SEC (9.30-11.50) Prothromb Time International Ratio 1.0 (0.9-1.1) Sodium Level 139 MMOL/L (136-145) Potassium Level 3.9 MMOL/L (3.5-5.1) Chloride Level 103 MMOL/L (98-107) Carbon Dioxide Level 36 MMOL/L (21-32) Anion Gap 1 mmol/L (5-15) Blood Urea Nitrogen 28 mg/dL (7-18) Creatinine 0.7 MG/DL (0.55-1.30) Estimat Glomerular Filtration Rate mL/min (>60) Glucose Level 121 MG/DL (74-106) Calcium Level 8.1 MG/DL (8.5-10.1) Total Bilirubin 3.6 MG/DL (0.2-1.0) Direct Bilirubin 2.8 MG/DL (0.0-0.3) Gamma Glutamyl Transpeptidase 1377 U/L (5-85) Aspartate Amino Transf (AST/SGOT) 106 U/L (15-37) Alanine Aminotransferase (ALT/SGPT) 79 U/L (12-78) Alkaline Phosphatase 1839 U/L (46-116) Pro-B-Type Natriuretic Peptide 1661 pg/mL (0-125) Total Protein 6.4 G/DL (6.4-8.2) Albumin 1.8 G/DL (3.4-5.0) Globulin 4.6 g/dL Albumin/Globulin Ratio 0.4 (1.0-2.7) Risk Assessment & Plan Assessment: [email or web address] Plan: mac Status Change Before Surgery: No Pre-Antibiotics Drug: ancef Given Within 1 Hr of Incision: Yes CRISTIAN MUNOZ Oct 16, 2017 06:30
[2017-10-16 07:25] LABS: HEMATOCRIT 25.1 % (42.0-52.0); HEMOGLOBIN 7.9 G/DL (14.2-18.0); MEAN CORPUSCULAR VOLUME 98 FL (80-99); PLATELET COUNT 146 K/UL (150-450); RED BLOOD COUNT 2.55 M/UL (4.70-6.10); RED CELL DISTRIBUTION WIDTH 16.7 % (11.6-14.8); WHITE BLOOD COUNT 9.9 K/UL (4.8-10.8)
[2017-10-16 07:51] LABS: ALANINE AMINOTRANSFERASE 79 U/L (12-78); ALBUMIN 1.8 G/DL (3.4-5.0); ALBUMIN/GLOBULIN RATIO 0.4 (1.0-2.7); ALKALINE PHOSPHATASE 1839 U/L (46-116); ANION GAP 1 mmol/L (5-15); ASPARTATE AMINO TRANSFERASE 106 U/L (15-37); BILIRUBIN,TOTAL 3.6 MG/DL (0.2-1.0); BLOOD UREA NITROGEN 28 mg/dL (7-18); CALCIUM 8.1 MG/DL (8.5-10.1); CARBON DIOXIDE 36 MMOL/L (21-32); CHLORIDE 103 MMOL/L (98-107); CREATININE 0.7 MG/DL (0.55-1.30); POTASSIUM 3.9 MMOL/L (3.5-5.1); SODIUM 139 MMOL/L (136-145)
[2017-10-16 08:00] VITALS: BP 129/60
[2017-10-16 08:00] LABS: BILIRUBIN,DIRECT 2.8 MG/DL (0.0-0.3)
--- NOTE | 2017-10-16 08:13 | Diagnostic Imaging Report ---
APPROVED REPORT CPT Code: 61341 Present Symptoms Lower Extremity Pain: Left BILATERAL: Imaging reveals a patent deep venous system bilaterally. There is no evidence of thrombus within the femoral, popliteal or tibial segments. The greater saphenous veins are also within normal limits. Doppler indicates normal spontaneous flow within these segments.
[2017-10-16] MEDS ORDERED: ceFAZolin sod 1 GM in D5W 55 ML IVPB ONE (09:00)
[2017-10-16] MEDS: dilTIAZem HCl 30mg tab NG SCH ×2 (09:00→18:28)
[2017-10-16] MEDS: Ketotifen Fumarate 0.035% 5ml BOTH EYES SCH (09:05)
[2017-10-16] MEDS: Pantoprazole Inj IVP SCH (09:05)
--- NOTE | 2017-10-16 09:24 | Diagnostic Imaging Report ---
Indication: Elevated LFTs. Assess for ascites. Technique: US ABD Complete Comparison: Is made to CT of the abdomen and pelvis 09/30/1717 Findings: Imaged portions of the pancreatic head grossly unremarkable. The body and tail not well seen. Right lobe of liver measures approximately 17 cm in length. Hepatic contour appears smooth. No focal liver lesions appreciated sonographically. Echogenic material noted within the gallbladder, possibly gallbladder sludge. The gallbladder wall is thickened measuring 6 m diameter. There is question of trace pericholecystic fluid versus gallbladder wall edema. The common bile duct measures 7 mm in diameter. No appreciable intrahepatic biliary ductal dilatation seen. Kidneys are symmetric in size and parenchymal echogenicity is within normal limits. No hydronephrosis or sonographically appreciable renal stones. Spleen unremarkable in size and appearance. Note the previously described splenic lesion seen on CT are not appreciated on ultrasound. Imaged portions of the aorta and IVC are normal in caliber. No ascites seen. right pleural effusion partially visualized. IMPRESSION: No significant ascites identified. Echogenic material within the gallbladder possibly representing sludge. There is thickening of the gallbladder wall with possible gallbladder wall edema, possibly related to anasarca seen on prior CT. Findings are equivocal. Correlate clinically to assess for cholecystitis. Consider repeat HIDA scan.
--- NOTE | 2017-10-16 09:25 | Diagnostic Imaging Report ---
Indication: Dyspnea Technique: XRAY Chest 1v Comparison: 10/15/2017 Findings: Tracheostomy and enteric tubes unchanged. Heart size and mediastinal contours are stable. No significant interval change in extensive interstitial and patchy bilateral airspace opacities. There are small bilateral pleural effusions. No definite pneumothorax. Degenerative changes of the spine. IMPRESSION: No significant interval change in appearance of the heart and lungs compared to one day prior.
[2017-10-16] MEDS: D5 1/2NS 1,000 ML IV SCH ×2 (09:50→23:53)
--- NOTE | 2017-10-16 10:54 | Infectious Diseases Prog Note ---
Assessment/Plan Assessment/Plan The patient is a 76-year-old female w Fever, SP Leukocytosis, resolved Community-acquired vs healthcare-associated pneumonia, s/p RX (the patient has been recently hospitalized in [facility]). -now ARDS- BAL : Laila an Nl devon , AFB : Neg -CT chest 10/07: Extensive diffuse bilateral pulmonary parenchymal disease, slightly worse than on prior exam of 09/23/2017. Main differential considerations include pneumonia, ARDS, pulmonary edema, among multiple other possibilities. Bilateral moderate to large pleural effusions, slightly increased in size from 09/23/2017. Nasogastric and endotracheal tubes in good position. Evidence of generalized anasarca, with diffuse subcutaneous soft tissue edema. Probable influenza despite of negative influenza screening test, s/p Rx Abnormal liver function tests, ALP>>> AST -2ry to sludged CBD ,cholangitis, obstruction on CBD; AST/ALT normal now, ALP improved but now worsening again -s/p ERCP 10/08: Intraoperative images demonstrate faint opacification of the common bile duct, and placement of a new plastic endobiliary stent. What may be a previous malpositioned biliary stent is seen to the left of the endoscope -CT abd/p 10/07: Anasarca, also previously described, currently similar except for increased size of bilateral pleural fluid described on chest CT. Gallbladder wall edema, probably a manifestation of anasarca, although acute cholecystitis not excludable. Note that similar findings were seen on the previous study, which was followed by a negative HIDA scan. Endometrial biliary stent now present. Mild central intrahepatic biliary ductal dilatation despite this. Low-attenuation areas in the spleen, as described. Equivocal clinically evident previously in retrospect that much more conspicuous currently, probably due to less image artifact on the current study. These are nonspecific, could represent cysts, infarcts, areas of inflammation, much less likely neoplasm. Satisfactory position of nasogastric tube. 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 Nonspecific inflammatory changes surrounding the hips. Right hip region lipoma -s/p ERCP with stent placement 10/01 -EUS 09/30: 1. Dilated common bile duct with lots of sludge in the distal common bile duct, most probably explanation for abnormal liver function tests. 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 Depression. Anemia. Rheumatoid arthritis. History of gastritis. PLAN: monitor pt off of Ab Rx - 10/11 SP Ertapenem #7/7 10/09 SP MIcafungin #10 10/02 SP Amikacin #10 09/30 SP Flagyl #8 09/25 sp Fluconazole #3 (held due to rise ALP) 09/23 SP Meropenem #5, PO Vanco #2 09/21 SP tamiflu #10 -f/u AFB cultures ( BAL) : P -f/u Asp ag, fungitell, Cocci ab, fungal sp cx (called lab on 10/09 for f/u on these tests; was told they are still pending and they will call [facility] for an update). Monitor CBC.; Trend WBC Monitor BMP.; Trend LFTs Monitor chest x-ray -GI, heme onc f/u Subjective Allergies: Coded Allergies: No Known Allergies (Verified , 11/18/08) Subjective no acute event afebrile Objective Vital Signs Last 24 Hour Vital Signs Date Time Temp Pulse Resp B/P (MAP) Pulse Ox O2 Delivery O2 Flow Rate FiO2 10/16/17 09:28 86 20 40 10/16/17 09:00 81 129/60 10/16/17 08:00 40 10/16/17 08:00 81 10/16/17 08:00 98.6 73 18 129/60 100 Mechanical Ventilator 40 98.6 78 10/16/17 07:16 90 20 40 10/16/17 04:51 80 20 40 10/16/17 04:00 97.9 78 18 137/66 99 Mechanical Ventilator 40 97.9 78 10/16/17 04:00 75 10/16/17 04:00 40 10/16/17 03:17 92 20 40 10/16/17 01:19 88 20 40 10/16/17 00:00 94 10/16/17 00:00 40 10/16/17 00:00 98.3 90 18 130/71 98 Mechanical Ventilator 40 98.3 10/15/17 23:29 85 20 40 10/15/17 21:04 82 18 40 10/15/17 20:00 88 10/15/17 20:00 40 10/15/17 20:00 98.0 89 18 104/60 100 Mechanical Ventilator 40 98.0 10/15/17 18:38 108 30 40 10/15/17 17:22 91 113/60 10/15/17 17:01 91 20 40 10/15/17 16:00 86 10/15/17 16:00 99.1 83 18 113/60 100 Mechanical Ventilator 40 99.1 10/15/17 16:00 40 10/15/17 14:49 93 18 40 10/15/17 12:55 90 18 40 10/15/17 12:00 40 10/15/17 12:00 98.9 66 13 114/69 100 Mechanical Ventilator 40 98.9 10/15/17 12:00 92 Height (Feet): 5 Height (Inches): 4.00 Weight (Pounds): 90 HEENT: atraumatic Respiratory/Chest: no respiratory distress Cardiovascular: regular rhythm Abdomen: no organomegaly Microbiology Date/Time Source Procedure Growth Status 10/13/17 13:00 Body Fluid AFB Specimen Processing Tissue - Final Resulted 10/13/17 13:00 Body Fluid Acid Fast Bacilli Smear - Final Resulted 10/13/17 13:00 Body Fluid Acid Fast Bacilli Culture Pending Resulted 10/13/17 13:00 Bronchial Brushings Gram Stain - Final Resulted 10/13/17 13:00 Aerobic Culture - Preliminary Laila Albicans Usual Skin Devon Resulted 10/13/17 13:00 Bronchial Brushings Anaerobic Culture Pending Resulted Laboratory Tests Test 10/16/17 05:45 White Blood Count 9.9 K/UL (4.8-10.8) Red Blood Count 2.55 M/UL (4.70-6.10) L Hemoglobin 7.9 G/DL (14.2-18.0) L Hematocrit 25.1 % (42.0-52.0) L Mean Corpuscular Volume 98 FL (80-99) Mean Corpuscular Hemoglobin 31.0 PG (27.0-31.0) Mean Corpuscular Hemoglobin Concent 31.5 G/DL (32.0-36.0) L Red Cell Distribution Width 16.7 % (11.6-14.8) H Platelet Count 146 K/UL (150-450) L Mean Platelet Volume 8.6 FL (6.5-10.1) Neutrophils (%) (Auto) % (45.0-75.0) Lymphocytes (%) (Auto) % (20.0-45.0) Monocytes (%) (Auto) % (1.0-10.0) Eosinophils (%) (Auto) % (0.0-3.0) Basophils (%) (Auto) % (0.0-2.0) Differential Total Cells Counted 100 Neutrophils % (Manual) 75 % (45-75) Lymphocytes % (Manual) 15 % (20-45) L Monocytes % (Manual) 10 % (1-10) Eosinophils % (Manual) 0 % (0-3) Basophils % (Manual) 0 % (0-2) Band Neutrophils 0 % (0-8) Platelet Estimate Decreased L Platelet Morphology Normal Anisocytosis 1+ Prothrombin Time 10.7 SEC (9.30-11.50) Prothromb Time International Ratio 1.0 (0.9-1.1) Sodium Level 139 MMOL/L (136-145) Potassium Level 3.9 MMOL/L (3.5-5.1) Chloride Level 103 MMOL/L (98-107) Carbon Dioxide Level 36 MMOL/L (21-32) H Anion Gap 1 mmol/L (5-15) L Blood Urea Nitrogen 28 mg/dL (7-18) H Creatinine 0.7 MG/DL (0.55-1.30) Estimat Glomerular Filtration Rate mL/min (>60) Glucose Level 121 MG/DL (74-106) H Calcium Level 8.1 MG/DL (8.5-10.1) L Total Bilirubin 3.6 MG/DL (0.2-1.0) H Direct Bilirubin 2.8 MG/DL (0.0-0.3) H Gamma Glutamyl Transpeptidase 1377 U/L (5-85) H Aspartate Amino Transf (AST/SGOT) 106 U/L (15-37) H Alanine Aminotransferase (ALT/SGPT) 79 U/L (12-78) H Alkaline Phosphatase 1839 U/L (46-116) H Pro-B-Type Natriuretic Peptide 1661 pg/mL (0-125) H Total Protein 6.4 G/DL (6.4-8.2) Albumin 1.8 G/DL (3.4-5.0) L Globulin 4.6 g/dL Albumin/Globulin Ratio 0.4 (1.0-2.7) L Current Medications Medications (Trade) Dose Ordered Sig/Hermes Route PRN Reason Start Time Stop Time Status Last Admin Dose Admin Acetaminophen (Tylenol) 650 mg Q6H PRN NG Fever/Headache/Mild Pain 10/14/17 17:00 11/10/17 16:59 Al Hydroxide/Mg Hydroxide (Mylanta) 15 ml Q1H PRN ORAL gi upset 10/16/17 06:30 10/16/17 16:00 Albuterol/ Ipratropium (Albuterol/ Ipratropium) 3 ml Q4H PRN HHN shortness of breath 10/14/17 17:00 10/16/17 16:59 Atropine Sulfate (Atropine) 0.5 mg Q5M PRN IV bpm less than 45 10/16/17 06:30 10/16/17 16:00 Clotrimazole (Lotrimin) 1 applic EVERY 12 HOURS TOPIC 10/14/17 21:00 11/09/17 22:59 10/16/17 09:06 Dextrose/Sodium Chloride 1,000 ml @ 75 mls/hr [id number] IV 10/15/17 21:30 11/14/17 21:29 10/16/17 09:50 Diltiazem HCl (Cardizem) 30 mg BID NG 10/14/17 18:00 11/10/17 08:59 10/15/17 17:22 Diphenhydramine HCl (Benadryl) 25 mg Q15M PRN IVP Itching 10/16/17 06:30 10/16/17 16:00 Fentanyl Citrate (Sublimaze 100 mcg/2 mL) 25 mcg Q10M PRN IV Moderate Pain (Pain Scale 4-6) 10/16/17 06:30 10/16/17 16:00 Furosemide (Lasix) 40 mg DAILY IV 10/15/17 09:00 11/12/17 08:59 10/16/17 09:05 Hydralazine HCl (Apresoline) 5 mg Q30M PRN IV SBP>160 OR___/DBP>90 OR___ 10/16/17 06:30 10/16/17 16:00 Insulin Aspart (NovoLOG) EVERY 6 HOURS SUBQ 10/14/17 18:00 10/17/17 11:59 10/16/17 06:02 Ketotifen Fumarate (Zatidor) 1 drop DAILY BOTH EYES 10/15/17 09:00 10/25/17 08:59 10/16/17 09:05 Ondansetron HCl (Zofran) 4 mg Q1H PRN IVP Nausea & Vomiting 10/16/17 06:30 10/16/17 16:00 Pantoprazole (Protonix) 40 mg DAILY IVP 10/15/17 09:00 11/01/17 08:59 10/16/17 09:05 Potassium Chloride (K-Dur) 20 meq DAILY ORAL 10/15/17 09:00 11/12/17 08:59 10/15/17 08:47 Edis Hunter MD Oct 16, 2017 10:54
[2017-10-16] MEDS ORDERED: Propofol 200mg/20ml IV ONE (11:00)
[2017-10-16] MEDS ORDERED: Lidocaine 1% MPF 10mg/ml 5ml ONE (11:00)
--- NOTE | 2017-10-16 11:28 | General Progress Note ---
Assessment/Plan Assessment/Plan Assessment - Resp failure / ARDS / PNA - s/p trach - Abnormal LFT, Biliary obstruction - s/p stent - cause of rising Alk phos unclear (GGT high also), - ? biliary sludge, - ? poorly draining stent, - ? intrahepatic cholestasis, - no current suspect drugs at this time but has been on a number of abx associated with cholestasis - ? infiltrative d/o - Jaundice - bili improved - Anemia with OB (+) stools - coagulopathy - improved - Malnutrition - hypernatremia - AMS - improved Recommendations - follow labs - PEG today - Minimize medication use, given LFT changes - transfuse PRN - Elevate HOB - Vent care - Monitor labs - follow LFT Subjective Allergies: Coded Allergies: No Known Allergies (Verified , 11/18/08) Subjective Above noted NPO for PEG LFT slightly better today U/S reviewed with radiology - no ascites and no biliary dilation Objective Last 24 Hour Vital Signs Date Time Temp Pulse Resp B/P (MAP) Pulse Ox O2 Delivery O2 Flow Rate FiO2 10/16/17 11:05 87 20 40 10/16/17 09:28 86 20 40 10/16/17 09:00 81 129/60 10/16/17 08:00 40 10/16/17 08:00 81 10/16/17 08:00 98.6 73 18 129/60 100 Mechanical Ventilator 40 98.6 78 10/16/17 07:16 90 20 40 10/16/17 04:51 80 20 40 10/16/17 04:00 97.9 78 18 137/66 99 Mechanical Ventilator 40 97.9 78 10/16/17 04:00 75 10/16/17 04:00 40 10/16/17 03:17 92 20 40 10/16/17 01:19 88 20 40 10/16/17 00:00 94 10/16/17 00:00 40 10/16/17 00:00 98.3 90 18 130/71 98 Mechanical Ventilator 40 98.3 10/15/17 23:29 85 20 40 10/15/17 21:04 82 18 40 10/15/17 20:00 88 10/15/17 20:00 40 10/15/17 20:00 98.0 89 18 104/60 100 Mechanical Ventilator 40 98.0 10/15/17 18:38 108 30 40 10/15/17 17:22 91 113/60 10/15/17 17:01 91 20 40 10/15/17 16:00 86 10/15/17 16:00 99.1 83 18 113/60 100 Mechanical Ventilator 40 99.1 10/15/17 16:00 40 10/15/17 14:49 93 18 40 10/15/17 12:55 90 18 40 10/15/17 12:00 40 10/15/17 12:00 98.9 66 13 114/69 100 Mechanical Ventilator 40 98.9 10/15/17 12:00 92 Intake and Output 10/15/17 10/16/17 19:00 07:00 Intake Total 630 ml 882.5 ml Output Total 1800 ml 550 ml Balance -1170 ml 332.5 ml Intake Free Water 100 ml IV Total 682.5 ml Tube Feeding 600 ml 100 ml Other 30 ml Output Urine Total 1800 ml 550 ml # Bowel Movements 3 Laboratory Tests 10/16/17 05:45: White Blood Count 9.9, Red Blood Count 2.55L, Hemoglobin 7.9L, Hematocrit 25.1L , Mean Corpuscular Volume 98, Mean Corpuscular Hemoglobin 31.0, Mean Corpuscular Hemoglobin Concent 31.5L, Red Cell Distribution Width 16.7H, Platelet Count 146L, Mean Platelet Volume 8.6, Neutrophils (%) (Auto) , Lymphocytes (%) (Auto) , Monocytes (%) (Auto) , Eosinophils (%) (Auto) , Basophils (%) (Auto) , Differential Total Cells Counted 100, Neutrophils % ( Manual) 75, Lymphocytes % (Manual) 15L, Monocytes % (Manual) 10, Eosinophils % ( Manual) 0, Basophils % (Manual) 0, Band Neutrophils 0, Platelet Estimate DecreasedL, Platelet Morphology Normal, Anisocytosis 1+, Prothrombin Time 10.7, Prothromb Time International Ratio 1.0, Sodium Level 139, Potassium Level 3.9, Chloride Level 103, Carbon Dioxide Level 36H, Anion Gap 1L, Blood Urea Nitrogen 28H, Creatinine 0.7, Estimat Glomerular Filtration Rate , Glucose Level 121H, Calcium Level 8.1L, Total Bilirubin 3.6H, Direct Bilirubin 2.8H, Gamma Glutamyl Transpeptidase 1377H, Aspartate Amino Transf (AST/SGOT) 106H, Alanine Aminotransferase (ALT/SGPT) 79H, Alkaline Phosphatase 1839H, Pro-B-Type Natriuretic Peptide 1661H, Total Protein 6.4, Albumin 1.8L, Globulin 4.6, Albumin/Globulin Ratio 0.4L Height (Feet): 5 Height (Inches): 4.00 Weight (Pounds): 90 Objective WDWN NCAT supple, (+) trach CTA RRR abd soft (+) LE edema opens eyes ARNULFO DURON Oct 16, 2017 11:28
--- NOTE | 2017-10-16 11:30 | Pulmonolgy Critical Care Note ---
Critical Care - Asmt/Plan Problems: (1) ARDS (adult respiratory distress syndrome) (2) Aspiration pneumonia (3) Anemia (4) Thrombocytopenia (5) Diabetes mellitus (6) Protein-calorie malnutrition, severe Respiratory: monitor respiratory rate, adjust FIO2, CXR, weaning trial Cardiac: continue to monitor HR/BP Renal: F/U I&O, keep IV fluid, check electrolytes Infectious Disease: check cultures Gastrointestinal: hold feedings Endocrine: monitor blood sugar, check TSH, continue sliding scale insulin Hematologic: transfuse if hgb<8.5 Neurologic: PRN Ativan, keep patient comfortable Affect: PRN ativan Prophylaxis: Protonix, Heparin Notes Reviewed: concrete floater, renal Discussed with: nurses, consultants, case management social workerdrilling engineering manager - Objective Last 24 Hour Vital Signs Date Time Temp Pulse Resp B/P (MAP) Pulse Ox O2 Delivery O2 Flow Rate FiO2 10/16/17 11:05 87 20 40 10/16/17 09:28 86 20 40 10/16/17 09:00 81 129/60 10/16/17 08:00 40 10/16/17 08:00 81 10/16/17 08:00 98.6 73 18 129/60 100 Mechanical Ventilator 40 98.6 78 10/16/17 07:16 90 20 40 10/16/17 04:51 80 20 40 10/16/17 04:00 97.9 78 18 137/66 99 Mechanical Ventilator 40 97.9 78 10/16/17 04:00 75 10/16/17 04:00 40 10/16/17 03:17 92 20 40 10/16/17 01:19 88 20 40 10/16/17 00:00 94 10/16/17 00:00 40 10/16/17 00:00 98.3 90 18 130/71 98 Mechanical Ventilator 40 98.3 10/15/17 23:29 85 20 40 10/15/17 21:04 82 18 40 10/15/17 20:00 88 10/15/17 20:00 40 10/15/17 20:00 98.0 89 18 104/60 100 Mechanical Ventilator 40 98.0 10/15/17 18:38 108 30 40 10/15/17 17:22 91 113/60 10/15/17 17:01 91 20 40 10/15/17 16:00 86 10/15/17 16:00 99.1 83 18 113/60 100 Mechanical Ventilator 40 99.1 10/15/17 16:00 40 10/15/17 14:49 93 18 40 10/15/17 12:55 90 18 40 10/15/17 12:00 40 10/15/17 12:00 98.9 66 13 114/69 100 Mechanical Ventilator 40 98.9 10/15/17 12:00 92 Status: sedated Condition: critical HEENT: atraumatic, normocephalic Neck: full ROM Lungs: clear Heart: HR/BP stable Abdomen: soft, non-tender, active bowel sounds, feeding tube Extremities: no C/C/E, edema Micro: Microbiology Date/Time Source Procedure Growth Status 10/13/17 13:00 Body Fluid AFB Specimen Processing Tissue - Final Resulted 10/13/17 13:00 Body Fluid Acid Fast Bacilli Smear - Final Resulted 10/13/17 13:00 Body Fluid Acid Fast Bacilli Culture Pending Resulted 10/13/17 13:00 Bronchial Brushings Gram Stain - Final Resulted 10/13/17 13:00 Aerobic Culture - Preliminary Laila Albicans Usual Skin Sapphire Resulted 10/13/17 13:00 Bronchial Brushings Anaerobic Culture Pending Resulted Accucheck: 127 Critical Care - Subjective ROS Limited/Unobtainable: Yes Interval Events: having Gtube insertion now Condition: critical EKG Rhythm: Sinus Rhythm FI02: 40 Vent Support Breath Rate: 18 Vent Support Mode: AC Vent Tidal Volume: 450 Sputum Amount: Small PEEP: 4.0 PIP: 37 Tube Feeding Amount: 50 I&O: Intake and Output 10/15/17 10/16/17 19:00 07:00 Intake Total 630 ml 882.5 ml Output Total 1800 ml 550 ml Balance -1170 ml 332.5 ml Intake Free Water 100 ml IV Total 682.5 ml Tube Feeding 600 ml 100 ml Other 30 ml Output Urine Total 1800 ml 550 ml # Bowel Movements 3 CXR: no changes ET-Tube: 7.5 ET Position: 21 Labs: Laboratory Tests Test 10/16/17 05:45 White Blood Count 9.9 K/UL (4.8-10.8) Red Blood Count 2.55 M/UL (4.70-6.10) L Hemoglobin 7.9 G/DL (14.2-18.0) L Hematocrit 25.1 % (42.0-52.0) L Mean Corpuscular Volume 98 FL (80-99) Mean Corpuscular Hemoglobin 31.0 PG (27.0-31.0) Mean Corpuscular Hemoglobin Concent 31.5 G/DL (32.0-36.0) L Red Cell Distribution Width 16.7 % (11.6-14.8) H Platelet Count 146 K/UL (150-450) L Mean Platelet Volume 8.6 FL (6.5-10.1) Neutrophils (%) (Auto) % (45.0-75.0) Lymphocytes (%) (Auto) % (20.0-45.0) Monocytes (%) (Auto) % (1.0-10.0) Eosinophils (%) (Auto) % (0.0-3.0) Basophils (%) (Auto) % (0.0-2.0) Differential Total Cells Counted 100 Neutrophils % (Manual) 75 % (45-75) Lymphocytes % (Manual) 15 % (20-45) L Monocytes % (Manual) 10 % (1-10) Eosinophils % (Manual) 0 % (0-3) Basophils % (Manual) 0 % (0-2) Band Neutrophils 0 % (0-8) Platelet Estimate Decreased L Platelet Morphology Normal Anisocytosis 1+ Prothrombin Time 10.7 SEC (9.30-11.50) Prothromb Time International Ratio 1.0 (0.9-1.1) Sodium Level 139 MMOL/L (136-145) Potassium Level 3.9 MMOL/L (3.5-5.1) Chloride Level 103 MMOL/L (98-107) Carbon Dioxide Level 36 MMOL/L (21-32) H Anion Gap 1 mmol/L (5-15) L Blood Urea Nitrogen 28 mg/dL (7-18) H Creatinine 0.7 MG/DL (0.55-1.30) Estimat Glomerular Filtration Rate mL/min (>60) Glucose Level 121 MG/DL (74-106) H Calcium Level 8.1 MG/DL (8.5-10.1) L Total Bilirubin 3.6 MG/DL (0.2-1.0) H Direct Bilirubin 2.8 MG/DL (0.0-0.3) H Gamma Glutamyl Transpeptidase 1377 U/L (5-85) H Aspartate Amino Transf (AST/SGOT) 106 U/L (15-37) H Alanine Aminotransferase (ALT/SGPT) 79 U/L (12-78) H Alkaline Phosphatase 1839 U/L (46-116) H Pro-B-Type Natriuretic Peptide 1661 pg/mL (0-125) H Total Protein 6.4 G/DL (6.4-8.2) Albumin 1.8 G/DL (3.4-5.0) L Globulin 4.6 g/dL Albumin/Globulin Ratio 0.4 (1.0-2.7) L Tayler Liu MD Oct 16, 2017 11:30
--- NOTE | 2017-10-16 11:37 | Pre-Procedure Note/Attestation ---
Pre-Procedure Note/Attestation Complete Prior to Procedure Planned Procedure: not applicable Procedure Narrative: EGD PEG Indications for Procedure Pre-Operative Diagnosis: Anemia Dysphagia Attestation I attest that I discussed the nature of the procedure; its benefits; risks and complications; and alternatives (and the risks and benefits of such alternatives ), prior to the procedure, with the patient (or the patient's legal automotive leasing sales representative). I attest that, if there was a reasonable possibility of needing a blood transfusion, the patient (or the patient's legal automotive leasing sales representative) was given the [facility] standardized written summary, pursuant to the Tristan Linette Blood Safety Act ([place] Health and Safety Code # 1645, as amended). I attest that I re-evaluated the patient just prior to the surgery and that there has been no change in the patient's H&P, except as documented below: ARNULFO DURON Oct 16, 2017 11:37
--- NOTE | 2017-10-16 11:59 | Endoscopy Procedure Note ---
Endoscopy Procedure Note General Indication for Procedure: dysphagia Procedures Performed: EGD, PEG Operative Findings/Diagnosis: PEG Specimen: none Pt Tolerated Procedure Well: Yes Estimated Blood Loss: none Anesthesia Anesthesiologist: Jasvir Chiu Anesthesia: MAC Medications Medication Given: see anesthesia record Inserted Devices Implant(s) used?: No GI Core Measures 50 yrs or older w/o bx or poly: Not Applicable 10yrs. F/U not recommended: Not Applicable If not recommended, why?: ARNULFO DURON Oct 16, 2017 11:59
[2017-10-16 12:00] VITALS: BP 118/64
--- NOTE | 2017-10-16 12:00 | Brief Operative Note ---
Immediate Post Operative Note Operative Note Chief Complaint: dysphagia Pre-op Diagnosis: Anemia Dysphagia Procedure: EGD PEG Post-op Diagnosis: PEG Surgeon: orquidea Anesthesiologist: Jasvir deluca Specimen: none Complications: none Condition: stable Fluids: recorded Estimated Blood Loss: none Drains: none Implant(s) used?: No ARNULFO DURON Oct 16, 2017 12:00
--- NOTE | 2017-10-16 12:07 | General Progress Note ---
Progress Note Progress Note Surgery: doing well. no acute events. PEG Today. labs reviewed. alk phos decreasing. t bili/d bili down. overall improving. responsive and following commands. trach clean. on vent. wean vent as tolerated. trend labs. thank you Adryan Echevarria Oct 16, 2017 12:07
--- NOTE | 2017-10-16 13:22 | Nephrology Progress Note ---
Assessment/Plan Problem List: (1) ARDS (adult respiratory distress syndrome) (2) Electrolyte imbalance (3) Thrombocytopenia Assessment (1) ARDS (adult respiratory distress syndrome) s/p Trach (2) Aspiration pneumonia (3) Protein-calorie malnutrition, severe (4) Diabetes mellitus (5) Anemia , aplastic by history (6) DM (7) UTI (8) Electrolyte imbalance (9) HTN (10) Depression (11) RA . Plan stable - had trach water via NGT Adjust BP meds K and Phos supplement as needed Monitor renal parameters and urine output avoid nephrotoxics per orders discussed with RN Left ventricular ejection fraction estimated to be 55 %. Subjective ROS Limited/Unobtainable: No Constitutional: Reports: malaise Objective Objective Last 24 Hour Vital Signs Date Time Temp Pulse Resp B/P (MAP) Pulse Ox O2 Delivery O2 Flow Rate FiO2 10/16/17 13:16 74 20 40 10/16/17 12:00 40 10/16/17 11:46 89 10/16/17 11:05 87 20 40 10/16/17 09:28 86 20 40 10/16/17 09:00 81 129/60 10/16/17 08:00 40 10/16/17 08:00 81 10/16/17 08:00 98.6 73 18 129/60 100 Mechanical Ventilator 40 98.6 78 10/16/17 07:16 90 20 40 10/16/17 04:51 80 20 40 10/16/17 04:00 97.9 78 18 137/66 99 Mechanical Ventilator 40 97.9 78 10/16/17 04:00 75 10/16/17 04:00 40 10/16/17 03:17 92 20 40 10/16/17 01:19 88 20 40 10/16/17 00:00 94 10/16/17 00:00 40 10/16/17 00:00 98.3 90 18 130/71 98 Mechanical Ventilator 40 98.3 10/15/17 23:29 85 20 40 10/15/17 21:04 82 18 40 10/15/17 20:00 88 10/15/17 20:00 40 10/15/17 20:00 98.0 89 18 104/60 100 Mechanical Ventilator 40 98.0 10/15/17 18:38 108 30 40 10/15/17 17:22 91 113/60 10/15/17 17:01 91 20 40 10/15/17 16:00 86 10/15/17 16:00 99.1 83 18 113/60 100 Mechanical Ventilator 40 99.1 10/15/17 16:00 40 10/15/17 14:49 93 18 40 Intake and Output 10/15/17 10/16/17 19:00 07:00 Intake Total 630 ml 882.5 ml Output Total 1800 ml 550 ml Balance -1170 ml 332.5 ml Intake Free Water 100 ml IV Total 682.5 ml Tube Feeding 600 ml 100 ml Other 30 ml Output Urine Total 1800 ml 550 ml # Bowel Movements 3 Laboratory Tests 10/16/17 05:45: White Blood Count 9.9, Red Blood Count 2.55L, Hemoglobin 7.9L, Hematocrit 25.1L , Mean Corpuscular Volume 98, Mean Corpuscular Hemoglobin 31.0, Mean Corpuscular Hemoglobin Concent 31.5L, Red Cell Distribution Width 16.7H, Platelet Count 146L, Mean Platelet Volume 8.6, Neutrophils (%) (Auto) , Lymphocytes (%) (Auto) , Monocytes (%) (Auto) , Eosinophils (%) (Auto) , Basophils (%) (Auto) , Differential Total Cells Counted 100, Neutrophils % ( Manual) 75, Lymphocytes % (Manual) 15L, Monocytes % (Manual) 10, Eosinophils % ( Manual) 0, Basophils % (Manual) 0, Band Neutrophils 0, Platelet Estimate DecreasedL, Platelet Morphology Normal, Anisocytosis 1+, Prothrombin Time 10.7, Prothromb Time International Ratio 1.0, Sodium Level 139, Potassium Level 3.9, Chloride Level 103, Carbon Dioxide Level 36H, Anion Gap 1L, Blood Urea Nitrogen 28H, Creatinine 0.7, Estimat Glomerular Filtration Rate , Glucose Level 121H, Calcium Level 8.1L, Total Bilirubin 3.6H, Direct Bilirubin 2.8H, Gamma Glutamyl Transpeptidase 1377H, Aspartate Amino Transf (AST/SGOT) 106H, Alanine Aminotransferase (ALT/SGPT) 79H, Alkaline Phosphatase 1839H, Pro-B-Type Natriuretic Peptide 1661H, Total Protein 6.4, Albumin 1.8L, Globulin 4.6, Albumin/Globulin Ratio 0.4L Height (Feet): 5 Height (Inches): 4.00 Weight (Pounds): 90 General Appearance: no apparent distress Respiratory/Chest: decreased breath sounds Abdomen: soft Objective no change YAEL HANSEN Oct 16, 2017 13:22
--- NOTE | 2017-10-16 13:28 | Immediate Post-Op Evaluation ---
Immediate Post-Op Evalulation Immediate Post-Op Evalulation Procedure: egd/peg Date of Evaluation: Oct 16, 2017 Time of Evaluation: 12:18 IV Fluids: 50ml 0.9ns Blood Products: none Estimated Blood Loss: neglgible Blood Pressure Systolic: 129 Blood Pressure Diastolic: 62 Pulse Rate: 76 Respiratory Rate: 18 O2 Sat by Pulse Oximetry: 100 Pain Score (1-10): 0 Nausea: No Vomiting: No Complications none Patient Status: awake, reacts, patent, ventilated Hydration Status: adequate Drug: ancef Given Within 1 Hr of Incision: Yes CRISTIAN MUNOZ Oct 16, 2017 13:28
[2017-10-16 16:00] VITALS: BP 142/72
--- NOTE | 2017-10-16 17:00 | Cardiac Electrophysiology PN ---
Assessment/Plan Assessment/Plan 1. Vent dependent Respiratory failure, due to underlying ARDS , pneumonia. Already ruled out for myocardial infarction. Now on 45% Fio2 with PEEP of 5. S/P Tracheostomy and Bronchoscopy by Dr. Parekh 2. Left bundle-branch block. No evidence of advanced heart block. 3. HTN and diastolic dysfunction. Echo EF 55% On Cardizem 30 BID 4. Hypernatremia and Azotemia. F/U per Dr. Myaer 5. Pneumonia and sepsis on IV antibiotics by Dr. Hunter. 6. Psychiatric disorder. 7. Anasarca. 3rd spacing. 8. Anemia with Hb 6.6 s/p PRBC. CT chest abdomen and pelvis without contrast no acute finding S/P EGD by Dr Walton. S/P PEG today 9. Severe thrombocytopenia. S/P platelet transfusion 10. Abnormal LFT, Biliary obstruction, possible cholangitis. S/P ERCP. CBD sludge. S/P repeat ERCP and stent by Dr. Walton Bilirubin down to 4 11. High INR 3.5 likely due to hepatic failure. S/P FFP and Vit K. INR 1 DW RN Subjective Subjective No SVT or VT. S/P PEG placement today Objective Last 24 Hour Vital Signs Date Time Temp Pulse Resp B/P (MAP) Pulse Ox O2 Delivery O2 Flow Rate FiO2 10/16/17 16:00 40 10/16/17 15:24 79 20 40 10/16/17 13:28 76 18 100 10/16/17 13:16 74 20 40 10/16/17 12:00 98.7 76 18 118/64 100 Mechanical Ventilator 40 98.7 78 10/16/17 12:00 40 10/16/17 11:46 89 10/16/17 11:05 87 20 40 10/16/17 09:28 86 20 40 10/16/17 09:00 81 129/60 10/16/17 08:00 40 10/16/17 08:00 81 10/16/17 08:00 98.6 73 18 129/60 100 Mechanical Ventilator 40 98.6 78 10/16/17 07:16 90 20 40 10/16/17 04:51 80 20 40 10/16/17 04:00 97.9 78 18 137/66 99 Mechanical Ventilator 40 97.9 78 10/16/17 04:00 75 10/16/17 04:00 40 10/16/17 03:17 92 20 40 10/16/17 01:19 88 20 40 10/16/17 00:00 94 10/16/17 00:00 40 10/16/17 00:00 98.3 90 18 130/71 98 Mechanical Ventilator 40 98.3 10/15/17 23:29 85 20 40 10/15/17 21:04 82 18 40 10/15/17 20:00 88 10/15/17 20:00 40 10/15/17 20:00 98.0 89 18 104/60 100 Mechanical Ventilator 40 98.0 10/15/17 18:38 108 30 40 10/15/17 17:22 91 113/60 10/15/17 17:01 91 20 40 Intake and Output 10/15/17 10/16/17 19:00 07:00 Intake Total 630 ml 882.5 ml Output Total 1800 ml 550 ml Balance -1170 ml 332.5 ml Intake Free Water 100 ml IV Total 682.5 ml Tube Feeding 600 ml 100 ml Other 30 ml Output Urine Total 1800 ml 550 ml # Bowel Movements 3 Laboratory Tests Test 10/16/17 05:45 White Blood Count 9.9 K/UL (4.8-10.8) Red Blood Count 2.55 M/UL (4.70-6.10) L Hemoglobin 7.9 G/DL (14.2-18.0) L Hematocrit 25.1 % (42.0-52.0) L Mean Corpuscular Volume 98 FL (80-99) Mean Corpuscular Hemoglobin 31.0 PG (27.0-31.0) Mean Corpuscular Hemoglobin Concent 31.5 G/DL (32.0-36.0) L Red Cell Distribution Width 16.7 % (11.6-14.8) H Platelet Count 146 K/UL (150-450) L Mean Platelet Volume 8.6 FL (6.5-10.1) Neutrophils (%) (Auto) % (45.0-75.0) Lymphocytes (%) (Auto) % (20.0-45.0) Monocytes (%) (Auto) % (1.0-10.0) Eosinophils (%) (Auto) % (0.0-3.0) Basophils (%) (Auto) % (0.0-2.0) Differential Total Cells Counted 100 Neutrophils % (Manual) 75 % (45-75) Lymphocytes % (Manual) 15 % (20-45) L Monocytes % (Manual) 10 % (1-10) Eosinophils % (Manual) 0 % (0-3) Basophils % (Manual) 0 % (0-2) Band Neutrophils 0 % (0-8) Platelet Estimate Decreased L Platelet Morphology Normal Anisocytosis 1+ Prothrombin Time 10.7 SEC (9.30-11.50) Prothromb Time International Ratio 1.0 (0.9-1.1) Sodium Level 139 MMOL/L (136-145) Potassium Level 3.9 MMOL/L (3.5-5.1) Chloride Level 103 MMOL/L (98-107) Carbon Dioxide Level 36 MMOL/L (21-32) H Anion Gap 1 mmol/L (5-15) L Blood Urea Nitrogen 28 mg/dL (7-18) H Creatinine 0.7 MG/DL (0.55-1.30) Estimat Glomerular Filtration Rate mL/min (>60) Glucose Level 121 MG/DL (74-106) H Calcium Level 8.1 MG/DL (8.5-10.1) L Total Bilirubin 3.6 MG/DL (0.2-1.0) H Direct Bilirubin 2.8 MG/DL (0.0-0.3) H Gamma Glutamyl Transpeptidase 1377 U/L (5-85) H Aspartate Amino Transf (AST/SGOT) 106 U/L (15-37) H Alanine Aminotransferase (ALT/SGPT) 79 U/L (12-78) H Alkaline Phosphatase 1839 U/L (46-116) H Pro-B-Type Natriuretic Peptide 1661 pg/mL (0-125) H Total Protein 6.4 G/DL (6.4-8.2) Albumin 1.8 G/DL (3.4-5.0) L Globulin 4.6 g/dL Albumin/Globulin Ratio 0.4 (1.0-2.7) L Objective HEAD AND NECK: Tracheostomy in place. LUNGS: Coarse rhonchi bilaterally CARDIOVASCULAR: Tachy S1 and S2.No murmur ABDOMEN: Soft.PEG in place EXTREMITIES: No edema. Charlie Darnell MD Oct 16, 2017 17:00
--- NOTE | 2017-10-16 19:36 | Internal Med Progress Note ---
Subjective Date of Service: Oct 16, 2017 Physician Name Sina Bowens Attending Physician Jeuss Barahona MD Current Medications Medications (Trade) Dose Ordered Sig/Hermes Route PRN Reason Start Time Stop Time Status Last Admin Dose Admin Acetaminophen (Tylenol) 650 mg Q6H PRN NG Fever/Headache/Mild Pain 10/14/17 17:00 11/10/17 16:59 Clotrimazole (Lotrimin) 1 applic EVERY 12 HOURS TOPIC 10/14/17 21:00 11/09/17 22:59 10/16/17 09:06 Dextrose/Sodium Chloride 1,000 ml @ 75 mls/hr [id number] IV 10/15/17 21:30 11/14/17 21:29 10/16/17 09:50 Diltiazem HCl (Cardizem) 30 mg BID NG 10/14/17 18:00 11/10/17 08:59 10/16/17 18:28 Furosemide (Lasix) 40 mg DAILY IV 10/15/17 09:00 11/12/17 08:59 10/16/17 09:05 Insulin Aspart (NovoLOG) EVERY 6 HOURS SUBQ 10/14/17 18:00 10/17/17 11:59 10/16/17 06:02 Ketotifen Fumarate (Zatidor) 1 drop DAILY BOTH EYES 10/15/17 09:00 10/25/17 08:59 10/16/17 09:05 Pantoprazole (Protonix) 40 mg DAILY IVP 10/15/17 09:00 11/01/17 08:59 10/16/17 09:05 Potassium Chloride (K-Dur) 20 meq DAILY ORAL 10/15/17 09:00 11/12/17 08:59 10/16/17 13:02 Allergies: Coded Allergies: No Known Allergies (Verified , 11/18/08) ROS Limited/Unobtainable: Yes Subjective 76 YO F admitted with Shortness of breath, now respiratory failure. Intubated and sedated. Cover for Internal Med-Dr. Barahona. RAJINDER . S/P ERCP 10/08/17. S/P Tracheostomy and bronchoscopy 10/13/17 Objective Last Vital Signs Date Time Temp Pulse Resp B/P (MAP) Pulse Ox O2 Delivery O2 Flow Rate FiO2 10/16/17 19:28 75 19 40 10/16/17 18:28 142/72 10/16/17 16:00 98.7 100 Mechanical Ventilator 98.7 Laboratory Tests Test 10/16/17 05:45 White Blood Count 9.9 K/UL (4.8-10.8) Red Blood Count 2.55 M/UL (4.70-6.10) L Hemoglobin 7.9 G/DL (14.2-18.0) L Hematocrit 25.1 % (42.0-52.0) L Mean Corpuscular Volume 98 FL (80-99) Mean Corpuscular Hemoglobin 31.0 PG (27.0-31.0) Mean Corpuscular Hemoglobin Concent 31.5 G/DL (32.0-36.0) L Red Cell Distribution Width 16.7 % (11.6-14.8) H Platelet Count 146 K/UL (150-450) L Mean Platelet Volume 8.6 FL (6.5-10.1) Neutrophils (%) (Auto) % (45.0-75.0) Lymphocytes (%) (Auto) % (20.0-45.0) Monocytes (%) (Auto) % (1.0-10.0) Eosinophils (%) (Auto) % (0.0-3.0) Basophils (%) (Auto) % (0.0-2.0) Differential Total Cells Counted 100 Neutrophils % (Manual) 75 % (45-75) Lymphocytes % (Manual) 15 % (20-45) L Monocytes % (Manual) 10 % (1-10) Eosinophils % (Manual) 0 % (0-3) Basophils % (Manual) 0 % (0-2) Band Neutrophils 0 % (0-8) Platelet Estimate Decreased L Platelet Morphology Normal Anisocytosis 1+ Prothrombin Time 10.7 SEC (9.30-11.50) Prothromb Time International Ratio 1.0 (0.9-1.1) Sodium Level 139 MMOL/L (136-145) Potassium Level 3.9 MMOL/L (3.5-5.1) Chloride Level 103 MMOL/L (98-107) Carbon Dioxide Level 36 MMOL/L (21-32) H Anion Gap 1 mmol/L (5-15) L Blood Urea Nitrogen 28 mg/dL (7-18) H Creatinine 0.7 MG/DL (0.55-1.30) Estimat Glomerular Filtration Rate mL/min (>60) Glucose Level 121 MG/DL (74-106) H Calcium Level 8.1 MG/DL (8.5-10.1) L Total Bilirubin 3.6 MG/DL (0.2-1.0) H Direct Bilirubin 2.8 MG/DL (0.0-0.3) H Gamma Glutamyl Transpeptidase 1377 U/L (5-85) H Aspartate Amino Transf (AST/SGOT) 106 U/L (15-37) H Alanine Aminotransferase (ALT/SGPT) 79 U/L (12-78) H Alkaline Phosphatase 1839 U/L (46-116) H Pro-B-Type Natriuretic Peptide 1661 pg/mL (0-125) H Total Protein 6.4 G/DL (6.4-8.2) Albumin 1.8 G/DL (3.4-5.0) L Globulin 4.6 g/dL Albumin/Globulin Ratio 0.4 (1.0-2.7) L Intake and Output 10/15/17 10/16/17 19:00 07:00 Intake Total 630 ml 882.5 ml Output Total 1800 ml 550 ml Balance -1170 ml 332.5 ml Intake Free Water 100 ml IV Total 682.5 ml Tube Feeding 600 ml 100 ml Other 30 ml Output Urine Total 1800 ml 550 ml # Bowel Movements 3 Objective General Appearance: lethargic, thin EENT: normal ENT inspection Neck: Trach; non-tender, normal alignment, supple Cardiovascular: normal peripheral pulses, normal rate, regular rhythm, no gallop/murmur, no JVD Respiratory/Chest: Mechanical vent; respiratory distress, crackles/rales, rhonchi - bilaterally, expiratory wheezing Abdomen: normal bowel sounds, non tender, soft, no organomegaly, no mass Skin: normal pigmentation, warm/dry Assessment/Plan Problem List: (1) HTN (hypertension) Assessment & Plan: Currently hypotensive. (2) Arthritis, rheumatoid (3) Parkinsons disease (4) Aplastic anemia (5) GERD (gastroesophageal reflux disease) (6) Respiratory failure Assessment & Plan: S/P Tracheostomy and broncholsopy 10/13/17. Cont vent per pulmonary (7) Pneumonia (8) Dyspnea (9) Sepsis Assessment & Plan: Blood culture neg. Continue Amikacin, micafungin and flagyl per ID (10) ARDS (adult respiratory distress syndrome) Assessment & Plan: See pulmonary note (11) UTI (urinary tract infection) Assessment & Plan: E.Coli. Continue abx per ID (12) Anemia Assessment & Plan: S/P Transfusion 2 units PRBC (13) Diabetes mellitus, type II Assessment & Plan: Continue novolog sliding scale (14) Leukocytosis Assessment & Plan: Worsening. See ID note. Start amikacin and fluconazole (15) Thrombocytopenia (16) Gallbladder sludge Assessment & Plan: s/P ERCP 10/01, 10/07/17 and 10/08/17 (17) Coagulopathy Assessment & Plan: S/P FFP and Vit K Assessment/Plan Discharge planning SINA BOWENS Oct 16, 2017 19:36
[2017-10-16 20:00] VITALS: BP 135/69
--- NOTE | 2017-10-16 21:45 | Procedure Note ---
DATE OF PROCEDURE: 10/16/2017 PROCEDURE: Upper gastrointestinal endoscopy with gastrostomy tube placement. SURGEON: Yair Encinas M.D. ANESTHESIOLOGIST: Ameena Hilario M.D. PRE-ENDOSCOPIC DIAGNOSIS: Dysphagia. POST-ENDOSCOPIC DIAGNOSES: Status post gastrostomy tube placement. PROCEDURE: The procedure its risks, indications, alternatives, and possible complications were explained to the patient's family and an informed consent was obtained. The patient was then sedated in the supine position and a diagnostic upper endoscope was introduced through the oropharynx and advanced to the duodenum. The previously placed biliary stent was seen in apparent good position. The remainder of the upper gastrointestinal examination was unremarkable. The location for placement of the gastrostomy tube was identified by palpation and transillumination techniques. The outside skin was sterilely prepared, anesthetized, incised, and the trocar needle was used to place the gastrostomy tube using the standard pull technique. The endoscope was removed and the patient was left to recovery in good condition. COMPLICATIONS: None. RECOMMENDATIONS: 1. Observe overnight. 2. Restart tube feedings tomorrow. Yair Encinas M.D. DR: Olga JOB#: [id number] CC:
--- NOTE | 2017-10-16 23:12 | General Progress Note ---
Assessment/Plan Problem List: (1) Arthritis, rheumatoid ICD Codes: M06.9 - Rheumatoid arthritis, unspecified SNOMED: 27887218 (2) Aspiration pneumonia ICD Codes: J69.0 - Pneumonitis due to inhalation of food and vomit SNOMED: 418281609 (3) Diabetes mellitus ICD Codes: E11.9 - Type 2 diabetes mellitus without complications SNOMED: 80028859 (4) ARDS (adult respiratory distress syndrome) ICD Codes: J80 - Acute respiratory distress syndrome SNOMED: 53762217 (5) Transaminitis ICD Codes: R74.0 - Nonspecific elevation of levels of transaminase and lactic acid dehydrogenase [LDH] SNOMED: 184280275, 191457655 (6) Dyspnea ICD Codes: R06.00 - Dyspnea, unspecified SNOMED: 830477849 (7) Parkinsons disease ICD Codes: G20 - Parkinson's disease SNOMED: 42613234 (8) Sepsis ICD Codes: A41.9 - Sepsis, unspecified organism SNOMED: 24791794 (9) GERD (gastroesophageal reflux disease) ICD Codes: K21.9 - Gastro-esophageal reflux disease without esophagitis SNOMED: 753635246 (10) Aplastic anemia ICD Codes: D61.9 - Aplastic anemia, unspecified SNOMED: 141816604 (11) Pneumonia ICD Codes: J18.9 - Pneumonia, unspecified organism SNOMED: 713447799 (12) HTN (hypertension) ICD Codes: I10 - Essential (primary) hypertension SNOMED: 75656849 Assessment/Plan Encephalopathy, agitation, psychotic disorder. -cont current meds -ativan prn Subjective Allergies: Coded Allergies: No Known Allergies (Verified , 11/18/08) Subjective more awake the pt is calm nad anxious at times Objective Last 24 Hour Vital Signs Date Time Temp Pulse Resp B/P (MAP) Pulse Ox O2 Delivery O2 Flow Rate FiO2 10/16/17 21:25 73 18 40 10/16/17 20:00 40 10/16/17 20:00 98.2 95 20 135/69 100 Mechanical Ventilator 40 98.2 78 10/16/17 19:28 75 19 40 10/16/17 19:19 70 10/16/17 18:28 76 142/72 10/16/17 17:20 78 19 40 10/16/17 16:00 73 10/16/17 16:00 40 10/16/17 16:00 98.7 70 20 142/72 100 Mechanical Ventilator 40 98.7 78 10/16/17 15:24 79 20 40 10/16/17 13:28 76 18 100 10/16/17 13:16 74 20 40 10/16/17 12:00 98.7 76 18 118/64 100 Mechanical Ventilator 40 98.7 78 10/16/17 12:00 40 10/16/17 11:46 89 10/16/17 11:05 87 20 40 10/16/17 09:28 86 20 40 10/16/17 09:00 81 129/60 10/16/17 08:00 40 10/16/17 08:00 81 10/16/17 08:00 98.6 73 18 129/60 100 Mechanical Ventilator 40 98.6 78 10/16/17 07:16 90 20 40 10/16/17 04:51 80 20 40 10/16/17 04:00 97.9 78 18 137/66 99 Mechanical Ventilator 40 97.9 78 10/16/17 04:00 75 10/16/17 04:00 40 10/16/17 03:17 92 20 40 10/16/17 01:19 88 20 40 10/16/17 00:00 94 10/16/17 00:00 40 10/16/17 00:00 98.3 90 18 130/71 98 Mechanical Ventilator 40 98.3 10/15/17 23:29 85 20 40 Intake and Output 10/15/17 10/16/17 19:00 07:00 Intake Total 630 ml 882.5 ml Output Total 1800 ml 550 ml Balance -1170 ml 332.5 ml Intake Free Water 100 ml IV Total 682.5 ml Tube Feeding 600 ml 100 ml Other 30 ml Output Urine Total 1800 ml 550 ml # Bowel Movements 3 Laboratory Tests 10/16/17 05:45: White Blood Count 9.9, Red Blood Count 2.55L, Hemoglobin 7.9L, Hematocrit 25.1L , Mean Corpuscular Volume 98, Mean Corpuscular Hemoglobin 31.0, Mean Corpuscular Hemoglobin Concent 31.5L, Red Cell Distribution Width 16.7H, Platelet Count 146L, Mean Platelet Volume 8.6, Neutrophils (%) (Auto) , Lymphocytes (%) (Auto) , Monocytes (%) (Auto) , Eosinophils (%) (Auto) , Basophils (%) (Auto) , Differential Total Cells Counted 100, Neutrophils % ( Manual) 75, Lymphocytes % (Manual) 15L, Monocytes % (Manual) 10, Eosinophils % ( Manual) 0, Basophils % (Manual) 0, Band Neutrophils 0, Platelet Estimate DecreasedL, Platelet Morphology Normal, Anisocytosis 1+, Prothrombin Time 10.7, Prothromb Time International Ratio 1.0, Sodium Level 139, Potassium Level 3.9, Chloride Level 103, Carbon Dioxide Level 36H, Anion Gap 1L, Blood Urea Nitrogen 28H, Creatinine 0.7, Estimat Glomerular Filtration Rate , Glucose Level 121H, Calcium Level 8.1L, Total Bilirubin 3.6H, Direct Bilirubin 2.8H, Gamma Glutamyl Transpeptidase 1377H, Aspartate Amino Transf (AST/SGOT) 106H, Alanine Aminotransferase (ALT/SGPT) 79H, Alkaline Phosphatase 1839H, Pro-B-Type Natriuretic Peptide 1661H, Total Protein 6.4, Albumin 1.8L, Globulin 4.6, Albumin/Globulin Ratio 0.4L Height (Feet): 5 Height (Inches): 4.00 Weight (Pounds): 90 Dary iNxon M.D. Oct 16, 2017 23:12
--- NOTE | 2017-10-16 23:44 | General Progress Note ---
Assessment/Plan Assessment/Plan #. Pancytopenia --> WBC count and platelet counts are within normal levels now. Hemoglobin low but remains above goal. --> Transfuse platelets if <20k --> Monitor and trend cbc daily. --> Levels have improved. #. Coagulopathy - potentially related to DIC early onset, review hapto, inr repeat, fibrinogen, DIC panel --> administer FFP 4 units and vitamin k repeat prior to procedure --> DW pulm Dr. Parekh --> Likely related to infection versus other cause. On antibiotics. #. Anemia due to underlying chronic disease. Continue to closely monitor. --> Hemoglobin goal is above 7. --> Hemoglobin levels have been downtrending but remain above goal. --> Occult blood detected. Consider GI recs. --> Transfuse as necessary --> Blood transfusion not required unless symptomatic or hgb below goal. #. Leukocytosis likely related to underlying pneumonia infection. --> Resolved on antibiotic treatment. #. Thrombocytopenia, severe and progressive, acute onset, likely secondary to underlying infection, aspiration, hit was negative --> Duplex of the lower extremities is negative, therefore less likely HIT and other causes are more likely such as underlying infection. --> Platelets goal >20k, transfuse if necessary. --> On antibiotics as per ID --> Platelet count has been downtrending, monitor closely. #. Community-acquired pneumonia versus hospital-acquired. --> The patient on broad-spectrum antibiotics. --> Improved. --> Urine culture growing E. coli. Continue to closely monitor. #. Transaminitis. She has been seen by GI Service. Continue to closely monitor. #. Low-grade fever. Closely observe. #. Encephalopathy. Subjective Date patient seen: Oct 15, 2017 Constitutional: Denies: no symptoms, chills, diaphoresis, fever, malaise, weakness, other HEENT: Denies: no symptoms, eye pain, blurred vision, tearing, double vision, ear pain, ear discharge, nose pain, nose congestion, throat pain, throat swelling, mouth pain, mouth swelling, other Cardiovascular: Denies: no symptoms, chest pain, edema, irregular heart rate, lightheadedness, palpitations, syncope, other Respiratory: Denies: no symptoms, cough, orthopnea, shortness of breath, SOB with excertion, SOB at rest, sputum, stridor, wheezing, other Gastrointestinal/Abdominal: Denies: no symptoms, abdomen distended, abdominal pain, black stools, tarry stools, blood in stool, constipated, diarrhea, difficulty swallowing, nausea, poor appetite, poor fluid intake, rectal bleeding , vomiting, other Genitourinary: Denies: no symptoms, burning, discharge, frequency, flank pain, hematuria, incontinence, pain, urgency, other 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: Denies: no symptoms, anxiety, depressed, emotional problems, headache, numbness, paresthesia, pre-existing deficit, seizure, tingling, tremors, weakness, other Hematologic/Lymphatic: Reports: anemia Allergies: Coded Allergies: No Known Allergies (Verified , 11/18/08) Subjective Confused. On vent. No fever or chills. Objective Last 24 Hour Vital Signs Date Time Temp Pulse Resp B/P (MAP) Pulse Ox O2 Delivery O2 Flow Rate FiO2 10/16/17 23:12 80 18 40 10/16/17 21:25 73 18 40 10/16/17 20:00 40 10/16/17 20:00 98.2 95 20 135/69 100 Mechanical Ventilator 40 98.2 78 10/16/17 19:28 75 19 40 10/16/17 19:19 70 10/16/17 18:28 76 142/72 10/16/17 17:20 78 19 40 10/16/17 16:00 73 10/16/17 16:00 40 10/16/17 16:00 98.7 70 20 142/72 100 Mechanical Ventilator 40 98.7 78 10/16/17 15:24 79 20 40 10/16/17 13:28 76 18 100 10/16/17 13:16 74 20 40 10/16/17 12:00 98.7 76 18 118/64 100 Mechanical Ventilator 40 98.7 78 10/16/17 12:00 40 10/16/17 11:46 89 10/16/17 11:05 87 20 40 10/16/17 09:28 86 20 40 10/16/17 09:00 81 129/60 10/16/17 08:00 40 10/16/17 08:00 81 10/16/17 08:00 98.6 73 18 129/60 100 Mechanical Ventilator 40 98.6 78 4/5/18 07:16 90 20 40 10/16/17 04:51 80 20 40 10/16/17 04:00 97.9 78 18 137/66 99 Mechanical Ventilator 40 97.9 78 10/16/17 04:00 75 10/16/17 04:00 40 10/16/17 03:17 92 20 40 10/16/17 01:19 88 20 40 10/16/17 00:00 94 10/16/17 00:00 40 10/16/17 00:00 98.3 90 18 130/71 98 Mechanical Ventilator 40 98.3 Intake and Output 10/15/17 10/16/17 19:00 07:00 Intake Total 630 ml 882.5 ml Output Total 1800 ml 550 ml Balance -1170 ml 332.5 ml Intake Free Water 100 ml IV Total 682.5 ml Tube Feeding 600 ml 100 ml Other 30 ml Output Urine Total 1800 ml 550 ml # Bowel Movements 3 Laboratory Tests 10/16/17 05:45: White Blood Count 9.9, Red Blood Count 2.55L, Hemoglobin 7.9L, Hematocrit 25.1L , Mean Corpuscular Volume 98, Mean Corpuscular Hemoglobin 31.0, Mean Corpuscular Hemoglobin Concent 31.5L, Red Cell Distribution Width 16.7H, Platelet Count 146L, Mean Platelet Volume 8.6, Neutrophils (%) (Auto) , Lymphocytes (%) (Auto) , Monocytes (%) (Auto) , Eosinophils (%) (Auto) , Basophils (%) (Auto) , Differential Total Cells Counted 100, Neutrophils % ( Manual) 75, Lymphocytes % (Manual) 15L, Monocytes % (Manual) 10, Eosinophils % ( Manual) 0, Basophils % (Manual) 0, Band Neutrophils 0, Platelet Estimate DecreasedL, Platelet Morphology Normal, Anisocytosis 1+, Prothrombin Time 10.7, Prothromb Time International Ratio 1.0, Sodium Level 139, Potassium Level 3.9, Chloride Level 103, Carbon Dioxide Level 36H, Anion Gap 1L, Blood Urea Nitrogen 28H, Creatinine 0.7, Estimat Glomerular Filtration Rate , Glucose Level 121H, Calcium Level 8.1L, Total Bilirubin 3.6H, Direct Bilirubin 2.8H, Gamma Glutamyl Transpeptidase 1377H, Aspartate Amino Transf (AST/SGOT) 106H, Alanine Aminotransferase (ALT/SGPT) 79H, Alkaline Phosphatase 1839H, Pro-B-Type Natriuretic Peptide 1661H, Total Protein 6.4, Albumin 1.8L, Globulin 4.6, Albumin/Globulin Ratio 0.4L Height (Feet): 5 Height (Inches): 4.00 Weight (Pounds): 90 General Appearance: no apparent distress, confused Respiratory/Chest: decreased breath sounds Abdomen: soft Johnny Sinha MD Oct 16, 2017 23:44
[2017-10-17] VITALS: BP 116/60
[2017-10-17 04:00] VITALS: BP 110/54
[2017-10-17 04:46] LABS: HEMATOCRIT 23.4 % (42.0-52.0); HEMOGLOBIN 7.4 G/DL (14.2-18.0); MEAN CORPUSCULAR VOLUME 99 FL (80-99); PLATELET COUNT 132 K/UL (150-450); RED BLOOD COUNT 2.37 M/UL (4.70-6.10); RED CELL DISTRIBUTION WIDTH 16.3 % (11.6-14.8); WHITE BLOOD COUNT 9.3 K/UL (4.8-10.8)
[2017-10-17] MEDS: NovoLOG Insulin Flexpen SUBQ SCH ×2 (05:40→11:34)
[2017-10-17 05:50] LABS: ALANINE AMINOTRANSFERASE 58 U/L (12-78); ALBUMIN 1.8 G/DL (3.4-5.0); ALBUMIN/GLOBULIN RATIO 0.4 (1.0-2.7); ALKALINE PHOSPHATASE 1641 U/L (46-116); ANION GAP 4 mmol/L (5-15); ASPARTATE AMINO TRANSFERASE 85 U/L (15-37); BILIRUBIN,TOTAL 3.5 MG/DL (0.2-1.0); BLOOD UREA NITROGEN 21 mg/dL (7-18); CALCIUM 7.8 MG/DL (8.5-10.1); CARBON DIOXIDE 30 MMOL/L (21-32); CHLORIDE 102 MMOL/L (98-107); CREATININE 0.7 MG/DL (0.55-1.30); PHOSPHORUS 3.4 MG/DL (2.5-4.9); POTASSIUM 4.4 MMOL/L (3.5-5.1); SODIUM 136 MMOL/L (136-145)
[2017-10-17 05:52] LABS: BILIRUBIN,DIRECT 2.5 MG/DL (0.0-0.3)
--- NOTE | 2017-10-17 06:51 | Cardiac Electrophysiology PN ---
Assessment/Plan Assessment/Plan 1. Vent dependent Respiratory failure, due to underlying ARDS , pneumonia. Already ruled out for myocardial infarction. S/P Tracheostomy. 2. Left bundle-branch block. No evidence of more advanced heart block. 3. HTN and diastolic dysfunction. Echo EF 55% On Cardizem 30 BID 4. Hypernatremia and Azotemia. F/U per Dr. Mayer 5. Pneumonia and sepsis on IV antibiotics by Dr. Hunter. 6. Psychiatric disorder. 7. Anasarca. 3rd spacing. 8. Anemia with Hb 6.6 s/p PRBC. CT chest abdomen and pelvis without contrast no acute finding S/P EGD by Dr Walton. S/P PEG 10/16/17 9. Severe thrombocytopenia. S/P platelet transfusion 10. Abnormal LFT, Biliary obstruction, possible cholangitis. S/P ERCP. CBD sludge. S/P repeat ERCP and stent by Dr. Walton Bilirubin down to 4 11. High INR 3.5 likely due to hepatic failure. S/P FFP and Vit K. INR 1 DW RN Subjective Subjective No SVT or VT. Alert in NAD. S/P PEG placement yesterday Objective Last 24 Hour Vital Signs Date Time Temp Pulse Resp B/P (MAP) Pulse Ox O2 Delivery O2 Flow Rate FiO2 10/17/17 05:17 75 18 40 10/17/17 04:00 40 10/17/17 04:00 97.0 74 20 110/54 100 Mechanical Ventilator 40 97.0 10/17/17 03:37 70 10/17/17 03:00 74 18 40 10/17/17 01:22 72 18 40 10/17/17 00:00 98.2 71 20 116/60 99 Mechanical Ventilator 40 98.2 10/16/17 23:35 84 10/16/17 23:12 80 18 40 10/16/17 21:25 73 18 40 10/16/17 20:00 40 10/16/17 20:00 98.2 95 20 135/69 100 Mechanical Ventilator 40 98.2 78 10/16/17 19:28 75 19 40 10/16/17 19:19 70 10/16/17 18:28 76 142/72 10/16/17 17:20 78 19 40 10/16/17 16:00 73 10/16/17 16:00 40 10/16/17 16:00 98.7 70 20 142/72 100 Mechanical Ventilator 40 98.7 78 10/16/17 15:24 79 20 40 10/16/17 13:28 76 18 100 10/16/17 13:16 74 20 40 10/16/17 12:00 98.7 76 18 118/64 100 Mechanical Ventilator 40 98.7 78 10/16/17 12:00 40 10/16/17 11:46 89 10/16/17 11:05 87 20 40 10/16/17 09:28 86 20 40 10/16/17 09:00 81 129/60 10/16/17 08:00 40 10/16/17 08:00 81 10/16/17 08:00 98.6 73 18 129/60 100 Mechanical Ventilator 40 98.6 78 10/16/17 07:16 90 20 40 Intake and Output 10/16/17 10/17/17 19:00 07:00 Intake Total 915 ml 683.75 ml Output Total 1800 ml 1200 ml Balance -885 ml -516.25 ml IV Total 900 ml 683.75 ml Other 15 ml Output Urine Total 1800 ml 1200 ml # Bowel Movements 1 1 Laboratory Tests Test 10/17/17 03:10 White Blood Count 9.3 K/UL (4.8-10.8) Red Blood Count 2.37 M/UL (4.70-6.10) L Hemoglobin 7.4 G/DL (14.2-18.0) L Hematocrit 23.4 % (42.0-52.0) L Mean Corpuscular Volume 99 FL (80-99) Mean Corpuscular Hemoglobin 31.1 PG (27.0-31.0) H Mean Corpuscular Hemoglobin Concent 31.5 G/DL (32.0-36.0) L Red Cell Distribution Width 16.3 % (11.6-14.8) H Platelet Count 132 K/UL (150-450) L Mean Platelet Volume 9.1 FL (6.5-10.1) Neutrophils (%) (Auto) % (45.0-75.0) Lymphocytes (%) (Auto) % (20.0-45.0) Monocytes (%) (Auto) % (1.0-10.0) Eosinophils (%) (Auto) % (0.0-3.0) Basophils (%) (Auto) % (0.0-2.0) Sodium Level 136 MMOL/L (136-145) Potassium Level 4.4 MMOL/L (3.5-5.1) Chloride Level 102 MMOL/L (98-107) Carbon Dioxide Level 30 MMOL/L (21-32) Anion Gap 4 mmol/L (5-15) L Blood Urea Nitrogen 21 mg/dL (7-18) H Creatinine 0.7 MG/DL (0.55-1.30) Estimat Glomerular Filtration Rate mL/min (>60) Glucose Level 113 MG/DL (74-106) H Calcium Level 7.8 MG/DL (8.5-10.1) L Phosphorus Level 3.4 MG/DL (2.5-4.9) Magnesium Level 2.1 MG/DL (1.8-2.4) Total Bilirubin 3.5 MG/DL (0.2-1.0) H Direct Bilirubin 2.5 MG/DL (0.0-0.3) H Aspartate Amino Transf (AST/SGOT) 85 U/L (15-37) H Alanine Aminotransferase (ALT/SGPT) 58 U/L (12-78) Alkaline Phosphatase 1641 U/L (46-116) H Total Protein 6.4 G/DL (6.4-8.2) Albumin 1.8 G/DL (3.4-5.0) L Globulin 4.6 g/dL Albumin/Globulin Ratio 0.4 (1.0-2.7) L Objective HEAD AND NECK: Tracheostomy in place. LUNGS: Coarse rhonchi bilaterally CARDIOVASCULAR: Tachy S1 and S2.No murmur ABDOMEN: Soft.PEG in place EXTREMITIES: No edema. Charlie Darnell MD Oct 17, 2017 06:51
[2017-10-17 08:00] VITALS: BP 107/52
[2017-10-17] MEDS: dilTIAZem HCl 30mg tab NG SCH ×2 (08:58→17:30)
[2017-10-17] MEDS: Pantoprazole Inj IVP SCH (08:58)
[2017-10-17] MEDS: Ketotifen Fumarate 0.035% 5ml BOTH EYES SCH (08:59)
--- NOTE | 2017-10-17 11:53 | Pulmonolgy Critical Care Note ---
Critical Care - Asmt/Plan Problems: (1) ARDS (adult respiratory distress syndrome) (2) Aspiration pneumonia (3) Anemia (4) Thrombocytopenia (5) Diabetes mellitus (6) Protein-calorie malnutrition, severe Respiratory: monitor respiratory rate, adjust FIO2, CXR Cardiac: continue to monitor HR/BP Renal: F/U I&O Infectious Disease: check cultures Gastrointestinal: continue feedings/current rate Endocrine: monitor blood sugar, continue sliding scale insulin Hematologic: monitor H/H, transfuse if hgb<8.5 Neurologic: PRN Morphine, keep patient comfortable Prophylaxis: Protonix, Heparin Time Spent (Minutes): 30 Notes Reviewed: field assembly supervisor, renal Discussed with: nurses, consultants, residential case manageroccupational health nurse manager - Objective Last 24 Hour Vital Signs Date Time Temp Pulse Resp B/P (MAP) Pulse Ox O2 Delivery O2 Flow Rate FiO2 10/17/17 09:27 64 18 40 10/17/17 08:58 72 107/52 10/17/17 08:00 97.9 72 18 107/52 100 Mechanical Ventilator 40 97.9 10/17/17 08:00 80 10/17/17 07:28 85 18 40 10/17/17 05:17 75 18 40 10/17/17 04:00 40 10/17/17 04:00 97.0 74 20 110/54 100 Mechanical Ventilator 40 97.0 10/17/17 03:37 70 10/17/17 03:00 74 18 40 10/17/17 01:22 72 18 40 10/17/17 00:00 98.2 71 20 116/60 99 Mechanical Ventilator 40 98.2 10/16/17 23:35 84 10/16/17 23:12 80 18 40 10/16/17 21:25 73 18 40 10/16/17 20:00 40 10/16/17 20:00 98.2 95 20 135/69 100 Mechanical Ventilator 40 98.2 78 10/16/17 19:28 75 19 40 10/16/17 19:19 70 10/16/17 18:28 76 142/72 10/16/17 17:20 78 19 40 10/16/17 16:00 73 10/16/17 16:00 40 10/16/17 16:00 98.7 70 20 142/72 100 Mechanical Ventilator 40 98.7 78 10/16/17 15:24 79 20 40 10/16/17 13:28 76 18 100 10/16/17 13:16 74 20 40 10/16/17 12:00 98.7 76 18 118/64 100 Mechanical Ventilator 40 98.7 78 10/16/17 12:00 40 Status: awake Condition: improving HEENT: atraumatic Lungs: chest wall tender, rhonchi Heart: HR/BP stable Abdomen: soft, non-tender, feeding tube Extremities: edema Decubiti: location Accucheck: 128 Critical Care - Subjective ROS Limited/Unobtainable: No Condition: critical EKG Rhythm: Sinus Rhythm FI02: 40 Vent Support Breath Rate: 18 Vent Support Mode: AC Vent Tidal Volume: 450 Sputum Amount: Scant PEEP: 4.0 PIP: 41 Tube Feeding Amount: 50 I&O: Intake and Output 10/16/17 10/17/17 19:00 07:00 Intake Total 915 ml 758.75 ml Output Total 1800 ml 1200 ml Balance -885 ml -441.25 ml IV Total 900 ml 758.75 ml Other 15 ml Output Urine Total 1800 ml 1200 ml # Bowel Movements 1 1 CXR: no change ET-Tube: 7.5 ET Position: 21 Labs: Laboratory Tests Test 10/17/17 03:10 White Blood Count 9.3 K/UL (4.8-10.8) Red Blood Count 2.37 M/UL (4.70-6.10) L Hemoglobin 7.4 G/DL (14.2-18.0) L Hematocrit 23.4 % (42.0-52.0) L Mean Corpuscular Volume 99 FL (80-99) Mean Corpuscular Hemoglobin 31.1 PG (27.0-31.0) H Mean Corpuscular Hemoglobin Concent 31.5 G/DL (32.0-36.0) L Red Cell Distribution Width 16.3 % (11.6-14.8) H Platelet Count 132 K/UL (150-450) L Mean Platelet Volume 9.1 FL (6.5-10.1) Neutrophils (%) (Auto) % (45.0-75.0) Lymphocytes (%) (Auto) % (20.0-45.0) Monocytes (%) (Auto) % (1.0-10.0) Eosinophils (%) (Auto) % (0.0-3.0) Basophils (%) (Auto) % (0.0-2.0) Sodium Level 136 MMOL/L (136-145) Potassium Level 4.4 MMOL/L (3.5-5.1) Chloride Level 102 MMOL/L (98-107) Carbon Dioxide Level 30 MMOL/L (21-32) Anion Gap 4 mmol/L (5-15) L Blood Urea Nitrogen 21 mg/dL (7-18) H Creatinine 0.7 MG/DL (0.55-1.30) Estimat Glomerular Filtration Rate mL/min (>60) Glucose Level 113 MG/DL (74-106) H Calcium Level 7.8 MG/DL (8.5-10.1) L Phosphorus Level 3.4 MG/DL (2.5-4.9) Magnesium Level 2.1 MG/DL (1.8-2.4) Total Bilirubin 3.5 MG/DL (0.2-1.0) H Direct Bilirubin 2.5 MG/DL (0.0-0.3) H Aspartate Amino Transf (AST/SGOT) 85 U/L (15-37) H Alanine Aminotransferase (ALT/SGPT) 58 U/L (12-78) Alkaline Phosphatase 1641 U/L (46-116) H Total Protein 6.4 G/DL (6.4-8.2) Albumin 1.8 G/DL (3.4-5.0) L Globulin 4.6 g/dL Albumin/Globulin Ratio 0.4 (1.0-2.7) L Tayler Liu MD Oct 17, 2017 11:53
[2017-10-17 12:00] VITALS: BP 119/64
[2017-10-17] MEDS: D5 1/2NS 1,000 ML IV SCH (14:23)
--- NOTE | 2017-10-17 15:44 | Nephrology Progress Note ---
Assessment/Plan Problem List: (1) ARDS (adult respiratory distress syndrome) (2) Electrolyte imbalance (3) Thrombocytopenia Assessment (1) ARDS (adult respiratory distress syndrome) s/p Trach (2) Aspiration pneumonia (3) Protein-calorie malnutrition, severe (4) Diabetes mellitus (5) Anemia , aplastic by history (6) DM (7) UTI (8) Electrolyte imbalance (9) HTN (10) Depression (11) RA . Plan stable - had trach and PEG water via NGT Adjust BP meds K and Phos supplement as needed Monitor renal parameters and urine output avoid nephrotoxics per orders discussed with RN Left ventricular ejection fraction estimated to be 55 %. Subjective ROS Limited/Unobtainable: Yes Objective Objective Last 24 Hour Vital Signs Date Time Temp Pulse Resp B/P (MAP) Pulse Ox O2 Delivery O2 Flow Rate FiO2 10/17/17 12:00 74 10/17/17 12:00 97.3 74 18 119/64 100 Mechanical Ventilator 40 97.3 10/17/17 12:00 40 10/17/17 10:56 73 18 40 10/17/17 09:27 64 18 40 10/17/17 08:58 72 107/52 10/17/17 08:00 40 10/17/17 08:00 97.9 72 18 107/52 100 Mechanical Ventilator 40 97.9 10/17/17 08:00 80 10/17/17 07:28 85 18 40 10/17/17 05:17 75 18 40 10/17/17 04:00 40 10/17/17 04:00 97.0 74 20 110/54 100 Mechanical Ventilator 40 97.0 10/17/17 03:37 70 10/17/17 03:00 74 18 40 10/17/17 01:22 72 18 40 10/17/17 00:00 98.2 71 20 116/60 99 Mechanical Ventilator 40 98.2 10/16/17 23:35 84 10/16/17 23:12 80 18 40 10/16/17 21:25 73 18 40 10/16/17 20:00 40 10/16/17 20:00 98.2 95 20 135/69 100 Mechanical Ventilator 40 98.2 78 10/16/17 19:28 75 19 40 10/16/17 19:19 70 10/16/17 18:28 76 142/72 10/16/17 17:20 78 19 40 4/5/18 16:00 73 10/16/17 16:00 40 10/16/17 16:00 98.7 70 20 142/72 100 Mechanical Ventilator 40 98.7 78 Intake and Output 10/16/17 10/17/17 19:00 07:00 Intake Total 915 ml 758.75 ml Output Total 1800 ml 1200 ml Balance -885 ml -441.25 ml IV Total 900 ml 758.75 ml Other 15 ml Output Urine Total 1800 ml 1200 ml # Bowel Movements 1 1 Laboratory Tests 10/17/17 03:10: White Blood Count 9.3, Red Blood Count 2.37L, Hemoglobin 7.4L, Hematocrit 23.4L , Mean Corpuscular Volume 99, Mean Corpuscular Hemoglobin 31.1H, Mean Corpuscular Hemoglobin Concent 31.5L, Red Cell Distribution Width 16.3H, Platelet Count 132L, Mean Platelet Volume 9.1, Neutrophils (%) (Auto) , Lymphocytes (%) (Auto) , Monocytes (%) (Auto) , Eosinophils (%) (Auto) , Basophils (%) (Auto) , Sodium Level 136, Potassium Level 4.4, Chloride Level 102 , Carbon Dioxide Level 30, Anion Gap 4L, Blood Urea Nitrogen 21H, Creatinine 0.7 , Estimat Glomerular Filtration Rate , Glucose Level 113H, Calcium Level 7.8L, Phosphorus Level 3.4, Magnesium Level 2.1, Total Bilirubin 3.5H, Direct Bilirubin 2.5H, Aspartate Amino Transf (AST/SGOT) 85H, Alanine Aminotransferase (ALT/SGPT) 58, Alkaline Phosphatase 1641H, Total Protein 6.4, Albumin 1.8L, Globulin 4.6, Albumin/Globulin Ratio 0.4L Height (Feet): 5 Height (Inches): 4.00 Weight (Pounds): 93 General Appearance: no apparent distress Cardiovascular: tachycardia Respiratory/Chest: decreased breath sounds Abdomen: other - PEG Objective no change YAEL HANSEN Oct 17, 2017 15:44
--- NOTE | 2017-10-17 15:44 | General Progress Note ---
Progress Note Progress Note Surgery: doing well. some venous bleeding noted around trach. dressings changed. wounds cleaned. hemostasis with pressure and 1%lidow/ epi. surgicel placed. good hemostasis noted currently. new dressings applied. monitor for bleeding will follow. thank you Adryan Echevarria Oct 17, 2017 15:44
[2017-10-17 16:45] VITALS: BP 138/63
[2017-10-17] MEDS ORDERED: CARDIZEM30 MG NG (16:50)
[2017-10-17] MEDS ORDERED: PROTONIX40 M1 IVP (16:50)
--- NOTE | 2017-10-17 18:56 | General Progress Note ---
Assessment/Plan Problem List: (1) Arthritis, rheumatoid ICD Codes: M06.9 - Rheumatoid arthritis, unspecified SNOMED: 46312066 (2) Aspiration pneumonia ICD Codes: J69.0 - Pneumonitis due to inhalation of food and vomit SNOMED: 622166491 (3) Diabetes mellitus ICD Codes: E11.9 - Type 2 diabetes mellitus without complications SNOMED: 77638861 (4) ARDS (adult respiratory distress syndrome) ICD Codes: J80 - Acute respiratory distress syndrome SNOMED: 02669685 (5) Transaminitis ICD Codes: R74.0 - Nonspecific elevation of levels of transaminase and lactic acid dehydrogenase [LDH] SNOMED: 477627930, 686652846 (6) Dyspnea ICD Codes: R06.00 - Dyspnea, unspecified SNOMED: 371646504 (7) Parkinsons disease ICD Codes: G20 - Parkinson's disease SNOMED: 81878261 (8) Sepsis ICD Codes: A41.9 - Sepsis, unspecified organism SNOMED: 02882825 (9) GERD (gastroesophageal reflux disease) ICD Codes: K21.9 - Gastro-esophageal reflux disease without esophagitis SNOMED: 849316176 (10) Aplastic anemia ICD Codes: D61.9 - Aplastic anemia, unspecified SNOMED: 704615175 (11) Pneumonia ICD Codes: J18.9 - Pneumonia, unspecified organism SNOMED: 509075160 (12) HTN (hypertension) ICD Codes: I10 - Essential (primary) hypertension SNOMED: 06611102 Assessment/Plan Encephalopathy, agitation, psychotic disorder. -cont current meds -ativan prn Subjective Date patient seen: Oct 17, 2017 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: Reports: anxiety, depressed, emotional problems Allergies: Coded Allergies: No Known Allergies (Verified , 11/18/08) Subjective more awake the pt is calm nad anxious at times Objective Last 24 Hour Vital Signs Date Time Temp Pulse Resp B/P (MAP) Pulse Ox O2 Delivery O2 Flow Rate FiO2 10/17/17 17:30 76 138/63 10/17/17 17:10 80 22 40 10/17/17 16:45 98.2 98 32 138/63 98 Mechanical Ventilator 40 98.2 10/17/17 16:00 90 10/17/17 16:00 40 10/17/17 12:00 74 4/6/18 12:00 97.3 74 18 119/64 100 Mechanical Ventilator 40 97.3 10/17/17 12:00 40 10/17/17 10:56 73 18 40 10/17/17 09:27 64 18 40 10/17/17 08:58 72 107/52 10/17/17 08:00 40 10/17/17 08:00 97.9 72 18 107/52 100 Mechanical Ventilator 40 97.9 10/17/17 08:00 80 10/17/17 07:28 85 18 40 10/17/17 05:17 75 18 40 10/17/17 04:00 40 10/17/17 04:00 97.0 74 20 110/54 100 Mechanical Ventilator 40 97.0 10/17/17 03:37 70 10/17/17 03:00 74 18 40 10/17/17 01:22 72 18 40 10/17/17 00:00 98.2 71 20 116/60 99 Mechanical Ventilator 40 98.2 10/16/17 23:35 84 10/16/17 23:12 80 18 40 10/16/17 21:25 73 18 40 10/16/17 20:00 40 10/16/17 20:00 98.2 95 20 135/69 100 Mechanical Ventilator 40 98.2 78 10/16/17 19:28 75 19 40 10/16/17 19:19 70 Intake and Output 10/16/17 10/17/17 19:00 07:00 Intake Total 915 ml 758.75 ml Output Total 1800 ml 1200 ml Balance -885 ml -441.25 ml IV Total 900 ml 758.75 ml Other 15 ml Output Urine Total 1800 ml 1200 ml # Bowel Movements 1 1 Laboratory Tests 10/17/17 03:10: White Blood Count 9.3, Red Blood Count 2.37L, Hemoglobin 7.4L, Hematocrit 23.4L , Mean Corpuscular Volume 99, Mean Corpuscular Hemoglobin 31.1H, Mean Corpuscular Hemoglobin Concent 31.5L, Red Cell Distribution Width 16.3H, Platelet Count 132L, Mean Platelet Volume 9.1, Neutrophils (%) (Auto) , Lymphocytes (%) (Auto) , Monocytes (%) (Auto) , Eosinophils (%) (Auto) , Basophils (%) (Auto) , Sodium Level 136, Potassium Level 4.4, Chloride Level 102 , Carbon Dioxide Level 30, Anion Gap 4L, Blood Urea Nitrogen 21H, Creatinine 0.7 , Estimat Glomerular Filtration Rate , Glucose Level 113H, Calcium Level 7.8L, Phosphorus Level 3.4, Magnesium Level 2.1, Total Bilirubin 3.5H, Direct Bilirubin 2.5H, Aspartate Amino Transf (AST/SGOT) 85H, Alanine Aminotransferase (ALT/SGPT) 58, Alkaline Phosphatase 1641H, Total Protein 6.4, Albumin 1.8L, Globulin 4.6, Albumin/Globulin Ratio 0.4L Height (Feet): 5 Height (Inches): 4.00 Weight (Pounds): 93 General Appearance: no apparent distress, alert Dary Nixon M.D. Oct 17, 2017 18:56
--- NOTE | 2017-10-17 19:24 | Internal Med Progress Note ---
Subjective Date of Service: Oct 17, 2017 Physician Name Sina Bowens Attending Physician Jesus Barahona MD Current Medications Medications (Trade) Dose Ordered Sig/Hermes Route PRN Reason Start Time Stop Time Status Last Admin Dose Admin Acetaminophen (Tylenol) 650 mg Q6H PRN NG Fever/Headache/Mild Pain 10/14/17 17:00 11/10/17 16:59 Clotrimazole (Lotrimin) 1 applic EVERY 12 HOURS TOPIC 10/14/17 21:00 11/09/17 22:59 10/17/17 08:58 Dextrose/Sodium Chloride 1,000 ml @ 75 mls/hr [id number] IV 10/15/17 21:30 11/14/17 21:29 10/17/17 14:23 Diltiazem HCl (Cardizem) 30 mg BID NG 10/14/17 18:00 11/10/17 08:59 10/17/17 17:30 Furosemide (Lasix) 40 mg DAILY IV 10/15/17 09:00 11/12/17 08:59 10/17/17 08:58 Ketotifen Fumarate (Zatidor) 1 drop DAILY BOTH EYES 10/15/17 09:00 10/25/17 08:59 10/17/17 08:59 Pantoprazole (Protonix) 40 mg DAILY IVP 10/15/17 09:00 11/01/17 08:59 10/17/17 08:58 Potassium Chloride (K-Dur) 20 meq DAILY ORAL 10/15/17 09:00 11/12/17 08:59 10/17/17 08:58 Allergies: Coded Allergies: No Known Allergies (Verified , 11/18/08) ROS Limited/Unobtainable: Yes Subjective 76 YO F admitted with Shortness of breath, now respiratory failure. Intubated and sedated. Cover for Internal Med-Dr. Barahona. RAJINDER . S/P ERCP 10/08/17. S/P Tracheostomy and bronchoscopy 10/13/17 Objective Last Vital Signs Date Time Temp Pulse Resp B/P (MAP) Pulse Ox O2 Delivery O2 Flow Rate FiO2 10/17/17 17:30 76 138/63 10/17/17 17:10 22 40 10/17/17 16:45 98.2 98 Mechanical Ventilator 98.2 Laboratory Tests Test 4/6/18 03:10 White Blood Count 9.3 K/UL (4.8-10.8) Red Blood Count 2.37 M/UL (4.70-6.10) L Hemoglobin 7.4 G/DL (14.2-18.0) L Hematocrit 23.4 % (42.0-52.0) L Mean Corpuscular Volume 99 FL (80-99) Mean Corpuscular Hemoglobin 31.1 PG (27.0-31.0) H Mean Corpuscular Hemoglobin Concent 31.5 G/DL (32.0-36.0) L Red Cell Distribution Width 16.3 % (11.6-14.8) H Platelet Count 132 K/UL (150-450) L Mean Platelet Volume 9.1 FL (6.5-10.1) Neutrophils (%) (Auto) % (45.0-75.0) Lymphocytes (%) (Auto) % (20.0-45.0) Monocytes (%) (Auto) % (1.0-10.0) Eosinophils (%) (Auto) % (0.0-3.0) Basophils (%) (Auto) % (0.0-2.0) Sodium Level 136 MMOL/L (136-145) Potassium Level 4.4 MMOL/L (3.5-5.1) Chloride Level 102 MMOL/L (98-107) Carbon Dioxide Level 30 MMOL/L (21-32) Anion Gap 4 mmol/L (5-15) L Blood Urea Nitrogen 21 mg/dL (7-18) H Creatinine 0.7 MG/DL (0.55-1.30) Estimat Glomerular Filtration Rate mL/min (>60) Glucose Level 113 MG/DL (74-106) H Calcium Level 7.8 MG/DL (8.5-10.1) L Phosphorus Level 3.4 MG/DL (2.5-4.9) Magnesium Level 2.1 MG/DL (1.8-2.4) Total Bilirubin 3.5 MG/DL (0.2-1.0) H Direct Bilirubin 2.5 MG/DL (0.0-0.3) H Aspartate Amino Transf (AST/SGOT) 85 U/L (15-37) H Alanine Aminotransferase (ALT/SGPT) 58 U/L (12-78) Alkaline Phosphatase 1641 U/L (46-116) H Total Protein 6.4 G/DL (6.4-8.2) Albumin 1.8 G/DL (3.4-5.0) L Globulin 4.6 g/dL Albumin/Globulin Ratio 0.4 (1.0-2.7) L Intake and Output 10/16/17 10/17/17 19:00 07:00 Intake Total 915 ml 758.75 ml Output Total 1800 ml 1200 ml Balance -885 ml -441.25 ml IV Total 900 ml 758.75 ml Other 15 ml Output Urine Total 1800 ml 1200 ml # Bowel Movements 1 1 Objective General Appearance: lethargic, thin EENT: normal ENT inspection Neck: Trach; non-tender, normal alignment, supple Cardiovascular: normal peripheral pulses, normal rate, regular rhythm, no gallop/murmur, no JVD Respiratory/Chest: Mechanical vent; respiratory distress, crackles/rales, rhonchi - bilaterally, expiratory wheezing Abdomen: normal bowel sounds, non tender, soft, no organomegaly, no mass Skin: normal pigmentation, warm/dry Assessment/Plan Problem List: (1) HTN (hypertension) Assessment & Plan: Currently hypotensive. (2) Arthritis, rheumatoid (3) Parkinsons disease (4) Aplastic anemia (5) GERD (gastroesophageal reflux disease) (6) Respiratory failure Assessment & Plan: S/P Tracheostomy and broncholsopy 10/13/17. Cont vent per pulmonary (7) Pneumonia (8) Dyspnea (9) Sepsis Assessment & Plan: Blood culture neg. Continue Amikacin, micafungin and flagyl per ID (10) ARDS (adult respiratory distress syndrome) Assessment & Plan: See pulmonary note (11) UTI (urinary tract infection) Assessment & Plan: E.Coli. Continue abx per ID (12) Anemia Assessment & Plan: S/P Transfusion 2 units PRBC (13) Diabetes mellitus, type II Assessment & Plan: Continue novolog sliding scale (14) Leukocytosis Assessment & Plan: Worsening. See ID note. Start amikacin and fluconazole (15) Thrombocytopenia (16) Gallbladder sludge Assessment & Plan: s/P ERCP 10/01, 10/07/17 and 10/08/17 (17) Coagulopathy Assessment & Plan: S/P FFP and Vit K Status: not improved Assessment/Plan Discharge planning SINA BOWENS Oct 17, 2017 19:24
[2017-10-17 20:00] VITALS: BP 118/61
--- NOTE | 2017-10-17 20:27 | Infectious Diseases Prog Note ---
Assessment/Plan Assessment/Plan The patient is a 76-year-old female w Fever, SP Leukocytosis, resolved Community-acquired vs healthcare-associated pneumonia, s/p RX (the patient has been recently hospitalized in [facility]). -now ARDS- BAL : Laila an Nl devon , AFB : Neg -CT chest 10/07: Extensive diffuse bilateral pulmonary parenchymal disease, slightly worse than on prior exam of 09/23/2017. Main differential considerations include pneumonia, ARDS, pulmonary edema, among multiple other possibilities. Bilateral moderate to large pleural effusions, slightly increased in size from 09/23/2017. Nasogastric and endotracheal tubes in good position. Evidence of generalized anasarca, with diffuse subcutaneous soft tissue edema. Probable influenza despite of negative influenza screening test, s/p Rx Abnormal liver function tests, ALP>>> AST -2ry to sludged CBD ,cholangitis, obstruction on CBD; AST/ALT , Filiberto ALP improving , -s/p ERCP 10/08: Intraoperative images demonstrate faint opacification of the common bile duct, and placement of a new plastic endobiliary stent. What may be a previous malpositioned biliary stent is seen to the left of the endoscope -CT abd/p 10/07: Anasarca, also previously described, currently similar except for increased size of bilateral pleural fluid described on chest CT. Gallbladder wall edema, probably a manifestation of anasarca, although acute cholecystitis not excludable. Note that similar findings were seen on the previous study, which was followed by a negative HIDA scan. Endometrial biliary stent now present. Mild central intrahepatic biliary ductal dilatation despite this. Low-attenuation areas in the spleen, as described. Equivocal clinically evident previously in retrospect that much more conspicuous currently, probably due to less image artifact on the current study. These are nonspecific, could represent cysts, infarcts, areas of inflammation, much less likely neoplasm. Satisfactory position of nasogastric tube. 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 Nonspecific inflammatory changes surrounding the hips. Right hip region lipoma -s/p ERCP with stent placement 10/01 -EUS 09/30: 1. Dilated common bile duct with lots of sludge in the distal common bile duct, most probably explanation for abnormal liver function tests. 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 Depression. Anemia. Rheumatoid arthritis. History of gastritis. PLAN: monitor pt off of Ab Rx - 10/11 SP Ertapenem #7/7 10/09 SP MIcafungin #10 10/02 SP Amikacin #10 09/30 SP Flagyl #8 09/25 sp Fluconazole #3 (held due to rise ALP) 09/23 SP Meropenem #5, PO Vanco #2 09/21 SP tamiflu #10 -f/u AFB cultures ( BAL) : P -f/u Asp ag, fungitell, Cocci ab, fungal sp cx (called lab on 10/09 for f/u on these tests; was told they are still pending and they will call [facility] for an update). Monitor CBC.; Trend WBC Monitor BMP.; Trend LFTs Monitor chest x-ray -GI, heme onc f/u Subjective Allergies: Coded Allergies: No Known Allergies (Verified , 11/18/08) Subjective no acute event afebrile Objective Vital Signs Last 24 Hour Vital Signs Date Time Temp Pulse Resp B/P (MAP) Pulse Ox O2 Delivery O2 Flow Rate FiO2 10/17/17 19:35 74 18 40 10/17/17 17:30 76 138/63 10/17/17 17:10 80 22 40 10/17/17 16:45 98.2 98 32 138/63 98 Mechanical Ventilator 40 98.2 10/17/17 16:00 90 10/17/17 16:00 40 10/17/17 12:00 74 10/17/17 12:00 97.3 74 18 119/64 100 Mechanical Ventilator 40 97.3 10/17/17 12:00 40 10/17/17 10:56 73 18 40 10/17/17 09:27 64 18 40 10/17/17 08:58 72 107/52 10/17/17 08:00 40 10/17/17 08:00 97.9 72 18 107/52 100 Mechanical Ventilator 40 97.9 10/17/17 08:00 80 10/17/17 07:28 85 18 40 10/17/17 05:17 75 18 40 10/17/17 04:00 40 10/17/17 04:00 97.0 74 20 110/54 100 Mechanical Ventilator 40 97.0 10/17/17 03:37 70 10/17/17 03:00 74 18 40 10/17/17 01:22 72 18 40 10/17/17 00:00 98.2 71 20 116/60 99 Mechanical Ventilator 40 98.2 10/16/17 23:35 84 10/16/17 23:12 80 18 40 10/16/17 21:25 73 18 40 Height (Feet): 5 Height (Inches): 4.00 Weight (Pounds): 93 Laboratory Tests Test 10/17/17 03:10 White Blood Count 9.3 K/UL (4.8-10.8) Red Blood Count 2.37 M/UL (4.70-6.10) L Hemoglobin 7.4 G/DL (14.2-18.0) L Hematocrit 23.4 % (42.0-52.0) L Mean Corpuscular Volume 99 FL (80-99) Mean Corpuscular Hemoglobin 31.1 PG (27.0-31.0) H Mean Corpuscular Hemoglobin Concent 31.5 G/DL (32.0-36.0) L Red Cell Distribution Width 16.3 % (11.6-14.8) H Platelet Count 132 K/UL (150-450) L Mean Platelet Volume 9.1 FL (6.5-10.1) Neutrophils (%) (Auto) % (45.0-75.0) Lymphocytes (%) (Auto) % (20.0-45.0) Monocytes (%) (Auto) % (1.0-10.0) Eosinophils (%) (Auto) % (0.0-3.0) Basophils (%) (Auto) % (0.0-2.0) Sodium Level 136 MMOL/L (136-145) Potassium Level 4.4 MMOL/L (3.5-5.1) Chloride Level 102 MMOL/L (98-107) Carbon Dioxide Level 30 MMOL/L (21-32) Anion Gap 4 mmol/L (5-15) L Blood Urea Nitrogen 21 mg/dL (7-18) H Creatinine 0.7 MG/DL (0.55-1.30) Estimat Glomerular Filtration Rate mL/min (>60) Glucose Level 113 MG/DL (74-106) H Calcium Level 7.8 MG/DL (8.5-10.1) L Phosphorus Level 3.4 MG/DL (2.5-4.9) Magnesium Level 2.1 MG/DL (1.8-2.4) Total Bilirubin 3.5 MG/DL (0.2-1.0) H Direct Bilirubin 2.5 MG/DL (0.0-0.3) H Aspartate Amino Transf (AST/SGOT) 85 U/L (15-37) H Alanine Aminotransferase (ALT/SGPT) 58 U/L (12-78) Alkaline Phosphatase 1641 U/L (46-116) H Total Protein 6.4 G/DL (6.4-8.2) Albumin 1.8 G/DL (3.4-5.0) L Globulin 4.6 g/dL Albumin/Globulin Ratio 0.4 (1.0-2.7) L Current Medications Medications (Trade) Dose Ordered Sig/Hermes Route PRN Reason Start Time Stop Time Status Last Admin Dose Admin Acetaminophen (Tylenol) 650 mg Q6H PRN NG Fever/Headache/Mild Pain 10/14/17 17:00 11/10/17 16:59 Clotrimazole (Lotrimin) 1 applic EVERY 12 HOURS TOPIC 10/14/17 21:00 11/09/17 22:59 10/17/17 08:58 Dextrose/Sodium Chloride 1,000 ml @ 75 mls/hr [id number] IV 10/15/17 21:30 11/14/17 21:29 10/17/17 14:23 Diltiazem HCl (Cardizem) 30 mg BID NG 10/14/17 18:00 11/10/17 08:59 10/17/17 17:30 Furosemide (Lasix) 40 mg DAILY IV 10/15/17 09:00 11/12/17 08:59 10/17/17 08:58 Ketotifen Fumarate (Zatidor) 1 drop DAILY BOTH EYES 10/15/17 09:00 10/25/17 08:59 10/17/17 08:59 Pantoprazole (Protonix) 40 mg DAILY IVP 10/15/17 09:00 11/01/17 08:59 10/17/17 08:58 Potassium Chloride (K-Dur) 20 meq DAILY ORAL 10/15/17 09:00 11/12/17 08:59 10/17/17 08:58 Edis Hunter MD Oct 17, 2017 20:27
--- NOTE | 2017-10-17 21:24 | General Progress Note ---
Assessment/Plan Assessment/Plan Assessment - Resp failure / ARDS / PNA - s/p trach - Abnormal LFT, Biliary obstruction - s/p stent - cause of elevated Alk phos unclear - ? biliary sludge, - ? poorly draining stent, - ? intrahepatic cholestasis, - no current suspect drugs at this time but has been on a number of abx associated with cholestasis - ? infiltrative d/o - Jaundice - bili improved - Anemia with OB (+) stools - coagulopathy - improved - Malnutrition - s/p PEG - hypernatremia - AMS - improved Recommendations - follow labs - restart TF - Minimize medication use, given LFT changes - transfuse PRN - Elevate HOB - Vent care - Monitor labs - follow LFT Subjective Allergies: Coded Allergies: No Known Allergies (Verified , 11/18/08) Subjective Above noted NPO since PEG LFT slightly better today Objective Last 24 Hour Vital Signs Date Time Temp Pulse Resp B/P (MAP) Pulse Ox O2 Delivery O2 Flow Rate FiO2 10/17/17 20:00 98.1 73 18 118/61 100 Mechanical Ventilator 40 98.1 10/17/17 19:35 74 18 40 10/17/17 19:32 71 10/17/17 17:30 76 138/63 10/17/17 17:10 80 22 40 10/17/17 16:45 98.2 98 32 138/63 98 Mechanical Ventilator 40 98.2 10/17/17 16:00 90 10/17/17 16:00 40 10/17/17 12:00 74 10/17/17 12:00 97.3 74 18 119/64 100 Mechanical Ventilator 40 97.3 10/17/17 12:00 40 10/17/17 10:56 73 18 40 10/17/17 09:27 64 18 40 10/17/17 08:58 72 107/52 10/17/17 08:00 40 10/17/17 08:00 97.9 72 18 107/52 100 Mechanical Ventilator 40 97.9 10/17/17 08:00 80 10/17/17 07:28 85 18 40 10/17/17 05:17 75 18 40 10/17/17 04:00 40 10/17/17 04:00 97.0 74 20 110/54 100 Mechanical Ventilator 40 97.0 10/17/17 03:37 70 10/17/17 03:00 74 18 40 10/17/17 01:22 72 18 40 10/17/17 00:00 98.2 71 20 116/60 99 Mechanical Ventilator 40 98.2 10/16/17 23:35 84 10/16/17 23:12 80 18 40 10/16/17 21:25 73 18 40 Intake and Output 10/16/17 10/17/17 19:00 07:00 Intake Total 915 ml 758.75 ml Output Total 1800 ml 1200 ml Balance -885 ml -441.25 ml IV Total 900 ml 758.75 ml Other 15 ml Output Urine Total 1800 ml 1200 ml # Bowel Movements 1 1 Laboratory Tests 10/17/17 03:10: White Blood Count 9.3, Red Blood Count 2.37L, Hemoglobin 7.4L, Hematocrit 23.4L , Mean Corpuscular Volume 99, Mean Corpuscular Hemoglobin 31.1H, Mean Corpuscular Hemoglobin Concent 31.5L, Red Cell Distribution Width 16.3H, Platelet Count 132L, Mean Platelet Volume 9.1, Neutrophils (%) (Auto) , Lymphocytes (%) (Auto) , Monocytes (%) (Auto) , Eosinophils (%) (Auto) , Basophils (%) (Auto) , Sodium Level 136, Potassium Level 4.4, Chloride Level 102 , Carbon Dioxide Level 30, Anion Gap 4L, Blood Urea Nitrogen 21H, Creatinine 0.7 , Estimat Glomerular Filtration Rate , Glucose Level 113H, Calcium Level 7.8L, Phosphorus Level 3.4, Magnesium Level 2.1, Total Bilirubin 3.5H, Direct Bilirubin 2.5H, Aspartate Amino Transf (AST/SGOT) 85H, Alanine Aminotransferase (ALT/SGPT) 58, Alkaline Phosphatase 1641H, Total Protein 6.4, Albumin 1.8L, Globulin 4.6, Albumin/Globulin Ratio 0.4L Height (Feet): 5 Height (Inches): 4.00 Weight (Pounds): 93 Objective WDWN NCAT supple, (+) trach CTA RRR abd soft , (+) GT (+) LE edema opens eyes ARNULFO DURON Oct 17, 2017 21:24
[2017-10-18] VITALS: BP 120/65
--- NOTE | 2017-10-18 02:06 | General Progress Note ---
Assessment/Plan Assessment/Plan #. Pancytopenia --> WBC count and platelet counts are within normal levels now. --> Hemoglobin levels downtrended. Transfuse if continues to drop. --> Transfuse platelets if <20k --> Monitor and trend cbc daily. #. Coagulopathy - potentially related to DIC early onset, review hapto, inr repeat, fibrinogen, DIC panel --> administer FFP 4 units and vitamin k repeat prior to procedure --> DW pulm Dr. Parekh --> Likely related to infection versus other cause. On antibiotics. #. Anemia due to underlying chronic disease. Continue to closely monitor. --> Hemoglobin goal is above 7. --> Hemoglobin levels have been downtrending but remain above goal. --> Occult blood detected. Consider GI recs. --> Transfuse as necessary --> Blood transfusion not required unless symptomatic or hgb below goal. #. Leukocytosis likely related to underlying pneumonia infection. --> Resolved on antibiotic treatment. #. Thrombocytopenia, severe and progressive, acute onset, likely secondary to underlying infection, aspiration, hit was negative --> Duplex of the lower extremities is negative, therefore less likely HIT and other causes are more likely such as underlying infection. --> Platelets goal >20k, transfuse if necessary. --> On antibiotics as per ID --> Platelet count has been downtrending, monitor closely. #. Community-acquired pneumonia versus hospital-acquired. --> The patient on broad-spectrum antibiotics. --> Improved. --> Urine culture growing E. coli. Continue to closely monitor. #. Transaminitis. She has been seen by GI Service. Continue to closely monitor. #. Low-grade fever. Closely observe. #. Encephalopathy. Subjective Date patient seen: Oct 16, 2017 Constitutional: Denies: no symptoms, chills, diaphoresis, fever, malaise, weakness, other HEENT: Denies: no symptoms, eye pain, blurred vision, tearing, double vision, ear pain, ear discharge, nose pain, nose congestion, throat pain, throat swelling, mouth pain, mouth swelling, other Cardiovascular: Denies: no symptoms, chest pain, edema, irregular heart rate, lightheadedness, palpitations, syncope, other Respiratory: Denies: no symptoms, cough, orthopnea, shortness of breath, SOB with excertion, SOB at rest, sputum, stridor, wheezing, other Gastrointestinal/Abdominal: Denies: no symptoms, abdomen distended, abdominal pain, black stools, tarry stools, blood in stool, constipated, diarrhea, difficulty swallowing, nausea, poor appetite, poor fluid intake, rectal bleeding , vomiting, other Genitourinary: Denies: no symptoms, burning, discharge, frequency, flank pain, hematuria, incontinence, pain, urgency, other 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: Denies: no symptoms, anxiety, depressed, emotional problems, headache, numbness, paresthesia, pre-existing deficit, seizure, tingling, tremors, weakness, other Hematologic/Lymphatic: Reports: anemia Allergies: Coded Allergies: No Known Allergies (Verified , 11/18/08) Subjective Confused. Hemoglobin downtrended from yesterday. No night sweats. Objective Last 24 Hour Vital Signs Date Time Temp Pulse Resp B/P (MAP) Pulse Ox O2 Delivery O2 Flow Rate FiO2 10/18/17 00:43 82 18 40 10/18/17 00:00 40 10/18/17 00:00 97.8 98 20 120/65 99 Mechanical Ventilator 40 97.8 10/17/17 23:48 84 19 40 10/17/17 23:36 86 10/17/17 21:26 70 18 40 10/17/17 20:00 40 10/17/17 20:00 98.1 73 18 118/61 100 Mechanical Ventilator 40 98.1 10/17/17 19:35 74 18 40 10/17/17 19:32 71 10/17/17 17:30 76 138/63 10/17/17 17:10 80 22 40 10/17/17 16:45 98.2 98 32 138/63 98 Mechanical Ventilator 40 98.2 10/17/17 16:00 90 10/17/17 16:00 40 10/17/17 12:00 74 10/17/17 12:00 97.3 74 18 119/64 100 Mechanical Ventilator 40 97.3 10/17/17 12:00 40 10/17/17 10:56 73 18 40 10/17/17 09:27 64 18 40 10/17/17 08:58 72 107/52 10/17/17 08:00 40 10/17/17 08:00 97.9 72 18 107/52 100 Mechanical Ventilator 40 97.9 10/17/17 08:00 80 10/17/17 07:28 85 18 40 10/17/17 05:17 75 18 40 10/17/17 04:00 40 10/17/17 04:00 97.0 74 20 110/54 100 Mechanical Ventilator 40 97.0 10/17/17 03:37 70 10/17/17 03:00 74 18 40 Intake and Output 10/17/17 10/18/17 19:00 07:00 Intake Total 646.25 ml 330 ml Output Total 1550 ml Balance -903.75 ml 330 ml Intake Oral 30 ml IV Total 646.25 ml 300 ml Output Urine Total 1550 ml # Bowel Movements 2 Laboratory Tests 10/17/17 03:10: White Blood Count 9.3, Red Blood Count 2.37L, Hemoglobin 7.4L, Hematocrit 23.4L , Mean Corpuscular Volume 99, Mean Corpuscular Hemoglobin 31.1H, Mean Corpuscular Hemoglobin Concent 31.5L, Red Cell Distribution Width 16.3H, Platelet Count 132L, Mean Platelet Volume 9.1, Neutrophils (%) (Auto) , Lymphocytes (%) (Auto) , Monocytes (%) (Auto) , Eosinophils (%) (Auto) , Basophils (%) (Auto) , Sodium Level 136, Potassium Level 4.4, Chloride Level 102 , Carbon Dioxide Level 30, Anion Gap 4L, Blood Urea Nitrogen 21H, Creatinine 0.7 , Estimat Glomerular Filtration Rate , Glucose Level 113H, Calcium Level 7.8L, Phosphorus Level 3.4, Magnesium Level 2.1, Total Bilirubin 3.5H, Direct Bilirubin 2.5H, Aspartate Amino Transf (AST/SGOT) 85H, Alanine Aminotransferase (ALT/SGPT) 58, Alkaline Phosphatase 1641H, Total Protein 6.4, Albumin 1.8L, Globulin 4.6, Albumin/Globulin Ratio 0.4L Height (Feet): 5 Height (Inches): 4.00 Weight (Pounds): 93 General Appearance: confused Respiratory/Chest: decreased breath sounds Abdomen: soft Johnny Sinha MD Oct 18, 2017 02:06
[2017-10-18] MEDS: Acetaminophen 650mg/20.3ml NG PRN ×2 (02:32→11:38)
[2017-10-18] MEDS: D5 1/2NS 1,000 ML IV SCH (03:00)
[2017-10-18 04:00] VITALS: BP 103/50
[2017-10-18 05:59] LABS: EOSINOPHILS % (AUTO) 1.5 % (0.0-3.0); HEMATOCRIT 26.2 % (42.0-52.0); LYMPHOCYTES % (AUTO) 10.3 % (20.0-45.0); MEAN CORPUSCULAR VOLUME 94 FL (80-99); MONOCYTES % (AUTO) 10.4 % (1.0-10.0); NEUTROPHILS % (AUTO) 76.8 % (45.0-75.0); PLATELET COUNT 136 K/UL (150-450); RED BLOOD COUNT 2.78 M/UL (4.70-6.10); RED CELL DISTRIBUTION WIDTH 15.9 % (11.6-14.8); WHITE BLOOD COUNT 10.2 K/UL (4.8-10.8)
[2017-10-18 06:13] LABS: ALANINE AMINOTRANSFERASE 57 U/L (12-78); ALBUMIN 1.8 G/DL (3.4-5.0); ALBUMIN/GLOBULIN RATIO 0.4 (1.0-2.7); ALKALINE PHOSPHATASE 1754 U/L (46-116); ANION GAP 6 mmol/L (5-15); ASPARTATE AMINO TRANSFERASE 81 U/L (15-37); BILIRUBIN,TOTAL 3.8 MG/DL (0.2-1.0); BLOOD UREA NITROGEN 19 mg/dL (7-18); CALCIUM 7.8 MG/DL (8.5-10.1); CARBON DIOXIDE 28 MMOL/L (21-32); CHLORIDE 101 MMOL/L (98-107); CREATININE 0.7 MG/DL (0.55-1.30); PHOSPHORUS 3.3 MG/DL (2.5-4.9); POTASSIUM 3.1 MMOL/L (3.5-5.1); SODIUM 135 MMOL/L (136-145)
[2017-10-18 06:31] LABS: BILIRUBIN,DIRECT 3.1 MG/DL (0.0-0.3)
[2017-10-18 08:00] VITALS: BP 117/52
[2017-10-18] MEDS: Pantoprazole Inj IVP SCH (09:07)
[2017-10-18] MEDS: dilTIAZem HCl 30mg tab NG SCH ×2 (09:07→17:51)
[2017-10-18] MEDS: Ketotifen Fumarate 0.035% 5ml BOTH EYES SCH (09:08)
[2017-10-18] MEDS ORDERED: Potassium Chloride 40 MEQ in Sodium Chloride 500ML 550 ML IVPB ONE (10:00)
--- NOTE | 2017-10-18 10:17 | Pulmonolgy Critical Care Note ---
Critical Care - Asmt/Plan Problems: (1) ARDS (adult respiratory distress syndrome) (2) Aspiration pneumonia (3) Anemia (4) Thrombocytopenia (5) Diabetes mellitus (6) Protein-calorie malnutrition, severe Respiratory: monitor respiratory rate, adjust FIO2, CXR Cardiac: continue to monitor HR/BP Renal: F/U I&O Infectious Disease: check cultures Gastrointestinal: continue feedings/current rate Endocrine: monitor blood sugar, check TSH Hematologic: monitor H/H Neurologic: PRN Morphine Affect: PRN ativan Notes Reviewed: cardio, renal Discussed with: nurses Critical Care - Objective Last 24 Hour Vital Signs Date Time Temp Pulse Resp B/P (MAP) Pulse Ox O2 Delivery O2 Flow Rate FiO2 10/18/17 09:07 92 117/52 10/18/17 08:00 40 10/18/17 08:00 97.0 92 28 117/52 100 Mechanical Ventilator 40 97.0 10/18/17 07:30 78 10/18/17 07:20 79 25 40 10/18/17 05:37 78 18 40 10/18/17 04:00 40 10/18/17 04:00 98.6 90 20 103/50 100 Mechanical Ventilator 40 98.6 10/18/17 03:37 86 10/18/17 03:37 79 18 40 10/18/17 00:43 82 18 40 10/18/17 00:00 40 10/18/17 00:00 97.8 98 20 120/65 99 Mechanical Ventilator 40 97.8 10/17/17 23:48 84 19 40 10/17/17 23:36 86 10/17/17 21:26 70 18 40 10/17/17 20:00 40 10/17/17 20:00 98.1 73 18 118/61 100 Mechanical Ventilator 40 98.1 10/17/17 19:35 74 18 40 10/17/17 19:32 71 10/17/17 17:30 76 138/63 10/17/17 17:10 80 22 40 10/17/17 16:45 98.2 98 32 138/63 98 Mechanical Ventilator 40 98.2 10/17/17 16:00 90 10/17/17 16:00 40 10/17/17 12:00 74 10/17/17 12:00 97.3 74 18 119/64 100 Mechanical Ventilator 40 97.3 10/17/17 12:00 40 10/17/17 10:56 73 18 40 Status: awake Condition: critical Neck: full ROM Heart: HR/BP stable Abdomen: soft, non-tender, feeding tube Extremities: edema Decubiti: location Accucheck: 149 Critical Care - Subjective ROS Limited/Unobtainable: Yes Interval Events: bleeding from trach site Condition: critical EKG Rhythm: Sinus Rhythm FI02: 40 Vent Support Breath Rate: 18 Vent Support Mode: AC Vent Tidal Volume: 450 Sputum Amount: Small PEEP: 4.0 PIP: 49 Tube Feeding Amount: 50 I&O: Intake and Output 10/17/17 10/18/17 19:00 07:00 Intake Total 646.25 ml 1150 ml Output Total 1550 ml 500 ml Balance -903.75 ml 650 ml Intake Oral 300 ml Free Water 100 ml IV Total 646.25 ml 750 ml Output Urine Total 1550 ml 500 ml # Bowel Movements 2 2 CXR: no changes ET-Tube: 7.5 ET Position: 21 Labs: Laboratory Tests Test 10/18/17 04:00 White Blood Count 10.2 K/UL (4.8-10.8) Red Blood Count 2.78 M/UL (4.70-6.10) L Hemoglobin 9.0 G/DL (14.2-18.0) L Hematocrit 26.2 % (42.0-52.0) L Mean Corpuscular Volume 94 FL (80-99) Mean Corpuscular Hemoglobin 32.5 PG (27.0-31.0) H Mean Corpuscular Hemoglobin Concent 34.5 G/DL (32.0-36.0) Red Cell Distribution Width 15.9 % (11.6-14.8) H Platelet Count 136 K/UL (150-450) L Mean Platelet Volume 10.4 FL (6.5-10.1) H Neutrophils (%) (Auto) 76.8 % (45.0-75.0) H Lymphocytes (%) (Auto) 10.3 % (20.0-45.0) L Monocytes (%) (Auto) 10.4 % (1.0-10.0) H Eosinophils (%) (Auto) 1.5 % (0.0-3.0) Basophils (%) (Auto) 1.0 % (0.0-2.0) Sodium Level 135 MMOL/L (136-145) L Potassium Level 3.1 MMOL/L (3.5-5.1) L Chloride Level 101 MMOL/L (98-107) Carbon Dioxide Level 28 MMOL/L (21-32) Anion Gap 6 mmol/L (5-15) Blood Urea Nitrogen 19 mg/dL (7-18) H Creatinine 0.7 MG/DL (0.55-1.30) Estimat Glomerular Filtration Rate mL/min (>60) Glucose Level 192 MG/DL (74-106) H Calcium Level 7.8 MG/DL (8.5-10.1) L Phosphorus Level 3.3 MG/DL (2.5-4.9) Magnesium Level 1.8 MG/DL (1.8-2.4) Total Bilirubin 3.8 MG/DL (0.2-1.0) H Direct Bilirubin 3.1 MG/DL (0.0-0.3) H Aspartate Amino Transf (AST/SGOT) 81 U/L (15-37) H Alanine Aminotransferase (ALT/SGPT) 57 U/L (12-78) Alkaline Phosphatase 1754 U/L (46-116) H Total Protein 6.2 G/DL (6.4-8.2) L Albumin 1.8 G/DL (3.4-5.0) L Globulin 4.4 g/dL Albumin/Globulin Ratio 0.4 (1.0-2.7) L Tayler Liu MD Oct 18, 2017 10:17
--- NOTE | 2017-10-18 11:19 | General Progress Note ---
Progress Note Progress Note Surgery: doing well. responsive and following commands. trach clean without further oozing of blood. on vent. respiratory status improving but still requiring vent support. wean as tolerated. trach care and management Adryan Echevarria Oct 18, 2017 11:19
[2017-10-18] MEDS: NovoLOG Insulin Flexpen SUBQ SCH ×2 (11:51→17:52)
--- NOTE | 2017-10-18 11:56 | Nephrology Progress Note ---
Assessment/Plan Problem List: (1) ARDS (adult respiratory distress syndrome) (2) Electrolyte imbalance (3) Thrombocytopenia Assessment (1) ARDS (adult respiratory distress syndrome) s/p Trach (2) Aspiration pneumonia (3) Protein-calorie malnutrition, severe (4) Diabetes mellitus (5) Anemia , aplastic by history (6) DM (7) UTI (8) Electrolyte imbalance (9) HTN (10) Depression (11) RA . Plan stable - had trach and PEG water via NGT Adjust BP meds K and Phos supplement as needed Monitor renal parameters and urine output avoid nephrotoxics per orders discussed with RN Left ventricular ejection fraction estimated to be 55 %. Subjective ROS Limited/Unobtainable: Yes Objective Objective Last 24 Hour Vital Signs Date Time Temp Pulse Resp B/P (MAP) Pulse Ox O2 Delivery O2 Flow Rate FiO2 10/18/17 09:07 92 117/52 10/18/17 08:52 69 24 40 10/18/17 08:00 40 10/18/17 08:00 97.0 92 28 117/52 100 Mechanical Ventilator 40 97.0 10/18/17 07:30 78 10/18/17 07:20 79 25 40 10/18/17 05:37 78 18 40 10/18/17 04:00 40 10/18/17 04:00 98.6 90 20 103/50 100 Mechanical Ventilator 40 98.6 10/18/17 03:37 86 10/18/17 03:37 79 18 40 10/18/17 00:43 82 18 40 10/18/17 00:00 40 10/18/17 00:00 97.8 98 20 120/65 99 Mechanical Ventilator 40 97.8 10/17/17 23:48 84 19 40 10/17/17 23:36 86 10/17/17 21:26 70 18 40 10/17/17 20:00 40 10/17/17 20:00 98.1 73 18 118/61 100 Mechanical Ventilator 40 98.1 10/17/17 19:35 74 18 40 10/17/17 19:32 71 10/17/17 17:30 76 138/63 10/17/17 17:10 80 22 40 10/17/17 16:45 98.2 98 32 138/63 98 Mechanical Ventilator 40 98.2 10/17/17 16:00 90 10/17/17 16:00 40 10/17/17 12:00 74 10/17/17 12:00 97.3 74 18 119/64 100 Mechanical Ventilator 40 97.3 10/17/17 12:00 40 Intake and Output 10/17/17 10/18/17 19:00 07:00 Intake Total 646.25 ml 1150 ml Output Total 1550 ml 500 ml Balance -903.75 ml 650 ml Intake Oral 300 ml Free Water 100 ml IV Total 646.25 ml 750 ml Output Urine Total 1550 ml 500 ml # Bowel Movements 2 2 Laboratory Tests 10/18/17 04:00: White Blood Count 10.2, Red Blood Count 2.78L, Hemoglobin 9.0L, Hematocrit 26.2L , Mean Corpuscular Volume 94, Mean Corpuscular Hemoglobin 32.5H, Mean Corpuscular Hemoglobin Concent 34.5, Red Cell Distribution Width 15.9H, Platelet Count 136L, Mean Platelet Volume 10.4H, Neutrophils (%) (Auto) 76.8H, Lymphocytes (%) (Auto) 10.3L, Monocytes (%) (Auto) 10.4H, Eosinophils (%) (Auto ) 1.5, Basophils (%) (Auto) 1.0, Sodium Level 135L, Potassium Level 3.1L, Chloride Level 101, Carbon Dioxide Level 28, Anion Gap 6, Blood Urea Nitrogen 19H, Creatinine 0.7, Estimat Glomerular Filtration Rate , Glucose Level 192H, Calcium Level 7.8L, Phosphorus Level 3.3, Magnesium Level 1.8, Total Bilirubin 3.8H, Direct Bilirubin 3.1H, Aspartate Amino Transf (AST/SGOT) 81H, Alanine Aminotransferase (ALT/SGPT) 57, Alkaline Phosphatase 1754H, Total Protein 6.2L, Albumin 1.8L, Globulin 4.4, Albumin/Globulin Ratio 0.4L Height (Feet): 5 Height (Inches): 4.00 Weight (Pounds): 92 General Appearance: no apparent distress Cardiovascular: arrhythmia Respiratory/Chest: decreased breath sounds Abdomen: soft Objective no change YAEL HANSEN Oct 18, 2017 11:56
[2017-10-18 12:00] VITALS: BP 113/56
[2017-10-18] MEDS: Morphine Sulfate 2mg/ml Inj IVP PRN ×2 (13:38→13:42)
--- NOTE | 2017-10-18 13:54 | General Progress Note ---
Assessment/Plan Assessment/Plan Assessment - Resp failure / ARDS / PNA - s/p trach - Abnormal LFT, Biliary obstruction - s/p stent - cause of elevated Alk phos unclear - ? biliary sludge, - ? poorly draining stent, - ? intrahepatic cholestasis, - no current suspect drugs at this time but has been on a number of abx associated with cholestasis - ? infiltrative d/o - Jaundice - bili improved - Anemia with OB (+) stools - coagulopathy - improved - Malnutrition - s/p PEG - hypernatremia - AMS - improved Recommendations - follow labs - continue TF - Minimize medication use, given LFT changes - transfuse PRN - Elevate HOB - Vent care - Monitor labs - follow LFT - ? repeat ERCP Subjective Allergies: Coded Allergies: No Known Allergies (Verified , 11/18/08) Subjective Above noted tolerating TF awake Objective Last 24 Hour Vital Signs Date Time Temp Pulse Resp B/P (MAP) Pulse Ox O2 Delivery O2 Flow Rate FiO2 10/18/17 12:00 40 10/18/17 12:00 97.7 94 30 113/56 100 Mechanical Ventilator 40 97.7 10/18/17 11:26 105 36 40 10/18/17 09:07 92 117/52 10/18/17 08:52 69 24 40 10/18/17 08:00 40 10/18/17 08:00 97.0 92 28 117/52 100 Mechanical Ventilator 40 97.0 10/18/17 07:30 78 10/18/17 07:20 79 25 40 10/18/17 05:37 78 18 40 10/18/17 04:00 40 10/18/17 04:00 98.6 90 20 103/50 100 Mechanical Ventilator 40 98.6 10/18/17 03:37 86 10/18/17 03:37 79 18 40 10/18/17 00:43 82 18 40 10/18/17 00:00 40 10/18/17 00:00 97.8 98 20 120/65 99 Mechanical Ventilator 40 97.8 10/17/17 23:48 84 19 40 10/17/17 23:36 86 10/17/17 21:26 70 18 40 10/17/17 20:00 40 10/17/17 20:00 98.1 73 18 118/61 100 Mechanical Ventilator 40 98.1 10/17/17 19:35 74 18 40 10/17/17 19:32 71 10/17/17 17:30 76 138/63 10/17/17 17:10 80 22 40 10/17/17 16:45 98.2 98 32 138/63 98 Mechanical Ventilator 40 98.2 10/17/17 16:00 90 10/17/17 16:00 40 Intake and Output 10/17/17 10/18/17 19:00 07:00 Intake Total 646.25 ml 1150 ml Output Total 1550 ml 500 ml Balance -903.75 ml 650 ml Intake Oral 300 ml Free Water 100 ml IV Total 646.25 ml 750 ml Output Urine Total 1550 ml 500 ml # Bowel Movements 2 2 Laboratory Tests 10/18/17 04:00: White Blood Count 10.2, Red Blood Count 2.78L, Hemoglobin 9.0L, Hematocrit 26.2L , Mean Corpuscular Volume 94, Mean Corpuscular Hemoglobin 32.5H, Mean Corpuscular Hemoglobin Concent 34.5, Red Cell Distribution Width 15.9H, Platelet Count 136L, Mean Platelet Volume 10.4H, Neutrophils (%) (Auto) 76.8H, Lymphocytes (%) (Auto) 10.3L, Monocytes (%) (Auto) 10.4H, Eosinophils (%) (Auto ) 1.5, Basophils (%) (Auto) 1.0, Sodium Level 135L, Potassium Level 3.1L, Chloride Level 101, Carbon Dioxide Level 28, Anion Gap 6, Blood Urea Nitrogen 19H, Creatinine 0.7, Estimat Glomerular Filtration Rate , Glucose Level 192H, Calcium Level 7.8L, Phosphorus Level 3.3, Magnesium Level 1.8, Total Bilirubin 3.8H, Direct Bilirubin 3.1H, Aspartate Amino Transf (AST/SGOT) 81H, Alanine Aminotransferase (ALT/SGPT) 57, Alkaline Phosphatase 1754H, Total Protein 6.2L, Albumin 1.8L, Globulin 4.4, Albumin/Globulin Ratio 0.4L Height (Feet): 5 Height (Inches): 4.00 Weight (Pounds): 92 Objective WDWN NCAT supple, (+) trach CTA RRR abd soft , (+) GT (+) LE edema opens eyes ARNULFO DURON Oct 18, 2017 13:54
--- NOTE | 2017-10-18 15:29 | Internal Med Progress Note ---
Subjective Date of Service: Oct 18, 2017 Physician Name Sina Bowens Attending Physician Jesus Barahona MD Current Medications Medications (Trade) Dose Ordered Sig/Hermes Route PRN Reason Start Time Stop Time Status Last Admin Dose Admin Acetaminophen (Tylenol) 650 mg Q6H PRN NG Fever/Headache/Mild Pain 10/14/17 17:00 11/10/17 16:59 10/18/17 11:38 Clotrimazole (Lotrimin) 1 applic EVERY 12 HOURS TOPIC 10/14/17 21:00 11/09/17 22:59 10/18/17 09:08 Dextrose (Dextrose 50%) 25 ml STAT PRN IV Hypoglycemia 10/18/17 08:30 11/17/17 08:29 Dextrose (Dextrose 50%) 50 ml STAT PRN IV Hypoglycemia 10/18/17 08:30 11/17/17 08:29 Diltiazem HCl (Cardizem) 30 mg BID NG 10/14/17 18:00 11/10/17 08:59 10/18/17 09:07 Furosemide (Lasix) 40 mg DAILY IV 10/15/17 09:00 11/12/17 08:59 10/18/17 09:07 Insulin Aspart (NovoLOG) Q6HR SUBQ 10/18/17 12:00 11/17/17 11:59 10/18/17 11:51 Ketotifen Fumarate (Zatidor) 1 drop DAILY BOTH EYES 10/15/17 09:00 10/25/17 08:59 10/18/17 09:08 Morphine Sulfate (Morphine Sulfate) 1 mg Q4HR PRN IVP For Pain 10/18/17 11:45 10/25/17 11:44 10/18/17 13:42 Pantoprazole (Protonix) 40 mg DAILY IVP 10/15/17 09:00 11/01/17 08:59 10/18/17 09:07 Potassium Chloride (K-Dur) 20 meq DAILY ORAL 10/15/17 09:00 11/12/17 08:59 10/18/17 09:07 Allergies: Coded Allergies: No Known Allergies (Verified , 11/18/08) ROS Limited/Unobtainable: Yes Subjective 76 YO F admitted with Shortness of breath, now respiratory failure. Intubated and sedated. Cover for Internal Med-Dr. Barahona. RAJINDER . S/P ERCP 3/28/18. S/P Tracheostomy and bronchoscopy 10/13/17 Objective Last Vital Signs Date Time Temp Pulse Resp B/P (MAP) Pulse Ox O2 Delivery O2 Flow Rate FiO2 10/18/17 15:25 93 26 40 10/18/17 12:00 97.7 113/56 100 Mechanical Ventilator 97.7 Laboratory Tests Test 10/18/17 04:00 White Blood Count 10.2 K/UL (4.8-10.8) Red Blood Count 2.78 M/UL (4.70-6.10) L Hemoglobin 9.0 G/DL (14.2-18.0) L Hematocrit 26.2 % (42.0-52.0) L Mean Corpuscular Volume 94 FL (80-99) Mean Corpuscular Hemoglobin 32.5 PG (27.0-31.0) H Mean Corpuscular Hemoglobin Concent 34.5 G/DL (32.0-36.0) Red Cell Distribution Width 15.9 % (11.6-14.8) H Platelet Count 136 K/UL (150-450) L Mean Platelet Volume 10.4 FL (6.5-10.1) H Neutrophils (%) (Auto) 76.8 % (45.0-75.0) H Lymphocytes (%) (Auto) 10.3 % (20.0-45.0) L Monocytes (%) (Auto) 10.4 % (1.0-10.0) H Eosinophils (%) (Auto) 1.5 % (0.0-3.0) Basophils (%) (Auto) 1.0 % (0.0-2.0) Sodium Level 135 MMOL/L (136-145) L Potassium Level 3.1 MMOL/L (3.5-5.1) L Chloride Level 101 MMOL/L (98-107) Carbon Dioxide Level 28 MMOL/L (21-32) Anion Gap 6 mmol/L (5-15) Blood Urea Nitrogen 19 mg/dL (7-18) H Creatinine 0.7 MG/DL (0.55-1.30) Estimat Glomerular Filtration Rate mL/min (>60) Glucose Level 192 MG/DL (74-106) H Calcium Level 7.8 MG/DL (8.5-10.1) L Phosphorus Level 3.3 MG/DL (2.5-4.9) Magnesium Level 1.8 MG/DL (1.8-2.4) Total Bilirubin 3.8 MG/DL (0.2-1.0) H Direct Bilirubin 3.1 MG/DL (0.0-0.3) H Aspartate Amino Transf (AST/SGOT) 81 U/L (15-37) H Alanine Aminotransferase (ALT/SGPT) 57 U/L (12-78) Alkaline Phosphatase 1754 U/L (46-116) H Total Protein 6.2 G/DL (6.4-8.2) L Albumin 1.8 G/DL (3.4-5.0) L Globulin 4.4 g/dL Albumin/Globulin Ratio 0.4 (1.0-2.7) L Intake and Output 10/17/17 10/18/17 19:00 07:00 Intake Total 646.25 ml 1150 ml Output Total 1550 ml 500 ml Balance -903.75 ml 650 ml Intake Oral 300 ml Free Water 100 ml IV Total 646.25 ml 750 ml Output Urine Total 1550 ml 500 ml # Bowel Movements 2 2 Objective General Appearance: lethargic, thin EENT: normal ENT inspection Neck: Trach; non-tender, normal alignment, supple Cardiovascular: normal peripheral pulses, normal rate, regular rhythm, no gallop/murmur, no JVD Respiratory/Chest: Mechanical vent; respiratory distress, crackles/rales, rhonchi - bilaterally, expiratory wheezing Abdomen: normal bowel sounds, non tender, soft, no organomegaly, no mass Skin: normal pigmentation, warm/dry Assessment/Plan Problem List: (1) HTN (hypertension) Assessment & Plan: Currently hypotensive. (2) Arthritis, rheumatoid (3) Parkinsons disease (4) Aplastic anemia (5) GERD (gastroesophageal reflux disease) (6) Respiratory failure Assessment & Plan: S/P Tracheostomy and broncholsopy 10/13/17. Cont vent per pulmonary (7) Pneumonia (8) Dyspnea (9) Sepsis Assessment & Plan: Blood culture neg. Continue Amikacin, micafungin and flagyl per ID (10) ARDS (adult respiratory distress syndrome) Assessment & Plan: See pulmonary note (11) UTI (urinary tract infection) Assessment & Plan: E.Coli. Continue abx per ID (12) Anemia Assessment & Plan: S/P Transfusion 4 units PRBC (13) Diabetes mellitus, type II Assessment & Plan: Continue novolog sliding scale (14) Leukocytosis Assessment & Plan: Worsening. See ID note. Start amikacin and fluconazole (15) Thrombocytopenia (16) Gallbladder sludge Assessment & Plan: s/P ERCP 10/01, 10/07/17 and 10/08/17 (17) Coagulopathy Assessment & Plan: S/P FFP and Vit K Status: not improved Assessment/Plan Discharge planning SINA BOWENS Oct 18, 2017 15:29
--- NOTE | 2017-10-18 15:50 | Cardiac Electrophysiology PN ---
Assessment/Plan Assessment/Plan 1. Vent dependent Respiratory failure, due to underlying ARDS , pneumonia. Ruled out for myocardial infarction. S/P Tracheostomy. 2. Left bundle-branch block. No evidence of more advanced heart block. 3. HTN and diastolic dysfunction. Echo EF 55% On Cardizem 30 BID and Lasix 40 iv daily 4. Hypernatremia and Azotemia. F/U per Dr. Mayer 5. Pneumonia and sepsis on IV antibiotics by Dr. Hunter. 6. Psychiatric disorder. 7. Anasarca. 3rd spacing. 8. Anemia with Hb 6.6 s/p PRBC. CT chest abdomen and pelvis without contrast no acute finding S/P EGD by Dr Walton. S/P PEG 10/16/17 9. Severe thrombocytopenia. S/P platelet transfusion 10. Abnormal LFT, Biliary obstruction, possible cholangitis. S/P ERCP. CBD sludge. S/P repeat ERCP and stent by Dr. Walton Bilirubin down to 4 11. High INR 3.5 likely due to hepatic failure. S/P FFP and Vit K. INR 1 DW RN Subjective Subjective No SVT or VT. Alert in NAD. S/P PEG placement. Sitter at bedside. Objective Last 24 Hour Vital Signs Date Time Temp Pulse Resp B/P (MAP) Pulse Ox O2 Delivery O2 Flow Rate FiO2 10/18/17 15:25 93 26 40 10/18/17 13:24 117 36 40 10/18/17 12:00 40 10/18/17 12:00 97.7 94 30 113/56 100 Mechanical Ventilator 40 97.7 10/18/17 11:37 106 10/18/17 11:26 105 36 40 10/18/17 09:07 92 117/52 10/18/17 08:52 69 24 40 10/18/17 08:00 40 10/18/17 08:00 97.0 92 28 117/52 100 Mechanical Ventilator 40 97.0 10/18/17 07:30 78 10/18/17 07:20 79 25 40 10/18/17 05:37 78 18 40 10/18/17 04:00 40 10/18/17 04:00 98.6 90 20 103/50 100 Mechanical Ventilator 40 98.6 10/18/17 03:37 86 10/18/17 03:37 79 18 40 10/18/17 00:43 82 18 40 10/18/17 00:00 40 10/18/17 00:00 97.8 98 20 120/65 99 Mechanical Ventilator 40 97.8 10/17/17 23:48 84 19 40 10/17/17 23:36 86 10/17/17 21:26 70 18 40 10/17/17 20:00 40 10/17/17 20:00 98.1 73 18 118/61 100 Mechanical Ventilator 40 98.1 10/17/17 19:35 74 18 40 10/17/17 19:32 71 10/17/17 17:30 76 138/63 10/17/17 17:10 80 22 40 10/17/17 16:45 98.2 98 32 138/63 98 Mechanical Ventilator 40 98.2 10/17/17 16:00 90 10/17/17 16:00 40 Intake and Output 10/17/17 10/18/17 19:00 07:00 Intake Total 646.25 ml 1150 ml Output Total 1550 ml 500 ml Balance -903.75 ml 650 ml Intake Oral 300 ml Free Water 100 ml IV Total 646.25 ml 750 ml Output Urine Total 1550 ml 500 ml # Bowel Movements 2 2 Laboratory Tests Test 10/18/17 04:00 White Blood Count 10.2 K/UL (4.8-10.8) Red Blood Count 2.78 M/UL (4.70-6.10) L Hemoglobin 9.0 G/DL (14.2-18.0) L Hematocrit 26.2 % (42.0-52.0) L Mean Corpuscular Volume 94 FL (80-99) Mean Corpuscular Hemoglobin 32.5 PG (27.0-31.0) H Mean Corpuscular Hemoglobin Concent 34.5 G/DL (32.0-36.0) Red Cell Distribution Width 15.9 % (11.6-14.8) H Platelet Count 136 K/UL (150-450) L Mean Platelet Volume 10.4 FL (6.5-10.1) H Neutrophils (%) (Auto) 76.8 % (45.0-75.0) H Lymphocytes (%) (Auto) 10.3 % (20.0-45.0) L Monocytes (%) (Auto) 10.4 % (1.0-10.0) H Eosinophils (%) (Auto) 1.5 % (0.0-3.0) Basophils (%) (Auto) 1.0 % (0.0-2.0) Sodium Level 135 MMOL/L (136-145) L Potassium Level 3.1 MMOL/L (3.5-5.1) L Chloride Level 101 MMOL/L (98-107) Carbon Dioxide Level 28 MMOL/L (21-32) Anion Gap 6 mmol/L (5-15) Blood Urea Nitrogen 19 mg/dL (7-18) H Creatinine 0.7 MG/DL (0.55-1.30) Estimat Glomerular Filtration Rate mL/min (>60) Glucose Level 192 MG/DL (74-106) H Calcium Level 7.8 MG/DL (8.5-10.1) L Phosphorus Level 3.3 MG/DL (2.5-4.9) Magnesium Level 1.8 MG/DL (1.8-2.4) Total Bilirubin 3.8 MG/DL (0.2-1.0) H Direct Bilirubin 3.1 MG/DL (0.0-0.3) H Aspartate Amino Transf (AST/SGOT) 81 U/L (15-37) H Alanine Aminotransferase (ALT/SGPT) 57 U/L (12-78) Alkaline Phosphatase 1754 U/L (46-116) H Total Protein 6.2 G/DL (6.4-8.2) L Albumin 1.8 G/DL (3.4-5.0) L Globulin 4.4 g/dL Albumin/Globulin Ratio 0.4 (1.0-2.7) L Objective HEAD AND NECK: Tracheostomy in place. LUNGS: Coarse rhonchi bilaterally CARDIOVASCULAR: Tachy S1 and S2.No murmur ABDOMEN: Soft.PEG in place EXTREMITIES: No edema. Charile Darnell MD Oct 18, 2017 15:50
[2017-10-18 15:57] VITALS: BP 119/61
[2017-10-18] MEDS ORDERED: Morphine Sulfate 4mg/ml Inj IVP PRN (18:15)
[2017-10-18] MEDS: Morphine Sulfate 4mg/ml Inj IVP PRN (18:44)
[2017-10-18 20:00] VITALS: BP 122/66
--- NOTE | 2017-10-18 23:39 | General Progress Note ---
Assessment/Plan Assessment/Plan #. Anemia due to underlying chronic disease. Continue to closely monitor. --> Hemoglobin goal is above 7. --> S/P blood transfusion as hemoglobin levels fell low. --> Occult blood detected. Consider GI recs. --> Transfuse as necessary --> Blood transfusion not required unless symptomatic or hgb below goal. #. Pancytopenia --> WBC count and platelet counts are within normal levels now. --> Hemoglobin levels downtrended. Transfuse if continues to drop. --> Transfuse platelets if <20k --> Monitor and trend cbc daily. #. Coagulopathy - potentially related to DIC early onset, review hapto, inr repeat, fibrinogen, DIC panel --> administer FFP 4 units and vitamin k repeat prior to procedure --> DW pulm Dr. Parekh --> Likely related to infection versus other cause. On antibiotics. #. Leukocytosis likely related to underlying pneumonia infection. --> Resolved on antibiotic treatment. #. Thrombocytopenia, severe and progressive, acute onset, likely secondary to underlying infection, aspiration, hit was negative --> Duplex of the lower extremities is negative, therefore less likely HIT and other causes are more likely such as underlying infection. --> Platelets goal >20k, transfuse if necessary. --> On antibiotics as per ID --> Platelet count has been downtrending, monitor closely. #. Community-acquired pneumonia versus hospital-acquired. --> The patient on broad-spectrum antibiotics. --> Improved. --> Urine culture growing E. coli. Continue to closely monitor. #. Transaminitis. She has been seen by GI Service. Continue to closely monitor. #. Low-grade fever. Closely observe. #. Encephalopathy. Subjective Date patient seen: Oct 17, 2017 Constitutional: Denies: no symptoms, chills, diaphoresis, fever, malaise, weakness, other HEENT: Denies: no symptoms, eye pain, blurred vision, tearing, double vision, ear pain, ear discharge, nose pain, nose congestion, throat pain, throat swelling, mouth pain, mouth swelling, other Cardiovascular: Denies: no symptoms, chest pain, edema, irregular heart rate, lightheadedness, palpitations, syncope, other Respiratory: Denies: no symptoms, cough, orthopnea, shortness of breath, SOB with excertion, SOB at rest, sputum, stridor, wheezing, other Gastrointestinal/Abdominal: Denies: no symptoms, abdomen distended, abdominal pain, black stools, tarry stools, blood in stool, constipated, diarrhea, difficulty swallowing, nausea, poor appetite, poor fluid intake, rectal bleeding , vomiting, other Genitourinary: Denies: no symptoms, burning, discharge, frequency, flank pain, hematuria, incontinence, pain, urgency, other 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: Denies: no symptoms, anxiety, depressed, emotional problems, headache, numbness, paresthesia, pre-existing deficit, seizure, tingling, tremors, weakness, other Hematologic/Lymphatic: Reports: anemia Allergies: Coded Allergies: No Known Allergies (Verified , 11/18/08) Subjective Remains confused. S/P blood transfusion. No adverse events. Objective Last 24 Hour Vital Signs Date Time Temp Pulse Resp B/P (MAP) Pulse Ox O2 Delivery O2 Flow Rate FiO2 10/18/17 21:28 95 22 40 10/18/17 20:00 97.9 83 25 122/66 100 Mechanical Ventilator 40 97.9 10/18/17 20:00 40 10/18/17 19:44 83 28 40 10/18/17 17:51 101 119/61 10/18/17 17:21 109 35 40 10/18/17 16:00 40 10/18/17 16:00 87 10/18/17 15:57 97.3 95 24 119/61 100 Mechanical Ventilator 40 97.3 10/18/17 15:25 93 26 40 10/18/17 13:24 117 36 40 10/18/17 12:00 40 10/18/17 12:00 97.7 94 30 113/56 100 Mechanical Ventilator 40 97.7 10/18/17 11:37 106 10/18/17 11:26 105 36 40 10/18/17 09:07 92 117/52 10/18/17 08:52 69 24 40 10/18/17 08:00 40 10/18/17 08:00 97.0 92 28 117/52 100 Mechanical Ventilator 40 97.0 10/18/17 07:30 78 10/18/17 07:20 79 25 40 10/18/17 05:37 78 18 40 10/18/17 04:00 40 10/18/17 04:00 98.6 90 20 103/50 100 Mechanical Ventilator 40 98.6 10/18/17 03:37 86 10/18/17 03:37 79 18 40 10/18/17 00:43 82 18 40 10/18/17 00:00 40 10/18/17 00:00 97.8 98 20 120/65 99 Mechanical Ventilator 40 97.8 10/17/17 23:48 84 19 40 Intake and Output 10/17/17 10/18/17 19:00 07:00 Intake Total 646.25 ml 1150 ml Output Total 1550 ml 500 ml Balance -903.75 ml 650 ml Intake Oral 300 ml Free Water 100 ml IV Total 646.25 ml 750 ml Output Urine Total 1550 ml 500 ml # Bowel Movements 2 2 Laboratory Tests 10/18/17 04:00: White Blood Count 10.2, Red Blood Count 2.78L, Hemoglobin 9.0L, Hematocrit 26.2L , Mean Corpuscular Volume 94, Mean Corpuscular Hemoglobin 32.5H, Mean Corpuscular Hemoglobin Concent 34.5, Red Cell Distribution Width 15.9H, Platelet Count 136L, Mean Platelet Volume 10.4H, Neutrophils (%) (Auto) 76.8H, Lymphocytes (%) (Auto) 10.3L, Monocytes (%) (Auto) 10.4H, Eosinophils (%) (Auto ) 1.5, Basophils (%) (Auto) 1.0, Sodium Level 135L, Potassium Level 3.1L, Chloride Level 101, Carbon Dioxide Level 28, Anion Gap 6, Blood Urea Nitrogen 19H, Creatinine 0.7, Estimat Glomerular Filtration Rate , Glucose Level 192H, Calcium Level 7.8L, Phosphorus Level 3.3, Magnesium Level 1.8, Total Bilirubin 3.8H, Direct Bilirubin 3.1H, Aspartate Amino Transf (AST/SGOT) 81H, Alanine Aminotransferase (ALT/SGPT) 57, Alkaline Phosphatase 1754H, Total Protein 6.2L, Albumin 1.8L, Globulin 4.4, Albumin/Globulin Ratio 0.4L Height (Feet): 5 Height (Inches): 4.00 Weight (Pounds): 92 General Appearance: confused Respiratory/Chest: decreased breath sounds Abdomen: soft Johnny Sinha MD Oct 18, 2017 23:39
[2017-10-19] VITALS: BP 141/65
[2017-10-19] MEDS: NovoLOG Insulin Flexpen SUBQ SCH ×5 (00:51→20:54)
[2017-10-19 04:00] VITALS: BP 125/60
[2017-10-19 05:18] LABS: BASOPHILS % (AUTO) 1.1 % (0.0-2.0); EOSINOPHILS % (AUTO) 2.1 % (0.0-3.0); HEMATOCRIT 28.8 % (37.0-47.0); HEMOGLOBIN 9.3 G/DL (12.0-16.0); LYMPHOCYTES % (AUTO) 15.6 % (20.0-45.0); MEAN CORPUSCULAR VOLUME 98 FL (80-99); MONOCYTES % (AUTO) 9.3 % (1.0-10.0); NEUTROPHILS % (AUTO) 71.9 % (45.0-75.0); PLATELET COUNT 162 K/UL (150-450); RED BLOOD COUNT 2.95 M/UL (4.20-5.40); RED CELL DISTRIBUTION WIDTH 16.4 % (11.6-14.8); WHITE BLOOD COUNT 12.2 K/UL (4.8-10.8)
[2017-10-19 06:02] LABS: ALANINE AMINOTRANSFERASE 58 U/L (12-78); ALBUMIN 2.1 G/DL (3.4-5.0); ALBUMIN/GLOBULIN RATIO 0.4 (1.0-2.7); ALKALINE PHOSPHATASE 1627 U/L (46-116); ANION GAP 4 mmol/L (5-15); ASPARTATE AMINO TRANSFERASE 65 U/L (15-37); BILIRUBIN,TOTAL 2.9 MG/DL (0.2-1.0); BLOOD UREA NITROGEN 19 mg/dL (7-18); CALCIUM 8.2 MG/DL (8.5-10.1); CARBON DIOXIDE 29 MMOL/L (21-32); CHLORIDE 106 MMOL/L (98-107); CREATININE 0.6 MG/DL (0.55-1.30); POTASSIUM 5.4 MMOL/L (3.5-5.1); SODIUM 139 MMOL/L (136-145)
[2017-10-19 06:07] LABS: BILIRUBIN,DIRECT 2.3 MG/DL (0.0-0.3)
[2017-10-19] MEDS: Morphine Sulfate 4mg/ml Inj IVP PRN (07:42)
[2017-10-19 08:30] VITALS: BP 135/71
--- NOTE | 2017-10-19 09:32 | Pulmonology Progress Note ---
Assessment/Plan Problems: (1) ARDS (adult respiratory distress syndrome) (2) Sepsis (3) Aspiration pneumonia (4) Parkinsons disease (5) Protein-calorie malnutrition, severe (6) Diabetes mellitus, type II Respiratory: monitor respiratory rate, adjust FIO2, CXR Cardiac: continue to monitor HR/BP Renal: F/U I&O, keep IV fluid, other - kayexalate Infectious Disease: check cultures Gastrointestinal: continue feedings/current rate Endocrine: monitor blood sugar, check TSH, continue sliding scale insulin Hematologic: transfuse if hgb<8.5 Neurologic: PRN Ativan, keep patient comfortable Affect: PRN ativan Prophylaxis: Protonix, Heparin Notes Reviewed: tax processor, cardio Discussed with: nurses, consultants, case aide Subjective ROS Limited/Unobtainable: No Constitutional: Reports: no symptoms HEENT: Repors: no symptoms Allergies: Coded Allergies: No Known Allergies (Verified , 11/18/08) Objective Last 24 Hour Vital Signs Date Time Temp Pulse Resp B/P (MAP) Pulse Ox O2 Delivery O2 Flow Rate FiO2 10/19/17 09:06 99 28 40 10/19/17 07:29 146 44 40 10/19/17 05:18 91 22 40 10/19/17 04:00 40 10/19/17 04:00 97.7 86 31 125/60 100 Mechanical Ventilator 40 97.7 10/19/17 03:13 97 28 40 10/19/17 02:58 100 10/19/17 01:23 89 21 40 10/19/17 00:00 97.0 85 34 141/65 100 Mechanical Ventilator 40 97.0 10/19/17 00:00 40 10/18/17 23:17 110 10/18/17 23:10 99 36 40 10/18/17 21:28 95 22 40 10/18/17 20:00 97.9 83 25 122/66 100 Mechanical Ventilator 40 97.9 10/18/17 20:00 85 10/18/17 20:00 40 10/18/17 19:44 83 28 40 10/18/17 17:51 101 119/61 10/18/17 17:21 109 35 40 10/18/17 16:00 40 10/18/17 16:00 87 10/18/17 15:57 97.3 95 24 119/61 100 Mechanical Ventilator 40 97.3 10/18/17 15:25 93 26 40 10/18/17 13:24 117 36 40 10/18/17 12:00 40 10/18/17 12:00 97.7 94 30 113/56 100 Mechanical Ventilator 40 97.7 10/18/17 11:37 106 10/18/17 11:26 105 36 40 Intake and Output 10/18/17 10/19/17 19:00 07:00 Intake Total 1197.5 ml 700 ml Output Total 1400 ml 600 ml Balance -202.5 ml 100 ml Free Water 110 ml 100 ml IV Total 427.5 ml Tube Feeding 630 ml 600 ml Other 30 ml Output Urine Total 1400 ml 600 ml # Bowel Movements 2 2 General Appearance: WD/WN HEENT: status post trach Respiratory/Chest: chest wall non-tender, accessory muscle use, crackles/rales Breasts: no masses Cardiovascular: normal peripheral pulses Abdomen: normal bowel sounds, soft, non tender Genitourinary: normal external genitalia Extremities: no clubbing Skin: no rash Lymphatic: no neck adenopathy Laboratory Tests 10/19/17 04:55: White Blood Count 12.2H, Red Blood Count 2.95L, Hemoglobin 9.3L, Hematocrit 28.8L, Mean Corpuscular Volume 98, Mean Corpuscular Hemoglobin 31.5H, Mean Corpuscular Hemoglobin Concent 32.2, Red Cell Distribution Width 16.4H, Platelet Count 162, Mean Platelet Volume 9.5, Neutrophils (%) (Auto) 71.9, Lymphocytes (%) (Auto) 15.6L, Monocytes (%) (Auto) 9.3, Eosinophils (%) (Auto) 2.1, Basophils (%) (Auto) 1.1, Sodium Level 139, Potassium Level 5.4#H, Chloride Level 106, Carbon Dioxide Level 29, Anion Gap 4L, Blood Urea Nitrogen 19H, Creatinine 0.6, Estimat Glomerular Filtration Rate , Glucose Level 106, Calcium Level 8.2L, Total Bilirubin 2.9H, Direct Bilirubin 2.3H, Aspartate Amino Transf (AST/SGOT) 65H, Alanine Aminotransferase (ALT/SGPT) 58, Alkaline Phosphatase 1627H, Pro-B-Type Natriuretic Peptide 2131H, Total Protein 6.9, Albumin 2.1L, Globulin 4.8, Albumin/Globulin Ratio 0.4L Current Medications Medications (Trade) Dose Ordered Sig/Hermes Route PRN Reason Start Time Stop Time Status Last Admin Dose Admin Acetaminophen (Tylenol) 650 mg Q6H PRN NG Fever/Headache/Mild Pain 10/14/17 17:00 11/10/17 16:59 10/18/17 11:38 Clotrimazole (Lotrimin) 1 applic EVERY 12 HOURS TOPIC 10/14/17 21:00 11/09/17 22:59 10/18/17 21:06 Dextrose (Dextrose 50%) 25 ml STAT PRN IV Hypoglycemia 10/18/17 08:30 11/17/17 08:29 Dextrose (Dextrose 50%) 50 ml STAT PRN IV Hypoglycemia 10/18/17 08:30 11/17/17 08:29 Diltiazem HCl (Cardizem) 30 mg BID NG 10/14/17 18:00 11/10/17 08:59 10/18/17 17:51 Furosemide (Lasix) 40 mg DAILY IV 10/15/17 09:00 11/12/17 08:59 10/18/17 09:07 Insulin Aspart (NovoLOG) Q6HR SUBQ 10/18/17 12:00 11/17/17 11:59 10/19/17 00:51 Ketotifen Fumarate (Zatidor) 1 drop DAILY BOTH EYES 10/15/17 09:00 10/25/17 08:59 10/18/17 09:08 Morphine Sulfate (Morphine Sulfate) 1 mg Q4HR PRN IVP Moderate Pain (Pain Scale 4-6) 10/18/17 18:15 10/25/17 11:44 Morphine Sulfate (Morphine Sulfate) 2 mg Q4H PRN IVP Severe Pain (Pain Scale 7-10) 10/18/17 18:30 10/25/17 18:29 10/19/17 07:42 Pantoprazole (Protonix) 40 mg DAILY IVP 10/15/17 09:00 11/01/17 08:59 10/18/17 09:07 Tayler Liu MD Oct 19, 2017 09:32
[2017-10-19] MEDS: Ketotifen Fumarate 0.035% 5ml BOTH EYES SCH (09:51)
[2017-10-19] MEDS: Pantoprazole Inj IVP SCH (09:52)
[2017-10-19] MEDS: dilTIAZem HCl 30mg tab NG SCH ×2 (09:53→17:37)
[2017-10-19] MEDS: Sodium Polystyrene Sulfonate 15gm Powder GT SCH ×2 (10:20→10:24)
--- NOTE | 2017-10-19 11:58 | Diagnostic Imaging Report ---
Indication: Dyspnea Comparison: 10/16/2017 A single view chest radiograph was obtained. Findings: Reticular interstitial nodular opacities demonstrated throughout the lungs bilaterally unchanged. Heart size is stable. Tracheostomy again noted. IMPRESSION: Interstitial fibrosis suspected. Acute superimposed disease not excludable but no change compared to the prior study.
--- NOTE | 2017-10-19 12:29 | Nephrology Progress Note ---
Assessment/Plan Problem List: (1) ARDS (adult respiratory distress syndrome) (2) Electrolyte imbalance (3) Thrombocytopenia Assessment today K is high (1) ARDS (adult respiratory distress syndrome) s/p Trach (2) Aspiration pneumonia (3) Protein-calorie malnutrition, severe (4) Diabetes mellitus (5) Anemia , aplastic by history (6) DM (7) UTI (8) Electrolyte imbalance (9) HTN (10) Depression (11) RA . Plan stop K supplement stable - had trach and PEG water via NGT Adjust BP meds K and Phos supplement as needed Monitor renal parameters and urine output avoid nephrotoxics per orders discussed with RN Left ventricular ejection fraction estimated to be 55 %. Subjective ROS Limited/Unobtainable: Yes Objective Objective Last 24 Hour Vital Signs Date Time Temp Pulse Resp B/P (MAP) Pulse Ox O2 Delivery O2 Flow Rate FiO2 10/19/17 12:00 40 10/19/17 10:40 104 35 40 10/19/17 09:53 110 135/71 10/19/17 09:06 99 28 40 10/19/17 08:30 98.2 118 26 135/71 99 Mechanical Ventilator 40 98.2 10/19/17 08:00 145 10/19/17 08:00 40 10/19/17 07:29 146 44 40 10/19/17 05:18 91 22 40 10/19/17 04:00 40 10/19/17 04:00 97.7 86 31 125/60 100 Mechanical Ventilator 40 97.7 10/19/17 03:13 97 28 40 10/19/17 02:58 100 10/19/17 01:23 89 21 40 10/19/17 00:00 97.0 85 34 141/65 100 Mechanical Ventilator 40 97.0 10/19/17 00:00 40 10/18/17 23:17 110 10/18/17 23:10 99 36 40 10/18/17 21:28 95 22 40 10/18/17 20:00 97.9 83 25 122/66 100 Mechanical Ventilator 40 97.9 10/18/17 20:00 85 10/18/17 20:00 40 10/18/17 19:44 83 28 40 10/18/17 17:51 101 119/61 10/18/17 17:21 109 35 40 10/18/17 16:00 40 10/18/17 16:00 87 10/18/17 15:57 97.3 95 24 119/61 100 Mechanical Ventilator 40 97.3 10/18/17 15:25 93 26 40 10/18/17 13:24 117 36 40 Intake and Output 10/18/17 10/19/17 19:00 07:00 Intake Total 1197.5 ml 700 ml Output Total 1400 ml 600 ml Balance -202.5 ml 100 ml Free Water 110 ml 100 ml IV Total 427.5 ml Tube Feeding 630 ml 600 ml Other 30 ml Output Urine Total 1400 ml 600 ml # Bowel Movements 2 2 Laboratory Tests 10/19/17 04:55: White Blood Count 12.2H, Red Blood Count 2.95L, Hemoglobin 9.3L, Hematocrit 28.8L, Mean Corpuscular Volume 98, Mean Corpuscular Hemoglobin 31.5H, Mean Corpuscular Hemoglobin Concent 32.2, Red Cell Distribution Width 16.4H, Platelet Count 162, Mean Platelet Volume 9.5, Neutrophils (%) (Auto) 71.9, Lymphocytes (%) (Auto) 15.6L, Monocytes (%) (Auto) 9.3, Eosinophils (%) (Auto) 2.1, Basophils (%) (Auto) 1.1, Sodium Level 139, Potassium Level 5.4#H, Chloride Level 106, Carbon Dioxide Level 29, Anion Gap 4L, Blood Urea Nitrogen 19H, Creatinine 0.6, Estimat Glomerular Filtration Rate , Glucose Level 106, Calcium Level 8.2L, Total Bilirubin 2.9H, Direct Bilirubin 2.3H, Aspartate Amino Transf (AST/SGOT) 65H, Alanine Aminotransferase (ALT/SGPT) 58, Alkaline Phosphatase 1627H, Pro-B-Type Natriuretic Peptide 2131H, Total Protein 6.9, Albumin 2.1L, Globulin 4.8, Albumin/Globulin Ratio 0.4L Height (Feet): 5 Height (Inches): 4.00 Weight (Pounds): 88 General Appearance: no apparent distress Objective no change YAEL HANSEN Oct 19, 2017 12:29
[2017-10-19 12:30] VITALS: BP 107/66
--- NOTE | 2017-10-19 13:25 | Infectious Diseases Prog Note ---
Assessment/Plan Assessment/Plan The patient is a 76-year-old female w Fever, SP Leukocytosis, mild Community-acquired vs healthcare-associated pneumonia, s/p RX (the patient has been recently hospitalized in [facility]). -now ARDS- BAL : Laila an Nl devon , AFB : Neg -CT chest 10/07: Extensive diffuse bilateral pulmonary parenchymal disease, slightly worse than on prior exam of 09/23/2017. Main differential considerations include pneumonia, ARDS, pulmonary edema, among multiple other possibilities. Bilateral moderate to large pleural effusions, slightly increased in size from 09/23/2017. Nasogastric and endotracheal tubes in good position. Evidence of generalized anasarca, with diffuse subcutaneous soft tissue edema. Probable influenza despite of negative influenza screening test, s/p Rx Abnormal liver function tests, ALP>>> AST -2ry to sludged CBD ,cholangitis, obstruction on CBD; AST/ALT , Filiberto ALP improving , -s/p ERCP 10/08: Intraoperative images demonstrate faint opacification of the common bile duct, and placement of a new plastic endobiliary stent. What may be a previous malpositioned biliary stent is seen to the left of the endoscope -CT abd/p 10/07: Anasarca, also previously described, currently similar except for increased size of bilateral pleural fluid described on chest CT. Gallbladder wall edema, probably a manifestation of anasarca, although acute cholecystitis not excludable. Note that similar findings were seen on the previous study, which was followed by a negative HIDA scan. Endometrial biliary stent now present. Mild central intrahepatic biliary ductal dilatation despite this. Low-attenuation areas in the spleen, as described. Equivocal clinically evident previously in retrospect that much more conspicuous currently, probably due to less image artifact on the current study. These are nonspecific, could represent cysts, infarcts, areas of inflammation, much less likely neoplasm. Satisfactory position of nasogastric tube. 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 Nonspecific inflammatory changes surrounding the hips. Right hip region lipoma -s/p ERCP with stent placement 10/01 -EUS 09/30: 1. Dilated common bile duct with lots of sludge in the distal common bile duct, most probably explanation for abnormal liver function tests. 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 Depression. Anemia. Rheumatoid arthritis. History of gastritis. PLAN: monitor pt off of Ab Rx - 10/11 SP Ertapenem #7/7 10/09 SP MIcafungin #10 10/02 SP Amikacin #10 09/30 SP Flagyl #8 09/25 sp Fluconazole #3 (held due to rise ALP) 09/23 SP Meropenem #5, PO Vanco #2 09/21 SP tamiflu #10 -f/u AFB cultures ( BAL) : P -f/u Asp ag, fungitell, Cocci ab, fungal sp cx (called lab on 10/09 for f/u on these tests; was told they are still pending and they will call [facility] for an update). Monitor CBC.; Trend WBC Monitor BMP.; Trend LFTs Monitor chest x-ray -GI, heme onc f/u Subjective Constitutional: Denies: no symptoms, fever, chills, fatigue, anorexia, drenching sweats, other Allergies: Coded Allergies: No Known Allergies (Verified , 11/18/08) Subjective no acute event afebrile Objective Vital Signs Last 24 Hour Vital Signs Date Time Temp Pulse Resp B/P (MAP) Pulse Ox O2 Delivery O2 Flow Rate FiO2 10/19/17 12:00 40 10/19/17 10:40 104 35 40 10/19/17 09:53 110 135/71 10/19/17 09:06 99 28 40 10/19/17 08:30 98.2 118 26 135/71 99 Mechanical Ventilator 40 98.2 10/19/17 08:00 145 10/19/17 08:00 40 10/19/17 07:29 146 44 40 10/19/17 05:18 91 22 40 10/19/17 04:00 40 10/19/17 04:00 97.7 86 31 125/60 100 Mechanical Ventilator 40 97.7 10/19/17 03:13 97 28 40 10/19/17 02:58 100 10/19/17 01:23 89 21 40 10/19/17 00:00 97.0 85 34 141/65 100 Mechanical Ventilator 40 97.0 10/19/17 00:00 40 10/18/17 23:17 110 10/18/17 23:10 99 36 40 10/18/17 21:28 95 22 40 10/18/17 20:00 97.9 83 25 122/66 100 Mechanical Ventilator 40 97.9 10/18/17 20:00 85 10/18/17 20:00 40 10/18/17 19:44 83 28 40 10/18/17 17:51 101 119/61 10/18/17 17:21 109 35 40 10/18/17 16:00 40 10/18/17 16:00 87 10/18/17 15:57 97.3 95 24 119/61 100 Mechanical Ventilator 40 97.3 10/18/17 15:25 93 26 40 Height (Feet): 5 Height (Inches): 4.00 Weight (Pounds): 88 HEENT: anicteric Respiratory/Chest: no accessory muscle use Cardiovascular: regular rhythm Abdomen: non distended Laboratory Tests Test 10/19/17 04:55 White Blood Count 12.2 K/UL (4.8-10.8) H Red Blood Count 2.95 M/UL (4.20-5.40) L Hemoglobin 9.3 G/DL (12.0-16.0) L Hematocrit 28.8 % (37.0-47.0) L Mean Corpuscular Volume 98 FL (80-99) Mean Corpuscular Hemoglobin 31.5 PG (27.0-31.0) H Mean Corpuscular Hemoglobin Concent 32.2 G/DL (32.0-36.0) Red Cell Distribution Width 16.4 % (11.6-14.8) H Platelet Count 162 K/UL (150-450) Mean Platelet Volume 9.5 FL (6.5-10.1) Neutrophils (%) (Auto) 71.9 % (45.0-75.0) Lymphocytes (%) (Auto) 15.6 % (20.0-45.0) L Monocytes (%) (Auto) 9.3 % (1.0-10.0) Eosinophils (%) (Auto) 2.1 % (0.0-3.0) Basophils (%) (Auto) 1.1 % (0.0-2.0) Sodium Level 139 MMOL/L (136-145) Potassium Level 5.4 MMOL/L (3.5-5.1) #H Chloride Level 106 MMOL/L (98-107) Carbon Dioxide Level 29 MMOL/L (21-32) Anion Gap 4 mmol/L (5-15) L Blood Urea Nitrogen 19 mg/dL (7-18) H Creatinine 0.6 MG/DL (0.55-1.30) Estimat Glomerular Filtration Rate mL/min (>60) Glucose Level 106 MG/DL (74-106) Calcium Level 8.2 MG/DL (8.5-10.1) L Total Bilirubin 2.9 MG/DL (0.2-1.0) H Direct Bilirubin 2.3 MG/DL (0.0-0.3) H Aspartate Amino Transf (AST/SGOT) 65 U/L (15-37) H Alanine Aminotransferase (ALT/SGPT) 58 U/L (12-78) Alkaline Phosphatase 1627 U/L (46-116) H Pro-B-Type Natriuretic Peptide 2131 pg/mL (0-125) H Total Protein 6.9 G/DL (6.4-8.2) Albumin 2.1 G/DL (3.4-5.0) L Globulin 4.8 g/dL Albumin/Globulin Ratio 0.4 (1.0-2.7) L Current Medications Medications (Trade) Dose Ordered Sig/Hermes Route PRN Reason Start Time Stop Time Status Last Admin Dose Admin Acetaminophen (Tylenol) 650 mg Q6H PRN NG Fever/Headache/Mild Pain 10/14/17 17:00 11/10/17 16:59 10/18/17 11:38 Clotrimazole (Lotrimin) 1 applic EVERY 12 HOURS TOPIC 10/14/17 21:00 11/09/17 22:59 10/19/17 09:52 Dextrose (Dextrose 50%) 25 ml STAT PRN IV Hypoglycemia 10/18/17 08:30 11/17/17 08:29 Dextrose (Dextrose 50%) 50 ml STAT PRN IV Hypoglycemia 10/18/17 08:30 11/17/17 08:29 Diltiazem HCl (Cardizem) 30 mg BID NG 10/14/17 18:00 11/10/17 08:59 10/19/17 09:53 Furosemide (Lasix) 40 mg DAILY IV 10/15/17 09:00 11/12/17 08:59 10/19/17 09:52 Insulin Aspart (NovoLOG) Q6HR SUBQ 10/18/17 12:00 11/17/17 11:59 10/19/17 12:34 Ketotifen Fumarate (Zatidor) 1 drop DAILY BOTH EYES 10/15/17 09:00 10/25/17 08:59 10/19/17 09:51 Morphine Sulfate (Morphine Sulfate) 1 mg Q4HR PRN IVP Moderate Pain (Pain Scale 4-6) 10/18/17 18:15 10/25/17 11:44 Morphine Sulfate (Morphine Sulfate) 2 mg Q4H PRN IVP Severe Pain (Pain Scale 7-10) 10/18/17 18:30 10/25/17 18:29 10/19/17 07:42 Pantoprazole (Protonix) 40 mg DAILY IVP 10/15/17 09:00 11/01/17 08:59 10/19/17 09:52 Edis Hunter MD Oct 19, 2017 13:25
--- NOTE | 2017-10-19 13:31 | General Progress Note ---
Assessment/Plan Assessment/Plan Assessment - Resp failure / ARDS / PNA - s/p trach - Abnormal LFT, Biliary obstruction - s/p stent - cause of elevated Alk phos unclear - ? biliary sludge, - ? poorly draining stent, - ? intrahepatic cholestasis, - no current suspect drugs at this time but has been on a number of abx associated with cholestasis - ? infiltrative d/o - Jaundice - bili improved - Anemia with OB (+) stools - coagulopathy - improved - Malnutrition - s/p PEG - AMS - improved Recommendations - follow labs - continue TF - Minimize medication use, given LFT changes - transfuse PRN - Elevate HOB - Vent care - Monitor labs - follow LFT - ? repeat ERCP Subjective Allergies: Coded Allergies: No Known Allergies (Verified , 11/18/08) Subjective Above noted tolerating TF awake Objective Last 24 Hour Vital Signs Date Time Temp Pulse Resp B/P (MAP) Pulse Ox O2 Delivery O2 Flow Rate FiO2 10/19/17 12:00 40 10/19/17 10:40 104 35 40 10/19/17 09:53 110 135/71 10/19/17 09:06 99 28 40 10/19/17 08:30 98.2 118 26 135/71 99 Mechanical Ventilator 40 98.2 10/19/17 08:00 145 10/19/17 08:00 40 10/19/17 07:29 146 44 40 10/19/17 05:18 91 22 40 10/19/17 04:00 40 10/19/17 04:00 97.7 86 31 125/60 100 Mechanical Ventilator 40 97.7 10/19/17 03:13 97 28 40 10/19/17 02:58 100 10/19/17 01:23 89 21 40 10/19/17 00:00 97.0 85 34 141/65 100 Mechanical Ventilator 40 97.0 10/19/17 00:00 40 10/18/17 23:17 110 10/18/17 23:10 99 36 40 10/18/17 21:28 95 22 40 10/18/17 20:00 97.9 83 25 122/66 100 Mechanical Ventilator 40 97.9 10/18/17 20:00 85 10/18/17 20:00 40 10/18/17 19:44 83 28 40 10/18/17 17:51 101 119/61 10/18/17 17:21 109 35 40 4/7/18 16:00 40 10/18/17 16:00 87 10/18/17 15:57 97.3 95 24 119/61 100 Mechanical Ventilator 40 97.3 10/18/17 15:25 93 26 40 Intake and Output 10/18/17 10/19/17 19:00 07:00 Intake Total 1197.5 ml 700 ml Output Total 1400 ml 600 ml Balance -202.5 ml 100 ml Free Water 110 ml 100 ml IV Total 427.5 ml Tube Feeding 630 ml 600 ml Other 30 ml Output Urine Total 1400 ml 600 ml # Bowel Movements 2 2 Laboratory Tests 10/19/17 04:55: White Blood Count 12.2H, Red Blood Count 2.95L, Hemoglobin 9.3L, Hematocrit 28.8L, Mean Corpuscular Volume 98, Mean Corpuscular Hemoglobin 31.5H, Mean Corpuscular Hemoglobin Concent 32.2, Red Cell Distribution Width 16.4H, Platelet Count 162, Mean Platelet Volume 9.5, Neutrophils (%) (Auto) 71.9, Lymphocytes (%) (Auto) 15.6L, Monocytes (%) (Auto) 9.3, Eosinophils (%) (Auto) 2.1, Basophils (%) (Auto) 1.1, Sodium Level 139, Potassium Level 5.4#H, Chloride Level 106, Carbon Dioxide Level 29, Anion Gap 4L, Blood Urea Nitrogen 19H, Creatinine 0.6, Estimat Glomerular Filtration Rate , Glucose Level 106, Calcium Level 8.2L, Total Bilirubin 2.9H, Direct Bilirubin 2.3H, Aspartate Amino Transf (AST/SGOT) 65H, Alanine Aminotransferase (ALT/SGPT) 58, Alkaline Phosphatase 1627H, Pro-B-Type Natriuretic Peptide 2131H, Total Protein 6.9, Albumin 2.1L, Globulin 4.8, Albumin/Globulin Ratio 0.4L Height (Feet): 5 Height (Inches): 4.00 Weight (Pounds): 88 Objective WDWN NCAT supple, (+) trach CTA RRR abd soft , (+) GT (+) LE edema opens eyes ARNULFO DURON Oct 19, 2017 13:31
--- NOTE | 2017-10-19 15:51 | Internal Med Progress Note ---
Subjective Date of Service: Oct 19, 2017 Physician Name Sina Bowens Attending Physician Jesus Barahona MD Current Medications Medications (Trade) Dose Ordered Sig/Hermes Route PRN Reason Start Time Stop Time Status Last Admin Dose Admin Acetaminophen (Tylenol) 650 mg Q6H PRN NG Fever/Headache/Mild Pain 10/14/17 17:00 11/10/17 16:59 10/18/17 11:38 Clotrimazole (Lotrimin) 1 applic EVERY 12 HOURS TOPIC 10/14/17 21:00 11/09/17 22:59 10/19/17 09:52 Dextrose (Dextrose 50%) 25 ml STAT PRN IV Hypoglycemia 10/18/17 08:30 11/17/17 08:29 Dextrose (Dextrose 50%) 50 ml STAT PRN IV Hypoglycemia 10/18/17 08:30 11/17/17 08:29 Diltiazem HCl (Cardizem) 30 mg BID NG 10/14/17 18:00 11/10/17 08:59 10/19/17 09:53 Furosemide (Lasix) 40 mg DAILY IV 10/15/17 09:00 11/12/17 08:59 10/19/17 09:52 Insulin Aspart (NovoLOG) Q6HR SUBQ 10/18/17 12:00 11/17/17 11:59 10/19/17 12:34 Ketotifen Fumarate (Zatidor) 1 drop DAILY BOTH EYES 10/15/17 09:00 10/25/17 08:59 10/19/17 09:51 Morphine Sulfate (Morphine Sulfate) 1 mg Q4HR PRN IVP Moderate Pain (Pain Scale 4-6) 10/18/17 18:15 10/25/17 11:44 Morphine Sulfate (Morphine Sulfate) 2 mg Q4H PRN IVP Severe Pain (Pain Scale 7-10) 10/18/17 18:30 10/25/17 18:29 10/19/17 07:42 Pantoprazole (Protonix) 40 mg DAILY IVP 10/15/17 09:00 11/01/17 08:59 10/19/17 09:52 Allergies: Coded Allergies: No Known Allergies (Verified , 11/18/08) ROS Limited/Unobtainable: Yes Subjective 76 YO F admitted with Shortness of breath, now respiratory failure. Intubated and sedated. Cover for Internal Med-Dr. Jun. RAJINDER . S/P ERCP 10/08/17. S/P Tracheostomy and bronchoscopy 10/13/17 Objective Last Vital Signs Date Time Temp Pulse Resp B/P (MAP) Pulse Ox O2 Delivery O2 Flow Rate FiO2 10/19/17 14:54 92 20 40 10/19/17 12:30 98.4 107/66 99 Mechanical Ventilator 98.4 Laboratory Tests Test 10/19/17 04:55 White Blood Count 12.2 K/UL (4.8-10.8) H Red Blood Count 2.95 M/UL (4.20-5.40) L Hemoglobin 9.3 G/DL (12.0-16.0) L Hematocrit 28.8 % (37.0-47.0) L Mean Corpuscular Volume 98 FL (80-99) Mean Corpuscular Hemoglobin 31.5 PG (27.0-31.0) H Mean Corpuscular Hemoglobin Concent 32.2 G/DL (32.0-36.0) Red Cell Distribution Width 16.4 % (11.6-14.8) H Platelet Count 162 K/UL (150-450) Mean Platelet Volume 9.5 FL (6.5-10.1) Neutrophils (%) (Auto) 71.9 % (45.0-75.0) Lymphocytes (%) (Auto) 15.6 % (20.0-45.0) L Monocytes (%) (Auto) 9.3 % (1.0-10.0) Eosinophils (%) (Auto) 2.1 % (0.0-3.0) Basophils (%) (Auto) 1.1 % (0.0-2.0) Sodium Level 139 MMOL/L (136-145) Potassium Level 5.4 MMOL/L (3.5-5.1) #H Chloride Level 106 MMOL/L (98-107) Carbon Dioxide Level 29 MMOL/L (21-32) Anion Gap 4 mmol/L (5-15) L Blood Urea Nitrogen 19 mg/dL (7-18) H Creatinine 0.6 MG/DL (0.55-1.30) Estimat Glomerular Filtration Rate mL/min (>60) Glucose Level 106 MG/DL (74-106) Calcium Level 8.2 MG/DL (8.5-10.1) L Total Bilirubin 2.9 MG/DL (0.2-1.0) H Direct Bilirubin 2.3 MG/DL (0.0-0.3) H Aspartate Amino Transf (AST/SGOT) 65 U/L (15-37) H Alanine Aminotransferase (ALT/SGPT) 58 U/L (12-78) Alkaline Phosphatase 1627 U/L (46-116) H Pro-B-Type Natriuretic Peptide 2131 pg/mL (0-125) H Total Protein 6.9 G/DL (6.4-8.2) Albumin 2.1 G/DL (3.4-5.0) L Globulin 4.8 g/dL Albumin/Globulin Ratio 0.4 (1.0-2.7) L Intake and Output 10/18/17 10/19/17 19:00 07:00 Intake Total 1197.5 ml 700 ml Output Total 1400 ml 600 ml Balance -202.5 ml 100 ml Free Water 110 ml 100 ml IV Total 427.5 ml Tube Feeding 630 ml 600 ml Other 30 ml Output Urine Total 1400 ml 600 ml # Bowel Movements 2 2 Objective General Appearance: lethargic, thin EENT: normal ENT inspection Neck: Trach; non-tender, normal alignment, supple Cardiovascular: normal peripheral pulses, normal rate, regular rhythm, no gallop/murmur, no JVD Respiratory/Chest: Mechanical vent; trach; ; respiratory distress, crackles/ rales, rhonchi - bilaterally, expiratory wheezing Abdomen: normal bowel sounds, non tender, soft, no organomegaly, no mass Skin: normal pigmentation, warm/dry Assessment/Plan Problem List: (1) HTN (hypertension) Assessment & Plan: Currently hypotensive. (2) Arthritis, rheumatoid (3) Parkinsons disease (4) Aplastic anemia (5) GERD (gastroesophageal reflux disease) (6) Respiratory failure Assessment & Plan: S/P Tracheostomy and broncholsopy 10/13/17. Cont vent per pulmonary (7) Pneumonia (8) Dyspnea (9) Sepsis Assessment & Plan: Blood culture neg. Continue Amikacin, micafungin and flagyl per ID (10) ARDS (adult respiratory distress syndrome) Assessment & Plan: See pulmonary note (11) UTI (urinary tract infection) Assessment & Plan: E.Coli. Continue abx per ID (12) Anemia Assessment & Plan: S/P Transfusion 4 units PRBC (13) Diabetes mellitus, type II Assessment & Plan: Continue novolog sliding scale (14) Leukocytosis Assessment & Plan: Worsening. See ID note. Start amikacin and fluconazole (15) Thrombocytopenia (16) Gallbladder sludge Assessment & Plan: s/P ERCP 10/01, 10/07/17 and 10/08/17 (17) Coagulopathy Assessment & Plan: S/P FFP and Vit K Assessment/Plan Discharge planning SINA BOWENS Oct 19, 2017 15:51
[2017-10-19 16:30] VITALS: BP 102/56
[2017-10-19 20:00] VITALS: BP 108/57
--- NOTE | 2017-10-19 23:19 | General Progress Note ---
Assessment/Plan Assessment/Plan #. Anemia due to underlying chronic disease. Continue to closely monitor. --> Hemoglobin goal is above 7. --> S/P blood transfusion as hemoglobin levels fell low. --> Occult blood detected. Consider GI recs. --> Transfuse as necessary --> Blood transfusion not required unless symptomatic or hgb below goal. #. Pancytopenia --> WBC count and platelet counts are within normal levels now. --> Hemoglobin levels downtrended. Transfuse if continues to drop. --> S/P Platelet transfusion --> Monitor and trend cbc daily. #. Coagulopathy - potentially related to DIC early onset, review hapto, inr repeat, fibrinogen, DIC panel --> administer FFP 4 units and vitamin k repeat prior to procedure --> DW pulm Dr. Parekh --> Likely related to infection versus other cause. On antibiotics. #. Sepsis. --> Leukocytosis likely related to underlying pneumonia infection. --> Resolved on antibiotic treatment. #. Thrombocytopenia, severe and progressive, acute onset, likely secondary to underlying infection, aspiration, hit was negative --> Duplex of the lower extremities is negative, therefore less likely HIT and other causes are more likely such as underlying infection. --> Platelets goal >20k, transfuse if necessary. --> On antibiotics as per ID --> Platelet count has been downtrending, monitor closely. #. Respiratory failure, vent dependent --> ARDS --> S/P tracheostomy #. Community-acquired pneumonia versus hospital-acquired. --> The patient on broad-spectrum antibiotics. --> Improved. --> Urine culture growing E. coli. Continue to closely monitor. #. Transaminitis. She has been seen by GI Service. Continue to closely monitor. #. Low-grade fever. Closely observe. #. Encephalopathy. Parkinson's Disease. #. Diabetes mellitus II. Subjective Date patient seen: Oct 18, 2017 Constitutional: Denies: no symptoms, chills, diaphoresis, fever, malaise, weakness, other HEENT: Denies: no symptoms, eye pain, blurred vision, tearing, double vision, ear pain, ear discharge, nose pain, nose congestion, throat pain, throat swelling, mouth pain, mouth swelling, other Cardiovascular: Denies: no symptoms, chest pain, edema, irregular heart rate, lightheadedness, palpitations, syncope, other Respiratory: Denies: no symptoms, cough, orthopnea, shortness of breath, SOB with excertion, SOB at rest, sputum, stridor, wheezing, other Gastrointestinal/Abdominal: Denies: no symptoms, abdomen distended, abdominal pain, black stools, tarry stools, blood in stool, constipated, diarrhea, difficulty swallowing, nausea, poor appetite, poor fluid intake, rectal bleeding , vomiting, other Genitourinary: Denies: no symptoms, burning, discharge, frequency, flank pain, hematuria, incontinence, pain, urgency, other 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: Denies: no symptoms, anxiety, depressed, emotional problems, headache, numbness, paresthesia, pre-existing deficit, seizure, tingling, tremors, weakness, other Hematologic/Lymphatic: Reports: anemia Allergies: Coded Allergies: No Known Allergies (Verified , 11/18/08) Subjective Remains confused. On antibiotic treatment. On vent. Objective Last 24 Hour Vital Signs Date Time Temp Pulse Resp B/P (MAP) Pulse Ox O2 Delivery O2 Flow Rate FiO2 10/19/17 22:55 89 18 40 10/19/17 22:08 90 18 40 10/19/17 20:00 98.4 87 20 108/57 100 Mechanical Ventilator 40 98.4 10/19/17 20:00 40 10/19/17 19:37 81 10/19/17 18:48 83 19 40 10/19/17 17:37 89 102/56 10/19/17 16:47 94 18 40 10/19/17 16:44 90 10/19/17 16:30 98.4 89 20 102/56 99 Mechanical Ventilator 40 98.4 10/19/17 16:00 40 10/19/17 14:54 92 20 40 10/19/17 13:24 95 23 40 10/19/17 12:30 98.4 100 24 107/66 99 Mechanical Ventilator 40 98.4 10/19/17 12:00 40 10/19/17 11:49 91 10/19/17 10:40 104 35 40 10/19/17 09:53 110 135/71 10/19/17 09:06 99 28 40 10/19/17 08:30 98.2 118 26 135/71 99 Mechanical Ventilator 40 98.2 10/19/17 08:00 145 10/19/17 08:00 40 10/19/17 07:29 146 44 40 10/19/17 05:18 91 22 40 10/19/17 04:00 40 10/19/17 04:00 97.7 86 31 125/60 100 Mechanical Ventilator 40 97.7 10/19/17 03:13 97 28 40 10/19/17 02:58 100 10/19/17 01:23 89 21 40 10/19/17 00:00 97.0 85 34 141/65 100 Mechanical Ventilator 40 97.0 10/19/17 00:00 40 10/18/17 23:17 110 Intake and Output 10/18/17 10/19/17 19:00 07:00 Intake Total 1197.5 ml 700 ml Output Total 1400 ml 600 ml Balance -202.5 ml 100 ml Free Water 110 ml 100 ml IV Total 427.5 ml Tube Feeding 630 ml 600 ml Other 30 ml Output Urine Total 1400 ml 600 ml # Bowel Movements 2 2 Laboratory Tests 10/19/17 04:55: White Blood Count 12.2H, Red Blood Count 2.95L, Hemoglobin 9.3L, Hematocrit 28.8L, Mean Corpuscular Volume 98, Mean Corpuscular Hemoglobin 31.5H, Mean Corpuscular Hemoglobin Concent 32.2, Red Cell Distribution Width 16.4H, Platelet Count 162, Mean Platelet Volume 9.5, Neutrophils (%) (Auto) 71.9, Lymphocytes (%) (Auto) 15.6L, Monocytes (%) (Auto) 9.3, Eosinophils (%) (Auto) 2.1, Basophils (%) (Auto) 1.1, Sodium Level 139, Potassium Level 5.4#H, Chloride Level 106, Carbon Dioxide Level 29, Anion Gap 4L, Blood Urea Nitrogen 19H, Creatinine 0.6, Estimat Glomerular Filtration Rate , Glucose Level 106, Calcium Level 8.2L, Total Bilirubin 2.9H, Direct Bilirubin 2.3H, Aspartate Amino Transf (AST/SGOT) 65H, Alanine Aminotransferase (ALT/SGPT) 58, Alkaline Phosphatase 1627H, Pro-B-Type Natriuretic Peptide 2131H, Total Protein 6.9, Albumin 2.1L, Globulin 4.8, Albumin/Globulin Ratio 0.4L Height (Feet): 5 Height (Inches): 4.00 Weight (Pounds): 88 General Appearance: confused Respiratory/Chest: decreased breath sounds Johnny Sinha MD Oct 19, 2017 23:19
[2017-10-20] VITALS: BP 115/61
--- NOTE | 2017-10-20 01:57 | General Progress Note ---
Assessment/Plan Assessment/Plan #. Coagulopathy - potentially related to DIC early onset, review hapto, inr repeat, fibrinogen, DIC panel --> administer FFP 4 units and vitamin k repeat prior to procedure --> DW pulm Dr. Parekh --> Likely related to infection versus other cause. On antibiotics. --> Prophylaxis. #. Anemia due to underlying chronic disease. Continue to closely monitor. --> Hemoglobin goal is above 7. --> S/P blood transfusion as hemoglobin levels fell low. --> Occult blood detected. Consider GI recs. --> Transfuse as necessary --> Blood transfusion not required unless symptomatic or hgb below goal. #. Pancytopenia --> WBC count and platelet counts are within normal levels now. --> Hemoglobin levels downtrended. Transfuse if continues to drop. --> S/P Platelet transfusion --> Monitor and trend cbc daily. #. Sepsis. --> Leukocytosis likely related to underlying pneumonia infection. --> Resolved on antibiotic treatment. #. Thrombocytopenia, severe and progressive, acute onset, likely secondary to underlying infection, aspiration, hit was negative --> Duplex of the lower extremities is negative, therefore less likely HIT and other causes are more likely such as underlying infection. --> Platelets goal >20k, transfuse if necessary. --> On antibiotics as per ID --> Platelet count has been downtrending, monitor closely. #. Respiratory failure, vent dependent --> acute respiratory distress syndrome. --> S/P tracheostomy #. Community-acquired pneumonia versus hospital-acquired. --> The patient on broad-spectrum antibiotics. --> Improved. --> Urine culture growing E. coli. Continue to closely monitor. #. Transaminitis. She has been seen by GI Service. Continue to closely monitor. #. Low-grade fever. Closely observe. #. Encephalopathy. Parkinson's Disease. #. Diabetes mellitus II. #. Tube feeding. Subjective Date patient seen: Oct 19, 2017 Constitutional: Denies: no symptoms, chills, diaphoresis, fever, malaise, weakness, other HEENT: Denies: no symptoms, eye pain, blurred vision, tearing, double vision, ear pain, ear discharge, nose pain, nose congestion, throat pain, throat swelling, mouth pain, mouth swelling, other Cardiovascular: Denies: no symptoms, chest pain, edema, irregular heart rate, lightheadedness, palpitations, syncope, other Respiratory: Denies: no symptoms, cough, orthopnea, shortness of breath, SOB with excertion, SOB at rest, sputum, stridor, wheezing, other Gastrointestinal/Abdominal: Denies: no symptoms, abdomen distended, abdominal pain, black stools, tarry stools, blood in stool, constipated, diarrhea, difficulty swallowing, nausea, poor appetite, poor fluid intake, rectal bleeding , vomiting, other Genitourinary: Denies: no symptoms, burning, discharge, frequency, flank pain, hematuria, incontinence, pain, urgency, other 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: Denies: no symptoms, anxiety, depressed, emotional problems, headache, numbness, paresthesia, pre-existing deficit, seizure, tingling, tremors, weakness, other Endocrine: Denies: no symptoms, excessive sweating, flushing, intolerance to cold, intolerance to heat, increased hunger, increased thirst, increased urine, unexplained weight gain, unexplained weight loss, other Hematologic/Lymphatic: Reports: anemia Allergies: Coded Allergies: No Known Allergies (Verified , 11/18/08) Subjective Remains confused. On tube feeding. Sob improved. Objective Last 24 Hour Vital Signs Date Time Temp Pulse Resp B/P (MAP) Pulse Ox O2 Delivery O2 Flow Rate FiO2 10/20/17 00:44 72 18 40 10/20/17 00:00 98.0 77 18 115/61 100 Mechanical Ventilator 40 98.0 10/19/17 23:51 81 10/19/17 22:55 89 18 40 10/19/17 22:08 90 18 40 10/19/17 20:00 98.4 87 20 108/57 100 Mechanical Ventilator 40 98.4 10/19/17 20:00 40 10/19/17 19:37 81 10/19/17 18:48 83 19 40 10/19/17 17:37 89 102/56 10/19/17 16:47 94 18 40 10/19/17 16:44 90 10/19/17 16:30 98.4 89 20 102/56 99 Mechanical Ventilator 40 98.4 10/19/17 16:00 40 10/19/17 14:54 92 20 40 10/19/17 13:24 95 23 40 10/19/17 12:30 98.4 100 24 107/66 99 Mechanical Ventilator 40 98.4 10/19/17 12:00 40 10/19/17 11:49 91 10/19/17 10:40 104 35 40 10/19/17 09:53 110 135/71 10/19/17 09:06 99 28 40 10/19/17 08:30 98.2 118 26 135/71 99 Mechanical Ventilator 40 98.2 10/19/17 08:00 145 10/19/17 08:00 40 10/19/17 07:29 146 44 40 10/19/17 05:18 91 22 40 10/19/17 04:00 40 10/19/17 04:00 97.7 86 31 125/60 100 Mechanical Ventilator 40 97.7 10/19/17 03:13 97 28 40 10/19/17 02:58 100 Intake and Output 10/19/17 10/20/17 19:00 07:00 Intake Total 750 ml 250 ml Output Total 1700 ml Balance -950 ml 250 ml Free Water 200 ml 50 ml Tube Feeding 550 ml 200 ml Output Urine Total 1700 ml Laboratory Tests 10/19/17 04:55: White Blood Count 12.2H, Red Blood Count 2.95L, Hemoglobin 9.3L, Hematocrit 28.8L, Mean Corpuscular Volume 98, Mean Corpuscular Hemoglobin 31.5H, Mean Corpuscular Hemoglobin Concent 32.2, Red Cell Distribution Width 16.4H, Platelet Count 162, Mean Platelet Volume 9.5, Neutrophils (%) (Auto) 71.9, Lymphocytes (%) (Auto) 15.6L, Monocytes (%) (Auto) 9.3, Eosinophils (%) (Auto) 2.1, Basophils (%) (Auto) 1.1, Sodium Level 139, Potassium Level 5.4#H, Chloride Level 106, Carbon Dioxide Level 29, Anion Gap 4L, Blood Urea Nitrogen 19H, Creatinine 0.6, Estimat Glomerular Filtration Rate , Glucose Level 106, Calcium Level 8.2L, Total Bilirubin 2.9H, Direct Bilirubin 2.3H, Aspartate Amino Transf (AST/SGOT) 65H, Alanine Aminotransferase (ALT/SGPT) 58, Alkaline Phosphatase 1627H, Pro-B-Type Natriuretic Peptide 2131H, Total Protein 6.9, Albumin 2.1L, Globulin 4.8, Albumin/Globulin Ratio 0.4L Height (Feet): 5 Height (Inches): 4.00 Weight (Pounds): 88 General Appearance: confused Respiratory/Chest: decreased breath sounds Johnny Sinha MD Oct 20, 2017 01:57
[2017-10-20 04:00] VITALS: BP 137/69
[2017-10-20 04:19] LABS: EOSINOPHILS % (AUTO) 2.5 % (0.0-3.0); HEMATOCRIT 28.6 % (37.0-47.0); HEMOGLOBIN 9.1 G/DL (12.0-16.0); LYMPHOCYTES % (AUTO) 17.7 % (20.0-45.0); MEAN CORPUSCULAR VOLUME 97 FL (80-99); MONOCYTES % (AUTO) 8.2 % (1.0-10.0); NEUTROPHILS % (AUTO) 70.5 % (45.0-75.0); PLATELET COUNT 160 K/UL (150-450); RED BLOOD COUNT 2.94 M/UL (4.20-5.40); RED CELL DISTRIBUTION WIDTH 15.6 % (11.6-14.8)
[2017-10-20 04:44] LABS: ALANINE AMINOTRANSFERASE 48 U/L (12-78); ALBUMIN 2.1 G/DL (3.4-5.0); ALBUMIN/GLOBULIN RATIO 0.4 (1.0-2.7); ALKALINE PHOSPHATASE 1452 U/L (46-116); ANION GAP 3 mmol/L (5-15); ASPARTATE AMINO TRANSFERASE 51 U/L (15-37); BILIRUBIN,TOTAL 2.7 MG/DL (0.2-1.0); BLOOD UREA NITROGEN 22 mg/dL (7-18); CALCIUM 8.6 MG/DL (8.5-10.1); CARBON DIOXIDE 34 MMOL/L (21-32); CHLORIDE 101 MMOL/L (98-107); CREATININE 0.7 MG/DL (0.55-1.30); POTASSIUM 4.9 MMOL/L (3.5-5.1); SODIUM 138 MMOL/L (136-145)
[2017-10-20 04:56] LABS: BILIRUBIN,DIRECT 2.3 MG/DL (0.0-0.3)
[2017-10-20] MEDS: NovoLOG Insulin Flexpen SUBQ SCH ×4 (05:47→23:53)
[2017-10-20 08:29] VITALS: BP 142/69
[2017-10-20] MEDS: Ketotifen Fumarate 0.035% 5ml BOTH EYES SCH (08:32)
[2017-10-20] MEDS: Pantoprazole Inj IVP SCH (08:33)
[2017-10-20] MEDS: dilTIAZem HCl 30mg tab NG SCH ×2 (08:50→17:30)
[2017-10-20] MEDS: Morphine Sulfate 4mg/ml Inj IVP PRN (09:07)
--- NOTE | 2017-10-20 10:35 | Cardiac Electrophysiology PN ---
Assessment/Plan Assessment/Plan 1. Vent dependent Respiratory failure, due to underlying ARDS , pneumonia. Ruled out for myocardial infarction. S/P Tracheostomy with some oozing. Dr. Mota to follow. 2. Left bundle-branch block. No evidence of more advanced heart block. 3. HTN and diastolic dysfunction. Echo EF 55% On Cardizem 30 BID and Lasix 40 iv daily that will change to po. 4. Hypernatremia and Azotemia. F/U per Dr. Mayer 5. Pneumonia and sepsis on IV antibiotics by Dr. Hunter. 6. Psychiatric disorder. 7. Anasarca. 3rd spacing. 8. Anemia with Hb 6.6 s/p PRBC. CT chest abdomen and pelvis without contrast no acute finding S/P EGD by Dr Walton. S/P PEG 10/16/17 9. Severe thrombocytopenia. S/P platelet transfusion 10. Abnormal LFT, Biliary obstruction, possible cholangitis. S/P ERCP. CBD sludge. S/P repeat ERCP and stent by Dr. Walton Bilirubin down to 4 11. High INR likely due to hepatic failure. S/P FFP and Vit K. INR 1 DW RN Subjective Subjective No SVT or VT. Still has oozing around the trach site Objective Last 24 Hour Vital Signs Date Time Temp Pulse Resp B/P (MAP) Pulse Ox O2 Delivery O2 Flow Rate FiO2 10/20/17 09:11 84 22 40 10/20/17 08:50 89 142/69 10/20/17 08:29 98.0 89 26 142/69 100 Mechanical Ventilator 40 98.0 10/20/17 08:00 40 10/20/17 07:24 104 10/20/17 06:55 83 20 40 10/20/17 05:16 86 19 40 10/20/17 04:03 78 10/20/17 04:00 40 10/20/17 04:00 98.1 81 22 137/69 100 Mechanical Ventilator 40 98.1 10/20/17 02:46 74 18 40 10/20/17 00:44 72 18 40 10/20/17 00:00 98.0 77 18 115/61 100 Mechanical Ventilator 40 98.0 10/19/17 23:51 81 10/19/17 22:55 89 18 40 10/19/17 22:08 90 18 40 10/19/17 20:00 98.4 87 20 108/57 100 Mechanical Ventilator 40 98.4 10/19/17 20:00 40 10/19/17 19:37 81 10/19/17 18:48 83 19 40 10/19/17 17:37 89 102/56 10/19/17 16:47 94 18 40 10/19/17 16:44 90 10/19/17 16:30 98.4 89 20 102/56 99 Mechanical Ventilator 40 98.4 10/19/17 16:00 40 10/19/17 14:54 92 20 40 10/19/17 13:24 95 23 40 10/19/17 12:30 98.4 100 24 107/66 99 Mechanical Ventilator 40 98.4 10/19/17 12:00 40 10/19/17 11:49 91 10/19/17 10:40 104 35 40 Intake and Output 10/19/17 10/20/17 19:00 07:00 Intake Total 750 ml 750 ml Output Total 1700 ml 350 ml Balance -950 ml 400 ml Free Water 200 ml 150 ml Tube Feeding 550 ml 600 ml Output Urine Total 1700 ml 350 ml Laboratory Tests Test 10/20/17 03:30 White Blood Count 13.0 K/UL (4.8-10.8) H Red Blood Count 2.94 M/UL (4.20-5.40) L Hemoglobin 9.1 G/DL (12.0-16.0) L Hematocrit 28.6 % (37.0-47.0) L Mean Corpuscular Volume 97 FL (80-99) Mean Corpuscular Hemoglobin 31.0 PG (27.0-31.0) Mean Corpuscular Hemoglobin Concent 31.9 G/DL (32.0-36.0) L Red Cell Distribution Width 15.6 % (11.6-14.8) H Platelet Count 160 K/UL (150-450) Mean Platelet Volume 8.8 FL (6.5-10.1) Neutrophils (%) (Auto) 70.5 % (45.0-75.0) Lymphocytes (%) (Auto) 17.7 % (20.0-45.0) L Monocytes (%) (Auto) 8.2 % (1.0-10.0) Eosinophils (%) (Auto) 2.5 % (0.0-3.0) Basophils (%) (Auto) 1.0 % (0.0-2.0) Sodium Level 138 MMOL/L (136-145) Potassium Level 4.9 MMOL/L (3.5-5.1) Chloride Level 101 MMOL/L (98-107) Carbon Dioxide Level 34 MMOL/L (21-32) H Anion Gap 3 mmol/L (5-15) L Blood Urea Nitrogen 22 mg/dL (7-18) H Creatinine 0.7 MG/DL (0.55-1.30) Estimat Glomerular Filtration Rate mL/min (>60) Glucose Level 130 MG/DL (74-106) H Calcium Level 8.6 MG/DL (8.5-10.1) Total Bilirubin 2.7 MG/DL (0.2-1.0) H Direct Bilirubin 2.3 MG/DL (0.0-0.3) H Aspartate Amino Transf (AST/SGOT) 51 U/L (15-37) H Alanine Aminotransferase (ALT/SGPT) 48 U/L (12-78) Alkaline Phosphatase 1452 U/L (46-116) H Pro-B-Type Natriuretic Peptide 2119 pg/mL (0-125) H Total Protein 7.2 G/DL (6.4-8.2) Albumin 2.1 G/DL (3.4-5.0) L Globulin 5.1 g/dL Albumin/Globulin Ratio 0.4 (1.0-2.7) L Objective HEAD AND NECK: Tracheostomy in place with slight oozing LUNGS: Coarse rhonchi bilaterally CARDIOVASCULAR: Tachy S1 and S2.No murmur ABDOMEN: Soft.PEG in place EXTREMITIES: No edema. Charlie Darnell MD Oct 20, 2017 10:35
--- NOTE | 2017-10-20 10:49 | Pulmonology Progress Note ---
Assessment/Plan Problems: (1) ARDS (adult respiratory distress syndrome) (2) Sepsis (3) Aspiration pneumonia (4) Parkinsons disease (5) Protein-calorie malnutrition, severe (6) Diabetes mellitus, type II Respiratory: monitor respiratory rate, adjust FIO2 Cardiac: continue to monitor HR/BP Renal: F/U I&O Infectious Disease: check cultures Gastrointestinal: continue feedings/current rate Endocrine: monitor blood sugar, check HgA1C Hematologic: transfuse if hgb<8.5 Neurologic: PRN Morphine, keep patient comfortable Affect: PRN ativan Prophylaxis: Heparin Subjective ROS Limited/Unobtainable: No HEENT: Repors: no symptoms Respiratory: Reports: no symptoms Allergies: Coded Allergies: No Known Allergies (Verified , 11/18/08) Objective Last 24 Hour Vital Signs Date Time Temp Pulse Resp B/P (MAP) Pulse Ox O2 Delivery O2 Flow Rate FiO2 10/20/17 09:11 84 22 40 10/20/17 08:50 89 142/69 10/20/17 08:29 98.0 89 26 142/69 100 Mechanical Ventilator 40 98.0 10/20/17 08:00 40 10/20/17 07:24 104 10/20/17 06:55 83 20 40 10/20/17 05:16 86 19 40 10/20/17 04:03 78 10/20/17 04:00 40 10/20/17 04:00 98.1 81 22 137/69 100 Mechanical Ventilator 40 98.1 10/20/17 02:46 74 18 40 10/20/17 00:44 72 18 40 10/20/17 00:00 98.0 77 18 115/61 100 Mechanical Ventilator 40 98.0 10/19/17 23:51 81 10/19/17 22:55 89 18 40 10/19/17 22:08 90 18 40 10/19/17 20:00 98.4 87 20 108/57 100 Mechanical Ventilator 40 98.4 10/19/17 20:00 40 10/19/17 19:37 81 10/19/17 18:48 83 19 40 10/19/17 17:37 89 102/56 10/19/17 16:47 94 18 40 10/19/17 16:44 90 10/19/17 16:30 98.4 89 20 102/56 99 Mechanical Ventilator 40 98.4 10/19/17 16:00 40 10/19/17 14:54 92 20 40 10/19/17 13:24 95 23 40 10/19/17 12:30 98.4 100 24 107/66 99 Mechanical Ventilator 40 98.4 10/19/17 12:00 40 10/19/17 11:49 91 Intake and Output 10/19/17 10/20/17 19:00 07:00 Intake Total 750 ml 750 ml Output Total 1700 ml 350 ml Balance -950 ml 400 ml Free Water 200 ml 150 ml Tube Feeding 550 ml 600 ml Output Urine Total 1700 ml 350 ml General Appearance: cachetic HEENT: status post trach Respiratory/Chest: chest wall non-tender, crackles/rales Cardiovascular: normal peripheral pulses, regularly irregular Abdomen: normal bowel sounds, no organomegaly, no scars Extremities: no clubbing Skin: no rash Laboratory Tests 10/20/17 03:30: White Blood Count 13.0H, Red Blood Count 2.94L, Hemoglobin 9.1L, Hematocrit 28.6L, Mean Corpuscular Volume 97, Mean Corpuscular Hemoglobin 31.0, Mean Corpuscular Hemoglobin Concent 31.9L, Red Cell Distribution Width 15.6H, Platelet Count 160, Mean Platelet Volume 8.8, Neutrophils (%) (Auto) 70.5, Lymphocytes (%) (Auto) 17.7L, Monocytes (%) (Auto) 8.2, Eosinophils (%) (Auto) 2.5, Basophils (%) (Auto) 1.0, Sodium Level 138, Potassium Level 4.9, Chloride Level 101, Carbon Dioxide Level 34H, Anion Gap 3L, Blood Urea Nitrogen 22H, Creatinine 0.7, Estimat Glomerular Filtration Rate , Glucose Level 130H, Calcium Level 8.6, Total Bilirubin 2.7H, Direct Bilirubin 2.3H, Aspartate Amino Transf (AST/SGOT) 51H, Alanine Aminotransferase (ALT/SGPT) 48, Alkaline Phosphatase 1452H, Pro-B-Type Natriuretic Peptide 2119H, Total Protein 7.2, Albumin 2.1L, Globulin 5.1, Albumin/Globulin Ratio 0.4L Current Medications Medications (Trade) Dose Ordered Sig/Hermes Route PRN Reason Start Time Stop Time Status Last Admin Dose Admin Acetaminophen (Tylenol) 650 mg Q6H PRN NG Fever/Headache/Mild Pain 10/14/17 17:00 11/10/17 16:59 10/18/17 11:38 Clotrimazole (Lotrimin) 1 applic EVERY 12 HOURS TOPIC 10/14/17 21:00 11/09/17 22:59 10/20/17 08:33 Dextrose (Dextrose 50%) 25 ml STAT PRN IV Hypoglycemia 10/18/17 08:30 11/17/17 08:29 Dextrose (Dextrose 50%) 50 ml STAT PRN IV Hypoglycemia 10/18/17 08:30 11/17/17 08:29 Diltiazem HCl (Cardizem) 30 mg BID NG 10/14/17 18:00 11/10/17 08:59 10/20/17 08:50 Furosemide (Lasix) 40 mg DAILY IV 10/15/17 09:00 11/12/17 08:59 10/20/17 08:33 Insulin Aspart (NovoLOG) Q6HR SUBQ 10/18/17 12:00 11/17/17 11:59 10/20/17 05:47 Ketotifen Fumarate (Zatidor) 1 drop DAILY BOTH EYES 10/15/17 09:00 10/25/17 08:59 10/20/17 08:32 Morphine Sulfate (Morphine Sulfate) 1 mg Q4HR PRN IVP Moderate Pain (Pain Scale 4-6) 10/18/17 18:15 10/25/17 11:44 Morphine Sulfate (Morphine Sulfate) 2 mg Q4H PRN IVP Severe Pain (Pain Scale 7-10) 10/18/17 18:30 10/25/17 18:29 10/20/17 09:07 Pantoprazole (Protonix) 40 mg DAILY IVP 10/15/17 09:00 11/01/17 08:59 10/20/17 08:33 Tayler Liu MD Oct 20, 2017 10:49
--- NOTE | 2017-10-20 10:57 | Diagnostic Imaging Report ---
Indication: Dyspnea Comparison: 10/19/2017 A single view chest radiograph was obtained. Findings: Evidence of interstitial pulmonary edema moderate degree. Tracheostomy noted. There may be underlying interstitial fibrosis as well. IMPRESSION: No change from the prior day
--- NOTE | 2017-10-20 11:01 | General Progress Note ---
Progress Note Progress Note Surgery: doing well. no acute events. has NOT had bleeding from trach site in 72+hrs. trach site clean and dry. dressing clean. okay to d/c from surgical standpoint Adryan Echevarria Oct 20, 2017 11:01
[2017-10-20 12:00] VITALS: BP 123/64
--- NOTE | 2017-10-20 12:41 | General Progress Note ---
Assessment/Plan Assessment/Plan Assessment - Resp failure / ARDS / PNA - s/p trach - Abnormal LFT, Biliary obstruction - s/p stent - cause of elevated Alk phos unclear - ? biliary sludge, - ? poorly draining stent, - ? intrahepatic cholestasis, - no current suspect drugs at this time but has been on a number of abx associated with cholestasis - ? infiltrative d/o - Jaundice - bili improved - Anemia with OB (+) stools - coagulopathy - improved - Malnutrition - s/p PEG - AMS - improved - CMV PCR (+) Recommendations - follow labs - continue TF - Minimize medication use, given LFT changes - transfuse PRN - Elevate HOB - Vent care - Monitor labs - follow LFT - Repeat ERCP Friday this week - will d/w family Subjective Allergies: Coded Allergies: No Known Allergies (Verified , 11/18/08) Subjective Above noted tolerating TF awake d/w RN LFT still high WBC higher today Objective Last 24 Hour Vital Signs Date Time Temp Pulse Resp B/P (MAP) Pulse Ox O2 Delivery O2 Flow Rate FiO2 10/20/17 11:25 86 21 40 10/20/17 09:11 84 22 40 10/20/17 08:50 89 142/69 10/20/17 08:29 98.0 89 26 142/69 100 Mechanical Ventilator 40 98.0 10/20/17 08:00 40 10/20/17 07:24 104 10/20/17 06:55 83 20 40 10/20/17 05:16 86 19 40 10/20/17 04:03 78 10/20/17 04:00 40 10/20/17 04:00 98.1 81 22 137/69 100 Mechanical Ventilator 40 98.1 10/20/17 02:46 74 18 40 10/20/17 00:44 72 18 40 10/20/17 00:00 98.0 77 18 115/61 100 Mechanical Ventilator 40 98.0 10/19/17 23:51 81 10/19/17 22:55 89 18 40 10/19/17 22:08 90 18 40 10/19/17 20:00 98.4 87 20 108/57 100 Mechanical Ventilator 40 98.4 10/19/17 20:00 40 10/19/17 19:37 81 10/19/17 18:48 83 19 40 10/19/17 17:37 89 102/56 10/19/17 16:47 94 18 40 10/19/17 16:44 90 10/19/17 16:30 98.4 89 20 102/56 99 Mechanical Ventilator 40 98.4 10/19/17 16:00 40 10/19/17 14:54 92 20 40 10/19/17 13:24 95 23 40 Intake and Output 10/19/17 10/20/17 19:00 07:00 Intake Total 750 ml 750 ml Output Total 1700 ml 350 ml Balance -950 ml 400 ml Free Water 200 ml 150 ml Tube Feeding 550 ml 600 ml Output Urine Total 1700 ml 350 ml Laboratory Tests 10/20/17 03:30: White Blood Count 13.0H, Red Blood Count 2.94L, Hemoglobin 9.1L, Hematocrit 28.6L, Mean Corpuscular Volume 97, Mean Corpuscular Hemoglobin 31.0, Mean Corpuscular Hemoglobin Concent 31.9L, Red Cell Distribution Width 15.6H, Platelet Count 160, Mean Platelet Volume 8.8, Neutrophils (%) (Auto) 70.5, Lymphocytes (%) (Auto) 17.7L, Monocytes (%) (Auto) 8.2, Eosinophils (%) (Auto) 2.5, Basophils (%) (Auto) 1.0, Sodium Level 138, Potassium Level 4.9, Chloride Level 101, Carbon Dioxide Level 34H, Anion Gap 3L, Blood Urea Nitrogen 22H, Creatinine 0.7, Estimat Glomerular Filtration Rate , Glucose Level 130H, Calcium Level 8.6, Total Bilirubin 2.7H, Direct Bilirubin 2.3H, Aspartate Amino Transf (AST/SGOT) 51H, Alanine Aminotransferase (ALT/SGPT) 48, Alkaline Phosphatase 1452H, Pro-B-Type Natriuretic Peptide 2119H, Total Protein 7.2, Albumin 2.1L, Globulin 5.1, Albumin/Globulin Ratio 0.4L Height (Feet): 5 Height (Inches): 4.00 Weight (Pounds): 91 Objective WDWN NCAT supple, (+) trach CTA RRR abd soft , (+) GT (+) LE edema opens eyes ARNULFO DURON Oct 20, 2017 12:41
--- NOTE | 2017-10-20 13:21 | Wound Care Consultation ---
Wound Assessment Wound Assessment : Wound Present on Admission: No New Wound: Yes Status Change of Wound: No Wound Location Body Site: perineal area Wound Type: chemical burn Gray Test: Does not Gray Wound Drainage Amount: None Wound Drainage Odor: None/Absent Tissue Surrounding Wound: Erythemic Wound General Appearance: Reddened Wound Comment #1 Chemical burn on perineal area #2 Left plantar 1st metatarsal head dry scab Reassessed this Pt no deterioration noted. Recommendation -Local wound care per protocol -Keep clean, dry and apply Lotrimin oint on perineal area as ordered -Optimize nutrition -Heel protector on both heels -Offload both heels -Low air loss mattress -Turn and reposition -Assess and f/u accordingly for any changes TANK FRANCES RN Oct 20, 2017 13:21
--- NOTE | 2017-10-20 14:54 | Nephrology Progress Note ---
Assessment/Plan Problem List: (1) ARDS (adult respiratory distress syndrome) (2) Electrolyte imbalance (3) Thrombocytopenia Assessment today K is high (1) ARDS (adult respiratory distress syndrome) s/p Trach (2) Aspiration pneumonia (3) Protein-calorie malnutrition, severe (4) Diabetes mellitus (5) Anemia , aplastic by history (6) DM (7) UTI (8) Electrolyte imbalance (9) HTN (10) Depression (11) RA . Plan stable from renal stand - had trach and PEG water via NGT Adjust BP meds K and Phos supplement as needed Monitor renal parameters and urine output avoid nephrotoxics per orders discussed with RN Left ventricular ejection fraction estimated to be 55 %. Subjective ROS Limited/Unobtainable: Yes Objective Objective Last 24 Hour Vital Signs Date Time Temp Pulse Resp B/P (MAP) Pulse Ox O2 Delivery O2 Flow Rate FiO2 10/20/17 12:00 99.0 96 24 123/64 99 Mechanical Ventilator 40 99.0 10/20/17 12:00 40 10/20/17 11:37 97 10/20/17 11:25 86 21 40 10/20/17 09:11 84 22 40 10/20/17 08:50 89 142/69 10/20/17 08:29 98.0 89 26 142/69 100 Mechanical Ventilator 40 98.0 10/20/17 08:00 40 10/20/17 07:24 104 10/20/17 06:55 83 20 40 10/20/17 05:16 86 19 40 10/20/17 04:03 78 10/20/17 04:00 40 10/20/17 04:00 98.1 81 22 137/69 100 Mechanical Ventilator 40 98.1 10/20/17 02:46 74 18 40 10/20/17 00:44 72 18 40 10/20/17 00:00 98.0 77 18 115/61 100 Mechanical Ventilator 40 98.0 10/19/17 23:51 81 10/19/17 22:55 89 18 40 10/19/17 22:08 90 18 40 10/19/17 20:00 98.4 87 20 108/57 100 Mechanical Ventilator 40 98.4 10/19/17 20:00 40 10/19/17 19:37 81 10/19/17 18:48 83 19 40 10/19/17 17:37 89 102/56 10/19/17 16:47 94 18 40 10/19/17 16:44 90 10/19/17 16:30 98.4 89 20 102/56 99 Mechanical Ventilator 40 98.4 10/19/17 16:00 40 10/19/17 14:54 92 20 40 Intake and Output 10/19/17 10/20/17 19:00 07:00 Intake Total 750 ml 750 ml Output Total 1700 ml 350 ml Balance -950 ml 400 ml Free Water 200 ml 150 ml Tube Feeding 550 ml 600 ml Output Urine Total 1700 ml 350 ml Laboratory Tests 10/20/17 03:30: White Blood Count 13.0H, Red Blood Count 2.94L, Hemoglobin 9.1L, Hematocrit 28.6L, Mean Corpuscular Volume 97, Mean Corpuscular Hemoglobin 31.0, Mean Corpuscular Hemoglobin Concent 31.9L, Red Cell Distribution Width 15.6H, Platelet Count 160, Mean Platelet Volume 8.8, Neutrophils (%) (Auto) 70.5, Lymphocytes (%) (Auto) 17.7L, Monocytes (%) (Auto) 8.2, Eosinophils (%) (Auto) 2.5, Basophils (%) (Auto) 1.0, Sodium Level 138, Potassium Level 4.9, Chloride Level 101, Carbon Dioxide Level 34H, Anion Gap 3L, Blood Urea Nitrogen 22H, Creatinine 0.7, Estimat Glomerular Filtration Rate , Glucose Level 130H, Calcium Level 8.6, Total Bilirubin 2.7H, Direct Bilirubin 2.3H, Aspartate Amino Transf (AST/SGOT) 51H, Alanine Aminotransferase (ALT/SGPT) 48, Alkaline Phosphatase 1452H, Pro-B-Type Natriuretic Peptide 2119H, Total Protein 7.2, Albumin 2.1L, Globulin 5.1, Albumin/Globulin Ratio 0.4L Height (Feet): 5 Height (Inches): 4.00 Weight (Pounds): 91 General Appearance: no apparent distress Cardiovascular: tachycardia Respiratory/Chest: decreased breath sounds Abdomen: distended Objective no change YAEL HANSEN Oct 20, 2017 14:54
[2017-10-20 16:00] VITALS: BP 118/59
--- NOTE | 2017-10-20 17:14 | Infectious Diseases Prog Note ---
Assessment/Plan Assessment/Plan The patient is a 76-year-old female w Fever Leukocytosis, increasing Community-acquired vs healthcare-associated pneumonia, s/p RX 10/13 SP Fiberoptic bronchoscopy, bronchoalveolar lavage, upper airway endoscopy for percutaneous tracheostomy, bronchoscopy through tracheostomy BAL : Laila an Nl devon , AFB : Neg Viral Cx : NegTD -CT chest 10/07: Extensive diffuse bilateral pulmonary parenchymal disease, slightly worse than on prior exam of 09/23/2017. Main differential considerations include pneumonia, ARDS, pulmonary edema, among multiple other possibilities. Bilateral moderate to large pleural effusions, slightly increased in size from 09/23/2017. Nasogastric and endotracheal tubes in good position. Evidence of generalized anasarca, with diffuse subcutaneous soft tissue edema. Probable influenza, SP Rx despite of negative influenza screening Abnormal liver function tests, ALP>>> AST -2ry to sludged CBD ,cholangitis, obstruction on CBD; AST/ALT , Filiberto ALP -s/p ERCP 10/08: Intraoperative images demonstrate faint opacification of the common bile duct, and placement of a new plastic endobiliary stent. What may be a previous malpositioned biliary stent is seen to the left of the endoscope -s/p ERCP with stent placement 10/01 -EUS 09/30: 1. Dilated common bile duct with lots of sludge in the distal common bile duct, most probably explanation for abnormal liver function tests. 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 Depression. Anemia. Rheumatoid arthritis. History of gastritis. PLAN: start pt on IV Vanco and Zosyn d # 1 ( Empirically ) - 10/11 SP Ertapenem #7/7 10/09 SP MIcafungin #10 10/02 SP Amikacin #10 09/30 SP Flagyl #8 09/25 sp Fluconazole #3 (held due to rise ALP) 09/23 SP Meropenem #5, PO Vanco #2 09/21 SP tamiflu #10 -f/u AFB cultures ( BAL) : P -f/u Asp ag, fungitell, Cocci ab, fungal sp cx (called lab on 10/09 for f/u on these tests; ) Monitor CBC.; Trend WBC Monitor BMP.; Trend LFTs Monitor chest x-ray -GI, heme onc f/u ERCP on Fri Pna Culture ( Bl, Ur , Sp ) Subjective Allergies: Coded Allergies: No Known Allergies (Verified , 11/18/08) Subjective Febrile Objective Vital Signs Last 24 Hour Vital Signs Date Time Temp Pulse Resp B/P (MAP) Pulse Ox O2 Delivery O2 Flow Rate FiO2 10/20/17 16:41 104 21 40 10/20/17 14:33 98 26 40 10/20/17 13:11 95 24 40 10/20/17 12:00 99.0 96 24 123/64 99 Mechanical Ventilator 40 99.0 10/20/17 12:00 40 10/20/17 11:37 97 10/20/17 11:25 86 21 40 10/20/17 09:11 84 22 40 10/20/17 08:50 89 142/69 10/20/17 08:29 98.0 89 26 142/69 100 Mechanical Ventilator 40 98.0 10/20/17 08:00 40 10/20/17 07:24 104 10/20/17 06:55 83 20 40 10/20/17 05:16 86 19 40 10/20/17 04:03 78 10/20/17 04:00 40 10/20/17 04:00 98.1 81 22 137/69 100 Mechanical Ventilator 40 98.1 10/20/17 02:46 74 18 40 10/20/17 00:44 72 18 40 10/20/17 00:00 98.0 77 18 115/61 100 Mechanical Ventilator 40 98.0 10/19/17 23:51 81 10/19/17 22:55 89 18 40 10/19/17 22:08 90 18 40 10/19/17 20:00 98.4 87 20 108/57 100 Mechanical Ventilator 40 98.4 10/19/17 20:00 40 10/19/17 19:37 81 10/19/17 18:48 83 19 40 10/19/17 17:37 89 102/56 Height (Feet): 5 Height (Inches): 4.00 Weight (Pounds): 91 HEENT: anicteric Respiratory/Chest: no accessory muscle use Cardiovascular: regular rhythm Abdomen: soft, non tender - PEG Laboratory Tests Test 10/20/17 03:30 White Blood Count 13.0 K/UL (4.8-10.8) H Red Blood Count 2.94 M/UL (4.20-5.40) L Hemoglobin 9.1 G/DL (12.0-16.0) L Hematocrit 28.6 % (37.0-47.0) L Mean Corpuscular Volume 97 FL (80-99) Mean Corpuscular Hemoglobin 31.0 PG (27.0-31.0) Mean Corpuscular Hemoglobin Concent 31.9 G/DL (32.0-36.0) L Red Cell Distribution Width 15.6 % (11.6-14.8) H Platelet Count 160 K/UL (150-450) Mean Platelet Volume 8.8 FL (6.5-10.1) Neutrophils (%) (Auto) 70.5 % (45.0-75.0) Lymphocytes (%) (Auto) 17.7 % (20.0-45.0) L Monocytes (%) (Auto) 8.2 % (1.0-10.0) Eosinophils (%) (Auto) 2.5 % (0.0-3.0) Basophils (%) (Auto) 1.0 % (0.0-2.0) Sodium Level 138 MMOL/L (136-145) Potassium Level 4.9 MMOL/L (3.5-5.1) Chloride Level 101 MMOL/L (98-107) Carbon Dioxide Level 34 MMOL/L (21-32) H Anion Gap 3 mmol/L (5-15) L Blood Urea Nitrogen 22 mg/dL (7-18) H Creatinine 0.7 MG/DL (0.55-1.30) Estimat Glomerular Filtration Rate mL/min (>60) Glucose Level 130 MG/DL (74-106) H Calcium Level 8.6 MG/DL (8.5-10.1) Total Bilirubin 2.7 MG/DL (0.2-1.0) H Direct Bilirubin 2.3 MG/DL (0.0-0.3) H Aspartate Amino Transf (AST/SGOT) 51 U/L (15-37) H Alanine Aminotransferase (ALT/SGPT) 48 U/L (12-78) Alkaline Phosphatase 1452 U/L (46-116) H Pro-B-Type Natriuretic Peptide 2119 pg/mL (0-125) H Total Protein 7.2 G/DL (6.4-8.2) Albumin 2.1 G/DL (3.4-5.0) L Globulin 5.1 g/dL Albumin/Globulin Ratio 0.4 (1.0-2.7) L Current Medications Medications (Trade) Dose Ordered Sig/Hermes Route PRN Reason Start Time Stop Time Status Last Admin Dose Admin Acetaminophen (Tylenol) 650 mg Q6H PRN NG Fever/Headache/Mild Pain 10/14/17 17:00 11/10/17 16:59 10/18/17 11:38 Clotrimazole (Lotrimin) 1 applic EVERY 12 HOURS TOPIC 10/14/17 21:00 11/09/17 22:59 10/20/17 08:33 Dextrose (Dextrose 50%) 25 ml STAT PRN IV Hypoglycemia 10/18/17 08:30 11/17/17 08:29 Dextrose (Dextrose 50%) 50 ml STAT PRN IV Hypoglycemia 10/18/17 08:30 11/17/17 08:29 Diltiazem HCl (Cardizem) 30 mg BID NG 10/14/17 18:00 11/10/17 08:59 10/20/17 08:50 Furosemide (Lasix) 40 mg DAILY IV 10/15/17 09:00 11/12/17 08:59 10/20/17 08:33 Insulin Aspart (NovoLOG) Q6HR SUBQ 10/18/17 12:00 11/17/17 11:59 10/20/17 11:50 Ketotifen Fumarate (Zatidor) 1 drop DAILY BOTH EYES 10/15/17 09:00 10/25/17 08:59 10/20/17 08:32 Morphine Sulfate (Morphine Sulfate) 1 mg Q4HR PRN IVP Moderate Pain (Pain Scale 4-6) 10/18/17 18:15 10/25/17 11:44 Morphine Sulfate (Morphine Sulfate) 2 mg Q4H PRN IVP Severe Pain (Pain Scale 7-10) 10/18/17 18:30 10/25/17 18:29 10/20/17 09:07 Pantoprazole (Protonix) 40 mg DAILY IVP 10/15/17 09:00 11/01/17 08:59 10/20/17 08:33 Edis Hunter MD Oct 20, 2017 17:14
[2017-10-20] MEDS: Acetaminophen 650mg/20.3ml NG PRN (17:30)
[2017-10-20] MEDS ORDERED: Vancomycin 750mg/NS 250ml IVPB ONE (18:00)
[2017-10-20 20:00] VITALS: BP 107/44
--- NOTE | 2017-10-20 20:04 | Internal Med Progress Note ---
Subjective Date of Service: Oct 20, 2017 Physician Name Sina Bowens Attending Physician Jesus Barahona MD Current Medications Medications (Trade) Dose Ordered Sig/Hermes Route PRN Reason Start Time Stop Time Status Last Admin Dose Admin Acetaminophen (Tylenol) 650 mg Q6H PRN NG Fever/Headache/Mild Pain 10/14/17 17:00 11/10/17 16:59 10/20/17 17:30 Clotrimazole (Lotrimin) 1 applic EVERY 12 HOURS TOPIC 10/14/17 21:00 11/09/17 22:59 10/20/17 08:33 Dextrose (Dextrose 50%) 25 ml STAT PRN IV Hypoglycemia 10/18/17 08:30 11/17/17 08:29 Dextrose (Dextrose 50%) 50 ml STAT PRN IV Hypoglycemia 10/18/17 08:30 11/17/17 08:29 Diltiazem HCl (Cardizem) 30 mg BID NG 10/14/17 18:00 11/10/17 08:59 10/20/17 17:30 Furosemide (Lasix) 40 mg DAILY IV 10/15/17 09:00 11/12/17 08:59 10/20/17 08:33 Insulin Aspart (NovoLOG) Q6HR SUBQ 10/18/17 12:00 11/17/17 11:59 10/20/17 17:34 Ketotifen Fumarate (Zatidor) 1 drop DAILY BOTH EYES 10/15/17 09:00 10/25/17 08:59 10/20/17 08:32 Morphine Sulfate (Morphine Sulfate) 1 mg Q4HR PRN IVP Moderate Pain (Pain Scale 4-6) 10/18/17 18:15 10/25/17 11:44 Morphine Sulfate (Morphine Sulfate) 2 mg Q4H PRN IVP Severe Pain (Pain Scale 7-10) 10/18/17 18:30 10/25/17 18:29 10/20/17 09:07 Pantoprazole (Protonix) 40 mg DAILY IVP 10/15/17 09:00 11/01/17 08:59 10/20/17 08:33 Piperacillin Sod/ Tazobactam Sod 3.375 gm/Dextrose 110 ml @ 27.5 mls/hr EVERY 8 HOURS IVPB 10/20/17 22:00 10/25/17 21:59 Vancomycin HCl (Vanco rx to dose) 1 ea DAILY PRN MISC Per rx protocol 10/20/17 17:15 11/19/17 17:14 Vancomycin HCl 500 mg/Dextrose 110 ml @ 110 mls/hr Q12H IVPB 10/21/17 06:00 10/26/17 05:59 10/20/17 18:08 Allergies: Coded Allergies: No Known Allergies (Verified , 11/18/08) ROS Limited/Unobtainable: Yes Subjective 76 YO F admitted with Shortness of breath, now respiratory failure. Intubated and sedated. Cover for Internal Med-Dr. Barahona. RAJINDER . S/P ERCP 10/08/17. S/P Tracheostomy and bronchoscopy 10/13/17. Await transfer to [facility] Objective Last Vital Signs Date Time Temp Pulse Resp B/P (MAP) Pulse Ox O2 Delivery O2 Flow Rate FiO2 10/20/17 19:03 89 25 40 10/20/17 18:00 100.6 10/20/17 17:30 118/59 10/20/17 17:00 100 Mechanical Ventilator Laboratory Tests Test 10/20/17 03:30 White Blood Count 13.0 K/UL (4.8-10.8) H Red Blood Count 2.94 M/UL (4.20-5.40) L Hemoglobin 9.1 G/DL (12.0-16.0) L Hematocrit 28.6 % (37.0-47.0) L Mean Corpuscular Volume 97 FL (80-99) Mean Corpuscular Hemoglobin 31.0 PG (27.0-31.0) Mean Corpuscular Hemoglobin Concent 31.9 G/DL (32.0-36.0) L Red Cell Distribution Width 15.6 % (11.6-14.8) H Platelet Count 160 K/UL (150-450) Mean Platelet Volume 8.8 FL (6.5-10.1) Neutrophils (%) (Auto) 70.5 % (45.0-75.0) Lymphocytes (%) (Auto) 17.7 % (20.0-45.0) L Monocytes (%) (Auto) 8.2 % (1.0-10.0) Eosinophils (%) (Auto) 2.5 % (0.0-3.0) Basophils (%) (Auto) 1.0 % (0.0-2.0) Sodium Level 138 MMOL/L (136-145) Potassium Level 4.9 MMOL/L (3.5-5.1) Chloride Level 101 MMOL/L (98-107) Carbon Dioxide Level 34 MMOL/L (21-32) H Anion Gap 3 mmol/L (5-15) L Blood Urea Nitrogen 22 mg/dL (7-18) H Creatinine 0.7 MG/DL (0.55-1.30) Estimat Glomerular Filtration Rate mL/min (>60) Glucose Level 130 MG/DL (74-106) H Calcium Level 8.6 MG/DL (8.5-10.1) Total Bilirubin 2.7 MG/DL (0.2-1.0) H Direct Bilirubin 2.3 MG/DL (0.0-0.3) H Aspartate Amino Transf (AST/SGOT) 51 U/L (15-37) H Alanine Aminotransferase (ALT/SGPT) 48 U/L (12-78) Alkaline Phosphatase 1452 U/L (46-116) H Pro-B-Type Natriuretic Peptide 2119 pg/mL (0-125) H Total Protein 7.2 G/DL (6.4-8.2) Albumin 2.1 G/DL (3.4-5.0) L Globulin 5.1 g/dL Albumin/Globulin Ratio 0.4 (1.0-2.7) L Intake and Output 10/19/17 10/20/17 19:00 07:00 Intake Total 750 ml 750 ml Output Total 1700 ml 350 ml Balance -950 ml 400 ml Free Water 200 ml 150 ml Tube Feeding 550 ml 600 ml Output Urine Total 1700 ml 350 ml Objective General Appearance: lethargic, thin EENT: normal ENT inspection Neck: Trach; non-tender, normal alignment, supple Cardiovascular: normal peripheral pulses, normal rate, regular rhythm, no gallop/murmur, no JVD Respiratory/Chest: Mechanical vent; trach; ; respiratory distress, crackles/ rales, rhonchi - bilaterally, expiratory wheezing Abdomen: normal bowel sounds, non tender, soft, no organomegaly, no mass Skin: normal pigmentation, warm/dry Assessment/Plan Problem List: (1) HTN (hypertension) Assessment & Plan: Currently hypotensive. (2) Arthritis, rheumatoid (3) Parkinsons disease (4) Aplastic anemia (5) GERD (gastroesophageal reflux disease) (6) Respiratory failure Assessment & Plan: S/P Tracheostomy and broncholsopy 10/13/17. Cont vent per pulmonary (7) Pneumonia (8) Dyspnea (9) Sepsis Assessment & Plan: Blood culture neg. Continue Amikacin, micafungin and flagyl per ID (10) ARDS (adult respiratory distress syndrome) Assessment & Plan: See pulmonary note (11) UTI (urinary tract infection) Assessment & Plan: E.Coli. Continue abx per ID (12) Anemia Assessment & Plan: S/P Transfusion 4 units PRBC (13) Diabetes mellitus, type II Assessment & Plan: Continue novolog sliding scale (14) Leukocytosis Assessment & Plan: Worsening. See ID note. Start amikacin and fluconazole (15) Thrombocytopenia (16) Gallbladder sludge Assessment & Plan: s/P ERCP 10/01, 10/07/17 and 10/08/17 (17) Coagulopathy Assessment & Plan: S/P FFP and Vit K Status Narrative Discharge to [facility] Assessment/Plan Discharge planning SINA BOWENS Oct 20, 2017 20:04
[2017-10-20] MEDS: Piperacillin/Tazobactam 3.375 GM in D5W 110 ML IVPB SCH (21:22)
--- NOTE | 2017-10-20 21:42 | General Progress Note ---
Assessment/Plan Problem List: (1) Arthritis, rheumatoid ICD Codes: M06.9 - Rheumatoid arthritis, unspecified SNOMED: 35577814 (2) Aspiration pneumonia ICD Codes: J69.0 - Pneumonitis due to inhalation of food and vomit SNOMED: 794523124 (3) Diabetes mellitus ICD Codes: E11.9 - Type 2 diabetes mellitus without complications SNOMED: 76397837 (4) ARDS (adult respiratory distress syndrome) ICD Codes: J80 - Acute respiratory distress syndrome SNOMED: 92178396 (5) Transaminitis ICD Codes: R74.0 - Nonspecific elevation of levels of transaminase and lactic acid dehydrogenase [LDH] SNOMED: 825018296, 576033439 (6) Dyspnea ICD Codes: R06.00 - Dyspnea, unspecified SNOMED: 030242796 (7) Parkinsons disease ICD Codes: G20 - Parkinson's disease SNOMED: 48459030 (8) Sepsis ICD Codes: A41.9 - Sepsis, unspecified organism SNOMED: 02096622 (9) GERD (gastroesophageal reflux disease) ICD Codes: K21.9 - Gastro-esophageal reflux disease without esophagitis SNOMED: 285882635 (10) Aplastic anemia ICD Codes: D61.9 - Aplastic anemia, unspecified SNOMED: 417945329 (11) Pneumonia ICD Codes: J18.9 - Pneumonia, unspecified organism SNOMED: 153702603 (12) HTN (hypertension) ICD Codes: I10 - Essential (primary) hypertension SNOMED: 03914614 Assessment/Plan Encephalopathy, agitation, psychotic disorder. -cont current meds -ativan prn Subjective Date patient seen: Oct 20, 2017 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: Reports: anxiety, depressed Allergies: Coded Allergies: No Known Allergies (Verified , 11/18/08) Subjective more awake the pt is calm nad anxious at times Objective Last 24 Hour Vital Signs Date Time Temp Pulse Resp B/P (MAP) Pulse Ox O2 Delivery O2 Flow Rate FiO2 10/20/17 20:58 82 23 40 10/20/17 19:03 89 25 40 10/20/17 18:00 100.6 10/20/17 17:30 116 118/59 10/20/17 17:30 102.9 10/20/17 17:00 101.2 116 22 100 Mechanical Ventilator 40 101.2 4/9/18 16:41 104 21 40 10/20/17 16:00 128 10/20/17 16:00 102.9 120 22 118/59 100 Mechanical Ventilator 40 102.9 10/20/17 16:00 40 10/20/17 14:33 98 26 40 10/20/17 13:11 95 24 40 10/20/17 12:00 99.0 96 24 123/64 99 Mechanical Ventilator 40 99.0 10/20/17 12:00 40 10/20/17 11:37 97 10/20/17 11:25 86 21 40 10/20/17 09:11 84 22 40 10/20/17 08:50 89 142/69 10/20/17 08:29 98.0 89 26 142/69 100 Mechanical Ventilator 40 98.0 10/20/17 08:00 40 10/20/17 07:24 104 10/20/17 06:55 83 20 40 10/20/17 05:16 86 19 40 10/20/17 04:03 78 10/20/17 04:00 40 10/20/17 04:00 98.1 81 22 137/69 100 Mechanical Ventilator 40 98.1 10/20/17 02:46 74 18 40 10/20/17 00:44 72 18 40 10/20/17 00:00 98.0 77 18 115/61 100 Mechanical Ventilator 40 98.0 10/19/17 23:51 81 10/19/17 22:55 89 18 40 10/19/17 22:08 90 18 40 Intake and Output 10/19/17 10/20/17 19:00 07:00 Intake Total 750 ml 750 ml Output Total 1700 ml 350 ml Balance -950 ml 400 ml Free Water 200 ml 150 ml Tube Feeding 550 ml 600 ml Output Urine Total 1700 ml 350 ml Laboratory Tests 10/20/17 03:30: White Blood Count 13.0H, Red Blood Count 2.94L, Hemoglobin 9.1L, Hematocrit 28.6L, Mean Corpuscular Volume 97, Mean Corpuscular Hemoglobin 31.0, Mean Corpuscular Hemoglobin Concent 31.9L, Red Cell Distribution Width 15.6H, Platelet Count 160, Mean Platelet Volume 8.8, Neutrophils (%) (Auto) 70.5, Lymphocytes (%) (Auto) 17.7L, Monocytes (%) (Auto) 8.2, Eosinophils (%) (Auto) 2.5, Basophils (%) (Auto) 1.0, Sodium Level 138, Potassium Level 4.9, Chloride Level 101, Carbon Dioxide Level 34H, Anion Gap 3L, Blood Urea Nitrogen 22H, Creatinine 0.7, Estimat Glomerular Filtration Rate , Glucose Level 130H, Calcium Level 8.6, Total Bilirubin 2.7H, Direct Bilirubin 2.3H, Aspartate Amino Transf (AST/SGOT) 51H, Alanine Aminotransferase (ALT/SGPT) 48, Alkaline Phosphatase 1452H, Pro-B-Type Natriuretic Peptide 2119H, Total Protein 7.2, Albumin 2.1L, Globulin 5.1, Albumin/Globulin Ratio 0.4L Height (Feet): 5 Height (Inches): 4.00 Weight (Pounds): 91 General Appearance: alert, confused Dary Nixon M.D. Oct 20, 2017 21:42
--- NOTE | 2017-10-20 21:43 | Geriatric Progress Note ---
Assessment/Plan Assessment/Plan Encephalopathy, agitation, psychotic disorder. PLAN: 1. The patient will be continued on lorazepam intravenous q.4 hours as needed for anxiety and agitation. 2. We will continue to follow and readjust the medications. Discussed with: patient, family, hospital staff Subjective Interval Events 10/19/17 encephalopathy dementia with behavioral dist zyprexa Mood/Memory: Reports: prior hx, anxiety, depressed feelings, emotional problems Geriatric Geriatric Last 24 Hour Vital Signs Date Time Temp Pulse Resp B/P (MAP) Pulse Ox O2 Delivery O2 Flow Rate FiO2 10/20/17 20:58 82 23 40 10/20/17 19:03 89 25 40 10/20/17 18:00 100.6 10/20/17 17:30 116 118/59 10/20/17 17:30 102.9 10/20/17 17:00 101.2 116 22 100 Mechanical Ventilator 40 101.2 10/20/17 16:41 104 21 40 10/20/17 16:00 128 10/20/17 16:00 102.9 120 22 118/59 100 Mechanical Ventilator 40 102.9 10/20/17 16:00 40 10/20/17 14:33 98 26 40 10/20/17 13:11 95 24 40 10/20/17 12:00 99.0 96 24 123/64 99 Mechanical Ventilator 40 99.0 10/20/17 12:00 40 10/20/17 11:37 97 10/20/17 11:25 86 21 40 10/20/17 09:11 84 22 40 10/20/17 08:50 89 142/69 10/20/17 08:29 98.0 89 26 142/69 100 Mechanical Ventilator 40 98.0 10/20/17 08:00 40 10/20/17 07:24 104 10/20/17 06:55 83 20 40 10/20/17 05:16 86 19 40 10/20/17 04:03 78 10/20/17 04:00 40 10/20/17 04:00 98.1 81 22 137/69 100 Mechanical Ventilator 40 98.1 10/20/17 02:46 74 18 40 10/20/17 00:44 72 18 40 10/20/17 00:00 98.0 77 18 115/61 100 Mechanical Ventilator 40 98.0 10/19/17 23:51 81 10/19/17 22:55 89 18 40 10/19/17 22:08 90 18 40 Intake and Output 10/19/17 10/20/17 19:00 07:00 Intake Total 750 ml 750 ml Output Total 1700 ml 350 ml Balance -950 ml 400 ml Free Water 200 ml 150 ml Tube Feeding 550 ml 600 ml Output Urine Total 1700 ml 350 ml Laboratory Tests Test 10/20/17 03:30 White Blood Count 13.0 K/UL (4.8-10.8) H Red Blood Count 2.94 M/UL (4.20-5.40) L Hemoglobin 9.1 G/DL (12.0-16.0) L Hematocrit 28.6 % (37.0-47.0) L Mean Corpuscular Volume 97 FL (80-99) Mean Corpuscular Hemoglobin 31.0 PG (27.0-31.0) Mean Corpuscular Hemoglobin Concent 31.9 G/DL (32.0-36.0) L Red Cell Distribution Width 15.6 % (11.6-14.8) H Platelet Count 160 K/UL (150-450) Mean Platelet Volume 8.8 FL (6.5-10.1) Neutrophils (%) (Auto) 70.5 % (45.0-75.0) Lymphocytes (%) (Auto) 17.7 % (20.0-45.0) L Monocytes (%) (Auto) 8.2 % (1.0-10.0) Eosinophils (%) (Auto) 2.5 % (0.0-3.0) Basophils (%) (Auto) 1.0 % (0.0-2.0) Sodium Level 138 MMOL/L (136-145) Potassium Level 4.9 MMOL/L (3.5-5.1) Chloride Level 101 MMOL/L (98-107) Carbon Dioxide Level 34 MMOL/L (21-32) H Anion Gap 3 mmol/L (5-15) L Blood Urea Nitrogen 22 mg/dL (7-18) H Creatinine 0.7 MG/DL (0.55-1.30) Estimat Glomerular Filtration Rate mL/min (>60) Glucose Level 130 MG/DL (74-106) H Calcium Level 8.6 MG/DL (8.5-10.1) Total Bilirubin 2.7 MG/DL (0.2-1.0) H Direct Bilirubin 2.3 MG/DL (0.0-0.3) H Aspartate Amino Transf (AST/SGOT) 51 U/L (15-37) H Alanine Aminotransferase (ALT/SGPT) 48 U/L (12-78) Alkaline Phosphatase 1452 U/L (46-116) H Pro-B-Type Natriuretic Peptide 2119 pg/mL (0-125) H Total Protein 7.2 G/DL (6.4-8.2) Albumin 2.1 G/DL (3.4-5.0) L Globulin 5.1 g/dL Albumin/Globulin Ratio 0.4 (1.0-2.7) L Current Medications Medications (Trade) Dose Ordered Sig/Hermes Route PRN Reason Start Time Stop Time Status Last Admin Dose Admin Acetaminophen (Tylenol) 650 mg Q6H PRN NG Fever/Headache/Mild Pain 10/14/17 17:00 11/10/17 16:59 10/20/17 17:30 Clotrimazole (Lotrimin) 1 applic EVERY 12 HOURS TOPIC 10/14/17 21:00 11/09/17 22:59 10/20/17 21:20 Dextrose (Dextrose 50%) 25 ml STAT PRN IV Hypoglycemia 10/18/17 08:30 11/17/17 08:29 Dextrose (Dextrose 50%) 50 ml STAT PRN IV Hypoglycemia 10/18/17 08:30 11/17/17 08:29 Diltiazem HCl (Cardizem) 30 mg BID NG 10/14/17 18:00 11/10/17 08:59 10/20/17 17:30 Furosemide (Lasix) 40 mg DAILY IV 10/15/17 09:00 11/12/17 08:59 10/20/17 08:33 Insulin Aspart (NovoLOG) Q6HR SUBQ 10/18/17 12:00 11/17/17 11:59 10/20/17 17:34 Ketotifen Fumarate (Zatidor) 1 drop DAILY BOTH EYES 10/15/17 09:00 10/25/17 08:59 10/20/17 08:32 Morphine Sulfate (Morphine Sulfate) 1 mg Q4HR PRN IVP Moderate Pain (Pain Scale 4-6) 10/18/17 18:15 10/25/17 11:44 Morphine Sulfate (Morphine Sulfate) 2 mg Q4H PRN IVP Severe Pain (Pain Scale 7-10) 10/18/17 18:30 10/25/17 18:29 10/20/17 09:07 Pantoprazole (Protonix) 40 mg DAILY IVP 10/15/17 09:00 11/01/17 08:59 10/20/17 08:33 Piperacillin Sod/ Tazobactam Sod 3.375 gm/Dextrose 110 ml @ 27.5 mls/hr EVERY 8 HOURS IVPB 10/20/17 22:00 10/25/17 21:59 10/20/17 21:22 Vancomycin HCl (Vanco rx to dose) 1 ea DAILY PRN MISC Per rx protocol 10/20/17 17:15 11/19/17 17:14 Vancomycin HCl 500 mg/Dextrose 110 ml @ 110 mls/hr Q12H IVPB 10/21/17 06:00 10/26/17 05:59 10/20/17 18:08 Height (Feet): 5 Height (Inches): 4.00 Weight (Pounds): 91 Dary Nixon M.D. Oct 20, 2017 21:43
--- NOTE | 2017-10-20 22:50 | General Progress Note ---
Assessment/Plan Assessment/Plan #. Coagulopathy - potentially related to DIC early onset, review hapto, inr repeat, fibrinogen, DIC panel --> S/P FFP and Vit K --> DW pulm Dr. Parekh --> Likely related to infection versus other cause. On antibiotics. --> Prophylaxis. #. Anemia due to underlying chronic disease. Continue to closely monitor. --> Hemoglobin goal is above 7. --> S/P blood transfusion as hemoglobin levels fell low. --> Occult blood detected. Consider GI recs. --> Transfuse as necessary --> Blood transfusion not required unless symptomatic or hgb below goal. #. Pancytopenia --> WBC count and platelet counts are within normal levels now. --> Hemoglobin levels downtrended. Transfuse if continues to drop. --> S/P Platelet transfusion --> Monitor and trend cbc daily. #. Sepsis. --> Leukocytosis likely related to underlying pneumonia infection. --> Resolved on antibiotic treatment. #. Thrombocytopenia, severe and progressive, acute onset, likely secondary to underlying infection, aspiration, hit was negative --> Duplex of the lower extremities is negative, therefore less likely HIT and other causes are more likely such as underlying infection. --> Platelets goal >20k, transfuse if necessary. --> On antibiotics as per ID --> Platelet count has been downtrending, monitor closely. #. Respiratory failure, vent dependent --> acute respiratory distress syndrome. --> S/P tracheostomy. Cont vent per pulmonary. #. Community-acquired pneumonia versus hospital-acquired. --> The patient on broad-spectrum antibiotics. --> Improved. --> Urine culture growing E. coli. Continue to closely monitor. #. Transaminitis. She has been seen by GI Service. Continue to closely monitor. #. Low-grade fever. Closely observe. #. Encephalopathy. Parkinson's Disease. #. Diabetes mellitus II. #. Tube feeding. #. Hypertension. --> Currently hypotensive. Subjective Date patient seen: Oct 20, 2017 Constitutional: Denies: no symptoms, chills, diaphoresis, fever, malaise, weakness, other HEENT: Denies: no symptoms, eye pain, blurred vision, tearing, double vision, ear pain, ear discharge, nose pain, nose congestion, throat pain, throat swelling, mouth pain, mouth swelling, other Cardiovascular: Denies: no symptoms, chest pain, edema, irregular heart rate, lightheadedness, palpitations, syncope, other Respiratory: Denies: no symptoms, cough, orthopnea, shortness of breath, SOB with excertion, SOB at rest, sputum, stridor, wheezing, other Gastrointestinal/Abdominal: Denies: no symptoms, abdomen distended, abdominal pain, black stools, tarry stools, blood in stool, constipated, diarrhea, difficulty swallowing, nausea, poor appetite, poor fluid intake, rectal bleeding , vomiting, other Genitourinary: Denies: no symptoms, burning, discharge, frequency, flank pain, hematuria, incontinence, pain, urgency, other 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: Denies: no symptoms, anxiety, depressed, emotional problems, headache, numbness, paresthesia, pre-existing deficit, seizure, tingling, tremors, weakness, other Hematologic/Lymphatic: Reports: anemia Allergies: Coded Allergies: No Known Allergies (Verified , 11/18/08) Subjective Intubated and sedated. Hypotensive. Objective Last 24 Hour Vital Signs Date Time Temp Pulse Resp B/P (MAP) Pulse Ox O2 Delivery O2 Flow Rate FiO2 10/20/17 20:58 82 23 40 10/20/17 20:00 40 10/20/17 20:00 98.1 81 20 107/44 100 Mechanical Ventilator 40 98.1 10/20/17 19:03 89 25 40 10/20/17 19:00 91 10/20/17 18:00 100.6 10/20/17 17:30 116 118/59 10/20/17 17:30 102.9 10/20/17 17:00 101.2 116 22 100 Mechanical Ventilator 40 101.2 10/20/17 16:41 104 21 40 10/20/17 16:00 128 10/20/17 16:00 102.9 120 22 118/59 100 Mechanical Ventilator 40 102.9 10/20/17 16:00 40 10/20/17 14:33 98 26 40 10/20/17 13:11 95 24 40 10/20/17 12:00 99.0 96 24 123/64 99 Mechanical Ventilator 40 99.0 10/20/17 12:00 40 10/20/17 11:37 97 4/9/18 11:25 86 21 40 10/20/17 09:11 84 22 40 10/20/17 08:50 89 142/69 10/20/17 08:29 98.0 89 26 142/69 100 Mechanical Ventilator 40 98.0 10/20/17 08:00 40 10/20/17 07:24 104 10/20/17 06:55 83 20 40 10/20/17 05:16 86 19 40 10/20/17 04:03 78 10/20/17 04:00 40 10/20/17 04:00 98.1 81 22 137/69 100 Mechanical Ventilator 40 98.1 10/20/17 02:46 74 18 40 10/20/17 00:44 72 18 40 10/20/17 00:00 98.0 77 18 115/61 100 Mechanical Ventilator 40 98.0 10/19/17 23:51 81 10/19/17 22:55 89 18 40 Intake and Output 10/19/17 10/20/17 19:00 07:00 Intake Total 750 ml 750 ml Output Total 1700 ml 350 ml Balance -950 ml 400 ml Free Water 200 ml 150 ml Tube Feeding 550 ml 600 ml Output Urine Total 1700 ml 350 ml Laboratory Tests 10/20/17 03:30: White Blood Count 13.0H, Red Blood Count 2.94L, Hemoglobin 9.1L, Hematocrit 28.6L, Mean Corpuscular Volume 97, Mean Corpuscular Hemoglobin 31.0, Mean Corpuscular Hemoglobin Concent 31.9L, Red Cell Distribution Width 15.6H, Platelet Count 160, Mean Platelet Volume 8.8, Neutrophils (%) (Auto) 70.5, Lymphocytes (%) (Auto) 17.7L, Monocytes (%) (Auto) 8.2, Eosinophils (%) (Auto) 2.5, Basophils (%) (Auto) 1.0, Sodium Level 138, Potassium Level 4.9, Chloride Level 101, Carbon Dioxide Level 34H, Anion Gap 3L, Blood Urea Nitrogen 22H, Creatinine 0.7, Estimat Glomerular Filtration Rate , Glucose Level 130H, Calcium Level 8.6, Total Bilirubin 2.7H, Direct Bilirubin 2.3H, Aspartate Amino Transf (AST/SGOT) 51H, Alanine Aminotransferase (ALT/SGPT) 48, Alkaline Phosphatase 1452H, Pro-B-Type Natriuretic Peptide 2119H, Total Protein 7.2, Albumin 2.1L, Globulin 5.1, Albumin/Globulin Ratio 0.4L Height (Feet): 5 Height (Inches): 4.00 Weight (Pounds): 91 General Appearance: confused Respiratory/Chest: decreased breath sounds Johnny Sinha MD Oct 20, 2017 22:50
[2017-10-21] VITALS: BP 100/52
[2017-10-21 04:00] VITALS: BP 100/54
[2017-10-21 05:16] LABS: HEMATOCRIT 28.2 % (37.0-47.0); HEMOGLOBIN 9.4 G/DL (12.0-16.0); MEAN CORPUSCULAR VOLUME 96 FL (80-99); PLATELET COUNT 145 K/UL (150-450); RED BLOOD COUNT 2.93 M/UL (4.20-5.40); RED CELL DISTRIBUTION WIDTH 16.2 % (11.6-14.8); WHITE BLOOD COUNT 21.6 K/UL (4.8-10.8)
[2017-10-21 05:27] LABS: INR 1.1 (0.9-1.1)
[2017-10-21] MEDS: Piperacillin/Tazobactam 3.375 GM in D5W 110 ML IVPB SCH ×3 (05:58→21:11)
[2017-10-21] MEDS: NovoLOG Insulin Flexpen SUBQ SCH ×4 (06:00→23:23)
[2017-10-21] MEDS ORDERED: Vancomycin 500mg/D5W 110ml IVPB SCH ×2 (06:00)
[2017-10-21 06:13] LABS: ALANINE AMINOTRANSFERASE 166 U/L (12-78); ALBUMIN/GLOBULIN RATIO 0.4 (1.0-2.7); ANION GAP 9 mmol/L (5-15); ASPARTATE AMINO TRANSFERASE 226 U/L (15-37); BILIRUBIN,TOTAL 5.7 MG/DL (0.2-1.0); BLOOD UREA NITROGEN 35 mg/dL (7-18); CALCIUM 8.5 MG/DL (8.5-10.1); CARBON DIOXIDE 30 MMOL/L (21-32); CHLORIDE 98 MMOL/L (98-107); CREATININE 0.8 MG/DL (0.55-1.30); PHOSPHORUS 4.8 MG/DL (2.5-4.9); POTASSIUM 4.1 MMOL/L (3.5-5.1); SODIUM 137 MMOL/L (136-145)
[2017-10-21 06:59] LABS: BILIRUBIN,DIRECT 4.9 MG/DL (0.0-0.3)
[2017-10-21 07:08] LABS: ALKALINE PHOSPHATASE 2489 U/L (46-116)
[2017-10-21 07:58] VITALS: BP 101/52
[2017-10-21] MEDS: Ketotifen Fumarate 0.035% 5ml BOTH EYES SCH ×2 (08:00→20:16)
[2017-10-21] MEDS: Pantoprazole Inj IVP SCH (08:05)
[2017-10-21] MEDS: dilTIAZem HCl 30mg tab NG SCH ×2 (09:00→17:58)
--- NOTE | 2017-10-21 10:57 | Pulmonology Progress Note ---
Assessment/Plan Problems: (1) ARDS (adult respiratory distress syndrome) (2) Sepsis (3) Aspiration pneumonia (4) Parkinsons disease (5) Protein-calorie malnutrition, severe (6) Diabetes mellitus, type II Respiratory: monitor respiratory rate, adjust FIO2, CXR Cardiac: continue to monitor HR/BP Renal: F/U I&O Infectious Disease: check cultures Endocrine: monitor blood sugar, continue sliding scale insulin Hematologic: monitor H/H, transfuse if hgb<8.5 Neurologic: PRN Ativan, keep patient comfortable Prophylaxis: Protonix Notes Reviewed: general ophthalmologist, renal Discussed with: nurses, consultants, corrections caseworker Subjective ROS Limited/Unobtainable: No Constitutional: Reports: no symptoms HEENT: Repors: no symptoms Respiratory: Reports: no symptoms Allergies: Coded Allergies: No Known Allergies (Verified , 11/18/08) Objective Last 24 Hour Vital Signs Date Time Temp Pulse Resp B/P (MAP) Pulse Ox O2 Delivery O2 Flow Rate FiO2 10/21/17 09:02 100 23 40 10/21/17 08:00 40 10/21/17 07:58 97.9 104 24 101/52 99 Mechanical Ventilator 40 97.9 10/21/17 07:47 106 26 40 10/21/17 07:28 115 10/21/17 06:53 113 27 40 10/21/17 04:38 92 28 40 10/21/17 04:05 119 10/21/17 04:00 97.6 108 24 100/54 100 Mechanical Ventilator 40 97.6 10/21/17 04:00 40 10/21/17 03:03 89 26 40 10/21/17 00:30 81 22 40 10/21/17 00:00 97.9 80 26 100/52 100 Mechanical Ventilator 40 97.9 10/21/17 00:00 40 10/20/17 23:25 86 10/20/17 22:56 84 24 40 10/20/17 20:58 82 23 40 10/20/17 20:00 40 10/20/17 20:00 98.1 81 20 107/44 100 Mechanical Ventilator 40 98.1 10/20/17 19:03 89 25 40 10/20/17 19:00 91 10/20/17 18:00 100.6 10/20/17 17:30 116 118/59 4/9/18 17:30 102.9 10/20/17 17:00 101.2 116 22 100 Mechanical Ventilator 40 101.2 10/20/17 16:41 104 21 40 10/20/17 16:00 128 10/20/17 16:00 102.9 120 22 118/59 100 Mechanical Ventilator 40 102.9 10/20/17 16:00 40 10/20/17 14:33 98 26 40 10/20/17 13:11 95 24 40 10/20/17 12:00 99.0 96 24 123/64 99 Mechanical Ventilator 40 99.0 10/20/17 12:00 40 10/20/17 11:37 97 10/20/17 11:25 86 21 40 Intake and Output 10/20/17 10/21/17 19:00 07:00 Intake Total 800 ml 897.5 ml Output Total 1400 ml 150 ml Balance -600 ml 747.5 ml Free Water 250 ml 100 ml IV Total 247.5 ml Tube Feeding 550 ml 550 ml Output Urine Total 1400 ml 150 ml # Bowel Movements 2 General Appearance: cachetic HEENT: normocephalic, atraumatic Respiratory/Chest: chest wall non-tender, lungs clear Breasts: no masses Cardiovascular: normal peripheral pulses Abdomen: normal bowel sounds, no organomegaly Genitourinary: normal external genitalia Extremities: no cyanosis Skin: no rash Microbiology Date/Time Source Procedure Growth Status 10/20/17 18:00 Indwelling Cath Urine Culture - Preliminary NO GROWTH Resulted Laboratory Tests 10/21/17 03:20: White Blood Count 21.6#H, Red Blood Count 2.93L, Hemoglobin 9.4L, Hematocrit 28.2L, Mean Corpuscular Volume 96, Mean Corpuscular Hemoglobin 32.1H, Mean Corpuscular Hemoglobin Concent 33.4, Red Cell Distribution Width 16.2H, Platelet Count 145L, Mean Platelet Volume 8.8, Neutrophils (%) (Auto) , Lymphocytes (%) (Auto) , Monocytes (%) (Auto) , Eosinophils (%) (Auto) , Basophils (%) (Auto) , Differential Total Cells Counted 100, Neutrophils % ( Manual) 89H, Lymphocytes % (Manual) 3L, Monocytes % (Manual) 4, Eosinophils % ( Manual) 0, Basophils % (Manual) 0, Band Neutrophils 4, Platelet Estimate DecreasedL, Platelet Morphology Normal, Anisocytosis 1+, Prothrombin Time 11.3, Prothromb Time International Ratio 1.1, Sodium Level 137, Potassium Level 4.1, Chloride Level 98, Carbon Dioxide Level 30, Anion Gap 9, Blood Urea Nitrogen 35H , Creatinine 0.8, Estimat Glomerular Filtration Rate , Glucose Level 112H, Calcium Level 8.5, Phosphorus Level 4.8, Magnesium Level 2.0, Total Bilirubin 5.7H, Direct Bilirubin 4.9H, Aspartate Amino Transf (AST/SGOT) 226H, Alanine Aminotransferase (ALT/SGPT) 166H, Alkaline Phosphatase 2489H, Total Protein 7.0 , Albumin 2.0L, Globulin 5.0, Albumin/Globulin Ratio 0.4L Current Medications Medications (Trade) Dose Ordered Sig/Hermes Route PRN Reason Start Time Stop Time Status Last Admin Dose Admin Acetaminophen (Tylenol) 650 mg Q6H PRN NG Fever/Headache/Mild Pain 10/14/17 17:00 11/10/17 16:59 10/20/17 17:30 Clotrimazole (Lotrimin) 1 applic EVERY 12 HOURS TOPIC 10/14/17 21:00 11/09/17 22:59 10/21/17 08:00 Dextrose (Dextrose 50%) 25 ml STAT PRN IV Hypoglycemia 10/18/17 08:30 11/17/17 08:29 Dextrose (Dextrose 50%) 50 ml STAT PRN IV Hypoglycemia 10/18/17 08:30 11/17/17 08:29 Diltiazem HCl (Cardizem) 30 mg BID NG 10/14/17 18:00 11/10/17 08:59 10/20/17 17:30 Furosemide (Lasix) 40 mg DAILY IV 10/15/17 09:00 11/12/17 08:59 10/21/17 08:05 Insulin Aspart (NovoLOG) Q6HR SUBQ 10/18/17 12:00 11/17/17 11:59 10/21/17 06:00 Ketotifen Fumarate (Zatidor) 1 drop DAILY BOTH EYES 10/15/17 09:00 10/25/17 08:59 10/21/17 08:00 Morphine Sulfate (Morphine Sulfate) 1 mg Q4HR PRN IVP Moderate Pain (Pain Scale 4-6) 10/18/17 18:15 10/25/17 11:44 Morphine Sulfate (Morphine Sulfate) 2 mg Q4H PRN IVP Severe Pain (Pain Scale 7-10) 10/18/17 18:30 10/25/17 18:29 10/20/17 09:07 Pantoprazole (Protonix) 40 mg DAILY IVP 10/15/17 09:00 11/01/17 08:59 10/21/17 08:05 Piperacillin Sod/ Tazobactam Sod 3.375 gm/Dextrose 110 ml @ 27.5 mls/hr EVERY 8 HOURS IVPB 10/20/17 22:00 10/25/17 21:59 10/21/17 05:58 Vancomycin HCl (Vanco rx to dose) 1 ea DAILY PRN MISC Per rx protocol 10/20/17 17:15 11/19/17 17:14 Vancomycin HCl 500 mg/Dextrose 110 ml @ 110 mls/hr Q12H IVPB 10/21/17 06:00 10/26/17 05:59 10/20/17 18:08 Tayler Liu MD Oct 21, 2017 10:57
[2017-10-21] MEDS: Vancomycin 500mg/D5W 110ml IVPB SCH ×4 (11:14→22:31)
[2017-10-21 11:26] VITALS: BP 108/56
--- NOTE | 2017-10-21 13:12 | Nephrology Progress Note ---
Assessment/Plan Problem List: (1) ARDS (adult respiratory distress syndrome) (2) Electrolyte imbalance (3) Thrombocytopenia Assessment worsening leukocytosis (1) ARDS (adult respiratory distress syndrome) s/p Trach (2) Aspiration pneumonia (3) Protein-calorie malnutrition, severe (4) Diabetes mellitus (5) Anemia , aplastic by history (6) DM (7) UTI (8) Electrolyte imbalance (9) HTN (10) Depression (11) RA . Plan stable from renal stand - had trach and PEG water via NGT Adjust BP meds K and Phos supplement as needed Monitor renal parameters and urine output avoid nephrotoxics per orders discussed with RN Left ventricular ejection fraction estimated to be 55 %. Subjective ROS Limited/Unobtainable: Yes Objective Objective Last 24 Hour Vital Signs Date Time Temp Pulse Resp B/P (MAP) Pulse Ox O2 Delivery O2 Flow Rate FiO2 10/21/17 11:26 98.7 93 20 108/56 100 Mechanical Ventilator 40 98.7 10/21/17 11:19 97 21 40 10/21/17 09:02 100 23 40 10/21/17 09:00 93 108/56 10/21/17 08:00 40 10/21/17 07:58 97.9 104 24 101/52 99 Mechanical Ventilator 40 97.9 10/21/17 07:47 106 26 40 10/21/17 07:28 115 10/21/17 06:53 113 27 40 10/21/17 04:38 92 28 40 10/21/17 04:05 119 10/21/17 04:00 97.6 108 24 100/54 100 Mechanical Ventilator 40 97.6 10/21/17 04:00 40 10/21/17 03:03 89 26 40 10/21/17 00:30 81 22 40 10/21/17 00:00 97.9 80 26 100/52 100 Mechanical Ventilator 40 97.9 10/21/17 00:00 40 10/20/17 23:25 86 10/20/17 22:56 84 24 40 10/20/17 20:58 82 23 40 10/20/17 20:00 40 10/20/17 20:00 98.1 81 20 107/44 100 Mechanical Ventilator 40 98.1 10/20/17 19:03 89 25 40 10/20/17 19:00 91 10/20/17 18:00 100.6 10/20/17 17:30 116 118/59 10/20/17 17:30 102.9 10/20/17 17:00 101.2 116 22 100 Mechanical Ventilator 40 101.2 10/20/17 16:41 104 21 40 10/20/17 16:00 128 10/20/17 16:00 102.9 120 22 118/59 100 Mechanical Ventilator 40 102.9 10/20/17 16:00 40 10/20/17 14:33 98 26 40 Intake and Output 10/20/17 10/21/17 19:00 07:00 Intake Total 800 ml 947.5 ml Output Total 1400 ml 150 ml Balance -600 ml 797.5 ml Free Water 250 ml 100 ml IV Total 247.5 ml Tube Feeding 550 ml 600 ml Output Urine Total 1400 ml 150 ml # Bowel Movements 2 Laboratory Tests 10/21/17 03:20: White Blood Count 21.6#H, Red Blood Count 2.93L, Hemoglobin 9.4L, Hematocrit 28.2L, Mean Corpuscular Volume 96, Mean Corpuscular Hemoglobin 32.1H, Mean Corpuscular Hemoglobin Concent 33.4, Red Cell Distribution Width 16.2H, Platelet Count 145L, Mean Platelet Volume 8.8, Neutrophils (%) (Auto) , Lymphocytes (%) (Auto) , Monocytes (%) (Auto) , Eosinophils (%) (Auto) , Basophils (%) (Auto) , Differential Total Cells Counted 100, Neutrophils % ( Manual) 89H, Lymphocytes % (Manual) 3L, Monocytes % (Manual) 4, Eosinophils % ( Manual) 0, Basophils % (Manual) 0, Band Neutrophils 4, Platelet Estimate DecreasedL, Platelet Morphology Normal, Anisocytosis 1+, Prothrombin Time 11.3, Prothromb Time International Ratio 1.1, Sodium Level 137, Potassium Level 4.1, Chloride Level 98, Carbon Dioxide Level 30, Anion Gap 9, Blood Urea Nitrogen 35H , Creatinine 0.8, Estimat Glomerular Filtration Rate , Glucose Level 112H, Calcium Level 8.5, Phosphorus Level 4.8, Magnesium Level 2.0, Total Bilirubin 5.7H, Direct Bilirubin 4.9H, Aspartate Amino Transf (AST/SGOT) 226H, Alanine Aminotransferase (ALT/SGPT) 166H, Alkaline Phosphatase 2489H, Total Protein 7.0 , Albumin 2.0L, Globulin 5.0, Albumin/Globulin Ratio 0.4L Height (Feet): 5 Height (Inches): 4.00 Weight (Pounds): 89 General Appearance: no apparent distress Cardiovascular: tachycardia Respiratory/Chest: decreased breath sounds Abdomen: distended Objective no change YAEL HANSEN Oct 21, 2017 13:12
--- NOTE | 2017-10-21 15:03 | Cardiac Electrophysiology PN ---
Assessment/Plan Assessment/Plan 1. Vent dependent Respiratory failure, due to underlying ARDS , pneumonia. Ruled out for myocardial infarction. S/P Tracheostomy 2. Left bundle-branch block. No evidence of more advanced heart block. 3. HTN and diastolic dysfunction. Echo EF 55% On Cardizem 30 BID . DC Lasix 4. Hypernatremia and Azotemia. F/U per Dr. Mayer 5. Pneumonia and sepsis on IV antibiotics by Dr. Hunter.WBC high to >20K today 6. Psychiatric disorder. 7. Anasarca. 3rd spacing. 8. Anemia with Hb 6.6 s/p PRBC. CT chest abdomen and pelvis without contrast no acute finding S/P EGD by Dr Walton. S/P PEG 10/16/17 9. Severe thrombocytopenia. S/P platelet transfusion 10. Abnormal LFT, Biliary obstruction, possible cholangitis. S/P ERCP. CBD sludge. S/P repeat ERCP and stent by Dr. Walton Bilirubin up again to more than 5 and ALk Phos more than 2400s 11. High INR likely due to hepatic failure. S/P FFP and Vit K. INR 1 DW RN Subjective Subjective No SVT or VT.On Vent via Trach. Objective Last 24 Hour Vital Signs Date Time Temp Pulse Resp B/P (MAP) Pulse Ox O2 Delivery O2 Flow Rate FiO2 10/21/17 13:26 94 33 40 10/21/17 11:34 93 10/21/17 11:26 98.7 93 20 108/56 100 Mechanical Ventilator 40 98.7 10/21/17 11:19 97 21 40 10/21/17 09:02 100 23 40 10/21/17 09:00 93 108/56 10/21/17 08:00 40 10/21/17 07:58 97.9 104 24 101/52 99 Mechanical Ventilator 40 97.9 10/21/17 07:47 106 26 40 10/21/17 07:28 115 10/21/17 06:53 113 27 40 10/21/17 04:38 92 28 40 10/21/17 04:05 119 10/21/17 04:00 97.6 108 24 100/54 100 Mechanical Ventilator 40 97.6 10/21/17 04:00 40 10/21/17 03:03 89 26 40 4/10/18 00:30 81 22 40 10/21/17 00:00 97.9 80 26 100/52 100 Mechanical Ventilator 40 97.9 10/21/17 00:00 40 10/20/17 23:25 86 10/20/17 22:56 84 24 40 10/20/17 20:58 82 23 40 10/20/17 20:00 40 10/20/17 20:00 98.1 81 20 107/44 100 Mechanical Ventilator 40 98.1 10/20/17 19:03 89 25 40 10/20/17 19:00 91 10/20/17 18:00 100.6 10/20/17 17:30 116 118/59 10/20/17 17:30 102.9 10/20/17 17:00 101.2 116 22 100 Mechanical Ventilator 40 101.2 10/20/17 16:41 104 21 40 10/20/17 16:00 128 10/20/17 16:00 102.9 120 22 118/59 100 Mechanical Ventilator 40 102.9 10/20/17 16:00 40 Intake and Output 10/20/17 10/21/17 19:00 07:00 Intake Total 800 ml 947.5 ml Output Total 1400 ml 150 ml Balance -600 ml 797.5 ml Free Water 250 ml 100 ml IV Total 247.5 ml Tube Feeding 550 ml 600 ml Output Urine Total 1400 ml 150 ml # Bowel Movements 2 Laboratory Tests Test 10/21/17 03:20 White Blood Count 21.6 K/UL (4.8-10.8) #H Red Blood Count 2.93 M/UL (4.20-5.40) L Hemoglobin 9.4 G/DL (12.0-16.0) L Hematocrit 28.2 % (37.0-47.0) L Mean Corpuscular Volume 96 FL (80-99) Mean Corpuscular Hemoglobin 32.1 PG (27.0-31.0) H Mean Corpuscular Hemoglobin Concent 33.4 G/DL (32.0-36.0) Red Cell Distribution Width 16.2 % (11.6-14.8) H Platelet Count 145 K/UL (150-450) L Mean Platelet Volume 8.8 FL (6.5-10.1) Neutrophils (%) (Auto) % (45.0-75.0) Lymphocytes (%) (Auto) % (20.0-45.0) Monocytes (%) (Auto) % (1.0-10.0) Eosinophils (%) (Auto) % (0.0-3.0) Basophils (%) (Auto) % (0.0-2.0) Differential Total Cells Counted 100 Neutrophils % (Manual) 89 % (45-75) H Lymphocytes % (Manual) 3 % (20-45) L Monocytes % (Manual) 4 % (1-10) Eosinophils % (Manual) 0 % (0-3) Basophils % (Manual) 0 % (0-2) Band Neutrophils 4 % (0-8) Platelet Estimate Decreased L Platelet Morphology Normal Anisocytosis 1+ Prothrombin Time 11.3 SEC (9.30-11.50) Prothromb Time International Ratio 1.1 (0.9-1.1) Sodium Level 137 MMOL/L (136-145) Potassium Level 4.1 MMOL/L (3.5-5.1) Chloride Level 98 MMOL/L (98-107) Carbon Dioxide Level 30 MMOL/L (21-32) Anion Gap 9 mmol/L (5-15) Blood Urea Nitrogen 35 mg/dL (7-18) H Creatinine 0.8 MG/DL (0.55-1.30) Estimat Glomerular Filtration Rate mL/min (>60) Glucose Level 112 MG/DL (74-106) H Calcium Level 8.5 MG/DL (8.5-10.1) Phosphorus Level 4.8 MG/DL (2.5-4.9) Magnesium Level 2.0 MG/DL (1.8-2.4) Total Bilirubin 5.7 MG/DL (0.2-1.0) H Direct Bilirubin 4.9 MG/DL (0.0-0.3) H Aspartate Amino Transf (AST/SGOT) 226 U/L (15-37) H Alanine Aminotransferase (ALT/SGPT) 166 U/L (12-78) H Alkaline Phosphatase 2489 U/L (46-116) H Total Protein 7.0 G/DL (6.4-8.2) Albumin 2.0 G/DL (3.4-5.0) L Globulin 5.0 g/dL Albumin/Globulin Ratio 0.4 (1.0-2.7) L Microbiology Date/Time Source Procedure Growth Status 10/20/17 18:00 Indwelling Cath Urine Culture - Preliminary NO GROWTH Resulted Objective HEAD AND NECK: Tracheostomy in place LUNGS: Coarse rhonchi bilaterally CARDIOVASCULAR: Tachy S1 and S2.No murmur ABDOMEN: Soft.PEG in place EXTREMITIES: No edema. Charlie Darnell MD Oct 21, 2017 15:03
--- NOTE | 2017-10-21 15:05 | Infectious Diseases Prog Note ---
Assessment/Plan Assessment/Plan The patient is a 76-year-old female w Fever , SP Leukocytosis, increasing Cholangitis : Abnormal liver function tests, ALP>>> AST -wrosening , 2ry to sludged CBD ,cholangitis, obstruction on CBD; AST/ALT , Filiberto ALP -s/p ERCP 10/08: Intraoperative images demonstrate faint opacification of the common bile duct, and placement of a new plastic endobiliary stent. What may be a previous malpositioned biliary stent is seen to the left of the endoscope -s/p ERCP with stent placement 10/01 -EUS 09/30: 1. Dilated common bile duct with lots of sludge in the distal common bile duct, most probably explanation for abnormal liver function tests. Large ascites Hep panel : neg Community-acquired vs healthcare-associated pneumonia, s/p RX 10/13 SP Fiberoptic bronchoscopy, bronchoalveolar lavage, upper airway endoscopy for percutaneous tracheostomy, bronchoscopy through tracheostomy BAL : Laila an Nl devon , AFB : Neg Viral Cx : NegTD -CT chest 10/07: Extensive diffuse bilateral pulmonary parenchymal disease, slightly worse than on prior exam of 09/23/2017. Main differential considerations include pneumonia, ARDS, pulmonary edema, among multiple other possibilities. Bilateral moderate to large pleural effusions, slightly increased in size from 09/23/2017. Nasogastric and endotracheal tubes in good position. Evidence of generalized anasarca, with diffuse subcutaneous soft tissue edema. 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 Depression. Anemia. Rheumatoid arthritis. History of gastritis. PLAN: start pt on IV Vanco and Zosyn d # 2 ( Empirically ) - 10/11 SP Ertapenem #/10/09 SP MIcafungin #10 10/02 SP Amikacin #10 09/30 SP Flagyl #8 09/25 sp Fluconazole #3 (held due to rise ALP) 09/23 SP Meropenem #5, PO Vanco #2 09/21 SP tamiflu #10 -f/u AFB cultures ( BAL) : P -f/u Asp ag, fungitell, Cocci ab, fungal sp cx (called lab on 10/09 for f/u on these tests; ) Monitor CBC.; Trend WBC Monitor BMP.; Trend LFTs Monitor chest x-ray -GI, heme onc f/u ERCP on Fri Pna Culture ( Bl, Ur , Sp ) Subjective Constitutional: Denies: no symptoms, fever, chills, fatigue, anorexia, drenching sweats, other Allergies: Coded Allergies: No Known Allergies (Verified , 11/18/08) Subjective Febrile Objective Vital Signs Last 24 Hour Vital Signs Date Time Temp Pulse Resp B/P (MAP) Pulse Ox O2 Delivery O2 Flow Rate FiO2 10/21/17 13:26 94 33 40 10/21/17 11:34 93 10/21/17 11:26 98.7 93 20 108/56 100 Mechanical Ventilator 40 98.7 10/21/17 11:19 97 21 40 10/21/17 09:02 100 23 40 10/21/17 09:00 93 108/56 10/21/17 08:00 40 10/21/17 07:58 97.9 104 24 101/52 99 Mechanical Ventilator 40 97.9 10/21/17 07:47 106 26 40 10/21/17 07:28 115 10/21/17 06:53 113 27 40 10/21/17 04:38 92 28 40 10/21/17 04:05 119 10/21/17 04:00 97.6 108 24 100/54 100 Mechanical Ventilator 40 97.6 10/21/17 04:00 40 10/21/17 03:03 89 26 40 10/21/17 00:30 81 22 40 10/21/17 00:00 97.9 80 26 100/52 100 Mechanical Ventilator 40 97.9 10/21/17 00:00 40 10/20/17 23:25 86 10/20/17 22:56 84 24 40 10/20/17 20:58 82 23 40 10/20/17 20:00 40 10/20/17 20:00 98.1 81 20 107/44 100 Mechanical Ventilator 40 98.1 10/20/17 19:03 89 25 40 10/20/17 19:00 91 10/20/17 18:00 100.6 10/20/17 17:30 116 118/59 10/20/17 17:30 102.9 10/20/17 17:00 101.2 116 22 100 Mechanical Ventilator 40 101.2 10/20/17 16:41 104 21 40 10/20/17 16:00 128 10/20/17 16:00 102.9 120 22 118/59 100 Mechanical Ventilator 40 102.9 10/20/17 16:00 40 Height (Feet): 5 Height (Inches): 4.00 Weight (Pounds): 89 HEENT: mucous membranes moist Respiratory/Chest: no accessory muscle use Cardiovascular: regularly irregular Abdomen: no organomegaly Microbiology Date/Time Source Procedure Growth Status 10/20/17 18:00 Indwelling Cath Urine Culture - Preliminary NO GROWTH Resulted Laboratory Tests Test 10/21/17 03:20 White Blood Count 21.6 K/UL (4.8-10.8) #H Red Blood Count 2.93 M/UL (4.20-5.40) L Hemoglobin 9.4 G/DL (12.0-16.0) L Hematocrit 28.2 % (37.0-47.0) L Mean Corpuscular Volume 96 FL (80-99) Mean Corpuscular Hemoglobin 32.1 PG (27.0-31.0) H Mean Corpuscular Hemoglobin Concent 33.4 G/DL (32.0-36.0) Red Cell Distribution Width 16.2 % (11.6-14.8) H Platelet Count 145 K/UL (150-450) L Mean Platelet Volume 8.8 FL (6.5-10.1) Neutrophils (%) (Auto) % (45.0-75.0) Lymphocytes (%) (Auto) % (20.0-45.0) Monocytes (%) (Auto) % (1.0-10.0) Eosinophils (%) (Auto) % (0.0-3.0) Basophils (%) (Auto) % (0.0-2.0) Differential Total Cells Counted 100 Neutrophils % (Manual) 89 % (45-75) H Lymphocytes % (Manual) 3 % (20-45) L Monocytes % (Manual) 4 % (1-10) Eosinophils % (Manual) 0 % (0-3) Basophils % (Manual) 0 % (0-2) Band Neutrophils 4 % (0-8) Platelet Estimate Decreased L Platelet Morphology Normal Anisocytosis 1+ Prothrombin Time 11.3 SEC (9.30-11.50) Prothromb Time International Ratio 1.1 (0.9-1.1) Sodium Level 137 MMOL/L (136-145) Potassium Level 4.1 MMOL/L (3.5-5.1) Chloride Level 98 MMOL/L (98-107) Carbon Dioxide Level 30 MMOL/L (21-32) Anion Gap 9 mmol/L (5-15) Blood Urea Nitrogen 35 mg/dL (7-18) H Creatinine 0.8 MG/DL (0.55-1.30) Estimat Glomerular Filtration Rate mL/min (>60) Glucose Level 112 MG/DL (74-106) H Calcium Level 8.5 MG/DL (8.5-10.1) Phosphorus Level 4.8 MG/DL (2.5-4.9) Magnesium Level 2.0 MG/DL (1.8-2.4) Total Bilirubin 5.7 MG/DL (0.2-1.0) H Direct Bilirubin 4.9 MG/DL (0.0-0.3) H Aspartate Amino Transf (AST/SGOT) 226 U/L (15-37) H Alanine Aminotransferase (ALT/SGPT) 166 U/L (12-78) H Alkaline Phosphatase 2489 U/L (46-116) H Total Protein 7.0 G/DL (6.4-8.2) Albumin 2.0 G/DL (3.4-5.0) L Globulin 5.0 g/dL Albumin/Globulin Ratio 0.4 (1.0-2.7) L Current Medications Medications (Trade) Dose Ordered Sig/Hermes Route PRN Reason Start Time Stop Time Status Last Admin Dose Admin Acetaminophen (Tylenol) 650 mg Q6H PRN NG Fever/Headache/Mild Pain 10/14/17 17:00 11/10/17 16:59 10/20/17 17:30 Clotrimazole (Lotrimin) 1 applic EVERY 12 HOURS TOPIC 10/14/17 21:00 11/09/17 22:59 10/21/17 08:00 Dextrose (Dextrose 50%) 25 ml STAT PRN IV Hypoglycemia 10/18/17 08:30 11/17/17 08:29 Dextrose (Dextrose 50%) 50 ml STAT PRN IV Hypoglycemia 10/18/17 08:30 11/17/17 08:29 Diltiazem HCl (Cardizem) 30 mg BID NG 10/14/17 18:00 11/10/17 08:59 10/20/17 17:30 Furosemide (Lasix) 40 mg DAILY IV 10/15/17 09:00 11/12/17 08:59 10/21/17 08:05 Insulin Aspart (NovoLOG) Q6HR SUBQ 10/18/17 12:00 11/17/17 11:59 10/21/17 11:36 Ketotifen Fumarate (Zatidor) 1 drop DAILY BOTH EYES 10/15/17 09:00 10/25/17 08:59 10/21/17 08:00 Morphine Sulfate (Morphine Sulfate) 1 mg Q4HR PRN IVP Moderate Pain (Pain Scale 4-6) 10/18/17 18:15 10/25/17 11:44 Morphine Sulfate (Morphine Sulfate) 2 mg Q4H PRN IVP Severe Pain (Pain Scale 7-10) 10/18/17 18:30 10/25/17 18:29 10/20/17 09:07 Pantoprazole (Protonix) 40 mg DAILY IVP 10/15/17 09:00 11/01/17 08:59 10/21/17 08:05 Piperacillin Sod/ Tazobactam Sod 3.375 gm/Dextrose 110 ml @ 220 mls/hr EVERY 8 HOURS IVPB 10/21/17 14:00 10/28/17 13:59 Vancomycin HCl (Vanco rx to dose) 1 ea DAILY PRN MISC Per rx protocol 10/20/17 17:15 11/19/17 17:14 Vancomycin HCl 500 mg/Dextrose 110 ml @ 110 mls/hr Q12H IVPB 10/21/17 11:00 10/26/17 10:59 10/21/17 11:14 Edis Hunter MD Oct 21, 2017 15:05
[2017-10-21] MEDS ORDERED: Tubing IV Secondary IV ONE (15:57)
[2017-10-21] MEDS ORDERED: D5 1/2NS 1000ml IV ONE (15:57)
[2017-10-21] MEDS ORDERED: Tubing Blood Filter IV ONE (15:57)
[2017-10-21] MEDS ORDERED: NS 275ml ONE (15:57)
[2017-10-21 16:05] VITALS: BP 106/55
--- NOTE | 2017-10-21 17:31 | Internal Med Progress Note ---
Subjective Date of Service: Oct 21, 2017 Physician Name Sina Bowens Attending Physician Jesus Barahona MD Current Medications Medications (Trade) Dose Ordered Sig/Hermes Route PRN Reason Start Time Stop Time Status Last Admin Dose Admin Acetaminophen (Tylenol) 650 mg Q6H PRN NG Fever/Headache/Mild Pain 10/14/17 17:00 11/10/17 16:59 10/20/17 17:30 Clotrimazole (Lotrimin) 1 applic EVERY 12 HOURS TOPIC 10/14/17 21:00 11/09/17 22:59 10/21/17 08:00 Dextrose (Dextrose 50%) 25 ml STAT PRN IV Hypoglycemia 10/18/17 08:30 11/17/17 08:29 Dextrose (Dextrose 50%) 50 ml STAT PRN IV Hypoglycemia 10/18/17 08:30 11/17/17 08:29 Diltiazem HCl (Cardizem) 30 mg BID NG 10/14/17 18:00 11/10/17 08:59 10/20/17 17:30 Insulin Aspart (NovoLOG) Q6HR SUBQ 10/18/17 12:00 11/17/17 11:59 10/21/17 11:36 Ketotifen Fumarate (Zatidor) 1 drop DAILY BOTH EYES 10/15/17 09:00 10/25/17 08:59 10/21/17 08:00 Morphine Sulfate (Morphine Sulfate) 1 mg Q4HR PRN IVP Moderate Pain (Pain Scale 4-6) 10/18/17 18:15 10/25/17 11:44 Morphine Sulfate (Morphine Sulfate) 2 mg Q4H PRN IVP Severe Pain (Pain Scale 7-10) 10/18/17 18:30 10/25/17 18:29 10/20/17 09:07 Pantoprazole (Protonix) 40 mg DAILY IVP 10/15/17 09:00 11/01/17 08:59 10/21/17 08:05 Piperacillin Sod/ Tazobactam Sod 3.375 gm/Dextrose 110 ml @ 220 mls/hr EVERY 8 HOURS IVPB 10/21/17 14:00 10/28/17 13:59 10/21/17 15:01 Vancomycin HCl (Vanco rx to dose) 1 ea DAILY PRN MISC Per rx protocol 10/20/17 17:15 11/19/17 17:14 Vancomycin HCl 500 mg/Dextrose 110 ml @ 110 mls/hr Q12H IVPB 10/21/17 11:00 10/26/17 10:59 10/21/17 11:14 Allergies: Coded Allergies: No Known Allergies (Verified , 11/18/08) ROS Limited/Unobtainable: Yes Subjective 76 YO F admitted with Shortness of breath, now respiratory failure. Intubated and sedated. Cover for Internal Med-Dr. Barahona. RAJINDER . S/P ERCP 10/08/17. S/P Tracheostomy and bronchoscopy 10/13/17. Await transfer to [facility] Objective Last Vital Signs Date Time Temp Pulse Resp B/P (MAP) Pulse Ox O2 Delivery O2 Flow Rate FiO2 10/21/17 17:07 94 21 40 10/21/17 16:05 98.6 106/55 100 Mechanical Ventilator 98.6 Laboratory Tests Test 10/21/17 03:20 White Blood Count 21.6 K/UL (4.8-10.8) #H Red Blood Count 2.93 M/UL (4.20-5.40) L Hemoglobin 9.4 G/DL (12.0-16.0) L Hematocrit 28.2 % (37.0-47.0) L Mean Corpuscular Volume 96 FL (80-99) Mean Corpuscular Hemoglobin 32.1 PG (27.0-31.0) H Mean Corpuscular Hemoglobin Concent 33.4 G/DL (32.0-36.0) Red Cell Distribution Width 16.2 % (11.6-14.8) H Platelet Count 145 K/UL (150-450) L Mean Platelet Volume 8.8 FL (6.5-10.1) Neutrophils (%) (Auto) % (45.0-75.0) Lymphocytes (%) (Auto) % (20.0-45.0) Monocytes (%) (Auto) % (1.0-10.0) Eosinophils (%) (Auto) % (0.0-3.0) Basophils (%) (Auto) % (0.0-2.0) Differential Total Cells Counted 100 Neutrophils % (Manual) 89 % (45-75) H Lymphocytes % (Manual) 3 % (20-45) L Monocytes % (Manual) 4 % (1-10) Eosinophils % (Manual) 0 % (0-3) Basophils % (Manual) 0 % (0-2) Band Neutrophils 4 % (0-8) Platelet Estimate Decreased L Platelet Morphology Normal Anisocytosis 1+ Prothrombin Time 11.3 SEC (9.30-11.50) Prothromb Time International Ratio 1.1 (0.9-1.1) Sodium Level 137 MMOL/L (136-145) Potassium Level 4.1 MMOL/L (3.5-5.1) Chloride Level 98 MMOL/L (98-107) Carbon Dioxide Level 30 MMOL/L (21-32) Anion Gap 9 mmol/L (5-15) Blood Urea Nitrogen 35 mg/dL (7-18) H Creatinine 0.8 MG/DL (0.55-1.30) Estimat Glomerular Filtration Rate mL/min (>60) Glucose Level 112 MG/DL (74-106) H Calcium Level 8.5 MG/DL (8.5-10.1) Phosphorus Level 4.8 MG/DL (2.5-4.9) Magnesium Level 2.0 MG/DL (1.8-2.4) Total Bilirubin 5.7 MG/DL (0.2-1.0) H Direct Bilirubin 4.9 MG/DL (0.0-0.3) H Aspartate Amino Transf (AST/SGOT) 226 U/L (15-37) H Alanine Aminotransferase (ALT/SGPT) 166 U/L (12-78) H Alkaline Phosphatase 2489 U/L (46-116) H Total Protein 7.0 G/DL (6.4-8.2) Albumin 2.0 G/DL (3.4-5.0) L Globulin 5.0 g/dL Albumin/Globulin Ratio 0.4 (1.0-2.7) L Microbiology Date/Time Source Procedure Growth Status 10/20/17 18:00 Indwelling Cath Urine Culture - Preliminary NO GROWTH Resulted Intake and Output 10/20/17 10/21/17 19:00 07:00 Intake Total 800 ml 947.5 ml Output Total 1400 ml 150 ml Balance -600 ml 797.5 ml Free Water 250 ml 100 ml IV Total 247.5 ml Tube Feeding 550 ml 600 ml Output Urine Total 1400 ml 150 ml # Bowel Movements 2 Objective General Appearance: lethargic, thin EENT: normal ENT inspection Neck: Trach; non-tender, normal alignment, supple Cardiovascular: normal peripheral pulses, normal rate, regular rhythm, no gallop/murmur, no JVD Respiratory/Chest: Mechanical vent; trach; ; respiratory distress, crackles/ rales, rhonchi - bilaterally, expiratory wheezing Abdomen: normal bowel sounds, non tender, soft, no organomegaly, no mass Skin: normal pigmentation, warm/dry Assessment/Plan Problem List: (1) HTN (hypertension) Assessment & Plan: Currently hypotensive. (2) Arthritis, rheumatoid (3) Parkinsons disease (4) Aplastic anemia (5) GERD (gastroesophageal reflux disease) (6) Respiratory failure Assessment & Plan: S/P Tracheostomy and broncholsopy 10/13/17. Cont vent per pulmonary (7) Pneumonia (8) Dyspnea (9) Sepsis Assessment & Plan: Blood culture neg. Continue Amikacin, micafungin and flagyl per ID (10) ARDS (adult respiratory distress syndrome) Assessment & Plan: See pulmonary note (11) UTI (urinary tract infection) Assessment & Plan: E.Coli. Continue abx per ID (12) Anemia Assessment & Plan: S/P Transfusion 4 units PRBC (13) Diabetes mellitus, type II Assessment & Plan: Continue novolog sliding scale (14) Leukocytosis Assessment & Plan: Worsening. See ID note. Start amikacin and fluconazole (15) Thrombocytopenia (16) Gallbladder sludge Assessment & Plan: s/P ERCP 10/01, 10/07/17 and 10/08/17 (17) Coagulopathy Assessment & Plan: S/P FFP and Vit K Assessment/Plan Discharge planning: [facility] fac SINA BOWENS Oct 21, 2017 17:31
--- NOTE | 2017-10-21 18:32 | General Progress Note ---
Assessment/Plan Problem List: (1) Arthritis, rheumatoid ICD Codes: M06.9 - Rheumatoid arthritis, unspecified SNOMED: 50018169 (2) Aspiration pneumonia ICD Codes: J69.0 - Pneumonitis due to inhalation of food and vomit SNOMED: 498857462 (3) Diabetes mellitus ICD Codes: E11.9 - Type 2 diabetes mellitus without complications SNOMED: 69358219 (4) ARDS (adult respiratory distress syndrome) ICD Codes: J80 - Acute respiratory distress syndrome SNOMED: 89974579 (5) Transaminitis ICD Codes: R74.0 - Nonspecific elevation of levels of transaminase and lactic acid dehydrogenase [LDH] SNOMED: 154927000, 658904428 (6) Dyspnea ICD Codes: R06.00 - Dyspnea, unspecified SNOMED: 721002067 (7) Parkinsons disease ICD Codes: G20 - Parkinson's disease SNOMED: 78871849 (8) Sepsis ICD Codes: A41.9 - Sepsis, unspecified organism SNOMED: 73009207 (9) GERD (gastroesophageal reflux disease) ICD Codes: K21.9 - Gastro-esophageal reflux disease without esophagitis SNOMED: 833423033 (10) Aplastic anemia ICD Codes: D61.9 - Aplastic anemia, unspecified SNOMED: 181303138 (11) Pneumonia ICD Codes: J18.9 - Pneumonia, unspecified organism SNOMED: 634152342 (12) HTN (hypertension) ICD Codes: I10 - Essential (primary) hypertension SNOMED: 07685463 Assessment/Plan Encephalopathy, agitation, psychotic disorder. -cont current meds -ativan prn Subjective 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: Reports: anxiety Allergies: Coded Allergies: No Known Allergies (Verified , 11/18/08) Subjective more alert however anxious and not following commands Objective Last 24 Hour Vital Signs Date Time Temp Pulse Resp B/P (MAP) Pulse Ox O2 Delivery O2 Flow Rate FiO2 10/21/17 17:58 94 106/55 10/21/17 17:07 94 21 40 10/21/17 16:05 98.6 87 20 106/55 100 Mechanical Ventilator 40 98.6 10/21/17 16:00 40 10/21/17 15:27 101 25 40 10/21/17 15:16 105 10/21/17 14:00 40 10/21/17 13:26 94 33 40 10/21/17 12:00 40 10/21/17 11:34 93 10/21/17 11:26 98.7 93 20 108/56 100 Mechanical Ventilator 40 98.7 10/21/17 11:19 97 21 40 10/21/17 09:02 100 23 40 10/21/17 09:00 93 108/56 10/21/17 08:00 40 10/21/17 07:58 97.9 104 24 101/52 99 Mechanical Ventilator 40 97.9 10/21/17 07:47 106 26 40 10/21/17 07:28 115 10/21/17 06:53 113 27 40 10/21/17 04:38 92 28 40 10/21/17 04:05 119 10/21/17 04:00 97.6 108 24 100/54 100 Mechanical Ventilator 40 97.6 10/21/17 04:00 40 10/21/17 03:03 89 26 40 10/21/17 00:30 81 22 40 10/21/17 00:00 97.9 80 26 100/52 100 Mechanical Ventilator 40 97.9 10/21/17 00:00 40 10/20/17 23:25 86 10/20/17 22:56 84 24 40 10/20/17 20:58 82 23 40 10/20/17 20:00 40 10/20/17 20:00 98.1 81 20 107/44 100 Mechanical Ventilator 40 98.1 10/20/17 19:03 89 25 40 10/20/17 19:00 91 Intake and Output 10/20/17 10/21/17 19:00 07:00 Intake Total 800 ml 947.5 ml Output Total 1400 ml 150 ml Balance -600 ml 797.5 ml Free Water 250 ml 100 ml IV Total 247.5 ml Tube Feeding 550 ml 600 ml Output Urine Total 1400 ml 150 ml # Bowel Movements 2 Laboratory Tests 10/21/17 03:20: White Blood Count 21.6#H, Red Blood Count 2.93L, Hemoglobin 9.4L, Hematocrit 28.2L, Mean Corpuscular Volume 96, Mean Corpuscular Hemoglobin 32.1H, Mean Corpuscular Hemoglobin Concent 33.4, Red Cell Distribution Width 16.2H, Platelet Count 145L, Mean Platelet Volume 8.8, Neutrophils (%) (Auto) , Lymphocytes (%) (Auto) , Monocytes (%) (Auto) , Eosinophils (%) (Auto) , Basophils (%) (Auto) , Differential Total Cells Counted 100, Neutrophils % ( Manual) 89H, Lymphocytes % (Manual) 3L, Monocytes % (Manual) 4, Eosinophils % ( Manual) 0, Basophils % (Manual) 0, Band Neutrophils 4, Platelet Estimate DecreasedL, Platelet Morphology Normal, Anisocytosis 1+, Prothrombin Time 11.3, Prothromb Time International Ratio 1.1, Sodium Level 137, Potassium Level 4.1, Chloride Level 98, Carbon Dioxide Level 30, Anion Gap 9, Blood Urea Nitrogen 35H , Creatinine 0.8, Estimat Glomerular Filtration Rate , Glucose Level 112H, Calcium Level 8.5, Phosphorus Level 4.8, Magnesium Level 2.0, Total Bilirubin 5.7H, Direct Bilirubin 4.9H, Aspartate Amino Transf (AST/SGOT) 226H, Alanine Aminotransferase (ALT/SGPT) 166H, Alkaline Phosphatase 2489H, Total Protein 7.0 , Albumin 2.0L, Globulin 5.0, Albumin/Globulin Ratio 0.4L Height (Feet): 5 Height (Inches): 4.00 Weight (Pounds): 89 General Appearance: no apparent distress, alert, confused, agitated Dary Nixon M.D. Oct 21, 2017 18:32
[2017-10-21 20:00] VITALS: BP 106/55
--- NOTE | 2017-10-21 20:20 | General Progress Note ---
Assessment/Plan Assessment/Plan Assessment - Resp failure / ARDS / PNA - s/p trach - Abnormal LFT, Biliary obstruction - s/p stent - ? biliary sludge, - ? poorly draining stent, - ? intrahepatic cholestasis, - no current suspect drugs at this time but has been on a number of abx associated with cholestasis - ? infiltrative d/o - Jaundice - Anemia with OB (+) stools - coagulopathy - improved - Malnutrition - s/p PEG - AMS - improved - CMV PCR (+) Recommendations - follow labs - continue TF - Minimize medication use, given LFT changes - transfuse PRN - Elevate HOB - Vent care - Monitor labs - follow LFT - Repeat ERCP Friday Subjective Allergies: Coded Allergies: No Known Allergies (Verified , 11/18/08) Subjective Above noted tolerating TF Alk phos and Bili rising d/w family yesterday - agreed to ERCP tomorrow Objective Last 24 Hour Vital Signs Date Time Temp Pulse Resp B/P (MAP) Pulse Ox O2 Delivery O2 Flow Rate FiO2 10/21/17 17:58 94 106/55 10/21/17 17:07 94 21 40 10/21/17 16:05 98.6 87 20 106/55 100 Mechanical Ventilator 40 98.6 10/21/17 16:00 40 10/21/17 15:27 101 25 40 10/21/17 15:16 105 10/21/17 14:00 40 10/21/17 13:26 94 33 40 10/21/17 12:00 40 10/21/17 11:34 93 10/21/17 11:26 98.7 93 20 108/56 100 Mechanical Ventilator 40 98.7 10/21/17 11:19 97 21 40 10/21/17 09:02 100 23 40 10/21/17 09:00 93 108/56 10/21/17 08:00 40 10/21/17 07:58 97.9 104 24 101/52 99 Mechanical Ventilator 40 97.9 10/21/17 07:47 106 26 40 10/21/17 07:28 115 10/21/17 06:53 113 27 40 10/21/17 04:38 92 28 40 10/21/17 04:05 119 10/21/17 04:00 97.6 108 24 100/54 100 Mechanical Ventilator 40 97.6 10/21/17 04:00 40 10/21/17 03:03 89 26 40 10/21/17 00:30 81 22 40 10/21/17 00:00 97.9 80 26 100/52 100 Mechanical Ventilator 40 97.9 10/21/17 00:00 40 10/20/17 23:25 86 10/20/17 22:56 84 24 40 10/20/17 20:58 82 23 40 Intake and Output 10/20/17 10/21/17 19:00 07:00 Intake Total 800 ml 947.5 ml Output Total 1400 ml 150 ml Balance -600 ml 797.5 ml Free Water 250 ml 100 ml IV Total 247.5 ml Tube Feeding 550 ml 600 ml Output Urine Total 1400 ml 150 ml # Bowel Movements 2 Laboratory Tests 10/21/17 03:20: White Blood Count 21.6#H, Red Blood Count 2.93L, Hemoglobin 9.4L, Hematocrit 28.2L, Mean Corpuscular Volume 96, Mean Corpuscular Hemoglobin 32.1H, Mean Corpuscular Hemoglobin Concent 33.4, Red Cell Distribution Width 16.2H, Platelet Count 145L, Mean Platelet Volume 8.8, Neutrophils (%) (Auto) , Lymphocytes (%) (Auto) , Monocytes (%) (Auto) , Eosinophils (%) (Auto) , Basophils (%) (Auto) , Differential Total Cells Counted 100, Neutrophils % ( Manual) 89H, Lymphocytes % (Manual) 3L, Monocytes % (Manual) 4, Eosinophils % ( Manual) 0, Basophils % (Manual) 0, Band Neutrophils 4, Platelet Estimate DecreasedL, Platelet Morphology Normal, Anisocytosis 1+, Prothrombin Time 11.3, Prothromb Time International Ratio 1.1, Sodium Level 137, Potassium Level 4.1, Chloride Level 98, Carbon Dioxide Level 30, Anion Gap 9, Blood Urea Nitrogen 35H , Creatinine 0.8, Estimat Glomerular Filtration Rate , Glucose Level 112H, Calcium Level 8.5, Phosphorus Level 4.8, Magnesium Level 2.0, Total Bilirubin 5.7H, Direct Bilirubin 4.9H, Aspartate Amino Transf (AST/SGOT) 226H, Alanine Aminotransferase (ALT/SGPT) 166H, Alkaline Phosphatase 2489H, Total Protein 7.0 , Albumin 2.0L, Globulin 5.0, Albumin/Globulin Ratio 0.4L Height (Feet): 5 Height (Inches): 4.00 Weight (Pounds): 89 Objective WDWN NCAT supple, (+) trach CTA RRR abd soft , (+) GT (+) LE edema opens eyes ARNULFO DURON Oct 21, 2017 20:20
[2017-10-21] MEDS ORDERED: Phytonadione 10 mg/mL 1ml amp SUBQ ONE (20:30)
--- NOTE | 2017-10-21 23:26 | General Progress Note ---
Assessment/Plan Assessment/Plan #. Sepsis. --> Leukocytosis likely related to underlying pneumonia infection. --> Wbc count elevated and worsened from yesterday. --> On Iv antibiotics. Monitor for improvement. #. Coagulopathy - potentially related to DIC early onset, review hapto, inr repeat, fibrinogen, DIC panel --> S/P FFP and Vit K --> DW pulm Dr. Parekh --> Likely related to infection versus other cause. On antibiotics. --> Prophylaxis. #. Anemia due to underlying chronic disease. Continue to closely monitor. --> Hemoglobin goal is above 7. --> S/P blood transfusion as hemoglobin levels fell low. --> Occult blood detected. Consider GI recs. --> Transfuse as necessary --> Blood transfusion not required unless symptomatic or hgb below goal. #. Pancytopenia --> WBC count and platelet counts are within normal levels now. --> Hemoglobin levels downtrended. Transfuse if continues to drop. --> S/P Platelet transfusion --> Monitor and trend cbc daily. #. Thrombocytopenia, severe and progressive, acute onset, likely secondary to underlying infection, aspiration, hit was negative --> Duplex of the lower extremities is negative, therefore less likely HIT and other causes are more likely such as underlying infection. --> Platelets goal >20k, transfuse if necessary. --> On antibiotics as per ID --> Platelet count has been downtrending, monitor closely. #. Respiratory failure, vent dependent --> acute respiratory distress syndrome. --> S/P tracheostomy. Cont vent per pulmonary. #. Community-acquired pneumonia versus hospital-acquired. --> The patient on broad-spectrum antibiotics. --> Improved. --> Urine culture growing E. coli. Continue to closely monitor. #. Transaminitis. She has been seen by GI Service. Continue to closely monitor. #. Low-grade fever. Closely observe. #. Encephalopathy. Parkinson's Disease. #. Diabetes mellitus II. #. Tube feeding. #. Hypertension. --> Currently hypotensive. Subjective Date patient seen: Oct 21, 2017 Constitutional: Denies: no symptoms, chills, diaphoresis, fever, malaise, weakness, other HEENT: Denies: no symptoms, eye pain, blurred vision, tearing, double vision, ear pain, ear discharge, nose pain, nose congestion, throat pain, throat swelling, mouth pain, mouth swelling, other Cardiovascular: Denies: no symptoms, chest pain, edema, irregular heart rate, lightheadedness, palpitations, syncope, other Respiratory: Denies: no symptoms, cough, orthopnea, shortness of breath, SOB with excertion, SOB at rest, sputum, stridor, wheezing, other Gastrointestinal/Abdominal: Denies: no symptoms, abdomen distended, abdominal pain, black stools, tarry stools, blood in stool, constipated, diarrhea, difficulty swallowing, nausea, poor appetite, poor fluid intake, rectal bleeding , vomiting, other Genitourinary: Denies: no symptoms, burning, discharge, frequency, flank pain, hematuria, incontinence, pain, urgency, other 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: Denies: no symptoms, anxiety, depressed, emotional problems, headache, numbness, paresthesia, pre-existing deficit, seizure, tingling, tremors, weakness, other Hematologic/Lymphatic: Reports: anemia Allergies: Coded Allergies: No Known Allergies (Verified , 11/18/08) Subjective Intubated and sedated. Hypotensive. Leukocytosis worsened overnight. Objective Last 24 Hour Vital Signs Date Time Temp Pulse Resp B/P (MAP) Pulse Ox O2 Delivery O2 Flow Rate FiO2 10/21/17 21:30 90 25 40 10/21/17 20:00 98.6 98 19 106/55 100 Mechanical Ventilator 40 98.6 10/21/17 20:00 107 10/21/17 20:00 40 10/21/17 19:30 101 30 40 10/21/17 17:58 94 106/55 10/21/17 17:07 94 21 40 10/21/17 16:05 98.6 87 20 106/55 100 Mechanical Ventilator 40 98.6 10/21/17 16:00 40 10/21/17 15:27 101 25 40 10/21/17 15:16 105 10/21/17 14:00 40 10/21/17 13:26 94 33 40 10/21/17 12:00 40 10/21/17 11:34 93 10/21/17 11:26 98.7 93 20 108/56 100 Mechanical Ventilator 40 98.7 10/21/17 11:19 97 21 40 10/21/17 09:02 100 23 40 10/21/17 09:00 93 108/56 10/21/17 08:00 40 10/21/17 07:58 97.9 104 24 101/52 99 Mechanical Ventilator 40 97.9 10/21/17 07:47 106 26 40 10/21/17 07:28 115 10/21/17 06:53 113 27 40 10/21/17 04:38 92 28 40 10/21/17 04:05 119 10/21/17 04:00 97.6 108 24 100/54 100 Mechanical Ventilator 40 97.6 10/21/17 04:00 40 10/21/17 03:03 89 26 40 10/21/17 00:30 81 22 40 10/21/17 00:00 97.9 80 26 100/52 100 Mechanical Ventilator 40 97.9 10/21/17 00:00 40 10/20/17 23:25 86 Intake and Output 10/20/17 10/21/17 19:00 07:00 Intake Total 800 ml 947.5 ml Output Total 1400 ml 150 ml Balance -600 ml 797.5 ml Free Water 250 ml 100 ml IV Total 247.5 ml Tube Feeding 550 ml 600 ml Output Urine Total 1400 ml 150 ml # Bowel Movements 2 Laboratory Tests 10/21/17 03:20: White Blood Count 21.6#H, Red Blood Count 2.93L, Hemoglobin 9.4L, Hematocrit 28.2L, Mean Corpuscular Volume 96, Mean Corpuscular Hemoglobin 32.1H, Mean Corpuscular Hemoglobin Concent 33.4, Red Cell Distribution Width 16.2H, Platelet Count 145L, Mean Platelet Volume 8.8, Neutrophils (%) (Auto) , Lymphocytes (%) (Auto) , Monocytes (%) (Auto) , Eosinophils (%) (Auto) , Basophils (%) (Auto) , Differential Total Cells Counted 100, Neutrophils % ( Manual) 89H, Lymphocytes % (Manual) 3L, Monocytes % (Manual) 4, Eosinophils % ( Manual) 0, Basophils % (Manual) 0, Band Neutrophils 4, Platelet Estimate DecreasedL, Platelet Morphology Normal, Anisocytosis 1+, Prothrombin Time 11.3, Prothromb Time International Ratio 1.1, Sodium Level 137, Potassium Level 4.1, Chloride Level 98, Carbon Dioxide Level 30, Anion Gap 9, Blood Urea Nitrogen 35H , Creatinine 0.8, Estimat Glomerular Filtration Rate , Glucose Level 112H, Calcium Level 8.5, Phosphorus Level 4.8, Magnesium Level 2.0, Total Bilirubin 5.7H, Direct Bilirubin 4.9H, Aspartate Amino Transf (AST/SGOT) 226H, Alanine Aminotransferase (ALT/SGPT) 166H, Alkaline Phosphatase 2489H, Total Protein 7.0 , Albumin 2.0L, Globulin 5.0, Albumin/Globulin Ratio 0.4L Height (Feet): 5 Height (Inches): 4.00 Weight (Pounds): 89 General Appearance: confused Respiratory/Chest: decreased breath sounds Johnny Sinha MD Oct 21, 2017 23:26
[2017-10-22] VITALS (10 sets, daily range): BP systolic 100–151; BP diastolic 51–72
[2017-10-22] MEDS: NovoLOG Insulin Flexpen SUBQ SCH ×4 (05:04→23:02)
[2017-10-22] MEDS: Piperacillin/Tazobactam 3.375 GM in D5W 110 ML IVPB SCH ×3 (05:11→21:16)
[2017-10-22 06:00] LABS: INR 1.1 (0.9-1.1)
[2017-10-22 06:21] LABS: ALANINE AMINOTRANSFERASE 230 U/L (12-78); ALBUMIN/GLOBULIN RATIO 0.4 (1.0-2.7); ALKALINE PHOSPHATASE 2214 U/L (46-116); ANION GAP 11 mmol/L (5-15); ASPARTATE AMINO TRANSFERASE 367 U/L (15-37); BLOOD UREA NITROGEN 36 mg/dL (7-18); CALCIUM 8.1 MG/DL (8.5-10.1); CARBON DIOXIDE 29 MMOL/L (21-32); CHLORIDE 99 MMOL/L (98-107); CREATININE 0.9 MG/DL (0.55-1.30); PHOSPHORUS 3.3 MG/DL (2.5-4.9); POTASSIUM 3.2 MMOL/L (3.5-5.1); SODIUM 139 MMOL/L (136-145)
[2017-10-22 06:53] LABS: BASOPHILS % (AUTO) 0.8 % (0.0-2.0); EOSINOPHILS % (AUTO) 1.8 % (0.0-3.0); HEMATOCRIT 25.3 % (37.0-47.0); HEMOGLOBIN 8.4 G/DL (12.0-16.0); LYMPHOCYTES % (AUTO) 14.9 % (20.0-45.0); MEAN CORPUSCULAR VOLUME 96 FL (80-99); MONOCYTES % (AUTO) 9.8 % (1.0-10.0); NEUTROPHILS % (AUTO) 72.6 % (45.0-75.0); PLATELET COUNT 142 K/UL (150-450); RED BLOOD COUNT 2.62 M/UL (4.20-5.40); RED CELL DISTRIBUTION WIDTH 16.3 % (11.6-14.8); WHITE BLOOD COUNT 12.7 K/UL (4.8-10.8)
[2017-10-22] MEDS: Pantoprazole Inj IVP SCH (08:51)
[2017-10-22] MEDS: dilTIAZem HCl 30mg tab NG SCH ×2 (08:51→17:09)
--- NOTE | 2017-10-22 09:33 | General Progress Note ---
Assessment/Plan Assessment/Plan Assessment - Resp failure / ARDS / PNA - s/p trach - Abnormal LFT, Biliary obstruction - s/p stent - ? biliary sludge, - ? poorly draining stent, - ? intrahepatic cholestasis, - no current suspect drugs at this time but has been on a number of abx associated with cholestasis - ? infiltrative d/o - Jaundice - Anemia with OB (+) stools - coagulopathy - improved - Malnutrition - s/p PEG - AMS - improved - CMV PCR (+) Recommendations - follow labs - continue TF - Minimize medication use, given LFT changes - transfuse PRN - Elevate HOB - Vent care - Monitor labs - follow LFT - Repeat ERCP today Subjective Allergies: Coded Allergies: No Known Allergies (Verified , 11/18/08) Subjective Above noted off feeds WBC lower today for ERCP Objective Last 24 Hour Vital Signs Date Time Temp Pulse Resp B/P (MAP) Pulse Ox O2 Delivery O2 Flow Rate FiO2 10/22/17 08:51 81 104/55 10/22/17 08:00 97.9 84 18 104/55 100 Mechanical Ventilator 40 97.9 10/22/17 08:00 81 10/22/17 08:00 40 10/22/17 07:29 84 19 40 10/22/17 04:45 93 18 40 10/22/17 04:00 40 10/22/17 04:00 99 10/22/17 04:00 98.1 91 18 102/52 100 Mechanical Ventilator 40 98.1 10/22/17 03:30 101 34 40 10/22/17 01:30 103 35 40 10/22/17 00:00 97.9 100 25 100/51 100 Mechanical Ventilator 40 97.9 10/22/17 00:00 93 10/22/17 00:00 40 10/21/17 23:30 94 22 40 10/21/17 21:30 90 25 40 10/21/17 20:00 98.6 98 19 106/55 100 Mechanical Ventilator 40 98.6 10/21/17 20:00 107 10/21/17 20:00 40 10/21/17 19:30 101 30 40 10/21/17 17:58 94 106/55 10/21/17 17:07 94 21 40 10/21/17 16:05 98.6 87 20 106/55 100 Mechanical Ventilator 40 98.6 10/21/17 16:00 40 10/21/17 15:27 101 25 40 10/21/17 15:16 105 10/21/17 14:00 40 10/21/17 13:26 94 33 40 10/21/17 12:00 40 10/21/17 11:34 93 10/21/17 11:26 98.7 93 20 108/56 100 Mechanical Ventilator 40 98.7 10/21/17 11:19 97 21 40 Intake and Output 10/21/17 10/22/17 18:59 06:59 Intake Total 1075.0 ml 950 ml Output Total 550 ml 300 ml Balance 525.0 ml 650 ml Free Water 200 ml 100 ml IV Total 275.0 ml 550 ml Tube Feeding 600 ml 300 ml Output Urine Total 550 ml 300 ml # Bowel Movements 4 5 Laboratory Tests 10/22/17 03:30: White Blood Count 12.7H, Red Blood Count 2.62L, Hemoglobin 8.4L, Hematocrit 25.3L, Mean Corpuscular Volume 96, Mean Corpuscular Hemoglobin 32.2H, Mean Corpuscular Hemoglobin Concent 33.4, Red Cell Distribution Width 16.3H, Platelet Count 142L, Mean Platelet Volume 8.8, Neutrophils (%) (Auto) 72.6, Lymphocytes (%) (Auto) 14.9L, Monocytes (%) (Auto) 9.8, Eosinophils (%) (Auto) 1.8, Basophils (%) (Auto) 0.8, Prothrombin Time 11.1, Prothromb Time International Ratio 1.1, Sodium Level 139, Potassium Level 3.2L, Chloride Level 99, Carbon Dioxide Level 29, Anion Gap 11, Blood Urea Nitrogen 36H, Creatinine 0.9, Estimat Glomerular Filtration Rate , Glucose Level 81, Calcium Level 8.1L, Phosphorus Level 3.3, Magnesium Level 2.2, Total Bilirubin 6.0H, Direct Bilirubin 5.0H, Aspartate Amino Transf (AST/SGOT) 367H, Alanine Aminotransferase (ALT/SGPT) 230H, Alkaline Phosphatase 2214H, Total Protein 7.1 , Albumin 2.0L, Globulin 5.1, Albumin/Globulin Ratio 0.4L Height (Feet): 5 Height (Inches): 4.00 Weight (Pounds): 82 Objective WDWN NCAT supple, (+) trach CTA RRR abd soft , (+) GT (+) LE edema opens eyes ARNULFO DURON Oct 22, 2017 09:32
--- NOTE | 2017-10-22 10:35 | Pre-Procedure Note/Attestation ---
Pre-Procedure Note/Attestation Complete Prior to Procedure Planned Procedure: not applicable Procedure Narrative: cholangitis Indications for Procedure Pre-Operative Diagnosis: elevated lfts CBD sludge Attestation I attest that I discussed the nature of the procedure; its benefits; risks and complications; and alternatives (and the risks and benefits of such alternatives ), prior to the procedure, with the patient (or the patient's legal medical field representative). I attest that, if there was a reasonable possibility of needing a blood transfusion, the patient (or the patient's legal medical field representative) was given the [facility] standardized written summary, pursuant to the Tristan Linette Blood Safety Act ([place] Health and Safety Code # 1645, as amended). I attest that I re-evaluated the patient just prior to the surgery and that there has been no change in the patient's H&P, except as documented below: KIT GONZALEZ Oct 22, 2017 10:35
--- NOTE | 2017-10-22 10:42 | Pulmonology Progress Note ---
Assessment/Plan Problems: (1) ARDS (adult respiratory distress syndrome) (2) Sepsis (3) Coagulopathy (4) Aspiration pneumonia (5) Parkinsons disease (6) Protein-calorie malnutrition, severe (7) Diabetes mellitus, type II (8) Cholangitis Respiratory: monitor respiratory rate, adjust FIO2, CXR Cardiac: continue to monitor HR/BP Renal: F/U I&O Infectious Disease: continue antibiotics Gastrointestinal: continue feedings/current rate, hold feedings Endocrine: check TSH, check HgA1C Neurologic: PRN Ativan Prophylaxis: Heparin Disposition: keep in ICU Notes Reviewed: boatswain's mate, renal Discussed with: consultants, adult protective caseworker Subjective ROS Limited/Unobtainable: No Constitutional: Reports: no symptoms HEENT: Repors: no symptoms Respiratory: Reports: no symptoms Allergies: Coded Allergies: No Known Allergies (Verified , 11/18/08) Objective Last 24 Hour Vital Signs Date Time Temp Pulse Resp B/P (MAP) Pulse Ox O2 Delivery O2 Flow Rate FiO2 10/22/17 10:36 84 23 40 10/22/17 09:20 82 18 40 10/22/17 08:51 81 104/55 10/22/17 08:00 97.9 84 18 104/55 100 Mechanical Ventilator 40 97.9 10/22/17 08:00 81 10/22/17 08:00 40 10/22/17 07:29 84 19 40 10/22/17 04:45 93 18 40 10/22/17 04:00 40 10/22/17 04:00 99 10/22/17 04:00 98.1 91 18 102/52 100 Mechanical Ventilator 40 98.1 10/22/17 03:30 101 34 40 10/22/17 01:30 103 35 40 10/22/17 00:00 97.9 100 25 100/51 100 Mechanical Ventilator 40 97.9 10/22/17 00:00 93 10/22/17 00:00 40 10/21/17 23:30 94 22 40 10/21/17 21:30 90 25 40 10/21/17 20:00 98.6 98 19 106/55 100 Mechanical Ventilator 40 98.6 10/21/17 20:00 107 10/21/17 20:00 40 10/21/17 19:30 101 30 40 10/21/17 17:58 94 106/55 10/21/17 17:07 94 21 40 10/21/17 16:05 98.6 87 20 106/55 100 Mechanical Ventilator 40 98.6 10/21/17 16:00 40 10/21/17 15:27 101 25 40 10/21/17 15:16 105 10/21/17 14:00 40 10/21/17 13:26 94 33 40 10/21/17 12:00 40 10/21/17 11:34 93 10/21/17 11:26 98.7 93 20 108/56 100 Mechanical Ventilator 40 98.7 10/21/17 11:19 97 21 40 Intake and Output 10/21/17 10/22/17 19:00 07:00 Intake Total 1047.5 ml 900 ml Output Total 550 ml 300 ml Balance 497.5 ml 600 ml Free Water 200 ml 100 ml IV Total 247.5 ml 550 ml Tube Feeding 600 ml 250 ml Output Urine Total 550 ml 300 ml # Bowel Movements 4 5 General Appearance: WD/WN HEENT: status post trach Respiratory/Chest: chest wall non-tender, crackles/rales Cardiovascular: normal peripheral pulses, normal rate Abdomen: normal bowel sounds, soft, non tender Genitourinary: normal external genitalia Extremities: no cyanosis, no clubbing Skin: no rash Microbiology Date/Time Source Procedure Growth Status 10/20/17 17:55 Blood Blood Culture - Preliminary NO GROWTH AFTER 24 HOURS Resulted 10/20/17 17:45 Blood Blood Culture - Preliminary Resulted 10/20/17 18:00 Indwelling Cath Urine Culture - Preliminary NO GROWTH AFTER 24 HOURS Resulted Laboratory Tests 10/22/17 03:30: White Blood Count 12.7H, Red Blood Count 2.62L, Hemoglobin 8.4L, Hematocrit 25.3L, Mean Corpuscular Volume 96, Mean Corpuscular Hemoglobin 32.2H, Mean Corpuscular Hemoglobin Concent 33.4, Red Cell Distribution Width 16.3H, Platelet Count 142L, Mean Platelet Volume 8.8, Neutrophils (%) (Auto) 72.6, Lymphocytes (%) (Auto) 14.9L, Monocytes (%) (Auto) 9.8, Eosinophils (%) (Auto) 1.8, Basophils (%) (Auto) 0.8, Prothrombin Time 11.1, Prothromb Time International Ratio 1.1, Sodium Level 139, Potassium Level 3.2L, Chloride Level 99, Carbon Dioxide Level 29, Anion Gap 11, Blood Urea Nitrogen 36H, Creatinine 0.9, Estimat Glomerular Filtration Rate , Glucose Level 81, Calcium Level 8.1L, Phosphorus Level 3.3, Magnesium Level 2.2, Total Bilirubin 6.0H, Direct Bilirubin 5.0H, Aspartate Amino Transf (AST/SGOT) 367H, Alanine Aminotransferase (ALT/SGPT) 230H, Alkaline Phosphatase 2214H, Total Protein 7.1 , Albumin 2.0L, Globulin 5.1, Albumin/Globulin Ratio 0.4L Current Medications Medications (Trade) Dose Ordered Sig/Hermes Route PRN Reason Start Time Stop Time Status Last Admin Dose Admin Acetaminophen (Tylenol) 650 mg Q6H PRN NG Fever/Headache/Mild Pain 10/14/17 17:00 11/10/17 16:59 10/20/17 17:30 Clotrimazole (Lotrimin) 1 applic EVERY 12 HOURS TOPIC 10/14/17 21:00 11/09/17 22:59 10/22/17 08:51 Dextrose (Dextrose 50%) 25 ml STAT PRN IV Hypoglycemia 10/18/17 08:30 11/17/17 08:29 Dextrose (Dextrose 50%) 50 ml STAT PRN IV Hypoglycemia 10/18/17 08:30 11/17/17 08:29 Diltiazem HCl (Cardizem) 30 mg BID NG 10/14/17 18:00 11/10/17 08:59 10/20/17 17:30 Insulin Aspart (NovoLOG) Q6HR SUBQ 10/18/17 12:00 11/17/17 11:59 10/21/17 23:23 Ketotifen Fumarate (Zatidor) 1 drop DAILY BOTH EYES 10/15/17 09:00 10/25/17 08:59 10/21/17 20:16 Morphine Sulfate (Morphine Sulfate) 1 mg Q4HR PRN IVP Moderate Pain (Pain Scale 4-6) 10/18/17 18:15 10/25/17 11:44 Morphine Sulfate (Morphine Sulfate) 2 mg Q4H PRN IVP Severe Pain (Pain Scale 7-10) 10/18/17 18:30 10/25/17 18:29 10/20/17 09:07 Pantoprazole (Protonix) 40 mg DAILY IVP 10/15/17 09:00 11/01/17 08:59 10/22/17 08:51 Piperacillin Sod/ Tazobactam Sod 3.375 gm/Dextrose 110 ml @ 220 mls/hr EVERY 8 HOURS IVPB 10/21/17 14:00 10/28/17 13:59 10/22/17 05:11 Vancomycin HCl (Vanco rx to dose) 1 ea DAILY PRN MISC Per rx protocol 10/20/17 17:15 11/19/17 17:14 Vancomycin HCl 500 mg/Dextrose 110 ml @ 110 mls/hr Q12H IVPB 10/21/17 11:00 10/26/17 10:59 10/21/17 22:31 Tayler Liu MD Oct 22, 2017 10:41
[2017-10-22] MEDS ORDERED: fentaNYL 100 mcg/2 mL IV ONE (11:00)
[2017-10-22] MEDS ORDERED: NS Irrig 1000ml ONE (11:00)
[2017-10-22] MEDS ORDERED: Lidocaine 1% MPF 10mg/ml 5ml ONE (11:00)
[2017-10-22] MEDS ORDERED: Propofol 200mg/20ml IV ONE (11:00)
[2017-10-22] MEDS ORDERED: Sterile Water Irrig 1000ml IRRIG ONE (11:00)
[2017-10-22] MEDS ORDERED: Tubing IV Extension IV ONE (11:10)
[2017-10-22] MEDS ORDERED: NS 500ML IV ONE (11:10)
[2017-10-22] MEDS ORDERED: Iothalamate Meglumine 60% 30ML INJ ONE (11:12)
[2017-10-22] MEDS ORDERED: Tubing IV Secondary IV ONE (11:39)
[2017-10-22] MEDS ORDERED: NS 275ml ONE (11:39)
--- NOTE | 2017-10-22 12:11 | Nephrology Progress Note ---
Assessment/Plan Problem List: (1) ARDS (adult respiratory distress syndrome) (2) Electrolyte imbalance (3) Thrombocytopenia Assessment worsening leukocytosis (1) ARDS (adult respiratory distress syndrome) s/p Trach (2) Aspiration pneumonia (3) Protein-calorie malnutrition, severe (4) Diabetes mellitus (5) Anemia , aplastic by history (6) DM (7) UTI (8) Electrolyte imbalance (9) HTN (10) Depression (11) RA . Plan stable from renal stand - had trach and PEG water via NGT Adjust BP meds K and Phos supplement as needed Monitor renal parameters and urine output avoid nephrotoxics per orders discussed with RN Left ventricular ejection fraction estimated to be 55 %. Subjective ROS Limited/Unobtainable: Yes Objective Objective Last 24 Hour Vital Signs Date Time Temp Pulse Resp B/P (MAP) Pulse Ox O2 Delivery O2 Flow Rate FiO2 10/22/17 10:36 84 23 40 10/22/17 09:20 82 18 40 10/22/17 08:51 81 104/55 10/22/17 08:00 97.9 84 18 104/55 100 Mechanical Ventilator 40 97.9 10/22/17 08:00 81 10/22/17 08:00 40 10/22/17 07:29 84 19 40 10/22/17 04:45 93 18 40 10/22/17 04:00 40 10/22/17 04:00 99 10/22/17 04:00 98.1 91 18 102/52 100 Mechanical Ventilator 40 98.1 10/22/17 03:30 101 34 40 10/22/17 01:30 103 35 40 10/22/17 00:00 97.9 100 25 100/51 100 Mechanical Ventilator 40 97.9 10/22/17 00:00 93 10/22/17 00:00 40 10/21/17 23:30 94 22 40 10/21/17 21:30 90 25 40 10/21/17 20:00 98.6 98 19 106/55 100 Mechanical Ventilator 40 98.6 10/21/17 20:00 107 10/21/17 20:00 40 10/21/17 19:30 101 30 40 10/21/17 17:58 94 106/55 10/21/17 17:07 94 21 40 10/21/17 16:05 98.6 87 20 106/55 100 Mechanical Ventilator 40 98.6 10/21/17 16:00 40 10/21/17 15:27 101 25 40 10/21/17 15:16 105 10/21/17 14:00 40 10/21/17 13:26 94 33 40 Intake and Output 10/21/17 10/22/17 19:00 07:00 Intake Total 1047.5 ml 900 ml Output Total 550 ml 300 ml Balance 497.5 ml 600 ml Free Water 200 ml 100 ml IV Total 247.5 ml 550 ml Tube Feeding 600 ml 250 ml Output Urine Total 550 ml 300 ml # Bowel Movements 4 5 Laboratory Tests 10/22/17 03:30: White Blood Count 12.7H, Red Blood Count 2.62L, Hemoglobin 8.4L, Hematocrit 25.3L, Mean Corpuscular Volume 96, Mean Corpuscular Hemoglobin 32.2H, Mean Corpuscular Hemoglobin Concent 33.4, Red Cell Distribution Width 16.3H, Platelet Count 142L, Mean Platelet Volume 8.8, Neutrophils (%) (Auto) 72.6, Lymphocytes (%) (Auto) 14.9L, Monocytes (%) (Auto) 9.8, Eosinophils (%) (Auto) 1.8, Basophils (%) (Auto) 0.8, Prothrombin Time 11.1, Prothromb Time International Ratio 1.1, Sodium Level 139, Potassium Level 3.2L, Chloride Level 99, Carbon Dioxide Level 29, Anion Gap 11, Blood Urea Nitrogen 36H, Creatinine 0.9, Estimat Glomerular Filtration Rate , Glucose Level 81, Calcium Level 8.1L, Phosphorus Level 3.3, Magnesium Level 2.2, Total Bilirubin 6.0H, Direct Bilirubin 5.0H, Aspartate Amino Transf (AST/SGOT) 367H, Alanine Aminotransferase (ALT/SGPT) 230H, Alkaline Phosphatase 2214H, Total Protein 7.1 , Albumin 2.0L, Globulin 5.1, Albumin/Globulin Ratio 0.4L Height (Feet): 5 Height (Inches): 4.00 Weight (Pounds): 82 General Appearance: no apparent distress Cardiovascular: tachycardia Respiratory/Chest: decreased breath sounds Abdomen: soft Objective no change YAEL HANSEN Oct 22, 2017 12:11
--- NOTE | 2017-10-22 12:23 | Endoscopy Procedure Note ---
Endoscopy Procedure Note General Indication for Procedure: juandice Procedures Performed: ERCP Operative Findings/Diagnosis: choledocholithiasis Specimen: none Pt Tolerated Procedure Well: Yes Estimated Blood Loss: none Anesthesia Anesthesiologist: see chart Anesthesia: MAC Inserted Devices Implant(s) used?: No GI Core Measures 50 yrs or older w/o bx or poly: Not Applicable 10yrs. F/U not recommended: Not Applicable KIT GONZALEZ Oct 22, 2017 12:23
[2017-10-22] MEDS ORDERED: Atropine Inj 1mg/10ml Syr IV PRN (13:00)
[2017-10-22] MEDS ORDERED: fentaNYL 100 mcg/2 mL IV PRN (13:00)
[2017-10-22] MEDS ORDERED: DiphenhydrAMINE 50mg/ml Inj IVP PRN (13:00)
--- NOTE | 2017-10-22 13:02 | Anethesia Preoperative Eval ---
Anesthesia Pre-op PMH/ROS General Date of Evaluation: Oct 22, 2017 Time of Evaluation: 11:00 Anesthesiologist: shoaib ASA Score: ASA 4 Mallampati Score Class I : Soft palate, uvula, fauces, pillars visible Class II: Soft palate, uvula, fauces visible Class III: Soft palate, base of uvula visible Class IV: Only hard plate visible Mallampati Classification: Class III Surgeon: marilyn Diagnosis: jaundice Surgical Procedure: ercp Anesthesia History: none Social History: smoking - nonsmoker Family History: no anesthesia problems Allergies: Coded Allergies: No Known Allergies (Verified , 11/18/08) Medications: see eMAR Past Medical History Cardiovascular: Reports: HTN Pulmonary: Reports: other - oxyen dependent, tracheostomy Gastrointestinal/Genitourinary: Reports: GERD Endocrine: Reports: DM Hematology/Immune: Reports: anemia Musculoskeletal/Integumentary: Reports: OA Anesthesia Pre-op Phys. Exam Physician Exam Last Vital Signs Date Time Temp Pulse Resp B/P (MAP) Pulse Ox O2 Delivery O2 Flow Rate FiO2 10/22/17 12:51 40 10/22/17 12:50 97.6 77 18 122/55 100 Mechanical Ventilator 97.6 Constitutional: NAD Neurologic: CN 2-12 intact Cardiovascular: RRR Respiratory: other - vent dependent tracheostomy Gastrointestinal: other - peg Airway Exam Mallampati Score: Class II MO: limited Neck: racheostomy TMD: 2b ROM: limited Anesthesia Pre-op A/P Labs Hematology Test 10/22/17 03:30 White Blood Count 12.7 K/UL (4.8-10.8) H Red Blood Count 2.62 M/UL (4.20-5.40) L Hemoglobin 8.4 G/DL (12.0-16.0) L Hematocrit 25.3 % (37.0-47.0) L Mean Corpuscular Volume 96 FL (80-99) Mean Corpuscular Hemoglobin 32.2 PG (27.0-31.0) H Mean Corpuscular Hemoglobin Concent 33.4 G/DL (32.0-36.0) Red Cell Distribution Width 16.3 % (11.6-14.8) H Platelet Count 142 K/UL (150-450) L Mean Platelet Volume 8.8 FL (6.5-10.1) Neutrophils (%) (Auto) 72.6 % (45.0-75.0) Lymphocytes (%) (Auto) 14.9 % (20.0-45.0) L Monocytes (%) (Auto) 9.8 % (1.0-10.0) Eosinophils (%) (Auto) 1.8 % (0.0-3.0) Basophils (%) (Auto) 0.8 % (0.0-2.0) Coagulation Test 10/22/17 03:30 Prothrombin Time 11.1 SEC (9.30-11.50) Prothromb Time International Ratio 1.1 (0.9-1.1) Chemistry Test 10/22/17 03:30 Sodium Level 139 MMOL/L (136-145) Potassium Level 3.2 MMOL/L (3.5-5.1) L Chloride Level 99 MMOL/L (98-107) Carbon Dioxide Level 29 MMOL/L (21-32) Anion Gap 11 mmol/L (5-15) Blood Urea Nitrogen 36 mg/dL (7-18) H Creatinine 0.9 MG/DL (0.55-1.30) Estimat Glomerular Filtration Rate mL/min (>60) Glucose Level 81 MG/DL (74-106) Calcium Level 8.1 MG/DL (8.5-10.1) L Phosphorus Level 3.3 MG/DL (2.5-4.9) Magnesium Level 2.2 MG/DL (1.8-2.4) Total Bilirubin 6.0 MG/DL (0.2-1.0) H Direct Bilirubin 5.0 MG/DL (0.0-0.3) H Aspartate Amino Transf (AST/SGOT) 367 U/L (15-37) H Alanine Aminotransferase (ALT/SGPT) 230 U/L (12-78) H Alkaline Phosphatase 2214 U/L (46-116) H Total Protein 7.1 G/DL (6.4-8.2) Albumin 2.0 G/DL (3.4-5.0) L Globulin 5.1 g/dL Albumin/Globulin Ratio 0.4 (1.0-2.7) L Risk Assessment & Plan Assessment: [email or web address] Plan: mac Status Change Before Surgery: No Pre-Antibiotics Drug: CRISTIAN Garza Oct 22, 2017 13:02
--- NOTE | 2017-10-22 13:03 | Immediate Post-Op Evaluation ---
Immediate Post-Op Evalulation Immediate Post-Op Evalulation Procedure: ercp Date of Evaluation: Oct 22, 2017 Time of Evaluation: 12:35 IV Fluids: 20ml 0.9ns Blood Products: none Estimated Blood Loss: neglgible Blood Pressure Systolic: 151 Blood Pressure Diastolic: 72 Pulse Rate: 101 Respiratory Rate: 18 O2 Sat by Pulse Oximetry: 99 Temperature (Fahrenheit): 98.0 Pain Score (1-10): 0 Nausea: No Vomiting: No Complications none Patient Status: awake, reacts, patent, ventilated Hydration Status: adequate Drug: CRISTIAN Garza Oct 22, 2017 13:03
--- NOTE | 2017-10-22 13:05 | 48 Hour Post Anesthesia Eval ---
Post Anesthesia Evaluation Procedure: ercp Date of Evaluation: Oct 22, 2017 Time of Evaluation: 12:37 Blood Pressure Systolic: 150 0: 77 Pulse Rate: 99 Respiratory Rate: 18 Temperature (Fahrenheit): 98.0 O2 Sat by Pulse Oximetry: 99 Airway: patent Nausea: No Vomiting: No Pain Intensity: 0 Hydration Status: adequate Cardiopulmonary Status: stable Mental Status/LOC: patient returned to baseline Post-Anesthesia Complications: none Follow-up care needed: N/A CRISTIAN MUNOZ Oct 22, 2017 13:05
[2017-10-22] MEDS: Vancomycin 500mg/D5W 110ml IVPB SCH ×4 (13:34→23:02)
[2017-10-22] MEDS ORDERED: Potassium Chloride 40 MEQ in Sodium Chloride 500ML 550 ML IVPB ONE (14:00)
[2017-10-22] MEDS: Ketotifen Fumarate 0.035% 5ml BOTH EYES SCH (14:00)
--- NOTE | 2017-10-22 14:07 | Cardiac Electrophysiology PN ---
Assessment/Plan Assessment/Plan 1. Vent dependent Respiratory failure, due to underlying ARDS , pneumonia. Ruled out for myocardial infarction. S/P Tracheostomy 2. Left bundle-branch block. No evidence of more advanced heart block. 3. HTN and diastolic dysfunction. Echo EF 55% On Cardizem 30 BID 4. Hypernatremia and Azotemia. F/U per Dr. Mayer 5. Pneumonia and sepsis on IV antibiotics by Dr. Hunter.WBC high to >20K today 6. Psychiatric disorder. 7. Anasarca. 3rd spacing. 8. Anemia with Hb 6.6 s/p PRBC. CT chest abdomen and pelvis without contrast no acute finding S/P EGD by Dr Walton. S/P PEG 10/16/17 9. Severe thrombocytopenia. S/P platelet transfusion 10. Abnormal LFT, Biliary obstruction, possible cholangitis. S/P ERCP. CBD sludge. S/P repeat ERCP and stent by Dr. Walton Bilirubin up again to more than 5 and ALk Phos more than 2400s S/P Repeat ERCP today 10/22/[address] Walton 11. High INR likely due to hepatic failure. S/P FFP and Vit K. INR 1 DW RN Subjective Subjective No SVT or VT.On Vent via Trach.Had repeat ERCP and stent and stone removal today by Dr Walton. Objective Last 24 Hour Vital Signs Date Time Temp Pulse Resp B/P (MAP) Pulse Ox O2 Delivery O2 Flow Rate FiO2 10/22/17 13:07 81 18 40 10/22/17 13:05 208.4 99 18 99 10/22/17 13:03 208.4 101 18 99 10/22/17 12:51 40 10/22/17 12:50 97.6 77 18 122/55 100 Mechanical Ventilator 40 97.6 10/22/17 12:40 80 22 130/55 100 Mechanical Ventilator 40 10/22/17 12:35 88 18 127/63 100 Mechanical Ventilator 40 10/22/17 12:30 92 26 130/70 100 Mechanical Ventilator 40 10/22/17 12:23 40 10/22/17 12:23 98.0 101 24 151/72 100 Mechanical Ventilator 40 98.0 10/22/17 10:36 84 23 40 10/22/17 09:20 82 18 40 10/22/17 08:51 81 104/55 10/22/17 08:00 97.9 84 18 104/55 100 Mechanical Ventilator 40 97.9 10/22/17 08:00 81 10/22/17 08:00 40 10/22/17 07:29 84 19 40 10/22/17 04:45 93 18 40 10/22/17 04:00 40 10/22/17 04:00 99 10/22/17 04:00 98.1 91 18 102/52 100 Mechanical Ventilator 40 98.1 10/22/17 03:30 101 34 40 10/22/17 01:30 103 35 40 10/22/17 00:00 97.9 100 25 100/51 100 Mechanical Ventilator 40 97.9 10/22/17 00:00 93 10/22/17 00:00 40 10/21/17 23:30 94 22 40 10/21/17 21:30 90 25 40 10/21/17 20:00 98.6 98 19 106/55 100 Mechanical Ventilator 40 98.6 10/21/17 20:00 107 10/21/17 20:00 40 10/21/17 19:30 101 30 40 10/21/17 17:58 94 106/55 10/21/17 17:07 94 21 40 10/21/17 16:05 98.6 87 20 106/55 100 Mechanical Ventilator 40 98.6 10/21/17 16:00 40 10/21/17 15:27 101 25 40 10/21/17 15:16 105 Intake and Output 10/21/17 10/22/17 19:00 07:00 Intake Total 1047.5 ml 900 ml Output Total 550 ml 300 ml Balance 497.5 ml 600 ml Free Water 200 ml 100 ml IV Total 247.5 ml 550 ml Tube Feeding 600 ml 250 ml Output Urine Total 550 ml 300 ml # Bowel Movements 4 5 Laboratory Tests Test 10/22/17 03:30 White Blood Count 12.7 K/UL (4.8-10.8) H Red Blood Count 2.62 M/UL (4.20-5.40) L Hemoglobin 8.4 G/DL (12.0-16.0) L Hematocrit 25.3 % (37.0-47.0) L Mean Corpuscular Volume 96 FL (80-99) Mean Corpuscular Hemoglobin 32.2 PG (27.0-31.0) H Mean Corpuscular Hemoglobin Concent 33.4 G/DL (32.0-36.0) Red Cell Distribution Width 16.3 % (11.6-14.8) H Platelet Count 142 K/UL (150-450) L Mean Platelet Volume 8.8 FL (6.5-10.1) Neutrophils (%) (Auto) 72.6 % (45.0-75.0) Lymphocytes (%) (Auto) 14.9 % (20.0-45.0) L Monocytes (%) (Auto) 9.8 % (1.0-10.0) Eosinophils (%) (Auto) 1.8 % (0.0-3.0) Basophils (%) (Auto) 0.8 % (0.0-2.0) Prothrombin Time 11.1 SEC (9.30-11.50) Prothromb Time International Ratio 1.1 (0.9-1.1) Sodium Level 139 MMOL/L (136-145) Potassium Level 3.2 MMOL/L (3.5-5.1) L Chloride Level 99 MMOL/L (98-107) Carbon Dioxide Level 29 MMOL/L (21-32) Anion Gap 11 mmol/L (5-15) Blood Urea Nitrogen 36 mg/dL (7-18) H Creatinine 0.9 MG/DL (0.55-1.30) Estimat Glomerular Filtration Rate mL/min (>60) Glucose Level 81 MG/DL (74-106) Calcium Level 8.1 MG/DL (8.5-10.1) L Phosphorus Level 3.3 MG/DL (2.5-4.9) Magnesium Level 2.2 MG/DL (1.8-2.4) Total Bilirubin 6.0 MG/DL (0.2-1.0) H Direct Bilirubin 5.0 MG/DL (0.0-0.3) H Aspartate Amino Transf (AST/SGOT) 367 U/L (15-37) H Alanine Aminotransferase (ALT/SGPT) 230 U/L (12-78) H Alkaline Phosphatase 2214 U/L (46-116) H Total Protein 7.1 G/DL (6.4-8.2) Albumin 2.0 G/DL (3.4-5.0) L Globulin 5.1 g/dL Albumin/Globulin Ratio 0.4 (1.0-2.7) L Microbiology Date/Time Source Procedure Growth Status 10/20/17 17:55 Blood Blood Culture - Preliminary NO GROWTH AFTER 24 HOURS Resulted 10/20/17 17:45 Blood Blood Culture - Preliminary Resulted 10/20/17 18:00 Indwelling Cath Urine Culture - Preliminary NO GROWTH AFTER 24 HOURS Resulted Objective HEAD AND NECK: Tracheostomy in place LUNGS: Coarse rhonchi bilaterally CARDIOVASCULAR: Tachy S1 and S2.No murmur ABDOMEN: Soft.PEG in place EXTREMITIES: No edema. Charlie Darnell MD Oct 22, 2017 14:07
--- NOTE | 2017-10-22 15:02 | General Progress Note ---
Progress Note Progress Note Surgery: trach site evaluated. clean. minimal oozing on dressings. if so maybe 1-2 drops of serosang fluid. no bleeding. no active oozing. still on vent requiring support. very responsive and following commands. talks when balloon of trach taken down. LFT's and t bili elevated. GI following cont current care. trach care and management wean vent as tolerated. Adryan Echevarria Oct 22, 2017 15:02
--- NOTE | 2017-10-22 15:08 | Diagnostic Imaging Report ---
Indication: Abdominal pain. ERCP. Findings: Fluoroscopically captured images of the right upper quadrant of the abdomen demonstrate an endoscope with cannulation of the common bile duct and injection of contrast material. 9 fluoroscopic images showing CBD on multiple views. CBD stent noted in the last image. Impression: ERCP as above
--- NOTE | 2017-10-22 15:52 | General Progress Note ---
Assessment/Plan Problem List: (1) Arthritis, rheumatoid ICD Codes: M06.9 - Rheumatoid arthritis, unspecified SNOMED: 52641664 (2) Aspiration pneumonia ICD Codes: J69.0 - Pneumonitis due to inhalation of food and vomit SNOMED: 961043229 (3) Diabetes mellitus ICD Codes: E11.9 - Type 2 diabetes mellitus without complications SNOMED: 88929128 (4) ARDS (adult respiratory distress syndrome) ICD Codes: J80 - Acute respiratory distress syndrome SNOMED: 03030256 (5) Transaminitis ICD Codes: R74.0 - Nonspecific elevation of levels of transaminase and lactic acid dehydrogenase [LDH] SNOMED: 463206767, 197621248 (6) Dyspnea ICD Codes: R06.00 - Dyspnea, unspecified SNOMED: 543192806 (7) Parkinsons disease ICD Codes: G20 - Parkinson's disease SNOMED: 09204505 (8) Sepsis ICD Codes: A41.9 - Sepsis, unspecified organism SNOMED: 62640918 (9) GERD (gastroesophageal reflux disease) ICD Codes: K21.9 - Gastro-esophageal reflux disease without esophagitis SNOMED: 492310082 (10) Aplastic anemia ICD Codes: D61.9 - Aplastic anemia, unspecified SNOMED: 404253183 (11) Pneumonia ICD Codes: J18.9 - Pneumonia, unspecified organism SNOMED: 551460809 (12) HTN (hypertension) ICD Codes: I10 - Essential (primary) hypertension SNOMED: 51477772 Assessment/Plan Encephalopathy, agitation, psychotic disorder. -cont current meds -ativan prn Subjective Date patient seen: Oct 22, 2017 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: Reports: anxiety, depressed, emotional problems Allergies: Coded Allergies: No Known Allergies (Verified , 11/18/08) Subjective more alert however anxious and not following commands the pts mental condition was unchanged Objective Last 24 Hour Vital Signs Date Time Temp Pulse Resp B/P (MAP) Pulse Ox O2 Delivery O2 Flow Rate FiO2 10/22/17 15:20 78 18 40 10/22/17 13:07 81 18 40 10/22/17 13:05 208.4 99 18 99 10/22/17 13:03 208.4 101 18 99 10/22/17 12:51 40 10/22/17 12:50 97.6 77 18 122/55 100 Mechanical Ventilator 40 97.6 4/11/18 12:40 80 22 130/55 100 Mechanical Ventilator 40 10/22/17 12:35 88 18 127/63 100 Mechanical Ventilator 40 10/22/17 12:30 92 26 130/70 100 Mechanical Ventilator 40 10/22/17 12:23 40 10/22/17 12:23 98.0 101 24 151/72 100 Mechanical Ventilator 40 98.0 10/22/17 10:36 84 23 40 10/22/17 09:20 82 18 40 10/22/17 08:51 81 104/55 10/22/17 08:00 97.9 84 18 104/55 100 Mechanical Ventilator 40 97.9 10/22/17 08:00 81 10/22/17 08:00 40 10/22/17 07:29 84 19 40 10/22/17 04:45 93 18 40 10/22/17 04:00 40 10/22/17 04:00 99 10/22/17 04:00 98.1 91 18 102/52 100 Mechanical Ventilator 40 98.1 10/22/17 03:30 101 34 40 10/22/17 01:30 103 35 40 10/22/17 00:00 97.9 100 25 100/51 100 Mechanical Ventilator 40 97.9 10/22/17 00:00 93 10/22/17 00:00 40 10/21/17 23:30 94 22 40 10/21/17 21:30 90 25 40 10/21/17 20:00 98.6 98 19 106/55 100 Mechanical Ventilator 40 98.6 10/21/17 20:00 107 10/21/17 20:00 40 10/21/17 19:30 101 30 40 10/21/17 17:58 94 106/55 10/21/17 17:07 94 21 40 10/21/17 16:05 98.6 87 20 106/55 100 Mechanical Ventilator 40 98.6 10/21/17 16:00 40 Intake and Output 10/21/17 10/22/17 19:00 07:00 Intake Total 1047.5 ml 900 ml Output Total 550 ml 300 ml Balance 497.5 ml 600 ml Free Water 200 ml 100 ml IV Total 247.5 ml 550 ml Tube Feeding 600 ml 250 ml Output Urine Total 550 ml 300 ml # Bowel Movements 4 5 Laboratory Tests 10/22/17 03:30: White Blood Count 12.7H, Red Blood Count 2.62L, Hemoglobin 8.4L, Hematocrit 25.3L, Mean Corpuscular Volume 96, Mean Corpuscular Hemoglobin 32.2H, Mean Corpuscular Hemoglobin Concent 33.4, Red Cell Distribution Width 16.3H, Platelet Count 142L, Mean Platelet Volume 8.8, Neutrophils (%) (Auto) 72.6, Lymphocytes (%) (Auto) 14.9L, Monocytes (%) (Auto) 9.8, Eosinophils (%) (Auto) 1.8, Basophils (%) (Auto) 0.8, Prothrombin Time 11.1, Prothromb Time International Ratio 1.1, Sodium Level 139, Potassium Level 3.2L, Chloride Level 99, Carbon Dioxide Level 29, Anion Gap 11, Blood Urea Nitrogen 36H, Creatinine 0.9, Estimat Glomerular Filtration Rate , Glucose Level 81, Calcium Level 8.1L, Phosphorus Level 3.3, Magnesium Level 2.2, Total Bilirubin 6.0H, Direct Bilirubin 5.0H, Aspartate Amino Transf (AST/SGOT) 367H, Alanine Aminotransferase (ALT/SGPT) 230H, Alkaline Phosphatase 2214H, Total Protein 7.1 , Albumin 2.0L, Globulin 5.1, Albumin/Globulin Ratio 0.4L Height (Feet): 5 Height (Inches): 4.00 Weight (Pounds): 82 General Appearance: no apparent distress, alert, confused, agitated Dary Nixon M.D. Oct 22, 2017 15:52
--- NOTE | 2017-10-22 16:30 | Procedure Note ---
DATE OF PROCEDURE: 10/22/2017 SURGEON: Franklin Walton M.D. ANESTHESIA: Per Dr. Chavez. REFERRING PHYSICIAN: Yair Encinas M.D. PROCEDURE: ERCP, sphincterotomy, stone removal, stent removal, and stent placement. INSTRUMENT: Olympus adult ERCP scope. INDICATION: Cholangitis. The procedure, risks, benefits, and possible consequences, including hemorrhage, aspiration, perforation and infection, and alternative treatments, were explained to the patient/legal guardian by Dr. Franklin Walton and the patient/legal guardian understood and accepted these risks. DESCRIPTION OF PROCEDURE: After informed consent was obtained and the patient was adequately sedated, ERCP scope was advanced from mouth into the second portion of the duodenum. This procedure was done in the supine position. There was a stent protruding through the common bile. First, we cannulated the common bile duct using a sphincterotome. We placed a wire and then removed the stent with a snare. Then, we performed 95% sphincterotomy. Then, using a balloon, the cholangiogram was performed and multiple thick sludges were removed from distal common bile duct. Then, repeat balloon occlusion cholangiogram showed dilated common bile duct distally, at the opening of the ampulla was maybe about 12, then in the mid common bile duct starting to get narrowed to about 7. It seems there might be external compression to the common bile duct given the lining of common bile duct looks relatively straight. At this point, over a guidewire, we placed the 10-[place] 9 cm stent by passing the area. The patient tolerated the procedure very well without any complication. SUMMARY OF FINDINGS: 1. Choledocholithiasis, status post ERCP sphincterotomy, lots of sludge removal. 2. Narrowing in the mid common bile duct seems to be circumferential, maybe external compression, I am not sure, status post stenting. RECOMMENDATIONS: Follow labs and we will follow liver functions on daily basis and make further recommendation after the blood work has been done. I want to thank Dr. Encinas for this kind referral. Franklin Walton M.D. DR: ADÁN JOB#: [id number] CC: Yair Encinas M.D.; Fax#: [phone]
--- NOTE | 2017-10-22 18:25 | Internal Med Progress Note ---
Subjective Date of Service: Oct 22, 2017 Physician Name Sina Bowens Attending Physician Jesus Barahona MD Current Medications Medications (Trade) Dose Ordered Sig/Hermes Route PRN Reason Start Time Stop Time Status Last Admin Dose Admin Acetaminophen (Tylenol) 650 mg Q6H PRN NG Fever/Headache/Mild Pain 10/14/17 17:00 11/10/17 16:59 10/20/17 17:30 Al Hydroxide/Mg Hydroxide (Mylanta) 15 ml Q1H PRN ORAL gi upset 10/22/17 13:00 10/22/17 21:00 Atropine Sulfate (Atropine) 0.5 mg Q5M PRN IV HR less than 45 BPM 10/22/17 13:00 10/22/17 21:00 Clotrimazole (Lotrimin) 1 applic EVERY 12 HOURS TOPIC 10/14/17 21:00 11/09/17 22:59 10/22/17 08:51 Dextrose (Dextrose 50%) 25 ml STAT PRN IV Hypoglycemia 10/18/17 08:30 11/17/17 08:29 Dextrose (Dextrose 50%) 50 ml STAT PRN IV Hypoglycemia 10/18/17 08:30 11/17/17 08:29 Diltiazem HCl (Cardizem) 30 mg BID NG 10/14/17 18:00 11/10/17 08:59 10/20/17 17:30 Diphenhydramine HCl (Benadryl) 25 mg Q15M PRN IVP Itching 10/22/17 13:00 10/22/17 21:00 Fentanyl Citrate (Sublimaze 100 mcg/2 mL) 25 mcg Q10M PRN IV Moderate Pain (Pain Scale 4-6) 10/22/17 13:00 10/22/17 21:00 Hydralazine HCl (Apresoline) 5 mg Q30M PRN IV SBP>160 /DBP>90 10/22/17 13:00 10/22/17 21:00 Insulin Aspart (NovoLOG) Q6HR SUBQ 10/18/17 12:00 11/17/17 11:59 10/21/17 23:23 Ketotifen Fumarate (Zatidor) 1 drop DAILY BOTH EYES 10/15/17 09:00 10/25/17 08:59 10/21/17 20:16 Morphine Sulfate (Morphine Sulfate) 1 mg Q4HR PRN IVP Moderate Pain (Pain Scale 4-6) 10/18/17 18:15 10/25/17 11:44 Morphine Sulfate (Morphine Sulfate) 2 mg Q4H PRN IVP Severe Pain (Pain Scale 7-10) 10/18/17 18:30 10/25/17 18:29 10/20/17 09:07 Ondansetron HCl (Zofran) 4 mg Q1H PRN IVP Nausea & Vomiting 10/22/17 13:00 10/22/17 21:00 Pantoprazole (Protonix) 40 mg DAILY IVP 10/15/17 09:00 11/01/17 08:59 10/22/17 08:51 Piperacillin Sod/ Tazobactam Sod 3.375 gm/Dextrose 110 ml @ 220 mls/hr EVERY 8 HOURS IVPB 10/21/17 14:00 10/28/17 13:59 10/22/17 14:28 Vancomycin HCl (Vanco rx to dose) 1 ea DAILY PRN MISC Per rx protocol 10/20/17 17:15 11/19/17 17:14 Vancomycin HCl 500 mg/Dextrose 110 ml @ 110 mls/hr Q12H IVPB 10/21/17 11:00 10/26/17 10:59 10/22/17 13:34 Allergies: Coded Allergies: No Known Allergies (Verified , 11/18/08) ROS Limited/Unobtainable: Yes Subjective 76 YO F admitted with Shortness of breath, now respiratory failure. Intubated and sedated. Cover for Internal Med-Dr. Barahona. RAJINDER . S/P ERCP 10/08/17. S/P Tracheostomy and bronchoscopy 10/13/17. Await transfer to [facility] Objective Last Vital Signs Date Time Temp Pulse Resp B/P (MAP) Pulse Ox O2 Delivery O2 Flow Rate FiO2 10/22/17 17:09 84 109/54 10/22/17 16:48 20 40 10/22/17 16:00 97.5 97 Mechanical Ventilator 97.5 Laboratory Tests Test 10/22/17 03:30 White Blood Count 12.7 K/UL (4.8-10.8) H Red Blood Count 2.62 M/UL (4.20-5.40) L Hemoglobin 8.4 G/DL (12.0-16.0) L Hematocrit 25.3 % (37.0-47.0) L Mean Corpuscular Volume 96 FL (80-99) Mean Corpuscular Hemoglobin 32.2 PG (27.0-31.0) H Mean Corpuscular Hemoglobin Concent 33.4 G/DL (32.0-36.0) Red Cell Distribution Width 16.3 % (11.6-14.8) H Platelet Count 142 K/UL (150-450) L Mean Platelet Volume 8.8 FL (6.5-10.1) Neutrophils (%) (Auto) 72.6 % (45.0-75.0) Lymphocytes (%) (Auto) 14.9 % (20.0-45.0) L Monocytes (%) (Auto) 9.8 % (1.0-10.0) Eosinophils (%) (Auto) 1.8 % (0.0-3.0) Basophils (%) (Auto) 0.8 % (0.0-2.0) Prothrombin Time 11.1 SEC (9.30-11.50) Prothromb Time International Ratio 1.1 (0.9-1.1) Sodium Level 139 MMOL/L (136-145) Potassium Level 3.2 MMOL/L (3.5-5.1) L Chloride Level 99 MMOL/L (98-107) Carbon Dioxide Level 29 MMOL/L (21-32) Anion Gap 11 mmol/L (5-15) Blood Urea Nitrogen 36 mg/dL (7-18) H Creatinine 0.9 MG/DL (0.55-1.30) Estimat Glomerular Filtration Rate mL/min (>60) Glucose Level 81 MG/DL (74-106) Calcium Level 8.1 MG/DL (8.5-10.1) L Phosphorus Level 3.3 MG/DL (2.5-4.9) Magnesium Level 2.2 MG/DL (1.8-2.4) Total Bilirubin 6.0 MG/DL (0.2-1.0) H Direct Bilirubin 5.0 MG/DL (0.0-0.3) H Aspartate Amino Transf (AST/SGOT) 367 U/L (15-37) H Alanine Aminotransferase (ALT/SGPT) 230 U/L (12-78) H Alkaline Phosphatase 2214 U/L (46-116) H Total Protein 7.1 G/DL (6.4-8.2) Albumin 2.0 G/DL (3.4-5.0) L Globulin 5.1 g/dL Albumin/Globulin Ratio 0.4 (1.0-2.7) L Microbiology Date/Time Source Procedure Growth Status 10/20/17 17:55 Blood Blood Culture - Preliminary NO GROWTH AFTER 24 HOURS Resulted 10/20/17 17:45 Blood Blood Culture - Preliminary Resulted 10/20/17 18:00 Indwelling Cath Urine Culture - Preliminary NO GROWTH AFTER 24 HOURS Resulted Intake and Output 10/21/17 10/22/17 19:00 07:00 Intake Total 1047.5 ml 900 ml Output Total 550 ml 300 ml Balance 497.5 ml 600 ml Free Water 200 ml 100 ml IV Total 247.5 ml 550 ml Tube Feeding 600 ml 250 ml Output Urine Total 550 ml 300 ml # Bowel Movements 4 5 Objective General Appearance: lethargic, thin EENT: normal ENT inspection Neck: Trach; non-tender, normal alignment, supple Cardiovascular: normal peripheral pulses, normal rate, regular rhythm, no gallop/murmur, no JVD Respiratory/Chest: Mechanical vent; trach; ; respiratory distress, crackles/ rales, rhonchi - bilaterally, expiratory wheezing Abdomen: normal bowel sounds, non tender, soft, no organomegaly, no mass Skin: normal pigmentation, warm/dry Assessment/Plan Problem List: (1) HTN (hypertension) Assessment & Plan: Currently hypotensive. (2) Arthritis, rheumatoid (3) Parkinsons disease (4) Aplastic anemia (5) GERD (gastroesophageal reflux disease) (6) Respiratory failure Assessment & Plan: S/P Tracheostomy and broncholsopy 10/13/17. Cont vent per pulmonary (7) Pneumonia (8) Dyspnea (9) Sepsis Assessment & Plan: Blood culture neg. Continue Amikacin, micafungin and flagyl per ID (10) ARDS (adult respiratory distress syndrome) Assessment & Plan: See pulmonary note (11) UTI (urinary tract infection) Assessment & Plan: E.Coli. Continue abx per ID (12) Anemia Assessment & Plan: S/P Transfusion 4 units PRBC (13) Diabetes mellitus, type II Assessment & Plan: Continue novolog sliding scale (14) Leukocytosis Assessment & Plan: Worsening. See ID note. Start amikacin and fluconazole (15) Thrombocytopenia (16) Gallbladder sludge Assessment & Plan: s/P ERCP 10/01, 10/07/17 and 10/08/17 (17) Coagulopathy Assessment & Plan: S/P FFP and Vit K Assessment/Plan Discharge planning: [facility] SINA BOWENS Oct 22, 2017 18:25
--- NOTE | 2017-10-22 19:22 | Infectious Diseases Prog Note ---
Assessment/Plan Assessment/Plan The patient is a 76-year-old female w 10/20 BCx : 1/2 GPC Fever , SP Leukocytosis, improving Cholangitis : Cholangitis, Abnormal liver function tests, ALP>>> AST - improving -SP ERCP 10/22 choledocholithiasis -s/p ERCP 10/08: Intraoperative images demonstrate faint opacification of the common bile duct, and placement of a new plastic endobiliary stent. What may be a previous malpositioned biliary stent is seen to the left of the endoscope -s/p ERCP with stent placement 10/01 -EUS 09/30: 1. Dilated common bile duct with lots of sludge in the distal common bile duct, most probably explanation for abnormal liver function tests. Large ascites Hep panel : neg Community-acquired vs healthcare-associated pneumonia, s/p RX 10/13 SP Fiberoptic bronchoscopy, bronchoalveolar lavage, upper airway endoscopy for percutaneous tracheostomy, bronchoscopy through tracheostomy BAL : Laila an Nl devon , AFB : Neg Viral Cx : NegTD -CT chest 10/07: Extensive diffuse bilateral pulmonary parenchymal disease, slightly worse than on prior exam of 09/23/2017. Main differential considerations include pneumonia, ARDS, pulmonary edema, among multiple other possibilities. Bilateral moderate to large pleural effusions, slightly increased in size from 09/23/2017. Nasogastric and endotracheal tubes in good position. Evidence of generalized anasarca, with diffuse subcutaneous soft tissue edema. 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 Depression. Anemia. Rheumatoid arthritis. History of gastritis. PLAN: pt on IV Vanco and Zosyn d # 3 ( Empirically ) - 10/11 SP Ertapenem #7/7 10/09 SP MIcafungin #10 10/02 SP Amikacin #10 09/30 SP Flagyl #8 09/25 sp Fluconazole #3 (held due to rise ALP) 09/23 SP Meropenem #5, PO Vanco #2 09/21 SP tamiflu #10 -f/u AFB cultures ( BAL) : P -f/u Asp ag, fungitell, Cocci ab, fungal sp cx (called lab on 10/09 for f/u on these tests; ) Monitor CBC.; Trend WBC Monitor BMP.; Trend LFTs Monitor chest x-ray -GI, heme onc f/u Pna Culture ( Bl, Ur , Sp ) Subjective Allergies: Coded Allergies: No Known Allergies (Verified , 11/18/08) Subjective Afebrile Objective Vital Signs Last 24 Hour Vital Signs Date Time Temp Pulse Resp B/P (MAP) Pulse Ox O2 Delivery O2 Flow Rate FiO2 10/22/17 17:09 84 109/54 10/22/17 16:48 84 20 40 10/22/17 16:00 80 10/22/17 16:00 97.5 85 18 109/54 97 Mechanical Ventilator 40 97.5 10/22/17 15:20 78 18 40 10/22/17 13:07 81 18 40 10/22/17 13:05 208.4 99 18 99 10/22/17 13:03 208.4 101 18 99 10/22/17 12:51 40 10/22/17 12:50 97.6 77 18 122/55 100 Mechanical Ventilator 40 97.6 10/22/17 12:40 80 22 130/55 100 Mechanical Ventilator 40 10/22/17 12:35 88 18 127/63 100 Mechanical Ventilator 40 10/22/17 12:30 92 26 130/70 100 Mechanical Ventilator 40 10/22/17 12:23 40 10/22/17 12:23 98.0 101 24 151/72 100 Mechanical Ventilator 40 98.0 10/22/17 10:36 84 23 40 10/22/17 09:20 82 18 40 10/22/17 08:51 81 104/55 10/22/17 08:00 97.9 84 18 104/55 100 Mechanical Ventilator 40 97.9 10/22/17 08:00 81 10/22/17 08:00 40 10/22/17 07:29 84 19 40 10/22/17 04:45 93 18 40 10/22/17 04:00 40 10/22/17 04:00 99 10/22/17 04:00 98.1 91 18 102/52 100 Mechanical Ventilator 40 98.1 10/22/17 03:30 101 34 40 10/22/17 01:30 103 35 40 10/22/17 00:00 97.9 100 25 100/51 100 Mechanical Ventilator 40 97.9 10/22/17 00:00 93 10/22/17 00:00 40 10/21/17 23:30 94 22 40 10/21/17 21:30 90 25 40 10/21/17 20:00 98.6 98 19 106/55 100 Mechanical Ventilator 40 98.6 10/21/17 20:00 107 10/21/17 20:00 40 10/21/17 19:30 101 30 40 Height (Feet): 5 Height (Inches): 4.00 Weight (Pounds): 82 HEENT: anicteric Respiratory/Chest: no respiratory distress Cardiovascular: regular rhythm Abdomen: no organomegaly Microbiology Date/Time Source Procedure Growth Status 10/20/17 17:55 Blood Blood Culture - Preliminary NO GROWTH AFTER 24 HOURS Resulted 10/20/17 17:45 Blood Blood Culture - Preliminary Resulted 10/20/17 18:00 Indwelling Cath Urine Culture - Preliminary NO GROWTH AFTER 24 HOURS Resulted Laboratory Tests Test 10/22/17 03:30 White Blood Count 12.7 K/UL (4.8-10.8) H Red Blood Count 2.62 M/UL (4.20-5.40) L Hemoglobin 8.4 G/DL (12.0-16.0) L Hematocrit 25.3 % (37.0-47.0) L Mean Corpuscular Volume 96 FL (80-99) Mean Corpuscular Hemoglobin 32.2 PG (27.0-31.0) H Mean Corpuscular Hemoglobin Concent 33.4 G/DL (32.0-36.0) Red Cell Distribution Width 16.3 % (11.6-14.8) H Platelet Count 142 K/UL (150-450) L Mean Platelet Volume 8.8 FL (6.5-10.1) Neutrophils (%) (Auto) 72.6 % (45.0-75.0) Lymphocytes (%) (Auto) 14.9 % (20.0-45.0) L Monocytes (%) (Auto) 9.8 % (1.0-10.0) Eosinophils (%) (Auto) 1.8 % (0.0-3.0) Basophils (%) (Auto) 0.8 % (0.0-2.0) Prothrombin Time 11.1 SEC (9.30-11.50) Prothromb Time International Ratio 1.1 (0.9-1.1) Sodium Level 139 MMOL/L (136-145) Potassium Level 3.2 MMOL/L (3.5-5.1) L Chloride Level 99 MMOL/L (98-107) Carbon Dioxide Level 29 MMOL/L (21-32) Anion Gap 11 mmol/L (5-15) Blood Urea Nitrogen 36 mg/dL (7-18) H Creatinine 0.9 MG/DL (0.55-1.30) Estimat Glomerular Filtration Rate mL/min (>60) Glucose Level 81 MG/DL (74-106) Calcium Level 8.1 MG/DL (8.5-10.1) L Phosphorus Level 3.3 MG/DL (2.5-4.9) Magnesium Level 2.2 MG/DL (1.8-2.4) Total Bilirubin 6.0 MG/DL (0.2-1.0) H Direct Bilirubin 5.0 MG/DL (0.0-0.3) H Aspartate Amino Transf (AST/SGOT) 367 U/L (15-37) H Alanine Aminotransferase (ALT/SGPT) 230 U/L (12-78) H Alkaline Phosphatase 2214 U/L (46-116) H Total Protein 7.1 G/DL (6.4-8.2) Albumin 2.0 G/DL (3.4-5.0) L Globulin 5.1 g/dL Albumin/Globulin Ratio 0.4 (1.0-2.7) L Current Medications Medications (Trade) Dose Ordered Sig/Hermes Route PRN Reason Start Time Stop Time Status Last Admin Dose Admin Acetaminophen (Tylenol) 650 mg Q6H PRN NG Fever/Headache/Mild Pain 10/14/17 17:00 11/10/17 16:59 10/20/17 17:30 Al Hydroxide/Mg Hydroxide (Mylanta) 15 ml Q1H PRN ORAL gi upset 10/22/17 13:00 10/22/17 21:00 Atropine Sulfate (Atropine) 0.5 mg Q5M PRN IV HR less than 45 BPM 10/22/17 13:00 10/22/17 21:00 Clotrimazole (Lotrimin) 1 applic EVERY 12 HOURS TOPIC 10/14/17 21:00 11/09/17 22:59 10/22/17 08:51 Dextrose (Dextrose 50%) 25 ml STAT PRN IV Hypoglycemia 10/18/17 08:30 11/17/17 08:29 Dextrose (Dextrose 50%) 50 ml STAT PRN IV Hypoglycemia 10/18/17 08:30 11/17/17 08:29 Diltiazem HCl (Cardizem) 30 mg BID NG 10/14/17 18:00 11/10/17 08:59 10/20/17 17:30 Diphenhydramine HCl (Benadryl) 25 mg Q15M PRN IVP Itching 10/22/17 13:00 10/22/17 21:00 Fentanyl Citrate (Sublimaze 100 mcg/2 mL) 25 mcg Q10M PRN IV Moderate Pain (Pain Scale 4-6) 10/22/17 13:00 10/22/17 21:00 Hydralazine HCl (Apresoline) 5 mg Q30M PRN IV SBP>160 /DBP>90 10/22/17 13:00 10/22/17 21:00 Insulin Aspart (NovoLOG) Q6HR SUBQ 10/18/17 12:00 11/17/17 11:59 10/21/17 23:23 Ketotifen Fumarate (Zatidor) 1 drop DAILY BOTH EYES 10/15/17 09:00 10/25/17 08:59 10/21/17 20:16 Morphine Sulfate (Morphine Sulfate) 1 mg Q4HR PRN IVP Moderate Pain (Pain Scale 4-6) 10/18/17 18:15 10/25/17 11:44 Morphine Sulfate (Morphine Sulfate) 2 mg Q4H PRN IVP Severe Pain (Pain Scale 7-10) 10/18/17 18:30 10/25/17 18:29 10/20/17 09:07 Ondansetron HCl (Zofran) 4 mg Q1H PRN IVP Nausea & Vomiting 10/22/17 13:00 10/22/17 21:00 Pantoprazole (Protonix) 40 mg DAILY IVP 10/15/17 09:00 11/01/17 08:59 10/22/17 08:51 Piperacillin Sod/ Tazobactam Sod 3.375 gm/Dextrose 110 ml @ 220 mls/hr EVERY 8 HOURS IVPB 10/21/17 14:00 10/28/17 13:59 10/22/17 14:28 Vancomycin HCl (Vanco rx to dose) 1 ea DAILY PRN MISC Per rx protocol 10/20/17 17:15 11/19/17 17:14 Vancomycin HCl 500 mg/Dextrose 110 ml @ 110 mls/hr Q12H IVPB 10/21/17 11:00 10/26/17 10:59 10/22/17 13:34 Edis Hunter MD Oct 22, 2017 19:22
[2017-10-23] VITALS: BP 136/66
[2017-10-23 04:00] VITALS: BP 135/75
[2017-10-23] MEDS: NovoLOG Insulin Flexpen SUBQ SCH ×4 (05:11→23:16)
[2017-10-23] MEDS: Piperacillin/Tazobactam 3.375 GM in D5W 110 ML IVPB SCH ×3 (05:17→21:30)
[2017-10-23 05:19] LABS: BASOPHILS % (AUTO) 1.2 % (0.0-2.0); HEMATOCRIT 25.8 % (37.0-47.0); HEMOGLOBIN 8.4 G/DL (12.0-16.0); LYMPHOCYTES % (AUTO) 17.6 % (20.0-45.0); MEAN CORPUSCULAR VOLUME 99 FL (80-99); MONOCYTES % (AUTO) 10.4 % (1.0-10.0); NEUTROPHILS % (AUTO) 69.8 % (45.0-75.0); PLATELET COUNT 148 K/UL (150-450); RED BLOOD COUNT 2.61 M/UL (4.20-5.40); WHITE BLOOD COUNT 9.4 K/UL (4.8-10.8)
[2017-10-23 05:33] LABS: AMYLASE 26 U/L (25-115)
[2017-10-23 05:41] LABS: ALANINE AMINOTRANSFERASE 418 U/L (12-78); ALBUMIN 1.8 G/DL (3.4-5.0); ALBUMIN/GLOBULIN RATIO 0.4 (1.0-2.7); ALKALINE PHOSPHATASE 2668 U/L (46-116); ANION GAP 9 mmol/L (5-15); ASPARTATE AMINO TRANSFERASE 660 U/L (15-37); BILIRUBIN,TOTAL 7.2 MG/DL (0.2-1.0); BLOOD UREA NITROGEN 30 mg/dL (7-18); CALCIUM 8.3 MG/DL (8.5-10.1); CARBON DIOXIDE 27 MMOL/L (21-32); CHLORIDE 103 MMOL/L (98-107); CREATININE 0.7 MG/DL (0.55-1.30); PHOSPHORUS 2.7 MG/DL (2.5-4.9); POTASSIUM 3.9 MMOL/L (3.5-5.1); SODIUM 139 MMOL/L (136-145)
[2017-10-23 08:00] VITALS: BP 148/67
[2017-10-23] MEDS: Pantoprazole Inj IVP SCH (08:57)
[2017-10-23] MEDS: Ketotifen Fumarate 0.035% 5ml BOTH EYES SCH (08:59)
[2017-10-23] MEDS: dilTIAZem HCl 30mg tab NG SCH ×2 (08:59→18:00)
--- NOTE | 2017-10-23 10:24 | Cardiac Electrophysiology PN ---
Assessment/Plan Assessment/Plan 1. Vent dependent Respiratory failure, due to underlying ARDS , pneumonia. Ruled out for myocardial infarction. S/P Tracheostomy 2. Left bundle-branch block. No evidence of more advanced heart block. 3. HTN and diastolic dysfunction. Echo EF 55% On Cardizem 30 BID 4. Hypernatremia and Azotemia. F/U per Dr. Mayer 5. Pneumonia and sepsis on IV antibiotics by Dr. Hunter.WBC high to >20K 6. Psychiatric disorder. 7. Anasarca. 3rd spacing. 8. Anemia with Hb 6.6 s/p PRBC. CT chest abdomen and pelvis without contrast no acute finding S/P EGD by Dr Walton. S/P PEG 10/16/17 9. Severe thrombocytopenia. S/P platelet transfusion 10. Abnormal LFT, Biliary obstruction, possible cholangitis. S/P ERCP. CBD sludge. S/P repeat ERCP and stent by Dr. Walton Bilirubin up again to more than 5 and ALk Phos more than 2400s S/P Repeat ERCP 10/22/[address] Walton 11. High INR likely due to hepatic failure. S/P FFP and Vit K. INR [address] Walton Subjective Subjective No SVT or VT. On Vent via Trach.No events Objective Last 24 Hour Vital Signs Date Time Temp Pulse Resp B/P (MAP) Pulse Ox O2 Delivery O2 Flow Rate FiO2 10/23/17 09:24 71 18 40 10/23/17 08:59 72 148/67 10/23/17 08:01 40 10/23/17 08:00 80 10/23/17 08:00 97.2 72 30 148/67 100 Mechanical Ventilator 40 97.2 10/23/17 06:55 73 20 40 10/23/17 05:11 83 20 40 10/23/17 04:00 40 10/23/17 04:00 81 10/23/17 04:00 97.5 85 22 135/75 100 Mechanical Ventilator 40 97.5 10/23/17 03:05 81 20 40 10/23/17 01:27 77 20 40 10/23/17 00:00 74 10/23/17 00:00 97.7 77 18 136/66 100 Mechanical Ventilator 40 97.7 10/23/17 00:00 40 10/22/17 22:35 76 18 40 10/22/17 21:21 81 18 40 10/22/17 20:00 40 10/22/17 20:00 98 10/22/17 20:00 97.9 93 31 129/54 97 Mechanical Ventilator 40 97.9 10/22/17 19:20 80 18 40 10/22/17 17:09 84 109/54 10/22/17 16:48 84 20 40 10/22/17 16:00 80 10/22/17 16:00 97.5 85 18 109/54 97 Mechanical Ventilator 40 97.5 10/22/17 15:20 78 18 40 10/22/17 13:07 81 18 40 10/22/17 13:05 208.4 99 18 99 10/22/17 13:03 208.4 101 18 99 10/22/17 12:51 40 10/22/17 12:50 97.6 77 18 122/55 100 Mechanical Ventilator 40 97.6 10/22/17 12:40 80 22 130/55 100 Mechanical Ventilator 40 10/22/17 12:35 88 18 127/63 100 Mechanical Ventilator 40 10/22/17 12:30 92 26 130/70 100 Mechanical Ventilator 40 10/22/17 12:23 40 10/22/17 12:23 98.0 101 24 151/72 100 Mechanical Ventilator 40 98.0 10/22/17 10:36 84 23 40 Intake and Output 10/22/17 10/23/17 19:00 07:00 Intake Total 1068.0 ml 550 ml Output Total 300 ml 350 ml Balance 768.0 ml 200 ml IV Total 1068.0 ml 550 ml Output Urine Total 300 ml 350 ml Estimated Blood Loss 0 ml # Bowel Movements 3 1 Laboratory Tests Test 10/22/17 22:18 10/23/17 03:40 Vancomycin Level Trough 24.3 ug/mL (5.0-12.0) H White Blood Count 9.4 K/UL (4.8-10.8) Red Blood Count 2.61 M/UL (4.20-5.40) L Hemoglobin 8.4 G/DL (12.0-16.0) L Hematocrit 25.8 % (37.0-47.0) L Mean Corpuscular Volume 99 FL (80-99) Mean Corpuscular Hemoglobin 32.2 PG (27.0-31.0) H Mean Corpuscular Hemoglobin Concent 32.6 G/DL (32.0-36.0) Red Cell Distribution Width 16.0 % (11.6-14.8) H Platelet Count 148 K/UL (150-450) L Mean Platelet Volume 8.8 FL (6.5-10.1) Neutrophils (%) (Auto) 69.8 % (45.0-75.0) Lymphocytes (%) (Auto) 17.6 % (20.0-45.0) L Monocytes (%) (Auto) 10.4 % (1.0-10.0) H Eosinophils (%) (Auto) 1.0 % (0.0-3.0) Basophils (%) (Auto) 1.2 % (0.0-2.0) Prothrombin Time 10.4 SEC (9.30-11.50) Prothromb Time International Ratio 1.0 (0.9-1.1) Activated Partial Thromboplast Time 28 SEC (23-33) Sodium Level 139 MMOL/L (136-145) Potassium Level 3.9 MMOL/L (3.5-5.1) Chloride Level 103 MMOL/L (98-107) Carbon Dioxide Level 27 MMOL/L (21-32) Anion Gap 9 mmol/L (5-15) Blood Urea Nitrogen 30 mg/dL (7-18) H Creatinine 0.7 MG/DL (0.55-1.30) Estimat Glomerular Filtration Rate mL/min (>60) Glucose Level 77 MG/DL (74-106) Calcium Level 8.3 MG/DL (8.5-10.1) L Phosphorus Level 2.7 MG/DL (2.5-4.9) Magnesium Level 2.4 MG/DL (1.8-2.4) Total Bilirubin 7.2 MG/DL (0.2-1.0) H Direct Bilirubin 6.0 MG/DL (0.0-0.3) H Aspartate Amino Transf (AST/SGOT) 660 U/L (15-37) H Alanine Aminotransferase (ALT/SGPT) 418 U/L (12-78) H Alkaline Phosphatase 2668 U/L (46-116) H Total Protein 6.8 G/DL (6.4-8.2) Albumin 1.8 G/DL (3.4-5.0) L Globulin 5.0 g/dL Albumin/Globulin Ratio 0.4 (1.0-2.7) L Amylase Level 26 U/L (25-115) Lipase 62 U/L (73-393) L Microbiology Date/Time Source Procedure Growth Status 10/20/17 17:55 Blood Blood Culture - Preliminary NO GROWTH AFTER 48 HOURS Resulted 10/20/17 17:45 Blood Blood Culture - Preliminary Staphylococcus Sp Coag Neg Resulted 10/20/17 18:00 Indwelling Cath Urine Culture - Preliminary NO GROWTH AFTER 24 HOURS Resulted Objective HEAD AND NECK: Tracheostomy in place LUNGS: Coarse rhonchi bilaterally CARDIOVASCULAR: Tachy S1 and S2.No murmur ABDOMEN: Soft.PEG in place EXTREMITIES: No edema. Charlie Darnell MD Oct 23, 2017 10:24
--- NOTE | 2017-10-23 11:33 | Pulmonology Progress Note ---
Assessment/Plan Problems: (1) ARDS (adult respiratory distress syndrome) (2) Sepsis (3) Coagulopathy (4) Aspiration pneumonia (5) Parkinsons disease (6) Protein-calorie malnutrition, severe (7) Diabetes mellitus, type II (8) Cholangitis Respiratory: monitor respiratory rate, adjust FIO2, CXR Cardiac: continue pressors, continue to monitor HR/BP Renal: F/U I&O, keep IV fluid Infectious Disease: check cultures Gastrointestinal: continue feedings/current rate, hold feedings Endocrine: monitor blood sugar, check TSH, check HgA1C, continue sliding scale insulin Hematologic: monitor H/H, transfuse if hgb<8.5 Neurologic: PRN Ativan, keep patient comfortable Prophylaxis: Protonix Disposition: keep in ICU Notes Reviewed: lighter captain, cardio, renal Discussed with: nurses, consultants, trimming caser Subjective ROS Limited/Unobtainable: Yes Allergies: Coded Allergies: No Known Allergies (Verified , 11/18/08) Objective Last 24 Hour Vital Signs Date Time Temp Pulse Resp B/P (MAP) Pulse Ox O2 Delivery O2 Flow Rate FiO2 10/23/17 11:07 73 18 40 10/23/17 09:24 71 18 40 10/23/17 08:59 72 148/67 10/23/17 08:01 40 10/23/17 08:00 80 10/23/17 08:00 97.2 72 30 148/67 100 Mechanical Ventilator 40 97.2 10/23/17 06:55 73 20 40 10/23/17 05:11 83 20 40 10/23/17 04:00 40 10/23/17 04:00 81 10/23/17 04:00 97.5 85 22 135/75 100 Mechanical Ventilator 40 97.5 10/23/17 03:05 81 20 40 10/23/17 01:27 77 20 40 10/23/17 00:00 74 10/23/17 00:00 97.7 77 18 136/66 100 Mechanical Ventilator 40 97.7 10/23/17 00:00 40 10/22/17 22:35 76 18 40 10/22/17 21:21 81 18 40 10/22/17 20:00 40 10/22/17 20:00 98 10/22/17 20:00 97.9 93 31 129/54 97 Mechanical Ventilator 40 97.9 10/22/17 19:20 80 18 40 10/22/17 17:09 84 109/54 10/22/17 16:48 84 20 40 10/22/17 16:00 80 10/22/17 16:00 97.5 85 18 109/54 97 Mechanical Ventilator 40 97.5 10/22/17 15:20 78 18 40 10/22/17 13:07 81 18 40 10/22/17 13:05 208.4 99 18 99 10/22/17 13:03 208.4 101 18 99 10/22/17 12:51 40 10/22/17 12:50 97.6 77 18 122/55 100 Mechanical Ventilator 40 97.6 10/22/17 12:40 80 22 130/55 100 Mechanical Ventilator 40 10/22/17 12:35 88 18 127/63 100 Mechanical Ventilator 40 10/22/17 12:30 92 26 130/70 100 Mechanical Ventilator 40 10/22/17 12:23 40 10/22/17 12:23 98.0 101 24 151/72 100 Mechanical Ventilator 40 98.0 Intake and Output 10/22/17 10/23/17 19:00 07:00 Intake Total 1068.0 ml 550 ml Output Total 300 ml 350 ml Balance 768.0 ml 200 ml IV Total 1068.0 ml 550 ml Output Urine Total 300 ml 350 ml Estimated Blood Loss 0 ml # Bowel Movements 3 1 HEENT: normocephalic, atraumatic Respiratory/Chest: chest wall non-tender, lungs clear, normal breath sounds Breasts: no masses Cardiovascular: normal peripheral pulses, normal rate Abdomen: normal bowel sounds, no organomegaly Extremities: no cyanosis Skin: no rash, no lesions 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: 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, normal mood/affect Microbiology Date/Time Source Procedure Growth Status 10/20/17 17:55 Blood Blood Culture - Preliminary NO GROWTH AFTER 48 HOURS Resulted 10/20/17 17:45 Blood Blood Culture - Preliminary Staphylococcus Sp Coag Neg Resulted 10/20/17 18:00 Indwelling Cath Urine Culture - Final NO GROWTH AFTER 48 HOURS Complete Laboratory Tests 10/22/17 22:18: Vancomycin Level Trough 24.3H 10/23/17 03:40: White Blood Count 9.4, Red Blood Count 2.61L, Hemoglobin 8.4L, Hematocrit 25.8L , Mean Corpuscular Volume 99, Mean Corpuscular Hemoglobin 32.2H, Mean Corpuscular Hemoglobin Concent 32.6, Red Cell Distribution Width 16.0H, Platelet Count 148L, Mean Platelet Volume 8.8, Neutrophils (%) (Auto) 69.8, Lymphocytes (%) (Auto) 17.6L, Monocytes (%) (Auto) 10.4H, Eosinophils (%) (Auto ) 1.0, Basophils (%) (Auto) 1.2, Prothrombin Time 10.4, Prothromb Time International Ratio 1.0, Activated Partial Thromboplast Time 28, Sodium Level 139, Potassium Level 3.9, Chloride Level 103, Carbon Dioxide Level 27, Anion Gap 9, Blood Urea Nitrogen 30H, Creatinine 0.7, Estimat Glomerular Filtration Rate , Glucose Level 77, Calcium Level 8.3L, Phosphorus Level 2.7, Magnesium Level 2.4, Total Bilirubin 7.2H, Direct Bilirubin 6.0H, Aspartate Amino Transf ( AST/SGOT) 660H, Alanine Aminotransferase (ALT/SGPT) 418H, Alkaline Phosphatase 2668H, Total Protein 6.8, Albumin 1.8L, Globulin 5.0, Albumin/Globulin Ratio 0.4L, Amylase Level 26, Lipase 62L 10/23/17 10:27: Vancomycin Level Trough 23.9H Current Medications Medications (Trade) Dose Ordered Sig/Hermes Route PRN Reason Start Time Stop Time Status Last Admin Dose Admin Acetaminophen (Tylenol) 650 mg Q6H PRN NG Fever/Headache/Mild Pain 10/14/17 17:00 11/10/17 16:59 10/20/17 17:30 Clotrimazole (Lotrimin) 1 applic EVERY 12 HOURS TOPIC 10/14/17 21:00 11/09/17 22:59 10/23/17 08:59 Dextrose (Dextrose 50%) 25 ml STAT PRN IV Hypoglycemia 10/18/17 08:30 11/17/17 08:29 Dextrose (Dextrose 50%) 50 ml STAT PRN IV Hypoglycemia 10/18/17 08:30 11/17/17 08:29 Diltiazem HCl (Cardizem) 30 mg BID NG 10/14/17 18:00 11/10/17 08:59 10/23/17 08:59 Insulin Aspart (NovoLOG) Q6HR SUBQ 10/18/17 12:00 11/17/17 11:59 10/21/17 23:23 Ketotifen Fumarate (Zatidor) 1 drop DAILY BOTH EYES 10/15/17 09:00 10/25/17 08:59 10/23/17 08:59 Morphine Sulfate (Morphine Sulfate) 1 mg Q4HR PRN IVP Moderate Pain (Pain Scale 4-6) 10/18/17 18:15 10/25/17 11:44 Morphine Sulfate (Morphine Sulfate) 2 mg Q4H PRN IVP Severe Pain (Pain Scale 7-10) 10/18/17 18:30 10/25/17 18:29 10/20/17 09:07 Pantoprazole (Protonix) 40 mg DAILY IVP 10/15/17 09:00 11/01/17 08:59 10/23/17 08:57 Piperacillin Sod/ Tazobactam Sod 3.375 gm/Dextrose 110 ml @ 220 mls/hr EVERY 8 HOURS IVPB 10/21/17 14:00 10/28/17 13:59 10/23/17 05:17 Vancomycin HCl (Vanco rx to dose) 1 ea DAILY PRN MISC Per rx protocol 10/20/17 17:15 11/19/17 17:14 Vancomycin HCl 500 mg/Sodium Chloride 110 ml @ 110 mls/hr Q24H IVPB 10/24/17 10:00 10/29/17 09:59 Tayler Liu MD Oct 23, 2017 11:33
[2017-10-23 12:00] VITALS: BP 115/58
--- NOTE | 2017-10-23 12:25 | General Progress Note ---
Assessment/Plan Assessment/Plan Assessment - Resp failure / ARDS / PNA - s/p trach - Abnormal LFT, Biliary obstruction - s/p 3rd ERCP, stone extraction, and stent - Jaundice - Anemia with OB (+) stools - Malnutrition - s/p PEG - AMS - improved - CMV PCR (+) Recommendations - follow labs / LFT - Restart TF - Minimize medication use, given LFT changes - transfuse PRN - Elevate HOB - Vent care - Monitor labs Subjective Allergies: Coded Allergies: No Known Allergies (Verified , 11/18/08) Subjective Above noted off feeds s/p ERCP and stone extraction and stent Objective Last 24 Hour Vital Signs Date Time Temp Pulse Resp B/P (MAP) Pulse Ox O2 Delivery O2 Flow Rate FiO2 10/23/17 11:07 73 18 40 10/23/17 09:24 71 18 40 10/23/17 08:59 72 148/67 10/23/17 08:01 40 10/23/17 08:00 80 10/23/17 08:00 97.2 72 30 148/67 100 Mechanical Ventilator 40 97.2 10/23/17 06:55 73 20 40 10/23/17 05:11 83 20 40 10/23/17 04:00 40 10/23/17 04:00 81 10/23/17 04:00 97.5 85 22 135/75 100 Mechanical Ventilator 40 97.5 10/23/17 03:05 81 20 40 10/23/17 01:27 77 20 40 10/23/17 00:00 74 10/23/17 00:00 97.7 77 18 136/66 100 Mechanical Ventilator 40 97.7 10/23/17 00:00 40 10/22/17 22:35 76 18 40 10/22/17 21:21 81 18 40 10/22/17 20:00 40 10/22/17 20:00 98 10/22/17 20:00 97.9 93 31 129/54 97 Mechanical Ventilator 40 97.9 10/22/17 19:20 80 18 40 10/22/17 17:09 84 109/54 10/22/17 16:48 84 20 40 10/22/17 16:00 80 10/22/17 16:00 97.5 85 18 109/54 97 Mechanical Ventilator 40 97.5 10/22/17 15:20 78 18 40 10/22/17 13:07 81 18 40 10/22/17 13:05 208.4 99 18 99 10/22/17 13:03 208.4 101 18 99 10/22/17 12:51 40 10/22/17 12:50 97.6 77 18 122/55 100 Mechanical Ventilator 40 97.6 10/22/17 12:40 80 22 130/55 100 Mechanical Ventilator 40 10/22/17 12:35 88 18 127/63 100 Mechanical Ventilator 40 10/22/17 12:30 92 26 130/70 100 Mechanical Ventilator 40 10/22/17 12:23 40 10/22/17 12:23 98.0 101 24 151/72 100 Mechanical Ventilator 40 98.0 Intake and Output 10/22/17 10/23/17 19:00 07:00 Intake Total 1068.0 ml 550 ml Output Total 300 ml 350 ml Balance 768.0 ml 200 ml IV Total 1068.0 ml 550 ml Output Urine Total 300 ml 350 ml Estimated Blood Loss 0 ml # Bowel Movements 3 1 Laboratory Tests 10/22/17 22:18: Vancomycin Level Trough 24.3H 10/23/17 03:40: White Blood Count 9.4, Red Blood Count 2.61L, Hemoglobin 8.4L, Hematocrit 25.8L , Mean Corpuscular Volume 99, Mean Corpuscular Hemoglobin 32.2H, Mean Corpuscular Hemoglobin Concent 32.6, Red Cell Distribution Width 16.0H, Platelet Count 148L, Mean Platelet Volume 8.8, Neutrophils (%) (Auto) 69.8, Lymphocytes (%) (Auto) 17.6L, Monocytes (%) (Auto) 10.4H, Eosinophils (%) (Auto ) 1.0, Basophils (%) (Auto) 1.2, Prothrombin Time 10.4, Prothromb Time International Ratio 1.0, Activated Partial Thromboplast Time 28, Sodium Level 139, Potassium Level 3.9, Chloride Level 103, Carbon Dioxide Level 27, Anion Gap 9, Blood Urea Nitrogen 30H, Creatinine 0.7, Estimat Glomerular Filtration Rate , Glucose Level 77, Calcium Level 8.3L, Phosphorus Level 2.7, Magnesium Level 2.4, Total Bilirubin 7.2H, Direct Bilirubin 6.0H, Aspartate Amino Transf ( AST/SGOT) 660H, Alanine Aminotransferase (ALT/SGPT) 418H, Alkaline Phosphatase 2668H, Total Protein 6.8, Albumin 1.8L, Globulin 5.0, Albumin/Globulin Ratio 0.4L, Amylase Level 26, Lipase 62L 10/23/17 10:27: Vancomycin Level Trough 23.9H Height (Feet): 5 Height (Inches): 5.00 Weight (Pounds): 82 Objective WDWN NCAT supple, (+) trach CTA RRR abd soft , (+) GT (+) LE edema opens eyes ARNULFO DURON Oct 23, 2017 12:25
--- NOTE | 2017-10-23 12:34 | Nephrology Progress Note ---
Assessment/Plan Problem List: (1) ARDS (adult respiratory distress syndrome) (2) Electrolyte imbalance (3) Thrombocytopenia Assessment worsening leukocytosis (1) ARDS (adult respiratory distress syndrome) s/p Trach (2) Aspiration pneumonia (3) Protein-calorie malnutrition, severe (4) Diabetes mellitus (5) Anemia , aplastic by history (6) DM (7) UTI (8) Electrolyte imbalance (9) HTN (10) Depression (11) RA . Plan stable from renal stand - had trach and PEG water via NGT Adjust BP meds K and Phos supplement as needed Monitor renal parameters and urine output avoid nephrotoxics per orders discussed with RN Left ventricular ejection fraction estimated to be 55 %. Subjective ROS Limited/Unobtainable: No Objective Objective Last 24 Hour Vital Signs Date Time Temp Pulse Resp B/P (MAP) Pulse Ox O2 Delivery O2 Flow Rate FiO2 10/23/17 11:07 73 18 40 10/23/17 09:24 71 18 40 10/23/17 08:59 72 148/67 10/23/17 08:01 40 10/23/17 08:00 80 10/23/17 08:00 97.2 72 30 148/67 100 Mechanical Ventilator 40 97.2 10/23/17 06:55 73 20 40 10/23/17 05:11 83 20 40 10/23/17 04:00 40 10/23/17 04:00 81 10/23/17 04:00 97.5 85 22 135/75 100 Mechanical Ventilator 40 97.5 10/23/17 03:05 81 20 40 10/23/17 01:27 77 20 40 10/23/17 00:00 74 10/23/17 00:00 97.7 77 18 136/66 100 Mechanical Ventilator 40 97.7 10/23/17 00:00 40 10/22/17 22:35 76 18 40 10/22/17 21:21 81 18 40 10/22/17 20:00 40 10/22/17 20:00 98 10/22/17 20:00 97.9 93 31 129/54 97 Mechanical Ventilator 40 97.9 10/22/17 19:20 80 18 40 10/22/17 17:09 84 109/54 10/22/17 16:48 84 20 40 10/22/17 16:00 80 10/22/17 16:00 97.5 85 18 109/54 97 Mechanical Ventilator 40 97.5 10/22/17 15:20 78 18 40 10/22/17 13:07 81 18 40 10/22/17 13:05 208.4 99 18 99 10/22/17 13:03 208.4 101 18 99 10/22/17 12:51 40 10/22/17 12:50 97.6 77 18 122/55 100 Mechanical Ventilator 40 97.6 10/22/17 12:40 80 22 130/55 100 Mechanical Ventilator 40 10/22/17 12:35 88 18 127/63 100 Mechanical Ventilator 40 Intake and Output 10/22/17 10/23/17 19:00 07:00 Intake Total 1068.0 ml 550 ml Output Total 300 ml 350 ml Balance 768.0 ml 200 ml IV Total 1068.0 ml 550 ml Output Urine Total 300 ml 350 ml Estimated Blood Loss 0 ml # Bowel Movements 3 1 Laboratory Tests 10/22/17 22:18: Vancomycin Level Trough 24.3H 10/23/17 03:40: White Blood Count 9.4, Red Blood Count 2.61L, Hemoglobin 8.4L, Hematocrit 25.8L , Mean Corpuscular Volume 99, Mean Corpuscular Hemoglobin 32.2H, Mean Corpuscular Hemoglobin Concent 32.6, Red Cell Distribution Width 16.0H, Platelet Count 148L, Mean Platelet Volume 8.8, Neutrophils (%) (Auto) 69.8, Lymphocytes (%) (Auto) 17.6L, Monocytes (%) (Auto) 10.4H, Eosinophils (%) (Auto ) 1.0, Basophils (%) (Auto) 1.2, Prothrombin Time 10.4, Prothromb Time International Ratio 1.0, Activated Partial Thromboplast Time 28, Sodium Level 139, Potassium Level 3.9, Chloride Level 103, Carbon Dioxide Level 27, Anion Gap 9, Blood Urea Nitrogen 30H, Creatinine 0.7, Estimat Glomerular Filtration Rate , Glucose Level 77, Calcium Level 8.3L, Phosphorus Level 2.7, Magnesium Level 2.4, Total Bilirubin 7.2H, Direct Bilirubin 6.0H, Aspartate Amino Transf ( AST/SGOT) 660H, Alanine Aminotransferase (ALT/SGPT) 418H, Alkaline Phosphatase 2668H, Total Protein 6.8, Albumin 1.8L, Globulin 5.0, Albumin/Globulin Ratio 0.4L, Amylase Level 26, Lipase 62L 10/23/17 10:27: Vancomycin Level Trough 23.9H Height (Feet): 5 Height (Inches): 5.00 Weight (Pounds): 82 General Appearance: no apparent distress, lethargic Respiratory/Chest: decreased breath sounds Abdomen: soft Objective no change YAEL HANSEN Oct 23, 2017 12:34
[2017-10-23 16:00] VITALS: BP 120/67
--- NOTE | 2017-10-23 17:13 | Infectious Diseases Prog Note ---
Assessment/Plan Assessment/Plan The patient is a 76-year-old female w 10/20 BCx : 07/16 CoNS ( m/l Contaminant, no Ctr line ) Fever , SP Leukocytosis, SP Cholangitis, Abnormal liver function tests, ALP>>> AST - worsening -SP ERCP 10/22 choledocholithiasis -s/p ERCP 10/08: Intraoperative images demonstrate faint opacification of the common bile duct, and placement of a new plastic endobiliary stent. What may be a previous malpositioned biliary stent is seen to the left of the endoscope -s/p ERCP with stent placement 10/01 -EUS 09/30: 1. Dilated common bile duct with lots of sludge in the distal common bile duct, most probably explanation for abnormal liver function tests. Large ascites Hep panel : neg Community-acquired vs healthcare-associated pneumonia, s/p RX 10/13 SP Fiberoptic bronchoscopy, bronchoalveolar lavage, upper airway endoscopy for percutaneous tracheostomy, bronchoscopy through tracheostomy BAL : Laila an Nl devon , AFB : Neg Viral Cx : NegTD -CT chest 10/07: Extensive diffuse bilateral pulmonary parenchymal disease, slightly worse than on prior exam of 09/23/2017. Main differential considerations include pneumonia, ARDS, pulmonary edema, among multiple other possibilities. Bilateral moderate to large pleural effusions, slightly increased in size from 09/23/2017. Nasogastric and endotracheal tubes in good position. Evidence of generalized anasarca, with diffuse subcutaneous soft tissue edema. 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 Depression. Anemia. Rheumatoid arthritis. History of gastritis. PLAN: pt on Zosyn d # / ( Empirically ) , DC IV Vanco d# 4 - 10/11 SP Ertapenem #7/7 10/09 SP MIcafungin #10 10/02 SP Amikacin #10 09/30 SP Flagyl #8 09/25 sp Fluconazole #3 (held due to rise ALP) 09/23 SP Meropenem #5, PO Vanco #2 09/21 SP tamiflu #10 -f/u AFB cultures ( BAL) : P -f/u Asp ag, fungitell, Cocci ab, fungal sp cx (called lab on 10/09 for f/u on these tests; ) Monitor CBC.; Monitor BMP.; Trend LFTs Monitor chest x-ray -GI, heme onc f/u - Monitor Culture ( Bl, Sp ) Subjective Allergies: Coded Allergies: No Known Allergies (Verified , 11/18/08) Subjective Afebrile none verbal Objective Vital Signs Last 24 Hour Vital Signs Date Time Temp Pulse Resp B/P (MAP) Pulse Ox O2 Delivery O2 Flow Rate FiO2 10/23/17 16:00 40 10/23/17 16:00 97.7 85 34 120/67 100 Mechanical Ventilator 40 97.7 10/23/17 16:00 73 10/23/17 15:04 74 18 40 10/23/17 13:07 70 20 40 10/23/17 12:00 97.5 76 30 115/58 100 Mechanical Ventilator 40 97.5 10/23/17 12:00 40 10/23/17 12:00 76 10/23/17 11:07 73 18 40 10/23/17 09:24 71 18 40 10/23/17 08:59 72 148/67 10/23/17 08:01 40 10/23/17 08:00 80 10/23/17 08:00 97.2 72 30 148/67 100 Mechanical Ventilator 40 97.2 10/23/17 06:55 73 20 40 10/23/17 05:11 83 20 40 10/23/17 04:00 40 10/23/17 04:00 81 10/23/17 04:00 97.5 85 22 135/75 100 Mechanical Ventilator 40 97.5 10/23/17 03:05 81 20 40 10/23/17 01:27 77 20 40 10/23/17 00:00 74 10/23/17 00:00 97.7 77 18 136/66 100 Mechanical Ventilator 40 97.7 10/23/17 00:00 40 10/22/17 22:35 76 18 40 10/22/17 21:21 81 18 40 10/22/17 20:00 40 10/22/17 20:00 98 10/22/17 20:00 97.9 93 31 129/54 97 Mechanical Ventilator 40 97.9 10/22/17 19:20 80 18 40 10/22/17 17:09 84 109/54 Height (Feet): 5 Height (Inches): 5.00 Weight (Pounds): 82 HEENT: atraumatic Respiratory/Chest: normal breath sounds Cardiovascular: regular rhythm Abdomen: soft, non tender Microbiology Date/Time Source Procedure Growth Status 10/20/17 17:55 Blood Blood Culture - Preliminary NO GROWTH AFTER 48 HOURS Resulted 10/20/17 17:45 Blood Blood Culture - Preliminary Staphylococcus Sp Coag Neg Resulted 10/20/17 18:00 Indwelling Cath Urine Culture - Final NO GROWTH AFTER 48 HOURS Complete Laboratory Tests Test 10/22/17 22:18 10/23/17 03:40 10/23/17 10:27 Vancomycin Level Trough 24.3 ug/mL (5.0-12.0) H 23.9 ug/mL (5.0-12.0) H White Blood Count 9.4 K/UL (4.8-10.8) Red Blood Count 2.61 M/UL (4.20-5.40) L Hemoglobin 8.4 G/DL (12.0-16.0) L Hematocrit 25.8 % (37.0-47.0) L Mean Corpuscular Volume 99 FL (80-99) Mean Corpuscular Hemoglobin 32.2 PG (27.0-31.0) H Mean Corpuscular Hemoglobin Concent 32.6 G/DL (32.0-36.0) Red Cell Distribution Width 16.0 % (11.6-14.8) H Platelet Count 148 K/UL (150-450) L Mean Platelet Volume 8.8 FL (6.5-10.1) Neutrophils (%) (Auto) 69.8 % (45.0-75.0) Lymphocytes (%) (Auto) 17.6 % (20.0-45.0) L Monocytes (%) (Auto) 10.4 % (1.0-10.0) H Eosinophils (%) (Auto) 1.0 % (0.0-3.0) Basophils (%) (Auto) 1.2 % (0.0-2.0) Prothrombin Time 10.4 SEC (9.30-11.50) Prothromb Time International Ratio 1.0 (0.9-1.1) Activated Partial Thromboplast Time 28 SEC (23-33) Sodium Level 139 MMOL/L (136-145) Potassium Level 3.9 MMOL/L (3.5-5.1) Chloride Level 103 MMOL/L (98-107) Carbon Dioxide Level 27 MMOL/L (21-32) Anion Gap 9 mmol/L (5-15) Blood Urea Nitrogen 30 mg/dL (7-18) H Creatinine 0.7 MG/DL (0.55-1.30) Estimat Glomerular Filtration Rate mL/min (>60) Glucose Level 77 MG/DL (74-106) Calcium Level 8.3 MG/DL (8.5-10.1) L Phosphorus Level 2.7 MG/DL (2.5-4.9) Magnesium Level 2.4 MG/DL (1.8-2.4) Total Bilirubin 7.2 MG/DL (0.2-1.0) H Direct Bilirubin 6.0 MG/DL (0.0-0.3) H Aspartate Amino Transf (AST/SGOT) 660 U/L (15-37) H Alanine Aminotransferase (ALT/SGPT) 418 U/L (12-78) H Alkaline Phosphatase 2668 U/L (46-116) H Total Protein 6.8 G/DL (6.4-8.2) Albumin 1.8 G/DL (3.4-5.0) L Globulin 5.0 g/dL Albumin/Globulin Ratio 0.4 (1.0-2.7) L Amylase Level 26 U/L (25-115) Lipase 62 U/L (73-393) L Current Medications Medications (Trade) Dose Ordered Sig/Hermes Route PRN Reason Start Time Stop Time Status Last Admin Dose Admin Acetaminophen (Tylenol) 650 mg Q6H PRN NG Fever/Headache/Mild Pain 10/14/17 17:00 11/10/17 16:59 10/20/17 17:30 Clotrimazole (Lotrimin) 1 applic EVERY 12 HOURS TOPIC 10/14/17 21:00 11/09/17 22:59 10/23/17 08:59 Dextrose (Dextrose 50%) 25 ml STAT PRN IV Hypoglycemia 10/18/17 08:30 11/17/17 08:29 Dextrose (Dextrose 50%) 50 ml STAT PRN IV Hypoglycemia 10/18/17 08:30 11/17/17 08:29 Diltiazem HCl (Cardizem) 30 mg BID NG 10/14/17 18:00 11/10/17 08:59 10/23/17 08:59 Insulin Aspart (NovoLOG) Q6HR SUBQ 10/18/17 12:00 11/17/17 11:59 10/23/17 16:58 Ketotifen Fumarate (Zatidor) 1 drop DAILY BOTH EYES 10/15/17 09:00 10/25/17 08:59 10/23/17 08:59 Morphine Sulfate (Morphine Sulfate) 1 mg Q4HR PRN IVP Moderate Pain (Pain Scale 4-6) 10/18/17 18:15 10/25/17 11:44 Morphine Sulfate (Morphine Sulfate) 2 mg Q4H PRN IVP Severe Pain (Pain Scale 7-10) 10/18/17 18:30 10/25/17 18:29 10/20/17 09:07 Pantoprazole (Protonix) 40 mg DAILY IVP 10/15/17 09:00 11/01/17 08:59 10/23/17 08:57 Piperacillin Sod/ Tazobactam Sod 3.375 gm/Dextrose 110 ml @ 220 mls/hr EVERY 8 HOURS IVPB 10/21/17 14:00 10/28/17 13:59 10/23/17 14:00 Vancomycin HCl (Vanco rx to dose) 1 ea DAILY PRN MISC Per rx protocol 10/20/17 17:15 11/19/17 17:14 Vancomycin HCl 500 mg/Sodium Chloride 110 ml @ 110 mls/hr Q24H IVPB 10/24/17 10:00 10/29/17 09:59 Edis Hunter MD Oct 23, 2017 17:13
--- NOTE | 2017-10-23 17:38 | Internal Med Progress Note ---
Subjective Date of Service: Oct 23, 2017 Physician Name Sina Bowens Attending Physician Jesus Barahona MD Current Medications Medications (Trade) Dose Ordered Sig/Hermes Route PRN Reason Start Time Stop Time Status Last Admin Dose Admin Acetaminophen (Tylenol) 650 mg Q6H PRN NG Fever/Headache/Mild Pain 10/14/17 17:00 11/10/17 16:59 10/20/17 17:30 Clotrimazole (Lotrimin) 1 applic EVERY 12 HOURS TOPIC 10/14/17 21:00 11/09/17 22:59 10/23/17 08:59 Dextrose (Dextrose 50%) 25 ml STAT PRN IV Hypoglycemia 10/18/17 08:30 11/17/17 08:29 Dextrose (Dextrose 50%) 50 ml STAT PRN IV Hypoglycemia 10/18/17 08:30 11/17/17 08:29 Diltiazem HCl (Cardizem) 30 mg BID NG 10/14/17 18:00 11/10/17 08:59 10/23/17 08:59 Insulin Aspart (NovoLOG) Q6HR SUBQ 10/18/17 12:00 11/17/17 11:59 10/23/17 16:58 Ketotifen Fumarate (Zatidor) 1 drop DAILY BOTH EYES 10/15/17 09:00 10/25/17 08:59 10/23/17 08:59 Morphine Sulfate (Morphine Sulfate) 1 mg Q4HR PRN IVP Moderate Pain (Pain Scale 4-6) 10/18/17 18:15 10/25/17 11:44 Morphine Sulfate (Morphine Sulfate) 2 mg Q4H PRN IVP Severe Pain (Pain Scale 7-10) 10/18/17 18:30 10/25/17 18:29 10/20/17 09:07 Pantoprazole (Protonix) 40 mg DAILY IVP 10/15/17 09:00 11/01/17 08:59 10/23/17 08:57 Piperacillin Sod/ Tazobactam Sod 3.375 gm/Dextrose 110 ml @ 220 mls/hr EVERY 8 HOURS IVPB 10/21/17 14:00 10/28/17 13:59 10/23/17 14:00 Vancomycin HCl (Vanco rx to dose) 1 ea DAILY PRN MISC Per rx protocol 10/20/17 17:15 11/19/17 17:14 Vancomycin HCl 500 mg/Sodium Chloride 110 ml @ 110 mls/hr Q24H IVPB 10/24/17 10:00 10/29/17 09:59 Allergies: Coded Allergies: No Known Allergies (Verified , 11/18/08) ROS Limited/Unobtainable: Yes Subjective 76 YO F admitted with Shortness of breath, now respiratory failure. Intubated and sedated. Cover for Internal Med-Dr. Barahona. RAJINDER . S/P ERCP 10/08/17. S/P Tracheostomy and bronchoscopy 10/13/17. Await transfer to [facility] Objective Last Vital Signs Date Time Temp Pulse Resp B/P (MAP) Pulse Ox O2 Delivery O2 Flow Rate FiO2 10/23/17 16:45 99 17 40 10/23/17 16:00 97.7 120/67 100 Mechanical Ventilator 97.7 Laboratory Tests Test 10/22/17 22:18 10/23/17 03:40 10/23/17 10:27 Vancomycin Level Trough 24.3 ug/mL (5.0-12.0) H 23.9 ug/mL (5.0-12.0) H White Blood Count 9.4 K/UL (4.8-10.8) Red Blood Count 2.61 M/UL (4.20-5.40) L Hemoglobin 8.4 G/DL (12.0-16.0) L Hematocrit 25.8 % (37.0-47.0) L Mean Corpuscular Volume 99 FL (80-99) Mean Corpuscular Hemoglobin 32.2 PG (27.0-31.0) H Mean Corpuscular Hemoglobin Concent 32.6 G/DL (32.0-36.0) Red Cell Distribution Width 16.0 % (11.6-14.8) H Platelet Count 148 K/UL (150-450) L Mean Platelet Volume 8.8 FL (6.5-10.1) Neutrophils (%) (Auto) 69.8 % (45.0-75.0) Lymphocytes (%) (Auto) 17.6 % (20.0-45.0) L Monocytes (%) (Auto) 10.4 % (1.0-10.0) H Eosinophils (%) (Auto) 1.0 % (0.0-3.0) Basophils (%) (Auto) 1.2 % (0.0-2.0) Prothrombin Time 10.4 SEC (9.30-11.50) Prothromb Time International Ratio 1.0 (0.9-1.1) Activated Partial Thromboplast Time 28 SEC (23-33) Sodium Level 139 MMOL/L (136-145) Potassium Level 3.9 MMOL/L (3.5-5.1) Chloride Level 103 MMOL/L (98-107) Carbon Dioxide Level 27 MMOL/L (21-32) Anion Gap 9 mmol/L (5-15) Blood Urea Nitrogen 30 mg/dL (7-18) H Creatinine 0.7 MG/DL (0.55-1.30) Estimat Glomerular Filtration Rate mL/min (>60) Glucose Level 77 MG/DL (74-106) Calcium Level 8.3 MG/DL (8.5-10.1) L Phosphorus Level 2.7 MG/DL (2.5-4.9) Magnesium Level 2.4 MG/DL (1.8-2.4) Total Bilirubin 7.2 MG/DL (0.2-1.0) H Direct Bilirubin 6.0 MG/DL (0.0-0.3) H Aspartate Amino Transf (AST/SGOT) 660 U/L (15-37) H Alanine Aminotransferase (ALT/SGPT) 418 U/L (12-78) H Alkaline Phosphatase 2668 U/L (46-116) H Total Protein 6.8 G/DL (6.4-8.2) Albumin 1.8 G/DL (3.4-5.0) L Globulin 5.0 g/dL Albumin/Globulin Ratio 0.4 (1.0-2.7) L Amylase Level 26 U/L (25-115) Lipase 62 U/L (73-393) L Microbiology Date/Time Source Procedure Growth Status 10/20/17 17:55 Blood Blood Culture - Preliminary NO GROWTH AFTER 48 HOURS Resulted 10/20/17 17:45 Blood Blood Culture - Preliminary Staphylococcus Sp Coag Neg Resulted 10/20/17 18:00 Indwelling Cath Urine Culture - Final NO GROWTH AFTER 48 HOURS Complete Intake and Output 10/22/17 10/23/17 19:00 07:00 Intake Total 1068.0 ml 550 ml Output Total 300 ml 350 ml Balance 768.0 ml 200 ml IV Total 1068.0 ml 550 ml Output Urine Total 300 ml 350 ml Estimated Blood Loss 0 ml # Bowel Movements 3 1 Objective General Appearance: lethargic, thin EENT: normal ENT inspection Neck: Trach; non-tender, normal alignment, supple Cardiovascular: normal peripheral pulses, normal rate, regular rhythm, no gallop/murmur, no JVD Respiratory/Chest: Mechanical vent; trach; ; respiratory distress, crackles/ rales, rhonchi - bilaterally, expiratory wheezing Abdomen: normal bowel sounds, non tender, soft, no organomegaly, no mass Skin: normal pigmentation, warm/dry Assessment/Plan Problem List: (1) HTN (hypertension) Assessment & Plan: Currently hypotensive. (2) Arthritis, rheumatoid (3) Parkinsons disease (4) Aplastic anemia (5) GERD (gastroesophageal reflux disease) (6) Respiratory failure Assessment & Plan: S/P Tracheostomy and broncholsopy 10/13/17. Cont vent per pulmonary (7) Pneumonia (8) Dyspnea (9) Sepsis Assessment & Plan: Blood culture neg. Continue Amikacin, micafungin and flagyl per ID (10) ARDS (adult respiratory distress syndrome) Assessment & Plan: See pulmonary note (11) UTI (urinary tract infection) Assessment & Plan: E.Coli. Continue abx per ID (12) Anemia Assessment & Plan: S/P Transfusion 4 units PRBC (13) Diabetes mellitus, type II Assessment & Plan: Continue novolog sliding scale (14) Leukocytosis Assessment & Plan: Worsening. See ID note. Start amikacin and fluconazole (15) Thrombocytopenia (16) Gallbladder sludge Assessment & Plan: s/P ERCP 10/01, 10/07/17 and 10/08/17 (17) Coagulopathy Assessment & Plan: S/P FFP and Vit K Assessment/Plan Discharge planning: [facility] SINA BOWENS Oct 23, 2017 17:38
[2017-10-23 20:00] VITALS: BP 120/62
--- NOTE | 2017-10-23 20:38 | General Progress Note ---
Assessment/Plan Assessment/Plan #. Sepsis. --> Leukocytosis likely related to underlying pneumonia infection. --> Wbc count elevated. Improved and downtrended. --> On Iv antibiotics. Monitor for improvement. #. Coagulopathy - potentially related to DIC early onset, review hapto, inr repeat, fibrinogen, DIC panel --> S/P FFP and Vit K --> DW pulm Dr. Parekh --> Likely related to infection versus other cause. On antibiotics. --> Prophylaxis. #. Anemia due to underlying chronic disease. Continue to closely monitor. --> Hemoglobin goal is above 7. --> S/P blood transfusion as hemoglobin levels fell low. --> Occult blood detected. Consider GI recs. --> Transfuse as necessary --> Blood transfusion not required unless symptomatic or hgb below goal. #. Pancytopenia --> WBC count and platelet counts are within normal levels now. --> Hemoglobin levels downtrended. Transfuse if continues to drop. --> S/P Platelet transfusion --> Monitor and trend cbc daily. #. Thrombocytopenia, severe and progressive, acute onset, likely secondary to underlying infection, aspiration, hit was negative --> Duplex of the lower extremities is negative, therefore less likely HIT and other causes are more likely such as underlying infection. --> Platelets goal >20k, transfuse if necessary. --> On antibiotics as per ID --> Platelet count has been downtrending, monitor closely. #. Respiratory failure, vent dependent --> acute respiratory distress syndrome. --> S/P tracheostomy. Cont vent per pulmonary. #. Community-acquired pneumonia versus hospital-acquired. --> The patient on broad-spectrum antibiotics. --> Improved. --> Urine culture growing E. coli. Continue to closely monitor. #. Transaminitis. She has been seen by GI Service. Continue to closely monitor. #. Low-grade fever. Closely observe. #. Encephalopathy. Parkinson's Disease. #. Diabetes mellitus II. #. Tube feeding. #. Hypertension. --> BP currently normal Subjective Date patient seen: Oct 22, 2017 Constitutional: Denies: no symptoms, chills, diaphoresis, fever, malaise, weakness, other HEENT: Denies: no symptoms, eye pain, blurred vision, tearing, double vision, ear pain, ear discharge, nose pain, nose congestion, throat pain, throat swelling, mouth pain, mouth swelling, other Cardiovascular: Denies: no symptoms, chest pain, edema, irregular heart rate, lightheadedness, palpitations, syncope, other Respiratory: Denies: no symptoms, cough, orthopnea, shortness of breath, SOB with excertion, SOB at rest, sputum, stridor, wheezing, other Gastrointestinal/Abdominal: Denies: no symptoms, abdomen distended, abdominal pain, black stools, tarry stools, blood in stool, constipated, diarrhea, difficulty swallowing, nausea, poor appetite, poor fluid intake, rectal bleeding , vomiting, other Genitourinary: Denies: no symptoms, burning, discharge, frequency, flank pain, hematuria, incontinence, pain, urgency, other 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: Denies: no symptoms, anxiety, depressed, emotional problems, headache, numbness, paresthesia, pre-existing deficit, seizure, tingling, tremors, weakness, other Hematologic/Lymphatic: Reports: anemia Allergies: Coded Allergies: No Known Allergies (Verified , 11/18/08) Subjective Intubated and sedated. Wbc count downtrended. Objective Last 24 Hour Vital Signs Date Time Temp Pulse Resp B/P (MAP) Pulse Ox O2 Delivery O2 Flow Rate FiO2 10/23/17 19:30 75 34 40 10/23/17 18:00 93 120/67 10/23/17 16:45 93 29 40 10/23/17 16:00 40 10/23/17 16:00 97.7 85 34 120/67 100 Mechanical Ventilator 40 97.7 10/23/17 16:00 73 10/23/17 15:04 74 18 40 10/23/17 13:07 70 20 40 10/23/17 12:00 97.5 76 30 115/58 100 Mechanical Ventilator 40 97.5 10/23/17 12:00 40 10/23/17 12:00 76 10/23/17 11:07 73 18 40 10/23/17 09:24 71 18 40 10/23/17 08:59 72 148/67 10/23/17 08:01 40 10/23/17 08:00 80 10/23/17 08:00 97.2 72 30 148/67 100 Mechanical Ventilator 40 97.2 10/23/17 06:55 73 20 40 10/23/17 05:11 83 20 40 10/23/17 04:00 40 10/23/17 04:00 81 10/23/17 04:00 97.5 85 22 135/75 100 Mechanical Ventilator 40 97.5 10/23/17 03:05 81 20 40 10/23/17 01:27 77 20 40 10/23/17 00:00 74 10/23/17 00:00 97.7 77 18 136/66 100 Mechanical Ventilator 40 97.7 10/23/17 00:00 40 10/22/17 22:35 76 18 40 10/22/17 21:21 81 18 40 Intake and Output 10/22/17 10/23/17 19:00 07:00 Intake Total 1068.0 ml 550 ml Output Total 300 ml 350 ml Balance 768.0 ml 200 ml IV Total 1068.0 ml 550 ml Output Urine Total 300 ml 350 ml Estimated Blood Loss 0 ml # Bowel Movements 3 1 Laboratory Tests 10/22/17 22:18: Vancomycin Level Trough 24.3H 10/23/17 03:40: White Blood Count 9.4, Red Blood Count 2.61L, Hemoglobin 8.4L, Hematocrit 25.8L , Mean Corpuscular Volume 99, Mean Corpuscular Hemoglobin 32.2H, Mean Corpuscular Hemoglobin Concent 32.6, Red Cell Distribution Width 16.0H, Platelet Count 148L, Mean Platelet Volume 8.8, Neutrophils (%) (Auto) 69.8, Lymphocytes (%) (Auto) 17.6L, Monocytes (%) (Auto) 10.4H, Eosinophils (%) (Auto ) 1.0, Basophils (%) (Auto) 1.2, Prothrombin Time 10.4, Prothromb Time International Ratio 1.0, Activated Partial Thromboplast Time 28, Sodium Level 139, Potassium Level 3.9, Chloride Level 103, Carbon Dioxide Level 27, Anion Gap 9, Blood Urea Nitrogen 30H, Creatinine 0.7, Estimat Glomerular Filtration Rate , Glucose Level 77, Calcium Level 8.3L, Phosphorus Level 2.7, Magnesium Level 2.4, Total Bilirubin 7.2H, Direct Bilirubin 6.0H, Aspartate Amino Transf ( AST/SGOT) 660H, Alanine Aminotransferase (ALT/SGPT) 418H, Alkaline Phosphatase 2668H, Total Protein 6.8, Albumin 1.8L, Globulin 5.0, Albumin/Globulin Ratio 0.4L, Amylase Level 26, Lipase 62L 10/23/17 10:27: Vancomycin Level Trough 23.9H Height (Feet): 5 Height (Inches): 5.00 Weight (Pounds): 82 General Appearance: confused Respiratory/Chest: decreased breath sounds Johnny Sinha MD Oct 23, 2017 20:38
--- NOTE | 2017-10-23 22:54 | General Progress Note ---
Assessment/Plan Problem List: (1) Arthritis, rheumatoid ICD Codes: M06.9 - Rheumatoid arthritis, unspecified SNOMED: 85413133 (2) Aspiration pneumonia ICD Codes: J69.0 - Pneumonitis due to inhalation of food and vomit SNOMED: 211041718 (3) Diabetes mellitus ICD Codes: E11.9 - Type 2 diabetes mellitus without complications SNOMED: 45253285 (4) ARDS (adult respiratory distress syndrome) ICD Codes: J80 - Acute respiratory distress syndrome SNOMED: 90694560 (5) Transaminitis ICD Codes: R74.0 - Nonspecific elevation of levels of transaminase and lactic acid dehydrogenase [LDH] SNOMED: 628960245, 294064101 (6) Dyspnea ICD Codes: R06.00 - Dyspnea, unspecified SNOMED: 822543153 (7) Parkinsons disease ICD Codes: G20 - Parkinson's disease SNOMED: 67888452 (8) Sepsis ICD Codes: A41.9 - Sepsis, unspecified organism SNOMED: 12549050 (9) GERD (gastroesophageal reflux disease) ICD Codes: K21.9 - Gastro-esophageal reflux disease without esophagitis SNOMED: 239383827 (10) Aplastic anemia ICD Codes: D61.9 - Aplastic anemia, unspecified SNOMED: 888725726 (11) Pneumonia ICD Codes: J18.9 - Pneumonia, unspecified organism SNOMED: 986399215 (12) HTN (hypertension) ICD Codes: I10 - Essential (primary) hypertension SNOMED: 50038190 Assessment/Plan Encephalopathy, agitation, psychotic disorder. -cont current meds -ativan prn Subjective Allergies: Coded Allergies: No Known Allergies (Verified , 11/18/08) Subjective more alert however anxious and not following commands the pts mental condition was unchanged Objective Last 24 Hour Vital Signs Date Time Temp Pulse Resp B/P (MAP) Pulse Ox O2 Delivery O2 Flow Rate FiO2 10/23/17 21:14 71 32 40 10/23/17 20:00 40 10/23/17 20:00 71 10/23/17 20:00 98.0 80 26 120/62 100 Mechanical Ventilator 40 98.0 10/23/17 19:30 75 34 40 10/23/17 18:00 93 120/67 10/23/17 16:45 93 29 40 10/23/17 16:00 40 10/23/17 16:00 97.7 85 34 120/67 100 Mechanical Ventilator 40 97.7 10/23/17 16:00 73 10/23/17 15:04 74 18 40 10/23/17 13:07 70 20 40 10/23/17 12:00 97.5 76 30 115/58 100 Mechanical Ventilator 40 97.5 10/23/17 12:00 40 10/23/17 12:00 76 10/23/17 11:07 73 18 40 10/23/17 09:24 71 18 40 10/23/17 08:59 72 148/67 10/23/17 08:01 40 10/23/17 08:00 80 10/23/17 08:00 97.2 72 30 148/67 100 Mechanical Ventilator 40 97.2 10/23/17 06:55 73 20 40 10/23/17 05:11 83 20 40 10/23/17 04:00 40 10/23/17 04:00 81 10/23/17 04:00 97.5 85 22 135/75 100 Mechanical Ventilator 40 97.5 10/23/17 03:05 81 20 40 10/23/17 01:27 77 20 40 10/23/17 00:00 74 10/23/17 00:00 97.7 77 18 136/66 100 Mechanical Ventilator 40 97.7 10/23/17 00:00 40 Intake and Output 10/22/17 10/23/17 19:00 07:00 Intake Total 1068.0 ml 550 ml Output Total 300 ml 350 ml Balance 768.0 ml 200 ml IV Total 1068.0 ml 550 ml Output Urine Total 300 ml 350 ml Estimated Blood Loss 0 ml # Bowel Movements 3 1 Laboratory Tests 10/23/17 03:40: White Blood Count 9.4, Red Blood Count 2.61L, Hemoglobin 8.4L, Hematocrit 25.8L , Mean Corpuscular Volume 99, Mean Corpuscular Hemoglobin 32.2H, Mean Corpuscular Hemoglobin Concent 32.6, Red Cell Distribution Width 16.0H, Platelet Count 148L, Mean Platelet Volume 8.8, Neutrophils (%) (Auto) 69.8, Lymphocytes (%) (Auto) 17.6L, Monocytes (%) (Auto) 10.4H, Eosinophils (%) (Auto ) 1.0, Basophils (%) (Auto) 1.2, Prothrombin Time 10.4, Prothromb Time International Ratio 1.0, Activated Partial Thromboplast Time 28, Sodium Level 139, Potassium Level 3.9, Chloride Level 103, Carbon Dioxide Level 27, Anion Gap 9, Blood Urea Nitrogen 30H, Creatinine 0.7, Estimat Glomerular Filtration Rate , Glucose Level 77, Calcium Level 8.3L, Phosphorus Level 2.7, Magnesium Level 2.4, Total Bilirubin 7.2H, Direct Bilirubin 6.0H, Aspartate Amino Transf ( AST/SGOT) 660H, Alanine Aminotransferase (ALT/SGPT) 418H, Alkaline Phosphatase 2668H, Total Protein 6.8, Albumin 1.8L, Globulin 5.0, Albumin/Globulin Ratio 0.4L, Amylase Level 26, Lipase 62L 10/23/17 10:27: Vancomycin Level Trough 23.9H Height (Feet): 5 Height (Inches): 5.00 Weight (Pounds): 82 Dary Nixon M.D. Oct 23, 2017 22:54
[2017-10-24] VITALS: BP 128/55
[2017-10-24 03:58] LABS: BASOPHILS % (AUTO) 1.2 % (0.0-2.0); EOSINOPHILS % (AUTO) 1.3 % (0.0-3.0); HEMATOCRIT 27.2 % (37.0-47.0); LYMPHOCYTES % (AUTO) 17.6 % (20.0-45.0); MEAN CORPUSCULAR VOLUME 97 FL (80-99); MONOCYTES % (AUTO) 8.5 % (1.0-10.0); NEUTROPHILS % (AUTO) 71.5 % (45.0-75.0); PLATELET COUNT 161 K/UL (150-450); RED CELL DISTRIBUTION WIDTH 15.7 % (11.6-14.8); WHITE BLOOD COUNT 9.2 K/UL (4.8-10.8)
[2017-10-24 04:00] VITALS: BP 138/60
[2017-10-24 04:35] LABS: ALANINE AMINOTRANSFERASE 653 U/L (12-78); ALBUMIN 1.8 G/DL (3.4-5.0); ALBUMIN/GLOBULIN RATIO 0.4 (1.0-2.7); ALKALINE PHOSPHATASE 3498 U/L (46-116); ANION GAP 7 mmol/L (5-15); ASPARTATE AMINO TRANSFERASE 1071 U/L (15-37); BILIRUBIN,TOTAL 7.4 MG/DL (0.2-1.0); BLOOD UREA NITROGEN 28 mg/dL (7-18); CALCIUM 8.4 MG/DL (8.5-10.1); CARBON DIOXIDE 29 MMOL/L (21-32); CHLORIDE 103 MMOL/L (98-107); CREATININE 0.8 MG/DL (0.55-1.30); POTASSIUM 3.3 MMOL/L (3.5-5.1); SODIUM 139 MMOL/L (136-145)
[2017-10-24] MEDS: Piperacillin/Tazobactam 3.375 GM in D5W 110 ML IVPB SCH ×3 (05:06→21:53)
[2017-10-24] MEDS: NovoLOG Insulin Flexpen SUBQ SCH ×3 (05:08→18:12)
[2017-10-24 05:35] LABS: BILIRUBIN,DIRECT 6.2 MG/DL (0.0-0.3)
[2017-10-24 08:00] VITALS: BP 133/66
[2017-10-24] MEDS ORDERED: Vancomycin 500mg in D5W 275ml IVPB ONE (10:00)
[2017-10-24] MEDS: Ketotifen Fumarate 0.035% 5ml BOTH EYES SCH (10:00)
[2017-10-24] MEDS ORDERED: Vancomycin 500 MG in NS 110 ML IVPB SCH (10:00)
[2017-10-24] MEDS: Pantoprazole Inj IVP SCH (10:00)
[2017-10-24] MEDS ORDERED: Potassium Phosphate 30 MM in NS 275 ML IV SCH (10:00)
[2017-10-24] MEDS: dilTIAZem HCl 30mg tab NG SCH ×2 (10:12→18:10)
--- NOTE | 2017-10-24 10:48 | Nephrology Progress Note ---
Assessment/Plan Problem List: (1) ARDS (adult respiratory distress syndrome) (2) Electrolyte imbalance (3) Thrombocytopenia Assessment worsening leukocytosis (1) ARDS (adult respiratory distress syndrome) s/p Trach (2) Aspiration pneumonia (3) Protein-calorie malnutrition, severe (4) Diabetes mellitus (5) Anemia , aplastic by history (6) DM (7) UTI (8) Electrolyte imbalance (9) HTN (10) Depression (11) RA . Plan K Phos IV stable from renal stand - had trach and PEG water via NGT Adjust BP meds K and Phos supplement as needed Monitor renal parameters and urine output avoid nephrotoxics per orders discussed with RN Left ventricular ejection fraction estimated to be 55 %. Subjective ROS Limited/Unobtainable: Yes Objective Objective Last 24 Hour Vital Signs Date Time Temp Pulse Resp B/P (MAP) Pulse Ox O2 Delivery O2 Flow Rate FiO2 10/24/17 10:12 85 133/66 10/24/17 09:20 85 31 40 10/24/17 08:00 97.9 80 26 133/66 100 Mechanical Ventilator 40 97.9 10/24/17 08:00 83 10/24/17 06:35 80 31 40 10/24/17 05:30 84 23 40 10/24/17 04:00 40 10/24/17 04:00 97.7 77 22 138/60 100 Mechanical Ventilator 40 97.7 10/24/17 04:00 80 10/24/17 03:30 90 28 40 10/24/17 00:32 94 30 40 10/24/17 00:00 80 10/24/17 00:00 97.9 86 35 128/55 100 Mechanical Ventilator 40 97.9 10/24/17 00:00 40 10/23/17 23:30 80 25 40 10/23/17 21:14 71 32 40 10/23/17 20:00 40 10/23/17 20:00 71 10/23/17 20:00 98.0 80 26 120/62 100 Mechanical Ventilator 40 98.0 10/23/17 19:30 75 34 40 10/23/17 18:00 93 120/67 10/23/17 16:45 93 29 40 10/23/17 16:00 40 10/23/17 16:00 97.7 85 34 120/67 100 Mechanical Ventilator 40 97.7 10/23/17 16:00 73 10/23/17 15:04 74 18 40 10/23/17 13:07 70 20 40 10/23/17 12:00 97.5 76 30 115/58 100 Mechanical Ventilator 40 97.5 10/23/17 12:00 40 10/23/17 12:00 76 10/23/17 11:07 73 18 40 Intake and Output 10/23/17 10/24/17 19:00 07:00 Intake Total 610 ml 1090 ml Output Total 400 ml 200 ml Balance 210 ml 890 ml Free Water 100 ml 100 ml IV Total 110 ml 440 ml Tube Feeding 400 ml 550 ml Output Urine Total 400 ml 200 ml # Bowel Movements 2 1 Laboratory Tests 10/24/17 03:05: White Blood Count 9.2, Red Blood Count 2.80L, Hemoglobin 9.0L, Hematocrit 27.2L , Mean Corpuscular Volume 97, Mean Corpuscular Hemoglobin 32.1H, Mean Corpuscular Hemoglobin Concent 32.9, Red Cell Distribution Width 15.7H, Platelet Count 161, Mean Platelet Volume 9.2, Neutrophils (%) (Auto) 71.5, Lymphocytes (%) (Auto) 17.6L, Monocytes (%) (Auto) 8.5, Eosinophils (%) (Auto) 1.3, Basophils (%) (Auto) 1.2, Prothrombin Time 10.2, Prothromb Time International Ratio 1.0, Activated Partial Thromboplast Time 28, Sodium Level 139, Potassium Level 3.3L, Chloride Level 103, Carbon Dioxide Level 29, Anion Gap 7, Blood Urea Nitrogen 28H, Creatinine 0.8, Estimat Glomerular Filtration Rate , Glucose Level 135H, Calcium Level 8.4L, Phosphorus Level 2.0L, Magnesium Level 1.9, Total Bilirubin 7.4H, Direct Bilirubin 6.2H, Aspartate Amino Transf ( AST/SGOT) 1071H, Alanine Aminotransferase (ALT/SGPT) 653H, Alkaline Phosphatase 3498H, Total Protein 6.8, Albumin 1.8L, Globulin 5.0, Albumin/Globulin Ratio 0.4L Height (Feet): 5 Height (Inches): 5.00 Weight (Pounds): 83 General Appearance: no apparent distress Cardiovascular: tachycardia Respiratory/Chest: decreased breath sounds Abdomen: distended Objective no change YAEL HANSEN Oct 24, 2017 10:48
[2017-10-24] MEDS: D5 1/2NS 1,000 ML IV SCH (11:46)
--- NOTE | 2017-10-24 11:57 | Pulmonology Progress Note ---
Assessment/Plan Problems: (1) ARDS (adult respiratory distress syndrome) (2) Sepsis (3) Coagulopathy (4) Aspiration pneumonia (5) Cholangitis (6) Diabetes mellitus, type II (7) Protein-calorie malnutrition, severe (8) Parkinsons disease Respiratory: monitor respiratory rate, adjust FIO2, CXR Cardiac: continue to monitor HR/BP Renal: F/U I&O, keep IV fluid Infectious Disease: check cultures, continue antibiotics Gastrointestinal: continue feedings/current rate Endocrine: monitor blood sugar Hematologic: monitor H/H, transfuse if hgb<8.5 Neurologic: PRN Ativan, keep patient comfortable Affect: PRN ativan Prophylaxis: Protonix, Heparin Time Spent (Minutes): 40 Notes Reviewed: cardio, renal Discussed with: nurses, consultants, clinical case manager Subjective ROS Limited/Unobtainable: No Constitutional: Reports: no symptoms HEENT: Repors: no symptoms Respiratory: Reports: no symptoms Allergies: Coded Allergies: No Known Allergies (Verified , 11/18/08) Objective Last 24 Hour Vital Signs Date Time Temp Pulse Resp B/P (MAP) Pulse Ox O2 Delivery O2 Flow Rate FiO2 10/24/17 11:14 88 25 40 10/24/17 10:12 85 133/66 10/24/17 09:20 85 31 40 10/24/17 08:00 97.9 80 26 133/66 100 Mechanical Ventilator 40 97.9 10/24/17 08:00 83 10/24/17 06:35 80 31 40 10/24/17 05:30 84 23 40 10/24/17 04:00 40 10/24/17 04:00 97.7 77 22 138/60 100 Mechanical Ventilator 40 97.7 10/24/17 04:00 80 10/24/17 03:30 90 28 40 10/24/17 00:32 94 30 40 10/24/17 00:00 80 10/24/17 00:00 97.9 86 35 128/55 100 Mechanical Ventilator 40 97.9 10/24/17 00:00 40 10/23/17 23:30 80 25 40 10/23/17 21:14 71 32 40 10/23/17 20:00 40 10/23/17 20:00 71 10/23/17 20:00 98.0 80 26 120/62 100 Mechanical Ventilator 40 98.0 10/23/17 19:30 75 34 40 10/23/17 18:00 93 120/67 10/23/17 16:45 93 29 40 10/23/17 16:00 40 10/23/17 16:00 97.7 85 34 120/67 100 Mechanical Ventilator 40 97.7 10/23/17 16:00 73 10/23/17 15:04 74 18 40 10/23/17 13:07 70 20 40 10/23/17 12:00 97.5 76 30 115/58 100 Mechanical Ventilator 40 97.5 10/23/17 12:00 40 10/23/17 12:00 76 Intake and Output 10/23/17 10/24/17 19:00 07:00 Intake Total 610 ml 1090 ml Output Total 400 ml 200 ml Balance 210 ml 890 ml Free Water 100 ml 100 ml IV Total 110 ml 440 ml Tube Feeding 400 ml 550 ml Output Urine Total 400 ml 200 ml # Bowel Movements 2 1 General Appearance: cachetic HEENT: normocephalic, atraumatic Respiratory/Chest: chest wall non-tender, lungs clear Breasts: no masses Cardiovascular: normal rate, regularly irregular Abdomen: normal bowel sounds, soft, non tender Extremities: no cyanosis Skin: no rash Laboratory Tests 10/24/17 03:05: White Blood Count 9.2, Red Blood Count 2.80L, Hemoglobin 9.0L, Hematocrit 27.2L , Mean Corpuscular Volume 97, Mean Corpuscular Hemoglobin 32.1H, Mean Corpuscular Hemoglobin Concent 32.9, Red Cell Distribution Width 15.7H, Platelet Count 161, Mean Platelet Volume 9.2, Neutrophils (%) (Auto) 71.5, Lymphocytes (%) (Auto) 17.6L, Monocytes (%) (Auto) 8.5, Eosinophils (%) (Auto) 1.3, Basophils (%) (Auto) 1.2, Prothrombin Time 10.2, Prothromb Time International Ratio 1.0, Activated Partial Thromboplast Time 28, Sodium Level 139, Potassium Level 3.3L, Chloride Level 103, Carbon Dioxide Level 29, Anion Gap 7, Blood Urea Nitrogen 28H, Creatinine 0.8, Estimat Glomerular Filtration Rate , Glucose Level 135H, Calcium Level 8.4L, Phosphorus Level 2.0L, Magnesium Level 1.9, Total Bilirubin 7.4H, Direct Bilirubin 6.2H, Aspartate Amino Transf ( AST/SGOT) 1071H, Alanine Aminotransferase (ALT/SGPT) 653H, Alkaline Phosphatase 3498H, Total Protein 6.8, Albumin 1.8L, Globulin 5.0, Albumin/Globulin Ratio 0.4L Current Medications Medications (Trade) Dose Ordered Sig/Hermes Route PRN Reason Start Time Stop Time Status Last Admin Dose Admin Acetaminophen (Tylenol) 650 mg Q6H PRN NG Fever/Headache/Mild Pain 10/14/17 17:00 11/10/17 16:59 10/20/17 17:30 Clotrimazole (Lotrimin) 1 applic EVERY 12 HOURS TOPIC 10/14/17 21:00 11/09/17 22:59 10/24/17 10:01 Dextrose (Dextrose 50%) 25 ml STAT PRN IV Hypoglycemia 10/18/17 08:30 11/17/17 08:29 Dextrose (Dextrose 50%) 50 ml STAT PRN IV Hypoglycemia 10/18/17 08:30 11/17/17 08:29 Dextrose/Sodium Chloride 1,000 ml @ 75 mls/hr [id number] IV 10/24/17 11:30 11/23/17 11:29 10/24/17 11:46 Diltiazem HCl (Cardizem) 30 mg BID NG 10/14/17 18:00 11/10/17 08:59 10/24/17 10:12 Insulin Aspart (NovoLOG) Q6HR SUBQ 10/18/17 12:00 11/17/17 11:59 10/24/17 05:08 Ketotifen Fumarate (Zatidor) 1 drop DAILY BOTH EYES 10/15/17 09:00 10/25/17 08:59 10/24/17 10:00 Morphine Sulfate (Morphine Sulfate) 1 mg Q4HR PRN IVP Moderate Pain (Pain Scale 4-6) 10/18/17 18:15 10/25/17 11:44 Morphine Sulfate (Morphine Sulfate) 2 mg Q4H PRN IVP Severe Pain (Pain Scale 7-10) 10/18/17 18:30 10/25/17 18:29 10/20/17 09:07 Pantoprazole (Protonix) 40 mg DAILY IVP 10/15/17 09:00 11/01/17 08:59 10/24/17 10:00 Piperacillin Sod/ Tazobactam Sod 3.375 gm/Dextrose 110 ml @ 220 mls/hr EVERY 8 HOURS IVPB 10/21/17 14:00 10/28/17 13:59 10/24/17 05:06 Potassium Phosphate 30 mm/ Sodium Chloride 285 ml @ 47.5 mls/hr ONCE IV 10/24/17 10:00 10/24/17 12:00 10/24/17 10:12 Vancomycin HCl (Vanco rx to dose) 1 ea DAILY PRN MISC Per rx protocol 10/20/17 17:15 11/19/17 17:14 Vancomycin HCl 500 mg/Sodium Chloride 110 ml @ 110 mls/hr Q24H IVPB 10/24/17 10:00 10/29/17 09:59 10/24/17 11:45 Tayler Liu MD Oct 24, 2017 11:56
[2017-10-24 12:00] VITALS: BP 118/58
[2017-10-24] MEDS ORDERED: NS 275ml ONE (12:10)
[2017-10-24] MEDS ORDERED: Tubing IV Secondary IV ONE (12:10)
--- NOTE | 2017-10-24 13:13 | General Progress Note ---
Assessment/Plan Problem List: (1) Arthritis, rheumatoid ICD Codes: M06.9 - Rheumatoid arthritis, unspecified SNOMED: 18656341 (2) Aspiration pneumonia ICD Codes: J69.0 - Pneumonitis due to inhalation of food and vomit SNOMED: 548679091 (3) Diabetes mellitus ICD Codes: E11.9 - Type 2 diabetes mellitus without complications SNOMED: 00769389 (4) ARDS (adult respiratory distress syndrome) ICD Codes: J80 - Acute respiratory distress syndrome SNOMED: 40109192 (5) Transaminitis ICD Codes: R74.0 - Nonspecific elevation of levels of transaminase and lactic acid dehydrogenase [LDH] SNOMED: 181083697, 890945193 (6) Dyspnea ICD Codes: R06.00 - Dyspnea, unspecified SNOMED: 806260790 (7) Parkinsons disease ICD Codes: G20 - Parkinson's disease SNOMED: 59076352 (8) Sepsis ICD Codes: A41.9 - Sepsis, unspecified organism SNOMED: 30127513 (9) GERD (gastroesophageal reflux disease) ICD Codes: K21.9 - Gastro-esophageal reflux disease without esophagitis SNOMED: 972437132 (10) Aplastic anemia ICD Codes: D61.9 - Aplastic anemia, unspecified SNOMED: 543279391 (11) Pneumonia ICD Codes: J18.9 - Pneumonia, unspecified organism SNOMED: 945118522 (12) HTN (hypertension) ICD Codes: I10 - Essential (primary) hypertension SNOMED: 21337477 Assessment/Plan Encephalopathy, agitation, psychotic disorder. -cont current meds -ativan prn Subjective Date patient seen: Oct 24, 2017 Allergies: Coded Allergies: No Known Allergies (Verified , 11/18/08) Subjective the pts mental condition was unchanged Objective Last 24 Hour Vital Signs Date Time Temp Pulse Resp B/P (MAP) Pulse Ox O2 Delivery O2 Flow Rate FiO2 10/24/17 11:14 88 25 40 10/24/17 10:12 85 133/66 10/24/17 09:20 85 31 40 10/24/17 08:00 97.9 80 26 133/66 100 Mechanical Ventilator 40 97.9 10/24/17 08:00 83 10/24/17 06:35 80 31 40 10/24/17 05:30 84 23 40 10/24/17 04:00 40 10/24/17 04:00 97.7 77 22 138/60 100 Mechanical Ventilator 40 97.7 10/24/17 04:00 80 10/24/17 03:30 90 28 40 10/24/17 00:32 94 30 40 10/24/17 00:00 80 10/24/17 00:00 97.9 86 35 128/55 100 Mechanical Ventilator 40 97.9 10/24/17 00:00 40 10/23/17 23:30 80 25 40 10/23/17 21:14 71 32 40 10/23/17 20:00 40 10/23/17 20:00 71 10/23/17 20:00 98.0 80 26 120/62 100 Mechanical Ventilator 40 98.0 10/23/17 19:30 75 34 40 10/23/17 18:00 93 120/67 10/23/17 16:45 93 29 40 10/23/17 16:00 40 10/23/17 16:00 97.7 85 34 120/67 100 Mechanical Ventilator 40 97.7 10/23/17 16:00 73 10/23/17 15:04 74 18 40 Intake and Output 10/23/17 10/24/17 19:00 07:00 Intake Total 610 ml 1090 ml Output Total 400 ml 200 ml Balance 210 ml 890 ml Free Water 100 ml 100 ml IV Total 110 ml 440 ml Tube Feeding 400 ml 550 ml Output Urine Total 400 ml 200 ml # Bowel Movements 2 1 Laboratory Tests 10/24/17 03:05: White Blood Count 9.2, Red Blood Count 2.80L, Hemoglobin 9.0L, Hematocrit 27.2L , Mean Corpuscular Volume 97, Mean Corpuscular Hemoglobin 32.1H, Mean Corpuscular Hemoglobin Concent 32.9, Red Cell Distribution Width 15.7H, Platelet Count 161, Mean Platelet Volume 9.2, Neutrophils (%) (Auto) 71.5, Lymphocytes (%) (Auto) 17.6L, Monocytes (%) (Auto) 8.5, Eosinophils (%) (Auto) 1.3, Basophils (%) (Auto) 1.2, Prothrombin Time 10.2, Prothromb Time International Ratio 1.0, Activated Partial Thromboplast Time 28, Sodium Level 139, Potassium Level 3.3L, Chloride Level 103, Carbon Dioxide Level 29, Anion Gap 7, Blood Urea Nitrogen 28H, Creatinine 0.8, Estimat Glomerular Filtration Rate , Glucose Level 135H, Calcium Level 8.4L, Phosphorus Level 2.0L, Magnesium Level 1.9, Total Bilirubin 7.4H, Direct Bilirubin 6.2H, Aspartate Amino Transf ( AST/SGOT) 1071H, Alanine Aminotransferase (ALT/SGPT) 653H, Alkaline Phosphatase 3498H, Total Protein 6.8, Albumin 1.8L, Globulin 5.0, Albumin/Globulin Ratio 0.4L Height (Feet): 5 Height (Inches): 5.00 Weight (Pounds): 83 Dary Nixon M.D. Oct 24, 2017 13:13
--- NOTE | 2017-10-24 14:20 | Infectious Diseases Prog Note ---
Assessment/Plan Assessment/Plan The patient is a 76-year-old female w 10/20 BCx : 07/16 CoNS ( m/l Contaminant, no Ctr line ) Fever , SP Leukocytosis, SP Cholangitis, Abnormal liver function tests, ALP>>> AST - worsening -SP ERCP 10/22 choledocholithiasis -s/p ERCP 10/08: Intraoperative images demonstrate faint opacification of the common bile duct, and placement of a new plastic endobiliary stent. What may be a previous malpositioned biliary stent is seen to the left of the endoscope -s/p ERCP with stent placement 10/01 -EUS 09/30: 1. Dilated common bile duct with lots of sludge in the distal common bile duct, most probably explanation for abnormal liver function tests. Large ascites Hep panel : neg Community-acquired vs healthcare-associated pneumonia, s/p RX 10/13 SP Fiberoptic bronchoscopy, bronchoalveolar lavage, upper airway endoscopy for percutaneous tracheostomy, bronchoscopy through tracheostomy BAL : Laila an Nl devon , AFB : Neg Viral Cx : NegTD -CT chest 10/07: Extensive diffuse bilateral pulmonary parenchymal disease, slightly worse than on prior exam of 09/23/2017. Main differential considerations include pneumonia, ARDS, pulmonary edema, among multiple other possibilities. Bilateral moderate to large pleural effusions, slightly increased in size from 09/23/2017. Nasogastric and endotracheal tubes in good position. Evidence of generalized anasarca, with diffuse subcutaneous soft tissue edema. 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 Depression. Anemia. Rheumatoid arthritis. History of gastritis. PLAN: pt on Zosyn d # 5/ 7 ( Empirically ) 10/24 IV Vanco d# 5 - 10/11 SP Ertapenem #7/7 10/09 SP MIcafungin #10 10/02 SP Amikacin #10 09/30 SP Flagyl #8 09/25 sp Fluconazole #3 (held due to rise ALP) 09/23 SP Meropenem #5, PO Vanco #2 09/21 SP tamiflu #10 -f/u AFB cultures ( BAL) : P Monitor CBC.; Monitor BMP.; Trend LFTs Monitor chest x-ray -GI, heme onc f/u - Monitor Culture ( Bl, Sp ) Subjective Allergies: Coded Allergies: No Known Allergies (Verified , 11/18/08) Subjective Afebrile no acute event Objective Vital Signs Last 24 Hour Vital Signs Date Time Temp Pulse Resp B/P (MAP) Pulse Ox O2 Delivery O2 Flow Rate FiO2 10/24/17 12:30 80 26 40 10/24/17 12:00 40 10/24/17 12:00 97.9 74 27 118/58 100 Mechanical Ventilator 40 97.9 10/24/17 11:14 88 25 40 10/24/17 10:12 85 133/66 10/24/17 09:20 85 31 40 10/24/17 08:00 97.9 80 26 133/66 100 Mechanical Ventilator 40 97.9 10/24/17 08:00 83 10/24/17 08:00 40 10/24/17 06:35 80 31 40 10/24/17 05:30 84 23 40 10/24/17 04:00 40 10/24/17 04:00 97.7 77 22 138/60 100 Mechanical Ventilator 40 97.7 10/24/17 04:00 80 10/24/17 03:30 90 28 40 10/24/17 00:32 94 30 40 10/24/17 00:00 80 10/24/17 00:00 97.9 86 35 128/55 100 Mechanical Ventilator 40 97.9 10/24/17 00:00 40 10/23/17 23:30 80 25 40 10/23/17 21:14 71 32 40 10/23/17 20:00 40 10/23/17 20:00 71 10/23/17 20:00 98.0 80 26 120/62 100 Mechanical Ventilator 40 98.0 10/23/17 19:30 75 34 40 10/23/17 18:00 93 120/67 10/23/17 16:45 93 29 40 10/23/17 16:00 40 10/23/17 16:00 97.7 85 34 120/67 100 Mechanical Ventilator 40 97.7 10/23/17 16:00 73 10/23/17 15:04 74 18 40 Height (Feet): 5 Height (Inches): 5.00 Weight (Pounds): 83 HEENT: atraumatic Respiratory/Chest: no respiratory distress Cardiovascular: regular rhythm Abdomen: no organomegaly Laboratory Tests Test 10/24/17 03:05 White Blood Count 9.2 K/UL (4.8-10.8) Red Blood Count 2.80 M/UL (4.20-5.40) L Hemoglobin 9.0 G/DL (12.0-16.0) L Hematocrit 27.2 % (37.0-47.0) L Mean Corpuscular Volume 97 FL (80-99) Mean Corpuscular Hemoglobin 32.1 PG (27.0-31.0) H Mean Corpuscular Hemoglobin Concent 32.9 G/DL (32.0-36.0) Red Cell Distribution Width 15.7 % (11.6-14.8) H Platelet Count 161 K/UL (150-450) Mean Platelet Volume 9.2 FL (6.5-10.1) Neutrophils (%) (Auto) 71.5 % (45.0-75.0) Lymphocytes (%) (Auto) 17.6 % (20.0-45.0) L Monocytes (%) (Auto) 8.5 % (1.0-10.0) Eosinophils (%) (Auto) 1.3 % (0.0-3.0) Basophils (%) (Auto) 1.2 % (0.0-2.0) Prothrombin Time 10.2 SEC (9.30-11.50) Prothromb Time International Ratio 1.0 (0.9-1.1) Activated Partial Thromboplast Time 28 SEC (23-33) Sodium Level 139 MMOL/L (136-145) Potassium Level 3.3 MMOL/L (3.5-5.1) L Chloride Level 103 MMOL/L (98-107) Carbon Dioxide Level 29 MMOL/L (21-32) Anion Gap 7 mmol/L (5-15) Blood Urea Nitrogen 28 mg/dL (7-18) H Creatinine 0.8 MG/DL (0.55-1.30) Estimat Glomerular Filtration Rate mL/min (>60) Glucose Level 135 MG/DL (74-106) H Calcium Level 8.4 MG/DL (8.5-10.1) L Phosphorus Level 2.0 MG/DL (2.5-4.9) L Magnesium Level 1.9 MG/DL (1.8-2.4) Total Bilirubin 7.4 MG/DL (0.2-1.0) H Direct Bilirubin 6.2 MG/DL (0.0-0.3) H Aspartate Amino Transf (AST/SGOT) 1071 U/L (15-37) H Alanine Aminotransferase (ALT/SGPT) 653 U/L (12-78) H Alkaline Phosphatase 3498 U/L (46-116) H Total Protein 6.8 G/DL (6.4-8.2) Albumin 1.8 G/DL (3.4-5.0) L Globulin 5.0 g/dL Albumin/Globulin Ratio 0.4 (1.0-2.7) L Current Medications Medications (Trade) Dose Ordered Sig/Hermes Route PRN Reason Start Time Stop Time Status Last Admin Dose Admin Acetaminophen (Tylenol) 650 mg Q6H PRN NG Fever/Headache/Mild Pain 10/14/17 17:00 11/10/17 16:59 10/20/17 17:30 Clotrimazole (Lotrimin) 1 applic EVERY 12 HOURS TOPIC 10/14/17 21:00 11/09/17 22:59 10/24/17 10:01 Dextrose (Dextrose 50%) 25 ml STAT PRN IV Hypoglycemia 10/18/17 08:30 11/17/17 08:29 Dextrose (Dextrose 50%) 50 ml STAT PRN IV Hypoglycemia 10/18/17 08:30 11/17/17 08:29 Dextrose/Sodium Chloride 1,000 ml @ 75 mls/hr [id number] IV 10/24/17 11:30 11/23/17 11:29 10/24/17 11:46 Diltiazem HCl (Cardizem) 30 mg BID NG 10/14/17 18:00 11/10/17 08:59 10/24/17 10:12 Insulin Aspart (NovoLOG) Q6HR SUBQ 10/18/17 12:00 11/17/17 11:59 10/24/17 12:07 Ketotifen Fumarate (Zatidor) 1 drop DAILY BOTH EYES 10/15/17 09:00 10/25/17 08:59 10/24/17 10:00 Morphine Sulfate (Morphine Sulfate) 1 mg Q4HR PRN IVP Moderate Pain (Pain Scale 4-6) 10/18/17 18:15 10/25/17 11:44 Morphine Sulfate (Morphine Sulfate) 2 mg Q4H PRN IVP Severe Pain (Pain Scale 7-10) 10/18/17 18:30 10/25/17 18:29 10/20/17 09:07 Pantoprazole (Protonix) 40 mg DAILY IVP 10/15/17 09:00 11/01/17 08:59 10/24/17 10:00 Piperacillin Sod/ Tazobactam Sod 3.375 gm/Dextrose 110 ml @ 220 mls/hr EVERY 8 HOURS IVPB 10/21/17 14:00 10/28/17 13:59 10/24/17 05:06 Vancomycin HCl (Vanco rx to dose) 1 ea DAILY PRN MISC Per rx protocol 10/20/17 17:15 11/19/17 17:14 Vancomycin HCl 500 mg/Sodium Chloride 110 ml @ 110 mls/hr Q24H IVPB 10/24/17 10:00 10/29/17 09:59 10/24/17 11:45 Edis Hunter MD Oct 24, 2017 14:20
--- NOTE | 2017-10-24 15:39 | Pre-Procedure Note/Attestation ---
Pre-Procedure Note/Attestation Complete Prior to Procedure Planned Procedure: not applicable Procedure Narrative: US guided liver biopsy Indications for Procedure Pre-Operative Diagnosis: liver dz Attestation I attest that I discussed the nature of the procedure; its benefits; risks and complications; and alternatives (and the risks and benefits of such alternatives ), prior to the procedure, with the patient (or the patient's legal accounting representative). I attest that, if there was a reasonable possibility of needing a blood transfusion, the patient (or the patient's legal accounting representative) was given the [facility] standardized written summary, pursuant to the [place] Blood Safety Act ([place] Health and Safety Code # 1645, as amended). I attest that I re-evaluated the patient just prior to the surgery and that there has been no change in the patient's H&P, except as documented below: Discussed with Pt.s brother by phone at 1445 on 10/24 RK VELA M.D. Oct 24, 2017 15:39
--- NOTE | 2017-10-24 15:55 | Cardiac Electrophysiology PN ---
Assessment/Plan Assessment/Plan 1. Vent dependent Respiratory failure, due to underlying ARDS , pneumonia. Ruled out for myocardial infarction. S/P Tracheostomy 2. Left bundle-branch block. No evidence of more advanced heart block. 3. HTN and diastolic dysfunction. Echo EF 55% On Cardizem 30 BID 4. Hypernatremia and Azotemia. F/U per Dr. Mayer 5. Pneumonia and sepsis on IV antibiotics by Dr. Hunter. WBC down to 9K 6. Psychiatric disorder. 7. Anasarca. 3rd spacing. 8. Anemia with Hb 6.6 s/p PRBC. CT chest abdomen and pelvis without contrast no acute finding S/P EGD by Dr Walton. S/P PEG 10/16/17 9. Severe thrombocytopenia. S/P platelet transfusion 10. Abnormal LFT, Biliary obstruction, possible cholangitis. S/P ERCP. CBD sludge. S/P repeat ERCP and stent by Dr. Walton Bilirubin up to more than 5 and Alk Phos more than 2400s S/P Repeat ERCP 10/22/[address] abdomen today.Liver biopsy pending. 11. High INR likely due to hepatic failure. S/P FFP and Vit K. INR [address] Barahona Subjective Subjective No SVT or VT. On Vent via Trach.Had CT abdomen today Objective Last 24 Hour Vital Signs Date Time Temp Pulse Resp B/P (MAP) Pulse Ox O2 Delivery O2 Flow Rate FiO2 10/24/17 14:30 98 30 40 10/24/17 12:30 80 26 40 10/24/17 12:00 40 10/24/17 12:00 97.9 74 27 118/58 100 Mechanical Ventilator 40 97.9 10/24/17 12:00 79 10/24/17 11:14 88 25 40 10/24/17 10:12 85 133/66 10/24/17 09:20 85 31 40 10/24/17 08:00 97.9 80 26 133/66 100 Mechanical Ventilator 40 97.9 10/24/17 08:00 83 10/24/17 08:00 40 10/24/17 06:35 80 31 40 10/24/17 05:30 84 23 40 10/24/17 04:00 40 10/24/17 04:00 97.7 77 22 138/60 100 Mechanical Ventilator 40 97.7 10/24/17 04:00 80 10/24/17 03:30 90 28 40 10/24/17 00:32 94 30 40 10/24/17 00:00 80 10/24/17 00:00 97.9 86 35 128/55 100 Mechanical Ventilator 40 97.9 10/24/17 00:00 40 10/23/17 23:30 80 25 40 10/23/17 21:14 71 32 40 10/23/17 20:00 40 10/23/17 20:00 71 10/23/17 20:00 98.0 80 26 120/62 100 Mechanical Ventilator 40 98.0 10/23/17 19:30 75 34 40 10/23/17 18:00 93 120/67 10/23/17 16:45 93 29 40 10/23/17 16:00 40 10/23/17 16:00 97.7 85 34 120/67 100 Mechanical Ventilator 40 97.7 10/23/17 16:00 73 Intake and Output 10/23/17 10/24/17 19:00 07:00 Intake Total 610 ml 1140 ml Output Total 400 ml 200 ml Balance 210 ml 940 ml Free Water 100 ml 100 ml IV Total 110 ml 440 ml Tube Feeding 400 ml 600 ml Output Urine Total 400 ml 200 ml # Bowel Movements 2 1 Laboratory Tests Test 10/24/17 03:05 White Blood Count 9.2 K/UL (4.8-10.8) Red Blood Count 2.80 M/UL (4.20-5.40) L Hemoglobin 9.0 G/DL (12.0-16.0) L Hematocrit 27.2 % (37.0-47.0) L Mean Corpuscular Volume 97 FL (80-99) Mean Corpuscular Hemoglobin 32.1 PG (27.0-31.0) H Mean Corpuscular Hemoglobin Concent 32.9 G/DL (32.0-36.0) Red Cell Distribution Width 15.7 % (11.6-14.8) H Platelet Count 161 K/UL (150-450) Mean Platelet Volume 9.2 FL (6.5-10.1) Neutrophils (%) (Auto) 71.5 % (45.0-75.0) Lymphocytes (%) (Auto) 17.6 % (20.0-45.0) L Monocytes (%) (Auto) 8.5 % (1.0-10.0) Eosinophils (%) (Auto) 1.3 % (0.0-3.0) Basophils (%) (Auto) 1.2 % (0.0-2.0) Prothrombin Time 10.2 SEC (9.30-11.50) Prothromb Time International Ratio 1.0 (0.9-1.1) Activated Partial Thromboplast Time 28 SEC (23-33) Sodium Level 139 MMOL/L (136-145) Potassium Level 3.3 MMOL/L (3.5-5.1) L Chloride Level 103 MMOL/L (98-107) Carbon Dioxide Level 29 MMOL/L (21-32) Anion Gap 7 mmol/L (5-15) Blood Urea Nitrogen 28 mg/dL (7-18) H Creatinine 0.8 MG/DL (0.55-1.30) Estimat Glomerular Filtration Rate mL/min (>60) Glucose Level 135 MG/DL (74-106) H Calcium Level 8.4 MG/DL (8.5-10.1) L Phosphorus Level 2.0 MG/DL (2.5-4.9) L Magnesium Level 1.9 MG/DL (1.8-2.4) Total Bilirubin 7.4 MG/DL (0.2-1.0) H Direct Bilirubin 6.2 MG/DL (0.0-0.3) H Aspartate Amino Transf (AST/SGOT) 1071 U/L (15-37) H Alanine Aminotransferase (ALT/SGPT) 653 U/L (12-78) H Alkaline Phosphatase 3498 U/L (46-116) H Total Protein 6.8 G/DL (6.4-8.2) Albumin 1.8 G/DL (3.4-5.0) L Globulin 5.0 g/dL Albumin/Globulin Ratio 0.4 (1.0-2.7) L Objective HEAD AND NECK: Tracheostomy in place LUNGS: Coarse rhonchi bilaterally CARDIOVASCULAR: Tachy S1 and S2.No murmur ABDOMEN: Soft.PEG in place EXTREMITIES: No edema. Charlie Darnell MD Oct 24, 2017 15:55
[2017-10-24 16:00] VITALS: BP 121/62
--- NOTE | 2017-10-24 16:19 | Brief Operative Note ---
Immediate Post Operative Note Operative Note Pre-op Diagnosis: liver dz Procedure: US guided liver bx Post-op Diagnosis: same Findings: consistent w/pre-op dx studies Surgeon: Senait VELA Anesthesia: local Specimen: yes - 2 18 G cires Complications: none Condition: stable Fluids: none Implant(s) used?: No RK VELA M.D. Oct 24, 2017 16:19
--- NOTE | 2017-10-24 16:56 | Internal Med Progress Note ---
Subjective Date of Service: Oct 24, 2017 Physician Name Sina Bowens Attending Physician Jesus Barahona MD Current Medications Medications (Trade) Dose Ordered Sig/Hermes Route PRN Reason Start Time Stop Time Status Last Admin Dose Admin Acetaminophen (Tylenol) 650 mg Q6H PRN NG Fever/Headache/Mild Pain 10/14/17 17:00 11/10/17 16:59 10/20/17 17:30 Clotrimazole (Lotrimin) 1 applic EVERY 12 HOURS TOPIC 10/14/17 21:00 11/09/17 22:59 10/24/17 10:01 Dextrose (Dextrose 50%) 25 ml STAT PRN IV Hypoglycemia 10/18/17 08:30 11/17/17 08:29 Dextrose (Dextrose 50%) 50 ml STAT PRN IV Hypoglycemia 10/18/17 08:30 11/17/17 08:29 Dextrose/Sodium Chloride 1,000 ml @ 75 mls/hr [id number] IV 10/24/17 11:30 11/23/17 11:29 10/24/17 11:46 Diltiazem HCl (Cardizem) 30 mg BID NG 10/14/17 18:00 11/10/17 08:59 10/24/17 10:12 Insulin Aspart (NovoLOG) Q6HR SUBQ 10/18/17 12:00 11/17/17 11:59 10/24/17 12:07 Ketotifen Fumarate (Zatidor) 1 drop DAILY BOTH EYES 10/15/17 09:00 10/25/17 08:59 10/24/17 10:00 Morphine Sulfate (Morphine Sulfate) 1 mg Q4HR PRN IVP Moderate Pain (Pain Scale 4-6) 10/18/17 18:15 10/25/17 11:44 Morphine Sulfate (Morphine Sulfate) 2 mg Q4H PRN IVP Severe Pain (Pain Scale 7-10) 10/18/17 18:30 10/25/17 18:29 10/20/17 09:07 Pantoprazole (Protonix) 40 mg DAILY IVP 10/15/17 09:00 11/01/17 08:59 10/24/17 10:00 Piperacillin Sod/ Tazobactam Sod 3.375 gm/Dextrose 110 ml @ 27.5 mls/hr EVERY 8 HOURS IVPB 10/24/17 14:30 10/31/17 14:29 10/24/17 15:03 Allergies: Coded Allergies: No Known Allergies (Verified , 11/18/08) ROS Limited/Unobtainable: Yes Subjective 76 YO F admitted with Shortness of breath, now respiratory failure. Intubated and sedated. Cover for Internal Med-Dr. Barahona. RAJINDER . S/P ERCP 10/08/17. S/P Tracheostomy and bronchoscopy 10/13/17. Await transfer to [facility] vs [place] Objective Last Vital Signs Date Time Temp Pulse Resp B/P (MAP) Pulse Ox O2 Delivery O2 Flow Rate FiO2 10/24/17 16:07 40 10/24/17 16:00 118 10/24/17 14:30 30 10/24/17 12:00 97.9 118/58 100 Mechanical Ventilator 97.9 Laboratory Tests Test 10/24/17 03:05 White Blood Count 9.2 K/UL (4.8-10.8) Red Blood Count 2.80 M/UL (4.20-5.40) L Hemoglobin 9.0 G/DL (12.0-16.0) L Hematocrit 27.2 % (37.0-47.0) L Mean Corpuscular Volume 97 FL (80-99) Mean Corpuscular Hemoglobin 32.1 PG (27.0-31.0) H Mean Corpuscular Hemoglobin Concent 32.9 G/DL (32.0-36.0) Red Cell Distribution Width 15.7 % (11.6-14.8) H Platelet Count 161 K/UL (150-450) Mean Platelet Volume 9.2 FL (6.5-10.1) Neutrophils (%) (Auto) 71.5 % (45.0-75.0) Lymphocytes (%) (Auto) 17.6 % (20.0-45.0) L Monocytes (%) (Auto) 8.5 % (1.0-10.0) Eosinophils (%) (Auto) 1.3 % (0.0-3.0) Basophils (%) (Auto) 1.2 % (0.0-2.0) Prothrombin Time 10.2 SEC (9.30-11.50) Prothromb Time International Ratio 1.0 (0.9-1.1) Activated Partial Thromboplast Time 28 SEC (23-33) Sodium Level 139 MMOL/L (136-145) Potassium Level 3.3 MMOL/L (3.5-5.1) L Chloride Level 103 MMOL/L (98-107) Carbon Dioxide Level 29 MMOL/L (21-32) Anion Gap 7 mmol/L (5-15) Blood Urea Nitrogen 28 mg/dL (7-18) H Creatinine 0.8 MG/DL (0.55-1.30) Estimat Glomerular Filtration Rate mL/min (>60) Glucose Level 135 MG/DL (74-106) H Calcium Level 8.4 MG/DL (8.5-10.1) L Phosphorus Level 2.0 MG/DL (2.5-4.9) L Magnesium Level 1.9 MG/DL (1.8-2.4) Total Bilirubin 7.4 MG/DL (0.2-1.0) H Direct Bilirubin 6.2 MG/DL (0.0-0.3) H Aspartate Amino Transf (AST/SGOT) 1071 U/L (15-37) H Alanine Aminotransferase (ALT/SGPT) 653 U/L (12-78) H Alkaline Phosphatase 3498 U/L (46-116) H Total Protein 6.8 G/DL (6.4-8.2) Albumin 1.8 G/DL (3.4-5.0) L Globulin 5.0 g/dL Albumin/Globulin Ratio 0.4 (1.0-2.7) L Intake and Output 10/23/17 10/24/17 19:00 07:00 Intake Total 610 ml 1140 ml Output Total 400 ml 200 ml Balance 210 ml 940 ml Free Water 100 ml 100 ml IV Total 110 ml 440 ml Tube Feeding 400 ml 600 ml Output Urine Total 400 ml 200 ml # Bowel Movements 2 1 Objective General Appearance: lethargic, thin EENT: normal ENT inspection Neck: Trach; non-tender, normal alignment, supple Cardiovascular: normal peripheral pulses, normal rate, regular rhythm, no gallop/murmur, no JVD Respiratory/Chest: Mechanical vent; trach; ; respiratory distress, crackles/ rales, rhonchi - bilaterally, expiratory wheezing Abdomen: normal bowel sounds, non tender, soft, no organomegaly, no mass Skin: normal pigmentation, warm/dry Assessment/Plan Problem List: (1) HTN (hypertension) Assessment & Plan: Currently hypotensive. (2) Arthritis, rheumatoid (3) Parkinsons disease (4) Aplastic anemia (5) GERD (gastroesophageal reflux disease) (6) Respiratory failure Assessment & Plan: S/P Tracheostomy and broncholsopy 10/13/17. Cont vent per pulmonary (7) Pneumonia (8) Dyspnea (9) Sepsis Assessment & Plan: Blood culture neg. Continue Amikacin, micafungin and flagyl per ID (10) ARDS (adult respiratory distress syndrome) Assessment & Plan: See pulmonary note (11) UTI (urinary tract infection) Assessment & Plan: E.Coli. Continue abx per ID (12) Anemia Assessment & Plan: S/P Transfusion 4 units PRBC (13) Diabetes mellitus, type II Assessment & Plan: Continue novolog sliding scale (14) Leukocytosis Assessment & Plan: Worsening. See ID note. Start amikacin and fluconazole (15) Thrombocytopenia (16) Gallbladder sludge Assessment & Plan: s/P ERCP 10/01, 10/07/17 and 10/08/17 (17) Coagulopathy Assessment & Plan: S/P FFP and Vit K Assessment/Plan Discharge planning: [place] vs [place] subacute fac SINA BOWENS Oct 24, 2017 16:56
--- NOTE | 2017-10-24 16:57 | Diagnostic Imaging Report ---
Clinical Indication: Abnormal liver function Technique: No enteric contrast utilized as it was not necessary for this exam IV administration nonionic contrast. Venous phase spiral acquisition obtained through the abdomen and pelvis. Multiplanar reconstructions were generated. Total dose length product 489.27 mGycm. CTDIvol(s) 9.98 mGy. Dose reduction achieved using automated exposure control Comparison: Noncontrast study dated 10/07/2017 Findings: The liver demonstrates pneumobilia. There is an endobiliary stent again demonstrated. There are a few scattered small subcentimeter low-attenuation lesions which are too small to characterize. No liver mass otherwise. As previously, the gallbladder wall is thickened and edematous. A single gas bubble is seen within the gallbladder lumen These pancreas is atrophic. The spleen again demonstrates a subcapsular 4.7 cm length area of fluid attenuation laterally, also evident previously. The adrenals are unremarkable. The kidneys demonstrate bilateral subcentimeter low-attenuation lesions which are too small to characterize. No pelvic mass or adenopathy. The bladder is nearly empty, contains Davidson catheter. Again demonstrated is anasarca. However, the edema of the subcutaneous fat is much less severe than demonstrated previously. There is again demonstrated ascites fluid, overall probably slightly decreased from the prior exam. Large left pleural effusion persists, unchanged. Small to moderate right pleural effusion is decreased from the prior exam. Extensive pulmonary parenchymal opacity is again demonstrated at the visualized lung bases, although this may be minimally improved since the previous study. The previously demonstrated nasogastric tube has been removed. There is now a gastrostomy. Small bowel loops are diffusely upper limits of normal in caliber and gas filled. The appendix is not definitely demonstrated, but there are no findings to suggest acute appendicitis. The colon demonstrates a single diverticulum. No free intraperitoneal gas. The distal esophagus is unremarkable. Again demonstrated are chronic appearing but ununited fracture deformities of the pelvis. There is chronic bilateral hip dislocation. Impression: Subcentimeter low-attenuation hepatic lesions are too small to characterize, most likely benign simple cysts or bile hamartomas Otherwise, no definite hepatic abnormality seen to explain stated clinical history of abnormal liver function Endobiliary stent, also evident previously. Presence of pneumobilia indicates patency of the stent Gallbladder wall edema, also evident previously. Probably a manifestation of anasarca, as prior nuclear medicine hepatobiliary scan was negative. Also, the presence of a gas bubble in the gallbladder lumen indicates the cystic duct is probably patent Anasarca, with ascites, soft tissue edema, bilateral pleural effusions. While still extensive, this is overall markedly improved since previous study Bilateral basilar pulmonary parenchymal disease, minimally improved since previous study 4.7 cm fluid attenuation splenic lesion, also evident previously. Probably an infarct Gastrostomy, new since prior exam Colonic diverticulosis. No evidence of diverticulitis Chronic-appearing pelvic abnormalities, as described above and previously The CT scanner at [facility] is accredited by the [employer] and the scans are performed using protocols designed to limit radiation exposure to as low as reasonably achievable to attain images of sufficient resolution adequate for diagnostic evaluation.
--- NOTE | 2017-10-24 19:33 | General Progress Note ---
Assessment/Plan Assessment/Plan Assessment - Resp failure / ARDS / PNA - s/p trach - Abnormal LFT, persistent and rising Alk phos and GGT despite adequate biliary drainage: - ? infiltrative liver disorder (infectious, malignancy, granulomatous) - ? Drug related cholestasis , ?? which drug (reports with Diltiazem and Pipracilin rare) - ? CMV related (PCR (+)) - Jaundice - Anemia with OB (+) stools - Malnutrition - s/p PEG - AMS - improved - CMV PCR (+) Recommendations - follow labs / LFT daily - follow up liver biopsy results - out next week - repeat CMV PCR - treat if higher - check [place] and EBV titers - Restart TF - Minimize medication use, given LFT changes - transfuse PRN - Elevate HOB - Vent care Subjective Allergies: Coded Allergies: No Known Allergies (Verified , 11/18/08) Subjective Alk phos and Bili higher,despite biliary drainage d/w family multiple times they finally agreed to CT with IV contrast --> Unrevealing, stent in good place , pneumobilia c/w sphincterotomy d/w family again, they agreed with liver biopsy (r/o infiltrative d/o) --> U/s guided liver biopsy done Family not interested in comfort measures, joshua now that patient more awake and interactive Objective Last 24 Hour Vital Signs Date Time Temp Pulse Resp B/P (MAP) Pulse Ox O2 Delivery O2 Flow Rate FiO2 10/24/17 19:10 116 37 50 10/24/17 18:10 110 118/58 10/24/17 17:18 110 33 50 10/24/17 16:07 40 10/24/17 16:00 98.0 99 23 121/62 99 Mechanical Ventilator 40 98.0 10/24/17 16:00 118 10/24/17 14:30 98 30 40 10/24/17 12:30 80 26 40 10/24/17 12:00 40 10/24/17 12:00 97.9 74 27 118/58 100 Mechanical Ventilator 40 97.9 10/24/17 12:00 79 10/24/17 11:14 88 25 40 10/24/17 10:12 85 133/66 10/24/17 09:20 85 31 40 10/24/17 08:00 97.9 80 26 133/66 100 Mechanical Ventilator 40 97.9 10/24/17 08:00 83 10/24/17 08:00 40 10/24/17 06:35 80 31 40 10/24/17 05:30 84 23 40 10/24/17 04:00 40 10/24/17 04:00 97.7 77 22 138/60 100 Mechanical Ventilator 40 97.7 10/24/17 04:00 80 10/24/17 03:30 90 28 40 10/24/17 00:32 94 30 40 10/24/17 00:00 80 10/24/17 00:00 97.9 86 35 128/55 100 Mechanical Ventilator 40 97.9 10/24/17 00:00 40 10/23/17 23:30 80 25 40 10/23/17 21:14 71 32 40 10/23/17 20:00 40 10/23/17 20:00 71 10/23/17 20:00 98.0 80 26 120/62 100 Mechanical Ventilator 40 98.0 10/23/17 19:30 75 34 40 Intake and Output 10/23/17 10/24/17 19:00 07:00 Intake Total 610 ml 1140 ml Output Total 400 ml 200 ml Balance 210 ml 940 ml Free Water 100 ml 100 ml IV Total 110 ml 440 ml Tube Feeding 400 ml 600 ml Output Urine Total 400 ml 200 ml # Bowel Movements 2 1 Laboratory Tests 10/24/17 03:05: White Blood Count 9.2, Red Blood Count 2.80L, Hemoglobin 9.0L, Hematocrit 27.2L , Mean Corpuscular Volume 97, Mean Corpuscular Hemoglobin 32.1H, Mean Corpuscular Hemoglobin Concent 32.9, Red Cell Distribution Width 15.7H, Platelet Count 161, Mean Platelet Volume 9.2, Neutrophils (%) (Auto) 71.5, Lymphocytes (%) (Auto) 17.6L, Monocytes (%) (Auto) 8.5, Eosinophils (%) (Auto) 1.3, Basophils (%) (Auto) 1.2, Prothrombin Time 10.2, Prothromb Time International Ratio 1.0, Activated Partial Thromboplast Time 28, Sodium Level 139, Potassium Level 3.3L, Chloride Level 103, Carbon Dioxide Level 29, Anion Gap 7, Blood Urea Nitrogen 28H, Creatinine 0.8, Estimat Glomerular Filtration Rate , Glucose Level 135H, Calcium Level 8.4L, Phosphorus Level 2.0L, Magnesium Level 1.9, Total Bilirubin 7.4H, Direct Bilirubin 6.2H, Aspartate Amino Transf ( AST/SGOT) 1071H, Alanine Aminotransferase (ALT/SGPT) 653H, Alkaline Phosphatase 3498H, Total Protein 6.8, Albumin 1.8L, Globulin 5.0, Albumin/Globulin Ratio 0.4L 10/24/17 18:00: Maciej-Payne Virus Capsid Ag IgM Ab [Pending] Height (Feet): 5 Height (Inches): 5.00 Weight (Pounds): 83 Objective WDWN NCAT supple, (+) trach CTA RRR abd soft , (+) GT (+) LE edema opens eyes ARNULFO DURON Oct 24, 2017 19:33
[2017-10-24 20:00] VITALS: BP 118/64
--- NOTE | 2017-10-24 22:31 | General Progress Note ---
Assessment/Plan Assessment/Plan #. Sepsis. --> Leukocytosis likely related to underlying pneumonia infection. --> Wbc count elevated. Improved and downtrended. --> On Iv antibiotics. Monitor for improvement. #. Coagulopathy - potentially related to DIC early onset, review hapto, inr repeat, fibrinogen, DIC panel --> S/P FFP and Vit K --> DW pulm Dr. Parekh --> Likely related to infection versus other cause. On antibiotics. --> Prophylaxis. #. Anemia due to underlying chronic disease. Continue to closely monitor. --> Hemoglobin goal is above 7. --> S/P blood transfusion as hemoglobin levels fell low. --> Occult blood detected. Consider GI recs. --> Transfuse as necessary --> Blood transfusion not required unless symptomatic or hgb below goal. #. Pancytopenia --> WBC count and platelet counts are within normal levels now. --> Hemoglobin levels downtrended. Transfuse if continues to drop. --> S/P Platelet transfusion --> Monitor and trend cbc daily. #. Thrombocytopenia, severe and progressive, acute onset, likely secondary to underlying infection, aspiration, hit was negative --> Duplex of the lower extremities is negative, therefore less likely HIT and other causes are more likely such as underlying infection. --> Platelets goal >20k, transfuse if necessary. --> On antibiotics as per ID --> Platelet count has been downtrending, monitor closely. #. Respiratory failure, vent dependent --> acute respiratory distress syndrome. --> S/P tracheostomy. Cont vent per pulmonary. #. Community-acquired pneumonia versus hospital-acquired. --> The patient on broad-spectrum antibiotics. --> Improved. --> Urine culture growing E. coli. Continue to closely monitor. #. Transaminitis. She has been seen by GI Service. Continue to closely monitor. #. Low-grade fever. Closely observe. #. Encephalopathy. Parkinson's Disease. #. Diabetes mellitus II. #. Tube feeding. #. Hypertension. --> BP currently normal Subjective Date patient seen: Oct 23, 2017 Constitutional: Denies: no symptoms, chills, diaphoresis, fever, malaise, weakness, other HEENT: Denies: no symptoms, eye pain, blurred vision, tearing, double vision, ear pain, ear discharge, nose pain, nose congestion, throat pain, throat swelling, mouth pain, mouth swelling, other Cardiovascular: Denies: no symptoms, chest pain, edema, irregular heart rate, lightheadedness, palpitations, syncope, other Respiratory: Denies: no symptoms, cough, orthopnea, shortness of breath, SOB with excertion, SOB at rest, sputum, stridor, wheezing, other Gastrointestinal/Abdominal: Denies: no symptoms, abdomen distended, abdominal pain, black stools, tarry stools, blood in stool, constipated, diarrhea, difficulty swallowing, nausea, poor appetite, poor fluid intake, rectal bleeding , vomiting, other Genitourinary: Denies: no symptoms, burning, discharge, frequency, flank pain, hematuria, incontinence, pain, urgency, other 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: Denies: no symptoms, anxiety, depressed, emotional problems, headache, numbness, paresthesia, pre-existing deficit, seizure, tingling, tremors, weakness, other Hematologic/Lymphatic: Reports: anemia Allergies: Coded Allergies: No Known Allergies (Verified , 11/18/08) Subjective Intubated and sedated. Confused. No major events. Objective Last 24 Hour Vital Signs Date Time Temp Pulse Resp B/P (MAP) Pulse Ox O2 Delivery O2 Flow Rate FiO2 10/24/17 21:30 111 39 50 10/24/17 20:00 97.0 114 23 118/64 99 Mechanical Ventilator 40 97.0 10/24/17 20:00 115 10/24/17 20:00 50 10/24/17 19:10 116 37 50 10/24/17 18:10 110 118/58 10/24/17 17:18 110 33 50 10/24/17 16:07 40 10/24/17 16:00 98.0 99 23 121/62 99 Mechanical Ventilator 40 98.0 10/24/17 16:00 118 10/24/17 14:30 98 30 40 10/24/17 12:30 80 26 40 10/24/17 12:00 40 10/24/17 12:00 97.9 74 27 118/58 100 Mechanical Ventilator 40 97.9 10/24/17 12:00 79 10/24/17 11:14 88 25 40 10/24/17 10:12 85 133/66 4/13/18 09:20 85 31 40 10/24/17 08:00 97.9 80 26 133/66 100 Mechanical Ventilator 40 97.9 10/24/17 08:00 83 10/24/17 08:00 40 10/24/17 06:35 80 31 40 10/24/17 05:30 84 23 40 10/24/17 04:00 40 10/24/17 04:00 97.7 77 22 138/60 100 Mechanical Ventilator 40 97.7 10/24/17 04:00 80 10/24/17 03:30 90 28 40 10/24/17 00:32 94 30 40 10/24/17 00:00 80 10/24/17 00:00 97.9 86 35 128/55 100 Mechanical Ventilator 40 97.9 10/24/17 00:00 40 10/23/17 23:30 80 25 40 Intake and Output 10/23/17 10/24/17 19:00 07:00 Intake Total 610 ml 1140 ml Output Total 400 ml 200 ml Balance 210 ml 940 ml Free Water 100 ml 100 ml IV Total 110 ml 440 ml Tube Feeding 400 ml 600 ml Output Urine Total 400 ml 200 ml # Bowel Movements 2 1 Laboratory Tests 10/24/17 03:05: White Blood Count 9.2, Red Blood Count 2.80L, Hemoglobin 9.0L, Hematocrit 27.2L , Mean Corpuscular Volume 97, Mean Corpuscular Hemoglobin 32.1H, Mean Corpuscular Hemoglobin Concent 32.9, Red Cell Distribution Width 15.7H, Platelet Count 161, Mean Platelet Volume 9.2, Neutrophils (%) (Auto) 71.5, Lymphocytes (%) (Auto) 17.6L, Monocytes (%) (Auto) 8.5, Eosinophils (%) (Auto) 1.3, Basophils (%) (Auto) 1.2, Prothrombin Time 10.2, Prothromb Time International Ratio 1.0, Activated Partial Thromboplast Time 28, Sodium Level 139, Potassium Level 3.3L, Chloride Level 103, Carbon Dioxide Level 29, Anion Gap 7, Blood Urea Nitrogen 28H, Creatinine 0.8, Estimat Glomerular Filtration Rate , Glucose Level 135H, Calcium Level 8.4L, Phosphorus Level 2.0L, Magnesium Level 1.9, Total Bilirubin 7.4H, Direct Bilirubin 6.2H, Aspartate Amino Transf ( AST/SGOT) 1071H, Alanine Aminotransferase (ALT/SGPT) 653H, Alkaline Phosphatase 3498H, Total Protein 6.8, Albumin 1.8L, Globulin 5.0, Albumin/Globulin Ratio 0.4L 10/24/17 18:00: Maciej-Payne Virus Capsid Ag IgM Ab [Pending], Monoscreen [Pending] Height (Feet): 5 Height (Inches): 5.00 Weight (Pounds): 83 General Appearance: confused Respiratory/Chest: decreased breath sounds Abdomen: soft Johnny Sinha MD Oct 24, 2017 22:30
[2017-10-25] VITALS: BP 126/61
[2017-10-25] MEDS: NovoLOG Insulin Flexpen SUBQ SCH ×5 (00:11→23:22)
[2017-10-25] MEDS: D5 1/2NS 1,000 ML IV SCH ×2 (01:10→14:14)
[2017-10-25 04:00] VITALS: BP 129/55
[2017-10-25 05:11] LABS: HEMATOCRIT 18.8 % (37.0-47.0); MEAN CORPUSCULAR VOLUME 96 FL (80-99); PLATELET COUNT 141 K/UL (150-450); RED BLOOD COUNT 1.95 M/UL (4.20-5.40); RED CELL DISTRIBUTION WIDTH 15.5 % (11.6-14.8); WHITE BLOOD COUNT 12.9 K/UL (4.8-10.8)
[2017-10-25 05:17] LABS: HEMOGLOBIN 6.5 G/DL (12.0-16.0)
[2017-10-25 05:54] LABS: HEMATOCRIT 18.1 % (37.0-47.0); MEAN CORPUSCULAR VOLUME 96 FL (80-99); PLATELET COUNT 153 K/UL (150-450); RED BLOOD COUNT 1.88 M/UL (4.20-5.40); RED CELL DISTRIBUTION WIDTH 15.9 % (11.6-14.8); WHITE BLOOD COUNT 12.4 K/UL (4.8-10.8)
[2017-10-25 06:00] LABS: HEMOGLOBIN 6.3 G/DL (12.0-16.0)
[2017-10-25 06:02] LABS: ALANINE AMINOTRANSFERASE 495 U/L (12-78); ALBUMIN 1.6 G/DL (3.4-5.0); ALBUMIN/GLOBULIN RATIO 0.4 (1.0-2.7); ALKALINE PHOSPHATASE 2724 U/L (46-116); ANION GAP 7 mmol/L (5-15); ASPARTATE AMINO TRANSFERASE 510 U/L (15-37); BILIRUBIN,DIRECT 6.1 MG/DL (0.0-0.3); BILIRUBIN,TOTAL 6.8 MG/DL (0.2-1.0); BLOOD UREA NITROGEN 23 mg/dL (7-18); CALCIUM 7.5 MG/DL (8.5-10.1); CARBON DIOXIDE 27 MMOL/L (21-32); CHLORIDE 104 MMOL/L (98-107); CREATININE 0.7 MG/DL (0.55-1.30); PHOSPHORUS 3.3 MG/DL (2.5-4.9); POTASSIUM 3.3 MMOL/L (3.5-5.1); SODIUM 138 MMOL/L (136-145)
[2017-10-25] MEDS: Piperacillin/Tazobactam 3.375 GM in D5W 110 ML IVPB SCH (06:04)
[2017-10-25 08:00] VITALS: BP 134/66
[2017-10-25] MEDS: dilTIAZem HCl 30mg tab NG SCH ×2 (09:05→17:34)
--- NOTE | 2017-10-25 09:08 | Nephrology Progress Note ---
Assessment/Plan Problem List: (1) ARDS (adult respiratory distress syndrome) (2) Electrolyte imbalance (3) Thrombocytopenia Assessment worsening leukocytosis (1) ARDS (adult respiratory distress syndrome) s/p Trach (2) Aspiration pneumonia (3) Protein-calorie malnutrition, severe (4) Diabetes mellitus (5) Anemia , aplastic by history (6) DM (7) UTI (8) Electrolyte imbalance (9) HTN (10) Depression (11) RA . Plan K Phos IV consider transfusion stable from renal stand - had trach and PEG water via NGT Adjust BP meds K and Phos supplement as needed Monitor renal parameters and urine output avoid nephrotoxics per orders discussed with RN Left ventricular ejection fraction estimated to be 55 %. Subjective ROS Limited/Unobtainable: Yes Objective Objective Last 24 Hour Vital Signs Date Time Temp Pulse Resp B/P (MAP) Pulse Ox O2 Delivery O2 Flow Rate FiO2 10/25/17 08:37 115 44 50 10/25/17 08:00 97.6 105 40 134/66 95 Mechanical Ventilator 50 97.6 10/25/17 08:00 50 10/25/17 08:00 113 10/25/17 07:19 114 40 50 10/25/17 05:37 127 46 50 10/25/17 04:00 50 10/25/17 04:00 104 10/25/17 04:00 98.1 97 28 129/55 100 Mechanical Ventilator 40 98.1 10/25/17 03:33 98 41 50 10/25/17 01:23 99 42 50 10/25/17 00:00 50 10/25/17 00:00 109 10/25/17 00:00 99.0 100 28 126/61 99 Mechanical Ventilator 40 99.0 10/24/17 22:50 105 38 50 10/24/17 21:30 111 39 50 10/24/17 20:00 97.0 114 23 118/64 99 Mechanical Ventilator 40 97.0 10/24/17 20:00 115 10/24/17 20:00 50 10/24/17 19:10 116 37 50 10/24/17 18:10 110 118/58 10/24/17 17:18 110 33 50 10/24/17 16:07 40 10/24/17 16:00 98.0 99 23 121/62 99 Mechanical Ventilator 40 98.0 10/24/17 16:00 118 10/24/17 14:30 98 30 40 10/24/17 12:30 80 26 40 10/24/17 12:00 40 10/24/17 12:00 97.9 74 27 118/58 100 Mechanical Ventilator 40 97.9 10/24/17 12:00 79 10/24/17 11:14 88 25 40 10/24/17 10:12 85 133/66 10/24/17 09:20 85 31 40 Intake and Output 10/24/17 10/25/17 19:00 07:00 Intake Total 1510 ml 1560.0 ml Output Total 352 ml 501 ml Balance 1158 ml 1059.0 ml Free Water 200 ml IV Total 470 ml 960.0 ml Tube Feeding 600 ml 600 ml Other 240 ml Output Urine Total 350 ml 500 ml Stool Total 2 ml 1 ml # Bowel Movements 1 4 Laboratory Tests 10/24/17 18:00: Maciej-Payne Virus Capsid Ag IgM Ab [Pending], Monoscreen [Pending] 10/25/17 03:55: White Blood Count 12.9H, Red Blood Count 1.95L, Hemoglobin 6.5*L, Hematocrit 18.8#L, Mean Corpuscular Volume 96, Mean Corpuscular Hemoglobin 33.2H, Mean Corpuscular Hemoglobin Concent 34.6, Red Cell Distribution Width 15.5H, Platelet Count 141L, Mean Platelet Volume 7.8, Neutrophils (%) (Auto) , Lymphocytes (%) (Auto) , Monocytes (%) (Auto) , Eosinophils (%) (Auto) , Basophils (%) (Auto) , Differential Total Cells Counted 100, Neutrophils % ( Manual) 81H, Lymphocytes % (Manual) 10L, Monocytes % (Manual) 8, Eosinophils % ( Manual) 1, Basophils % (Manual) 0, Band Neutrophils 0, Platelet Estimate DecreasedL, Platelet Morphology Normal, Hypochromasia 1+, Anisocytosis 1+, Sodium Level 138, Potassium Level 3.3L, Chloride Level 104, Carbon Dioxide Level 27, Anion Gap 7, Blood Urea Nitrogen 23H, Creatinine 0.7, Estimat Glomerular Filtration Rate , Glucose Level 211H, Calcium Level 7.5L, Phosphorus Level 3.3, Magnesium Level 1.7L, Total Bilirubin 6.8H, Direct Bilirubin 6.1H, Aspartate Amino Transf (AST/SGOT) 510H, Alanine Aminotransferase (ALT/SGPT) 495H , Alkaline Phosphatase 2724H, Total Protein 5.9L, Albumin 1.6L, Globulin 4.3, Albumin/Globulin Ratio 0.4L, Cytomegalovirus DNA Qual (PCR) [Pending] 10/25/17 05:30: White Blood Count 12.4H, Red Blood Count 1.88L, Hemoglobin 6.3*L, Hematocrit 18.1L, Mean Corpuscular Volume 96, Mean Corpuscular Hemoglobin 33.3H, Mean Corpuscular Hemoglobin Concent 34.6, Red Cell Distribution Width 15.9H, Platelet Count 153, Mean Platelet Volume 8.4, Neutrophils (%) (Auto) , Lymphocytes (%) (Auto) , Monocytes (%) (Auto) , Eosinophils (%) (Auto) , Basophils (%) (Auto) , Differential Total Cells Counted 100, Neutrophils % ( Manual) 77H, Lymphocytes % (Manual) 14L, Monocytes % (Manual) 9, Eosinophils % ( Manual) 0, Basophils % (Manual) 0, Band Neutrophils 0, Platelet Estimate Adequate, Platelet Morphology Normal, Hypochromasia 1+, Anisocytosis 1+ Height (Feet): 5 Height (Inches): 5.00 Weight (Pounds): 84 General Appearance: no apparent distress, lethargic Cardiovascular: tachycardia Respiratory/Chest: decreased breath sounds Abdomen: distended Objective no change YAEL HANSEN Oct 25, 2017 09:08
--- NOTE | 2017-10-25 09:34 | Pulmonology Progress Note ---
Assessment/Plan Problems: (1) ARDS (adult respiratory distress syndrome) (2) Sepsis (3) Coagulopathy (4) Aspiration pneumonia (5) Cholangitis (6) Diabetes mellitus, type II (7) Protein-calorie malnutrition, severe (8) Parkinsons disease Respiratory: monitor respiratory rate, adjust FIO2 Cardiac: continue to monitor HR/BP Renal: F/U I&O Infectious Disease: check cultures Gastrointestinal: continue feedings/current rate, other - bilirubin decreasing Endocrine: monitor blood sugar, check HgA1C, continue sliding scale insulin Hematologic: transfuse if hgb<8.5 Neurologic: PRN Ativan, PRN Morphine, keep patient comfortable Prophylaxis: Protonix, Heparin Notes Reviewed: international manager Discussed with: nurses, consultants Subjective ROS Limited/Unobtainable: No Constitutional: Reports: no symptoms HEENT: Repors: no symptoms Respiratory: Reports: no symptoms Allergies: Coded Allergies: No Known Allergies (Verified , 11/18/08) Objective Last 24 Hour Vital Signs Date Time Temp Pulse Resp B/P (MAP) Pulse Ox O2 Delivery O2 Flow Rate FiO2 10/25/17 09:05 115 134/66 10/25/17 08:37 115 44 50 10/25/17 08:00 97.6 105 40 134/66 95 Mechanical Ventilator 50 97.6 10/25/17 08:00 50 10/25/17 08:00 113 10/25/17 07:19 114 40 50 10/25/17 05:37 127 46 50 10/25/17 04:00 50 10/25/17 04:00 104 10/25/17 04:00 98.1 97 28 129/55 100 Mechanical Ventilator 40 98.1 10/25/17 03:33 98 41 50 10/25/17 01:23 99 42 50 10/25/17 00:00 50 10/25/17 00:00 109 10/25/17 00:00 99.0 100 28 126/61 99 Mechanical Ventilator 40 99.0 10/24/17 22:50 105 38 50 10/24/17 21:30 111 39 50 10/24/17 20:00 97.0 114 23 118/64 99 Mechanical Ventilator 40 97.0 10/24/17 20:00 115 10/24/17 20:00 50 10/24/17 19:10 116 37 50 10/24/17 18:10 110 118/58 10/24/17 17:18 110 33 50 10/24/17 16:07 40 10/24/17 16:00 98.0 99 23 121/62 99 Mechanical Ventilator 40 98.0 10/24/17 16:00 118 10/24/17 14:30 98 30 40 10/24/17 12:30 80 26 40 10/24/17 12:00 40 10/24/17 12:00 97.9 74 27 118/58 100 Mechanical Ventilator 40 97.9 10/24/17 12:00 79 10/24/17 11:14 88 25 40 10/24/17 10:12 85 133/66 Intake and Output 10/24/17 10/25/17 19:00 07:00 Intake Total 1510 ml 1560.0 ml Output Total 352 ml 501 ml Balance 1158 ml 1059.0 ml Free Water 200 ml IV Total 470 ml 960.0 ml Tube Feeding 600 ml 600 ml Other 240 ml Output Urine Total 350 ml 500 ml Stool Total 2 ml 1 ml # Bowel Movements 1 4 General Appearance: cachetic HEENT: normocephalic, atraumatic, status post trach Respiratory/Chest: chest wall non-tender, lungs clear Breasts: no masses Cardiovascular: normal rate Abdomen: normal bowel sounds, no organomegaly Extremities: no cyanosis Skin: no rash Laboratory Tests 10/24/17 18:00: Maciej-Payne Virus Capsid Ag IgM Ab [Pending], Monoscreen [Pending] 10/25/17 03:55: White Blood Count 12.9H, Red Blood Count 1.95L, Hemoglobin 6.5*L, Hematocrit 18.8#L, Mean Corpuscular Volume 96, Mean Corpuscular Hemoglobin 33.2H, Mean Corpuscular Hemoglobin Concent 34.6, Red Cell Distribution Width 15.5H, Platelet Count 141L, Mean Platelet Volume 7.8, Neutrophils (%) (Auto) , Lymphocytes (%) (Auto) , Monocytes (%) (Auto) , Eosinophils (%) (Auto) , Basophils (%) (Auto) , Differential Total Cells Counted 100, Neutrophils % ( Manual) 81H, Lymphocytes % (Manual) 10L, Monocytes % (Manual) 8, Eosinophils % ( Manual) 1, Basophils % (Manual) 0, Band Neutrophils 0, Platelet Estimate DecreasedL, Platelet Morphology Normal, Hypochromasia 1+, Anisocytosis 1+, Sodium Level 138, Potassium Level 3.3L, Chloride Level 104, Carbon Dioxide Level 27, Anion Gap 7, Blood Urea Nitrogen 23H, Creatinine 0.7, Estimat Glomerular Filtration Rate , Glucose Level 211H, Calcium Level 7.5L, Phosphorus Level 3.3, Magnesium Level 1.7L, Total Bilirubin 6.8H, Direct Bilirubin 6.1H, Aspartate Amino Transf (AST/SGOT) 510H, Alanine Aminotransferase (ALT/SGPT) 495H , Alkaline Phosphatase 2724H, Total Protein 5.9L, Albumin 1.6L, Globulin 4.3, Albumin/Globulin Ratio 0.4L, Cytomegalovirus DNA Qual (PCR) [Pending] 10/25/17 05:30: White Blood Count 12.4H, Red Blood Count 1.88L, Hemoglobin 6.3*L, Hematocrit 18.1L, Mean Corpuscular Volume 96, Mean Corpuscular Hemoglobin 33.3H, Mean Corpuscular Hemoglobin Concent 34.6, Red Cell Distribution Width 15.9H, Platelet Count 153, Mean Platelet Volume 8.4, Neutrophils (%) (Auto) , Lymphocytes (%) (Auto) , Monocytes (%) (Auto) , Eosinophils (%) (Auto) , Basophils (%) (Auto) , Differential Total Cells Counted 100, Neutrophils % ( Manual) 77H, Lymphocytes % (Manual) 14L, Monocytes % (Manual) 9, Eosinophils % ( Manual) 0, Basophils % (Manual) 0, Band Neutrophils 0, Platelet Estimate Adequate, Platelet Morphology Normal, Hypochromasia 1+, Anisocytosis 1+ Current Medications Medications (Trade) Dose Ordered Sig/Hermes Route PRN Reason Start Time Stop Time Status Last Admin Dose Admin Clotrimazole (Lotrimin) 1 applic EVERY 12 HOURS TOPIC 10/14/17 21:00 11/09/17 22:59 10/25/17 09:06 Dextrose (Dextrose 50%) 25 ml STAT PRN IV Hypoglycemia 10/18/17 08:30 11/17/17 08:29 Dextrose (Dextrose 50%) 50 ml STAT PRN IV Hypoglycemia 10/18/17 08:30 11/17/17 08:29 Dextrose/Sodium Chloride 1,000 ml @ 75 mls/hr [id number] IV 10/24/17 11:30 11/23/17 11:29 10/25/17 01:10 Diltiazem HCl (Cardizem) 30 mg BID NG 10/14/17 18:00 11/10/17 08:59 10/25/17 09:05 Insulin Aspart (NovoLOG) Q6HR SUBQ 10/18/17 12:00 11/17/17 11:59 10/25/17 06:10 Magnesium Sulfate 100 ml @ 100 mls/hr Q1H IVPB 10/25/17 09:15 10/25/17 11:14 Piperacillin Sod/ Tazobactam Sod 3.375 gm/Dextrose 110 ml @ 27.5 mls/hr EVERY 8 HOURS IVPB 10/24/17 14:30 10/31/17 14:29 10/25/17 06:04 Potassium Chloride 30 meq/ Sodium Chloride 565 ml @ 188.333 mls/hr ONCE ONCE IVPB 10/25/17 10:30 10/25/17 13:29 Tayler Liu MD Oct 25, 2017 09:34
[2017-10-25] MEDS ORDERED: Potassium Chloride 30 MEQ in Sodium Chloride 500ML 550 ML IVPB ONE (10:30)
[2017-10-25 12:00] VITALS: BP 146/68
[2017-10-25] MEDS ORDERED: DiphenhydrAMINE 50mg/ml Inj IVP ONE (13:30)
--- NOTE | 2017-10-25 13:33 | General Progress Note ---
Assessment/Plan Problem List: (1) Transaminitis ICD Codes: R74.0 - Nonspecific elevation of levels of transaminase and lactic acid dehydrogenase [LDH] SNOMED: 833413083, 824852285 (2) Anemia ICD Codes: D64.9 - Anemia, unspecified SNOMED: 047861233 (3) Diabetes mellitus ICD Codes: E11.9 - Type 2 diabetes mellitus without complications SNOMED: 31370836 (4) Respiratory failure ICD Codes: J96.90 - Respiratory failure, unspecified, unspecified whether with hypoxia or hypercapnia SNOMED: 118173844 Qualifiers: Qualified Codes: J96.00 - Acute respiratory failure, unspecified whether with hypoxia or hypercapnia Assessment/Plan TF tolerated fu LFTS CT reviewed Cholestasis possibly due to abx, will dc Zosyn Subjective ROS Limited/Unobtainable: No Allergies: Coded Allergies: No Known Allergies (Verified , 11/18/08) Subjective intubated in the ICU Objective Last 24 Hour Vital Signs Date Time Temp Pulse Resp B/P (MAP) Pulse Ox O2 Delivery O2 Flow Rate FiO2 10/25/17 12:00 50 10/25/17 12:00 119 10/25/17 12:00 98.1 121 41 146/68 99 Mechanical Ventilator 50 98.1 10/25/17 11:10 121 42 50 10/25/17 09:05 115 134/66 10/25/17 08:37 115 44 50 10/25/17 08:00 97.6 105 40 134/66 95 Mechanical Ventilator 50 97.6 10/25/17 08:00 50 10/25/17 08:00 113 10/25/17 07:19 114 40 50 10/25/17 05:37 127 46 50 10/25/17 04:00 50 10/25/17 04:00 104 10/25/17 04:00 98.1 97 28 129/55 100 Mechanical Ventilator 40 98.1 10/25/17 03:33 98 41 50 10/25/17 01:23 99 42 50 10/25/17 00:00 50 10/25/17 00:00 109 10/25/17 00:00 99.0 100 28 126/61 99 Mechanical Ventilator 40 99.0 10/24/17 22:50 105 38 50 10/24/17 21:30 111 39 50 10/24/17 20:00 97.0 114 23 118/64 99 Mechanical Ventilator 40 97.0 10/24/17 20:00 115 10/24/17 20:00 50 10/24/17 19:10 116 37 50 10/24/17 18:10 110 118/58 10/24/17 17:18 110 33 50 10/24/17 16:07 40 10/24/17 16:00 98.0 99 23 121/62 99 Mechanical Ventilator 40 98.0 10/24/17 16:00 118 10/24/17 14:30 98 30 40 Intake and Output 10/24/17 10/25/17 19:00 07:00 Intake Total 1510 ml 1560.0 ml Output Total 352 ml 501 ml Balance 1158 ml 1059.0 ml Free Water 200 ml IV Total 470 ml 960.0 ml Tube Feeding 600 ml 600 ml Other 240 ml Output Urine Total 350 ml 500 ml Stool Total 2 ml 1 ml # Bowel Movements 1 4 Laboratory Tests 10/24/17 18:00: Maciej-Payne Virus Capsid Ag IgM Ab [Pending], Monoscreen [Pending] 10/25/17 03:55: White Blood Count 12.9H, Red Blood Count 1.95L, Hemoglobin 6.5*L, Hematocrit 18.8#L, Mean Corpuscular Volume 96, Mean Corpuscular Hemoglobin 33.2H, Mean Corpuscular Hemoglobin Concent 34.6, Red Cell Distribution Width 15.5H, Platelet Count 141L, Mean Platelet Volume 7.8, Neutrophils (%) (Auto) , Lymphocytes (%) (Auto) , Monocytes (%) (Auto) , Eosinophils (%) (Auto) , Basophils (%) (Auto) , Differential Total Cells Counted 100, Neutrophils % ( Manual) 81H, Lymphocytes % (Manual) 10L, Monocytes % (Manual) 8, Eosinophils % ( Manual) 1, Basophils % (Manual) 0, Band Neutrophils 0, Platelet Estimate DecreasedL, Platelet Morphology Normal, Hypochromasia 1+, Anisocytosis 1+, Sodium Level 138, Potassium Level 3.3L, Chloride Level 104, Carbon Dioxide Level 27, Anion Gap 7, Blood Urea Nitrogen 23H, Creatinine 0.7, Estimat Glomerular Filtration Rate , Glucose Level 211H, Calcium Level 7.5L, Phosphorus Level 3.3, Magnesium Level 1.7L, Total Bilirubin 6.8H, Direct Bilirubin 6.1H, Aspartate Amino Transf (AST/SGOT) 510H, Alanine Aminotransferase (ALT/SGPT) 495H , Alkaline Phosphatase 2724H, Total Protein 5.9L, Albumin 1.6L, Globulin 4.3, Albumin/Globulin Ratio 0.4L, Cytomegalovirus DNA Qual (PCR) [Pending] 10/25/17 05:30: White Blood Count 12.4H, Red Blood Count 1.88L, Hemoglobin 6.3*L, Hematocrit 18.1L, Mean Corpuscular Volume 96, Mean Corpuscular Hemoglobin 33.3H, Mean Corpuscular Hemoglobin Concent 34.6, Red Cell Distribution Width 15.9H, Platelet Count 153, Mean Platelet Volume 8.4, Neutrophils (%) (Auto) , Lymphocytes (%) (Auto) , Monocytes (%) (Auto) , Eosinophils (%) (Auto) , Basophils (%) (Auto) , Differential Total Cells Counted 100, Neutrophils % ( Manual) 77H, Lymphocytes % (Manual) 14L, Monocytes % (Manual) 9, Eosinophils % ( Manual) 0, Basophils % (Manual) 0, Band Neutrophils 0, Platelet Estimate Adequate, Platelet Morphology Normal, Hypochromasia 1+, Anisocytosis 1+ Height (Feet): 5 Height (Inches): 5.00 Weight (Pounds): 84 General Appearance: lethargic EENT: scleral icterus Neck: supple Cardiovascular: tachycardia Respiratory/Chest: decreased breath sounds Abdomen: non tender, soft, decreased bowel sounds Extremities: non-tender KIT GONZALEZ Oct 25, 2017 13:33
--- NOTE | 2017-10-25 13:36 | Cardiac Electrophysiology PN ---
Assessment/Plan Assessment/Plan 1. Vent dependent Respiratory failure due to underlying ARDS and pneumonia. Ruled out for myocardial infarction. S/P Tracheostomy 2. Left bundle-branch block. No evidence of more advanced heart block. 3. HTN and diastolic dysfunction. Echo EF 55% On Cardizem 30 BID 4. Hypernatremia and Azotemia. F/U per Dr. Mayer 5. Pneumonia and sepsis on IV antibiotics by Dr. Hunter. WBC down to 9K 6. Psychiatric disorder. 7. Anasarca. 3rd spacing. 8. Anemia with Hb 6.6 s/p PRBC. CT chest abdomen and pelvis without contrast no acute finding S/P EGD by Dr Walton. S/P PEG 10/16/17 Getting transfusion again today as Hb 6.3. Give Benadryl iv for sinus tach and anxiety 9. Severe thrombocytopenia. S/P platelet transfusion 10. Abnormal LFT, Biliary obstruction, possible cholangitis. S/P ERCP. CBD sludge. S/P repeat ERCP and stent by Dr. Walton Bilirubin 6.8 and Alk Phos more than 2400s S/P Repeat ERCP 10/22/[address] abdomen yesteday. 11. High INR likely due to hepatic failure. S/P FFP and Vit K. INR [address] Walton Subjective Subjective No SVT or VT.In sinus tach 120-130s On Vent via Trach getting transfusion. Says wants to go home in [facility] Objective Last 24 Hour Vital Signs Date Time Temp Pulse Resp B/P (MAP) Pulse Ox O2 Delivery O2 Flow Rate FiO2 10/25/17 12:00 50 10/25/17 12:00 119 10/25/17 12:00 98.1 121 41 146/68 99 Mechanical Ventilator 50 98.1 10/25/17 11:10 121 42 50 10/25/17 09:05 115 134/66 10/25/17 08:37 115 44 50 10/25/17 08:00 97.6 105 40 134/66 95 Mechanical Ventilator 50 97.6 10/25/17 08:00 50 10/25/17 08:00 113 10/25/17 07:19 114 40 50 10/25/17 05:37 127 46 50 10/25/17 04:00 50 10/25/17 04:00 104 10/25/17 04:00 98.1 97 28 129/55 100 Mechanical Ventilator 40 98.1 10/25/17 03:33 98 41 50 10/25/17 01:23 99 42 50 10/25/17 00:00 50 10/25/17 00:00 109 10/25/17 00:00 99.0 100 28 126/61 99 Mechanical Ventilator 40 99.0 10/24/17 22:50 105 38 50 10/24/17 21:30 111 39 50 10/24/17 20:00 97.0 114 23 118/64 99 Mechanical Ventilator 40 97.0 10/24/17 20:00 115 10/24/17 20:00 50 10/24/17 19:10 116 37 50 10/24/17 18:10 110 118/58 10/24/17 17:18 110 33 50 10/24/17 16:07 40 10/24/17 16:00 98.0 99 23 121/62 99 Mechanical Ventilator 40 98.0 10/24/17 16:00 118 10/24/17 14:30 98 30 40 Intake and Output 10/24/17 10/25/17 19:00 07:00 Intake Total 1510 ml 1560.0 ml Output Total 352 ml 501 ml Balance 1158 ml 1059.0 ml Free Water 200 ml IV Total 470 ml 960.0 ml Tube Feeding 600 ml 600 ml Other 240 ml Output Urine Total 350 ml 500 ml Stool Total 2 ml 1 ml # Bowel Movements 1 4 Laboratory Tests Test 10/24/17 18:00 10/25/17 03:55 10/25/17 05:30 Maciej-Payne Virus Capsid Ag IgM Ab Pending Monoscreen Pending White Blood Count 12.9 K/UL (4.8-10.8) H 12.4 K/UL (4.8-10.8) H Red Blood Count 1.95 M/UL (4.20-5.40) L 1.88 M/UL (4.20-5.40) L Hemoglobin 6.5 G/DL (12.0-16.0) *L 6.3 G/DL (12.0-16.0) *L Hematocrit 18.8 % (37.0-47.0) #L 18.1 % (37.0-47.0) L Mean Corpuscular Volume 96 FL (80-99) 96 FL (80-99) Mean Corpuscular Hemoglobin 33.2 PG (27.0-31.0) H 33.3 PG (27.0-31.0) H Mean Corpuscular Hemoglobin Concent 34.6 G/DL (32.0-36.0) 34.6 G/DL (32.0-36.0) Red Cell Distribution Width 15.5 % (11.6-14.8) H 15.9 % (11.6-14.8) H Platelet Count 141 K/UL (150-450) L 153 K/UL (150-450) Mean Platelet Volume 7.8 FL (6.5-10.1) 8.4 FL (6.5-10.1) Neutrophils (%) (Auto) % (45.0-75.0) % (45.0-75.0) Lymphocytes (%) (Auto) % (20.0-45.0) % (20.0-45.0) Monocytes (%) (Auto) % (1.0-10.0) % (1.0-10.0) Eosinophils (%) (Auto) % (0.0-3.0) % (0.0-3.0) Basophils (%) (Auto) % (0.0-2.0) % (0.0-2.0) Differential Total Cells Counted 100 100 Neutrophils % (Manual) 81 % (45-75) H 77 % (45-75) H Lymphocytes % (Manual) 10 % (20-45) L 14 % (20-45) L Monocytes % (Manual) 8 % (1-10) 9 % (1-10) Eosinophils % (Manual) 1 % (0-3) 0 % (0-3) Basophils % (Manual) 0 % (0-2) 0 % (0-2) Band Neutrophils 0 % (0-8) 0 % (0-8) Platelet Estimate Decreased L Adequate Platelet Morphology Normal Normal Hypochromasia 1+ 1+ Anisocytosis 1+ 1+ Sodium Level 138 MMOL/L (136-145) Potassium Level 3.3 MMOL/L (3.5-5.1) L Chloride Level 104 MMOL/L (98-107) Carbon Dioxide Level 27 MMOL/L (21-32) Anion Gap 7 mmol/L (5-15) Blood Urea Nitrogen 23 mg/dL (7-18) H Creatinine 0.7 MG/DL (0.55-1.30) Estimat Glomerular Filtration Rate mL/min (>60) Glucose Level 211 MG/DL (74-106) H Calcium Level 7.5 MG/DL (8.5-10.1) L Phosphorus Level 3.3 MG/DL (2.5-4.9) Magnesium Level 1.7 MG/DL (1.8-2.4) L Total Bilirubin 6.8 MG/DL (0.2-1.0) H Direct Bilirubin 6.1 MG/DL (0.0-0.3) H Aspartate Amino Transf (AST/SGOT) 510 U/L (15-37) H Alanine Aminotransferase (ALT/SGPT) 495 U/L (12-78) H Alkaline Phosphatase 2724 U/L (46-116) H Total Protein 5.9 G/DL (6.4-8.2) L Albumin 1.6 G/DL (3.4-5.0) L Globulin 4.3 g/dL Albumin/Globulin Ratio 0.4 (1.0-2.7) L Cytomegalovirus DNA Qual (PCR) Pending Objective HEAD AND NECK: Tracheostomy in place LUNGS: Coarse rhonchi bilaterally CARDIOVASCULAR: Tachy S1 and S2.No murmur ABDOMEN: Soft.PEG in place EXTREMITIES: No edema. Charlie Darnell MD Oct 25, 2017 13:36
[2017-10-25] MEDS ORDERED: Acetaminophen 650mg/20.3ml NG ONE (14:45)
[2017-10-25] MEDS ORDERED: Acetaminophen 650mg/20.3ml NG PRN (14:45)
[2017-10-25] MEDS ORDERED: D5 1/2NS 1000ml IV ONE (14:57)
[2017-10-25] MEDS ORDERED: NS 275ml ONE (14:57)
--- NOTE | 2017-10-25 15:27 | Internal Med Progress Note ---
Subjective Date of Service: Oct 25, 2017 Physician Name Sina Bowens Attending Physician Jesus Barahona MD Current Medications Medications (Trade) Dose Ordered Sig/Hermes Route PRN Reason Start Time Stop Time Status Last Admin Dose Admin Acetaminophen (Tylenol) 650 mg Q6H PRN NG Pain Scale (3-5) 10/25/17 14:45 11/24/17 14:44 10/25/17 14:45 Clotrimazole (Lotrimin) 1 applic EVERY 12 HOURS TOPIC 10/14/17 21:00 11/09/17 22:59 10/25/17 09:06 Dextrose (Dextrose 50%) 25 ml STAT PRN IV Hypoglycemia 10/18/17 08:30 11/17/17 08:29 Dextrose (Dextrose 50%) 50 ml STAT PRN IV Hypoglycemia 10/18/17 08:30 11/17/17 08:29 Dextrose/Sodium Chloride 1,000 ml @ 75 mls/hr [id number] IV 10/24/17 11:30 11/23/17 11:29 10/25/17 14:14 Diltiazem HCl (Cardizem) 30 mg BID NG 10/14/17 18:00 11/10/17 08:59 10/25/17 09:05 Insulin Aspart (NovoLOG) Q6HR SUBQ 10/18/17 12:00 11/17/17 11:59 10/25/17 13:41 Allergies: Coded Allergies: No Known Allergies (Verified , 11/18/08) Subjective 76 YO F admitted with Shortness of breath, now respiratory failure. Intubated and sedated. Cover for Internal Med-Dr. Barahona. RAJINDER . S/P ERCP 10/08/17. S/P Tracheostomy and bronchoscopy 10/13/17. Await transfer to [place] subacute [facility] Objective Last Vital Signs Date Time Temp Pulse Resp B/P (MAP) Pulse Ox O2 Delivery O2 Flow Rate FiO2 10/25/17 15:16 136 44 50 10/25/17 12:00 98.1 146/68 99 Mechanical Ventilator 98.1 Laboratory Tests Test 10/24/17 18:00 10/25/17 03:55 10/25/17 05:30 Maciej-Payne Virus Capsid Ag IgM Ab Pending Monoscreen Pending White Blood Count 12.9 K/UL (4.8-10.8) H 12.4 K/UL (4.8-10.8) H Red Blood Count 1.95 M/UL (4.20-5.40) L 1.88 M/UL (4.20-5.40) L Hemoglobin 6.5 G/DL (12.0-16.0) *L 6.3 G/DL (12.0-16.0) *L Hematocrit 18.8 % (37.0-47.0) #L 18.1 % (37.0-47.0) L Mean Corpuscular Volume 96 FL (80-99) 96 FL (80-99) Mean Corpuscular Hemoglobin 33.2 PG (27.0-31.0) H 33.3 PG (27.0-31.0) H Mean Corpuscular Hemoglobin Concent 34.6 G/DL (32.0-36.0) 34.6 G/DL (32.0-36.0) Red Cell Distribution Width 15.5 % (11.6-14.8) H 15.9 % (11.6-14.8) H Platelet Count 141 K/UL (150-450) L 153 K/UL (150-450) Mean Platelet Volume 7.8 FL (6.5-10.1) 8.4 FL (6.5-10.1) Neutrophils (%) (Auto) % (45.0-75.0) % (45.0-75.0) Lymphocytes (%) (Auto) % (20.0-45.0) % (20.0-45.0) Monocytes (%) (Auto) % (1.0-10.0) % (1.0-10.0) Eosinophils (%) (Auto) % (0.0-3.0) % (0.0-3.0) Basophils (%) (Auto) % (0.0-2.0) % (0.0-2.0) Differential Total Cells Counted 100 100 Neutrophils % (Manual) 81 % (45-75) H 77 % (45-75) H Lymphocytes % (Manual) 10 % (20-45) L 14 % (20-45) L Monocytes % (Manual) 8 % (1-10) 9 % (1-10) Eosinophils % (Manual) 1 % (0-3) 0 % (0-3) Basophils % (Manual) 0 % (0-2) 0 % (0-2) Band Neutrophils 0 % (0-8) 0 % (0-8) Platelet Estimate Decreased L Adequate Platelet Morphology Normal Normal Hypochromasia 1+ 1+ Anisocytosis 1+ 1+ Sodium Level 138 MMOL/L (136-145) Potassium Level 3.3 MMOL/L (3.5-5.1) L Chloride Level 104 MMOL/L (98-107) Carbon Dioxide Level 27 MMOL/L (21-32) Anion Gap 7 mmol/L (5-15) Blood Urea Nitrogen 23 mg/dL (7-18) H Creatinine 0.7 MG/DL (0.55-1.30) Estimat Glomerular Filtration Rate mL/min (>60) Glucose Level 211 MG/DL (74-106) H Calcium Level 7.5 MG/DL (8.5-10.1) L Phosphorus Level 3.3 MG/DL (2.5-4.9) Magnesium Level 1.7 MG/DL (1.8-2.4) L Total Bilirubin 6.8 MG/DL (0.2-1.0) H Direct Bilirubin 6.1 MG/DL (0.0-0.3) H Aspartate Amino Transf (AST/SGOT) 510 U/L (15-37) H Alanine Aminotransferase (ALT/SGPT) 495 U/L (12-78) H Alkaline Phosphatase 2724 U/L (46-116) H Total Protein 5.9 G/DL (6.4-8.2) L Albumin 1.6 G/DL (3.4-5.0) L Globulin 4.3 g/dL Albumin/Globulin Ratio 0.4 (1.0-2.7) L Cytomegalovirus DNA Qual (PCR) Pending Intake and Output 10/24/17 10/25/17 19:00 07:00 Intake Total 1510 ml 1560.0 ml Output Total 352 ml 501 ml Balance 1158 ml 1059.0 ml Free Water 200 ml IV Total 470 ml 960.0 ml Tube Feeding 600 ml 600 ml Other 240 ml Output Urine Total 350 ml 500 ml Stool Total 2 ml 1 ml # Bowel Movements 1 4 Objective General Appearance: lethargic, thin EENT: normal ENT inspection Neck: Trach; non-tender, normal alignment, supple Cardiovascular: normal peripheral pulses, normal rate, regular rhythm, no gallop/murmur, no JVD Respiratory/Chest: Mechanical vent; trach; ; respiratory distress, crackles/ rales, rhonchi - bilaterally, expiratory wheezing Abdomen: normal bowel sounds, non tender, soft, no organomegaly, no mass Skin: normal pigmentation, warm/dry Assessment/Plan Problem List: (1) HTN (hypertension) Assessment & Plan: Currently hypotensive. (2) Arthritis, rheumatoid (3) Parkinsons disease (4) Aplastic anemia (5) GERD (gastroesophageal reflux disease) (6) Respiratory failure Assessment & Plan: S/P Tracheostomy and broncholsopy 10/13/17. Cont vent per pulmonary (7) Pneumonia (8) Dyspnea (9) Sepsis Assessment & Plan: Blood culture neg. Continue Amikacin, micafungin and flagyl per ID (10) ARDS (adult respiratory distress syndrome) Assessment & Plan: See pulmonary note (11) UTI (urinary tract infection) Assessment & Plan: E.Coli. Continue abx per ID (12) Anemia Assessment & Plan: S/P Transfusion 4 units PRBC (13) Diabetes mellitus, type II Assessment & Plan: Continue novolog sliding scale (14) Leukocytosis Assessment & Plan: Worsening. See ID note. Start amikacin and fluconazole (15) Thrombocytopenia (16) Gallbladder sludge Assessment & Plan: s/P ERCP 10/01, 10/07/17 and 10/08/17 (17) Coagulopathy Assessment & Plan: S/P FFP and Vit K Assessment/Plan Discharge planning: [place] vs [place] [facility] fac SINA BOWENS Oct 25, 2017 15:27
[2017-10-25 16:00] VITALS: BP 135/59
[2017-10-25 20:00] VITALS: BP 135/60
--- NOTE | 2017-10-25 23:25 | General Progress Note ---
Assessment/Plan Assessment/Plan #. Anemia due to underlying chronic disease. Continue to closely monitor. --> Hemoglobin goal is above 7. --> S/P blood transfusion as hemoglobin levels fell low. --> Occult blood detected. Consider GI recs. --> Transfuse as necessary --> Blood transfusion pending today as hemoglobin levels dropped below goal. #. Sepsis. --> Leukocytosis likely related to underlying pneumonia infection. --> Wbc count elevated. Improved and downtrended. --> On Iv antibiotics. Monitor for improvement. #. Coagulopathy - potentially related to DIC early onset, review hapto, inr repeat, fibrinogen, DIC panel --> S/P FFP and Vit K --> DW pulm Dr. Parehk --> Likely related to infection versus other cause. On antibiotics. --> Prophylaxis. #. Pancytopenia --> WBC count and platelet counts are within normal levels now. --> Hemoglobin levels downtrended. Transfuse if continues to drop. --> S/P Platelet transfusion --> Monitor and trend cbc daily. #. Thrombocytopenia, severe and progressive, acute onset, likely secondary to underlying infection, aspiration, hit was negative --> Duplex of the lower extremities is negative, therefore less likely HIT and other causes are more likely such as underlying infection. --> Platelets goal >20k, transfuse if necessary. --> On antibiotics as per ID --> Platelet count has been downtrending, monitor closely. #. Respiratory failure, vent dependent --> acute respiratory distress syndrome. --> S/P tracheostomy. Cont vent per pulmonary. #. Community-acquired pneumonia versus hospital-acquired. --> The patient on broad-spectrum antibiotics. --> Improved. --> Urine culture growing E. coli. Continue to closely monitor. #. Transaminitis. She has been seen by GI Service. Continue to closely monitor. #. Low-grade fever. Closely observe. #. Encephalopathy. Parkinson's Disease. #. Diabetes mellitus II. #. Tube feeding. #. Hypertension. --> BP currently normal Subjective Date patient seen: Oct 25, 2017 Constitutional: Denies: no symptoms, chills, diaphoresis, fever, malaise, weakness, other HEENT: Denies: no symptoms, eye pain, blurred vision, tearing, double vision, ear pain, ear discharge, nose pain, nose congestion, throat pain, throat swelling, mouth pain, mouth swelling, other Cardiovascular: Denies: no symptoms, chest pain, edema, irregular heart rate, lightheadedness, palpitations, syncope, other Respiratory: Denies: no symptoms, cough, orthopnea, shortness of breath, SOB with excertion, SOB at rest, sputum, stridor, wheezing, other Gastrointestinal/Abdominal: Denies: no symptoms, abdomen distended, abdominal pain, black stools, tarry stools, blood in stool, constipated, diarrhea, difficulty swallowing, nausea, poor appetite, poor fluid intake, rectal bleeding , vomiting, other Genitourinary: Denies: no symptoms, burning, discharge, frequency, flank pain, hematuria, incontinence, pain, urgency, other 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: Denies: no symptoms, anxiety, depressed, emotional problems, headache, numbness, paresthesia, pre-existing deficit, seizure, tingling, tremors, weakness, other Hematologic/Lymphatic: Reports: anemia Allergies: Coded Allergies: No Known Allergies (Verified , 11/18/08) Subjective Hemoglobin downtrended today. Pending blood transfusion. Objective Last 24 Hour Vital Signs Date Time Temp Pulse Resp B/P (MAP) Pulse Ox O2 Delivery O2 Flow Rate FiO2 10/25/17 22:51 89 36 50 10/25/17 20:50 97 36 50 10/25/17 20:00 84 10/25/17 20:00 50 10/25/17 20:00 97.6 90 38 135/60 100 Mechanical Ventilator 50 97.6 10/25/17 19:10 97 36 50 10/25/17 17:34 97 135/59 10/25/17 17:17 97 36 50 10/25/17 16:00 118 10/25/17 16:00 97.9 105 40 135/59 100 Mechanical Ventilator 50 97.9 10/25/17 16:00 50 10/25/17 15:16 136 44 50 10/25/17 13:12 119 36 50 10/25/17 12:00 50 10/25/17 12:00 119 10/25/17 12:00 98.1 121 41 146/68 99 Mechanical Ventilator 50 98.1 10/25/17 11:10 121 42 50 10/25/17 09:05 115 134/66 10/25/17 08:37 115 44 50 10/25/17 08:00 97.6 105 40 134/66 95 Mechanical Ventilator 50 97.6 10/25/17 08:00 50 10/25/17 08:00 113 10/25/17 07:19 114 40 50 10/25/17 05:37 127 46 50 10/25/17 04:00 50 10/25/17 04:00 104 10/25/17 04:00 98.1 97 28 129/55 100 Mechanical Ventilator 40 98.1 10/25/17 03:33 98 41 50 10/25/17 01:23 99 42 50 10/25/17 00:00 50 10/25/17 00:00 109 10/25/17 00:00 99.0 100 28 126/61 99 Mechanical Ventilator 40 99.0 Intake and Output 10/24/17 10/25/17 19:00 07:00 Intake Total 1510 ml 1560.0 ml Output Total 352 ml 501 ml Balance 1158 ml 1059.0 ml Free Water 200 ml IV Total 470 ml 960.0 ml Tube Feeding 600 ml 600 ml Other 240 ml Output Urine Total 350 ml 500 ml Stool Total 2 ml 1 ml # Bowel Movements 1 4 Laboratory Tests 10/25/17 03:55: White Blood Count 12.9H, Red Blood Count 1.95L, Hemoglobin 6.5*L, Hematocrit 18.8#L, Mean Corpuscular Volume 96, Mean Corpuscular Hemoglobin 33.2H, Mean Corpuscular Hemoglobin Concent 34.6, Red Cell Distribution Width 15.5H, Platelet Count 141L, Mean Platelet Volume 7.8, Neutrophils (%) (Auto) , Lymphocytes (%) (Auto) , Monocytes (%) (Auto) , Eosinophils (%) (Auto) , Basophils (%) (Auto) , Differential Total Cells Counted 100, Neutrophils % ( Manual) 81H, Lymphocytes % (Manual) 10L, Monocytes % (Manual) 8, Eosinophils % ( Manual) 1, Basophils % (Manual) 0, Band Neutrophils 0, Platelet Estimate DecreasedL, Platelet Morphology Normal, Hypochromasia 1+, Anisocytosis 1+, Sodium Level 138, Potassium Level 3.3L, Chloride Level 104, Carbon Dioxide Level 27, Anion Gap 7, Blood Urea Nitrogen 23H, Creatinine 0.7, Estimat Glomerular Filtration Rate , Glucose Level 211H, Calcium Level 7.5L, Phosphorus Level 3.3, Magnesium Level 1.7L, Total Bilirubin 6.8H, Direct Bilirubin 6.1H, Aspartate Amino Transf (AST/SGOT) 510H, Alanine Aminotransferase (ALT/SGPT) 495H , Alkaline Phosphatase 2724H, Total Protein 5.9L, Albumin 1.6L, Globulin 4.3, Albumin/Globulin Ratio 0.4L, Cytomegalovirus DNA Qual (PCR) [Pending] 10/25/17 05:30: White Blood Count 12.4H, Red Blood Count 1.88L, Hemoglobin 6.3*L, Hematocrit 18.1L, Mean Corpuscular Volume 96, Mean Corpuscular Hemoglobin 33.3H, Mean Corpuscular Hemoglobin Concent 34.6, Red Cell Distribution Width 15.9H, Platelet Count 153, Mean Platelet Volume 8.4, Neutrophils (%) (Auto) , Lymphocytes (%) (Auto) , Monocytes (%) (Auto) , Eosinophils (%) (Auto) , Basophils (%) (Auto) , Differential Total Cells Counted 100, Neutrophils % ( Manual) 77H, Lymphocytes % (Manual) 14L, Monocytes % (Manual) 9, Eosinophils % ( Manual) 0, Basophils % (Manual) 0, Band Neutrophils 0, Platelet Estimate Adequate, Platelet Morphology Normal, Hypochromasia 1+, Anisocytosis 1+ Height (Feet): 5 Height (Inches): 5.00 Weight (Pounds): 84 General Appearance: confused Respiratory/Chest: decreased breath sounds Johnny Sinha MD Oct 25, 2017 23:25
[2017-10-26] VITALS: BP 137/63
[2017-10-26] MEDS: D5 1/2NS 1,000 ML IV SCH ×2 (03:30→17:40)
[2017-10-26 04:00] VITALS: BP 133/75
[2017-10-26 04:58] LABS: BASOPHILS % (AUTO) 1.2 % (0.0-2.0); EOSINOPHILS % (AUTO) 1.4 % (0.0-3.0); HEMATOCRIT 28.5 % (37.0-47.0); HEMOGLOBIN 9.7 G/DL (12.0-16.0); LYMPHOCYTES % (AUTO) 9.1 % (20.0-45.0); MEAN CORPUSCULAR VOLUME 91 FL (80-99); MONOCYTES % (AUTO) 8.4 % (1.0-10.0); NEUTROPHILS % (AUTO) 79.8 % (45.0-75.0); PLATELET COUNT 147 K/UL (150-450); RED BLOOD COUNT 3.12 M/UL (4.20-5.40); RED CELL DISTRIBUTION WIDTH 16.5 % (11.6-14.8); WHITE BLOOD COUNT 15.5 K/UL (4.8-10.8)
[2017-10-26 05:29] LABS: ALANINE AMINOTRANSFERASE 379 U/L (12-78); ALBUMIN 1.7 G/DL (3.4-5.0); ALBUMIN/GLOBULIN RATIO 0.4 (1.0-2.7); ALKALINE PHOSPHATASE 2283 U/L (46-116); AMYLASE 29 U/L (25-115); ANION GAP 9 mmol/L (5-15); ASPARTATE AMINO TRANSFERASE 255 U/L (15-37); BILIRUBIN,DIRECT 7.1 MG/DL (0.0-0.3); BILIRUBIN,TOTAL 8.4 MG/DL (0.2-1.0); BLOOD UREA NITROGEN 23 mg/dL (7-18); CALCIUM 7.9 MG/DL (8.5-10.1); CARBON DIOXIDE 25 MMOL/L (21-32); CHLORIDE 108 MMOL/L (98-107); CREATININE 0.6 MG/DL (0.55-1.30); PHOSPHORUS 1.9 MG/DL (2.5-4.9); SODIUM 142 MMOL/L (136-145)
[2017-10-26] MEDS: NovoLOG Insulin Flexpen SUBQ SCH ×3 (05:34→17:42)
--- NOTE | 2017-10-26 07:42 | General Progress Note ---
Assessment/Plan Problem List: (1) Transaminitis ICD Codes: R74.0 - Nonspecific elevation of levels of transaminase and lactic acid dehydrogenase [LDH] SNOMED: 978270003, 891543606 (2) Anemia ICD Codes: D64.9 - Anemia, unspecified SNOMED: 354317265 (3) Diabetes mellitus ICD Codes: E11.9 - Type 2 diabetes mellitus without complications SNOMED: 72700443 (4) Respiratory failure ICD Codes: J96.90 - Respiratory failure, unspecified, unspecified whether with hypoxia or hypercapnia SNOMED: 183307987 Qualifiers: Qualified Codes: J96.00 - Acute respiratory failure, unspecified whether with hypoxia or hypercapnia Assessment/Plan TF tolerated fu LFTS CT reviewed Cholestasis ? due to abx, off Zosyn since yesterday >>> improved LFTS but still elevated TB, >> repeat labs for tomorrow s/p ERCP and stent placement last week Subjective ROS Limited/Unobtainable: No Allergies: Coded Allergies: No Known Allergies (Verified , 11/18/08) Subjective intubated in the ICU Objective Last 24 Hour Vital Signs Date Time Temp Pulse Resp B/P (MAP) Pulse Ox O2 Delivery O2 Flow Rate FiO2 10/26/17 06:53 100 35 50 10/26/17 04:52 90 34 50 10/26/17 04:00 50 10/26/17 04:00 93 10/26/17 04:00 98.4 89 36 133/75 99 Mechanical Ventilator 50 98.4 10/26/17 02:59 86 36 50 10/26/17 01:51 87 39 50 10/26/17 00:00 98.2 85 39 137/63 99 Mechanical Ventilator 50 98.2 10/26/17 00:00 87 10/25/17 22:51 89 36 50 10/25/17 20:50 97 36 50 10/25/17 20:00 84 10/25/17 20:00 50 10/25/17 20:00 97.6 90 38 135/60 100 Mechanical Ventilator 50 97.6 10/25/17 19:10 97 36 50 10/25/17 17:34 97 135/59 10/25/17 17:17 97 36 50 10/25/17 16:00 118 10/25/17 16:00 97.9 105 40 135/59 100 Mechanical Ventilator 50 97.9 10/25/17 16:00 50 10/25/17 15:16 136 44 50 10/25/17 13:12 119 36 50 10/25/17 12:00 50 10/25/17 12:00 119 10/25/17 12:00 98.1 121 41 146/68 99 Mechanical Ventilator 50 98.1 10/25/17 11:10 121 42 50 10/25/17 09:05 115 134/66 10/25/17 08:37 115 44 50 10/25/17 08:00 97.6 105 40 134/66 95 Mechanical Ventilator 50 97.6 10/25/17 08:00 50 10/25/17 08:00 113 Intake and Output 10/25/17 10/26/17 19:00 07:00 Intake Total 1842.666 ml 1766.5 ml Output Total 400 ml 250 ml Balance 1442.666 ml 1516.5 ml IV Total 1061.666 ml 937.5 ml Tube Feeding 431 ml 429 ml Blood Product 250 ml 250 ml Other 100 ml 150 ml Output Urine Total 400 ml 250 ml # Bowel Movements 4 4 Laboratory Tests 10/26/17 03:00: White Blood Count 15.5H, Red Blood Count 3.12L, Hemoglobin 9.7#L, Hematocrit 28.5#L, Mean Corpuscular Volume 91, Mean Corpuscular Hemoglobin 31.0, Mean Corpuscular Hemoglobin Concent 34.0, Red Cell Distribution Width 16.5H, Platelet Count 147L, Mean Platelet Volume 8.3, Neutrophils (%) (Auto) 79.8H, Lymphocytes (%) (Auto) 9.1L, Monocytes (%) (Auto) 8.4, Eosinophils (%) (Auto) 1.4, Basophils (%) (Auto) 1.2, Erythrocyte Sedimentation Rate [Pending], Sodium Level 142, Potassium Level 4.0, Chloride Level 108H, Carbon Dioxide Level 25, Anion Gap 9, Blood Urea Nitrogen 23H, Creatinine 0.6, Estimat Glomerular Filtration Rate , Glucose Level 122H, Calcium Level 7.9L, Phosphorus Level 1.9L , Magnesium Level 2.5H, Total Bilirubin 8.4H, Direct Bilirubin 7.1H, Aspartate Amino Transf (AST/SGOT) 255H, Alanine Aminotransferase (ALT/SGPT) 379H, Alkaline Phosphatase 2283H, C-Reactive Protein, Quantitative 22.7H, Total Protein 6.3L, Albumin 1.7L, Globulin 4.6, Albumin/Globulin Ratio 0.4L, Amylase Level 29, Lipase 46L Height (Feet): 5 Height (Inches): 5.00 Weight (Pounds): 76 General Appearance: lethargic EENT: scleral icterus Neck: non-tender Cardiovascular: normal rate Respiratory/Chest: decreased breath sounds Abdomen: soft, hypoactive bowel sounds Extremities: non-tender KIT GONZALEZ Oct 26, 2017 07:42
[2017-10-26 08:00] VITALS: BP 148/73
[2017-10-26] MEDS: dilTIAZem HCl 30mg tab NG SCH ×2 (08:58→17:40)
--- NOTE | 2017-10-26 09:48 | Pulmonology Progress Note ---
Assessment/Plan Problems: (1) ARDS (adult respiratory distress syndrome) (2) Sepsis (3) Coagulopathy (4) Aspiration pneumonia (5) Cholangitis (6) Diabetes mellitus, type II (7) Protein-calorie malnutrition, severe (8) Parkinsons disease Assessment/Plan bilirubin rising liver enzymes slightly less still on fio2 of 50% tolerating feeding titrate vent settings accordingly abx as per ID dvt prophylaxis cxr in am. Subjective ROS Limited/Unobtainable: No Constitutional: Reports: no symptoms HEENT: Repors: no symptoms Respiratory: Reports: no symptoms Allergies: Coded Allergies: No Known Allergies (Verified , 11/18/08) Objective Last 24 Hour Vital Signs Date Time Temp Pulse Resp B/P (MAP) Pulse Ox O2 Delivery O2 Flow Rate FiO2 10/26/17 08:58 102 148/73 10/26/17 08:52 102 31 50 10/26/17 08:00 50 10/26/17 08:00 98.2 92 27 148/73 100 Mechanical Ventilator 50 98.2 10/26/17 08:00 96 10/26/17 06:53 100 35 50 10/26/17 04:52 90 34 50 10/26/17 04:00 50 10/26/17 04:00 93 10/26/17 04:00 98.4 89 36 133/75 99 Mechanical Ventilator 50 98.4 10/26/17 02:59 86 36 50 10/26/17 01:51 87 39 50 10/26/17 00:00 98.2 85 39 137/63 99 Mechanical Ventilator 50 98.2 10/26/17 00:00 87 10/25/17 22:51 89 36 50 10/25/17 20:50 97 36 50 10/25/17 20:00 84 10/25/17 20:00 50 10/25/17 20:00 97.6 90 38 135/60 100 Mechanical Ventilator 50 97.6 10/25/17 19:10 97 36 50 10/25/17 17:34 97 135/59 10/25/17 17:17 97 36 50 10/25/17 16:00 118 10/25/17 16:00 97.9 105 40 135/59 100 Mechanical Ventilator 50 97.9 10/25/17 16:00 50 10/25/17 15:16 136 44 50 4/14/18 13:12 119 36 50 10/25/17 12:00 50 10/25/17 12:00 119 10/25/17 12:00 98.1 121 41 146/68 99 Mechanical Ventilator 50 98.1 10/25/17 11:10 121 42 50 Intake and Output 10/25/17 10/26/17 19:00 07:00 Intake Total 1842.666 ml 1766.5 ml Output Total 400 ml 250 ml Balance 1442.666 ml 1516.5 ml IV Total 1061.666 ml 937.5 ml Tube Feeding 431 ml 429 ml Blood Product 250 ml 250 ml Other 100 ml 150 ml Output Urine Total 400 ml 250 ml # Bowel Movements 4 4 General Appearance: cachetic HEENT: normocephalic, atraumatic Respiratory/Chest: chest wall non-tender, no respiratory distress Cardiovascular: normal peripheral pulses Abdomen: normal bowel sounds, no organomegaly Genitourinary: normal external genitalia Extremities: no cyanosis Skin: no rash Laboratory Tests 10/26/17 03:00: White Blood Count 15.5H, Red Blood Count 3.12L, Hemoglobin 9.7#L, Hematocrit 28.5#L, Mean Corpuscular Volume 91, Mean Corpuscular Hemoglobin 31.0, Mean Corpuscular Hemoglobin Concent 34.0, Red Cell Distribution Width 16.5H, Platelet Count 147L, Mean Platelet Volume 8.3, Neutrophils (%) (Auto) 79.8H, Lymphocytes (%) (Auto) 9.1L, Monocytes (%) (Auto) 8.4, Eosinophils (%) (Auto) 1.4, Basophils (%) (Auto) 1.2, Erythrocyte Sedimentation Rate 121H, Sodium Level 142, Potassium Level 4.0, Chloride Level 108H, Carbon Dioxide Level 25, Anion Gap 9, Blood Urea Nitrogen 23H, Creatinine 0.6, Estimat Glomerular Filtration Rate , Glucose Level 122H, Calcium Level 7.9L, Phosphorus Level 1.9L , Magnesium Level 2.5H, Total Bilirubin 8.4H, Direct Bilirubin 7.1H, Aspartate Amino Transf (AST/SGOT) 255H, Alanine Aminotransferase (ALT/SGPT) 379H, Alkaline Phosphatase 2283H, C-Reactive Protein, Quantitative 22.7H, Total Protein 6.3L, Albumin 1.7L, Globulin 4.6, Albumin/Globulin Ratio 0.4L, Amylase Level 29, Lipase 46L Current Medications Medications (Trade) Dose Ordered Sig/Hermes Route PRN Reason Start Time Stop Time Status Last Admin Dose Admin Acetaminophen (Tylenol) 650 mg Q6H PRN NG Pain Scale (3-5) 10/25/17 14:45 11/24/17 14:44 10/25/17 14:45 Clotrimazole (Lotrimin) 1 applic EVERY 12 HOURS TOPIC 10/14/17 21:00 11/09/17 22:59 10/26/17 08:58 Dextrose (Dextrose 50%) 25 ml STAT PRN IV Hypoglycemia 10/18/17 08:30 11/17/17 08:29 Dextrose (Dextrose 50%) 50 ml STAT PRN IV Hypoglycemia 10/18/17 08:30 11/17/17 08:29 Dextrose/Sodium Chloride 1,000 ml @ 75 mls/hr [id number] IV 10/24/17 11:30 11/23/17 11:29 10/26/17 03:30 Diltiazem HCl (Cardizem) 30 mg BID NG 10/14/17 18:00 11/10/17 08:59 10/26/17 08:58 Insulin Aspart (NovoLOG) Q6HR SUBQ 10/18/17 12:00 11/17/17 11:59 10/26/17 05:34 Tayler Liu MD Oct 26, 2017 09:48
[2017-10-26 12:00] VITALS: BP 152/74
--- NOTE | 2017-10-26 15:09 | Internal Med Progress Note ---
Subjective Date of Service: Oct 26, 2017 Physician Name Sina Bowens Attending Physician Jesus Barahona MD Current Medications Medications (Trade) Dose Ordered Sig/Hermes Route PRN Reason Start Time Stop Time Status Last Admin Dose Admin Acetaminophen (Tylenol) 650 mg Q6H PRN NG Pain Scale (3-5) 10/25/17 14:45 11/24/17 14:44 10/25/17 14:45 Clotrimazole (Lotrimin) 1 applic EVERY 12 HOURS TOPIC 10/14/17 21:00 11/09/17 22:59 10/26/17 08:58 Dextrose (Dextrose 50%) 25 ml STAT PRN IV Hypoglycemia 10/18/17 08:30 11/17/17 08:29 Dextrose (Dextrose 50%) 50 ml STAT PRN IV Hypoglycemia 10/18/17 08:30 11/17/17 08:29 Dextrose/Sodium Chloride 1,000 ml @ 75 mls/hr [id number] IV 10/24/17 11:30 11/23/17 11:29 10/26/17 03:30 Diltiazem HCl (Cardizem) 30 mg BID NG 10/14/17 18:00 11/10/17 08:59 10/26/17 08:58 Insulin Aspart (NovoLOG) Q6HR SUBQ 10/18/17 12:00 11/17/17 11:59 10/26/17 12:05 Allergies: Coded Allergies: No Known Allergies (Verified , 11/18/08) ROS Limited/Unobtainable: No Constitutional: Reports: no symptoms HEENT: Reports: no symptoms Cardiovascular: Reports: no symptoms Respiratory: Reports: no symptoms Gastrointestinal/Abdominal: Reports: no symptoms Genitourinary: Reports: no symptoms 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: Reports: no symptoms Subjective 76 YO F admitted with Shortness of breath, now respiratory failure. Intubated and sedated. Cover for Internal Med-Dr. Barahona. RAJINDER . S/P ERCP 10/08/17. S/P Tracheostomy and bronchoscopy 10/13/17. More alert today. Await transfer to [facility] [facility] vs [facility] Objective Last Vital Signs Date Time Temp Pulse Resp B/P (MAP) Pulse Ox O2 Delivery O2 Flow Rate FiO2 10/26/17 14:56 89 28 50 10/26/17 12:00 98.3 152/74 100 Mechanical Ventilator 98.3 Laboratory Tests Test 10/26/17 03:00 White Blood Count 15.5 K/UL (4.8-10.8) H Red Blood Count 3.12 M/UL (4.20-5.40) L Hemoglobin 9.7 G/DL (12.0-16.0) #L Hematocrit 28.5 % (37.0-47.0) #L Mean Corpuscular Volume 91 FL (80-99) Mean Corpuscular Hemoglobin 31.0 PG (27.0-31.0) Mean Corpuscular Hemoglobin Concent 34.0 G/DL (32.0-36.0) Red Cell Distribution Width 16.5 % (11.6-14.8) H Platelet Count 147 K/UL (150-450) L Mean Platelet Volume 8.3 FL (6.5-10.1) Neutrophils (%) (Auto) 79.8 % (45.0-75.0) H Lymphocytes (%) (Auto) 9.1 % (20.0-45.0) L Monocytes (%) (Auto) 8.4 % (1.0-10.0) Eosinophils (%) (Auto) 1.4 % (0.0-3.0) Basophils (%) (Auto) 1.2 % (0.0-2.0) Erythrocyte Sedimentation Rate 121 MM/HR (0-30) H Sodium Level 142 MMOL/L (136-145) Potassium Level 4.0 MMOL/L (3.5-5.1) Chloride Level 108 MMOL/L (98-107) H Carbon Dioxide Level 25 MMOL/L (21-32) Anion Gap 9 mmol/L (5-15) Blood Urea Nitrogen 23 mg/dL (7-18) H Creatinine 0.6 MG/DL (0.55-1.30) Estimat Glomerular Filtration Rate mL/min (>60) Glucose Level 122 MG/DL (74-106) H Calcium Level 7.9 MG/DL (8.5-10.1) L Phosphorus Level 1.9 MG/DL (2.5-4.9) L Magnesium Level 2.5 MG/DL (1.8-2.4) H Total Bilirubin 8.4 MG/DL (0.2-1.0) H Direct Bilirubin 7.1 MG/DL (0.0-0.3) H Aspartate Amino Transf (AST/SGOT) 255 U/L (15-37) H Alanine Aminotransferase (ALT/SGPT) 379 U/L (12-78) H Alkaline Phosphatase 2283 U/L (46-116) H C-Reactive Protein, Quantitative 22.7 mg/dL (0.00-0.90) H Total Protein 6.3 G/DL (6.4-8.2) L Albumin 1.7 G/DL (3.4-5.0) L Globulin 4.6 g/dL Albumin/Globulin Ratio 0.4 (1.0-2.7) L Amylase Level 29 U/L (25-115) Lipase 46 U/L (73-393) L Intake and Output 10/25/17 10/26/17 19:00 07:00 Intake Total 1842.666 ml 1766.5 ml Output Total 400 ml 250 ml Balance 1442.666 ml 1516.5 ml IV Total 1061.666 ml 937.5 ml Tube Feeding 431 ml 429 ml Blood Product 250 ml 250 ml Other 100 ml 150 ml Output Urine Total 400 ml 250 ml # Bowel Movements 4 4 Objective General Appearance: lethargic, thin EENT: normal ENT inspection Neck: Trach; non-tender, normal alignment, supple Cardiovascular: normal peripheral pulses, normal rate, regular rhythm, no gallop/murmur, no JVD Respiratory/Chest: Mechanical vent; trach; ; respiratory distress, crackles/ rales, rhonchi - bilaterally, expiratory wheezing Abdomen: normal bowel sounds, non tender, soft, no organomegaly, no mass Skin: normal pigmentation, warm/dry Assessment/Plan Problem List: (1) HTN (hypertension) Assessment & Plan: Currently hypotensive. (2) Arthritis, rheumatoid (3) Parkinsons disease (4) Aplastic anemia (5) GERD (gastroesophageal reflux disease) (6) Respiratory failure Assessment & Plan: S/P Tracheostomy and broncholsopy 10/13/17. Cont vent per pulmonary (7) Pneumonia (8) Dyspnea (9) Sepsis Assessment & Plan: Blood culture neg. Continue Amikacin, micafungin and flagyl per ID (10) ARDS (adult respiratory distress syndrome) Assessment & Plan: See pulmonary note (11) UTI (urinary tract infection) Assessment & Plan: E.Coli. Continue abx per ID (12) Anemia Assessment & Plan: S/P Transfusion 2 units PRBC 10/25/17 (13) Diabetes mellitus, type II Assessment & Plan: Continue novolog sliding scale (14) Leukocytosis Assessment & Plan: Worsening. See ID note. Start amikacin and fluconazole (15) Thrombocytopenia (16) Gallbladder sludge Assessment & Plan: s/P ERCP 10/01, 10/07/17 and 10/08/17 (17) Coagulopathy Assessment & Plan: S/P FFP and Vit K Status: progressing Assessment/Plan Discharge planning: [place] vs [facility] fac SINA BOWENS Oct 26, 2017 15:09
[2017-10-26 16:00] VITALS: BP 134/70
--- NOTE | 2017-10-26 16:12 | Nephrology Progress Note ---
Assessment/Plan Problem List: (1) ARDS (adult respiratory distress syndrome) (2) Electrolyte imbalance (3) Thrombocytopenia Assessment worsening leukocytosis (1) ARDS (adult respiratory distress syndrome) s/p Trach (2) Aspiration pneumonia (3) Protein-calorie malnutrition, severe (4) Diabetes mellitus (5) Anemia , aplastic by history (6) DM (7) UTI (8) Electrolyte imbalance (9) HTN (10) Depression (11) RA . Plan Na Phos IV consider transfusion stable from renal stand - had trach and PEG water via NGT Adjust BP meds K and Phos supplement as needed Monitor renal parameters and urine output avoid nephrotoxics per orders discussed with RN Left ventricular ejection fraction estimated to be 55 %. Subjective ROS Limited/Unobtainable: Yes Objective Objective Last 24 Hour Vital Signs Date Time Temp Pulse Resp B/P (MAP) Pulse Ox O2 Delivery O2 Flow Rate FiO2 10/26/17 14:56 89 28 50 10/26/17 12:41 91 29 50 10/26/17 12:00 98.3 94 32 152/74 100 Mechanical Ventilator 50 98.3 10/26/17 12:00 94 10/26/17 12:00 50 10/26/17 10:48 104 34 50 10/26/17 08:58 102 148/73 10/26/17 08:52 102 31 50 10/26/17 08:00 50 10/26/17 08:00 98.2 92 27 148/73 100 Mechanical Ventilator 50 98.2 10/26/17 08:00 96 10/26/17 06:53 100 35 50 10/26/17 04:52 90 34 50 10/26/17 04:00 50 10/26/17 04:00 93 10/26/17 04:00 98.4 89 36 133/75 99 Mechanical Ventilator 50 98.4 10/26/17 02:59 86 36 50 10/26/17 01:51 87 39 50 10/26/17 00:00 98.2 85 39 137/63 99 Mechanical Ventilator 50 98.2 10/26/17 00:00 87 10/25/17 22:51 89 36 50 10/25/17 20:50 97 36 50 10/25/17 20:00 84 10/25/17 20:00 50 10/25/17 20:00 97.6 90 38 135/60 100 Mechanical Ventilator 50 97.6 10/25/17 19:10 97 36 50 10/25/17 17:34 97 135/59 10/25/17 17:17 97 36 50 Intake and Output 10/25/17 10/26/17 19:00 07:00 Intake Total 1842.666 ml 1766.5 ml Output Total 400 ml 250 ml Balance 1442.666 ml 1516.5 ml IV Total 1061.666 ml 937.5 ml Tube Feeding 431 ml 429 ml Blood Product 250 ml 250 ml Other 100 ml 150 ml Output Urine Total 400 ml 250 ml # Bowel Movements 4 4 Laboratory Tests 10/26/17 03:00: White Blood Count 15.5H, Red Blood Count 3.12L, Hemoglobin 9.7#L, Hematocrit 28.5#L, Mean Corpuscular Volume 91, Mean Corpuscular Hemoglobin 31.0, Mean Corpuscular Hemoglobin Concent 34.0, Red Cell Distribution Width 16.5H, Platelet Count 147L, Mean Platelet Volume 8.3, Neutrophils (%) (Auto) 79.8H, Lymphocytes (%) (Auto) 9.1L, Monocytes (%) (Auto) 8.4, Eosinophils (%) (Auto) 1.4, Basophils (%) (Auto) 1.2, Erythrocyte Sedimentation Rate 121H, Sodium Level 142, Potassium Level 4.0, Chloride Level 108H, Carbon Dioxide Level 25, Anion Gap 9, Blood Urea Nitrogen 23H, Creatinine 0.6, Estimat Glomerular Filtration Rate , Glucose Level 122H, Calcium Level 7.9L, Phosphorus Level 1.9L , Magnesium Level 2.5H, Total Bilirubin 8.4H, Direct Bilirubin 7.1H, Aspartate Amino Transf (AST/SGOT) 255H, Alanine Aminotransferase (ALT/SGPT) 379H, Alkaline Phosphatase 2283H, C-Reactive Protein, Quantitative 22.7H, Total Protein 6.3L, Albumin 1.7L, Globulin 4.6, Albumin/Globulin Ratio 0.4L, Amylase Level 29, Lipase 46L Height (Feet): 5 Height (Inches): 5.00 Weight (Pounds): 76 General Appearance: no apparent distress Cardiovascular: tachycardia Respiratory/Chest: decreased breath sounds Abdomen: distended Objective no change YAEL HANSEN Oct 26, 2017 16:12
[2017-10-26] MEDS ORDERED: Sodium Phosphate 15 MM in NS 275 ML IVPB ONE (17:30)
[2017-10-26 21:00] VITALS: BP 135/65
--- NOTE | 2017-10-26 21:07 | Infectious Diseases Prog Note ---
Assessment/Plan Assessment/Plan The patient is a 76-year-old female w 10/20 BCx : 07/16 CoNS ( m/l Contaminant, no Ctr line ) Fever , SP Leukocytosis, SP Cholangitis, Abnormal liver function tests, ALP>>> AST - worsening CT: subcentimeter low-attenuation hepatic lesions are too small to characterize, most likely benign simple cysts or bile hamartomas -SP ERCP 10/22 choledocholithiasis -s/p ERCP 10/08: Intraoperative images demonstrate faint opacification of the common bile duct, and placement of a new plastic endobiliary stent. What may be a previous malpositioned biliary stent is seen to the left of the endoscope -s/p ERCP with stent placement 10/01 -EUS 09/30: 1. Dilated common bile duct with lots of sludge in the distal common bile duct, most probably explanation for abnormal liver function tests. Large ascites Hep panel : neg Community-acquired vs healthcare-associated pneumonia, s/p RX 10/13 SP Fiberoptic bronchoscopy, bronchoalveolar lavage, upper airway endoscopy for percutaneous tracheostomy, bronchoscopy through tracheostomy BAL : Laila an Nl devon , AFB : Neg Viral Cx : NegTD -CT chest 10/07: Extensive diffuse bilateral pulmonary parenchymal disease, slightly worse than on prior exam of 09/23/2017. Main differential considerations include pneumonia, ARDS, pulmonary edema, among multiple other possibilities. Bilateral moderate to large pleural effusions, slightly increased in size from 09/23/2017. Nasogastric and endotracheal tubes in good position. Evidence of generalized anasarca, with diffuse subcutaneous soft tissue edema. 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 Depression. Anemia. Rheumatoid arthritis. History of gastritis. PLAN: change Zosyn d # 5 to Merrem d# 1 ( Empirically ) 10/24 IV Vanco d# 5 - 10/11 SP Ertapenem #7/7 10/09 SP MIcafungin #10 10/02 SP Amikacin #10 09/30 SP Flagyl #8 09/25 sp Fluconazole #3 (held due to rise ALP) 09/23 SP Meropenem #5, PO Vanco #2 09/21 SP tamiflu #10 -f/u AFB cultures ( BAL) : P Monitor CBC.; Monitor BMP.; Trend LFTs Monitor chest x-ray -GI, heme onc f/u - Monitor Culture ( Bl, Sp ) Subjective Allergies: Coded Allergies: No Known Allergies (Verified , 11/18/08) Subjective Afebrile no acute event Objective Vital Signs Last 24 Hour Vital Signs Date Time Temp Pulse Resp B/P (MAP) Pulse Ox O2 Delivery O2 Flow Rate FiO2 10/26/17 20:00 50 10/26/17 19:17 93 32 50 10/26/17 17:40 90 152/74 10/26/17 17:10 90 31 50 10/26/17 16:00 50 10/26/17 16:00 90 10/26/17 16:00 98.4 86 32 134/70 100 Mechanical Ventilator 50 98.4 10/26/17 14:56 89 28 50 10/26/17 12:41 91 29 50 10/26/17 12:00 98.3 94 32 152/74 100 Mechanical Ventilator 50 98.3 10/26/17 12:00 94 10/26/17 12:00 50 10/26/17 10:48 104 34 50 10/26/17 08:58 102 148/73 10/26/17 08:52 102 31 50 10/26/17 08:00 50 10/26/17 08:00 98.2 92 27 148/73 100 Mechanical Ventilator 50 98.2 10/26/17 08:00 96 10/26/17 06:53 100 35 50 10/26/17 04:52 90 34 50 10/26/17 04:00 50 10/26/17 04:00 93 10/26/17 04:00 98.4 89 36 133/75 99 Mechanical Ventilator 50 98.4 10/26/17 02:59 86 36 50 10/26/17 01:51 87 39 50 10/26/17 00:00 98.2 85 39 137/63 99 Mechanical Ventilator 50 98.2 10/26/17 00:00 87 10/25/17 22:51 89 36 50 Height (Feet): 5 Height (Inches): 5.00 Weight (Pounds): 76 HEENT: mucous membranes moist Respiratory/Chest: no respiratory distress Cardiovascular: regularly irregular Abdomen: non distended Laboratory Tests Test 10/26/17 03:00 White Blood Count 15.5 K/UL (4.8-10.8) H Red Blood Count 3.12 M/UL (4.20-5.40) L Hemoglobin 9.7 G/DL (12.0-16.0) #L Hematocrit 28.5 % (37.0-47.0) #L Mean Corpuscular Volume 91 FL (80-99) Mean Corpuscular Hemoglobin 31.0 PG (27.0-31.0) Mean Corpuscular Hemoglobin Concent 34.0 G/DL (32.0-36.0) Red Cell Distribution Width 16.5 % (11.6-14.8) H Platelet Count 147 K/UL (150-450) L Mean Platelet Volume 8.3 FL (6.5-10.1) Neutrophils (%) (Auto) 79.8 % (45.0-75.0) H Lymphocytes (%) (Auto) 9.1 % (20.0-45.0) L Monocytes (%) (Auto) 8.4 % (1.0-10.0) Eosinophils (%) (Auto) 1.4 % (0.0-3.0) Basophils (%) (Auto) 1.2 % (0.0-2.0) Erythrocyte Sedimentation Rate 121 MM/HR (0-30) H Sodium Level 142 MMOL/L (136-145) Potassium Level 4.0 MMOL/L (3.5-5.1) Chloride Level 108 MMOL/L (98-107) H Carbon Dioxide Level 25 MMOL/L (21-32) Anion Gap 9 mmol/L (5-15) Blood Urea Nitrogen 23 mg/dL (7-18) H Creatinine 0.6 MG/DL (0.55-1.30) Estimat Glomerular Filtration Rate mL/min (>60) Glucose Level 122 MG/DL (74-106) H Calcium Level 7.9 MG/DL (8.5-10.1) L Phosphorus Level 1.9 MG/DL (2.5-4.9) L Magnesium Level 2.5 MG/DL (1.8-2.4) H Total Bilirubin 8.4 MG/DL (0.2-1.0) H Direct Bilirubin 7.1 MG/DL (0.0-0.3) H Aspartate Amino Transf (AST/SGOT) 255 U/L (15-37) H Alanine Aminotransferase (ALT/SGPT) 379 U/L (12-78) H Alkaline Phosphatase 2283 U/L (46-116) H C-Reactive Protein, Quantitative 22.7 mg/dL (0.00-0.90) H Total Protein 6.3 G/DL (6.4-8.2) L Albumin 1.7 G/DL (3.4-5.0) L Globulin 4.6 g/dL Albumin/Globulin Ratio 0.4 (1.0-2.7) L Amylase Level 29 U/L (25-115) Lipase 46 U/L (73-393) L Current Medications Medications (Trade) Dose Ordered Sig/Hermes Route PRN Reason Start Time Stop Time Status Last Admin Dose Admin Acetaminophen (Tylenol) 650 mg Q6H PRN NG Pain Scale (3-5) 10/25/17 14:45 11/24/17 14:44 10/25/17 14:45 Clotrimazole (Lotrimin) 1 applic EVERY 12 HOURS TOPIC 10/14/17 21:00 11/09/17 22:59 10/26/17 08:58 Dextrose (Dextrose 50%) 25 ml STAT PRN IV Hypoglycemia 10/18/17 08:30 11/17/17 08:29 Dextrose (Dextrose 50%) 50 ml STAT PRN IV Hypoglycemia 10/18/17 08:30 11/17/17 08:29 Dextrose/Sodium Chloride 1,000 ml @ 75 mls/hr [id number] IV 10/24/17 11:30 11/23/17 11:29 10/26/17 17:40 Diltiazem HCl (Cardizem) 30 mg BID NG 10/14/17 18:00 11/10/17 08:59 10/26/17 17:40 Insulin Aspart (NovoLOG) Q6HR SUBQ 10/18/17 12:00 11/17/17 11:59 10/26/17 17:42 Sodium Phosphate 15 mm/Sodium Chloride 280 ml @ 70.273 mls/ hr ONCE ONCE IVPB 10/26/17 17:30 4/15/18 21:29 10/26/17 17:40 Edis Hunter MD Oct 26, 2017 21:07
[2017-10-26] MEDS: Meropenem 1 GM in NS 55 ML IVPB SCH (22:07)
[2017-10-26] MEDS ORDERED: NS 275ml ONE (22:43)
[2017-10-27] VITALS: BP 126/72
[2017-10-27] MEDS: NovoLOG Insulin Flexpen SUBQ SCH ×4 (00:07→17:24)
--- NOTE | 2017-10-27 00:30 | General Progress Note ---
Assessment/Plan Assessment/Plan #. Anemia due to underlying chronic disease. Continue to closely monitor. --> Hemoglobin goal is above 7. --> S/P blood transfusion. No adverse events. Transfuse if hemoglobin below goal. --> Occult blood detected. Consider GI recs. --> Transfuse as necessary #. Sepsis. --> Leukocytosis likely related to underlying pneumonia infection. --> Wbc count elevated. Improved and downtrended. --> On Iv antibiotics. Monitor for improvement. #. Coagulopathy - potentially related to DIC early onset, review hapto, inr repeat, fibrinogen, DIC panel --> S/P FFP and Vit K --> DW pulm Dr. Parekh --> Likely related to infection versus other cause. On antibiotics. --> Prophylaxis. #. Pancytopenia --> WBC count and platelet counts are within normal levels now. --> Hemoglobin levels downtrended. Transfuse if continues to drop. --> S/P Platelet transfusion --> Monitor and trend cbc daily. #. Thrombocytopenia, severe and progressive, acute onset, likely secondary to underlying infection, aspiration, hit was negative --> Duplex of the lower extremities is negative, therefore less likely HIT and other causes are more likely such as underlying infection. --> Platelets goal >20k, transfuse if necessary. --> On antibiotics as per ID --> Platelet count has been downtrending, monitor closely. #. Respiratory failure, vent dependent --> acute respiratory distress syndrome. --> S/P tracheostomy. Cont vent per pulmonary. #. Community-acquired pneumonia versus hospital-acquired. --> The patient on broad-spectrum antibiotics. --> Improved. --> Urine culture growing E. coli. Continue to closely monitor. #. Transaminitis. She has been seen by GI Service. Continue to closely monitor. #. Low-grade fever. Closely observe. #. Encephalopathy. Parkinson's Disease. #. Diabetes mellitus II. #. Tube feeding. #. Hypertension. --> BP currently normal Covering for Dr. Johnny Sinha Subjective Date patient seen: Oct 26, 2017 Constitutional: Denies: no symptoms, chills, diaphoresis, fever, malaise, weakness, other HEENT: Denies: no symptoms, eye pain, blurred vision, tearing, double vision, ear pain, ear discharge, nose pain, nose congestion, throat pain, throat swelling, mouth pain, mouth swelling, other Cardiovascular: Denies: no symptoms, chest pain, edema, irregular heart rate, lightheadedness, palpitations, syncope, other Respiratory: Denies: no symptoms, cough, orthopnea, shortness of breath, SOB with excertion, SOB at rest, sputum, stridor, wheezing, other Gastrointestinal/Abdominal: Denies: no symptoms, abdomen distended, abdominal pain, black stools, tarry stools, blood in stool, constipated, diarrhea, difficulty swallowing, nausea, poor appetite, poor fluid intake, rectal bleeding , vomiting, other Genitourinary: Denies: no symptoms, burning, discharge, frequency, flank pain, hematuria, incontinence, pain, urgency, other 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: Denies: no symptoms, anxiety, depressed, emotional problems, headache, numbness, paresthesia, pre-existing deficit, seizure, tingling, tremors, weakness, other Endocrine: Denies: no symptoms, excessive sweating, flushing, intolerance to cold, intolerance to heat, increased hunger, increased thirst, increased urine, unexplained weight gain, unexplained weight loss, other Allergies: Coded Allergies: No Known Allergies (Verified , 11/18/08) Subjective Confused. S/P blood transfusion. On vent. Objective Last 24 Hour Vital Signs Date Time Temp Pulse Resp B/P (MAP) Pulse Ox O2 Delivery O2 Flow Rate FiO2 10/26/17 22:49 70 23 50 10/26/17 21:30 78 28 50 10/26/17 21:00 98.2 84 30 135/65 100 Mechanical Ventilator 50 98.2 10/26/17 20:00 50 10/26/17 20:00 91 10/26/17 19:17 93 32 50 10/26/17 17:40 90 152/74 10/26/17 17:10 90 31 50 10/26/17 16:00 50 10/26/17 16:00 90 10/26/17 16:00 98.4 86 32 134/70 100 Mechanical Ventilator 50 98.4 10/26/17 14:56 89 28 50 10/26/17 12:41 91 29 50 10/26/17 12:00 98.3 94 32 152/74 100 Mechanical Ventilator 50 98.3 10/26/17 12:00 94 4/15/18 12:00 50 10/26/17 10:48 104 34 50 10/26/17 08:58 102 148/73 10/26/17 08:52 102 31 50 10/26/17 08:00 50 10/26/17 08:00 98.2 92 27 148/73 100 Mechanical Ventilator 50 98.2 10/26/17 08:00 96 10/26/17 06:53 100 35 50 10/26/17 04:52 90 34 50 10/26/17 04:00 50 10/26/17 04:00 93 10/26/17 04:00 98.4 89 36 133/75 99 Mechanical Ventilator 50 98.4 10/26/17 02:59 86 36 50 10/26/17 01:51 87 39 50 Intake and Output 10/26/17 10/27/17 19:00 07:00 Intake Total 1491.273 ml 356.546 ml Output Total 400 ml Balance 1091.273 ml 356.546 ml Free Water 150 ml IV Total 895.273 ml 290.546 ml Tube Feeding 396 ml 66 ml Other 50 ml Output Urine Total 400 ml # Bowel Movements 4 Laboratory Tests 10/26/17 03:00: White Blood Count 15.5H, Red Blood Count 3.12L, Hemoglobin 9.7#L, Hematocrit 28.5#L, Mean Corpuscular Volume 91, Mean Corpuscular Hemoglobin 31.0, Mean Corpuscular Hemoglobin Concent 34.0, Red Cell Distribution Width 16.5H, Platelet Count 147L, Mean Platelet Volume 8.3, Neutrophils (%) (Auto) 79.8H, Lymphocytes (%) (Auto) 9.1L, Monocytes (%) (Auto) 8.4, Eosinophils (%) (Auto) 1.4, Basophils (%) (Auto) 1.2, Erythrocyte Sedimentation Rate 121H, Sodium Level 142, Potassium Level 4.0, Chloride Level 108H, Carbon Dioxide Level 25, Anion Gap 9, Blood Urea Nitrogen 23H, Creatinine 0.6, Estimat Glomerular Filtration Rate , Glucose Level 122H, Calcium Level 7.9L, Phosphorus Level 1.9L , Magnesium Level 2.5H, Total Bilirubin 8.4H, Direct Bilirubin 7.1H, Aspartate Amino Transf (AST/SGOT) 255H, Alanine Aminotransferase (ALT/SGPT) 379H, Alkaline Phosphatase 2283H, C-Reactive Protein, Quantitative 22.7H, Total Protein 6.3L, Albumin 1.7L, Globulin 4.6, Albumin/Globulin Ratio 0.4L, Amylase Level 29, Lipase 46L Height (Feet): 5 Height (Inches): 5.00 Weight (Pounds): 76 General Appearance: confused EENT: normal ENT inspection Neck: normal alignment Respiratory/Chest: decreased breath sounds Abdomen: soft JOHN SINHA Oct 27, 2017 00:30
[2017-10-27 03:25] LABS: BASOPHILS % (AUTO) 1.2 % (0.0-2.0); EOSINOPHILS % (AUTO) 3.2 % (0.0-3.0); HEMATOCRIT 26.5 % (37.0-47.0); HEMOGLOBIN 9.1 G/DL (12.0-16.0); LYMPHOCYTES % (AUTO) 13.2 % (20.0-45.0); MEAN CORPUSCULAR VOLUME 91 FL (80-99); MONOCYTES % (AUTO) 7.4 % (1.0-10.0); NEUTROPHILS % (AUTO) 75.1 % (45.0-75.0); PLATELET COUNT 157 K/UL (150-450); RED BLOOD COUNT 2.92 M/UL (4.20-5.40); RED CELL DISTRIBUTION WIDTH 17.5 % (11.6-14.8); WHITE BLOOD COUNT 11.8 K/UL (4.8-10.8)
[2017-10-27 03:47] LABS: ALANINE AMINOTRANSFERASE 252 U/L (12-78); ALBUMIN 1.6 G/DL (3.4-5.0); ALBUMIN/GLOBULIN RATIO 0.3 (1.0-2.7); ALKALINE PHOSPHATASE 2067 U/L (46-116); ANION GAP 6 mmol/L (5-15); ASPARTATE AMINO TRANSFERASE 140 U/L (15-37); BILIRUBIN,TOTAL 5.8 MG/DL (0.2-1.0); BLOOD UREA NITROGEN 23 mg/dL (7-18); CALCIUM 8.1 MG/DL (8.5-10.1); CARBON DIOXIDE 25 MMOL/L (21-32); CHLORIDE 107 MMOL/L (98-107); CREATININE 0.6 MG/DL (0.55-1.30); POTASSIUM 3.7 MMOL/L (3.5-5.1); SODIUM 138 MMOL/L (136-145)
[2017-10-27 03:53] LABS: BILIRUBIN,DIRECT 4.9 MG/DL (0.0-0.3)
[2017-10-27 04:00] VITALS: BP 132/66
[2017-10-27] MEDS: Meropenem 1 GM in NS 55 ML IVPB SCH ×3 (05:27→21:00)
[2017-10-27] MEDS: D5 1/2NS 1,000 ML IV SCH ×2 (06:09→19:43)
[2017-10-27 08:00] VITALS: BP 142/65
--- NOTE | 2017-10-27 09:29 | Diagnostic Imaging Report ---
Indication: Dyspnea Technique: One view of the chest Comparison: 10/20/2017 Findings: Allowing for exposure differences, extensive bilateral diffuse interstitial and airspace disease is unchanged. There are small bilateral pleural effusions, possibly slightly increased on the right, stable on the left Impression: Suspect slightly increased right pleural fluid, over 7 days Otherwise stable as described
[2017-10-27] MEDS: dilTIAZem HCl 30mg tab NG SCH (09:53)
--- NOTE | 2017-10-27 09:54 | Wound Care Consultation ---
Wound Assessment Wound Assessment : Wound Number: 1 Wound Present on Admission: No New Wound: Yes Status Change of Wound: No Wound Location Body Site: perineal area Wound Type: chemical burn Gray Test: Does not Gray Wound Drainage Amount: None Wound Drainage Odor: None/Absent Tissue Surrounding Wound: Erythemic Wound General Appearance: Reddened Wound Comment #1 Chemical burn on perineal area. #2 Left plantar 1st metatarsal head dry scab Reassessed this Pt no deterioration noted. Will change treatment to Triad cream BID on perineal area for skin barrier. Recommendation -Local wound care per protocol -Keep clean, dry and apply Lotrimin oint on perineal area as ordered -Optimize nutrition -Heel protector on both heels -Offload both heels -Low air loss mattress -Turn and reposition -Assess and f/u accordingly for any changes TANK FRANCES RN Oct 27, 2017 09:54
--- NOTE | 2017-10-27 10:07 | Nephrology Progress Note ---
Assessment/Plan Problem List: (1) ARDS (adult respiratory distress syndrome) (2) Electrolyte imbalance (3) Thrombocytopenia Assessment improving leukocytosis (1) ARDS (adult respiratory distress syndrome) s/p Trach (2) Aspiration pneumonia (3) Protein-calorie malnutrition, severe (4) Diabetes mellitus (5) Anemia , aplastic by history (6) DM (7) UTI (8) Electrolyte imbalance (9) HTN (10) Depression (11) RA . Plan stable from renal stand - had trach and PEG water via NGT Adjust BP meds K and Phos supplement as needed Monitor renal parameters and urine output avoid nephrotoxics per orders discussed with RN Left ventricular ejection fraction estimated to be 55 %. Subjective ROS Limited/Unobtainable: Yes Objective Objective Last 24 Hour Vital Signs Date Time Temp Pulse Resp B/P (MAP) Pulse Ox O2 Delivery O2 Flow Rate FiO2 10/27/17 09:53 86 142/65 10/27/17 09:22 86 33 50 10/27/17 08:00 50 10/27/17 08:00 97.5 79 26 142/65 100 Mechanical Ventilator 50 97.5 10/27/17 07:35 75 10/27/17 07:04 73 29 50 10/27/17 05:20 78 24 50 10/27/17 04:00 83 10/27/17 04:00 98.5 74 27 132/66 100 Mechanical Ventilator 50 98.5 10/27/17 04:00 50 10/27/17 02:58 67 21 50 10/27/17 00:52 71 25 50 10/27/17 00:00 76 10/27/17 00:00 97.5 75 26 126/72 100 Mechanical Ventilator 50 97.5 10/27/17 00:00 50 10/26/17 22:49 70 23 50 10/26/17 21:30 78 28 50 10/26/17 21:00 98.2 84 30 135/65 100 Mechanical Ventilator 50 98.2 10/26/17 20:00 50 10/26/17 20:00 91 10/26/17 19:17 93 32 50 10/26/17 17:40 90 152/74 10/26/17 17:10 90 31 50 10/26/17 16:00 50 10/26/17 16:00 90 10/26/17 16:00 98.4 86 32 134/70 100 Mechanical Ventilator 50 98.4 10/26/17 14:56 89 28 50 10/26/17 12:41 91 29 50 10/26/17 12:00 98.3 94 32 152/74 100 Mechanical Ventilator 50 98.3 10/26/17 12:00 94 10/26/17 12:00 50 10/26/17 10:48 104 34 50 Intake and Output 10/26/17 10/27/17 19:00 07:00 Intake Total 1491.273 ml 1756.546 ml Output Total 400 ml 300 ml Balance 1091.273 ml 1456.546 ml Free Water 150 ml IV Total 895.273 ml 1260.546 ml Tube Feeding 396 ml 396 ml Other 50 ml 100 ml Output Urine Total 400 ml 300 ml # Bowel Movements 4 1 Laboratory Tests 10/27/17 02:45: White Blood Count 11.8H, Red Blood Count 2.92L, Hemoglobin 9.1L, Hematocrit 26.5L, Mean Corpuscular Volume 91, Mean Corpuscular Hemoglobin 31.3H, Mean Corpuscular Hemoglobin Concent 34.4, Red Cell Distribution Width 17.5H, Platelet Count 157, Mean Platelet Volume 7.9, Neutrophils (%) (Auto) 75.1H, Lymphocytes (%) (Auto) 13.2L, Monocytes (%) (Auto) 7.4, Eosinophils (%) (Auto) 3.2H, Basophils (%) (Auto) 1.2, Prothrombin Time 10.0, Prothromb Time International Ratio 1.0, Activated Partial Thromboplast Time 28, Sodium Level 138, Potassium Level 3.7, Chloride Level 107, Carbon Dioxide Level 25, Anion Gap 6, Blood Urea Nitrogen 23H, Creatinine 0.6, Estimat Glomerular Filtration Rate , Glucose Level 109H, Calcium Level 8.1L, Phosphorus Level 3.0, Magnesium Level 2.1, Total Bilirubin 5.8H, Direct Bilirubin 4.9H, Aspartate Amino Transf ( AST/SGOT) 140H, Alanine Aminotransferase (ALT/SGPT) 252H, Alkaline Phosphatase 2067H, Total Protein 6.5, Albumin 1.6L, Globulin 4.9, Albumin/Globulin Ratio 0.3L Height (Feet): 5 Height (Inches): 5.00 Weight (Pounds): 74 General Appearance: no apparent distress Respiratory/Chest: decreased breath sounds Abdomen: distended Objective no change YAEL HANSEN Oct 27, 2017 10:07
[2017-10-27] MEDS ORDERED: NS 275ml ONE (10:40)
[2017-10-27] MEDS ORDERED: D5 1/2NS 1000ml IV ONE (10:40)
[2017-10-27] MEDS ORDERED: Tubing IV Secondary IV ONE (10:40)
--- NOTE | 2017-10-27 11:04 | Pulmonology Progress Note ---
Assessment/Plan Problems: (1) ARDS (adult respiratory distress syndrome) (2) Sepsis (3) Coagulopathy (4) Aspiration pneumonia (5) Cholangitis (6) Diabetes mellitus, type II (7) Protein-calorie malnutrition, severe (8) Parkinsons disease Assessment/Plan bilirubin declined to 5 liver enzymes slightly less still on fio2 of 50% tolerating feeding titrate vent settings accordingly abx as per ID dvt prophylaxis cxr reviewed: no chage, extensive interstitial infiltrate. Subjective ROS Limited/Unobtainable: No Constitutional: Reports: no symptoms HEENT: Repors: no symptoms Allergies: Coded Allergies: No Known Allergies (Verified , 11/18/08) Objective Last 24 Hour Vital Signs Date Time Temp Pulse Resp B/P (MAP) Pulse Ox O2 Delivery O2 Flow Rate FiO2 10/27/17 09:53 86 142/65 10/27/17 09:22 86 33 50 10/27/17 08:00 50 10/27/17 08:00 97.5 79 26 142/65 100 Mechanical Ventilator 50 97.5 10/27/17 07:35 75 10/27/17 07:04 73 29 50 10/27/17 05:20 78 24 50 10/27/17 04:00 83 10/27/17 04:00 98.5 74 27 132/66 100 Mechanical Ventilator 50 98.5 10/27/17 04:00 50 10/27/17 02:58 67 21 50 10/27/17 00:52 71 25 50 10/27/17 00:00 76 10/27/17 00:00 97.5 75 26 126/72 100 Mechanical Ventilator 50 97.5 10/27/17 00:00 50 10/26/17 22:49 70 23 50 10/26/17 21:30 78 28 50 10/26/17 21:00 98.2 84 30 135/65 100 Mechanical Ventilator 50 98.2 10/26/17 20:00 50 10/26/17 20:00 91 10/26/17 19:17 93 32 50 10/26/17 17:40 90 152/74 10/26/17 17:10 90 31 50 10/26/17 16:00 50 10/26/17 16:00 90 10/26/17 16:00 98.4 86 32 134/70 100 Mechanical Ventilator 50 98.4 10/26/17 14:56 89 28 50 10/26/17 12:41 91 29 50 10/26/17 12:00 98.3 94 32 152/74 100 Mechanical Ventilator 50 98.3 10/26/17 12:00 94 10/26/17 12:00 50 Intake and Output 10/26/17 10/27/17 19:00 07:00 Intake Total 1491.273 ml 1756.546 ml Output Total 400 ml 300 ml Balance 1091.273 ml 1456.546 ml Free Water 150 ml IV Total 895.273 ml 1260.546 ml Tube Feeding 396 ml 396 ml Other 50 ml 100 ml Output Urine Total 400 ml 300 ml # Bowel Movements 4 1 General Appearance: WD/WN HEENT: normocephalic, atraumatic, status post trach Respiratory/Chest: chest wall non-tender, crackles/rales, rhonchi Cardiovascular: normal peripheral pulses, normal rate Abdomen: normal bowel sounds, soft, non tender, no scars Extremities: no cyanosis 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, no motor/sensory deficits Lymphatic: no neck adenopathy Laboratory Tests 10/27/17 02:45: White Blood Count 11.8H, Red Blood Count 2.92L, Hemoglobin 9.1L, Hematocrit 26.5L, Mean Corpuscular Volume 91, Mean Corpuscular Hemoglobin 31.3H, Mean Corpuscular Hemoglobin Concent 34.4, Red Cell Distribution Width 17.5H, Platelet Count 157, Mean Platelet Volume 7.9, Neutrophils (%) (Auto) 75.1H, Lymphocytes (%) (Auto) 13.2L, Monocytes (%) (Auto) 7.4, Eosinophils (%) (Auto) 3.2H, Basophils (%) (Auto) 1.2, Prothrombin Time 10.0, Prothromb Time International Ratio 1.0, Activated Partial Thromboplast Time 28, Sodium Level 138, Potassium Level 3.7, Chloride Level 107, Carbon Dioxide Level 25, Anion Gap 6, Blood Urea Nitrogen 23H, Creatinine 0.6, Estimat Glomerular Filtration Rate , Glucose Level 109H, Calcium Level 8.1L, Phosphorus Level 3.0, Magnesium Level 2.1, Total Bilirubin 5.8H, Direct Bilirubin 4.9H, Aspartate Amino Transf ( AST/SGOT) 140H, Alanine Aminotransferase (ALT/SGPT) 252H, Alkaline Phosphatase 2067H, Total Protein 6.5, Albumin 1.6L, Globulin 4.9, Albumin/Globulin Ratio 0.3L Current Medications Medications (Trade) Dose Ordered Sig/Hermes Route PRN Reason Start Time Stop Time Status Last Admin Dose Admin Acetaminophen (Tylenol) 650 mg Q6H PRN NG Pain Scale (3-5) 10/25/17 14:45 11/24/17 14:44 10/25/17 14:45 Clotrimazole (Lotrimin) 1 applic EVERY 12 HOURS TOPIC 10/14/17 21:00 11/09/17 22:59 10/27/17 09:53 Dextrose (Dextrose 50%) 25 ml STAT PRN IV Hypoglycemia 10/18/17 08:30 11/17/17 08:29 Dextrose (Dextrose 50%) 50 ml STAT PRN IV Hypoglycemia 10/18/17 08:30 11/17/17 08:29 Dextrose/Sodium Chloride 1,000 ml @ 75 mls/hr [id number] IV 10/24/17 11:30 11/23/17 11:29 10/27/17 06:09 Diltiazem HCl (Cardizem) 30 mg BID NG 10/14/17 18:00 11/10/17 08:59 10/27/17 09:53 Insulin Aspart (NovoLOG) Q6HR SUBQ 10/18/17 12:00 11/17/17 11:59 10/27/17 05:29 Meropenem 1 gm/ Sodium Chloride 55 ml @ 110 mls/hr Q8HR IVPB 10/26/17 22:00 10/31/17 21:59 10/27/17 05:27 Tayler Liu MD Oct 27, 2017 11:04
[2017-10-27 12:00] VITALS: BP 133/67
--- NOTE | 2017-10-27 13:37 | Cardiac Electrophysiology PN ---
Assessment/Plan Assessment/Plan 1. Vent dependent Respiratory failure S/P Tracheostomy Ruled out for myocardial infarction. 2. Left bundle-branch block. No evidence of more advanced heart block. 3. HTN and diastolic dysfunction. Echo EF 55% On Cardizem 30 BID 4. Hypernatremia and Azotemia. F/U per Dr. Mayer 5. Pneumonia and sepsis on IV antibiotics by Dr. Hunter. WBC down to 9K 6. Psychiatric disorder. 7. Anasarca. 3rd spacing. 8. Anemia with Hb 6.6 s/p PRBC. CT chest abdomen and pelvis without contrast no acute finding S/P EGD by Dr Walton. S/P PEG 10/16/17 9. Severe thrombocytopenia. S/P platelet transfusion 10. Abnormal LFT, Biliary obstruction, possible cholangitis. S/P ERCP. CBD sludge. S/P repeat ERCP and stent by Dr. Walton Bilirubin 6.8 and Alk Phos more than 2400s S/P Repeat ERCP 10/22/[address] Walton 11. High INR likely due to hepatic failure. S/P FFP and Vit K. INR [address] Walton Subjective Subjective No SVT or VT.Sinus tach betetr after transfusion. Objective Last 24 Hour Vital Signs Date Time Temp Pulse Resp B/P (MAP) Pulse Ox O2 Delivery O2 Flow Rate FiO2 10/27/17 12:00 40 10/27/17 12:00 98.1 79 30 133/67 99 Mechanical Ventilator 40 98.1 10/27/17 11:44 82 10/27/17 11:08 82 35 50 10/27/17 09:53 86 142/65 10/27/17 09:22 86 33 50 10/27/17 08:00 50 10/27/17 08:00 97.5 79 26 142/65 100 Mechanical Ventilator 50 97.5 10/27/17 07:35 75 10/27/17 07:04 73 29 50 10/27/17 05:20 78 24 50 10/27/17 04:00 83 10/27/17 04:00 98.5 74 27 132/66 100 Mechanical Ventilator 50 98.5 10/27/17 04:00 50 10/27/17 02:58 67 21 50 10/27/17 00:52 71 25 50 10/27/17 00:00 76 10/27/17 00:00 97.5 75 26 126/72 100 Mechanical Ventilator 50 97.5 10/27/17 00:00 50 10/26/17 22:49 70 23 50 10/26/17 21:30 78 28 50 10/26/17 21:00 98.2 84 30 135/65 100 Mechanical Ventilator 50 98.2 10/26/17 20:00 50 10/26/17 20:00 91 10/26/17 19:17 93 32 50 10/26/17 17:40 90 152/74 10/26/17 17:10 90 31 50 10/26/17 16:00 50 10/26/17 16:00 90 10/26/17 16:00 98.4 86 32 134/70 100 Mechanical Ventilator 50 98.4 10/26/17 14:56 89 28 50 Intake and Output 10/26/17 10/27/17 19:00 07:00 Intake Total 1491.273 ml 1756.546 ml Output Total 400 ml 300 ml Balance 1091.273 ml 1456.546 ml Free Water 150 ml IV Total 895.273 ml 1260.546 ml Tube Feeding 396 ml 396 ml Other 50 ml 100 ml Output Urine Total 400 ml 300 ml # Bowel Movements 4 1 Laboratory Tests Test 10/27/17 02:45 White Blood Count 11.8 K/UL (4.8-10.8) H Red Blood Count 2.92 M/UL (4.20-5.40) L Hemoglobin 9.1 G/DL (12.0-16.0) L Hematocrit 26.5 % (37.0-47.0) L Mean Corpuscular Volume 91 FL (80-99) Mean Corpuscular Hemoglobin 31.3 PG (27.0-31.0) H Mean Corpuscular Hemoglobin Concent 34.4 G/DL (32.0-36.0) Red Cell Distribution Width 17.5 % (11.6-14.8) H Platelet Count 157 K/UL (150-450) Mean Platelet Volume 7.9 FL (6.5-10.1) Neutrophils (%) (Auto) 75.1 % (45.0-75.0) H Lymphocytes (%) (Auto) 13.2 % (20.0-45.0) L Monocytes (%) (Auto) 7.4 % (1.0-10.0) Eosinophils (%) (Auto) 3.2 % (0.0-3.0) H Basophils (%) (Auto) 1.2 % (0.0-2.0) Prothrombin Time 10.0 SEC (9.30-11.50) Prothromb Time International Ratio 1.0 (0.9-1.1) Activated Partial Thromboplast Time 28 SEC (23-33) Sodium Level 138 MMOL/L (136-145) Potassium Level 3.7 MMOL/L (3.5-5.1) Chloride Level 107 MMOL/L (98-107) Carbon Dioxide Level 25 MMOL/L (21-32) Anion Gap 6 mmol/L (5-15) Blood Urea Nitrogen 23 mg/dL (7-18) H Creatinine 0.6 MG/DL (0.55-1.30) Estimat Glomerular Filtration Rate mL/min (>60) Glucose Level 109 MG/DL (74-106) H Calcium Level 8.1 MG/DL (8.5-10.1) L Phosphorus Level 3.0 MG/DL (2.5-4.9) Magnesium Level 2.1 MG/DL (1.8-2.4) Total Bilirubin 5.8 MG/DL (0.2-1.0) H Direct Bilirubin 4.9 MG/DL (0.0-0.3) H Aspartate Amino Transf (AST/SGOT) 140 U/L (15-37) H Alanine Aminotransferase (ALT/SGPT) 252 U/L (12-78) H Alkaline Phosphatase 2067 U/L (46-116) H Total Protein 6.5 G/DL (6.4-8.2) Albumin 1.6 G/DL (3.4-5.0) L Globulin 4.9 g/dL Albumin/Globulin Ratio 0.3 (1.0-2.7) L Objective HEAD AND NECK: Tracheostomy in place LUNGS: Coarse rhonchi bilaterally CARDIOVASCULAR: Tachy S1 and S2.No murmur ABDOMEN: Soft.PEG in place EXTREMITIES: No edema. Charlie Darnell MD Oct 27, 2017 13:37
--- NOTE | 2017-10-27 13:37 | Internal Med Progress Note ---
Subjective Date of Service: Oct 27, 2017 Physician Name Sina Bowens Attending Physician Jesus Barahona MD Current Medications Medications (Trade) Dose Ordered Sig/Hermes Route PRN Reason Start Time Stop Time Status Last Admin Dose Admin Acetaminophen (Tylenol) 650 mg Q6H PRN NG Pain Scale (3-5) 10/25/17 14:45 11/24/17 14:44 10/25/17 14:45 Clotrimazole (Lotrimin) 1 applic EVERY 12 HOURS TOPIC 10/14/17 21:00 11/09/17 22:59 10/27/17 09:53 Dextrose (Dextrose 50%) 25 ml STAT PRN IV Hypoglycemia 10/18/17 08:30 11/17/17 08:29 Dextrose (Dextrose 50%) 50 ml STAT PRN IV Hypoglycemia 10/18/17 08:30 11/17/17 08:29 Dextrose/Sodium Chloride 1,000 ml @ 75 mls/hr [id number] IV 10/24/17 11:30 11/23/17 11:29 10/27/17 06:09 Diltiazem HCl (Cardizem) 30 mg BID NG 10/14/17 18:00 11/10/17 08:59 10/27/17 09:53 Insulin Aspart (NovoLOG) Q6HR SUBQ 10/18/17 12:00 11/17/17 11:59 10/27/17 13:23 Meropenem 1 gm/ Sodium Chloride 55 ml @ 110 mls/hr Q8HR IVPB 10/26/17 22:00 10/31/17 21:59 10/27/17 13:09 Allergies: Coded Allergies: No Known Allergies (Verified , 11/18/08) ROS Limited/Unobtainable: Yes Subjective 76 YO F admitted with Shortness of breath, now respiratory failure. Intubated and sedated. Cover for Internal Med-Dr. Barahona. RAJINDER . S/P ERCP 10/08/17. S/P Tracheostomy and bronchoscopy 10/13/17. More alert today. Await transfer to [place] subacute vs [place] Objective Last Vital Signs Date Time Temp Pulse Resp B/P (MAP) Pulse Ox O2 Delivery O2 Flow Rate FiO2 10/27/17 12:00 40 10/27/17 12:00 98.1 79 30 133/67 99 Mechanical Ventilator 98.1 Laboratory Tests Test 10/27/17 02:45 White Blood Count 11.8 K/UL (4.8-10.8) H Red Blood Count 2.92 M/UL (4.20-5.40) L Hemoglobin 9.1 G/DL (12.0-16.0) L Hematocrit 26.5 % (37.0-47.0) L Mean Corpuscular Volume 91 FL (80-99) Mean Corpuscular Hemoglobin 31.3 PG (27.0-31.0) H Mean Corpuscular Hemoglobin Concent 34.4 G/DL (32.0-36.0) Red Cell Distribution Width 17.5 % (11.6-14.8) H Platelet Count 157 K/UL (150-450) Mean Platelet Volume 7.9 FL (6.5-10.1) Neutrophils (%) (Auto) 75.1 % (45.0-75.0) H Lymphocytes (%) (Auto) 13.2 % (20.0-45.0) L Monocytes (%) (Auto) 7.4 % (1.0-10.0) Eosinophils (%) (Auto) 3.2 % (0.0-3.0) H Basophils (%) (Auto) 1.2 % (0.0-2.0) Prothrombin Time 10.0 SEC (9.30-11.50) Prothromb Time International Ratio 1.0 (0.9-1.1) Activated Partial Thromboplast Time 28 SEC (23-33) Sodium Level 138 MMOL/L (136-145) Potassium Level 3.7 MMOL/L (3.5-5.1) Chloride Level 107 MMOL/L (98-107) Carbon Dioxide Level 25 MMOL/L (21-32) Anion Gap 6 mmol/L (5-15) Blood Urea Nitrogen 23 mg/dL (7-18) H Creatinine 0.6 MG/DL (0.55-1.30) Estimat Glomerular Filtration Rate mL/min (>60) Glucose Level 109 MG/DL (74-106) H Calcium Level 8.1 MG/DL (8.5-10.1) L Phosphorus Level 3.0 MG/DL (2.5-4.9) Magnesium Level 2.1 MG/DL (1.8-2.4) Total Bilirubin 5.8 MG/DL (0.2-1.0) H Direct Bilirubin 4.9 MG/DL (0.0-0.3) H Aspartate Amino Transf (AST/SGOT) 140 U/L (15-37) H Alanine Aminotransferase (ALT/SGPT) 252 U/L (12-78) H Alkaline Phosphatase 2067 U/L (46-116) H Total Protein 6.5 G/DL (6.4-8.2) Albumin 1.6 G/DL (3.4-5.0) L Globulin 4.9 g/dL Albumin/Globulin Ratio 0.3 (1.0-2.7) L Intake and Output 10/26/17 10/27/17 19:00 07:00 Intake Total 1491.273 ml 1756.546 ml Output Total 400 ml 300 ml Balance 1091.273 ml 1456.546 ml Free Water 150 ml IV Total 895.273 ml 1260.546 ml Tube Feeding 396 ml 396 ml Other 50 ml 100 ml Output Urine Total 400 ml 300 ml # Bowel Movements 4 1 Objective General Appearance: lethargic, thin EENT: normal ENT inspection Neck: Trach; non-tender, normal alignment, supple Cardiovascular: normal peripheral pulses, normal rate, regular rhythm, no gallop/murmur, no JVD Respiratory/Chest: Mechanical vent; trach; ; respiratory distress, crackles/ rales, rhonchi - bilaterally, expiratory wheezing Abdomen: normal bowel sounds, non tender, soft, no organomegaly, no mass Skin: normal pigmentation, warm/dry Assessment/Plan Problem List: (1) HTN (hypertension) Assessment & Plan: Currently hypotensive. (2) Arthritis, rheumatoid (3) Parkinsons disease (4) Aplastic anemia (5) GERD (gastroesophageal reflux disease) (6) Respiratory failure Assessment & Plan: S/P Tracheostomy and broncholsopy 10/13/17. Cont vent per pulmonary (7) Pneumonia (8) Dyspnea (9) Sepsis Assessment & Plan: Blood culture neg. Continue meropenem and vancomycin per ID (10) ARDS (adult respiratory distress syndrome) Assessment & Plan: See pulmonary note (11) UTI (urinary tract infection) Assessment & Plan: E.Coli. Continue abx per ID (12) Anemia Assessment & Plan: S/P Transfusion 2 units PRBC 10/25/17 (13) Diabetes mellitus, type II Assessment & Plan: Continue novolog sliding scale (14) Leukocytosis Assessment & Plan: Continue meropenem and vancomycin- See ID note. (15) Thrombocytopenia (16) Gallbladder sludge Assessment & Plan: s/P ERCP 10/01, 10/07/17 and 10/08/17 (17) Coagulopathy Assessment & Plan: S/P FFP and Vit K Status: unchanged Assessment/Plan Discharge planning: [place] vs [place] [facility] fac SINA BOWENS Oct 27, 2017 13:37
[2017-10-27 16:00] VITALS: BP 126/63
--- NOTE | 2017-10-27 17:56 | Infectious Diseases Prog Note ---
Assessment/Plan Assessment/Plan The patient is a 76-year-old female w 10/20 BCx : 07/16 CoNS ( m/l Contaminant, no Ctr line ) Fever , SP Leukocytosis, SP Cholangitis, Abnormal liver function tests, ALP>>> AST - improving CT: subcentimeter low-attenuation hepatic lesions are too small to characterize, most likely benign simple cysts or bile hamartomas -SP ERCP 10/22 choledocholithiasis -s/p ERCP 10/08: Intraoperative images demonstrate faint opacification of the common bile duct, and placement of a new plastic endobiliary stent. What may be a previous malpositioned biliary stent is seen to the left of the endoscope -s/p ERCP with stent placement 10/01 -EUS 09/30: 1. Dilated common bile duct with lots of sludge in the distal common bile duct, most probably explanation for abnormal liver function tests. Large ascites Hep panel : neg Community-acquired vs healthcare-associated pneumonia, s/p RX 10/13 SP Fiberoptic bronchoscopy, bronchoalveolar lavage, upper airway endoscopy for percutaneous tracheostomy, bronchoscopy through tracheostomy BAL : Laila an Nl devon , AFB : Neg Viral Cx : NegTD -CT chest 10/07: Extensive diffuse bilateral pulmonary parenchymal disease, slightly worse than on prior exam of 09/23/2017. Main differential considerations include pneumonia, ARDS, pulmonary edema, among multiple other possibilities. Bilateral moderate to large pleural effusions, slightly increased in size from 09/23/2017. Nasogastric and endotracheal tubes in good position. Evidence of generalized anasarca, with diffuse subcutaneous soft tissue edema. 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 Depression. Anemia. Rheumatoid arthritis. History of gastritis. PLAN: Merrem d# 2 / 5-7 ( Empirically ) 10/26 IV Zosyn d # 5 10/24 IV Vanco d# 5 - 10/11 SP Ertapenem #7/7 10/09 SP MIcafungin #10 10/02 SP Amikacin #10 09/30 SP Flagyl #8 09/25 sp Fluconazole #3 (held due to rise ALP) 09/23 SP Meropenem #5, PO Vanco #2 / SP tamiflu #10 -f/u AFB cultures ( BAL) : P Monitor CBC.; Monitor BMP.; Trend LFTs Monitor chest x-ray -GI, heme onc f/u Subjective Allergies: Coded Allergies: No Known Allergies (Verified , 11/18/08) Subjective Afebrile no acute event Objective Vital Signs Last 24 Hour Vital Signs Date Time Temp Pulse Resp B/P (MAP) Pulse Ox O2 Delivery O2 Flow Rate FiO2 10/27/17 16:40 82 30 30 10/27/17 16:00 30 10/27/17 16:00 98.1 87 30 126/63 95 Mechanical Ventilator 30 98.1 10/27/17 15:33 85 10/27/17 15:03 84 30 30 10/27/17 15:00 30 10/27/17 13:05 82 30 40 10/27/17 12:00 40 10/27/17 12:00 98.1 79 30 133/67 99 Mechanical Ventilator 40 98.1 10/27/17 11:44 82 10/27/17 11:08 82 35 50 10/27/17 09:53 86 142/65 10/27/17 09:22 86 33 50 10/27/17 08:00 50 10/27/17 08:00 97.5 79 26 142/65 100 Mechanical Ventilator 50 97.5 10/27/17 07:35 75 10/27/17 07:04 73 29 50 10/27/17 05:20 78 24 50 10/27/17 04:00 83 10/27/17 04:00 98.5 74 27 132/66 100 Mechanical Ventilator 50 98.5 10/27/17 04:00 50 10/27/17 02:58 67 21 50 10/27/17 00:52 71 25 50 10/27/17 00:00 76 10/27/17 00:00 97.5 75 26 126/72 100 Mechanical Ventilator 50 97.5 10/27/17 00:00 50 10/26/17 22:49 70 23 50 10/26/17 21:30 78 28 50 10/26/17 21:00 98.2 84 30 135/65 100 Mechanical Ventilator 50 98.2 10/26/17 20:00 50 10/26/17 20:00 91 10/26/17 19:17 93 32 50 Height (Feet): 5 Height (Inches): 5.00 Weight (Pounds): 74 HEENT: anicteric Respiratory/Chest: normal breath sounds Cardiovascular: regularly irregular Abdomen: no organomegaly Laboratory Tests Test 10/27/17 02:45 White Blood Count 11.8 K/UL (4.8-10.8) H Red Blood Count 2.92 M/UL (4.20-5.40) L Hemoglobin 9.1 G/DL (12.0-16.0) L Hematocrit 26.5 % (37.0-47.0) L Mean Corpuscular Volume 91 FL (80-99) Mean Corpuscular Hemoglobin 31.3 PG (27.0-31.0) H Mean Corpuscular Hemoglobin Concent 34.4 G/DL (32.0-36.0) Red Cell Distribution Width 17.5 % (11.6-14.8) H Platelet Count 157 K/UL (150-450) Mean Platelet Volume 7.9 FL (6.5-10.1) Neutrophils (%) (Auto) 75.1 % (45.0-75.0) H Lymphocytes (%) (Auto) 13.2 % (20.0-45.0) L Monocytes (%) (Auto) 7.4 % (1.0-10.0) Eosinophils (%) (Auto) 3.2 % (0.0-3.0) H Basophils (%) (Auto) 1.2 % (0.0-2.0) Prothrombin Time 10.0 SEC (9.30-11.50) Prothromb Time International Ratio 1.0 (0.9-1.1) Activated Partial Thromboplast Time 28 SEC (23-33) Sodium Level 138 MMOL/L (136-145) Potassium Level 3.7 MMOL/L (3.5-5.1) Chloride Level 107 MMOL/L (98-107) Carbon Dioxide Level 25 MMOL/L (21-32) Anion Gap 6 mmol/L (5-15) Blood Urea Nitrogen 23 mg/dL (7-18) H Creatinine 0.6 MG/DL (0.55-1.30) Estimat Glomerular Filtration Rate mL/min (>60) Glucose Level 109 MG/DL (74-106) H Calcium Level 8.1 MG/DL (8.5-10.1) L Phosphorus Level 3.0 MG/DL (2.5-4.9) Magnesium Level 2.1 MG/DL (1.8-2.4) Total Bilirubin 5.8 MG/DL (0.2-1.0) H Direct Bilirubin 4.9 MG/DL (0.0-0.3) H Aspartate Amino Transf (AST/SGOT) 140 U/L (15-37) H Alanine Aminotransferase (ALT/SGPT) 252 U/L (12-78) H Alkaline Phosphatase 2067 U/L (46-116) H Total Protein 6.5 G/DL (6.4-8.2) Albumin 1.6 G/DL (3.4-5.0) L Globulin 4.9 g/dL Albumin/Globulin Ratio 0.3 (1.0-2.7) L Current Medications Medications (Trade) Dose Ordered Sig/Hermes Route PRN Reason Start Time Stop Time Status Last Admin Dose Admin Acetaminophen (Tylenol) 650 mg Q6H PRN NG Pain Scale (3-5) 10/25/17 14:45 11/24/17 14:44 10/25/17 14:45 Clotrimazole (Lotrimin) 1 applic EVERY 12 HOURS TOPIC 10/14/17 21:00 11/09/17 22:59 10/27/17 09:53 Dextrose (Dextrose 50%) 25 ml STAT PRN IV Hypoglycemia 10/18/17 08:30 11/17/17 08:29 Dextrose (Dextrose 50%) 50 ml STAT PRN IV Hypoglycemia 10/18/17 08:30 11/17/17 08:29 Dextrose/Sodium Chloride 1,000 ml @ 75 mls/hr [id number] IV 10/24/17 11:30 11/23/17 11:29 10/27/17 06:09 Diltiazem HCl (Cardizem) 30 mg EVERY 12 HOURS GT 10/27/17 21:00 11/10/17 08:59 Insulin Aspart (NovoLOG) Q6HR SUBQ 10/18/17 12:00 11/17/17 11:59 10/27/17 17:24 Meropenem 1 gm/ Sodium Chloride 55 ml @ 110 mls/hr Q12HR IVPB 10/28/17 09:00 11/02/17 08:59 Meropenem 1 gm/ Sodium Chloride 55 ml @ 110 mls/hr Q8HR IVPB 10/26/17 22:00 10/27/17 23:00 10/27/17 13:09 Edis Hunter MD Oct 27, 2017 17:56
[2017-10-27 20:52] VITALS: BP 134/71
[2017-10-27] MEDS: dilTIAZem HCl 30mg tab GT SCH (21:00)
--- NOTE | 2017-10-27 22:10 | General Progress Note ---
Assessment/Plan Assessment/Plan #. Anemia due to underlying chronic disease. Continue to closely monitor. --> Hemoglobin goal is above 7. --> S/P blood transfusion. No adverse events. Transfuse if hemoglobin below goal. --> Occult blood detected. Consider GI recs. --> Transfuse as necessary #. Sepsis. --> Leukocytosis likely related to underlying pneumonia infection. --> Wbc count elevated. Improved and downtrended. --> On Iv antibiotics. Monitor for improvement. #. Coagulopathy - potentially related to DIC early onset, review hapto, inr repeat, fibrinogen, DIC panel --> INR improved --> S/P FFP and Vit K --> DW pulm Dr. Parekh --> Likely related to infection versus other cause. On antibiotics. --> Prophylaxis. #. Pancytopenia --> WBC count and platelet counts are within normal levels now. --> Hemoglobin levels downtrended. Transfuse if continues to drop. --> S/P Platelet transfusion --> Monitor and trend cbc daily. #. Thrombocytopenia, severe and progressive, acute onset, likely secondary to underlying infection, aspiration, hit was negative --> Duplex of the lower extremities is negative, therefore less likely HIT and other causes are more likely such as underlying infection. --> Platelets goal >20k, transfuse if necessary. --> On antibiotics as per ID --> Platelet count has been downtrending, monitor closely. #. Respiratory failure, vent dependent --> acute respiratory distress syndrome. --> S/P tracheostomy. Cont vent per pulmonary. --> ruled out for myocardial infarction #. Community-acquired pneumonia versus hospital-acquired. --> The patient on broad-spectrum antibiotics. --> Improved. --> Urine culture growing E. coli. Continue to closely monitor. #. Transaminitis. She has been seen by GI Service. Continue to closely monitor. #. Low-grade fever. Closely observe. #. Encephalopathy. Parkinson's Disease. #. Diabetes mellitus II. #. Tube feeding. #. Hypertension. --> BP currently normal. On cardizem Covering for Dr. Johnny Sinha Subjective Date patient seen: Oct 27, 2017 Constitutional: Denies: no symptoms, chills, diaphoresis, fever, malaise, weakness, other HEENT: Denies: no symptoms, eye pain, blurred vision, tearing, double vision, ear pain, ear discharge, nose pain, nose congestion, throat pain, throat swelling, mouth pain, mouth swelling, other Cardiovascular: Denies: no symptoms, chest pain, edema, irregular heart rate, lightheadedness, palpitations, syncope, other Respiratory: Denies: no symptoms, cough, orthopnea, shortness of breath, SOB with excertion, SOB at rest, sputum, stridor, wheezing, other Gastrointestinal/Abdominal: Denies: no symptoms, abdomen distended, abdominal pain, black stools, tarry stools, blood in stool, constipated, diarrhea, difficulty swallowing, nausea, poor appetite, poor fluid intake, rectal bleeding , vomiting, other Genitourinary: Denies: no symptoms, burning, discharge, frequency, flank pain, hematuria, incontinence, pain, urgency, other 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: Denies: no symptoms, anxiety, depressed, emotional problems, headache, numbness, paresthesia, pre-existing deficit, seizure, tingling, tremors, weakness, other Hematologic/Lymphatic: Reports: anemia Allergies: Coded Allergies: No Known Allergies (Verified , 11/18/08) Subjective On vent. Feeling better after transfusion. Objective Last 24 Hour Vital Signs Date Time Temp Pulse Resp B/P (MAP) Pulse Ox O2 Delivery O2 Flow Rate FiO2 10/27/17 21:22 82 22 30 10/27/17 21:00 82 134/71 10/27/17 20:52 98.6 82 22 134/71 94 98.6 10/27/17 18:53 81 30 30 10/27/17 16:40 82 30 30 10/27/17 16:00 30 10/27/17 16:00 98.1 87 30 126/63 95 Mechanical Ventilator 30 98.1 10/27/17 15:33 85 10/27/17 15:03 84 30 30 10/27/17 15:00 30 10/27/17 13:05 82 30 40 10/27/17 12:00 40 10/27/17 12:00 98.1 79 30 133/67 99 Mechanical Ventilator 40 98.1 10/27/17 11:44 82 10/27/17 11:08 82 35 50 10/27/17 09:53 86 142/65 4/16/18 09:22 86 33 50 10/27/17 08:00 50 10/27/17 08:00 97.5 79 26 142/65 100 Mechanical Ventilator 50 97.5 10/27/17 07:35 75 10/27/17 07:04 73 29 50 10/27/17 05:20 78 24 50 10/27/17 04:00 83 10/27/17 04:00 98.5 74 27 132/66 100 Mechanical Ventilator 50 98.5 10/27/17 04:00 50 10/27/17 02:58 67 21 50 10/27/17 00:52 71 25 50 10/27/17 00:00 76 10/27/17 00:00 97.5 75 26 126/72 100 Mechanical Ventilator 50 97.5 10/27/17 00:00 50 10/26/17 22:49 70 23 50 Intake and Output 10/26/17 10/27/17 19:00 07:00 Intake Total 1491.273 ml 1756.546 ml Output Total 400 ml 300 ml Balance 1091.273 ml 1456.546 ml Free Water 150 ml IV Total 895.273 ml 1260.546 ml Tube Feeding 396 ml 396 ml Other 50 ml 100 ml Output Urine Total 400 ml 300 ml # Bowel Movements 4 1 Laboratory Tests 10/27/17 02:45: White Blood Count 11.8H, Red Blood Count 2.92L, Hemoglobin 9.1L, Hematocrit 26.5L, Mean Corpuscular Volume 91, Mean Corpuscular Hemoglobin 31.3H, Mean Corpuscular Hemoglobin Concent 34.4, Red Cell Distribution Width 17.5H, Platelet Count 157, Mean Platelet Volume 7.9, Neutrophils (%) (Auto) 75.1H, Lymphocytes (%) (Auto) 13.2L, Monocytes (%) (Auto) 7.4, Eosinophils (%) (Auto) 3.2H, Basophils (%) (Auto) 1.2, Prothrombin Time 10.0, Prothromb Time International Ratio 1.0, Activated Partial Thromboplast Time 28, Sodium Level 138, Potassium Level 3.7, Chloride Level 107, Carbon Dioxide Level 25, Anion Gap 6, Blood Urea Nitrogen 23H, Creatinine 0.6, Estimat Glomerular Filtration Rate , Glucose Level 109H, Calcium Level 8.1L, Phosphorus Level 3.0, Magnesium Level 2.1, Total Bilirubin 5.8H, Direct Bilirubin 4.9H, Aspartate Amino Transf ( AST/SGOT) 140H, Alanine Aminotransferase (ALT/SGPT) 252H, Alkaline Phosphatase 2067H, Total Protein 6.5, Albumin 1.6L, Globulin 4.9, Albumin/Globulin Ratio 0.3L Height (Feet): 5 Height (Inches): 5.00 Weight (Pounds): 74 General Appearance: confused EENT: normal ENT inspection Neck: normal alignment Cardiovascular: normal rate, regular rhythm Respiratory/Chest: respiratory distress Abdomen: non tender, soft JOHN SINHA Oct 27, 2017 22:10
--- NOTE | 2017-10-27 22:27 | General Progress Note ---
Assessment/Plan Assessment/Plan Assessment - Resp failure / ARDS / PNA - s/p trach - Abnormal LFT, now on steady decline - Jaundice - Anemia with OB (+) stools - Malnutrition - s/p PEG - AMS - improved - CMV PCR (+) --> asked pathology to include CMV stains on liver bx Recommendations - follow labs / LFT daily - follow up final liver biopsy results tomorrow afternoon - check Rogers and EBV titers - Minimize medication use, given LFT changes - transfuse PRN - Elevate HOB - Vent care Subjective Allergies: Coded Allergies: No Known Allergies (Verified , 11/18/08) Subjective Above noted d/w pathology - biliary statis seen, final reading pending labs noted - LFT and WBC all improving Objective Last 24 Hour Vital Signs Date Time Temp Pulse Resp B/P (MAP) Pulse Ox O2 Delivery O2 Flow Rate FiO2 10/27/17 21:22 82 22 30 10/27/17 21:00 82 134/71 10/27/17 20:52 98.6 82 22 134/71 94 98.6 10/27/17 18:53 81 30 30 10/27/17 16:40 82 30 30 10/27/17 16:00 30 10/27/17 16:00 98.1 87 30 126/63 95 Mechanical Ventilator 30 98.1 10/27/17 15:33 85 10/27/17 15:03 84 30 30 10/27/17 15:00 30 10/27/17 13:05 82 30 40 10/27/17 12:00 40 10/27/17 12:00 98.1 79 30 133/67 99 Mechanical Ventilator 40 98.1 10/27/17 11:44 82 10/27/17 11:08 82 35 50 10/27/17 09:53 86 142/65 10/27/17 09:22 86 33 50 10/27/17 08:00 50 10/27/17 08:00 97.5 79 26 142/65 100 Mechanical Ventilator 50 97.5 10/27/17 07:35 75 10/27/17 07:04 73 29 50 10/27/17 05:20 78 24 50 10/27/17 04:00 83 10/27/17 04:00 98.5 74 27 132/66 100 Mechanical Ventilator 50 98.5 10/27/17 04:00 50 10/27/17 02:58 67 21 50 4/16/18 00:52 71 25 50 10/27/17 00:00 76 10/27/17 00:00 97.5 75 26 126/72 100 Mechanical Ventilator 50 97.5 10/27/17 00:00 50 10/26/17 22:49 70 23 50 Intake and Output 10/26/17 10/27/17 19:00 07:00 Intake Total 1491.273 ml 1756.546 ml Output Total 400 ml 300 ml Balance 1091.273 ml 1456.546 ml Free Water 150 ml IV Total 895.273 ml 1260.546 ml Tube Feeding 396 ml 396 ml Other 50 ml 100 ml Output Urine Total 400 ml 300 ml # Bowel Movements 4 1 Laboratory Tests 10/27/17 02:45: White Blood Count 11.8H, Red Blood Count 2.92L, Hemoglobin 9.1L, Hematocrit 26.5L, Mean Corpuscular Volume 91, Mean Corpuscular Hemoglobin 31.3H, Mean Corpuscular Hemoglobin Concent 34.4, Red Cell Distribution Width 17.5H, Platelet Count 157, Mean Platelet Volume 7.9, Neutrophils (%) (Auto) 75.1H, Lymphocytes (%) (Auto) 13.2L, Monocytes (%) (Auto) 7.4, Eosinophils (%) (Auto) 3.2H, Basophils (%) (Auto) 1.2, Prothrombin Time 10.0, Prothromb Time International Ratio 1.0, Activated Partial Thromboplast Time 28, Sodium Level 138, Potassium Level 3.7, Chloride Level 107, Carbon Dioxide Level 25, Anion Gap 6, Blood Urea Nitrogen 23H, Creatinine 0.6, Estimat Glomerular Filtration Rate , Glucose Level 109H, Calcium Level 8.1L, Phosphorus Level 3.0, Magnesium Level 2.1, Total Bilirubin 5.8H, Direct Bilirubin 4.9H, Aspartate Amino Transf ( AST/SGOT) 140H, Alanine Aminotransferase (ALT/SGPT) 252H, Alkaline Phosphatase 2067H, Total Protein 6.5, Albumin 1.6L, Globulin 4.9, Albumin/Globulin Ratio 0.3L Height (Feet): 5 Height (Inches): 5.00 Weight (Pounds): 74 Objective WDWN NCAT supple, (+) trach CTA RRR abd soft , (+) GT (+) LE edema opens eyes KHORRAMI,PAYMAN Oct 27, 2017 22:27
[2017-10-28] VITALS: BP 126/69
--- NOTE | 2017-10-28 00:02 | General Progress Note ---
Assessment/Plan Problem List: (1) Arthritis, rheumatoid ICD Codes: M06.9 - Rheumatoid arthritis, unspecified SNOMED: 35644804 (2) Aspiration pneumonia ICD Codes: J69.0 - Pneumonitis due to inhalation of food and vomit SNOMED: 800719618 (3) Diabetes mellitus ICD Codes: E11.9 - Type 2 diabetes mellitus without complications SNOMED: 52609676 (4) ARDS (adult respiratory distress syndrome) ICD Codes: J80 - Acute respiratory distress syndrome SNOMED: 84225852 (5) Transaminitis ICD Codes: R74.0 - Nonspecific elevation of levels of transaminase and lactic acid dehydrogenase [LDH] SNOMED: 909669486, 921378425 (6) Dyspnea ICD Codes: R06.00 - Dyspnea, unspecified SNOMED: 365312659 (7) Parkinsons disease ICD Codes: G20 - Parkinson's disease SNOMED: 84009377 (8) Sepsis ICD Codes: A41.9 - Sepsis, unspecified organism SNOMED: 69729324 (9) GERD (gastroesophageal reflux disease) ICD Codes: K21.9 - Gastro-esophageal reflux disease without esophagitis SNOMED: 790183865 (10) Aplastic anemia ICD Codes: D61.9 - Aplastic anemia, unspecified SNOMED: 773276749 (11) Pneumonia ICD Codes: J18.9 - Pneumonia, unspecified organism SNOMED: 141978314 (12) HTN (hypertension) ICD Codes: I10 - Essential (primary) hypertension SNOMED: 31896814 Assessment/Plan Encephalopathy, agitation, psychotic disorder. -cont current meds -ativan prn Subjective Date patient seen: Oct 27, 2017 Allergies: Coded Allergies: No Known Allergies (Verified , 11/18/08) Subjective the pts mental condition was unchanged Objective Last 24 Hour Vital Signs Date Time Temp Pulse Resp B/P (MAP) Pulse Ox O2 Delivery O2 Flow Rate FiO2 10/27/17 23:01 82 22 30 10/27/17 21:22 82 22 30 10/27/17 21:00 82 134/71 10/27/17 20:52 98.6 82 22 134/71 94 98.6 10/27/17 20:00 75 10/27/17 20:00 30 10/27/17 18:53 81 30 30 10/27/17 16:40 82 30 30 10/27/17 16:00 30 10/27/17 16:00 98.1 87 30 126/63 95 Mechanical Ventilator 30 98.1 10/27/17 15:33 85 10/27/17 15:03 84 30 30 10/27/17 15:00 30 10/27/17 13:05 82 30 40 10/27/17 12:00 40 10/27/17 12:00 98.1 79 30 133/67 99 Mechanical Ventilator 40 98.1 10/27/17 11:44 82 10/27/17 11:08 82 35 50 10/27/17 09:53 86 142/65 10/27/17 09:22 86 33 50 10/27/17 08:00 50 10/27/17 08:00 97.5 79 26 142/65 100 Mechanical Ventilator 50 97.5 10/27/17 07:35 75 10/27/17 07:04 73 29 50 10/27/17 05:20 78 24 50 10/27/17 04:00 83 10/27/17 04:00 98.5 74 27 132/66 100 Mechanical Ventilator 50 98.5 10/27/17 04:00 50 10/27/17 02:58 67 21 50 10/27/17 00:52 71 25 50 Intake and Output 10/27/17 10/28/17 19:00 07:00 Intake Total 1354.25 ml Output Total 300 ml Balance 1054.25 ml Free Water 100 ml IV Total 831.25 ml Tube Feeding 363 ml Other 60 ml Output Urine Total 300 ml # Bowel Movements 1 Laboratory Tests 10/27/17 02:45: White Blood Count 11.8H, Red Blood Count 2.92L, Hemoglobin 9.1L, Hematocrit 26.5L, Mean Corpuscular Volume 91, Mean Corpuscular Hemoglobin 31.3H, Mean Corpuscular Hemoglobin Concent 34.4, Red Cell Distribution Width 17.5H, Platelet Count 157, Mean Platelet Volume 7.9, Neutrophils (%) (Auto) 75.1H, Lymphocytes (%) (Auto) 13.2L, Monocytes (%) (Auto) 7.4, Eosinophils (%) (Auto) 3.2H, Basophils (%) (Auto) 1.2, Prothrombin Time 10.0, Prothromb Time International Ratio 1.0, Activated Partial Thromboplast Time 28, Sodium Level 138, Potassium Level 3.7, Chloride Level 107, Carbon Dioxide Level 25, Anion Gap 6, Blood Urea Nitrogen 23H, Creatinine 0.6, Estimat Glomerular Filtration Rate , Glucose Level 109H, Calcium Level 8.1L, Phosphorus Level 3.0, Magnesium Level 2.1, Total Bilirubin 5.8H, Direct Bilirubin 4.9H, Aspartate Amino Transf ( AST/SGOT) 140H, Alanine Aminotransferase (ALT/SGPT) 252H, Alkaline Phosphatase 2067H, Total Protein 6.5, Albumin 1.6L, Globulin 4.9, Albumin/Globulin Ratio 0.3L Height (Feet): 5 Height (Inches): 5.00 Weight (Pounds): 74 Dary Nixon M.D. Oct 28, 2017 00:01
--- NOTE | 2017-10-28 00:02 | Psych Consult Progress Note ---
Psych Consult Progress Note Consult 10/26/17 Vital Signs Last 24 Hour Vital Signs Date Time Temp Pulse Resp B/P (MAP) Pulse Ox O2 Delivery O2 Flow Rate FiO2 10/27/17 23:01 82 22 30 10/27/17 21:22 82 22 30 10/27/17 21:00 82 134/71 10/27/17 20:52 98.6 82 22 134/71 94 98.6 10/27/17 20:00 75 10/27/17 20:00 30 10/27/17 18:53 81 30 30 10/27/17 16:40 82 30 30 10/27/17 16:00 30 10/27/17 16:00 98.1 87 30 126/63 95 Mechanical Ventilator 30 98.1 10/27/17 15:33 85 10/27/17 15:03 84 30 30 10/27/17 15:00 30 10/27/17 13:05 82 30 40 10/27/17 12:00 40 10/27/17 12:00 98.1 79 30 133/67 99 Mechanical Ventilator 40 98.1 10/27/17 11:44 82 10/27/17 11:08 82 35 50 10/27/17 09:53 86 142/65 10/27/17 09:22 86 33 50 10/27/17 08:00 50 10/27/17 08:00 97.5 79 26 142/65 100 Mechanical Ventilator 50 97.5 10/27/17 07:35 75 10/27/17 07:04 73 29 50 10/27/17 05:20 78 24 50 10/27/17 04:00 83 10/27/17 04:00 98.5 74 27 132/66 100 Mechanical Ventilator 50 98.5 10/27/17 04:00 50 10/27/17 02:58 67 21 50 10/27/17 00:52 71 25 50 Labs Laboratory Tests Test 10/27/17 02:45 White Blood Count 11.8 K/UL (4.8-10.8) H Red Blood Count 2.92 M/UL (4.20-5.40) L Hemoglobin 9.1 G/DL (12.0-16.0) L Hematocrit 26.5 % (37.0-47.0) L Mean Corpuscular Volume 91 FL (80-99) Mean Corpuscular Hemoglobin 31.3 PG (27.0-31.0) H Mean Corpuscular Hemoglobin Concent 34.4 G/DL (32.0-36.0) Red Cell Distribution Width 17.5 % (11.6-14.8) H Platelet Count 157 K/UL (150-450) Mean Platelet Volume 7.9 FL (6.5-10.1) Neutrophils (%) (Auto) 75.1 % (45.0-75.0) H Lymphocytes (%) (Auto) 13.2 % (20.0-45.0) L Monocytes (%) (Auto) 7.4 % (1.0-10.0) Eosinophils (%) (Auto) 3.2 % (0.0-3.0) H Basophils (%) (Auto) 1.2 % (0.0-2.0) Prothrombin Time 10.0 SEC (9.30-11.50) Prothromb Time International Ratio 1.0 (0.9-1.1) Activated Partial Thromboplast Time 28 SEC (23-33) Sodium Level 138 MMOL/L (136-145) Potassium Level 3.7 MMOL/L (3.5-5.1) Chloride Level 107 MMOL/L (98-107) Carbon Dioxide Level 25 MMOL/L (21-32) Anion Gap 6 mmol/L (5-15) Blood Urea Nitrogen 23 mg/dL (7-18) H Creatinine 0.6 MG/DL (0.55-1.30) Estimat Glomerular Filtration Rate mL/min (>60) Glucose Level 109 MG/DL (74-106) H Calcium Level 8.1 MG/DL (8.5-10.1) L Phosphorus Level 3.0 MG/DL (2.5-4.9) Magnesium Level 2.1 MG/DL (1.8-2.4) Total Bilirubin 5.8 MG/DL (0.2-1.0) H Direct Bilirubin 4.9 MG/DL (0.0-0.3) H Aspartate Amino Transf (AST/SGOT) 140 U/L (15-37) H Alanine Aminotransferase (ALT/SGPT) 252 U/L (12-78) H Alkaline Phosphatase 2067 U/L (46-116) H Total Protein 6.5 G/DL (6.4-8.2) Albumin 1.6 G/DL (3.4-5.0) L Globulin 4.9 g/dL Albumin/Globulin Ratio 0.3 (1.0-2.7) L Medications Current Medications Medications (Trade) Dose Ordered Sig/Hermes Route PRN Reason Start Time Stop Time Status Last Admin Dose Admin Acetaminophen (Tylenol) 650 mg Q6H PRN NG Pain Scale (3-5) 10/25/17 14:45 11/24/17 14:44 10/25/17 14:45 Clotrimazole (Lotrimin) 1 applic EVERY 12 HOURS TOPIC 10/14/17 21:00 11/09/17 22:59 10/27/17 21:14 Dextrose (Dextrose 50%) 25 ml STAT PRN IV Hypoglycemia 10/18/17 08:30 11/17/17 08:29 Dextrose (Dextrose 50%) 50 ml STAT PRN IV Hypoglycemia 10/18/17 08:30 11/17/17 08:29 Dextrose/Sodium Chloride 1,000 ml @ 75 mls/hr [id number] IV 10/24/17 11:30 11/23/17 11:29 10/27/17 19:43 Diltiazem HCl (Cardizem) 30 mg EVERY 12 HOURS GT 10/27/17 21:00 11/10/17 08:59 10/27/17 21:00 Insulin Aspart (NovoLOG) Q6HR SUBQ 10/18/17 12:00 11/17/17 11:59 10/27/17 17:24 Meropenem 1 gm/ Sodium Chloride 55 ml @ 110 mls/hr Q12HR IVPB 10/28/17 09:00 11/02/17 08:59 Problems: (1) Arthritis, rheumatoid (2) Aspiration pneumonia (3) Diabetes mellitus (4) ARDS (adult respiratory distress syndrome) (5) Transaminitis Status: Acute (6) Dyspnea (7) Parkinsons disease (8) Sepsis (9) GERD (gastroesophageal reflux disease) (10) Aplastic anemia (11) Pneumonia (12) HTN (hypertension) Dary Nixon M.D. Oct 28, 2017 00:02
[2017-10-28] MEDS: NovoLOG Insulin Flexpen SUBQ SCH ×5 (01:09→23:54)
[2017-10-28 04:00] VITALS: BP 155/80
[2017-10-28 06:03] LABS: EOSINOPHILS % (AUTO) 3.9 % (0.0-3.0); HEMATOCRIT 28.2 % (37.0-47.0); HEMOGLOBIN 9.9 G/DL (12.0-16.0); LYMPHOCYTES % (AUTO) 11.5 % (20.0-45.0); MEAN CORPUSCULAR VOLUME 92 FL (80-99); MONOCYTES % (AUTO) 6.3 % (1.0-10.0); NEUTROPHILS % (AUTO) 76.3 % (45.0-75.0); PLATELET COUNT 182 K/UL (150-450); RED BLOOD COUNT 3.06 M/UL (4.20-5.40); RED CELL DISTRIBUTION WIDTH 17.3 % (11.6-14.8); WHITE BLOOD COUNT 11.7 K/UL (4.8-10.8)
[2017-10-28 06:40] LABS: ALANINE AMINOTRANSFERASE 186 U/L (12-78); ALBUMIN 1.6 G/DL (3.4-5.0); ALBUMIN/GLOBULIN RATIO 0.3 (1.0-2.7); ALKALINE PHOSPHATASE 2067 U/L (46-116); ANION GAP 7 mmol/L (5-15); ASPARTATE AMINO TRANSFERASE 101 U/L (15-37); BILIRUBIN,TOTAL 4.3 MG/DL (0.2-1.0); BLOOD UREA NITROGEN 23 mg/dL (7-18); CALCIUM 8.4 MG/DL (8.5-10.1); CARBON DIOXIDE 26 MMOL/L (21-32); CHLORIDE 105 MMOL/L (98-107); CREATININE 0.6 MG/DL (0.55-1.30); PHOSPHORUS 2.5 MG/DL (2.5-4.9); POTASSIUM 3.9 MMOL/L (3.5-5.1); SODIUM 137 MMOL/L (136-145)
[2017-10-28 06:41] LABS: BILIRUBIN,DIRECT 3.4 MG/DL (0.0-0.3)
[2017-10-28 08:00] VITALS: BP 157/83
[2017-10-28] MEDS ORDERED: D5 1/2NS 1000ml IV ONE (08:57)
[2017-10-28] MEDS ORDERED: Sterile Water Irrig 1000ml IRRIG ONE (08:57)
[2017-10-28] MEDS: D5 1/2NS 1,000 ML IV SCH ×2 (09:03→22:01)
[2017-10-28] MEDS: dilTIAZem HCl 30mg tab GT SCH ×2 (09:03→20:45)
[2017-10-28] MEDS: Meropenem 1 GM in NS 55 ML IVPB SCH ×2 (09:04→21:06)
--- NOTE | 2017-10-28 10:46 | Infectious Diseases Prog Note ---
Assessment/Plan Assessment/Plan The patient is a 76-year-old female w 10/20 BCx : 07/16 CoNS ( m/l Contaminant, no Ctr line ) Fever , SP Leukocytosis, SP Cholangitis, Abnormal liver function tests, ALP>>> AST - improving CT: subcentimeter low-attenuation hepatic lesions are too small to characterize, most likely benign simple cysts or bile hamartomas -SP ERCP 10/22 choledocholithiasis -s/p ERCP 10/08: Intraoperative images demonstrate faint opacification of the common bile duct, and placement of a new plastic endobiliary stent. What may be a previous malpositioned biliary stent is seen to the left of the endoscope -s/p ERCP with stent placement 10/01 -EUS 09/30: 1. Dilated common bile duct with lots of sludge in the distal common bile duct, most probably explanation for abnormal liver function tests. Large ascites Hep panel : neg Community-acquired vs healthcare-associated pneumonia, s/p RX 10/13 SP Fiberoptic bronchoscopy, bronchoalveolar lavage, upper airway endoscopy for percutaneous tracheostomy, bronchoscopy through tracheostomy BAL : Laila an Nl devon , AFB : Neg Viral Cx : NegTD -CT chest 10/07: Extensive diffuse bilateral pulmonary parenchymal disease, slightly worse than on prior exam of 09/23/2017. Main differential considerations include pneumonia, ARDS, pulmonary edema, among multiple other possibilities. Bilateral moderate to large pleural effusions, slightly increased in size from 09/23/2017. Nasogastric and endotracheal tubes in good position. Evidence of generalized anasarca, with diffuse subcutaneous soft tissue edema. 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 Depression. Anemia. Rheumatoid arthritis. History of gastritis. PLAN: Merrem d# 3 / 5-7 ( Empirically ) 10/26 IV Zosyn d # 5 10/24 IV Vanco d# 5 - 10/11 SP Ertapenem #7/7 10/09 SP MIcafungin #10 10/02 SP Amikacin #10 09/30 SP Flagyl #8 09/25 sp Fluconazole #3 (held due to rise ALP) 09/23 SP Meropenem #5, PO Vanco #2 / SP tamiflu #10 -f/u AFB cultures ( BAL) : P Monitor CBC.; Monitor BMP.; Trend LFTs Monitor chest x-ray -GI, heme onc f/u Subjective Constitutional: Denies: no symptoms, fever, chills, fatigue, anorexia, drenching sweats, other Allergies: Coded Allergies: No Known Allergies (Verified , 11/18/08) Subjective Afebrile no acute event Objective Vital Signs Last 24 Hour Vital Signs Date Time Temp Pulse Resp B/P (MAP) Pulse Ox O2 Delivery O2 Flow Rate FiO2 10/28/17 10:30 98 38 50 10/28/17 09:03 85 157/83 10/28/17 08:57 85 31 30 10/28/17 08:00 97.5 100 22 157/83 94 Mechanical Ventilator 30 97.5 10/28/17 08:00 30 10/28/17 07:26 95 10/28/17 07:19 89 26 30 10/28/17 05:53 86 22 30 10/28/17 04:00 83 10/28/17 04:00 98.6 89 22 155/80 95 98.6 10/28/17 04:00 30 10/28/17 03:06 86 22 30 10/28/17 00:55 98 22 30 10/28/17 00:00 98.5 69 21 126/69 94 98.5 10/28/17 00:00 30 10/28/17 00:00 69 10/27/17 23:01 82 22 30 10/27/17 21:22 82 22 30 10/27/17 21:00 82 134/71 10/27/17 20:52 98.6 82 22 134/71 94 98.6 10/27/17 20:00 75 10/27/17 20:00 30 10/27/17 18:53 81 30 30 10/27/17 16:40 82 30 30 10/27/17 16:00 30 10/27/17 16:00 98.1 87 30 126/63 95 Mechanical Ventilator 30 98.1 10/27/17 15:33 85 10/27/17 15:03 84 30 30 10/27/17 15:00 30 10/27/17 13:05 82 30 40 10/27/17 12:00 40 10/27/17 12:00 98.1 79 30 133/67 99 Mechanical Ventilator 40 98.1 10/27/17 11:44 82 10/27/17 11:08 82 35 50 Height (Feet): 5 Height (Inches): 5.00 Weight (Pounds): 75 HEENT: anicteric Respiratory/Chest: no respiratory distress Cardiovascular: regular rhythm Abdomen: soft, non tender Laboratory Tests Test 10/28/17 03:30 White Blood Count 11.7 K/UL (4.8-10.8) H Red Blood Count 3.06 M/UL (4.20-5.40) L Hemoglobin 9.9 G/DL (12.0-16.0) L Hematocrit 28.2 % (37.0-47.0) L Mean Corpuscular Volume 92 FL (80-99) Mean Corpuscular Hemoglobin 32.3 PG (27.0-31.0) H Mean Corpuscular Hemoglobin Concent 35.1 G/DL (32.0-36.0) Red Cell Distribution Width 17.3 % (11.6-14.8) H Platelet Count 182 K/UL (150-450) Mean Platelet Volume 8.6 FL (6.5-10.1) Neutrophils (%) (Auto) 76.3 % (45.0-75.0) H Lymphocytes (%) (Auto) 11.5 % (20.0-45.0) L Monocytes (%) (Auto) 6.3 % (1.0-10.0) Eosinophils (%) (Auto) 3.9 % (0.0-3.0) H Basophils (%) (Auto) 2.0 % (0.0-2.0) Sodium Level 137 MMOL/L (136-145) Potassium Level 3.9 MMOL/L (3.5-5.1) Chloride Level 105 MMOL/L (98-107) Carbon Dioxide Level 26 MMOL/L (21-32) Anion Gap 7 mmol/L (5-15) Blood Urea Nitrogen 23 mg/dL (7-18) H Creatinine 0.6 MG/DL (0.55-1.30) Estimat Glomerular Filtration Rate mL/min (>60) Glucose Level 97 MG/DL (74-106) Calcium Level 8.4 MG/DL (8.5-10.1) L Phosphorus Level 2.5 MG/DL (2.5-4.9) Magnesium Level 1.9 MG/DL (1.8-2.4) Total Bilirubin 4.3 MG/DL (0.2-1.0) H Direct Bilirubin 3.4 MG/DL (0.0-0.3) H Aspartate Amino Transf (AST/SGOT) 101 U/L (15-37) H Alanine Aminotransferase (ALT/SGPT) 186 U/L (12-78) H Alkaline Phosphatase 2067 U/L (46-116) H Total Protein 6.6 G/DL (6.4-8.2) Albumin 1.6 G/DL (3.4-5.0) L Globulin 5.0 g/dL Albumin/Globulin Ratio 0.3 (1.0-2.7) L Current Medications Medications (Trade) Dose Ordered Sig/Hermes Route PRN Reason Start Time Stop Time Status Last Admin Dose Admin Acetaminophen (Tylenol) 650 mg Q6H PRN NG Pain Scale (3-5) 10/25/17 14:45 11/24/17 14:44 10/25/17 14:45 Clotrimazole (Lotrimin) 1 applic EVERY 12 HOURS TOPIC 10/14/17 21:00 11/09/17 22:59 10/28/17 09:02 Dextrose (Dextrose 50%) 25 ml STAT PRN IV Hypoglycemia 10/18/17 08:30 11/17/17 08:29 Dextrose (Dextrose 50%) 50 ml STAT PRN IV Hypoglycemia 10/18/17 08:30 11/17/17 08:29 Dextrose/Sodium Chloride 1,000 ml @ 75 mls/hr [id number] IV 10/24/17 11:30 11/23/17 11:29 10/28/17 09:03 Diltiazem HCl (Cardizem) 30 mg EVERY 12 HOURS GT 10/27/17 21:00 11/10/17 08:59 10/28/17 09:03 Insulin Aspart (NovoLOG) Q6HR SUBQ 10/18/17 12:00 11/17/17 11:59 10/28/17 01:09 Meropenem 1 gm/ Sodium Chloride 55 ml @ 110 mls/hr Q12HR IVPB 10/28/17 09:00 11/02/17 08:59 10/28/17 09:04 Edis Hunter MD Oct 28, 2017 10:46
--- NOTE | 2017-10-28 11:33 | Pulmonology Progress Note ---
Assessment/Plan Problems: (1) ARDS (adult respiratory distress syndrome) (2) Sepsis (3) Coagulopathy (4) Aspiration pneumonia (5) Cholangitis (6) Diabetes mellitus, type II (7) Protein-calorie malnutrition, severe (8) Parkinsons disease Assessment/Plan bilirubin declined to 34 liver enzymes slightly less still on fio2 of 50% decrease TV to 400 tolerating feeding titrate vent settings accordingly dvt prophylaxis liver biopsy results pending, today they should become available Subjective ROS Limited/Unobtainable: No Constitutional: Reports: no symptoms HEENT: Repors: no symptoms Respiratory: Reports: no symptoms Allergies: Coded Allergies: No Known Allergies (Verified , 11/18/08) Objective Last 24 Hour Vital Signs Date Time Temp Pulse Resp B/P (MAP) Pulse Ox O2 Delivery O2 Flow Rate FiO2 10/28/17 11:13 50 10/28/17 10:30 98 38 50 10/28/17 09:03 85 157/83 10/28/17 08:57 85 31 30 10/28/17 08:00 97.5 100 22 157/83 94 Mechanical Ventilator 30 97.5 10/28/17 08:00 30 10/28/17 07:26 95 10/28/17 07:19 89 26 30 10/28/17 05:53 86 22 30 10/28/17 04:00 83 10/28/17 04:00 98.6 89 22 155/80 95 98.6 10/28/17 04:00 30 10/28/17 03:06 86 22 30 10/28/17 00:55 98 22 30 10/28/17 00:00 98.5 69 21 126/69 94 98.5 10/28/17 00:00 30 10/28/17 00:00 69 10/27/17 23:01 82 22 30 10/27/17 21:22 82 22 30 10/27/17 21:00 82 134/71 10/27/17 20:52 98.6 82 22 134/71 94 98.6 10/27/17 20:00 75 10/27/17 20:00 30 10/27/17 18:53 81 30 30 10/27/17 16:40 82 30 30 10/27/17 16:00 30 10/27/17 16:00 98.1 87 30 126/63 95 Mechanical Ventilator 30 98.1 10/27/17 15:33 85 10/27/17 15:03 84 30 30 10/27/17 15:00 30 10/27/17 13:05 82 30 40 10/27/17 12:00 40 10/27/17 12:00 98.1 79 30 133/67 99 Mechanical Ventilator 40 98.1 10/27/17 11:44 82 Intake and Output 10/27/17 10/28/17 19:00 07:00 Intake Total 1387.25 ml 1238 ml Output Total 300 ml 500 ml Balance 1087.25 ml 738 ml Free Water 100 ml 200 ml IV Total 831.25 ml 675 ml Tube Feeding 396 ml 363 ml Other 60 ml Output Urine Total 300 ml 500 ml # Voids 1 # Bowel Movements 1 1 General Appearance: cachetic HEENT: normocephalic, anicteric Respiratory/Chest: chest wall non-tender, lungs clear, no respiratory distress Cardiovascular: normal peripheral pulses, normal rate Abdomen: normal bowel sounds, soft, non tender, no organomegaly Genitourinary: normal external genitalia Extremities: no cyanosis Skin: no rash, no lesions 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: 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 manager 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 grossly normal Lymphatic: no neck adenopathy Laboratory Tests 10/28/17 03:30: White Blood Count 11.7H, Red Blood Count 3.06L, Hemoglobin 9.9L, Hematocrit 28.2L, Mean Corpuscular Volume 92, Mean Corpuscular Hemoglobin 32.3H, Mean Corpuscular Hemoglobin Concent 35.1, Red Cell Distribution Width 17.3H, Platelet Count 182, Mean Platelet Volume 8.6, Neutrophils (%) (Auto) 76.3H, Lymphocytes (%) (Auto) 11.5L, Monocytes (%) (Auto) 6.3, Eosinophils (%) (Auto) 3.9H, Basophils (%) (Auto) 2.0, Sodium Level 137, Potassium Level 3.9, Chloride Level 105, Carbon Dioxide Level 26, Anion Gap 7, Blood Urea Nitrogen 23H, Creatinine 0.6, Estimat Glomerular Filtration Rate , Glucose Level 97, Calcium Level 8.4L, Phosphorus Level 2.5, Magnesium Level 1.9, Total Bilirubin 4.3H, Direct Bilirubin 3.4H, Aspartate Amino Transf (AST/SGOT) 101H, Alanine Aminotransferase (ALT/SGPT) 186H, Alkaline Phosphatase 2067H, Total Protein 6.6 , Albumin 1.6L, Globulin 5.0, Albumin/Globulin Ratio 0.3L Current Medications Medications (Trade) Dose Ordered Sig/Hermes Route PRN Reason Start Time Stop Time Status Last Admin Dose Admin Acetaminophen (Tylenol) 650 mg Q6H PRN NG Pain Scale (3-5) 10/25/17 14:45 11/24/17 14:44 10/25/17 14:45 Clotrimazole (Lotrimin) 1 applic EVERY 12 HOURS TOPIC 10/14/17 21:00 11/09/17 22:59 10/28/17 09:02 Dextrose (Dextrose 50%) 25 ml STAT PRN IV Hypoglycemia 10/18/17 08:30 11/17/17 08:29 Dextrose (Dextrose 50%) 50 ml STAT PRN IV Hypoglycemia 10/18/17 08:30 11/17/17 08:29 Dextrose/Sodium Chloride 1,000 ml @ 75 mls/hr [id number] IV 10/24/17 11:30 11/23/17 11:29 10/28/17 09:03 Diltiazem HCl (Cardizem) 30 mg EVERY 12 HOURS GT 10/27/17 21:00 11/10/17 08:59 10/28/17 09:03 Insulin Aspart (NovoLOG) Q6HR SUBQ 10/18/17 12:00 11/17/17 11:59 10/28/17 01:09 Meropenem 1 gm/ Sodium Chloride 55 ml @ 110 mls/hr Q12HR IVPB 10/28/17 09:00 11/02/17 08:59 10/28/17 09:04 Tayler Liu MD Oct 28, 2017 11:33
[2017-10-28 12:00] VITALS: BP 156/79
--- NOTE | 2017-10-28 14:21 | Nephrology Progress Note ---
Assessment/Plan Problem List: (1) ARDS (adult respiratory distress syndrome) (2) Electrolyte imbalance (3) Thrombocytopenia Assessment improving leukocytosis (1) ARDS (adult respiratory distress syndrome) s/p Trach (2) Aspiration pneumonia (3) Protein-calorie malnutrition, severe (4) Diabetes mellitus (5) Anemia , aplastic by history (6) DM (7) UTI (8) Electrolyte imbalance (9) HTN (10) Depression (11) RA . Plan stable from renal stand - had trach and PEG water via NGT Adjust BP meds K and Phos supplement as needed Monitor renal parameters and urine output avoid nephrotoxics per orders discussed with RN Left ventricular ejection fraction estimated to be 55 %. Subjective ROS Limited/Unobtainable: Yes Objective Objective Last 24 Hour Vital Signs Date Time Temp Pulse Resp B/P (MAP) Pulse Ox O2 Delivery O2 Flow Rate FiO2 10/28/17 12:46 104 40 50 10/28/17 12:00 97.6 103 30 156/79 100 Mechanical Ventilator 30 97.6 10/28/17 11:47 109 10/28/17 11:13 50 10/28/17 10:30 98 38 50 10/28/17 09:03 85 157/83 10/28/17 08:57 85 31 30 10/28/17 08:00 97.5 100 22 157/83 94 Mechanical Ventilator 30 97.5 10/28/17 08:00 30 10/28/17 07:26 95 10/28/17 07:19 89 26 30 10/28/17 05:53 86 22 30 10/28/17 04:00 83 10/28/17 04:00 98.6 89 22 155/80 95 98.6 10/28/17 04:00 30 10/28/17 03:06 86 22 30 10/28/17 00:55 98 22 30 10/28/17 00:00 98.5 69 21 126/69 94 98.5 10/28/17 00:00 30 10/28/17 00:00 69 10/27/17 23:01 82 22 30 10/27/17 21:22 82 22 30 10/27/17 21:00 82 134/71 10/27/17 20:52 98.6 82 22 134/71 94 98.6 10/27/17 20:00 75 10/27/17 20:00 30 10/27/17 18:53 81 30 30 10/27/17 16:40 82 30 30 10/27/17 16:00 30 10/27/17 16:00 98.1 87 30 126/63 95 Mechanical Ventilator 30 98.1 10/27/17 15:33 85 10/27/17 15:03 84 30 30 10/27/17 15:00 30 Intake and Output 10/27/17 10/28/17 19:00 07:00 Intake Total 1387.25 ml 1238 ml Output Total 300 ml 500 ml Balance 1087.25 ml 738 ml Free Water 100 ml 200 ml IV Total 831.25 ml 675 ml Tube Feeding 396 ml 363 ml Other 60 ml Output Urine Total 300 ml 500 ml # Voids 1 # Bowel Movements 1 1 Laboratory Tests 10/28/17 03:30: White Blood Count 11.7H, Red Blood Count 3.06L, Hemoglobin 9.9L, Hematocrit 28.2L, Mean Corpuscular Volume 92, Mean Corpuscular Hemoglobin 32.3H, Mean Corpuscular Hemoglobin Concent 35.1, Red Cell Distribution Width 17.3H, Platelet Count 182, Mean Platelet Volume 8.6, Neutrophils (%) (Auto) 76.3H, Lymphocytes (%) (Auto) 11.5L, Monocytes (%) (Auto) 6.3, Eosinophils (%) (Auto) 3.9H, Basophils (%) (Auto) 2.0, Sodium Level 137, Potassium Level 3.9, Chloride Level 105, Carbon Dioxide Level 26, Anion Gap 7, Blood Urea Nitrogen 23H, Creatinine 0.6, Estimat Glomerular Filtration Rate , Glucose Level 97, Calcium Level 8.4L, Phosphorus Level 2.5, Magnesium Level 1.9, Total Bilirubin 4.3H, Direct Bilirubin 3.4H, Aspartate Amino Transf (AST/SGOT) 101H, Alanine Aminotransferase (ALT/SGPT) 186H, Alkaline Phosphatase 2067H, Total Protein 6.6 , Albumin 1.6L, Globulin 5.0, Albumin/Globulin Ratio 0.3L Height (Feet): 5 Height (Inches): 5.00 Weight (Pounds): 75 General Appearance: no apparent distress Respiratory/Chest: decreased breath sounds Abdomen: distended Objective no change YAEL HANSEN Oct 28, 2017 14:21
[2017-10-28 16:00] VITALS: BP 157/76
--- NOTE | 2017-10-28 16:16 | Internal Med Progress Note ---
Subjective Date of Service: Oct 28, 2017 Physician Name Sina Bowens Attending Physician Jesus Barahona MD Current Medications Medications (Trade) Dose Ordered Sig/Hermes Route PRN Reason Start Time Stop Time Status Last Admin Dose Admin Acetaminophen (Tylenol) 650 mg Q6H PRN NG Pain Scale (3-5) 10/25/17 14:45 11/24/17 14:44 10/25/17 14:45 Clotrimazole (Lotrimin) 1 applic EVERY 12 HOURS TOPIC 10/14/17 21:00 11/09/17 22:59 10/28/17 09:02 Dextrose (Dextrose 50%) 25 ml STAT PRN IV Hypoglycemia 10/18/17 08:30 11/17/17 08:29 Dextrose (Dextrose 50%) 50 ml STAT PRN IV Hypoglycemia 10/18/17 08:30 11/17/17 08:29 Dextrose/Sodium Chloride 1,000 ml @ 75 mls/hr [id number] IV 10/24/17 11:30 11/23/17 11:29 10/28/17 09:03 Diltiazem HCl (Cardizem) 30 mg EVERY 12 HOURS GT 10/27/17 21:00 11/10/17 08:59 10/28/17 09:03 Insulin Aspart (NovoLOG) Q6HR SUBQ 10/18/17 12:00 11/17/17 11:59 10/28/17 12:21 Meropenem 1 gm/ Sodium Chloride 55 ml @ 110 mls/hr Q12HR IVPB 10/28/17 09:00 11/02/17 08:59 10/28/17 09:04 Allergies: Coded Allergies: No Known Allergies (Verified , 11/18/08) ROS Limited/Unobtainable: No Constitutional: Reports: no symptoms HEENT: Reports: no symptoms Cardiovascular: Reports: no symptoms Respiratory: Reports: no symptoms Gastrointestinal/Abdominal: Reports: no symptoms Genitourinary: Reports: no symptoms 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: Reports: no symptoms Subjective 76 YO F admitted with Shortness of breath, now respiratory failure. Intubated and sedated. Cover for Internal Med-Dr. Barahona. RAJINDER . S/P ERCP 10/08/17. S/P Tracheostomy and bronchoscopy 10/13/17. More alert today. Await transfer to [place] subacute vs [place] Objective Last Vital Signs Date Time Temp Pulse Resp B/P (MAP) Pulse Ox O2 Delivery O2 Flow Rate FiO2 10/28/17 15:16 110 34 50 10/28/17 12:00 97.6 156/79 100 Mechanical Ventilator 97.6 Laboratory Tests Test 10/28/17 03:30 White Blood Count 11.7 K/UL (4.8-10.8) H Red Blood Count 3.06 M/UL (4.20-5.40) L Hemoglobin 9.9 G/DL (12.0-16.0) L Hematocrit 28.2 % (37.0-47.0) L Mean Corpuscular Volume 92 FL (80-99) Mean Corpuscular Hemoglobin 32.3 PG (27.0-31.0) H Mean Corpuscular Hemoglobin Concent 35.1 G/DL (32.0-36.0) Red Cell Distribution Width 17.3 % (11.6-14.8) H Platelet Count 182 K/UL (150-450) Mean Platelet Volume 8.6 FL (6.5-10.1) Neutrophils (%) (Auto) 76.3 % (45.0-75.0) H Lymphocytes (%) (Auto) 11.5 % (20.0-45.0) L Monocytes (%) (Auto) 6.3 % (1.0-10.0) Eosinophils (%) (Auto) 3.9 % (0.0-3.0) H Basophils (%) (Auto) 2.0 % (0.0-2.0) Sodium Level 137 MMOL/L (136-145) Potassium Level 3.9 MMOL/L (3.5-5.1) Chloride Level 105 MMOL/L (98-107) Carbon Dioxide Level 26 MMOL/L (21-32) Anion Gap 7 mmol/L (5-15) Blood Urea Nitrogen 23 mg/dL (7-18) H Creatinine 0.6 MG/DL (0.55-1.30) Estimat Glomerular Filtration Rate mL/min (>60) Glucose Level 97 MG/DL (74-106) Calcium Level 8.4 MG/DL (8.5-10.1) L Phosphorus Level 2.5 MG/DL (2.5-4.9) Magnesium Level 1.9 MG/DL (1.8-2.4) Total Bilirubin 4.3 MG/DL (0.2-1.0) H Direct Bilirubin 3.4 MG/DL (0.0-0.3) H Aspartate Amino Transf (AST/SGOT) 101 U/L (15-37) H Alanine Aminotransferase (ALT/SGPT) 186 U/L (12-78) H Alkaline Phosphatase 2067 U/L (46-116) H Total Protein 6.6 G/DL (6.4-8.2) Albumin 1.6 G/DL (3.4-5.0) L Globulin 5.0 g/dL Albumin/Globulin Ratio 0.3 (1.0-2.7) L Intake and Output 10/27/17 10/28/17 19:00 07:00 Intake Total 1387.25 ml 1238 ml Output Total 300 ml 500 ml Balance 1087.25 ml 738 ml Free Water 100 ml 200 ml IV Total 831.25 ml 675 ml Tube Feeding 396 ml 363 ml Other 60 ml Output Urine Total 300 ml 500 ml # Voids 1 # Bowel Movements 1 1 Objective General Appearance: lethargic, thin EENT: normal ENT inspection Neck: Trach; non-tender, normal alignment, supple Cardiovascular: normal peripheral pulses, normal rate, regular rhythm, no gallop/murmur, no JVD Respiratory/Chest: Mechanical vent; trach; ; respiratory distress, crackles/ rales, rhonchi - bilaterally, expiratory wheezing Abdomen: normal bowel sounds, non tender, soft, no organomegaly, no mass Skin: normal pigmentation, warm/dry Assessment/Plan Problem List: (1) HTN (hypertension) Assessment & Plan: Currently hypotensive. (2) Arthritis, rheumatoid (3) Parkinsons disease (4) Aplastic anemia (5) GERD (gastroesophageal reflux disease) (6) Respiratory failure Assessment & Plan: S/P Tracheostomy and broncholsopy 10/13/17. Cont vent per pulmonary (7) Pneumonia (8) Dyspnea (9) Sepsis Assessment & Plan: Blood culture neg. Continue meropenem and vancomycin per ID (10) ARDS (adult respiratory distress syndrome) Assessment & Plan: See pulmonary note (11) UTI (urinary tract infection) Assessment & Plan: E.Coli. Continue abx per ID (12) Anemia Assessment & Plan: S/P Transfusion 2 units PRBC 10/25/17 (13) Diabetes mellitus, type II Assessment & Plan: Continue novolog sliding scale (14) Leukocytosis Assessment & Plan: Continue meropenem and vancomycin- See ID note. (15) Thrombocytopenia (16) Gallbladder sludge Assessment & Plan: s/P ERCP 10/01, 10/07/17 and 10/08/17 (17) Coagulopathy Assessment & Plan: S/P FFP and Vit K Status: stable Assessment/Plan Discharge planning: [place] vs [place] subacute fac SINA BOWENS Oct 28, 2017 16:16
--- NOTE | 2017-10-28 16:24 | Cardiac Electrophysiology PN ---
Assessment/Plan Assessment/Plan 1. Vent dependent Respiratory failure S/P Tracheostomy EF normal and no myocardial infarction. 2. Left bundle-branch block. No evidence of more advanced heart block or bradycardia 3. HTN and diastolic dysfunction. Echo EF 55% On Cardizem 30 BID 4. Hypernatremia and Azotemia. F/U per Dr. Mayre 5. Pneumonia and sepsis on IV antibiotics by Dr. Hunter. WBC down to 9K 6. Psychiatric disorder. 7. Anasarca. 3rd spacing. 8. Anemia with Hb 6.6 s/p PRBC. CT chest abdomen and pelvis without contrast no acute finding S/P EGD by Dr Walton. S/P PEG 10/16/17 9. Severe thrombocytopenia. S/P platelet transfusion 10. Abnormal LFT, Biliary obstruction, possible cholangitis. S/P ERCP. CBD sludge. S/P repeat ERCP and stent by Dr. Walton Bilirubin 6.8 and Alk Phos more than 2400s S/P Repeat ERCP 10/22/[address] Walton 11. High INR likely due to hepatic failure. S/P FFP and Vit K. INR 1 DW RN Subjective Subjective Sinus tach better after transfusion. No SVT or VT. Objective Last 24 Hour Vital Signs Date Time Temp Pulse Resp B/P (MAP) Pulse Ox O2 Delivery O2 Flow Rate FiO2 10/28/17 15:16 110 34 50 10/28/17 12:46 104 40 50 10/28/17 12:00 97.6 103 30 156/79 100 Mechanical Ventilator 30 97.6 10/28/17 11:47 109 10/28/17 11:13 50 10/28/17 10:30 98 38 50 10/28/17 09:03 85 157/83 10/28/17 08:57 85 31 30 10/28/17 08:00 97.5 100 22 157/83 94 Mechanical Ventilator 30 97.5 10/28/17 08:00 30 10/28/17 07:26 95 10/28/17 07:19 89 26 30 10/28/17 05:53 86 22 30 10/28/17 04:00 83 10/28/17 04:00 98.6 89 22 155/80 95 98.6 10/28/17 04:00 30 10/28/17 03:06 86 22 30 10/28/17 00:55 98 22 30 10/28/17 00:00 98.5 69 21 126/69 94 98.5 10/28/17 00:00 30 10/28/17 00:00 69 10/27/17 23:01 82 22 30 10/27/17 21:22 82 22 30 10/27/17 21:00 82 134/71 10/27/17 20:52 98.6 82 22 134/71 94 98.6 10/27/17 20:00 75 10/27/17 20:00 30 10/27/17 18:53 81 30 30 10/27/17 16:40 82 30 30 Intake and Output 10/27/17 10/28/17 19:00 07:00 Intake Total 1387.25 ml 1238 ml Output Total 300 ml 500 ml Balance 1087.25 ml 738 ml Free Water 100 ml 200 ml IV Total 831.25 ml 675 ml Tube Feeding 396 ml 363 ml Other 60 ml Output Urine Total 300 ml 500 ml # Voids 1 # Bowel Movements 1 1 Laboratory Tests Test 10/28/17 03:30 White Blood Count 11.7 K/UL (4.8-10.8) H Red Blood Count 3.06 M/UL (4.20-5.40) L Hemoglobin 9.9 G/DL (12.0-16.0) L Hematocrit 28.2 % (37.0-47.0) L Mean Corpuscular Volume 92 FL (80-99) Mean Corpuscular Hemoglobin 32.3 PG (27.0-31.0) H Mean Corpuscular Hemoglobin Concent 35.1 G/DL (32.0-36.0) Red Cell Distribution Width 17.3 % (11.6-14.8) H Platelet Count 182 K/UL (150-450) Mean Platelet Volume 8.6 FL (6.5-10.1) Neutrophils (%) (Auto) 76.3 % (45.0-75.0) H Lymphocytes (%) (Auto) 11.5 % (20.0-45.0) L Monocytes (%) (Auto) 6.3 % (1.0-10.0) Eosinophils (%) (Auto) 3.9 % (0.0-3.0) H Basophils (%) (Auto) 2.0 % (0.0-2.0) Sodium Level 137 MMOL/L (136-145) Potassium Level 3.9 MMOL/L (3.5-5.1) Chloride Level 105 MMOL/L (98-107) Carbon Dioxide Level 26 MMOL/L (21-32) Anion Gap 7 mmol/L (5-15) Blood Urea Nitrogen 23 mg/dL (7-18) H Creatinine 0.6 MG/DL (0.55-1.30) Estimat Glomerular Filtration Rate mL/min (>60) Glucose Level 97 MG/DL (74-106) Calcium Level 8.4 MG/DL (8.5-10.1) L Phosphorus Level 2.5 MG/DL (2.5-4.9) Magnesium Level 1.9 MG/DL (1.8-2.4) Total Bilirubin 4.3 MG/DL (0.2-1.0) H Direct Bilirubin 3.4 MG/DL (0.0-0.3) H Aspartate Amino Transf (AST/SGOT) 101 U/L (15-37) H Alanine Aminotransferase (ALT/SGPT) 186 U/L (12-78) H Alkaline Phosphatase 2067 U/L (46-116) H Total Protein 6.6 G/DL (6.4-8.2) Albumin 1.6 G/DL (3.4-5.0) L Globulin 5.0 g/dL Albumin/Globulin Ratio 0.3 (1.0-2.7) L Objective HEAD AND NECK: Tracheostomy in place LUNGS: Coarse rhonchi bilaterally CARDIOVASCULAR: Tachy S1 and S2.No murmur ABDOMEN: Soft. PEG in place EXTREMITIES: No edema. Charlie Darnell MD Oct 28, 2017 16:24
--- NOTE | 2017-10-28 18:45 | General Progress Note ---
Assessment/Plan Assessment/Plan Assessment - Resp failure / ARDS / PNA - s/p trach - Abnormal LFT, now on steady decline - Jaundice - improving - Anemia with OB (+) stools - Malnutrition - s/p PEG - AMS - improved - CMV PCR (+) --> liver biopsy CMV stain negative per prelim report Recommendations - follow labs / LFT daily - follow up final liver biopsy results - OK for discharge from GI standpoint - D/w patient Nephew - he needs to arrange for ERCP with stent removal in 2 months - transfuse PRN - Elevate HOB - Vent care Subjective Allergies: Coded Allergies: No Known Allergies (Verified , 11/18/08) Subjective Above noted awake and responsive d/w pathology - biliary statis seen, final reading pending labs noted - LFT and WBC all improving Objective Last 24 Hour Vital Signs Date Time Temp Pulse Resp B/P (MAP) Pulse Ox O2 Delivery O2 Flow Rate FiO2 10/28/17 16:35 35 10/28/17 16:30 110 35 35 10/28/17 16:00 50 10/28/17 16:00 97.5 107 19 157/76 100 Mechanical Ventilator 30 97.5 10/28/17 15:18 108 10/28/17 15:16 110 34 50 10/28/17 12:46 104 40 50 10/28/17 12:00 97.6 103 30 156/79 100 Mechanical Ventilator 30 97.6 10/28/17 11:47 109 10/28/17 11:13 50 10/28/17 10:30 98 38 50 10/28/17 09:03 85 157/83 10/28/17 08:57 85 31 30 10/28/17 08:00 97.5 100 22 157/83 94 Mechanical Ventilator 30 97.5 10/28/17 08:00 30 10/28/17 07:26 95 10/28/17 07:19 89 26 30 10/28/17 05:53 86 22 30 10/28/17 04:00 83 10/28/17 04:00 98.6 89 22 155/80 95 98.6 10/28/17 04:00 30 10/28/17 03:06 86 22 30 10/28/17 00:55 98 22 30 10/28/17 00:00 98.5 69 21 126/69 94 98.5 10/28/17 00:00 30 10/28/17 00:00 69 10/27/17 23:01 82 22 30 10/27/17 21:22 82 22 30 10/27/17 21:00 82 134/71 10/27/17 20:52 98.6 82 22 134/71 94 98.6 10/27/17 20:00 75 10/27/17 20:00 30 10/27/17 18:53 81 30 30 Intake and Output 10/27/17 10/28/17 19:00 07:00 Intake Total 1387.25 ml 1238 ml Output Total 300 ml 500 ml Balance 1087.25 ml 738 ml Free Water 100 ml 200 ml IV Total 831.25 ml 675 ml Tube Feeding 396 ml 363 ml Other 60 ml Output Urine Total 300 ml 500 ml # Voids 1 # Bowel Movements 1 1 Laboratory Tests 10/28/17 03:30: White Blood Count 11.7H, Red Blood Count 3.06L, Hemoglobin 9.9L, Hematocrit 28.2L, Mean Corpuscular Volume 92, Mean Corpuscular Hemoglobin 32.3H, Mean Corpuscular Hemoglobin Concent 35.1, Red Cell Distribution Width 17.3H, Platelet Count 182, Mean Platelet Volume 8.6, Neutrophils (%) (Auto) 76.3H, Lymphocytes (%) (Auto) 11.5L, Monocytes (%) (Auto) 6.3, Eosinophils (%) (Auto) 3.9H, Basophils (%) (Auto) 2.0, Sodium Level 137, Potassium Level 3.9, Chloride Level 105, Carbon Dioxide Level 26, Anion Gap 7, Blood Urea Nitrogen 23H, Creatinine 0.6, Estimat Glomerular Filtration Rate , Glucose Level 97, Calcium Level 8.4L, Phosphorus Level 2.5, Magnesium Level 1.9, Total Bilirubin 4.3H, Direct Bilirubin 3.4H, Aspartate Amino Transf (AST/SGOT) 101H, Alanine Aminotransferase (ALT/SGPT) 186H, Alkaline Phosphatase 2067H, Total Protein 6.6 , Albumin 1.6L, Globulin 5.0, Albumin/Globulin Ratio 0.3L Height (Feet): 5 Height (Inches): 5.00 Weight (Pounds): 75 Objective WDWN NCAT supple, (+) trach CTA RRR abd soft , (+) GT (+) LE edema opens eyes KHORRAMI,PAYMAN Oct 28, 2017 18:45
[2017-10-28 20:00] VITALS: BP 159/88
--- NOTE | 2017-10-28 23:27 | General Progress Note ---
Assessment/Plan Assessment/Plan #. Anemia due to underlying chronic disease. Continue to closely monitor. --> Hemoglobin goal is above 7. --> S/P blood transfusion. No adverse events. Transfuse if hemoglobin below goal. --> Occult blood detected. Consider GI recs. --> Transfuse as necessary #. Sepsis. --> Leukocytosis likely related to underlying pneumonia infection. --> Wbc count elevated. Improved and downtrended. --> On Iv antibiotics. Monitor for improvement. #. Coagulopathy - potentially related to DIC early onset, review hapto, inr repeat, fibrinogen, DIC panel --> INR improved --> S/P FFP and Vit K --> DW pulm Dr. Parekh --> Likely related to infection versus other cause. On antibiotics. --> Prophylaxis. #. Pancytopenia --> WBC count and platelet counts are within normal levels now. --> Hemoglobin levels downtrended. Transfuse if continues to drop. --> S/P Platelet transfusion --> Monitor and trend cbc daily. #. Thrombocytopenia, severe and progressive, acute onset, likely secondary to underlying infection, aspiration, hit was negative --> Duplex of the lower extremities is negative, therefore less likely HIT and other causes are more likely such as underlying infection. --> Platelets goal >20k, transfuse if necessary. --> On antibiotics as per ID --> Platelet count has been downtrending, monitor closely. #. Respiratory failure, vent dependent --> acute respiratory distress syndrome. --> S/P tracheostomy. Cont vent per pulmonary. --> ruled out for myocardial infarction #. Community-acquired pneumonia versus hospital-acquired. --> The patient on broad-spectrum antibiotics. --> Improved. --> Urine culture growing E. coli. Continue to closely monitor. #. Transaminitis. She has been seen by GI Service. Continue to closely monitor. #. Low-grade fever. Closely observe. #. Encephalopathy. Parkinson's Disease. #. Diabetes mellitus II. #. Tube feeding. #. Hypertension. --> BP currently normal. On cardizem #. Jaundice. Covering for Dr. Johnny Sinha Subjective Date patient seen: Oct 28, 2017 Constitutional: Denies: no symptoms, chills, diaphoresis, fever, malaise, weakness, other HEENT: Denies: no symptoms, eye pain, blurred vision, tearing, double vision, ear pain, ear discharge, nose pain, nose congestion, throat pain, throat swelling, mouth pain, mouth swelling, other Cardiovascular: Denies: no symptoms, chest pain, edema, irregular heart rate, lightheadedness, palpitations, syncope, other Respiratory: Denies: no symptoms, cough, orthopnea, shortness of breath, SOB with excertion, SOB at rest, sputum, stridor, wheezing, other Gastrointestinal/Abdominal: Denies: no symptoms, abdomen distended, abdominal pain, black stools, tarry stools, blood in stool, constipated, diarrhea, difficulty swallowing, nausea, poor appetite, poor fluid intake, rectal bleeding , vomiting, other Genitourinary: Denies: no symptoms, burning, discharge, frequency, flank pain, hematuria, incontinence, pain, urgency, other 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: Denies: no symptoms, anxiety, depressed, emotional problems, headache, numbness, paresthesia, pre-existing deficit, seizure, tingling, tremors, weakness, other Hematologic/Lymphatic: Reports: anemia Allergies: Coded Allergies: No Known Allergies (Verified , 11/18/08) Subjective On vent. Wbc improving. No new events. Objective Last 24 Hour Vital Signs Date Time Temp Pulse Resp B/P (MAP) Pulse Ox O2 Delivery O2 Flow Rate FiO2 10/28/17 21:30 100 34 35 10/28/17 20:45 102 159/88 10/28/17 20:00 97.6 102 31 159/88 94 Mechanical Ventilator 35 97.6 10/28/17 19:25 102 32 35 10/28/17 19:23 115 10/28/17 16:35 35 10/28/17 16:30 110 35 35 10/28/17 16:00 50 10/28/17 16:00 97.5 107 19 157/76 100 Mechanical Ventilator 30 97.5 10/28/17 15:18 108 10/28/17 15:16 110 34 50 10/28/17 12:46 104 40 50 10/28/17 12:00 97.6 103 30 156/79 100 Mechanical Ventilator 30 97.6 10/28/17 11:47 109 10/28/17 11:13 50 10/28/17 10:30 98 38 50 10/28/17 09:03 85 157/83 10/28/17 08:57 85 31 30 10/28/17 08:00 97.5 100 22 157/83 94 Mechanical Ventilator 30 97.5 10/28/17 08:00 30 10/28/17 07:26 95 10/28/17 07:19 89 26 30 10/28/17 05:53 86 22 30 10/28/17 04:00 83 10/28/17 04:00 98.6 89 22 155/80 95 98.6 10/28/17 04:00 30 10/28/17 03:06 86 22 30 10/28/17 00:55 98 22 30 10/28/17 00:00 98.5 69 21 126/69 94 98.5 10/28/17 00:00 30 10/28/17 00:00 69 Intake and Output 10/27/17 10/28/17 19:00 07:00 Intake Total 1387.25 ml 1271 ml Output Total 300 ml 500 ml Balance 1087.25 ml 771 ml Free Water 100 ml 200 ml IV Total 831.25 ml 675 ml Tube Feeding 396 ml 396 ml Other 60 ml Output Urine Total 300 ml 500 ml # Voids 1 # Bowel Movements 1 1 Laboratory Tests 10/28/17 03:30: White Blood Count 11.7H, Red Blood Count 3.06L, Hemoglobin 9.9L, Hematocrit 28.2L, Mean Corpuscular Volume 92, Mean Corpuscular Hemoglobin 32.3H, Mean Corpuscular Hemoglobin Concent 35.1, Red Cell Distribution Width 17.3H, Platelet Count 182, Mean Platelet Volume 8.6, Neutrophils (%) (Auto) 76.3H, Lymphocytes (%) (Auto) 11.5L, Monocytes (%) (Auto) 6.3, Eosinophils (%) (Auto) 3.9H, Basophils (%) (Auto) 2.0, Sodium Level 137, Potassium Level 3.9, Chloride Level 105, Carbon Dioxide Level 26, Anion Gap 7, Blood Urea Nitrogen 23H, Creatinine 0.6, Estimat Glomerular Filtration Rate , Glucose Level 97, Calcium Level 8.4L, Phosphorus Level 2.5, Magnesium Level 1.9, Total Bilirubin 4.3H, Direct Bilirubin 3.4H, Aspartate Amino Transf (AST/SGOT) 101H, Alanine Aminotransferase (ALT/SGPT) 186H, Alkaline Phosphatase 2067H, Total Protein 6.6 , Albumin 1.6L, Globulin 5.0, Albumin/Globulin Ratio 0.3L Height (Feet): 5 Height (Inches): 5.00 Weight (Pounds): 75 General Appearance: confused Respiratory/Chest: decreased breath sounds JOHN SINHA Oct 28, 2017 23:27
[2017-10-29] VITALS: BP 144/71
[2017-10-29 04:00] VITALS: BP 148/70
[2017-10-29] MEDS: NovoLOG Insulin Flexpen SUBQ SCH ×3 (05:51→18:00)
[2017-10-29 07:06] LABS: BASOPHILS % (AUTO) 1.7 % (0.0-2.0); EOSINOPHILS % (AUTO) 3.6 % (0.0-3.0); HEMATOCRIT 30.9 % (37.0-47.0); HEMOGLOBIN 10.4 G/DL (12.0-16.0); LYMPHOCYTES % (AUTO) 7.4 % (20.0-45.0); MEAN CORPUSCULAR VOLUME 95 FL (80-99); MONOCYTES % (AUTO) 8.7 % (1.0-10.0); NEUTROPHILS % (AUTO) 78.7 % (45.0-75.0); PLATELET COUNT 200 K/UL (150-450); RED BLOOD COUNT 3.25 M/UL (4.20-5.40); RED CELL DISTRIBUTION WIDTH 17.8 % (11.6-14.8); WHITE BLOOD COUNT 12.5 K/UL (4.8-10.8)
[2017-10-29 07:12] LABS: ALANINE AMINOTRANSFERASE 145 U/L (12-78); ALBUMIN 1.5 G/DL (3.4-5.0); ALBUMIN/GLOBULIN RATIO 0.3 (1.0-2.7); ALKALINE PHOSPHATASE 1901 U/L (46-116); ANION GAP 5 mmol/L (5-15); ASPARTATE AMINO TRANSFERASE 85 U/L (15-37); BILIRUBIN,TOTAL 3.3 MG/DL (0.2-1.0); BLOOD UREA NITROGEN 17 mg/dL (7-18); CALCIUM 8.5 MG/DL (8.5-10.1); CARBON DIOXIDE 28 MMOL/L (21-32); CHLORIDE 105 MMOL/L (98-107); CREATININE 0.5 MG/DL (0.55-1.30); PHOSPHORUS 2.9 MG/DL (2.5-4.9); POTASSIUM 3.7 MMOL/L (3.5-5.1); SODIUM 138 MMOL/L (136-145)
[2017-10-29 07:15] LABS: BILIRUBIN,DIRECT 2.8 MG/DL (0.0-0.3)
[2017-10-29 08:00] VITALS: BP 149/79
[2017-10-29] MEDS: dilTIAZem HCl 30mg tab GT SCH (09:54)
--- NOTE | 2017-10-29 09:55 | Pulmonology Progress Note ---
Assessment/Plan Problems: (1) ARDS (adult respiratory distress syndrome) (2) Sepsis (3) Coagulopathy (4) Aspiration pneumonia (5) Cholangitis (6) Diabetes mellitus, type II (7) Protein-calorie malnutrition, severe (8) Parkinsons disease Assessment/Plan bilirubin declined to 3 liver enzymes slightly less still on fio2 of 35% decrease TV to 400 tolerating feeding titrate vent settings accordingly dvt prophylaxis liver biopsy results non specific dc to subacute today Subjective ROS Limited/Unobtainable: No Interval Events: on vent Allergies: Coded Allergies: No Known Allergies (Verified , 11/18/08) Objective Last 24 Hour Vital Signs Date Time Temp Pulse Resp B/P (MAP) Pulse Ox O2 Delivery O2 Flow Rate FiO2 10/29/17 09:10 87 26 35 10/29/17 08:05 35 10/29/17 06:41 89 24 35 10/29/17 04:53 91 32 35 10/29/17 04:08 94 10/29/17 04:00 98.5 88 35 148/70 98 Mechanical Ventilator 35 98.5 10/29/17 04:00 35 10/29/17 03:20 100 35 35 10/29/17 01:30 93 37 35 10/29/17 00:00 98.2 84 36 144/71 97 Mechanical Ventilator 35 98.2 10/29/17 00:00 35 10/28/17 23:51 89 10/28/17 23:30 100 36 35 10/28/17 21:30 100 34 35 10/28/17 20:45 102 159/88 10/28/17 20:00 97.6 102 31 159/88 94 Mechanical Ventilator 35 97.6 10/28/17 19:25 102 32 35 10/28/17 19:23 115 10/28/17 16:35 35 10/28/17 16:30 110 35 35 10/28/17 16:00 50 10/28/17 16:00 97.5 107 19 157/76 100 Mechanical Ventilator 30 97.5 10/28/17 15:18 108 10/28/17 15:16 110 34 50 10/28/17 12:46 104 40 50 10/28/17 12:00 97.6 103 30 156/79 100 Mechanical Ventilator 30 97.6 10/28/17 11:47 109 10/28/17 11:13 50 10/28/17 10:30 98 38 50 Intake and Output 10/28/17 10/29/17 19:00 07:00 Intake Total 1393.5 ml 1511 ml Output Total 500 ml 800 ml Balance 893.5 ml 711 ml Intake Oral 0 ml Free Water 100 ml 100 ml IV Total 837.5 ml 955 ml Tube Feeding 396 ml 396 ml Other 60 ml 60 ml Output Urine Total 500 ml 800 ml # Bowel Movements 2 2 General Appearance: cachetic HEENT: normocephalic, atraumatic Respiratory/Chest: chest wall non-tender, lungs clear Breasts: no masses Cardiovascular: normal peripheral pulses, normal rate Abdomen: normal bowel sounds, soft, non tender Genitourinary: normal external genitalia Extremities: no clubbing Skin: no rash, no ulcers Laboratory Tests 10/29/17 05:50: White Blood Count 12.5H, Red Blood Count 3.25L, Hemoglobin 10.4L, Hematocrit 30.9L, Mean Corpuscular Volume 95, Mean Corpuscular Hemoglobin 31.8H, Mean Corpuscular Hemoglobin Concent 33.5, Red Cell Distribution Width 17.8H, Platelet Count 200, Mean Platelet Volume 8.3, Neutrophils (%) (Auto) 78.7H, Lymphocytes (%) (Auto) 7.4L, Monocytes (%) (Auto) 8.7, Eosinophils (%) (Auto) 3.6H, Basophils (%) (Auto) 1.7, Prothrombin Time 10.2, Prothromb Time International Ratio 1.0, Activated Partial Thromboplast Time 28, Sodium Level 138, Potassium Level 3.7, Chloride Level 105, Carbon Dioxide Level 28, Anion Gap 5, Blood Urea Nitrogen 17, Creatinine 0.5L, Estimat Glomerular Filtration Rate , Glucose Level 152H, Calcium Level 8.5, Phosphorus Level 2.9, Magnesium Level 1.7L, Total Bilirubin 3.3H, Direct Bilirubin 2.8H, Aspartate Amino Transf (AST/SGOT) 85H, Alanine Aminotransferase (ALT/SGPT) 145H, Alkaline Phosphatase 1901H, Total Protein 6.7, Albumin 1.5L, Globulin 5.2, Albumin/Globulin Ratio 0.3L Current Medications Medications (Trade) Dose Ordered Sig/Hermes Route PRN Reason Start Time Stop Time Status Last Admin Dose Admin Acetaminophen (Tylenol) 650 mg Q6H PRN NG Pain Scale (3-5) 10/25/17 14:45 11/24/17 14:44 10/25/17 14:45 Clotrimazole (Lotrimin) 1 applic EVERY 12 HOURS TOPIC 10/14/17 21:00 11/09/17 22:59 10/28/17 21:14 Dextrose (Dextrose 50%) 25 ml STAT PRN IV Hypoglycemia 10/18/17 08:30 11/17/17 08:29 Dextrose (Dextrose 50%) 50 ml STAT PRN IV Hypoglycemia 10/18/17 08:30 11/17/17 08:29 Dextrose/Sodium Chloride 1,000 ml @ 75 mls/hr [id number] IV 10/24/17 11:30 11/23/17 11:29 10/28/17 22:01 Diltiazem HCl (Cardizem) 30 mg EVERY 12 HOURS GT 10/27/17 21:00 11/10/17 08:59 10/28/17 20:45 Insulin Aspart (NovoLOG) Q6HR SUBQ 10/18/17 12:00 11/17/17 11:59 10/29/17 05:51 Meropenem 1 gm/ Sodium Chloride 55 ml @ 110 mls/hr Q12HR IVPB 10/28/17 09:00 11/02/17 08:59 10/28/17 21:06 Tayler Liu MD Oct 29, 2017 09:55
[2017-10-29] MEDS: Meropenem 1 GM in NS 55 ML IVPB SCH (09:56)
--- NOTE | 2017-10-29 10:36 | Infectious Diseases Prog Note ---
Assessment/Plan Assessment/Plan The patient is a 76-year-old female w 10/20 BCx : 07/16 CoNS ( m/l Contaminant, no Ctr line ) Fever , SP Leukocytosis, SP Cholangitis, Abnormal liver function tests, ALP>>> AST - improving CT: subcentimeter low-attenuation hepatic lesions are too small to characterize, most likely benign simple cysts or bile hamartomas SP liver Bx 10/24 :PAth : P ( CMV stain negative per prelim report ) -SP ERCP 10/22 choledocholithiasis -s/p ERCP 10/08: Intraoperative images demonstrate faint opacification of the common bile duct, and placement of a new plastic endobiliary stent. What may be a previous malpositioned biliary stent is seen to the left of the endoscope -s/p ERCP with stent placement 10/01 -EUS 09/30: 1. Dilated common bile duct with lots of sludge in the distal common bile duct, most probably explanation for abnormal liver function tests. Large ascites Hep panel : neg Community-acquired vs healthcare-associated pneumonia, s/p RX 10/13 SP Fiberoptic bronchoscopy, bronchoalveolar lavage, upper airway endoscopy for percutaneous tracheostomy, bronchoscopy through tracheostomy BAL : Laila an Nl devon , AFB : Neg Viral Cx : NegTD -CT chest 10/07: Extensive diffuse bilateral pulmonary parenchymal disease, slightly worse than on prior exam of 09/23/2017. Main differential considerations include pneumonia, ARDS, pulmonary edema, among multiple other possibilities. Bilateral moderate to large pleural effusions, slightly increased in size from 09/23/2017. Nasogastric and endotracheal tubes in good position. Evidence of generalized anasarca, with diffuse subcutaneous soft tissue edema. Probable influenza, SP Rx despite of negative influenza screening Probable UTI UCx : E coli , s/p Rx Crypt Ag : neg Elevated RF, CCP- ?RA -SHYANNE neg VZV IgM _, IGG + CMV PCR + ( doubt any significance ) MTB PCR : Neg VDRF / ARDS HTN GERD History of auditory hallucination. Depression. Anemia. Rheumatoid arthritis. History of gastritis. PLAN: Merrem d# 4 / 5-7 ( Empirically ) 10/26 IV Zosyn d # 5 10/24 IV Vanco d# 5 - 10/11 SP Ertapenem #7/7 10/09 SP MIcafungin #10 10/02 SP Amikacin #10 09/30 SP Flagyl #8 09/25 sp Fluconazole #3 (held due to rise ALP) 09/23 SP Meropenem #5, PO Vanco #2 09/21 SP tamiflu #10 -f/u AFB cultures ( BAL) : P Monitor CBC.; Monitor BMP.; Trend LFTs Monitor chest x-ray -GI, heme onc f/u - liver Bx 10/24 :Path : P Subjective Allergies: Coded Allergies: No Known Allergies (Verified , 11/18/08) Subjective no new complain Objective Vital Signs Last 24 Hour Vital Signs Date Time Temp Pulse Resp B/P (MAP) Pulse Ox O2 Delivery O2 Flow Rate FiO2 10/29/17 09:54 100 149/79 10/29/17 09:10 87 26 35 10/29/17 08:05 35 10/29/17 06:41 89 24 35 10/29/17 04:53 91 32 35 10/29/17 04:08 94 10/29/17 04:00 98.5 88 35 148/70 98 Mechanical Ventilator 35 98.5 10/29/17 04:00 35 10/29/17 03:20 100 35 35 10/29/17 01:30 93 37 35 10/29/17 00:00 98.2 84 36 144/71 97 Mechanical Ventilator 35 98.2 10/29/17 00:00 35 10/28/17 23:51 89 10/28/17 23:30 100 36 35 10/28/17 21:30 100 34 35 10/28/17 20:45 102 159/88 10/28/17 20:00 97.6 102 31 159/88 94 Mechanical Ventilator 35 97.6 10/28/17 19:25 102 32 35 10/28/17 19:23 115 10/28/17 16:35 35 10/28/17 16:30 110 35 35 10/28/17 16:00 50 10/28/17 16:00 97.5 107 19 157/76 100 Mechanical Ventilator 30 97.5 10/28/17 15:18 108 10/28/17 15:16 110 34 50 10/28/17 12:46 104 40 50 10/28/17 12:00 97.6 103 30 156/79 100 Mechanical Ventilator 30 97.6 10/28/17 11:47 109 10/28/17 11:13 50 Height (Feet): 5 Height (Inches): 5.00 Weight (Pounds): 78 HEENT: mucous membranes moist Respiratory/Chest: no respiratory distress Cardiovascular: regular rhythm Abdomen: soft, non tender Laboratory Tests Test 10/29/17 05:50 White Blood Count 12.5 K/UL (4.8-10.8) H Red Blood Count 3.25 M/UL (4.20-5.40) L Hemoglobin 10.4 G/DL (12.0-16.0) L Hematocrit 30.9 % (37.0-47.0) L Mean Corpuscular Volume 95 FL (80-99) Mean Corpuscular Hemoglobin 31.8 PG (27.0-31.0) H Mean Corpuscular Hemoglobin Concent 33.5 G/DL (32.0-36.0) Red Cell Distribution Width 17.8 % (11.6-14.8) H Platelet Count 200 K/UL (150-450) Mean Platelet Volume 8.3 FL (6.5-10.1) Neutrophils (%) (Auto) 78.7 % (45.0-75.0) H Lymphocytes (%) (Auto) 7.4 % (20.0-45.0) L Monocytes (%) (Auto) 8.7 % (1.0-10.0) Eosinophils (%) (Auto) 3.6 % (0.0-3.0) H Basophils (%) (Auto) 1.7 % (0.0-2.0) Prothrombin Time 10.2 SEC (9.30-11.50) Prothromb Time International Ratio 1.0 (0.9-1.1) Activated Partial Thromboplast Time 28 SEC (23-33) Sodium Level 138 MMOL/L (136-145) Potassium Level 3.7 MMOL/L (3.5-5.1) Chloride Level 105 MMOL/L (98-107) Carbon Dioxide Level 28 MMOL/L (21-32) Anion Gap 5 mmol/L (5-15) Blood Urea Nitrogen 17 mg/dL (7-18) Creatinine 0.5 MG/DL (0.55-1.30) L Estimat Glomerular Filtration Rate mL/min (>60) Glucose Level 152 MG/DL (74-106) H Calcium Level 8.5 MG/DL (8.5-10.1) Phosphorus Level 2.9 MG/DL (2.5-4.9) Magnesium Level 1.7 MG/DL (1.8-2.4) L Total Bilirubin 3.3 MG/DL (0.2-1.0) H Direct Bilirubin 2.8 MG/DL (0.0-0.3) H Aspartate Amino Transf (AST/SGOT) 85 U/L (15-37) H Alanine Aminotransferase (ALT/SGPT) 145 U/L (12-78) H Alkaline Phosphatase 1901 U/L (46-116) H Total Protein 6.7 G/DL (6.4-8.2) Albumin 1.5 G/DL (3.4-5.0) L Globulin 5.2 g/dL Albumin/Globulin Ratio 0.3 (1.0-2.7) L Current Medications Medications (Trade) Dose Ordered Sig/Hermes Route PRN Reason Start Time Stop Time Status Last Admin Dose Admin Acetaminophen (Tylenol) 650 mg Q6H PRN NG Pain Scale (3-5) 10/25/17 14:45 11/24/17 14:44 10/25/17 14:45 Clotrimazole (Lotrimin) 1 applic EVERY 12 HOURS TOPIC 10/14/17 21:00 11/09/17 22:59 10/29/17 09:56 Dextrose (Dextrose 50%) 25 ml STAT PRN IV Hypoglycemia 10/18/17 08:30 11/17/17 08:29 Dextrose (Dextrose 50%) 50 ml STAT PRN IV Hypoglycemia 10/18/17 08:30 11/17/17 08:29 Dextrose/Sodium Chloride 1,000 ml @ 75 mls/hr [id number] IV 10/24/17 11:30 11/23/17 11:29 10/28/17 22:01 Diltiazem HCl (Cardizem) 30 mg EVERY 12 HOURS GT 10/27/17 21:00 11/10/17 08:59 10/29/17 09:54 Insulin Aspart (NovoLOG) Q6HR SUBQ 10/18/17 12:00 11/17/17 11:59 10/29/17 05:51 Meropenem 1 gm/ Sodium Chloride 55 ml @ 110 mls/hr Q12HR IVPB 10/28/17 09:00 11/02/17 08:59 10/29/17 09:56 Edis Hunter MD Oct 29, 2017 10:36
--- NOTE | 2017-10-29 10:57 | Nephrology Progress Note ---
Assessment/Plan Problem List: (1) ARDS (adult respiratory distress syndrome) (2) Electrolyte imbalance (3) Thrombocytopenia Assessment improving leukocytosis (1) ARDS (adult respiratory distress syndrome) s/p Trach (2) Aspiration pneumonia (3) Protein-calorie malnutrition, severe (4) Diabetes mellitus (5) Anemia , aplastic by history (6) DM (7) UTI (8) Electrolyte imbalance (9) HTN (10) Depression (11) RA . Plan stable from renal stand - had trach and PEG water via NGT Adjust BP meds K and Phos supplement as needed Monitor renal parameters and urine output avoid nephrotoxics per orders discussed with RN Left ventricular ejection fraction estimated to be 55 %. Subjective ROS Limited/Unobtainable: Yes Objective Objective Last 24 Hour Vital Signs Date Time Temp Pulse Resp B/P (MAP) Pulse Ox O2 Delivery O2 Flow Rate FiO2 10/29/17 10:31 91 29 35 10/29/17 09:54 100 149/79 10/29/17 09:10 87 26 35 10/29/17 08:05 35 10/29/17 08:00 98.2 100 35 149/79 99 Mechanical Ventilator 35 98.2 10/29/17 08:00 97 10/29/17 06:41 89 24 35 10/29/17 04:53 91 32 35 10/29/17 04:08 94 10/29/17 04:00 98.5 88 35 148/70 98 Mechanical Ventilator 35 98.5 10/29/17 04:00 35 10/29/17 03:20 100 35 35 10/29/17 01:30 93 37 35 10/29/17 00:00 98.2 84 36 144/71 97 Mechanical Ventilator 35 98.2 10/29/17 00:00 35 10/28/17 23:51 89 10/28/17 23:30 100 36 35 10/28/17 21:30 100 34 35 10/28/17 20:45 102 159/88 10/28/17 20:00 97.6 102 31 159/88 94 Mechanical Ventilator 35 97.6 10/28/17 19:25 102 32 35 10/28/17 19:23 115 10/28/17 16:35 35 10/28/17 16:30 110 35 35 10/28/17 16:00 50 10/28/17 16:00 97.5 107 19 157/76 100 Mechanical Ventilator 30 97.5 10/28/17 15:18 108 10/28/17 15:16 110 34 50 10/28/17 12:46 104 40 50 10/28/17 12:00 97.6 103 30 156/79 100 Mechanical Ventilator 30 97.6 10/28/17 11:47 109 10/28/17 11:13 50 Intake and Output 10/28/17 10/29/17 19:00 07:00 Intake Total 1393.5 ml 1511 ml Output Total 500 ml 800 ml Balance 893.5 ml 711 ml Intake Oral 0 ml Free Water 100 ml 100 ml IV Total 837.5 ml 955 ml Tube Feeding 396 ml 396 ml Other 60 ml 60 ml Output Urine Total 500 ml 800 ml # Bowel Movements 2 2 Laboratory Tests 10/29/17 05:50: White Blood Count 12.5H, Red Blood Count 3.25L, Hemoglobin 10.4L, Hematocrit 30.9L, Mean Corpuscular Volume 95, Mean Corpuscular Hemoglobin 31.8H, Mean Corpuscular Hemoglobin Concent 33.5, Red Cell Distribution Width 17.8H, Platelet Count 200, Mean Platelet Volume 8.3, Neutrophils (%) (Auto) 78.7H, Lymphocytes (%) (Auto) 7.4L, Monocytes (%) (Auto) 8.7, Eosinophils (%) (Auto) 3.6H, Basophils (%) (Auto) 1.7, Prothrombin Time 10.2, Prothromb Time International Ratio 1.0, Activated Partial Thromboplast Time 28, Sodium Level 138, Potassium Level 3.7, Chloride Level 105, Carbon Dioxide Level 28, Anion Gap 5, Blood Urea Nitrogen 17, Creatinine 0.5L, Estimat Glomerular Filtration Rate , Glucose Level 152H, Calcium Level 8.5, Phosphorus Level 2.9, Magnesium Level 1.7L, Total Bilirubin 3.3H, Direct Bilirubin 2.8H, Aspartate Amino Transf (AST/SGOT) 85H, Alanine Aminotransferase (ALT/SGPT) 145H, Alkaline Phosphatase 1901H, Total Protein 6.7, Albumin 1.5L, Globulin 5.2, Albumin/Globulin Ratio 0.3L Height (Feet): 5 Height (Inches): 5.00 Weight (Pounds): 78 General Appearance: no apparent distress Objective no change YAEL HANSEN Oct 29, 2017 10:57
[2017-10-29 12:00] VITALS: BP 149/86
[2017-10-29] MEDS: D5 1/2NS 1,000 ML IV SCH (12:16)
--- NOTE | 2017-10-29 13:32 | Cardiac Electrophysiology PN ---
Assessment/Plan Assessment/Plan 1. Vent dependent Respiratory failure S/P Tracheostomy. On Abx EF normal and no myocardial infarction. 2. Left bundle-branch block. No evidence of more advanced heart block or bradycardia 3. HTN and diastolic dysfunction. Echo EF 55% On Cardizem 30 BID 4. Hypernatremia and Azotemia. F/U per Dr. Mayer 5. Pneumonia and sepsis on IV antibiotics by Dr. Hunter. WBC down to 9K 6. Psychiatric disorder. 7. Anasarca. 3rd spacing. 8. Anemia with Hb 6.6 s/p PRBC. CT chest abdomen and pelvis without contrast no acute finding S/P EGD by Dr Walton. S/P PEG 10/16/17 9. Severe thrombocytopenia. S/P platelet transfusion 10. Abnormal LFT, Biliary obstruction, possible cholangitis. S/P ERCP. CBD sludge. S/P repeat ERCP and stent by Dr. Walton Bilirubin 6.8 and Alk Phos more than 2400s S/P Repeat ERCP 10/22/[address] Walton 11. High INR likely due to hepatic failure. S/P FFP and Vit K. MICHELLE RN Subjective Subjective Comfortable on Vent. Objective Last 24 Hour Vital Signs Date Time Temp Pulse Resp B/P (MAP) Pulse Ox O2 Delivery O2 Flow Rate FiO2 10/29/17 12:00 35 10/29/17 10:31 91 29 35 10/29/17 09:54 100 149/79 10/29/17 09:10 87 26 35 10/29/17 08:05 35 10/29/17 08:00 98.2 100 35 149/79 99 Mechanical Ventilator 35 98.2 10/29/17 08:00 97 10/29/17 06:41 89 24 35 10/29/17 04:53 91 32 35 10/29/17 04:08 94 10/29/17 04:00 98.5 88 35 148/70 98 Mechanical Ventilator 35 98.5 10/29/17 04:00 35 10/29/17 03:20 100 35 35 10/29/17 01:30 93 37 35 10/29/17 00:00 98.2 84 36 144/71 97 Mechanical Ventilator 35 98.2 10/29/17 00:00 35 10/28/17 23:51 89 10/28/17 23:30 100 36 35 10/28/17 21:30 100 34 35 10/28/17 20:45 102 159/88 10/28/17 20:00 97.6 102 31 159/88 94 Mechanical Ventilator 35 97.6 10/28/17 19:25 102 32 35 10/28/17 19:23 115 10/28/17 16:35 35 10/28/17 16:30 110 35 35 10/28/17 16:00 50 10/28/17 16:00 97.5 107 19 157/76 100 Mechanical Ventilator 30 97.5 10/28/17 15:18 108 10/28/17 15:16 110 34 50 Intake and Output 10/28/17 10/29/17 19:00 07:00 Intake Total 1393.5 ml 1511 ml Output Total 500 ml 800 ml Balance 893.5 ml 711 ml Intake Oral 0 ml Free Water 100 ml 100 ml IV Total 837.5 ml 955 ml Tube Feeding 396 ml 396 ml Other 60 ml 60 ml Output Urine Total 500 ml 800 ml # Bowel Movements 2 2 Laboratory Tests Test 10/29/17 05:50 White Blood Count 12.5 K/UL (4.8-10.8) H Red Blood Count 3.25 M/UL (4.20-5.40) L Hemoglobin 10.4 G/DL (12.0-16.0) L Hematocrit 30.9 % (37.0-47.0) L Mean Corpuscular Volume 95 FL (80-99) Mean Corpuscular Hemoglobin 31.8 PG (27.0-31.0) H Mean Corpuscular Hemoglobin Concent 33.5 G/DL (32.0-36.0) Red Cell Distribution Width 17.8 % (11.6-14.8) H Platelet Count 200 K/UL (150-450) Mean Platelet Volume 8.3 FL (6.5-10.1) Neutrophils (%) (Auto) 78.7 % (45.0-75.0) H Lymphocytes (%) (Auto) 7.4 % (20.0-45.0) L Monocytes (%) (Auto) 8.7 % (1.0-10.0) Eosinophils (%) (Auto) 3.6 % (0.0-3.0) H Basophils (%) (Auto) 1.7 % (0.0-2.0) Prothrombin Time 10.2 SEC (9.30-11.50) Prothromb Time International Ratio 1.0 (0.9-1.1) Activated Partial Thromboplast Time 28 SEC (23-33) Sodium Level 138 MMOL/L (136-145) Potassium Level 3.7 MMOL/L (3.5-5.1) Chloride Level 105 MMOL/L (98-107) Carbon Dioxide Level 28 MMOL/L (21-32) Anion Gap 5 mmol/L (5-15) Blood Urea Nitrogen 17 mg/dL (7-18) Creatinine 0.5 MG/DL (0.55-1.30) L Estimat Glomerular Filtration Rate mL/min (>60) Glucose Level 152 MG/DL (74-106) H Calcium Level 8.5 MG/DL (8.5-10.1) Phosphorus Level 2.9 MG/DL (2.5-4.9) Magnesium Level 1.7 MG/DL (1.8-2.4) L Total Bilirubin 3.3 MG/DL (0.2-1.0) H Direct Bilirubin 2.8 MG/DL (0.0-0.3) H Aspartate Amino Transf (AST/SGOT) 85 U/L (15-37) H Alanine Aminotransferase (ALT/SGPT) 145 U/L (12-78) H Alkaline Phosphatase 1901 U/L (46-116) H Total Protein 6.7 G/DL (6.4-8.2) Albumin 1.5 G/DL (3.4-5.0) L Globulin 5.2 g/dL Albumin/Globulin Ratio 0.3 (1.0-2.7) L Objective HEAD AND NECK: Tracheostomy in place LUNGS: Coarse rhonchi bilaterally CARDIOVASCULAR: Tachy S1 and S2.No murmur ABDOMEN: Soft. PEG in place EXTREMITIES: No edema. Charlie Darnell MD Oct 29, 2017 13:32
[2017-10-29 16:00] VITALS: BP 138/81
[2017-10-29] MEDS ORDERED: Morphine Sulfate 4mg/ml Inj IVP PRN (16:15)
--- NOTE | 2017-10-29 16:40 | Diagnostic Imaging Report ---
Indication: Abnormal alkaline phosphatase Technique: Informed consent obtained prior to commencement of the procedure. Risks, including but not limited to hemorrhage, infection, sampling error discussed with patient's brother, all questions answered. Procedure performed at bedside. Ultrasound used to localize the optimal puncture site in the right hepatic lobe. Sterile prepping and draping. Local anesthesia with one percent lidocaine. Under real-time ultrasound guidance, total two needle passes made into the right hepatic lobe using 18-gauge automated biopsy gun. Specimens placed in formalin, submitted to pathology. The patient tolerated the procedure well, without immediate complication. Comparison: none. Findings: Intraprocedural images confirm needle placement within the right hepatic lobe Impression: Apparently successful ultrasound-guided liver biopsy, for parenchymal disease, as described. Per discussion with pathologist, pathology shows cholestatic hepatitis. This is concordant with imaging findings
--- NOTE | 2017-10-29 18:26 | Internal Med Progress Note ---
Subjective Date of Service: Oct 29, 2017 Physician Name Sina Bowens Attending Physician Jesus Barahona MD Current Medications Medications (Trade) Dose Ordered Sig/Hermes Route PRN Reason Start Time Stop Time Status Last Admin Dose Admin Acetaminophen (Tylenol) 650 mg Q6H PRN NG Pain Scale (3-5) 10/25/17 14:45 11/24/17 14:44 10/25/17 14:45 Clotrimazole (Lotrimin) 1 applic EVERY 12 HOURS TOPIC 10/14/17 21:00 11/09/17 22:59 10/29/17 09:56 Dextrose (Dextrose 50%) 25 ml STAT PRN IV Hypoglycemia 10/18/17 08:30 11/17/17 08:29 Dextrose (Dextrose 50%) 50 ml STAT PRN IV Hypoglycemia 10/18/17 08:30 11/17/17 08:29 Dextrose/Sodium Chloride 1,000 ml @ 75 mls/hr [id number] IV 10/24/17 11:30 11/23/17 11:29 10/29/17 12:16 Diltiazem HCl (Cardizem) 30 mg EVERY 12 HOURS GT 10/27/17 21:00 11/10/17 08:59 10/29/17 09:54 Insulin Aspart (NovoLOG) Q6HR SUBQ 10/18/17 12:00 11/17/17 11:59 10/29/17 12:16 Meropenem 1 gm/ Sodium Chloride 55 ml @ 110 mls/hr Q12HR IVPB 10/28/17 09:00 11/02/17 08:59 10/29/17 09:56 Morphine Sulfate (Morphine Sulfate) 2 mg Q4H PRN IVP Pain Scale 4-10 10/29/17 16:15 11/05/17 16:14 Allergies: Coded Allergies: No Known Allergies (Verified , 11/18/08) ROS Limited/Unobtainable: Yes Subjective 76 YO F admitted with Shortness of breath, now respiratory failure. Intubated and sedated. Cover for Internal Med-Dr. Barahona. RAJINDER . S/P ERCP 10/08/17. S/P Tracheostomy and bronchoscopy 10/13/17. More alert today. Await transfer to [facility] vs [facility] Objective Last Vital Signs Date Time Temp Pulse Resp B/P (MAP) Pulse Ox O2 Delivery O2 Flow Rate FiO2 10/29/17 17:30 96 35 35 10/29/17 16:00 97.4 138/81 95 Mechanical Ventilator 97.4 Laboratory Tests Test 10/29/17 05:50 White Blood Count 12.5 K/UL (4.8-10.8) H Red Blood Count 3.25 M/UL (4.20-5.40) L Hemoglobin 10.4 G/DL (12.0-16.0) L Hematocrit 30.9 % (37.0-47.0) L Mean Corpuscular Volume 95 FL (80-99) Mean Corpuscular Hemoglobin 31.8 PG (27.0-31.0) H Mean Corpuscular Hemoglobin Concent 33.5 G/DL (32.0-36.0) Red Cell Distribution Width 17.8 % (11.6-14.8) H Platelet Count 200 K/UL (150-450) Mean Platelet Volume 8.3 FL (6.5-10.1) Neutrophils (%) (Auto) 78.7 % (45.0-75.0) H Lymphocytes (%) (Auto) 7.4 % (20.0-45.0) L Monocytes (%) (Auto) 8.7 % (1.0-10.0) Eosinophils (%) (Auto) 3.6 % (0.0-3.0) H Basophils (%) (Auto) 1.7 % (0.0-2.0) Prothrombin Time 10.2 SEC (9.30-11.50) Prothromb Time International Ratio 1.0 (0.9-1.1) Activated Partial Thromboplast Time 28 SEC (23-33) Sodium Level 138 MMOL/L (136-145) Potassium Level 3.7 MMOL/L (3.5-5.1) Chloride Level 105 MMOL/L (98-107) Carbon Dioxide Level 28 MMOL/L (21-32) Anion Gap 5 mmol/L (5-15) Blood Urea Nitrogen 17 mg/dL (7-18) Creatinine 0.5 MG/DL (0.55-1.30) L Estimat Glomerular Filtration Rate mL/min (>60) Glucose Level 152 MG/DL (74-106) H Calcium Level 8.5 MG/DL (8.5-10.1) Phosphorus Level 2.9 MG/DL (2.5-4.9) Magnesium Level 1.7 MG/DL (1.8-2.4) L Total Bilirubin 3.3 MG/DL (0.2-1.0) H Direct Bilirubin 2.8 MG/DL (0.0-0.3) H Aspartate Amino Transf (AST/SGOT) 85 U/L (15-37) H Alanine Aminotransferase (ALT/SGPT) 145 U/L (12-78) H Alkaline Phosphatase 1901 U/L (46-116) H Total Protein 6.7 G/DL (6.4-8.2) Albumin 1.5 G/DL (3.4-5.0) L Globulin 5.2 g/dL Albumin/Globulin Ratio 0.3 (1.0-2.7) L Intake and Output 10/28/17 10/29/17 18:59 06:59 Intake Total 1393.5 ml 1511 ml Output Total 500 ml 800 ml Balance 893.5 ml 711 ml Intake Oral 0 ml Free Water 100 ml 100 ml IV Total 837.5 ml 955 ml Tube Feeding 396 ml 396 ml Other 60 ml 60 ml Output Urine Total 500 ml 800 ml # Bowel Movements 2 2 Objective General Appearance: lethargic, thin EENT: normal ENT inspection Neck: Trach; non-tender, normal alignment, supple Cardiovascular: normal peripheral pulses, normal rate, regular rhythm, no gallop/murmur, no JVD Respiratory/Chest: Mechanical vent; trach; ; respiratory distress, crackles/ rales, rhonchi - bilaterally, expiratory wheezing Abdomen: normal bowel sounds, non tender, soft, no organomegaly, no mass Skin: normal pigmentation, warm/dry Assessment/Plan Problem List: (1) HTN (hypertension) Assessment & Plan: Currently hypotensive. (2) Arthritis, rheumatoid (3) Parkinsons disease (4) Aplastic anemia (5) GERD (gastroesophageal reflux disease) (6) Respiratory failure Assessment & Plan: S/P Tracheostomy and broncholsopy 10/13/17. Cont vent per pulmonary (7) Pneumonia (8) Dyspnea (9) Sepsis Assessment & Plan: Blood culture neg. Continue meropenem and vancomycin per ID (10) ARDS (adult respiratory distress syndrome) Assessment & Plan: See pulmonary note (11) UTI (urinary tract infection) Assessment & Plan: E.Coli. Continue abx per ID (12) Anemia Assessment & Plan: S/P Transfusion 2 units PRBC 10/25/17 (13) Diabetes mellitus, type II Assessment & Plan: Continue novolog sliding scale (14) Leukocytosis Assessment & Plan: Continue meropenem and vancomycin- See ID note. (15) Thrombocytopenia (16) Gallbladder sludge Assessment & Plan: s/P ERCP 10/01, 10/07/17 and 10/08/17 (17) Coagulopathy Assessment & Plan: S/P FFP and Vit K Status: stable Assessment/Plan Discharge planning: [facility] vs [facility] fac SINA BOWENS Oct 29, 2017 18:26
--- NOTE | 2017-10-29 18:45 | General Progress Note ---
Assessment/Plan Problem List: (1) Arthritis, rheumatoid ICD Codes: M06.9 - Rheumatoid arthritis, unspecified SNOMED: 54461294 (2) Aspiration pneumonia ICD Codes: J69.0 - Pneumonitis due to inhalation of food and vomit SNOMED: 607954872 (3) Diabetes mellitus ICD Codes: E11.9 - Type 2 diabetes mellitus without complications SNOMED: 57928366 (4) ARDS (adult respiratory distress syndrome) ICD Codes: J80 - Acute respiratory distress syndrome SNOMED: 52721379 (5) Transaminitis ICD Codes: R74.0 - Nonspecific elevation of levels of transaminase and lactic acid dehydrogenase [LDH] SNOMED: 369113970, 874698876 (6) Dyspnea ICD Codes: R06.00 - Dyspnea, unspecified SNOMED: 357868239 (7) Parkinsons disease ICD Codes: G20 - Parkinson's disease SNOMED: 44860570 (8) Sepsis ICD Codes: A41.9 - Sepsis, unspecified organism SNOMED: 22616487 (9) GERD (gastroesophageal reflux disease) ICD Codes: K21.9 - Gastro-esophageal reflux disease without esophagitis SNOMED: 641434325 (10) Aplastic anemia ICD Codes: D61.9 - Aplastic anemia, unspecified SNOMED: 587740467 (11) Pneumonia ICD Codes: J18.9 - Pneumonia, unspecified organism SNOMED: 188974386 (12) HTN (hypertension) ICD Codes: I10 - Essential (primary) hypertension SNOMED: 03104052 Assessment/Plan Encephalopathy, agitation, psychotic disorder. -cont current meds -ativan prn Subjective Date patient seen: Oct 29, 2017 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: Reports: anxiety Allergies: Coded Allergies: No Known Allergies (Verified , 11/18/08) Subjective the pts mental condition was unchanged Objective Last 24 Hour Vital Signs Date Time Temp Pulse Resp B/P (MAP) Pulse Ox O2 Delivery O2 Flow Rate FiO2 10/29/17 17:30 96 35 35 10/29/17 16:04 95 35 35 10/29/17 16:00 95 10/29/17 16:00 35 10/29/17 16:00 97.4 102 38 138/81 95 Mechanical Ventilator 35 97.4 10/29/17 13:20 97 31 35 10/29/17 12:00 95 10/29/17 12:00 35 10/29/17 12:00 98.1 98 34 149/86 98 Mechanical Ventilator 35 98.1 10/29/17 10:31 91 29 35 10/29/17 09:54 100 149/79 10/29/17 09:10 87 26 35 10/29/17 08:05 35 10/29/17 08:00 98.2 100 35 149/79 99 Mechanical Ventilator 35 98.2 10/29/17 08:00 97 10/29/17 06:41 89 24 35 10/29/17 04:53 91 32 35 10/29/17 04:08 94 10/29/17 04:00 98.5 88 35 148/70 98 Mechanical Ventilator 35 98.5 10/29/17 04:00 35 10/29/17 03:20 100 35 35 10/29/17 01:30 93 37 35 10/29/17 00:00 98.2 84 36 144/71 97 Mechanical Ventilator 35 98.2 10/29/17 00:00 35 10/28/17 23:51 89 10/28/17 23:30 100 36 35 10/28/17 21:30 100 34 35 10/28/17 20:45 102 159/88 10/28/17 20:00 97.6 102 31 159/88 94 Mechanical Ventilator 35 97.6 10/28/17 19:25 102 32 35 10/28/17 19:23 115 Intake and Output 10/28/17 10/29/17 18:59 06:59 Intake Total 1393.5 ml 1511 ml Output Total 500 ml 800 ml Balance 893.5 ml 711 ml Intake Oral 0 ml Free Water 100 ml 100 ml IV Total 837.5 ml 955 ml Tube Feeding 396 ml 396 ml Other 60 ml 60 ml Output Urine Total 500 ml 800 ml # Bowel Movements 2 2 Laboratory Tests 10/29/17 05:50: White Blood Count 12.5H, Red Blood Count 3.25L, Hemoglobin 10.4L, Hematocrit 30.9L, Mean Corpuscular Volume 95, Mean Corpuscular Hemoglobin 31.8H, Mean Corpuscular Hemoglobin Concent 33.5, Red Cell Distribution Width 17.8H, Platelet Count 200, Mean Platelet Volume 8.3, Neutrophils (%) (Auto) 78.7H, Lymphocytes (%) (Auto) 7.4L, Monocytes (%) (Auto) 8.7, Eosinophils (%) (Auto) 3.6H, Basophils (%) (Auto) 1.7, Prothrombin Time 10.2, Prothromb Time International Ratio 1.0, Activated Partial Thromboplast Time 28, Sodium Level 138, Potassium Level 3.7, Chloride Level 105, Carbon Dioxide Level 28, Anion Gap 5, Blood Urea Nitrogen 17, Creatinine 0.5L, Estimat Glomerular Filtration Rate , Glucose Level 152H, Calcium Level 8.5, Phosphorus Level 2.9, Magnesium Level 1.7L, Total Bilirubin 3.3H, Direct Bilirubin 2.8H, Aspartate Amino Transf (AST/SGOT) 85H, Alanine Aminotransferase (ALT/SGPT) 145H, Alkaline Phosphatase 1901H, Total Protein 6.7, Albumin 1.5L, Globulin 5.2, Albumin/Globulin Ratio 0.3L Height (Feet): 5 Height (Inches): 5.00 Weight (Pounds): 78 Dary Nixon M.D. Oct 29, 2017 18:45
[2017-10-29] MEDS ORDERED: D5 1/2NS 1000ml IV ONE (19:24)
--- NOTE | 2017-10-29 20:26 | General Progress Note ---
Assessment/Plan Assessment/Plan Assessment - Resp failure / ARDS / PNA - s/p trach - Abnormal LFT, now on steady decline - Jaundice - improving - Anemia with OB (+) stools - Malnutrition - s/p PEG - AMS - improved - CMV PCR (+) --> liver biopsy CMV stain negative per prelim report Recommendations - follow labs / LFT daily - OK for discharge from GI standpoint - D/w patient Nephew - he needs to arrange for ERCP with stent removal in 2 months - transfuse PRN - Elevate HOB - Vent care Subjective Allergies: Coded Allergies: No Known Allergies (Verified , 11/18/08) Subjective Above noted awake and responsive for discharge today Objective Last 24 Hour Vital Signs Date Time Temp Pulse Resp B/P (MAP) Pulse Ox O2 Delivery O2 Flow Rate FiO2 10/29/17 19:07 97.4 10/29/17 17:30 96 35 35 10/29/17 16:04 95 35 35 10/29/17 16:00 95 10/29/17 16:00 35 10/29/17 16:00 97.4 102 38 138/81 95 Mechanical Ventilator 35 97.4 10/29/17 13:20 97 31 35 10/29/17 12:00 95 10/29/17 12:00 35 10/29/17 12:00 98.1 98 34 149/86 98 Mechanical Ventilator 35 98.1 10/29/17 10:31 91 29 35 10/29/17 09:54 100 149/79 10/29/17 09:10 87 26 35 10/29/17 08:05 35 10/29/17 08:00 98.2 100 35 149/79 99 Mechanical Ventilator 35 98.2 10/29/17 08:00 97 10/29/17 06:41 89 24 35 10/29/17 04:53 91 32 35 10/29/17 04:08 94 10/29/17 04:00 98.5 88 35 148/70 98 Mechanical Ventilator 35 98.5 10/29/17 04:00 35 10/29/17 03:20 100 35 35 10/29/17 01:30 93 37 35 10/29/17 00:00 98.2 84 36 144/71 97 Mechanical Ventilator 35 98.2 10/29/17 00:00 35 10/28/17 23:51 89 10/28/17 23:30 100 36 35 10/28/17 21:30 100 34 35 10/28/17 20:45 102 159/88 Intake and Output 10/28/17 10/29/17 19:00 07:00 Intake Total 1393.5 ml 1511 ml Output Total 500 ml 800 ml Balance 893.5 ml 711 ml Intake Oral 0 ml Free Water 100 ml 100 ml IV Total 837.5 ml 955 ml Tube Feeding 396 ml 396 ml Other 60 ml 60 ml Output Urine Total 500 ml 800 ml # Bowel Movements 2 2 Laboratory Tests 10/29/17 05:50: White Blood Count 12.5H, Red Blood Count 3.25L, Hemoglobin 10.4L, Hematocrit 30.9L, Mean Corpuscular Volume 95, Mean Corpuscular Hemoglobin 31.8H, Mean Corpuscular Hemoglobin Concent 33.5, Red Cell Distribution Width 17.8H, Platelet Count 200, Mean Platelet Volume 8.3, Neutrophils (%) (Auto) 78.7H, Lymphocytes (%) (Auto) 7.4L, Monocytes (%) (Auto) 8.7, Eosinophils (%) (Auto) 3.6H, Basophils (%) (Auto) 1.7, Prothrombin Time 10.2, Prothromb Time International Ratio 1.0, Activated Partial Thromboplast Time 28, Sodium Level 138, Potassium Level 3.7, Chloride Level 105, Carbon Dioxide Level 28, Anion Gap 5, Blood Urea Nitrogen 17, Creatinine 0.5L, Estimat Glomerular Filtration Rate , Glucose Level 152H, Calcium Level 8.5, Phosphorus Level 2.9, Magnesium Level 1.7L, Total Bilirubin 3.3H, Direct Bilirubin 2.8H, Aspartate Amino Transf (AST/SGOT) 85H, Alanine Aminotransferase (ALT/SGPT) 145H, Alkaline Phosphatase 1901H, Total Protein 6.7, Albumin 1.5L, Globulin 5.2, Albumin/Globulin Ratio 0.3L Height (Feet): 5 Height (Inches): 5.00 Weight (Pounds): 78 Objective WDWN NCAT supple, (+) trach CTA RRR abd soft , (+) GT (+) LE edema opens eyes ARNULFO DURON Oct 29, 2017 20:26
--- NOTE | 2017-10-29 22:29 | General Progress Note ---
Assessment/Plan Assessment/Plan #. Anemia due to underlying chronic disease. Continue to closely monitor. --> Hemoglobin goal is above 7. --> S/P blood transfusion. No adverse events. Transfuse if hemoglobin below goal. --> Occult blood detected. Consider GI recs. --> Transfuse as necessary #. Sepsis. --> Leukocytosis likely related to underlying pneumonia infection. --> Wbc count elevated. Improved and downtrended. --> On Iv antibiotics. Monitor for improvement. #. Coagulopathy - potentially related to DIC early onset, review hapto, inr repeat, fibrinogen, DIC panel --> INR improved --> S/P FFP and Vit K --> DW pulm Dr. Parekh --> Likely related to infection versus other cause. On antibiotics. --> Prophylaxis. #. Pancytopenia --> WBC count and platelet counts are within normal levels now. --> Hemoglobin levels downtrended. Transfuse if continues to drop. --> S/P Platelet transfusion --> Monitor and trend cbc daily. #. Thrombocytopenia, severe and progressive, acute onset, likely secondary to underlying infection, aspiration, hit was negative --> Duplex of the lower extremities is negative, therefore less likely HIT and other causes are more likely such as underlying infection. --> Platelets goal >20k, transfuse if necessary. --> On antibiotics as per ID --> Platelet count has been downtrending, monitor closely. #. Respiratory failure, vent dependent --> acute respiratory distress syndrome. --> S/P tracheostomy. Cont vent per pulmonary. --> ruled out for myocardial infarction #. Community-acquired pneumonia versus hospital-acquired. --> The patient on broad-spectrum antibiotics. --> Improved. --> Urine culture growing E. coli. Continue to closely monitor. #. Transaminitis. She has been seen by GI Service. Continue to closely monitor. #. Low-grade fever. Closely observe. #. Encephalopathy. Parkinson's Disease. #. Diabetes mellitus II. #. Tube feeding. #. Hypertension. --> BP currently normal. On cardizem #. Jaundice. Covering for Dr. Johnny Sinha Subjective Date patient seen: Oct 29, 2017 Constitutional: Denies: no symptoms, chills, diaphoresis, fever, malaise, weakness, other HEENT: Denies: no symptoms, eye pain, blurred vision, tearing, double vision, ear pain, ear discharge, nose pain, nose congestion, throat pain, throat swelling, mouth pain, mouth swelling, other Cardiovascular: Denies: no symptoms, chest pain, edema, irregular heart rate, lightheadedness, palpitations, syncope, other Respiratory: Denies: no symptoms, cough, orthopnea, shortness of breath, SOB with excertion, SOB at rest, sputum, stridor, wheezing, other Gastrointestinal/Abdominal: Denies: no symptoms, abdomen distended, abdominal pain, black stools, tarry stools, blood in stool, constipated, diarrhea, difficulty swallowing, nausea, poor appetite, poor fluid intake, rectal bleeding , vomiting, other Genitourinary: Denies: no symptoms, burning, discharge, frequency, flank pain, hematuria, incontinence, pain, urgency, other 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: Denies: no symptoms, anxiety, depressed, emotional problems, headache, numbness, paresthesia, pre-existing deficit, seizure, tingling, tremors, weakness, other Hematologic/Lymphatic: Reports: anemia Allergies: Coded Allergies: No Known Allergies (Verified , 11/18/08) Subjective On vent. Responsive. Pending Discharge today. Leukocytosis. Objective Last 24 Hour Vital Signs Date Time Temp Pulse Resp B/P (MAP) Pulse Ox O2 Delivery O2 Flow Rate FiO2 10/29/17 19:07 97.4 10/29/17 17:30 96 35 35 10/29/17 16:04 95 35 35 10/29/17 16:00 95 10/29/17 16:00 35 10/29/17 16:00 97.4 102 38 138/81 95 Mechanical Ventilator 35 97.4 10/29/17 13:20 97 31 35 10/29/17 12:00 95 10/29/17 12:00 35 10/29/17 12:00 98.1 98 34 149/86 98 Mechanical Ventilator 35 98.1 10/29/17 10:31 91 29 35 10/29/17 09:54 100 149/79 10/29/17 09:10 87 26 35 10/29/17 08:05 35 10/29/17 08:00 98.2 100 35 149/79 99 Mechanical Ventilator 35 98.2 10/29/17 08:00 97 10/29/17 06:41 89 24 35 10/29/17 04:53 91 32 35 10/29/17 04:08 94 10/29/17 04:00 98.5 88 35 148/70 98 Mechanical Ventilator 35 98.5 10/29/17 04:00 35 10/29/17 03:20 100 35 35 10/29/17 01:30 93 37 35 10/29/17 00:00 98.2 84 36 144/71 97 Mechanical Ventilator 35 98.2 10/29/17 00:00 35 10/28/17 23:51 89 10/28/17 23:30 100 36 35 Intake and Output 10/28/17 10/29/17 19:00 07:00 Intake Total 1393.5 ml 1511 ml Output Total 500 ml 800 ml Balance 893.5 ml 711 ml Intake Oral 0 ml Free Water 100 ml 100 ml IV Total 837.5 ml 955 ml Tube Feeding 396 ml 396 ml Other 60 ml 60 ml Output Urine Total 500 ml 800 ml # Bowel Movements 2 2 Laboratory Tests 10/29/17 05:50: White Blood Count 12.5H, Red Blood Count 3.25L, Hemoglobin 10.4L, Hematocrit 30.9L, Mean Corpuscular Volume 95, Mean Corpuscular Hemoglobin 31.8H, Mean Corpuscular Hemoglobin Concent 33.5, Red Cell Distribution Width 17.8H, Platelet Count 200, Mean Platelet Volume 8.3, Neutrophils (%) (Auto) 78.7H, Lymphocytes (%) (Auto) 7.4L, Monocytes (%) (Auto) 8.7, Eosinophils (%) (Auto) 3.6H, Basophils (%) (Auto) 1.7, Prothrombin Time 10.2, Prothromb Time International Ratio 1.0, Activated Partial Thromboplast Time 28, Sodium Level 138, Potassium Level 3.7, Chloride Level 105, Carbon Dioxide Level 28, Anion Gap 5, Blood Urea Nitrogen 17, Creatinine 0.5L, Estimat Glomerular Filtration Rate , Glucose Level 152H, Calcium Level 8.5, Phosphorus Level 2.9, Magnesium Level 1.7L, Total Bilirubin 3.3H, Direct Bilirubin 2.8H, Aspartate Amino Transf (AST/SGOT) 85H, Alanine Aminotransferase (ALT/SGPT) 145H, Alkaline Phosphatase 1901H, Total Protein 6.7, Albumin 1.5L, Globulin 5.2, Albumin/Globulin Ratio 0.3L Height (Feet): 5 Height (Inches): 5.00 Weight (Pounds): 78 General Appearance: no apparent distress Respiratory/Chest: decreased breath sounds Abdomen: non tender, soft JOHN SINHA Oct 29, 2017 22:29
--- NOTE | 2017-10-30 17:34 | Discharge Summary ---
Discharge Summary Discharge Summary Discharge Summary DATE OF ADMISSION: 09/11/2017 DATE OF DISCHARGE: 10/29/2017 CONSULTANTS: Dr. Dary Mcclendon,Elana Celis NP Oct 30, 2017 17:34
--- NOTE | 2017-10-31 16:48 | Discharge Summary ---
Discharge Summary Discharge Summary Discharge Summary DATE OF ADMISSION: 09/11/2017 DATE OF DISCHARGE: 10/29/2017 CONSULTANTS: Dr. Tayler Sinha BRIEF HOSPITAL COURSE: Patient is an unfortunate 77-year-old [place] female with past medical history significant for rheumatoid arthritis, osteoporosis, hypertension, anaplastic anemia, depression, and Parkinson's disease [facility] after progressively worsening shortness of breath. She was recently hospitalized at [facility] due to hallucination. She denied chest pain or abdominal pain, denied any suicidal or homicidal ideation. She had a history of auditory hallucination and depression. Shortly after evaluation at the emergency room, she was noted to be in respiratory failure and was started on BiPAP. Her 02 saturation was 80%. She was pancultured. Chest x-ray showed extensive bilateral airspace disease, pulmonary edema versus infiltrates. She was admitted to ICU for possible sepsis and community acquired pneumonia. He had negative influenza screening test. She had elevated liver function tests. She was started on vancomycin, Levaquin and Tamiflu and was followed by infectious disease specialist. She continued to have respiratory distress and was eventually intubated. She was placed on vent support. NG tube was inserted. She had an echocardiogram done that showed EF 55% and RVSP of 49. She had a drop in hemoglobin and received blood transfusion. She had elevated LFTs, abdominal CT showed anasarca and densities within the gallbladder probably reflecting tiny gallstones. HIDA scan was negative cystic duct obstruction/acute cholecystitis. Common bile duct was demonstrated to be patent but emptying into the duodenum was delayed until 2 hours. On 09/30/2017 she underwent endoscopic ultrasound. Findings showed dilated common bile duct with lots of sludge in the distal common bile duct and large ascites. Patient will eventually need ERCP however given low platelets unable to do procedure. She received platelet transfusion and on 10/08/2017 underwent an ERCP with stent placement. She was also having difficulty weaning off ventilator support. Dr. Echevarria was consulted for tracheostomy. Procedure was canceled as she had an elevated INR. She was given platelet, vitamin K and fresh frozen plasma transfusion. She eventually had tracheostomy done on 10/13/2017, and bronchoscopy with bronchial alveolar lavage by . On 10/16/2017, she had EGD with PEG tube placement. Her liver enzymes and alkaline phosphatase was elevated. She underwent a repeat ERCP on 10/22/2017, with sphincterotomy, stone removal, stent removal and stent placement. LFTs down trended. She was tolerating tube feeding well. She was given wound care. She was eventually discharged to [facility] FINAL DIAGNOSES: Sepsis Acute cholangitis Acute respiratory failure status post tracheostomy and bronchoscopy on 2017 Acute respiratory distress syndrome Pneumonia Aplastic anemia Parkinson's disease Rheumatoid arthritis Hypertension Urinary tract infection with Escherichia coli Anemia requiring blood transfusion Thrombocytopenia Coagulopathy Gallbladder sludge Diabetes mellitus type 2 Abnormal liver transaminases Jaundice Malnutrition status post PEG placement Altered mental status/acute encephalopathy Left bundle branch block Depression Chemical burn on perineal area DISPOSITION: Patient was discharged to [facility] DISCHARGE MEDICATIONS: Refer to Discharge Medication List. I have been assigned to dictate discharge summary on this account, and I was not involved in the patient's management. Elana Mcclendon NP Oct 31, 2017 16:48
== END 2017-10-29 19:25 | DRG 4 ==
LOC: EDBD 16:42 → EMR 18:25 → EDSEX 19:10 → ICU 19:10 → EDBEDREQ 22:11 → 2W 10-14 16:48 → SDSOVERFLO 10-28 19:51 → 2W 10-28 19:52
PROC: 0BH17EZ Insertion of Endotracheal Airway into Trachea, Via Natural or Artificial Opening (ICD-10-PCS; principal; 2017-09-12)
PROC: 5A1955Z Respiratory Ventilation, Greater than 96 Consecutive Hours (ICD-10-PCS; principal; 2017-09-12)
PROC: BD47ZZZ Ultrasonography of Gastrointestinal Tract (ICD-10-PCS; 2017-09-30 14:29)
PROC: 0DJ08ZZ Inspection of Upper Intestinal Tract, Via Natural or Artificial Opening Endoscopic (ICD-10-PCS; 2017-09-30 14:29)
PROC: 0F7D8DZ Dilation of Pancreatic Duct with Intraluminal Device, Via Natural or Artificial Opening Endoscopic (ICD-10-PCS; 2017-10-01 11:29)
PROC: 0F798DZ Dilation of Common Bile Duct with Intraluminal Device, Via Natural or Artificial Opening Endoscopic (ICD-10-PCS; 2017-10-08)
PROC: 0B9D8ZX Drainage of Right Middle Lung Lobe, Via Natural or Artificial Opening Endoscopic, Diagnostic (ICD-10-PCS; 2017-10-13)
PROC: 0B113F4 Bypass Trachea to Cutaneous with Tracheostomy Device, Percutaneous Approach (ICD-10-PCS; 2017-10-13)
PROC: 0DH63UZ Insertion of Feeding Device into Stomach, Percutaneous Approach (ICD-10-PCS; 2017-10-16)
PROC: 0FC98ZZ Extirpation of Matter from Common Bile Duct, Via Natural or Artificial Opening Endoscopic (ICD-10-PCS; 2017-10-22)
PROC: 0FPB8DZ Removal of Intraluminal Device from Hepatobiliary Duct, Via Natural or Artificial Opening Endoscopic (ICD-10-PCS; 2017-10-22)
PROC: 0F798DZ Dilation of Common Bile Duct with Intraluminal Device, Via Natural or Artificial Opening Endoscopic (ICD-10-PCS; 2017-10-22)
PROC: 0FB13ZX Excision of Right Lobe Liver, Percutaneous Approach, Diagnostic (ICD-10-PCS; 2017-10-24)
DX: A41.9 Sepsis, unspecified organism (principal); J69.0 Pneumonitis due to inhalation of food and vomit; E43 Unspecified severe protein-calorie malnutrition; J96.01 Acute respiratory failure with hypoxia; J18.9 Pneumonia, unspecified organism; G93.40 Encephalopathy, unspecified; J11.00 Influenza due to unidentified influenza virus with unspecified type of pneumonia; J80 Acute respiratory distress syndrome; D61.9 Aplastic anemia, unspecified; Z68.1 Body mass index [BMI] 19.9 or less, adult; E87.1 Hypo-osmolality and hyponatremia; R44.0 Auditory hallucinations; N39.0 Urinary tract infection, site not specified; J44.0 Chronic obstructive pulmonary disease with (acute) lower respiratory infection; D61.818 Other pancytopenia; E87.0 Hyperosmolality and hypernatremia; Z99.11 Dependence on respirator [ventilator] status; R18.8 Other ascites; K80.32 Calculus of bile duct with acute cholangitis without obstruction; D68.9 Coagulation defect, unspecified; R17 Unspecified jaundice; M06.9 Rheumatoid arthritis, unspecified; M81.0 Age-related osteoporosis without current pathological fracture; K57.10 Diverticulosis of small intestine without perforation or abscess without bleeding; R13.10 Dysphagia, unspecified; I11.0 Hypertensive heart disease with heart failure; I50.9 Heart failure, unspecified; G20 Parkinson's disease; B96.20 Unspecified Escherichia coli [E. coli] as the cause of diseases classified elsewhere; E87.70 Fluid overload, unspecified; F32.9 Major depressive disorder, single episode, unspecified; I44.7 Left bundle-branch block, unspecified; F29 Unspecified psychosis not due to a substance or known physiological condition; E11.9 Type 2 diabetes mellitus without complications; K21.9 Gastro-esophageal reflux disease without esophagitis; D69.6 Thrombocytopenia, unspecified; R74.0 Nonspecific elevation of levels of transaminase and lactic acid dehydrogenase [LDH]; K72.90 Hepatic failure, unspecified without coma; F41.9 Anxiety disorder, unspecified; I27.20 Pulmonary hypertension, unspecified; R19.7 Diarrhea, unspecified
CPT/HCPCS: 36415; 36600; 70450; 71045; 71250; 74018; 74176; 74177; 74328; 74329; 74330; 76000; 76700; 76942; 78266; 80048; 80053; 80061; 80150; 80202; 81003; 82140; 82150; 82164; 82248; 82270; 82550; 82553; 82607; 82728; 82746; 82747; 82803; 82962; 82977; 83010; 83036; 83090; 83540; 83550; 83605; 83615; 83690; 83735; 83880; 84100; 84439; 84443; 84484; 84550; 85007; 85025; 85362; 85379; 85384; 85610; 85651; 85730; 86021; 86039; 86140; 86200; 86308; 86431; 86635; 86665; 86705; 86709; 86710; 86787; 86803; 86850; 86900; 86901; 86920; 86927; 87040; 87070; 87075; 87081; 87086; 87116; 87181; 87205; 87324; 87340; 87449; 87496; 87497; 87556; 88104; 93005; 93306; 93970; 94002; 94003; 94150; 94640; 94660; 94664; J1815; J7620; J8499